=== PATIENT | female | born 1940 | race Caucasian/White ===

== ENCOUNTER 2017-10-24 09:47 | Emergency (ER) | payer MEDICARE, SELFPAY ==
[2017-10-24 09:49] VITALS: BP 166/85; PULSE 108; RESP 16; TEMP 36.6; O2SAT 97; BMI 34.0
[2017-10-24 10:12] VITALS: BP 151/108; PULSE 100; RESP 16; O2SAT 96
--- NOTE | 2017-10-24 10:19 | EKG12_ITS ---
Test Reason : HTN Blood Pressure : / mmHG Vent. Rate : 094 BPM Atrial Rate : 094 BPM P-R Int : 158 ms QRS Dur : 080 ms QT Int : 354 ms P-R-T Axes : 036 -03 026 degrees QTc Int : 442 ms Normal sinus rhythm Normal ECG Confirmed by ALEM ROTHMAN, HEATHER ([id number]), communications editor ANNA GÓMEZ ([id number]) on 10/27/2017 10:29:50 AM Referred By: TERRY Confirmed By:HEATHER FERRARA MD
[2017-10-24 10:51] LABS: Absolute Lymphocyte Count 1.13 X10^3/ul (0.83-4.51); Absolute Neutrophil Count 4.7 X10^3/uL (2.0-7.7); Basophil# 0.02 X10^3/uL; Basophil% 0.3 % (0-1); Eosinophil# 0.16 X10^3/uL; Eosinophils% 2.5 % (0-5); Hematocrit 40.3 % (37-47); Hemoglobin 12.7 g/dl (12.0-15.0); Lymphocyte # 1.13 X10^3/ul (4.0); Mean Corp Hgb Conc 31.5 g/gl (32-36); Mean Corpuscular Hgb 27.8 pg (27.0-32.0); Mean Corpuscular Volume 88.2 fL (81-99); Mean Platelet Vol. 9.8 fl (6.2-12.0); Monocyte# 0.21 X10^3/uL; Monocyte% 3.3 % (0-10); Neutrophil # 4.73 X10^3/uL (2.7-7.7); Neutrophil % 75.3 % (47-70); POSITIVE COUNT NO; POSITIVE DIFFERENTIAL NO; POSITIVE MORPHOLOGY NO; Platelet Count 186 K/mm3 (150-450); RBC Distribution Width CV 14.5 % (11.6-14.6); RBC Distribution Width SD 46.9 fl (35.1-43.9); Red Blood Count 4.57 M/mm3 (4.2-5.4); White Blood Count 6.3 K/mm3 (4.4-11.0)
[2017-10-24 10:59] LABS: Anion Gap 7 (5-15); BUN 37 mg/dL (7-18); BUN/Creat Ratio 27.2 RATIO (10-20); Calcium,Total 8.7 mg/dL (8.5-10.1); Chloride 105 mmol/L (98-107); Creatinine, Serum 1.36 mg/dL (0.55-1.02); EST Glomerular Filtration Rate 40 mL/min (>60); Est Glom Filt Rate - Afr Amer 49 mL/min (>60); Estimated Creatinine Clearance 36.78 ml/min; Glucose 244 mg/dL (74-106); Potassium 4.9 mmol/L (3.5-5.1); Sodium Level 141 mmol/L (136-145)
--- NOTE | 2017-10-24 11:31 | ED.VISSUMM ---
- ER Visit Summary Date of Service: 10/24/17 Chief Complaint: Low blood pressure History of Present Illness: The patient is a 76 F treated for insulin-dependent diabetes, A. fib and no history of renal insufficiency. Patient is not treated for hypertension. Her blood pressure today it seems low on several readings. With accelerated heart rate she called her swim coach's office who sent her to ER to be evaluated. Currently says she feels completely fine. She denies any headache, chest pain, shortness of breath, abdominal pain. She denies any nausea, vomiting or diarrhea. She denies any black or bloody stools. She is on Xarelto. Physical Examination: Well-appearing older female current blood pressure is 165/85 otherwise vital signs are stable. She is afebrile. H EENT exam unremarkable. Neck nontender. Lungs clear to auscultation bilaterally. Heart regular rhythm no murmur rate about 95. Abdomen is soft and nontender. Normal bowel sounds no peritoneal signs. She is moving all 4 extremities. They are neurovascularly intact. No edema. No calf tenderness. Neurologically she is awake and alert with no focal deficits. Patient basically has a completely normal exam with normal vital signs. Test Results: EKG shows a sinus rhythm rate of 94. CBC is unremarkable with a white count of 6 and a normal H&H. Chemistry panel shows a normal gap. A 7. Blood sugar 244. BUN and creatinine are 37 and 1.36 she has chronic renal insufficiency and is actually better than her baseline. Emergency Department Course and Treatment: Repeat exam she is doing well. And will be discharged to home. Treatment Plan: Continue current medications and follow up with her primary care physician as needed. Disposition: Discharge Impression: Transient hypotension resolved History of A. fib, diabetes and renal insufficiency This note was generated with [employer] dictation software. It may contain incorrect words, spelling, and punctuation that were not noted in review of the chart prior to signing ED Disposition - Plan for ED Patient: Chief Complaint: Hypotension Referrals: Stefan Gordon MD [Primary Care Provider] -
--- NOTE | 2017-10-24 11:34 | ED.DCSUM_ITS ---
- ER Visit Summary Date of Service: 10/24/17 Chief Complaint: Low blood pressure History of Present Illness: The patient is a 76 F treated for insulin-dependent diabetes, A. fib and no history of renal insufficiency. Patient is not treated for hypertension. Her blood pressure today it seems low on several readings. With accelerated heart rate she called her sales development consultant's office who sent her to ER to be evaluated. Currently says she feels completely fine. She denies any headache, chest pain, shortness of breath, abdominal pain. She denies any nausea, vomiting or diarrhea. She denies any black or bloody stools. She is on Xarelto. Physical Examination: Well-appearing older female current blood pressure is 165/ 85 otherwise vital signs are stable. She is afebrile. H EENT exam unremarkable. Neck nontender. Lungs clear to auscultation bilaterally. Heart regular rhythm no murmur rate about 95. Abdomen is soft and nontender. Normal bowel sounds no peritoneal signs. She is moving all 4 extremities. They are neurovascularly intact. No edema. No calf tenderness. Neurologically she is awake and alert with no focal deficits. Patient basically has a completely normal exam with normal vital signs. Test Results: EKG shows a sinus rhythm rate of 94. CBC is unremarkable with a white count of 6 and a normal H&H. Chemistry panel shows a normal gap. A 7. Blood sugar 244. BUN and creatinine are 37 and 1.36 she has chronic renal insufficiency and is actually better than her baseline. Emergency Department Course and Treatment: Repeat exam she is doing well. And will be discharged to home. Treatment Plan: Continue current medications and follow up with her primary care physician as needed. Disposition: Discharge Impression: Transient hypotension resolved History of A. fib, diabetes and renal insufficiency This note was generated with [employer] dictation software. It may contain incorrect words, spelling, and punctuation that were not noted in review of the chart prior to signing ED Disposition - Plan for ED Patient: Chief Complaint: Hypotension Referrals: Stefan Gordon MD [Primary Care Provider] -
--- NOTE | 2017-10-24 11:34 | ED.DEP ---
ED Disposition - Plan for ED Patient: Disposition: Home or Assisted Living Chief Complaint: Hypotension Instructions: ED Hypotension All Causes Referrals: Stefan Gordon MD [Primary Care Provider] - As Needed Additional Instructions: Return if feeling worse. Your labs and EKG today were all good.
[2017-10-24 11:50] VITALS: BP 125/72; PULSE 86; RESP 20; O2SAT 93
== END 2017-10-24 11:55 | disposition home or self-care (01) ==
PROVIDERS: Emergency Provider Emergency Medicine; Family Provider Family Medicine; PCP Family Medicine
DX: I95.9 Hypotension, unspecified (principal); I48.91 Unspecified atrial fibrillation; E11.22 Type 2 diabetes mellitus 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 chronic kidney disease; N18.9 Chronic kidney disease, unspecified; Z79.01 Long term (current) use of anticoagulants; Z79.4 Long term (current) use of insulin; Z79.899 Other long term (current) drug therapy
CPT/HCPCS: 80048; 85025; 93005; 99284; A4216

== ENCOUNTER 2018-01-05 01:33 | Inpatient (IN) | payer MEDICARE, SELFPAY ==
[2018-01-05] VITALS (13 sets, daily range): BP systolic 94–182; BP diastolic 49–84; PULSE 74–138; RESP 18–28; TEMP 36.4–38.2; O2SAT 93–97; BMI 37.0; BMI 34.6; BMI 34.7
--- NOTE | 2018-01-05 01:42 | ED.RN ---
RN CALLED FOR EKG, PULLED OLD EKG'S FOR
--- NOTE | 2018-01-05 02:01 | EKG12_ITS ---
Test Reason : SHORTNESS OF BREATH Blood Pressure : / mmHG Vent. Rate : 104 BPM Atrial Rate : 104 BPM P-R Int : 142 ms QRS Dur : 078 ms QT Int : 352 ms P-R-T Axes : 038 -08 021 degrees QTc Int : 462 ms Sinus tachycardia Voltage criteria for left ventricular hypertrophy Abnormal ECG Confirmed by ALEM ROTHMAN, HEATHER ([id number]), society editor ANNA GÓMEZ ([id number]) on 01/08/2018 2:27:15 PM Referred By: PETTY Confirmed By:HEATHER FERRARA MD
--- NOTE | 2018-01-05 02:01 | CT_ITS ---
STUDY: CT ABDOMEN AND PELVIS WITHOUT CONTRAST REASON FOR EXAM: Female, 77 years old. Shortness of breath and right-sided abdominal pain RADIATION DOSAGE (If Supplied By Facility): CTDIvol = ( 22.92 ) mGy, DLP = ( 1322.89 ) mGycm TECHNIQUE: Transaxial images were obtained from the dome of the diaphragm to the symphysis pubis without oral contrast, and without intravenous contrast. Sagittal and coronal images were reconstructed. Individualized dose optimization techniques were used for this CT. COMPARISON: None. FINDINGS: Minimal atelectasis at bilateral lung bases. Borderline cardiomegaly. No pericardial effusion. Hypoattenuated foci in the left lateral and right posterior hepatic segments, too small to characterize. Subtle high attenuation material layering in the dependent portion of the gallbladder with mild associated gallbladder distention. No pericholecystic fluid. Normal spleen. Normal pancreas. Normal bilateral adrenal glands. Normal right kidney. Normal left kidney. Normal bilateral ureters. Normal visualized stomach. Normal small intestine. Minimal diverticular disease of the sigmoid colonic segment without inflammation. The appendix is visualized and appears normal. Normal abdominal aorta. Normal inferior vena cava. Shotty retroperitoneal and root of the mesentery lymph nodes with mild associated fat stranding. Normal urinary bladder. Uterus and bilateral adnexa are unremarkable. Normal abdominal wall. Moderate multilevel degenerative change of the spine. CT/Abdomen/Pelvis without Cont IMPRESSION: 1. Sludge within a mildly distended gallbladder but without definitive evidence of acute cholecystitis. 2. Minimal sigmoid colonic diverticulosis with no CT evidence of acute diverticulitis. 3. Shotty retroperitoneal and root of the mesentery lymph nodes with subtle hazy fat stranding, potentially representing a mesenteric panniculitis. 4. Hypoattenuated foci in the liver which are too small to characterize but which likely represent cysts versus hemangiomas MR which could be further characterized by MR imaging of the liver.. Electronically Signed: Mat Lee MD at 3:40 EDT Tel , Service support ,
--- NOTE | 2018-01-05 02:05 | RAD_ITS ---
STUDY: X-RAY CHEST REASON FOR EXAM: Female, 77 years old. Shortness of breath TECHNIQUE: Single AP portable view of the chest. COMPARISON: 02/05/2015 FINDINGS: No airspace infiltration. Mild elevation of the left hemidiaphragm, unchanged. No pleural effusion or pneumothorax. Normal size heart. Normal mediastinum and radames. Normal visualized pulmonary arteries. Normal visualized aortic arch and descending thoracic aorta. There are diffuse degenerative changes of the visualized thoracic spine. Normal visualized ribs, clavicles, and shoulders. There is no demonstrated abnormality of the visualized soft tissue structures of the upper abdomen. RAD/Chest 1 View IMPRESSION: No evidence of acute cardiopulmonary disease. Electronically Signed: Mat Lee MD at 2:55 EDT Tel , Service support ,
[2018-01-05] MEDS: Morphine 4 MG/ML Syringe IV (02:17)
[2018-01-05] MEDS: 0.9% Normal Saline 1,000 ML 125 ML IV ×3 (02:17→16:19)
[2018-01-05] MEDS: Ondansetron 4 MG/2 ML Vial IV (02:17)
[2018-01-05 02:29] LABS: Absolute Lymphocyte Count 0.23 X10^3/ul (0.83-4.51); Absolute Neutrophil Count 13.3 X10^3/uL (2.0-7.7); Basophil# 0.01 X10^3/uL; Basophil% 0.1 % (0-1); Eosinophil# 0.02 X10^3/uL; Eosinophils% 0.1 % (0-5); Hematocrit 34.4 % (37-47); Hemoglobin 11.4 g/dl (12.0-15.0); Lymphocyte # 0.23 X10^3/ul (4.0); Lymphocyte % 1.7 % (19-41); Mean Corp Hgb Conc 33.1 g/gl (32-36); Mean Corpuscular Hgb 28.4 pg (27.0-32.0); Mean Corpuscular Volume 85.6 fL (81-99); Mean Platelet Vol. 10.8 fl (6.2-12.0); Monocyte# 0.12 X10^3/uL; Monocyte% 0.9 % (0-10); Neutrophil # 13.32 X10^3/uL (2.7-7.7); Neutrophil % 96.8 % (47-70); Platelet Count 261 K/mm3 (150-450); RBC Distribution Width CV 14.9 % (11.6-14.6); RBC Distribution Width SD 45.9 fl (35.1-43.9); Red Blood Count 4.02 M/mm3 (4.2-5.4); White Blood Count 13.8 K/mm3 (4.4-11.0)
[2018-01-05 02:30] LABS: Differential Indicated SCAN CRITERIA MET; POSITIVE COUNT NO; POSITIVE DIFFERENTIAL YES; POSITIVE MORPHOLOGY NO
[2018-01-05 02:47] LABS: AST(SGOT) 156 U/L (15-37); Alanine Aminotransfer ALT/SGPT 201 U/L (13-56); Albumin, Serum 2.9 g/dL (3.2-5.0); Alkaline Phosphatase 440 U/L (45-117); Anion Gap 8 (5-15); BUN 38 mg/dL (7-18); BUN/Creat Ratio 20.3 RATIO (10-20); Bilirubin, Direct 4.32 mg/dL (0.00-0.30); Calcium,Total 8.3 mg/dL (8.5-10.1); Chloride 99 mmol/L (98-107); Creatinine, Serum 1.87 mg/dL (0.55-1.02); EST Glomerular Filtration Rate 28 mL/min (>60); Est Glom Filt Rate - Afr Amer 34 mL/min (>60); Estimated Creatinine Clearance 23.59 ml/min; Globulin 4.5 g/dL (2.2-4.2); Glucose 378 mg/dL (74-106); Lipase 361 U/L (73-393); Potassium 4.4 mmol/L (3.5-5.1); Protein, Total 7.4 g/dL (6.4-8.2); Sodium Level 134 mmol/L (136-145)
[2018-01-05] MEDS: 0.9% Normal Saline 1,000 ML 1000 ML IV (03:15)
--- NOTE | 2018-01-05 03:54 | ED.VISSUMM ---
- ER Visit Summary Date of Service: 01/05/18 Chief Complaint: [] Right upper rib pain with shortness of breath History of Present Illness: The patient is a 77 F with right upper rib pain that has been taken her breath away since 10:11 PM. It comes and goes over last several days. She saw her physician spa assistant manager in the office today who manipulated her right rib. She stated that it helped and the pain went away and came back tonight. She tried 2 Tylenol earlier today. She had one episode of emesis tonight. She is on Xarelto history of remote A. fib. Physical Examination: [] Vital signs reviewed General: Well-nourished well-developed Head: Normocephalic atraumatic Eyes: Pupils equal round and reactive to light extraocular movements intact ENT: TMs clear no hemotympanum no trauma Neck: Nontender full range of motion Cardiovascular: Regular rate rhythm no murmurs normal S1-S2 Respiratory: No distress clear to auscultation bilaterally chest nontender Abdomen: Soft tender right upper quadrant epigastric. No guarding or rebound normal bowel sounds no masses Back: Nontender no CVA tenderness Extremities: Nontender active range of motion ?4 extremities no trauma Skin: Normal color no trauma Neuro alert oriented cranial nerves II through XII intact normal strength sensation reflexes Test Results: [] Emergency Department Course and Treatment: [] Lab work shows LFTs elevated with a total bili 5.3 direct bili 4.3. Lipase negative. CBC normal except white count 13.8. Left shift noted. Chemistries normal except sodium 134 creatinine 1.8. Glucose 378. Troponin negative. EKG shows sinus at 104 without ischemic findings. Chest x-ray shows nothing acute. CT abdomen pelvis shows sludge with a mildly distended gallbladder. No pericholecystic fluid. Liver shows hypoattenuated foci cyst versus hemangioma. At this time I think the patient likely has biliary colic with possible choledocholithiasis and possible cholecystitis. She was given a dose of Zosyn as well as Zofran and morphine and will be admitted for further evaluation and treatment by Dr. Bojorquez. Treatment Plan: [] Disposition: [] Impression: [] Biliary colic with suspected choledocholithiasis Chronic renal insufficiency This note was generated with [employer] software. It may contain incorrect words, spelling, and punctuation that were not noted in review of the chart prior to signing ED Disposition - Plan for ED Patient: Chief Complaint: Shortness of Breath Referrals: Stefan Gordon MD [Primary Care Provider] -
[2018-01-05] MEDS: Piperacil/Tazobactam 3.375 GM/50 ML ML IV ×3 (04:17→22:19)
[2018-01-05] MEDS: Insulin Lispro 100 UNIT/ML INSULN.PEN 10 UNIT SC (04:17)
[2018-01-05 05:26] LABS: Bedside Glucose 373 mg/dL (70-110)
--- NOTE | 2018-01-05 06:56 | ECHOD_ITS ---
Reason For Study: Congenital heart disease Procedure This was a 2D Doppler, Color Flow transthoracic echocardiogram. The exam was of adequate technical quality. Exam performed portable in patient room. Left Ventricle Normal LV size. Sigmoid septum. Mid cavitary false tendon noted. Left ventricular systolic function is normal. The estimated ejection fraction is 65 %. No regional wall motion abnormalities noted. Right Ventricle Normal RV size. Normal systolic function. Atria The left atrium is mildly enlarged. Normal right atrium. No doppler evidence for ASD. Mitral Valve There is mild mitral annular calcification. Normal mitral valve. Mild (1+) mitral valve insufficiency. Tricuspid Valve Normal tricuspid valve. Mild tricuspid valve insufficiency. Aortic Valve Trisinus/trileaflet aortic valve. Normal aortic valve. Pulmonic Valve The pulmonic valve is not well visualized. Trivial pulmonic valve insufficiency. Great Vessels Normal sized aortic root. Calcified aortic root. Pericardium/Pleural No pericardial effusion. MMode/2D Measurements & Calculations LVIDd: 3.2 cm IVSd: 1.9 cm Ao root diam: 3.0 cm LVIDs: 2.6 cm LVPWd: 0.95 cm LA dimension: 3.6 cm RVDd: 3.3 cm FS: 18.5 % LAV(MOD-bp): 77.1 ml LA A4 area: 23.2 cm2 RA A4 area: 12.7 cm2 LAV(MOD-bp) Indexed: 35.8 ml/m2 LAV(MOD-sp2): 78.8 ml LAV(MOD-sp4): 69.2 ml Doppler Measurements & Calculations MV E max cirilo: 74.0 cm/sec Lat Peak E' Cirilo: 8.6 cm/sec Med Peak E' Cirilo: 5.5 cm/sec MV A max cirilo: 104.6 cm/sec E/E' lat: 8.6 E/E' med: 13.5 MV E/A: 0.71 Ao V2 max: 140.1 cm/sec LV V1 max: 112.1 cm/sec PA V2 max: 100.8 cm/sec Ao max P.9 mmHg LV V1 max P.0 mmHg Interpretation Summary Left ventricular systolic function is normal. The estimated ejection fraction is 65 %. Sigmoid septum. Mid cavitary false tendon noted. The left atrium is mildly enlarged. There is mild mitral annular calcification. Mild (1+) mitral valve insufficiency. Mild tricuspid valve insufficiency. Trivial pulmonic valve insufficiency. Calcified aortic root. Diastolic function: considered indeterminate. Ordering Physician: Chrissy Zimmerman Referring Physician: Stefan Gordon Performed By: Patito Moraes RDCS
--- NOTE | 2018-01-05 07:00 | US_ITS ---
STUDY: ABDOMINAL ULTRASOUND - RIGHT UPPER QUADRANT REASON FOR VISIT: Female, 77 years old. CHOLECYSTITIS F/U CT DONE TODAY GENERAL INTERMITTENT ABD PAIN TECHNIQUE: Ultrasound evaluation of the right upper quadrant was performed with real-time and static silva-scale imaging. TECHNICAL QUALITY: Adequate. COMPARISON: CT earlier in the day FINDINGS: Liver: The liver measures 17.5 cm. There is normal echogenicity of the liver. The bile ducts are within normal limits. There is hepatic color flow. The direction of portal flow is hepatopetal. There is no demonstrated mass lesion. Gallbladder: Normal distended gallbladder. The gallbladder wall measures 3.0 mm. There is a negative sonographic Birch's sign. There is no pericholecystic fluid. There is gallbladder sludge and multiple stones. Common Bile Duct (C.B.D.): The common bile duct measures 4.8 mm. Pancreas: Normal size of the head, body and tail of the pancreas. There is normal echogenicity of the pancreas. There is no demonstrated pancreatic mass or cyst. Right Kidney: Normal size of the right kidney. The right kidney measures 10.2 cm. Normal renal cortex. The right cortex measures 1.7 cm. There is no demonstrated renal mass or cyst. There is no right hydronephrosis. US/Gallbladder IMPRESSION: There is gallbladder sludge and multiple stones. Electronically Signed: Ai Caruso MD at 12:35 EDT , Service support ,
[2018-01-05] MEDS: 0.9% Normal Saline 1,000 ML 999 ML IV (07:04)
--- NOTE | 2018-01-05 07:11 | PN_ITS ---
Vitals/I&O's: Vital Signs Temp Pulse Resp BP Pulse Ox 99.5 F H 98 20 H 94/50 L 93 01/05/18 06:25 01/05/18 06:25 01/05/18 06:25 01/05/18 06:25 01/05/18 06:25 Oxygen Delivery Method Room Air Weight: 227 lb 15.327 oz Body Mass Index (BMI) 34.6 Intake and Output for Last 24 Hours 01/03/18 01/04/18 01/05/18 23:59 23:59 23:59 Intake Total 966 / 966 Balance 966 / 966 Laboratory Results 01/05/18 05:14: POC Glucose 373 H Current Medications Acetaminophen (Tylenol) 650 mg PO Q6H PRN PRN PRN Reason: Non-cardiac pain (mod-severe) Hydrocodone Bitart/Acetaminophen ([place] 5mg-325mg) 1 - 2 tablet PO Q6H PRN PRN PRN Reason: Moderate-severe pain [facility] Amitriptyline HCl (Elavil) 20 mg PO QHS [facility] Carvedilol (Coreg) 50 mg PO BID [facility] Gabapentin (Neurontin) 300 mg PO 4X/DAY [facility] Hydralazine HCl (Apresoline Iv) 10 mg IV Q4H PRN PRN PRN Reason: SBP > 160 Sodium Chloride () 250 mls @ 15 mls/hr IV .[id number] PRN PRN Reason: SALINE FLUSH Sodium Chloride () 1,000 mls @ 75 mls/hr IV .[id number] [facility] Last Admin: 01/05/18 05:23 Dose: Not Given Sodium Chloride () 1,000 mls @ 999 mls/hr IV .Q1H1M ONE Stop: 01/05/18 07:53 Last Admin: 01/05/18 07:04 Dose: 999 mls/hr Sodium Chloride () 1,000 mls @ 125 mls/hr IV .Q8H [facility] Piperacillin Sod/Tazobactam Sod (Zosyn) 3.375 gm in 50 mls @ 12.5 mls/hr IV Q8 [facility] Pantoprazole Sodium 40 mg/ (Sodium Chloride) 110 mls @ 330 mls/hr IV Q12 [facility] Insulin Human Lispro (Humalog Kwikpen (Bkc)) 0 unit SC ACHS [facility] PRN Reason: Protocol Morphine Sulfate () 2 - 4 mg IV Q1H PRN PRN PRN Reason: SEVERE PAIN (6-1010) Morphine Sulfate () 2 - 4 mg IV Q1H PRN PRN PRN Reason: SEVERE PAIN (6-1010) Non-Formulary Medication (Insulin Glargine,Hum.Rec.Anlog) 20 unit SC QHS [facility] Ondansetron HCl (Zofran) 4 mg IV Q8H PRN PRN Sodium Chloride () 5 - 30 ml IV UD PRN PRN Reason: SALINE FLUSH Medical Necessity - Tobacco Use Smoking Status: Never smoker Assessment/Plan All Active Problems Dehydration (Acute) Diarrhea (Acute) TAWANDA (acute kidney injury) (Acute)
--- NOTE | 2018-01-05 07:51 | HP.PCM_ITS ---
History and Physical Date of Admission: 01/05/18 77 year old WF presents with intermittant right upper quadrant abdominal pain. Described as sharp in the right upper quadrant of the abdomen, 8- 10 on scale of 1-10 with 10 being the worst. Worst with deep breaths. Noted one episode two weeks ago, another a few days ago, and then had severe episode last night which prompted visit to ED. In ED, found to have elevated LFTs, and elevated WBC. Pain resolved with one dose of morphine. CT scan revealed sludge in gallbladder. US pending this morning. Does not have history of hypertension, but ED BP was 120/67. Presented to [facility] with systolic BP in 90s. Given IV bolus of fluid with some improvement. Hospitalists consulted for perioperative medical management. Patient on xarelto for chronic afib. fHistory of GERD, AF, anxiety, OA, DM2 neuro, CKD, PVD, chronic anticoag 09/27/16 nuclear stress test with ischemia, EF 67%. Hx afib controlled rate, on Xarelto. 11/10/17 hgba1c 6.8%. 09/02/17 BUN 26, creat 1.0 GFR 49. Has sister with gallbladder disease. ?? ? PAST MEDICAL HISTORY Acute gastritis without mention of hemorrhage ? Anemia, unspecified ? Anxiety state, unspecified ? Atrial fibrillation (HCC) ? B12 deficiency ? Diverticulosis of colon (without mention of hemorrhage) ? Esophageal reflux ? Generalized osteoarthrosis, unspecified site ? Gout ? Hemorrhage of gastrointestinal tract, unspecified ? Iron deficiency anemia, unspecified ? Migraine without aura ?has been quiescent since menopause. Other and unspecified hyperlipidemia ? Type II or unspecified type diabetes mellitus without mention of complication , uncontrolled ? ?? PAST SURGICAL HISTORY CARPAL TUNNEL 05/18 left COLONOSCOP W/ OR W/O [facility] SPEC? 04/14/2005 COLONOSCOP W/ OR W/O [facility] SPEC 01/21/2016 EGD W/O [facility] SPECIMEN W/BX ? PAST SURGICAL HISTORY OF ? 1967 right breast cyst benign PAST SURGICAL HISTORY OF 2010 Rt carpal tunnel PAST SURGICAL HISTORY OF ? 12/2016 cataract surgery right eye REMOVAL OF TONSILS,<12 Y/O TOTAL KNEE REPLACEMENT 07/23/2007 Knee replacement, total right CURRENT MEDICATIONS colestipol (COLESTID) 1 gram tablet Take 1 tablet by mouth twice daily with meals. Disp: 180 tablet Rfl: 3 VICTOZA 3-PATRICK 0.6 mg/0.1 mL (18 mg/3 mL) pnij INJECT 1.2 MG UNDER THE SKIN ONCE DAILY Disp: 18 mL Rfl: 3 amitriptyline (ELAVIL) 10 mg tablet TAKE 2 TABLETS DAILY AT BEDTIME Disp: 180 tablet Rfl: 2 lansoprazole (PREVACID) 30 mg capsule TAKE 1 CAPSULE EVERY MORNING BEFORE EATING Disp: 90 capsule Rfl: 3 carvedilol (COREG) 25 mg tablet TAKE 2 TABLETS TWICE A DAY Disp: 360 tablet Rfl: 3 XARELTO 15 mg tablet TAKE 1 TABLET DAILY WITH DINNER Disp: 90 tablet Rfl: 3 insulin glargine (LANTUS) 100 unit/mL (3 mL) inpn Inject 20 Units subcutaneously daily at bedtime. Disp: 15 Pen Rfl: 3 gabapentin (NEURONTIN) 300 mg capsule Take 1 capsule by mouth four times daily. Disp: 360 capsule Rfl: 3 glimepiride (AMARYL) 4 mg tablet Take 0.5 tablets by mouth once daily. Disp : 90 tablet Rfl: 3 allopurinol (ZYLOPRIM) 100 mg tablet Take 2 tablets by mouth once daily. Disp: 180 tablet Rfl: 3 Cholecalciferol, Vitamin D3, 1,000 unit cap Take 1 capsule by mouth once daily. Disp: 1 capsule Rfl: 0 psyllium Husk (FIBER-CAPS) 0.52 g ORAL capsule Take 2 capsules by mouth once daily. Disp: Rfl: 0 multivitamins w-iron(FLINTSTONES PLUS IRON CHEWABLE TAB) Take one(1) tablet daily with meal. Disp: Rfl: 0 colestipol (COLESTID) 1 gram tablet Take 1 tablet by mouth twice daily with meals. Disp: 60 tablet Rfl: 0 cyanocobalamin 1,000 mcg/mL soln INJECT 1 MILLILITER INTRAMUSCULARLY ONCE A MONTH Disp: 1 mL Rfl: 12 ? SOCIAL HISTORY Marital status: Single Spouse name: Years of education: Number of children: 0 ?Occupational History Occupation Employer Comment [employer] ?Social History Main Topics Smoking status: Never Smoker ? Smokeless tobacco: Never Used Alcohol use: No Drug use: No Sexual activity: Not Currently ? FAMILY HISTORY Heart Brother ? Cancer Maternal Grandfather ? Heart Mother ? Heart Father ? Cancer Paternal Grandfather sister had gallbladder removed ? ? REVIEW OF SYSTEMS: General - denies fevers, denies weight loss, denies anorexia Cardiovascular denies chest pain, denies history of heart attack Pulmonary has shortness of breath, denies coughing up blood Gastrointestinal as per HPI, denies blood in stools, has hiatal hernia with acid indigestion on PPI Neurological denies numbness/weakness of extremities, denies seizures, denies history of stroke Genitourinary denies burning with urination, denies blood in urine Hematological on xarelto, denies spontaneous/prolonged bleeding Skin denies open non healing wounds Musculoskeletal denies history of fractures, has hip and back pain, had knee replacement Endocrine has diabetes Psychological denies hallucinations PHYSICAL EXAM: BP 120/67 Pulse 84 Temp 100.7F Resp 20 Wt 100.7 kg (222 lb) SpO2 95% BMI 33.75 kg/m? Pleasant obese older woman in good spirits but moderate pain distress with movement. Alert and oriented all spheres. Normal affect and cognition. Speech normal. No deficits to learning or comprehension. Skin warm, dry, pink to lips and nailbeds. Normal turgor. Respirations regular and unlabored. HEENT WNL. TM's clear. Nose and oropharynx free from injection or lesion. No cervical lymph nodes. Thyroid non-tender, no masses. No JVD. Chest CTA. Heart regular with occasional ectopic. Chest wall tender along lower anterior ribs to posterior spine. TTPs lower thoracic. Abd: soft and obese, tender to deep palpation in the right upper quadrant but no peritoneal signs, normal bowel sounds Extrem: no clubbing, cyanosis, tr pitting edema ankles. Extremities are warm and pink with prompt capillary refill. ? IMPRESSION: presumed cholecystitis based upon symptoms - pending US gallbladder on xarelto ASSESSMENT/PLAN: admit as inpatient hospitalist consultation for medical management US gallbladder pending May need MRCP for elevated LFTs evaluation, if questionable US of gallbladder continue antibiotics for presumed cholecystitis IV hydration, NPO for now I have discussed above plan with patient and she is in agreement. I have answered all her questions to her satisfaction and I have asked if she has any questions and she states she has no further questions.
[2018-01-05 08:12] LABS: Magnesium 1.2 mg/dL (1.6-2.6)
[2018-01-05 08:16] LABS: Bedside Glucose 349 mg/dL (70-110)
[2018-01-05 08:20] LABS: Lactic Acid 1.4 mmol/L (0.4-2.0)
[2018-01-05] MEDS: Insulin Lispro 100 UNIT/ML INSULN.PEN SC (08:20)
[2018-01-05 08:21] LABS: Hemoglobin A1c 7.4 % (4.2-6.3)
[2018-01-05] MEDS: Gabapentin 300 MG Capsule PO ×4 (08:21→21:48)
--- NOTE | 2018-01-05 09:00 | PCM.CONS.GEN ---
Problem List (1) Abdominal pain Status: Acute Reason for Consult Date of Consultation: 01/05/18 Reason for Consultation: medical management History of Present Illness: The patient is a 77 year old F with a history of atrial fibrillation on Coumadin, hypertension, GERD, diabetes mellitus and CKD stage III. She was admitted by the ED on 01/05/2018 with complaint of right upper quadrant pain which started around midnight prior to presentation. Pain was sharp, nonradiating, rated about 9/10, with no aggravating or relieving factors. She had associated subjective fever and chills and also had nausea and vomiting. She denied any diarrhea. She also denied any yellowing of her eyes, and history of gallstones or color cystitis. She has not noticed any weight loss and denies any history of cancer. She had had similar pain the day prior to presentation and thought it was right upper rib pain and went to see her primary care doctor in his office. She says she had manipulation of her right rib done and subsequently she had an x-ray which showed everything was normal and pain subsided. Pain is adequately recurred around midnight she presented about 6 hours later. Vitals done in the ED showed temperature of 98.8F Fahrenheit, BP of 182/84, [place] of 107 and RR of 28. Labs showed elevated LFTs with total bilirubin of 5.3 and direct bilirubin of 4.3. Lipase was negative. CBC showed white cell count of 13.8 with left shift. Chemistries showed sodium of 134 and creatinine of 1.8 and glucose was 378. Initial troponins done was negative and EKG showed sinus tachycardia with left ventricular hypertrophy. Chest x-ray was negative and CT of the abdomen and pelvis showed sludge with a mildly distended gallbladder and no pericholecystic fluid; liver showed hypoattenuated foci cyst versus hemangioma. Patient was admitted under general surgery to be managed for possible choledocholithiasis with cholecystitis and was given a dose of 0%. Patient's blood pressure subsequently dropped to the 90s systolic and at the point hospitalist service was consulted for medical management. She was given a dose of IV fluid bolus 500 cc. . She still complaining of the right upper quadrant pain but said it was much better after being given pain meds. She complained of subjective fever and chills. Hasnt rahman any vomiting since admission. 12 point Review of systems otherwise negative. Xarelto. 2D echo ordered on account of hypotension. She denies any recent travel, any swelling in her lower extremities. Any chest pain associated with a drop in blood pressure or shortness of breath. [] Past Medical History Past Medical History (Chronic Problems): Chronic Problems Generalized anxiety disorder (Chronic) Generalized osteoarthritis (Chronic) Hyperlipidemia (Chronic) Type 2 diabetes mellitus (Chronic) Allergies iodine Allergy (Verified 01/05/18 01:34) Hives simvastatin Allergy (Verified 01/05/18 01:34) Other Home Medications: Ambulatory Orders Medication Instructions Recorded Allopurinol [Zyloprim] 200 mg PO DAILYCM 07/04/13 Amitriptyline HCl [Elavil] 20 mg PO QHS 07/04/13 Cholecalciferol (Vitamin D3) 1,000 unit PO DAILY 07/04/13 [Vitamin D3] Cyanocobalamin (Vitamin B-12) 1,000 mcg IM QMONTH 07/04/13 [Vitamin B-12] Gabapentin [Neurontin] 300 mg PO 4X/DAY 07/04/13 Glimepiride [Amaryl] 2 mg PO DAILY 07/04/13 Lansoprazole [Prevacid] 30 mg PO DAILY 07/04/13 Psyllium Husk [Metamucil] 2 cap PO LUNCH 07/05/13 Colestipol Tablet [Colestid Tablet] 1 gm PO BIDCM 02/05/15 Insulin Glargine,Hum.rec.anlog 20 unit SC QHS 02/05/15 [Lantus] Liraglutide [Victoza 2-Paulie] 1.2 mg SQ DAILY 02/05/15 Multivitamin with Iron [One Daily 1 each PO DAILY 02/05/15 Plus Iron] Carvedilol [Coreg (Beta Aminah)] 50 mg PO BID 01/05/18 Rivaroxaban [Xarelto] 15 mg PO QHS 01/05/18 Surgical History: total knee arthroplasty, - - OZ, cyst removal from the breast which was benign, tonsillectomy Smoking Status: Never smoker - *Family History Paternal History Items: Heart Disease Review of Systems Constitutional: Reports: Chills, Fever. Denies: Anorexia, Malaise, Weakness Eyes: Denies: Blurred vision HEENT: Denies: Head Aches, Sinus Congestion, Sinus Drainage Cardiovascular: Denies: Chest Pain, Edema, Light Headedness, Orthopnea, Palpitations, Paroxysmal Noc. Dyspnea Respiratory: Denies: Cough, Pleuritic Pain, Shortness of Breath, Shortness of breath at rest, Sputum production Gastrointestinal: Reports: Abdominal Pain - RUQ pain, Nausea, Vomiting. Denies: Diarrhea, Dyspepsia, Hematemesis, Melena Genitourinary: Denies: Dysuria Musculoskeletal: Denies: Joint Pain, Joint Tenderness Skin: Denies: Jaundice, Rash, Wounds Neurological: Denies: Numbness, Tingling, Focal weakness Psychiatric: Denies: Anxiety, Depression, Homicidal Ideations, Suicidal Ideations Hematologic/ Lymphatic: Denies: Easy Bruising, Easy Bleeding Patient Problems: Active and Suspected Problems Abdominal pain (Acute) - Physical Exam General: Alert, Oriented x3, Cooperative, No apparent distress HEENT: Atraumatic, PERRLA, EOMI, Normocephalic, - - jaundiced sclera Oral: Dry Mucosa Neck: Supple, No JVD, Negative Carotid Bruits Lungs: Clear to auscultation, Normal air movement, No rhonchi, No wheeze, No rales Cardiovascular: Regular rate, Regular Rhythm, Normal S1, Normal S2, No murmurs Abdomen: Bowel Sounds Present, Soft, Non Tender, Non-Distended, No Hepato-splenomegaly, - - Birch's sign negative Extremities: No clubbing, No cyanosis, No edema, Capillary Refill Less than 3 Seconds Skin: No rashes, No breakdown, - - tinge of jaundice Musculoskeletal: No Tenderness to Palpation of Joints or Extremities Lymphatic: No Cervical, Supraclavicular, or Inguinal Adenopathy Neurological: Cranial nerves II-XII grossly intact, Motor Exam 5/5 strength throughout Psych/Mental Status: Normal Affect, Appropriate, Alert and oriented to time, place, person, mood and affect Vital Signs Temp Pulse Resp BP Pulse Ox 98.6 F 94 18 114/64 95 01/05/18 07:43 01/05/18 08:25 01/05/18 07:43 01/05/18 08:25 01/05/18 07:43 Oxygen Delivery Method Room Air Weight: 227 lb 15.327 oz Body Mass Index (BMI) 34.6 Intake and Output for Last 24 Hours 01/03/18 01/04/18 01/05/18 23:59 23:59 23:59 Intake Total 966 / 966 Output Total 100 / 100 Balance 866 / 866 Laboratory Tests Past 24 Hrs 01/05/18 01/05/18 01/05/18 07:15 07:15 07:15 Hemoglobin A1c 7.4 H Lactic Acid 1.4 Magnesium 1.2 L POC Glucose 01/05/18 01/05/18 08:02 05:14 POC Glucose 349 H 373 H Laboratory Tests 01/05/18 01/05/18 01/05/18 02:19 02:19 05:14 WBC 13.8 H RBC 4.02 L Hgb 11.4 L Hct 34.4 L MCV 85.6 MCH 28.4 MCHC 33.1 RDW 14.9 H RDW Differential 45.9 H Plt Count 261 MPV 10.8 Immature Gran % (Auto) 0.400 Neut % (Auto) 96.8 H Lymph % (Auto) 1.7 L [place] % (Auto) 0.9 Eos % (Auto) 0.1 Baso % (Auto) 0.1 Absolute Neuts (auto) 13.3 H Absolute Lymphs (auto) 0.23 L Total Counted Not Reportable Sodium 134 L Potassium 4.4 Chloride 99 Carbon Dioxide 27.0 Anion Gap 8 BUN 38 H Creatinine 1.87 H Estim Creat Clear Calc 23.59 Est GFR (MDRD) Af Amer 34 L Est GFR (MDRD) Non-Af 28 L BUN/Creatinine Ratio 20.3 H Glucose 378 H Hemoglobin A1c Lactic Acid Calcium 8.3 L Magnesium Total Bilirubin 5.30 H Direct Bilirubin 4.32 H AST 156 H ALT 201 H Alkaline Phosphatase 440 H Troponin I < 0.015 Total Protein 7.4 Albumin 2.9 L Globulin 4.5 H Lipase 361 POC Glucose 373 H 01/05/18 01/05/18 01/05/18 07:15 07:15 07:15 WBC RBC Hgb Hct MCV MCH MCHC RDW RDW Differential Plt Count MPV Immature Gran % (Auto) Neut % (Auto) Lymph % (Auto) [place] % (Auto) Eos % (Auto) Baso % (Auto) Absolute Neuts (auto) Absolute Lymphs (auto) Total Counted Sodium Potassium Chloride Carbon Dioxide Anion Gap BUN Creatinine Estim Creat Clear Calc Est GFR (MDRD) Af Amer Est GFR (MDRD) Non-Af BUN/Creatinine Ratio Glucose Hemoglobin A1c 7.4 H Lactic Acid 1.4 Calcium Magnesium 1.2 L Total Bilirubin Direct Bilirubin AST ALT Alkaline Phosphatase Troponin I Total Protein Albumin Globulin Lipase POC Glucose 01/05/18 08:02 WBC RBC Hgb Hct MCV MCH MCHC RDW RDW Differential Plt Count MPV Immature Gran % (Auto) Neut % (Auto) Lymph % (Auto) [place] % (Auto) Eos % (Auto) Baso % (Auto) Absolute Neuts (auto) Absolute Lymphs (auto) Total Counted Sodium Potassium Chloride Carbon Dioxide Anion Gap BUN Creatinine Estim Creat Clear Calc Est GFR (MDRD) Af Amer Est GFR (MDRD) Non-Af BUN/Creatinine Ratio Glucose Hemoglobin A1c Lactic Acid Calcium Magnesium Total Bilirubin Direct Bilirubin AST ALT Alkaline Phosphatase Troponin I Total Protein Albumin Globulin Lipase POC Glucose 349 H Diagnostic Data Abdomen/Pelvis CT 01/05/18 02:01 IMPRESSION: 1. Sludge within a mildly distended gallbladder but without definitive evidence of acute cholecystitis. 2. Minimal sigmoid colonic diverticulosis with no CT evidence of acute diverticulitis. 3. Shotty retroperitoneal and root of the mesentery lymph nodes with subtle hazy fat stranding, potentially representing a mesenteric panniculitis. 4. Hypoattenuated foci in the liver which are too small to characterize but which likely represent cysts versus hemangiomas MR which could be further characterized by MR imaging of the liver.. Electronically Signed: Mat Lee MD at 3:40 EDT Tel , Service support , Chest X-Ray 01/05/18 02:05 IMPRESSION: No evidence of acute cardiopulmonary disease. Electronically Signed: Mat Lee MD at 2:55 EDT Tel , Service support , Assessment/Plan All Active Problems Abdominal pain (Acute) Dehydration (Acute) Diarrhea (Acute) TAWANDA (acute kidney injury) (Acute) 1. Acute choledocholithiasis and cholecycstitis genral surgery on board CT showed sludge in the gallbladder LFTs: Total kane-5.1, direct kane 4.3, gallbladder USG pending wbc also elevated at 13.8 on IV antibiotics-zosyn NPO, being hydrated with IVF NS @ 125cc/hr may benefit from MRCP per surgery, based on gallbladder findings on IV morphine for pain 2. Paroxysmal A. fib On Xarelto. Last took it night. Will hold Xarelto in anticipation of surgery for cholecystitis. Was tachycardic on admission. EKG showed sinus tachycardia with left ventricular hypertrophy criteria. BP meds on hold on account of hypotension- Coreg, 3. Hypotension: cause unclear. BP went down to 90s from 180s on admission. Improved with IV fluid administration. Currently being hydrated with IV fluids. 4. Diabetes mellitus Currently n.p.o. Accu-Cheks q6 ISS; will hold lantus 20IU qhs 5. history of gout: stable. On allopurinol 6. ?CHF patient denies she has CHF, but it is documented in her notes echo ordered o/a of hypotension, and also to assess cardiac function before surgery 7. GI prophylaxis: pantoprazole 8. DVT prophylaxis: PCDs thank You for the courtesy of the consult. We will continue to follow with you. This note was generated with [employer] dictation software. It may contain incorrect words, spelling, and punctuation that were not noted in checking the note before signing. Code Visit Inpatient E&M: 85499 Subs Hosp L3
--- NOTE | 2018-01-05 09:07 | CON.PCM_ITS ---
Problem List (1) Abdominal pain Status: Acute Reason for Consult Date of Consultation: 01/05/18 Reason for Consultation: medical management History of Present Illness: The patient is a 77 year old F with a history of atrial fibrillation on Coumadin , hypertension, GERD, diabetes mellitus and CKD stage III. She was admitted by the ED on 01/05/2018 with complaint of right upper quadrant pain which started around midnight prior to presentation. Pain was sharp, nonradiating, rated about 9/10, with no aggravating or relieving factors. She had associated subjective fever and chills and also had nausea and vomiting. She denied any diarrhea. She also denied any yellowing of her eyes, and history of gallstones or color cystitis. She has not noticed any weight loss and denies any history of cancer. She had had similar pain the day prior to presentation and thought it was right upper rib pain and went to see her primary care doctor in his office. She says she had manipulation of her right rib done and subsequently she had an x-ray which showed everything was normal and pain subsided. Pain is adequately recurred around midnight she presented about 6 hours later. Vitals done in the ED showed temperature of 98.8F Fahrenheit, BP of 182/84, [place] of 107 and RR of 28. Labs showed elevated LFTs with total bilirubin of 5.3 and direct bilirubin of 4.3. Lipase was negative. CBC showed white cell count of 13.8 with left shift. Chemistries showed sodium of 134 and creatinine of 1.8 and glucose was 378. Initial troponins done was negative and EKG showed sinus tachycardia with left ventricular hypertrophy. Chest x-ray was negative and CT of the abdomen and pelvis showed sludge with a mildly distended gallbladder and no pericholecystic fluid; liver showed hypoattenuated foci cyst versus hemangioma. Patient was admitted under general surgery to be managed for possible choledocholithiasis with cholecystitis and was given a dose of 0%. Patient's blood pressure subsequently dropped to the 90s systolic and at the point hospitalist service was consulted for medical management. She was given a dose of IV fluid bolus 500 cc. . She still complaining of the right upper quadrant pain but said it was much better after being given pain meds. She complained of subjective fever and chills. Hasnt rahman any vomiting since admission. 12 point Review of systems otherwise negative. Xarelto. 2D echo ordered on account of hypotension. She denies any recent travel, any swelling in her lower extremities. Any chest pain associated with a drop in blood pressure or shortness of breath. [] Past Medical History Past Medical History (Chronic Problems): Chronic Problems Generalized anxiety disorder (Chronic) Generalized osteoarthritis (Chronic) Hyperlipidemia (Chronic) Type 2 diabetes mellitus (Chronic) Allergies iodine Allergy (Verified 01/05/18 01:34) Hives simvastatin Allergy (Verified 01/05/18 01:34) Other Home Medications: Ambulatory Orders Medication Instructions Recorded Allopurinol [Zyloprim] 200 mg PO DAILYCM 07/04/13 Amitriptyline HCl [Elavil] 20 mg PO QHS 07/04/13 Cholecalciferol (Vitamin D3) 1,000 unit PO DAILY 07/04/13 [Vitamin D3] Cyanocobalamin (Vitamin B-12) 1,000 mcg IM QMONTH 07/04/13 [Vitamin B-12] Gabapentin [Neurontin] 300 mg PO 4X/DAY 07/04/13 Glimepiride [Amaryl] 2 mg PO DAILY 07/04/13 Lansoprazole [Prevacid] 30 mg PO DAILY 07/04/13 Psyllium Husk [Metamucil] 2 cap PO LUNCH 07/05/13 Colestipol Tablet [Colestid Tablet] 1 gm PO BIDCM 02/05/15 Insulin Glargine,Hum.rec.anlog 20 unit SC QHS 02/05/15 [Lantus] Liraglutide [Victoza 2-Paulie] 1.2 mg SQ DAILY 02/05/15 Multivitamin with Iron [One Daily 1 each PO DAILY 02/05/15 Plus Iron] Carvedilol [Coreg (Beta Aminah)] 50 mg PO BID 01/05/18 Rivaroxaban [Xarelto] 15 mg PO QHS 01/05/18 Surgical History: total knee arthroplasty, - - OZ, cyst removal from the breast which was benign, tonsillectomy Smoking Status: Never smoker - *Family History Paternal History Items: Heart Disease Review of Systems Constitutional: Reports: Chills, Fever. Denies: Anorexia, Malaise, Weakness Eyes: Denies: Blurred vision HEENT: Denies: Head Aches, Sinus Congestion, Sinus Drainage Cardiovascular: Denies: Chest Pain, Edema, Light Headedness, Orthopnea, Palpitations, Paroxysmal Noc. Dyspnea Respiratory: Denies: Cough, Pleuritic Pain, Shortness of Breath, Shortness of breath at rest, Sputum production Gastrointestinal: Reports: Abdominal Pain - RUQ pain, Nausea, Vomiting. Denies : Diarrhea, Dyspepsia, Hematemesis, Melena Genitourinary: Denies: Dysuria Musculoskeletal: Denies: Joint Pain, Joint Tenderness Skin: Denies: Jaundice, Rash, Wounds Neurological: Denies: Numbness, Tingling, Focal weakness Psychiatric: Denies: Anxiety, Depression, Homicidal Ideations, Suicidal Ideations Hematologic/ Lymphatic: Denies: Easy Bruising, Easy Bleeding Patient Problems: Active and Suspected Problems Abdominal pain (Acute) - Physical Exam General: Alert, Oriented x3, Cooperative, No apparent distress HEENT: Atraumatic, PERRLA, EOMI, Normocephalic, - - jaundiced sclera Oral: Dry Mucosa Neck: Supple, No JVD, Negative Carotid Bruits Lungs: Clear to auscultation, Normal air movement, No rhonchi, No wheeze, No rales Cardiovascular: Regular rate, Regular Rhythm, Normal S1, Normal S2, No murmurs Abdomen: Bowel Sounds Present, Soft, Non Tender, Non-Distended, No Hepato- splenomegaly, - - Birch's sign negative Extremities: No clubbing, No cyanosis, No edema, Capillary Refill Less than 3 Seconds Skin: No rashes, No breakdown, - - tinge of jaundice Musculoskeletal: No Tenderness to Palpation of Joints or Extremities Lymphatic: No Cervical, Supraclavicular, or Inguinal Adenopathy Neurological: Cranial nerves II-XII grossly intact, Motor Exam 5/5 strength throughout Psych/Mental Status: Normal Affect, Appropriate, Alert and oriented to time, place, person, mood and affect Vital Signs Temp Pulse Resp BP Pulse Ox 98.6 F 94 18 114/64 95 01/05/18 07:43 01/05/18 08:25 01/05/18 07:43 01/05/18 08:25 01/05/18 07:43 Oxygen Delivery Method Room Air Weight: 227 lb 15.327 oz Body Mass Index (BMI) 34.6 Intake and Output for Last 24 Hours 01/03/18 01/04/18 01/05/18 23:59 23:59 23:59 Intake Total 966 / 966 Output Total 100 / 100 Balance 866 / 866 Laboratory Tests Past 24 Hrs 01/05/18 01/05/18 01/05/18 07:15 07:15 07:15 Hemoglobin A1c 7.4 H Lactic Acid 1.4 Magnesium 1.2 L POC Glucose 01/05/18 01/05/18 08:02 05:14 POC Glucose 349 H 373 H Laboratory Tests 01/05/18 01/05/18 01/05/18 02:19 02:19 05:14 WBC 13.8 H RBC 4.02 L Hgb 11.4 L Hct 34.4 L MCV 85.6 MCH 28.4 MCHC 33.1 RDW 14.9 H RDW Differential 45.9 H Plt Count 261 MPV 10.8 Immature Gran % (Auto) 0.400 Neut % (Auto) 96.8 H Lymph % (Auto) 1.7 L [place] % (Auto) 0.9 Eos % (Auto) 0.1 Baso % (Auto) 0.1 Absolute Neuts (auto) 13.3 H Absolute Lymphs (auto) 0.23 L Total Counted Not Reportable Sodium 134 L Potassium 4.4 Chloride 99 Carbon Dioxide 27.0 Anion Gap 8 BUN 38 H Creatinine 1.87 H Estim Creat Clear Calc 23.59 Est GFR (MDRD) Af Amer 34 L Est GFR (MDRD) Non-Af 28 L BUN/Creatinine Ratio 20.3 H Glucose 378 H Hemoglobin A1c Lactic Acid Calcium 8.3 L Magnesium Total Bilirubin 5.30 H Direct Bilirubin 4.32 H AST 156 H ALT 201 H Alkaline Phosphatase 440 H Troponin I < 0.015 Total Protein 7.4 Albumin 2.9 L Globulin 4.5 H Lipase 361 POC Glucose 373 H 01/05/18 01/05/18 01/05/18 07:15 07:15 07:15 WBC RBC Hgb Hct MCV MCH MCHC RDW RDW Differential Plt Count MPV Immature Gran % (Auto) Neut % (Auto) Lymph % (Auto) [place] % (Auto) Eos % (Auto) Baso % (Auto) Absolute Neuts (auto) Absolute Lymphs (auto) Total Counted Sodium Potassium Chloride Carbon Dioxide Anion Gap BUN Creatinine Estim Creat Clear Calc Est GFR (MDRD) Af Amer Est GFR (MDRD) Non-Af BUN/Creatinine Ratio Glucose Hemoglobin A1c 7.4 H Lactic Acid 1.4 Calcium Magnesium 1.2 L Total Bilirubin Direct Bilirubin AST ALT Alkaline Phosphatase Troponin I Total Protein Albumin Globulin Lipase POC Glucose 01/05/18 08:02 WBC RBC Hgb Hct MCV MCH MCHC RDW RDW Differential Plt Count MPV Immature Gran % (Auto) Neut % (Auto) Lymph % (Auto) [place] % (Auto) Eos % (Auto) Baso % (Auto) Absolute Neuts (auto) Absolute Lymphs (auto) Total Counted Sodium Potassium Chloride Carbon Dioxide Anion Gap BUN Creatinine Estim Creat Clear Calc Est GFR (MDRD) Af Amer Est GFR (MDRD) Non-Af BUN/Creatinine Ratio Glucose Hemoglobin A1c Lactic Acid Calcium Magnesium Total Bilirubin Direct Bilirubin AST ALT Alkaline Phosphatase Troponin I Total Protein Albumin Globulin Lipase POC Glucose 349 H Diagnostic Data Abdomen/Pelvis CT 01/05/18 02:01 IMPRESSION: 1. Sludge within a mildly distended gallbladder but without definitive evidence of acute cholecystitis. 2. Minimal sigmoid colonic diverticulosis with no CT evidence of acute diverticulitis. 3. Shotty retroperitoneal and root of the mesentery lymph nodes with subtle hazy fat stranding, potentially representing a mesenteric panniculitis. 4. Hypoattenuated foci in the liver which are too small to characterize but which likely represent cysts versus hemangiomas MR which could be further characterized by MR imaging of the liver.. Electronically Signed: Mat Lee MD at 3:40 EDT Tel , Service support , Chest X-Ray 01/05/18 02:05 IMPRESSION: No evidence of acute cardiopulmonary disease. Electronically Signed: Mat Lee MD at 2:55 EDT Tel , Service support , Assessment/Plan All Active Problems Abdominal pain (Acute) Dehydration (Acute) Diarrhea (Acute) TAWANDA (acute kidney injury) (Acute) 1. Acute choledocholithiasis and cholecycstitis * genral surgery on board * CT showed sludge in the gallbladder * LFTs: Total kane-5.1, direct kane 4.3, * gallbladder USG pending * wbc also elevated at 13.8 * on IV antibiotics-zosyn * NPO, being hydrated with IVF NS @ 125cc/hr * may benefit from MRCP per surgery, based on gallbladder findings * on IV morphine for pain * 2. Paroxysmal A. fib * On Xarelto. Last took it night. Will hold Xarelto in anticipation of surgery for cholecystitis. * Was tachycardic on admission. EKG showed sinus tachycardia with left ventricular hypertrophy criteria. * BP meds on hold on account of hypotension- Coreg, * 3. Hypotension: cause unclear. BP went down to 90s from 180s on admission. Improved with IV fluid administration. Currently being hydrated with IV fluids. 4. Diabetes mellitus * Currently n.p.o. Accu-Cheks q6 * ISS; will hold lantus 20IU qhs * 5. history of gout: stable. On allopurinol 6. ?CHF * patient denies she has CHF, but it is documented in her notes * echo ordered o/a of hypotension, and also to assess cardiac function before surgery 7. GI prophylaxis: pantoprazole 8. DVT prophylaxis: PCDs thank You for the courtesy of the consult. We will continue to follow with you. This note was generated with [employer] dictation software. It may contain incorrect words, spelling, and punctuation that were not noted in checking the note before signing. Code Visit Inpatient E&M: 16658 Subs Hosp L3
--- NOTE | 2018-01-05 11:45 | CASEMGMT ---
RN CM attempted to complete Face to Face at this time. Patient out of room at ultrasound. RN CM will attempt assessment at later time.
[2018-01-05] MEDS: Allopurinol 100 MG Tablet 200 MG PO (12:17)
[2018-01-05] MEDS: Insulin Lispro 100 UNIT/ML INSULN.PEN SQ ×2 (12:18→16:20)
[2018-01-05 12:25] LABS: Bedside Glucose 325 mg/dL (70-110)
--- NOTE | 2018-01-05 12:43 | CASEMGMT ---
Tertiary hospitals in-network with Jose MCR: [facility], [facility], [facility], [facility], [facility], [facility].
[2018-01-05] MEDS: 0.9% NaCl IVPB Med Flush (250 mL) 15 ML IV (14:11)
--- NOTE | 2018-01-05 15:46 | NURSING ---
OR medical office scheduler called to floor, stated that pt is on the schedule for surgery on monday 01/08 she is to present here at 1:15 and surgery would be an hour and a half later
[2018-01-05 16:20] LABS: Bedside Glucose 210 mg/dL (70-110)
--- NOTE | 2018-01-05 16:56 | CHAPLAIN ---
Type of Pastoral Visit _x__ Initial Visit ___ Follow-up Visit ___ On-call Visit ___ General Patient Visit ___ Spiritual Assessment ___ Family Conference ___ Bereavement ___ Rapid Response ___ Code Blue ___ Other (describe below) Pastoral Care Referral From _x__ Patient ___ Family ___ Nurse ___ Physician ___ Wet And Dry Sugar Bin Operator ___ Coremaker Bench ___ Other (describe below) Sacrament/Intervention _x__ Active listening ___ Anointing ___ Evangelical ___ Bereavement ___ Communion ___ Brigida exploration ___ ___ Life review _x__ Prayer ___ Reconciliation ___ Sacrament of Sick ___ Supportive presence ___ Wedding ___ Other (describe below) Pastoral Comments
[2018-01-05] MEDS: Amitriptyline 10 MG Tablet 20 MG PO (21:48)
[2018-01-05] MEDS: Metoprolol Tartrate 5 MG/5 ML Vial IV (23:05)
[2018-01-06] VITALS (33 sets, daily range): BP systolic 86–125; BP diastolic 53–91; PULSE 60–141; RESP 16–24; TEMP 36.2–37.3; O2SAT 89–100
[2018-01-06] MEDS: Insulin Lispro 100 UNIT/ML INSULN.PEN SQ ×5 (00:11→21:42)
[2018-01-06] MEDS: 0.9% Normal Saline 1,000 ML 125 ML IV ×4 (00:11→20:22)
[2018-01-06 00:21] LABS: Bedside Glucose 159 mg/dL (70-110)
[2018-01-06] MEDS: Carvedilol 25 MG Tablet 50 MG PO (00:28)
[2018-01-06] MEDS: 0.9% NaCl Peripheral Flush Adult/Peds IV ×2 (04:24→05:14)
--- NOTE | 2018-01-06 04:25 | NURSING ---
Report called to Deanne in PCU.
--- NOTE | 2018-01-06 04:29 | NURSING ---
Patients sister Claudette called and notified about patients transfer to PCU room 112.
--- NOTE | 2018-01-06 04:30 | NURSING ---
Pt transferred to PCU for uncontrolled A-fib with rate varying from 120-150's.
--- NOTE | 2018-01-06 04:31 | NURSING ---
This RN spoke with patients ray Andrade to update her on patient being moved to PCU room 112.
[2018-01-06] MEDS: Piperacil/Tazobactam 3.375 GM/50 ML ML IV ×3 (05:01→22:52)
[2018-01-06] MEDS: Acetaminophen 325 MG Tablet 650 MG PO (06:16)
[2018-01-06 06:26] LABS: Bedside Glucose 209 mg/dL (70-110)
--- NOTE | 2018-01-06 06:41 | NURSING ---
DR. BRAGG CALLED AND NOTIFIED THIS AM OF PATIENTS TRANSFER TO PCU ROOM 112.
[2018-01-06] MEDS: Allopurinol 100 MG Tablet 200 MG PO (08:14)
[2018-01-06] MEDS: Gabapentin 300 MG Capsule PO ×4 (08:14→21:41)
[2018-01-06 08:19] LABS: Absolute Lymphocyte Count 1.11 X10^3/ul (0.83-4.51); Absolute Neutrophil Count 8.7 X10^3/uL (2.0-7.7); Basophil# 0.02 X10^3/uL; Basophil% 0.2 % (0-1); Eosinophil# 0.18 X10^3/uL; Eosinophils% 1.7 % (0-5); Hematocrit 30.3 % (37-47); Hemoglobin 9.9 g/dl (12.0-15.0); Lymphocyte # 1.11 X10^3/ul (4.0); Lymphocyte % 10.6 % (19-41); Mean Corp Hgb Conc 32.7 g/gl (32-36); Mean Corpuscular Hgb 28.3 pg (27.0-32.0); Mean Corpuscular Volume 86.6 fL (81-99); Mean Platelet Vol. 11.1 fl (6.2-12.0); Monocyte# 0.41 X10^3/uL; Monocyte% 3.9 % (0-10); Neutrophil # 8.69 X10^3/uL (2.7-7.7); Neutrophil % 83.4 % (47-70); Platelet Count 203 K/mm3 (150-450); RBC Distribution Width SD 46.1 fl (35.1-43.9); White Blood Count 10.4 K/mm3 (4.4-11.0)
[2018-01-06 08:22] LABS: POSITIVE COUNT NO; POSITIVE DIFFERENTIAL NO; POSITIVE MORPHOLOGY NO
[2018-01-06 08:33] LABS: Magnesium 2.3 mg/dL (1.6-2.6)
[2018-01-06 08:37] LABS: ALB/GLOB Ratio 0.6 RATIO (0.9-2.4); AST(SGOT) 47 U/L (15-37); Alanine Aminotransfer ALT/SGPT 108 U/L (13-56); Albumin, Serum 2.1 g/dL (3.2-5.0); Alkaline Phosphatase 282 U/L (45-117); Anion Gap 8 (5-15); BUN 28 mg/dL (7-18); BUN/Creat Ratio 20.1 RATIO (10-20); Calcium,Total 7.7 mg/dL (8.5-10.1); Chloride 108 mmol/L (98-107); Creatinine, Serum 1.39 mg/dL (0.55-1.02); EST Glomerular Filtration Rate 39 mL/min (>60); Est Glom Filt Rate - Afr Amer 47 mL/min (>60); Estimated Creatinine Clearance 34.19 ml/min; Globulin 3.7 g/dL (2.2-4.2); Glucose 207 mg/dL (74-106); Potassium 4.1 mmol/L (3.5-5.1); Protein, Total 5.8 g/dL (6.4-8.2); Sodium Level 140 mmol/L (136-145)
--- NOTE | 2018-01-06 10:01 | PCM.PN.HOSP ---
Patient Problems: Active and Suspected Problems Abdominal pain (Acute) Atrial fibrillation (Acute) Cholecystitis with cholelithiasis (Acute) Subjective: Patient seen and examined. She had to be started on IV amiodarone drip overnight on account of elevated heart rate. Patient denies any dizziness or lightheadedness was eating breakfast comfortably. She does remain jaundiced though she denies any cola like urine and any fever or chills. Abdominal pain is also improved. Labs and vitals reviewed. Radiology was consulted on account of elevated heart rate. Vitals/I&O's: Vital Signs Temp Pulse Resp BP Pulse Ox 97.6 F L 113 H 20 H 90/59 L 97 01/06/18 08:00 01/06/18 08:00 01/06/18 08:00 01/06/18 08:00 01/06/18 08:00 Oxygen Delivery Method Room Air Weight: 227 lb 15.327 oz Body Mass Index (BMI) 34.6 Intake and Output for Last 24 Hours 01/04/18 01/05/18 01/06/18 23:59 23:59 23:59 Intake Total 4090 / 4090 148.4 / 148.4 Output Total 900 / 900 Balance 3190 / 3190 148.4 / 148.4 General: Alert, Oriented x3, Cooperative, No apparent distress HEENT: Atraumatic, PERRLA, EOMI, Normocephalic, - - jaundiced sclera Oral: Moist Mucosa Neck: Supple, No JVD, Negative Carotid Bruits Lungs: Clear to auscultation, Normal air movement, No rhonchi, No wheeze, No rales Cardiovascular: Regular Rhythm, Normal S1, Normal S2, No murmurs, Tachycardic Abdomen: Bowel Sounds Present, Soft, Non Tender, Non-Distended, No Hepato-splenomegaly Extremities: No clubbing, No cyanosis, No edema, Capillary Refill Less than 3 Seconds Skin: - - jaundiced skin Musculoskeletal: No Tenderness to Palpation of Joints or Extremities Lymphatic: No Cervical, Supraclavicular, or Inguinal Adenopathy Neurological: Cranial nerves II-XII grossly intact, Neuro grossly intact, Motor Exam 5/5 strength throughout Psych/Mental Status: Normal Affect, Appropriate, Alert and oriented to time, place, person, mood and affect Laboratory Results 01/05/18 12:15: POC Glucose 325 H 01/05/18 16:11: POC Glucose 210 H 01/06/18 00:09: POC Glucose 159 H 01/06/18 06:13: POC Glucose 209 H 01/06/18 07:10: WBC 10.4, RBC 3.50 L, Hgb 9.9 L, Hct 30.3 L, MCV 86.6, MCH 28.3, MCHC 32.7, RDW 15.0 H, RDW Differential 46.1 H, Plt Count 203, MPV 11.1, Immature Gran % (Auto) 0.200, Neut % (Auto) 83.4 H, Lymph % (Auto) 10.6 L, [place] % (Auto) 3.9, Eos % (Auto) 1.7, Baso % (Auto) 0.2, Absolute Neuts (auto) 8.7 H, Absolute Lymphs (auto) 1.11, Total Counted Not Reportable 01/06/18 07:10: Sodium 140, Potassium 4.1, Chloride 108 H, Carbon Dioxide 24.0, Anion Gap 8, BUN 28 H, Creatinine 1.39 H, Estim Creat Clear Calc 34.19, Est GFR (MDRD) Af Amer 47 L, Est GFR (MDRD) Non-Af 39 L, BUN/Creatinine Ratio 20.1 H, Glucose 207 H, Calcium 7.7 L, Total Bilirubin 3.30 H, AST 47 H, ALT 108 H, Alkaline Phosphatase 282 H, Total Protein 5.8 L, Albumin 2.1 L, Globulin 3.7, Albumin/Globulin Ratio 0.6 L 01/06/18 07:10: Magnesium 2.3 Laboratory Tests Past 24 Hrs 01/06/18 01/06/18 01/06/18 07:10 07:10 07:10 WBC 10.4 RBC 3.50 L Hgb 9.9 L Hct 30.3 L MCV 86.6 MCH 28.3 MCHC 32.7 RDW 15.0 H RDW Differential 46.1 H Plt Count 203 MPV 11.1 Immature Gran % (Auto) 0.200 Neut % (Auto) 83.4 H Lymph % (Auto) 10.6 L [place] % (Auto) 3.9 Eos % (Auto) 1.7 Baso % (Auto) 0.2 Absolute Neuts (auto) 8.7 H Absolute Lymphs (auto) 1.11 Total Counted Not Reportable Sodium 140 Potassium 4.1 Chloride 108 H Carbon Dioxide 24.0 Anion Gap 8 BUN 28 H Creatinine 1.39 H Estim Creat Clear Calc 34.19 Est GFR (MDRD) Af Amer 47 L Est GFR (MDRD) Non-Af 39 L BUN/Creatinine Ratio 20.1 H Glucose 207 H Calcium 7.7 L Magnesium 2.3 Total Bilirubin 3.30 H AST 47 H ALT 108 H Alkaline Phosphatase 282 H Total Protein 5.8 L Albumin 2.1 L Globulin 3.7 Albumin/Globulin Ratio 0.6 L Diagnostic Data Abdomen/Pelvis CT 01/05/18 02:01 IMPRESSION: 1. Sludge within a mildly distended gallbladder but without definitive evidence of acute cholecystitis. 2. Minimal sigmoid colonic diverticulosis with no CT evidence of acute diverticulitis. 3. Shotty retroperitoneal and root of the mesentery lymph nodes with subtle hazy fat stranding, potentially representing a mesenteric panniculitis. 4. Hypoattenuated foci in the liver which are too small to characterize but which likely represent cysts versus hemangiomas MR which could be further characterized by MR imaging of the liver.. Electronically Signed: Mat Lee MD at 3:40 EDT Tel , Service support , Chest X-Ray 01/05/18 02:05 IMPRESSION: No evidence of acute cardiopulmonary disease. Electronically Signed: Mat Lee MD at 2:55 EDT Tel , Service support , Gallbladder Ultrasound 01/05/18 07:00 IMPRESSION: There is gallbladder sludge and multiple stones. Electronically Signed: Ai Caruso MD at 12:35 EDT , Service support , Current Medications Acetaminophen (Tylenol) 650 mg PO Q6H PRN PRN PRN Reason: Non-cardiac pain (mod-severe) Last Admin: 01/06/18 06:16 Dose: 650 mg Hydrocodone Bitart/Acetaminophen ([place] 5mg-325mg) 1 - 2 tablet PO Q6H PRN PRN PRN Reason: Moderate-severe pain [facility] Last Admin: 01/06/18 08:14 Dose: 200 mg Amitriptyline HCl (Elavil) 20 mg PO QHS [facility] Last Admin: 01/05/18 21:48 Dose: 20 mg Dextrose (D50w Syringe) 0 gm IV X1 PRN; Protocol PRN Reason: Hypoglycemia Gabapentin (Neurontin) 300 [facility] Last Admin: 01/06/18 08:14 Dose: 300 mg Glucagon () 1 mg IM .X1 PRN PRN Reason: Hypoglycemia Hydralazine HCl (Apresoline Iv) 10 mg IV Q4H PRN PRN PRN Reason: SBP > 160 Sodium Chloride () 250 mls @ 15 mls/hr IV .[id number] PRN PRN Reason: SALINE FLUSH Last Admin: 01/05/18 14:11 Dose: 15 mls/hr Sodium Chloride () 1,000 mls @ 125 mls/hr IV .Q8H [facility] Last Admin: 01/06/18 05:02 Dose: 125 mls/hr Piperacillin Sod/Tazobactam Sod (Zosyn) 3.375 gm in 50 mls @ 12.5 mls/hr IV Q8 [facility] Last Admin: 01/06/18 05:01 Dose: 12.5 mls/hr Pantoprazole Sodium 40 mg/ (Sodium Chloride) 110 mls @ 330 mls/hr IV Q12 [facility] Last Admin: 01/05/18 21:48 Dose: 330 mls/hr Amiodarone HCl 360 mg/ (Dextrose) 200 mls @ 33.33 mls/hr CONT INF .Q6H1M [facility] PRN Reason: 1 MG/MIN Stop: 01/06/18 10:15 Last Admin: 01/06/18 05:12 Dose: 33.33 mls/hr Amiodarone HCl 360 mg/ (Dextrose) 200 mls @ 16.66 mls/hr CONT INF .Q12H1M [facility] PRN Reason: 0.5 MG/MIN Stop: 01/07/18 04:15 Insulin Human Lispro (Humalog Bintapen (Bkc)) 0 unit SQ Q6 ARLETTE PRN Reason: Protocol Last Admin: 01/06/18 07:25 Dose: 4 units Morphine Sulfate () 2 - 4 mg IV Q1H PRN PRN PRN Reason: SEVERE PAIN (6-10/10) Morphine Sulfate () 2 - 4 mg IV Q1H PRN PRN PRN Reason: SEVERE PAIN (6-10/10) Ondansetron HCl (Zofran) 4 mg IV Q8H PRN PRN Sodium Chloride () 5 - 30 ml IV UD PRN PRN Reason: SALINE FLUSH Last Admin: 01/06/18 05:14 Dose: 5 ml Medical Necessity - Tobacco Use Smoking Status: Never smoker Assessment/Plan All Active Problems Abdominal pain (Acute) Atrial fibrillation (Acute) Cholecystitis with cholelithiasis (Acute) Dehydration (Acute) Diarrhea (Acute) TAWANDA (acute kidney injury) (Acute) 1. Acute choledocholithiasis and cholecycstitis general surgery on board CT showed sludge in the gallbladder total bilirubin trended down from 5.3 to 3.3; AST 156->147, ALT-201->108, ALP-440->282 gallbladder USG:gallbladder sludge and multiple stones. liver measures 17.5cm. CBD measures 4.8mm leucocytosis has resolved and is down to 10.4 on IV zosyn 2. Paroxysmal A. fib with RVR On Xarelto. Xarelto on hold currently o/a of her going for surgery possibly on Monday became tachycardic yesterday with heart rate going up into 130s and 140s. Beta carolin has been on hold o/a of hypotension. BP this morning is ~ 90/59. cardiology consulted; will discuss with cardiology about stopping amioarone drip and simply resuming beta carolin and adjusting dose based on her BP. 2D echo: EF of about 60% with normal left ventricular systolic function. No regional wall motion abnormalities noted. Left atrium mildly enlarged. Sigmoid septum, mild mitral annular calcification. Mild MR and TR insufficiency and trivial pulmonary valve insufficiency will await cardiology clearance for surgery on Monday 3. Hypotension: cause unclear. resolved. BP meds on hold. on IVF. 4. Diabetes mellitus on cardiac diet now lantus was on hold due to NPO status initially. will resume lantus accuchecks ACHS 5. history of gout: stable. On allopurinol 6. ?CHF ruled out per echo findings as noted above. 7. GI prophylaxis: pantoprazole 8. DVT prophylaxis: PCDs This note was generated with [employer] dictation software. It may contain incorrect words, spelling, and punctuation that were not noted in checking the note before signing. Code Visit Inpatient E&M: 02119 Subs Hosp L3
--- NOTE | 2018-01-06 10:25 | PN_ITS ---
Patient Problems: Active and Suspected Problems Abdominal pain (Acute) Atrial fibrillation (Acute) Cholecystitis with cholelithiasis (Acute) Subjective: Patient seen and examined. She had to be started on IV amiodarone drip overnight on account of elevated heart rate. Patient denies any dizziness or lightheadedness was eating breakfast comfortably. She does remain jaundiced though she denies any cola like urine and any fever or chills. Abdominal pain is also improved. Labs and vitals reviewed. Radiology was consulted on account of elevated heart rate. Vitals/I&O's: Vital Signs Temp Pulse Resp BP Pulse Ox 97.6 F L 113 H 20 H 90/59 L 97 01/06/18 08:00 01/06/18 08:00 01/06/18 08:00 01/06/18 08:00 01/06/18 08:00 Oxygen Delivery Method Room Air Weight: 227 lb 15.327 oz Body Mass Index (BMI) 34.6 Intake and Output for Last 24 Hours 01/04/18 01/05/18 01/06/18 23:59 23:59 23:59 Intake Total 4090 / 4090 148.4 / 148.4 Output Total 900 / 900 Balance 3190 / 3190 148.4 / 148.4 General: Alert, Oriented x3, Cooperative, No apparent distress HEENT: Atraumatic, PERRLA, EOMI, Normocephalic, - - jaundiced sclera Oral: Moist Mucosa Neck: Supple, No JVD, Negative Carotid Bruits Lungs: Clear to auscultation, Normal air movement, No rhonchi, No wheeze, No rales Cardiovascular: Regular Rhythm, Normal S1, Normal S2, No murmurs, Tachycardic Abdomen: Bowel Sounds Present, Soft, Non Tender, Non-Distended, No Hepato- splenomegaly Extremities: No clubbing, No cyanosis, No edema, Capillary Refill Less than 3 Seconds Skin: - - jaundiced skin Musculoskeletal: No Tenderness to Palpation of Joints or Extremities Lymphatic: No Cervical, Supraclavicular, or Inguinal Adenopathy Neurological: Cranial nerves II-XII grossly intact, Neuro grossly intact, Motor Exam 5/5 strength throughout Psych/Mental Status: Normal Affect, Appropriate, Alert and oriented to time, place, person, mood and affect Laboratory Results 01/05/18 12:15: POC Glucose 325 H 01/05/18 16:11: POC Glucose 210 H 01/06/18 00:09: POC Glucose 159 H 01/06/18 06:13: POC Glucose 209 H 01/06/18 07:10: WBC 10.4, RBC 3.50 L, Hgb 9.9 L, Hct 30.3 L, MCV 86.6, MCH 28.3 , MCHC 32.7, RDW 15.0 H, RDW Differential 46.1 H, Plt Count 203, MPV 11.1, Immature Gran % (Auto) 0.200, Neut % (Auto) 83.4 H, Lymph % (Auto) 10.6 L, [place] % (Auto) 3.9, Eos % (Auto) 1.7, Baso % (Auto) 0.2, Absolute Neuts (auto) 8.7 H, Absolute Lymphs (auto) 1.11, Total Counted Not Reportable 01/06/18 07:10: Sodium 140, Potassium 4.1, Chloride 108 H, Carbon Dioxide 24.0, Anion Gap 8, BUN 28 H, Creatinine 1.39 H, Estim Creat Clear Calc 34.19, Est GFR (MDRD) Af Amer 47 L, Est GFR (MDRD) Non-Af 39 L, BUN/Creatinine Ratio 20.1 H, Glucose 207 H, Calcium 7.7 L, Total Bilirubin 3.30 H, AST 47 H, ALT 108 H, Alkaline Phosphatase 282 H, Total Protein 5.8 L, Albumin 2.1 L, Globulin 3.7, Albumin/Globulin Ratio 0.6 L 01/06/18 07:10: Magnesium 2.3 Laboratory Tests Past 24 Hrs 01/06/18 01/06/18 01/06/18 07:10 07:10 07:10 WBC 10.4 RBC 3.50 L Hgb 9.9 L Hct 30.3 L MCV 86.6 MCH 28.3 MCHC 32.7 RDW 15.0 H RDW Differential 46.1 H Plt Count 203 MPV 11.1 Immature Gran % (Auto) 0.200 Neut % (Auto) 83.4 H Lymph % (Auto) 10.6 L [place] % (Auto) 3.9 Eos % (Auto) 1.7 Baso % (Auto) 0.2 Absolute Neuts (auto) 8.7 H Absolute Lymphs (auto) 1.11 Total Counted Not Reportable Sodium 140 Potassium 4.1 Chloride 108 H Carbon Dioxide 24.0 Anion Gap 8 BUN 28 H Creatinine 1.39 H Estim Creat Clear Calc 34.19 Est GFR (MDRD) Af Amer 47 L Est GFR (MDRD) Non-Af 39 L BUN/Creatinine Ratio 20.1 H Glucose 207 H Calcium 7.7 L Magnesium 2.3 Total Bilirubin 3.30 H AST 47 H ALT 108 H Alkaline Phosphatase 282 H Total Protein 5.8 L Albumin 2.1 L Globulin 3.7 Albumin/Globulin Ratio 0.6 L Diagnostic Data Abdomen/Pelvis CT 01/05/18 02:01 IMPRESSION: 1. Sludge within a mildly distended gallbladder but without definitive evidence of acute cholecystitis. 2. Minimal sigmoid colonic diverticulosis with no CT evidence of acute diverticulitis. 3. Shotty retroperitoneal and root of the mesentery lymph nodes with subtle hazy fat stranding, potentially representing a mesenteric panniculitis. 4. Hypoattenuated foci in the liver which are too small to characterize but which likely represent cysts versus hemangiomas MR which could be further characterized by MR imaging of the liver.. Electronically Signed: Mat Lee MD at 3:40 EDT Tel , Service support , Chest X-Ray 01/05/18 02:05 IMPRESSION: No evidence of acute cardiopulmonary disease. Electronically Signed: Mat Lee MD at 2:55 EDT Tel , Service support , Gallbladder Ultrasound 01/05/18 07:00 IMPRESSION: There is gallbladder sludge and multiple stones. Electronically Signed: Ai Caruso MD at 12:35 EDT , Service support , Current Medications Acetaminophen (Tylenol) 650 mg PO Q6H PRN PRN PRN Reason: Non-cardiac pain (mod-severe) Last Admin: 01/06/18 06:16 Dose: 650 mg Hydrocodone Bitart/Acetaminophen ([place] 5mg-325mg) 1 - 2 tablet PO Q6H PRN PRN PRN Reason: Moderate-severe pain [facility]oprim) [facility] Last Admin: 01/06/18 08:14 Dose: 200 mg Amitriptyline HCl (Elavil) 20 mg PO QHS [facility] Last Admin: 01/05/18 21:48 Dose: 20 mg Dextrose (D50w Syringe) 0 gm IV X1 PRN; Protocol PRN Reason: Hypoglycemia Gabapentin (Neurontin) 300 [facility] Last Admin: 01/06/18 08:14 Dose: 300 mg Glucagon () 1 mg IM .X1 PRN PRN Reason: Hypoglycemia Hydralazine HCl (Apresoline Iv) 10 mg IV Q4H PRN PRN PRN Reason: SBP > 160 Sodium Chloride () 250 mls @ 15 mls/hr IV .[id number] PRN PRN Reason: SALINE FLUSH Last Admin: 01/05/18 14:11 Dose: 15 mls/hr Sodium Chloride () 1,000 mls @ 125 mls/hr IV .Q8H [facility] Last Admin: 01/06/18 05:02 Dose: 125 mls/hr Piperacillin Sod/Tazobactam Sod (Zosyn) 3.375 gm in 50 mls @ 12.5 mls/hr IV Q8 [facility] Last Admin: 01/06/18 05:01 Dose: 12.5 mls/hr Pantoprazole Sodium 40 mg/ (Sodium Chloride) 110 mls @ 330 mls/hr IV Q12 [facility] Last Admin: 01/05/18 21:48 Dose: 330 mls/hr Amiodarone HCl 360 mg/ (Dextrose) 200 mls @ 33.33 mls/hr CONT INF .Q6H1M [facility] PRN Reason: 1 MG/MIN Stop: 01/06/18 10:15 Last Admin: 01/06/18 05:12 Dose: 33.33 mls/hr Amiodarone HCl 360 mg/ (Dextrose) 200 mls @ 16.66 mls/hr CONT INF .Q12H1M [facility] PRN Reason: 0.5 MG/MIN Stop: 01/07/18 04:15 Insulin Human Lispro (Humalog Bintapen (Bkc)) 0 unit SQ Q6 [facility]TTE PRN Reason: Protocol Last Admin: 01/06/18 07:25 Dose: 4 units Morphine Sulfate () 2 - 4 mg IV Q1H PRN PRN PRN Reason: SEVERE PAIN (6-10/10) Morphine Sulfate () 2 - 4 mg IV Q1H PRN PRN PRN Reason: SEVERE PAIN (6-10/10) Ondansetron HCl (Zofran) 4 mg IV Q8H PRN PRN Sodium Chloride () 5 - 30 ml IV UD PRN PRN Reason: SALINE FLUSH Last Admin: 01/06/18 05:14 Dose: 5 ml Medical Necessity - Tobacco Use Smoking Status: Never smoker Assessment/Plan All Active Problems Abdominal pain (Acute) Atrial fibrillation (Acute) Cholecystitis with cholelithiasis (Acute) Dehydration (Acute) Diarrhea (Acute) TAWANDA (acute kidney injury) (Acute) 1. Acute choledocholithiasis and cholecycstitis * general surgery on board * CT showed sludge in the gallbladder * total bilirubin trended down from 5.3 to 3.3; AST 156->147, ALT-201->108, ALP- 440->282 * gallbladder USG:gallbladder sludge and multiple stones. liver measures 17.5cm. CBD measures 4.8mm * leucocytosis has resolved and is down to 10.4 * on IV zosyn * * 2. Paroxysmal A. fib with RVR * On Xarelto. Xarelto on hold currently o/a of her going for surgery possibly on Monday * became tachycardic yesterday with heart rate going up into 130s and 140s. Beta carolin has been on hold o/a of hypotension. BP this morning is ~ 90/59. * cardiology consulted; will discuss with cardiology about stopping amioarone drip and simply resuming beta carolin and adjusting dose based on her BP. * 2D echo: EF of about 60% with normal left ventricular systolic function. No regional wall motion abnormalities noted. Left atrium mildly enlarged. Sigmoid septum, mild mitral annular calcification. Mild MR and TR insufficiency and trivial pulmonary valve insufficiency * will await cardiology clearance for surgery on Monday * 3. Hypotension: cause unclear. resolved. BP meds on hold. on IVF. 4. Diabetes mellitus * on cardiac diet now * lantus was on hold due to NPO status initially. * will resume lantus * accuchecks ACHS * * 5. history of gout: stable. On allopurinol 6. ?CHF * ruled out per echo findings as noted above. * 7. GI prophylaxis: pantoprazole 8. DVT prophylaxis: PCDs This note was generated with [employer] dictation software. It may contain incorrect words, spelling, and punctuation that were not noted in checking the note before signing. Code Visit Inpatient E&M: 23677 Subs Hosp L3
--- NOTE | 2018-01-06 11:00 | CASEMGMT ---
RN LOBITO Face to Face with patient for initial transition planning/care coordination assessment. RN CM introduced self and role at [facility]. Patient lying in bed, alert and oriented. Patient willing to participate in assessment and is able to answer all questions appropriately. Care providers, pharmacy, and demographics verified. See link attached. Patient wishes to discharge home, denies need for home health at this time. Patient states she has no further needs or concerns at this time. CM to follow for discharge planning needs that may arise. Disposition Plan: Patient to discharge home with family support and follow-up plans in place.
[2018-01-06 11:31] LABS: Bedside Glucose 272 mg/dL (70-110)
--- NOTE | 2018-01-06 12:22 | PCM.PN.SRG ---
Patient Problems: Active and Suspected Problems Abdominal pain (Acute) Subjective: events of early this morning noted - patient developed afib with rapid ventricular response - treatment by Dr. Zimmerman Patient denied chest pain This morning she denies abdominal pain, her LFTs have decreased - suspect common bile duct stone patient feels hungry, will start regular diet, earliest date for surgery would be Monday - pending cardiology clearance - Physical Exam General: Alert, Oriented x3 Oral: Moist Mucosa Neck: Supple Lungs: Normal air movement Abdomen: Bowel Sounds Present, Soft Vital Signs Temp Pulse Resp BP Pulse Ox 97.4 F L 101 H 23 H 108/91 H 97 01/06/18 10:00 01/06/18 11:00 01/06/18 11:00 01/06/18 11:00 01/06/18 11:00 Oxygen Delivery Method Room Air Weight: 103.4 kg Body Mass Index (BMI) 34.6 Intake and Output for Last 24 Hours 01/04/18 01/05/18 01/06/18 23:59 23:59 23:59 Intake Total 4090 / 4090 779.4 / 779.4 Output Total 900 / 900 Balance 3190 / 3190 779.4 / 779.4 Laboratory Tests Past 24 Hrs 01/06/18 01/06/18 01/06/18 07:10 07:10 07:10 WBC 10.4 RBC 3.50 L Hgb 9.9 L Hct 30.3 L MCV 86.6 MCH 28.3 MCHC 32.7 RDW 15.0 H RDW Differential 46.1 H Plt Count 203 MPV 11.1 Immature Gran % (Auto) 0.200 Neut % (Auto) 83.4 H Lymph % (Auto) 10.6 L [place] % (Auto) 3.9 Eos % (Auto) 1.7 Baso % (Auto) 0.2 Absolute Neuts (auto) 8.7 H Absolute Lymphs (auto) 1.11 Total Counted Not Reportable Sodium 140 Potassium 4.1 Chloride 108 H Carbon Dioxide 24.0 Anion Gap 8 BUN 28 H Creatinine 1.39 H Estim Creat Clear Calc 34.19 Est GFR (MDRD) Af Amer 47 L Est GFR (MDRD) Non-Af 39 L BUN/Creatinine Ratio 20.1 H Glucose 207 H Calcium 7.7 L Magnesium 2.3 Total Bilirubin 3.30 H AST 47 H ALT 108 H Alkaline Phosphatase 282 H Total Protein 5.8 L Albumin 2.1 L Globulin 3.7 Albumin/Globulin Ratio 0.6 L POC Glucose 01/06/18 01/06/18 01/06/18 11:20 06:13 00:09 POC Glucose 272 H 209 H 159 H 01/05/18 01/05/18 16:11 12:15 POC Glucose 210 H 325 H Medical Necessity - Tobacco Use Smoking Status: Never smoker Assessment/Plan All Active Problems Abdominal pain (Acute) Dehydration (Acute) Diarrhea (Acute) TAWANDA (acute kidney injury) (Acute) Impression: cholelithiasis, cholecystitis, probable choledocholithiasis Plan: advance to regular diet as per cardiology and hospitalists - appreciate medical management earliest date for surgery would be Monday - pending above will probably require ERCP - will discuss case with Dr. Cook
--- NOTE | 2018-01-06 14:53 | PCM.CONS.C ---
Problem List (1) Atrial fibrillation Status: Acute (2) Hyperlipidemia Status: Chronic (3) Type 2 diabetes mellitus Status: Chronic Qualifiers: Diabetes mellitus complication detail: with unspecified neuropathy Qualified Code(s): E11.40 - Type 2 diabetes mellitus 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 neuropathy, unspecified (4) Cholecystitis with cholelithiasis Status: Acute Reason for Consult Date of Consultation: 01/06/18 History of Present Illness: The patient is a 77 year old with a past cardiovascular history which has included paroxysmal atrial fibrillation, for which she continues to follow with [facility] cardiology, who is now referred, during her hospital stay for concerns of cholecystitis and cholelithiasis pending upcoming ERCP cholecystectomy, recurrent atrial fibrillation with rapid ventricular response. The patient presented for her noncardiovascular issues. She was be monitoring on the general medicine/surgical floor. She is pending upcoming general surgical evaluation and care. She was noted to have elevated heart rate and was found to be in atrial fibrillation with rapid ventricular response. She was subsequently transferred to the PCU for further evaluation care. The patient states, as before with a previous episode evaluated at [facility] on 07/05/2013 by [facility] cardiology, she did not sense the elevated rate or change in rhythm. She has had no other complaints of acute chest discomfort or difficulty breathing. She has not had any episodes of near syncope or syncope. She states she has follow-up with [facility] cardiology for this diagnosis and has remained on medical management including anticoagulant therapy. She notes her anticoagulants were discontinued based upon her underlying gastrointestinal related issues and need for upcoming invasive evaluation and care. She has undergone evaluation with ECG. It did demonstrate atrial fibrillation with a rapid ventricular response with concerns of underlying LVH. She states she has had noninvasive evaluation from a cardiovascular standpoint at the [facility] facility in the past. This included exercise tolerance test/imaging studies. She states she was never recommended for further invasive evaluation or care with diagnostic cardiac catheterization. [] Past Medical History Allergies/Adverse Reactions: Allergies iodine Allergy (Verified 01/05/18 01:34) Hives simvastatin Allergy (Verified 01/05/18 01:34) Other Home Medications: Ambulatory Orders Medication Instructions Recorded Allopurinol [Zyloprim] 200 mg PO DAILYCM 07/04/13 Amitriptyline HCl [Elavil] 20 mg PO QHS 07/04/13 Cholecalciferol (Vitamin D3) 1,000 unit PO DAILY 07/04/13 [Vitamin D3] Cyanocobalamin (Vitamin B-12) 1,000 mcg IM QMONTH 07/04/13 [Vitamin B-12] Gabapentin [Neurontin] 300 mg PO 4X/DAY 07/04/13 Glimepiride [Amaryl] 2 mg PO DAILY 07/04/13 Lansoprazole [Prevacid] 30 mg PO DAILY 07/04/13 Psyllium Husk [Metamucil] 2 cap PO LUNCH 07/05/13 Colestipol Tablet [Colestid Tablet] 1 gm PO BIDCM 02/05/15 Insulin Glargine,Hum.rec.anlog 20 unit SC QHS 02/05/15 [Lantus] Liraglutide [Victoza 2-Paulie] 1.2 mg SQ DAILY 02/05/15 Multivitamin with Iron [One Daily 1 each PO DAILY 02/05/15 Plus Iron] Carvedilol [Coreg (Beta Aminah)] 50 mg PO BID 01/05/18 Rivaroxaban [Xarelto] 15 mg PO QHS 01/05/18 Past Medical History (Chronic Problems): Chronic Problems Generalized anxiety disorder (Chronic) Generalized osteoarthritis (Chronic) Hyperlipidemia (Chronic) Type 2 diabetes mellitus (Chronic) Surgical History: total knee arthroplasty, - - OZ, cyst removal from the breast which was benign, tonsillectomy - *Family History Paternal History Items: Heart Disease Smoking Status: Never smoker Alcohol: None Drugs: None Review of Systems - Review of Systems General: Denies: Fatigue, Night Sweats Cardiovascular: Denies: Chest Discomfort, Shortness of Breath, Orthopnea, PND, Peripheral Edema, Palpitations, Lightheadedness, Dizziness, Near Syncope, Syncope Respiratory: Denies: Cough, Sputum Production, Hemoptysis Gastrointestinal: Denies: Hematemesis, Hematochezia, Melena Genitourinary: Denies: Dysuria, Hematuria Skin: Denies: Rash Subjectve: 7-year-old somewhat jaundiced appearing female resting comfortably at the moment in no acute distress. Objective: Vital Signs Temp Pulse Resp BP Pulse Ox 97.1 F L 63 16 96/60 98 01/06/18 14:00 01/06/18 14:00 01/06/18 14:00 01/06/18 14:00 01/06/18 14:00 Oxygen Delivery Method Room Air Weight: 227 lb 15.327 oz Body Mass Index (BMI) 34.6 Intake and Output for Last 24 Hours 01/04/18 01/05/18 01/06/18 23:59 23:59 23:59 Intake Total 4090 / 4090 779.4 / 779.4 Output Total 900 / 900 Balance 3190 / 3190 779.4 / 779.4 General: Awake, Alert, Oriented x 3, No Acute Distress HEENT: Atraumatic, Normocephalic, PERRL, EOMI Oral: Moist Mucosa Neck: Supple, Good ROM Lungs: Clear to auscultation Cardiovascular: Irregular Rhythm, Normal S1, Normal S2 Vascular: No Carotid Bruits Abdomen: Bowel Sounds Present, Soft Extremities: No Cyanosis, No Clubbing, No edema Neurological: No Focal Motor or Sensory Deficit Psych/Mental Status: Appropriate, Normal Affect 01/06/18 07:10: WBC 10.4, RBC 3.50 L, Hgb 9.9 L, Hct 30.3 L, MCV 86.6, MCH 28.3, MCHC 32.7, RDW 15.0 H, RDW Differential 46.1 H, Plt Count 203, MPV 11.1, Immature Gran % (Auto) 0.200, Neut % (Auto) 83.4 H, Lymph % (Auto) 10.6 L, [place] % (Auto) 3.9, Eos % (Auto) 1.7, Baso % (Auto) 0.2, Absolute Neuts (auto) 8.7 H, Total Counted Not Reportable 01/06/18 07:10: Sodium 140, Potassium 4.1, Chloride 108 H, Carbon Dioxide 24.0, Anion Gap 8, BUN 28 H, Creatinine 1.39 H, Est GFR (MDRD) Af Amer 47 L, Est GFR (MDRD) Non-Af 39 L, BUN/Creatinine Ratio 20.1 H, Glucose 207 H, Calcium 7.7 L, Total Bilirubin 3.30 H 01/06/18 07:10: Magnesium 2.3 Rhythm: Atrial fibrillation EKG: As noted above Echocardiogram: 01/05/2018: Left ventricle considered normal with an LVEF of 65%; mild MR/TR; please see complete and official report Chest x-ray: Preliminary evaluation: No acute cardiopulmonary disease process appreciated: Please see official report Assessment/Plan 1. Atrial fibrillation with rapid ventricular response The patient has recurrent atrial fibrillation with rapid ventricular response. This may have occurred based on a combination of her age, her underlying current noncardiovascular state and ongoing issues, as well as her history of previous atrial fibrillation. Thus far there is been no evidence of any additional acute cardiovascular/pulmonary related events. The present time she has been treated with IV amiodarone and attempt to assist with rate control and rhythm control. She has remained off of additional rate control agents at this time such as beta blockers or calcium channel antagonist secondary to concerns of her low blood pressure. If she requires additional rate control it may come in the form of digitalis. She has been on anticoagulant therapy in the past. This is been placed on hold noting her need for upcoming general surgery procedures. At the present time she will continue to be monitored. She will continue rate control therapy as deemed appropriate. She will continue with her anti-rhythmic therapy. It is not unreasonable to consider additional anticoagulant therapy in the interim which can be started and stopped as needed in and around the time of her noncardiovascular surgery. An attempt can be made to retrieve [facility] cardiovascular records for continuity of care. In the interim, with respect to her noncardiovascular surgery, as long as she demonstrates a stable cardiovascular course with no additional acute findings and with respect to her atrial dysrhythmia rate control, etc. then hopefully she can proceed with her general surgical evaluation care and following such continue on with her cardiovascular evaluation and care. 2. Hyperlipidemia She will need to continue evaluation care as deemed appropriate. 3. Diabetes mellitus She will continue under the care of internal medicine for this. 5. Cholecystitis/cholelithiasis She will continue evaluation care per general surgery. Again, as long as she remained stable from a cardiovascular standpoint, she should be able to proceed with her upcoming non-cardiovascular surgery with close follow-up of her cardiac rate and rhythm during and following her surgical procedure. Comment: The patient's case was discussed with the patient and her family members present. This note was generated with [employer] software. It may contain incorrect words, spelling, and punctuation that were not noted in checking the note before signing.
--- NOTE | 2018-01-06 14:57 | CON.PCM_ITS ---
Problem List (1) Atrial fibrillation Status: Acute (2) Hyperlipidemia Status: Chronic (3) Type 2 diabetes mellitus Status: Chronic Qualifiers: Diabetes mellitus complication detail: with unspecified neuropathy Qualified Code(s): E11.40 - Type 2 diabetes mellitus 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 neuropathy, unspecified (4) Cholecystitis with cholelithiasis Status: Acute Reason for Consult Date of Consultation: 01/06/18 History of Present Illness: The patient is a 77 year old with a past cardiovascular history which has included paroxysmal atrial fibrillation, for which she continues to follow with [facility] cardiology, who is now referred, during her hospital stay for concerns of cholecystitis and cholelithiasis pending upcoming ERCP cholecystectomy, recurrent atrial fibrillation with rapid ventricular response. The patient presented for her noncardiovascular issues. She was be monitoring on the general medicine/surgical floor. She is pending upcoming general surgical evaluation and care. She was noted to have elevated heart rate and was found to be in atrial fibrillation with rapid ventricular response. She was subsequently transferred to the PCU for further evaluation care. The patient states, as before with a previous episode evaluated at [facility] on 07/05/2013 by [facility] cardiology, she did not sense the elevated rate or change in rhythm. She has had no other complaints of acute chest discomfort or difficulty breathing. She has not had any episodes of near syncope or syncope. She states she has follow-up with [facility] cardiology for this diagnosis and has remained on medical management including anticoagulant therapy. She notes her anticoagulants were discontinued based upon her underlying gastrointestinal related issues and need for upcoming invasive evaluation and care. She has undergone evaluation with ECG. It did demonstrate atrial fibrillation with a rapid ventricular response with concerns of underlying LVH. She states she has had noninvasive evaluation from a cardiovascular standpoint at the [facility] facility in the past. This included exercise tolerance test/imaging studies. She states she was never recommended for further invasive evaluation or care with diagnostic cardiac catheterization. [] Past Medical History Allergies/Adverse Reactions: Allergies iodine Allergy (Verified 01/05/18 01:34) Hives simvastatin Allergy (Verified 01/05/18 01:34) Other Home Medications: Ambulatory Orders Medication Instructions Recorded Allopurinol [Zyloprim] 200 mg PO DAILYCM 07/04/13 Amitriptyline HCl [Elavil] 20 mg PO QHS 07/04/13 Cholecalciferol (Vitamin D3) 1,000 unit PO DAILY 07/04/13 [Vitamin D3] Cyanocobalamin (Vitamin B-12) 1,000 mcg IM QMONTH 07/04/13 [Vitamin B-12] Gabapentin [Neurontin] 300 mg PO 4X/DAY 07/04/13 Glimepiride [Amaryl] 2 mg PO DAILY 07/04/13 Lansoprazole [Prevacid] 30 mg PO DAILY 07/04/13 Psyllium Husk [Metamucil] 2 cap PO LUNCH 07/05/13 Colestipol Tablet [Colestid Tablet] 1 gm PO BIDCM 02/05/15 Insulin Glargine,Hum.rec.anlog 20 unit SC QHS 02/05/15 [Lantus] Liraglutide [Victoza 2-Paulie] 1.2 mg SQ DAILY 02/05/15 Multivitamin with Iron [One Daily 1 each PO DAILY 02/05/15 Plus Iron] Carvedilol [Coreg (Beta Aminah)] 50 mg PO BID 01/05/18 Rivaroxaban [Xarelto] 15 mg PO QHS 01/05/18 Past Medical History (Chronic Problems): Chronic Problems Generalized anxiety disorder (Chronic) Generalized osteoarthritis (Chronic) Hyperlipidemia (Chronic) Type 2 diabetes mellitus (Chronic) Surgical History: total knee arthroplasty, - - OZ, cyst removal from the breast which was benign, tonsillectomy - *Family History Paternal History Items: Heart Disease Smoking Status: Never smoker Alcohol: None Drugs: None Review of Systems - Review of Systems General: Denies: Fatigue, Night Sweats Cardiovascular: Denies: Chest Discomfort, Shortness of Breath, Orthopnea, PND, Peripheral Edema, Palpitations, Lightheadedness, Dizziness, Near Syncope, Syncope Respiratory: Denies: Cough, Sputum Production, Hemoptysis Gastrointestinal: Denies: Hematemesis, Hematochezia, Melena Genitourinary: Denies: Dysuria, Hematuria Skin: Denies: Rash Subjectve: 7-year-old somewhat jaundiced appearing female resting comfortably at the moment in no acute distress. Objective: Vital Signs Temp Pulse Resp BP Pulse Ox 97.1 F L 63 16 96/60 98 01/06/18 14:00 01/06/18 14:00 01/06/18 14:00 01/06/18 14:00 01/06/18 14:00 Oxygen Delivery Method Room Air Weight: 227 lb 15.327 oz Body Mass Index (BMI) 34.6 Intake and Output for Last 24 Hours 01/04/18 01/05/18 01/06/18 23:59 23:59 23:59 Intake Total 4090 / 4090 779.4 / 779.4 Output Total 900 / 900 Balance 3190 / 3190 779.4 / 779.4 General: Awake, Alert, Oriented x 3, No Acute Distress HEENT: Atraumatic, Normocephalic, PERRL, EOMI Oral: Moist Mucosa Neck: Supple, Good ROM Lungs: Clear to auscultation Cardiovascular: Irregular Rhythm, Normal S1, Normal S2 Vascular: No Carotid Bruits Abdomen: Bowel Sounds Present, Soft Extremities: No Cyanosis, No Clubbing, No edema Neurological: No Focal Motor or Sensory Deficit Psych/Mental Status: Appropriate, Normal Affect 01/06/18 07:10: WBC 10.4, RBC 3.50 L, Hgb 9.9 L, Hct 30.3 L, MCV 86.6, MCH 28.3 , MCHC 32.7, RDW 15.0 H, RDW Differential 46.1 H, Plt Count 203, MPV 11.1, Immature Gran % (Auto) 0.200, Neut % (Auto) 83.4 H, Lymph % (Auto) 10.6 L, [place] % (Auto) 3.9, Eos % (Auto) 1.7, Baso % (Auto) 0.2, Absolute Neuts (auto) 8.7 H, Total Counted Not Reportable 01/06/18 07:10: Sodium 140, Potassium 4.1, Chloride 108 H, Carbon Dioxide 24.0, Anion Gap 8, BUN 28 H, Creatinine 1.39 H, Est GFR (MDRD) Af Amer 47 L, Est GFR ( MDRD) Non-Af 39 L, BUN/Creatinine Ratio 20.1 H, Glucose 207 H, Calcium 7.7 L, Total Bilirubin 3.30 H 01/06/18 07:10: Magnesium 2.3 Rhythm: Atrial fibrillation EKG: As noted above Echocardiogram: 01/05/2018: Left ventricle considered normal with an LVEF of 65%; mild MR/TR; please see complete and official report Chest x-ray: Preliminary evaluation: No acute cardiopulmonary disease process appreciated: Please see official report Assessment/Plan 1. Atrial fibrillation with rapid ventricular response The patient has recurrent atrial fibrillation with rapid ventricular response. This may have occurred based on a combination of her age, her underlying current noncardiovascular state and ongoing issues, as well as her history of previous atrial fibrillation. Thus far there is been no evidence of any additional acute cardiovascular/pulmonary related events. The present time she has been treated with IV amiodarone and attempt to assist with rate control and rhythm control. She has remained off of additional rate control agents at this time such as beta blockers or calcium channel antagonist secondary to concerns of her low blood pressure. If she requires additional rate control it may come in the form of digitalis. She has been on anticoagulant therapy in the past. This is been placed on hold noting her need for upcoming general surgery procedures. At the present time she will continue to be monitored. She will continue rate control therapy as deemed appropriate. She will continue with her anti- rhythmic therapy. It is not unreasonable to consider additional anticoagulant therapy in the interim which can be started and stopped as needed in and around the time of her noncardiovascular surgery. An attempt can be made to retrieve [facility] cardiovascular records for continuity of care. In the interim, with respect to her noncardiovascular surgery, as long as she demonstrates a stable cardiovascular course with no additional acute findings and with respect to her atrial dysrhythmia rate control, etc. then hopefully she can proceed with her general surgical evaluation care and following such continue on with her cardiovascular evaluation and care. 2. Hyperlipidemia She will need to continue evaluation care as deemed appropriate. 3. Diabetes mellitus She will continue under the care of internal medicine for this. 5. Cholecystitis/cholelithiasis She will continue evaluation care per general surgery. Again, as long as she remained stable from a cardiovascular standpoint, she should be able to proceed with her upcoming non-cardiovascular surgery with close follow-up of her cardiac rate and rhythm during and following her surgical procedure. Comment: The patient's case was discussed with the patient and her family members present. This note was generated with [email or web address] software. It may contain incorrect words, spelling, and punctuation that were not noted in checking the note before signing.
--- NOTE | 2018-01-06 15:08 | EKG12_ITS ---
Test Reason : AFIB Blood Pressure : / mmHG Vent. Rate : 060 BPM Atrial Rate : 060 BPM P-R Int : 166 ms QRS Dur : 088 ms QT Int : 476 ms P-R-T Axes : 040 013 030 degrees QTc Int : 476 ms Normal sinus rhythm Normal ECG Confirmed by ALEM ROTHMAN, HEATHER ([id number]), video news editor ANNA GÓMEZ ([id number] on 01/10/2018 11:32:18 AM Referred By: MARK BRAGG Confirmed By:HEATHER FERRARA MD
[2018-01-06 17:10] LABS: Bedside Glucose 246 mg/dL (70-110)
[2018-01-06] MEDS: Amitriptyline 10 MG Tablet 20 MG PO (21:41)
[2018-01-06 21:56] LABS: Bedside Glucose 213 mg/dL (70-110)
[2018-01-07] VITALS (27 sets, daily range): BP systolic 115–155; BP diastolic 60–117; PULSE 62–131; RESP 16–28; TEMP 36.5–37.2; O2SAT 92–98
[2018-01-07] MEDS: 0.9% Normal Saline 1,000 ML 125 ML IV (03:23)
[2018-01-07] MEDS: Amiodarone 200 MG Tablet PO (04:58)
[2018-01-07] MEDS: Acetaminophen 325 MG Tablet 650 MG PO (06:26)
[2018-01-07] MEDS: Piperacil/Tazobactam 3.375 GM/50 ML ML IV ×3 (06:27→23:20)
--- NOTE | 2018-01-07 06:43 | NURSING ---
CRACKLES HEARD ON LEFT SIDE, GOT ORDER TO D/C FLUID, PATIENT TAKING IN ORAL
[2018-01-07 06:45] LABS: Bedside Glucose 156 mg/dL (70-110)
[2018-01-07 07:58] LABS: Absolute Lymphocyte Count 0.97 X10^3/ul (0.83-4.51); Absolute Neutrophil Count 5.4 X10^3/uL (2.0-7.7); Basophil# 0.02 X10^3/uL; Basophil% 0.3 % (0-1); Eosinophil# 0.27 X10^3/uL; Eosinophils% 3.8 % (0-5); Hematocrit 29.5 % (37-47); Hemoglobin 9.3 g/dl (12.0-15.0); Lymphocyte # 0.97 X10^3/ul (4.0); Lymphocyte % 13.7 % (19-41); Mean Corp Hgb Conc 31.5 g/gl (32-36); Mean Corpuscular Hgb 27.7 pg (27.0-32.0); Mean Corpuscular Volume 87.8 fL (81-99); Mean Platelet Vol. 10.3 fl (6.2-12.0); Monocyte% 5.6 % (0-10); Neutrophil # 5.41 X10^3/uL (2.7-7.7); Neutrophil % 76.3 % (47-70); Platelet Count 242 K/mm3 (150-450); RBC Distribution Width CV 15.2 % (11.6-14.6); Red Blood Count 3.36 M/mm3 (4.2-5.4); White Blood Count 7.1 K/mm3 (4.4-11.0)
[2018-01-07 08:04] LABS: POSITIVE COUNT NO; POSITIVE DIFFERENTIAL NO; POSITIVE MORPHOLOGY NO
[2018-01-07 08:15] LABS: ALB/GLOB Ratio 0.6 RATIO (0.9-2.4); AST(SGOT) 32 U/L (15-37); Alanine Aminotransfer ALT/SGPT 81 U/L (13-56); Albumin, Serum 2.1 g/dL (3.2-5.0); Alkaline Phosphatase 269 U/L (45-117); Anion Gap 8 (5-15); BUN 23 mg/dL (7-18); BUN/Creat Ratio 17.6 RATIO (10-20); Calcium,Total 7.9 mg/dL (8.5-10.1); Chloride 112 mmol/L (98-107); Creatinine, Serum 1.31 mg/dL (0.55-1.02); EST Glomerular Filtration Rate 42 mL/min (>60); Est Glom Filt Rate - Afr Amer 51 mL/min (>60); Estimated Creatinine Clearance 36.28 ml/min; Globulin 3.8 g/dL (2.2-4.2); Glucose 160 mg/dL (74-106); Potassium 4.1 mmol/L (3.5-5.1); Protein, Total 5.9 g/dL (6.4-8.2); Sodium Level 143 mmol/L (136-145)
[2018-01-07] MEDS: Allopurinol 100 MG Tablet 200 MG PO (08:30)
[2018-01-07] MEDS: Gabapentin 300 MG Capsule PO ×4 (08:30→21:49)
[2018-01-07] MEDS: Glimepiride 2 MG Tablet PO (08:31)
[2018-01-07] MEDS: Insulin Lispro 100 UNIT/ML INSULN.PEN SQ ×4 (08:32→21:49)
--- NOTE | 2018-01-07 10:04 | PCM.PN.HOSP ---
Patient Problems: Active and Suspected Problems Abdominal pain (Acute) Atrial fibrillation (Acute) Cholecystitis with cholelithiasis (Acute) Subjective: Patient seen and examined this morning. She has no complaints and feels very well. She denies any fever or chills, any cough or chest pain, shortness of breath, any abdominal pain, any diarrhea vomiting. Review of systems otherwise negative. 12 point review of systems otherwise negative. Vitals/I&O's: Vital Signs Temp Pulse Resp BP Pulse Ox 98.9 F 62 18 139/71 H 97 01/07/18 05:01 01/07/18 06:55 01/07/18 05:01 01/07/18 05:01 01/07/18 05:01 Oxygen Delivery Method Room Air Weight: 227 lb 15.327 oz Body Mass Index (BMI) 34.6 Intake and Output for Last 24 Hours 01/05/18 01/06/18 01/07/18 23:59 23:59 23:59 Intake Total 4090 / 4090 3216.7 / 3216.7 1168 / 1168 Output Total 900 / 900 Balance 3190 / 3190 3216.7 / 3216.7 1168 / 1168 General: Alert, Oriented x3, Cooperative, No apparent distress HEENT: Atraumatic, PERRLA, EOMI, Normocephalic, - - Sclera is jaundiced. Oral: Moist Mucosa Neck: Supple, No JVD, Negative Carotid Bruits Lungs: Clear to auscultation, Normal air movement, No rhonchi, No wheeze, No rales Cardiovascular: Regular rate, Regular Rhythm, Normal S1, Normal S2, No murmurs Abdomen: Bowel Sounds Present, Soft, Non Tender, Non-Distended, No Hepato-splenomegaly, - - Negative Birch sign. Extremities: No clubbing, No cyanosis, No edema, Capillary Refill Less than 3 Seconds Skin: No rashes, No breakdown Musculoskeletal: No Tenderness to Palpation of Joints or Extremities Lymphatic: No Cervical, Supraclavicular, or Inguinal Adenopathy Neurological: Cranial nerves II-XII grossly intact, Motor Exam 5/5 strength throughout Psych/Mental Status: Normal Affect, Appropriate, Alert and oriented to time, place, person, mood and affect Laboratory Results 01/06/18 11:20: POC Glucose 272 H 01/06/18 17:02: POC Glucose 246 H 01/06/18 21:38: POC Glucose 213 H 01/07/18 06:38: POC Glucose 156 H 01/07/18 07:40: WBC 7.1, RBC 3.36 L, Hgb 9.3 L, Hct 29.5 L, MCV 87.8, MCH 27.7, MCHC 31.5 L, RDW 15.2 H, RDW Differential 49.0 H, Plt Count 242, MPV 10.3, Immature Gran % (Auto) 0.300, Neut % (Auto) 76.3 H, Lymph % (Auto) 13.7 L, [place] % (Auto) 5.6, Eos % (Auto) 3.8, Baso % (Auto) 0.3, Absolute Neuts (auto) 5.4, Absolute Lymphs (auto) 0.97, Total Counted Not Reportable 01/07/18 07:40: Sodium 143, Potassium 4.1, Chloride 112 H, Carbon Dioxide 23.0, Anion Gap 8, BUN 23 H, Creatinine 1.31 H, Estim Creat Clear Calc 36.28, Est GFR (MDRD) Af Amer 51 L, Est GFR (MDRD) Non-Af 42 L, BUN/Creatinine Ratio 17.6, Glucose 160 H, Calcium 7.9 L, Total Bilirubin 2.30 H, AST 32, ALT 81 H, Alkaline Phosphatase 269 H, Total Protein 5.9 L, Albumin 2.1 L, Globulin 3.8, Albumin/Globulin Ratio 0.6 L Diagnostic Data Abdomen/Pelvis CT 01/05/18 02:01 IMPRESSION: 1. Sludge within a mildly distended gallbladder but without definitive evidence of acute cholecystitis. 2. Minimal sigmoid colonic diverticulosis with no CT evidence of acute diverticulitis. 3. Shotty retroperitoneal and root of the mesentery lymph nodes with subtle hazy fat stranding, potentially representing a mesenteric panniculitis. 4. Hypoattenuated foci in the liver which are too small to characterize but which likely represent cysts versus hemangiomas MR which could be further characterized by MR imaging of the liver.. Electronically Signed: Mat Lee MD at 3:40 EDT Tel , Service support , Chest X-Ray 01/05/18 02:05 IMPRESSION: No evidence of acute cardiopulmonary disease. Electronically Signed: Mat Lee MD at 2:55 EDT Tel , Service support , Gallbladder Ultrasound 01/05/18 07:00 IMPRESSION: There is gallbladder sludge and multiple stones. Electronically Signed: Ai Caruso MD at 12:35 EDT , Service support , Current Medications Acetaminophen (Tylenol) 650 mg PO Q6H PRN PRN PRN Reason: Non-cardiac pain (mod-severe) Last Admin: 01/07/18 06:26 Dose: 650 mg Hydrocodone Bitart/Acetaminophen ([place] 5mg-325mg) 1 - 2 tablet PO Q6H PRN PRN PRN Reason: Moderate-severe pain [facility] Last Admin: 01/07/18 08:30 Dose: 200 mg Amiodarone HCl (Cordarone) 200 mg PO DAILY [facility] Last Admin: 01/07/18 04:58 Dose: 200 mg Amitriptyline HCl (Elavil) 20 mg PO QHS [facility] Last Admin: 01/06/18 21:41 Dose: 20 mg Dextrose (D50w Syringe) 0 gm IV X1 PRN; Protocol PRN Reason: Hypoglycemia Dextrose (D50w Syringe) 0 gm IV X1 PRN; Protocol PRN Reason: Hypoglycemia Gabapentin (Neurontin) 300 [facility] Last Admin: 01/07/18 08:30 Dose: 300 mg Glimepiride (Amaryl) 2 mg PO DAILY@0800 [facility] Last Admin: 01/07/18 08:31 Dose: 2 mg Glucagon () 1 mg IM .X1 PRN PRN Reason: Hypoglycemia Glucagon () 1 mg IM .X1 PRN PRN Reason: Hypoglycemia Hydralazine HCl (Apresoline Iv) 10 mg IV Q4H PRN PRN PRN Reason: SBP > 160 Sodium Chloride () 250 mls @ 15 mls/hr IV .[id number] PRN PRN Reason: SALINE FLUSH Last Admin: 01/05/18 14:11 Dose: 15 mls/hr Piperacillin Sod/Tazobactam Sod (Zosyn) 3.375 gm in 50 mls @ 12.5 mls/hr IV Q8 [facility] Last Admin: 01/07/18 06:27 Dose: 12.5 mls/hr Pantoprazole Sodium 40 mg/ (Sodium Chloride) 110 mls @ 330 mls/hr IV Q12 [facility] Last Admin: 01/06/18 21:42 Dose: 330 mls/hr Insulin Glargine (Lantus (Bk)) 20 units SC QHS [facility] Last Admin: 01/06/18 21:42 Dose: 20 u Insulin Human Lispro (Humalog Kwikpen ([facility])) 0 unit SQ ACHS ARLETTE PRN Reason: Protocol Last Admin: 01/07/18 08:32 Dose: 1 units Morphine Sulfate () 2 - 4 mg IV Q1H PRN PRN PRN Reason: SEVERE PAIN (6-10/10) Morphine Sulfate () 2 - 4 mg IV Q1H PRN PRN PRN Reason: SEVERE PAIN (6-10/10) Ondansetron HCl (Zofran) 4 mg IV Q8H PRN PRN Sodium Chloride () 5 - 30 ml IV UD PRN PRN Reason: SALINE FLUSH Last Admin: 01/06/18 05:14 Dose: 5 ml Medical Necessity - Tobacco Use Smoking Status: Never smoker Assessment/Plan All Active Problems Abdominal pain (Acute) Atrial fibrillation (Acute) Cholecystitis with cholelithiasis (Acute) Dehydration (Acute) Diarrhea (Acute) TAWANDA (acute kidney injury) (Acute) 1. Acute choledocholithiasis and cholecycstitis general surgery on board CT showed sludge in the gallbladder total bilirubin trended down from 5.3 to 3.3->2.3 today; AST has normalised to 32 today' ALT down to 81` today; ALP down to 269. gallbladder USG:gallbladder sludge and multiple stones. liver measures 17.5cm. CBD measures 4.8mm leucocytosis has resolved and is down to 10.4 remains on IV zosyn to have cholecystectomy and ERCP as per general surgery discussed with cardiology; cleared for surgery with mild to moderate cardiac risk 2. Paroxysmal A. fib with RVR On Xarelto. Xarelto on hold currently o/a of her going for surgery possibly on Monday now rate and rhythm controlled. cardiology on board now on PO amiodarone 200mg daily, per cardiology 2D echo: EF of about 60% with normal left ventricular systolic function. No regional wall motion abnormalities noted. Left atrium mildly enlarged. Sigmoid septum, mild mitral annular calcification. Mild MR and TR insufficiency and trivial pulmonary valve insufficiency 3. Hypotension: resolved. BP now in the 120s-130s. cause unclear. resolved. BP meds on hold. on IVF. 4. Diabetes mellitus on cardiac diet now on lantus 20IU qhs and glimepiride; will hld lantus and glimepiride o/a of her going for surgery tomorrow ISS accuchecks ACHS 5. history of gout: stable. On allopurinol 6. GI prophylaxis: pantoprazole 8. DVT prophylaxis: PCDs This note was generated with [employer] dictation software. It may contain incorrect words, spelling, and punctuation that were not noted in checking the note before signing. Code Visit Inpatient E&M: 59054 Subs Hosp L3
--- NOTE | 2018-01-07 10:17 | PN_ITS ---
Patient Problems: Active and Suspected Problems Abdominal pain (Acute) Atrial fibrillation (Acute) Cholecystitis with cholelithiasis (Acute) Subjective: Patient seen and examined this morning. She has no complaints and feels very well. She denies any fever or chills, any cough or chest pain, shortness of breath, any abdominal pain, any diarrhea vomiting. Review of systems otherwise negative. 12 point review of systems otherwise negative. Vitals/I&O's: Vital Signs Temp Pulse Resp BP Pulse Ox 98.9 F 62 18 139/71 H 97 01/07/18 05:01 01/07/18 06:55 01/07/18 05:01 01/07/18 05:01 01/07/18 05:01 Oxygen Delivery Method Room Air Weight: 227 lb 15.327 oz Body Mass Index (BMI) 34.6 Intake and Output for Last 24 Hours 01/05/18 01/06/18 01/07/18 23:59 23:59 23:59 Intake Total 4090 / 4090 3216.7 / 3216.7 1168 / 1168 Output Total 900 / 900 Balance 3190 / 3190 3216.7 / 3216.7 1168 / 1168 General: Alert, Oriented x3, Cooperative, No apparent distress HEENT: Atraumatic, PERRLA, EOMI, Normocephalic, - - Sclera is jaundiced. Oral: Moist Mucosa Neck: Supple, No JVD, Negative Carotid Bruits Lungs: Clear to auscultation, Normal air movement, No rhonchi, No wheeze, No rales Cardiovascular: Regular rate, Regular Rhythm, Normal S1, Normal S2, No murmurs Abdomen: Bowel Sounds Present, Soft, Non Tender, Non-Distended, No Hepato- splenomegaly, - - Negative Birch sign. Extremities: No clubbing, No cyanosis, No edema, Capillary Refill Less than 3 Seconds Skin: No rashes, No breakdown Musculoskeletal: No Tenderness to Palpation of Joints or Extremities Lymphatic: No Cervical, Supraclavicular, or Inguinal Adenopathy Neurological: Cranial nerves II-XII grossly intact, Motor Exam 5/5 strength throughout Psych/Mental Status: Normal Affect, Appropriate, Alert and oriented to time, place, person, mood and affect Laboratory Results 01/06/18 11:20: POC Glucose 272 H 01/06/18 17:02: POC Glucose 246 H 01/06/18 21:38: POC Glucose 213 H 01/07/18 06:38: POC Glucose 156 H 01/07/18 07:40: WBC 7.1, RBC 3.36 L, Hgb 9.3 L, Hct 29.5 L, MCV 87.8, MCH 27.7, MCHC 31.5 L, RDW 15.2 H, RDW Differential 49.0 H, Plt Count 242, MPV 10.3, Immature Gran % (Auto) 0.300, Neut % (Auto) 76.3 H, Lymph % (Auto) 13.7 L, [place] % (Auto) 5.6, Eos % (Auto) 3.8, Baso % (Auto) 0.3, Absolute Neuts (auto) 5.4, Absolute Lymphs (auto) 0.97, Total Counted Not Reportable 01/07/18 07:40: Sodium 143, Potassium 4.1, Chloride 112 H, Carbon Dioxide 23.0, Anion Gap 8, BUN 23 H, Creatinine 1.31 H, Estim Creat Clear Calc 36.28, Est GFR (MDRD) Af Amer 51 L, Est GFR (MDRD) Non-Af 42 L, BUN/Creatinine Ratio 17.6, Glucose 160 H, Calcium 7.9 L, Total Bilirubin 2.30 H, AST 32, ALT 81 H, Alkaline Phosphatase 269 H, Total Protein 5.9 L, Albumin 2.1 L, Globulin 3.8, Albumin/Globulin Ratio 0.6 L Diagnostic Data Abdomen/Pelvis CT 01/05/18 02:01 IMPRESSION: 1. Sludge within a mildly distended gallbladder but without definitive evidence of acute cholecystitis. 2. Minimal sigmoid colonic diverticulosis with no CT evidence of acute diverticulitis. 3. Shotty retroperitoneal and root of the mesentery lymph nodes with subtle hazy fat stranding, potentially representing a mesenteric panniculitis. 4. Hypoattenuated foci in the liver which are too small to characterize but which likely represent cysts versus hemangiomas MR which could be further characterized by MR imaging of the liver.. Electronically Signed: Mat Lee MD at 3:40 EDT Tel , Service support , Chest X-Ray 01/05/18 02:05 IMPRESSION: No evidence of acute cardiopulmonary disease. Electronically Signed: Mat Lee MD at 2:55 EDT Tel , Service support , Gallbladder Ultrasound 01/05/18 07:00 IMPRESSION: There is gallbladder sludge and multiple stones. Electronically Signed: Ai Caruso MD at 12:35 EDT , Service support , Current Medications Acetaminophen (Tylenol) 650 mg PO Q6H PRN PRN PRN Reason: Non-cardiac pain (mod-severe) Last Admin: 01/07/18 06:26 Dose: 650 mg Hydrocodone Bitart/Acetaminophen ([place] 5mg-325mg) 1 - 2 tablet PO Q6H PRN PRN PRN Reason: Moderate-severe pain [facility]rim) [facility] Last Admin: 01/07/18 08:30 Dose: 200 mg Amiodarone HCl (Cordarone) 200 mg PO DAILY [facility] Last Admin: 01/07/18 04:58 Dose: 200 mg Amitriptyline HCl (Elavil) 20 mg PO QHS [facility] Last Admin: 01/06/18 21:41 Dose: 20 mg Dextrose (D50w Syringe) 0 gm IV X1 PRN; Protocol PRN Reason: Hypoglycemia Dextrose (D50w Syringe) 0 gm IV X1 PRN; Protocol PRN Reason: Hypoglycemia Gabapentin (Neurontin) 300 [facility] Last Admin: 01/07/18 08:30 Dose: 300 mg Glimepiride (Amaryl) 2 mg PO DAILY@0800 [facility] Last Admin: 01/07/18 08:31 Dose: 2 mg Glucagon () 1 mg IM .X1 PRN PRN Reason: Hypoglycemia Glucagon () 1 mg IM .X1 PRN PRN Reason: Hypoglycemia Hydralazine HCl (Apresoline Iv) 10 mg IV Q4H PRN PRN PRN Reason: SBP > 160 Sodium Chloride () 250 mls @ 15 mls/hr IV .[id number] PRN PRN Reason: SALINE FLUSH Last Admin: 01/05/18 14:11 Dose: 15 mls/hr Piperacillin Sod/Tazobactam Sod (Zosyn) 3.375 gm in 50 mls @ 12.5 mls/hr IV Q8 [facility] Last Admin: 01/07/18 06:27 Dose: 12.5 mls/hr Pantoprazole Sodium 40 mg/ (Sodium Chloride) 110 mls @ 330 mls/hr IV Q12 [facility] Last Admin: 01/06/18 21:42 Dose: 330 mls/hr Insulin Glargine (Lantus (Bk)) 20 units SC QHS [facility] Last Admin: 01/06/18 21:42 Dose: 20 u Insulin Human Lispro (Humalog Kwikpen ([facility])) 0 unit SQ ACHS ARLETTE PRN Reason: Protocol Last Admin: 01/07/18 08:32 Dose: 1 units Morphine Sulfate () 2 - 4 mg IV Q1H PRN PRN PRN Reason: SEVERE PAIN (6-10/10) Morphine Sulfate () 2 - 4 mg IV Q1H PRN PRN PRN Reason: SEVERE PAIN (6-10/10) Ondansetron HCl (Zofran) 4 mg IV Q8H PRN PRN Sodium Chloride () 5 - 30 ml IV UD PRN PRN Reason: SALINE FLUSH Last Admin: 01/06/18 05:14 Dose: 5 ml Medical Necessity - Tobacco Use Smoking Status: Never smoker Assessment/Plan All Active Problems Abdominal pain (Acute) Atrial fibrillation (Acute) Cholecystitis with cholelithiasis (Acute) Dehydration (Acute) Diarrhea (Acute) TAWANDA (acute kidney injury) (Acute) 1. Acute choledocholithiasis and cholecycstitis * general surgery on board * CT showed sludge in the gallbladder * total bilirubin trended down from 5.3 to 3.3->2.3 today; AST has normalised to 32 today' ALT down to 81` today; ALP down to 269. * gallbladder USG:gallbladder sludge and multiple stones. liver measures 17.5cm. CBD measures 4.8mm * leucocytosis has resolved and is down to 10.4 * remains on IV zosyn * to have cholecystectomy and ERCP as per general surgery * discussed with cardiology; cleared for surgery with mild to moderate cardiac risk * 2. Paroxysmal A. fib with RVR * On Xarelto. Xarelto on hold currently o/a of her going for surgery possibly on Monday * now rate and rhythm controlled. * cardiology on board * now on PO amiodarone 200mg daily, per cardiology * 2D echo: EF of about 60% with normal left ventricular systolic function. No regional wall motion abnormalities noted. Left atrium mildly enlarged. Sigmoid septum, mild mitral annular calcification. Mild MR and TR insufficiency and trivial pulmonary valve insufficiency * 3. Hypotension: * resolved. BP now in the 120s-130s. cause unclear. resolved. BP meds on hold. on IVF. 4. Diabetes mellitus * on cardiac diet now * on lantus 20IU qhs and glimepiride; will hld lantus and glimepiride o/a of her going for surgery tomorrow * ISS * accuchecks ACHS * * 5. history of gout: stable. On allopurinol 6. GI prophylaxis: pantoprazole 8. DVT prophylaxis: PCDs This note was generated with [employer] software. It may contain incorrect words, spelling, and punctuation that were not noted in checking the note before signing. Code Visit Inpatient E&M: 02620 Subs Hosp L3
--- NOTE | 2018-01-07 10:54 | PN.SURG_ITS ---
Patient Problems: Active and Suspected Problems Abdominal pain (Acute) Atrial fibrillation (Acute) Cholecystitis with cholelithiasis (Acute) Subjective: Patient denies chest pain, denies abdominal pain, tolerating regular diet - Physical Exam General: Alert, Oriented x3 HEENT: Atraumatic Oral: Moist Mucosa Neck: Supple Lungs: Normal air movement Cardiovascular: - - no further tachycardia Abdomen: Bowel Sounds Present, Soft Vital Signs Temp Pulse Resp BP Pulse Ox 98.9 F 62 18 139/71 H 97 01/07/18 05:01 01/07/18 06:55 01/07/18 05:01 01/07/18 05:01 01/07/18 05:01 Oxygen Delivery Method Room Air Weight: 103.4 kg Body Mass Index (BMI) 34.6 Intake and Output for Last 24 Hours 01/05/18 01/06/18 01/07/18 23:59 23:59 23:59 Intake Total 4090 / 4090 3216.7 / 3216.7 1168 / 1168 Output Total 900 / 900 Balance 3190 / 3190 3216.7 / 3216.7 1168 / 1168 Laboratory Tests Past 24 Hrs 01/07/18 01/07/18 07:40 07:40 WBC 7.1 RBC 3.36 L Hgb 9.3 L Hct 29.5 L MCV 87.8 MCH 27.7 MCHC 31.5 L RDW 15.2 H RDW Differential 49.0 H Plt Count 242 MPV 10.3 Immature Gran % (Auto) 0.300 Neut % (Auto) 76.3 H Lymph % (Auto) 13.7 L [place] % (Auto) 5.6 Eos % (Auto) 3.8 Baso % (Auto) 0.3 Absolute Neuts (auto) 5.4 Absolute Lymphs (auto) 0.97 Total Counted Not Reportable Sodium 143 Potassium 4.1 Chloride 112 H Carbon Dioxide 23.0 Anion Gap 8 BUN 23 H Creatinine 1.31 H Estim Creat Clear Calc 36.28 Est GFR (MDRD) Af Amer 51 L Est GFR (MDRD) Non-Af 42 L BUN/Creatinine Ratio 17.6 Glucose 160 H Calcium 7.9 L Total Bilirubin 2.30 H AST 32 ALT 81 H Alkaline Phosphatase 269 H Total Protein 5.9 L Albumin 2.1 L Globulin 3.8 Albumin/Globulin Ratio 0.6 L POC Glucose 01/07/18 01/06/18 01/06/18 06:38 21:38 17:02 POC Glucose 156 H 213 H 246 H 01/06/18 11:20 POC Glucose 272 H Medical Necessity - Tobacco Use Smoking Status: Never smoker Assessment/Plan All Active Problems Abdominal pain (Acute) Atrial fibrillation (Acute) Cholecystitis with cholelithiasis (Acute) Dehydration (Acute) Diarrhea (Acute) TAWANDA (acute kidney injury) (Acute) Impression: cholelithiasis, cholecystitis, probable choledocholithiasis episode of afib with RVR Plan: tolerating regular diet medical management as per cardiology and hospitalists - appreciate medical management surgery planned for Monday may require ERCP, Dr. Cook already aware -will plan IOC with lap rios
[2018-01-07 11:45] LABS: Bedside Glucose 227 mg/dL (70-110)
--- NOTE | 2018-01-07 12:11 | PCM.PN.CARD ---
Subjectve: The patient is awake and alert. She states she feels better overall. She denies any concerns of chest discomfort, difficulty breathing, or obvious palpitations. Objective: Vital Signs Temp Pulse Resp BP Pulse Ox 98.9 F 66 18 139/71 H 97 01/07/18 05:01 01/07/18 11:00 01/07/18 05:01 01/07/18 05:01 01/07/18 05:01 Oxygen Delivery Method Room Air Weight: 227 lb 15.327 oz Body Mass Index (BMI) 34.6 Intake and Output for Last 24 Hours 01/05/18 01/06/18 01/07/18 23:59 23:59 23:59 Intake Total 4090 / 4090 3216.7 / 3216.7 1168 / 1168 Output Total 900 / 900 Balance 3190 / 3190 3216.7 / 3216.7 1168 / 1168 General: Awake, Alert, Oriented x 3, Cooperative, No Acute Distress Neck: No JVD Lungs: Clear to auscultation Cardiovascular: Regular Rhythm, Normal S1, Normal S2 Abdomen: Bowel Sounds Present, Soft Extremities: No edema 01/07/18 07:40: WBC 7.1, RBC 3.36 L, Hgb 9.3 L, Hct 29.5 L, MCV 87.8, MCH 27.7, MCHC 31.5 L, RDW 15.2 H, RDW Differential 49.0 H, Plt Count 242, MPV 10.3, Immature Gran % (Auto) 0.300, Neut % (Auto) 76.3 H, Lymph % (Auto) 13.7 L, [place] % (Auto) 5.6, Eos % (Auto) 3.8, Baso % (Auto) 0.3, Absolute Neuts (auto) 5.4, Total Counted Not Reportable 01/07/18 07:40: Sodium 143, Potassium 4.1, Chloride 112 H, Carbon Dioxide 23.0, Anion Gap 8, BUN 23 H, Creatinine 1.31 H, Est GFR (MDRD) Af Amer 51 L, Est GFR (MDRD) Non-Af 42 L, BUN/Creatinine Ratio 17.6, Glucose 160 H, Calcium 7.9 L, Total Bilirubin 2.30 H Rhythm: Sinus rhythm Medical Necessity - Tobacco Use Smoking Status: Never smoker Assessment/Plan 1. Atrial fibrillation with rapid ventricular response The patient has recurrent atrial fibrillation with rapid ventricular response. This may have occurred based on a combination of her age, her underlying current noncardiovascular state and ongoing issues, as well as her history of previous atrial fibrillation. Thus far there is been no evidence of any additional acute cardiovascular/pulmonary related events. The patient was treated with IV amiodarone briefly. Her rhythm returned to sinus rhythm. At the present time she will resume beta-carolin therapy. She will also continue low-dose amiodarone therapy. She has been on anticoagulant therapy in the past. This is been placed on hold noting her need for upcoming general surgery procedures. An attempt can be made to retrieve [facility] cardiovascular records for continuity of care. 2. Hyperlipidemia She will need to continue evaluation care as deemed appropriate. 3. Diabetes mellitus She will continue under the care of internal medicine for this. 5. Cholecystitis/cholelithiasis She will continue evaluation care per general surgery. At the present time she appears to be remaining stable with respect to her clinical status/rhythm. Thus, she should be able to proceed with her noncardiac surgery. She will need monitoring her cardiac rate, rhythm, blood pressure during and following her surgical procedure. Comment: The patient's case was discussed with the patient and the [facility] staff. This note was generated with [employer] dictation software. It may contain incorrect words, spelling, and punctuation that were not noted in checking the note before signing.
--- NOTE | 2018-01-07 12:14 | PN.CARD_ITS ---
Subjectve: The patient is awake and alert. She states she feels better overall. She denies any concerns of chest discomfort, difficulty breathing, or obvious palpitations. Objective: Vital Signs Temp Pulse Resp BP Pulse Ox 98.9 F 66 18 139/71 H 97 01/07/18 05:01 01/07/18 11:00 01/07/18 05:01 01/07/18 05:01 01/07/18 05:01 Oxygen Delivery Method Room Air Weight: 227 lb 15.327 oz Body Mass Index (BMI) 34.6 Intake and Output for Last 24 Hours 01/05/18 01/06/18 01/07/18 23:59 23:59 23:59 Intake Total 4090 / 4090 3216.7 / 3216.7 1168 / 1168 Output Total 900 / 900 Balance 3190 / 3190 3216.7 / 3216.7 1168 / 1168 General: Awake, Alert, Oriented x 3, Cooperative, No Acute Distress Neck: No JVD Lungs: Clear to auscultation Cardiovascular: Regular Rhythm, Normal S1, Normal S2 Abdomen: Bowel Sounds Present, Soft Extremities: No edema 01/07/18 07:40: WBC 7.1, RBC 3.36 L, Hgb 9.3 L, Hct 29.5 L, MCV 87.8, MCH 27.7, MCHC 31.5 L, RDW 15.2 H, RDW Differential 49.0 H, Plt Count 242, MPV 10.3, Immature Gran % (Auto) 0.300, Neut % (Auto) 76.3 H, Lymph % (Auto) 13.7 L, [place] % (Auto) 5.6, Eos % (Auto) 3.8, Baso % (Auto) 0.3, Absolute Neuts (auto) 5.4, Total Counted Not Reportable 01/07/18 07:40: Sodium 143, Potassium 4.1, Chloride 112 H, Carbon Dioxide 23.0, Anion Gap 8, BUN 23 H, Creatinine 1.31 H, Est GFR (MDRD) Af Amer 51 L, Est GFR ( MDRD) Non-Af 42 L, BUN/Creatinine Ratio 17.6, Glucose 160 H, Calcium 7.9 L, Total Bilirubin 2.30 H Rhythm: Sinus rhythm Medical Necessity - Tobacco Use Smoking Status: Never smoker Assessment/Plan 1. Atrial fibrillation with rapid ventricular response The patient has recurrent atrial fibrillation with rapid ventricular response. This may have occurred based on a combination of her age, her underlying current noncardiovascular state and ongoing issues, as well as her history of previous atrial fibrillation. Thus far there is been no evidence of any additional acute cardiovascular/pulmonary related events. The patient was treated with IV amiodarone briefly. Her rhythm returned to sinus rhythm. At the present time she will resume beta-carolin therapy. She will also continue low-dose amiodarone therapy. She has been on anticoagulant therapy in the past. This is been placed on hold noting her need for upcoming general surgery procedures. An attempt can be made to retrieve [facility] cardiovascular records for continuity of care. 2. Hyperlipidemia She will need to continue evaluation care as deemed appropriate. 3. Diabetes mellitus She will continue under the care of internal medicine for this. 5. Cholecystitis/cholelithiasis She will continue evaluation care per general surgery. At the present time she appears to be remaining stable with respect to her clinical status/rhythm. Thus , she should be able to proceed with her noncardiac surgery. She will need monitoring her cardiac rate, rhythm, blood pressure during and following her surgical procedure. Comment: The patient's case was discussed with the patient and the [facility] staff. This note was generated with [employer] dictation software. It may contain incorrect words, spelling, and punctuation that were not noted in checking the note before signing.
--- NOTE | 2018-01-07 14:23 | EKG12_ITS ---
Test Reason : A-FIB Blood Pressure : / mmHG Vent. Rate : 121 BPM Atrial Rate : 312 BPM P-R Int : 000 ms QRS Dur : 086 ms QT Int : 298 ms P-R-T Axes : 000 024 027 degrees QTc Int : 423 ms Atrial fibrillation Abnormal ECG Confirmed by ALEM ROTHMAN, HEATHER ([id number]), multimedia editor ANNA GÓMEZ ([id number]) on 01/10/2018 11:31:26 AM Referred By: MARK BRAGG Confirmed By:HEATHER FERRARA MD
[2018-01-07] MEDS: Carvedilol 25 MG Tablet PO ×2 (14:42→21:58)
[2018-01-07 16:55] LABS: Bedside Glucose 247 mg/dL (70-110)
[2018-01-07] MEDS: Amitriptyline 10 MG Tablet 20 MG PO (21:49)
[2018-01-07 22:40] LABS: Bedside Glucose 307 mg/dL (70-110)
--- NOTE | 2018-01-07 23:19 | EKG12_ITS ---
Test Reason : NSR Blood Pressure : / mmHG Vent. Rate : 068 BPM Atrial Rate : 068 BPM P-R Int : 156 ms QRS Dur : 090 ms QT Int : 434 ms P-R-T Axes : 027 -03 007 degrees QTc Int : 461 ms Normal sinus rhythm Voltage criteria for left ventricular hypertrophy Abnormal ECG Confirmed by ALEM ROTHMAN, HEATHER ([id number]), copy editor ANNA GÓMEZ ([id number]) on 01/10/2018 11:30:09 AM Referred By: DR FERRARA Confirmed By:HEATHER FERRARA MD
[2018-01-07] MEDS: 0.9% NaCl Peripheral Flush Adult/Peds IV (23:23)
[2018-01-08] VITALS (28 sets, daily range): BP systolic 106–166; BP diastolic 49–133; PULSE 58–95; RESP 15–24; TEMP 36.1–37.1; O2SAT 94–99
[2018-01-08 06:04] LABS: Absolute Lymphocyte Count 1.23 X10^3/ul (0.83-4.51); Absolute Neutrophil Count 4.7 X10^3/uL (2.0-7.7); Basophil# 0.03 X10^3/uL; Basophil% 0.4 % (0-1); Eosinophil# 0.25 X10^3/uL; Eosinophils% 3.7 % (0-5); Hematocrit 30.4 % (37-47); Hemoglobin 9.5 g/dl (12.0-15.0); Lymphocyte # 1.23 X10^3/ul (4.0); Lymphocyte % 18.2 % (19-41); Mean Corp Hgb Conc 31.3 g/gl (32-36); Mean Corpuscular Hgb 27.3 pg (27.0-32.0); Mean Corpuscular Volume 87.4 fL (81-99); Mean Platelet Vol. 10.4 fl (6.2-12.0); Monocyte# 0.58 X10^3/uL; Monocyte% 8.6 % (0-10); Neutrophil # 4.66 X10^3/uL (2.7-7.7); Neutrophil % 68.8 % (47-70); Platelet Count 247 K/mm3 (150-450); RBC Distribution Width SD 48.1 fl (35.1-43.9); Red Blood Count 3.48 M/mm3 (4.2-5.4); White Blood Count 6.8 K/mm3 (4.4-11.0)
[2018-01-08 06:06] LABS: POSITIVE COUNT NO; POSITIVE DIFFERENTIAL NO; POSITIVE MORPHOLOGY NO
[2018-01-08] MEDS: Piperacil/Tazobactam 3.375 GM/50 ML ML IV ×2 (06:17→23:15)
[2018-01-08 06:31] LABS: Bedside Glucose 192 mg/dL (70-110)
[2018-01-08 06:32] LABS: International Normalized Ratio 1.1; Prothrombin Time (Protime)PT. 13.8 SECONDS (11.7-14.9)
[2018-01-08 06:42] LABS: ALB/GLOB Ratio 0.5 RATIO (0.9-2.4); AST(SGOT) 25 U/L (15-37); Alanine Aminotransfer ALT/SGPT 63 U/L (13-56); Alkaline Phosphatase 276 U/L (45-117); Anion Gap 10 (5-15); BUN 25 mg/dL (7-18); BUN/Creat Ratio 19.2 RATIO (10-20); Calcium,Total 8.2 mg/dL (8.5-10.1); Chloride 110 mmol/L (98-107); EST Glomerular Filtration Rate 42 mL/min (>60); Est Glom Filt Rate - Afr Amer 51 mL/min (>60); Estimated Creatinine Clearance 36.56 ml/min; Globulin 3.8 g/dL (2.2-4.2); Glucose 199 mg/dL (74-106); Potassium 4.1 mmol/L (3.5-5.1); Protein, Total 5.8 g/dL (6.4-8.2); Sodium Level 142 mmol/L (136-145)
[2018-01-08] MEDS: Allopurinol 100 MG Tablet 200 MG PO (08:59)
[2018-01-08] MEDS: Gabapentin 300 MG Capsule PO ×3 (08:59→22:00)
[2018-01-08] MEDS: Carvedilol 25 MG Tablet PO ×2 (09:00→22:00)
[2018-01-08] MEDS: Amiodarone 200 MG Tablet PO (09:00)
--- NOTE | 2018-01-08 11:06 | PCM.PN.HOSP ---
Patient Problems: Active and Suspected Problems Abdominal pain (Acute) Atrial fibrillation (Acute) Cholecystitis with cholelithiasis (Acute) Subjective: Patient seen and examined. She had no complaints and felt well. She denied any fever or chills, cough or chest pain, shortness of breath, any abdominal pain, any diarrhea vomiting. She was started back on amiodarone drip overnight because she went into A. fib with RVR again. She was rate controlled at time of review. Vitals and labs reviewed. Vitals/I&O's: Vital Signs Temp Pulse Resp BP Pulse Ox 98.0 F 59 L 21 H 141/64 H 97 01/08/18 10:00 01/08/18 10:00 01/08/18 10:00 01/08/18 10:00 01/08/18 10:00 Oxygen Delivery Method Room Air Weight: 227 lb 15.327 oz Body Mass Index (BMI) 34.6 Intake and Output for Last 24 Hours 01/06/18 01/07/18 01/08/18 23:59 23:59 23:59 Intake Total 3216.7 / 3216.7 3899 / 3899 208 / 208 Output Total 950 / 950 700 / 700 Balance 3216.7 / 3216.7 2949 / 2949 -492 / -492 General: Alert, Oriented x3, Cooperative, No apparent distress HEENT: Atraumatic, PERRLA, EOMI, Normocephalic, - - jaundice has resolved significantly Oral: Moist Mucosa Neck: Supple, No JVD, Negative Carotid Bruits Lungs: Clear to auscultation, Normal air movement Cardiovascular: Regular rate, Regular Rhythm, Normal S1, Normal S2, No murmurs Abdomen: Bowel Sounds Present, Soft, Non Tender Extremities: No clubbing, No cyanosis, No edema, Capillary Refill Less than 3 Seconds Skin: No rashes, No breakdown Musculoskeletal: No Tenderness to Palpation of Joints or Extremities Lymphatic: No Cervical, Supraclavicular, or Inguinal Adenopathy Neurological: Cranial nerves II-XII grossly intact, Motor Exam 5/5 strength throughout Psych/Mental Status: Normal Affect, Appropriate, Alert and oriented to time, place, person, mood and affect Laboratory Results 01/07/18 11:40: POC Glucose 227 H 01/07/18 16:30: POC Glucose 247 H 01/07/18 21:41: POC Glucose 307 H 01/08/18 05:32: WBC 6.8, RBC 3.48 L, Hgb 9.5 L, Hct 30.4 L, MCV 87.4, MCH 27.3, MCHC 31.3 L, RDW 15.0 H, RDW Differential 48.1 H, Plt Count 247, MPV 10.4, Immature Gran % (Auto) 0.300, Neut % (Auto) 68.8, Lymph % (Auto) 18.2 L, [place] % (Auto) 8.6, Eos % (Auto) 3.7, Baso % (Auto) 0.4, Absolute Neuts (auto) 4.7, Absolute Lymphs (auto) 1.23, Total Counted Not Reportable 01/08/18 05:32: Sodium 142, Potassium 4.1, Chloride 110 H, Carbon Dioxide 22.0, Anion Gap 10, BUN 25 H, Creatinine 1.30 H, Estim Creat Clear Calc 36.56, Est GFR (MDRD) Af Amer 51 L, Est GFR (MDRD) Non-Af 42 L, BUN/Creatinine Ratio 19.2, Glucose 199 H, Calcium 8.2 L, Total Bilirubin 1.50 H, AST 25, ALT 63 H, Alkaline Phosphatase 276 H, Total Protein 5.8 L, Albumin 2.0 L, Globulin 3.8, Albumin/Globulin Ratio 0.5 L 01/08/18 05:32: PT 13.8, INR 1.1 01/08/18 06:23: POC Glucose 192 H Current Medications Acetaminophen (Tylenol) 650 mg PO Q6H PRN PRN PRN Reason: Non-cardiac pain (mod-severe) Last Admin: 01/07/18 06:26 Dose: 650 mg Hydrocodone Bitart/Acetaminophen ([place] 5mg-325mg) 1 - 2 tablet PO Q6H PRN PRN PRN Reason: Moderate-severe pain [facility] ([facility]op[facility]) [facility] Last Admin: 01/08/18 08:59 Dose: 200 mg Amiodarone HCl (Cordarone) 200 mg PO DAILY [facility] Last Admin: 01/08/18 09:00 Dose: 200 mg Amitriptyline [facility] ([facility]avil) [facility] Last Admin: 01/07/18 21:49 Dose: 20 mg Carvedilol (Coreg) 25 mg PO BID [facility] Last Admin: 01/08/18 09:00 Dose: 25 mg Dextrose (D50w Syringe) 0 gm IV X1 PRN; Protocol PRN Reason: Hypoglycemia Gabapentin (Neurontin) 300 mg PO 4X/DAYCM [facility] Last Admin: 01/08/18 08:59 Dose: 300 mg Glucagon () 1 mg IM .X1 PRN PRN Reason: Hypoglycemia Hydralazine HCl (Apresoline Iv) 10 mg IV Q4H PRN PRN PRN Reason: SBP > 160 Sodium Chloride () 250 mls @ 15 mls/hr IV .[id number] PRN PRN Reason: SALINE FLUSH Last Admin: 01/05/18 14:11 Dose: 15 mls/hr Piperacillin Sod/Tazobactam Sod (Zosyn) 3.375 gm in 50 mls @ 12.5 mls/hr IV Q8 [facility] Last Admin: 01/08/18 06:17 Dose: 12.5 mls/hr Pantoprazole Sodium 40 mg/ (Sodium Chloride) 110 mls @ 330 mls/hr IV Q12 [facility] Last Admin: 01/08/18 10:32 Dose: 330 mls/hr Amiodarone HCl 360 mg/ (Dextrose) 200 mls @ 16.66 mls/hr CONT INF .Q12H1M [facility] PRN Reason: 0.5 MG/MIN Last Admin: 01/08/18 10:33 Dose: 16.66 mls/hr Insulin Human Lispro (Humalog Kwikpen (Bkc)) 0 unit SQ ACHS [facility] PRN Reason: Protocol Last Admin: 01/08/18 09:02 Dose: Not Given Morphine Sulfate () 2 - 4 mg IV Q1H PRN PRN PRN Reason: SEVERE PAIN (6-10/10) Morphine Sulfate () 2 - 4 mg IV Q1H PRN PRN PRN Reason: SEVERE PAIN (6-10/10) Ondansetron HCl (Zofran) 4 mg IV Q8H PRN PRN Sodium Chloride () 5 - 30 ml IV UD PRN PRN Reason: SALINE FLUSH Last Admin: 01/07/18 23:23 Dose: 10 ml Medical Necessity - Tobacco Use Smoking Status: Never smoker Assessment/Plan All Active Problems Abdominal pain (Acute) Atrial fibrillation (Acute) Cholecystitis with cholelithiasis (Acute) Dehydration (Acute) Diarrhea (Acute) TAWANDA (acute kidney injury) (Acute) 1. Acute choledocholithiasis and cholecycstitis general surgery on board CT showed sludge in the gallbladder total bilirubin trended down from 5.3 to 3.3->2.3->1/50 today AST has normalised and ALT down to 63; ALP is 276 today. gallbladder USG:gallbladder sludge and multiple stones. liver measures 17.5cm. CBD measures 4.8mm leucocytosis has resolved and is down to 10.4 remains on IV zosyn to have cholecystectomy and ERCP as per general surgery today discussed with cardiology; cleared for surgery with mild to moderate cardiac risk 2. Paroxysmal A. fib with RVR On Xarelto. Xarelto on hold currently o/a of her going for surgery possibly on Monday was put back on IV amiodarone drip overnight because she went into RVR again; currently rate and rhythm controlled at time of review. cardiology on board on amiodarone 200mg daily. 2D echo: EF of about 60% with normal left ventricular systolic function. No regional wall motion abnormalities noted. Left atrium mildly enlarged. Sigmoid septum, mild mitral annular calcification. Mild MR and TR insufficiency and trivial pulmonary valve insufficiency 3. Hypertension was hypotensive on admission, which resolved with IVF. on carvedilol 25mg bid. 4. Diabetes mellitus currently NPO o/a of going for surgery today on lantus 20IU qhs and glimepiride; on hold due to her going for surgery. ISS accuchecks ACHS 5. history of gout: stable. On allopurinol 6. GI prophylaxis: pantoprazole 8. DVT prophylaxis: PCDs This note was generated with [employer] software. It may contain incorrect words, spelling, and punctuation that were not noted in checking the note before signing. Code Visit Inpatient E&M: 84406 Subs Hosp L2
--- NOTE | 2018-01-08 11:13 | PN_ITS ---
Patient Problems: Active and Suspected Problems Abdominal pain (Acute) Atrial fibrillation (Acute) Cholecystitis with cholelithiasis (Acute) Subjective: Patient seen and examined. She had no complaints and felt well. She denied any fever or chills, cough or chest pain, shortness of breath, any abdominal pain, any diarrhea vomiting. She was started back on amiodarone drip overnight because she went into A. fib with RVR again. She was rate controlled at time of review. Vitals and labs reviewed. Vitals/I&O's: Vital Signs Temp Pulse Resp BP Pulse Ox 98.0 F 59 L 21 H 141/64 H 97 01/08/18 10:00 01/08/18 10:00 01/08/18 10:00 01/08/18 10:00 01/08/18 10:00 Oxygen Delivery Method Room Air Weight: 227 lb 15.327 oz Body Mass Index (BMI) 34.6 Intake and Output for Last 24 Hours 01/06/18 01/07/18 01/08/18 23:59 23:59 23:59 Intake Total 3216.7 / 3216.7 3899 / 3899 208 / 208 Output Total 950 / 950 700 / 700 Balance 3216.7 / 3216.7 2949 / 2949 -492 / -492 General: Alert, Oriented x3, Cooperative, No apparent distress HEENT: Atraumatic, PERRLA, EOMI, Normocephalic, - - jaundice has resolved significantly Oral: Moist Mucosa Neck: Supple, No JVD, Negative Carotid Bruits Lungs: Clear to auscultation, Normal air movement Cardiovascular: Regular rate, Regular Rhythm, Normal S1, Normal S2, No murmurs Abdomen: Bowel Sounds Present, Soft, Non Tender Extremities: No clubbing, No cyanosis, No edema, Capillary Refill Less than 3 Seconds Skin: No rashes, No breakdown Musculoskeletal: No Tenderness to Palpation of Joints or Extremities Lymphatic: No Cervical, Supraclavicular, or Inguinal Adenopathy Neurological: Cranial nerves II-XII grossly intact, Motor Exam 5/5 strength throughout Psych/Mental Status: Normal Affect, Appropriate, Alert and oriented to time, place, person, mood and affect Laboratory Results 01/07/18 11:40: POC Glucose 227 H 01/07/18 16:30: POC Glucose 247 H 01/07/18 21:41: POC Glucose 307 H 01/08/18 05:32: WBC 6.8, RBC 3.48 L, Hgb 9.5 L, Hct 30.4 L, MCV 87.4, MCH 27.3, MCHC 31.3 L, RDW 15.0 H, RDW Differential 48.1 H, Plt Count 247, MPV 10.4, Immature Gran % (Auto) 0.300, Neut % (Auto) 68.8, Lymph % (Auto) 18.2 L, [place] % (Auto) 8.6, Eos % (Auto) 3.7, Baso % (Auto) 0.4, Absolute Neuts (auto) 4.7, Absolute Lymphs (auto) 1.23, Total Counted Not Reportable 01/08/18 05:32: Sodium 142, Potassium 4.1, Chloride 110 H, Carbon Dioxide 22.0, Anion Gap 10, BUN 25 H, Creatinine 1.30 H, Estim Creat Clear Calc 36.56, Est GFR (MDRD) Af Amer 51 L, Est GFR (MDRD) Non-Af 42 L, BUN/Creatinine Ratio 19.2, Glucose 199 H, Calcium 8.2 L, Total Bilirubin 1.50 H, AST 25, ALT 63 H, Alkaline Phosphatase 276 H, Total Protein 5.8 L, Albumin 2.0 L, Globulin 3.8, Albumin/Globulin Ratio 0.5 L 01/08/18 05:32: PT 13.8, INR 1.1 01/08/18 06:23: POC Glucose 192 H Current Medications Acetaminophen (Tylenol) 650 mg PO Q6H PRN PRN PRN Reason: Non-cardiac pain (mod-severe) Last Admin: 01/07/18 06:26 Dose: 650 mg Hydrocodone Bitart/Acetaminophen ([place] 5mg-325mg) 1 - 2 tablet PO Q6H PRN PRN PRN Reason: Moderate-severe pain [facility]op[facility] ([facility]oprim) [facility] Last Admin: 01/08/18 08:59 Dose: 200 mg Amiodarone HCl (Cordarone) 200 mg PO DAILY [facility] Last Admin: 01/08/18 09:00 Dose: 200 mg Amitriptyline [facility] ([facility]il) [facility] Last Admin: 01/07/18 21:49 Dose: 20 mg Carvedilol (Coreg) 25 mg PO BID [facility] Last Admin: 01/08/18 09:00 Dose: 25 mg Dextrose (D50w Syringe) 0 gm IV X1 PRN; Protocol PRN Reason: Hypoglycemia Gabapentin (Neurontin) 300 mg PO 4X/DAYCM [facility] Last Admin: 01/08/18 08:59 Dose: 300 mg Glucagon () 1 mg IM .X1 PRN PRN Reason: Hypoglycemia Hydralazine HCl (Apresoline Iv) 10 mg IV Q4H PRN PRN PRN Reason: SBP > 160 Sodium Chloride () 250 mls @ 15 mls/hr IV .[id number] PRN PRN Reason: SALINE FLUSH Last Admin: 01/05/18 14:11 Dose: 15 mls/hr Piperacillin Sod/Tazobactam Sod (Zosyn) 3.375 gm in 50 mls @ 12.5 mls/hr IV Q8 [facility] Last Admin: 01/08/18 06:17 Dose: 12.5 mls/hr Pantoprazole Sodium 40 mg/ (Sodium Chloride) 110 mls @ 330 mls/hr IV Q12 [facility] Last Admin: 01/08/18 10:32 Dose: 330 mls/hr Amiodarone HCl 360 mg/ (Dextrose) 200 mls @ 16.66 mls/hr CONT INF .Q12H1M [facility] PRN Reason: 0.5 MG/MIN Last Admin: 01/08/18 10:33 Dose: 16.66 mls/hr Insulin Human Lispro (Humalog Kwikpen (Bkc)) 0 unit SQ ACHS [facility] PRN Reason: Protocol Last Admin: 01/08/18 09:02 Dose: Not Given Morphine Sulfate () 2 - 4 mg IV Q1H PRN PRN PRN Reason: SEVERE PAIN (6-10/10) Morphine Sulfate () 2 - 4 mg IV Q1H PRN PRN PRN Reason: SEVERE PAIN (6-10/10) Ondansetron HCl (Zofran) 4 mg IV Q8H PRN PRN Sodium Chloride () 5 - 30 ml IV UD PRN PRN Reason: SALINE FLUSH Last Admin: 01/07/18 23:23 Dose: 10 ml Medical Necessity - Tobacco Use Smoking Status: Never smoker Assessment/Plan All Active Problems Abdominal pain (Acute) Atrial fibrillation (Acute) Cholecystitis with cholelithiasis (Acute) Dehydration (Acute) Diarrhea (Acute) TAWANDA (acute kidney injury) (Acute) 1. Acute choledocholithiasis and cholecycstitis * general surgery on board * CT showed sludge in the gallbladder * total bilirubin trended down from 5.3 to 3.3->2.3->1/50 today * AST has normalised and ALT down to 63; ALP is 276 today. * gallbladder USG:gallbladder sludge and multiple stones. liver measures 17.5cm. CBD measures 4.8mm * leucocytosis has resolved and is down to 10.4 * remains on IV zosyn * to have cholecystectomy and ERCP as per general surgery today * discussed with cardiology; cleared for surgery with mild to moderate cardiac risk * 2. Paroxysmal A. fib with RVR * On Xarelto. Xarelto on hold currently o/a of her going for surgery possibly on Monday * was put back on IV amiodarone drip overnight because she went into RVR again; currently rate and rhythm controlled at time of review. * cardiology on board * on amiodarone 200mg daily. * 2D echo: EF of about 60% with normal left ventricular systolic function. No regional wall motion abnormalities noted. Left atrium mildly enlarged. Sigmoid septum, mild mitral annular calcification. Mild MR and TR insufficiency and trivial pulmonary valve insufficiency * 3. Hypertension * was hypotensive on admission, which resolved with IVF. * on carvedilol 25mg bid. * 4. Diabetes mellitus * currently NPO o/a of going for surgery today * on lantus 20IU qhs and glimepiride; on hold due to her going for surgery. * ISS * accuchecks ACHS * * 5. history of gout: stable. On allopurinol 6. GI prophylaxis: pantoprazole 8. DVT prophylaxis: PCDs This note was generated with [employer] dictation software. It may contain incorrect words, spelling, and punctuation that were not noted in checking the note before signing. Code Visit Inpatient E&M: 83278 Subs Hosp L2
[2018-01-08 11:56] LABS: Bedside Glucose 193 mg/dL (70-110)
--- NOTE | 2018-01-08 14:50 | GALL_PTH ---
PATIENT: YENNIFER JARAMILLO LOC: PCU U#:[id number] AGE/SX: 77/F ROOM: [facility] RE01/05/[address]: Dr. Claudette Bojorquez MD : [id number] BED: 1 DIS: 01/11/2018 SPEC #: [id number] RECD: 01/09/18 09:07 STATUS: LIV REYaima #: [id number] CHRISTI: 01/08/18 14:[address]: Claudette Bojorquez DEPT: SURGICAL PATHOLOGY RECD BY: Brody Valdez ENTERED: 01/09/18 09:31 SP TYPE: MELVI GARZA DR: MD Dr. Ayaan Reyes MD Dr. William Lago, MD Tissues: Gallbladder, NOS Procedures: Surgery Specimen Level III HEADER OPERATION: Laparoscopic, cholecystectomy with IOC PRE-OP DIAGNOSIS: Acute cholecystitis TISSUE SUBMITTED: Gallbladder MICROSCOPIC DIAGNOSIS Gallbladder: Acute and chronic cholecystitis and cholelithiasis. SHARON:gillian 01/10/18 MICROSCOPIC DESCRIPTION Slides are reviewed. GROSS DESCRIPTION Received is one container labeled with the patient's name and designated gallbladder. The specimen consists of a gallbladder measuring 8 cm in length and up to 4 cm in diameter. The external surface is pink-holt, smooth and glistening for the most part. Focally it is granular, hemorrhagic and contains cautery artifact. The gallbladder contains green-yellow mucoid bile and multiple black irregular stones measuring in aggregate 3 x 2 x 0.3 cm and 0.1 to 0.3 cm in greatest dimension. The mucosa is bile-stained and without any mass lesions. The gallbladder wall measures up to 0.3 cm in thickness. Wagon Person sections from the gallbladder and the cystic duct are submitted in one cassette. / SHARON:gillian 01/09/18 TC:2 CPT: 46868
--- NOTE | 2018-01-08 14:50 | RAD_ITS ---
CLINICAL HISTORY: Female, 77 years old. Stones PROCEDURE: CHOLANGIOGRAM - intraoperative FLUOROSCOPY TIME (if supplied): (0:04) minutes/seconds TECHNIQUE: (Single intraoperative view) FINDINGS: There is contrast within intra and extrahepatic bile ducts. There is filling defect of the distal duct consistent with stone. RAD/Cholangiogram/ O R,Initial IMPRESSION: Intraoperative fluoroscopy. Electronically Signed: Domingo Sarabia MD at 21:21 EDT , Service support ,
[2018-01-08] MEDS: Bupiv/Epi 0.5% Mpf 30 ML Vial (16:03)
--- NOTE | 2018-01-08 16:20 | PCM.IMDPSTOP ---
Immediate Post-Op Note Date of Procedure: 01/08/18 Primary Surgeon/Physician: Claudette Bojorquez centrex radio operator: Abbie Darden Pre-Operative Diagnosis: cholelithiasis, acute cholecystitis, choledocholithiasis Post-Operative Diagnosis: cholelithiasis, acute on chronic cholecystitis, choledocholithiasis with obstruction Surgery/Procedure Performed:: laparoscopic cholecystectomy with cholangiograms Description of Surgical Findings:: IOC- meniscus representing choledocholithiasis, no flow into duodenum, acute on chronic cholecystitis Estimated Blood Loss: < 5 ml Specimen's removed: gallbladder and contents Drains: 15 Fr drain in right upper quadrant Type of Anesthesia:: General ASA Class: ASA3 Severe Disease - Admit VTE Documentation VTE Present on Admission: Yes VTE Mechan Device Prophylaxis: SCD's
--- NOTE | 2018-01-08 16:24 | OP.PN_ITS ---
Immediate Post-Op Note Date of Procedure: 01/08/18 Primary Surgeon/Physician: Claudette Bojorquez lens matcher: Abbie Darden Pre-Operative Diagnosis: cholelithiasis, acute cholecystitis, choledocholithiasis Post-Operative Diagnosis: cholelithiasis, acute on chronic cholecystitis, choledocholithiasis with obstruction Surgery/Procedure Performed:: laparoscopic cholecystectomy with cholangiograms Description of Surgical Findings:: IOC- meniscus representing choledocholithiasis, no flow into duodenum, acute on chronic cholecystitis Estimated Blood Loss: < 5 ml Specimen's removed: gallbladder and contents Drains: 15 Fr drain in right upper quadrant Type of Anesthesia:: General ASA Class: ASA3 Severe Disease - Admit VTE Documentation VTE Present on Admission: Yes VTE Mechan Device Prophylaxis: SCD's
--- NOTE | 2018-01-08 16:25 | PCM.OPRPT ---
Report of Operation Date of Procedure: 01/08/18 Pre-Operative Diagnosis: cholelithiasis, acute cholecystitis, choledocholithiasis Post-Operative Diagnosis: cholelithiasis, acute on chronic cholecystitis, choledocholithiasis with obstruction Surgery/Procedure Performed:: laparoscopic cholecystectomy with cholangiograms Description of Surgical Findings:: IOC- meniscus representing choledocholithiasis, no flow into duodenum, acute on chronic cholecystitis experimental electronics developer: Abbie Darden Type of Anesthesia:: General Anesthesiologist: Jaiden Brady Specimen's removed: gallbladder and contents Drains: 15 Fr drain in right upper quadrant Estimated Blood Loss (mL): < 5 ml Fluids Replaced: 700 ml RL Description of Procedure: After informed consent was given, the patient was brought to the Operating Room. Appropriate time out protocol was followed. She was then placed in the supine position. The patient was then placed under general endotracheal anesthesia. The abdomen was then prepped with a sterile surgical skin preparation and sterile surgical drapes were placed. A skin fold superior to the umbilical dimple was grasped with penetrating clamps and the skin and subcutaneous tissues were infiltrated with local anesthetic. A skin incision was then made with a 15 blade scalpel. The anterior abdominal wall was elevated and a Veress needle was carefully inserted into the intraabdominal cavity. It was checked to be in the proper position with a normal saline drop test. A CO2 pneumoperitoneum was then created. Once this was achieved, then the Veress needle was removed and an 11mm trocar was placed in its stead. A 10mm laparoscope was then inserted into the trocar and careful attention was directed to the intraabdominal contents. There was no evidence of injury to any intraabdominal organs from insertion of the Veress needle or the trocar. Under direct visualization, a 5mm subxiphoid trocar and two lateral 5mm right subcostal trocars were placed. The skin and subcutaneous tissues at these sites were infiltrated with local anesthetic prior to placement of these trocars. Attention was then directed to the right upper quadrant of the abdomen. There were omental adhesions to the free surface of the gallbladder. The gallbladder wall was edematous appearing. Graspers were placed in the lateral trocars to grasp the distal aspect of the gallbladder and direct it cephalad and to grasp the gallbladder at Hartmans pouch and direct it laterally. Dissection then began on the proximal gallbladder continuing down to the area of the triangle of Calot to bluntly dissect out the cystic duct. The neck of the gallbladder was identified and blunt dissection continued to dissect out a segment of the cystic duct. A clip was then placed on the neck of the gallbladder. A small ductotomy was then made. A Ranfac catheter was brought in through a separate skin incision and placed into the cystic duct. An intraoperative cholangiogram was performed under fluoroscopy. The xray revealed a meniscus with no flow into the duodenum, there was good arborization of the biliary tree. The Ranfac catheter was then removed and three clips were placed proximal to the ductotomy and the cystic duct was then transected. The cystic artery was visualized and bluntly isolated and then two clips were placed proximally and one clip distally and then it was transected between the proximal and distal clips. The gallbladder was then from the liver bed using electrocautery and thus able to be brought out of the umbilical port. It was then forwarded to pathology for analysis. The liver bed was carefully examined. There was no evidence of bile leakage or bleeding. The cystic duct stump and cystic artery stump had their clips intact and there was no evidence of bile leakage or bleeding. The remainder of the abdomen was grossly normal. A 15 Fr drain was placed in the right upper quadrant and the drainage bed was positioned at the inferior aspect of the liver. The CO2 was released and all trocars removed intact. The superio-iumbilical fascia was approximated with a [id number] 0 vicryl suture. All skin incision were closed with 4-0 monocryl in a subdermal fashion. Cavilol and Steristrips were used to reinforce the skin closure. Sterile dressings were applied to all wounds. The patient was extubated and brought to the Recovery Room in stable condition. - Complications none noted - Admit VTE Documentation VTE Present on Admission: Yes VTE Mechan Device Prophylaxis: SCD's
[2018-01-08 17:31] LABS: Bedside Glucose 181 mg/dL (70-110)
[2018-01-08] MEDS: Morphine 2 MG/ML Syringe IV ×2 (18:15→22:18)
[2018-01-08] MEDS: 0.9% NaCl Peripheral Flush Adult/Peds IV (18:17)
--- NOTE | 2018-01-08 18:41 | PCM.PN.CARD ---
Subjectve: The patient is now status post her operative procedure. She appears to be resting comfortably with no acute complaints. She is noted to be back in sinus rhythm. Objective: Vital Signs Temp Pulse Resp BP Pulse Ox 97.6 F L 58 L 21 H 143/59 H 95 01/08/18 18:00 01/08/18 18:00 01/08/18 18:00 01/08/18 18:00 01/08/18 18:00 Oxygen Flow Rate (L/min) 3 Oxygen Delivery Method Nasal Cannula Weight: 227 lb 15.327 oz Body Mass Index (BMI) 34.6 Finger Stick Blood Glucose 181 Intake and Output for Last 24 Hours 01/06/18 01/07/18 01/08/18 23:59 23:59 23:59 Intake Total 3216.7 / 3216.7 3899 / 3899 1608 / 1608 Output Total 950 / 950 1930 / 1930 Balance 3216.7 / 3216.7 2949 / 2949 -322 / -322 General: Awake, Alert, Oriented x 3, No Acute Distress Lungs: Clear to auscultation Cardiovascular: Regular Rhythm, Normal S1, Normal S2 01/08/18 05:32: WBC 6.8, RBC 3.48 L, Hgb 9.5 L, Hct 30.4 L, MCV 87.4, MCH 27.3, MCHC 31.3 L, RDW 15.0 H, RDW Differential 48.1 H, Plt Count 247, MPV 10.4, Immature Gran % (Auto) 0.300, Neut % (Auto) 68.8, Lymph % (Auto) 18.2 L, [place] % (Auto) 8.6, Eos % (Auto) 3.7, Baso % (Auto) 0.4, Absolute Neuts (auto) 4.7, Total Counted Not Reportable 01/08/18 05:32: Sodium 142, Potassium 4.1, Chloride 110 H, Carbon Dioxide 22.0, Anion Gap 10, BUN 25 H, Creatinine 1.30 H, Est GFR (MDRD) Af Amer 51 L, Est GFR (MDRD) Non-Af 42 L, BUN/Creatinine Ratio 19.2, Glucose 199 H, Calcium 8.2 L, Total Bilirubin 1.50 H 01/08/18 05:32: PT 13.8, INR 1.1 Rhythm: Sinus rhythm Medical Necessity - Tobacco Use Smoking Status: Never smoker Assessment/Plan 1. Atrial fibrillation with rapid ventricular response The patient has recurrent atrial fibrillation with rapid ventricular response. This may have occurred based on a combination of her age, her underlying current noncardiovascular state and ongoing issues, as well as her history of previous atrial fibrillation. Thus far there is been no evidence of any additional acute cardiovascular/pulmonary related events. The patient had recurrent atrial fibrillation. She was placed back on IV amiodarone. She is now status post her operative procedure. She is in sinus rhythm at the moment. At the present time her IV amiodarone will be continued pending further evaluation and care tomorrow. 2. Hyperlipidemia She will need to continue evaluation care as deemed appropriate. 3. Diabetes mellitus She will continue under the care of internal medicine for this. 5. Cholecystitis/cholelithiasis He will continue evaluation care per internal medicine and general surgery. This note was generated with [employer] dictation software. It may contain incorrect words, spelling, and punctuation that were not noted in checking the note before signing.
[2018-01-08] MEDS: Amitriptyline 10 MG Tablet 20 MG PO (22:00)
[2018-01-08] MEDS: Insulin Lispro 100 UNIT/ML INSULN.PEN SQ (22:01)
[2018-01-08] MEDS: 0.9% NaCl IVPB Med Flush (250 mL) 15 ML IV (22:19)
[2018-01-08 23:15] LABS: Bedside Glucose 231 mg/dL (70-110)
[2018-01-09] VITALS (26 sets, daily range): BP systolic 109–157; BP diastolic 42–108; PULSE 60–69; RESP 16–22; TEMP 36.2–36.9; O2SAT 93–100; BMI 34.6
[2018-01-09] MEDS: Piperacil/Tazobactam 3.375 GM/50 ML ML IV ×3 (06:17→22:36)
[2018-01-09 06:33] LABS: Anion Gap 7 (5-15); BUN 20 mg/dL (7-18); BUN/Creat Ratio 14.3 RATIO (10-20); Calcium,Total 8.1 mg/dL (8.5-10.1); Chloride 106 mmol/L (98-107); EST Glomerular Filtration Rate 39 mL/min (>60); Est Glom Filt Rate - Afr Amer 47 mL/min (>60); Estimated Creatinine Clearance 33.95 ml/min; Glucose 221 mg/dL (74-106); Potassium 4.8 mmol/L (3.5-5.1); Sodium Level 139 mmol/L (136-145)
[2018-01-09 07:10] LABS: Bedside Glucose 214 mg/dL (70-110)
--- NOTE | 2018-01-09 07:43 | PN.SURG_ITS ---
Patient Problems: Active and Suspected Problems Abdominal pain (Acute) Atrial fibrillation (Acute) Cholecystitis with cholelithiasis (Acute) Subjective: Patient described no nausea or vomiting today. Her abdominal pain is well controlled. - Physical Exam General: Alert, Oriented x3, Cooperative Lungs: Normal air movement Cardiovascular: Regular rate, Regular Rhythm Abdomen: Soft, Non Tender, Non-Distended, - - LORRAINE is serosanguineous Vital Signs Temp Pulse Resp BP Pulse Ox 98.0 F 65 21 H 126/108 H 96 01/09/18 07:00 01/09/18 07:00 01/09/18 07:00 01/09/18 07:00 01/09/18 07:00 Oxygen Flow Rate (L/min) 3 Oxygen Delivery Method Nasal Cannula Weight: 227 lb 15.327 oz Body Mass Index (BMI) 34.6 Finger Stick Blood Glucose 181 Intake and Output for Last 24 Hours 01/07/18 01/08/18 01/09/18 23:59 23:59 23:59 Intake Total 3899 / 3899 2385 / 2385 242 / 242 Output Total 950 / 950 1979 / 1979 320 / 320 Balance 2949 / 2949 405 / 405 -78 / -78 Laboratory Tests Past 24 Hrs 01/09/18 01/09/18 05:32 05:32 WBC Pending RBC Pending Hgb Pending Hct Pending MCV Pending MCH Pending MCHC Pending RDW Pending RDW Differential Pending Plt Count Pending Neut % (Auto) Pending Absolute Neuts (auto) Pending Total Counted Pending Sodium 139 Potassium 4.8 Chloride 106 Carbon Dioxide 26.0 Anion Gap 7 BUN 20 H Creatinine 1.40 H Estim Creat Clear Calc 33.95 Est GFR (MDRD) Af Amer 47 L Est GFR (MDRD) Non-Af 39 L BUN/Creatinine Ratio 14.3 Glucose 221 H Calcium 8.1 L POC Glucose 01/09/18 01/08/18 01/08/18 07:06 21:55 17:24 POC Glucose 214 H 231 H 181 H 01/08/18 11:33 POC Glucose 193 H Medical Necessity - Tobacco Use Smoking Status: Never smoker Assessment/Plan All Active Problems Abdominal pain (Acute) Atrial fibrillation (Acute) Cholecystitis with cholelithiasis (Acute) Dehydration (Acute) Diarrhea (Acute) TAWANDA (acute kidney injury) (Acute) 77-year-old female with choledocholithiasis 1. Patient had laparoscopic cholecystectomy yesterday and during intraoperative cholangiogram the patient had choledocholithiasis with no passage of contrast into the duodenum. I explained this to the patient this morning and the necessity for ERCP for stone removal. I explained the risks including but not limited to bleeding, infection, perforation of the bile duct or bowels, pancreatitis. I also spent a possibility of having to place a stent or the possibility that I was unable to cannulate the duct. The patient understands the risks and this was explained several times that she could clearly understand. All questions were answered accordingly. Planning on proceeding with ERCP today. Enoch Cook MD Pager: [facility] [address] [place] [address] Office:
[2018-01-09 07:44] LABS: Absolute Lymphocyte Count 1.05 X10^3/ul (0.83-4.51); Absolute Neutrophil Count 6.6 X10^3/uL (2.0-7.7); Basophil# 0.04 X10^3/uL; Basophil% 0.5 % (0-1); Eosinophil# 0.21 X10^3/uL; Eosinophils% 2.5 % (0-5); Hematocrit 29.2 % (37-47); Hemoglobin 9.4 g/dl (12.0-15.0); Lymphocyte # 1.05 X10^3/ul (4.0); Lymphocyte % 12.3 % (19-41); Mean Corp Hgb Conc 32.2 g/gl (32-36); Mean Corpuscular Hgb 28.2 pg (27.0-32.0); Mean Corpuscular Volume 87.7 fL (81-99); Mean Platelet Vol. 10.8 fl (6.2-12.0); Monocyte# 0.56 X10^3/uL; Monocyte% 6.5 % (0-10); Neutrophil % 76.9 % (47-70); POSITIVE COUNT NO; POSITIVE DIFFERENTIAL NO; POSITIVE MORPHOLOGY NO; Platelet Count 270 K/mm3 (150-450); RBC Distribution Width CV 14.9 % (11.6-14.6); RBC Distribution Width SD 46.2 fl (35.1-43.9); Red Blood Count 3.33 M/mm3 (4.2-5.4); White Blood Count 8.6 K/mm3 (4.4-11.0)
[2018-01-09] MEDS: Gabapentin 300 MG Capsule PO ×3 (09:12→21:49)
[2018-01-09] MEDS: Allopurinol 100 MG Tablet 200 MG PO (09:13)
[2018-01-09] MEDS: Amiodarone 200 MG Tablet PO (09:13)
[2018-01-09] MEDS: Carvedilol 25 MG Tablet PO ×2 (09:14→21:49)
--- NOTE | 2018-01-09 10:49 | PN.SURG_ITS ---
Patient Problems: Active and Suspected Problems Abdominal pain (Acute) Atrial fibrillation (Acute) Cholecystitis with cholelithiasis (Acute) Subjective: patient with minimal pain after lap rios tolerating liquids - Physical Exam General: Alert, Oriented x3 HEENT: Atraumatic Oral: Moist Mucosa Neck: Supple Lungs: Normal air movement Abdomen: Bowel Sounds Present, Soft, - - LORRAINE output is serosanguinous Vital Signs Temp Pulse Resp BP Pulse Ox 98.0 F 62 19 H 136/58 H 98 01/09/18 10:00 01/09/18 10:00 01/09/18 10:00 01/09/18 10:00 01/09/18 10:00 Oxygen Flow Rate (L/min) 3 Oxygen Delivery Method Nasal Cannula Weight: 103.4 kg Body Mass Index (BMI) 34.6 Finger Stick Blood Glucose 181 Intake and Output for Last 24 Hours 01/07/18 01/08/18 01/09/18 23:59 23:59 23:59 Intake Total 3899 / 3899 2385 / 2385 242 / 242 Output Total 950 / 950 1979 / 1979 320 / 320 Balance 2949 / 2949 405 / 405 -78 / -78 Laboratory Tests Past 24 Hrs 01/09/18 01/09/18 05:32 05:32 WBC 8.6 RBC 3.33 L Hgb 9.4 L Hct 29.2 L MCV 87.7 MCH 28.2 MCHC 32.2 RDW 14.9 H RDW Differential 46.2 H Plt Count 270 MPV 10.8 Immature Gran % (Auto) 1.300 H Neut % (Auto) 76.9 H Lymph % (Auto) 12.3 L [place] % (Auto) 6.5 Eos % (Auto) 2.5 Baso % (Auto) 0.5 Absolute Neuts (auto) 6.6 Absolute Lymphs (auto) 1.05 Total Counted Not Reportable Sodium 139 Potassium 4.8 Chloride 106 Carbon Dioxide 26.0 Anion Gap 7 BUN 20 H Creatinine 1.40 H Estim Creat Clear Calc 33.95 Est GFR (MDRD) Af Amer 47 L Est GFR (MDRD) Non-Af 39 L BUN/Creatinine Ratio 14.3 Glucose 221 H Calcium 8.1 L POC Glucose 01/09/18 01/08/18 01/08/18 07:06 21:55 17:24 POC Glucose 214 H 231 H 181 H 01/08/18 11:33 POC Glucose 193 H Medical Necessity - Tobacco Use Smoking Status: Never smoker Assessment/Plan All Active Problems Abdominal pain (Acute) Atrial fibrillation (Acute) Cholecystitis with cholelithiasis (Acute) Dehydration (Acute) Diarrhea (Acute) TAWANDA (acute kidney injury) (Acute) Impression: s/p lap rios POD#1 - cholelithiasis, cholecystitis, probable choledocholithiasis - awaiting ERCP episode of afib with RVR Plan: awaiting ERCP, Dr. Cook continue present therapy.
--- NOTE | 2018-01-09 11:05 | PCM.PN.HOSP ---
Patient Problems: Active and Suspected Problems Abdominal pain (Acute) Atrial fibrillation (Acute) Cholecystitis with cholelithiasis (Acute) Subjective: Patient seen and examined. She had no complaints and felt well. She is postop day 1 for laparoscopic cholecystectomy and is awaiting ERCP today. She remains on amiodarone on account of A. fib with RVR. She denies any fever, chills, cough, chest pain, SOB, abdominal pain, diarrhea or vomiting. 12 point review of systems otherwise negative. Vitals/I&O's: Vital Signs Temp Pulse Resp BP Pulse Ox 98.0 F 62 19 H 136/58 H 98 01/09/18 10:00 01/09/18 10:00 01/09/18 10:00 01/09/18 10:00 01/09/18 10:00 Oxygen Flow Rate (L/min) 3 Oxygen Delivery Method Nasal Cannula Weight: 227 lb 15.327 oz Body Mass Index (BMI) 34.6 Finger Stick Blood Glucose 181 Intake and Output for Last 24 Hours 01/07/18 01/08/18 01/09/18 23:59 23:59 23:59 Intake Total 3899 / 3899 2385 / 2385 242 / 242 Output Total 950 / 950 1979 / 1979 320 / 320 Balance 2949 / 2949 405 / 405 -78 / -78 General: Alert, Oriented x3, Cooperative HEENT: Atraumatic, PERRLA, EOMI, Normocephalic Oral: Moist Mucosa Neck: Supple, No JVD, Negative Carotid Bruits Lungs: Clear to auscultation, Normal air movement, No rhonchi, No wheeze, No rales Cardiovascular: Regular rate, Regular Rhythm, Normal S1, Normal S2, No murmurs Abdomen: Bowel Sounds Present, Soft, Non Tender, Non-Distended, No Hepato-splenomegaly, - - dressing over laparoscopic site Extremities: No clubbing, No cyanosis, No edema, Capillary Refill Less than 3 Seconds Skin: No rashes, No breakdown Musculoskeletal: No Tenderness to Palpation of Joints or Extremities Lymphatic: No Cervical, Supraclavicular, or Inguinal Adenopathy Neurological: Cranial nerves II-XII grossly intact Psych/Mental Status: Normal Affect, Appropriate, Alert and oriented to time, place, person, mood and affect Laboratory Results 01/08/18 11:33: POC Glucose 193 H 01/08/18 17:24: POC Glucose 181 H 01/08/18 21:55: POC Glucose 231 H 01/09/18 05:32: Sodium 139, Potassium 4.8, Chloride 106, Carbon Dioxide 26.0, Anion Gap 7, BUN 20 H, Creatinine 1.40 H, Estim Creat Clear Calc 33.95, Est GFR (MDRD) Af Amer 47 L, Est GFR (MDRD) Non-Af 39 L, BUN/Creatinine Ratio 14.3, Glucose 221 H, Calcium 8.1 L 01/09/18 05:32: WBC 8.6, RBC 3.33 L, Hgb 9.4 L, Hct 29.2 L, MCV 87.7, MCH 28.2, MCHC 32.2, RDW 14.9 H, RDW Differential 46.2 H, Plt Count 270, MPV 10.8, Immature Gran % (Auto) 1.300 H, Neut % (Auto) 76.9 H, Lymph % (Auto) 12.3 L, [place] % (Auto) 6.5, Eos % (Auto) 2.5, Baso % (Auto) 0.5, Absolute Neuts (auto) 6.6, Absolute Lymphs (auto) 1.05, Total Counted Not Reportable 01/09/18 07:06: POC Glucose 214 H Diagnostic Data Abdomen/Pelvis CT 01/05/18 02:01 IMPRESSION: 1. Sludge within a mildly distended gallbladder but without definitive evidence of acute cholecystitis. 2. Minimal sigmoid colonic diverticulosis with no CT evidence of acute diverticulitis. 3. Shotty retroperitoneal and root of the mesentery lymph nodes with subtle hazy fat stranding, potentially representing a mesenteric panniculitis. 4. Hypoattenuated foci in the liver which are too small to characterize but which likely represent cysts versus hemangiomas MR which could be further characterized by MR imaging of the liver.. Electronically Signed: Mat Lee MD at 3:40 EDT Tel , Service support , Chest X-Ray 01/05/18 02:05 IMPRESSION: No evidence of acute cardiopulmonary disease. Electronically Signed: Mat Lee MD at 2:55 EDT Tel , Service support , Gallbladder Ultrasound 01/05/18 07:00 IMPRESSION: There is gallbladder sludge and multiple stones. Electronically Signed: Ai Caruso MD at 12:35 EDT cf, Service support , Cholangiogram 01/08/18 14:50 IMPRESSION: Intraoperative fluoroscopy. Electronically Signed: Domingo Sarabia MD at 21:21 EDT , Service support , Current Medications Acetaminophen (Tylenol) 650 mg PO Q6H PRN PRN PRN Reason: Non-cardiac pain (mod-severe) Last Admin: 01/07/18 06:26 Dose: 650 mg Hydrocodone Bitart/Acetaminophen ([place] 5mg-325mg) 1 - 2 tablet PO Q6H PRN PRN PRN Reason: Moderate-severe pain [facility] Last Admin: 01/09/18 09:13 Dose: 200 mg Amiodarone HCl (Cordarone) 200 mg PO DAILY [facility] Last Admin: 01/09/18 09:13 Dose: 200 mg Amitriptyline HCl (Elavil) 20 mg PO QHS [facility] Last Admin: 01/08/18 22:00 Dose: 20 mg Carvedilol (Coreg) 25 mg PO BID [facility] Last Admin: 01/09/18 09:14 Dose: 25 mg Dextrose (D50w Syringe) 0 gm IV X1 PRN; Protocol PRN Reason: Hypoglycemia Gabapentin (Neurontin) 300 [facility] Last Admin: 01/09/18 09:12 Dose: 300 mg Glucagon () 1 mg IM .X1 PRN PRN Reason: Hypoglycemia Hydralazine HCl (Apresoline Iv) 10 mg IV Q4H PRN PRN PRN Reason: SBP > 160 Sodium Chloride () 250 mls @ 15 mls/hr IV .[id number] PRN PRN Reason: SALINE FLUSH Last Admin: 01/08/18 22:19 Dose: 15 mls/hr Piperacillin Sod/Tazobactam Sod (Zosyn) 3.375 gm in 50 mls @ 12.5 mls/hr IV Q8 ARLETTE Last Admin: 01/09/18 06:17 Dose: 12.5 mls/hr Pantoprazole Sodium 40 mg/ (Sodium Chloride) 110 mls @ 330 mls/hr IV Q12 ARLETTE Last Admin: 01/08/18 22:00 Dose: 330 mls/hr Amiodarone HCl 360 mg/ (Dextrose) 200 mls @ 16.66 mls/hr CONT INF .Q12H1M ARLETTE PRN Reason: 0.5 MG/MIN Insulin Human Lispro (Humalog Kwikpen (Bkc)) 0 unit SQ ACHS ARLETTE PRN Reason: Protocol Last Admin: 01/09/18 08:54 Dose: Not Given Morphine Sulfate () 2 - 4 mg IV Q1H PRN PRN PRN Reason: SEVERE PAIN (6-10/10) Last Admin: 01/08/18 22:18 Dose: 2 mg Morphine Sulfate () 2 - 4 mg IV Q1H PRN PRN PRN Reason: SEVERE PAIN (6-10/10) Ondansetron HCl (Zofran) 4 mg IV Q8H PRN PRN Sodium Chloride () 5 - 30 ml IV UD PRN PRN Reason: SALINE FLUSH Last Admin: 01/08/18 18:17 Dose: 10 ml Medical Necessity - Tobacco Use Smoking Status: Never smoker Assessment/Plan All Active Problems Abdominal pain (Acute) Atrial fibrillation (Acute) Cholecystitis with cholelithiasis (Acute) Dehydration (Acute) Diarrhea (Acute) TAWANDA (acute kidney injury) (Acute) 1. Acute choledocholithiasis and cholecycstitis s/p laparoscopic cholecystectomy Today's postop day 1. Has no complaints. Awaiting ERCP to take out stone and hepatic duct today. cholangiogram (intraoperative): filling defect in distal bile ducts consistent with stone remains on IV Zosyn. General surgery on board. 2. Paroxysmal A. fib with RVR xarelto remains on hold as she is going for ERCP today. WIll resume it afterwards remains on amiodarone drip. on amiodarone 200mg daily. 2D echo: EF of about 60% with normal left ventricular systolic function. No regional wall motion abnormalities noted. Left atrium mildly enlarged. Sigmoid septum, mild mitral annular calcification. Mild MR and TR insufficiency and trivial pulmonary valve insufficiency 3. Hypertension on carvedilol 25mg bid. 4. Diabetes mellitus currently NPO o/a of ERCP today on lantus 20IU qhs and glimepiride; on hold due to her going for surgery. ISS accuchecks ACHS 5. CKD 3: Cr is 1.4 today, which is around her baseline. Hannah monitor 5. history of gout: stable. On allopurinol 6. GI prophylaxis: pantoprazole 8. DVT prophylaxis: PCDs 9. GI prophylaxis: PPI This note was generated with [employer] dictation software. It may contain incorrect words, spelling, and punctuation that were not noted in checking the note before signing. Code Visit Inpatient E&M: 00121 Subs Hosp L3
--- NOTE | 2018-01-09 11:10 | PN_ITS ---
Patient Problems: Active and Suspected Problems Abdominal pain (Acute) Atrial fibrillation (Acute) Cholecystitis with cholelithiasis (Acute) Subjective: Patient seen and examined. She had no complaints and felt well. She is postop day 1 for laparoscopic cholecystectomy and is awaiting ERCP today. She remains on amiodarone on account of A. fib with RVR. She denies any fever, chills, cough, chest pain, SOB, abdominal pain, diarrhea or vomiting. 12 point review of systems otherwise negative. Vitals/I&O's: Vital Signs Temp Pulse Resp BP Pulse Ox 98.0 F 62 19 H 136/58 H 98 01/09/18 10:00 01/09/18 10:00 01/09/18 10:00 01/09/18 10:00 01/09/18 10:00 Oxygen Flow Rate (L/min) 3 Oxygen Delivery Method Nasal Cannula Weight: 227 lb 15.327 oz Body Mass Index (BMI) 34.6 Finger Stick Blood Glucose 181 Intake and Output for Last 24 Hours 01/07/18 01/08/18 01/09/18 23:59 23:59 23:59 Intake Total 3899 / 3899 2385 / 2385 242 / 242 Output Total 950 / 950 1979 / 1979 320 / 320 Balance 2949 / 2949 405 / 405 -78 / -78 General: Alert, Oriented x3, Cooperative HEENT: Atraumatic, PERRLA, EOMI, Normocephalic Oral: Moist Mucosa Neck: Supple, No JVD, Negative Carotid Bruits Lungs: Clear to auscultation, Normal air movement, No rhonchi, No wheeze, No rales Cardiovascular: Regular rate, Regular Rhythm, Normal S1, Normal S2, No murmurs Abdomen: Bowel Sounds Present, Soft, Non Tender, Non-Distended, No Hepato- splenomegaly, - - dressing over laparoscopic site Extremities: No clubbing, No cyanosis, No edema, Capillary Refill Less than 3 Seconds Skin: No rashes, No breakdown Musculoskeletal: No Tenderness to Palpation of Joints or Extremities Lymphatic: No Cervical, Supraclavicular, or Inguinal Adenopathy Neurological: Cranial nerves II-XII grossly intact Psych/Mental Status: Normal Affect, Appropriate, Alert and oriented to time, place, person, mood and affect Laboratory Results 01/08/18 11:33: POC Glucose 193 H 01/08/18 17:24: POC Glucose 181 H 01/08/18 21:55: POC Glucose 231 H 01/09/18 05:32: Sodium 139, Potassium 4.8, Chloride 106, Carbon Dioxide 26.0, Anion Gap 7, BUN 20 H, Creatinine 1.40 H, Estim Creat Clear Calc 33.95, Est GFR (MDRD) Af Amer 47 L, Est GFR (MDRD) Non-Af 39 L, BUN/Creatinine Ratio 14.3, Glucose 221 H, Calcium 8.1 L 01/09/18 05:32: WBC 8.6, RBC 3.33 L, Hgb 9.4 L, Hct 29.2 L, MCV 87.7, MCH 28.2, MCHC 32.2, RDW 14.9 H, RDW Differential 46.2 H, Plt Count 270, MPV 10.8, Immature Gran % (Auto) 1.300 H, Neut % (Auto) 76.9 H, Lymph % (Auto) 12.3 L, [place] % (Auto) 6.5, Eos % (Auto) 2.5, Baso % (Auto) 0.5, Absolute Neuts (auto) 6.6, Absolute Lymphs (auto) 1.05, Total Counted Not Reportable 01/09/18 07:06: POC Glucose 214 H Diagnostic Data Abdomen/Pelvis CT 01/05/18 02:01 IMPRESSION: 1. Sludge within a mildly distended gallbladder but without definitive evidence of acute cholecystitis. 2. Minimal sigmoid colonic diverticulosis with no CT evidence of acute diverticulitis. 3. Shotty retroperitoneal and root of the mesentery lymph nodes with subtle hazy fat stranding, potentially representing a mesenteric panniculitis. 4. Hypoattenuated foci in the liver which are too small to characterize but which likely represent cysts versus hemangiomas MR which could be further characterized by MR imaging of the liver.. Electronically Signed: Mat Lee MD at 3:40 EDT Tel , Service support , Chest X-Ray 01/05/18 02:05 IMPRESSION: No evidence of acute cardiopulmonary disease. Electronically Signed: Mat Lee MD at 2:55 EDT Tel , Service support , Gallbladder Ultrasound 01/05/18 07:00 IMPRESSION: There is gallbladder sludge and multiple stones. Electronically Signed: Ai Caruso MD at 12:35 EDT cf, Service support , Cholangiogram 01/08/18 14:50 IMPRESSION: Intraoperative fluoroscopy. Electronically Signed: Domingo Sarabia MD at 21:21 EDT , Service support , Current Medications Acetaminophen (Tylenol) 650 mg PO Q6H PRN PRN PRN Reason: Non-cardiac pain (mod-severe) Last Admin: 01/07/18 06:26 Dose: 650 mg Hydrocodone Bitart/Acetaminophen ([place] 5mg-325mg) 1 - 2 tablet PO Q6H PRN PRN PRN Reason: Moderate-severe pain [facility]) [facility] Last Admin: 01/09/18 09:13 Dose: 200 mg Amiodarone HCl (Cordarone) 200 mg PO DAILY [facility] Last Admin: 01/09/18 09:13 Dose: 200 mg Amitriptyline HCl (Elavil) 20 mg PO QHS [facility] Last Admin: 01/08/18 22:00 Dose: 20 mg Carvedilol (Coreg) 25 mg PO BID [facility] Last Admin: 01/09/18 09:14 Dose: 25 mg Dextrose (D50w Syringe) 0 gm IV X1 PRN; Protocol PRN Reason: Hypoglycemia Gabapentin (Neurontin) 300 mg [facility] Last Admin: 01/09/18 09:12 Dose: 300 mg Glucagon () 1 mg IM .X1 PRN PRN Reason: Hypoglycemia Hydralazine HCl (Apresoline Iv) 10 mg IV Q4H PRN PRN PRN Reason: SBP > 160 Sodium Chloride () 250 mls @ 15 mls/hr IV .[id number] PRN PRN Reason: SALINE FLUSH Last Admin: 01/08/18 22:19 Dose: 15 mls/hr Piperacillin Sod/Tazobactam Sod (Zosyn) 3.375 gm in 50 mls @ 12.5 mls/hr IV Q8 ARLETTE Last Admin: 01/09/18 06:17 Dose: 12.5 mls/hr Pantoprazole Sodium 40 mg/ (Sodium Chloride) 110 mls @ 330 mls/hr IV Q12 ARLETTE Last Admin: 01/08/18 22:00 Dose: 330 mls/hr Amiodarone HCl 360 mg/ (Dextrose) 200 mls @ 16.66 mls/hr CONT INF .Q12H1M ARLETTE PRN Reason: 0.5 MG/MIN Insulin Human Lispro (Humalog Kwikpen (Bkc)) 0 unit SQ ACHS ARLETTE PRN Reason: Protocol Last Admin: 01/09/18 08:54 Dose: Not Given Morphine Sulfate () 2 - 4 mg IV Q1H PRN PRN PRN Reason: SEVERE PAIN (6-10/10) Last Admin: 01/08/18 22:18 Dose: 2 mg Morphine Sulfate () 2 - 4 mg IV Q1H PRN PRN PRN Reason: SEVERE PAIN (6-10/10) Ondansetron HCl (Zofran) 4 mg IV Q8H PRN PRN Sodium Chloride () 5 - 30 ml IV UD PRN PRN Reason: SALINE FLUSH Last Admin: 01/08/18 18:17 Dose: 10 ml Medical Necessity - Tobacco Use Smoking Status: Never smoker Assessment/Plan All Active Problems Abdominal pain (Acute) Atrial fibrillation (Acute) Cholecystitis with cholelithiasis (Acute) Dehydration (Acute) Diarrhea (Acute) TAWANDA (acute kidney injury) (Acute) 1. Acute choledocholithiasis and cholecycstitis s/p laparoscopic cholecystectomy * Today's postop day 1. Has no complaints. * Awaiting ERCP to take out stone and hepatic duct today. * cholangiogram (intraoperative): filling defect in distal bile ducts consistent with stone * remains on IV Zosyn. * General surgery on board. * 2. Paroxysmal A. fib with RVR * xarelto remains on hold as she is going for ERCP today. WIll resume it afterwards * remains on amiodarone drip. * on amiodarone 200mg daily. * 2D echo: EF of about 60% with normal left ventricular systolic function. No regional wall motion abnormalities noted. Left atrium mildly enlarged. Sigmoid septum, mild mitral annular calcification. Mild MR and TR insufficiency and trivial pulmonary valve insufficiency * 3. Hypertension * on carvedilol 25mg bid. * 4. Diabetes mellitus * currently NPO o/a of ERCP today * on lantus 20IU qhs and glimepiride; on hold due to her going for surgery. * ISS * accuchecks ACHS * 5. CKD 3: Cr is 1.4 today, which is around her baseline. Hannah monitor 5. history of gout: stable. On allopurinol 6. GI prophylaxis: pantoprazole 8. DVT prophylaxis: PCDs 9. GI prophylaxis: PPI This note was generated with [employer] dictation software. It may contain incorrect words, spelling, and punctuation that were not noted in checking the note before signing. Code Visit Inpatient E&M: 07397 Subs Hosp L3
[2018-01-09 11:46] LABS: Bedside Glucose 196 mg/dL (70-110)
--- NOTE | 2018-01-09 11:55 | RAD_ITS ---
PROCEDURE: Fluoroscopy for ERCP DATE OF EXAMINATION: 01/09/2018 INDICATION: Female, 77years old. Abdominal pain. PHYSICIAN: Dr. Enoch Cook FLUOROSCOPY TIME (if supplied): (540.5) seconds RADIATION DOSAGE (If Supplied By Facility): 353.02 mGy Images: 40 fluoroscopic spot images. PROCEDURE/TECHNIQUE: Intraoperative imaging provided under direction, supervision and review of the intraoperative physician for ERCP. Images show endoscope with balloon catheter pulled distally through the common hepatic duct and CBD corresponding to history given of sphincterectomy, below and, basket and no stones seen. Please see intraoperative note for details. RAD/ERCP Biliary Only IMPRESSION: Fluoroscopic imaging provided for ERCP as described. Please see intraoperative note for details. Electronically Signed: Esteban Lujan, at 13:28 EDT Tel , Service support ,
--- NOTE | 2018-01-09 12:44 | PCM.OPRPT ---
Problem List (1) Choledocholithiasis with acute cholecystitis Status: Acute Report of Operation Date of Procedure: 01/09/18 Pre-Operative Diagnosis: Choledocholithiasis Post-Operative Diagnosis: Same Surgery/Procedure Performed:: ERCP with sphincterotomy Description of Procedure: After describing the risks of the procedure as well as the procedure in detail informed consent was obtained. Patient was brought to the operating room and general anesthesia was induced. The patient was then placed in a semi-prone position. Next, the side-viewing endoscope was placed into the mouth and down into the stomach and advanced into the duodenum. The ampulla was located. There was heavy flow of bile from the common bile duct not indicating any obstruction. A sphinctertome was used to cannulate the common bile duct and location was confirmed on fluoroscopy. The guidewire was placed in the common bile duct and using sphincterotome and electrocautery a sphincterotomy was performed. Hemostasis was good. Next the sphincterotome was removed leaving the guidewire in the common bile duct. A balloon was then introduced over the guidewire and the common bile duct and several sweeps were performed. I was not able to identify a clear bile duct stone. I did put the trapezoid basket into the common bile duct and open it and sweep downward but no stones were captured in the basket. The balloon was removed as well as the guidewire. There was good flow of bile from the common bile duct into the duodenum. The side-viewing scope was then withdrawn back into the stomach and the stomach was suctioned. Next, the scope was removed. The patient was taken to PACU in stable condition. The patient tolerated the procedure well. The stone seen on cholangiogram may have passed overnight. There was free flow of bile before and after the case with no sign of obstruction. - Admit VTE Documentation VTE Mechan Device Prophylaxis: SCD's
[2018-01-09] MEDS: Ipratropium/Albuterol Sulfate 3 ML AMPUL.NEB INHALATION (13:18)
[2018-01-09 14:01] LABS: Bedside Glucose 188 mg/dL (70-110)
[2018-01-09] MEDS: 0.9% NaCl Peripheral Flush Adult/Peds IV ×3 (14:31→21:49)
[2018-01-09] MEDS: Morphine 2 MG/ML Syringe IV (17:05)
[2018-01-09] MEDS: Insulin Lispro 100 UNIT/ML INSULN.PEN SQ ×2 (17:11→21:50)
[2018-01-09 17:20] LABS: Bedside Glucose 271 mg/dL (70-110)
--- NOTE | 2018-01-09 17:27 | PCM.PN.CARD ---
Subjectve: The patient is now status post ERCP. She denies any ongoing chest discomfort or difficulty breathing. She has not noted any obvious palpitations. Objective: Vital Signs Temp Pulse Resp BP Pulse Ox 97.7 F L 61 19 H 135/59 H 94 01/09/18 17:15 01/09/18 17:15 01/09/18 17:15 01/09/18 17:15 01/09/18 17:15 Oxygen Flow Rate (L/min) 1 Oxygen Delivery Method Room Air Weight: 227 lb 15.327 oz Body Mass Index (BMI) 34.6 Finger Stick Blood Glucose 188 Intake and Output for Last 24 Hours 01/07/18 01/08/18 01/09/18 23:59 23:59 23:59 Intake Total 3899 / 3899 2385 / 2385 1042 / 1042 Output Total 950 / 950 1979 / 1979 320 / 320 Balance 2949 / 2949 405 / 405 722 / 722 General: Awake, Alert, Oriented x 3, Cooperative Neck: No JVD Lungs: Clear to auscultation Cardiovascular: Regular Rhythm, Normal S1, Normal S2 Abdomen: Bowel Sounds Present, Soft Extremities: No edema Skin: - - Jaundiced appearing 01/09/18 05:32: Sodium 139, Potassium 4.8, Chloride 106, Carbon Dioxide 26.0, Anion Gap 7, BUN 20 H, Creatinine 1.40 H, Est GFR (MDRD) Af Amer 47 L, Est GFR (MDRD) Non-Af 39 L, BUN/Creatinine Ratio 14.3, Glucose 221 H, Calcium 8.1 L 01/09/18 05:32: WBC 8.6, RBC 3.33 L, Hgb 9.4 L, Hct 29.2 L, MCV 87.7, MCH 28.2, MCHC 32.2, RDW 14.9 H, RDW Differential 46.2 H, Plt Count 270, MPV 10.8, Immature Gran % (Auto) 1.300 H, Neut % (Auto) 76.9 H, Lymph % (Auto) 12.3 L, [place] % (Auto) 6.5, Eos % (Auto) 2.5, Baso % (Auto) 0.5, Absolute Neuts (auto) 6.6, Total Counted Not Reportable Rhythm: Sinus rhythm Medical Necessity - Tobacco Use Smoking Status: Never smoker Assessment/Plan 1. Atrial fibrillation with rapid ventricular response The patient has recurrent atrial fibrillation with rapid ventricular response. This may have occurred based on a combination of her age, her underlying current noncardiovascular state and ongoing issues, as well as her history of previous atrial fibrillation. Thus far there is been no evidence of any additional acute cardiovascular/pulmonary related events. The patient had recurrent atrial fibrillation. She was placed back on IV amiodarone. She is now status post an ERCP. She is in sinus rhythm at the moment. Her IV amiodarone will be discontinued. She will continue oral amiodarone therapy. She will need follow-up of her hepatic studies. 2. Hyperlipidemia She will need to continue evaluation care as deemed appropriate. 3. Diabetes mellitus She will continue under the care of internal medicine for this. 5. Cholecystitis/cholelithiasis He will continue evaluation care per internal medicine and general surgery. This note was generated with [employer] dictation software. It may contain incorrect words, spelling, and punctuation that were not noted in checking the note before signing.
[2018-01-09] MEDS: Amitriptyline 10 MG Tablet 20 MG PO (21:49)
[2018-01-09 22:35] LABS: Bedside Glucose 221 mg/dL (70-110)
[2018-01-10] VITALS (12 sets, daily range): BP systolic 127–160; BP diastolic 52–70; PULSE 59–130; RESP 16–20; TEMP 36.4–37.3; O2SAT 93–98
[2018-01-10] MEDS: Piperacil/Tazobactam 3.375 GM/50 ML ML IV ×3 (05:54→23:18)
[2018-01-10 06:36] LABS: AST(SGOT) 95 U/L (15-37); Alanine Aminotransfer ALT/SGPT 78 U/L (13-56); Alkaline Phosphatase 419 U/L (45-117); Bilirubin, Direct 3.93 mg/dL (0.00-0.30); Globulin 3.9 g/dL (2.2-4.2); Protein, Total 5.9 g/dL (6.4-8.2)
[2018-01-10 06:56] LABS: Bedside Glucose 180 mg/dL (70-110)
[2018-01-10] MEDS: Gabapentin 300 MG Capsule PO ×4 (07:51→22:43)
[2018-01-10] MEDS: Insulin Lispro 100 UNIT/ML INSULN.PEN SQ ×4 (07:52→22:42)
[2018-01-10] MEDS: Allopurinol 100 MG Tablet 200 MG PO (08:01)
[2018-01-10 08:08] LABS: Anion Gap 7 (5-15); BUN 15 mg/dL (7-18); BUN/Creat Ratio 11.2 RATIO (10-20); Calcium,Total 8.3 mg/dL (8.5-10.1); Chloride 107 mmol/L (98-107); Creatinine, Serum 1.34 mg/dL (0.55-1.02); EST Glomerular Filtration Rate 41 mL/min (>60); Est Glom Filt Rate - Afr Amer 49 mL/min (>60); Estimated Creatinine Clearance 35.47 ml/min; Glucose 190 mg/dL (74-106); Potassium 4.2 mmol/L (3.5-5.1); Sodium Level 140 mmol/L (136-145)
[2018-01-10] MEDS: Amiodarone 200 MG Tablet PO (08:13)
[2018-01-10] MEDS: Carvedilol 25 MG Tablet PO ×2 (08:13→22:42)
--- NOTE | 2018-01-10 08:20 | PN.SURG_ITS ---
Patient Problems: Active and Suspected Problems Abdominal pain (Acute) Atrial fibrillation (Acute) Cholecystitis with cholelithiasis (Acute) Choledocholithiasis with acute cholecystitis (Acute) Subjective: Patient is having no abdominal pain this morning. She tolerated clear liquid diet well last night. - Physical Exam General: Alert, Oriented x3, Cooperative Neck: No JVD Cardiovascular: Regular rate Abdomen: Soft, Non Tender Vital Signs Temp Pulse Resp BP Pulse Ox 97.6 F L 60 16 127/52 H 95 01/10/18 03:15 01/10/18 04:07 01/10/18 03:15 01/10/18 03:15 01/10/18 03:15 Oxygen Flow Rate (L/min) 1 Oxygen Delivery Method Room Air Weight: 227 lb 15.327 oz Body Mass Index (BMI) 34.6 Finger Stick Blood Glucose 188 Intake and Output for Last 24 Hours 01/08/18 01/09/18 01/10/18 23:59 23:59 23:59 Intake Total 2385 / 2385 2293 / 2293 Output Total 1979 / 1979 320 / 320 Balance 405 / 405 1972 / 1972 Laboratory Tests Past 24 Hrs 01/10/18 01/10/18 05:55 05:55 Sodium 140 Potassium 4.2 Chloride 107 Carbon Dioxide 26.0 Anion Gap 7 BUN 15 Creatinine 1.34 H Estim Creat Clear Calc 35.47 Est GFR (MDRD) Af Amer 49 L Est GFR (MDRD) Non-Af 41 L BUN/Creatinine Ratio 11.2 Glucose 190 H Calcium 8.3 L Total Bilirubin 4.40 H Direct Bilirubin 3.93 H AST 95 H ALT 78 H Alkaline Phosphatase 419 H Total Protein 5.9 L Albumin 2.0 L Globulin 3.9 POC Glucose 01/10/18 01/09/18 01/09/18 06:42 21:41 17:09 POC Glucose 180 H 221 H 271 H 01/09/18 01/09/18 13:54 11:39 POC Glucose 188 H 196 H Medical Necessity - Tobacco Use Smoking Status: Never smoker Assessment/Plan All Active Problems Abdominal pain (Acute) Atrial fibrillation (Acute) Cholecystitis with cholelithiasis (Acute) Choledocholithiasis with acute cholecystitis (Acute) Dehydration (Acute) Diarrhea (Acute) TAWANDA (acute kidney injury) (Acute) 77-year-old female status post ERCP 1. Patient had ERCP yesterday and no obvious stone was identified. There is good flow at the beginning of the case of bile from the common bile duct. A sphincterotomy was performed and several balloon sweeps and basket sweeps were performed. At the end of the case there is no identifiable stone in the common bile duct and there was good flow of bile. I suspect the patient's increased LFTs today are due to forceful injection of contrast into the common bile duct during balloon cholangiogram yesterday. There was no sign of obstruction at the end of the case and I suspect that they will start to improve. Enoch Cook MD Pager: [facility] [address] [place] [address] [place] [address] Office:
[2018-01-10 11:15] LABS: Bedside Glucose 249 mg/dL (70-110)
--- NOTE | 2018-01-10 13:14 | PCM.PN.HOSP ---
Patient Problems: Active and Suspected Problems Abdominal pain (Acute) Atrial fibrillation (Acute) Cholecystitis with cholelithiasis (Acute) Choledocholithiasis with acute cholecystitis (Acute) Subjective: Patient seen and examined. She had ERCP yesterday but no stone was found. She feels well and has no complaints. She denies any fever or chills, any cough or chest pain, shortness of breath, and abdominal pain, diarrhea vomiting. Labs and vitals reviewed. This been an up trend in her LFTs overnight and this is likely due to the ERCP she had yesterday. Review of systems otherwise negative. Vitals/I&O's: Vital Signs Temp Pulse Resp BP Pulse Ox 98.1 F 62 18 140/65 H 98 01/10/18 09:15 01/10/18 10:59 01/10/18 09:15 01/10/18 09:15 01/10/18 09:15 Oxygen Flow Rate (L/min) 1 Oxygen Delivery Method Room Air Weight: 227 lb 15.327 oz Body Mass Index (BMI) 34.6 Finger Stick Blood Glucose 188 Intake and Output for Last 24 Hours 01/08/18 01/09/18 01/10/18 23:59 23:59 23:59 Intake Total 2385 / 2385 2293 / 2293 Output Total 1979 / 1979 320 / 320 Balance 405 / 405 1972 General: Alert, Oriented x3, Cooperative, No apparent distress HEENT: Atraumatic, PERRLA, EOMI, Normocephalic, - - jaundiced sclera Oral: Moist Mucosa Neck: Supple, No JVD, Negative Carotid Bruits Lungs: Clear to auscultation, Normal air movement, No rhonchi, No wheeze, No rales Cardiovascular: Regular rate, Regular Rhythm, Normal S1, Normal S2, No murmurs Abdomen: Bowel Sounds Present, Soft, Non Tender, Non-Distended, No Hepato-splenomegaly Extremities: No clubbing, No cyanosis, No edema, Capillary Refill Less than 3 Seconds Skin: No rashes, No breakdown Musculoskeletal: No Tenderness to Palpation of Joints or Extremities Lymphatic: No Cervical, Supraclavicular, or Inguinal Adenopathy Neurological: Cranial nerves II-XII grossly intact Psych/Mental Status: Normal Affect, Appropriate, Alert and oriented to time, place, person, mood and affect Laboratory Results 01/09/18 13:54: POC Glucose 188 H 01/09/18 17:09: POC Glucose 271 H 01/09/18 21:41: POC Glucose 221 H 01/10/18 05:55: Total Bilirubin 4.40 H, Direct Bilirubin 3.93 H, AST 95 H, ALT 78 H, Alkaline Phosphatase 419 H, Total Protein 5.9 L, Albumin 2.0 L, Globulin 3.9 01/10/18 05:55: Sodium 140, Potassium 4.2, Chloride 107, Carbon Dioxide 26.0, Anion Gap 7, BUN 15, Creatinine 1.34 H, Estim Creat Clear Calc 35.47, Est GFR (MDRD) Af Amer 49 L, Est GFR (MDRD) Non-Af 41 L, BUN/Creatinine Ratio 11.2, Glucose 190 H, Calcium 8.3 L 01/10/18 06:42: POC Glucose 180 H 01/10/18 11:06: POC Glucose 249 H Current Medications Acetaminophen (Tylenol) 650 mg PO Q6H PRN PRN PRN Reason: Non-cardiac pain (mod-severe) Last Admin: 01/07/18 06:26 Dose: 650 mg Hydrocodone Bitart/Acetaminophen ([place] 5mg-325mg) 1 - 2 tablet PO Q6H PRN PRN PRN Reason: Moderate-severe pain [facility]) [facility] Last Admin: 01/10/18 08:01 Dose: 200 mg Amiodarone HCl (Cordarone) 200 mg PO DAILY [facility] Last Admin: 01/10/18 08:13 Dose: 200 mg Amitriptyline HCl (Elavil) 20 mg PO QHS [facility] Last Admin: 01/09/18 21:49 Dose: 20 mg Carvedilol (Coreg) 25 mg PO BID [facility] Last Admin: 01/10/18 08:13 Dose: 25 mg Dextrose (D50w Syringe) 0 gm IV X1 PRN; Protocol PRN Reason: Hypoglycemia Gabapentin (Neurontin) 300 [facility] Last Admin: 01/10/18 11:10 Dose: 300 mg Glucagon () 1 mg IM .X1 PRN PRN Reason: Hypoglycemia Hydralazine HCl (Apresoline Iv) 10 mg IV Q4H PRN PRN PRN Reason: SBP > 160 Sodium Chloride () 250 mls @ 15 mls/hr IV .[id number] PRN PRN Reason: SALINE FLUSH Last Admin: 01/08/18 22:19 Dose: 15 mls/hr Piperacillin Sod/Tazobactam Sod (Zosyn) 3.375 gm in 50 mls @ 12.5 mls/hr IV Q8 ARLETTE Last Admin: 01/10/18 05:54 Dose: 12.5 mls/hr Pantoprazole Sodium 40 mg/ (Sodium Chloride) 110 mls @ 330 mls/hr IV Q12 ARLETTE Last Admin: 01/10/18 10:58 Dose: 330 mls/hr Insulin Human Lispro (Humalog Kwikpen (Bkc)) 0 unit SQ ACHS ARLETTE PRN Reason: Protocol Last Admin: 01/10/18 11:08 Dose: 3 units Morphine Sulfate () 2 - 4 mg IV Q1H PRN PRN PRN Reason: SEVERE PAIN (6-10/10) Last Admin: 01/09/18 17:05 Dose: 2 mg Morphine Sulfate () 2 - 4 mg IV Q1H PRN PRN PRN Reason: SEVERE PAIN (6-10/10) Ondansetron HCl (Zofran) 4 mg IV Q8H PRN PRN Sodium Chloride () 5 - 30 ml IV UD PRN PRN Reason: SALINE FLUSH Last Admin: 01/09/18 21:49 Dose: 10 ml Medical Necessity - Tobacco Use Smoking Status: Never smoker Assessment/Plan All Active Problems Abdominal pain (Acute) Atrial fibrillation (Acute) Cholecystitis with cholelithiasis (Acute) Choledocholithiasis with acute cholecystitis (Acute) Dehydration (Acute) Diarrhea (Acute) TAWANDA (acute kidney injury) (Acute) 1. Acute choledocholithiasis and cholecycstitis s/p laparoscopic cholecystectomy and ERCP Today's postop day 2 of lap cholecystectomy and POD 1 of ERCP. Has no complaints. no stone was found with ERCP. Jaundiced today, likely due to ERCP procedure. remains on IV zosyn Awaiting ERCP to take out stone and hepatic duct today. cholangiogram (intraoperative): filling defect in distal bile ducts consistent with stone remains on IV Zosyn. General surgery on board. total kane up to 4 today, with ALP-419, AST/ALT 95/78 will monitor LFTs 2. Paroxysmal A. fib with RVR xarelto remains on hold as she is going for ERCP today. will resume eliquis tomorrow remains on amiodarone drip. on amiodarone 200mg daily. 2D echo: EF of about 60% with normal left ventricular systolic function. No regional wall motion abnormalities noted. Left atrium mildly enlarged. Sigmoid septum, mild mitral annular calcification. Mild MR and TR insufficiency and trivial pulmonary valve insufficiency 3. Hypertension on carvedilol 25mg bid. 4. Diabetes mellitus on lantus 20IU qhs and glimepiride; on hold due to her going for surgery. will resume today once she resumes diet ISS accuchecks ACHS 5. CKD 3: Cr is 1.34 today, which is around her baseline. Hannah monitor 5. history of gout: stable. On allopurinol 6. GI prophylaxis: pantoprazole 8. DVT prophylaxis: PCDs 9. GI prophylaxis: PPI This note was generated with [employer] dictation software. It may contain incorrect words, spelling, and punctuation that were not noted in checking the note before signing. Code Visit Inpatient E&M: 86303 Subs Hosp L3
--- NOTE | 2018-01-10 13:20 | PN_ITS ---
Patient Problems: Active and Suspected Problems Abdominal pain (Acute) Atrial fibrillation (Acute) Cholecystitis with cholelithiasis (Acute) Choledocholithiasis with acute cholecystitis (Acute) Subjective: Patient seen and examined. She had ERCP yesterday but no stone was found. She feels well and has no complaints. She denies any fever or chills, any cough or chest pain, shortness of breath, and abdominal pain, diarrhea vomiting. Labs and vitals reviewed. This been an up trend in her LFTs overnight and this is likely due to the ERCP she had yesterday. Review of systems otherwise negative. Vitals/I&O's: Vital Signs Temp Pulse Resp BP Pulse Ox 98.1 F 62 18 140/65 H 98 01/10/18 09:15 01/10/18 10:59 01/10/18 09:15 01/10/18 09:15 01/10/18 09:15 Oxygen Flow Rate (L/min) 1 Oxygen Delivery Method Room Air Weight: 227 lb 15.327 oz Body Mass Index (BMI) 34.6 Finger Stick Blood Glucose 188 Intake and Output for Last 24 Hours 01/08/18 01/09/18 01/10/18 23:59 23:59 23:59 Intake Total 2385 / 2385 2293 / 2293 Output Total 1979 / 1979 320 / 320 Balance 405 / 405 1972 General: Alert, Oriented x3, Cooperative, No apparent distress HEENT: Atraumatic, PERRLA, EOMI, Normocephalic, - - jaundiced sclera Oral: Moist Mucosa Neck: Supple, No JVD, Negative Carotid Bruits Lungs: Clear to auscultation, Normal air movement, No rhonchi, No wheeze, No rales Cardiovascular: Regular rate, Regular Rhythm, Normal S1, Normal S2, No murmurs Abdomen: Bowel Sounds Present, Soft, Non Tender, Non-Distended, No Hepato- splenomegaly Extremities: No clubbing, No cyanosis, No edema, Capillary Refill Less than 3 Seconds Skin: No rashes, No breakdown Musculoskeletal: No Tenderness to Palpation of Joints or Extremities Lymphatic: No Cervical, Supraclavicular, or Inguinal Adenopathy Neurological: Cranial nerves II-XII grossly intact Psych/Mental Status: Normal Affect, Appropriate, Alert and oriented to time, place, person, mood and affect Laboratory Results 01/09/18 13:54: POC Glucose 188 H 01/09/18 17:09: POC Glucose 271 H 01/09/18 21:41: POC Glucose 221 H 01/10/18 05:55: Total Bilirubin 4.40 H, Direct Bilirubin 3.93 H, AST 95 H, ALT 78 H, Alkaline Phosphatase 419 H, Total Protein 5.9 L, Albumin 2.0 L, Globulin 3.9 01/10/18 05:55: Sodium 140, Potassium 4.2, Chloride 107, Carbon Dioxide 26.0, Anion Gap 7, BUN 15, Creatinine 1.34 H, Estim Creat Clear Calc 35.47, Est GFR ( MDRD) Af Amer 49 L, Est GFR (MDRD) Non-Af 41 L, BUN/Creatinine Ratio 11.2, Glucose 190 H, Calcium 8.3 L 01/10/18 06:42: POC Glucose 180 H 01/10/18 11:06: POC Glucose 249 H Current Medications Acetaminophen (Tylenol) 650 mg PO Q6H PRN PRN PRN Reason: Non-cardiac pain (mod-severe) Last Admin: 01/07/18 06:26 Dose: 650 mg Hydrocodone Bitart/Acetaminophen ([place] 5mg-325mg) 1 - 2 tablet PO Q6H PRN PRN PRN Reason: Moderate-severe pain [facility] Last Admin: 01/10/18 08:01 Dose: 200 mg Amiodarone HCl (Cordarone) 200 mg PO DAILY [facility] Last Admin: 01/10/18 08:13 Dose: 200 mg Amitriptyline HCl (Elavil) 20 mg PO QHS [facility] Last Admin: 01/09/18 21:49 Dose: 20 mg Carvedilol (Coreg) 25 mg PO BID [facility] Last Admin: 01/10/18 08:13 Dose: 25 mg Dextrose (D50w Syringe) 0 gm IV X1 PRN; Protocol PRN Reason: Hypoglycemia [facility] ([facility]in) [facility] Last Admin: 01/10/18 11:10 Dose: 300 mg Glucagon () 1 mg IM .X1 PRN PRN Reason: Hypoglycemia Hydralazine HCl (Apresoline Iv) 10 mg IV Q4H PRN PRN PRN Reason: SBP > 160 Sodium Chloride () 250 mls @ 15 mls/hr IV .[id number] PRN PRN Reason: SALINE FLUSH Last Admin: 01/08/18 22:19 Dose: 15 mls/hr Piperacillin Sod/Tazobactam Sod (Zosyn) 3.375 gm in 50 mls @ 12.5 mls/hr IV Q8 [facility] Last Admin: 01/10/18 05:54 Dose: 12.5 mls/hr Pantoprazole Sodium 40 mg/ (Sodium Chloride) 110 mls @ 330 mls/hr IV Q12 [facility] Last Admin: 01/10/18 10:58 Dose: 330 mls/hr Insulin Human Lispro (Humalog Kwikpen (Bkc)) 0 unit SQ ACHS [facility]LE[facility] PRN Reason: Protocol Last Admin: 01/10/18 11:08 Dose: 3 units Morphine Sulfate () 2 - 4 mg IV Q1H PRN PRN PRN Reason: SEVERE PAIN (6-10/10) Last Admin: 01/09/18 17:05 Dose: 2 mg Morphine Sulfate () 2 - 4 mg IV Q1H PRN PRN PRN Reason: SEVERE PAIN (6-10/10) Ondansetron HCl (Zofran) 4 mg IV Q8H PRN PRN Sodium Chloride () 5 - 30 ml IV UD PRN PRN Reason: SALINE FLUSH Last Admin: 01/09/18 21:49 Dose: 10 ml Medical Necessity - Tobacco Use Smoking Status: Never smoker Assessment/Plan All Active Problems Abdominal pain (Acute) Atrial fibrillation (Acute) Cholecystitis with cholelithiasis (Acute) Choledocholithiasis with acute cholecystitis (Acute) Dehydration (Acute) Diarrhea (Acute) TAWANDA (acute kidney injury) (Acute) 1. Acute choledocholithiasis and cholecycstitis s/p laparoscopic cholecystectomy and ERCP * Today's postop day 2 of lap cholecystectomy and POD 1 of ERCP. Has no complaints. * no stone was found with ERCP. Jaundiced today, likely due to ERCP procedure. * remains on IV zosyn * * Awaiting ERCP to take out stone and hepatic duct today. * cholangiogram (intraoperative): filling defect in distal bile ducts consistent with stone * remains on IV Zosyn. * General surgery on board. * total kane up to 4 today, with ALP-419, AST/ALT 95/78 * will monitor LFTs 2. Paroxysmal A. fib with RVR * xarelto remains on hold as she is going for ERCP today. will resume eliquis tomorrow * remains on amiodarone drip. * on amiodarone 200mg daily. * 2D echo: EF of about 60% with normal left ventricular systolic function. No regional wall motion abnormalities noted. Left atrium mildly enlarged. Sigmoid septum, mild mitral annular calcification. Mild MR and TR insufficiency and trivial pulmonary valve insufficiency * 3. Hypertension * on carvedilol 25mg bid. * 4. Diabetes mellitus * on lantus 20IU qhs and glimepiride; on hold due to her going for surgery. * will resume today once she resumes diet * ISS * accuchecks ACHS * 5. CKD 3: Cr is 1.34 today, which is around her baseline. Hannah monitor 5. history of gout: stable. On allopurinol 6. GI prophylaxis: pantoprazole 8. DVT prophylaxis: PCDs 9. GI prophylaxis: PPI This note was generated with [employer] software. It may contain incorrect words, spelling, and punctuation that were not noted in checking the note before signing. Code Visit Inpatient E&M: 64055 Subs Hosp L3
--- NOTE | 2018-01-10 15:51 | CHAPLAIN ---
Type of Pastoral Visit ___ Initial Visit _x__ Follow-up Visit ___ On-call Visit ___ General Patient Visit ___ Spiritual Assessment ___ Family Conference ___ Bereavement ___ Rapid Response ___ Code Blue ___ Other (describe below) Pastoral Care Referral From _x__ Patient ___ Family ___ Nurse ___ Physician ___ [place] Tender Helper ___ Rural Carrier ___ Other (describe below) Sacrament/Intervention _x__ Active listening ___ Anointing ___ Zoroastrian ___ Bereavement ___ Communion ___ Brigida exploration ___ ___ Life review ___ Prayer ___ Reconciliation ___ Sacrament of Sick ___ Supportive presence ___ Wedding ___ Other (describe below) Pastoral Comments
[2018-01-10 16:20] LABS: Bedside Glucose 247 mg/dL (70-110)
[2018-01-10] MEDS: 0.9% NaCl IVPB Med Flush (250 mL) 15 ML IV (16:20)
--- NOTE | 2018-01-10 16:50 | PCM.PN.BLA ---
Progress Note I had offered for patient to be discharged, but she wanted to stay overnight and I will discharge patient in morning. Has elevated LFTs this morning, as per Dr. Cook probably from injection of dye from ERCP and IOC patient denies abdominal pain, remains AF abdomen was soft and benign this morning. I removed drain this morning without difficulties. Will probably discharge patient in the morning tomorrow.
[2018-01-10] MEDS: Amitriptyline 10 MG Tablet 20 MG PO (22:42)
[2018-01-10 23:50] LABS: Bedside Glucose 310 mg/dL (70-110)
[2018-01-11 00:40] VITALS: PULSE 76
[2018-01-11 02:59] VITALS: PULSE 72
[2018-01-11 04:30] VITALS: BP 140/53; PULSE 73; RESP 16; TEMP 37.4; O2SAT 94
[2018-01-11] MEDS: Piperacil/Tazobactam 3.375 GM/50 ML ML IV (05:06)
[2018-01-11 06:33] LABS: ALB/GLOB Ratio 0.5 RATIO (0.9-2.4); AST(SGOT) 83 U/L (15-37); Alanine Aminotransfer ALT/SGPT 84 U/L (13-56); Albumin, Serum 1.9 g/dL (3.2-5.0); Alkaline Phosphatase 419 U/L (45-117); Anion Gap 10 (5-15); BUN 23 mg/dL (7-18); BUN/Creat Ratio 17.2 RATIO (10-20); Calcium,Total 7.9 mg/dL (8.5-10.1); Chloride 106 mmol/L (98-107); Creatinine, Serum 1.34 mg/dL (0.55-1.02); EST Glomerular Filtration Rate 41 mL/min (>60); Est Glom Filt Rate - Afr Amer 49 mL/min (>60); Estimated Creatinine Clearance 35.47 ml/min; Globulin 3.8 g/dL (2.2-4.2); Glucose 257 mg/dL (74-106); Potassium 4.1 mmol/L (3.5-5.1); Protein, Total 5.7 g/dL (6.4-8.2); Sodium Level 139 mmol/L (136-145)
[2018-01-11 06:51] LABS: Bedside Glucose 264 mg/dL (70-110)
[2018-01-11 06:58] VITALS: PULSE 65
[2018-01-11 07:00] LABS: Absolute Lymphocyte Count 1.08 X10^3/ul (0.83-4.51); Absolute Neutrophil Count 5.5 X10^3/uL (2.0-7.7); Basophil# 0.03 X10^3/uL; Basophil% 0.4 % (0-1); Eosinophil# 0.32 X10^3/uL; Eosinophils% 4.1 % (0-5); Hematocrit 26.9 % (37-47); Hemoglobin 8.9 g/dl (12.0-15.0); Lymphocyte # 1.08 X10^3/ul (4.0); Lymphocyte % 13.8 % (19-41); Mean Corp Hgb Conc 33.1 g/gl (32-36); Mean Corpuscular Hgb 28.2 pg (27.0-32.0); Mean Corpuscular Volume 85.1 fL (81-99); Mean Platelet Vol. 10.6 fl (6.2-12.0); Monocyte# 0.77 X10^3/uL; Monocyte% 9.8 % (0-10); Neutrophil # 5.48 X10^3/uL (2.7-7.7); Neutrophil % 69.7 % (47-70); Platelet Count 279 K/mm3 (150-450); RBC Distribution Width CV 14.9 % (11.6-14.6); RBC Distribution Width SD 44.5 fl (35.1-43.9); Red Blood Count 3.16 M/mm3 (4.2-5.4); White Blood Count 7.9 K/mm3 (4.4-11.0)
[2018-01-11 07:04] LABS: POSITIVE COUNT YES; POSITIVE DIFFERENTIAL NO; POSITIVE MORPHOLOGY YES
--- NOTE | 2018-01-11 07:32 | PCM.DC.GB ---
Discharge Diet: No Restrictions - drink plenty of fluids Discharge Activity: Return to Normal Activity, May not drive while taking narcotic pain medications. Lifting Restrictions: no lifting greater than 20 pounds for two weeks Call your doctor if your incision/area has: Continuous Slow Oozing, Foul Smelling Discharge Call your doctor if you observe: Fever of 101 or Higher Additional Dressing/Incision Instructions:: Leave dressings in place. may get wet in shower. Do not soak - no tub baths/swimming Allergies/Adverse Reactions: Allergies iodine Allergy (Verified 01/05/18 01:34) Hives simvastatin Allergy (Verified 01/05/18 01:34) Other Medications to take at Discharge Allopurinol [Zyloprim] 200 mg PO DAILYCM 07/04/13 Amitriptyline HCl [Elavil] 20 mg PO QHS 07/04/13 Cholecalciferol (Vitamin D3) [Vitamin D3] 1,000 unit PO DAILY 07/04/13 Cyanocobalamin (Vitamin B-12) [Vitamin B-12] 1,000 mcg IM QMONTH 07/04/13 Gabapentin [Neurontin] 300 mg PO 4X/DAY 07/04/13 Glimepiride [Amaryl] 2 mg PO DAILY 07/04/13 Lansoprazole [Prevacid] 30 mg PO DAILY 07/04/13 Psyllium Husk [Metamucil] 2 cap PO LUNCH 07/05/13 Colestipol Tablet [Colestid Tablet] 1 gm PO BIDCM 02/05/15 Insulin Glargine,Hum.rec.anlog [Lantus] 20 unit SC QHS 02/05/15 Liraglutide [Victoza 2-Paulie] 1.2 mg SQ DAILY 02/05/15 Multivitamin with Iron [One Daily Plus Iron] 1 each PO DAILY 02/05/15 Carvedilol [Coreg (Beta Aminah)] 50 mg PO BID 01/05/18 Rivaroxaban [Xarelto] 15 mg PO QHS 01/05/18 Hydrocodone Bitart/Apap 5-325 [[place] 5MG-325MG] 1 tab PO Q6H PRN PRN 3 Days #7 tab 01/10/18 The following prescriptions were given: Hydrocodone Bitart/Apap 5-325 [[place] 5MG-325MG] 1 tab PO Q6H PRN PRN 3 Days #7 tab PRN Reason: Pain Primary Care Physician: Stefan Gordon MD [Primary Care Provider] - Test Results: Test results from this visit will be discussed in further detail at your follow-up appointment, if applicable. Please Follow Up With: Claudette Bojorquez MD - call When: next week, please call for date and time, thank you
[2018-01-11] MEDS: Insulin Lispro 100 UNIT/ML INSULN.PEN SQ (08:37)
[2018-01-11] MEDS: Allopurinol 100 MG Tablet 200 MG PO (08:38)
[2018-01-11] MEDS: Gabapentin 300 MG Capsule PO (08:39)
--- NOTE | 2018-01-11 09:25 | PCM.DC.BLA ---
Discharge Summary Date of Admission: 01/05/18 Date of Discharge: 01/11/18 Summary: 77 y/o WF admitted for cholelithiasis, acute cholecystitis and elevated LFTS (presumed choledocholithiasis). Was on xarelto, and patient asymptomatic, awaiting surgery through the weekend. While in hospital, developed afib with RVR, consultation obtained from internal medicine and cardiology and patient treated. Surgery was done on January 08, 2018 with findings of acute on chronic cholecystitis and cholelithiasis, cholangiogram revealed complete obstruction. ERCP done on January 09, 2018 - no stones in CBD, good flow noted. LFTs elevated after procedure, but next day were decreasing - will be followed as outpatient. Patient d/c on January 11, 2018.
--- NOTE | 2018-01-11 09:29 | DS.PCM_ITS ---
Discharge Summary Date of Admission: 01/05/18 Date of Discharge: 01/11/18 Summary: 77 y/o WF admitted for cholelithiasis, acute cholecystitis and elevated LFTS ( presumed choledocholithiasis). Was on xarelto, and patient asymptomatic, awaiting surgery through the weekend. While in hospital, developed afib with RVR, consultation obtained from internal medicine and cardiology and patient treated. Surgery was done on January 08, 2018 with findings of acute on chronic cholecystitis and cholelithiasis, cholangiogram revealed complete obstruction. ERCP done on January 09, 2018 - no stones in CBD, good flow noted. LFTs elevated after procedure, but next day were decreasing - will be followed as outpatient. Patient d/c on January 11, 2018.
[2018-01-11 10:20] VITALS: BP 125/60; PULSE 67; RESP 18; TEMP 37.3; O2SAT 94
[2018-01-11] MEDS: Amiodarone 200 MG Tablet PO (10:21)
[2018-01-11] MEDS: Carvedilol 25 MG Tablet PO (10:22)
[2018-01-11] MEDS: 0.9% NaCl Peripheral Flush Adult/Peds IV (10:25)
[2018-01-11 11:00] VITALS: PULSE 64
--- NOTE | 2018-01-11 11:44 | PCM.PN.HOSP ---
Patient Problems: Active and Suspected Problems Abdominal pain (Acute) Atrial fibrillation (Acute) Cholecystitis with cholelithiasis (Acute) Choledocholithiasis with acute cholecystitis (Acute) Subjective: Patient seen and examined. She has no complaints today. She feels very well and was actually supposed to be discharged yesterday but says she wants to stay 1 more day. She denied any fever or chills, any cough or chest pain, any shortness of breath, any abdominal pain, any diarrhea vomiting. Review of systems is otherwise negative. Labs and vitals reviewed. Vitals/I&O's: Vital Signs Temp Pulse Resp BP Pulse Ox 99.1 F 67 18 125/60 H 94 01/11/18 10:20 01/11/18 10:20 01/11/18 10:20 01/11/18 10:20 01/11/18 10:20 Oxygen Flow Rate (L/min) 1 Oxygen Delivery Method Room Air Weight: 227 lb 15.327 oz Body Mass Index (BMI) 34.6 Finger Stick Blood Glucose 188 Intake and Output for Last 24 Hours 01/09/18 01/10/18 01/11/18 23:59 23:59 23:59 Intake Total 2293 / 2293 613 / 613 Output Total 320 / 320 1925 / 1925 Balance 1972 / 1972 -1312 / -1312 General: Alert, Oriented x3, Cooperative, No apparent distress HEENT: Atraumatic, PERRLA, EOMI, Normocephalic Oral: Moist Mucosa Neck: Supple, No JVD, Negative Carotid Bruits Lungs: Clear to auscultation, Normal air movement, No rhonchi, No wheeze, No rales Cardiovascular: Regular rate, Regular Rhythm, Normal S1, Normal S2, No murmurs Abdomen: Bowel Sounds Present, Soft, Non Tender Extremities: No clubbing, No cyanosis, No edema, Capillary Refill Less than 3 Seconds Skin: No rashes, No breakdown Musculoskeletal: No Tenderness to Palpation of Joints or Extremities Lymphatic: No Cervical, Supraclavicular, or Inguinal Adenopathy Neurological: Cranial nerves II-XII grossly intact, Neuro grossly intact, Motor Exam 5/5 strength throughout Psych/Mental Status: Normal Affect, Appropriate, Alert and oriented to time, place, person, mood and affect Laboratory Results 01/10/18 16:13: POC Glucose 247 H 01/10/18 22:40: POC Glucose 310 H 01/11/18 05:30: WBC 7.9, RBC 3.16 L, Hgb 8.9 L, Hct 26.9 L, MCV 85.1, MCH 28.2, MCHC 33.1, RDW 14.9 H, RDW Differential 44.5 H, Plt Count 279, MPV 10.6, Immature Gran % (Auto) 2.200 H, Neut % (Auto) 69.7, Lymph % (Auto) 13.8 L, [place] % (Auto) 9.8, Eos % (Auto) 4.1, Baso % (Auto) 0.4, Absolute Neuts (auto) 5.5, Absolute Lymphs (auto) 1.08, Total Counted Not Reportable, Diff Path Review October01/11/18 05:30: Sodium 139, Potassium 4.1, Chloride 106, Carbon Dioxide 23.0, Anion Gap 10, BUN 23 H, Creatinine 1.34 H, Estim Creat Clear Calc 35.47, Est GFR (MDRD) Af Amer 49 L, Est GFR (MDRD) Non-Af 41 L, BUN/Creatinine Ratio 17.2, Glucose 257 H, Calcium 7.9 L, Total Bilirubin 2.30 H, AST 83 H, ALT 84 H, Alkaline Phosphatase 419 H, Total Protein 5.7 L, Albumin 1.9 L, Globulin 3.8, Albumin/Globulin Ratio 0.5 L 01/11/18 06:47: POC Glucose 264 H Current Medications Acetaminophen (Tylenol) 650 mg PO Q6H PRN PRN PRN Reason: Non-cardiac pain (mod-severe) Last Admin: 01/07/18 06:26 Dose: 650 mg Hydrocodone Bitart/Acetaminophen ([place] 5mg-325mg) 1 - 2 tablet PO Q6H PRN PRN PRN Reason: Moderate-severe pain [facility]) [facility] Last Admin: 01/11/18 08:38 Dose: 200 mg Amiodarone HCl (Cordarone) 200 mg PO DAILY [facility] Last Admin: 01/11/18 10:21 Dose: 200 mg Amitriptyline [facility] ([facility]avil) [facility] Last Admin: 01/10/18 22:42 Dose: 20 mg Carvedilol (Coreg) 25 mg PO BID [facility] Last Admin: 01/11/18 10:22 Dose: 25 mg Dextrose (D50w Syringe) 0 gm IV X1 PRN; Protocol PRN Reason: Hypoglycemia Gabapentin (Neurontin) 300 mg PO 4X/DAYCM [facility] Last Admin: 01/11/18 08:39 Dose: 300 mg Glucagon () 1 mg IM .X1 PRN PRN Reason: Hypoglycemia Hydralazine HCl (Apresoline Iv) 10 mg IV Q4H PRN PRN PRN Reason: SBP > 160 Sodium Chloride () 250 mls @ 15 mls/hr IV .[id number] PRN PRN Reason: SALINE FLUSH Last Admin: 01/10/18 16:20 Dose: 15 mls/hr Piperacillin Sod/Tazobactam Sod (Zosyn) 3.375 gm in 50 mls @ 12.5 mls/hr IV Q8 [facility] Last Admin: 01/11/18 05:06 Dose: 12.5 mls/hr Pantoprazole Sodium 40 mg/ (Sodium Chloride) 110 mls @ 330 mls/hr IV Q12 [facility] Last Admin: 01/11/18 10:25 Dose: 330 mls/hr Insulin Human Lispro (Humalog Kwikpen (Bkc)) 0 unit SQ ACHS [facility] PRN Reason: Protocol Last Admin: 01/11/18 08:37 Dose: 3 units Morphine Sulfate () 2 - 4 mg IV Q1H PRN PRN PRN Reason: SEVERE PAIN (6-10/10) Last Admin: 01/09/18 17:05 Dose: 2 mg Morphine Sulfate () 2 - 4 mg IV Q1H PRN PRN PRN Reason: SEVERE PAIN (6-10/10) Ondansetron HCl (Zofran) 4 mg IV Q8H PRN PRN Sodium Chloride () 5 - 30 ml IV UD PRN PRN Reason: SALINE FLUSH Last Admin: 01/11/18 10:25 Dose: 10 ml Medical Necessity - Tobacco Use Smoking Status: Never smoker Assessment/Plan All Active Problems Abdominal pain (Acute) Atrial fibrillation (Acute) Cholecystitis with cholelithiasis (Acute) Choledocholithiasis with acute cholecystitis (Acute) Dehydration (Acute) Diarrhea (Acute) TAWANDA (acute kidney injury) (Acute) 1. Acute choledocholithiasis and cholecycstitis s/p laparoscopic cholecystectomy and ERCP Today's postop day 3 of lap cholecystectomy and POD 3 of ERCP. Has no complaints. no stone was found with ERCP. Jaundiced today, likely due to ERCP procedure. to be discharged home today 2. Paroxysmal A. fib with RVR xarelto resumed yesterday. On amiodarone 200mg daily x 2D echo: EF of about 60% with normal left ventricular systolic function. No regional wall motion abnormalities noted. Left atrium mildly enlarged. Sigmoid septum, mild mitral annular calcification. Mild MR and TR insufficiency and trivial pulmonary valve insufficiency 3. Hypertension on carvedilol 25mg bid. 4. Diabetes mellitus on lantus 20IU qhs and glimepiride; ISS accuchecks ACHS 5. CKD 3:stable. Cr has remained stable ~ 1.3-1.4 6. history of gout: stable. On allopurinol 7. GI prophylaxis: pantoprazole 8. DVT prophylaxis: PCDs 9. GI prophylaxis: PPI Disposition: Patient discharged home today. This note was generated with [employer] dictation software. It may contain incorrect words, spelling, and punctuation that were not noted in checking the note before signing. Code Visit Inpatient E&M: 09688 Subs Hosp L2
--- NOTE | 2018-01-11 11:47 | PN_ITS ---
Patient Problems: Active and Suspected Problems Abdominal pain (Acute) Atrial fibrillation (Acute) Cholecystitis with cholelithiasis (Acute) Choledocholithiasis with acute cholecystitis (Acute) Subjective: Patient seen and examined. She has no complaints today. She feels very well and was actually supposed to be discharged yesterday but says she wants to stay 1 more day. She denied any fever or chills, any cough or chest pain, any shortness of breath, any abdominal pain, any diarrhea vomiting. Review of systems is otherwise negative. Labs and vitals reviewed. Vitals/I&O's: Vital Signs Temp Pulse Resp BP Pulse Ox 99.1 F 67 18 125/60 H 94 01/11/18 10:20 01/11/18 10:20 01/11/18 10:20 01/11/18 10:20 01/11/18 10:20 Oxygen Flow Rate (L/min) 1 Oxygen Delivery Method Room Air Weight: 227 lb 15.327 oz Body Mass Index (BMI) 34.6 Finger Stick Blood Glucose 188 Intake and Output for Last 24 Hours 01/09/18 01/10/18 01/11/18 23:59 23:59 23:59 Intake Total 2293 / 2293 613 / 613 Output Total 320 / 320 1925 / 1925 Balance 1972 / 1972 -1312 / -1312 General: Alert, Oriented x3, Cooperative, No apparent distress HEENT: Atraumatic, PERRLA, EOMI, Normocephalic Oral: Moist Mucosa Neck: Supple, No JVD, Negative Carotid Bruits Lungs: Clear to auscultation, Normal air movement, No rhonchi, No wheeze, No rales Cardiovascular: Regular rate, Regular Rhythm, Normal S1, Normal S2, No murmurs Abdomen: Bowel Sounds Present, Soft, Non Tender Extremities: No clubbing, No cyanosis, No edema, Capillary Refill Less than 3 Seconds Skin: No rashes, No breakdown Musculoskeletal: No Tenderness to Palpation of Joints or Extremities Lymphatic: No Cervical, Supraclavicular, or Inguinal Adenopathy Neurological: Cranial nerves II-XII grossly intact, Neuro grossly intact, Motor Exam 5/5 strength throughout Psych/Mental Status: Normal Affect, Appropriate, Alert and oriented to time, place, person, mood and affect Laboratory Results 01/10/18 16:13: POC Glucose 247 H 01/10/18 22:40: POC Glucose 310 H 01/11/18 05:30: WBC 7.9, RBC 3.16 L, Hgb 8.9 L, Hct 26.9 L, MCV 85.1, MCH 28.2, MCHC 33.1, RDW 14.9 H, RDW Differential 44.5 H, Plt Count 279, MPV 10.6, Immature Gran % (Auto) 2.200 H, Neut % (Auto) 69.7, Lymph % (Auto) 13.8 L, [place] % (Auto) 9.8, Eos % (Auto) 4.1, Baso % (Auto) 0.4, Absolute Neuts (auto) 5.5, Absolute Lymphs (auto) 1.08, Total Counted Not Reportable, Diff Path Review October01/11/18 05:30: Sodium 139, Potassium 4.1, Chloride 106, Carbon Dioxide 23.0, Anion Gap 10, BUN 23 H, Creatinine 1.34 H, Estim Creat Clear Calc 35.47, Est GFR (MDRD) Af Amer 49 L, Est GFR (MDRD) Non-Af 41 L, BUN/Creatinine Ratio 17.2, Glucose 257 H, Calcium 7.9 L, Total Bilirubin 2.30 H, AST 83 H, ALT 84 H, Alkaline Phosphatase 419 H, Total Protein 5.7 L, Albumin 1.9 L, Globulin 3.8, Albumin/Globulin Ratio 0.5 L 01/11/18 06:47: POC Glucose 264 H Current Medications Acetaminophen (Tylenol) 650 mg PO Q6H PRN PRN PRN Reason: Non-cardiac pain (mod-severe) Last Admin: 01/07/18 06:26 Dose: 650 mg Hydrocodone Bitart/Acetaminophen ([place] 5mg-325mg) 1 - 2 tablet PO Q6H PRN PRN PRN Reason: Moderate-severe pain [facility] Last Admin: 01/11/18 08:38 Dose: 200 mg Amiodarone HCl (Cordarone) 200 mg PO DAILY [facility] Last Admin: 01/11/18 10:21 Dose: 200 mg [facility]mit[facility] ([facility]) [facility] Last Admin: 01/10/18 22:42 Dose: 20 mg Carvedilol (Coreg) 25 mg PO BID [facility] Last Admin: 01/11/18 10:22 Dose: 25 mg Dextrose (D50w Syringe) 0 gm IV X1 PRN; Protocol PRN Reason: Hypoglycemia Gabapentin (Neurontin) 300 mg PO 4X/DAYCM [facility] Last Admin: 01/11/18 08:39 Dose: 300 mg Glucagon () 1 mg IM .X1 PRN PRN Reason: Hypoglycemia Hydralazine HCl (Apresoline Iv) 10 mg IV Q4H PRN PRN PRN Reason: SBP > 160 Sodium Chloride () 250 mls @ 15 mls/hr IV .[id number] PRN PRN Reason: SALINE FLUSH Last Admin: 01/10/18 16:20 Dose: 15 mls/hr Piperacillin Sod/Tazobactam Sod (Zosyn) 3.375 gm in 50 mls @ 12.5 mls/hr IV Q8 [facility] Last Admin: 01/11/18 05:06 Dose: 12.5 mls/hr Pantoprazole Sodium 40 mg/ (Sodium Chloride) 110 mls @ 330 mls/hr IV Q12 [facility] Last Admin: 01/11/18 10:25 Dose: 330 mls/hr Insulin Human Lispro (Humalog Kwikpen (Bkc)) 0 unit SQ ACHS ARLETTE PRN Reason: Protocol Last Admin: 01/11/18 08:37 Dose: 3 units Morphine Sulfate () 2 - 4 mg IV Q1H PRN PRN PRN Reason: SEVERE PAIN (6-10/10) Last Admin: 01/09/18 17:05 Dose: 2 mg Morphine Sulfate () 2 - 4 mg IV Q1H PRN PRN PRN Reason: SEVERE PAIN (6-10/10) Ondansetron HCl (Zofran) 4 mg IV Q8H PRN PRN Sodium Chloride () 5 - 30 ml IV UD PRN PRN Reason: SALINE FLUSH Last Admin: 01/11/18 10:25 Dose: 10 ml Medical Necessity - Tobacco Use Smoking Status: Never smoker Assessment/Plan All Active Problems Abdominal pain (Acute) Atrial fibrillation (Acute) Cholecystitis with cholelithiasis (Acute) Choledocholithiasis with acute cholecystitis (Acute) Dehydration (Acute) Diarrhea (Acute) TAWANDA (acute kidney injury) (Acute) 1. Acute choledocholithiasis and cholecycstitis s/p laparoscopic cholecystectomy and ERCP * Today's postop day 3 of lap cholecystectomy and POD 3 of ERCP. Has no complaints. * no stone was found with ERCP. Jaundiced today, likely due to ERCP procedure. * to be discharged home today * * 2. Paroxysmal A. fib with RVR * xarelto resumed yesterday. On amiodarone 200mg daily * x * 2D echo: EF of about 60% with normal left ventricular systolic function. No regional wall motion abnormalities noted. Left atrium mildly enlarged. Sigmoid septum, mild mitral annular calcification. Mild MR and TR insufficiency and trivial pulmonary valve insufficiency * 3. Hypertension * on carvedilol 25mg bid. * 4. Diabetes mellitus * on lantus 20IU qhs and glimepiride; * ISS * accuchecks ACHS * 5. CKD 3:stable. Cr has remained stable ~ 1.3-1.4 6. history of gout: stable. On allopurinol 7. GI prophylaxis: pantoprazole 8. DVT prophylaxis: PCDs 9. GI prophylaxis: PPI Disposition: Patient discharged home today. This note was generated with [employer] dictation software. It may contain incorrect words, spelling, and punctuation that were not noted in checking the note before signing. Code Visit Inpatient E&M: 19879 Subs Hosp L2
[2018-01-11 12:38] LABS: Pathologist Review Reviewed
--- NOTE | 2018-01-12 16:01 | CASEMGMT ---
CLARIBEL ROBIN Discharge F/U phone call LACE: 13 Strata: 4 Discharge date: 01/11/18 Call date: 01/12/18 Call time: 1600 Duration: 1 minutes Admisison dx: Cholecystitis Pt states has been doing 'pretty good' since discharge. Pt states no questions regarding discharge instructions or medications at this time. Pt plans on keeping f/u appts. Pt states no suggestions for [facility] at this time. Pt voices no further questions/concerns/needs at this time. SStaten CLARIBEL ROBIN
== END 2018-01-11 12:26 | disposition home or self-care (01) | DRG 419 ==
LOC: ED 02:07 → MS3 04:15 → PCU 01-08 07:38
PROVIDERS: Family Medicine; Internal Medicine Cardiovascular Disease; Student in an Organized Health Care Education/Training Program; Surgery; Admitting Provider Surgery; Emergency Provider Emergency Medicine; Family Provider Family Medicine; PCP Family Medicine; Visit Provider Surgery
PROC: 0FT44ZZ Resection of Gallbladder, Percutaneous Endoscopic Approach (ICD-10-PCS; CPT 47610; principal; 2018-01-08 14:30)
PROC: 0F798ZZ Dilation of Common Bile Duct, Via Natural or Artificial Opening Endoscopic (ICD-10-PCS; CPT 43260; principal; 2018-01-09 12:00)
DX: K80.67 Calculus of gallbladder and bile duct with acute and chronic cholecystitis with obstruction (principal); M10.9 Gout, unspecified; E11.22 Type 2 diabetes mellitus 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 chronic kidney disease; E78.5 Hyperlipidemia, unspecified; I12.9 Hypertensive chronic kidney disease with stage 1 through stage 4 chronic kidney disease, or unspecified chronic kidney disease; M15.9 Polyosteoarthritis, unspecified; N18.3 Chronic kidney disease, stage 3 (moderate); I48.0 Paroxysmal atrial fibrillation; Z79.4 Long term (current) use of insulin; K82.8 Other specified diseases of gallbladder; Z79.01 Long term (current) use of anticoagulants
CPT/HCPCS: 36415; 71045; 74176; 74300; 74328; 76000; 76705; 80048; 80053; 80076; 82962; 83036; 83605; 83690; 83735; 84484; 85025; 85610; 88304; 93005; 93306; 94640; 99283; J7030; J7040; J7050; A4216; J2405

== ENCOUNTER → 2018-04-03 20:09 | Outpatient (CLI) | payer MEDICARE, SELFPAY | PROVIDERS: Family Provider Family Medicine; PCP Family Medicine; Visit Provider Physician Assistant | DX: G47.33 Obstructive sleep apnea (adult) (pediatric) (principal); R06.83 Snoring | CPT/HCPCS: 95811 ==

== ENCOUNTER → 2019-04-18 07:37 | Outpatient (CLI) | payer MEDICARE, SELFPAY ==
[2019-03-29 09:16] VITALS: BMI 36.6
--- NOTE | 2019-04-18 13:00 | PFTCOMP ---
COMPLETE PULMONARY FUNCTION TEST INTERPRETATION Brief HPI: Patient is a 78 year old female, currently under the care of Trina Moraes, who presents to [facility] [place] for complete pulmonary function tests secondary to diagnosis of dyspnea. Respiratory therapist reports good effort and reproducible results. Interpretation: Forced expiration spirometry shows no large airways obstructive ventilatory defect with an FEV1 of 77% predicted. There is no significant bronchodilator response by strict ATS criteria. Spirograms are of good quality and plateau normally. The respiratory flow volume loop shows a normal pattern. Lung volumes by body plethysmography show a normal total lung capacity at 5.15 L, 93% predicted. All other lung volumes are within normal limits. Diffusion capacity by carbon monoxide is normal at 75% predicted. The airway resistance is normal. No previous pulmonary function tests were available for review. Impression: These pulmonary function tests are grossly within normal limits
== END ==
PROVIDERS: Family Provider Family Medicine; PCP Family Medicine; Referring Provider Physician Assistant Medical; Visit Provider Physician Assistant Medical
DX: R06.00 Dyspnea, unspecified (principal)
CPT/HCPCS: 94060; 94726; 94729

== ENCOUNTER → 2020-01-10 18:05 | Outpatient (CLI) | payer MEDICARE, SELFPAY ==
[2019-11-19 14:53] VITALS: BMI 37.0
== END ==
PROVIDERS: PCP Family Medicine; Referring Provider Physician Assistant; Visit Provider Physician Assistant
DX: J06.9 Acute upper respiratory infection, unspecified (principal); R06.02 Shortness of breath
CPT/HCPCS: 87635; 94799; U0003

== ENCOUNTER 2020-07-31 11:53 | Day surgery (SDC) | payer MEDICARE, SELFPAY ==
[2019-11-19 14:53] VITALS: BMI 37.0
[2020-07-31] VITALS (8 sets, daily range): BP systolic 119–167; BP diastolic 50–75; PULSE 73–79; RESP 16–18; TEMP 36.1–37.1; O2SAT 96–100; BMI 35.4
--- NOTE | 2020-07-31 | GASB_PTH ---
PATIENT: YENNIFER JARAMILLO LOC: EN U#:[id number] AGE/SX: 79/F ROOM: RE07/31/[address]: Dr. Claudette Bojorquez MD : 1940 BED: DIS: 07/31/2020 SPEC #: [id number] RECD: 07/31/20 14:18 STATUS: LIV LOZA #: [id number] CHRISTI: 07/31/20 00:[address]: Claudette Bojorquez DEPT: SURGICAL PATHOLOGY RECD BY: Mat Cruz ENTERED: 08/03/20 08:26 SP TYPE: Gastric Bx OTHR DR: Dr. Stefan Gordon MD Tissues: Gastric mucous membrane Procedures: Surgery Specimen Level IV HEADER OPERATION: Colonoscopy, EGD ([facility]) PRE-OP DIAGNOSIS: Anemia with positive IFOBT; history of polyps TISSUE SUBMITTED: Antrum of stomach biopsy for H. pylori and path MICROSCOPIC DIAGNOSIS Antrum, biopsy: Mild gastritis. See microscopic description and comment. SJ:gillian 08/04/2020 COMMENT The results of immunohistochemistry for Helicobacter pylori will be reported separately ([id number]). MICROSCOPIC DESCRIPTION Slides are reviewed. The specimen shows fragments of gastric mucosa with chronic inflammatory cell infiltrates in the lamina propria consisting of lymphocytes and plasma cells, consistent with mild chronic gastritis. GROSS DESCRIPTION Received in fixative is one container labeled with the patient's name and designated antrum of stomach biopsy. The specimen consists of two irregular fragments of light holt soft tissue that in aggregate measure 0.5 x 0.3 x 0.1 cm. The specimen is totally submitted in one cassette. / SHARON:gillian 08/03/20 TC:3 CPT: 90215
--- NOTE | 2020-07-31 11:13 | PCM.HP.BLA ---
History and Physical Date of Admission: 07/31/20 Coni Romero a 79 year old female who is a consultation requested by Dr. Gordon for an opinion regarding a positive ifobt. My final recommendations will be communicated back to the requesting physician by way of shared Medical record. The patient denies a family history of colon cancer.. Taking Xarelto due to A-fib, and sees Dr. Cortez who cleared her for TKR in April. She had preop clearance exam by on 05/07/20 as well. However, she was found to have the positive ifobt . It was determined that she should have this evaluated before proceeding with the surgery. Component Latest Ref Rng & Units 05/10/2020 Occult Blood, Stool Negative Positive (A) Component Latest Ref Rng & Units 09/06/2016 03/06/2019 01/06/2020 WBC 3.70 - 11.00 k/uL 5.77 5.53 5.56 RBC 3.90 - 5.20 m/uL 4.47 4.14 3.90 Hemoglobin 11.5 - 15.5 g/dL 12.6 11.6 10.7 (L) Hematocrit 36.0 - 46.0 % 41.3 37.9 34.7 (L) MCV 80.0 - 100.0 fL 92.4 91.5 89.0 MCH 26.0 - 34.0 pG 28.2 28.0 27.4 MCHC 30.5 - 36.0 g/dL 30.5 30.6 30.8 RDW-CV 11.5 - 15.0 % 14.5 16.3 (H) 15.7 (H) Platelet Count 150 - 400 k/uL 211 252 189 MPV 9.0 - 12.7 fL 11.4 10.7 9.9 Absolute nRBC <0.01 k/uL <0.01 Component Latest Ref Rng & Units 05/07/2020 Ferritin 14.7 - 205.1 ng/mL 83.4 Component Latest Ref Rng & Units 03/26/2015 05/07/2020 Iron 41 - 186 ug/dL 37 80 TIBC 232 - 386 ug/dL 290 348 Transferrin Saturation 15 - 57 % 13 23 The patient was seen by Dr. Campbell for screening colonoscopy 01/21/16. The procedure report has been reviewed and findings as follows: Impression: - External and internal hemorrhoids. - One 5 mm polyp in the proximal ascending colon. Resected and retrieved. FINAL DIAGNOSIS Colon, proximal ascending polyp, biopsy - Tubular adenoma. I have reviewed the procedure and pathology reports, as well as the images, with the patient. Dr. Campbell recommended five year surveillance. Presenting complaint: The patient presents today reporting that she has a bowel movement about every three days. No straining. Stool is not formed. Color varies, but no black stool. She does occasionally see a spot of blood on the pad she wears. It might happen 2-3 times in an evening, or not any for several days. No blood with a bowel movement. Denies unplanned weight loss or abdominal discomfort. Taking lansoprazole daily with occasional drug holiday (per PCP instruction). She notes that going off for more than 2 days will result in indigestion. No dysphagia or nausea. Usually has dinner: 5-7. Evening snack: sometimes. Bedtime medications: yes. Heads to bed: 10-11. Sleeps in a regular bed with the head of the bed flat. Sleeps on her side. REVIEW OF SYSTEMS: GENERAL: No weight loss, malaise or fevers RESPIRATORY: Negative for cough, hemoptysis, wheezing, COPD, dyspnea or shortness of breath CARDIOVASCULAR: GI: As reported above. MUSCULOSKELETAL: Awaiting right TKR PSYCH: Positive for anxiety. HEMATOLOGY/LYMPHOLOGY: Anemia as well as possible effects of Xarelto. ENDOCRINE: Positive for diabetes mellitus on oral agent, hypothyroidism. NEURO: Migraine headaches All other reviewed and negative other than HPI. PAST MEDICAL HISTORY PAST MEDICAL HISTORY Diagnosis Date ? Acute gastritis without mention of hemorrhage ? Anemia, unspecified ? Anxiety state, unspecified ? Atrial fibrillation (HCC) ? B12 deficiency ? Diverticulosis of colon (without mention of hemorrhage) ? Esophageal reflux ? Generalized osteoarthrosis, unspecified site ? Gout ? Hemorrhage of gastrointestinal tract, unspecified ? Iron deficiency anemia, unspecified ? Migraine without aura has been quiescent since menopause. ? Other and unspecified hyperlipidemia ? Type II or unspecified type diabetes mellitus without mention of complication, uncontrolled PAST SURGICAL HISTORY PAST SURGICAL HISTORY Procedure Laterality Date ? CARPAL TUNNEL 05/18 left ? COLONOSCOP W/ OR W/O [facility] SPEC 04/14/2005 Colonoscopy ? COLONOSCOP W/ OR W/O [facility] SPEC 01/21/2016 Colonoscopy ? EGD W/O [facility] SPECIMEN W/BX 06/25/07 ? LAPAROSCOPIC CHOLECYSTECTOMY 01/08/2018 ? PAST SURGICAL HISTORY OF 1967 right breast cyst benign ? PAST SURGICAL HISTORY OF 2010 Rt carpal tunnel ? PAST SURGICAL HISTORY OF 12/2016 cataract surgery right eye ? REMOVAL OF TONSILS,<12 Y/O Tonsillectomy ? TOTAL KNEE REPLACEMENT 07/23/2007 Knee replacement, total right FAMILY HISTORY FAMILY HISTORY Problem Relation Age of Onset ? Heart Mother ? Heart Father ? Heart Brother ? Cancer Maternal Grandfather ? Cancer Paternal Grandfather CURRENT MEDICATIONS Current Outpatient Medications Medication Sig Dispense Refill ? pioglitazone (ACTOS) 30 mg tablet Take 1 tablet by mouth once daily. 14 tablet 0 ? pioglitazone (ACTOS) 30 mg tablet Take 1 tablet by mouth once daily. 90 tablet 1 ? gabapentin (NEURONTIN) 300 mg capsule Take 1 capsule by mouth four times daily for 203 days. 360 capsule 0 ? blood sugar diagnostic (BLOOD GLUCOSE TEST) test strip Test blood sugar(s) two times daily. Dx: Other DM Code E11.49 Insulin: Yes 50 Strip 11 ? allopurinol (ZYLOPRIM) 100 mg tablet Take 2 tablets by mouth once daily. 180 tablet 3 ? amiodarone (PACERONE) 200 mg tablet Take 1 tablet by mouth once daily. 90 tablet 3 ? Syringe with Needle, Disp, (BD LUER-TALON SYRINGE) USE SYRINGE TO INJECT B12 ONCE A MONTH 12 Each 0 ? glimepiride (AMARYL) 4 mg tablet Take 0.5 tablets by mouth once daily. 45 tablet 3 ? rivaroxaban (XARELTO) 15 mg tablet Take 1 tablet by mouth daily with dinner. 90 tablet 3 ? levothyroxine (SYNTHROID) 137 mcg tablet Take 1 tablet by mouth once daily. Take on empty stomach. For thyroid. 30 tablet 5 ? carvedilol (COREG) 25 mg tablet Take 2 tablets by mouth twice daily. 360 tablet 3 ? lansoprazole (PREVACID) 30 mg capsule TAKE 1 CAPSULE EVERY MORNING BEFORE EATING 90 capsule 1 ? dulaglutide (TRULICITY) 1.5 mg/0.5 mL Inject 1.5 mg subcutaneously one time a week. Inject once per week. Discard Pen After 2 mL 11 ? colestipol (COLESTID) 1 gram tablet Take 1 tablet by mouth twice daily with meals. 180 tablet 3 ? cholecalciferol, Vitamin D3, (VITAMIN D3) 1,250 mcg (50,000 unit) cap capsule Take 1 capsule by mouth one time a week. 12 capsule 3 ? Insulin Arco, Disposable, (BD ULTRA-FINE HORTENCIA PEN NEEDLE) 32 gauge x 532 ndle Use one needle for each dose. 3x/day. E11.65 E11.49 200 Each 11 ? cyanocobalamin 1,000 mcg/mL soln INJECT 1 MILLILITER INTRAMUSCULARLY ONCE A MONTH 1 mL 12 ? amitriptyline (ELAVIL) 10 mg tablet Take 2 tablets by mouth daily at bedtime. 180 tablet 3 ? clotrimazole (LOTRIMIN, CLOTRIM) 1 % cream Apply 1 application to affected area twice daily. 30 g 1 ? triamcinolone acetonide (KENALOG) 0.1 % cream apply to affected area twice a day 15 g 1 ? blood sugar diagnostic (EASYMAX N) test strip Frequency of testin times daily DX E11.49 Insulin YES 150 Each 11 ? Lancets lancets Test glucose 2x/daily, 250.02, insulin use: yes 100 Each 11 ? psyllium Husk (FIBER-CAPS) 0.52 g ORAL capsule Take 2 capsules by mouth once daily. 0 ? multivitamins w-iron(FLINTSTONES PLUS IRON CHEWABLE TAB) Take one(1) tablet daily with meal. 0 No current facility-administered medications for this visit. SOCIAL HISTORY: Patient is single. She has never smoked. Coni reports her alcohol use as never. PHYSICAL EXAMINATION: Blood pressure 130/58, pulse 86, height 172.7 cm (5' 8), weight 106.6 kg (235 lb), SpO2 98 %. General Appearance: Well appearing, alert, in no acute distress, well-hydrated, well nourished. Skin: Skin color, texture, turgor normal, no suspicious rashes or lesions. Head: Normocephalic, no abnormalities. Eyes: Anicteric sclera. Neck: Supple, no adenopathy. Lungs: Lungs clear to auscultation. Heart: RRR without murmur. Abdomen: Abdomen soft, non-tender. Bowel sounds normal. No masses, organomegaly. Extremities: No deformities, edema, skin discoloration, clubbing or cyanosis. Good capillary refill. . Peripheral Pulses: Normal. Neurologic: Gait with assistance of a walker. Sensation grossly intact. Impression: anemia with positive ifobt 2)history of polyps Plan: CBC today. The patient will be scheduled for an upper endoscopy as well as a colonoscopy. She will require MAC. [facility] is requested since her registered associate is there. Preparation for the procedures, using Miralax/Gatorade as the laxative, have been explained in detail. The risks, benefits, anticipated outcomes and possible complications were mentioned, including including failure to complete the endoscopy and perforation. I explained the procedure in understandable terms and the patient was given printed material concerning the planned procedure. The patient had the opportunity to ask questions concerning the planned procedure. The patient freely consents to the planned procedure. The patient is instructed to contact PCP for instructions regarding diabetic medication, which may require adjustment during bowel preparation and/or day of procedure. The patient is scheduled for a procedure at the [facility]. I have explained that his/her health and safety, as well as that of our staff is important. The risk of exposure to, or potential harm posed by the COVID-19 virus with having a procedure at this time is as minimal as possible. Measures are being taken to minimize any potential risk of infection. I have explained that he/she will see that the staff will be wearing masks and gloves. The patient's temperature will be taken on arrival, they will be asked a series of questions to reassess current wellness, and asked to use hand chemical engineering professor foam. The bed areas are cleaned and the procedure rooms are thoroughly disinfected between patients. Procedure rooms will be alternated to give the disinfection more than enough time to ensure adequate protection for all involved. The patient is encouraged to call with any questions or concerns, or should there be any change in health status between now and the scheduled procedure. Denisa Cruz RN DYE RANGE TENDER.CARDIOLOGY NURSE
[2020-07-31] MEDS: Lactated Ringers 1,000 ML 75 ML IV (11:15)
--- NOTE | 2020-07-31 13:00 | IMM_PTH ---
PATIENT: YENNIFER JARAMILLO LOC: EN U#:[id number] AGE/SX: 79/F ROOM: RE07/31/[address]: Dr. Claudette Bojorquez MD : 1940 BED: DIS: 07/31/2020 SPEC #: [id number] RECD: 08/03/20 09:54 STATUS: LIV REQ #: [id number] CHRISTI: 07/31/20 13:[address]: Claudette Bojorquez DEPT: IMMUNOHISTOCHEMISTRY RECD BY: Gabi Leahy ENTERED: 08/03/20 09:54 SP TYPE: IMMUNO OTHR DR: Dr. Stefan Gordon MD Tissues: Stomach, NOS Procedures: H Pylori (initial) PHYSICIAN & INSTITUTION [place] [address] SPECIMEN INFORMATION: Tissue Source: Antrum of stomach biopsy Clinical Info: Anemia with positive IFOBT; history of polyps Specimen Number: [id number] CPT code: 90237 METHODOLOGY: Deparaffinized sections of prefer/formalin-fixed tissue or PAP/DQ stained slides are incubated with monoclonal/polyclonal antibodies/oligonucleotide probes. Localization is made via biotin free immunoperoxidase method. Appropriate controls are performed and reacted as expected. Results on target cell population are indicated in the following table: RESULTS: ANTIBODY / CLONE RESULT H Pylori (polyclonal) negative These tests were developed and their performance characteristics determined by [facility]. They may not have been cleared or approved by the U.S. Food and Drug Administration. The FDA has determined that such clearance or approval is not necessary. INTERPRETATION: Antrum of stomach, biopsy: Negative for Helicobacter pylori organisms. SJ:gillian 08/04/2020
[2020-07-31 13:20] LABS: Bedside Glucose 100 mg/dL (70-110)
--- NOTE | 2020-07-31 13:41 | OP.CCLET_ITS ---
07/31/2020 Stefan Gordon Re : Upper GI endoscopy procedure for Coni Arzola Evan This procedure was performed on Friday, July 31, 2020. My impressions and recommendations are as follows: Impressions : - Normal first portion of the duodenum and second portion of the duodenum. - Erythematous mucosa in the antrum. Biopsied. - Normal esophagus. Recommendations : - Discharge patient to home (ambulatory). - Resume previous diet. - Continue present medications. - Await pathology results. - Contact the office of Denisa Cruz CNP for follow up of pathology results - make an appointment to be seen in 1-2 weeks My findings are described in the full procedure note, which is enclosed. If I can be of further assistance, please feel free to contact me at Doctor phone number(s): , Work: . Sincerely, MD Claudette Menchaca MD 07/31/2020 1:40:58 PM This report has been signed electronically.
--- NOTE | 2020-07-31 13:41 | OP.EGD_ITS ---
Patient Name: Coni Romero Procedure Date: 07/31/2020 12:53 PM Date of : 1940 Age: 79 Procedure: Upper GI endoscopy Indications: Heme positive stool Providers: Claudette Bojorquez MD Referring MD: Stefan Gordon Medicines: See the Anesthesia note for documentation of the administered medications Patient Profile: Refer to note in patient chart for documentation of history and physical. Complications: No immediate complications. Procedure: Pre-Anesthesia Assessment: - see anesthesia note After obtaining informed consent, the endoscope was passed under direct vision. Throughout the procedure, the patient's blood pressure, pulse, and oxygen saturations were monitored continuously. The Endoscope was introduced through the mouth, and advanced to the second part of duodenum. The upper GI endoscopy was accomplished without difficulty. The patient tolerated the procedure well. Scope In: 1:04:05 PM Scope Out: 1:09:17 PM Total Procedure Duration Time 0 hours 5 minutes 12 seconds Findings: The first portion of the duodenum and second portion of the duodenum were normal. Striped mildly erythematous mucosa without bleeding was found in the gastric antrum. Biopsies were taken with a cold forceps for histology. Verification of patient identification for the specimen was done by the nurse. Estimated blood loss was minimal. Patient was also noted to have benign gastric fundic polyps. patient was also noted to have retained bile in stomach. Also enterogastric reflux of bile was noted. The examined esophagus was normal. Impression: - Normal first portion of the duodenum and second portion of the duodenum. - Erythematous mucosa in the antrum. Biopsied. - Normal esophagus. Recommendation: - Discharge patient to home (ambulatory). - Resume previous diet. - Continue present medications. - Await pathology results. - Contact the office of Denisa Cruz CNP for follow up of pathology results - make an appointment to be seen in 1-2 weeks Procedure Code(s): --- Professional --- 03871, Esophagogastroduodenoscopy, flexible, transoral; with biopsy, single or multiple Diagnosis Code(s): --- Professional --- K31.89, Other diseases of stomach and duodenum R19.5, Other fecal abnormalities CPT copyright 2017 [employer]. All rights reserved. The codes documented in this report are preliminary and upon hand shoe cutter review may be revised to meet current compliance requirements. MD Claudette Menchaca MD 07/31/2020 1:40:58 PM This report has been signed electronically. Number of Addenda: 0 Note Initiated On: 07/31/2020 12:53 PM
--- NOTE | 2020-07-31 13:43 | OP.CCLET_ITS ---
07/31/2020 Stefan Gordon Re : Colonoscopy procedure for Coni Romero Dear Evan This procedure was performed on Friday, July 31, 2020. My impressions and recommendations are as follows: Impressions : - Non-bleeding external and internal hemorrhoids. - No specimens collected. Recommendations : - No repeat colonoscopy due to current age (66 years or older). - Continue present medications. My findings are described in the full procedure note, which is enclosed. If I can be of further assistance, please feel free to contact me at Doctor phone number(s): , Work: . Sincerely, MD Claudette Menchaca MD 07/31/2020 1:42:42 PM This report has been signed electronically.
--- NOTE | 2020-07-31 13:43 | OP.COLON_ITS ---
Patient Name: Coni Romero Procedure Date: 07/31/2020 1:11 PM Date of : 1940 Age: 79 Procedure: Colonoscopy Indications: Heme positive stool Providers: Claudette Bojorquez MD Referring MD: Stefan Gordon Medicines: See the Anesthesia note for documentation of the administered medications Patient Profile: Refer to note in patient chart for documentation of history and physical. Last Colonoscopy: date unknown. Complications: No immediate complications. Procedure: Pre-Anesthesia Assessment: - see anesthesia note After I obtained informed consent, the scope was passed under direct vision. Throughout the procedure, the patient's blood pressure, pulse, and oxygen saturations were monitored continuously. The pediatric colonoscope was introduced through the anus and advanced to the cecum, identified by the appendiceal orifice, IC valve and transillumination. The colonoscopy was performed without difficulty. The patient tolerated the procedure well. The quality of the bowel preparation was adequate. Scope In: 1:12:14 PM Scope Withdrawal Time 0 hours 4 minutes 11 seconds Scope Out: 1:30:37 PM Total Procedure Duration Time 0 hours 18 minutes 23 seconds Findings: The perianal and digital rectal examinations were normal. Non-bleeding external and internal hemorrhoids were found. Impression: - Non-bleeding external and internal hemorrhoids. - No specimens collected. Recommendation: - No repeat colonoscopy due to current age (66 years or older). - Continue present medications. Procedure Code(s): --- Professional --- 13761, Colonoscopy, flexible; diagnostic, including collection of specimen(s) by brushing or washing, when performed (separate procedure) Diagnosis Code(s): --- Professional --- K64.8, Other hemorrhoids R19.5, Other fecal abnormalities CPT copyright 2017 [employer]. All rights reserved. The codes documented in this report are preliminary and upon manager women review may be revised to meet current compliance requirements. MD Claudette Menchaca MD 07/31/2020 1:42:42 PM This report has been signed electronically. Number of Addenda: 0 Note Initiated On: 07/31/2020 1:11 PM
== END 2020-07-31 14:27 | disposition home or self-care (01) ==
LOC: EN 11:54 → AC 11:54
PROVIDERS: PCP Family Medicine; Referring Provider Family Medicine; Visit Provider Surgery
PROC: 0DJD8ZZ Inspection of Lower Intestinal Tract, Via Natural or Artificial Opening Endoscopic (ICD-10-PCS; CPT 45378; principal; 2020-07-31 12:55)
DX: K29.50 Unspecified chronic gastritis without bleeding (principal); K64.8 Other hemorrhoids; K64.4 Residual hemorrhoidal skin tags; Z20.822 Contact with and (suspected) exposure to COVID-19; I48.91 Unspecified atrial fibrillation; E11.22 Type 2 diabetes mellitus 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 chronic kidney disease; I12.9 Hypertensive chronic kidney disease with stage 1 through stage 4 chronic kidney disease, or unspecified chronic kidney disease; N18.2 Chronic kidney disease, stage 2 (mild); E11.65 Type 2 diabetes mellitus with hyperglycemia; E78.49 Other hyperlipidemia; D50.9 Iron deficiency anemia, unspecified; E03.9 Hypothyroidism, unspecified; M10.9 Gout, unspecified; K21.9 Gastro-esophageal reflux disease without esophagitis; G47.30 Sleep apnea, unspecified; Z79.01 Long term (current) use of anticoagulants; Z79.4 Long term (current) use of insulin; Z79.899 Other long term (current) drug therapy; Z78.0 Asymptomatic menopausal state; Z86.010 Personal history of colon polyps; Z96.651 Presence of right artificial knee joint
CPT/HCPCS: 43239; 45378; 82962; 87426; 88305; 88342; C9803; J7120; J2405

== ENCOUNTER 2020-08-19 06:38 | Observation (INO) | payer MEDICARE, SELFPAY ==
[2020-07-31 12:21] VITALS: BMI 35.4
[2020-08-19] VITALS (7 sets, daily range): BP systolic 105–154; BP diastolic 35–63; PULSE 71–79; RESP 16–18; TEMP 36.5–37; O2SAT 95–96; BMI 39.5; BMI 35.9; BMI 36.0
--- NOTE | 2020-08-19 07:07 | ED.DCSUM_ITS ---
History of Present Illness Chief Complaint: Fall Informant: Patient Narrative: 79-year-old female presenting for multiple complaints. She states that 6 days ago she had a fall backwards while entering her doorway. She is unsure why she fell. She fell posteriorly backwards landing on her buttocks. She did states she hit her head but did not get knocked out. She is on Xarelto. She denies dizziness, lightheadedness, nausea. She does complain of left gluteal pain and right tibial pain. Patient states she has been able to ambulate. She states that prior to this episode she had injured her right shoulder reaching across her own body. She denies any traumatic injury. She states she was seen in urgent care and had x-rays. She is told she has a rotator cuff tear. Patient ambulates at baseline with a walker that is having difficulty rising to stand given her pain in her buttocks and right tibial region as well as the weakness in her right arm. Patient states she has modified her bedroom, toilet to be a little bit higher so it is easier for her to rise and stand. She states that last evening she was trying to get up the stairs but was unable to pull herself up the stairs due to weakness in the left leg. Patient does admit to some new bilateral lower extremity edema. She denies shortness of breath, chest pain, palpitations. Patient does admit to chronic anemia to which her primary care physician has been checking into. They have not found a source. She denies black or bloody stools. - Past Medical History (1) Paroxysmal atrial flutter Status: Chronic (2) Hyperlipidemia Status: Chronic (3) Paroxysmal atrial fibrillation Status: Chronic (4) Type 2 diabetes mellitus Status: Chronic (5) Nonischemic cardiomyopathy Status: Chronic Past Medical History - Allergies and Home Meds Allergies/Adverse Reactions: Allergies iodine Allergy (Verified 07/31/20 11:47) Hives simvastatin Allergy (Verified 07/31/20 11:47) Other Igrpijr-Tkn-Zdb Reductase Inhibitor Adverse Reaction (Severe, Verified 07/31/20 11:47) mylagias Primary Care Physician: Stefan Gordon MD [Primary Care Provider] - Prior records reviewed: Yes Past Medical History: - - Reviewed in problem list Surgical History: total knee arthroplasty, - - OZ, cyst removal from the breast which was benign, tonsillectomy Lives: Alone Smoking Status: Never smoker Alcohol: None Drugs: None - Family History Paternal Family History: Family History (Last Reviewed 05/07/19 @ 15:11 by Trina Fine) Brother Heart disease Mother Heart disease Father Heart disease Family History: Reports: Heart Disease Review of Systems General: Denies: Chills, Fever, Sweats Eyes: Denies: Visual changes - bilaterally, Diplopia ENT: Denies: Rhinorrhea, Sore throat Cardiovascular: Denies: Chest pain, Palpitations Respiratory: Denies: Dyspnea, Cough, Dyspnea on exertion Gastrointestinal: Denies: Abdominal pain, Nausea, Vomiting, Diarrhea, Melena, Hematochezia Genitourinary: Denies: Dysuria, Hematuria, Frequency Musculoskeletal: Reports: Back pain - Sacral pain, Swelling - Bilateral lower extremity, Extremity Pain - Right tibial pain, left gluteal pain, sacral pain Neurological: Denies: Headache, Weakness, Parasthesia, Numbness Psych: Denies: Depression, Anxiety Physical Exam Vital Signs/Narrative: Vital Signs Temp Pulse Resp BP Pulse Ox 08/19/20 06:39 97.8 F 79 16 154/59 H 96 Inital Vital Signs reviewed: Yes General: Obese, No Acute Distress Head: Normocephalic, Atraumatic Eyes: Perrl, EOMI ENT: Moist mucous membranes, No rhinorrhea Cardiovascular: Regular rate, Regular rhythm Respiratory: No distress, CTA bilaterally Abdomen: Soft, Nontender, Nondistended Rectal: - - Hemorrhoids noted perirectally. They are not thrombosed. There is some mild bleeding of the hemorrhoids. Back: Negative for: CVA tenderness, Spinal tenderness Extremities: Edema - Bilateral trace lower extremity edema, - - Tenderness to palpation over right mid tibia. No obvious deformities. Tenderness to palpation of her left gluteal region. No obvious deformities. Skin: Normal color, No rash Neurological: Alert, Oriented x3 Psychological: Normal affect, Normal Mood Diagnostic/Tx/Re-eval Clinical Impression(s) from Imaging Studies Brain CT 08/19/20 07:10 IMPRESSION: Chronic involutional changes of the brain. Electronically Signed: Pau Jacinto MD at 8:14 EDT Tel , Service support , Chest X-Ray 08/19/20 07:50 IMPRESSION: No acute abnormality is seen. Stable examination. Electronically Signed: Jacob Brown MD at 8:17 EDT , Service support , Hip/Pelvis X-Ray 08/19/20 07:50 IMPRESSION: Left hip and pelvis intact Advanced degenerative changes, as above Electronically Signed: [place], at 8:15 EDT Tel , Service support , Tibia/Fibula X-Ray 08/19/20 07:50 IMPRESSION: Right tibia/fibula intact Extensive ankle soft tissue swelling Moderate ankle osteoarthritis Uncomplicated knee arthroplasty Electronically Signed: [place] DO at 8:13 EDT Tel , Service support , Laboratory Data 08/19/20 08/19/20 08/19/20 07:22 07:22 07:22 WBC 6.2 RBC 2.99 L Hgb 8.8 L Hct 28.0 L MCV 93.6 MCH 29.4 MCHC 31.4 L RDW Std Deviation 53.9 H RDW Coeff of Melanie 15.9 H Plt Count 190 MPV 10.2 Immature Gran % (Auto) 1.000 H Neut % (Auto) 72.3 H Lymph % (Auto) 16.9 L [place] % (Auto) 6.9 Eos % (Auto) 2.7 Baso % (Auto) 0.2 Absolute Neuts (auto) 4.5 Absolute Lymphs (auto) 1.05 Nucleated RBC % 0 Sodium 141 Potassium 4.4 Chloride 109 H Carbon Dioxide 29.0 Anion Gap 3 L BUN 51 H Creatinine 1.60 H Estim Creat Clear Calc 28.76 Est GFR (MDRD) Af Amer 40 L Est GFR (MDRD) Non-Af 33 L BUN/Creatinine Ratio 31.9 H Glucose 135 H Calcium 8.3 L Magnesium Total Bilirubin 0.40 AST 21 ALT 18 Alkaline Phosphatase 99 Troponin I < 0.015 B-Natriuretic Peptide 124.0 H Total Protein 6.0 L Albumin 2.9 L Globulin 3.1 Albumin/Globulin Ratio 0.9 Urine Color Urine Clarity Urine pH Ur Specific [place] Urine Protein Urine Glucose (UA) Urine Ketones Urine Occult Blood Urine Nitrite Urine Bilirubin Urine Urobilinogen Ur Leukocyte Esterase Urine RBC Urine WBC Ur Squamous Epith Cells Urine Bacteria Urine Mucus Blood Type Antibody Screen 08/19/20 08/19/20 08/19/20 07:22 08:16 09:01 WBC RBC Hgb Hct MCV MCH MCHC RDW Std Deviation RDW Coeff of Melanie Plt Count MPV Immature Gran % (Auto) Neut % (Auto) Lymph % (Auto) [place] % (Auto) Eos % (Auto) Baso % (Auto) Absolute Neuts (auto) Absolute Lymphs (auto) Nucleated RBC % Sodium Potassium Chloride Carbon Dioxide Anion Gap BUN Creatinine Estim Creat Clear Calc Est GFR (MDRD) Af Amer Est GFR (MDRD) Non-Af BUN/Creatinine Ratio Glucose Calcium Magnesium 1.7 Total Bilirubin AST ALT Alkaline Phosphatase Troponin I B-Natriuretic Peptide Total Protein Albumin Globulin Albumin/Globulin Ratio Urine Color Yellow Urine Clarity Sl. Cloudy Urine pH 6.0 Ur Specific [place] 1.010 Urine Protein Negative Urine Glucose (UA) Normal Urine Ketones Negative Urine Occult Blood 150 H Urine Nitrite Negative Urine Bilirubin Negative Urine Urobilinogen Normal Ur Leukocyte Esterase 100 H Urine RBC 10-25 SEEN Urine WBC 10-25 SEEN Ur Squamous Epith Cells 0-5 SEEN Urine Bacteria 1+ Urine Mucus 0 SEEN Blood Type O NEGATIVE Antibody Screen NEGATIVE - Medical Decision Making 79-year-old female presenting with history of positive Hemoccult stool in May. She is followed up with Dr. Bojorquez on an outpatient basis and had an outpatient colonoscopy which was negative. Patient also had EGD which showed chronic mild gastritis. Patient states that she has had some mild bleeding of her hemorrhoids worse with defecation since she had a colonoscopy. She states she does not call Dr. Burt regard to this. She is on Xarelto. Patient reports a fall several days ago where she fell back and hit her head. She was concerned that she might of hurt something in the fall. Additionally she had previously hurt her right shoulder and had x-rays as an outpatient which were negative but told she had a rotator cuff tear. Patient having difficulty ambulating secondary to using a walker. She is unable to get up her stairs at home. Given her history of fall being on Xarelto I did obtain lab work and imaging. EKG performed on arrival shows a sinus rhythm at 69 bpm without signs of ischemic change as interpreted by myself. Chest x-ray one-view portable is also negative for acute findings. Radiology does agree. Patient had images of the right tib-fib and the left hip which are negative for acute fractures or subluxations as interpreted by myself. Radiology does agree. Patient is not orthostatic positive. CBC shows white blood cell count 6.2, hemoglobin 8.8, platelets 190. CMP shows BUN 51 creatinine 1.6 which appears to be near her baseline. GFR 33. Magnesium 1.7. BNP is slightly elevated at 124 however again she has no findings on her chest x-ray. She does have mild lower extremity edema. UA is negative for infection. Patient was discussed with Dr. Smiley initially to see if we could do inpatient pill endoscopy however she stated that we do not have that capability here. For this reason I did attempt to transfer the patient to another facility that would be able to perform this and found that there is no inpatient colonoscopy performed. Given the patient's bleeding of her hemorrhoids and anemia I feel she needs to be hospitalized. She will probably need to hold her Xarelto. I do not believe she needs blood transfusion at this time. Patient was again discussed with general surgery who felt it was okay to keep her in the hospital. Patient was discussed with hospitalist who was amenable. Patient will be monitored and then transferred [facility]. Impression: 1. Fall 2. Closed head injury 3. Right tibial contusion 4. Left hip contusion 5. Acute blood loss anemia 6. Bleeding hemorrhoids 7. Lower GI bleed 8. Right shoulder rotator cuff tear ED Disposition - Plan for ED Patient: Referrals: Stefan Gordon MD [Primary Care Provider] -
--- NOTE | 2020-08-19 07:08 | EKG12_ITS ---
Test Reason : FALL Blood Pressure : / mmHG Vent. Rate : 069 BPM Atrial Rate : 069 BPM P-R Int : 160 ms QRS Dur : 092 ms QT Int : 436 ms P-R-T Axes : 035 008 024 degrees QTc Int : 467 ms Normal sinus rhythm Normal ECG Confirmed by MARY ROTHMAN, DEVI ([id number]), video tape editor EMERSON WHITE ([id number]) on 08/20/2020 12:42:14 PM Referred By: ELSA Confirmed By:DEVI HERNANDEZ MD
--- NOTE | 2020-08-19 07:10 | CT_ITS ---
STUDY: CT BRAIN WITHOUT CONTRAST REASON FOR EXAM: Female, 79 years old. head injury RADIATION DOSAGE (If Supplied By Facility): CTDIvol = ( 44.99 ) mGy, DLP = ( 813.98 ) mGycm TECHNIQUE: Transaxial CT imaging of the brain was performed without administration of intravenous contrast material. Individualized dose optimization techniques were used for this CT. COMPARISON: None. FINDINGS: There is cerebral atrophy with widening of the extra-axial spaces and ventricular dilatation. There are areas of decreased attenuation within the white matter tracts of the supratentorial brain, consistent with microvascular disease changes. There is no intracranial hemorrhage. There are no findings of an acute ischemic infarction. Normal soft tissue structures. Normal visualized paranasal sinuses. CT/Brain/Head without Contrast IMPRESSION: Chronic involutional changes of the brain. Electronically Signed: Pau Jacinto MD at 8:14 EDT Tel , Service support ,
[2020-08-19 07:28] LABS: Absolute Lymphocyte Count 1.05 X10^3/uL (0.83-4.51); Absolute Neutrophil Count 4.5 X10^3/uL (2.0-7.7); Basophil# 0.01 X10^3/uL; Basophil% 0.2 % (0-1); Eosinophil# 0.17 X10^3/uL; Eosinophils% 2.7 % (0-5); Hemoglobin 8.8 g/dL (12.0-15.0); Lymphocyte # 1.05 X10^3/ul (4.0); Lymphocyte % 16.9 % (19-41); Mean Corp Hgb Conc 31.4 g/dL (32-36); Mean Corpuscular Hgb 29.4 pg (27.0-32.0); Mean Corpuscular Volume 93.6 fL (81-99); Mean Platelet Vol. 10.2 fl (6.2-12.0); Monocyte# 0.43 X10^3/uL; Monocyte% 6.9 % (0-10); NRBC Flagged by Analyzer 0 % (0-5); Neutrophil # 4.49 X10^3/uL (2.7-7.7); Neutrophil % 72.3 % (47-70); Platelet Count 190 K/mm3 (150-450); RBC Distribution Width CV 15.9 % (11.6-14.6); RBC Distribution Width SD 53.9 fl (35.1-43.9); Red Blood Count 2.99 M/mm3 (4.2-5.4); White Blood Count 6.2 K/mm3 (4.4-11.0)
[2020-08-19 07:46] LABS: ALB/GLOB Ratio 0.9 RATIO (0.9-2.4); AST(SGOT) 21 U/L (15-37); Alanine Aminotransfer ALT/SGPT 18 U/L (13-56); Albumin, Serum 2.9 g/dL (3.2-5.0); Alkaline Phosphatase 99 U/L (45-117); Anion Gap 3 (5-15); BUN 51 mg/dL (7-18); BUN/Creat Ratio 31.9 RATIO (10-20); Calcium,Total 8.3 mg/dL (8.5-10.1); Chloride 109 mmol/L (98-107); EST Glomerular Filtration Rate 33 mL/min (>60); Est Glom Filt Rate - Afr Amer 40 mL/min (>60); Estimated Creatinine Clearance 28.76 ml/min; Globulin 3.1 g/dL (2.2-4.2); Glucose 135 mg/dL (74-106); Potassium 4.4 mmol/L (3.5-5.1); Sodium Level 141 mmol/L (136-145)
--- NOTE | 2020-08-19 07:50 | RAD_ITS ---
STUDY: X-RAY - PELVIS AND LEFT HIP REASON FOR EXAM: Female, 79 years old. hip pain TECHNIQUE: 3 views of the pelvis and hip. COMPARISON: None. FINDINGS: No acute fracture, dislocation or osseous destruction. Osteopenia. Severe right hip arthrosis. Moderate left hip arthrosis. Severe lumbar spine arthrosis. Mild soft tissue swelling. RAD/HIP, UNI W/ Pelvis 2-3 Views IMPRESSION: Left hip and pelvis intact Advanced degenerative changes, as above Electronically Signed: [place] DO at 8:15 EDT Tel , Service support ,
--- NOTE | 2020-08-19 07:50 | RAD_ITS ---
STUDY: X-RAY - RIGHT TIBIA AND FIBULA REASON FOR EXAM: Female, 79 years old. leg pain TECHNIQUE: 4 view(s) of the tibia and fibula were obtained. COMPARISON: None. FINDINGS: Uncomplicated knee arthroplasty. No acute fracture, dislocation or osseous destruction. Moderate ankle osteoarthritis. Achilles enthesophyte. Soft tissue swelling predominating at the ankle. RAD/Tibia & Fibula 2 Views IMPRESSION: Right tibia/fibula intact Extensive ankle soft tissue swelling Moderate ankle osteoarthritis Uncomplicated knee arthroplasty Electronically Signed: [place] Ivy DO at 8:13 EDT Tel , Service support ,
--- NOTE | 2020-08-19 07:50 | RAD_ITS ---
STUDY: X-RAY CHEST REASON FOR EXAM: Female, 79 years old. Weakness TECHNIQUE: Single AP portable view of the chest. COMPARISON: Comparison is made with prior study dated 01/05/2018. FINDINGS: The lungs are clear and expanded. There is no demonstrated pleural abnormality. Normal size heart. Normal mediastinum and radames. Normal visualized pulmonary arteries. There is atherosclerotic tortuosity of the aortic arch and descending thoracic aorta. There are diffuse degenerative changes of the visualized thoracic spine. Mild dextroscoliosis. Normal visualized ribs, clavicles, and shoulders. There is no demonstrated abnormality of the visualized soft tissue structures of the upper abdomen. RAD/Chest 1 View (Portable) IMPRESSION: No acute abnormality is seen. Stable examination. Electronically Signed: Jacob Brown MD at 8:17 EDT , Service support ,
[2020-08-19 08:10] LABS: Magnesium 1.7 mg/dL (1.6-2.6)
--- NOTE | 2020-08-19 08:51 | NURSING ---
CALLED [facility] FOR TRANSFER. TALKED TO JENNYFER
--- NOTE | 2020-08-19 08:57 | NURSING ---
FAXED FACE SHEET
--- NOTE | 2020-08-19 08:57 | NURSING ---
PATIENT OK WITH [facility]? YES [facility]
[2020-08-19 09:05] LABS: Mucous, Urine 0 SEEN /hpf (<or=2+)
[2020-08-19 09:07] LABS: Color, Urine Yellow (Yellow); Glucose, Dipstick Normal (Normal); Ketone-Dipstick Negative (Negative); Leukocyte Esterase-Dipstick 100 /ul (Negative); Nitrite-Dipstick Negative (Negative); Occult Blood-Urine 150 /ul (Negative); Protein-Dipstick Negative (Negative); Urine Bilirubin Dipstick Negative (Negative); Urine Clarity Sl. Cloudy (Clear); Urine Urobilinogen Normal (Normal)
--- NOTE | 2020-08-19 09:14 | NURSING ---
[id number] DR OAKLEY FROM [place] FOR ER DOC
[2020-08-19 09:15] LABS: Red Blood Cells-Urine 10-25 SEEN /hpf (0-5); Squamous Epithelial Cells - UA 0-5 SEEN /hpf (5-10); White Blood Cells 10-25 SEEN /hpf (0-5)
[2020-08-19 09:16] LABS: Bacteria 1+ /hpf (None Seen)
--- NOTE | 2020-08-19 10:04 | NURSING ---
DR [place] FOR DR HUNTER
--- NOTE | 2020-08-19 10:09 | NURSING ---
MED SURG OBS ANEMIA, GI BLEED ANASTASIYA
--- NOTE | 2020-08-19 14:25 | PCM.HP.STD ---
History of Present Illness Date of Admission: 08/19/20 Chief Complaint: Weakness The patient is a 79 year old F with a PMH as below presents to the hospital with weakness. She states that about a week ago she fell backwards while entering her door and landed on her butt. She said that she did hit her head but did not get knocked out at that time and she currently denies any headaches, blurry vision, or dizziness. She does have some lower extremity pain which was x-rayed in the ER and was negative for fracture. She had been doing okay at home after the fall however she seems to have progressively gotten weaker and weaker, and last evening she was unable to go up the stairs secondary to the weakness. She also was found to have a lower hemoglobin. Back in April she had a hemoglobin at around 11 and currently she is 8.8. She said that she recently had a colonoscopy which was unremarkable however since then she says that her hemorrhoids had been bleeding. She is currently anticoagulated for A. fib. In the ER her hemoglobin is 8.8, her creatinine is baseline at 1.6. X-rays of her right ankle demonstrate swelling, and CT of the brain was negative for head bleed. 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) Nonischemic cardiomyopathy (Chronic) Paroxysmal atrial fibrillation (Chronic) Paroxysmal atrial flutter (Chronic) Hyperlipidemia (Chronic) Type 2 diabetes mellitus (Chronic) Medical History: Medical History (Last Reviewed 05/07/19 @ 15:11 by Trina Fine) Paroxysmal atrial fibrillation (Chronic) I48.0 Paroxysmal atrial flutter (Chronic) I48.92 Abdominal pain (Acute) R10.9 Hyperlipidemia (Chronic) E78.5 Type 2 diabetes mellitus (Chronic) E11.9 TAWANDA (acute kidney injury) N17.9 Cardiomyopathy in disease classified elsewhere I43 Cholecystitis with cholelithiasis K80.10 Choledocholithiasis with acute cholecystitis K80.42 Generalized anxiety disorder F41.1 Generalized osteoarthritis M15.9 Dehydration (Resolved) E86.0 Diarrhea (Resolved) R19.7 Allergies iodine Allergy (Verified 07/31/20 11:47) Hives simvastatin Allergy (Verified 07/31/20 11:47) Other Stjaeda-Swb-Bzz Reductase Inhibitor Adverse Reaction (Severe, Verified 07/31/20 11:47) mylagias Home Medications: Ambulatory Orders Medication Instructions Recorded Allopurinol [Zyloprim] 200 mg PO DAILYCM 07/04/13 Cyanocobalamin (Vitamin B-12) 1,000 mcg IM QMONTH 07/04/13 [Vitamin B-12] Gabapentin [Neurontin] 300 mg PO 4X/DAY 07/04/13 Glimepiride [Amaryl] 2 mg PO DAILY 07/04/13 Lansoprazole [Prevacid] 30 mg PO DAILY 07/04/13 Colestipol Tablet [Colestid Tablet] 1 gm PO BIDCM 02/05/15 Multivitamin with Iron [One Daily 1 ea PO DAILY 02/05/15 Plus Iron] Carvedilol [Coreg (Beta Aminah)] 50 mg PO BID 01/05/18 Rivaroxaban [Xarelto] 15 mg PO QHS 01/05/18 amiodarone 200 mg tablet 200 mg PO DAILY #90 tab 03/29/19 pioglitazone 15 mg tablet 30 mg PO QHS 03/29/19 cholecalciferol (vitamin D3) 1,250 50,000 unit PO TU 05/07/19 mcg (50,000 unit) capsule clotrimazole 1 % vaginal cream 1 appful VAGINAL BID PRN g 05/07/19 levothyroxine 125 mcg capsule 137 mcg PO DAILY cap 11/19/19 Dulaglutide [Trulicity] 1.5 mg SQ PONCE 07/24/20 Triamcinolone 0.1% Cream [Kenalog] 1 applic TOPICAL DAILY PRN 08/19/20 Surgical History: Surgical History (Last Reviewed 05/07/19 @ 15:11 by Trina Fine) History of carpal tunnel surgery Z98.890 History of cataract surgery Z98.49 History of knee replacement Z96.659 History of tonsillectomy Z90.89 Surgical History: total knee arthroplasty, - - OZ, cyst removal from the breast which was benign, tonsillectomy Psychiatric History: No pertinent psych hx 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 Denies: Chills, Fever, Weight Change HEENT: Denies: Head Aches, Sinus Congestion, Sinus Drainage Cardiovascular: Denies: Chest Pain, Palpitations Respiratory: Denies: Cough, Shortness of breath at rest, Sputum production Gastrointestinal: Reports: Hematochezia. Denies: Abdominal Pain, Nausea, Vomiting Genitourinary: Denies: Dysuria Musculoskeletal: Denies: Joint Pain, Joint Tenderness Skin: Denies: Rash, Wounds Neurological: Denies: Numbness, Tingling, Focal weakness Psychiatric: Denies: Anxiety, Depression Hematologic/ Lymphatic: Denies: Easy Bruising, Easy Bleeding VTE Information - Inpt Only VTE Present on Admission: No - Physical Exam Vitals/I&O's: Vital Signs Temp Pulse Resp BP Pulse Ox 97.9 F 72 16 144/49 H 95 08/19/20 11:10 08/19/20 11:10 08/19/20 11:10 08/19/20 11:10 08/19/20 11:10 Oxygen Delivery Method Room Air Weight: 236 lb 8.896 oz Body Mass Index (BMI) 35.9 General: Alert, Oriented x3, Cooperative, No apparent distress HEENT: Atraumatic, PERRLA, EOMI, Normocephalic Oral: Moist Mucosa Neck: Supple, No JVD Lungs: Clear to auscultation, Normal air movement, No rhonchi, No wheeze, No rales Cardiovascular: Regular rate, Regular Rhythm, Normal S1, Normal S2, No murmurs Abdomen: Soft, Non Tender, Non-Distended, No Hepato-splenomegaly Extremities: Capillary Refill Less than 3 Seconds, Edema - Bilateral trace Skin: No rashes, No breakdown Neurological: Neuro grossly intact, Sensory exam intact to light touch and pain Psych/Mental Status: Normal Affect, Appropriate Laboratory Results 08/19/20 07:22: WBC 6.2, RBC 2.99 L, Hgb 8.8 L, Hct 28.0 L, MCV 93.6, MCH 29.4, MCHC 31.4 L, RDW Std Deviation 53.9 H, RDW Coeff of Melanie 15.9 H, Plt Count 190, MPV 10.2, Immature Gran % (Auto) 1.000 H, Neut % (Auto) 72.3 H, Lymph % (Auto) 16.9 L, [place] % (Auto) 6.9, Eos % (Auto) 2.7, Baso % (Auto) 0.2, Absolute Neuts (auto) 4.5, Absolute Lymphs (auto) 1.05, Nucleated RBC % 0 08/19/20 07:22: Sodium 141, Potassium 4.4, Chloride 109 H, Carbon Dioxide 29.0, Anion Gap 3 L, BUN 51 H, Creatinine 1.60 H, Estim Creat Clear Calc 28.76, Est GFR (MDRD) Af Amer 40 L, Est GFR (MDRD) Non-Af 33 L, BUN/Creatinine Ratio 31.9 H, Glucose 135 H, Calcium 8.3 L, Total Bilirubin 0.40, AST 21, ALT 18, Alkaline Phosphatase 99, Troponin I < 0.015, Total Protein 6.0 L, Albumin 2.9 L, Globulin 3.1, Albumin/Globulin Ratio 0.9 08/19/20 07:22: B-Natriuretic Peptide 124.0 H 08/19/20 07:22: Magnesium 1.7 08/19/20 08:16: Blood Type O NEGATIVE, Antibody Screen NEGATIVE 08/19/20 09:01: Urine Color Yellow, Urine Clarity Sl. Cloudy, Urine pH 6.0, Ur Specific [place] 1.010, Urine Protein Negative, Urine Glucose (UA) Normal, Urine Ketones Negative, Urine Occult Blood 150 H, Urine Nitrite Negative, Urine Bilirubin Negative, Urine Urobilinogen Normal, Ur Leukocyte Esterase 100 H, Urine RBC 10-25 SEEN, Urine WBC 10-25 SEEN, Ur Squamous Epith Cells 0-5 SEEN, Urine Bacteria 1+, Urine Mucus 0 SEEN Current Medications Acetaminophen (Acetaminophen 325 Mg Tablet) 650 mg PO Q6H PRN PRN PRN Reason: Pain Score 1-10/Temp > 100.7 F Dextrose (Dextrose 50%-Water 25 Gm/50 Ml Disp.Syrin) 0 gm IV X1 PRN; Protocol PRN Reason: Hypoglycemia Glucagon (Glucagon 1 Mg/Ml Syringe) 1 mg IM .X1 PRN PRN Reason: Hypoglycemia Sodium Chloride () 250 mls @ 15 mls/hr IV .[id number] PRN PRN Reason: Saline Flush Sodium Chloride () 250 mls @ 15 mls/hr IV .[id number] PRN PRN Reason: Additional IVPB Infusion Insulin Human Lispro (Insulin Lispro 100 Unit/Ml Insuln.Pen) 0 unit SC [facility]; Protocol Melatonin (Melatonin 3 Mg Tablet) 3 mg PO QHS PRN PRN PRN Reason: INSOMNIA Ondansetron HCl (Ondansetron 4 Mg/2 Ml Vial) 4 mg IV Q8H PRN PRN PRN Reason: NAUSEA/VOMITING Sodium Chloride (0.9% Saline Lock 10 Ml Syringe) 10 - 40 ml IV UD PRN PRN Reason: SALINE FLUSH Assessment/Plan All Active Problems (Last Reviewed 05/07/19 @ 15:11 by Trina Fine) Abdominal pain (Acute) Dehydration (Resolved) Diarrhea (Resolved) 1. Weakness with debility and inability to complete ADLs -She fell about a week ago and has been worsening -PT/OT for evaluation and possible placement -Consult case management for discharge planning 2. Hemorrhoidal bleeding with blood loss anemia -Unsure as to the chronicity of her anemia she does appear to be around baseline however outpatient record review demonstrated that she was 11 in April -We will hold her Xarelto and monitor her hemoglobin 3. Paroxysmal A. fib/HTN/HLD -Blood pressures are currently stable -Hold her Xarelto secondary to her hemorrhoidal bleeding -Continue with amiodarone and Coreg 4. DM 2 -We will hold her home blood sugar medications -Continue with sliding scale insulin, Accu-Cheks AC at bedtime -Make adjustments as necessary 5. CKD 3 -Creatinine is baseline -Continue to monitor, continue with allopurinol 6. GERD -Stable -Continue PPI 7. Hypothyroidism -Stable -Continue with Synthroid DVT: SCDs OBSV E&M: [id number] Initial observation care L2
[2020-08-19] MEDS: Acetaminophen 325 MG Tablet 650 MG PO (14:35)
[2020-08-19 16:25] LABS: Bedside Glucose 142 mg/dL (70-110)
[2020-08-19] MEDS: Gabapentin 300 MG Capsule PO ×2 (17:24→22:41)
[2020-08-19] MEDS: Carvedilol 25 MG Tablet 50 MG PO (22:41)
[2020-08-19] MEDS: 0.9% Saline Lock 10 ML Syringe IV (22:57)
[2020-08-19 23:05] LABS: Bedside Glucose 117 mg/dL (70-110)
[2020-08-20] VITALS (9 sets, daily range): BP systolic 108–125; BP diastolic 41–48; PULSE 68–77; RESP 13–18; TEMP 36.6–37.8; O2SAT 93–97
[2020-08-20] MEDS: Acetaminophen 325 MG Tablet 650 MG PO ×2 (03:29→14:47)
[2020-08-20] MEDS: Levothyroxine 137 MCG Tablet PO (06:19)
[2020-08-20 06:21] LABS: Absolute Lymphocyte Count 0.98 X10^3/uL (0.83-4.51); Absolute Neutrophil Count 4.2 X10^3/uL (2.0-7.7); Basophil# 0.02 X10^3/uL; Basophil% 0.3 % (0-1); Eosinophil# 0.11 X10^3/uL; Eosinophils% 1.9 % (0-5); Hematocrit 24.7 % (37-47); Hemoglobin 7.5 g/dL (12.0-15.0); Lymphocyte # 0.98 X10^3/ul (4.0); Lymphocyte % 16.8 % (19-41); Mean Corp Hgb Conc 30.4 g/dL (32-36); Mean Corpuscular Hgb 28.5 pg (27.0-32.0); Mean Corpuscular Volume 93.9 fL (81-99); Mean Platelet Vol. 10.7 fl (6.2-12.0); Monocyte% 8.6 % (0-10); NRBC Flagged by Analyzer 0.3 % (0-5); Neutrophil # 4.17 X10^3/uL (2.7-7.7); Neutrophil % 71.7 % (47-70); Platelet Count 174 K/mm3 (150-450); RBC Distribution Width CV 15.9 % (11.6-14.6); RBC Distribution Width SD 53.9 fl (35.1-43.9); Red Blood Count 2.63 M/mm3 (4.2-5.4); White Blood Count 5.8 K/mm3 (4.4-11.0)
[2020-08-20] MEDS: Nystatin Powder 15gm Bottle 1 APPLIC TOPICAL ×2 (06:23→21:07)
[2020-08-20 06:35] LABS: Bedside Glucose 90 mg/dL (70-110)
[2020-08-20 06:44] LABS: Anion Gap 5 (5-15); BUN 49 mg/dL (7-18); BUN/Creat Ratio 27.7 RATIO (10-20); Calcium,Total 8.3 mg/dL (8.5-10.1); Chloride 108 mmol/L (98-107); Creatinine, Serum 1.77 mg/dL (0.55-1.02); EST Glomerular Filtration Rate 29 mL/min (>60); Est Glom Filt Rate - Afr Amer 36 mL/min (>60); Glucose 87 mg/dL (74-106); Potassium 4.4 mmol/L (3.5-5.1); Sodium Level 141 mmol/L (136-145)
[2020-08-20] MEDS: Gabapentin 300 MG Capsule PO ×4 (08:18→21:07)
[2020-08-20] MEDS: Allopurinol 100 MG Tablet 200 MG PO (08:18)
--- NOTE | 2020-08-20 09:46 | CASEMGMT ---
SW spoke with patient. She agrees she needs to go somewhere for rehab. Patient was provided a list of SNF providers including quality and resource use data and consistent with the patient?s preferred geographic region, medical needs, and insurance network. Her first choice was [facility]. ELZA told her SW will check on beds, but to pick a couple other options in case there are no beds. SW called [facility] and [facility] will have a bed for patient. SW notified patient of this information and that she will stay in the hospital until we here from her insurance. Plan: TCU pending pre-cert. Jonna CANTRELL MSW
--- NOTE | 2020-08-20 10:13 | CASEMGMT ---
Intro role of CM to patient and MARTINEZ form explained re: Observation status for treatment of weakness, debility and anemia. Explained hospitalization will be paid per insurance policy for Outpatient billing and condition will continue to be evaluated for Inpt necessity. Also let pt know that [facility] sends paper in the billing packet with their phone number if questions arise. Discussed Pharmacy section of MARTINEZ form and self administered medication guideline. Pt plans to go to SNF on discharge. Explained she will not need 3 day stay as is detailed on MARTINEZ form as precert will be obtained from insurance. Pt verbalizes understanding and does not have further questions. Form signed and placed in chart, copy to pt. MYA SANFORD BSN LOBITO
[2020-08-20] MEDS: Amiodarone 200 MG Tablet PO (10:43)
[2020-08-20] MEDS: Pantoprazole Sodium 40 MG Tablet PO (10:43)
[2020-08-20] MEDS: Carvedilol 25 MG Tablet 50 MG PO ×2 (10:44→21:07)
[2020-08-20 11:35] LABS: Bedside Glucose 220 mg/dL (70-110)
[2020-08-20] MEDS: Insulin Lispro 100 UNIT/ML INSULN.PEN SC (11:40)
--- NOTE | 2020-08-20 12:10 | PN_ITS ---
Subjective: Feeling better today, states that bleeding has stopped from her rectum she had a normal bowel movement today. Vitals/I&O's: Vital Signs Temp Pulse Resp BP Pulse Ox 98.8 F 73 16 125/47 H 95 08/20/20 08:24 08/20/20 08:24 08/20/20 10:08 08/20/20 08:24 08/20/20 08:24 Oxygen Delivery Method Room Air Weight: 236 lb 8.896 oz Body Mass Index (BMI) 35.9 Intake and Output for Last 24 Hours 08/18/20 08/19/20 08/20/20 23:59 23:59 23:59 Intake Total 360 / 610 450 / 450 Balance 360 / 610 450 / 450 General: Alert, Oriented x3, Cooperative, No apparent distress HEENT: Atraumatic, PERRLA, EOMI, Normocephalic Oral: Moist Mucosa Neck: Supple, No JVD Lungs: Clear to auscultation, Normal air movement, No rhonchi, No wheeze, No rales Cardiovascular: Regular rate, Regular Rhythm, Normal S1, Normal S2, No murmurs Abdomen: Soft, Non Tender, Non-Distended, No Hepato-splenomegaly Extremities: Capillary Refill Less than 3 Seconds, Edema - Bilateral trace Skin: No rashes, No breakdown Neurological: Neuro grossly intact, Sensory exam intact to light touch and pain Psych/Mental Status: Normal Affect, Appropriate Microbiology Past 72 Hours 08/19/20 09:01 Urine, Clean Catch Urine Culture - Final Mixed Gram Positive Organisms Laboratory Results 08/19/20 08:16: Crossmatch See Detail 08/19/20 16:21: POC Glucose 142 H 08/19/20 22:37: POC Glucose 117 H 08/20/20 05:50: WBC 5.8, RBC 2.63 L, Hgb 7.5 L, Hct 24.7 L, MCV 93.9, MCH 28.5, MCHC 30.4 L, RDW Std Deviation 53.9 H, RDW Coeff of Melanie 15.9 H, Plt Count 174, MPV 10.7, Immature Gran % (Auto) 0.700, Neut % (Auto) 71.7 H, Lymph % (Auto) 16.8 L, [place] % (Auto) 8.6, Eos % (Auto) 1.9, Baso % (Auto) 0.3, Absolute Neuts (auto) 4.2, Absolute Lymphs (auto) 0.98, Nucleated RBC % 0.3 08/20/20 05:50: Sodium 141, Potassium 4.4, Chloride 108 H, Carbon Dioxide 28.0, Anion Gap 5, BUN 49 H, Creatinine 1.77 H, Estim Creat Clear Calc 26.00, Est GFR (MDRD) Af Amer 36 L, Est GFR (MDRD) Non-Af 29 L, BUN/Creatinine Ratio 27.7 H, Glucose 87, Calcium 8.3 L 08/20/20 06:22: POC Glucose 90 08/20/20 10:48: POC Glucose 220 H Current Medications Acetaminophen (Acetaminophen 325 Mg Tablet) 650 mg PO Q6H PRN PRN PRN Reason: Pain Score 1-10/Temp > 100.7 F Last Admin: 08/20/20 03:29 Dose: 650 mg Documented by: Allopurinol ([facility] 100 Mg Tablet) [facility] Last Admin: 08/20/20 08:18 Dose: 200 mg Documented by: Amiodarone HCl (Amiodarone 200 Mg Tablet) 200 mg PO DAILY [facility] Last Admin: 08/20/20 10:43 Dose: 200 mg Documented by: Carvedilol (Carvedilol 25 Mg Tablet) 50 mg PO BID [facility] Last Admin: 08/20/20 10:44 Dose: 50 mg Documented by: Colestipol HCl (Colestipol Hcl 1 Gm Tablet) [facility] Last Admin: 08/20/20 08:18 Dose: 1 gm Documented by: Dextrose (Dextrose 50%-Water 25 Gm/50 Ml Disp.Syrin) 0 gm IV X1 PRN; Protocol PRN Reason: Hypoglycemia Gabapentin (Gabapentin 300 Mg Capsule) [facility] Last Admin: 08/20/20 11:40 Dose: 300 mg Documented by: Glucagon (Glucagon 1 Mg/Ml Syringe) 1 mg IM .X1 PRN PRN Reason: Hypoglycemia Sodium Chloride () 250 mls @ 15 mls/hr IV .[id number] PRN PRN Reason: Saline Flush Sodium Chloride () 250 mls @ 15 mls/hr IV .[id number] PRN PRN Reason: Additional IVPB Infusion Insulin Human Lispro (Insulin Lispro 100 Unit/Ml Insuln.Pen) 0 unit SC ACHS [facility]; Protocol Last Admin: 08/20/20 11:40 Dose: 4 u Documented by: Levothyroxine Sodium (Levothyroxine 137 Mcg Tablet) 137 mcg PO DAILY@0600 [facility] Last Admin: 08/20/20 06:19 Dose: 137 mcg Documented by: Melatonin (Melatonin 3 Mg Tablet) 3 mg PO QHS PRN PRN PRN Reason: INSOMNIA Nystatin (Nystatin Powder 15gm Bottle) 1 applic TOPICAL BID [facility]; Protocol Last Admin: 08/20/20 06:23 Dose: 1 applic Documented by: Ondansetron HCl (Ondansetron 4 Mg/2 Ml Vial) 4 mg IV Q8H PRN PRN PRN Reason: NAUSEA/VOMITING Pantoprazole Sodium (Pantoprazole Sodium 40 Mg Tablet) 40 mg PO DAILY [facility] Last Admin: 08/20/20 10:43 Dose: 40 mg Documented by: Sodium Chloride (0.9% Saline Lock 10 Ml Syringe) 10 - 40 ml IV UD PRN PRN Reason: SALINE FLUSH Last Admin: 08/19/20 22:57 Dose: 10 ml Documented by: STROKE Vital Signs/Narrative: Vital Signs Temp Pulse Resp BP Pulse Ox 08/20/20 10:08 16 08/20/20 08:24 98.8 F 73 13 125/47 H 95 Medical Necessity - Tobacco Use Smoking Status: Never smoker Tobacco Use: Non-smoker Assessment/Plan All Active Problems (Last Reviewed 05/07/19 @ 15:11 by Trina Fine) Abdominal pain (Acute) Dehydration (Resolved) Diarrhea (Resolved) 1. Weakness with debility and inability to complete ADLs -She fell about a week ago and has been worsening -PT/OT for evaluation and possible placement -Consult case management for discharge planning 2. Hemorrhoidal bleeding with blood loss anemia -Unsure as to the chronicity of her anemia she does appear to be around baseline however outpatient record review demonstrated that she was 11 in April -We will hold her Xarelto -Hemoglobin went from 8.8-7.5 without being on any IV fluids therefore will transfuse 1 unit 3. Paroxysmal A. fib/HTN/HLD -Blood pressures are currently stable -Hold her Xarelto secondary to her hemorrhoidal bleeding -Continue with amiodarone and Coreg 4. DM 2 -We will hold her home blood sugar medications -Continue with sliding scale insulin, Accu-Cheks AC at bedtime -Make adjustments as necessary 5. CKD 3 -Creatinine is close to baseline, baseline is 1.4 and she is currently 1.77 -Continue to monitor, continue with allopurinol 6. GERD -Stable -Continue PPI 7. Hypothyroidism -Stable -Continue with Synthroid DVT: SCDs OBSV E&M: 02081 Subsequent observation care L2
--- NOTE | 2020-08-20 12:15 | NURSING ---
STUDENT CHARTING REVIEWED BY THIS RN. THIS RN AGREES WITH CHARTING.
--- NOTE | 2020-08-20 12:17 | NURSING ---
STUDENT CHARTING REVIEWED BY THIS RN. THIS RN AGREES WITH STUDENT CHARTING.
[2020-08-20 16:45] LABS: Bedside Glucose 126 mg/dL (70-110)
[2020-08-20 21:46] LABS: Bedside Glucose 148 mg/dL (70-110)
[2020-08-21 03:01] VITALS: BP 123/48; PULSE 71; RESP 18; TEMP 36.8; O2SAT 94
[2020-08-21] MEDS: Acetaminophen 325 MG Tablet 650 MG PO ×2 (03:04→13:00)
[2020-08-21 05:36] LABS: Absolute Lymphocyte Count 1.06 X10^3/uL (0.83-4.51); Absolute Neutrophil Count 4.6 X10^3/uL (2.0-7.7); Basophil# 0.02 X10^3/uL; Basophil% 0.3 % (0-1); Eosinophil# 0.15 X10^3/uL; Eosinophils% 2.3 % (0-5); Hematocrit 27.4 % (37-47); Hemoglobin 8.4 g/dL (12.0-15.0); Lymphocyte # 1.06 X10^3/ul (4.0); Lymphocyte % 16.3 % (19-41); Mean Corp Hgb Conc 30.7 g/dL (32-36); Mean Corpuscular Hgb 27.7 pg (27.0-32.0); Mean Corpuscular Volume 90.4 fL (81-99); Mean Platelet Vol. 10.1 fl (6.2-12.0); Monocyte# 0.59 X10^3/uL; Monocyte% 9.1 % (0-10); NRBC Flagged by Analyzer 0 % (0-5); Neutrophil # 4.62 X10^3/uL (2.7-7.7); Neutrophil % 71.2 % (47-70); Platelet Count 175 K/mm3 (150-450); RBC Distribution Width CV 17.2 % (11.6-14.6); RBC Distribution Width SD 55.5 fl (35.1-43.9); Red Blood Count 3.03 M/mm3 (4.2-5.4); White Blood Count 6.5 K/mm3 (4.4-11.0)
[2020-08-21 05:55] LABS: Anion Gap 8 (5-15); BUN 46 mg/dL (7-18); BUN/Creat Ratio 26.4 RATIO (10-20); Calcium,Total 8.6 mg/dL (8.5-10.1); Chloride 105 mmol/L (98-107); Creatinine, Serum 1.74 mg/dL (0.55-1.02); EST Glomerular Filtration Rate 30 mL/min (>60); Est Glom Filt Rate - Afr Amer 36 mL/min (>60); Estimated Creatinine Clearance 26.45 ml/min; Glucose 130 mg/dL (74-106); Potassium 4.2 mmol/L (3.5-5.1); Sodium Level 139 mmol/L (136-145)
[2020-08-21] MEDS: Levothyroxine 137 MCG Tablet PO (06:17)
[2020-08-21 06:30] LABS: Bedside Glucose 125 mg/dL (70-110)
[2020-08-21 08:02] VITALS: BP 117/45; PULSE 70; RESP 18; TEMP 36.9; O2SAT 95
[2020-08-21] MEDS: Gabapentin 300 MG Capsule PO ×2 (08:03→11:25)
[2020-08-21] MEDS: Allopurinol 100 MG Tablet 200 MG PO (08:03)
[2020-08-21] MEDS: Pantoprazole Sodium 40 MG Tablet PO (08:04)
[2020-08-21] MEDS: Carvedilol 25 MG Tablet 50 MG PO (08:04)
[2020-08-21] MEDS: Nystatin Powder 15gm Bottle 1 APPLIC TOPICAL (08:04)
[2020-08-21] MEDS: Amiodarone 200 MG Tablet PO (08:04)
--- NOTE | 2020-08-21 09:14 | CASEMGMT ---
ELZA spoke with patient this am. SW let her know we are still waiting on insurance. SW asked if she would be able to bring in her home Trulicity and she can do this. SW asked if she has had both vaccines. She said she got her last one last week. SW told her she will have to quarantine for 14 days and if she is still there they are doing limited scheduled visits. She verbalized understanding. Plan: d/c to [facility] TCU pending pre-cert. Jonna CANTRELL MSW
[2020-08-21] MEDS: Insulin Lispro 100 UNIT/ML INSULN.PEN SC (11:24)
[2020-08-21 11:36] LABS: Bedside Glucose 234 mg/dL (70-110)
--- NOTE | 2020-08-21 11:45 | CASEMGMT ---
ELZA received a call from Feli with [employer] and insurance is denying patient. SW obtained the peer to peer information. SW spoke with physician and he is willing to do a peer to peer. SW called and arranged the peer to peer. SW also went to patient's room and made her aware she may get denied. ELZA told her physician is doing a peer to peer where her doctor here talks with the doctor at the insurance company. SW told her SW will let her know as soon as ELZA hears back. Jonna CANTRELL MSW
--- NOTE | 2020-08-21 12:45 | CASEMGMT ---
SW received a call from Dr Morales and patient was approved. SW notified Feli with TCU and patient can go to TCU today,after she has had a COVID test. RN will do COVID test. RN, field secretary, and patient were all notified patient was approved and will go today. Plan: d/c to [facility] TCU under skilled level of care. Jonna MEDEL
[2020-08-21 13:01] VITALS: BP 138/60; PULSE 69; RESP 16; TEMP 36.5; O2SAT 98
--- NOTE | 2020-08-21 13:16 | PCM.TXEXTCAR ---
- Diet 08/19/20 11:58 Diet: Consistent Carb - Calorie Controlled Food consistency:: Regular Liquid Consistency:: Regular/Thin How many daily calories?: 1800 calorie - Routine Orders/Code Status Routine Lab Work: CBC - Therapies Physical Therapy: Eval and Treat Occupational Therapy: Eval and Treat - Allergies/Procedures Done in Hospital Allergies/Adverse Reactions: Allergies iodine Allergy (Verified 07/31/20 11:47) Hives simvastatin Allergy (Verified 07/31/20 11:47) Other Naiuyyu-Enz-Aih Reductase Inhibitor Adverse Reaction (Severe, Verified 07/31/20 11:47) mylagias Procedures: None - Type of Care/Length of Stay Estimated LOS: Convalescent Care Less Than 30 days Type of Care Needed: Skilled Rehab Potential: Good Prognosis: Good - Additional Orders/Day of Discharge Day of Discharge: 08/21/20 - Follow Up Care Primary Care Physician: Stefan Gordon MD [Primary Care Provider] - Please follow up with your Primary Care Physician in: 3-5 days
--- NOTE | 2020-08-21 13:21 | PCM.DC.SUM ---
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 Electronically Signed: Pau Jacinto MD at 8:14 EDT Tel , Service support , Chest X-Ray 08/19/20 07:50 IMPRESSION: No acute abnormality is seen. Stable examination. Electronically Signed: Jacob Brown MD at 8:17 EDT , Service support , Hip/Pelvis X-Ray 08/19/20 07:50 IMPRESSION: Left hip and pelvis intact Advanced degenerative changes, as above Electronically Signed: Los Ivy DO at 8:15 EDT Tel , Service support , Tibia/Fibula X-Ray 08/19/20 07:50 IMPRESSION: Right tibia/fibula intact Extensive ankle soft tissue swelling Moderate ankle osteoarthritis Uncomplicated knee arthroplasty Electronically Signed: Los Ivy DO at 8:13 EDT Tel , Service support , Operations: None Procedures: None Summary of Care Provided: Per HPI: The patient is a 79 year old F with a PMH as below presents to the hospital with weakness. She states that about a week ago she fell backwards while entering her door and landed on her butt. She said that she did hit her head but did not get knocked out at that time and she currently denies any headaches, blurry vision, or dizziness. She does have some lower extremity pain which was x-rayed in the ER and was negative for fracture. She had been doing okay at home after the fall however she seems to have progressively gotten weaker and weaker, and last evening she was unable to go up the stairs secondary to the weakness. She also was found to have a lower hemoglobin. Back in April she had a hemoglobin at around 11 and currently she is 8.8. She said that she recently had a colonoscopy which was unremarkable however since then she says that her hemorrhoids had been bleeding. She is currently anticoagulated for A. fib. In the ER her hemoglobin is 8.8, her creatinine is baseline at 1.6. X-rays of her right ankle demonstrate swelling, and CT of the brain was negative for head bleed. Hospital Course: 1. Weakness and debility and inability to complete [id number] female presents to the hospital with weakness and debility. She had fallen approximately a week prior to admission and has since then been getting weaker. She underwent physical therapy and Occupational Therapy evaluation and was found to be able to walk about 80 feet with a wheeled walker and contact-guard however during the course of her ambulation she was tiring out very quickly and then her form deteriorated with her feet dragging and she became a fall risk. Therefore she was evaluated by case management for placement at a half-way facility which she was accepted to today. Plan will be for for rehab as an outpatient prior to discharge home. I did discuss with her the plan for discharge and she expressed understanding of the risk benefits of discharge and would like to go to skilled facility today. 2. Hemorrhoidal bleeding with acute blood loss anemia-she had a colonoscopy about a month prior to admission which was unremarkable except for hemorrhoids. She says since the procedure she has been having bright red blood per rectum and her April hemoglobin was around 11 and on admission she was 8.8. She did decline to 7.5 and was transfused 1 unit. She is on Xarelto for history of A. fib and this was Haldol could likely be restarted today since her hemoglobin responded after the transfusion to 8.4 and she states that she has not noticed any bright red blood for the last 2 and half days. I would recommend following up as an outpatient with CBCs. 3. Paroxysmal A. fib, hypertension, hyperlipidemia, type 2 diabetes, CKD 3b, GERD, hypothyroidism all chronic medical conditions which complicate her care. Her home medications were continued where appropriate - Physical Exam Vitals/I&O's: Vital Signs Temp Pulse Resp BP Pulse Ox 97.7 F L 69 16 138/60 H 98 08/21/20 13:01 08/21/20 13:01 08/21/20 13:01 08/21/20 13:01 08/21/20 13:01 Oxygen Delivery Method Room Air Weight: 236 lb 8.896 oz Body Mass Index (BMI) 35.9 Intake and Output for Last 24 Hours 08/19/20 08/20/20 08/21/20 23:59 23:59 23:59 Intake Total 360 / 610 850 / 1050 450 / 450 Balance 360 / 610 850 / 1050 450 / 450 General: Alert, Oriented x3, Cooperative, No apparent distress HEENT: Atraumatic, PERRLA, EOMI, Normocephalic Oral: Moist Mucosa Neck: Supple, No JVD Lungs: Clear to auscultation, Normal air movement, No rhonchi, No wheeze, No rales Cardiovascular: Regular rate, Regular Rhythm, Normal S1, Normal S2, No murmurs Abdomen: Soft, Non Tender, Non-Distended, No Hepato-splenomegaly Extremities: Capillary Refill Less than 3 Seconds, Edema - Bilateral trace Skin: No rashes, No breakdown Neurological: Neuro grossly intact, Sensory exam intact to light touch and pain Psych/Mental Status: Normal Affect, Appropriate Microbiology Past 72 Hours 08/19/20 09:01 Urine, Clean Catch Urine Culture - Final Mixed Gram Positive Organisms Laboratory Results 08/19/20 08:16: Crossmatch See Detail 08/20/20 16:33: POC Glucose 126 H 08/20/20 21:38: POC Glucose 148 H 08/21/20 05:20: WBC 6.5, RBC 3.03 L, Hgb 8.4 L, Hct 27.4 L, MCV 90.4, MCH 27.7, MCHC 30.7 L, RDW Std Deviation 55.5 H, RDW Coeff of Melanie 17.2 H, Plt Count 175, MPV 10.1, Immature Gran % (Auto) 0.800, Neut % (Auto) 71.2 H, Lymph % (Auto) 16.3 L, [place] % (Auto) 9.1, Eos % (Auto) 2.3, Baso % (Auto) 0.3, Absolute Neuts (auto) 4.6, Absolute Lymphs (auto) 1.06, Nucleated RBC % 0 08/21/20 05:20: Sodium 139, Potassium 4.2, Chloride 105, Carbon Dioxide 26.0, Anion Gap 8, BUN 46 H, Creatinine 1.74 H, Estim Creat Clear Calc 26.45, Est GFR (MDRD) Af Amer 36 L, Est GFR (MDRD) Non-Af 30 L, BUN/Creatinine Ratio 26.4 H, Glucose 130 H, Calcium 8.6 08/21/20 06:18: POC Glucose 125 H 08/21/20 11:23: POC Glucose 234 H Current Medications Acetaminophen (Acetaminophen 325 Mg Tablet) 650 mg PO Q6H PRN PRN PRN Reason: Pain Score 1-10/Temp > 100.7 F Last Admin: 08/21/20 13:00 Dose: 650 mg Documented by: Allopurinol ([facility]op[facility] 100 Mg Tablet) [facility] Last Admin: 08/21/20 08:03 Dose: 200 mg Documented by: Amiodarone HCl (Amiodarone 200 Mg Tablet) 200 mg PO DAILY [facility] Last Admin: 08/21/20 08:04 Dose: 200 mg Documented by: Carvedilol (Carvedilol 25 Mg Tablet) 50 mg PO BID [facility] Last Admin: 08/21/20 08:04 Dose: 50 mg Documented by: Colestipol HCl (Colestipol Hcl 1 Gm Tablet) [facility] Last Admin: 08/21/20 08:03 Dose: 1 gm Documented by: Dextrose (Dextrose 50%-Water 25 Gm/50 Ml Disp.Syrin) 0 gm IV X1 PRN; Protocol PRN Reason: Hypoglycemia Gabapentin (Gabapentin 300 Mg Capsule) [facility] Last Admin: 08/21/20 11:25 Dose: 300 mg Documented by: Glucagon (Glucagon 1 Mg/Ml Syringe) 1 mg IM .X1 PRN PRN Reason: Hypoglycemia Sodium Chloride () 250 mls @ 15 mls/hr IV .[id number] PRN PRN Reason: Saline Flush Sodium Chloride () 250 mls @ 15 mls/hr IV .[id number] PRN PRN Reason: Additional IVPB Infusion Insulin Human Lispro (Insulin Lispro 100 Unit/Ml Insuln.Pen) 0 unit SC ACHS [facility]; Protocol Last Admin: 08/21/20 11:24 Dose: 4 u Documented by: Levothyroxine Sodium (Levothyroxine 137 Mcg Tablet) 137 mcg PO DAILY@0600 [facility] Last Admin: 08/21/20 06:17 Dose: 137 mcg Documented by: Melatonin (Melatonin 3 Mg Tablet) 3 mg PO QHS PRN PRN PRN Reason: INSOMNIA Nystatin (Nystatin Powder 15gm Bottle) 1 applic TOPICAL BID [facility]; Protocol Last Admin: 08/21/20 08:04 Dose: 1 applic Documented by: Ondansetron HCl (Ondansetron 4 Mg/2 Ml Vial) 4 mg IV Q8H PRN PRN PRN Reason: NAUSEA/VOMITING Pantoprazole Sodium (Pantoprazole Sodium 40 Mg Tablet) 40 mg PO DAILY [facility] Last Admin: 08/21/20 08:04 Dose: 40 mg Documented by: Sodium Chloride (0.9% Saline Lock 10 Ml Syringe) 10 - 40 ml IV UD PRN PRN Reason: SALINE FLUSH Last Admin: 08/19/20 22:57 Dose: 10 ml Documented by: Home Medications: Medications to take at Discharge Allopurinol [Zyloprim] 200 mg PO DAILYCM 07/04/13 Cyanocobalamin (Vitamin B-12) [Vitamin B-12] 1,000 mcg IM QMONTH 07/04/13 Gabapentin [Neurontin] 300 mg PO 4X/DAY 07/04/13 Glimepiride [Amaryl] 2 mg PO DAILY 07/04/13 Lansoprazole [Prevacid] 30 mg PO DAILY 07/04/13 Colestipol Tablet [Colestid Tablet] 1 gm PO BIDCM 02/05/15 Multivitamin with Iron [One Daily Plus Iron] 1 ea PO DAILY 02/05/15 Carvedilol [Coreg (Beta Aminah)] 50 mg PO BID 01/05/18 Rivaroxaban [Xarelto] 15 mg PO QHS 01/05/18 amiodarone 200 mg tablet 200 mg PO DAILY #90 tab 03/29/19 pioglitazone 15 mg tablet 30 mg PO QHS 03/29/19 cholecalciferol (vitamin D3) 1,250 mcg (50,000 unit) capsule 50,000 unit PO TU 05/07/19 clotrimazole 1 % vaginal cream 1 appful VAGINAL BID PRN g 05/07/19 levothyroxine 125 mcg capsule 137 mcg PO DAILY cap 11/19/19 Dulaglutide [Trulicity] 1.5 mg SQ PONCE 07/24/20 Triamcinolone 0.1% Cream [Kenalog] 1 applic TOPICAL DAILY PRN 08/19/20 Primary Care Physician: Stefan Gordon MD [Primary Care Provider] - Please follow up with your Primary Care Physician in: 3-5 days Disposition: Long-Term facility Minutes spent on discharge:: 35 Patient Condition:: Stable Medical Necessity - Tobacco Use Smoking Status: Never smoker Tobacco Use: Non-smoker Meaningful Use Info Meaningful Use Diagnoses (Choose all that apply): None applicable OBSV E&M: 24799 Observation care discharge
--- NOTE | 2020-08-21 13:46 | PHA.DC.MR ---
Pharmacy Service has performed discharge medication reconciliation for this patient. The patient's discharge medication list was reviewed for discrepancies and discrepancies were resolved. Home Medications Allopurinol [Zyloprim] 200 mg PO DAILYCM 07/04/13 Cyanocobalamin (Vitamin B-12) [Vitamin B-12] 1,000 mcg IM QMONTH 07/04/13 Gabapentin [Neurontin] 300 mg PO 4X/DAY 07/04/13 Glimepiride [Amaryl] 2 mg PO DAILY 07/04/13 Lansoprazole [Prevacid] 30 mg PO DAILY 07/04/13 Colestipol Tablet [Colestid Tablet] 1 gm PO BIDCM 02/05/15 Multivitamin with Iron [One Daily Plus Iron] 1 ea PO DAILY 02/05/15 Carvedilol [Coreg (Beta Aminah)] 50 mg PO BID 01/05/18 Rivaroxaban [Xarelto] 15 mg PO QHS 01/05/18 amiodarone 200 mg tablet 200 mg PO DAILY #90 tab 03/29/19 pioglitazone 15 mg tablet 30 mg PO QHS 03/29/19 cholecalciferol (vitamin D3) 1,250 mcg (50,000 unit) capsule 50,000 unit PO TU 05/07/19 clotrimazole 1 % vaginal cream 1 appful VAGINAL BID PRN g 05/07/19 levothyroxine 125 mcg capsule 137 mcg PO DAILY cap 11/19/19 Dulaglutide [Trulicity] 1.5 mg SQ PONCE 07/24/20 Triamcinolone 0.1% Cream [Kenalog] 1 applic TOPICAL DAILY PRN 08/19/20
== END 2020-08-21 13:17 | disposition skilled nursing facility (03) ==
LOC: ED 10:12 → PCU 10:41
PROVIDERS: Admitting Provider Family Medicine; Emergency Provider Student in an Organized Health Care Education/Training Program; PCP Family Medicine; Visit Provider Family Medicine
DX: R53.1 Weakness (principal); S80.11XA Contusion of right lower leg, initial encounter; K64.9 Unspecified hemorrhoids; S70.02XA Contusion of left hip, initial encounter; M75.101 Unspecified rotator cuff tear or rupture of right shoulder, not specified as traumatic; I48.0 Paroxysmal atrial fibrillation; E11.22 Type 2 diabetes mellitus 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 chronic kidney disease; M15.9 Polyosteoarthritis, unspecified; I43 Cardiomyopathy in diseases classified elsewhere; N18.32 Chronic kidney disease, stage 3b; I12.9 Hypertensive chronic kidney disease with stage 1 through stage 4 chronic kidney disease, or unspecified chronic kidney disease; E78.5 Hyperlipidemia, unspecified; I48.92 Unspecified atrial flutter; I42.8 Other cardiomyopathies; D62 Acute posthemorrhagic anemia; W19.XXXA Unspecified fall, initial encounter; Y93.9 Activity, unspecified; Y92.89 Other specified places as the place of occurrence of the external cause; Y99.9 Unspecified external cause status; Z79.01 Long term (current) use of anticoagulants; Z79.899 Other long term (current) drug therapy; Z91.81 History of falling; K21.9 Gastro-esophageal reflux disease without esophagitis; E03.9 Hypothyroidism, unspecified
CPT/HCPCS: 36415; 36430; 70450; 71045; 73502; 73590; 80048; 80053; 81001; 82962; 83735; 83880; 84484; 85025; 86850; 86900; 86901; 86920; 86922; 87086; 87088; 87426; 93005; 97110; 97116; 97162; 97166; 97535; 99218; 99285; P9016; A4216; G0378

== ENCOUNTER 2020-08-21 15:33 | Inpatient (IN) | payer MEDICARE, SELFPAY ==
[2020-08-19 10:59] VITALS: BMI 35.9
[2020-08-21 15:38] VITALS: BP 128/50; PULSE 65; RESP 16; TEMP 36.3; O2SAT 96
--- NOTE | 2020-08-21 15:41 | HP.PCM_ITS ---
Problem List (1) Debility Status: Acute (2) Fall Status: Acute (3) Anemia Status: Chronic (4) Hemorrhoids Status: Acute (5) Diabetes mellitus Status: Chronic (6) Atrial fibrillation Status: Chronic (7) Gout Status: Chronic (8) Diabetic neuropathy Status: Chronic (9) Gastroesophageal reflux disease Status: Chronic (10) Vitamin D deficiency Status: Chronic (11) Hypothyroidism Status: Chronic (12) Hyperlipidemia Status: Chronic Qualifiers: History of Present Illness Date of Admission: 08/21/20 Chief Complaint: Here for rehabilitation, strengthening, prior to discharge home alone. 08/19/2020 The patient is a 79 year old Female with below past medical history here for fall. 08/19/2020 EKG normal sinus rhythm, normal EKG. 08/19/2020 CT brain chronic involutional changes. 08/19/2020 Chest X-ray negative, stable. 08/19/2020 X-ray pelvis, left hip showed left hip, pelvis intact. Advanced degenerative changes. 08/19/2020 X-ray right tibia, fibula, right tibia/fibula, extensive ankle soft tissue swelling. Moderate ankle osteoarthritis, right total knee arthroplasty. Fell backwards 6 days ago, landed on buttocks. Hit head, no loss of consciousness, on Xarelto. Left buttock pain, right tibial pain. Able to ambulate, unable to climb stairs. New bilateral lower extremity, chronic anemia. 08/19/2020 Admit to Hospital. PT/OT for [facility]. Hold Xarelto, monitor hemoglobin for anemia, hemorrhoidal bleeding. 08/20/2020 Rectal bleeding stopped. Transfuse 1 unit PRBC. 08/21/2020 Restart Xarelto. 08/21/2020 Admit to TCU with debility, here for rehabilitation, strengthening, prior to discharge home alone. 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) Nonischemic cardiomyopathy (Chronic) Paroxysmal atrial fibrillation (Chronic) Paroxysmal atrial flutter (Chronic) Hyperlipidemia (Chronic) Type 2 diabetes mellitus (Chronic) Medical History: Medical History (Last Reviewed 05/07/19 @ 15:11 by Trina Fine) Paroxysmal atrial fibrillation (Chronic) I48.0 Paroxysmal atrial flutter (Chronic) I48.92 Abdominal pain (Acute) R10.9 Hyperlipidemia (Chronic) E78.5 Type 2 diabetes mellitus (Chronic) E11.9 TAWANDA (acute kidney injury) N17.9 Cardiomyopathy in disease classified elsewhere I43 Cholecystitis with cholelithiasis K80.10 Choledocholithiasis with acute cholecystitis K80.42 Generalized anxiety disorder F41.1 Generalized osteoarthritis M15.9 Dehydration (Resolved) E86.0 Diarrhea (Resolved) R19.7 Allergies iodine Allergy (Verified 07/31/20 11:47) Hives simvastatin Allergy (Verified 07/31/20 11:47) Other Avbydls-Tuy-Fbn Reductase Inhibitor Adverse Reaction (Severe, Verified 07/31/20 11:47) mylagias Home Medications: Ambulatory Orders Medication Instructions Recorded Allopurinol [Zyloprim] 200 mg PO DAILYCM 07/04/13 Cyanocobalamin (Vitamin B-12) 1,000 mcg IM QMONTH 07/04/13 [Vitamin B-12] Gabapentin [Neurontin] 300 mg PO 4X/DAY 07/04/13 Glimepiride [Amaryl] 2 mg PO DAILY 07/04/13 Lansoprazole [Prevacid] 30 mg PO DAILY 07/04/13 Colestipol Tablet [Colestid Tablet] 1 gm PO BIDCM 02/05/15 Multivitamin with Iron [One Daily 1 ea PO DAILY 02/05/15 Plus Iron] Carvedilol [Coreg (Beta Aminah)] 50 mg PO BID 01/05/18 Rivaroxaban [Xarelto] 15 mg PO QHS 01/05/18 pioglitazone 15 mg tablet 30 mg PO QHS 03/29/19 cholecalciferol (vitamin D3) 1,250 50,000 unit PO TU 05/07/19 mcg (50,000 unit) capsule clotrimazole 1 % vaginal cream 1 appful VAGINAL BID PRN g 05/07/19 levothyroxine 125 mcg capsule 137 mcg PO DAILY cap 11/19/19 Dulaglutide [Trulicity] 1.5 mg SQ PONCE 07/24/20 Triamcinolone 0.1% Cream [Kenalog] 1 applic TOPICAL DAILY PRN 08/19/20 Amiodarone HCl 200 mg PO DAILY 08/21/20 Surgical History: Surgical History (Last Reviewed 05/07/19 @ 15:11 by Trina Fine) History of carpal tunnel surgery Z98.890 History of cataract surgery Z98.49 History of knee replacement Z96.659 History of tonsillectomy Z90.89 Surgical History: cataract, total knee arthroplasty, tonsillectomy, - - cyst removal from the breast which was benign, tonsillectomy Psychiatric History: No pertinent psych hx [employer]IC History: No pertinent [employer] history Lives: Alone Smoking Status: Never smoker Tobacco Use: Non-smoker Alcohol: None Drugs: None - *Family History Paternal Family History: Family History (Last Reviewed 05/07/19 @ 15:11 by Trina Fine) Brother Heart disease Mother Heart disease Father Heart disease History Items: Heart Disease Review of Systems Constitutional: Denies: Chills, Fever, Weight Change HEENT: Denies: Head Aches, Sinus Congestion, Sinus Drainage Cardiovascular: Denies: Chest Pain, Palpitations Respiratory: Denies: Cough, Shortness of breath at rest, Sputum production Gastrointestinal: Denies: Abdominal Pain, Nausea, Vomiting Genitourinary: Denies: Dysuria Musculoskeletal: Denies: Joint Pain, Joint Tenderness Skin: Denies: Rash, Wounds Neurological: Denies: Numbness, Tingling, Focal weakness Psychiatric: Denies: Anxiety, Depression, Homicidal Ideations, Suicidal Id eations Hematologic/ Lymphatic: Denies: Easy Bruising, Easy Bleeding VTE Information - Inpt Only VTE Present on Admission: No VTE Mechan Device Prophylaxis: Knee High ROSALINA Hose VTE Pharm Prophylaxis ordered?: No Reason prophylaxis not ordered:: Treatment Not Indicated Patient Problems: Active and Suspected Problems (Last Reviewed 05/07/19 @ 15:11 by Trina Fine) Debility (Acute) Fall (Acute) Hemorrhoids (Acute) - Physical Exam Vitals/I&O's: Body Mass Index (BMI) 35.9 General: Alert, Oriented x3, Cooperative HEENT: Atraumatic, PERRLA, EOMI, Normocephalic Neck: Supple, No JVD, Negative Carotid Bruits Lungs: Clear to auscultation, Normal air movement Cardiovascular: Regular rate, No murmurs Abdomen: Bowel Sounds Present, Soft, Non Tender Extremities: No edema, Capillary Refill Less than 3 Seconds Skin: No rashes, No breakdown Musculoskeletal: No Tenderness to Palpation of Joints or Extremities Neurological: Cranial nerves II-XII grossly intact Psych/Mental Status: Normal Affect, Appropriate Current Medications Nystatin (Nystatin Powder 15gm Bottle) 1 applic TOPICAL BID ARLETTE; Protocol Assessment/Plan All Active Problems (Last Reviewed 05/07/19 @ 15:11 by Trina Fine) Debility (Acute) Fall (Acute) Hemorrhoids (Acute) Abdominal pain (Acute) Dehydration (Resolved) Diarrhea (Resolved) 79 year old female with below past medical history hospitalized for anemia, hemorrhoidal bleeding, admitted to TCU with debility, here for rehabilitation, strengthening, prior to discharge home alone. * Debility - PT/OT. * Pain - Tylenol 1000MG Q6H PRN pain (1-10). * Bowel - Miralax 17GM daily, Senna/colace 1 tablet BID, MOM 30ML daily PRN, Dulcolax 10MG daily PRN. * Adult immunization - Administer Prevnar 13, Pneumovax 23, Fluzone, COVID19 vaccine. * DVT prophylaxis - Not necessary, Xarelto 15MG daily. * Gout - Allopurinol 200MG daily. * Atrial Fibrillation - Coreg 50MG BID, Amiodarone 200MG daily, Xarelto 15MG QHS. * Candidal vaginitis - Clotrimazole vaginal BID. * Hyperlipidemia - Colestipol 1GM BID. * Vitamin B12 deficiency - B12 1000MCG IM Q month. * Vitamin D deficiency - D2 50,000 units per week. * Diabetic neuropathy - Gabapentin 300MG PO 4x/day. * Diabetes Mellitus II - Glimepiride 2MG daily, Bryon 30MG daily * Hypothyroidism - Levothyroxine 137MCG daily. * Nutrition - MVI daily. * Tinea Corporis - Nystatin powder topical BID. * GERD - Pantoprazole 40MG daily. * Itching - Triamcinolone 0.1% cream topical daily PRN.
[2020-08-21 15:52] VITALS: BMI 38.0
[2020-08-21 15:55] VITALS: BMI 38.0
--- NOTE | 2020-08-21 16:18 | NURSING ---
PHARMACY CALLED AND ASKED IF R' CAN BRING OWN TRULICITY. R' STATES FAMILY MEMBER CAN BRING. PHARMACY AWARE.
[2020-08-21 16:26] LABS: Bedside Glucose 150 mg/dL (70-110)
[2020-08-21] MEDS: Gabapentin 300 MG Capsule PO ×2 (16:49→21:19)
[2020-08-21] MEDS: Carvedilol 25 MG Tablet 50 MG PO (16:50)
[2020-08-21] MEDS: Senna/Docusate Sodium 1 Tablet PO (16:51)
[2020-08-21 21:11] VITALS: BP 140/100; PULSE 68; RESP 16; TEMP 36.8; O2SAT 95
[2020-08-21] MEDS: Nystatin Powder 15gm Bottle 1 APPLIC TOPICAL (21:19)
[2020-08-21] MEDS: Pioglitazone Hydrochloride 30 MG Tablet PO (21:19)
[2020-08-21] MEDS: Rivaroxaban 15 MG Tablet PO (21:19)
[2020-08-21 21:30] LABS: Bedside Glucose 158 mg/dL (70-110)
[2020-08-22] MEDS: Acetaminophen 500 MG Tablet 1000 MG PO ×2 (01:58→22:36)
[2020-08-22] MEDS: Amiodarone 200 MG Tablet PO (05:19)
[2020-08-22] MEDS: Pantoprazole Sodium 40 MG Tablet PO (05:19)
[2020-08-22] MEDS: Senna/Docusate Sodium 1 Tablet PO ×2 (05:19→17:55)
[2020-08-22] MEDS: Carvedilol 25 MG Tablet 50 MG PO ×2 (05:19→17:54)
[2020-08-22] MEDS: Levothyroxine 137 MCG Tablet PO (05:19)
[2020-08-22] MEDS: Gabapentin 300 MG Capsule PO ×4 (05:19→22:22)
[2020-08-22] MEDS: Cyanocobalamin (B12) 1,000 MCG/ML Vial 1000 MCG IM (05:20)
[2020-08-22] MEDS: Nystatin Powder 15gm Bottle 1 APPLIC TOPICAL ×2 (05:21→22:21)
[2020-08-22 06:21] LABS: Bedside Glucose 144 mg/dL (70-110)
[2020-08-22 07:36] LABS: Absolute Lymphocyte Count 0.82 X10^3/uL (0.83-4.51); Basophil# 0.02 X10^3/uL; Basophil% 0.4 % (0-1); Eosinophil# 0.14 X10^3/uL; Eosinophils% 2.5 % (0-5); Hematocrit 26.1 % (37-47); Lymphocyte # 0.82 X10^3/ul (4.0); Lymphocyte % 14.6 % (19-41); Mean Corp Hgb Conc 30.7 g/dL (32-36); Mean Corpuscular Hgb 27.9 pg (27.0-32.0); Mean Corpuscular Volume 90.9 fL (81-99); Mean Platelet Vol. 10.3 fl (6.2-12.0); Monocyte# 0.58 X10^3/uL; Monocyte% 10.4 % (0-10); NRBC Flagged by Analyzer 0 % (0-5); Neutrophil % 71.4 % (47-70); Platelet Count 169 K/mm3 (150-450); RBC Distribution Width CV 16.6 % (11.6-14.6); RBC Distribution Width SD 54.4 fl (35.1-43.9); Red Blood Count 2.87 M/mm3 (4.2-5.4); White Blood Count 5.6 K/mm3 (4.4-11.0)
[2020-08-22 07:50] LABS: Anion Gap 4 (5-15); BUN 43 mg/dL (7-18); BUN/Creat Ratio 26.5 RATIO (10-20); Calcium,Total 8.2 mg/dL (8.5-10.1); Chloride 106 mmol/L (98-107); Creatinine, Serum 1.62 mg/dL (0.55-1.02); EST Glomerular Filtration Rate 33 mL/min (>60); Est Glom Filt Rate - Afr Amer 39 mL/min (>60); Estimated Creatinine Clearance 28.41 ml/min; Glucose 139 mg/dL (74-106); Potassium 4.2 mmol/L (3.5-5.1); Sodium Level 138 mmol/L (136-145)
[2020-08-22] MEDS: Multivitamins,Ther W-Minerals Tablet 1 TABLET PO (08:59)
[2020-08-22] MEDS: Glimepiride 2 MG Tablet PO (08:59)
[2020-08-22] MEDS: Allopurinol 100 MG Tablet 200 MG PO (08:59)
[2020-08-22 10:50] LABS: Bedside Glucose 172 mg/dL (70-110)
[2020-08-22] MEDS: Tuberculin,Purif.prot.deriv. 50 TU/ML Vial 5 ML ID (11:33)
[2020-08-22 14:17] VITALS: BP 128/66; PULSE 70; RESP 16; TEMP 36.7; O2SAT 97
[2020-08-22 16:45] LABS: Bedside Glucose 115 mg/dL (70-110)
[2020-08-22 21:56] LABS: Bedside Glucose 146 mg/dL (70-110)
[2020-08-22] MEDS: Rivaroxaban 15 MG Tablet PO (22:22)
[2020-08-22] MEDS: Pioglitazone Hydrochloride 30 MG Tablet PO (22:23)
[2020-08-23 06:17] LABS: Hematocrit 25.7 % (37-47); Hemoglobin 7.9 g/dL (12.0-15.0)
[2020-08-23 06:21] LABS: Bedside Glucose 106 mg/dL (70-110)
[2020-08-23] MEDS: Pantoprazole Sodium 40 MG Tablet PO (07:18)
[2020-08-23] MEDS: Carvedilol 25 MG Tablet 50 MG PO ×2 (07:18→17:23)
[2020-08-23] MEDS: Amiodarone 200 MG Tablet PO (07:19)
[2020-08-23] MEDS: Nystatin Powder 15gm Bottle 1 APPLIC TOPICAL ×2 (07:19→23:12)
[2020-08-23] MEDS: Gabapentin 300 MG Capsule PO ×4 (07:19→23:12)
[2020-08-23 07:20] VITALS: BP 113/77; PULSE 68; RESP 16; TEMP 37.3
[2020-08-23] MEDS: Senna/Docusate Sodium 1 Tablet PO ×2 (07:20→17:23)
[2020-08-23] MEDS: Levothyroxine 137 MCG Tablet PO (07:20)
[2020-08-23] MEDS: Glimepiride 2 MG Tablet PO (09:07)
[2020-08-23] MEDS: Multivitamins,Ther W-Minerals Tablet 1 TABLET PO (09:07)
[2020-08-23] MEDS: Allopurinol 100 MG Tablet 200 MG PO (09:07)
[2020-08-23] MEDS: DULAGLUTIDE 1.5 MG/0.5 ML PEN.INJCTR SC (09:10)
[2020-08-23 10:00] VITALS: PULSE 71; RESP 18; O2SAT 96
[2020-08-23 11:06] LABS: Bedside Glucose 186 mg/dL (70-110)
[2020-08-23 15:32] VITALS: BP 149/61; PULSE 75; RESP 18; TEMP 37.2; O2SAT 96
[2020-08-23 16:31] LABS: Bedside Glucose 124 mg/dL (70-110)
[2020-08-23 21:36] LABS: Bedside Glucose 96 mg/dL (70-110)
[2020-08-23] MEDS: Acetaminophen 500 MG Tablet 1000 MG PO (23:11)
[2020-08-23] MEDS: Rivaroxaban 15 MG Tablet PO (23:12)
[2020-08-23] MEDS: Pioglitazone Hydrochloride 30 MG Tablet PO (23:12)
--- NOTE | 2020-08-23 23:39 | NURSING ---
CPAP from home is use. This nurse assisted w/ application of masks after s meds administered.
[2020-08-24 04:44] VITALS: BP 122/52; PULSE 74; RESP 16; TEMP 37.3
[2020-08-24] MEDS: Amiodarone 200 MG Tablet PO (04:46)
[2020-08-24] MEDS: Gabapentin 300 MG Capsule PO ×4 (04:46→21:58)
[2020-08-24] MEDS: Carvedilol 25 MG Tablet 50 MG PO ×2 (04:47→17:38)
[2020-08-24] MEDS: Levothyroxine 137 MCG Tablet PO (04:47)
[2020-08-24] MEDS: Pantoprazole Sodium 40 MG Tablet PO (04:47)
[2020-08-24] MEDS: Senna/Docusate Sodium 1 Tablet PO ×2 (04:48→17:38)
[2020-08-24] MEDS: Nystatin Powder 15gm Bottle 1 APPLIC TOPICAL ×2 (04:48→21:58)
[2020-08-24 06:35] LABS: Bedside Glucose 97 mg/dL (70-110)
[2020-08-24] MEDS: Glimepiride 2 MG Tablet PO (08:39)
[2020-08-24] MEDS: Multivitamins,Ther W-Minerals Tablet 1 TABLET PO (08:39)
[2020-08-24] MEDS: Allopurinol 100 MG Tablet 200 MG PO (08:39)
[2020-08-24] MEDS: Acetaminophen 500 MG Tablet 1000 MG PO (08:42)
--- NOTE | 2020-08-24 10:27 | PCM.PN.RX ---
<Georgette Lennon - Last Filed: 08/24/20 10:27> Progress Note - Pharmacy Subjective: TCU Admission Objective: Allergies iodine Allergy (Verified 07/31/20 11:47) Hives simvastatin Allergy (Verified 07/31/20 11:47) Other Ckuxpsp-Zdp-Erl Reductase Inhibitor Adverse Reaction (Severe, Verified 07/31/20 11:47) mylagias Current Medications Generic Name Dose Route Start Last Admin Trade Name Freq PRN Reason Stop Dose Admin Acetaminophen 1,000 mg 08/21/20 16:19 08/24/20 08:42 Acetaminophen 500 Mg Tablet PO 1,000 mg Q6H PRN Administration Pain Score 1-10 Allopurinol 200 mg 08/22/20 08:00 08/24/20 08:39 Allopurinol 100 Mg Tablet PO 200 mg DAILYCM [facility] Administration Amiodarone HCl 200 mg 08/22/20 06:00 08/24/20 04:46 Amiodarone 200 Mg Tablet PO 200 mg DAILY ARLETTE Administration Bisacodyl 10 mg 08/21/20 16:21 Bisacodyl 5 Mg Tablet PO DAILY PRN Constipation Carvedilol 50 mg 08/21/20 18:00 08/24/20 04:47 Carvedilol 25 Mg Tablet PO 50 mg BID ARLETTE Administration Colestipol HCl 1 gm 08/21/20 17:00 08/24/20 08:39 Colestipol Hcl 1 Gm Tablet PO 1 gm BIDCM [facility] Administration Ergocalciferol 50,000 unit 08/25/20 06:00 Ergocalciferol 50,000 Unit Capsule PO Tu@0600 ARLETTE Gabapentin 300 mg 08/21/20 17:00 08/24/20 04:46 Gabapentin 300 Mg Capsule PO 300 mg 4X/DAY ARLETTE Administration Glimepiride 2 mg 08/22/20 08:00 08/24/20 08:39 [facility] Levothyroxine Sodium 137 mcg 08/22/20 06:00 08/24/20 04:47 Levothyroxine 137 Mcg Tablet PO 137 mcg DAILY@0600 [facility] Administration Magnesium Hydroxide 30 ml 08/21/20 16:20 Magnesium Hydroxide 30 Ml Udc PO DAILY PRN Constipation Multivitamins/Minerals 1 tablet 08/22/20 08:00 08/24/20 08:39 Multivitamins,Ther W-Minerals Tablet PO 1 tablet DAILY@0800 ARLETTE Administration Nystatin 1 applic 08/21/20 22:00 08/24/20 04:48 Nystatin Powder 15gm Bottle TOPICAL 1 applic BID@0600,2200 [facility] Administration Protocol Pantoprazole Sodium 40 mg 08/22/20 06:00 08/24/20 04:47 Pantoprazole Sodium 40 Mg Tablet PO 40 mg DAILY ARLETTE Administration Pioglitazone HCl 30 mg 08/21/20 22:00 08/23/20 23:12 Pioglitazone Hydrochloride 30 Mg Tablet PO 30 mg QHS ARLETTE Administration Polyethylene Glycol 17 gm 08/22/20 06:00 08/24/20 04:48 Polyethylene Glycol 3350 17 Gm Packet PO Not Given DAILY ARLETTE Rivaroxaban 15 mg 08/21/20 22:00 08/23/20 23:12 Rivaroxaban 15 Mg Tablet PO 15 mg QHS ARLETTE Administration Senna/Docusate Sodium 1 tablet 08/21/20 18:00 08/24/20 04:48 Senna/Docusate Sodium 1 Tablet PO 1 tablet BID ARLETTE Administration Triamcinolone Acetonide 1 applic 08/21/20 16:09 Triamcinolone 0.5% Cream TOPICAL DAILY PRN ITCHING Tuberculin PPD 5 tu 08/29/20 10:00 Tuberculin,Purif.Prot.Deriv. 50 Tu/Ml Vial ID 08/29/20 10:01 X1 ONE Problem List (Last Reviewed 05/07/19 @ 15:11 by Trina Fine) Debility (Acute) Fall (Acute) Anemia (Chronic) Hemorrhoids (Acute) Diabetes mellitus (Chronic) Atrial fibrillation (Chronic) Gout (Chronic) Diabetic neuropathy (Chronic) Gastroesophageal reflux disease (Chronic) Vitamin D deficiency (Chronic) Hypothyroidism (Chronic) Hyperlipidemia (Chronic) Vital Signs Temp Pulse Resp BP Pulse Ox 99.2 F H 74 16 122/52 H 96 08/24/20 04:44 08/24/20 04:44 08/24/20 04:44 08/24/20 04:44 08/23/20 15:32 Oxygen Delivery Method Room Air Weight: 113.4 kg Body Mass Index (BMI) 38.0 Sodium 138 mmol/L (136-145) 08/22/20 07:19 Potassium 4.2 mmol/L (3.5-5.1) 03/20/21 07:19 Chloride 106 mmol/L (98-107) 08/22/20 07:19 Carbon Dioxide 28.0 mmol/L (21.0-32.0) 08/22/20 07:19 Anion Gap 4 (5-15) L 08/22/20 07:19 BUN 43 mg/dL (7-18) H 08/22/20 07:19 Creatinine 1.62 mg/dL (0.55-1.02) H 08/22/20 07:19 Est GFR (MDRD) Af Amer 39 mL/min (>60) L 08/22/20 07:19 Est GFR (MDRD) Non-Af 33 mL/min (>60) L 08/22/20 07:19 BUN/Creatinine Ratio 26.5 RATIO (10-20) H 08/22/20 07:19 Glucose 139 mg/dL (74-106) H 08/22/20 07:19 Assessment/Plan: 1. Pain: acetaminophen 1000mg PO Q6H PRN pain 1-10. Please continue to monitor for increased pain and PRN usage. 2. Atrial fibrillation: carvedilol 50mg PO BID, amiodarone 200mg PO daily and rivaroxaban 15mg PO QHS. Please continue to monitor BP (last 122/52), HR (last 74), potassium (last 4.2mmol/L), renal function, S/S of bleeding, and hemoglobin (last 7.9g/dL). 3. Gout: allopurinol 200mg PO daily. Please continue to monitor for S/S of gout. *4. Hyperlipidemia: colestipol 1gm PO BIDCM. Please consider ordering a lipid panel. Last lipid panel from 06/2013. Thanks. *5. Diabetic neuropathy: gabapentin 300mg PO 4x/day. Based on patient's CrCl (using adjusted body weight), max dose for gabapentin is 400-1400mg/day in 2 divided doses. Please consider changing dose to 300mg-600mg PO BID if clinically appropriate. Thanks. *6. Diabetes mellitus II: glimepiride 2mg PO DAILYCM, pioglitazone 30mg PO QHS, and dulaglutide 1.5mg SC weekly. Please continue to monitor for S/S of hypo/hyperglycemia, renal function, hemoglobin A1c (last 7.4% from 01/2018), POC glucose (last 97 mg/dL), and abdominal pain. Please consider ordering a hemoglobin A1c if clinically appropriate. Thanks. *7. Hypothyroidism: levothyroxine 137mcg PO daily. Please continue to monitor for S/S of hypothyroidism. Last TSH from 06/2013. Please consider ordering one now if clinically appropriate. Thanks. 8. GERD: pantoprazole 40mg PO daily. Please continue to monitor for GERD and diarrhea. 9. Itching: triamcinolone 0.5% cream topically daily PRN itching. Please continue to monitor for itching and PRN usage. *10. Nutrition/vitamin D deficiency: multivitamin with minerals 1T PO daily and ergocalciferol 50,000units PO weekly. Please consider ordering a vitamin D level. Patient does not have one in the chart. Thanks. Psychotropic Medications: None Unnecessary Medications: None *Bowel Regimen: Miralax 17gm PO daily, senna/docusate 1T PO BID, MOM 30mL PO daily PRN constipation and bisacodyl 10mg PO daily PRN constipation. Patient has refused 3/3 doses of Miralax. Please consider changing from scheduled to PRN constipation. Thanks. Date of Note:: 08/24/20 - Provider Comments Provider responsibility: Provider responsible to enter orders to implement recommendations <Adin Tsai Chi - Last Filed: 08/24/20 12:41> Progress Note - Pharmacy Subjective: [] Objective: Allergies iodine Allergy (Verified 07/31/20 11:47) Hives simvastatin Allergy (Verified 07/31/20 11:47) Other Nbtyjkj-Gft-Vwl Reductase Inhibitor Adverse Reaction (Severe, Verified 07/31/20 11:47) mylagias Current Medications Generic Name Dose Route Start Last Admin Trade Name Freq PRN Reason Stop Dose Admin Acetaminophen 1,000 mg 08/21/20 16:19 08/24/20 08:42 Acetaminophen 500 Mg Tablet PO 1,000 mg Q6H PRN Administration Pain Score 1-10 Allopurinol 200 mg 08/22/20 08:00 08/24/20 08:39 Allopurinol 100 Mg Tablet PO 200 mg DAILYCM ARLETTE Administration Amiodarone HCl 200 mg 08/22/20 06:00 08/24/20 04:46 Amiodarone 200 Mg Tablet PO 200 mg DAILY ARLETTE Administration Bisacodyl 10 mg 08/21/20 16:21 Bisacodyl 5 Mg Tablet PO DAILY PRN Constipation Carvedilol 50 mg 08/21/20 18:00 08/24/20 04:47 Carvedilol 25 Mg Tablet PO 50 mg BID [facility] Administration Colestipol HCl 1 gm 08/21/20 17:00 08/24/20 08:39 Colestipol Hcl 1 Gm Tablet PO 1 gm BIDCM ARLETTE Administration Ergocalciferol 50,000 unit 08/25/20 06:00 Ergocalciferol 50,000 Unit Capsule PO Tu@0600 [facility] Gabapentin 300 mg 08/21/20 17:00 08/24/20 11:51 Gabapentin 300 Mg Capsule PO 300 mg 4X/DAY ARLETTE Administration Glimepiride 2 mg 08/22/20 08:00 08/24/20 08:39 Gl[facility] Mg [facility] Administration Levothyroxine Sodium 137 mcg 08/22/20 06:00 08/24/20 04:47 Levothyroxine 137 Mcg Tablet PO 137 mcg DAILY@0600 [facility] Administration Magnesium Hydroxide 30 ml 08/21/20 16:20 Magnesium Hydroxide 30 Ml Udc PO DAILY PRN Constipation Multivitamins/Minerals 1 tablet 08/22/20 08:00 08/24/20 08:39 Multivitamins,Ther W-Minerals Tablet PO 1 tablet DAILY@0800 [facility] Administration Nystatin 1 applic 08/21/20 22:00 08/24/20 04:48 Nystatin Powder 15gm Bottle TOPICAL 1 applic BID@0600,2200 [facility] Administration Protocol Pantoprazole Sodium 40 mg 08/22/20 06:00 08/24/20 04:47 Pantoprazole Sodium 40 Mg Tablet PO 40 mg DAILY ARLETTE Administration Pioglitazone HCl 30 mg 08/21/20 22:00 08/23/20 23:12 Pioglitazone Hydrochloride 30 Mg Tablet PO 30 mg QHS [facility] Administration Polyethylene Glycol 17 gm 08/22/20 06:00 08/24/20 04:48 Polyethylene Glycol 3350 17 Gm Packet PO Not Given DAILY [facility] Rivaroxaban 15 mg 08/21/20 22:00 08/23/20 23:12 Rivaroxaban 15 Mg Tablet PO 15 mg QHS ARLETTE Administration Senna/Docusate Sodium 1 tablet 08/21/20 18:00 08/24/20 04:48 Senna/Docusate Sodium 1 Tablet PO 1 tablet BID ARLETTE Administration Triamcinolone Acetonide 1 applic 08/21/20 16:09 Triamcinolone 0.5% Cream TOPICAL DAILY PRN ITCHING Tuberculin PPD 5 tu 08/29/20 10:00 Tuberculin,Purif.Prot.Deriv. 50 Tu/Ml Vial ID 08/29/20 10:01 X1 ONE Problem List (Last Reviewed 05/07/19 @ 15:11 by Trina Fine) Debility (Acute) Fall (Acute) Anemia (Chronic) Hemorrhoids (Acute) Diabetes mellitus (Chronic) Atrial fibrillation (Chronic) Gout (Chronic) Diabetic neuropathy (Chronic) Gastroesophageal reflux disease (Chronic) Vitamin D deficiency (Chronic) Hypothyroidism (Chronic) Hyperlipidemia (Chronic) Vital Signs Temp Pulse Resp BP Pulse Ox 99.2 F H 74 16 122/52 H 96 08/24/20 04:44 08/24/20 04:44 08/24/20 04:44 08/24/20 04:44 08/23/20 15:32 Oxygen Delivery Method Room Air Weight: 113.4 kg Body Mass Index (BMI) 38.0 Sodium 138 mmol/L (136-145) 08/22/20 07:19 Potassium 4.2 mmol/L (3.5-5.1) 08/22/20 07:19 Chloride 106 mmol/L (98-107) 08/22/20 07:19 Carbon Dioxide 28.0 mmol/L (21.0-32.0) 08/22/20 07:19 Anion Gap 4 (5-15) L 08/22/20 07:19 BUN 43 mg/dL (7-18) H 08/22/20 07:19 Creatinine 1.62 mg/dL (0.55-1.02) H 08/22/20 07:19 Est GFR (MDRD) Af Amer 39 mL/min (>60) L 08/22/20 07:19 Est GFR (MDRD) Non-Af 33 mL/min (>60) L 08/22/20 07:19 BUN/Creatinine Ratio 26.5 RATIO (10-20) H 08/22/20 07:19 Glucose 139 mg/dL (74-106) H 08/22/20 07:19 Assessment/Plan: Psychotropic Medications: Unnecessary Medications: Bowel Regimen: - Provider Comments Provider responsibility: Provider responsible to enter orders to implement recommendations Provider Comments to Recommendations by Pharmacy: Agree
--- NOTE | 2020-08-24 10:35 | NURSING ---
dr patel updated on pt having scant amt rectal bleeding, pt on xarelto, hgb 7.9. continue plan of care at this time.
[2020-08-24 10:56] LABS: Bedside Glucose 168 mg/dL (70-110)
[2020-08-24 14:04] VITALS: BP 117/56; PULSE 70; RESP 18; TEMP 36.6; O2SAT 95
--- NOTE | 2020-08-24 16:35 | CHAPLAIN ---
Type of Pastoral Visit _x__ Initial Visit ___ Follow-up Visit ___ On-call Visit ___ General Patient Visit ___ Spiritual Assessment ___ Family Conference ___ Bereavement ___ Rapid Response ___ Code Blue ___ Other (describe below) Pastoral Care Referral From _x__ Patient ___ Family ___ Nurse ___ Physician ___ Abe Teacher ___ Panel Fitter ___ Other (describe below) Sacrament/Intervention _x__ Active listening ___ Anointing ___ Temple ___ Bereavement ___ Communion ___ Brigida exploration ___ _x__ Life review _x__ Prayer ___ Reconciliation ___ Sacrament of Sick ___ Supportive presence ___ Wedding ___ Other (describe below) Pastoral Comments patient is an acquaintance of this public health dentist through family members; pt is pleasant and displays good motivation for therapy and recovery; pt speaks of last year and now has hope of being more active and in public; pt welcomes visit and prayers; no other needs noted at this time
[2020-08-24 16:36] LABS: Bedside Glucose 130 mg/dL (70-110)
[2020-08-24 21:16] LABS: Bedside Glucose 146 mg/dL (70-110)
[2020-08-24] MEDS: Rivaroxaban 15 MG Tablet PO (21:58)
[2020-08-24] MEDS: Pioglitazone Hydrochloride 30 MG Tablet PO (21:58)
[2020-08-24 22:00] VITALS: RESP 18
[2020-08-25 05:34] LABS: Hematocrit 26.2 % (37-47)
[2020-08-25 05:57] VITALS: BP 124/44; PULSE 76; RESP 18; TEMP 36.9; O2SAT 95
[2020-08-25] MEDS: Carvedilol 25 MG Tablet 50 MG PO ×2 (06:02→16:36)
[2020-08-25] MEDS: Amiodarone 200 MG Tablet PO (06:02)
[2020-08-25] MEDS: Pantoprazole Sodium 40 MG Tablet PO (06:02)
[2020-08-25] MEDS: Nystatin Powder 15gm Bottle 1 APPLIC TOPICAL ×2 (06:03→21:58)
[2020-08-25] MEDS: Gabapentin 300 MG Capsule PO ×4 (06:03→21:57)
[2020-08-25] MEDS: Levothyroxine 137 MCG Tablet PO (06:03)
[2020-08-25] MEDS: Senna/Docusate Sodium 1 Tablet PO ×2 (06:03→16:36)
[2020-08-25 06:16] LABS: Bedside Glucose 99 mg/dL (70-110)
[2020-08-25] MEDS: Allopurinol 100 MG Tablet 200 MG PO (08:14)
[2020-08-25] MEDS: Multivitamins,Ther W-Minerals Tablet 1 TABLET PO (08:15)
[2020-08-25] MEDS: Glimepiride 2 MG Tablet PO (08:15)
[2020-08-25] MEDS: Acetaminophen 500 MG Tablet 1000 MG PO (10:33)
[2020-08-25 10:53] VITALS: TEMP 37.4
[2020-08-25 11:11] LABS: Bedside Glucose 206 mg/dL (70-110)
--- NOTE | 2020-08-25 11:56 | NURSING ---
R' HAS DEVELOPED NEW COUGH IN LAST TWO DAYS. PRODUCTIVE-YELLOW SPUTUM. FAINT CRACKLES RLL. DENIES ANY OTHER SYMPTOMS OTHER THAN HOARSENESS. I.S. GIVEN TO USE. TEMP 99.4. Marlene GÓMEZ NOTIFIED DR PAZ- CXR ORDERED
[2020-08-25 13:40] VITALS: BP 105/44; PULSE 71; RESP 16; TEMP 36.3; O2SAT 96
--- NOTE | 2020-08-25 14:40 | RAD_ITS ---
STUDY: X-RAY CHEST REASON FOR EXAM: Female, 79 years old. Cough, low grade fever. TECHNIQUE: PA and lateral views of the chest. COMPARISON: Comparison is made with prior study 08/19/2020. FINDINGS: The lungs are clear and expanded. There is no demonstrated pleural abnormality. There is borderline cardiomegaly. Normal mediastinum and radames. Normal visualized pulmonary arteries. There is atherosclerotic tortuosity of the aortic arch and descending thoracic aorta. There are degenerative changes of the visualized thoracic spine. Normal visualized ribs, clavicles, and shoulders. There is no demonstrated abnormality of the visualized soft tissue structures of the upper abdomen. RAD/Chest PA and Lateral IMPRESSION: No acute abnormality is seen. Borderline cardiomegaly. Electronically Signed: Jacob Brown MD at 14:58 EDT , Service support ,
[2020-08-25 16:26] LABS: Bedside Glucose 125 mg/dL (70-110)
[2020-08-25 21:15] LABS: Bedside Glucose 130 mg/dL (70-110)
[2020-08-25] MEDS: Rivaroxaban 15 MG Tablet PO (21:57)
[2020-08-25] MEDS: Pioglitazone Hydrochloride 30 MG Tablet PO (21:58)
[2020-08-26] MEDS: Acetaminophen 500 MG Tablet 1000 MG PO ×2 (01:52→22:09)
[2020-08-26 05:00] VITALS: BP 115/57; PULSE 69; RESP 16; TEMP 36.7; O2SAT 96
[2020-08-26] MEDS: Levothyroxine 137 MCG Tablet PO (05:10)
[2020-08-26] MEDS: Senna/Docusate Sodium 1 Tablet PO ×2 (05:10→16:30)
[2020-08-26] MEDS: Amiodarone 200 MG Tablet PO (05:10)
[2020-08-26] MEDS: Pantoprazole Sodium 40 MG Tablet PO (05:11)
[2020-08-26] MEDS: Gabapentin 300 MG Capsule PO ×4 (05:11→22:06)
[2020-08-26] MEDS: Carvedilol 25 MG Tablet 50 MG PO ×2 (05:11→16:29)
[2020-08-26] MEDS: Nystatin Powder 15gm Bottle 1 APPLIC TOPICAL ×2 (05:12→22:10)
[2020-08-26 06:20] LABS: Bedside Glucose 98 mg/dL (70-110)
[2020-08-26] MEDS: Allopurinol 100 MG Tablet 200 MG PO (08:22)
[2020-08-26] MEDS: Glimepiride 2 MG Tablet PO (08:22)
[2020-08-26] MEDS: Iron Polysaccharide Complex 150 MG CAPSULE PO (08:22)
[2020-08-26] MEDS: Multivitamins,Ther W-Minerals Tablet 1 TABLET PO (08:22)
--- NOTE | 2020-08-26 09:40 | CASEMGMT ---
Addendum entered by Reina Simms 08/26/20 13:09: Telephone call from Jany [facility] is able to accept with start of care being 08/31/2020 Original Note: Social Work Plan of care meeting held. Patient present. Patient sister, Claudette present via speaker phone. Continued stay has been denied by insurance with last cover day being 08/28/2020 with discharge or patient financial responsibility to begin on 08/29/2020. Patient voiced understanding and plans to discharge to home on 08/29/2020. Patient lives alone with family and friends for support. Patient reports to have a front wheeled walker already set up in the home. Therapy is recommending for patient to have physical and occupational therapy as well as a home health aide in the home. Patient is agreeable to home health services and requesting to have home health services set up through [facility] ([facility]) [facility]. Patient reports to have transportation to home and plans to leave at 10am on 08/29/2020. Patient denies any other discharge needs/concerns. Telephone call to [facility] Samreen LI. Referral made for physical and occupational therapy as well as a home health aide. Order entered. Samreen to review with clinical team and get back to this social services coordinator. Proposed discharge date: 08/29/2020 to home alone with home health services. Lam MEDEL, CHRISTI
[2020-08-26 11:01] LABS: Bedside Glucose 171 mg/dL (70-110)
[2020-08-26 13:54] VITALS: BP 120/54; PULSE 63; RESP 18; TEMP 36.8; O2SAT 93
[2020-08-26 16:21] LABS: Bedside Glucose 179 mg/dL (70-110)
--- NOTE | 2020-08-26 20:08 | DCINST_ITS ---
- Discharge Diagnoses Current Active Problems: Current Active and Chronic Problems (Last Reviewed 05/07/19 @ 15:11 by Trina Fine) Debility (Acute) Fall (Acute) Anemia (Chronic) Hemorrhoids (Acute) Diabetes mellitus (Chronic) Atrial fibrillation (Chronic) Gout (Chronic) Diabetic neuropathy (Chronic) Gastroesophageal reflux disease (Chronic) Vitamin D deficiency (Chronic) Hypothyroidism (Chronic) Hyperlipidemia (Chronic) You will use the following diet at home:: No restrictions, Regular Your food should be the consistency of: Regular Your liquids should be the consistency of: Regular/Thin Discharge Activity: Return to Normal Activity, May Shower, Use Walker Weight Bearing Status: Weight bearing as tolerated Call your doctor if you observe: Fever of 101 or Higher, Inability to urinate, Inability to have a bowel movement, Shortness of breath, Chest pain, Uncontrolled pain Allergies/Adverse Reactions: Allergies iodine Allergy (Verified 07/31/20 11:47) Hives simvastatin Allergy (Verified 07/31/20 11:47) Other Djotmoj-Szo-Xap Reductase Inhibitor Adverse Reaction (Severe, Verified 07/31/20 11:47) mylagias Medications to take at Discharge Allopurinol [Zyloprim] 200 mg PO DAILYCM 07/04/13 Cyanocobalamin (Vitamin B-12) [Vitamin B-12] 1,000 mcg IM QMONTH 07/04/13 Gabapentin [Neurontin] 300 mg PO 4X/DAY 07/04/13 Glimepiride [Amaryl] 2 mg PO DAILY 07/04/13 Lansoprazole [Prevacid] 30 mg PO DAILY 07/04/13 Colestipol Tablet [Colestid Tablet] 1 gm PO BIDCM 02/05/15 Multivitamin with Iron [One Daily Plus Iron] 1 ea PO DAILY 02/05/15 Carvedilol [Coreg (Beta Aminah)] 50 mg PO BID 01/05/18 Rivaroxaban [Xarelto] 15 mg PO QHS 01/05/18 pioglitazone 15 mg tablet 30 mg PO QHS 03/29/19 cholecalciferol (vitamin D3) 1,250 mcg (50,000 unit) capsule 50,000 unit PO TU 05/07/19 clotrimazole 1 % vaginal cream 1 appful VAGINAL BID PRN g 05/07/19 levothyroxine 125 mcg capsule 137 mcg PO DAILY cap 11/19/19 Dulaglutide [Trulicity] 1.5 mg SQ PONCE 07/24/20 Triamcinolone 0.1% Cream [Kenalog] 1 applic TOPICAL DAILY PRN 08/19/20 Amiodarone HCl 200 mg PO DAILY 08/21/20 Acetaminophen [Tylenol] 1,000 mg PO Q6H PRN tablet 08/26/20 Iron Polysaccharide Complex [Ferrex 150] 150 mg PO DAILY #30 capsule 08/26/20 Nystatin Powder [Mycostatin Powder] 1 applic TOPICAL BID@0600,2200 bottle 08/26/20 The following prescriptions were given: Iron Polysaccharide Complex [Ferrex 150] 150 mg PO DAILY #30 capsule Transmission Status: Pending to [facility] Primary Care Physician: Stefan Gordon MD [Primary Care Provider] - Please follow up with your Primary Care Physician in: 1 week. Test Results: Test results from this visit will be discussed in further detail at your follow- up appointment, if applicable. Please Follow Up With: Stefan Gordon MD When: f/u 3-5 days Proposed Discharge Date: 08/29/20
--- NOTE | 2020-08-26 20:10 | DS.PCM_ITS ---
Discharge Date and Diagnosis - Problem List Patient Problems: Active and Suspected Problems (Last Reviewed 05/07/19 @ 15:11 by Trina Fine) Debility (Acute) Fall (Acute) Hemorrhoids (Acute) Date of Admission: 08/21/20 Date of Discharge: 08/29/20 - Primary Discharge Diagnosis Acute Problems: Active Problems (Last Reviewed 05/07/19 @ 15:11 by Trina Fine) Debility (Acute) Fall (Acute) Hemorrhoids (Acute) - Secondary Discharge Diagnosis Chronic Problems: Chronic Problems (Last Reviewed 05/07/19 @ 15:11 by Trina Fine) Anemia (Chronic) Diabetes mellitus (Chronic) Atrial fibrillation (Chronic) Gout (Chronic) Diabetic neuropathy (Chronic) Gastroesophageal reflux disease (Chronic) Vitamin D deficiency (Chronic) Hypothyroidism (Chronic) retirement current use of amiodarone (Chronic) Nonischemic cardiomyopathy (Chronic) Paroxysmal atrial fibrillation (Chronic) Paroxysmal atrial flutter (Chronic) Hyperlipidemia (Chronic) Type 2 diabetes mellitus (Chronic) Hospital Course and Treatment Imaging Results: 08/21/20 Dinner Diet: Consistent Carb - Calorie Controlled Food consistency:: Regular Liquid Consistency:: Regular/Thin Dietary Modifications:: Cardiac / Heart Healthy Is pt able to select menu?: Yes How many daily calories?: 1800 calorie Clinical Impression(s) from Imaging Studies Chest X-Ray 08/25/20 14:40 IMPRESSION: No acute abnormality is seen. Borderline cardiomegaly. Electronically Signed: Jacob Brown MD at 14:58 EDT , Service support , Labs (Last 48 Hours) 08/24/20 08/25/20 08/25/20 21:01 05:20 06:11 Hgb 8.0 L Hct 26.2 L POC Glucose 146 H 99 08/25/20 08/25/20 08/25/20 10:50 16:19 21:04 Hgb Hct POC Glucose 206 H 125 H 130 H 08/26/20 08/26/20 08/26/20 06:04 10:55 15:59 Hgb Hct POC Glucose 98 171 H 179 H Operations: None Procedures: None Summary of Care Provided: The patient is a 79 year old Female with below past medical history hospitalized for anemia, hemorrhoidal bleeding, admitted to TCU with debility, here for rehabilitation, strengthening, prior to discharge home alone. 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 Patient Problems: Active and Suspected Problems (Last Reviewed 05/07/19 @ 15:11 by Trina Fine) Debility (Acute) Fall (Acute) Hemorrhoids (Acute) - Physical Exam Vitals/I&O's: Vital Signs Temp Pulse Resp BP Pulse Ox 98.3 F 63 18 120/54 L 93 08/26/20 13:54 08/26/20 13:54 08/26/20 13:54 08/26/20 13:54 08/26/20 13:54 Oxygen Delivery Method Room Air Weight: 114.078 kg Body Mass Index (BMI) 38.0 Intake and Output for Last 24 Hours 08/24/20 08/25/20 08/26/20 23:59 23:59 23:59 Intake Total 600 / 600 600 / 600 720 / 720 Balance 600 / 600 600 / 600 720 / 720 Laboratory Results 08/25/20 21:04: POC Glucose 130 H 08/26/20 06:04: POC Glucose 98 08/26/20 10:55: POC Glucose 171 H 08/26/20 15:59: POC Glucose 179 H Current Medications Acetaminophen (Acetaminophen 500 Mg Tablet) 1,000 mg PO Q6H PRN PRN Reason: Pain Score 1-10 Last Admin: 08/26/20 01:52 Dose: 1,000 mg Documented by: [facility] ([facility] 100 Mg [facility]t) [facility] Admin: 08/26/20 08:22 Dose: 200 mg Documented by: Amiodarone HCl (Amiodarone 200 Mg Tablet) 200 mg PO DAILY [facility] Last Admin: 08/26/20 05:10 Dose: 200 mg Documented by: Bisacodyl (Bisacodyl 5 Mg Tablet) 10 mg PO DAILY PRN PRN Reason: Constipation Carvedilol (Carvedilol 25 Mg Tablet) 50 mg PO BID [facility] Last Admin: 08/26/20 16:29 Dose: 50 mg Documented by: Colestipol HCl (Colestipol Hcl 1 Gm Tablet) [facility] Last Admin: 08/26/20 16:29 Dose: 1 gm Documented by: Ergocalciferol (Ergocalciferol 50,000 Unit Capsule) 50,000 unit PO Tu@0600 [facility] Last Admin: 08/25/20 06:02 Dose: 50,000 unit Documented by: Gabapentin (Gabapentin 300 Mg Capsule) 300 mg PO 4X/DAY [facility] Last Admin: 08/26/20 16:29 Dose: 300 mg Documented by: Glimepiride (Glimepiride 2 Mg Tablet) 2 mg PO DAILYCM [facility] Last Admin: 08/26/20 08:22 Dose: 2 mg Documented by: Guaifenesin (Guaifenesin Dm 10 Ml Udc) 10 ml PO Q6H PRN PRN PRN Reason: COUGH Levothyroxine Sodium (Levothyroxine 137 Mcg Tablet) 137 mcg PO DAILY@0600 [facility] Last Admin: 08/26/20 05:10 Dose: 137 mcg Documented by: Magnesium Hydroxide (Magnesium Hydroxide 30 Ml Udc) 30 ml PO DAILY PRN PRN Reason: Constipation Multivitamins/Minerals (Multivitamins,Ther W-Minerals Tablet) 1 tablet PO DAILY@0800 [facility] Last Admin: 08/26/20 08:22 Dose: 1 tablet Documented by: Nystatin (Nystatin Powder 15gm Bottle) 1 applic TOPICAL BID@0600,2200 [facility]; Protocol Last Admin: 08/26/20 05:12 Dose: 1 applic Documented by: Pantoprazole Sodium (Pantoprazole Sodium 40 Mg Tablet) 40 mg PO DAILY [facility] Last Admin: 08/26/20 05:11 Dose: 40 mg Documented by: Pioglitazone HCl (Pioglitazone Hydrochloride 30 Mg Tablet) 30 mg PO QHS [facility] Last Admin: 08/25/20 21:58 Dose: 30 mg Documented by: Polyethylene Glycol (Polyethylene Glycol 3350 17 Gm Packet) 17 gm PO DAILY [facility] Last Admin: 08/26/20 05:12 Dose: Not Given Documented by: Polysaccharide Iron Complex (Iron Polysaccharide Complex 150 Mg Capsule) 150 mg PO DAILY [facility] Last Admin: 08/26/20 08:22 Dose: 150 mg Documented by: Rivaroxaban (Rivaroxaban 15 Mg Tablet) 15 mg PO QHS [facility] Last Admin: 08/25/20 21:57 Dose: 15 mg Documented by: Senna/Docusate Sodium (Senna/Docusate Sodium 1 Tablet) 1 tablet PO BID [facility] Last Admin: 08/26/20 16:30 Dose: 1 tablet Documented by: Throat Lozenges (Benzocaine/Menthol 1 Lozenge) 1 lozenge MUCOUS MEM Q2H PRN PRN PRN Reason: SORE THROAT Triamcinolone Acetonide (Triamcinolone 0.5% Cream) 1 applic TOPICAL DAILY PRN PRN Reason: ITCHING Tuberculin PPD (Tuberculin,Purif.Prot.Deriv. 50 Tu/Ml Vial) 5 tu ID [id number] ONE Stop: 08/29/20 10:01 Discharge Diet: No Restrictions Discharge Activity: Return to Normal Activity, May Shower, Use Walker Weight Bearing Status: Weight bearing as tolerated Call your doctor if you observe: Fever of 101 or Higher, Inability to urinate, Inability to have a bowel movement, Shortness of breath, Chest pain, Uncontrolled pain Home Medications: Medications to take at Discharge Allopurinol [Zyloprim] 200 mg PO DAILY 07/04/13 Cyanocobalamin (Vitamin B-12) [Vitamin B-12] 1,000 mcg IM QMONTH 07/04/13 Gabapentin [Neurontin] 300 mg PO 4X/DAY 07/04/13 Glimepiride [Amaryl] 2 mg PO DAILY 07/04/13 Lansoprazole [Prevacid] 30 mg PO DAILY 07/04/13 Colestipol Tablet [Colestid Tablet] 1 gm PO BID 02/05/15 Multivitamin with Iron [One Daily Plus Iron] 1 ea PO DAILY 02/05/15 Carvedilol [Coreg (Beta Aminah)] 50 mg PO BID 01/05/18 Rivaroxaban [Xarelto] 15 mg PO QHS 01/05/18 pioglitazone 15 mg tablet 30 mg PO QHS 03/29/19 cholecalciferol (vitamin D3) 1,250 mcg (50,000 unit) capsule 50,000 unit PO TU 05/07/19 clotrimazole 1 % vaginal cream 1 appful VAGINAL BID PRN g 05/07/19 levothyroxine 125 mcg capsule 137 mcg PO DAILY cap 11/19/19 Dulaglutide [Trulicity] 1.5 mg SQ PONCE 07/24/20 Triamcinolone 0.1% Cream [Kenalog] 1 applic TOPICAL DAILY PRN 08/19/20 Amiodarone HCl 200 mg PO DAILY 08/21/20 Acetaminophen [Tylenol] 1,000 mg PO Q6H PRN tablet 08/26/20 Iron Polysaccharide Complex [Ferrex 150] 150 mg PO DAILY #30 capsule 08/26/20 Nystatin Powder [Mycostatin Powder] 1 applic TOPICAL BID@0600,2200 bottle 08/26/20 Following Prescriptions Were Given to Patient: Iron Polysaccharide Complex [Ferrex 150] 150 mg PO DAILY #30 capsule Transmission Status: Pending to [facility] Primary Care Physician: Stfean Gordon MD [Primary Care Provider] - Please follow up with your Primary Care Physician in: 1 week. Please Follow Up With: Steafn Gordon MD When: f/u 3-5 days Disposition: Home with Home Health Minutes spent on discharge:: 35 Patient Condition:: Stable Medical Necessity - Tobacco Use Smoking Status: Never smoker Tobacco Use: Non-smoker Meaningful Use Info Meaningful Use Diagnoses (Choose all that apply): None applicable
[2020-08-26 21:21] LABS: Bedside Glucose 168 mg/dL (70-110)
[2020-08-26] MEDS: Rivaroxaban 15 MG Tablet PO (22:06)
[2020-08-26] MEDS: Pioglitazone Hydrochloride 30 MG Tablet PO (22:06)
[2020-08-26] MEDS: guaiFENesin Dm 10 ML UDC PO (22:07)
[2020-08-26 23:00] VITALS: RESP 16
[2020-08-27 05:00] VITALS: BP 116/65; PULSE 69; RESP 16; TEMP 36.7; O2SAT 98
[2020-08-27] MEDS: Iron Polysaccharide Complex 150 MG CAPSULE PO (06:20)
[2020-08-27] MEDS: Carvedilol 25 MG Tablet 50 MG PO ×2 (06:20→17:58)
[2020-08-27] MEDS: Amiodarone 200 MG Tablet PO (06:20)
[2020-08-27] MEDS: Levothyroxine 137 MCG Tablet PO (06:21)
[2020-08-27] MEDS: Gabapentin 300 MG Capsule PO ×4 (06:21→21:10)
[2020-08-27] MEDS: Pantoprazole Sodium 40 MG Tablet PO (06:21)
[2020-08-27] MEDS: Nystatin Powder 15gm Bottle 1 APPLIC TOPICAL ×2 (06:21→21:10)
[2020-08-27 06:35] LABS: Bedside Glucose 93 mg/dL (70-110)
[2020-08-27] MEDS: Glimepiride 2 MG Tablet PO (07:35)
[2020-08-27] MEDS: Multivitamins,Ther W-Minerals Tablet 1 TABLET PO (07:35)
[2020-08-27] MEDS: Allopurinol 100 MG Tablet 200 MG PO (07:35)
[2020-08-27 10:00] VITALS: PULSE 64; RESP 18; O2SAT 98
[2020-08-27 11:16] LABS: Bedside Glucose 154 mg/dL (70-110)
--- NOTE | 2020-08-27 14:19 | MDS.RN ---
Completed pain interview for harman 08/28/20
[2020-08-27 16:25] LABS: Bedside Glucose 131 mg/dL (70-110)
[2020-08-27 16:58] VITALS: BP 135/47; PULSE 71; RESP 18; TEMP 36.7; O2SAT 97
[2020-08-27] MEDS: Senna/Docusate Sodium 1 Tablet PO (17:58)
[2020-08-27] MEDS: Pioglitazone Hydrochloride 30 MG Tablet PO (21:10)
[2020-08-27] MEDS: Rivaroxaban 15 MG Tablet PO (21:10)
[2020-08-27] MEDS: guaiFENesin Dm 10 ML UDC PO (21:13)
[2020-08-27] MEDS: Acetaminophen 500 MG Tablet 1000 MG PO (21:13)
[2020-08-27 21:40] LABS: Bedside Glucose 154 mg/dL (70-110)
[2020-08-28] MEDS: Acetaminophen 500 MG Tablet 1000 MG PO ×3 (03:29→22:40)
[2020-08-28 03:33] VITALS: BP 122/46; PULSE 68; RESP 16; TEMP 36.8; O2SAT 97
[2020-08-28 06:20] LABS: Bedside Glucose 89 mg/dL (70-110)
[2020-08-28] MEDS: Carvedilol 25 MG Tablet 50 MG PO ×2 (06:24→17:32)
[2020-08-28] MEDS: Gabapentin 300 MG Capsule PO ×4 (06:24→22:41)
[2020-08-28] MEDS: Iron Polysaccharide Complex 150 MG CAPSULE PO (06:24)
[2020-08-28] MEDS: Senna/Docusate Sodium 1 Tablet PO ×2 (06:24→17:32)
[2020-08-28] MEDS: Levothyroxine 137 MCG Tablet PO (06:24)
[2020-08-28] MEDS: Pantoprazole Sodium 40 MG Tablet PO (06:24)
[2020-08-28] MEDS: Nystatin Powder 15gm Bottle 1 APPLIC TOPICAL ×2 (06:25→22:41)
[2020-08-28] MEDS: Amiodarone 200 MG Tablet PO (06:25)
[2020-08-28] MEDS: Glimepiride 2 MG Tablet PO (07:44)
[2020-08-28] MEDS: Multivitamins,Ther W-Minerals Tablet 1 TABLET PO (07:44)
[2020-08-28] MEDS: Allopurinol 100 MG Tablet 200 MG PO (07:44)
[2020-08-28] MEDS: Furosemide 40 MG Tablet PO ×2 (10:33→17:32)
[2020-08-28] MEDS: Potassium Chloride Oral Tablet 20 MEQ PO ×2 (10:34→17:32)
[2020-08-28 11:06] LABS: Bedside Glucose 166 mg/dL (70-110)
[2020-08-28] MEDS: guaiFENesin Dm 10 ML UDC PO ×2 (13:30→22:42)
[2020-08-28 14:04] VITALS: BP 143/59; PULSE 72; RESP 18; TEMP 36.7; O2SAT 96
[2020-08-28 16:21] LABS: Bedside Glucose 132 mg/dL (70-110)
[2020-08-28 21:21] LABS: Bedside Glucose 121 mg/dL (70-110)
[2020-08-28] MEDS: Pioglitazone Hydrochloride 30 MG Tablet PO (22:41)
[2020-08-28] MEDS: Rivaroxaban 15 MG Tablet PO (22:42)
[2020-08-29 05:00] VITALS: BP 140/53; PULSE 75; RESP 16; TEMP 36.3; O2SAT 96
[2020-08-29 06:16] LABS: Bedside Glucose 90 mg/dL (70-110)
[2020-08-29] MEDS: Gabapentin 300 MG Capsule PO (06:28)
[2020-08-29] MEDS: Carvedilol 25 MG Tablet 50 MG PO (06:28)
[2020-08-29] MEDS: Polyethylene Glycol 3350 17 GM PACKET PO (06:28)
[2020-08-29] MEDS: Senna/Docusate Sodium 1 Tablet PO (06:28)
[2020-08-29] MEDS: Levothyroxine 137 MCG Tablet PO (06:28)
[2020-08-29] MEDS: Pantoprazole Sodium 40 MG Tablet PO (06:28)
[2020-08-29] MEDS: Iron Polysaccharide Complex 150 MG CAPSULE PO (06:28)
[2020-08-29] MEDS: Nystatin Powder 15gm Bottle 1 APPLIC TOPICAL (06:30)
[2020-08-29] MEDS: Amiodarone 200 MG Tablet PO (06:30)
--- NOTE | 2020-08-29 07:52 | NURSING ---
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 Pt notes she was scheduled to see GI the day after she was admitted to the hospital and plans to contact that office to schedule follow-up upon dc.
[2020-08-29 08:08] LABS: Absolute Lymphocyte Count 0.88 X10^3/uL (0.83-4.51); Absolute Neutrophil Count 3.5 X10^3/uL (2.0-7.7); Basophil# 0.03 X10^3/uL; Basophil% 0.6 % (0-1); Hematocrit 25.8 % (37-47); Hemoglobin 7.9 g/dL (12.0-15.0); Lymphocyte # 0.88 X10^3/ul (4.0); Lymphocyte % 17.6 % (19-41); Mean Corp Hgb Conc 30.6 g/dL (32-36); Mean Corpuscular Hgb 27.8 pg (27.0-32.0); Mean Corpuscular Volume 90.8 fL (81-99); Mean Platelet Vol. 9.8 fl (6.2-12.0); NRBC Flagged by Analyzer 0 % (0-5); Neutrophil # 3.47 X10^3/uL (2.7-7.7); Neutrophil % 69.4 % (47-70); Platelet Count 251 K/mm3 (150-450); RBC Distribution Width SD 52.4 fl (35.1-43.9); Red Blood Count 2.84 M/mm3 (4.2-5.4)
[2020-08-29] MEDS: Allopurinol 100 MG Tablet 200 MG PO (08:08)
[2020-08-29] MEDS: Glimepiride 2 MG Tablet PO (08:08)
[2020-08-29] MEDS: Multivitamins,Ther W-Minerals Tablet 1 TABLET PO (08:08)
[2020-08-29] MEDS: Furosemide 40 MG Tablet PO (08:08)
[2020-08-29] MEDS: Potassium Chloride Oral Tablet 20 MEQ PO (08:09)
[2020-08-29 08:55] VITALS: PULSE 73; RESP 18; O2SAT 96
[2020-08-29 09:02] LABS: Anion Gap 5 (5-15); BUN 38 mg/dL (7-18); BUN/Creat Ratio 22.6 RATIO (10-20); Calcium,Total 8.6 mg/dL (8.5-10.1); Chloride 106 mmol/L (98-107); Creatinine, Serum 1.68 mg/dL (0.55-1.02); EST Glomerular Filtration Rate 31 mL/min (>60); Est Glom Filt Rate - Afr Amer 38 mL/min (>60); Estimated Creatinine Clearance 27.39 ml/min; Glucose 93 mg/dL (74-106); Potassium 3.9 mmol/L (3.5-5.1); Sodium Level 140 mmol/L (136-145)
--- NOTE | 2020-09-03 08:52 | MDS.RN ---
Information for the mds was obtained from review of the clinical record, interview of resident, staff, and direct observation of resident's care.
== END 2020-08-29 09:28 | disposition home health service (06) | DRG 812 ==
PROVIDERS: Admitting Provider Family Medicine Geriatric Medicine; PCP Family Medicine; Visit Provider Family Medicine Geriatric Medicine
DX: D64.9 Anemia, unspecified (principal); K64.9 Unspecified hemorrhoids; M10.9 Gout, unspecified; I48.0 Paroxysmal atrial fibrillation; K21.9 Gastro-esophageal reflux disease without esophagitis; B37.3 Candidiasis of vulva and vagina; E78.5 Hyperlipidemia, unspecified; E53.8 Deficiency of other specified B group vitamins; E55.9 Vitamin D deficiency, unspecified; E03.9 Hypothyroidism, unspecified; E11.40 Type 2 diabetes mellitus 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 neuropathy, unspecified; B35.4 Tinea corporis; Z79.899 Other long term (current) drug therapy; Z79.01 Long term (current) use of anticoagulants
CPT/HCPCS: 36415; 71046; 80048; 82962; 85014; 85018; 85025; 87635; 97110; 97116; 97162; 97166; 97530; 97535; 97802; J3420; U0002

== ENCOUNTER 2020-10-22 09:42 | Emergency (ER) | payer MEDICARE, SELFPAY ==
[2020-10-22 09:42] VITALS: BP 144/71; PULSE 76; RESP 18; TEMP 36.6; O2SAT 98; BMI 35.9
--- NOTE | 2020-10-22 10:00 | EX.ED.DYSGE1 ---
HPI History of Present Illness Chief Complaint: Abn Labs Narrative Narrative: 79-year-old female presenting with abnormal labs. She states her hemoglobin drawn yesterday by her primary care physician showed hemoglobin of 6.3. Patient states that a couple of weeks ago she was 9.1. Patient states that she recently within the last 2 weeks had a swallow endoscopy which did not show any signs of bleeding. She states that she had been Hemoccult negative prior to this. They are trying to determine the source of the bleeding. Patient states this morning she felt a little bit short of breath while walking back to his bed from the bathroom however she is felt otherwise well. She denies dizziness, lightheadedness. Patient states he has not had any black or bloody stools. She does take iron supplements. She is on Xarelto for history of A. fib. Patient also has history of GI bleeding. [facility] Medical History Abdominal pain TAWANDA (acute kidney injury) Cardiomyopathy in disease classified elsewhere Cholecystitis with cholelithiasis Choledocholithiasis with acute cholecystitis Dehydration Diarrhea Generalized anxiety disorder Generalized osteoarthritis Hyperlipidemia Paroxysmal atrial fibrillation Paroxysmal atrial flutter Type 2 diabetes mellitus Home Medications allopurinol 200 mg PO DAILYCM 07/04/13 [History Last Taken 08/18/20] cyanocobalamin (vitamin B-12) 1,000 mcg IM QMONTH 07/04/13 [History Last Taken 07/06/20] gabapentin 300 mg PO 4X/DAY 07/04/13 [History Last Taken 08/18/20] glimepiride 2 mg PO DAILY 07/04/13 [History Last Taken 08/18/20] lansoprazole 30 mg PO DAILY 07/04/13 [History Last Taken 08/18/20] colestipol 1 gm PO BIDCM 02/05/15 [History Last Taken 08/18/20] multivitamin with iron 1 ea PO DAILY 02/05/15 [History Last Taken 08/18/20] carvedilol 50 mg PO BID 01/05/18 [History Last Taken 08/18/20] rivaroxaban 15 mg PO QHS 01/05/18 [History Last Taken 08/18/20] pioglitazone 15 mg tablet 30 mg PO QHS 03/29/19 [History Last Taken 08/18/20] cholecalciferol (vitamin D3) 1,250 mcg (50,000 unit) capsule 50,000 unit PO TU 05/07/19 [History Last Taken 08/18/20] clotrimazole 1 % vaginal cream 1 appful VAGINAL BID PRN g 05/07/19 [History Last Taken Unknown] dulaglutide 1.5 mg SQ PONCE 07/24/20 [History Last Taken 08/16/20] Triamcinolone 0.1% Cream [Kenalog] 1 applic TOPICAL DAILY PRN 08/19/20 [History Last Taken Unknown] amiodarone 200 mg PO DAILY 08/21/20 [History Last Taken Unknown] acetaminophen 1,000 mg PO Q6H PRN tablet 08/26/20 [Rx Last Taken Unknown] nystatin 1 applic TOPICAL BID@0600,2200 bottle 08/26/20 [Rx Last Taken Unknown] polysaccharide iron complex 150 mg PO DAILY #30 capsule 08/26/20 [Rx Last Taken Unknown] levothyroxine 137 mcg PO DAILY 10/22/20 [History Last Taken Unknown] Allergy/AdvReac Type Severity Reaction Status Date / Time iodine Allergy Hives Verified 10/22/20 09:45 simvastatin Allergy Other Verified 10/22/20 09:45 Zywyfcg-Urk-Pud Reductase AdvReac Severe mylagias Verified 10/22/20 09:45 Inhibitor Family History Brother Heart disease Mother Heart disease Father Heart disease Surgical History (Updated 10/22/20 @ 11:14 by Salile Gutierrez) History of carpal tunnel surgery History of cataract surgery History of cholecystectomy History of knee replacement History of tonsillectomy Social History Smoking Status: Never smoker alcohol intake: never substance use type: does not use ROS ROS ED Constitutional Constitutional ED: Denies chills, fever(s) or sweats Eyes Eyes: Denies blurry vision or change in vision ENT ENT ED: Denies ear pain, rhinorrhea or sore throat Cardiovascular Cardiovascular: Denies chest pain, palpitations or racing heartbeat Respiratory/Chest Respiratory/Chest: Reports dyspnea; Denies cough or sputum Gastrointestinal Gastrointestinal: Denies abdominal pain, constipation, diarrhea or vomiting Genitourinary Genitourinary ED: Denies dysuria, hematuria or urinary frequency Musculoskeletal Musculoskeletal: Denies arthralgias, myalgias or neck pain Integumentary Denies abscess, Abrasions or rash Neurologic Neurologic: Denies headache(s), paresthesias or weakness Psychiatric Psychiatric: Denies anxiety, depression, suicidal ideation or suicidal thoughts Endocrine Endocrinology: Denies polydipsia or polyuria EXAM Physical Exam Const Vital Signs: 10/22/20 09:42 10/22/20 11:11 10/22/20 11:23 Temperature 98 F Temperature Source Temporal Pulse Rate 76 Pulse Rate [Lying] 73 Pulse Rate [Sitting] 73 Pulse Rate [Standing] 77 Respiratory Rate 18 Respiratory Effort Normal Non-Labored Respiratory Pattern Normal Blood Pressure 144/71 H Blood Pressure [Lying] 149/68 H Blood Pressure [Sitting] 149/58 H Blood Pressure [Standing] 142/71 H Blood Pressure Mean 95 Blood Pressure Mean [Lying] 95 Blood Pressure Mean [Sitting] 88 Blood Pressure Mean [Standing] 94 Pulse Ox 98 Oxygen Delivery Method Room Air General Appearance ED: Negative for pallor HEENT Reports normocephalic, head/scalp atraumatic and moist mucous membranes Eyes PERRL and EOMs intact bilaterally Neck no lymphadenopathy and supple Chest Wall inspection of chest normal and palpation of chest normal Resp normal respiratory effort and clear to auscultation bilaterally Auscultation: Negative for rales, rhonchi or wheezes Cardio regular rate and regular rhythm GI normal to inspection, nondistended, normoactive bowel sounds and non-distended Auscultation: normoactive bowel sounds Palpation: soft Narrative: Deferred Back/Spine no CVA tenderness General Back: Negative for CVA tenderness Cervical Spine: Negative for cervical spine tenderness Extremity normal to inspection General Extremety ED: Yes edema and tenderness General Extremity: edema Neuro oriented x3 and CN's II-XII intact bilaterally Sensorium / Orientation: alert Motor Exam: strength 5/5 throughout Psych mental status grossly normal Attitude: No agitated Skin no rashes or lesions noted and no wounds General Skin Exam: Negative for jaundice or pallor MDM MDM MDM Narrative Medical decision making narrative: Patient presenting with abnormal labs. She states he is not significantly symptomatic from being anemic. She does relate that she was a little bit short of breath this morning but is felt otherwise well. She denies any chest pain. She denies black or bloody stools. Given her episode of dyspnea I did have an EKG performed which is sinus rhythm at 72 bpm as interpreted by myself. Patient's lab work drawn today shows a hemoglobin of 7.1, hematocrit 20.5, platelets 235, white blood cell count 5.3. INR 2.1 troponin is negative. Chest x-ray is interpreted by myself shows no acute cardiopulmonary process. Radiology does agree. Renal function is near baseline. Patient is orthostatic negative. She feels well except for one episode of shortness of breath earlier today. I spoke with Dr. Gordon regarding the patient as I do not leave she needs to be admitted to the hospital. She is already had upper and lower endoscopy which would not be repeated. She is also had a pill endoscopy which was negative within the last 2 weeks. He will follow up with her in a few days to repeat her CBC. I discussed with her if she starts feeling lightheaded, short of breath, she is more pale and symptomatic she should return to the ED otherwise she is safe to follow-up outpatient. Impression: 1. Anemia 2. GI bleed Lab Data Labs: Laboratory Results - last 24 hr 10/22/20 10/22/20 10/22/20 11:05 11:05 11:05 WBC 5.3 RBC 2.57 L Hgb 7.1 L Hct 23.5 L MCV 91.4 MCH 27.6 MCHC 30.2 L RDW Std Deviation 56.2 H RDW Coeff of Melanie 16.6 H Plt Count 235 MPV 9.8 Immature Gran % (Auto) 0.600 Neut % (Auto) 73.1 H Lymph % (Auto) 15.[address] [place] % (Auto) 5.4 Eos % (Auto) 5.1 H Baso % (Auto) 0.4 Absolute Neuts (auto) 3.9 Absolute Lymphs (auto) 0.82 L Nucleated RBC % 0 PT 22.5 H INR 2.1 Sodium 142 Potassium 4.2 Chloride 108 H Carbon Dioxide 31.0 Anion Gap 3 L BUN 41 H Creatinine 1.58 H Estim Creat Clear Calc 30.17 Est GFR (MDRD) Af Amer 41 L Est GFR (MDRD) Non-Af 33 L BUN/Creatinine Ratio 25.9 H Glucose 99 Calcium 8.6 Total Bilirubin 0.30 AST 11 L ALT 14 Alkaline Phosphatase 98 Troponin I < 0.015 Total Protein 6.7 Albumin 3.1 L Globulin 3.6 Albumin/Globulin Ratio 0.9 Blood Type Antibody Screen 10/22/20 11:05 WBC RBC Hgb Hct MCV MCH MCHC RDW Std Deviation RDW Coeff of Melanie Plt Count MPV Immature Gran % (Auto) Neut % (Auto) Lymph % (Auto) [place] % (Auto) Eos % (Auto) Baso % (Auto) Absolute Neuts (auto) Absolute Lymphs (auto) Nucleated RBC % PT INR Sodium Potassium Chloride Carbon Dioxide Anion Gap BUN Creatinine Estim Creat Clear Calc Est GFR (MDRD) Af Amer Est GFR (MDRD) Non-Af BUN/Creatinine Ratio Glucose Calcium Total Bilirubin AST ALT Alkaline Phosphatase Troponin I Total Protein Albumin Globulin Albumin/Globulin Ratio Blood Type O NEGATIVE Antibody Screen NEGATIVE Radiography Diagnostic Testing: Radiology Impression Chest X-Ray 10/22/20 10:03 IMPRESSION: Chronic interstitial changes with stable right perihilar fullness. No superimposed process or significant interval change Electronically Signed: Trell Garcia MD at 11:11 EDT , Service support , Discharge Plan Triage Chief Complaint: Abn Labs ED Provider: Kasi Herrera Dx/Rx/DC Orders Instructions: Anemia, ED Lower GI Bleeding (Stable) Prescriptions: No Action pioglitazone 15 mg tablet 30 mg PO QHS RF: 0 cholecalciferol (vitamin D3) 50,000 unit capsule 50,000 unit PO TU RF: 0 clotrimazole 1 % cream 1 appful VAGINAL BID PRN (Reason: itching/irritation) RF: 0 allopurinol 100 MG tablet 200 mg PO DAILYCM RF: 0 glimepiride 4 MG tablet 2 mg PO DAILY RF: 0 lansoprazole 30 MG capsule 30 mg PO DAILY RF: 0 gabapentin 300 MG capsule 300 mg PO 4X/DAY RF: 0 cyanocobalamin (vitamin B-12) 1,000 MCG/ML drops 1,000 mcg IM QMONTH RF: 0 colestipol 1 GM tablet 1 gm PO BIDCM RF: 0 multivitamin with iron 1 EACH tablet 1 ea PO DAILY RF: 0 carvedilol 25 MG tablet 50 mg PO BID RF: 0 rivaroxaban 15 MG tablet 15 mg PO QHS RF: 0 dulaglutide 1.5 MG/0.5 ML pen injector 1.5 mg SQ PONCE RF: 0 Triamcinolone 0.1% Cream [Kenalog] 1 APPLIC Tube 1 applic TOPICAL DAILY PRN (Reason: Itching) RF: 0 amiodarone 200 MG tablet 200 mg PO DAILY RF: 0 polysaccharide iron complex 150 MG capsule 150 mg PO DAILY Qty: 30 RF: 0 acetaminophen 500 MG tablet 1,000 mg PO Q6H PRN (Reason: Pain Score 1-10) RF: 0 nystatin 1 APPLIC bottle 1 applic TOPICAL BID@0600,2200 RF: 0 levothyroxine 137 mcg tablet 137 mcg PO DAILY RF: 0 Primary Care Provider: Stefan Gordon Referrals: Stefan Gordon MD [Primary Care Provider] -
--- NOTE | 2020-10-22 10:03 | EKG12_ITS ---
Test Reason : ABN LABS Blood Pressure : / mmHG Vent. Rate : 072 BPM Atrial Rate : 072 BPM P-R Int : 180 ms QRS Dur : 092 ms QT Int : 438 ms P-R-T Axes : 047 007 022 degrees QTc Int : 479 ms Normal sinus rhythm Normal ECG Confirmed by JOHN ROTHMAN, ANTON ([id number]), continuity editor EMERSON WHITE ([id number]) on 10/27/2020 9:59:30 AM Referred By: ELSA Confirmed By:ETHEL LOPEZ MD
--- NOTE | 2020-10-22 10:03 | RAD_ITS ---
STUDY: X-RAY CHEST REASON FOR EXAM: Female, 79 years old. Worsening shortness of breath TECHNIQUE: Single AP portable view of the chest. COMPARISON: 08/25/2020 FINDINGS: There are interstitial changes of the lungs. Stable right perihilar fullness. There is no demonstrated pleural abnormality. Normal size heart. Normal mediastinum and radames. Normal visualized pulmonary arteries. Normal visualized aortic arch and descending thoracic aorta. Normal visualized thoracic spine. Normal visualized ribs, clavicles, and shoulders. There is no demonstrated abnormality of the visualized soft tissue structures of the upper abdomen. RAD/Chest 1 View (Portable) IMPRESSION: Chronic interstitial changes with stable right perihilar fullness. No superimposed process or significant interval change Electronically Signed: Trell Garcia MD at 11:11 EDT , Service support ,
[2020-10-22 11:23] VITALS: BP 142/71; BP 149/58; BP 149/68; PULSE 73; PULSE 77
[2020-10-22 11:26] LABS: Absolute Lymphocyte Count 0.82 X10^3/uL (0.83-4.51); Absolute Neutrophil Count 3.9 X10^3/uL (2.0-7.7); Basophil# 0.02 X10^3/uL; Basophil% 0.4 % (0-1); Eosinophil# 0.27 X10^3/uL; Eosinophils% 5.1 % (0-5); Hematocrit 23.5 % (37-47); Hemoglobin 7.1 g/dL (12.0-15.0); Lymphocyte # 0.82 X10^3/ul (0.83-4.51); Lymphocyte % 15.4 % (19-41); Mean Corp Hgb Conc 30.2 g/dL (32-36); Mean Corpuscular Hgb 27.6 pg (27.0-32.0); Mean Corpuscular Volume 91.4 fL (81-99); Mean Platelet Vol. 9.8 fl (6.2-12.0); Monocyte# 0.29 X10^3/uL; Monocyte% 5.4 % (0-10); NRBC Flagged by Analyzer 0 % (0-5); Neutrophil # 3.91 X10^3/uL (2.7-7.7); Neutrophil % 73.1 % (47-70); Platelet Count 235 K/mm3 (150-450); RBC Distribution Width CV 16.6 % (11.6-14.6); RBC Distribution Width SD 56.2 fl (35.1-43.9); Red Blood Count 2.57 M/mm3 (4.2-5.4); White Blood Count 5.3 K/mm3 (4.4-11.0)
[2020-10-22 11:38] LABS: International Normalized Ratio 2.1; Prothrombin Time (Protime)PT. 22.5 SECONDS (11.7-14.9)
[2020-10-22 11:44] LABS: ALB/GLOB Ratio 0.9 RATIO (0.9-2.4); AST(SGOT) 11 U/L (15-37); Alanine Aminotransfer ALT/SGPT 14 U/L (13-56); Albumin, Serum 3.1 g/dL (3.2-5.0); Alkaline Phosphatase 98 U/L (45-117); Anion Gap 3 (5-15); BUN 41 mg/dL (7-18); BUN/Creat Ratio 25.9 RATIO (10-20); Calcium,Total 8.6 mg/dL (8.5-10.1); Chloride 108 mmol/L (98-107); Creatinine, Serum 1.58 mg/dL (0.55-1.02); EST Glomerular Filtration Rate 33 mL/min (>60); Est Glom Filt Rate - Afr Amer 41 mL/min (>60); Estimated Creatinine Clearance 30.17 ml/min; Globulin 3.6 g/dL (2.2-4.2); Glucose 99 mg/dL (74-106); Potassium 4.2 mmol/L (3.5-5.1); Protein, Total 6.7 g/dL (6.4-8.2); Sodium Level 142 mmol/L (136-145)
[2020-10-22 12:35] VITALS: BP 143/56; PULSE 81; RESP 18; O2SAT 98
== END 2020-10-22 12:41 | disposition home or self-care (01) ==
PROVIDERS: Emergency Provider Student in an Organized Health Care Education/Training Program; PCP Family Medicine
DX: D64.9 Anemia, unspecified (principal); K92.2 Gastrointestinal hemorrhage, unspecified; R06.02 Shortness of breath; I48.0 Paroxysmal atrial fibrillation; E11.9 Type 2 diabetes mellitus without complications; I42.9 Cardiomyopathy, unspecified; E78.5 Hyperlipidemia, unspecified; M15.9 Polyosteoarthritis, unspecified; F41.1 Generalized anxiety disorder; Z79.84 Long term (current) use of oral hypoglycemic drugs; Z79.01 Long term (current) use of anticoagulants; Z79.899 Other long term (current) drug therapy
CPT/HCPCS: 71045; 80053; 82274; 84484; 85025; 85610; 86850; 86900; 86901; 93005; 99284; J7040

== ENCOUNTER → 2020-10-28 07:59 | Outpatient (CLI) | payer MEDICARE, SELFPAY ==
[2020-10-22 09:42] VITALS: BMI 35.9
[2020-10-28 08:12] VITALS: BP 122/40; PULSE 79; RESP 16; TEMP 37.2; O2SAT 98; BMI 35.9
[2020-10-28 09:05] VITALS: BP 120/35; PULSE 75; RESP 16; TEMP 36.9; O2SAT 98
[2020-10-28 09:45] VITALS: BP 146/54; PULSE 76; RESP 16; TEMP 36.6; O2SAT 97
[2020-10-28 11:30] VITALS: BP 130/47; PULSE 74; RESP 16; TEMP 37; O2SAT 97
[2020-10-28] MEDS: Furosemide 20 MG/2 ML VIAL IV (11:32)
== END ==
PROVIDERS: PCP Family Medicine; Referring Provider Family Medicine; Visit Provider Family Medicine
DX: D64.9 Anemia, unspecified (principal)
CPT/HCPCS: 36415; 36430; 86644; 86850; 86900; 86901; 86920; 86922; J7040; J7050; P9040; A4216; J1940

== ENCOUNTER 2020-11-01 09:44 | Emergency (ER) | payer MEDICARE, SELFPAY ==
[2020-10-28 08:12] VITALS: BMI 35.9
[2020-11-01 09:44] VITALS: BP 131/53; PULSE 80; RESP 17; TEMP 37.4; O2SAT 94; BMI 37.4
--- NOTE | 2020-11-01 10:09 | EKG12_ITS ---
Test Reason : WEAKNESS Blood Pressure : / mmHG Vent. Rate : 071 BPM Atrial Rate : 071 BPM P-R Int : 168 ms QRS Dur : 088 ms QT Int : 450 ms P-R-T Axes : 032 003 008 degrees QTc Int : 489 ms Normal sinus rhythm Normal ECG Confirmed by MARY ROTHMAN, DEVI ([id number]), research editor EMERSON WHITE ([id number]) on 11/03/2020 1:55:15 PM Referred By: RU Confirmed By:DEVI HERNANDEZ MD
--- NOTE | 2020-11-01 10:09 | RAD_ITS ---
STUDY: X-RAY CHEST REASON FOR EXAM: Female, 80 years old. dyspnea TECHNIQUE: Single AP portable view of the chest. COMPARISON: 10/22/2020 FINDINGS: The lungs are clear and expanded. There is no demonstrated pleural abnormality. There is moderate cardiac enlargement. Normal mediastinum and radames. Normal visualized pulmonary arteries. Normal visualized aortic arch and descending thoracic aorta. Normal visualized thoracic spine. Normal visualized ribs, clavicles, and shoulders. There is no demonstrated abnormality of the visualized soft tissue structures of the upper abdomen. RAD/Chest 1 View (Portable) IMPRESSION: No active disease. Electronically Signed: Aurelio Grossman MD at 10:56 EDT Tel , Service support ,
--- NOTE | 2020-11-01 10:11 | EDS_ITS ---
HPI History of Present Illness Chief Complaint: Weakness Narrative Narrative: Presents with shortness of breath that started this morning after returning from the restroom. Patient felt very weak and was not sure if he can make it back in the bed. She went back to bed and woke up feeling that she was very hot and took her temperature which read 101. Patient denies recent illness. Patient has been vaccinated against COVID-19 with both doses of vaccine. Patient denies cough. She denies vomiting or diarrhea. She denies dysuria. Patient is currently being treated with nitrofurantoin for possible UTI. She has not had any nausea or vomiting. Patient states that she is known to be anemic and is scheduled to have iron infusions next week. Patient had 1 unit of blood transfused last week. She denies any blood in her stool or black tarry stool. Patient denies chest pain. Prior similar symptoms: Yes PFSH [facility] Medical History (Updated 11/01/20 @ 11:[address] Ann De La Rosa, DO) Abdominal pain TAWANDA (acute kidney injury) Anemia Cardiomyopathy in disease classified elsewhere Cholecystitis with cholelithiasis Choledocholithiasis with acute cholecystitis Dehydration Diarrhea Generalized anxiety disorder Generalized osteoarthritis Hyperlipidemia Paroxysmal atrial fibrillation Paroxysmal atrial flutter Type 2 diabetes mellitus Home Medications allopurinol 200 mg PO DAILYCM 07/04/13 [History Last Taken 08/18/20] cyanocobalamin (vitamin B-12) 1,000 mcg IM QMONTH 07/04/13 [History Last Taken 07/06/20] gabapentin 300 mg PO 4X/DAY 07/04/13 [History Last Taken 08/18/20] glimepiride 2 mg PO DAILY 07/04/13 [History Last Taken 08/18/20] lansoprazole 30 mg PO DAILY 07/04/13 [History Last Taken 08/18/20] colestipol 1 gm PO BIDCM 02/05/15 [History Last Taken 08/18/20] multivitamin with iron 1 ea PO DAILY 02/05/15 [History Last Taken 08/18/20] carvedilol 50 mg PO BID 01/05/18 [History Last Taken 08/18/20] pioglitazone 15 mg tablet 30 mg PO QHS 03/29/19 [History Last Taken 08/18/20] cholecalciferol (vitamin D3) 1,250 mcg (50,000 unit) capsule 50,000 unit PO TU 05/07/19 [History Last Taken 08/18/20] clotrimazole 1 % vaginal cream 1 appful VAGINAL BID PRN g 05/07/19 [History Last Taken Unknown] dulaglutide 1.5 mg SQ PONCE 07/24/20 [History Last Taken 08/16/20] Triamcinolone 0.1% Cream [Kenalog] 1 applic TOPICAL DAILY PRN 08/19/20 [History Last Taken Unknown] amiodarone 200 mg PO DAILY 08/21/20 [History Last Taken Unknown] acetaminophen 1,000 mg PO Q6H PRN tablet 08/26/20 [Rx Last Taken Unknown] nystatin 1 applic TOPICAL BID@0600,2200 bottle 08/26/20 [Rx Last Taken Unknown] polysaccharide iron complex 150 mg PO DAILY #30 capsule 08/26/20 [Rx Last Taken Unknown] levothyroxine 137 mcg PO DAILY 10/22/20 [History Last Taken Unknown] nitrofurantoin 100 mg PO BID 10/28/20 [History Last Taken Unknown] Allergy/AdvReac Type Severity Reaction Status Date / Time iodine Allergy Hives Verified 11/01/20 09:44 simvastatin Allergy Other Verified 11/01/20 09:44 [id number] Reductase AdvReac Severe mylagias Verified 11/01/20 09:44 Inhibitor Family History Brother Heart disease Mother Heart disease Father Heart disease Surgical History History of carpal tunnel surgery History of cataract surgery History of cholecystectomy History of knee replacement History of tonsillectomy Social History Smoking Status: Never smoker alcohol intake: never substance use type: does not use ROS ROS ED Constitutional Constitutional ED: Reports systems reviewed and no addt'l complaints, except as documented and fever(s); Denies body ache(s), change in weight or chills Eyes Eyes: Denies acute decrease in peripheral vision, change in vision, double vision or loss of vision ENT ENT ED: Reports none; Denies ear pain, lip swelling, loss taste/smell, neck pain, otalgia or sore throat Cardiovascular Cardiovascular: Reports none; Denies abdominal pain, chest pain with activity, leg edema, lightheadedness, palpitations, rapid heart rate or syncope Respiratory/Chest Respiratory/Chest: Reports none, dyspnea and dyspnea on exertion; Denies change in mental status, cough, dry cough, hemoptysis, shortness of breath at rest, sh ortness of breath with exertion or sputum Gastrointestinal Gastrointestinal: Reports none; Denies abdominal pain, change in stool character, diarrhea, hematemesis, hematochezia, melena, rectal bleeding or vomiting Genitourinary Genitourinary ED: Reports none; Denies abdominal discomfort, anuria, dysuria, genital pain, polyuria or urinary frequency Musculoskeletal Musculoskeletal: Reports none; Denies arthralgias, back pain, difficulty walking, extremity pain, muscle weakness or myalgias Integumentary Reports none; Denies abscess or rash Neurologic Neurologic: Reports none; Denies abnormal gait, confusion, focal weakness, frequent falls, headache(s), loss of vision, numbness, paresthesias, radicular pain, vertigo or weakness Psychiatric Psychiatric: Reports systems reviewed and no addt'l complaints, except as documented and none; Denies behavioral changes, confusion, difficulty concentrating, hallucinations, suicidal ideation, tactile hallucinations or visual hallucinations Endocrine Endocrinology: Denies none, cold intolerance, excessive sweating, fatigue or heat intolerance Hematologic/Lymphatic Hematologic/Lymphatic: Reports none; Denies anemia, easy bleeding or easy bruising Allergic/Immunologic Allergic/Immunologic ED: Denies as per HPI, none, lip swelling, mouth swelling, throat swelling, tongue swelling or hives EXAM Physical Exam Const Vital Signs: 11/01/20 09:44 11/01/20 10:00 Temperature 99.3 F H Temperature Source Oral Pulse Rate 80 Respiratory Rate 17 Respiratory Effort Non-Labored Respiratory Pattern Normal Blood Pressure 131/53 H Blood Pressure Mean 79 Pulse Ox 94 Oxygen Delivery Method Room Air Positive well nourished and well developed General Appearance ED: well developed and NAD HEENT Reports TM's clear and moist mucous membranes normocephalic and atraumatic; Negative for trauma or tenderness Tympanic Membrane ED: Yes TM's clear Eyes PERRL and EOMs intact bilaterally General Eye ED: Negative for pale conjunctiva or scleral icterus Neck no lymphadenopathy, supple and no JVD General: Negative for tenderness Chest Wall inspection of chest normal and palpation of chest normal Chest: Negative for tenderness Resp normal respiratory effort and clear to auscultation bilaterally Effort and Inspection: Negative for respiratory distress or pain with movement Auscultation: Negative for rhonchi, wheezes or diminished lung sounds Cardio regular rate, regular rhythm, S1 normal heart sound, S2 normal heart sound and no murmurs Peripheral Pulses: pulses 2+ throughout GI normal to inspection, nondistended, normoactive bowel sounds, soft to palpation, non-tender, non-distended and no masses Back/Spine no CVA tenderness and no thoracic nor lumbar tenderness Extremity normal to inspection Extremity Narrative: +2 edema both lower extremities that symmetric. No evidence of cellulitis. General Extremety ED: Yes edema General Extremity: edema Neuro oriented x3, CN's II-XII intact bilaterally, no sensory deficits noted and gait normal Sensorium / Orientation: awake, alert, oriented to person, oriented to place and oriented to time Motor Exam: strength 5/5 throughout and strength abnormal Psych mental status grossly normal Skin no rashes or lesions noted and no wounds MDM MDM MDM Narrative Medical decision making narrative: Patient noted to be chronically anemic with a hemoglobin of 6.9. On 520 her hemoglobin was 7.1. At this point etiology of her fever at home is unclear. I do not feel patient is septic and I do not have a source for her fever. She is advised to continue with her nitrofurantoin. At this point she does not want to be admitted. Patient states that she feels pretty good at this time. We discussed possible admission and possibly transfusing her another unit of blood however she is scheduled for iron infusion. She is not having acute blood loss. Lab Data Attestation: I reviewed the patient's lab results. Labs: Laboratory Results - last 24 hr 11/01/20 11/01/20 11/01/20 10:25 10:25 10:25 WBC 4.8 RBC 2.52 L Hgb 6.9 L Hct 22.3 L MCV 88.5 MCH 27.4 MCHC 30.9 L RDW Std Deviation 53.5 H RDW Coeff of Melanie 16.4 H Plt Count 215 MPV 9.2 Immature Gran % (Auto) 0.600 Neut % (Auto) 75.9 H Lymph % (Auto) 12.9 L [place] % (Auto) 7.5 Eos % (Auto) 2.7 Baso % (Auto) 0.4 Absolute Neuts (auto) 3.6 Absolute Lymphs (auto) 0.62 L Nucleated RBC % 0 Sodium 138 Potassium 4.3 Chloride 103 Carbon Dioxide 29.0 Anion Gap 6 BUN 31 H Creatinine 1.63 H Estim Creat Clear Calc 27.77 Est GFR (MDRD) Af Amer 39 L Est GFR (MDRD) Non-Af 32 L BUN/Creatinine Ratio 19.0 Glucose 114 H Lactic Acid 0.9 Calcium 8.2 L Troponin I < 0.015 Urine Color Urine Clarity Urine pH Ur Specific [place] Urine Protein Urine Glucose (UA) Urine Ketones Urine Occult Blood Urine Nitrite Urine Bilirubin Urine Urobilinogen Ur Leukocyte Esterase Urine RBC Urine WBC Ur Squamous Epith Cells Urine Bacteria Urine Mucus 11/01/20 11:00 WBC RBC Hgb Hct MCV MCH MCHC RDW Std Deviation RDW Coeff of Melanie Plt Count MPV Immature Gran % (Auto) Neut % (Auto) Lymph % (Auto) [place] % (Auto) Eos % (Auto) Baso % (Auto) Absolute Neuts (auto) Absolute Lymphs (auto) Nucleated RBC % Sodium Potassium Chloride Carbon Dioxide Anion Gap BUN Creatinine Estim Creat Clear Calc Est GFR (MDRD) Af Amer Est GFR (MDRD) Non-Af BUN/Creatinine Ratio Glucose Lactic Acid Calcium Troponin I Urine Color Yellow Urine Clarity Clear Urine pH 7.0 Ur Specific [place] 1.005 Urine Protein Negative Urine Glucose (UA) Normal Urine Ketones Negative Urine Occult Blood Negative Urine Nitrite Negative Urine Bilirubin Negative Urine Urobilinogen Normal Ur Leukocyte Esterase 100 H Urine RBC 0 SEEN Urine WBC 0-5 SEEN Ur Squamous Epith Cells 5-10 SEEN Urine Bacteria 1+ Urine Mucus 0 SEEN Radiography Diagnostic Testing: Radiology Impression Chest X-Ray 11/01/20 10:09 IMPRESSION: No active disease. Electronically Signed: Aurelio Grossman MD at 10:56 EDT Tel , Service support , 1 view chest x-ray obtained interpreted by myself as no acute disease process. Radiology in agreement. EKG Initial EKG: Comments: Sinus rhythm with a ventricular rate of 71 bpm with no acute ST segment changes. Prior EKG tracings: available for review Prior: Unchanged Discharge Plan Triage Chief Complaint: Weakness ED Provider: Ungur,Remus Dx/Rx/DC Orders Clinical Impression: Chronic anemia, Fever, unknown origin, Weakness Instructions: ED Anemia, Type Not Specified (Adult), ED FUO Adult, ED Weakness (Uncertain Cause) Prescriptions: No Action pioglitazone 15 mg tablet 30 mg PO QHS RF: 0 cholecalciferol (vitamin D3) 50,000 unit capsule 50,000 unit PO TU RF: 0 clotrimazole 1 % cream 1 appful VAGINAL BID PRN (Reason: itching/irritation) RF: 0 allopurinol 100 MG tablet 200 mg PO DAILYCM RF: 0 glimepiride 4 MG tablet 2 mg PO DAILY RF: 0 lansoprazole 30 MG capsule 30 mg PO DAILY RF: 0 gabapentin 300 MG capsule 300 mg PO 4X/DAY RF: 0 cyanocobalamin (vitamin B-12) 1,000 MCG/ML drops 1,000 mcg IM QMONTH RF: 0 colestipol 1 GM tablet 1 gm PO BIDCM RF: 0 multivitamin with iron 1 EACH tablet 1 ea PO DAILY RF: 0 carvedilol 25 MG tablet 50 mg PO BID RF: 0 dulaglutide 1.5 MG/0.5 ML pen injector 1.5 mg SQ PONCE RF: 0 Triamcinolone 0.1% Cream [Kenalog] 1 APPLIC Tube 1 applic TOPICAL DAILY PRN (Reason: Itching) RF: 0 amiodarone 200 MG tablet 200 mg PO DAILY RF: 0 polysaccharide iron complex 150 MG capsule 150 mg PO DAILY Qty: 30 RF: 0 acetaminophen 500 MG tablet 1,000 mg PO Q6H PRN (Reason: Pain Score 1-10) RF: 0 nystatin 1 APPLIC bottle 1 applic TOPICAL BID@0600,2200 RF: 0 levothyroxine 137 mcg tablet 137 mcg PO DAILY RF: 0 nitrofurantoin 100 mg Capsule 100 mg PO BID RF: 0 Primary Care Provider: Stefan Gordon Referrals: Stefan Gordon MD [Primary Care Provider] - 3-5 Days Disposition Disposition: Home, self care
[2020-11-01] MEDS: 0.9% Normal Saline 1,000 ML 150 ML IV (10:36)
[2020-11-01 10:43] LABS: Absolute Lymphocyte Count 0.62 X10^3/uL (0.83-4.51); Absolute Neutrophil Count 3.6 X10^3/uL (2.0-7.7); Basophil# 0.02 X10^3/uL; Basophil% 0.4 % (0-1); Eosinophil# 0.13 X10^3/uL; Eosinophils% 2.7 % (0-5); Hematocrit 22.3 % (37-47); Hemoglobin 6.9 g/dL (12.0-15.0); Lymphocyte # 0.62 X10^3/ul (0.83-4.51); Lymphocyte % 12.9 % (19-41); Mean Corp Hgb Conc 30.9 g/dL (32-36); Mean Corpuscular Hgb 27.4 pg (27.0-32.0); Mean Corpuscular Volume 88.5 fL (81-99); Mean Platelet Vol. 9.2 fl (6.2-12.0); Monocyte# 0.36 X10^3/uL; Monocyte% 7.5 % (0-10); NRBC Flagged by Analyzer 0 % (0-5); Neutrophil # 3.64 X10^3/uL (2.7-7.7); Neutrophil % 75.9 % (47-70); Platelet Count 215 K/mm3 (150-450); RBC Distribution Width CV 16.4 % (11.6-14.6); RBC Distribution Width SD 53.5 fl (35.1-43.9); Red Blood Count 2.52 M/mm3 (4.2-5.4); White Blood Count 4.8 K/mm3 (4.4-11.0)
[2020-11-01 10:56] LABS: Anion Gap 6 (5-15); BUN 31 mg/dL (7-18); Calcium,Total 8.2 mg/dL (8.5-10.1); Chloride 103 mmol/L (98-107); Creatinine, Serum 1.63 mg/dL (0.55-1.02); EST Glomerular Filtration Rate 32 mL/min (>60); Est Glom Filt Rate - Afr Amer 39 mL/min (>60); Estimated Creatinine Clearance 27.77 ml/min; Glucose 114 mg/dL (74-106); Potassium 4.3 mmol/L (3.5-5.1); Sodium Level 138 mmol/L (136-145)
[2020-11-01 11:02] LABS: Lactic Acid 0.9 mmol/L (0.4-1.9)
[2020-11-01 11:11] LABS: Mucous, Urine 0 SEEN /hpf (<or=2+); Red Blood Cells-Urine 0 SEEN /hpf (0-5)
[2020-11-01 11:19] LABS: Color, Urine Yellow (Yellow); Glucose, Dipstick Normal (Normal); Ketone-Dipstick Negative (Negative); Leukocyte Esterase-Dipstick 100 /ul (Negative); Nitrite-Dipstick Negative (Negative); Occult Blood-Urine Negative /ul (Negative); Protein-Dipstick Negative (Negative); Specific Gravity, Urine 1.005 (1.002-1.030); Urine Bilirubin Dipstick Negative (Negative); Urine Clarity Clear (Clear); Urine Urobilinogen Normal (Normal)
[2020-11-01 11:26] LABS: Squamous Epithelial Cells - UA 5-10 SEEN /hpf (5-10); White Blood Cells 0-5 SEEN /hpf (0-5)
[2020-11-01 11:27] LABS: Bacteria 1+ /hpf (None Seen)
[2020-11-01 12:20] VITALS: BP 115/47; PULSE 71; RESP 18; TEMP 37.3; O2SAT 97
== END 2020-11-01 12:59 | disposition home or self-care (01) ==
PROVIDERS: Emergency Provider Emergency Medicine; PCP Family Medicine
DX: D64.9 Anemia, unspecified (principal); R50.9 Fever, unspecified; R53.1 Weakness
CPT/HCPCS: 71045; 80048; 81001; 83605; 84484; 85025; 87040; 93005; 96360; 96361; 99285; J7030; A4216

== ENCOUNTER → 2020-11-04 13:18 | Outpatient (CLI) | payer MEDICARE, SELFPAY ==
[2020-11-01 09:44] VITALS: BMI 37.4
[2020-11-04 13:38] VITALS: BP 105/40; PULSE 72; RESP 18; TEMP 36.1; BMI 22.1
[2020-11-04] MEDS: Acetaminophen 325 MG Tablet 650 MG PO (13:46)
[2020-11-04] MEDS: 0.9% NaCl Peripheral Flush Adult/Peds IV (13:53)
[2020-11-04 14:39] VITALS: BP 128/42; PULSE 64; RESP 18; TEMP 36.4; O2SAT 97
[2020-11-04 15:36] VITALS: BP 137/47; PULSE 61; RESP 16; TEMP 36.3; O2SAT 97
[2020-11-04 16:48] VITALS: BP 132/50; PULSE 63; RESP 16; TEMP 36.4; O2SAT 98
== END ==
PROVIDERS: PCP Family Medicine; Referring Provider Internal Medicine Hematology & Oncology; Visit Provider Internal Medicine Hematology & Oncology
DX: Z51.89 Encounter for other specified aftercare (principal); D64.9 Anemia, unspecified
CPT/HCPCS: 36430; 86850; 86900; 86901; 86920; 86922; J7040; J7050; P9016; A4216

== ENCOUNTER 2020-11-07 10:35 | Outpatient (CLI) | payer MEDICARE, SELFPAY ==
[2020-11-04 13:38] VITALS: BMI 22.1
[2020-11-07 11:54] VITALS: BP 140/61; PULSE 67; RESP 14; TEMP 36.7; O2SAT 96
[2020-11-07] MEDS: 0.9% Saline Lock 10 ML Syringe IV (12:02)
[2020-11-07] MEDS: Acetaminophen 325 MG Tablet 650 MG PO (12:02)
[2020-11-07 12:09] VITALS: BP 119/61; PULSE 66; RESP 14; TEMP 36.6; O2SAT 98
[2020-11-07 13:09] VITALS: BP 145/55; PULSE 65; RESP 15; TEMP 36.5; O2SAT 95
--- NOTE | 2020-11-07 14:00 | NURSING ---
finished blood transfusion dc to home
== END 2020-11-07 14:01 ==
LOC: MEDOUTP 10:36 → PCU 10:37
PROVIDERS: PCP Family Medicine; Referring Provider Internal Medicine Hematology & Oncology; Visit Provider Internal Medicine Hematology & Oncology
DX: Z51.89 Encounter for other specified aftercare (principal); D64.9 Anemia, unspecified
CPT/HCPCS: 36430; 86850; 86900; 86901; 86920; 86922; J7040; P9016; A4216

== ENCOUNTER → 2020-12-17 09:40 | Outpatient (CLI) | payer MEDICARE, SELFPAY ==
[2020-12-11 09:55] VITALS: BMI 34.9
[2020-12-17 11:56] LABS: Thyroid Stim Hormone (TSH) 2.41 uIU/mL (0.358-3.74)
--- NOTE | 2020-12-18 10:39 | PFT ---
INTRODUCTION: The patient is an 80-year-old female that presents for pulmonary function studies secondary to a diagnosis of cardiomyopathy. Respiratory therapy reports good patient effort. Bronchodilators were used during testing. INTERPRETATION: Forced expiration spirometry demonstrates no evidence of a large airways obstructive ventilatory defect. There was no significant response to aerosolized bronchodilators. Spirograms are of good quality and plateau normally. Body plethysmography was performed and revealed a decreased TLC to 4.38 L, 79% of predicted, indicative of a mild restrictive ventilatory impairment. Diffusing capacity by single breath CO is reduced to 51% of predicted. 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
== END ==
PROVIDERS: PCP Family Medicine; Referring Provider Physician Assistant Medical; Visit Provider Physician Assistant Medical
DX: I42.8 Other cardiomyopathies (principal); E11.40 Type 2 diabetes mellitus 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 neuropathy, unspecified; I48.91 Unspecified atrial fibrillation; E78.5 Hyperlipidemia, unspecified
CPT/HCPCS: 36415; 84443; 94060; 94726; 94729

== ENCOUNTER 2021-12-13 10:30 | Outpatient (RCR) | payer MEDICARE, SELFPAY ==
--- NOTE | 2021-10-12 12:21 | HP.PTEVAL_ITS ---
Patient's Visit Information YENNIFER JARAMILLO is a 80 year old F referred to Physical Therapy by BRAYAN Pete with a diagnosis of R hip OA, DDD L-spine, spondylosis, sacroilitis, facet arthropathy. Date of Evaluation: 10/12/21 Physical Therapist: ROC Preston - Visit Plan Frequency: 2-3x /Week Duration: 2 Months Plan: 2-3X/ week for 8 weeks for LE strengthening, transfers such as stairs and sit to stands, gait training, posture, standing endurance, core stability with HEP. HEP: bridges, SKC with a towel - Subjective Pt reports that today she is having a lot of trouble. A year ago she had very low blood counts and has had a lot of infusion. SHe has pain on R groin that grabs her. She saw Ortho and saw the back Dr. The back Dr wanted to do a stimulation things and pain managment did injections in her hip and did nothing. It is not constant. She is able to do for herself as it comes and goes. Sometimes it is in her R groin or in her back. PT is only approved and not more shots or MRI until PT is complete. 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 She has 2 steps to get up steps into house with grab bars and has another walker in the house. She has high toilet and lift chair and a stool in her kitchen cause she struggles getting in and out of a chair. She is able to go out but has to have a friend to help her up out of the chair by pulling on her pants. So getting up and down out of the chair is an issue. She lives alone and she drives. She has fallen once since a year ago September when she got so weak. She had some PT [facility]. - Pain R hip pain Pain Intensity (Out of 10): 0 Pain Intensity Range: 8 back pain Pain Intensity (Out of 10): 0 Pain Intensity Range: 4 - Objective Gait: Walks with front wheeled walker with flexed trunk, short stride. Sit to stand: Uses full arms to get to legs underneath her and her trunk is flexed and then pt grabs ahold of the walker and then pushes self to erect trunk. Very weak in her legs and mostly arms. Pt really felt a stretch with SKC with the R leg (holding 5 sec X 5). Bridges.... 1/4 of the normal ROM and pt has to keep ankles close together or she has pain. LE MMT: B hip flex 3+/5, B knee ext 4- /5, B knee flex 4-/5, hip abd 3-/5 B. Pt struggled in standing at the walker to perform hip abd (worse with the R compared to the L). Sit to stand at mat table height... pt still needed to use arms on the mat to push self up and she still had a flexed trunk and then stood erect once hands were on the walker. Same with standing hip flexion at the walker. - Balance/Special Test Scores Oswestry Low Back Score: 21 - Goals Goal 1:: I HEP Goal Time Frame: 6-8 Weeks Goal 2:: Be able to sit to stand with not having to stand with trunk flexed at the hips until legs get under her and then extend trunk. Goal Time Frame: 6-8 Weeks Goal 3:: Be able to increase core strength to be able to stand and complete standing hip abd/flexion holding onto the walker 2 X 10 B with good posture. Goal Time Frame: 6-8 Weeks Goal 4:: Be able to walk back to the treatment room without getting SOB or LE fatigue Goal Time Frame: 6-8 Weeks - Rehabilitation Potential Rehabilitation Potential: Good - Anticipated Interventions Patient/Client Instruction: Educate patient on: Condition, Plan of Care For the Purpose of:: To decrease pain, To increase ROM, To improve nutrient delivery to tissue, To improve muscle performance and motor function, To improve ability to perform ADL's, To increase tolerance to activity/condition/position, To improve performance and independence with ADL's, To decrease level of supervision to perform tasks, To improve ability of physical actions for home /community/work/leisure, To improve gait and locomotor functions, To improve health of tissue, To increase flexibility/ROM, To improve balance, To improve safety with gait Therapeutic Exercise to Include: Strength training, Balance training, Postural training, Flexibilty training, Gait and locomotor training, Neuromotor development, Passive ROM, Active ROM, Dynamic Lumbar Stabilization, Scapular Strength/Stabilization For the Purpose of:: To decrease pain, To increase ROM, To improve nutrient delivery to tissue, To increase oxygenation perfusion, To improve muscle performance and motor function, To improve ability to perform ADL's, To increase tolerance to activity/condition/position, To improve performance and independence with ADL's, To decrease level of supervision to perform tasks, To improve ability of physical actions for home/community/work/leisure, To improve gait and locomotor functions, To improve health of tissue, To decrease soft tissue restriction, To increase flexibility/ROM, To improve endurance, To improve balance, To improve safety with gait Functional Training to Include: Gait training For the Purpose of:: To decrease pain, To improve muscle performance and motor function, To improve ability to perform ADL's, To increase tolerance to activity/condition/position, To improve performance and independence with ADL's, To decrease level of supervision to perform tasks, To improve ability of physical actions for home/community/work/leisure, To improve gait and locomotor functions, To increase flexibility/ROM, To improve endurance, To improve balance Thank you for the opportunity to evaluate your patient. For Medicare and Medicare HMO plans, please review the plan of care and approve it. It will need to be FAXED BACK to us at [phone] for Medicare purposes. For Medicare only, by signing this I certify the plan of care. Please let me know if there are questions or concerns regarding this plan of care. Physician Signature: Date:
--- NOTE | 2021-11-22 10:34 | HP.PTREVAL_ITS ---
Fabiola Boss, QASIM-C, It has been my pleasure to treat YENNIFER JARAMILLO over the last 9 visits for R hip OA, DDD L-spine, spondylosis, sacroilitis, facet arthropathy. Please see the progress note below for an update on the physical therapy plan of care! Subjective: Not sure of improvement. Is moving more and has learned things to carryover like how to trasnfer safely. Doing exericses at home every other day. Mostly bed exercises. Sleeping OK. Pain is to 5/10 in R groin and LB. Pain not a lot different than a month ago and tylenol still helps. Feels more secure and easier on trasnfers. Objective/Function: Pt uses wh walker to slowly ambulate. Able to stadn with poor confidence without AD for 5 seconds or so . Unable to progress L LE without AD due to R hip groin pain. Trasnfers out of chair with UE and slow and has to think about form but can do it I. Able to do standing at walker exericses with my cues today. R groin painful. Plan Plan: 2x/week x 4 weeks to cotninue mobility focussing on getting on standing HEP for LE and weight shift exericses, pregait, balance. New goals and fair prognosis for imprived mobility and to get on standing HEP Balance/Gait/Functional tests - Balance/Special Test Scores Oswestry Low Back Score: 29 TUG Test Time Seconds: 29 30 Second Chair Rise Test Seconds: 2 Goals Goal 1:: I HEP Goal Time Frame: 6-8 Weeks Goal Progress: needs stand Goal 2:: Be able to sit to stand with not having to stand with trunk flexed at the hips until legs get under her and then extend trunk. Goal Time Frame: 6-8 Weeks Goal Progress: Not Progressing Goal 3:: Be able to increase core strength to be able to stand and complete standing hip abd/flexion holding onto the walker 2 X 10 B with good posture. Goal Time Frame: 6-8 Weeks Goal Progress: Progressing Goal 4:: Be able to walk back to the treatment room without getting SOB or LE fatigue Goal Time Frame: 6-8 Weeks Goal Progress: Goal Met Goal 5:: Walk quicker and more secure. TUG 20 sec and 30 sec sit to stand 6 Goal Time Frame: 4-6 Weeks Goal Progress: NEW GOAL Anticipated Interventions Patient/Client Instruction: Educate patient on: Condition, Plan of Care For the Purpose of:: To decrease pain, To increase ROM, To improve nutrient delivery to tissue, To improve muscle performance and motor function, To improve ability to perform ADL's, To increase tolerance to activity/condition/position, To improve performance and independence with ADL's, To decrease level of supervision to perform tasks, To improve ability of physical actions for home/community/work/leisure, To improve gait and locomotor functions, To improve health of tissue, To increase flexibility/ROM, To improve balance, To improve safety with gait Therapeutic Exercise to Include: Strength training, Balance training, Postural training, Flexibilty training, Gait and locomotor training, Neuromotor development, Passive ROM, Active ROM, Dynamic Lumbar Stabilization, Scapular Strength/Stabilization For the Purpose of:: To decrease pain, To increase ROM, To improve nutrient delivery to tissue, To increase oxygenation perfusion, To improve muscle performance and motor function, To improve ability to perform ADL's, To increase tolerance to activity/condition/position, To improve performance and independ ence with ADL's, To decrease level of supervision to perform tasks, To improve ability of physical actions for home/community/work/leisure, To improve gait and locomotor functions, To improve health of tissue, To decrease soft tissue restriction, To increase flexibility/ROM, To improve endurance, To improve balance, To improve safety with gait Functional Training to Include: Gait training For the Purpose of:: To decrease pain, To improve muscle performance and motor function, To improve ability to perform ADL's, To increase tolerance to activit y/condition/position, To improve performance and independence with ADL's, To decrease level of supervision to perform tasks, To improve ability of physical actions for home/community/work/leisure, To improve gait and locomotor functions, To increase flexibility/ROM, To improve endurance, To improve balance Please do not hesitate to contact me at [phone] by phone or if you have questions or concerns regarding this new plan of care! Sincerely, [place], DPT, OCS, CSCS
--- NOTE | 2021-12-17 09:37 | HP.PTDCSUM ---
It has been my pleasure to treat YENNIFER JARAMILLO referred by BRAYAN Pete, with the diagnosis of R hip OA, DDD L-spine, spondylosis, sacroilitis, facet arthropathy for a total of 13 visit(s). Discharge Date: 12/13/21 Please see the following information for a summary of their discharge status. Subjective: Pt. reports overall still having pain, R groin pain, and low back pain. She reports having increased strength in her legs, but her pain is still unchanged. She is hopeful to get an MRI and injections to help with her pain allowing better participation in exercises and functional mobility. R hip pain Pain Intensity (Out of 10): 1 back pain Pain Intensity (Out of 10): 0 % Improvement: 30 Objective/Function: ROM: Pt. is very stiff and painful in her R hip: flexion 80deg increase NW, ext lacking 10deg increase NW, IR 0deg increase NW, ER 30deg increase NW. LUIMBAR SPINE: flexion min loss increase NW, extension max loss increase NW. MMT: distal BLEs 5/5 throughout. R hip: flexion 3-/5, ext 3-/5, abd 3-/5. GAIT: Pt. ambulates with FWW with flexed posture, R hip rotated back. Heavily uses FWW. Decreased step length bilaterally noted. Methodical gait pattern. TU.2seconds with FWW, very difficult to get in/out of chair. 30 sec sit to stand rep test reps with use of UEs. Goal 1:: I HEP Goal Progress: Goal Met Goal 2:: Be able to sit to stand with not having to stand with trunk flexed at the hips until legs get under her and then extend trunk. Goal Progress: Not Progressing Goal 3:: Be able to increase core strength to be able to stand and complete standing hip abd/flexion holding onto the walker 2 X 10 B with good posture. Goal Progress: Progressing Goal 4:: Be able to walk back to the treatment room without getting SOB or LE fatigue Goal Progress: Goal Met Goal 5:: Walk quicker and more secure. TUG 20 sec and 30 sec sit to stand 6 Goal Progress: Not Progressing Plan: Pt. to be DC to HEP and back to physician at this point in time. Discharge Comments: Pt. continues to be painful with most functional mobility. She reports being a little bit stronger in her LEs, but has not effected her pain much. She is hopeful to have an injection to possibly help with her pain thus allowing her to tolerate her functional mobility better. Pt. will be Dc to HEP and physician at this point in time. If there are questions or concerns regarding this patient's physical therapy, please feel free to call me at [phone]. Thank you for the referral of this patient. Sincerely, Kahlil Giordano DPT Balance/Gait/Functional tests - Balance/Special Test Scores Oswestry Low Back Score: 29 TUG Test Time Seconds: 29 30 Second Chair Rise Test Seconds: 2
== END 2021-12-13 19:00 | disposition home or self-care (01) ==
LOC: PT 10:30
PROVIDERS: PCP Family Medicine; Referring Provider Nurse Practitioner Family; Visit Provider Nurse Practitioner Family
DX: M51.17 Intervertebral disc disorders with radiculopathy, lumbosacral region (principal); M46.1 Sacroiliitis, not elsewhere classified; M53.3 Sacrococcygeal disorders, not elsewhere classified; M46.96 Unspecified inflammatory spondylopathy, lumbar region; M16.11 Unilateral primary osteoarthritis, right hip; M47.27 Other spondylosis with radiculopathy, lumbosacral region
CPT/HCPCS: 97110; 97161; 97164

== ENCOUNTER 2022-03-27 18:45 | Emergency (ER) | payer MEDICARE, SELFPAY ==
[2022-03-27 18:47] VITALS: BP 169/67; PULSE 96; RESP 19; TEMP 37.6; O2SAT 98; BMI 32.5
--- NOTE | 2022-03-27 19:35 | EX.ED.VIS.UR ---
HPI HPI - URI History of Present Illness Chief Complaint: Cold Sx Narrative Narrative: 81-year-old female with cough, fevers, chills, body aches since yesterday. She states she took some generic DayQuil today because the Coricidin she was using yesterday did not seem to help. She notes her fever got up to 103. She states she forgot to take Tylenol for her fever. She states she cannot take ibuprofen because of her kidney issues. Patient states he has a dry cough and nasal congestion as well. She does not have any chest pain. She is not short of breath. She denies nausea or vomiting. She is eating and drinking although this is somewhat diminished. No urinary symptoms. No abdominal pain. ROS ROS ED Constitutional Constitutional ED: Reports chills and fever(s) Eyes Eyes: Denies change in vision ENT ENT ED: Reports rhinorrhea and sore throat Cardiovascular Cardiovascular: Denies chest pain or palpitations Respiratory/Chest Respiratory/Chest: Reports cough; Denies dyspnea Gastrointestinal Gastrointestinal: Denies abdominal pain, nausea or vomiting Genitourinary Genitourinary ED: Denies dysuria or hematuria Musculoskeletal Musculoskeletal: Reports myalgias; Denies back pain Integumentary Denies abscess or Abrasions Neurologic Neurologic: Reports headache(s); Denies paresthesias or weakness Psychiatric Psychiatric: Denies anxiety or depression [facility] Medical History TAWANDA (acute kidney injury) Anemia Cardiomyopathy in disease classified elsewhere Cholecystitis with cholelithiasis Choledocholithiasis with acute cholecystitis Dehydration Diarrhea Generalized anxiety disorder Generalized osteoarthritis Hyperlipidemia Paroxysmal atrial fibrillation Paroxysmal atrial flutter Type 2 diabetes mellitus Home Medications allopurinol 100 mg tablet 200 mg PO DAILYCM gout 07/04/13 [History Last Taken 08/18/20] glimepiride 4 mg tablet 2 mg PO DAILY diabetes 07/04/13 [History Last Taken 08/18/20] lansoprazole 30 mg capsule,delayed release 30 mg PO DAILY GERD 07/04/13 [History Last Taken 08/18/20] colestipol 1 gram tablet 1 g PO BIDCM cholesterol 02/05/15 [History Last Taken 08/18/20] multivitamin with iron 1 ea PO DAILY supplement 02/05/15 [History Last Taken 08/18/20] pioglitazone 15 mg tablet 30 mg PO QHS diabetes 03/29/19 [History Last Taken 08/18/20] cholecalciferol (vitamin D3) 1,250 mcg (50,000 unit) capsule 50,000 unit PO TU bones 05/07/19 [History Last Taken 08/18/20] clotrimazole 1 % vaginal cream 1 appful vaginal BID PRN itching/irritation 05/07/19 [History Last Taken Unknown] dulaglutide 1.5 mg/0.5 mL subcutaneous pen injector 1.5 mg SQ PONCE diabetes 07/24/20 [History Last Taken 08/16/20] Triamcinolone 0.1% Cream [Kenalog] 1 applic topical DAILY PRN Itching 08/19/20 [History Last Taken Unknown] amiodarone 200 mg tablet 200 mg PO DAILY heart 08/21/20 [History Last Taken Unknown] acetaminophen 500 mg tablet 1,000 mg PO Q6H PRN Pain Score 1-10 08/26/20 [Rx Last Taken Unknown] polysaccharide iron complex 150 mg iron capsule 150 mg PO DAILY #30 CAPSULES 08/26/20 [Rx Last Taken Unknown] levothyroxine 137 mcg tablet 137 mcg PO DAILY 10/22/20 [History Last Taken Unknown] carvedilol 25 mg tablet 25 mg PO BID blood pressure 12/11/20 [History Last Taken Unknown] cyanocobalamin (vitamin B-12) 1,000 mcg/mL injection solution 1,000 mcg IM QMONTH 12/11/20 [History Last Taken Unknown] folic acid 1 mg tablet 1 mg PO DAILY 12/11/20 [History Last Taken Unknown] psyllium husk 0.52 gram capsule (Fiber (psyllium husk)) 1.04 g PO DAILY 12/11/20 [History Last Taken Unknown] gabapentin 300 mg capsule 300 mg PO TID neuropathy 03/02/22 [History Last Taken Unknown] Allergy/AdvReac Type Severity Reaction Status Date / Time iodine Allergy Hives Verified 03/27/22 18:49 simvastatin Allergy Other Verified 03/27/22 18:49 Hmylpcl-AJT-CmL Reductase AdvReac Severe mylagias Verified 03/27/22 18:49 Inhibitor [Bcqthwr-Dhi-Ytl Reductase Inhibitor] Family History Brother Heart disease Mother Heart disease Father Heart disease Surgical History History of carpal tunnel surgery History of cataract surgery History of cholecystectomy History of knee replacement History of tonsillectomy Social History Smoking Status: Never smoker alcohol intake: never substance use type: does not use EXAM Physical Exam Const Vital Signs: 03/27/22 18:47 03/27/22 18:59 03/27/22 19:00 Temperature 99.6 F H Temperature Source Temporal Pulse Rate 96 Respiratory Rate 19 H Respiratory Effort Normal Non-Labored Normal Non-Labored Respiratory Depth Normal Respiratory Pattern Normal Normal Blood Pressure 169/67 H Blood Pressure Mean 101 Pulse Ox 98 Oxygen Delivery Method Room Air Positive well nourished General Appearance ED: NAD; Negative for pallor HEENT Reports moist mucous membranes normocephalic and atraumatic Throat: posterior oropharynx normal Eyes PERRL and EOMs intact bilaterally Resp normal respiratory effort and clear to auscultation bilaterally Auscultation: Negative for rales, rhonchi or wheezes Cardio Rate: regular rate Rhythm: regular rhythm GI non-tender Neuro oriented x3 and CN's II-XII intact bilaterally Sensorium / Orientation: alert Motor Exam: strength 5/5 throughout Psych mental status grossly normal Skin General Skin Exam: Negative for jaundice or pallor MDM MDM MDM Narrative Medical decision making narrative: 81-year-old female presenting with cough, fevers, chills. She does not have any chest pain or shortness of breath. She denies abdominal pain, nausea, vomiting. No urinary complaints. She states that this all started yesterday. She has been taking generic DayQuil throughout the day and noted that his fever came up but she has not been taking any Tylenol. Patient states that this reminds her of a time when the urgent care told her she had possible pneumonia. At that point she had some redness on her feet and was on an antibiotic which she cannot recall and they told her to continue this antibiotic to cover for the possible pneumonia. Followed up outpatient with her primary care physician who repeated x-rays and this was normal. She has been well prior to the last couple days. She does report that she has 2 grandchildren that are both mildly ill with runny noses. She was around them right before her symptoms started. They have not been tested for anything. The patient tested her cell for COVID 2 times today and both were negative. I offered to test her for influenza but she declines. I also offered her chest x-ray but she does not want this either. I did tell her that her symptoms are most likely viral in nature. Her lungs are clear to auscultation bilaterally. Heart regular rate and rhythm. She is not hypoxic, tachypneic. She is well-appearing. I counseled her the use of Tylenol and drink plenty of fluids. Return precautions were discussed. Patient stable for discharge. Impression: 1. Viral syndrome Lab Data Attestation: I reviewed the patient's lab results. Discharge Plan Triage Chief Complaint: Cold Sx ED Provider: Kasi Herrera Dx/Rx/DC Orders Instructions: ED Viral Syndrome (Adult) Prescriptions: No Action pioglitazone 15 mg tablet 30 mg PO QHS cholecalciferol (vitamin D3) 50,000 unit capsule 50,000 unit PO TU clotrimazole 1 % cream 1 appful VAGINAL BID PRN (Reason: itching/irritation) folic acid 1 mg tablet 1 mg PO DAILY Label Comments: take 1 tablet by mouth once daily cyanocobalamin (vitamin B-12) 1,000 mcg/mL solution 1,000 mcg IM QMONTH psyllium husk [Fiber (psyllium husk)] 0.52 gram capsule 1.04 g PO DAILY carvedilol 25 mg tablet 25 mg PO BID allopurinol 100 MG tablet 200 mg PO DAILYCM glimepiride 4 MG tablet 2 mg PO DAILY lansoprazole 30 MG capsule 30 mg PO DAILY gabapentin 300 mg capsule 300 mg PO TID colestipol 1 GM tablet 1 g PO BIDCM multivitamin with iron 1 EACH tablet 1 ea PO DAILY dulaglutide 1.5 MG/0.5 ML pen injector 1.5 mg SQ PONCE Triamcinolone 0.1% Cream [Kenalog] 1 APPLIC Tube 1 applic TOPICAL DAILY PRN (Reason: Itching) amiodarone 200 MG tablet 200 mg PO DAILY polysaccharide iron complex 150 MG capsule 150 mg PO DAILY Qty: 30 0RF acetaminophen 500 MG tablet 1,000 mg PO Q6H PRN (Reason: Pain Score 1-10) 0RF levothyroxine 137 mcg tablet 137 mcg PO DAILY Primary Care Provider: Stefan Gordon Referrals: Stefan Gordon MD [Primary Care Provider] - Disposition Disposition: Home, Self Care
[2022-03-27 19:47] VITALS: BP 138/78; PULSE 77; RESP 16; TEMP 36.6; O2SAT 98
== END 2022-03-27 19:52 | disposition home or self-care (01) ==
LOC: ED 19:43
PROVIDERS: Emergency Provider Student in an Organized Health Care Education/Training Program; PCP Family Medicine; Visit Provider Student in an Organized Health Care Education/Training Program
DX: B34.9 Viral infection, unspecified (principal); I42.9 Cardiomyopathy, unspecified; E11.9 Type 2 diabetes mellitus without complications; R50.9 Fever, unspecified; R05.9 Cough, unspecified; Z79.84 Long term (current) use of oral hypoglycemic drugs; Z79.890 Hormone replacement therapy; Z79.899 Other long term (current) drug therapy
CPT/HCPCS: 99283

== ENCOUNTER → 2022-09-01 | Outpatient (CLI) | payer MEDICARE, SELFPAY ==
--- NOTE | 2022-09-01 16:03 | PFTCOMP ---
COMPLETE PULMONARY FUNCTION TEST INTERPRETATION Brief HPI: Patient is an 81-year-old female, currently under the care of Trina Moraes, who presents to [facility] for complete pulmonary function tests secondary to diagnosis of high risk med use. Respiratory therapist reports good effort and reproducible results. Interpretation: Forced expiration spirometry shows no large airways obstructive ventilatory defect with an FEV1 of 79% predicted. There is no significant bronchodilator response by strict ATS criteria. Spirograms are of good quality and plateau slowly, indicating slowly emptying areas of the lungs. The respiratory flow volume loop shows decreased expiratory flow rates at high lung volumes consistent with small airways obstruction. Lung volumes by body plethysmography show a decreased total lung capacity at 4.71 L, 85% predicted. All other lung volumes are reduced symmetrically. Diffusion capacity by carbon monoxide is normal at 86% predicted. The airway resistance is slightly elevated. Compared to previous pulmonary function tests from 12/17/2020, there is been a significant improvement in FVC, FEV1 and DLCO by 21%, 20% and 44% respectively. Impression: Mild restrictive ventilatory defect with relatively preserved diffusion capacity and some stigmata of small airways disease. There has been significant improvement compared to previous testing
== END | disposition home or self-care (01) ==
LOC: PSN 08:12
PROVIDERS: PCP Family Medicine; Referring Provider Physician Assistant Medical; Visit Provider Physician Assistant Medical
DX: Z79.899 Other long term (current) drug therapy (principal)
CPT/HCPCS: 94060; 94726; 94729

== ENCOUNTER → 2022-10-13 | Outpatient (CLI) | payer MEDICARE, SELFPAY ==
--- NOTE | 2022-10-13 11:02 | EKG12_ITS ---
Test Reason : PREOP Blood Pressure : / mmHG Vent. Rate : 067 BPM Atrial Rate : 067 BPM P-R Int : 000 ms QRS Dur : 090 ms QT Int : 434 ms P-R-T Axes : 000 -01 001 degrees QTc Int : 458 ms Accelerated Junctional rhythm Abnormal ECG Confirmed by MARY ROTHMAN, DEVI ([id number]), digital editor EMERSON WHITE ([id number]) on 10/14/2022 8:16:55 AM Referred By: GABRIELA Confirmed By:DEVI HERNANDEZ MD
[2022-10-13 11:27] LABS: Absolute Lymphocyte Count 1.05 X10^3/uL (0.83-4.51); Absolute Neutrophil Count 4.3 X10^3/uL (2.0-7.7); Basophil# 0.03 X10^3/uL; Basophil% 0.5 % (0-1); Eosinophils% 3.4 % (0-5); Hematocrit 34.8 % (37-47); Hemoglobin 10.5 g/dL (12.0-15.0); Lymphocyte # 1.05 X10^3/ul (0.83-4.51); Lymphocyte % 17.7 % (19-41); Mean Corp Hgb Conc 30.2 g/dL (32-36); Mean Corpuscular Hgb 29.4 pg (27.0-32.0); Mean Corpuscular Volume 97.5 fL (81-99); Mean Platelet Vol. 10.7 fl (6.2-12.0); Monocyte# 0.34 X10^3/uL; Monocyte% 5.7 % (0-10); NRBC Flagged by Analyzer 0 % (0-5); Neutrophil # 4.28 X10^3/uL (2.7-7.7); Neutrophil % 72.2 % (47-70); Platelet Count 216 K/mm3 (150-450); RBC Distribution Width CV 15.1 % (11.6-14.6); RBC Distribution Width SD 54.4 fl (35.1-43.9); Red Blood Count 3.57 M/mm3 (4.2-5.4); White Blood Count 5.9 K/mm3 (4.4-11.0)
[2022-10-13 11:41] LABS: International Normalized Ratio 1.1
[2022-10-13 11:42] LABS: Partial Thromboplast Time 32.3 Seconds (24.1-36.2)
[2022-10-13 11:52] LABS: Hemoglobin A1c 5.7 % (3.8-5.6)
[2022-10-13 11:59] LABS: Albumin, Serum 3.4 g/dL (3.2-5.0); Anion Gap 3 (5-15); BUN 37 mg/dL (7-18); BUN/Creat Ratio 27.2 RATIO (10-20); Calcium,Total 9.1 mg/dL (8.5-10.1); Chloride 110 mmol/L (98-107); Creatinine, Serum 1.36 mg/dL (0.55-1.02); EST Glomerular Filtration Rate 40 mL/min (>60); Est Glom Filt Rate - Afr Amer 48 mL/min (>60); Glucose 90 mg/dL (74-106); Potassium 4.2 mmol/L (3.5-5.1); Sodium Level 142 mmol/L (136-145)
[2022-10-13 12:05] LABS: Magnesium 1.8 mg/dL (1.6-2.6); Thyroid Stim Hormone (TSH) 1.82 uIU/mL (0.358-3.74)
== END | disposition home or self-care (01) ==
LOC: PAT 11-09 13:17
PROVIDERS: Anesthesiology; PCP Family Medicine; Visit Provider Specialist
DX: Z01.818 Encounter for other preprocedural examination (principal)
CPT/HCPCS: 36415; 80048; 82040; 83036; 83735; 84443; 85025; 85610; 85730; 87081; 93005

== ENCOUNTER 2022-10-31 15:55 | Emergency (ER) | payer MEDICARE, SELFPAY ==
[2022-10-31 15:56] VITALS: BP 141/61; PULSE 83; RESP 18; TEMP 36.8; O2SAT 97
[2022-10-31 16:07] VITALS: O2SAT 97; BMI 33.2
[2022-10-31] MEDS: Ipratropium/Albuterol Sulfate 3 ML AMPUL.NEB INHALATION (16:24)
[2022-10-31 16:26] VITALS: PULSE 81; RESP 20
[2022-10-31 16:33] LABS: Absolute Lymphocyte Count 1.63 X10^3/uL (0.83-4.51); Absolute Neutrophil Count 6.5 X10^3/uL (2.0-7.7); Basophil# 0.02 X10^3/uL; Basophil% 0.2 % (0-1); Eosinophil# 0.18 X10^3/uL; Hematocrit 29.9 % (37-47); Hemoglobin 9.7 g/dL (12.0-15.0); Lymphocyte # 1.63 X10^3/ul (0.83-4.51); Mean Corp Hgb Conc 32.4 g/dL (32-36); Mean Corpuscular Hgb 30.1 pg (27.0-32.0); Mean Corpuscular Volume 92.9 fL (81-99); Mean Platelet Vol. 9.6 fl (6.2-12.0); Monocyte# 0.68 X10^3/uL; Monocyte% 7.5 % (0-10); NRBC Flagged by Analyzer 0 % (0-5); Neutrophil # 6.46 X10^3/uL (2.7-7.7); Neutrophil % 71.3 % (47-70); Platelet Count 189 K/mm3 (150-450); RBC Distribution Width CV 14.8 % (11.6-14.6); RBC Distribution Width SD 50.2 fl (35.1-43.9); Red Blood Count 3.22 M/mm3 (4.2-5.4); White Blood Count 9.1 K/mm3 (4.4-11.0)
--- NOTE | 2022-10-31 16:35 | RAD_ITS ---
STUDY: X-RAY CHEST REASON FOR EXAM: Female, 82 years old. Dyspnea TECHNIQUE: Frontal and lateral views of the chest. COMPARISON: 11/01/2020. FINDINGS: The lungs are clear and expanded. There is no demonstrated pleural abnormality. Normal size heart. Normal mediastinum and radames. Normal visualized pulmonary arteries. Normal visualized aortic arch and descending thoracic aorta. Normal visualized thoracic spine. Normal visualized ribs, clavicles, and shoulders. There is no demonstrated abnormality of the visualized soft tissue structures of the upper abdomen. RAD/Chest PA and Lateral IMPRESSION: Normal x-ray examination of the chest. Electronically Signed: Andrew Cooper MD at 17:24 EDT ,
--- NOTE | 2022-10-31 16:41 | EDS_ITS ---
HPI History of Present Illness Chief Complaint: Shortness of Breath Informant: patient Onset/Context/Timing Onset: Weeks Context: gradual Timing: Continuous Quality: Positive for Dyspnea on exertion Worsened by: Exertion Relieved by: Rest Associated Symptoms fever and subjective; Negative for cough, rhinorrhea, post nasal drip, ear pain, sore throat, chills or sweats Chest Pain: Positive for None Narrative Narrative: Patient presents with shortness of breath that has been getting worse over the past few weeks. Patient states she recently started physical therapy and noticed that her shortness of breath became worse since that time. Patient states she feels weak in her legs. Patient states she was recently diagnosed with pneumonia and was put on prednisone and doxycycline. Patient states she recently finished the prednisone but is still taking the doxycycline. Patient admits to some subjective fevers. Patient denies any sore throat, rhinorrhea, or cough. Patient states her breathing is worse with walking from her kitchen to her living room which is less than 15 feet. Patient states her breathing is better when she is able to stop and rest. PE Risk Factors: Negative for Cancer, OCP + Smoking + > 35, Prior DVT or PE, Recent immobilization, Recent surgery or Recent travel [facility] Medical History TAWANDA (acute kidney injury) Anemia Arthritis Cardiology follow-up encounter Cardiomyopathy in disease classified elsewhere Cholecystitis with cholelithiasis Choledocholithiasis with acute cholecystitis Chronic kidney disease CPAP (continuous positive airway pressure) dependence Dehydration Diarrhea Generalized anxiety disorder Generalized osteoarthritis History of atrial fibrillation History of echocardiogram History of hiatal hernia History of renal disease History of stress test Hyperlipidemia Non-smoker Paroxysmal atrial fibrillation Paroxysmal atrial flutter Post-menopausal Sleep apnea Thyroid disease Type 2 diabetes mellitus Walker as ambulation aid Wears glasses Wears hearing aid Home Medications allopurinol 100 mg tablet 200 mg PO DAILYCM gout 07/04/13 [History Last Taken 08/18/20] lansoprazole 30 mg capsule,delayed release 30 mg PO DAILY GERD 07/04/13 [History Last Taken 08/18/20] pioglitazone 15 mg tablet 30 mg PO QHS diabetes 03/29/19 [History Last Taken 08/18/20] cholecalciferol (vitamin D3) 1,250 mcg (50,000 unit) capsule 50,000 unit PO TU bones 05/07/19 [History Last Taken 08/18/20] clotrimazole 1 % vaginal cream 1 appful vaginal BID PRN itching/irritation 05/07/19 [History Last Taken Unknown] dulaglutide 1.5 mg/0.5 mL subcutaneous pen injector 1.5 mg SQ PONCE diabetes 07/24/20 [History Last Taken 08/16/20] amiodarone 200 mg tablet 200 mg PO DAILY heart 08/21/20 [History Last Taken Unknown] acetaminophen 500 mg tablet 1,000 mg PO Q6H PRN Pain Score 1-10 08/26/20 [Rx Last Taken Unknown] levothyroxine 137 mcg tablet 137 mcg PO DAILY 10/22/20 [History Last Taken Unknown] carvedilol 25 mg tablet 25 mg PO BID blood pressure 12/11/20 [History Last Taken Unknown] cyanocobalamin (vitamin B-12) 1,000 mcg/mL injection solution 1,000 mcg IM QMONTH 12/11/20 [History Last Taken Unknown] psyllium husk 0.52 gram capsule (Fiber (psyllium husk)) 1.04 g PO DAILY 12/11/20 [History Last Taken Unknown] gabapentin 300 mg capsule 300 mg PO TID neuropathy 03/02/22 [History Last Taken Unknown] Colestid 1 gm PO/SL BID 03/09/22 [History Last Taken Unknown] Ferrex 150 300 mg PO/SL DAILY 03/09/22 [History Last Taken Unknown] Prevacid 30 mg PO/SL DAILY 03/09/22 [History Last Taken Unknown] acetaminophen 1,000 mg PO/SL Q8H PRN PRN Back Pain 03/09/22 [History Last Taken Unknown] amiodarone 200 mg PO/SL DAILY 03/09/22 [History Last Taken Unknown] cholecalciferol (vitamin D3) 50,000 units PO/SL QWEEK 03/09/22 [History Last Taken Unknown] clotrimazole 1 applic transdermal BID PRN Itching 03/09/22 [History Last Taken Unknown] folic acid 1 mg PO/SL DAILY 03/09/22 [History Last Taken Unknown] glimepiride 2 mg PO/SL DAILY 03/09/22 [History Last Taken Unknown] multivitamin with iron 1 tablet PO/SL DAILY 03/09/22 [History Last Taken Unknown] amlodipine 2.5 mg tablet 2.5 mg PO DAILY 08/22/22 [History Last Taken Unknown] prednisone 10 mg tablet 10 mg PO UD #33 tabs 10/31/22 [Rx Last Taken Unknown] Allergy/AdvReac Type Severity Reaction Status Date / Time iodine Allergy Hives Verified 10/31/22 15:56 simvastatin Allergy Other Verified 10/31/22 15:56 Ecdchnu-RTT-WiI Reductase AdvReac Severe mylagias Verified 10/31/22 15:56 Inhibitor [Xqenrqt-Flr-Pfq Reductase Inhibitor] Family History Brother Heart disease Mother Heart disease Father Heart disease Surgical History History of carpal tunnel surgery History of cataract surgery History of cholecystectomy History of knee replacement History of tonsillectomy Social History Smoking Status: Never smoker alcohol intake: never substance use type: does not use ROS ROS ED Constitutional Constitutional ED: Denies chills or fever(s) Eyes Eyes: Denies blurry vision or change in vision ENT ENT ED: Denies rhinorrhea or sore throat Cardiovascular Cardiovascular: Denies chest pain or palpitations Respiratory/Chest Respiratory/Chest: Reports dyspnea; Denies cough Gastrointestinal Gastrointestinal: Denies nausea or vomiting Genitourinary Genitourinary ED: Denies dysuria or hematuria Musculoskeletal Musculoskeletal: Denies back pain or neck pain Integumentary Denies abscess or rash Neurologic Neurologic: Reports weakness; Denies headache(s) Allergic/Immunologic Allergic/Immunologic ED: Denies mouth swelling or urticaria EXAM Physical Exam Const Vital Signs: 10/31/22 15:56 10/31/22 16:07 10/31/22 16:26 Temperature 98.2 F Temperature Source Temporal Pulse Rate 83 81 Respiratory Rate 18 20 H Respiratory Effort Short of Breath Respiratory Pattern Normal Tachypnea Blood Pressure 141/61 H Blood Pressure Mean 87 Pulse Ox 97 Oxygen Delivery Method Room Air Room Air 10/31/22 16:55 10/31/22 17:15 Temperature 98 F 96 F L Temperature Source Temporal Temporal Pulse Rate 81 80 Respiratory Rate 21 H 12 Respiratory Effort Respiratory Pattern Blood Pressure 144/72 H 131/58 H Blood Pressure Mean 96 82 Pulse Ox 93 93 Oxygen Delivery Method Room Air Room Air Positive well nourished and well developed General Appearance ED: well developed HEENT Reports moist mucous membranes Neck supple and no JVD Resp normal respiratory effort and clear to auscultation bilaterally Cardio regular rate and regular rhythm GI normal to inspection, nondistended, normoactive bowel sounds and non-tender Palpation: soft Extremity normal to inspection General Extremety ED: Yes edema; Negative for tenderness General Extremity: edema bilateral lower extremity Details: trace Neuro oriented x3, CN's II-XII intact bilaterally and no sensory deficits noted Sensorium / Orientation: alert Motor Exam: strength 5/5 throughout Psych mental status grossly normal Skin no rashes or lesions noted MDM MDM MDM Narrative Medical decision making narrative: Differential diagnosis includes pneumonia, congestive heart failure, pneumothorax, cardiac dysrhythmia, cardiac ischemia, COPD, COVID-19 infection, influenza infection, and other viral infections. Chest x-ray will be obtained to assess for pneumonia, congestive heart failure, and pneumothorax. EKG will be obtained to assess for cardiac dysrhythmia and cardiac ischemia. CBC will be obtained to assess for anemia and leukocytosis. Basic metabolic profile will be obtained to assess for electrolyte abnormality and renal function. High-sens itivity troponin will be obtained to assess for cardiac ischemia. BNP will be obtained to assess for congestive heart failure. COVID-19 rapid antigen will be obtained to assess for COVID infection. Influenza A and influenza B antigens will be obtained to assess for influenza infection. History & Record Review Discussion w/independent historian: Family Additional record(s) reviewed:: Prior labs Lab Data Attestation: I reviewed the patient's lab results. Lab results narrative: CBC was reviewed. There is a mild anemia with a hemoglobin of 9.7 and hematocrit 29.9. Basic metabolic profile was reviewed. BUN was 48 and cre atinine was 1.45. This is consistent with prior results. High-sensitivity troponin was reviewed and was normal at 80. BNP was reviewed and was normal at 77.8. COVID-19 rapid antigen was reviewed and was negative. Influenza A and influenza B antigens were reviewed and were negative. Labs: Laboratory Results - last 24 hr 10/31/22 10/31/22 10/31/22 16:24 16:24 16:24 WBC 9.1 RBC 3.22 L Hgb 9.7 L Hct 29.9 L MCV 92.9 MCH 30.1 MCHC 32.4 RDW Std Deviation 50.2 H RDW Coeff of Melanie 14.8 H Plt Count 189 MPV 9.6 Immature Gran % (Auto) 1.000 H Neut % (Auto) 71.3 H Lymph % (Auto) 18.0 L Emanuel % (Auto) 7.5 Eos % (Auto) 2.0 Baso % (Auto) 0.2 Absolute Neuts (auto) 6.5 Absolute Lymphs (auto) 1.63 Nucleated RBC % 0 Sodium 139 Potassium 4.9 Chloride 106 Carbon Dioxide 27.0 Anion Gap 6 BUN 48 H Creatinine 1.45 H Estim Creat Clear Calc 29.09 Est GFR (MDRD) Af Amer 45 L Est GFR (MDRD) Non-Af 37 L BUN/Creatinine Ratio 33.1 H Glucose 151 H Calcium 8.9 Troponin I High Sens 8 B-Natriuretic Peptide 77.8 Radiography Chest X-Ray - ED: 2 View, Read by ED Physician, Read by Radiologist and No Acute Disease Diagnostic Testing: Clinical Impression(s) from Imaging Studies Chest X-Ray 10/31/22 16:35 IMPRESSION: Normal x-ray examination of the chest. Electronically Signed: Andrew Cooper MD at 17:24 EDT , PA and lateral chest x-ray was obtained. There are 2 views. On my independent interpretation, lung erickson show bibasilar atelectasis. There is normal cardiac silhouette. Bony thorax is normal. There is no acute process noted. Radiologist also interpreted the x-ray and agrees. EKG Initial EKG: Attestation: I personally reviewed and interpreted this EKG as follows: Interpretation: Sinus Rhythm (83) and Non-Specific ST Changes Comments: EKG was obtained. On my independent interpretation, it showed a normal sinus rhythm with a rate of 83. NH interval, QRS interval, and QTc intervals were all normal. [place] was normal. There his left ventricular hypertrophy with nonspecific ST-T wave changes. Prior EKG tracings: available for review Prior: Unchanged (10/13/2022) Treatment and Re-Evaluation :: Patient was given a DuoNeb aerosol here. Patient was feeling better on reevaluation except for she developed a mild headache. Patient was advised of her findings. Patient was given dose of Tylenol for her headache. Patient was given a dose of prednisone here. Patient was given a tapering course of prednisone. Patient was instructed to follow-up with her primary care physician in 5 to 7 days. Patient was instructed to return if worse in any way. Patient understood and was agreeable with the plan. All questions were answered. Discharge Plan Triage Chief Complaint: Shortness of Breath Other Complaint: Cough Fever Weakness ED Provider: Los Campbell Dx/Rx/DC Orders Clinical Impression: Dyspnea, Anemia, Type 2 diabetes mellitus, HTN (hypertension) Instructions: ED Dyspnea Prescriptions: New prednisone 10 mg tablet 10 mg PO UD Qty: 33 0RF Rx Instructions: Take 4 tablets daily for 3 days, then 3 daily for 3 days, then 2 daily for 3 days, then 1 a day for 3 days then 1 QOD for 3 doses. No Action pioglitazone 15 mg tablet 30 mg PO QHS cholecalciferol (vitamin D3) 50,000 unit capsule 50,000 unit PO TU clotrimazole 1 % cream 1 appful VAGINAL BID PRN (Reason: itching/irritation) cyanocobalamin (vitamin B-12) 1,000 mcg/mL solution 1,000 mcg IM QMONTH psyllium husk [Fiber (psyllium husk)] 0.52 gram capsule 1.04 g PO DAILY carvedilol 25 mg tablet 25 mg PO BID amlodipine 2.5 mg tablet 2.5 mg PO DAILY allopurinol 100 MG tablet 200 mg PO DAILYCM lansoprazole 30 MG capsule 30 mg PO DAILY gabapentin 300 mg capsule 300 mg PO TID dulaglutide 1.5 MG/0.5 ML pen injector 1.5 mg SQ PONCE amiodarone 200 MG tablet 200 mg PO DAILY acetaminophen 500 MG tablet 1,000 mg PO Q6H PRN (Reason: Pain Score 1-10) 0RF levothyroxine 137 mcg tablet 137 mcg PO DAILY Colestid 1 gram tablet 1 gm PO/SL BID Ferrex 150 150 mg capsule 300 mg PO/SL DAILY Rx Instructions: Take 2 capsules at night Prevacid 30 mg capsule 30 mg PO/SL DAILY acetaminophen 500 mg tablet 1,000 mg PO/SL Q8H PRN PRN (Reason: Back Pain) amiodarone 200 mg tablet 200 mg PO/SL DAILY cholecalciferol (vitamin D3) 50,000 U capsule 50,000 units PO/SL QWEEK clotrimazole 1 % cream 1 applic transdermal BID PRN (Reason: Itching) folic acid 1 mg tablet 1 mg PO/SL DAILY glimepiride 2 mg tablet 2 mg PO/SL DAILY multivitamin with iron capsule 1 tablet PO/SL DAILY Primary Care Provider: Stefan Gordon Referrals: Stefan Gordon MD [Primary Care Provider] - 3-5 Days Disposition Disposition: Home, Self Care
[2022-10-31 16:55] VITALS: BP 144/72; PULSE 81; RESP 21; TEMP 36.6; O2SAT 93
[2022-10-31 16:57] LABS: Anion Gap 6 (5-15); BUN 48 mg/dL (7-18); BUN/Creat Ratio 33.1 RATIO (10-20); Calcium,Total 8.9 mg/dL (8.5-10.1); Chloride 106 mmol/L (98-107); Creatinine, Serum 1.45 mg/dL (0.55-1.02); EST Glomerular Filtration Rate 37 mL/min (>60); Est Glom Filt Rate - Afr Amer 45 mL/min (>60); Estimated Creatinine Clearance 29.09 ml/min; Glucose 151 mg/dL (74-106); Potassium 4.9 mmol/L (3.5-5.1); Sodium Level 139 mmol/L (136-145); Troponin-I HS 8 pg/mL (3.0-54.0)
[2022-10-31 17:03] LABS: BNP,B-Type NATRIURETIC PEPTIDE 77.8 pg/mL (0-100)
[2022-10-31 17:15] VITALS: BP 131/58; PULSE 80; RESP 12; TEMP 35.5; O2SAT 93
[2022-10-31] MEDS: Acetaminophen 500 MG Tablet 1000 MG PO (18:12)
[2022-10-31] MEDS: predniSONE 20 MG Tablet 40 MG PO (18:13)
[2022-10-31 18:17] VITALS: BP 139/57; PULSE 87; RESP 19; O2SAT 95
== END 2022-10-31 18:34 | disposition home or self-care (01) ==
PROVIDERS: Emergency Provider Emergency Medicine; PCP Family Medicine; Visit Provider Emergency Medicine
DX: R06.00 Dyspnea, unspecified (principal); I42.9 Cardiomyopathy, unspecified; E11.22 Type 2 diabetes mellitus 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 chronic kidney disease; I48.0 Paroxysmal atrial fibrillation; I12.9 Hypertensive chronic kidney disease with stage 1 through stage 4 chronic kidney disease, or unspecified chronic kidney disease; E78.5 Hyperlipidemia, unspecified; D64.9 Anemia, unspecified; N18.9 Chronic kidney disease, unspecified; Z99.89 Dependence on other enabling machines and devices; Z79.899 Other long term (current) drug therapy; Z79.85 Long-term (current) use of injectable non-insulin antidiabetic drugs; Z90.49 Acquired absence of other specified parts of digestive tract; Z96.659 Presence of unspecified artificial knee joint
CPT/HCPCS: 71046; 80048; 83880; 84484; 85025; 87428; 93005; 94640; 99284; A4216

== ENCOUNTER 2022-12-02 10:00 | Outpatient (RCR) | payer MEDICARE, SELFPAY ==
--- NOTE | 2022-08-24 11:00 | HP.PTEVAL ---
Patient's Visit Information YENNIFER JARAMILLO is a 81 year old F referred to Physical Therapy by BRAYAN Pete with a diagnosis of Right Shoulder Pain- OA. Date of Evaluation: 08/24/22 Physical Therapist: Camilla Dean DPT - Visit Plan Frequency: 2x /Week Duration: 4 Weeks Plan: Focus on UE and scapular strength/stabilization- ROM. Postural correction. HEP Given IE: Posture, scapular retractions, supine AAROM with UE - Subjective Patient reports that her right shoulder has been bothering her for awhile- when she first went to urgent care they thought maybe RTC- they took an x-ray which showed it was not broken. No exercises but just sent her home. She has more pain depending on what she does. X-rays on the right shoulder shows OA. She had an injection last Monday which has helped. She feels that she is 80% improvement with the injection. She has the most pain when she reaches back to pull the covers on/off when she is on her side. Right hand dominate. Worst: 10 but that comes and goes and is stabbing Agg: movement. Eases: injection, Tylenol. Best: 1-2 The pain is located in the deltoid- it does radiate into the shoulder. Yesterday she has a little bit of neck pain. 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 No NYE, blurred vision or dizziness. Sleep: not disturbed since the shot and she hugs a pillow. She uses a FWW at all times- due to her back and hip pain and unsteadiness. Lives alone- she is fully I- she does have a cleaning lady and a high chair that she sits on to cook and do dishes- and she has everything accessible. PMHx/Meds: addition of amlodipine but no other changes - Objective Posture: FH, RS- can correct but does not maintain. Gait: FWW- hunched forwards with significant weight through her UE due to pain in her hip. Palpation: not tender to touch. ROM: Cervical: WNL, Shoulder: AROM: Flexion: 150 degrees, Abd: 100 degrees, IR: WNL, ER: 30 degrees, PROM: WFL in all planes. Elbow: WFL, Wrist/Hand: WLF. Strength: Scap: poor, Shoulder at neutral: 4/5 flexion/abd/add 3+/5 IR/ER. Elbow: 4-/5, Ammonia Nitrate Operator: equal - Balance/Special Test Scores Quick DASH Score: 54.5450 - Goals Goal 1:: Patient will be I with HEP and progression Goal Time Frame: 4-6 Weeks Goal 2:: Patient will demo full AROM of the right shoulder Goal Time Frame: 4-6 Weeks Goal 3:: Patient will maintain proper posture t/o tx session to demo increased scap s/s Goal Time Frame: 4-6 Weeks Goal 4:: Patient will report 80% improvement Goal Time Frame: 4-6 Weeks - Rehabilitation Potential Physical Therapy Diagnosis: Patient presents with hypomobility- she has decreased UE ROM, scapular strength/stabilization and muscular endurance leading to poor posture and increased pain with ADL's. Rehabilitation Potential: Fair - Anticipated Interventions Patient/Client Instruction: Educate patient on: Benefits of Fitness Program Therapeutic Exercise to Include: Strength training, Endurance training, Balance training, Coordination, Agility training, Body mechanics, Postural training, Flexibilty training, Gait and locomotor training, Neuromotor development, Passive ROM, Active ROM, Dynamic Lumbar Stabilization, Scapular Strength/Stabilization For the Purpose of:: To improve muscle performance and motor function TENS: Yes Cryotherapy (ice pack, ice massage): Yes Thermo therapy (hot pack): Yes Ultrasound (thermal/non thermal): Yes Thank you for the opportunity to evaluate your patient. For Medicare and Medicare HMO plans, please review the plan of care and approve it. It will need to be FAXED BACK to us at [phone] for Medicare purposes. For Medicare only, by signing this I certify the plan of care. Please let me know if there are questions or concerns regarding this plan of care. Physician Signature: Date:
--- NOTE | 2022-09-07 15:05 | HP.PTEVAL2 ---
Patient's Visit Information YENNIFER JARAMILLO is a 81 year old F referred to Physical Therapy by BRAYAN Pete with a diagnosis of R hip OA. Date of Evaluation: 09/07/22 Physical Therapist: KEKE MendozaT, OCS, CSCS - Visit Plan Frequency: 2x /Week Duration: 4-6 Weeks Plan: 2x/week for 4 weeks for water therapy for R hip ROM and strengthening of core, legs and progression of gait. Likely will need to be in water with patient to start and may need lift chair to get in water. Pt will alos need scap and shoulder strength per primary chart in the water to tolerance under primary chartnote. Pt may just wear bathing suit under clothes and avoidd locker room as it will be hard for her to get up from bench, she will make this determination each visit but is aware no help can be offered in the locker room. - Subjective Subjective: Seeing PT for shoulder and it is helping. Saw doctor Alirio for hip pain thinking it was her back and offered stim for back and did not want so sent to pain management. Had PT for back due to R groin pain and post hip pain, also had back injections and it helped as back feels good. Saw dr. guevara in the mean time and needs hip surgery for R CIARA not scheduled as she needs to be stronger. pain is comfortable at rest. has to move the leg with her hands at times though. Pain with movement can be 6/10 in R groin transiently. Sitting and random movements are painful. Sleep is not interrupted. Takes two tylenol. uses wh walker as she feels weak and not trusting. Not employed. Lives alone in one story house with two steps in with bars. They hurt and r leg feels weak when stepping up, fell 2x. Dresses self, sits in commode to dress. has high riser commode with rails. Has walk in shower and stool. Hobbies: loves to elroy and can do that. \. No regulaar exericse,. Has lift chair and sits on high stool. - Objective Objective: Walks with walker 150 feet slowly and short steps, hunched over and hips deviate L. Slow. Trasnfer chair requires assist up form low chair Min. To chair is I. Steps using R is painful but too weak to push with L, needs B UE. Descends using R. bed transfer is I. Unable to lie flat on back due to LBP. Can get hips barely to neutral extension R and L, abduction 15 L and 10 R. flexion 90 R and 100 L with pain on R. knee AROM WFL B and ankle WFL B. strength ankles 4-, knee ext adn flexion 4- and hip abd R 3 and flexion 3 and ext hard to test due to poor mobility. L side slightly stronger at 3+/5 in hip. reflexes 0/3 patella and achilles B. Sensation diminished to gross light touch in feet adn into ankles, better in mid huynh. Can stand without holding on hunched over for short duration 10 seconds or less. Unable to walk without AD today. - Goals Goal 1:: Pt feel mobiity 50% improved including able to get out of chair without assist Goal Time Frame: 4-6 Weeks Goal 2:: Pt feel 50% better in strength to prepare for hip surgery if needed. Goal Time Frame: 4-6 Weeks Goal 3:: LEFS score 40 Goal Time Frame: 4-6 Weeks - Rehabilitation Potential Physical Therapy Diagnosis: R hip stiffness and weakness due to OA Rehabilitation Potential: Fair - Anticipated Interventions Patient/Client Instruction: Educate patient on: Condition, Plan of Care For the Purpose of:: To decrease pain, To increase ROM, To improve nutrient delivery to tissue, To improve muscle performance and motor function, To improve ability of physical actions for home/community/work/leisure, To improve gait and locomotor functions Therapeutic Exercise to Include: Strength training, Postural training, In an aquatic setting, Passive ROM, Active ROM For the Purpose of:: To decrease pain, To increase ROM, To improve nutrient delivery to tissue, To improve muscle performance and motor function, To increase tolerance to activity/condition/position, To improve ability of physical actions for home/community/work/leisure Thank you for the opportunity to evaluate your patient. For Medicare and Medicare HMO plans, please review the plan of care and approve it. It will need to be FAXED BACK to us at [phone] for Medicare purposes. For Medicare only, by signing this I certify the plan of care. Please let me know if there are questions or concerns regarding this plan of care. Physician Signature: Date:
--- NOTE | 2022-10-05 10:24 | HP.PTDCSUM ---
It has been my pleasure to treat YENNIFER JARAMILLO referred by BRAYAN Pete, with the diagnosis of Right Shoulder Pain- OA for a total of 8 visit(s). Discharge Date: 10/05/22 Please see the following information for a summary of their discharge status. Subjective: Shoulder is doing great. has not hurt her at all lately. Still feels weak to move coffee cup. Lifting it is the main home exercises. Not doing HEP. Still avoiding repetitive movement. R hip Pain Intensity (Out of 10): 0 % Improvement: 90 Objective/Function: Full aROM r arm, weakness persists but feeling well. Goal 1:: Patient will be I with HEP and progression Goal Progress: Goal Met Goal 2:: Patient will demo full AROM of the right shoulder Goal Progress: Goal Met Goal 3:: Patient will maintain proper posture t/o tx session to demo increased scap s/s Goal Progress: Progressing Goal 4:: Patient will report 80% improvement Goal Progress: Goal Met Plan: d/c to HEP Discharge Comments: Pt willing to cotninue at home vs more therapy and appropriate for this. If there are questions or concerns regarding this patient's physical therapy, please feel free to call me at [phone]. Thank you for the referral of this patient. Sincerely, [place] Andrew, DPT, OCS, CSCS Balance/Gait/Functional tests - Balance/Special Test Scores Lower Extremity Functional Score: 23 Quick DASH Score: 45.4556
--- NOTE | 2022-11-07 10:56 | HP.PTRE(2) ---
Fabiola Boss, QASIM-C, It has been my pleasure to treat YENNIFER JARAMILLO over the last 12 visits for R hip OA. Please see the progress note below for an update on the physical therapy plan of care! Subjective: Standing on scale better in am. used to be hard to stand there. Surgery to R hip cancelled due to anemia and malnourishment. Doctor added two iron pills. Will have blood test in 3 weeks to possibly schedule surgery. Pain is 0/10 today and has been low. Less intense and ess often and 2/10 when she gets it , sharp pain is gone. Doing band exercises for knees at home. Things slowly improving. Getting out of chair slightly better and sitting more controlled. Wants to continue until surgery. Objective/Function/Assessment: Walks slowly but safe into PT with wh walker mod I. Exits chair with elevated surface 3 inches I but from regular chair needs slight assist and VC to shift weight Fw. Tends to try to stand without shifting abdomen Fw. Stands and walks similar manner hunched over. New golas set and fair prognosis for these 2 new goals. Plan Plan: 2x/week for 3-6 weeks... Please continue in the pool emphasizing hip strength and ROM. Please add FW weight shift exercises getting up out of lift chair and deeper squats keeping weights FW. Pleae progress HEP during her time in the pool adding standing hip abd, ext, march, heel raises, minisquats to tolerance with pics so patient can have exit strategy of HEP. Will recheck in 3 weeks and consider if needs more land theerapy depending on surgery decision. Goals Goal 1:: Pt feel mobiity 50% improved including able to get out of chair without assist Goal Time Frame: 4-6 Weeks Goal Progress: 20% Goal 2:: Pt feel 50% better in strength to prepare for hip surgery if needed. Goal Time Frame: 4-6 Weeks Goal Progress: Progressing Goal 3:: LEFS score 40 Goal Time Frame: 4-6 Weeks Goal Progress: Not Progressing Goal 4:: Pt I in appropriate HEP to minimize pain and maximize function Goal Time Frame: 4-6 Weeks Goal Progress: NEW GOAL Goal 5:: Pt exit chair I without elevated surface Goal Time Frame: 4-6 Weeks Goal Progress: NEW GOAL Anticipated Interventions Patient/Client Instruction: Educate patient on: Condition, Plan of Care For the Purpose of:: To decrease pain, To increase ROM, To improve nutrient delivery to tissue, To improve muscle performance and motor function, To improve ability of physical actions for home/community/work/leisure, To improve gait and locomotor functions Therapeutic Exercise to Include: Strength training, Postural training, In an aquatic setting, Passive ROM, Active ROM For the Purpose of:: To decrease pain, To increase ROM, To improve nutrient delivery to tissue, To improve muscle performance and motor function, To increase tolerance to activity/condition/position, To improve ability of physical actions for home/community/work/leisure Please do not hesitate to contact me at [phone] by phone or if you have questions or concerns regarding this new plan of care! Sincerely, Los Andrew, DPT, OCS, CSCS
--- NOTE | 2022-12-02 10:17 | HP.PTDS(2)_ITS ---
Discharge Summary D/C Summary: It has been my pleasure to treat YENNIFER JARAMILLO referred by BRAYAN Pete, with the diagnosis of R hip OA for a total of 20 visit(s). Discharge Date: 12/02/22 Please see the following information for a summary of their discharge status. Subjective Subjective: Will find out soon if can have surgery, will have to have blood test. Overall slightly and slowly better with trasnitions and weighing herself is easier ont he scale. Pain in the last week is up to 4/10 in R posterior hip and knees hurt. Woke up with pain last night. Water exercises going well. Shoulder is fine and no problems lately. Riding bike adn HEP at sink daily. Fatigues quickly. Will continue ex at [employer] 1-2x/week to complement HEP. Overall Improvement % Improvement: 50 Objective Objective/Function/Assessment: Transfer out of chair slowly using UE but no hands on assist needed today 2x. Stands without UE but unabe t walk WB R without AD. Goals Patient Goals: Other Other Goals: walk better, stornger for surgery Goal 1:: Pt feel mobiity 50% improved including able to get out of chair without assist Goal Progress: 50% Goal 2:: Pt feel 50% better in strength to prepare for hip surgery if needed. Goal Progress: Goal Met Goal 3:: LEFS score 40 Goal Progress: Not Progressing Goal 4:: Pt I in appropriate HEP to minimize pain and maximize function Goal Progress: Goal Met, compliance. Goal 5:: Pt exit chair I without elevated surface Goal Progress: Goal Met Plan Plan: d/c to HEP/pool D/C Information Discharge Comments: Pt will await surgery and continue HEP and [employer] pool in the meantime with friends.family d/c sentence: If there are questions or concerns regarding this patient's physical therapy, please feel free to call me at [phone]. Thank you for the referral of this patient. Sincerely, Los Andrew, DPT, OCS, CSCS
== END 2022-12-02 19:00 | disposition home or self-care (01) ==
LOC: PT 10:00
PROVIDERS: PCP Family Medicine; Referring Provider Nurse Practitioner Family; Visit Provider Nurse Practitioner Family
DX: M25.511 Pain in right shoulder (principal); M07.611 Enteropathic arthropathies, right shoulder; M16.11 Unilateral primary osteoarthritis, right hip; R53.1 Weakness; M25.651 Stiffness of right hip, not elsewhere classified
CPT/HCPCS: 97110; 97113; 97162; 97164

== ENCOUNTER → 2022-12-03 | Outpatient (CLI) | payer MEDICARE, SELFPAY ==
[2022-12-03 10:43] LABS: Absolute Lymphocyte Count 1.01 X10^3/uL (0.83-4.51); Absolute Neutrophil Count 4.3 X10^3/uL (2.0-7.7); Basophil# 0.02 X10^3/uL; Basophil% 0.3 % (0-1); Eosinophil# 0.17 X10^3/uL; Eosinophils% 2.9 % (0-5); Hematocrit 29.7 % (37-47); Hemoglobin 9.2 g/dL (12.0-15.0); Lymphocyte # 1.01 X10^3/ul (0.83-4.51); Lymphocyte % 17.2 % (19-41); Mean Corpuscular Hgb 30.2 pg (27.0-32.0); Mean Corpuscular Volume 97.4 fL (81-99); Monocyte# 0.35 X10^3/uL; NRBC Flagged by Analyzer 0 % (0-5); Neutrophil # 4.29 X10^3/uL (2.7-7.7); Neutrophil % 72.9 % (47-70); Platelet Count 227 K/mm3 (150-450); RBC Distribution Width CV 15.9 % (11.6-14.6); RBC Distribution Width SD 56.5 fl (35.1-43.9); Red Blood Count 3.05 M/mm3 (4.2-5.4); White Blood Count 5.9 K/mm3 (4.4-11.0)
[2022-12-03 11:00] LABS: Hemoglobin A1c 6.5 % (3.8-5.6)
[2022-12-03 11:08] LABS: Albumin, Serum 2.9 g/dL (3.2-5.0); Anion Gap 5 (5-15); BUN 39 mg/dL (7-18); BUN/Creat Ratio 28.7 RATIO (10-20); Calcium,Total 8.7 mg/dL (8.5-10.1); Chloride 111 mmol/L (98-107); Creatinine, Serum 1.36 mg/dL (0.55-1.02); EST Glomerular Filtration Rate 40 mL/min (>60); Est Glom Filt Rate - Afr Amer 48 mL/min (>60); Glucose 133 mg/dL (74-106); Potassium 4.4 mmol/L (3.5-5.1); Sodium Level 143 mmol/L (136-145)
== END | disposition home or self-care (01) ==
LOC: LAB 10:05
PROVIDERS: PCP Family Medicine; Referring Provider Specialist; Visit Provider Specialist
DX: Z01.818 Encounter for other preprocedural examination (principal)
CPT/HCPCS: 36415; 80048; 82040; 83036; 85025

== ENCOUNTER → 2023-01-17 | Outpatient (CLI) | payer MEDICARE, SELFPAY ==
--- NOTE | 2023-01-17 15:40 | RAD_ITS ---
INDICATION: PAIN EXAMINATION/TECHNIQUE: X-RAY - LEFT XR Elbow Min 3 Views COMPARISON: No relevant prior comparison study available FINDINGS: SOFT TISSUES: No soft tissue swelling or gas. No radiopaque foreign body. BONES/JOINTS: There is no displacement of the anterior or posterior fat pads. Tiny osseous fragment adjacent to the medial humeral epicondyle. Normal alignment. Moderate degenerative changes of the ulnar trochlear joint. No sclerotic or destructive changes observed. RAD/Elbow min 3 Views IMPRESSION: Tiny osseous fragment adjacent to the medial humeral epicondyle could represent an age-indeterminate avulsion fracture. Correlate with point tenderness. Moderate degenerative arthrosis of the elbow. Electronically Signed: Alo Powell MD at 17:22 EDT ,
== END | disposition home or self-care (01) ==
LOC: MTRAD 15:38
PROVIDERS: PCP Family Medicine; Referring Provider Nurse Practitioner Acute Care; Visit Provider Nurse Practitioner Acute Care
DX: M25.522 Pain in left elbow (principal)
CPT/HCPCS: 73080

== ENCOUNTER 2023-02-10 03:30 | Inpatient (IN) | payer MEDICARE, SELFPAY ==
[2023-02-10 03:31] VITALS: BP 177/72; PULSE 79; RESP 17; TEMP 36.2; O2SAT 95; BMI 32.0
--- NOTE | 2023-02-10 03:36 | EDS_ITS ---
HPI History of Present Illness Chief Complaint: Lower Extremity Injury Informant: patient and EMS Narrative Narrative: Patient arrives 3:30 AM for evaluation of right lower leg injury. It occurred this morning after getting up to go to the bathroom, she was using her walker to back into an area of her bathroom and she states she accidentally went [address] when the walker went the other, and it was a mechanical fall. She does not know the mechanism of how she injured her right lower leg but she has no pain anywhere else. She was able to put some weight on it but very difficult and was not able to walk well with it. She denies any pain at the ankle or the knee or elsewhere acutely. [facility] Medical History (Updated 02/10/23 @ 05:[address] Chrissy Zimmerman MD) Anemia Arthritis Cardiomyopathy in disease classified elsewhere Choledocholithiasis with acute cholecystitis Chronic kidney disease CPAP (continuous positive airway pressure) dependence Generalized anxiety disorder Generalized osteoarthritis History of hiatal hernia Hyperlipidemia Non-smoker Paroxysmal atrial fibrillation Paroxysmal atrial flutter Post-menopausal Sleep apnea Thyroid disease Type 2 diabetes mellitus Walker as ambulation aid Wears glasses Wears hearing aid Home Medications allopurinol 100 mg tablet 200 mg PO DAILYCM gout 07/04/13 [History Last Taken 08/18/20] lansoprazole 30 mg capsule,delayed release 30 mg PO DAILY GERD 07/04/13 [History Last Taken 08/18/20] pioglitazone 15 mg tablet 30 mg PO QHS diabetes 03/29/19 [History Last Taken 08/18/20] cholecalciferol (vitamin D3) 1,250 mcg (50,000 unit) capsule 50,000 unit PO TU bones 05/07/19 [History Last Taken 08/18/20] clotrimazole 1 % vaginal cream 1 appful vaginal BID PRN itching/irritation 05/07/19 [History Last Taken Unknown] dulaglutide 1.5 mg/0.5 mL subcutaneous pen injector 1.5 mg SQ PONCE diabetes 07/24/20 [History Last Taken 08/16/20] amiodarone 200 mg tablet 200 mg PO DAILY heart 08/21/20 [History Last Taken Unknown] acetaminophen 500 mg tablet 1,000 mg (2 x 500 mg) PO Q6H PRN Pain Score 1-10 08/26/20 [Rx Last Taken Unknown] levothyroxine 137 mcg tablet 137 mcg PO DAILY 10/22/20 [History Last Taken Unknown] carvedilol 25 mg tablet 25 mg PO BID blood pressure 12/11/20 [History Last Taken Unknown] cyanocobalamin (vitamin B-12) 1,000 mcg/mL injection solution 1,000 mcg IM QMONTH 12/11/20 [History Last Taken Unknown] psyllium husk 0.52 gram capsule (Fiber (psyllium husk)) 1.04 g PO DAILY 12/11/20 [History Last Taken Unknown] gabapentin 300 mg capsule 300 mg PO TID neuropathy 03/02/22 [History Last Taken Unknown] Colestid 1 gm PO/SL BID 03/09/22 [History Last Taken Unknown] Ferrex 150 300 mg PO/SL DAILY 03/09/22 [History Last Taken Unknown] Prevacid 30 mg PO/SL DAILY 03/09/22 [History Last Taken Unknown] acetaminophen 1,000 mg PO/SL Q8H PRN PRN Back Pain 03/09/22 [History Last Taken Unknown] amiodarone 200 mg PO/SL DAILY 03/09/22 [History Last Taken Unknown] cholecalciferol (vitamin D3) 50,000 units PO/SL QWEEK 03/09/22 [History Last Taken Unknown] clotrimazole 1 applic transdermal BID PRN Itching 03/09/22 [History Last Taken Unknown] folic acid 1 mg PO/SL DAILY 03/09/22 [History Last Taken Unknown] glimepiride 2 mg PO/SL DAILY 03/09/22 [History Last Taken Unknown] multivitamin with iron 1 tablet PO/SL DAILY 03/09/22 [History Last Taken Unknown] amlodipine 2.5 mg tablet 2.5 mg PO DAILY 08/22/22 [History Last Taken Unknown] prednisone 10 mg tablet 10 mg PO UD #33 tabs 10/31/22 [Rx Last Taken Unknown] Allergy/AdvReac Type Severity Reaction Status Date / Time iodine Allergy Hives Verified 02/10/23 03:34 simvastatin Allergy Other Verified 02/10/23 03:34 Jcoyuke-MEV-IuL Reductase AdvReac Severe mylagias Verified 02/10/23 03:34 Inhibitor [Zatvmdm-Mlh-Hma Reductase Inhibitor] Family History Brother Heart disease Mother Heart disease Father Heart disease Surgical History History of carpal tunnel surgery History of cataract surgery History of cholecystectomy History of knee replacement History of tonsillectomy Social History household members: none Smoking Status: Never smoker alcohol intake: never substance use type: does not use ROS ROS ED Constitutional Constitutional ED: Denies chills or fever(s) Musculoskeletal Musculoskeletal: Reports extremity pain; Denies neck pain Integumentary Denies Abrasions, rash or wounds Neurologic Neurologic: Denies paresthesias or weakness EXAM Physical Exam Const Vital Signs: 02/10/23 03:31 Temperature 97.2 F L Temperature Source Temporal Pulse Rate 79 Respiratory Rate 17 Blood Pressure 177/72 H Blood Pressure Mean 107 Pulse Ox 95 Oxygen Delivery Method Room Air Positive well nourished and well developed General Appearance ED: well developed and NAD Neck full ROM and supple Back/Spine normal ROM and normal to inspection Extremity normal to inspection and full ROM Extremity Narrative: Full range of the joints of the right lower extremity ligaments are intact no pain with stressing any of the ligaments, she has had a prior CIARA. She is tender in the lateral aspect of the mid right lower leg, as well as distally but not as far as the lateral malleolus, that in the medial and the alveolus are nontender. There is no obvious signs of trauma, nor is there a deformity or erythema/rash. Neuro oriented x3, no focal motor deficits and no sensory deficits noted Sensorium / Orientation: alert Psych mental status grossly normal and thought process normal Skin no wounds Rashes: no rashes MDM MDM MDM Narrative Medical decision making narrative: 4 views of the right tibia/fibula on my interpretation are negative for any acute fracture or dislocation. Radiology in agreement. Clinically, I do not have suspicion for a joint or interosseous membrane disruption. 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 We also evaluated this here in the emergency department. She can bear some weight after requiring significant assistance to stand, and is feeling very unsteady, lives alone, feels unsafe going home and wants to be evaluated for short-term rehab placement. When standing and using her leg to take a couple of steps, she feels like the problem is at the lateral aspect of the knee. Her exam is benign on my exam. Will discuss with hospitalist for inpatient observation for evaluation of occupational physical therapy and social work consult. Radiography Diagnostic Testing: Clinical Impression(s) from Imaging Studies Tibia/Fibula X-Ray 02/10/23 03:45 IMPRESSION: No acute fracture. Electronically Signed: Dao Medina, at 4:00 EDT , Management Discussion w/another healthcare provider: Hospitalist Discharge Plan Triage Chief Complaint: Lower Extremity Injury ED Provider: Domingo Hardin Dx/Rx/DC Orders Clinical Impression: Inability to ambulate due to right knee, Injury of right lower extremity Prescriptions: No Action pioglitazone 15 mg tablet 30 mg PO QHS cholecalciferol (vitamin D3) 50,000 unit capsule 50,000 unit PO TU clotrimazole 1 % cream 1 appful VAGINAL BID PRN (Reason: itching/irritation) cyanocobalamin (vitamin B-12) 1,000 mcg/mL solution 1,000 mcg IM QMONTH psyllium husk [Fiber (psyllium husk)] 0.52 gram capsule 1.04 g PO DAILY carvedilol 25 mg tablet 25 mg PO BID amlodipine 2.5 mg tablet 2.5 mg PO DAILY allopurinol 100 MG tablet 200 mg PO DAILYCM lansoprazole 30 MG capsule 30 mg PO DAILY gabapentin 300 mg capsule 300 mg PO TID dulaglutide 1.5 MG/0.5 ML pen injector 1.5 mg SQ PONCE amiodarone 200 MG tablet 200 mg PO DAILY acetaminophen 500 MG tablet 1,000 mg PO Q6H PRN (Reason: Pain Score 1-10) 0RF levothyroxine 137 mcg tablet 137 mcg PO DAILY Colestid 1 gram tablet 1 gm PO/SL BID Ferrex 150 150 mg capsule 300 mg PO/SL DAILY Rx Instructions: Take 2 capsules at night Prevacid 30 mg capsule 30 mg PO/SL DAILY acetaminophen 500 mg tablet 1,000 mg PO/SL Q8H PRN PRN (Reason: Back Pain) amiodarone 200 mg tablet 200 mg PO/SL DAILY cholecalciferol (vitamin D3) 50,000 U capsule 50,000 units PO/SL QWEEK clotrimazole 1 % cream 1 applic transdermal BID PRN (Reason: Itching) folic acid 1 mg tablet 1 mg PO/SL DAILY glimepiride 2 mg tablet 2 mg PO/SL DAILY multivitamin with iron capsule 1 tablet PO/SL DAILY prednisone 10 mg tablet 10 mg PO UD Qty: 33 0RF Rx Instructions: Take 4 tablets daily for 3 days, then 3 daily for 3 days, then 2 daily for 3 days, then 1 a day for 3 days then 1 QOD for 3 doses. Primary Care Provider: Stefan Gordon Referrals: Stefan Gordon MD [Primary Care Provider] - Disposition Disposition: Acute Care Hospital [facility]
--- NOTE | 2023-02-10 03:45 | RAD_ITS ---
INDICATION: injury EXAMINATION/TECHNIQUE: X-RAY - RIGHT XR Tibia/Fibula 2 Views COMPARISON: 08/19/2020. FINDINGS: SOFT TISSUES: Vascular calcifications are present. BONES/JOINTS: No acute fracture or dislocation. Chronic posttraumatic changes of the medial malleolus. Total knee arthroplasty hardware is intact. No erosive changes. RAD/Tibia & Fibula 2 Views IMPRESSION: No acute fracture. Electronically Signed: Dao Haney DO at 4:00 EDT ,
--- NOTE | 2023-02-10 05:08 | ED.RN ---
Pt ambulatory to restroom with x2 assist. Normally pt is able to ambulate on own with walker. Pt expressed concerns for falling again, made it clear she was nervous and scared. Dr. Hardin notified of pt concerns and ability to ambulate.
[2023-02-10] MEDS: traMADol 50 MG Tablet PO ×2 (05:40→11:16)
--- NOTE | 2023-02-10 05:40 | PCM.HP.STD ---
HPI - General General Date of Admission: 02/10/23 Date of Service: 02/10/23 Chief Complaint: Fall, Debility. HPI Narrative The patient is an 82 y/o F w/ PMHx: Hypothyroidism, Obesity, DAYANA on CPAP, Chronic anemia, CKD stage III unclear subtype, PAF/Flutter, Nonischemic cardiomyopathy, Diabetes mellitus type II, GERD who presents to the [facility] ED on 02/10/23 getting up at approximately 3:30 in the morning to use the bathroom walking with her walker however unfortunately she excellently fell mechanically and injured her right leg on the fall although she is unsure of exactly what she injured the leg on but following this had debility and pain with difficulty bearing weight prompting eventual ED evaluation. Notes it feels better than initially however discomfort still 4-5 out of 10 in severity, worse with activity attempts. In the ED work-up included T97.2, heart rate 79, BP 177/72, respiratory rate 17, 95% on room air, plain film of the right tib-fib with no acute fracture. In the ED patient administered Ultram 50 mg p.o. x1. [facility] Medical History (Updated 02/10/23 @ 05:[address] Chrissy Zimmerman MD) Anemia Arthritis Cardiomyopathy in disease classified elsewhere Choledocholithiasis with acute cholecystitis Chronic kidney disease CPAP (continuous positive airway pressure) dependence Generalized anxiety disorder Generalized osteoarthritis History of hiatal hernia Hyperlipidemia Non-smoker Paroxysmal atrial fibrillation Paroxysmal atrial flutter Post-menopausal Sleep apnea Thyroid disease Type 2 diabetes mellitus Walker as ambulation aid Wears glasses Wears hearing aid Home Medications allopurinol 100 mg tablet 200 mg PO DAILYCM gout 07/04/13 [History Last Taken 08/18/20] lansoprazole 30 mg capsule,delayed release 30 mg PO DAILY GERD 07/04/13 [History Last Taken 08/18/20] pioglitazone 15 mg tablet 30 mg PO QHS diabetes 03/29/19 [History Last Taken 08/18/20] cholecalciferol (vitamin D3) 1,250 mcg (50,000 unit) capsule 50,000 unit PO TU bones 05/07/19 [History Last Taken 08/18/20] clotrimazole 1 % vaginal cream 1 appful vaginal BID PRN itching/irritation 05/07/19 [History Last Taken Unknown] dulaglutide 1.5 mg/0.5 mL subcutaneous pen injector 1.5 mg SQ PONCE diabetes 07/24/20 [History Last Taken 08/16/20] amiodarone 200 mg tablet 200 mg PO DAILY heart 08/21/20 [History Last Taken Unknown] acetaminophen 500 mg tablet 1,000 mg (2 x 500 mg) PO Q6H PRN Pain Score 1-10 08/26/20 [Rx Last Taken Unknown] levothyroxine 137 mcg tablet 137 mcg PO DAILY 10/22/20 [History Last Taken Unknown] carvedilol 25 mg tablet 25 mg PO BID blood pressure 12/11/20 [History Last Taken Unknown] cyanocobalamin (vitamin B-12) 1,000 mcg/mL injection solution 1,000 mcg IM QMONTH 12/11/20 [History Last Taken Unknown] psyllium husk 0.52 gram capsule (Fiber (psyllium husk)) 1.04 g PO DAILY 12/11/20 [History Last Taken Unknown] gabapentin 300 mg capsule 300 mg PO TID neuropathy 03/02/22 [History Last Taken Unknown] Colestid 1 gm PO/SL BID 03/09/22 [History Last Taken Unknown] Ferrex 150 300 mg PO/SL DAILY 03/09/22 [History Last Taken Unknown] Prevacid 30 mg PO/SL DAILY 03/09/22 [History Last Taken Unknown] acetaminophen 1,000 mg PO/SL Q8H PRN PRN Back Pain 03/09/22 [History Last Taken Unknown] amiodarone 200 mg PO/SL DAILY 03/09/22 [History Last Taken Unknown] cholecalciferol (vitamin D3) 50,000 units PO/SL QWEEK 03/09/22 [History Last Taken Unknown] clotrimazole 1 applic transdermal BID PRN Itching 03/09/22 [History Last Taken Unknown] folic acid 1 mg PO/SL DAILY 03/09/22 [History Last Taken Unknown] glimepiride 2 mg PO/SL DAILY 03/09/22 [History Last Taken Unknown] multivitamin with iron 1 tablet PO/SL DAILY 03/09/22 [History Last Taken Unknown] amlodipine 2.5 mg tablet 2.5 mg PO DAILY 08/22/22 [History Last Taken Unknown] prednisone 10 mg tablet 10 mg PO UD #33 tabs 10/31/22 [Rx Last Taken Unknown] Allergy/AdvReac Type Severity Reaction Status Date / Time iodine Allergy Hives Verified 02/10/23 03:34 simvastatin Allergy Other Verified 02/10/23 03:34 [id number]-NHK-GtK Reductase AdvReac Severe mylagias Verified 02/10/23 03:34 Inhibitor [Kyxmxip-Snv-Gek Reductase Inhibitor] Family History Brother Heart disease Mother Heart disease Father Heart disease Surgical History History of carpal tunnel surgery History of cataract surgery History of cholecystectomy History of knee replacement History of tonsillectomy Social History household members: none Smoking Status: Never smoker alcohol intake: never substance use type: does not use ROS ROS Narrative Admission Review of Systems: CONSTITUTIONAL: No weight loss, fever, chills, + weakness or fatigue. HEENT: Eyes: No visual loss, blurred vision, double vision or yellow sclerae. Ears, Nose, Throat: No hearing loss, sneezing, congestion, runny nose or sore throat. SKIN: No rash or itching, lesions, wounds. CARDIOVASCULAR: No chest pain, chest pressure or chest discomfort, palpitations, edema, orthopnea, syncopal events. RESPIRATORY: No shortness of breath, cough or sputum, wheezing, hemoptysis. GASTROINTESTINAL: + Dyspepsia. No anorexia, nausea, vomiting or diarrhea, abdominal pain, melena, BRBPR. GENITOURINARY: No dysuria, frequency, urgency or retention. NEUROLOGICAL: No headache, dizziness, syncope, paralysis, ataxia, numbness or tingling in the extremities, focal weakness, change in bowel or bladder control, seizure. MUSCULOSKELETAL: + muscle, back pain, joint pain or stiffness. HEMATOLOGIC: + anemia. LYMPHATICS: No enlarged nodes. No history of splenectomy. PSYCHIATRIC: No history of depression or anxiety. ENDOCRINOLOGIC: No reports of sweating, cold or heat intolerance. No polyuria or polydipsia. ALLERGIES: + History of hives. Vital Signs Vital Signs Vital Signs: 02/10/23 03:31 Temperature 97.2 F L Temperature Source Temporal Pulse Rate 79 Respiratory Rate 17 Blood Pressure 177/72 H Blood Pressure Mean 107 Pulse Ox 95 Oxygen Delivery Method Room Air Weight Weight: 204 lb 9.423 oz Body Mass Index (BMI) 32.0 Physical Exam Narrative Physical Examination: General: Awake, alert, oriented x 3 and cooperative, seated upright in the ED bed in no apparent distress. Skin: Normal color, normal turgor, no icterus, no cyanosis. HEENT: AT/NC, EOMI, PERRLA, MMM, no carotid bruits or JVD noted; however thickened neck makes evaluation difficult. Lungs: Mildly diminished, greater bases, proper effort no rales, ronchi or wheezing. Heart: Regular rate and rhythm; no gallop, rub audible. Abdomen: Soft, obese, NTTP, ND, distant normal BS, no obvious evidence of HSM. Extremities: No cyanosis, no clubbing, mild pedal to mid huynh edema, full range of motion right lower extremity, some discomfort anteriorly along the shaft. Neurological: Patient awake, alert, oriented as noted, cognitive function intact; pupils equally reactive to light and accommodation, cranial nerves II-XII grossly normal, moving all 4 extremities, no focal deficits, strength moderately global decreased. Psychiatric: Affect appears fatigued otherwise normal, no acute evidence of depressive or anxiety feelings. Results Radiology Impression Tibia/Fibula X-Ray 02/10/23 03:45 IMPRESSION: No acute fracture. Electronically Signed: Dao Haney DO at 4:00 EDT , Assessment & Plan Assessment/Plan (1) Injury of right lower extremity: PLAN: Plan The patient is an 82 y/o F w/ PMHx: Hypothyroidism, Obesity, DAYANA on CPAP, Chronic anemia, CKD stage III unclear subtype, PAF/Flutter, Nonischemic cardiomyopathy, Diabetes mellitus type II, GERD who presents to the [facility] ED on 02/10/23 getting up at approximately 3:30 in the morning to use the bathroom walking with her walker however unfortunately she excellently fell mechanically and injured her right leg on the fall although she is unsure of exactly what she injured the leg on but following this had debility and pain with difficulty bearing weight prompting eventual ED evaluation. #1. Mechanical fall with debility: Plain film of the right lower extremity with no acute fracture debility, unfortunately secondary to pain having difficulty bearing weight, certainly could be musculoskeletal injury, will admit to medical surgical floor, maintain on fall precautions, ice with elevation, maintain on fall precautions, PT/OT/case management consultation for discharge planning. If pain continues and intractable despite time and treatment may need to consider further imaging. #2. PAF/flutter: We will continue patient home amiodarone, per current list not on chronic anticoagulant therapy, potentially secondary to fall risk. #3. Hypertension: Continue home regimen including Coreg, amlodipine, PRN hydralazine. #4. Hyperlipidemia: Statin allergy, defer to outpatient. #5. Chronic normocytic anemia/iron deficiency anemia: Admission hemoglobin pending upon request evaluation of patient. Hemoglobin noted most recently -, will continue to trend, continue chronic Ferrex regimen. #6. Chronic Kidney Disease Stage III, unclear subtype: Admission BUN/Cr pending upon request evaluation of patient. Baseline renal function 1.3-1.4 per most recent labs, repeat BMP in AM. #7. Diabetes mellitus type II with chronic neuropathy: Hold oral home regimen, continue home gabapentin regimen ADA diet, accu checks w/ ISS. #8. Hypothyroidism: We will continue patient home levothyroxine regimen. #9. Nonischemic cardiomyopathy: Last known echo 01/05/2018 with normal LV systolic function, EF 65%, mildly enlarged LA, mild MVI, mild TVI, trivial PVI, diastolic function indeterminate. #10. GERD: We will continue patient home PPI. #11. Obesity: Weight loss and lifestyle changes encouraged. #12. Gout: We will continue patient home allopurinol regimen. #13. DAYANA: CPAP nightly. #14. DVT prophylaxis: Lovenox. #15. CODE status: Patient JOHNSON is her Sister Claudette Lujan and living will is currently in place. Discussed CODE status at length including difference between FULL code, DNR-CCA and DNR-CC status. Following discussions about the differences in these status, requested DNR-CCA, no intubation status. Advanced Care Planning Face to Face Time: 16 minutes. Charges/Coding Visit Charges Inpatient E&M: 33991 Init Hosp L2 Procedures Hospitalists Procedures: 22383 Advncd Care Plan 30 Min
[2023-02-10 06:00] VITALS: BP 123/59; PULSE 76; RESP 17; TEMP 36.6; O2SAT 96
[2023-02-10 07:26] VITALS: BMI 31.9
[2023-02-10 07:27] VITALS: BP 119/53; PULSE 74; RESP 16; TEMP 36.6; O2SAT 97
[2023-02-10 08:56] LABS: Bedside Glucose 121 mg/dL (74-106)
[2023-02-10 09:01] LABS: Absolute Lymphocyte Count 1.03 X10^3/uL (0.83-4.51); Basophil# 0.02 X10^3/uL; Basophil% 0.3 % (0-1); Eosinophil# 0.13 X10^3/uL; Eosinophils% 1.7 % (0-5); Hematocrit 27.8 % (37-47); Hemoglobin 8.3 g/dL (12.0-15.0); Lymphocyte # 1.03 X10^3/ul (0.83-4.51); Lymphocyte % 13.6 % (19-41); Mean Corp Hgb Conc 29.9 g/dL (32-36); Mean Corpuscular Hgb 28.6 pg (27.0-32.0); Mean Corpuscular Volume 95.9 fL (81-99); Mean Platelet Vol. 9.5 fl (6.2-12.0); Monocyte# 0.39 X10^3/uL; Monocyte% 5.1 % (0-10); NRBC Flagged by Analyzer 0 % (0-5); Neutrophil # 5.98 X10^3/uL (2.7-7.7); Neutrophil % 78.9 % (47-70); Platelet Count 212 K/mm3 (150-450); RBC Distribution Width CV 14.9 % (11.6-14.6); RBC Distribution Width SD 51.3 fl (35.1-43.9); White Blood Count 7.6 K/mm3 (4.4-11.0)
[2023-02-10] MEDS: Gabapentin 300 MG Capsule PO ×3 (09:08→21:43)
[2023-02-10] MEDS: Folic Acid 1 MG Tablet PO (09:09)
[2023-02-10] MEDS: Multivitamins,Ther W-Minerals Tablet 1 TABLET PO (09:09)
[2023-02-10] MEDS: Allopurinol 100 MG Tablet 200 MG PO (09:09)
[2023-02-10] MEDS: Amiodarone 200 MG Tablet PO (09:10)
[2023-02-10] MEDS: Pantoprazole Sodium 40 MG Tablet PO (09:10)
[2023-02-10] MEDS: Carvedilol 25 MG Tablet PO ×2 (09:11→21:43)
[2023-02-10] MEDS: amLODIPine 2.5 MG Tablet PO (09:11)
[2023-02-10 09:48] LABS: ALB/GLOB Ratio 0.9 RATIO (0.9-2.4); AST(SGOT) 11 U/L (15-37); Alanine Aminotransfer ALT/SGPT 15 U/L (13-56); Albumin, Serum 2.9 g/dL (3.2-5.0); Alkaline Phosphatase 115 U/L (45-117); Anion Gap 2 (5-15); BUN 47 mg/dL (7-18); BUN/Creat Ratio 36.7 RATIO (10-20); Calcium,Total 8.8 mg/dL (8.5-10.1); Chloride 110 mmol/L (98-107); Creatinine, Serum 1.28 mg/dL (0.55-1.02); EST Glomerular Filtration Rate 42 mL/min (>60); Est Glom Filt Rate - Afr Amer 51 mL/min (>60); Estimated Creatinine Clearance 32.95 ml/min; Globulin 3.1 g/dL (2.2-4.2); Glucose 125 mg/dL (74-106); Potassium 4.1 mmol/L (3.5-5.1); Sodium Level 141 mmol/L (136-145)
--- NOTE | 2023-02-10 09:58 | CASEMGMT ---
Discharge Planning A list of home healthcare and SNF providers including quality and resource use data and consistent with the patient?s preferred geographic region, medical needs, and insurance network was created in [employer] Guide. This list was provided to the RN LOBITO and ELZA. Lisa Guillen, Discharge Planning Asst..
--- NOTE | 2023-02-10 10:20 | CM.UR ---
RN CM Face to Face with patient for initial transition planning/care coordination assessment. RN CM introduced self and role at [facility]. Patient lying in bed, alert and oriented. Patient willing to participate in assessment and is able to answer all questions appropriately. Care providers, pharmacy, and demographics verified. Patient wishes to discharge possible SNF pending therapy. A list of SNF and HHC providers including quality and resource use data and consistent with the patient?s preferred geographical region, medical needs, and insurance network were provided from the [employer] Guide. Patient prefers TCU for SNF if needed. Patient states he has no further needs or concerns at this time. SW notified of requests for TCU if needed pending therapy. CM to follow for discharge planning needs that may arise. PCP: Evan Specialists: JOLYNN, events and promotions assistant; Derick nurse behavioral health care; Hematology [facility]; anay Maza [facility]: yes Living Will/HPOA: yes, sister Claudette Lujan LNOK: sister Living Arrangements: Patient lives alone in a single story home with 2 steps and grab bar to enter the home. Patient states she was independent for self care and cooking, has cleaning service. Transportation: self, sister DME/HHC: Patient has shower chair, rasied toilet, lift chair, grab bars, walker, rollator, wheelchair, medical alert, cpap, nebulizer, pulse ox, and glucometer. Patient has previously been to TCU. Patient has had [facility] in the past. Disposition Plan: Anticipate TCU pending acceptance and precert. Ebonie INGRAM, RN, CM
[2023-02-10] MEDS: Colestipol 1 GM TABLET PO ×2 (10:31→21:43)
[2023-02-10] MEDS: 0.9% Saline Lock 10 ML Syringe IV (11:15)
[2023-02-10 12:15] LABS: Bedside Glucose 183 mg/dL (74-106)
[2023-02-10] MEDS: Psyllium 1 PACKET PO (13:12)
--- NOTE | 2023-02-10 13:34 | CASEMGMT ---
Patient has a Healthcare Power of Armed Security Officer and a Healthcare Living Will on file at [facility]. Patient's Healthcare Power of Armed Security Officer is her sister Claudette. Jonna Barba BOND TRADER ÓSCAR
[2023-02-10] MEDS: Arthritis Pain Compound 60 CLICK TUBE TOPICAL ×2 (14:08→21:46)
--- NOTE | 2023-02-10 14:36 | CASEMGMT ---
Met with patient to complete MARTINEZ form. MARTINEZ form explained to patient who voiced understanding and signed form. Original form placed in pt?s chart and copy provided to patient. Lisa Guillen, Discharge Planning Asst.
--- NOTE | 2023-02-10 15:02 | CASEMGMT ---
Addendum entered by Jonna Barba 02/10/23 15:29: SW notified patient TCU can take her. SW let patient know she will likely be at [facility] until Monday unless insurance happens to approve her before. Plan: d/c to [facility] TCU pending insurance approval. Jonna CANTRELL Original Note: TCU accepted patient and Annalisa will start pre-cert. ELZA will notify patient. Plan: d/c to [facility] TCU pending insurance approval. Jonna CANTRELL
[2023-02-10] MEDS: Levothyroxine 137 MCG Tablet PO (15:09)
--- NOTE | 2023-02-10 15:36 | PCM.PN.HOSP ---
Reason for Visit Reason for Visit: Diagnoses Unspecified injury of right lower leg, initial encounter (02/10/23) Subjective Subjective Patient seen at bedside this morning. Sitting comfortably in bed, conversing normally, no acute distress. States her right knee and leg pain are mildly improved this morning. She has not been up and out of bed yet today. She denies any other pain or discomfort. She denies any fevers or chills. No other acute concerns. Objective Data Objective Data Vital Signs: Vital Signs Temp Pulse Resp BP Pulse Ox O2 Del Method 97.9 F 74 16 119/53 L 97 Room Air 02/10/23 07:27 02/10/23 07:27 02/10/23 07:27 02/10/23 07:27 02/10/23 07:27 02/10/23 10:33 Oxygen Delivery Method Room Air Weight: 92.533 kg Body Mass Index (BMI) 31.9 Lab / Micro Data 02/10/23 08:48 02/10/23 08:48 Labs: Laboratory Results - last 24 hr 02/10/23 08:39: POC Glucose 121 H 02/10/23 08:48: WBC 7.6, RBC 2.90 L, Hgb 8.3 L, Hct 27.8 L, MCV 95.9, MCH 28.6, MCHC 29.9 L, RDW Std Deviation 51.3 H, RDW Coeff of Melanie 14.9 H, Plt Count 212, MPV 9.5, Immature Gran % (Auto) 0.400, Neut % (Auto) 78.9 H, Lymph % (Auto) 13.6 L, [place] % (Auto) 5.1, Eos % (Auto) 1.7, Baso % (Auto) 0.3, Absolute Neuts (auto) 6.0, Absolute Lymphs (auto) 1.03, Nucleated RBC % 0, Sodium 141, Potassium 4.1, Chloride 110 H, Carbon Dioxide 29.0, Anion Gap 2 L, BUN 47 H, Creatinine 1.28 H, Estim Creat Clear Calc 32.95, Est GFR (MDRD) Af Amer 51 L, Est GFR (MDRD) Non-Af 42 L, BUN/Creatinine Ratio 36.7 H, Glucose 125 H, Calcium 8.8, Total Bilirubin 0.30, AST 11 L, ALT 15, Alkaline Phosphatase 115, Total Protein 6.0 L, Albumin 2.9 L, Globulin 3.1, Albumin/Globulin Ratio 0.9 02/10/23 11:57: POC Glucose 183 H Radiography Diagnostic Testing: Radiology Impression Tibia/Fibula X-Ray 02/10/23 03:45 IMPRESSION: No acute fracture. Electronically Signed: Dao Haney DO at 4:00 EDT , Physical Exam Const alert, oriented x3 and no apparent distress Constitutional Narrative: Pleasant elderly female, obese, sitting comfortably in bed, conversing normally, no acute distress. General Appearance: cooperative, comfortable, well kempt and well developed HEENT normocephalic, head/scalp atraumatic, hearing grossly normal bilaterally, nasal mucous membranes and turbinates normal and moist oral mucous membranes Eyes PERRL, EOMs intact bilaterally and conjunctivae normal Neck full ROM, no lymphadenopathy and supple Lymph Lymphatic: no lymphadenopathy noted Chest inspection of chest normal Resp normal respiratory effort, normal air movement, no use of accessory muscles and clear to auscultation bilaterally Cardio regular rate, regular rhythm, no murmurs and peripheral pulses 2+ throughout GI normal to inspection, nondistended, normoactive bowel sounds, soft to palpation, non-tender and non-distended Back/Spine normal ROM Extremity normal to inspection, full ROM and no pedal edema Skin no rashes or lesions noted Psych mental status grossly normal Assessment & Plan Assessment/Plan (1) Weakness: PLAN: Plan Patient is an 82-year-old female with history of chronic debility, CKD stage III, type 2 diabetes, nonischemic cardiomyopathy, PAF/flutter and obesity who presented to [facility] on 02/10/2023 with right leg injury and worsening weakness. 1. Chronic debility with acutely worsened functional status Lives alone at home. He uses a walker to ambulate around the home. Suffered mechanical fall at home with right leg injury as noted below. Patient concerned she cannot care for self at home and presented for further evaluation for possible SNF placement. ? PT/OT/case management following. Planning for SNF placement at discharge. Conservative treatment of right leg injury as noted below. 2. Right leg injury Secondary to mechanical fall at home. X-ray tibia and fibula on admit showed no acute fracture. ? PT/OT following. Maintain fall precautions. Ice with elevation. Tylenol as needed and tramadol as needed for pain control. Chronic medical conditions: ? PAF/flutter: Continue home amiodarone. Not on chronic anticoagulation therapy, potentially secondary to fall risk, will continue to hold for now. ? Hypertension: Continue home Coreg and amlodipine. ? Chronic normocytic anemia: Hemoglobin 8.3 on admission, baseline around 8-10. Continue home iron supplement. ? CKD stage III: Baseline creatinine 1.2-1.4, creatinine 1.2 on admit. No need to monitor further BMPs. ? Nonischemic cardiomyopathy: Last known echo 01/2018 with EF 65%, mildly enlarged LA, mild valvular issues, no other concerns. Continue home medications as above. ? Type 2 diabetes: Home regimen of dulaglutide, glimepiride, pioglitazone, gabapentin. Sliding scale insulin while inpatient. Continue home gabapentin. DVT prophylaxis: Lovenox CODE STATUS: DNR CCA, DO NOT INTUBATE Expected disposition: SNF, TBD Total clinical time spent by myself addressing the patient's medical issues, reviewing all the data, and collaborating with patient's care team: 35 minutes. Charges/Coding Visit Charges Inpatient E&M: 80346 Subs Hosp L2
[2023-02-10 15:50] VITALS: O2SAT 96
[2023-02-10 16:00] VITALS: BP 141/66; PULSE 87; RESP 17; TEMP 37.2; O2SAT 95
--- NOTE | 2023-02-10 16:00 | CHAPLAIN ---
Type of Pastoral Visit _x__ Initial Visit ___ Follow-up Visit ___ On-call Visit ___ General Patient Visit ___ Spiritual Assessment ___ Family Conference ___ Bereavement ___ Rapid Response ___ Code Blue ___ Other (describe below) Pastoral Care Referral From _x__ Patient ___ Family ___ Nurse ___ Physician ___ Jboss Developer ___ Edger Technician ___ Other (describe below) Sacrament/Intervention _x__ Active listening ___ Anointing ___ Samaritan ___ Bereavement ___ Communion ___ Brigida exploration ___ ___ Life review _x__ Prayer ___ Reconciliation ___ Sacrament of Sick _x__ Supportive presence ___ Wedding ___ Other (describe below) Pastoral Comments patient presents with a good attitude despite having a fall that leaves her unable to walk; pt giving it a positive look and hopeful about a full recovery; pt acknowledges that it could have been worse; pt welcomes prayer for support
[2023-02-10 17:44] LABS: Bedside Glucose 167 mg/dL (74-106)
--- NOTE | 2023-02-10 17:50 | NURSING ---
Report called to RAVI Doran.
[2023-02-10] MEDS: Acetaminophen 325 MG Tablet 650 MG PO (20:30)
[2023-02-10 20:45] VITALS: BP 119/57; PULSE 86; RESP 16; TEMP 36.6; O2SAT 95
[2023-02-10] MEDS: Insulin Lispro 100 UNIT/ML INSULN.PEN SC (21:43)
[2023-02-10] MEDS: Iron Polysaccharide Complex 150 MG CAPSULE 300 MG PO (21:43)
[2023-02-10 23:06] LABS: Bedside Glucose 213 mg/dL (74-106)
[2023-02-11 02:20] VITALS: BP 114/50; PULSE 79; RESP 16; TEMP 37.2; O2SAT 94
[2023-02-11] MEDS: traMADol 50 MG Tablet PO ×3 (02:24→19:44)
[2023-02-11] MEDS: Levothyroxine 137 MCG Tablet PO (06:25)
[2023-02-11] MEDS: Gabapentin 300 MG Capsule PO ×3 (06:25→21:38)
[2023-02-11 06:46] LABS: Bedside Glucose 132 mg/dL (74-106)
[2023-02-11 07:52] VITALS: BP 124/77; PULSE 84; RESP 18; TEMP 37.1; O2SAT 94
[2023-02-11] MEDS: Senna/Docusate Sodium 1 Tablet 2 TABLET PO (07:58)
[2023-02-11] MEDS: Allopurinol 100 MG Tablet 200 MG PO (07:58)
[2023-02-11] MEDS: Multivitamins,Ther W-Minerals Tablet 1 TABLET PO (07:58)
[2023-02-11] MEDS: Acetaminophen 325 MG Tablet 650 MG PO ×2 (07:59→20:44)
[2023-02-11] MEDS: Folic Acid 1 MG Tablet PO (07:59)
[2023-02-11] MEDS: Pantoprazole Sodium 40 MG Tablet PO (08:00)
[2023-02-11] MEDS: Enoxaparin 40 MG/0.4 ML Syringe SC (08:00)
[2023-02-11] MEDS: Amiodarone 200 MG Tablet PO (08:00)
[2023-02-11] MEDS: Menthol/Lanolin/Calamine/Znox 113 GM Tube 1 APPLIC TOPICAL ×2 (08:00→19:45)
[2023-02-11] MEDS: Carvedilol 25 MG Tablet PO ×2 (08:00→21:38)
[2023-02-11] MEDS: Arthritis Pain Compound 60 CLICK TUBE TOPICAL ×2 (08:01→19:46)
[2023-02-11] MEDS: Psyllium 1 PACKET PO (08:01)
[2023-02-11] MEDS: Colestipol 1 GM TABLET PO ×2 (08:02→20:44)
[2023-02-11] MEDS: amLODIPine 2.5 MG Tablet PO (08:02)
[2023-02-11 08:15] VITALS: O2SAT 95
[2023-02-11] MEDS: Insulin Lispro 100 UNIT/ML INSULN.PEN SC ×3 (11:28→21:38)
[2023-02-11 11:47] LABS: Bedside Glucose 269 mg/dL (74-106)
--- NOTE | 2023-02-11 12:56 | PN.HOSP_ITS ---
Reason for Visit Reason for Visit: Diagnoses Weakness (02/10/23) Unspecified injury of right lower leg, initial encounter (02/10/23) Subjective Subjective No acute events overnight. Patient seen at bedside this morning. Sitting comfortably in bed, conversing normally, no acute distress. States that her right leg pain is improved this morning. She continues to feel quite weak overall however. Was not able to do much with physical therapy yesterday. She denies any fevers or chills. Denies any chest pain or shortness of breath. No other acute concerns. Objective Data Objective Data Vital Signs: Vital Signs Temp Pulse Resp BP Pulse Ox O2 Del Method 98.8 F 84 18 124/77 H 95 Room Air 02/11/23 07:52 02/11/23 07:52 02/11/23 07:52 02/11/23 07:52 02/11/23 08:15 02/11/23 08:15 Oxygen Delivery Method Room Air Weight: 92.533 kg Body Mass Index (BMI) 31.9 Intake & Output: Intake and Output for Last 24 Hours 02/09/23 02/10/23 02/11/23 23:59 23:59 23:59 Intake Total 900 / 900 Output Total 450 / 450 Balance 900 / 700 -450 / -450 Lab / Micro Data 02/10/23 08:48 02/10/23 08:48 Labs: Laboratory Results - last 24 hr 02/10/23 16:54: POC Glucose 167 H 02/10/23 21:39: POC Glucose 213 H 02/11/23 06:24: POC Glucose 132 H 02/11/23 11:26: POC Glucose 269 H Physical Exam Const alert, oriented x3 and no apparent distress Constitutional Narrative: Pleasant elderly female, obese, sitting comfortably in bed, conversing normally, no acute distress. General Appearance: cooperative, comfortable, well kempt and well developed HEENT normocephalic, head/scalp atraumatic, hearing grossly normal bilaterally, nasal mucous membranes and turbinates normal and moist oral mucous membranes Eyes PERRL, EOMs intact bilaterally and conjunctivae normal Neck full ROM, no lymphadenopathy and supple Lymph Lymphatic: no lymphadenopathy noted Chest inspection of chest normal Resp normal respiratory effort, normal air movement, no use of accessory muscles and clear to auscultation bilaterally Cardio regular rate, regular rhythm, no murmurs and peripheral pulses 2+ throughout GI normal to inspection, nondistended, normoactive bowel sounds, soft to palpation, non-tender and non-distended Back/Spine normal ROM Extremity normal to inspection, full ROM and no pedal edema Skin no rashes or lesions noted Psych mental status grossly normal Assessment & Plan Assessment/Plan (1) Weakness: PLAN: Plan Patient is an 82-year-old female with history of chronic debility, CKD stage III, type 2 diabetes, nonischemic cardiomyopathy, PAF/flutter and obesity who presented to [facility] on 02/10/2023 with right leg injury and worsening weakness. 1. Chronic debility with acutely worsened functional status Lives alone at home. He uses a walker to ambulate around the home. Suffered mechanical fall at home with right leg injury as noted below. Patient concerned she cannot care for self at home and presented for further evaluation for possible SNF placement. ? PT/OT/case management following. Planning for SNF placement at discharge. Conservative treatment of right leg injury as noted below. 2. Right leg injury Secondary to mechanical fall at home. X-ray tibia and fibula on admit showed no acute fracture. ? PT/OT following. Maintain fall precautions. Ice with elevation. Tylenol as needed and tramadol as needed for pain control. Chronic medical conditions: ? PAF/flutter: Continue home amiodarone. Not on chronic anticoagulation therapy, potentially secondary to fall risk, will continue to hold for now. ? Hypertension: Continue home Coreg and amlodipine. ? Chronic normocytic anemia: Hemoglobin 8.3 on admission, baseline around 8-10. Continue home iron supplement. ? CKD stage III: Baseline creatinine 1.2-1.4, creatinine 1.2 on admit. No need to monitor further BMPs. ? Nonischemic cardiomyopathy: Last known echo 01/2018 with EF 65%, mildly enlarged LA, mild valvular issues, no other concerns. Continue home medications as above. ? Type 2 diabetes: Home regimen of dulaglutide, glimepiride, pioglitazone, gabapentin. Sliding scale insulin while inpatient. Continue home gabapentin. DVT prophylaxis: Lovenox CODE STATUS: DNR CCA, DO NOT INTUBATE Expected disposition: SNF, TBD Total clinical time spent by myself addressing the patient's medical issues, reviewing all the data, and collaborating with patient's care team: 35 minutes. Charges/Coding Visit Charges Inpatient E&M: 62911 Subs Hosp L2
[2023-02-11 13:56] VITALS: PULSE 77; RESP 18; TEMP 37.2; O2SAT 96
[2023-02-11 16:42] LABS: Bedside Glucose 189 mg/dL (74-106)
[2023-02-11 20:00] VITALS: BP 145/52; PULSE 91; RESP 16; TEMP 37.2; O2SAT 95
[2023-02-11] MEDS: Iron Polysaccharide Complex 150 MG CAPSULE 300 MG PO (21:38)
[2023-02-11 21:58] LABS: Bedside Glucose 266 mg/dL (74-106)
--- NOTE | 2023-02-11 22:19 | PCM.HOSP.N ---
Hospitalist Note Patient with dysuria complaint and noting foul smelling urine. UA, UCx requested.
[2023-02-11 22:46] LABS: Mucous, Urine 0 SEEN /hpf (<or=2+); Red Blood Cells-Urine 0 SEEN /hpf (0-5); Squamous Epithelial Cells - UA 0 SEEN /hpf (5-10)
[2023-02-11 22:49] LABS: Color, Urine Yellow (Yellow); Glucose, Dipstick Normal (Normal); Ketone-Dipstick Negative (Negative); Leukocyte Esterase-Dipstick 100 /ul (Negative); Nitrite-Dipstick Negative (Negative); Occult Blood-Urine Negative /ul (Negative); Protein-Dipstick Negative (Negative); Specific Gravity, Urine 1.015 (1.002-1.030); Urine Bilirubin Dipstick Negative (Negative); Urine Clarity Clear (Clear); Urine Urobilinogen Normal (Normal)
[2023-02-11 22:56] LABS: Bacteria 2+ /hpf (None Seen); White Blood Cells 10-25 SEEN /hpf (0-5)
[2023-02-12 02:00] VITALS: BP 132/51; PULSE 80; RESP 16; TEMP 37.2; O2SAT 95
[2023-02-12] MEDS: Levothyroxine 137 MCG Tablet PO (06:16)
[2023-02-12] MEDS: Insulin Lispro 100 UNIT/ML INSULN.PEN SC ×4 (06:17→21:24)
[2023-02-12] MEDS: Gabapentin 300 MG Capsule PO ×3 (06:17→21:23)
[2023-02-12] MEDS: Acetaminophen 325 MG Tablet 650 MG PO ×2 (06:20→14:29)
[2023-02-12 06:41] LABS: Bedside Glucose 167 mg/dL (74-106)
[2023-02-12 07:47] VITALS: BP 119/48; PULSE 77; RESP 18; TEMP 37.5; O2SAT 94
[2023-02-12] MEDS: traMADol 50 MG Tablet PO ×2 (07:57→21:22)
[2023-02-12] MEDS: Folic Acid 1 MG Tablet PO (07:58)
[2023-02-12] MEDS: Senna/Docusate Sodium 1 Tablet 2 TABLET PO (07:58)
[2023-02-12] MEDS: Multivitamins,Ther W-Minerals Tablet 1 TABLET PO (07:58)
[2023-02-12] MEDS: Enoxaparin 40 MG/0.4 ML Syringe SC (07:58)
[2023-02-12] MEDS: Allopurinol 100 MG Tablet 200 MG PO (07:58)
[2023-02-12] MEDS: Menthol/Lanolin/Calamine/Znox 113 GM Tube 1 APPLIC TOPICAL ×2 (07:58→21:24)
[2023-02-12] MEDS: Pantoprazole Sodium 40 MG Tablet PO (07:59)
[2023-02-12] MEDS: Colestipol 1 GM TABLET PO ×2 (07:59→21:24)
[2023-02-12] MEDS: Arthritis Pain Compound 60 CLICK TUBE TOPICAL ×2 (07:59→21:23)
[2023-02-12] MEDS: Psyllium 1 PACKET PO (07:59)
[2023-02-12] MEDS: Carvedilol 25 MG Tablet PO ×2 (08:00→21:24)
[2023-02-12] MEDS: amLODIPine 2.5 MG Tablet PO (08:00)
[2023-02-12] MEDS: Amiodarone 200 MG Tablet PO (08:00)
[2023-02-12 08:10] VITALS: O2SAT 95
[2023-02-12 09:48] LABS: Hematocrit 23.7 % (37-47); Hemoglobin 7.5 g/dL (12.0-15.0); Mean Corp Hgb Conc 31.6 g/dL (32-36); Mean Corpuscular Hgb 29.5 pg (27.0-32.0); Mean Corpuscular Volume 93.3 fL (81-99); Mean Platelet Vol. 9.9 fl (6.2-12.0); Platelet Count 158 K/mm3 (150-450); RBC Distribution Width CV 14.8 % (11.6-14.6); RBC Distribution Width SD 49.8 fl (35.1-43.9); Red Blood Count 2.54 M/mm3 (4.2-5.4); White Blood Count 9.2 K/mm3 (4.4-11.0)
[2023-02-12 10:05] LABS: Anion Gap 6 (5-15); BUN 57 mg/dL (7-18); BUN/Creat Ratio 33.5 RATIO (10-20); Calcium,Total 8.3 mg/dL (8.5-10.1); Chloride 100 mmol/L (98-107); EST Glomerular Filtration Rate 31 mL/min (>60); Est Glom Filt Rate - Afr Amer 37 mL/min (>60); Estimated Creatinine Clearance 24.81 ml/min; Glucose 234 mg/dL (74-106); Potassium 4.3 mmol/L (3.5-5.1); Sodium Level 132 mmol/L (136-145)
[2023-02-12] MEDS: 0.9% Saline Lock 10 ML Syringe IV ×2 (10:45→16:41)
[2023-02-12] MEDS: 0.9% Normal Saline (1000mL) 1,000 ML 999 ML IV (10:46)
--- NOTE | 2023-02-12 12:11 | PCM.PN.HOSP ---
Reason for Visit Reason for Visit: Diagnoses Weakness (02/10/23) Unspecified injury of right lower leg, initial encounter (02/10/23) Subjective Subjective Patient reported some dysuria overnight, had UA and urine culture drawn. See Dr. Zimmerman's note for further details. Patient seen at bedside this morning. States that her dysuria has improved since overnight. She continues to feel quite weak overall but otherwise has been doing fine. Has been eating and drinking well. Denies any fevers or chills. Denies any other pain or discomfort. No other acute concerns. Objective Data Objective Data Vital Signs: Vital Signs Temp Pulse Resp BP Pulse Ox O2 Del Method 99.5 F H 77 18 119/48 L 95 Room Air 02/12/23 07:47 02/12/23 07:47 02/12/23 07:47 02/12/23 07:47 02/12/23 08:10 02/12/23 08:10 Oxygen Delivery Method Room Air Weight: 92.533 kg Body Mass Index (BMI) 31.9 Intake & Output: Intake and Output for Last 24 Hours 02/10/23 02/11/23 02/12/23 23:59 23:59 23:59 Intake Total 900 / 900 1000 / 1000 Output Total 900 / 1100 500 / 500 Balance 900 / 700 -900 / -1100 500 / 500 Lab / Micro Data 02/12/23 09:40 02/12/23 09:40 Labs: Laboratory Results - last 24 hr 02/11/23 16:21: POC Glucose 189 H 02/11/23 21:36: POC Glucose 266 H 02/11/23 22:40: Urine Color Yellow, Urine Clarity Clear, Urine pH 5.0, Ur Specific [place] 1.015, Urine Protein Negative, Urine Glucose (UA) Normal, Urine Ketones Negative, Urine Occult Blood Negative, Urine Nitrite Negative, Urine Bilirubin Negative, Urine Urobilinogen Normal, Ur Leukocyte Esterase 100 H, Urine RBC 0 SEEN, Urine WBC 10-25 SEEN, Ur Squamous Epith Cells 0 SEEN, Urine Bacteria 2+, Urine Mucus 0 SEEN 02/12/23 06:15: POC Glucose 167 H 02/12/23 09:40: WBC 9.2, RBC 2.54 L, Hgb 7.5 L, Hct 23.7 L, MCV 93.3, MCH 29.5, MCHC 31.6 L D, RDW Std Deviation 49.8 H, RDW Coeff of Melanie 14.8 H, Plt Count 158, MPV 9.9, Sodium 132 L, Potassium 4.3, Chloride 100, Carbon Dioxide 26.0, Anion Gap 6, BUN 57 H, Creatinine 1.70 H, Estim Creat Clear Calc 24.81, Est GFR (MDRD) Af Amer 37 L, Est GFR (MDRD) Non-Af 31 L, BUN/Creatinine Ratio 33.5 H, Glucose 234 H, Calcium 8.3 L Physical Exam Const alert, oriented x3 and no apparent distress Constitutional Narrative: Pleasant elderly female, obese, sitting comfortably in bed, conversing normally, no acute distress. General Appearance: cooperative, comfortable, well kempt and well developed HEENT normocephalic, head/scalp atraumatic, hearing grossly normal bilaterally, nasal mucous membranes and turbinates normal and moist oral mucous membranes Eyes PERRL, EOMs intact bilaterally and conjunctivae normal Neck full ROM, no lymphadenopathy and supple Lymph Lymphatic: no lymphadenopathy noted Chest inspection of chest normal Resp normal respiratory effort, normal air movement, no use of accessory muscles and clear to auscultation bilaterally Cardio regular rate, regular rhythm, no murmurs and peripheral pulses 2+ throughout GI normal to inspection, nondistended, normoactive bowel sounds, soft to palpation, non-tender and non-distended Back/Spine normal ROM Extremity normal to inspection, full ROM and no pedal edema Skin no rashes or lesions noted Psych mental status grossly normal Assessment & Plan Assessment/Plan (1) Weakness: PLAN: Plan Patient is an 82-year-old female with history of chronic debility, CKD stage III, type 2 diabetes, nonischemic cardiomyopathy, PAF/flutter and obesity who presented to [facility] on 02/10/2023 with right leg injury and worsening weakness. 1. Chronic debility with acutely worsened functional status Lives alone at home. He uses a walker to ambulate around the home. Suffered mechanical fall at home with right leg injury as noted below. Patient concerned she cannot care for self at home and presented for further evaluation for possible SNF placement. ? PT/OT/case management following. Planning for SNF placement at discharge. Conservative treatment of right leg injury as noted below. 2. Right leg injury Secondary to mechanical fall at home. X-ray tibia and fibula on admit showed no acute fracture. ? PT/OT following. Maintain fall precautions. Ice with elevation. Tylenol as needed and tramadol as needed for pain control. 3. Dysuria Reported on evening of 02/11. UA drawn, showed 100 leukocyte esterase, negative nitrites, 2+ bacteria. Urine culture pending. Patient afebrile, vitals otherwise stable. WBC count is normal. ? We will hold on antibiotics for possible UTI for now. Follow-up urine culture. Chronic medical conditions: ? PAF/flutter: Continue home amiodarone. Not on chronic anticoagulation therapy, potentially secondary to fall risk, will continue to hold for now. ? Hypertension: Continue home Coreg and amlodipine. ? Chronic normocytic anemia: Hemoglobin 8.3 on admission, baseline around 8-10. Continue home iron supplement. ? CKD stage III: Baseline creatinine 1.2-1.4, creatinine 1.2 on admit. No need to monitor further BMPs. ? Nonischemic cardiomyopathy: Last known echo 01/2018 with EF 65%, mildly enlarged LA, mild valvular issues, no other concerns. Continue home medications as above. ? Type 2 diabetes: Home regimen of dulaglutide, glimepiride, pioglitazone, gabapentin. Sliding scale insulin while inpatient. Continue home gabapentin. DVT prophylaxis: Lovenox CODE STATUS: DNR CCA, DO NOT INTUBATE Expected disposition: SNF, TBD Total clinical time spent by myself addressing the patient's medical issues, reviewing all the data, and collaborating with patient's care team: 35 minutes. Charges/Coding Visit Charges Inpatient E&M: 22161 Subs Hosp L2
[2023-02-12 12:12] LABS: Bedside Glucose 239 mg/dL (74-106)
[2023-02-12 14:25] VITALS: BP 128/59; PULSE 83; RESP 18; TEMP 37.9; O2SAT 96
[2023-02-12] MEDS: Ceftriaxone 1 GM/50 ML BAG IV (16:41)
[2023-02-12] MEDS: 0.9% Normal Saline (250mL Bag) 250 ML 15 ML IV (16:41)
[2023-02-12 17:04] LABS: Bedside Glucose 232 mg/dL (74-106)
[2023-02-12 20:25] VITALS: BP 154/58; PULSE 87; RESP 18; TEMP 36.7; O2SAT 95
[2023-02-12 20:28] VITALS: O2SAT 95
[2023-02-12] MEDS: Iron Polysaccharide Complex 150 MG CAPSULE 300 MG PO (21:24)
[2023-02-12 21:46] LABS: Bedside Glucose 246 mg/dL (74-106)
--- NOTE | 2023-02-12 23:15 | CPS ---
Patient refused PAP therapy for the night. Stated she would wear O2 if needed.
[2023-02-13] VITALS (7 sets, daily range): BP systolic 121–143; BP diastolic 41–53; PULSE 80–86; RESP 15–18; TEMP 36.8–38.7; O2SAT 92–99; BMI 32.5
[2023-02-13] MEDS: Acetaminophen 325 MG Tablet 650 MG PO ×3 (03:13→16:40)
--- NOTE | 2023-02-13 04:06 | PCM.HOSP.N ---
Hospitalist Note UA not marked, UCx without marked growth. Febrile. Will add CXR and COVID PCR. If negative may need to consider respiratory panel.
--- NOTE | 2023-02-13 05:20 | RAD_ITS ---
INDICATION: Fever EXAMINATION/TECHNIQUE: X-RAY - XR Chest 1 View COMPARISON: Prior study dated: 10/31/2022 FINDINGS: LINES/DEVICES: None LUNGS: The lungs are well expanded. Blunting at the left costophrenic angle suggesting small pleural effusion. No edema. No dense consolidation. No pneumothorax. MEDIASTINUM AND CARDIOVASCULAR STRUCTURES: Cardiac silhouette not enlarged. Central airways and mediastinal contour are unremarkable. BONES AND SOFT TISSUES: Unremarkable. RAD/Chest 1 View (Portable) IMPRESSION: Small left-sided pleural effusion. No dense consolidation. Electronically Signed: Donovan Jimenez MD at 6:05 EDT ,
[2023-02-13] MEDS: traMADol 50 MG Tablet PO ×3 (06:16→21:06)
[2023-02-13] MEDS: Gabapentin 300 MG Capsule PO ×3 (06:16→21:06)
[2023-02-13] MEDS: Levothyroxine 137 MCG Tablet PO (06:17)
[2023-02-13] MEDS: Insulin Lispro 100 UNIT/ML INSULN.PEN SC ×4 (06:18→21:06)
[2023-02-13 06:39] LABS: Hematocrit 24.6 % (37-47); Hemoglobin 7.8 g/dL (12.0-15.0); Mean Corp Hgb Conc 31.7 g/dL (32-36); Mean Corpuscular Hgb 29.2 pg (27.0-32.0); Mean Corpuscular Volume 92.1 fL (81-99); Platelet Count 174 K/mm3 (150-450); RBC Distribution Width CV 14.6 % (11.6-14.6); Red Blood Count 2.67 M/mm3 (4.2-5.4); White Blood Count 10.2 K/mm3 (4.4-11.0)
[2023-02-13 06:45] LABS: Bedside Glucose 190 mg/dL (74-106)
[2023-02-13 07:07] LABS: Anion Gap 6 (5-15); BUN 66 mg/dL (7-18); BUN/Creat Ratio 37.3 RATIO (10-20); Calcium,Total 8.6 mg/dL (8.5-10.1); Chloride 100 mmol/L (98-107); Creatinine, Serum 1.77 mg/dL (0.55-1.02); EST Glomerular Filtration Rate 29 mL/min (>60); Est Glom Filt Rate - Afr Amer 35 mL/min (>60); Estimated Creatinine Clearance 23.83 ml/min; Glucose 198 mg/dL (74-106); Potassium 4.8 mmol/L (3.5-5.1); Sodium Level 131 mmol/L (136-145)
--- NOTE | 2023-02-13 08:09 | CT_ITS ---
CT RIGHT LOWER EXTREMITY( LEFT LOWER LEG )WITH 3-D IMAGING. CLINICAL INDICATION: Pain. Unable to bear weight following a recent fall. Stage III chronic renal disease. TECHNIQUE: Axial CT images of the RIGHT lower extremity was performed without IV contrast material. Coronal and sagittal reformats were provided. RADIATION DOSAGE (If Supplied By Facility): CTDIvol = ( 15.35 ) mGy, DLP = ( 1285.63 ) mGycm COMPARISON: Prior study dated: Plain radiographs dated February 10, 2023. FINDINGS: Bones: There is evidence of a nondisplaced fracture along the posterior aspect of the medial tibial plateau. The patient is status post total knee replacement. Soft Tissues: Moderate sized joint effusion. Soft tissue swelling. CT/Extremity Lower without Contra IMPRESSION: Nondisplaced fracture through the posterior aspect of the medial tibial plateau. Joint effusion. Soft tissue swelling. Status post total knee replacement. Electronically Signed: Jacob Brown MD at 9:09 EDT ,
--- NOTE | 2023-02-13 08:11 | VDLE_ITS ---
Reason For Study: Swelling BLE RIGHT LEFT GSV is normal. GSV is normal. CFV is compressible, spontaneous, phasic, CFV is compressible, spontaneous, phasic, competent and demonstrates normal competent, and demonstrates normal augmentation. augmentation. FV is compressible, spontaneous, phasic, FV is compressible, spontaneous, phasic, competent and demonstrates normal competent and demonstrates normal augmentation. augmentation. POP V is compressible, spontaneous, phasic, POP V is compressible, spontaneous, phasic, competent and demonstrates normal competent and demonstrates normal augmentation. augmentation. T/P Trunk is compressible. T/P Trunk is compressible. PTV is compressible. PTV is compressible. RT PerV is compressible. LT PerV is compressible. Procedure This is a venous duplex using B-mode, color flow and spectral Doppler. Exam performed portable in patient room. The study was technically difficult. Difficult to viualize behind Rt Knee due to tibial fracture and suboptimal patient positioning. A preliminary report was called and/or faxed to [facility]. VL/Venous Duplex US - Kavon Extrem Interpretation Summary Deep veins of the bilateral lower extremities are patent and compressible segme ntally. There is no evidence of bilateral lower extremity deep vein thrombosis. The bilateral great saphenous veins appear patent and compressible segmentally. Ordering Physician: Sheela Caruso Referring Physician: Stefan Gordon Performed By: Kalyn Rodriguez, RDCS, RVT
--- NOTE | 2023-02-13 08:11 | PCM.PN.HOSP ---
Reason for Visit Reason for Visit: Mechanical fall/right lower leg pain Subjective Subjective Patient is an 82-year-old white female who presented to the emergency department was prehospital on 02/10/2023 after sustaining a mechanical fall. She reported at 3:30 in the morning she was getting up to use the bathroom and utilizing her walker however unfortunately she fell and injured her right leg. She was unsure of the exact mechanism injured her leg but had significant pain and debility following the fall and had difficulty bearing weight. Vital signs on presentation were unremarkable and she was admitted under observation status for further placement. She had difficulty with physical therapy and will require ongoing therapy services. She continues to have pain in her distal leg and has since developed a fever. UA was obtained and was unremarkable. Chest x-ray was obtained and shows only a small left-sided pleural effusion but was otherwise unremarkable for any infiltrate. Her UA is not suggestive of infection however current urine culture is growing gram-negative but colony counts are low between 11,020 5000. Patient was having symptoms. Procalcitonin was obtained and was slightly elevated however she has some renal dysfunction that seems to be somewhat worsening. COVID PCR has been done and is pending. Tmax overnight was 101.6 which was this morning at 3:20 AM. She has no leukocytosis however her white count does seem to be trending up. Patient reports she is feeling okay and denies any chills, pain, cough, shortness of breath. He does have considerable pain when trying to weight-bear on her right lower extremity. Objective Data Objective Data Vital Signs: Vital Signs Temp Pulse Resp BP Pulse Ox O2 Del Method 101.6 F H 85 16 134/51 H 92 Room Air 02/13/23 03:20 02/13/23 03:20 02/13/23 03:20 02/13/23 03:20 02/13/23 03:20 02/13/23 03:20 Oxygen Delivery Method Room Air Weight: 94.256 kg Body Mass Index (BMI) 32.5 Intake & Output: Intake and Output for Last 24 Hours 02/11/23 02/12/23 02/13/23 23:59 23:59 23:59 Intake Total 1258 / 1258 90 / 90 Output Total 900 / 1100 900 / 900 Balance -900 / -1100 358 / 358 90 / 90 Lab / Micro Data 02/13/23 06:22 02/13/23 06:22 Labs: Laboratory Results - last 24 hr 02/12/23 09:40: WBC 9.2, RBC 2.54 L, Hgb 7.5 L, Hct 23.7 L, MCV 93.3, MCH 29.5, MCHC 31.6 L D, RDW Std Deviation 49.8 H, RDW Coeff of Melanie 14.8 H, Plt Count 158, MPV 9.9, Sodium 132 L, Potassium 4.3, Chloride 100, Carbon Dioxide 26.0, Anion Gap 6, BUN 57 H, Creatinine 1.70 H, Estim Creat Clear Calc 24.81, Est GFR (MDRD) Af Amer 37 L, Est GFR (MDRD) Non-Af 31 L, BUN/Creatinine Ratio 33.5 H, Glucose 234 H, Calcium 8.3 L 02/12/23 11:51: POC Glucose 239 H 02/12/23 16:38: POC Glucose 232 H 02/12/23 21:22: POC Glucose 246 H 02/13/23 06:13: POC Glucose 190 H 02/13/23 06:22: WBC 10.2, RBC 2.67 L, Hgb 7.8 L, Hct 24.6 L, MCV 92.1, MCH 29.2, MCHC 31.7 L, RDW Std Deviation 49.0 H, RDW Coeff of Melanie 14.6, Plt Count 174, MPV 10.0, Sodium 131 L, Potassium 4.8, Chloride 100, Carbon Dioxide 25.0, Anion Gap 6, BUN 66 H, Creatinine 1.77 H, Estim Creat Clear Calc 23.83, Est GFR (MDRD) Af Amer 35 L, Est GFR (MDRD) Non-Af 29 L, BUN/Creatinine Ratio 37.3 H, Glucose 198 H, Calcium 8.6 Micro: Microbiology 02/11/23 22:40 Urine, Clean Catch Urine Culture - Preliminary GNR lactose cat scan technologist Radiography Diagnostic Testing: Radiology Impression Chest X-Ray 02/13/23 05:20 IMPRESSION: Small left-sided pleural effusion. No dense consolidation. Electronically Signed: Donovan Jimenez MD at 6:05 EDT , Physical Exam Const alert, oriented x3, no apparent distress and well nourished Constitutional Narrative: Obese, elderly, white female, sitting up in bed, extremely pleasant, watching television, appears comfortable HEENT head/scalp atraumatic, moist oral mucous membranes and oropharynx normal HEENT Narrative: Mallampati is 2, no thrush Resp normal respiratory effort, no retractions, no use of accessory muscles and clear to auscultation bilaterally Auscultation: Negative for rales, rhonchi or wheezes Cardio regular rate, regular rhythm, S1 normal heart sound, S2 normal heart sound, no murmurs, no rub, no gallops and no clicks GI normal to inspection, nondistended, normoactive bowel sounds, soft to palpation and non-tender Extremity no clubbing, cyanosis or edema Extremity Narrative: 2+ pedal pulses, mild tenderness at right tibial plateau region Neuro oriented x3, CN's II-XII intact bilaterally and no focal motor deficits Neuro Narrative: Able to move all extremities but deep creased right lower extremity movement due to pain Speech: speech normal Psych affect normal Psych Narrative: Very pleasant, interacts appropriately Assessment & Plan Assessment/Plan (1) Injury of right lower extremity: (2) Inability to ambulate due to right knee: (3) Fever, unknown origin: (4) Weakness: (5) Elevated serum creatinine: PLAN: Plan Fever -Origin is unclear -UA was unremarkable and culture is showing gram-negative aris lactose cat scan technologist but colony counts are 11,000-25,000 -Chest x-ray is unremarkable for infiltrate -COVID PCR is pending -Check bilateral lower extremity Dopplers -Incentive spirometer -Continue ceftriaxone for now--> May need to broaden -Check blood cultures -Check a.m. CBC with differential Serum creatinine elevation on CKD stage IIIb -Baseline serum creatinine seems to fluctuate but is anywhere from 1.3-1.65 -Current serum creatinine is trending up at 1.77--> was 1.28 on presentation which is low for her -Avoid nephrotoxins -We will give IV fluids normal saline 75 cc/h x 1 bag -Repeat BMP in a.m. -Be related to insensible losses with fever as it is reported her oral intake has been adequate Right lower extremity pain/inability ambulate -Plain films are unremarkable -We will check CT of the lower leg since she has had ongoing issues with weightbearing -Continue PT/OT -We will likely need placement at discharge-Case management/social work consulted Generalized weakness -Continue therapy services PAF/paroxysmal flutter -Continue home amiodarone -Not on any chronic anticoagulation due to fall risk Hypertension -Continue Coreg -Continue amlodipine -Monitor blood pressures especially with fever Chronic normocytic anemia -Hemoglobin is stable -Continue iron supplementation Nonischemic cardiomyopathy -Last echocardiogram done in 2017 showed EF of 65% with mildly enlarged LA and mild valvular issues with no other concerns -Continue above medications DM-2 hold home oral agents -SSI Diabetic neuropathy -Continue home gabapentin History of gout -Continue home allopurinol but with increased serum creatinine will decrease from 200-100 daily Vitamin D deficiency -Continue home cholecalciferol Hyperlipidemia -Continue home Colestid GERD -Continue home PPI Hypothyroidism -Continue home levothyroxine DVT prophylaxis -Continue Lovenox CODE STATUS -DNR CCA with no intubation as affirmed on admission Charges/Coding Visit Charges Inpatient E&M: 53113 Subs Hosp L2
[2023-02-13] MEDS: Arthritis Pain Compound 60 CLICK TUBE TOPICAL ×2 (10:14→20:59)
[2023-02-13] MEDS: amLODIPine 2.5 MG Tablet PO (10:16)
[2023-02-13] MEDS: Ceftriaxone 1 GM/50 ML BAG IV (10:16)
[2023-02-13] MEDS: 0.9% Normal Saline (1000mL) 1,000 ML 75 ML IV (10:16)
[2023-02-13] MEDS: Amiodarone 200 MG Tablet PO (10:17)
[2023-02-13] MEDS: Multivitamins,Ther W-Minerals Tablet 1 TABLET PO (10:17)
[2023-02-13] MEDS: Psyllium 1 PACKET PO (10:17)
[2023-02-13] MEDS: Folic Acid 1 MG Tablet PO (10:17)
[2023-02-13] MEDS: Enoxaparin 40 MG/0.4 ML Syringe SC (10:17)
[2023-02-13] MEDS: Pantoprazole Sodium 40 MG Tablet PO (10:18)
[2023-02-13] MEDS: Menthol/Lanolin/Calamine/Znox 113 GM Tube 1 APPLIC TOPICAL ×3 (10:18→21:01)
[2023-02-13] MEDS: Carvedilol 25 MG Tablet PO ×2 (10:18→21:05)
[2023-02-13] MEDS: Senna/Docusate Sodium 1 Tablet 2 TABLET PO (11:49)
[2023-02-13 12:10] LABS: Bedside Glucose 271 mg/dL (74-106)
--- NOTE | 2023-02-13 12:34 | CASEMGMT ---
Social Work Precert has been obtained for admission to TCU. Physician updated and pt is not medically ready today. SW met with pt and updated on acceptance when medically ready. Precert is good through Monday. Annalisa in TCU updated. Plan: TCU, when medically ready AM[facility]O [place]
--- NOTE | 2023-02-13 16:21 | CON.PCM.OR_ITS ---
HPI Consult Data Date of Consult: 02/13/23 HPI Narrative HPI Narrative: YENNIFER JARAMILLO, is a 82 F who presents after falling while at home. She states she fell on early morning. She was admitted to the hospital on February 10, 2023. She was having knee and leg pain. She states that she falls quite often. She states she loses her balance. She denies syncope. Denies head injury or loss of consciousness. She normally uses a walker. She was using her walker when she fell. She was not able to walk after this. She has had previous right knee replacement by Dr. Lord in 2007. Patient states at the time of her fall her pain was 8 out of 10. Currently pain is 1 out of 10. She feels is getting better every day. She does not feel sick. She has not felt febrile. She is diabetic. She states her blood sugars normally are between 90 and 100 fasting in the morning. She states her most recent hemoglobin A1c was 6.4. She lives alone. [facility]LY [facility] Medical History Anemia Arthritis Cardiomyopathy in disease classified elsewhere Choledocholithiasis with acute cholecystitis Chronic kidney disease CPAP (continuous positive airway pressure) dependence Generalized anxiety disorder Generalized osteoarthritis History of hiatal hernia Hyperlipidemia Non-smoker Paroxysmal atrial fibrillation Paroxysmal atrial flutter Post-menopausal Sleep apnea Thyroid disease Type 2 diabetes mellitus Walker as ambulation aid Wears glasses Wears hearing aid Home Medications allopurinol 100 mg tablet 200 mg PO DAILYCM gout 07/04/13 [History Last Taken 08/18/20] lansoprazole 30 mg capsule,delayed release 30 mg PO DAILY GERD 07/04/13 [History Last Taken 08/18/20] pioglitazone 15 mg tablet 30 mg PO QHS diabetes 03/29/19 [History Last Taken 08/18/20] cholecalciferol (vitamin D3) 1,250 mcg (50,000 unit) capsule 50,000 unit PO TU bones 05/07/19 [History Last Taken 08/18/20] dulaglutide 1.5 mg/0.5 mL subcutaneous pen injector 1.5 mg SQ PONCE diabetes 07/24/20 [History Last Taken 08/16/20] amiodarone 200 mg tablet 200 mg PO DAILY heart 08/21/20 [History Last Taken Unknown] acetaminophen 500 mg tablet 1,000 mg (2 x 500 mg) PO Q6H PRN Pain Score 1-10 08/26/20 [Rx Last Taken Unknown] levothyroxine 137 mcg tablet 137 mcg PO DAILY 10/22/20 [History Last Taken Unknown] carvedilol 25 mg tablet 25 mg PO BID blood pressure 12/11/20 [History Last Taken Unknown] cyanocobalamin (vitamin B-12) 1,000 mcg/mL injection solution 1,000 mcg IM QMONTH 12/11/20 [History Last Taken Unknown] psyllium husk 0.52 gram capsule (Fiber (psyllium husk)) 1.04 g PO DAILY 12/11/20 [History Last Taken Unknown] gabapentin 300 mg capsule 300 mg PO TID neuropathy 03/02/22 [History Last Taken Unknown] Colestid 1 gm PO/SL BID 03/09/22 [History Last Taken Unknown] amiodarone 200 mg PO/SL DAILY 03/09/22 [History Last Taken Unknown] folic acid 1 mg PO/SL DAILY 03/09/22 [History Last Taken Unknown] glimepiride 2 mg PO/SL DAILY 03/09/22 [History Last Taken Unknown] multivitamin with iron 1 tablet PO/SL DAILY 03/09/22 [History Last Taken Unknown] amlodipine 2.5 mg tablet 2.5 mg PO DAILY 08/22/22 [History Last Taken Unknown] tramadol 50 mg tablet 25 mg PO BID PRN PRN pain 02/10/23 [History Last Taken Unknown] Allergy/AdvReac Type Severity Reaction Status Date / Time iodine Allergy Hives Verified 02/10/23 03:34 simvastatin Allergy Other Verified 02/10/23 03:34 [id number] Reductase AdvReac Severe mylagias Verified 02/10/23 03:34 Inhibitor [[id number] Reductase Inhibitor] Family History Brother Heart disease Mother Heart disease Father Heart disease Surgical History History of carpal tunnel surgery History of cataract surgery History of cholecystectomy History of knee replacement History of tonsillectomy Social History household members: none Smoking Status: Never smoker alcohol intake: never substance use type: does not use ROS ROS Narrative Patient denies any changes with eyes ears nose or throat heart or lungs bowel or bladder. She does have new right leg pain mostly at the posterior medial knee. Vital Signs Vital Signs Vital Signs: 02/12/23 20:25 02/12/23 20:28 02/13/23 02:26 Temperature 98.0 F 101.6 F H Temperature Source Temporal Temporal Pulse Rate 87 85 Respiratory Rate 18 16 Respiratory Effort Normal Non-Labored Respiratory Depth Normal Respiratory Pattern Normal Blood Pressure 154/58 H 134/51 H Blood Pressure Mean 90 78 Blood Pressure Source Monitor Monitor Blood Pressure Position Semi-Fowlers Supine Blood Pressure Location Left Arm Left Arm Pulse Ox 95 95 92 Oxygen Delivery Method Room Air Room Air Room Air 02/13/23 03:19 02/13/23 03:20 02/13/23 08:48 Temperature 101.6 F H Temperature Source Temporal Pulse Rate 85 85 Respiratory Rate 16 16 Respiratory Effort Normal Non-Labored Respiratory Depth Normal Respiratory Pattern Normal Blood Pressure 134/51 H Blood Pressure Mean 78 Blood Pressure Source Blood Pressure Position Blood Pressure Location Pulse Ox 92 92 92 Oxygen Delivery Method Room Air Room Air Room Air 02/13/23 10:00 02/13/23 15:19 Temperature 99.2 F H 98.3 F Temperature Source Oral Oral Pulse Rate 86 80 Respiratory Rate 18 18 Respiratory Effort Respiratory Depth Respiratory Pattern Blood Pressure 143/51 H 121/41 H Blood Pressure Mean 81 67 Blood Pressure Source Blood Pressure Position Blood Pressure Location Pulse Ox 95 95 Oxygen Delivery Method Room Air Room Air Weight Weight: 94.256 kg Body Mass Index (BMI) 32.5 Physical Exam Narrative Right knee immobilizer was removed. Right knee has some swelling. There does seem to be an effusion. She has no warmth or redness. She has no calf pain or swelling. Negative Homans' sign. She is able to plantarflex and dorsiflex both toes and ankles bilaterally. He does not have the strength to do a straight leg raise on the right or left leg. Right knee was not overly stressed due to known fracture. Right knee motion was noted to be 0-30 degrees without significant pain. Knee was not overly stressed beyond that. No severe hip pain with gentle motion. Negative straight leg raise. Right knee incision is well-healed. X-rays have been reviewed showing no obvious fracture. Total knee replacement in good position. CT scan of the knee had been reviewed showing a not significantly displaced fracture at the posterior medial upper tibia. No signs of loosening of the hardware. Ultrasound negative for DVT Reportedly COVID test negative Patient currently afebrile Lab / Micro Data 02/13/23 06:22 02/13/23 06:22 Labs: Laboratory Results - last 24 hr 02/12/23 16:38: POC Glucose 232 H 02/12/23 21:22: POC Glucose 246 H 02/13/23 06:13: POC Glucose 190 H 02/13/23 06:22: WBC 10.2, RBC 2.67 L, Hgb 7.8 L, Hct 24.6 L, MCV 92.1, MCH 29.2, MCHC 31.7 L, RDW Std Deviation 49.0 H, RDW Coeff of Melanie 14.6, Plt Count 174, MPV 10.0, Sodium 131 L, Potassium 4.8, Chloride 100, Carbon Dioxide 25.0, Anion Gap 6, BUN 66 H, Creatinine 1.77 H, Estim Creat Clear Calc 23.83, Est GFR (MDRD) Af Amer 35 L, Est GFR (MDRD) Non-Af 29 L, BUN/Creatinine Ratio 37.3 H, Glucose 198 H, Calcium 8.6 02/13/23 11:44: POC Glucose 271 H Micro: Microbiology 02/13/23 04:30 Mucosa - Nasopharyngeal Coronavirus COVID-19 PCR - Final 02/11/23 22:40 Urine, Clean Catch Urine Culture - Final Escherichia coli Radiology Impression Chest X-Ray 02/13/23 05:20 IMPRESSION: Small left-sided pleural effusion. No dense consolidation. Electronically Signed: Donovan Jimenez MD at 6:05 EDT , Lower Extremity CT 02/13/23 08:09 IMPRESSION: Nondisplaced fracture through the posterior aspect of the medial tibial plateau. Joint effusion. Soft tissue swelling. Status post total knee replacement. Electronically Signed: Jacob Brown MD at 9:09 EDT , Venous Doppler Study 02/13/23 08:11 Interpretation Summary Deep veins of the bilateral lower extremities are patent and compressible segmentally. There is no evidence of bilateral lower extremity deep vein thrombosis. The bilateral great saphenous veins appear patent and compressible segmentally. Ordering Physician: Sheela Caruso Referring Physician: Stefan Gordon Performed By: Kalyn Rodriguez, ERNESTINA, RVT Assessment & Plan Assessment/Plan (1) Right tibial fracture: QUALIFIERS: Encounter type: initial encounter Tibia location: pr oximal Fracture type: closed PLAN: Her diagnosis and treatment plan regarding her right proximal tibial fracture from recent fall, total knee replacement, knee effusion discussed with her at length. I explained I do not think she has an infected knee at this po int. I think her pain and swelling are related to her injury, hemarthrosis. We discussed aspirating the knee and she declined. I think that is reasonable. She can do ice. Knee immobilizer. Pain medication as needed. Recommended nonweightbearing. If patient has recurrent fevers of unknown etiology, could consider CRP, ESR testing for further evaluation. Could consider knee aspiration. Recommend following up with Dr. Lord in the office next week. He is aware of the patient. He has reviewed some of her imaging studies. Patient is aware. Multiple medical comorbidities including diabetes, continue evaluation and treatment per hospitalist service Orthopedic service signing off. Can be renotified if further concerns
[2023-02-13 17:11] LABS: Bedside Glucose 263 mg/dL (74-106)
[2023-02-13 18:35] LABS: Procalcitonin 0.97 ng/mL (0.00-0.09)
[2023-02-13] MEDS: Iron Polysaccharide Complex 150 MG CAPSULE 300 MG PO (21:05)
[2023-02-13 21:28] LABS: Bedside Glucose 262 mg/dL (74-106)
--- NOTE | 2023-02-13 22:34 | CPS ---
Patient refused PAP therapy for the night.
[2023-02-13] MEDS: Colestipol 1 GM TABLET PO (22:56)
[2023-02-14 04:00] VITALS: BP 132/55; PULSE 83; RESP 16; TEMP 37.3; O2SAT 96
[2023-02-14 06:00] VITALS: BMI 32.5
[2023-02-14] MEDS: Insulin Lispro 100 UNIT/ML INSULN.PEN SC ×4 (06:25→22:52)
[2023-02-14] MEDS: Gabapentin 300 MG Capsule PO ×3 (06:25→22:41)
[2023-02-14] MEDS: Levothyroxine 137 MCG Tablet PO (06:25)
[2023-02-14] MEDS: traMADol 50 MG Tablet PO ×2 (06:25→18:45)
[2023-02-14 06:48] LABS: Hematocrit 24.4 % (37-47); Hemoglobin 7.8 g/dL (12.0-15.0); Mean Corpuscular Hgb 29.2 pg (27.0-32.0); Mean Corpuscular Volume 91.4 fL (81-99); Mean Platelet Vol. 10.1 fl (6.2-12.0); Platelet Count 228 K/mm3 (150-450); RBC Distribution Width CV 14.3 % (11.6-14.6); RBC Distribution Width SD 47.6 fl (35.1-43.9); Red Blood Count 2.67 M/mm3 (4.2-5.4)
[2023-02-14 07:16] LABS: Anion Gap 7 (5-15); BUN 85 mg/dL (7-18); BUN/Creat Ratio 39.4 RATIO (10-20); Calcium,Total 8.5 mg/dL (8.5-10.1); Chloride 99 mmol/L (98-107); Creatinine, Serum 2.16 mg/dL (0.55-1.02); EST Glomerular Filtration Rate 23 mL/min (>60); Est Glom Filt Rate - Afr Amer 28 mL/min (>60); Estimated Creatinine Clearance 19.53 ml/min; Glucose 234 mg/dL (74-106); Potassium 5.4 mmol/L (3.5-5.1); Sodium Level 129 mmol/L (136-145)
[2023-02-14 08:07] VITALS: O2SAT 96
[2023-02-14] MEDS: 0.9% Normal Saline (1000mL) 1,000 ML 999 ML IV (09:07)
[2023-02-14] MEDS: Ceftriaxone 1 GM/50 ML BAG IV (09:57)
[2023-02-14] MEDS: Arthritis Pain Compound 60 CLICK TUBE TOPICAL ×2 (09:58→22:40)
[2023-02-14] MEDS: Multivitamins,Ther W-Minerals Tablet 1 TABLET PO (09:58)
[2023-02-14] MEDS: Carvedilol 25 MG Tablet PO (09:59)
[2023-02-14] MEDS: Psyllium 1 PACKET PO (09:59)
[2023-02-14] MEDS: Folic Acid 1 MG Tablet PO (09:59)
[2023-02-14] MEDS: Pantoprazole Sodium 40 MG Tablet PO (09:59)
[2023-02-14] MEDS: Enoxaparin 40 MG/0.4 ML Syringe SC (09:59)
[2023-02-14 10:00] VITALS: BP 112/45; PULSE 80; RESP 18; TEMP 37.6; O2SAT 95
[2023-02-14] MEDS: Amiodarone 200 MG Tablet PO (10:00)
[2023-02-14] MEDS: Allopurinol 100 MG Tablet PO (10:00)
[2023-02-14] MEDS: Polyethylene Glycol 3350 17 GM PACKET PO (11:27)
[2023-02-14 12:01] LABS: Bedside Glucose 286 mg/dL (74-106)
[2023-02-14 13:02] LABS: Anion Gap 8 (5-15); BUN 86 mg/dL (7-18); BUN/Creat Ratio 38.4 RATIO (10-20); Calcium,Total 8.1 mg/dL (8.5-10.1); Chloride 99 mmol/L (98-107); Creatinine, Serum 2.24 mg/dL (0.55-1.02); EST Glomerular Filtration Rate 22 mL/min (>60); Est Glom Filt Rate - Afr Amer 27 mL/min (>60); Estimated Creatinine Clearance 18.83 ml/min; Glucose 300 mg/dL (74-106); Potassium 5.1 mmol/L (3.5-5.1); Sodium Level 128 mmol/L (136-145)
--- NOTE | 2023-02-14 13:19 | PN.HOSP_ITS ---
Reason for Visit Reason for Visit: Mechanical fall/right lower leg pain Subjective Subjective No significant issues overnight however patient states she feels poorly but unable to describe how. She has no cough. Dysuria seems to be improving. The pain in her leg seems to be improving. Her Tmax has improved in the last 24 hours. No identifiable source of infection is yet been found. She has been on adequate treatment for UTI however colony count is noted previously of low. She was seen by orthopedic surgery and they deferred tapping her right knee joint for now however fight and unable to find a source we may need to proceed with this. Objective Data Objective Data Vital Signs: Vital Signs Temp Pulse Resp BP Pulse Ox O2 Del Method 99.6 F H 80 18 112/45 L 95 Room Air 02/14/23 10:00 02/14/23 10:00 02/14/23 10:00 02/14/23 10:00 02/14/23 10:00 02/14/23 10:00 Oxygen Delivery Method Room Air Weight: 94.26 kg Body Mass Index (BMI) 32.5 Intake & Output: Intake and Output for Last 24 Hours 02/12/23 02/13/23 02/14/23 23:59 23:59 23:59 Intake Total 1258 / 1258 746.25 / 946.25 2843.75 / 2843.75 Output Total 900 / 900 400 / 400 500 / 500 Balance 358 / 358 346.25 / 546.25 2343.75 / 2343.75 Lab / Micro Data 02/14/23 06:25 02/14/23 12:05 Labs: Laboratory Results - last 24 hr 02/13/23 06:22: Procalcitonin 0.97 H 02/13/23 16:37: POC Glucose 263 H 02/13/23 20:57: POC Glucose 262 H 02/14/23 06:25: WBC 10.0, RBC 2.67 L, Hgb 7.8 L, Hct 24.4 L, MCV 91.4, MCH 29.2, MCHC 32.0, RDW Std Deviation 47.6 H, RDW Coeff of Melanie 14.3, Plt Count 228, MPV 10.1, Sodium 129 L, Potassium 5.4 H, Chloride 99, Carbon Dioxide 23.0, Anion Gap 7, BUN 85 H, Creatinine 2.16 H, Estim Creat Clear Calc 19.53, Est GFR (MDRD) Af Amer 28 L, Est GFR (MDRD) Non-Af 23 L, BUN/Creatinine Ratio 39.4 H, Glucose 234 H, Calcium 8.5 02/14/23 11:39: POC Glucose 286 H 02/14/23 12:05: Sodium 128 L, Potassium 5.1, Chloride 99, Carbon Dioxide 21.0, Anion Gap 8, BUN 86 H, Creatinine 2.24 H, Estim Creat Clear Calc 18.83, Est GFR (MDRD) Af Amer 27 L, Est GFR (MDRD) Non-Af 22 L, BUN/Creatinine Ratio 38.4 H, Glucose 300 H, Calcium 8.1 L Micro: Microbiology 02/13/23 04:30 Mucosa - Nasopharyngeal Coronavirus COVID-19 PCR - Final 02/11/23 22:40 Urine, Clean Catch Urine Culture - Final Escherichia coli Physical Exam Const alert, oriented x3, no apparent distress and well nourished Constitutional Narrative: Obese, elderly, white female, sitting up in bed, extremely pleasant, family at bedside, nursing at bedside, patient appears a bit more fatigued today and less perky General Appearance: cooperative, comfortable, well kempt and well developed HEENT normocephalic, head/scalp atraumatic, hearing grossly normal bilaterally, nasal mucous membranes and turbinates normal, moist oral mucous membranes and oropharynx normal Eyes PERRL, EOMs intact bilaterally and conjunctivae normal Eyes Narrative: No scleral icterus Neck no lymphadenopathy and supple Neck Narrative: Trachea midline, Resp normal respiratory effort, normal air movement, no retractions, no use of accessory muscles and clear to auscultation bilaterally Auscultation: Negative for rales, rhonchi or wheezes Cardio regular rate, regular rhythm, S1 normal heart sound, S2 normal heart sound, no murmurs, no rub, no gallops, no clicks and peripheral pulses 2+ throughout GI normal to inspection, nondistended, normoactive bowel sounds, soft to palpation and non-tender Extremity normal to inspection, no clubbing, cyanosis or edema and no pedal edema Extremity Narrative: 2+ pedal pulses, mild tenderness at right tibial plateau region movement at right knee joint is limited due to pain Skin no rashes or lesions noted, no wounds, skin turgor normal, no jaundice, no p etechiae and no mottling Neuro oriented x3, CN's II-XII intact bilaterally and no focal motor deficits Neuro Narrative: Able to move all extremities but deep creased right lower extremity movement due to pain Speech: speech normal Psych mental status grossly normal and affect normal Psych Narrative: Very pleasant, interacts appropriately Assessment & Plan Assessment/Plan (1) Injury of right lower extremity: (2) Inability to ambulate due to right knee: (3) Fever, unknown origin: (4) Weakness: (5) Elevated serum creatinine: PLAN: Plan Fever -Origin is still unclear -UA was unremarkable and culture is showing gram-negative aris lactose media planner / buyer but colony counts are 11,000-25,000 -Chest x-ray is unremarkable for infiltrate -COVID PCR was negative -Extremity Dopplers were negative -Incentive spirometer -We will discontinue ceftriaxone and broaden to Zosyn and vancomycin -Blood cultures are pending -Total white count is still low -Procalcitonin is elevated at 0.97--> will repeat today since patient has been on ceftriaxone if it decreases this is a good sign if it trends up or stays the same I suspect that antibiotic coverage is not adequate -Check sed rate CRP -We will consider aspiration of right knee joint if we cannot find an identifiable source -Check a.m. CBC with differential Moderate right knee effusion -Patient status post total knee arthroplasty -If unable to find a source for her suspected infection will have arthrocentesis performed and reconsult orthopedic surgery as they have signed off TAWANDA on CKD stage IIIb -Baseline serum creatinine seems to fluctuate but is anywhere from 1.3-1.65 -Serum creatinine has trended up overnight -Blood pressure has been on the lower side -We will hold antihypertensives -I suspect there is some infection that we have not found yet and I have broadened antibiotics -Avoid nephrotoxins -Continue IV fluids at 75 cc/h--> she did receive a bolus of IV fluids today with 1 L normal saline and no significant difference in her renal function -Check renal ultrasound -BMP in a.m. -Check urine lites -Serum bicarb is trending down and I suspect this is related to worsening renal function will check ABG -May need to consider nephrology consultation if renal function does not improve in the next 24 hours Right tibial plateau fracture -Plain film was unremarkable however CT of the lower leg was done on 02/13/2023 and shows tibial plateau fracture -Nonweightbearing -Straight leg brace -Orthopedic surgery follow-up after discharge -Continue PT/OT -We will likely need placement at discharge-Case management/social work consulted -Appreciate orthopedic surgery input Hyperkalemia -This was mild and responded to IV fluids down from 5.4-5.1 -Nephrotoxins Generalized weakness -Continue therapy services PAF/paroxysmal flutter -Continue home amiodarone -Not on any chronic anticoagulation due to fall risk and anemia Hypertension -Hold Coreg and amlodipine -Monitor blood pressures especially with fever Chronic normocytic anemia -Hemoglobin is stable -Patient follows with Dr. Villa as an outpatient and work-up is pending for this Nonischemic cardiomyopathy -Last echocardiogram done in 2017 showed EF of 65% with mildly enlarged LA and mild valvular issues with no other concerns -Continue above medications DM-2 hold home oral agents -SSI -Add Lantus as blood sugars are trending up in the suspect this is related to unidentified infection Diabetic neuropathy -Continue home gabapentin History of gout -Continue home allopurinol and decrease dose to 100 mg daily with worsening renal function Vitamin D deficiency -Continue home cholecalciferol Hyperlipidemia -Continue home Colestid GERD -Continue home PPI Hypothyroidism -Continue home levothyroxine DVT prophylaxis -Continue Lovenox CODE STATUS -DNR CCA with no intubation as affirmed on admission Charges/Coding Visit Charges Inpatient E&M: 74341 [facility] Hosp L3
--- NOTE | 2023-02-14 13:32 | US_ITS ---
STUDY: RENAL ULTRASOUND - COMPLETE REASON FOR EXAM: Female, 82 years old. sandrine TECHNIQUE: Ultrasound evaluation of the kidneys was performed with real-time and static dang-scale imaging. COMPARISON: None. FINDINGS: RIGHT KIDNEY: Normal location of the right kidney, which is normal in size. The right kidney measures 10.5 x 4.8 x 6.2 cm. Diffusely increased cortical echoes and prominence of the renal pyramids.. The renal cortex measures 1 cm. There is no right renal mass or cyst. There are no right renal calculi. There is mild to moderate renal pelvocaliectasis. DISTAL RIGHT URETER: There is non-visualization of the distal right ureter. There is no demonstrated right ureterovesical junction calculus. There is a visualized right ureteral jet. LEFT KIDNEY: Normal location of the left kidney, which is normal in size. The left kidney measures 10 x 3.9 x 5.1 cm. Diffusely increased cortical echoes with prominence of the renal pyramids The renal cortex measures 1.3 cm. There is no left renal mass or cyst. There are no left renal calculi. There is mild renal pelvocaliectasis.. DISTAL LEFT URETER: There is non-visualization of the distal left ureter. There is no demonstrated left ureterovesical junction calculus. There is a visualized left ureteral jet. BLADDER: The distended urinary bladder has a volume of 1367.9 ml. There is a normal wall thickness of the distended urinary bladder. There is no demonstrated mass within the urinary bladder. There are no demonstrated bladder calculi. US/Kidney and Bladder IMPRESSION: Findings consistent with nonspecific renal parenchymal disease. Mild bilateral renal pelvocaliectasis possibly due to reflux in association with diffusely distended bladder although cannot definitively exclude mild bilateral renal obstruction. CT would be useful for further evaluation if clinically warranted Electronically Signed: Dao Hudson MD at 16:40 EDT ,
[2023-02-14 13:42] LABS: Erythrocyte Sedimentation Rate 71 mm/hr (0-30)
[2023-02-14 13:54] LABS: Procalcitonin 1.02 ng/mL (0.00-0.09)
[2023-02-14] MEDS: 0.9% Saline Lock 10 ML Syringe IV (14:08)
[2023-02-14] MEDS: Menthol/Lanolin/Calamine/Znox 113 GM Tube 1 APPLIC TOPICAL ×3 (14:08→22:42)
[2023-02-14] MEDS: 0.9% Normal Saline (1000mL) 1,000 ML 75 ML IV (14:10)
[2023-02-14] MEDS: Vancomycin HCl 1,250 MG in 0.9% Normal Saline (250mL Bag) 250 ML 167 MG IV (14:15)
[2023-02-14 15:03] LABS: Base Excess -5 mmol/L (-2 to +2); Bicarbonate 20.5 mmol/L (22-26); Blood Gas Specimen Type ART; Mode Not entered; O2 Delivery Device Not entered; PO2 69 mmHG (75-100); SITE L Radial; SO2 93 % (95-99); Total Carbon Dioxide 22 mmol/L; pCO2 34.1 mmHg (35-45); pH 7.39 (7.35-7.45)
[2023-02-14 15:17] LABS: Urine Sodium < 5 mmol/L (Not Establ.)
[2023-02-14 15:55] VITALS: BP 108/47; PULSE 81; RESP 18; TEMP 37.3; O2SAT 94
--- NOTE | 2023-02-14 16:01 | CASEMGMT ---
Social Work Updated Dr. Caruso patient does have precert back for TCU, good through Monday. Received update from Dr. Caruso, mary kate is not yet ready for discharge. Updated Annalisa in TCU. -JOYA Sheppard
[2023-02-14] MEDS: Piperacil/Tazobactam 3.375 GM in 0.9% Normal Saline (50mL MB+) 50 ML IV ×2 (16:18→22:41)
--- NOTE | 2023-02-14 16:30 | PCM.RX.CS ---
Consult Antibiotic Management Pharmacy has been consulted to manage selected antiobiotic: Vancomycin Type of Intervention Type of Consult: New start Suspected Infection Suspected Infection: Other (UNKNOWN/POSSIBLE SEPTIC ARTHRITIS) Prior Doses of Antibiotics Prior Doses of Antibiotics Received/Current Regimen: Patient was previously on ceftriaxone, now on zosyn 3.375g Q12H, received initial vancomycin dose of 1250 mg IV x 1 on 02/14/23 @ 1415. Labs Labs: Sodium 128 mmol/L (136-145) L 02/14/23 12:05 Potassium 5.1 mmol/L (3.5-5.1) 02/14/23 12:05 Chloride 99 mmol/L (98-107) 02/14/23 12:05 Carbon Dioxide 21.0 mmol/L (21.0-32.0) 02/14/23 12:05 Anion Gap 8 (5-15) 02/14/23 12:05 BUN 86 mg/dL (7-18) H 02/14/23 12:05 Creatinine 2.24 mg/dL (0.55-1.02) H 02/14/23 12:05 Est GFR (MDRD) Af Amer 27 mL/min (>60) L 02/14/23 12:05 Est GFR (MDRD) Non-Af 22 mL/min (>60) L 02/14/23 12:05 BUN/Creatinine Ratio 38.4 RATIO (10-20) H 02/14/23 12:05 Glucose 300 mg/dL (74-106) H 02/14/23 12:05 Microbiology Microbiology: Microbiology 02/13/23 04:30 Mucosa - Nasopharyngeal Coronavirus COVID-19 PCR - Final 02/11/23 22:40 Urine, Clean Catch Urine Culture - Final Escherichia coli Dosing Weight Weight used for dosin.6 kg Estimated Creatinine Clearance Estimated Creatinine Clearance: 22 (adjbw) Goal Trough Goal Trough: 15-20 mcg/mL Pharmacy Plan for Drug Dosing Pharmacy Plan for Drug Dosing: Vancomycin 1250 mg IV loading dose x 1 given 02/14 @ 1415, will initiate vancomycin 750 mg IV Q24h starting 02/15/23 @ 1500 with a trough prior to 3rd dose. Pharmacy Service will continue to monitor and adjust dosing as required. Follow-Up Labs Follow-Up Labs: Trough: Vancomycin Date/Time Labs Ordered Labs to be done on [date and time ordered]: 02/16/23 @ 1430
[2023-02-14 16:53] LABS: Bedside Glucose 221 mg/dL (74-106)
[2023-02-14 17:06] LABS: Bedside Glucose 231 mg/dL (74-106)
[2023-02-14] MEDS: Acetaminophen 325 MG Tablet 650 MG PO (20:29)
--- NOTE | 2023-02-14 21:53 | CPS ---
Pt refused PAP therapy.
[2023-02-14 22:38] VITALS: BP 114/47; PULSE 74; RESP 16; TEMP 36.3; O2SAT 96
[2023-02-14] MEDS: Iron Polysaccharide Complex 150 MG CAPSULE 300 MG PO (22:41)
[2023-02-14] MEDS: Insulin Glargine-YFGN 100 UNIT/ML Pen 15 UNIT SC (22:52)
[2023-02-14 23:37] LABS: Bedside Glucose 271 mg/dL (74-106)
[2023-02-14] MEDS: Colestipol 1 GM TABLET PO (23:45)
--- NOTE | 2023-02-15 | FLU_PTH ---
PATIENT: YENNIFER JARAMILLO LOC: MS3 U#:[id number] AGE/SX: 82/F ROOM: CA312 RE02/13/[address]: Dr. Sheela Caruso DO : 1940 BED: 1 DIS: 02/17/2023 SPEC #: [id number] RECD: 02/15/23 11:49 STATUS: LIV LOZA #: [id number] CHRISTI: 02/15/23 00:[address]: Sheela Caruso DEPT: CYTOLOGY RECD BY: Chandler Harris ENTERED: 02/15/23 11:49 SP TYPE: Fluid OTHR DR: DO Dr. Chrissy Green MD Dr. Rodney Miller, MD Dr. William Lago, MD Tissues: Synovial fluid Procedures: Special Stain Group II Surgery Specimen Level IV Cytospin Fluid HEADER OPERATION: Not noted PRE-OP DIAGNOSIS: Fall, right lower extremity pain TISSUE SUBMITTED: Synovial fluid for cytology DIAGNOSIS CYTOLOGY Synovial fluid, needle aspiration (cytospin and cell block): Negative for malignant cells. AM:gillian 02/16/2023 CYTOLOGY STUDY Slides are reviewed. CYTOLOGY GROSS Received is <1 ml of red cloudy fluid labeled with the patient's name and and designated per the requisition as synovial fluid. Submitted for cytology preparation including cell block. / gillian 02/15/2023 TC:5 CPT: 32451, 50315
[2023-02-15 04:17] VITALS: BP 125/53; PULSE 75; RESP 16; TEMP 36.6; O2SAT 96
[2023-02-15] MEDS: traMADol 50 MG Tablet PO ×2 (04:25→14:37)
[2023-02-15] MEDS: Levothyroxine 137 MCG Tablet PO (05:30)
[2023-02-15] MEDS: Gabapentin 300 MG Capsule PO ×3 (05:30→21:07)
[2023-02-15] MEDS: Insulin Lispro 100 UNIT/ML INSULN.PEN SC ×4 (06:46→21:13)
[2023-02-15 07:18] LABS: Bedside Glucose 211 mg/dL (74-106)
[2023-02-15 07:40] LABS: Absolute Lymphocyte Count 0.76 X10^3/uL (0.83-4.51); Absolute Neutrophil Count 5.2 X10^3/uL (2.0-7.7); Basophil# 0.03 X10^3/uL; Basophil% 0.4 % (0-1); Eosinophil# 0.35 X10^3/uL; Eosinophils% 4.9 % (0-5); Hematocrit 20.2 % (37-47); Hemoglobin 6.5 g/dL (12.0-15.0); Lymphocyte # 0.76 X10^3/ul (0.83-4.51); Lymphocyte % 10.6 % (19-41); Mean Corp Hgb Conc 32.2 g/dL (32-36); Mean Corpuscular Hgb 29.1 pg (27.0-32.0); Mean Corpuscular Volume 90.6 fL (81-99); Mean Platelet Vol. 9.9 fl (6.2-12.0); Monocyte# 0.78 X10^3/uL; Monocyte% 10.8 % (0-10); NRBC Flagged by Analyzer 0 % (0-5); Neutrophil # 5.22 X10^3/uL (2.7-7.7); Neutrophil % 72.6 % (47-70); Platelet Count 215 K/mm3 (150-450); RBC Distribution Width CV 14.6 % (11.6-14.6); RBC Distribution Width SD 48.1 fl (35.1-43.9); Red Blood Count 2.23 M/mm3 (4.2-5.4); White Blood Count 7.2 K/mm3 (4.4-11.0)
[2023-02-15 08:01] VITALS: BP 126/51; PULSE 78; RESP 18; TEMP 37.1; O2SAT 94
[2023-02-15 08:11] LABS: ALB/GLOB Ratio 0.5 RATIO (0.9-2.4); AST(SGOT) 35 U/L (15-37); Alanine Aminotransfer ALT/SGPT 24 U/L (13-56); Albumin, Serum 1.8 g/dL (3.2-5.0); Alkaline Phosphatase 83 U/L (45-117); Anion Gap 7 (5-15); BUN 83 mg/dL (7-18); BUN/Creat Ratio 42.8 RATIO (10-20); Calcium,Total 8.3 mg/dL (8.5-10.1); Chloride 99 mmol/L (98-107); Creatinine, Serum 1.94 mg/dL (0.55-1.02); EST Glomerular Filtration Rate 26 mL/min (>60); Est Glom Filt Rate - Afr Amer 32 mL/min (>60); Estimated Creatinine Clearance 21.74 ml/min; Globulin 3.7 g/dL (2.2-4.2); Glucose 211 mg/dL (74-106); Potassium 4.9 mmol/L (3.5-5.1); Protein, Total 5.5 g/dL (6.4-8.2); Sodium Level 129 mmol/L (136-145)
[2023-02-15 08:16] LABS: Phosphorus 3.6 mg/dL (2.5-4.9)
[2023-02-15] MEDS: Menthol/Lanolin/Calamine/Znox 113 GM Tube 1 APPLIC TOPICAL ×4 (08:21→21:08)
[2023-02-15] MEDS: Allopurinol 100 MG Tablet PO (08:21)
[2023-02-15] MEDS: Folic Acid 1 MG Tablet PO (08:22)
[2023-02-15] MEDS: Amiodarone 200 MG Tablet PO (08:22)
[2023-02-15] MEDS: Colestipol 1 GM TABLET PO ×2 (08:22→23:15)
[2023-02-15] MEDS: Pantoprazole Sodium 40 MG Tablet PO (08:22)
[2023-02-15] MEDS: Multivitamins,Ther W-Minerals Tablet 1 TABLET PO (08:22)
[2023-02-15] MEDS: Polyethylene Glycol 3350 17 GM PACKET PO (08:22)
[2023-02-15] MEDS: Psyllium 1 PACKET PO (08:22)
[2023-02-15] MEDS: Arthritis Pain Compound 60 CLICK TUBE TOPICAL ×2 (08:23→21:09)
--- NOTE | 2023-02-15 09:47 | CASEMGMT ---
Social Work SW spoke with Annalisa at TCU who states precert is good through 02/19. Physician updated and pt is not ready for discharge at this time. Plan: TCU, when medically ready AMADEO Appiah
[2023-02-15 10:12] LABS: Hemoglobin 7.2 g/dL (12.0-15.0)
--- NOTE | 2023-02-15 10:13 | RAD_ITS ---
PROCEDURE: Fluoroscopic guided right knee aspiration. DATE: February 15, 2023. INDICATION: Female, 82 years old. Proximal tibial fracture. Joint effusion. PHYSICIAN: Jacob Brown M.D. ACCESS SITE: Right knee. . NEEDLE: 22-gauge spinal needle. FLUOROSCOPY TIME (if supplied): (1:12) minutes/seconds. 28.23 mGy FINDINGS: The risks, benefits, and alternatives to the procedure were explained to the patient. The specific risks of bleeding, infection, and neurovascular injury were detailed and accepted. Witnessed informed consent was obtained. Attempted joint aspiration was performed. No aspirate was obtained. RAD/Inj/Asp Leroy Jt Should/Hip/Knee IMPRESSION: No aspirate was obtained. Electronically Signed: Jacob Brown MD at 13:29 EDT ,
[2023-02-15] MEDS: Enoxaparin 30 MG/0.3 ML Syringe SC (10:44)
[2023-02-15] MEDS: Piperacil/Tazobactam 3.375 GM in 0.9% Normal Saline (50mL MB+) 50 ML IV ×2 (10:44→21:07)
[2023-02-15 11:04] LABS: Cytology, Body Fluid / CSF SEE PATHOLOGY REPORT
[2023-02-15 11:58] LABS: Bedside Glucose 253 mg/dL (74-106)
[2023-02-15 14:39] VITALS: BP 131/55; PULSE 76; RESP 18; TEMP 36.7; O2SAT 95
[2023-02-15] MEDS: Vancomycin HCl 750 MG in 0.9% Normal Saline (250mL Bag) 250 ML 250 MG IV (15:40)
[2023-02-15] MEDS: 0.9% Normal Saline (1000mL) 1,000 ML 75 ML IV (16:25)
[2023-02-15 16:48] LABS: Bedside Glucose 301 mg/dL (74-106)
--- NOTE | 2023-02-15 17:07 | PN.HOSP_ITS ---
Reason for Visit Reason for Visit: Diagnoses Difficulty in walking, not elsewhere classified (02/13/23) Fever, unspecified (02/13/23) Weakness (02/13/23) Other specified abnormal findings of blood chemistry (02/13/23) Unspecified fracture of shaft of right tibia, initial encounter for closed fracture (02/13/23) Unspecified injury of right lower leg, initial encounter (02/13/23) Objective Data Objective Data Vital Signs: Vital Signs Temp Pulse Resp BP Pulse Ox O2 Del Method 98.1 F 76 18 131/55 H 95 Room Air 02/15/23 14:39 02/15/23 14:39 02/15/23 14:39 02/15/23 14:39 02/15/23 14:39 02/15/23 14:39 Oxygen Delivery Method Room Air Weight: 94.26 kg Body Mass Index (BMI) 32.5 Intake & Output: Intake and Output for Last 24 Hours 02/13/23 02/14/23 02/15/23 23:59 23:59 23:59 Intake Total 746.25 / 946.25 3976.25 / 4176.25 1492.5 / 1492.5 Output Total 400 / 400 2100 / 2100 2150 / 2150 Balance 346.25 / 546.25 1876.25 / 2076.25 -657.5 / -657.5 Lab / Micro Data 02/15/23 09:57 02/15/23 06:35 Labs: Laboratory Results - last 24 hr 02/14/23 22:51: POC Glucose 271 H 02/15/23 06:35: WBC 7.2, RBC 2.23 L, Hgb 6.5 L, Hct 20.2 L, MCV 90.6, MCH 29.1, MCHC 32.2, RDW Std Deviation 48.1 H, RDW Coeff of Melanie 14.6, Plt Count 215, MPV 9.9, Immature Gran % (Auto) 0.700, Neut % (Auto) 72.6 H, Lymph % (Auto) 10.6 L, [place] % (Auto) 10.8 H, Eos % (Auto) 4.9, Baso % (Auto) 0.4, Absolute Neuts (auto) 5.2, Absolute Lymphs (auto) 0.76 L, Nucleated RBC % 0, Sodium 129 L, Potassium 4.9, Chloride 99, Carbon Dioxide 23.0, Anion Gap 7, BUN 83 H, Creatinine 1.94 H, Estim Creat Clear Calc 21.74, Est GFR (MDRD) Af Amer 32 L, Est GFR (MDRD) Non-Af 26 L, BUN/Creatinine Ratio 42.8 H, Glucose 211 H, Calcium 8.3 L, Phosphorus 3.6, Magnesium 2.0, Total Bilirubin 0.40, AST 35, ALT 24, Alkaline Phosphatase 83, Total Protein 5.5 L, Albumin 1.8 L, Globulin 3.7, Albumin/Globulin Ratio 0.5 L, POC Glucose 211 H 02/15/23 09:57: Hgb 7.2 L 02/15/23 10:25: Fluid Source Cancelled, Fluid Color Cancelled, Fluid Appearance Cancelled, Fluid WBC Cancelled, Fluid RBC Cancelled, Fluid Tot Cell Count Cancelled, Fld Polynuclear WBCs # Cancelled, Fld Polynuclear WBCs % Cancelled, Fluid Mononuclear WBCs Cancelled, Fld Mononuclear WBCs % Cancelled, Fluid Neutrophils Cancelled, Fluid Lymphocytes Cancelled, Fluid Monocytes Cancelled, Fluid Plasma Cells Cancelled, Fluid Macrophages Cancelled, Fld Mesothelial Cells Cancelled, Fluid Other Cells Cancelled, Fl Pathologist Comment Cancelled, Fluid Comment 2 Cancelled 02/15/23 11:19: POC Glucose 253 H 02/15/23 16:23: POC Glucose 301 H Micro: Microbiology 02/13/23 09:58 Blood Culture (Wb) - Anticubital Right Blood Culture - Preliminary No growth in 48 hours. 02/13/23 09:58 Blood Culture (Wb) - Anticubital Left Blood Culture - Preliminary No growth in 48 hours. 02/13/23 04:30 Mucosa - Nasopharyngeal Coronavirus COVID-19 PCR - Final 02/11/23 22:40 Urine, Clean Catch Urine Culture - Final Escherichia coli Radiography Diagnostic Testing: Radiology Impression Joint Aspiration/Injection 02/15/23 10:13 IMPRESSION: No aspirate was obtained. Electronically Signed: Jacob Brown MD at 13:29 EDT , Physical Exam Narrative Physical Examination: General: Awake, alert, oriented x 3 and cooperative, seated upright in the ED bed in no apparent distress. Skin: Normal color, normal turgor, no icterus, no cyanosis. HEENT: AT/NC, EOMI, PERRLA, MMM, no carotid bruits or JVD noted; however thickened neck makes evaluation difficult. Lungs: Mildly diminished, greater bases, proper effort no rales, ronchi or wheezing. Heart: Regular rate and rhythm; no gallop, rub audible. Abdomen: Soft, obese, NTTP, ND, distant normal BS, no obvious evidence of HSM. Extremities: No cyanosis, no clubbing, mild pedal to mid huynh edema, full range of motion right lower extremity, some discomfort anteriorly along the shaft. Neurological: Patient awake, alert, oriented as noted, cognitive function intac t; pupils equally reactive to light and accommodation, cranial nerves II-XII grossly normal, moving all 4 extremities, no focal deficits, strength moderately global decreased. Psychiatric: Affect appears fatigued otherwise normal, no acute evidence of depressive or anxiety feelings. Const alert, oriented x3, no apparent distress and well nourished Constitutional Narrative: Obese, elderly, white female, sitting up in bed, extremely pleasant, family at bedside, nursing at bedside, patient appears a bit more fatigued today and less perky General Appearance: cooperative, comfortable, well kempt and well developed HEENT normocephalic, head/scalp atraumatic, hearing grossly normal bilaterally, nasal mucous membranes and turbinates normal, moist oral mucous membranes and oropharynx normal Eyes PERRL, EOMs intact bilaterally and conjunctivae normal Eyes Narrative: No scleral icterus Neck full ROM, no lymphadenopathy and supple Neck Narrative: Trachea midline, Lymph Lymphatic: no lymphadenopathy noted Chest inspection of chest normal Resp normal respiratory effort, normal air movement, no retractions, no use of accessory muscles and clear to auscultation bilaterally Auscultation: Negative for rales, rhonchi or wheezes Cardio regular rate, regular rhythm, S1 normal heart sound, S2 normal heart sound, no murmurs, no rub, no gallops, no clicks and peripheral pulses 2+ throughout GI normal to inspection, nondistended, normoactive bowel sounds, soft to palpation, non-tender and non-distended Back/Spine normal ROM Extremity normal to inspection, full ROM, no clubbing, cyanosis or edema and no pedal edema Extremity Narrative: 2+ pedal pulses, mild tenderness at right tibial plateau region movement at right knee joint is limited due to pain Skin no rashes or lesions noted, no wounds, skin turgor normal, no jaundice, no petechiae and no mottling Neuro oriented x3, CN's II-XII intact bilaterally and no focal motor deficits Neuro Narrative: Able to move all extremities but deep creased right lower extremity movement due to pain Speech: speech normal Psych mental status grossly normal and affect normal Psych Narrative: Very pleasant, interacts appropriately Assessment & Plan Assessment/Plan (1) Urinary retention: (2) Right tibial fracture: QUALIFIERS: Encounter type: initial encounter Tibia location: proximal Fracture type: closed (3) Elevated serum creatinine: (4) Inability to ambulate due to right knee: (5) Weakness: (6) Fever, unknown origin: (7) Injury of right lower extremity: PLAN: Plan Fever -Origin is still unclear -Sed rate and CRP are markedly elevated however I discussed the case with Dr. Rodriguez who also discussed the case with Dr. 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 CBC with differential Moderate right knee effusion -Moderate effusion not identified on ultrasound via arthrocentesis today -Minimal fluid obtained and currently we are awaiting Gram stain and culture -Continue antibiotics for now -Discussed case with orthopedic surgery and they are not suspicious that this is infected and felt that we would be able to discontinue antibiotics as long as a Gram stain is negative TAWANDA on CKD stage IIIb -Baseline serum creatinine seems to fluctuate but is anywhere from 1.3-1.65 -Serum creatinine did trend down overnight and is currently 1.94 from tube to 4 yesterday afternoon -We will continue to hold antihypertensives -Urine sodium was 5 and FeNa is consistent with prerenal azotemia -I suspect there is some infection that we have not found yet and I have bro adened antibiotics -Avoid nephrotoxins -Continue IV fluids at 75 cc/h -Renal ultrasound shows no acute findings other than bladder enlargement and bladder scan was performed showing 800 and her bladder -She had was required intermittent catheterization and having significant difficulty getting up to bedside commode so we will place Aguilar -Repeat BMP in a.m. Right tibial plateau fracture -Plain film was unremarkable however CT of the lower leg was done on 02/13/2023 and shows tibial plateau fracture -Nonweightbearing -Straight leg brace -Orthopedic surgery follow-up after discharge -Continue PT/OT -We will likely need placement at discharge-Case management/social work consulted -Appreciate orthopedic surgery input Urinary retention -Start Flomax -Aguilar -Patient may need discharged with Aguilar with trial out once mobility is improved -Patient on bowel regimen Hyperkalemia -Resolved Hyponatremia -Improving with IV hydration -Suspect hypovolemia hyponatremia -No further work-up required at this time Generalized weakness -Continue therapy services -Plan is for TCU at discharge -Patient having significant difficulty with any mobility PAF/paroxysmal flutter -Continue home amiodarone -Not on any chronic anticoagulation due to fall risk and anemia Hypertension -Hold Coreg and amlodipine for now and reinitiate when appropriate -Monitor blood pressures especially with fever Chronic normocytic anemia -Hemoglobin up this morning but stable on repeat at 7.2 -Patient follows with Dr. Villa as an outpatient and work-up is pending for this Nonischemic cardiomyopathy -Last echocardiogram done in 2018 showed EF of 65% with mildly enlarged LA and mild valvular issues with no other concerns -Continue above medications DM-2 hold home oral agents -SSI -Continue Lantus and increase to 20 units Diabetic neuropathy -Continue home gabapentin History of gout -Continue home allopurinol and decrease dose to 100 mg daily with worsening renal function Vitamin D deficiency -Continue home cholecalciferol Hyperlipidemia -Continue home Colestid GERD -Continue home PPI Hypothyroidism -Continue home levothyroxine DVT prophylaxis -Continue Lovenox CODE STATUS -DNR CCA with no intubation as affirmed on admission Disposition: Possible TCU in the next 24 to 48 hours depending on arthrocentesis Gram stain and culture results Charges/Coding Visit Charges Inpatient E&M: 04914 Subs Hosp L2
[2023-02-15] MEDS: Tamsulosin HCl 0.4 MG Capsule PO (18:54)
[2023-02-15 20:41] VITALS: BP 115/42; PULSE 84; RESP 16; TEMP 37.4; O2SAT 93
[2023-02-15] MEDS: Senna Tablet 1 TABLET PO (21:10)
[2023-02-15] MEDS: Iron Polysaccharide Complex 150 MG CAPSULE 300 MG PO (21:11)
[2023-02-15] MEDS: Insulin Glargine-YFGN 100 UNIT/ML Pen 20 UNIT SC (21:14)
[2023-02-15] MEDS: Acetaminophen 325 MG Tablet 650 MG PO (21:23)
[2023-02-15 21:44] LABS: Bedside Glucose 212 mg/dL (74-106)
[2023-02-16] VITALS (10 sets, daily range): BP systolic 113–146; BP diastolic 49–64; PULSE 70–94; RESP 16–18; TEMP 36.4–37.3; O2SAT 92–100; BMI 32.3
[2023-02-16] MEDS: traMADol 50 MG Tablet PO ×3 (00:41→21:15)
[2023-02-16] MEDS: Acetaminophen 325 MG Tablet 650 MG PO ×2 (03:06→19:46)
[2023-02-16] MEDS: 0.9% Normal Saline (1000mL) 1,000 ML 75 ML IV ×2 (05:15→18:28)
[2023-02-16] MEDS: Gabapentin 300 MG Capsule PO ×3 (05:21→21:15)
[2023-02-16] MEDS: Levothyroxine 137 MCG Tablet PO (05:21)
[2023-02-16 07:06] LABS: Absolute Lymphocyte Count 0.88 X10^3/uL (0.83-4.51); Basophil# 0.03 X10^3/uL; Basophil% 0.5 % (0-1); Eosinophils% 6.6 % (0-5); Hematocrit 20.4 % (37-47); Hemoglobin 6.5 g/dL (12.0-15.0); Lymphocyte # 0.88 X10^3/ul (0.83-4.51); Lymphocyte % 14.5 % (19-41); Mean Corp Hgb Conc 31.9 g/dL (32-36); Mean Corpuscular Hgb 28.8 pg (27.0-32.0); Mean Corpuscular Volume 90.3 fL (81-99); Mean Platelet Vol. 9.1 fl (6.2-12.0); Monocyte% 11.6 % (0-10); NRBC Flagged by Analyzer 0 % (0-5); Platelet Count 238 K/mm3 (150-450); RBC Distribution Width CV 14.6 % (11.6-14.6); RBC Distribution Width SD 47.9 fl (35.1-43.9); Red Blood Count 2.26 M/mm3 (4.2-5.4); White Blood Count 6.1 K/mm3 (4.4-11.0)
[2023-02-16] MEDS: Insulin Lispro 100 UNIT/ML INSULN.PEN SC ×4 (07:33→21:15)
[2023-02-16 07:34] LABS: Anion Gap 5 (5-15); BUN 69 mg/dL (7-18); BUN/Creat Ratio 42.3 RATIO (10-20); Calcium,Total 8.2 mg/dL (8.5-10.1); Chloride 106 mmol/L (98-107); Creatinine, Serum 1.63 mg/dL (0.55-1.02); EST Glomerular Filtration Rate 32 mL/min (>60); Est Glom Filt Rate - Afr Amer 39 mL/min (>60); Estimated Creatinine Clearance 25.88 ml/min; Glucose 175 mg/dL (74-106); Potassium 4.4 mmol/L (3.5-5.1); Sodium Level 134 mmol/L (136-145)
[2023-02-16 07:48] LABS: Bedside Glucose 174 mg/dL (74-106)
[2023-02-16] MEDS: Amiodarone 200 MG Tablet PO (08:00)
[2023-02-16] MEDS: Allopurinol 100 MG Tablet PO (08:01)
[2023-02-16] MEDS: Senna Tablet 1 TABLET PO ×2 (08:01→21:19)
[2023-02-16] MEDS: Menthol/Lanolin/Calamine/Znox 113 GM Tube 1 APPLIC TOPICAL ×4 (08:01→19:46)
[2023-02-16] MEDS: Multivitamins,Ther W-Minerals Tablet 1 TABLET PO (08:01)
[2023-02-16] MEDS: Arthritis Pain Compound 60 CLICK TUBE TOPICAL ×2 (08:01→21:15)
[2023-02-16] MEDS: Polyethylene Glycol 3350 17 GM PACKET PO (08:01)
[2023-02-16] MEDS: Enoxaparin 30 MG/0.3 ML Syringe SC (08:01)
[2023-02-16] MEDS: Psyllium 1 PACKET PO (08:01)
[2023-02-16] MEDS: Pantoprazole Sodium 40 MG Tablet PO (08:01)
[2023-02-16] MEDS: Folic Acid 1 MG Tablet PO (08:01)
--- NOTE | 2023-02-16 09:54 | CASEMGMT ---
Social Work Per physician, pt is not ready for d/c today. SW updated Annalisa in TCU. Pt can be accepted in TCU through 02/19. SW met with pt and informed that TCU continues to be able to accept pt when she is medically ready. Pt appreciative of the information. Pt states she has been in contact with her family and no need for SW to update. Plan: TCU, when medically ready AMADEO [place]
[2023-02-16] MEDS: Piperacil/Tazobactam 3.375 GM in 0.9% Normal Saline (50mL MB+) 50 ML IV (10:21)
[2023-02-16] MEDS: Colestipol 1 GM TABLET PO ×2 (10:24→19:46)
[2023-02-16] MEDS: 0.9% Saline Lock 10 ML Syringe IV (11:08)
[2023-02-16 11:34] LABS: Bedside Glucose 293 mg/dL (74-106)
--- NOTE | 2023-02-16 15:07 | PN.HOSP_ITS ---
Reason for Visit Reason for Visit: Mechanical fall/right lower extremity pain Subjective Subjective Patient states she is overall feeling better today. The pain seems to be improving in her leg and knee. Immobilizer has been in place. She has been afebrile for the last 48 hours. Cultures have been negative thus far but awaiting Gram stain and culture of the arthrocentesis done yesterday still. Hemoglobin is down. Patient is following with Dr. Villa and investigation as to the etiology has been ongoing. She does have an appointment with him next week. We will hold off on any further studies however she will be given 2 units packed red blood cells Objective Data Objective Data Vital Signs: Vital Signs Temp Pulse Resp BP Pulse Ox O2 Del Method 98.5 F 73 18 129/55 H 97 Room Air 02/16/23 14:23 02/16/23 14:23 02/16/23 14:23 02/16/23 14:23 02/16/23 14:23 02/16/23 14:23 Oxygen Delivery Method Room Air Weight: 93.5 kg Body Mass Index (BMI) 32.3 Intake & Output: Intake and Output for Last 24 Hours 02/14/23 02/15/23 02/16/23 23:59 23:59 23:59 Intake Total 3976.25 / 4176.25 1997.5 / 2597.5 2562.5 / 2562.5 Output Total 2100 / 2100 2150 / 3000 2950 / 2950 Balance 1876.25 / 2076.25 -152.5 / -402.5 -387.5 / -387.5 Lab / Micro Data 02/16/23 06:45 02/16/23 06:45 Labs: Laboratory Results - last 24 hr 02/15/23 09:57: Blood Type O NEGATIVE, Antibody Screen NEGATIVE, Crossmatch See Detail 02/15/23 16:23: POC Glucose 301 H 02/15/23 21:12: POC Glucose 212 H 02/16/23 06:45: WBC 6.1, RBC 2.26 L, Hgb 6.5 L, Hct 20.4 L, MCV 90.3, MCH 28.8, MCHC 31.9 L, RDW Std Deviation 47.9 H, RDW Coeff of Melanie 14.6, Plt Count 238, MPV 9.1, Immature Gran % (Auto) 0.800, Neut % (Auto) 66.0, Lymph % (Auto) 14.5 L, [place] % (Auto) 11.6 H, Eos % (Auto) 6.6 H, Baso % (Auto) 0.5, Absolute Neuts (auto) 4.0, Absolute Lymphs (auto) 0.88, Nucleated RBC % 0, Sodium 134 L, Potassium 4.4, Chloride 106, Carbon Dioxide 23.0, Anion Gap 5, BUN 69 H, Creatinine 1.63 H, Estim Creat Clear Calc 25.88, Est GFR (MDRD) Af Amer 39 L, Est GFR (MDRD) Non-Af 32 L, BUN/Creatinine Ratio 42.3 H, Glucose 175 H, Calcium 8.2 L 02/16/23 07:30: POC Glucose 174 H 02/16/23 11:07: POC Glucose 293 H Micro: Microbiology 02/15/23 10:25 Fluid - Synovial (joint) Gram Stain - Final 02/13/23 09:58 Blood Culture (Wb) - Anticubital Right Blood Culture - Preliminary No growth in 48 hours. 02/13/23 09:58 Blood Culture (Wb) - Anticubital Left Blood Culture - Preliminary No growth in 48 hours. 02/13/23 04:30 Mucosa - Nasopharyngeal Coronavirus COVID-19 PCR - Final 02/11/23 22:40 Urine, Clean Catch Urine Culture - Final Escherichia coli Physical Exam Const alert, oriented x3, no apparent distress and well nourished Constitutional Narrative: Obese, elderly, white female, sitting up in bed, extremely pleasant, patient seems back to her normal self and interacts normally with much more pep HEENT normocephalic, head/scalp atraumatic, hearing grossly normal bilaterally and moist oral mucous membranes HEENT Narrative: Mallampati 2, no thrush Resp normal respiratory effort, normal air movement, no retractions, no use of accessory muscles and clear to auscultation bilaterally Auscultation: Negative for rales, rhonchi or wheezes Cardio regular rate, regular rhythm, S1 normal heart sound, S2 normal heart sound, no murmurs, no rub, no gallops and no clicks GI normal to inspection, nondistended, normoactive bowel sounds, soft to palpation, non-tender and non-distended Extremity no clubbing, cyanosis or edema and no pedal edema Extremity Narrative: 2+ pedal pulses, mild tenderness at right tibial plateau region movement at right knee joint is limited due to pain Neuro oriented x3, CN's II-XII intact bilaterally and no focal motor deficits Neuro Narrative: Able to move all extremities but decreased right lower extremity movement due to pain with immobilizer currently in place Speech: speech normal Psych affect normal Psych Narrative: Very pleasant, interacts appropriately Assessment & Plan Assessment/Plan (1) Urinary retention: (2) Right tibial fracture: QUALIFIERS: Encounter type: initial encounter Tibia location: proximal Fracture type: closed (3) Elevated serum creatinine: (4) Inability to ambulate due to right knee: (5) Weakness: (6) Fever, unknown origin: (7) Injury of right lower extremity: PLAN: Plan Fever -Origin is still unclear however patient has been afebrile x48 hours now -Sed rate and CRP are markedly elevated however I discussed the case with Dr. Rodriguez who also discussed the case with Dr. 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 CBC with differential Moderate right knee effusion -Moderate effusion not identified on ultrasound via arthrocentesis 02/15/2023 -Gram stain is unremarkable for all organisms -Discussed case with orthopedic surgery and they are very doubtful that her joint is infected and suspect that her sed rate elevation and CRP elevation are likely due to her fracture TAWANDA on CKD stage IIIb -Baseline serum creatinine seems to fluctuate but is anywhere from 1.3-1.65 -Serum creatinine is down to 1.63 today which is close to her baseline -We will continue IV fluids for the next 24 hours then discontinue -Avoid nephrotoxins -Renal ultrasound shows no acute findings other than bladder enlargement and bladder scan was performed showing 800 and her bladder -She had was required intermittent catheterization and having significant difficulty getting up to bedside commode so we will place Aguilar -Repeat BMP in a.m. Right tibial plateau fracture -Plain film was unremarkable however CT of the lower leg was done on 02/13/2023 and shows tibial plateau fracture -Nonweightbearing -Straight leg brace -Orthopedic surgery follow-up after discharge -Continue PT/OT -We will likely need placement at discharge-Case management/social work consulted -Appreciate orthopedic surgery input--> we will plan to have patient follow-up in [address] Lavinia mcintyre as an outpatient Urinary retention -Continue Flomax -Aguilar -Patient may need discharged with Aguilar with trial out once mobility is improved -Patient on bowel regimen Hyponatremia -Improving with IV hydration -Suspect hypovolemia hyponatremia -No further work-up required at this time Generalized weakness -Continue therapy services -Plan is for TCU at discharge -Patient having significant difficulty with any mobility PAF/paroxysmal flutter -Continue home amiodarone -Not on any chronic anticoagulation due to fall risk and anemia Hypertension -Hold Coreg and amlodipine for now and reinitiate when appropriate -Monitor blood pressures especially with fever Chronic normocytic anemia -Hemoglobin down to 6.5 this morning we will transfuse 2 units -Patient follows with Dr. Villa as an outpatient and work-up is pending for this Nonischemic cardiomyopathy -Last echocardiogram done in 2017 showed EF of 65% with mildly enlarged LA and mild valvular issues with no other concerns -Continue above medications DM-2 hold home oral agents -SSI -Continue Lantus at 20 units -Blood sugars are more controlled today Diabetic neuropathy -Continue home gabapentin History of gout -Continue home allopurinol and decrease dose to 100 mg daily with worsening renal function Vitamin D deficiency -Continue home cholecalciferol Hyperlipidemia -Continue home Colestid GERD -Continue home PPI Hypothyroidism -Continue home levothyroxine DVT prophylaxis -Continue Lovenox CODE STATUS -DNR CCA with no intubation as affirmed on admission Disposition: Anticipated charge to the TCU tomorrow as long as she remains clinically stable off antibiotics and culture of her knee joint remains unremarkable Charges/Coding Visit Charges Inpatient E&M: 28561 Subs Hosp L2
[2023-02-16 15:45] LABS: Vancomycin, Trough Level 9.9 ug/mL (5.0-15.0)
[2023-02-16] MEDS: Tamsulosin HCl 0.4 MG Capsule PO (16:31)
[2023-02-16 21:07] LABS: Bedside Glucose 258 mg/dL (74-106)
[2023-02-16] MEDS: Iron Polysaccharide Complex 150 MG CAPSULE 300 MG PO (21:15)
[2023-02-16] MEDS: Insulin Glargine-YFGN 100 UNIT/ML Pen 20 UNIT SC (21:16)
[2023-02-16 21:42] LABS: Bedside Glucose 277 mg/dL (74-106)
[2023-02-17] MEDS: Acetaminophen 325 MG Tablet 650 MG PO ×2 (02:15→08:44)
[2023-02-17 02:30] VITALS: BP 121/47; PULSE 77; RESP 16; TEMP 37; O2SAT 96
[2023-02-17 06:00] VITALS: BMI 32.2
[2023-02-17] MEDS: traMADol 50 MG Tablet PO (06:23)
[2023-02-17] MEDS: Levothyroxine 137 MCG Tablet PO (06:23)
[2023-02-17] MEDS: Insulin Lispro 100 UNIT/ML INSULN.PEN SC (06:23)
[2023-02-17] MEDS: Gabapentin 300 MG Capsule PO (06:23)
[2023-02-17 07:31] LABS: Absolute Lymphocyte Count 0.98 X10^3/uL (0.83-4.51); Absolute Neutrophil Count 4.2 X10^3/uL (2.0-7.7); Basophil# 0.03 X10^3/uL; Basophil% 0.5 % (0-1); Eosinophil# 0.37 X10^3/uL; Eosinophils% 5.7 % (0-5); Hematocrit 25.4 % (37-47); Hemoglobin 8.2 g/dL (12.0-15.0); Lymphocyte # 0.98 X10^3/ul (0.83-4.51); Mean Corp Hgb Conc 32.3 g/dL (32-36); Mean Corpuscular Hgb 28.6 pg (27.0-32.0); Mean Corpuscular Volume 88.5 fL (81-99); Mean Platelet Vol. 9.3 fl (6.2-12.0); Monocyte# 0.85 X10^3/uL; NRBC Flagged by Analyzer 0 % (0-5); Neutrophil # 4.22 X10^3/uL (2.7-7.7); Neutrophil % 64.7 % (47-70); Platelet Count 286 K/mm3 (150-450); RBC Distribution Width CV 14.8 % (11.6-14.6); Red Blood Count 2.87 M/mm3 (4.2-5.4); White Blood Count 6.5 K/mm3 (4.4-11.0)
[2023-02-17 08:04] LABS: Anion Gap 5 (5-15); BUN 55 mg/dL (7-18); BUN/Creat Ratio 40.7 RATIO (10-20); Calcium,Total 8.2 mg/dL (8.5-10.1); Chloride 109 mmol/L (98-107); Creatinine, Serum 1.35 mg/dL (0.55-1.02); EST Glomerular Filtration Rate 40 mL/min (>60); Est Glom Filt Rate - Afr Amer 48 mL/min (>60); Estimated Creatinine Clearance 31.24 ml/min; Glucose 164 mg/dL (74-106); Potassium 4.8 mmol/L (3.5-5.1); Sodium Level 137 mmol/L (136-145)
[2023-02-17 08:08] LABS: Bedside Glucose 175 mg/dL (74-106)
[2023-02-17] MEDS: Senna Tablet 1 TABLET PO (08:40)
[2023-02-17] MEDS: Folic Acid 1 MG Tablet PO (08:40)
[2023-02-17] MEDS: Amiodarone 200 MG Tablet PO (08:40)
[2023-02-17] MEDS: Multivitamins,Ther W-Minerals Tablet 1 TABLET PO (08:40)
[2023-02-17] MEDS: Psyllium 1 PACKET PO (08:41)
[2023-02-17] MEDS: Pantoprazole Sodium 40 MG Tablet PO (08:41)
[2023-02-17] MEDS: Enoxaparin 30 MG/0.3 ML Syringe SC (08:41)
[2023-02-17] MEDS: Menthol/Lanolin/Calamine/Znox 113 GM Tube 1 APPLIC TOPICAL (08:42)
[2023-02-17] MEDS: Colestipol 1 GM TABLET PO (08:42)
[2023-02-17] MEDS: Arthritis Pain Compound 60 CLICK TUBE TOPICAL (08:43)
[2023-02-17] MEDS: Allopurinol 100 MG Tablet PO (08:43)
[2023-02-17] MEDS: Polyethylene Glycol 3350 17 GM PACKET PO (08:44)
[2023-02-17 09:00] VITALS: BP 124/50; PULSE 80; RESP 18; TEMP 36.9; O2SAT 96
[2023-02-17 10:00] VITALS: PULSE 80; O2SAT 95
--- NOTE | 2023-02-17 11:16 | PCM.TXEXTCAR ---
Diet Diet Order/Speech Therapy: 02/10/23 07:29 Diet: Consistent Carb - Calorie Controlled Food consistency:: Regular Liquid Consistency:: Regular/Thin Dietary Modifications:: Cardiac / Heart Healthy Sodium Restricted Type of Dietary Supplement:: Ensure Plus High Protein Diet Comments: 120mL ensure plus high protein BID w/ breakfast and lunch meals How many daily calories?: 1800 calorie Routine Orders/Code Status Enema Frequency: Daily PRN Suppository Frequency: Daily PRN Change Aguilar Catheter: try to remove as pt gets up and moves more Routine Lab Work: CBC (1 week) and BMP (1 week) Code Status: DNRCC-A (no ett) Wound(s) Lt Buttocks: Wound Type: Skin Tear Suggestions for Active Care Change Position every (hours): 2 Hours to sit in a chair: 3 Times a day to sit in chair: 2 Therapies Weight Bearing: Non weight bearing Extremity Affected:: Right Lower Physical Therapy: Eval and Treat Occupational Therapy: Eval and Treat Problem/Diagnosis (1) Urinary retention: Status: Acute Code(s): R33.9 - Retention of urine, unspecified (2) Right tibial fracture: Status: Acute Code(s): S82.201A - Unspecified fracture of shaft of right tibia, initial encounter for closed fracture (3) Elevated serum creatinine: Status: Acute Code(s): R79.89 - Other specified abnormal findings of blood chemistry (4) Inability to ambulate due to right knee: Status: Acute Code(s): R26.2 - Difficulty in walking, not elsewhere classified (5) Weakness: Status: Acute Code(s): R53.1 - Weakness (6) Fever, unknown origin: Status: Acute Code(s): R50.9 - Fever, unspecified (7) Injury of right lower extremity: Status: Acute Code(s): S89.91XA - Unspecified injury of right lower leg, initial encounter Allergies/Procedures Done in Hospital Allergies iodine Allergy (Verified 02/10/23 03:34) Hives simvastatin Allergy (Verified 02/10/23 03:34) Other Hshtgpr-[id number]-GaB Reductase Inhibitor [Bvojcuc-Crp-Zvf Reductase Inhibitor] Adverse Reaction (Severe, Verified 02/10/23 03:34) mylagias Procedures: - (CT right lower extremity, venous Dopplers, renal ultrasound, arthrocentesis right knee) Type of Care/Length of Stay Estimated LOS: Convalescent Care Less Than 30 days Type of Care Needed: Skilled Rehab Potential: Fair Prognosis: Good Additional Orders/Day of Discharge Day of Discharge: 02/17/23 Dietary and Speech Recommendations Dietitian Recommendations/Changes: Will continue 1800 calorie/consistent carbohydrate; cardiac/sodium-restricted with FR as per physician as indicated. Will d/c extra 1 oz protein/meat with meals. Will adjust 120mL ensure plus high protein to BID w/ meals. Monitor renal labs and need to restrict protein as needed. Follow Up Care Please follow up with your Primary Care Physician in: 1 month Please Follow Up With: Dusty Lord DO When: 1 week Please Follow Up With: DOMINICK When: As scheduled for next Monday--> [facility] Hematology/Oncology Discharge Plan Admission Admit Date/Time: 02/13/23 15:10 Attending Provider: Sheela Caruso Primary Care Provider: Stefan Gordon Consulting Providers: Chrissy Zimmerman; Serg Nunez; Jhon Rodriguez Discharge Orders/Prescriptions Prescriptions: No Action pioglitazone 15 mg tablet 30 mg PO QHS cholecalciferol (vitamin D3) 50,000 unit capsule 50,000 unit PO TU cyanocobalamin (vitamin B-12) 1,000 mcg/mL solution 1,000 mcg IM QMONTH psyllium husk [Fiber (psyllium husk)] 0.52 gram capsule 1.04 g PO DAILY carvedilol 25 mg tablet 25 mg PO BID amlodipine 2.5 mg tablet 2.5 mg PO DAILY allopurinol 100 MG tablet 200 mg PO DAILYCM lansoprazole 30 MG capsule 30 mg PO DAILY gabapentin 300 mg capsule 300 mg PO TID dulaglutide 1.5 MG/0.5 ML pen injector 1.5 mg SQ PONCE amiodarone 200 MG tablet 200 mg PO DAILY acetaminophen 500 MG tablet 1,000 mg PO Q6H PRN (Reason: Pain Score 1-10) 0RF levothyroxine 137 mcg tablet 137 mcg PO DAILY Colestid 1 gram tablet 1 gm PO/SL BID amiodarone 200 mg tablet 200 mg PO/SL DAILY folic acid 1 mg tablet 1 mg PO/SL DAILY glimepiride 2 mg tablet 2 mg PO/SL DAILY multivitamin with iron capsule 1 tablet PO/SL DAILY tramadol 50 mg tablet 25 mg PO BID PRN PRN (Reason: pain) Patient Comments: take 1/2 to 1 tablet by mouth up to twice a day NEEDED FOR PAIN Referrals / Follow Up: Stefan Gordon MD [Primary Care Provider] - (2) Right tibial fracture Qualifiers: Encounter type: initial encounter Tibia location: proximal Fracture type: closed
--- NOTE | 2023-02-17 11:20 | DS.PCM_ITS ---
Providers Date of Admission: 02/13/23 Date of Discharge: 02/17/23 Primary Care Physician: Dr. Stefan Gordon MD Consultations 02/13/23 10:38 Consult: Orthopedics Routine Consulting Provider: Jhon Rodriguez Reason for Consult: nondisplaced tibia fracture EMERGENT Consult: No MD Notified: Yes Date Notified: 02/13/23 Time Notified: 10:44 Method of Notification: Verbal Reason For Visit: FALL, RLE PAIN Diagnosis Discharge Diagnosis (1) Urinary retention: Status: Acute Code(s): R33.9 - Retention of urine, unspecified (2) Right tibial fracture: Status: Acute Code(s): S82.201A - Unspecified fracture of shaft of right tibia, initial encounter for closed fracture Qualifiers: Encounter type: initial encounter Tibia location: proximal Fracture type: closed (3) Elevated serum creatinine: Status: Acute Code(s): R79.89 - Other specified abnormal findings of blood chemistry (4) Inability to ambulate due to right knee: Status: Acute Code(s): R26.2 - Difficulty in walking, not elsewhere classified (5) Weakness: Status: Acute Code(s): R53.1 - Weakness (6) Fever, unknown origin: Status: Acute Code(s): R50.9 - Fever, unspecified (7) Injury of right lower extremity: Status: Acute Code(s): S89.91XA - Unspecified injury of right lower leg, initial encounter Medications at Discharge Home Medications allopurinol 100 mg tablet 200 mg PO DAILYCM gout 07/04/13 lansoprazole 30 mg capsule,delayed release 30 mg PO DAILY GERD 07/04/13 pioglitazone 15 mg tablet 30 mg PO QHS diabetes 03/29/19 cholecalciferol (vitamin D3) 1,250 mcg (50,000 unit) capsule 50,000 unit PO TU bones 05/07/19 dulaglutide 1.5 mg/0.5 mL subcutaneous pen injector 1.5 mg SQ PONCE diabetes 07/24/20 acetaminophen 500 mg tablet 1,000 mg (2 x 500 mg) PO Q6H PRN Pain Score 1-10 08/26/20 levothyroxine 137 mcg tablet 137 mcg PO DAILY 10/22/20 carvedilol 25 mg tablet 25 mg PO BID blood pressure 12/11/20 cyanocobalamin (vitamin B-12) 1,000 mcg/mL injection solution 1,000 mcg IM QMONTH 12/11/20 psyllium husk 0.52 gram capsule (Fiber (psyllium husk)) 1.04 g PO DAILY 12/11/20 gabapentin 300 mg capsule 300 mg PO TID neuropathy 03/02/22 Colestid 1 gm PO/SL BID 03/09/22 amiodarone 200 mg PO/SL DAILY 03/09/22 folic acid 1 mg PO/SL DAILY 03/09/22 glimepiride 2 mg PO/SL DAILY 03/09/22 multivitamin with iron 1 tablet PO/SL DAILY 03/09/22 amlodipine 2.5 mg tablet 2.5 mg PO DAILY 08/22/22 tramadol 50 mg tablet 25 mg PO BID PRN PRN pain 02/10/23 Arthritis Pain Compound 0 click topical BID ##0 02/17/23 peg [id number] 1 %-0.2 %-0.2 % eye drops (Artificial Tears ([id number])) 2 drp EACH EYE Q1H PRN PRN DRY EYES #0 mL 02/17/23 polyethylene glycol 3350 17 gram oral powder packet 17 g PO DAILY #0 ea 02/17/23 sennosides 8.6 mg-docusate sodium 50 mg tablet (Stool Softener-Stimulant Laxativ e) 2 tab PO BID PRN PRN Constipation #0 tabs 02/17/23 sodium chloride 0.65 % nasal spray aerosol (Deep Sea Nasal) 2 spray NASAL Q4H PRN PRN NASAL DRYNESS #0 mL 02/17/23 tamsulosin 0.4 mg capsule 0.4 mg PO DAILY@1730 #0 caps 02/17/23 tramadol 50 mg tablet 50 mg PO Q6H PRN PRN pain 3-10 #4 tabs 02/17/23 Hospital Course Operations None Procedures - (X-ray tibia/fibula/CT right lower extremity/venous duplex/renal ultra sound/right knee arthrocentesis) Summary of Care Provided Minutes Spent on Discharge: 40 Hospital Course: Mrs. Romero is an 82-year-old white female who presented to the emergency department at [facility] on 02/10/2023 after sustaining a mechanical fall. She reported at 3:30 in the morning she was getting up to use the bathroom and utilizing her walker however unfortunately she fell and injured her right leg. She was unsure of the exact mechanism injured her leg but had significant pain and debility following the fall and had difficulty bearing weight. Vital signs on presentation were unremarkable and she was admitted under observation status for further placement. She had difficulty with physical therapy and will require ongoing therapy services. She continues to have pain in her distal leg and has since developed a fever. UA was obtained and was unremarkable. Urine culture was sent and showed Proteus at colony counts of 11-25,000. She was treated for 3 days with antibiotics during her hospital course but I do not suspect this was the etiology of her fever. Chest x-ray was obtained and shows only a small left-sided pleural effusion but was otherwise unremarkable for any infiltrate. Procalcitonin was obtained and was slightly elevated however she has some renal dysfunction that seems to be somewhat worsening. COVID-19 was unremarkable. Blood cultures were negative. She was placed on broad-spectrum antibiotics which were discontinued on 02/16/2023 and she demonstrated no further fevers. She is having going pain in her right lower extremity so obtain a CT of her right lower extremity which demonstrated a tibial plateau fracture as well as a moderate joint effusion. Orthopedic surgery was consulted and evaluated the patient. They recommended conservative management and that the patient be nonweightbearing with a long-leg brace on and follow-up with outpatient orthopedic surgery about 1 to [address] Lord did her right knee replacement and Dr. Rodriguez recommended following up with him. When we could not find a source for her fever we did arthrocentesis thinking that she may have a joint infection with her CT showing a moderate effusion however there was minimal fluid present. They sent cultures however they were not able to obtain enough fluid to send cell counts. Cultures were negative at 48 hours for any growth. Of note she was on antibiotics while these cultures were obtained. She did have a markedly elevated sed rate and CRP. I discussed further with orthopedic surgery and they were fairly confident that they joint was not infected and felt that the elevated inflammatory markers were likely related to her fracture. We also obtained ultrasound of bilateral lower extremities to rule out DVT is a etiology for fever and these were unremarkable as well. She developed some dehydration for which we placed her on IV fluids and her antihypertensives were held. Urine studies showed that her urine sodium was less than 5 and FeNa was consistent with dehydration. She responded well to IV fluids. Renal ultrasound was performed and unremarkable for any acute findings. Her bladder was distended at that time and she was straight cath initially but as noted below a Aguilar was required. I will continue to hold her antihypertensives at discharge as her blood pressure is normalized but is not elevated at this time. I would recommend restarting as her blood pressure increases. She had issues with urinary retention however her mobility was quite limited and she had some constipation. We are working on her constipation giving her stool softeners as well as MiraLAX and I am hoping that once her constipation improves that her urinary retention will decrease however we did require Aguilar placement during her hospitalization. I would monitor closely and get this removed soon as possible. I suspect as she improves with mobility her urinary retention should decrease as should her is constipation. She has had ongoing issues with anemia and is following with Dr. Villa over at [facility] hematology oncology. She has had multiple EGDs colonoscopies and small bowel capsule endoscopies without an etiology being identified. She did require blood transfusion during her hospital stay at which time I gave her 2 units packed red blood cells on 02/16/2023. Her hemoglobin corrected appropriately. I would recommend that a repeat BMP and CBC be done within the next week. She has an appointment with Dr. Villa on Monday of next week and will need to keep this appointment. She should follow-up with her primary care physician after discharge from TCU. Discharge diagnoses: Fever of unknown origin Moderate right knee effusion-ended up being small TAWANDA-resolved CKD stage IIIb Right tibial plateau fracture Urinary retention Constipation Limited mobility Hyponatremia-resolved Generalized weakness PAF Hypertension Chronic normocytic anemia Nonischemic cardiomyopathy DM-2 Diabetic neuropathy History of gout Vitamin D deficiency Hyperlipidemia GERD Hypothyroidism Obesity Physical Exam Const alert, oriented x3, no apparent distress, no limitations and well nourished; Negative for average body habitus Constitutional Narrative: Obese, elderly, white female, sitting up in bed, appears comfortable and nontoxic, watching television, very pleasant General Appearance: cooperative, comfortable, well kempt and well developed Orientation / Consciousness: awake, oriented to person and oriented to time Exam Limitations: no limitations Nutritional Appearance: obese HEENT normocephalic, head/scalp atraumatic, hearing grossly normal bilaterally, nasal mucous membranes and turbinates normal, moist oral mucous membranes and oropharynx normal HEENT Narrative: Dentition is fair for age, Mallampati is 3, no thrush Eyes PERRL, EOMs intact bilaterally and conjunctivae normal Eyes Narrative: No scleral icterus Neck full ROM, no lymphadenopathy and supple Neck Narrative: Trachea midline, no thyroid enlargement Resp normal respiratory effort, normal air movement, no retractions, no use of accessory muscles and clear to auscultation bilaterally Auscultation: Negative for rales, rhonchi or wheezes Cardio regular rate, regular rhythm, S1 normal heart sound, S2 normal heart sound, no murmurs, no rub, no gallops and no clicks GI normal to inspection, nondistended, normoactive bowel sounds, soft to palpation, non-tender and non-distended Extremity no clubbing, cyanosis or edema Extremity Narrative: 2+ pedal pulses, mild tenderness at right tibial plateau region movement at right knee joint is limited due to pain, right lower extremity knee immobilizer in place Skin no wounds, skin turgor normal, no jaundice, no petechiae and no mottling Skin Narrative: Few scattered ecchymoses Neuro oriented x3, CN's II-XII intact bilaterally and no focal motor deficits Neuro Narrative: Able to move all extremities but decreased right lower extremity movement due to pain with immobilizer currently in place Speech: speech normal Psych mental status grossly normal and affect normal Psych Narrative: Very pleasant, interacts appropriately Weight / BMI Weight Weight: 93.2 kg Body Mass Index (BMI) 32.2 ABG / Lab / Microbiology Data 02/17/23 06:45 02/17/23 06:45 Laboratory: Laboratory Results - last 24 hr 02/15/23 09:57: Blood Type O NEGATIVE, Antibody Screen NEGATIVE, Crossmatch See Detail 02/16/23 11:07: POC Glucose 293 H 02/16/23 14:34: Vancomycin Trough 9.9 02/16/23 16:30: POC Glucose 258 H 02/16/23 21:14: POC Glucose 277 H 02/17/23 06:20: POC Glucose 175 H 02/17/23 06:45: WBC 6.5, RBC 2.87 L, Hgb 8.2 L, Hct 25.4 L, MCV 88.5, MCH 28.6, MCHC 32.3, RDW Std Deviation 48.0 H, RDW Coeff of Melanie 14.8 H, Plt Count 286, MPV 9.3, Immature Gran % (Auto) 1.100 H, Neut % (Auto) 64.7, Lymph % (Auto) 15.0 L, Randall % (Auto) 13.0 H, Eos % (Auto) 5.7 H, Baso % (Auto) 0.5, Absolute Neuts (auto) 4.2, Absolute Lymphs (auto) 0.98, Nucleated RBC % 0, Sodium 137, Potassium 4.8, Chloride 109 H, Carbon Dioxide 23.0, Anion Gap 5, BUN 55 H, Creatinine 1.35 H, Estim Creat Clear Calc 31.24, Est GFR (MDRD) Af Amer 48 L, Est GFR (MDRD) Non-Af 40 L, BUN/Creatinine Ratio 40.7 H, Glucose 164 H, Calcium 8.2 L Microbiology: Microbiology 02/15/23 10:25 Fluid - Synovial (joint) Gram Stain - Final 02/15/23 10:25 Fluid - Synovial (joint) Anaerobic Culture - Preliminary No growth in 48 hours. 02/13/23 09:58 Blood Culture (Wb) - Anticubital Right Blood Culture - Pre liminary No growth in 48 hours. 02/13/23 09:58 Blood Culture (Wb) - Anticubital Left Blood Culture - Preliminary No growth in 48 hours. 02/13/23 04:30 Mucosa - Nasopharyngeal Coronavirus COVID-19 PCR - Final 02/11/23 22:40 Urine, Clean Catch Urine Culture - Final Escherichia coli D/C Instructions Please Follow Up With: Dusty Lord, DO Meaningful Use Info Meaningful Use Diagnoses (Choose all that apply): None applicable Discharge Plan Admission Admit Date/Time: 02/13/23 15:10 Primary Reason for Your Visit: Mechanical fall/right leg pain Attending Provider: Sheela Caruso Primary Care Provider: Stefan Gordon Consulting Providers: Chrissy Zimmerman; Serg Nunez; Jhon Rodriguez Instructions Additional Instructions / Restrictions: 1. Please follow-up with Dr. Villa as previously set up for appointment next Monday Discharge Orders/Prescriptions Prescriptions: New Arthritis Pain Compound 0 click topical BID Qty: 0 0RF polyethylene glycol 3350 17 gram Powder In Packet 17 g PO DAILY Qty: 0 0RF tramadol 50 mg Tablet 50 mg PO Q6H PRN PRN (Reason: pain 3-10) Qty: 4 0RF sennosides-docusate sodium [Stool Softener-Stimulant Laxat] 8.6-50 mg Tablet 2 tab PO BID PRN PRN (Reason: Constipation) Qty: 0 0RF tamsulosin 0.4 mg Capsule 0.4 mg PO DAILY@1730 Qty: 0 0RF Artificial Tears([id number]) 1-0.2-0.2 % Drops 2 drp EACH EYE Q1H PRN PRN (Reason: DRY EYES) Qty: 0 0RF Deep Sea Nasal 0.65 % Aerosol,Whick 2 spray NASAL Q4H PRN PRN (Reason: NASAL DRYNESS) Qty: 0 0RF Continued pioglitazone 15 mg tablet 30 mg PO QHS cholecalciferol (vitamin D3) 50,000 unit capsule 50,000 unit PO TU cyanocobalamin (vitamin B-12) 1,000 mcg/mL solution 1,000 mcg IM QMONTH psyllium husk [Fiber (psyllium husk)] 0.52 gram capsule 1.04 g PO DAILY allopurinol 100 MG tablet 200 mg PO DAILYCM lansoprazole 30 MG capsule 30 mg PO DAILY gabapentin 300 mg capsule 300 mg PO TID dulaglutide 1.5 MG/0.5 ML pen injector 1.5 mg SQ PONCE acetaminophen 500 MG tablet 1,000 mg PO Q6H PRN (Reason: Pain Score 1-10) 0RF levothyroxine 137 mcg tablet 137 mcg PO DAILY Colestid 1 gram tablet 1 gm PO/SL BID amiodarone 200 mg tablet 200 mg PO/SL DAILY folic acid 1 mg tablet 1 mg PO/SL DAILY glimepiride 2 mg tablet 2 mg PO/SL DAILY multivitamin with iron capsule 1 tablet PO/SL DAILY Held carvedilol 25 mg tablet 25 mg PO BID Hold Instructions: Until instructed otherwise amlodipine 2.5 mg tablet 2.5 mg PO DAILY Hold Instructions: Until instructed otherwise tramadol 50 mg tablet 25 mg PO BID PRN PRN (Reason: pain) Hold Instructions: Until otherwise instructed Patient Comments: take 1/2 to 1 tablet by mouth up to twice a day NEEDED FOR PAIN Discontinued amiodarone 200 MG tablet 200 mg PO DAILY Referrals / Follow Up: Dusty Lord DO [Med Staff - Active Staff] - Within 1 Week Stefan Gordon MD [Primary Care Provider] - Within 1 Month Disposition Disposition (needs filled in before D/C Order can be placed): Sn[facility] Facility Charges/Coding Visit Charges Inpatient E&M: 46244 SNF Disch >30 Min
--- NOTE | 2023-02-17 11:46 | NURSING ---
report called to tcu STAFF
--- NOTE | 2023-02-17 12:07 | CASEMGMT ---
Social Work Patient is accepted to TCU for skilled level of care. Collaboration with Annalisa in admissions at TCU about TCU having positive COVID patients right now, and Annalisa wanting to ensure patient still agreeable to plan. No COVID test needed from [facility], as patient's are tested upon admission to TCU. No change in visitation. Met with patient, patient's niece Lupe and Lupe's in room. Patient agreeable for SW update with family present. Updated to TCU COVID status. Patient agreeable to continue with plan to TCU. Updated physician and nursing. Faxed orders to TCU tank charger. Plan: TCU, skilled level of care for a less than 30 day convalescent stay. -JOYA Sheppard
--- NOTE | 2023-02-17 14:55 | CHAPLAIN ---
Type of Pastoral Visit ___ Initial Visit _x__ Follow-up Visit ___ On-call Visit ___ General Patient Visit ___ Spiritual Assessment ___ Family Conference ___ Bereavement ___ Rapid Response ___ Code Blue ___ Other (describe below) Pastoral Care Referral From _x__ Patient ___ Family ___ Nurse ___ Physician ___ Veterinary Radiologist ___ Blood Bank Laboratory Professional ___ Other (describe below) Sacrament/Intervention _x__ Active listening ___ Anointing ___ Denominational ___ Bereavement ___ Communion ___ Brigida exploration ___ ___ Life review ___ Prayer ___ Reconciliation ___ Sacrament of Sick ___ Supportive presence ___ Wedding ___ Other (describe below) Pastoral Comments follow up to patient; pt reports feeling better today and is thankful that she can be moved to [facility] today; pt welcomes support but has no other concerns at this time
== END 2023-02-17 12:50 | disposition skilled nursing facility (03) | DRG 864 ==
LOC: ED 05:43 → PCU 05:52 → MS3 18:24
PROVIDERS: Hospitalist; Admitting Provider Family Medicine; Emergency Provider Emergency Medicine; PCP Family Medicine; Visit Provider Internal Medicine
DX: R50.9 Fever, unspecified (principal); N17.9 Acute kidney failure, unspecified; I42.8 Other cardiomyopathies; E87.1 Hypo-osmolality and hyponatremia; S82.134A Nondisplaced fracture of medial condyle of right tibia, initial encounter for closed fracture; E11.22 Type 2 diabetes mellitus 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 chronic kidney disease; D50.9 Iron deficiency anemia, unspecified; I48.0 Paroxysmal atrial fibrillation; E86.0 Dehydration; N18.32 Chronic kidney disease, stage 3b; E11.40 Type 2 diabetes mellitus 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 neuropathy, unspecified; E03.9 Hypothyroidism, unspecified; I12.9 Hypertensive chronic kidney disease with stage 1 through stage 4 chronic kidney disease, or unspecified chronic kidney disease; R26.2 Difficulty in walking, not elsewhere classified; G47.33 Obstructive sleep apnea (adult) (pediatric); E78.5 Hyperlipidemia, unspecified; M10.9 Gout, unspecified; K21.9 Gastro-esophageal reflux disease without esophagitis; E55.9 Vitamin D deficiency, unspecified; E87.5 Hyperkalemia; K59.00 Constipation, unspecified; W19.XXXA Unspecified fall, initial encounter; M25.461 Effusion, right knee; E66.9 Obesity, unspecified; Z79.84 Long term (current) use of oral hypoglycemic drugs; R53.1 Weakness; Z66 Do not resuscitate; F41.1 Generalized anxiety disorder; R30.0 Dysuria; R33.9 Retention of urine, unspecified; Y92.002 Bathroom of unspecified non-institutional (private) residence as the place of occurrence of the external cause; Y93.01 Activity, walking, marching and hiking; Z20.822 Contact with and (suspected) exposure to COVID-19; R53.81 Other malaise; Z68.32 Body mass index [BMI] 32.0-32.9, adult; Z96.651 Presence of right artificial knee joint; Z79.890 Hormone replacement therapy; Z79.899 Other long term (current) drug therapy
CPT/HCPCS: 20610; 36415; 36600; 71045; 73590; 73700; 76770; 77002; 80048; 80053; 80202; 81001; 82570; 82803; 82962; 83735; 84100; 84145; 84300; 85018; 85025; 85027; 85652; 86140; 86850; 86900; 86901; 86920; 86922; 87040; 87070; 87075; 87086; 87088; 87186; 87205; 87635; 88108; 88305; 88313; 93970; 94668; 97110; 97164; 97166; 97530; 97535; 97802; 99285; J7030; J7040; J7050; P9016; Q9967; A4216

== ENCOUNTER 2023-02-17 13:00 | Inpatient (IN) | payer MEDICARE, SELFPAY ==
[2023-02-17 14:09] VITALS: BP 130/53; PULSE 77; RESP 16; TEMP 36.6; O2SAT 95
--- NOTE | 2023-02-17 15:14 | PCM.HP.STD ---
HPI - General General Date of Admission: 02/17/23 Date of Service: 02/17/23 Chief Complaint: Here for rehabilitation. HPI Narrative 02/10/2023 YENNIFER JARAMILLO, is a 82 Female who presents to [facility] Emergency Department with lower extremity injury. Going to Bathroom, using walker, fell. Right lower leg pain. X-ray right tibia/fibula negative fracture. 02/10/2023 Admit to Hospital. Pain control, PT/OT right lower extremity pain. 02/11/2023 Right leg pain improved. PT/OT SNF. No anticoagulation for atrial fibrillation secondary to falls. Dysuria, foul urine, check UA, C+S. 02/12/2023 Dysuria improved. Hold antibiotics, await urine C+S. PT/OT SNF. 02/12/2023 UA +/-, urine culture negative, check CXR, covid19. 02/13/2023 Fever, on Ceftriaxone, source unknown. IV fluids for acute kidney injury, Creatinine 1.77. CT right lower extremity to look for occult fracture, shows right proximal tibial fracture. Doppler ultrasound bilateral lower extremity negative DVT. Dr. Jhon Rodriguez thinks right lower extremity pain from hemarthrosis, recommend knee immobilizer, NWB RLE, patient declined right knee arthrocentesis. 02/14/2023 Dysuria improved, right leg pain improved. No source of fever. Change Ceftriaxone to Zosyn, Vancomycin, source unknown. Consider right knee aspiration. 02/15/2023 Vancomycin, Zosyn for fever, source unknown. Right knee ultrasound guided arthrocentesis performed. Ortho feels right knee not infected. 02/16/2023 Feeling better, afebrile 48 hours. Transfuse 2 units PRBC for Hemoglobin 6.5. Cultures negative, WBC normal, stop antibiotics, monitor. PT/OT for TCU. 02/17/2023 Admit to TCU with debility, here for rehabilitation, strengthening, prior to discharge home alone. [facility] Medical History Anemia Arthritis Cardiomyopathy in disease classified elsewhere Choledocholithiasis with acute cholecystitis Chronic kidney disease CPAP (continuous positive airway pressure) dependence Generalized anxiety disorder Generalized osteoarthritis History of hiatal hernia Hyperlipidemia Non-smoker Paroxysmal atrial fibrillation Paroxysmal atrial flutter Post-menopausal Sleep apnea Thyroid disease Type 2 diabetes mellitus Walker as ambulation aid Wears glasses Wears hearing aid Home Medications allopurinol 100 mg tablet 200 mg PO DAILYCM gout 07/04/13 [History Last Taken 08/18/20] lansoprazole 30 mg capsule,delayed release 30 mg PO DAILY GERD 07/04/13 [History Last Taken 08/18/20] pioglitazone 15 mg tablet 30 mg PO QHS diabetes 03/29/19 [History Last Taken 08/18/20] cholecalciferol (vitamin D3) 1,250 mcg (50,000 unit) capsule 50,000 unit PO TU bones 05/07/19 [History Last Taken 08/18/20] dulaglutide 1.5 mg/0.5 mL subcutaneous pen injector 1.5 mg SQ PONCE diabetes 07/24/20 [History Last Taken 08/16/20] acetaminophen 500 mg tablet 1,000 mg (2 x 500 mg) PO Q6H PRN Pain Score 1-10 08/26/20 [Rx Last Taken Unknown] levothyroxine 137 mcg tablet 137 mcg PO DAILY thyroid 10/22/20 [History Last Taken Unknown] carvedilol 25 mg tablet 25 mg PO BID blood pressure 12/11/20 [History Last Taken Unknown] cyanocobalamin (vitamin B-12) 1,000 mcg/mL injection solution 1,000 mcg IM QMONTH supplement 12/11/20 [History Last Taken Unknown] psyllium husk 0.52 gram capsule (Fiber (psyllium husk)) 1.04 g PO DAILY fiber 12/11/20 [History Last Taken Unknown] gabapentin 300 mg capsule 300 mg PO TID neuropathy 03/02/22 [History Last Taken 02/17/23] Colestid 1 gm PO/SL BID cholesterol 03/09/22 [History Last Taken Unknown] amiodarone 200 mg PO/SL DAILY Afib 03/09/22 [History Last Taken 02/17/23] folic acid 1 mg PO/SL DAILY supplement 03/09/22 [History Last Taken Unknown] glimepiride 2 mg PO/SL DAILY blood sugar 03/09/22 [History Last Taken Unknown] multivitamin with iron 1 tablet PO/SL DAILY supplement 03/09/22 [History Last Taken Unknown] amlodipine 2.5 mg tablet 2.5 mg PO DAILY BP 08/22/22 [History Last Taken Unknown] tramadol 50 mg tablet 25 mg PO BID PRN PRN pain 02/10/23 [History Last Taken Unknown] Arthritis Pain Compound 1 click topical BID pain 02/17/23 [History Last Taken 02/17/23] peg [id number] 1 %-0.2 %-0.2 % eye drops (Artificial Tears ([id number])) 2 drp EACH EYE Q1H PRN PRN DRY EYES #0 mL 02/17/23 [Rx Last Taken Unknown] polyethylene glycol 3350 17 gram oral powder packet 17 g PO DAILY bowels #0 ea 02/17/23 [Rx Last Taken 02/17/23] sennosides 8.6 mg-docusate sodium 50 mg tablet (Stool Softener-Stimulant Laxative) 2 tab PO BID PRN PRN Constipation #0 tabs 02/17/23 [Rx Last Taken Unknown] sodium chloride 0.65 % nasal spray aerosol (Deep Sea Nasal) 2 spray NASAL Q4H PRN PRN NASAL DRYNESS #0 mL 02/17/23 [Rx Last Taken Unknown] tamsulosin 0.4 mg capsule 0.4 mg PO DAILY@1730 prostate #0 caps 02/17/23 [Rx Last Taken Unknown] tramadol 50 mg tablet 50 mg PO Q6H PRN PRN pain 3-10 #4 tabs 02/17/23 [Rx Last Taken Unknown] Allergy/AdvReac Type Severity Reaction Status Date / Time iodine Allergy Hives Verified 02/10/23 03:34 simvastatin Allergy Other Verified 02/10/23 03:34 Kqwhgev-ECX-OxC Reductase AdvReac Severe mylagias Verified 02/10/23 03:34 Inhibitor [Rxixura-Awv-Dfo Reductase Inhibitor] Family History Brother Heart disease Mother Heart disease Father Heart disease Surgical History History of carpal tunnel surgery History of cataract surgery History of cholecystectomy History of knee replacement History of tonsillectomy Social History household members: none Smoking Status: Never smoker alcohol intake: never substance use type: does not use ROS Constitutional Constitutional: Denies chills, fever(s) or weight gain ENT HEENT: Denies headache(s), nasal congestion or nasal discharge Cardiovascular Cardiovascular: Denies chest pain or palpitations Respiratory/Chest Respiratory/Chest: Denies cough, excessive phlegm production or shortness of breath with exertion Gastrointestinal Gastrointestinal: Denies abdominal pain, nausea or vomiting Genitourinary Genitourinary: Reports difficulty urinating and urinary hesitancy; Denies dysuria Musculoskeletal Musculoskeletal: Reports other Details: Right knee pain. ; Denies joint pain or joint swelling Integumentary Integumentary: Denies rash or wounds Neurologic Neurologic: Denies focal weakness, numbness or tingling Psychiatric Psychiatric: Denies anxiety, auditory hallucinations, depression, homicidal ideation or suicidal ideation Vital Signs Vital Signs Vital Signs: 02/17/23 14:09 02/17/23 14:14 Temperature 97.9 F Temperature Source Temporal Pulse Rate 77 Pulse Rhythm Irregular Pulse Strength Normal (2+) Respiratory Rate 16 Respiratory Effort Normal Non-Labored Respiratory Depth Normal Respiratory Pattern Normal Blood Pressure 130/53 H Blood Pressure Mean 78 Blood Pressure Source Monitor Blood Pressure Position Semi-Fowlers Blood Pressure Location Left Arm Pulse Ox 95 Oxygen Delivery Method Room Air Room Air Physical Exam Const alert General Appearance: cooperative HEENT normocephalic Eyes PERRL and EOMs intact bilaterally Neck supple, no JVD and no carotid bruits Resp normal respiratory effort, normal air movement and clear to auscultation bilaterally Cardio regular rate and regular rhythm GI normal to inspection, nondistended, normoactive bowel sounds, non-tender and non-distended Bladder / Kidney Exam: catheter in place urethral Extremity normal capillary refill Extremity Narrative: Right knee immobilizer. General Extremity: Negative for edema Skin no rashes or lesions noted General Skin Exam: no breakdown Psych affect normal Appearance: appropriate Assessment & Plan Assessment/Plan (1) Debility: (2) Right tibial fracture: QUALIFIERS: Encounter type: initial encounter Fracture type: closed Tibia location: proximal (3) Elevated serum creatinine: (4) Urinary retention: (5) Fever, unknown origin: (6) HTN (hypertension): (7) Weakness: (8) Chronic anemia: (9) Gout: (10) Gastroesophageal reflux disease: (11) Diabetes mellitus: (12) Atrial fibrillation: (13) Hypothyroidism: (14) Diabetic polyneuropathy: (15) Iron deficiency anemia: (16) Chronic diarrhea: PLAN: Plan 82 year old female with below past medical history hospitalized for right tibial fracture, treated non-surgically, complicated by fever, source unknown, urinary retention requiring lizarraga catheter, admitted to TCU with debility, here for rehabilitation, strengthening, prior to discharge home alone. Debility - PT/OT. Pain - Tylenol 1000mg q6h prn pain (1-10), Arthritis pain 1 click topical bid. Bowel - Miralax 17gm daily, Metamucil 1 warehouse packer daily, senna/colace 2 tablets bid prn, Colestipol 1gm bid. Adult immunization - Administer pneumonia vaccine, covid19 vaccine, flu vaccine as appropriate. DVT prophylaxis - Hold, anemia. Gout - Allopurinol 200mg daily. Atrial Fibrillation - Amiodarone 200mg daily, no anticoagulation due to falls. Vitamin B12 deficiency - B12 1000mcg im qmonth. Diabetes Mellitus II - Glimepiride 2mg breakfast, Pioglitazone 30mg daily, Trulicity 1.5mg per week. Vitamin D deficiency - D2 50,000 units per week. Folate deficiency - Folic acid 1mg daily. Diabetic polyneuropathy - Gabapentin 300mg tid. Nutrition - Glucerna shake 120ml tidcm, MVI daily. Hypothyroidism - Levothyroxine 137mcg daily. Skin irritation - Calmoseptine topical bid. Tinea Corporis - Nystatin powder topical bid. GERD - Pantoprazole 40mg daily. Dry eyes - Artificial tears 2gtt q1h prn. Dry nose - Sodium chloride 2 sprays q4h prn. Urinary retention - Tamsulosin 0.4mg daily, indwelling lizarraga catheter, voiding trial 02/20/2023.
[2023-02-17] MEDS: Glucerna Shake 120 ML LIQUID PO (17:20)
[2023-02-17] MEDS: Tamsulosin HCl 0.4 MG Capsule PO (17:21)
[2023-02-17 17:43] VITALS: BMI 32.2
[2023-02-17] MEDS: Colestipol 1 GM TABLET PO (18:56)
[2023-02-17] MEDS: Acetaminophen 500 MG Tablet 1000 MG PO (20:53)
[2023-02-17] MEDS: 0.9% Saline Lock 10 ML Syringe IV (20:54)
[2023-02-17] MEDS: Gabapentin 300 MG Capsule PO (20:55)
[2023-02-17] MEDS: Pioglitazone Hydrochloride 30 MG Tablet PO (20:57)
[2023-02-17] MEDS: Arthritis Pain Compound 60 CLICK TUBE TOPICAL (20:58)
[2023-02-17] MEDS: Menthol/Lanolin/Calamine/Znox 113 GM Tube 1 APPLIC TOPICAL (21:06)
[2023-02-17] MEDS: Miconazole Nitrate 43 GM Bottle 1 APPLIC TOPICAL (23:45)
[2023-02-18] MEDS: Gabapentin 300 MG Capsule PO ×3 (06:11→21:51)
[2023-02-18] MEDS: Levothyroxine 137 MCG Tablet PO (06:11)
[2023-02-18 06:35] LABS: Bedside Glucose 188 mg/dL (74-106)
[2023-02-18] MEDS: Colestipol 1 GM TABLET PO ×2 (06:55→18:19)
[2023-02-18] MEDS: Glucerna Shake 120 ML LIQUID PO ×3 (07:54→17:29)
[2023-02-18] MEDS: Multivitamins,Ther W-Minerals Tablet 1 TABLET PO (07:56)
[2023-02-18] MEDS: Folic Acid 1 MG Tablet PO (07:56)
[2023-02-18] MEDS: Allopurinol 100 MG Tablet 200 MG PO (07:56)
[2023-02-18] MEDS: Glimepiride 2 MG Tablet PO (07:56)
[2023-02-18] MEDS: Miconazole Nitrate 43 GM Bottle 1 APPLIC TOPICAL ×2 (09:13→21:52)
[2023-02-18] MEDS: Acetaminophen 500 MG Tablet 1000 MG PO ×2 (09:16→16:32)
[2023-02-18] MEDS: Amiodarone 200 MG Tablet PO (09:17)
[2023-02-18] MEDS: Pantoprazole Sodium 40 MG Tablet PO (09:17)
[2023-02-18] MEDS: Polyethylene Glycol 3350 17 GM PACKET PO (09:17)
[2023-02-18] MEDS: Psyllium 1 PACKET PO (09:17)
[2023-02-18] MEDS: Arthritis Pain Compound 60 CLICK TUBE TOPICAL ×2 (09:18→21:52)
[2023-02-18] MEDS: Menthol/Lanolin/Calamine/Znox 113 GM Tube 1 APPLIC TOPICAL ×2 (09:19→21:52)
[2023-02-18 09:20] LABS: Absolute Lymphocyte Count 0.94 X10^3/uL (0.83-4.51); Absolute Neutrophil Count 4.5 X10^3/uL (2.0-7.7); Basophil# 0.04 X10^3/uL; Basophil% 0.6 % (0-1); Eosinophil# 0.33 X10^3/uL; Eosinophils% 4.9 % (0-5); Hematocrit 26.9 % (37-47); Hemoglobin 8.5 g/dL (12.0-15.0); Lymphocyte # 0.94 X10^3/ul (0.83-4.51); Lymphocyte % 14.1 % (19-41); Mean Corp Hgb Conc 31.6 g/dL (32-36); Mean Corpuscular Hgb 28.5 pg (27.0-32.0); Mean Corpuscular Volume 90.3 fL (81-99); Mean Platelet Vol. 9.1 fl (6.2-12.0); Monocyte# 0.77 X10^3/uL; Monocyte% 11.5 % (0-10); NRBC Flagged by Analyzer 0 % (0-5); Neutrophil # 4.49 X10^3/uL (2.7-7.7); Neutrophil % 67.1 % (47-70); Platelet Count 325 K/mm3 (150-450); RBC Distribution Width CV 14.9 % (11.6-14.6); RBC Distribution Width SD 48.9 fl (35.1-43.9); Red Blood Count 2.98 M/mm3 (4.2-5.4); White Blood Count 6.7 K/mm3 (4.4-11.0)
[2023-02-18] MEDS: Tuberculin,Purif.prot.deriv. 50 TU/ML Vial 0.1 ML ID (09:56)
[2023-02-18 10:09] LABS: Anion Gap 3 (5-15); BUN 50 mg/dL (7-18); BUN/Creat Ratio 36.8 RATIO (10-20); Calcium,Total 8.6 mg/dL (8.5-10.1); Chloride 108 mmol/L (98-107); Creatinine, Serum 1.36 mg/dL (0.55-1.02); EST Glomerular Filtration Rate 40 mL/min (>60); Est Glom Filt Rate - Afr Amer 48 mL/min (>60); Estimated Creatinine Clearance 31.01 ml/min; Glucose 221 mg/dL (74-106); Potassium 4.7 mmol/L (3.5-5.1); Sodium Level 136 mmol/L (136-145)
[2023-02-18 16:00] VITALS: BP 146/59; PULSE 75; RESP 14; TEMP 36.2; O2SAT 96
[2023-02-18] MEDS: Tamsulosin HCl 0.4 MG Capsule PO (17:29)
[2023-02-18] MEDS: Pioglitazone Hydrochloride 30 MG Tablet PO (21:51)
[2023-02-19] MEDS: Acetaminophen 500 MG Tablet 1000 MG PO ×3 (00:09→22:49)
[2023-02-19] MEDS: Gabapentin 300 MG Capsule PO ×3 (06:16→22:48)
[2023-02-19] MEDS: 0.9% Saline Lock 10 ML Syringe IV (06:16)
[2023-02-19] MEDS: Levothyroxine 137 MCG Tablet PO (06:16)
[2023-02-19 06:21] LABS: Bedside Glucose 144 mg/dL (74-106)
[2023-02-19] MEDS: Colestipol 1 GM TABLET PO ×2 (07:40→18:13)
[2023-02-19] MEDS: Glucerna Shake 120 ML LIQUID PO ×3 (07:40→17:12)
[2023-02-19] MEDS: Allopurinol 100 MG Tablet 200 MG PO (11:36)
[2023-02-19] MEDS: Multivitamins,Ther W-Minerals Tablet 1 TABLET PO (11:36)
[2023-02-19] MEDS: Folic Acid 1 MG Tablet PO (11:36)
[2023-02-19] MEDS: Glimepiride 2 MG Tablet PO (11:36)
[2023-02-19] MEDS: Amiodarone 200 MG Tablet PO (11:36)
[2023-02-19] MEDS: DULAGLUTIDE 1.5 MG/0.5 ML PEN.INJCTR SC (11:37)
[2023-02-19] MEDS: Psyllium 1 PACKET PO (11:37)
[2023-02-19] MEDS: Polyethylene Glycol 3350 17 GM PACKET PO (11:37)
[2023-02-19] MEDS: Pantoprazole Sodium 40 MG Tablet PO (11:37)
[2023-02-19] MEDS: Miconazole Nitrate 43 GM Bottle 1 APPLIC TOPICAL ×2 (11:38→22:49)
[2023-02-19] MEDS: Menthol/Lanolin/Calamine/Znox 113 GM Tube 1 APPLIC TOPICAL ×2 (11:38→22:48)
[2023-02-19] MEDS: Arthritis Pain Compound 60 CLICK TUBE TOPICAL ×2 (11:39→22:49)
[2023-02-19] MEDS: traMADol 50 MG Tablet PO (12:08)
--- NOTE | 2023-02-19 15:08 | NURSING ---
Pt's next of kin aware of new positive covid cases.
[2023-02-19 16:00] VITALS: BP 132/65; PULSE 83; RESP 16; TEMP 36.6; O2SAT 93
[2023-02-19] MEDS: Tamsulosin HCl 0.4 MG Capsule PO (17:12)
[2023-02-19] MEDS: Pioglitazone Hydrochloride 30 MG Tablet PO (22:50)
[2023-02-20] MEDS: Gabapentin 300 MG Capsule PO ×3 (05:45→21:17)
[2023-02-20] MEDS: Levothyroxine 137 MCG Tablet PO (05:45)
[2023-02-20] MEDS: Colestipol 1 GM TABLET PO ×2 (06:49→18:47)
[2023-02-20 06:51] LABS: Bedside Glucose 116 mg/dL (74-106)
[2023-02-20] MEDS: Glucerna Shake 120 ML LIQUID PO ×3 (09:53→17:07)
[2023-02-20] MEDS: Amiodarone 200 MG Tablet PO (09:54)
[2023-02-20] MEDS: Allopurinol 100 MG Tablet 200 MG PO (09:54)
[2023-02-20] MEDS: Pantoprazole Sodium 40 MG Tablet PO (09:54)
[2023-02-20] MEDS: Multivitamins,Ther W-Minerals Tablet 1 TABLET PO (09:54)
[2023-02-20] MEDS: Glimepiride 2 MG Tablet PO (09:54)
[2023-02-20] MEDS: Folic Acid 1 MG Tablet PO (09:54)
[2023-02-20] MEDS: Arthritis Pain Compound 60 CLICK TUBE TOPICAL ×2 (09:55→21:19)
[2023-02-20 10:00] VITALS: BP 133/57; PULSE 84
[2023-02-20] MEDS: Psyllium 1 PACKET PO (10:01)
[2023-02-20] MEDS: Polyethylene Glycol 3350 17 GM PACKET PO (10:02)
[2023-02-20] MEDS: traMADol 50 MG Tablet PO ×2 (10:07→21:27)
[2023-02-20] MEDS: Miconazole Nitrate 43 GM Bottle 1 APPLIC TOPICAL ×2 (10:08→21:19)
[2023-02-20] MEDS: Menthol/Lanolin/Calamine/Znox 113 GM Tube 1 APPLIC TOPICAL ×2 (10:08→21:19)
--- NOTE | 2023-02-20 12:52 | NURSING ---
Falsework Builder Note, Activity Asset: Shashank Newberry is independent in her choice of daily activities. She has her tablet she will read from and her smartphone she will use for games and talking w/family and friends on. She will watch tv and work on word puzzles, play cards or rest when not visiting w/family.. Coni welcomes visit from the beam dyer operator and therapy dog when available. Staff will remind her of daily activities and respect her right to say no.
[2023-02-20 15:28] VITALS: BP 136/59; PULSE 80; RESP 16; TEMP 36.8; O2SAT 94
--- NOTE | 2023-02-20 16:36 | NURSING ---
Family given update additional staff members have covid.
--- NOTE | 2023-02-20 16:37 | CASEMGMT ---
Social Work SW met with pt and completed psychosocial assessment. SW verified pts contacts. Pt lives at home alone and has been independent prior to fall. Pt does have a sister and nieces and nephews that live near by and are supportive. Pt plans to return home alone at time of discharge. SW educated pt to [facility] insurance with NRD of 02/20 and that continued stay is not guaranteed. SW will continue to follow for discharge planning. AMADEO Appiah
[2023-02-20] MEDS: Tamsulosin HCl 0.4 MG Capsule PO (17:08)
[2023-02-20 18:15] LABS: Hematocrit 29.8 % (37-47); Hemoglobin 9.2 g/dL (12.0-15.0)
[2023-02-20 18:32] LABS: Iron 20 ug/dL (50-170)
[2023-02-20] MEDS: Pioglitazone Hydrochloride 30 MG Tablet PO (21:17)
[2023-02-21] MEDS: Gabapentin 300 MG Capsule PO ×3 (06:04→22:49)
[2023-02-21] MEDS: Levothyroxine 137 MCG Tablet PO (06:05)
[2023-02-21 06:53] LABS: Bedside Glucose 102 mg/dL (74-106)
[2023-02-21] MEDS: Colestipol 1 GM TABLET PO ×2 (07:08→19:12)
[2023-02-21] MEDS: Glucerna Shake 120 ML LIQUID PO ×3 (09:03→18:12)
[2023-02-21] MEDS: Folic Acid 1 MG Tablet PO (10:46)
[2023-02-21] MEDS: Multivitamins,Ther W-Minerals Tablet 1 TABLET PO (10:46)
[2023-02-21] MEDS: Arthritis Pain Compound 60 CLICK TUBE TOPICAL ×2 (10:47→22:49)
[2023-02-21] MEDS: Amiodarone 200 MG Tablet PO (10:47)
[2023-02-21] MEDS: Miconazole Nitrate 43 GM Bottle 1 APPLIC TOPICAL ×2 (10:47→22:50)
[2023-02-21] MEDS: Psyllium 1 PACKET PO (10:47)
[2023-02-21] MEDS: Pantoprazole Sodium 40 MG Tablet PO (10:47)
[2023-02-21] MEDS: Ergocalciferol 1.25 MG (50, 000 UNIT) Capsule PO (10:47)
[2023-02-21] MEDS: Allopurinol 100 MG Tablet 200 MG PO (10:47)
[2023-02-21] MEDS: Menthol/Lanolin/Calamine/Znox 113 GM Tube 1 APPLIC TOPICAL ×2 (10:47→22:49)
[2023-02-21] MEDS: Acetaminophen 500 MG Tablet 1000 MG PO ×2 (10:48→22:49)
[2023-02-21] MEDS: Polyethylene Glycol 3350 17 GM PACKET PO (10:48)
[2023-02-21] MEDS: traMADol 50 MG Tablet PO (10:48)
[2023-02-21] MEDS: Glimepiride 2 MG Tablet PO (10:50)
[2023-02-21 16:00] VITALS: BP 135/48; PULSE 64; RESP 14; TEMP 36.8; O2SAT 95
[2023-02-21] MEDS: Tamsulosin HCl 0.4 MG Capsule PO (18:12)
[2023-02-21] MEDS: Pioglitazone Hydrochloride 30 MG Tablet PO (22:49)
[2023-02-21] MEDS: Senna/Docusate Sodium 1 Tablet 2 TABLET PO (22:49)
[2023-02-22] MEDS: Levothyroxine 137 MCG Tablet PO (05:17)
[2023-02-22] MEDS: Gabapentin 300 MG Capsule PO ×3 (05:17→21:39)
[2023-02-22 06:38] LABS: Bedside Glucose 112 mg/dL (74-106)
[2023-02-22] MEDS: Colestipol 1 GM TABLET PO ×2 (08:01→18:20)
[2023-02-22] MEDS: Multivitamins,Ther W-Minerals Tablet 1 TABLET PO (08:21)
[2023-02-22] MEDS: Allopurinol 100 MG Tablet 200 MG PO (08:21)
[2023-02-22] MEDS: Glucerna Shake 120 ML LIQUID PO ×3 (08:21→18:20)
[2023-02-22] MEDS: Glimepiride 2 MG Tablet PO (08:22)
[2023-02-22] MEDS: Folic Acid 1 MG Tablet PO (08:22)
[2023-02-22] MEDS: Arthritis Pain Compound 60 CLICK TUBE TOPICAL ×2 (10:05→21:40)
[2023-02-22] MEDS: Amiodarone 200 MG Tablet PO (10:06)
[2023-02-22] MEDS: Psyllium 1 PACKET PO (10:06)
[2023-02-22] MEDS: Miconazole Nitrate 43 GM Bottle 1 APPLIC TOPICAL ×2 (10:06→21:43)
[2023-02-22] MEDS: Pantoprazole Sodium 40 MG Tablet PO (10:07)
[2023-02-22] MEDS: Ascorbic Acid 500 MG Tablet PO (10:07)
[2023-02-22] MEDS: Polyethylene Glycol 3350 17 GM PACKET PO (10:07)
[2023-02-22] MEDS: Iron Polysaccharide Complex 150 MG CAPSULE PO (10:07)
[2023-02-22] MEDS: Menthol/Lanolin/Calamine/Znox 113 GM Tube 1 APPLIC TOPICAL ×2 (10:14→21:44)
--- NOTE | 2023-02-22 11:03 | CASEMGMT ---
Social Work IDT met with patient and sister for care plan meeting. Discussed patient's progress in PT/OT/SN. Educated to [facility] insurance with NRD 02/27 and continued stay is not guaranteed. Broached topic pt may be NWB for about 8 weeks and insurance will not cover for the length of time. Encouraged to discuss alternative DC plan. Educated to nonskilled HHC, skilled HHC and SNF with financial liability. SW offered ongoing assistance with DC planning. Will continue to follow. LIZY CroweW
[2023-02-22] MEDS: traMADol 50 MG Tablet PO (12:26)
--- NOTE | 2023-02-22 15:15 | CHAPLAIN ---
Type of Pastoral Visit ___ Initial Visit ___ Follow-up Visit ___ On-call Visit ___ General Patient Visit ___ Spiritual Assessment ___ Family Conference ___ Bereavement ___ Rapid Response ___ Code Blue ___ Other (describe below) Pastoral Care Referral From ___ Patient ___ Family ___ Nurse ___ Physician ___ General Office Worker ___ Dairy Products Maker ___ Other (describe below) Sacrament/Intervention ___ Active listening ___ Anointing ___ Hindu ___ Bereavement ___ Communion ___ Brigida exploration ___ ___ Life review ___ Prayer ___ Reconciliation ___ Sacrament of Sick ___ Supportive presence ___ Wedding ___ Other (describe below) Pastoral Comments follow up visit to check on adaption of patient to TCU; pt staets that today is much better than yesterday with therapy and so she is encouraged now; pt states she is in communication with family but has encouraged them to stay home; pt states that she is fine and not having any needs at this time
--- NOTE | 2023-02-22 15:54 | NURSING ---
Called and spoke with pt's sister and gave update on Covid protocols and status
[2023-02-22 16:00] VITALS: BP 126/53; PULSE 78; RESP 16; O2SAT 92
[2023-02-22] MEDS: Tamsulosin HCl 0.4 MG Capsule PO (17:22)
[2023-02-22 17:58] VITALS: BMI 35.3
[2023-02-22] MEDS: Pioglitazone Hydrochloride 30 MG Tablet PO (21:40)
[2023-02-23] MEDS: Gabapentin 300 MG Capsule PO ×3 (05:51→22:26)
[2023-02-23] MEDS: Levothyroxine 137 MCG Tablet PO (05:51)
[2023-02-23 06:36] LABS: Bedside Glucose 92 mg/dL (74-106)
[2023-02-23] MEDS: Colestipol 1 GM TABLET PO ×2 (06:55→18:13)
[2023-02-23] MEDS: Pantoprazole Sodium 40 MG Tablet PO (08:38)
[2023-02-23] MEDS: Allopurinol 100 MG Tablet 200 MG PO (08:38)
[2023-02-23] MEDS: Folic Acid 1 MG Tablet PO (08:38)
[2023-02-23] MEDS: Ascorbic Acid 500 MG Tablet PO (08:38)
[2023-02-23] MEDS: Iron Polysaccharide Complex 150 MG CAPSULE PO (08:38)
[2023-02-23] MEDS: Psyllium 1 PACKET PO (08:38)
[2023-02-23] MEDS: Multivitamins,Ther W-Minerals Tablet 1 TABLET PO (08:38)
[2023-02-23] MEDS: Glimepiride 2 MG Tablet PO (08:39)
[2023-02-23] MEDS: Amiodarone 200 MG Tablet PO (08:39)
[2023-02-23] MEDS: Miconazole Nitrate 43 GM Bottle 1 APPLIC TOPICAL ×2 (08:39→22:20)
[2023-02-23] MEDS: Arthritis Pain Compound 60 CLICK TUBE TOPICAL ×2 (08:39→22:27)
[2023-02-23] MEDS: Menthol/Lanolin/Calamine/Znox 113 GM Tube 1 APPLIC TOPICAL ×2 (08:39→22:19)
[2023-02-23] MEDS: Acetaminophen 500 MG Tablet 1000 MG PO ×3 (08:45→22:27)
[2023-02-23 09:55] VITALS: O2SAT 96
--- NOTE | 2023-02-23 11:54 | NURSING ---
Sister Claudette, updated about patients new Covid status
[2023-02-23] MEDS: 0.9% Normal Saline (1000mL) 1,000 ML 75 ML IV (12:42)
[2023-02-23 13:12] LABS: Alkaline Phosphatase 139 U/L (45-117)
[2023-02-23] MEDS: Remdesivir 200 MG in 0.9% Normal Saline (250mL Bag) 210 ML 250 MG IV (13:29)
[2023-02-23 16:00] VITALS: BP 130/54; PULSE 81; RESP 16; TEMP 37.1; O2SAT 96
--- NOTE | 2023-02-23 16:24 | PCM.PN.DRR ---
Documented by User: Gil White 02/23/23 19:54 TCU RX Drug Regimen Review Subjective/Objective Subjective/Objective: Subjective: 82 year old female with below past medical history hospitalized for right tibial fracture, treated non-surgically, complicated by fever, source unknown, urinary retention requiring lizarraga catheter, admitted to TCU with debility, here for rehabilitation, strengthening, prior to discharge home alone. Objective: Allergies iodine Allergy (Verified 02/10/23 03:34) Hives simvastatin Allergy (Verified 02/10/23 03:34) Other Lixvemq-JHG-VaH Reductase Inhibitor [Ahrfjwf-Izz-Rac Reductase Inhibitor] Adverse Reaction (Severe, Verified 02/10/23 03:34) mylagias Current Medications Generic Name Dose Route Start Last Admin Trade Name Freq PRN Reason Stop Dose Admin Acetaminophen 1,000 mg 02/17/23 14:04 02/23/23 15:19 Acetaminophen 500 Mg Tablet PO 1,000 mg Q6H PRN Administration Pain Score 1-10 Allopurinol 200 mg 02/18/23 08:00 02/23/23 08:38 Allopurinol 100 Mg Tablet PO 200 mg DAILYCM ARLETTE Administration Amiodarone HCl 200 mg 02/18/23 10:00 02/23/23 08:39 Amiodarone 200 Mg Tablet PO 200 mg DAILY ARLETTE Administration Ascorbic Acid 500 mg 02/22/23 10:00 02/23/23 08:38 Ascorbic Acid 500 Mg Tablet PO 500 mg 1000 ARLETTE Administration Calamine/Phenol 1 applic 02/17/23 22:00 02/23/23 08:39 Menthol/Lanolin/Calamine/Znox 113 Gm Tube TOPICAL 1 applic BID ARLETTE Administration Protocol Colestipol HCl 1 gm 02/17/23 18:00 02/23/23 06:55 Colestipol 1 Gm Tablet PO 1 gm BID@0600,1800 ARLETTE Administration Compound Med 1 click 02/17/23 22:00 02/23/23 08:39 Arthritis Pain Compound 60 Click Tube TOPICAL 1 click BID ARLETTE Administration Ergocalciferol 1.25 mg 02/21/23 08:00 02/21/23 10:47 Ergocalciferol 1.25 Mg (50, 000 Unit) Capsule PO 1.25 mg TU ARLETTE Administration Folic Acid 1 mg 02/18/23 08:00 02/23/23 08:38 Folic Acid 1 Mg Tablet PO 1 mg BREAKFAST ARLETTE Administration Gabapentin 300 mg 02/17/23 22:00 02/23/23 13:28 Gabapentin 300 Mg Capsule PO 300 mg TID ARLETTE Administration Glimepiride 2 mg 02/18/23 08:00 02/23/23 08:39 Glimepiride 2 Mg Tablet PO 2 mg BREAKFAST ARLETTE Administration Glycerin/Hypromellose/Polyethylene 2 drp 02/17/23 14:04 Glycerin/Hypromellose/[id number] 15 Ml Bottle EACH EYE Q1H PRN PRN DRY EYES Sodium Chloride 1,000 mls @ 75 mls/hr 02/23/23 11:50 02/23/23 12:42 IV 75 mls/hr .[id number] ARLETTE Administration Levothyroxine Sodium 137 mcg 02/18/23 06:00 02/23/23 05:51 Levothyroxine 137 Mcg Tablet PO 137 mcg DAILY@0600 [facility] Administration Miconazole Nitrate 1 applic 02/17/23 22:00 02/23/23 08:39 Miconazole Nitrate 43 Gm Bottle TOPICAL 1 applic BID ARLETTE Administration Protocol Multivitamins/Minerals 1 tablet 02/18/23 08:00 02/23/23 08:38 Multivitamins,Ther W-Minerals Tablet PO 1 tablet BREAKFAST [facility] Administration Nutritional Formula (Lactose Free) 120 ml 02/17/23 17:45 02/23/23 13:29 Glucerna Shake 120 Ml Liquid PO Not Given TIDCM [facility] Pantoprazole Sodium 40 mg 02/18/23 10:00 02/23/23 08:38 Pantoprazole Sodium 40 Mg Tablet PO 40 mg DAILY ARLETTE Administration Pioglitazone HCl 30 mg 02/17/23 22:00 02/22/23 21:40 Pioglitazone Hydrochloride 30 Mg Tablet PO 30 mg QHS [facility] Administration Polyethylene Glycol 17 gm 02/18/23 10:00 02/23/23 08:38 Polyethylene Glycol 3350 17 Gm Packet PO Not Given DAILY ARLETTE Polysaccharide Iron Complex 150 mg 02/22/23 10:00 02/23/23 08:38 Iron Polysaccharide Complex 150 Mg Capsule PO 150 mg DAILY [facility] Administration Psyllium Hydrophilic Mucilloid 1 packet 02/18/23 10:00 02/23/23 08:38 Psyllium 1 Packet PO 1 packet DAILY [facility] Administration Senna/Docusate Sodium 2 tablet 02/17/23 14:04 02/21/23 22:49 Senna/Docusate Sodium 1 Tablet PO 2 tablet BID PRN PRN Administration Constipation Sodium Chloride 10 - 40 ml 02/17/23 13:37 02/19/23 06:16 0.9% Saline Lock 10 Ml Syringe IV 10 ml UD PRN Administration SALINE FLUSH Sodium Chloride 2 spray 02/17/23 14:04 Sodium Chloride 0.65% 1 [place].Btl NASAL Q4H PRN PRN NASAL DRYNESS Tamsulosin HCl 0.4 mg 02/17/23 17:30 02/22/23 17:22 Tamsulosin Hcl 0.4 Mg Capsule PO 0.4 mg DAILY@1730 ARLETTE Administration Tramadol HCl 50 mg 02/18/23 15:39 02/22/23 12:26 Tramadol 50 Mg Tablet PO 50 mg Q6H PRN PRN Administration Pain Score 6-10 Tuberculin PPD 0.1 ml 02/25/23 10:00 Tuberculin,Purif.Prot.Deriv. 50 Tu/Ml Vial ID 02/25/23 10:01 X1 ONE Problem List (Updated 02/17/23 @ 15:[address] Adin Tsai MD) Chronic diarrhea (Chronic) Iron deficiency anemia (Acute) Diabetic polyneuropathy (Acute) Urinary retention (Acute) Right tibial fracture (Acute) Elevated serum creatinine (Acute) HTN (hypertension) (Chronic) Weakness (Acute) Fever, unknown origin (Acute) Chronic anemia (Chronic) Hypothyroidism (Chronic) Gastroesophageal reflux disease (Chronic) Gout (Chronic) Atrial fibrillation (Chronic) Diabetes mellitus (Chronic) Debility (Acute) Vital Signs Temp Pulse Resp BP Pulse Ox O2 Del Method 98.3 F 78 16 126/53 H 96 Room Air 02/21/23 16:00 02/22/23 16:00 02/22/23 16:00 02/22/23 16:00 02/23/23 09:55 02/22/23 16:00 Oxygen Delivery Method Room Air Weight: 102.058 kg Body Mass Index (BMI) 35.3 Sodium 136 mmol/L (136-145) 02/18/23 08:57 Potassium 4.7 mmol/L (3.5-5.1) 02/18/23 08:57 Chloride 108 mmol/L (98-107) H 02/18/23 08:57 Carbon Dioxide 25.0 mmol/L (21.0-32.0) 02/18/23 08:57 Anion Gap 3 (5-15) L 02/18/23 08:57 BUN 50 mg/dL (7-18) H 02/18/23 08:57 Creatinine 1.36 mg/dL (0.55-1.02) H 02/18/23 08:57 Est GFR (MDRD) Af Amer 48 mL/min (>60) L 02/18/23 08:57 Est GFR (MDRD) Non-Af 40 mL/min (>60) L 02/18/23 08:57 BUN/Creatinine Ratio 36.8 RATIO (10-20) H 02/18/23 08:57 Glucose 221 mg/dL (74-106) H 02/18/23 08:57 Assessment/Plan: 1. Pain: acetaminophen 1000 mg PO Q6H PRN pain (1-10), tramadol 50 mg PO Q6H PRN pain (1-10), arthritis creat 1 click topically BID. Please continue to monitor for sedation/ataxia (tramadol Beer's criteria), for respiratory depression, LFTs (AST/ALT = 35/24 U/L on 02/15/23), renal function (serum creatinine = 1.36 mg/dL with estimated creatinine clearance ~31 on 02/18/23). The patients pain scores prior to receiving acetaminophen range 2-7/10, and after-administration scores range 1-4. The patients pain scores prior to administration of tramadol range 4-8, with after-administration pain scores ranging 2-4. It appears the patient's pain is adequately controlled. 2. Bowel: polyethylene glycol 17 grams PO daily, senna/docusate 2 tablets PO BID PRN constipation, psyllium 1 packet PO daily, colestipol 1 gram PO BID. The patient has used 1 dose (2 tabs) of senna/docusate so far this admission, The patients last bowel movement was yesterday, 02/22/23. Please continue to monitor for PRN usage, diarrhea, and constipation. 3. Gout: allopurinol 200 mg PO daily with a meal. Please continue to monitor for s/s of gout flares, renal function (serum creatinine = 1.36 mg/dL with estimated creatinine clearance ~31 on 02/18/23), uric acid level (no recent uric acid level documented on chart), for signs of skin reactions (SJS/TENS), and LFTs (AST/ALT = 35/24 U/L on 02/15/23). 4. Atrial fibrillaion: amiodarone 200 mg PO daily. Please continue to monitor HR (recent range 64-84 beats/min), LFTs (AST/ALT = 35/24 U/L on 02/15/23), O2 saturation/respiratory rate (O2 saturation 92-100%, respiratory rate 14-18 breaths/min), blood pressure (recent range 121-146/47-65), and for s/s of hypo/hyper thyroidism, as well as TSH (TSH = 1.82 uIU/mL on 10/13/22). 5. Diabetes Mellitus II: glimepiride 2 mg PO daily with breakfast, pioglitazone 30 mg PO daily at bedtime, dulaglutide 1.5 mg SQ once weekly. Please continue to monitor BG (recent range 92-188), for s/s of hypoglycemia, renal function (serum creatinine = 1.36 mg/dL with estimated creatinine clearance ~31 on 02/18/23), for signs of fluid retention such as shortness of breath especially while supine and lower extremity edema, for GI distress, s/s of pancreatitis including abdominal pain, and hemoglobin A1C (Hgb A1C = 6.5% on 12/03/22). As the patient is well controlled and has a Hgb A1C of 6.5%, recommend stopping glimepiride in a patient of this age d/t concerns for hypoglycemia especially in the setting of slight elevations in Scr. 6. Vitamin D deficiency: ergocalciferol 1.25 mg PO every Monday. Please continue to monitor vitamin D levels (no current vitamin D level on chart). 7. Folate deficiency: folic acid 1 mg PO daily. Please continue to monitor for s/s of folate deficiency including hemoglobin and RBC levels (Hgb = 9.2 mg/dL on 02/20/23, RBC = 2.98 M/mm3 on 02/18/23). 8. Hypothyroidism: levothyroxine 137 mcg PO daily. Please continue to monitor for s/s of hypo/hyperthyroidism as well as TSH (TSH = 1.82 uIU/mL on 10/13/22) and T4 (no current T4 level). 9. Nutrition: glucerna shake 120 mL PO daily, multivitamin 1 tablet PO daily. Please continue to monitor nutritional status. 10. Urinary retention: tamsulosin 0.4 mg PO daily. Please continue to monitor for urinary retention, and blood pressure (recent range 121-146/47-65). 11. Skin irritation/tinea corporis: calmoseptine 1 application topically BID, miconazole nitrtate 1 application topically BID. Please continue to monitor for skin irritation and for resolution of tinea corporis. 12. GERD: pantoprazole 40 mg PO daily. Please continue to monitor GERD symptoms as well as for diarrhea that could be attributed to clostridium difficile (Beer's criteria), and for signs of bone loss/resorptoin such as fractures (Beer's criteria). 13. Dry eyes: artificially tears 2 drops each eye every hour PRN dry eye. Please continue to monitor for dry/irritated eyes. 14. Dry nose: sodium chloride nasal spray 2 sprays in each nostril Q4H PRN dry nose. Please continue to monitor for nasal dryness/irritation. 15. Vitamin C deficiency: ascorbic acid 500 mg PO daily. Please continue to monitor for s/s of vitamin C deficiency, and for renal stones. 16. Iron deficiency: iron polysaccharide 150 mg PO daily. Please continue to monitor for constipation, Hgb level (9.2 g/dL on 02/20/23), and iron level (20 ug/dL on 02/20/23). Assessment/Plan for indications treated with psychotropic medications: 1. Diabetic polyneuropathy: gabapentin 300 mg PO TID. Please continue to monitor for neuropathic pain, lower extremity edema, ataxia/falls (Beer's criteria), and renal function (serum creatinine = 1.36 mg/dL with estimated creatinine clearance ~31 on 02/18/23). Medical chart and medication regimen reviewed. The following medication irregularities or issues were identified: 1. Diabetes Mellitus II: glimepiride 2 mg PO daily with breakfast, pioglitazone 30 mg PO daily at bedtime, dulaglutide 1.5 mg SQ once weekly. Please continue to monitor BG (recent range 92-188), for s/s of hypoglycemia, renal function (serum creatinine = 1.36 mg/dL with estimated creatinine clearance ~31 on 02/18/23), for signs of fluid retention such as shortness of breath especially while supine and lower extremity edema, for GI distress, s/s of pancreatitis including abdominal pain, and hemoglobin A1C (Hgb A1C = 6.5% on 12/03/22). As the patient is well controlled and has a Hgb A1C of 6.5%, recommend stopping glimepiride in a patient of this age d/t concerns for hypoglycemia especially in the setting of slight elevations in Scr. Date Date of Note:: 02/23/23 Documented by User: Dr. Adin Tsai MD 02/23/23 20:06 TCU RX Drug Regimen Review Provider Comments Provider responsibility Provider Comments to Recommendations by Pharmacy: Agree
[2023-02-23] MEDS: Glucerna Shake 120 ML LIQUID PO (17:22)
[2023-02-23] MEDS: Tamsulosin HCl 0.4 MG Capsule PO (17:22)
[2023-02-23 20:00] VITALS: TEMP 36.9
[2023-02-23 21:00] VITALS: PULSE 68; RESP 18; O2SAT 96
[2023-02-23] MEDS: Pioglitazone Hydrochloride 30 MG Tablet PO (22:19)
[2023-02-24] MEDS: traMADol 50 MG Tablet PO ×2 (02:08→12:17)
[2023-02-24] MEDS: 0.9% Normal Saline (1000mL) 1,000 ML 75 ML IV ×2 (02:08→15:36)
[2023-02-24 05:48] LABS: Hematocrit 25.5 % (37-47); Mean Corp Hgb Conc 31.4 g/dL (32-36); Mean Corpuscular Hgb 28.1 pg (27.0-32.0); Mean Corpuscular Volume 89.5 fL (81-99); Mean Platelet Vol. 8.5 fl (6.2-12.0); Platelet Count 322 K/mm3 (150-450); RBC Distribution Width CV 14.6 % (11.6-14.6); RBC Distribution Width SD 47.7 fl (35.1-43.9); Red Blood Count 2.85 M/mm3 (4.2-5.4); White Blood Count 5.1 K/mm3 (4.4-11.0)
[2023-02-24] MEDS: Gabapentin 300 MG Capsule PO ×3 (06:20→20:59)
[2023-02-24] MEDS: Levothyroxine 137 MCG Tablet PO (06:20)
[2023-02-24 06:30] VITALS: PULSE 74; RESP 16; O2SAT 98
[2023-02-24 06:40] LABS: ALB/GLOB Ratio 0.6 RATIO (0.9-2.4); AST(SGOT) 21 U/L (15-37); Alanine Aminotransfer ALT/SGPT 25 U/L (13-56); Alkaline Phosphatase 121 U/L (45-117); Anion Gap 4 (5-15); BUN 38 mg/dL (7-18); BUN/Creat Ratio 31.9 RATIO (10-20); Calcium,Total 7.9 mg/dL (8.5-10.1); Chloride 104 mmol/L (98-107); Creatinine, Serum 1.19 mg/dL (0.55-1.02); EST Glomerular Filtration Rate 46 mL/min (>60); Est Glom Filt Rate - Afr Amer 56 mL/min (>60); Estimated Creatinine Clearance 35.44 ml/min; Globulin 3.1 g/dL (2.2-4.2); Glucose 79 mg/dL (74-106); Potassium 4.3 mmol/L (3.5-5.1); Protein, Total 5.1 g/dL (6.4-8.2); Sodium Level 135 mmol/L (136-145)
[2023-02-24] MEDS: Colestipol 1 GM TABLET PO ×2 (06:57→18:09)
[2023-02-24 08:15] LABS: Bedside Glucose 72 mg/dL (74-106)
[2023-02-24] MEDS: Glucerna Shake 120 ML LIQUID PO ×3 (08:54→17:18)
[2023-02-24] MEDS: Folic Acid 1 MG Tablet PO (08:54)
[2023-02-24] MEDS: Allopurinol 100 MG Tablet 200 MG PO (08:54)
[2023-02-24] MEDS: Amiodarone 200 MG Tablet PO (08:54)
[2023-02-24] MEDS: Ascorbic Acid 500 MG Tablet PO (08:54)
[2023-02-24] MEDS: Multivitamins,Ther W-Minerals Tablet 1 TABLET PO (08:54)
[2023-02-24] MEDS: Pantoprazole Sodium 40 MG Tablet PO (08:55)
[2023-02-24] MEDS: Menthol/Lanolin/Calamine/Znox 113 GM Tube 1 APPLIC TOPICAL ×2 (08:55→21:07)
[2023-02-24] MEDS: Glimepiride 2 MG Tablet PO (08:55)
[2023-02-24] MEDS: Iron Polysaccharide Complex 150 MG CAPSULE PO (08:55)
[2023-02-24] MEDS: Miconazole Nitrate 43 GM Bottle 1 APPLIC TOPICAL ×2 (08:59→21:06)
[2023-02-24] MEDS: Arthritis Pain Compound 60 CLICK TUBE TOPICAL ×2 (09:00→21:07)
--- NOTE | 2023-02-24 09:50 | NURSING ---
Teaching Specialists Note; MDS Complete
--- NOTE | 2023-02-24 13:15 | CASEMGMT ---
Social Work BIMS () and PHQ-9 (09/29) completed for MDS assessment. Emily Gilliam MSW MIDDLE SCHOOL TECHNOLOGY TEACHER
[2023-02-24 16:00] VITALS: BP 122/68; PULSE 79; RESP 16; TEMP 36.6; O2SAT 95
[2023-02-24] MEDS: Tamsulosin HCl 0.4 MG Capsule PO (17:18)
[2023-02-24] MEDS: Pioglitazone Hydrochloride 30 MG Tablet PO (20:57)
[2023-02-25] MEDS: traMADol 50 MG Tablet PO ×2 (00:22→22:34)
[2023-02-25] MEDS: Levothyroxine 137 MCG Tablet PO (05:15)
[2023-02-25] MEDS: 0.9% Normal Saline (1000mL) 1,000 ML 75 ML IV ×2 (05:15→18:14)
[2023-02-25] MEDS: Gabapentin 300 MG Capsule PO ×3 (05:15→22:23)
[2023-02-25] MEDS: Colestipol 1 GM TABLET PO ×2 (06:34→18:16)
[2023-02-25 06:56] LABS: Bedside Glucose 68 mg/dL (74-106)
[2023-02-25 09:13] LABS: Absolute Lymphocyte Count 0.95 X10^3/uL (0.83-4.51); Absolute Neutrophil Count 3.1 X10^3/uL (2.0-7.7); Basophil# 0.04 X10^3/uL; Basophil% 0.8 % (0-1); Eosinophil# 0.19 X10^3/uL; Eosinophils% 3.9 % (0-5); Hematocrit 26.9 % (37-47); Hemoglobin 8.3 g/dL (12.0-15.0); Lymphocyte # 0.95 X10^3/ul (0.83-4.51); Lymphocyte % 19.7 % (19-41); Mean Corp Hgb Conc 30.9 g/dL (32-36); Mean Corpuscular Volume 90.9 fL (81-99); Mean Platelet Vol. 8.7 fl (6.2-12.0); Monocyte# 0.42 X10^3/uL; Monocyte% 8.7 % (0-10); NRBC Flagged by Analyzer 0 % (0-5); Neutrophil # 3.12 X10^3/uL (2.7-7.7); Neutrophil % 64.8 % (47-70); Platelet Count 337 K/mm3 (150-450); RBC Distribution Width CV 14.7 % (11.6-14.6); RBC Distribution Width SD 49.4 fl (35.1-43.9); Red Blood Count 2.96 M/mm3 (4.2-5.4); White Blood Count 4.8 K/mm3 (4.4-11.0)
[2023-02-25] MEDS: Pantoprazole Sodium 40 MG Tablet PO (09:15)
[2023-02-25] MEDS: Multivitamins,Ther W-Minerals Tablet 1 TABLET PO (09:15)
[2023-02-25] MEDS: Iron Polysaccharide Complex 150 MG CAPSULE PO (09:15)
[2023-02-25] MEDS: Menthol/Lanolin/Calamine/Znox 113 GM Tube 1 APPLIC TOPICAL ×2 (09:15→22:22)
[2023-02-25] MEDS: Glimepiride 2 MG Tablet PO (09:15)
[2023-02-25] MEDS: Allopurinol 100 MG Tablet 200 MG PO (09:15)
[2023-02-25] MEDS: Ascorbic Acid 500 MG Tablet PO (09:15)
[2023-02-25] MEDS: Amiodarone 200 MG Tablet PO (09:15)
[2023-02-25] MEDS: Folic Acid 1 MG Tablet PO (09:15)
[2023-02-25] MEDS: Tuberculin,Purif.prot.deriv. 50 TU/ML Vial 0.1 ML ID (09:18)
[2023-02-25] MEDS: Glucerna Shake 120 ML LIQUID PO ×3 (09:19→18:12)
[2023-02-25] MEDS: Miconazole Nitrate 43 GM Bottle 1 APPLIC TOPICAL ×2 (09:23→22:22)
[2023-02-25] MEDS: Arthritis Pain Compound 60 CLICK TUBE TOPICAL ×2 (09:24→22:22)
[2023-02-25 09:26] LABS: Anion Gap 5 (5-15); BUN 40 mg/dL (7-18); BUN/Creat Ratio 33.9 RATIO (10-20); Calcium,Total 7.7 mg/dL (8.5-10.1); Chloride 108 mmol/L (98-107); Creatinine, Serum 1.18 mg/dL (0.55-1.02); EST Glomerular Filtration Rate 47 mL/min (>60); Est Glom Filt Rate - Afr Amer 56 mL/min (>60); Estimated Creatinine Clearance 35.74 ml/min; Glucose 160 mg/dL (74-106); Potassium 4.1 mmol/L (3.5-5.1); Sodium Level 138 mmol/L (136-145)
[2023-02-25 10:00] VITALS: RESP 20
[2023-02-25 11:20] VITALS: BP 117/59; PULSE 83; RESP 18; TEMP 36.4; O2SAT 93
[2023-02-25] MEDS: Tamsulosin HCl 0.4 MG Capsule PO (18:15)
[2023-02-25] MEDS: Acetaminophen 500 MG Tablet 1000 MG PO (18:20)
[2023-02-25] MEDS: Sodium Chloride 0.65% 1 SPRAY SPRAY.BTL 2 SPRAY NASAL (18:22)
[2023-02-25] MEDS: Pioglitazone Hydrochloride 30 MG Tablet PO (22:22)
--- NOTE | 2023-02-26 03:27 | NURSING ---
Pt continues to have dysuria. Bladder canned for 1377 cc. 16 Fr lizarraga placed per policy. 1650 cc out within 10 minutes of placement of lizarraga. Pt reports feeling relief from pressure in bladder; tolerated well.
[2023-02-26] MEDS: Levothyroxine 137 MCG Tablet PO (05:59)
[2023-02-26] MEDS: Gabapentin 300 MG Capsule PO ×3 (06:01→21:04)
[2023-02-26] MEDS: 0.9% Normal Saline (1000mL) 1,000 ML 75 ML IV ×2 (06:01→19:43)
[2023-02-26] MEDS: Colestipol 1 GM TABLET PO ×2 (06:47→17:10)
[2023-02-26 06:50] LABS: Bedside Glucose 95 mg/dL (74-106)
[2023-02-26 08:02] VITALS: O2SAT 96
[2023-02-26] MEDS: Folic Acid 1 MG Tablet PO (09:29)
[2023-02-26] MEDS: Amiodarone 200 MG Tablet PO (09:29)
[2023-02-26] MEDS: Multivitamins,Ther W-Minerals Tablet 1 TABLET PO (09:29)
[2023-02-26] MEDS: Allopurinol 100 MG Tablet 200 MG PO (09:29)
[2023-02-26] MEDS: Iron Polysaccharide Complex 150 MG CAPSULE PO (09:30)
[2023-02-26] MEDS: Pantoprazole Sodium 40 MG Tablet PO (09:30)
[2023-02-26] MEDS: Ascorbic Acid 500 MG Tablet PO (09:31)
[2023-02-26] MEDS: Glimepiride 2 MG Tablet PO (09:32)
[2023-02-26] MEDS: Glucerna Shake 120 ML LIQUID PO ×3 (09:41→17:11)
[2023-02-26] MEDS: traMADol 50 MG Tablet PO ×2 (09:42→21:03)
[2023-02-26] MEDS: DULAGLUTIDE 1.5 MG/0.5 ML PEN.INJCTR SC (09:42)
[2023-02-26] MEDS: Arthritis Pain Compound 60 CLICK TUBE TOPICAL ×2 (09:46→21:15)
[2023-02-26] MEDS: Miconazole Nitrate 43 GM Bottle 1 APPLIC TOPICAL ×2 (09:51→21:15)
[2023-02-26] MEDS: Menthol/Lanolin/Calamine/Znox 113 GM Tube 1 APPLIC TOPICAL ×2 (09:51→21:15)
[2023-02-26 15:24] VITALS: BP 107/82; PULSE 76; RESP 18; TEMP 36.8; O2SAT 95
[2023-02-26] MEDS: Tamsulosin HCl 0.4 MG Capsule PO (17:10)
[2023-02-26] MEDS: Pioglitazone Hydrochloride 30 MG Tablet PO (21:02)
[2023-02-27] MEDS: Levothyroxine 137 MCG Tablet PO (05:23)
[2023-02-27] MEDS: Gabapentin 300 MG Capsule PO ×3 (05:23→23:00)
[2023-02-27 06:07] LABS: Hematocrit 26.4 % (37-47); Hemoglobin 8.1 g/dL (12.0-15.0)
[2023-02-27] MEDS: Colestipol 1 GM TABLET PO ×2 (06:13→18:21)
[2023-02-27 06:26] LABS: Bedside Glucose 88 mg/dL (74-106)
[2023-02-27] MEDS: Glucerna Shake 120 ML LIQUID PO ×3 (09:03→18:00)
[2023-02-27] MEDS: Multivitamins,Ther W-Minerals Tablet 1 TABLET PO (09:04)
[2023-02-27] MEDS: Folic Acid 1 MG Tablet PO (09:04)
[2023-02-27] MEDS: Glimepiride 2 MG Tablet PO (09:04)
[2023-02-27] MEDS: Allopurinol 100 MG Tablet 200 MG PO (09:04)
[2023-02-27] MEDS: 0.9% Normal Saline (1000mL) 1,000 ML 75 ML IV (09:16)
[2023-02-27] MEDS: Arthritis Pain Compound 60 CLICK TUBE TOPICAL ×2 (09:23→23:05)
[2023-02-27] MEDS: Menthol/Lanolin/Calamine/Znox 113 GM Tube 1 APPLIC TOPICAL ×2 (09:23→23:05)
[2023-02-27] MEDS: Amiodarone 200 MG Tablet PO (09:23)
[2023-02-27] MEDS: Iron Polysaccharide Complex 150 MG CAPSULE PO (09:27)
[2023-02-27] MEDS: Miconazole Nitrate 43 GM Bottle 1 APPLIC TOPICAL ×2 (09:27→23:06)
[2023-02-27] MEDS: Pantoprazole Sodium 40 MG Tablet PO (09:28)
[2023-02-27] MEDS: Ascorbic Acid 500 MG Tablet PO (09:29)
[2023-02-27] MEDS: Tamsulosin HCl 0.4 MG Capsule PO (18:01)
[2023-02-27] MEDS: Pioglitazone Hydrochloride 30 MG Tablet PO (23:00)
[2023-02-27] MEDS: Acetaminophen 500 MG Tablet 1000 MG PO (23:00)
[2023-02-27 23:15] VITALS: O2SAT 97
[2023-02-27] MEDS: LORazepam 0.5 MG Tablet 0.25 MG PO (23:45)
[2023-02-27] MEDS: Hydrocortisone 25 MG Suppository RC (23:46)
[2023-02-27] MEDS: Sodium Chloride 0.65% 1 SPRAY SPRAY.BTL 2 SPRAY NASAL (23:55)
[2023-02-28] MEDS: Gabapentin 300 MG Capsule PO ×3 (05:42→21:28)
[2023-02-28] MEDS: Levothyroxine 137 MCG Tablet PO (05:42)
[2023-02-28 05:49] LABS: Hematocrit 27.8 % (37-47); Hemoglobin 8.5 g/dL (12.0-15.0)
[2023-02-28] MEDS: Colestipol 1 GM TABLET PO ×2 (06:47→17:22)
[2023-02-28 06:53] LABS: Bedside Glucose 93 mg/dL (74-106)
[2023-02-28] MEDS: Allopurinol 100 MG Tablet 200 MG PO (09:11)
[2023-02-28] MEDS: Multivitamins,Ther W-Minerals Tablet 1 TABLET PO (09:12)
[2023-02-28] MEDS: Iron Polysaccharide Complex 150 MG CAPSULE PO (09:12)
[2023-02-28] MEDS: Ergocalciferol 1.25 MG (50, 000 UNIT) Capsule PO (09:12)
[2023-02-28] MEDS: LORazepam 0.5 MG Tablet 0.25 MG PO ×2 (09:12→21:33)
[2023-02-28] MEDS: Pantoprazole Sodium 40 MG Tablet PO (09:12)
[2023-02-28] MEDS: Ascorbic Acid 500 MG Tablet PO (09:12)
[2023-02-28] MEDS: Glimepiride 2 MG Tablet PO (09:12)
[2023-02-28] MEDS: Amiodarone 200 MG Tablet PO (09:12)
[2023-02-28] MEDS: Folic Acid 1 MG Tablet PO (09:12)
[2023-02-28] MEDS: Glucerna Shake 120 ML LIQUID PO ×3 (09:14→17:22)
[2023-02-28] MEDS: Menthol/Lanolin/Calamine/Znox 113 GM Tube 1 APPLIC TOPICAL ×2 (09:30→21:39)
[2023-02-28] MEDS: Miconazole Nitrate 43 GM Bottle 1 APPLIC TOPICAL ×2 (09:30→21:39)
[2023-02-28] MEDS: Arthritis Pain Compound 60 CLICK TUBE TOPICAL ×2 (09:30→21:39)
[2023-02-28 12:17] VITALS: BMI 35.3
[2023-02-28 13:14] VITALS: BP 137/60; PULSE 82; RESP 16; TEMP 36.7; O2SAT 97
--- NOTE | 2023-02-28 14:43 | CASEMGMT ---
Addendum entered by Emily Gilliam 03/01/23 12:54: SW phoned pt to follow up on choices. Pt requests referral to [facility] and [facility]. Answered further ROSELINE questions for pt. SNF referrals made via [facility]. Original Note: Social Work SW spoke with pt to discuss DC plans as insurance update is 03/03, anticipating [facility]. Pt agrees she is not able to DC home, although would like continued therapy and nursing care in TCU. SW discussed alternative option of DC to another SNF. Pt agrees that is the only option. Pt concerned about finances. SW educated to Medicaid and offered to make referral to determine eligibility. Pt agreed and appreciative. Pt became tearful and asked, Emily, am I going to make it?. SW empathized with current difficulties. Attempted to comfort patient explaining there may be some hard months ahead, but IDT is hopeful pt will return to baseline and can live at home. Pt appreciative. SW provided emotional support and validated feelings. Pt was ready to revisit DC options, agreeable to SNF. SW provided SNF list with quality and resource data via [email or web address] to review and share with sister. Pt to notify this worker with choices. Email referral sent to [facility]. Will continue to follow. Emily Gilliam, INTERNATIONAL RECRUITER DEPUTY COMMISSIONER
--- NOTE | 2023-02-28 14:52 | MDS.RN ---
Information for the mds was obtained from review of the clinical record, interview of resident, staff, and direct observation of resident's care.
--- NOTE | 2023-02-28 17:04 | RAD_ITS ---
STUDY: X-RAY - ABDOMEN/PELVIS REASON FOR EXAM: Female, 82 years old. Diarrhea. TECHNIQUE: Frontal views COMPARISON: None. FINDINGS: Normal visualized lung bases. There is an unremarkable bowel gas pattern. Mild colonic fecal retention. There is no demonstrated free abdominal air. The visualized liver, spleen and kidneys are grossly normal in size and morphology. Normal soft tissue structures. Scoliosis. Junk changes of the hips with joint space narrowing, right more than left. RAD/Abdomen Single View IMPRESSION: No sign of bowel obstruction. Fecal retention. Electronically Signed: Mio Gutierrez DO at 18:16 EDT Reading Location ID and State: [facility] / [place] Tel [phone], Service support ,
[2023-02-28] MEDS: Tamsulosin HCl 0.4 MG Capsule PO (17:22)
[2023-02-28] MEDS: Pioglitazone Hydrochloride 30 MG Tablet PO (21:25)
[2023-02-28] MEDS: Acetaminophen 500 MG Tablet 1000 MG PO (21:34)
[2023-03-01] MEDS: Gabapentin 300 MG Capsule PO ×3 (05:05→20:47)
[2023-03-01] MEDS: Levothyroxine 137 MCG Tablet PO (05:05)
[2023-03-01 06:13] LABS: Bedside Glucose 82 mg/dL (74-106)
[2023-03-01] MEDS: Colestipol 1 GM TABLET PO ×2 (06:24→16:53)
[2023-03-01] MEDS: Glucerna Shake 120 ML LIQUID PO ×3 (08:20→16:53)
[2023-03-01] MEDS: Pantoprazole Sodium 40 MG Tablet PO (08:20)
[2023-03-01] MEDS: Glimepiride 2 MG Tablet PO (08:20)
[2023-03-01] MEDS: Ascorbic Acid 500 MG Tablet PO (08:21)
[2023-03-01] MEDS: Folic Acid 1 MG Tablet PO (08:21)
[2023-03-01] MEDS: Multivitamins,Ther W-Minerals Tablet 1 TABLET PO (08:21)
[2023-03-01] MEDS: Menthol/Lanolin/Calamine/Znox 113 GM Tube 1 APPLIC TOPICAL ×2 (08:21→20:46)
[2023-03-01] MEDS: Arthritis Pain Compound 60 CLICK TUBE TOPICAL ×2 (08:21→20:46)
[2023-03-01] MEDS: Allopurinol 100 MG Tablet 200 MG PO (08:21)
[2023-03-01] MEDS: Amiodarone 200 MG Tablet PO (08:22)
[2023-03-01] MEDS: Miconazole Nitrate 43 GM Bottle 1 APPLIC TOPICAL ×2 (08:22→20:53)
[2023-03-01] MEDS: Iron Polysaccharide Complex 150 MG CAPSULE PO (08:22)
--- NOTE | 2023-03-01 09:23 | NURSING ---
R' REMAINS IN SPECIAL DROPLET PRECAUTIONS D/T COVID. ALL CARE PROVIDED IN ROOM THIS SHIFT.
[2023-03-01] MEDS: 0.9% Saline Lock 10 ML Syringe IV (13:05)
[2023-03-01 15:28] VITALS: BP 140/60; PULSE 84; RESP 16; TEMP 37.1; O2SAT 93
[2023-03-01] MEDS: Acetaminophen 500 MG Tablet 1000 MG PO (16:24)
[2023-03-01] MEDS: Tamsulosin HCl 0.4 MG Capsule PO (16:52)
[2023-03-01] MEDS: Pioglitazone Hydrochloride 30 MG Tablet PO (20:46)
[2023-03-01] MEDS: traMADol 50 MG Tablet PO (20:46)
[2023-03-01] MEDS: LORazepam 0.5 MG Tablet 0.25 MG PO (20:47)
[2023-03-02] MEDS: Levothyroxine 137 MCG Tablet PO (05:43)
[2023-03-02] MEDS: Gabapentin 300 MG Capsule PO ×3 (05:47→21:32)
[2023-03-02 05:52] LABS: Hematocrit 26.6 % (37-47); Hemoglobin 8.3 g/dL (12.0-15.0)
[2023-03-02] MEDS: traMADol 50 MG Tablet PO ×2 (06:20→21:32)
[2023-03-02] MEDS: Colestipol 1 GM TABLET PO ×2 (06:20→18:01)
[2023-03-02 06:22] LABS: Bedside Glucose 70 mg/dL (74-106)
[2023-03-02] MEDS: Allopurinol 100 MG Tablet 200 MG PO (08:58)
[2023-03-02] MEDS: Glimepiride 2 MG Tablet PO (08:58)
[2023-03-02] MEDS: Multivitamins,Ther W-Minerals Tablet 1 TABLET PO (08:58)
[2023-03-02] MEDS: Folic Acid 1 MG Tablet PO (08:58)
[2023-03-02] MEDS: Arthritis Pain Compound 60 CLICK TUBE TOPICAL ×2 (08:58→21:35)
[2023-03-02] MEDS: Amiodarone 200 MG Tablet PO (08:59)
[2023-03-02] MEDS: Pantoprazole Sodium 40 MG Tablet PO (08:59)
[2023-03-02] MEDS: Miconazole Nitrate 43 GM Bottle 1 APPLIC TOPICAL ×2 (08:59→21:35)
[2023-03-02] MEDS: Ascorbic Acid 500 MG Tablet PO (08:59)
[2023-03-02] MEDS: Menthol/Lanolin/Calamine/Znox 113 GM Tube 1 APPLIC TOPICAL ×2 (08:59→21:33)
[2023-03-02] MEDS: Iron Polysaccharide Complex 150 MG CAPSULE PO (08:59)
[2023-03-02] MEDS: Glucerna Shake 120 ML LIQUID PO ×3 (09:25→18:01)
[2023-03-02] MEDS: 0.9% Saline Lock 10 ML Syringe IV (14:08)
[2023-03-02 14:43] VITALS: BP 116/53; PULSE 77; RESP 16; TEMP 36.8; O2SAT 94
[2023-03-02] MEDS: Tamsulosin HCl 0.4 MG Capsule PO (18:01)
[2023-03-02] MEDS: LORazepam 0.5 MG Tablet 0.25 MG PO (21:32)
[2023-03-02] MEDS: Pioglitazone Hydrochloride 30 MG Tablet PO (21:33)
[2023-03-03] MEDS: Levothyroxine 137 MCG Tablet PO (05:18)
[2023-03-03] MEDS: Gabapentin 300 MG Capsule PO ×3 (05:19→22:18)
[2023-03-03] MEDS: Colestipol 1 GM TABLET PO ×2 (05:56→18:27)
[2023-03-03] MEDS: traMADol 50 MG Tablet PO (05:57)
[2023-03-03 06:52] LABS: Bedside Glucose 84 mg/dL (74-106)
[2023-03-03] MEDS: Glucerna Shake 120 ML LIQUID PO ×3 (10:53→17:07)
[2023-03-03] MEDS: Allopurinol 100 MG Tablet 200 MG PO (10:53)
[2023-03-03] MEDS: Glimepiride 2 MG Tablet PO (10:54)
[2023-03-03] MEDS: Pantoprazole Sodium 40 MG Tablet PO (10:54)
[2023-03-03] MEDS: Folic Acid 1 MG Tablet PO (10:54)
[2023-03-03] MEDS: Multivitamins,Ther W-Minerals Tablet 1 TABLET PO (10:54)
[2023-03-03] MEDS: Ascorbic Acid 500 MG Tablet PO (10:54)
[2023-03-03 10:55] VITALS: BP 140/59; PULSE 88
[2023-03-03] MEDS: Iron Polysaccharide Complex 150 MG CAPSULE PO (10:55)
[2023-03-03] MEDS: Amiodarone 200 MG Tablet PO (11:00)
[2023-03-03] MEDS: Acetaminophen 500 MG Tablet 1000 MG PO ×2 (11:03→22:27)
[2023-03-03] MEDS: Arthritis Pain Compound 60 CLICK TUBE TOPICAL ×2 (11:05→22:20)
[2023-03-03] MEDS: Menthol/Lanolin/Calamine/Znox 113 GM Tube 1 APPLIC TOPICAL ×2 (11:05→22:37)
[2023-03-03] MEDS: Miconazole Nitrate 43 GM Bottle 1 APPLIC TOPICAL ×2 (11:05→22:20)
[2023-03-03] MEDS: Flu Vacc QS2023-24(65YR UP)/PF 240 MCG/0.7 ML Syringe IM (14:33)
[2023-03-03 16:00] VITALS: BP 132/46; PULSE 81; RESP 18; TEMP 37.9; O2SAT 94
--- NOTE | 2023-03-03 16:38 | CASEMGMT ---
Social Work Insurance issued LCD 03/05, DC 03/06. SW spoke with pt to update. Confirmed DC to [facility] as [facility] does not have any beds. Pt agreed. SW updated WVM. Scheduled cot transport through [facility] for 1100. PASRR completed. IDT updated. Plan: DC 03/06, W, intermediate, part B therapies Emily Gilliam, CLEARANCE REPRESENTATIVE TECHNOLOGIST DEVELOPMENT
--- NOTE | 2023-03-03 16:40 | DS.PCM_ITS ---
Providers Date of Admission: 02/17/23 Primary Care Physician: Dr. Stefan Gordon MD Consultations 02/28/23 04:14 Consult: Onc/Wound/polymerization supervisor Routine Comment: Reason for Consult:: Pressure wound to coccyx Comments:: Wound bed pink/red and w/ yellow marbling Reason For Visit: FALL/ RIGHT KNEE FRACTURE Diagnosis Discharge Diagnosis (1) Debility: Status: Acute Code(s): R53.81 - Other malaise (2) Right tibial fracture: Status: Acute Code(s): S82.201A - Unspecified fracture of shaft of right tibia, initial encounter for closed fracture Qualifiers: Encounter type: initial encounter Tibia location: proximal Fracture type: closed (3) Elevated serum creatinine: Status: Resolved Code(s): R79.89 - Other specified abnormal findings of blood chemistry (4) Urinary retention: Status: Acute Code(s): R33.9 - Retention of urine, unspecified (5) Fever, unknown origin: Status: Resolved Code(s): R50.9 - Fever, unspecified (6) HTN (hypertension): Status: Chronic Code(s): I10 - Essential (primary) hypertension (7) Weakness: Status: Acute Code(s): R53.1 - Weakness (8) Chronic anemia: Status: Chronic Code(s): D64.9 - Anemia, unspecified (9) Gout: Status: Chronic Code(s): M10.9 - Gout, unspecified (10) Gastroesophageal reflux disease: Status: Chronic Code(s): K21.9 - Gastro-esophageal reflux disease without esophagitis (11) Diabetes mellitus: Status: Chronic Code(s): E11.9 - Type 2 diabetes mellitus without complications (12) Atrial fibrillation: Status: Chronic Code(s): I48.91 - Unspecified atrial fibrillation (13) Hypothyroidism: Status: Chronic Code(s): E03.9 - Hypothyroidism, unspecified (14) Diabetic polyneuropathy: Status: Acute Code(s): E11.42 - Type 2 diabetes mellitus 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 polyneuropathy (15) Iron deficiency anemia: Status: Acute Code(s): D50.9 - Iron deficiency anemia, unspecified (16) Chronic diarrhea: Status: Chronic Code(s): K52.9 - Noninfective gastroenteritis and colitis, unspecified Plan 82 year old female with below past medical history hospitalized for right tibial fracture, treated non-surgically, complicated by fever, source unknown, urinary retention requiring lizarraga catheter, admitted to TCU with debility, here for rehabilitation, strengthening, prior to discharge home alone. * Debility - PT/OT. * Pain - Tylenol 1000mg q6h prn pain (1-10), Arthritis pain 1 click topical bid. * Bowel - Miralax 17gm daily, Metamucil 1 melon packer daily, senna/colace 2 tablets bid prn, Colestipol 1gm bid. * Adult immunization - Administer pneumonia vaccine, covid19 vaccine, flu vaccine as appropriate. * DVT prophylaxis - Hold, anemia. * Gout - Allopurinol 200mg daily. * Atrial Fibrillation - Amiodarone 200mg daily, no anticoagulation due to falls. * Vitamin B12 deficiency - B12 1000mcg im qmonth. * Diabetes Mellitus II - Glimepiride 2mg breakfast, Pioglitazone 30mg daily, Trulicity 1.5mg per week. * Vitamin D deficiency - D2 50,000 units per week. * Folate deficiency - Folic acid 1mg daily. * Diabetic polyneuropathy - Gabapentin 300mg tid. * Nutrition - Glucerna shake 120ml tidcm, MVI daily. * Hypothyroidism - Levothyroxine 137mcg daily. * Skin irritation - Calmoseptine topical bid. * Tinea Corporis - Nystatin powder topical bid. * GERD - Pantoprazole 40mg daily. * Dry eyes - Artificial tears 2gtt q1h prn. * Dry nose - Sodium chloride 2 sprays q4h prn. * Urinary retention - Tamsulosin 0.4mg daily, indwelling lizarraga catheter, voiding trial 02/20/2023. Medications at Discharge Home Medications allopurinol 100 mg tablet 200 mg PO DAILYCM gout 07/04/13 pioglitazone 15 mg tablet 30 mg PO QHS diabetes 03/29/19 cholecalciferol (vitamin D3) 1,250 mcg (50,000 unit) capsule 50,000 unit PO TU bones 05/07/19 dulaglutide 1.5 mg/0.5 mL subcutaneous pen injector 1.5 mg SQ PONCE diabetes 07/24/20 acetaminophen 500 mg tablet 1,000 mg (2 x 500 mg) PO Q6H PRN Pain Score 1-10 08/26/20 levothyroxine 137 mcg tablet 137 mcg PO DAILY thyroid 10/22/20 psyllium husk 0.52 gram capsule (Fiber (psyllium husk)) 1.04 g PO DAILY fiber 12/11/20 gabapentin 300 mg capsule 300 mg PO TID neuropathy 03/02/22 Colestid 1 gm PO/SL BID cholesterol 03/09/22 amiodarone 200 mg PO/SL DAILY Afib 03/09/22 folic acid 1 mg PO/SL DAILY supplement 03/09/22 glimepiride 2 mg PO/SL DAILY blood sugar 03/09/22 multivitamin with iron 1 tablet PO/SL DAILY supplement 03/09/22 sodium chloride 0.65 % nasal spray aerosol (Deep Sea Nasal) 2 spray NASAL Q4H PRN PRN NASAL DRYNESS #0 mL 02/17/23 tamsulosin 0.4 mg capsule 0.4 mg PO DAILY@1730 prostate #0 caps 02/17/23 ascorbic acid (vitamin C) 500 mg tablet 500 mg PO 1000 #0 tabs 03/03/23 lorazepam 0.5 mg tablet 0.25 mg (1/2 x 0.5 mg) PO Q6H PRN PRN Anxiety 3 days #12 tabs 03/03/23 menthol 0.44 %-zinc oxide 20.6 % topical ointment (Calmoseptine) 1 applic topical BID #0 grams 03/03/23 miconazole nitrate 2 % topical powder (Desenex) 1 applic topical BID #0 grams 03/03/23 nutrition tx glu intol,lac-free,soy-fiber 0.06 gram-1.2 kcal/mL liquid (Glucerna 1.2 Keanu) 120 ml PO TIDCM #0 mL 03/03/23 pantoprazole 40 mg tablet,delayed release 40 mg PO DAILY #0 tabs 03/03/23 polysaccharide iron complex 150 mg iron capsule (Ferrex) 150 mg PO DAILY #0 caps 03/03/23 tramadol 50 mg tablet 50 mg PO Q6H PRN PRN Pain Score 6-10 3 days #12 tabs 03/03/23 Hospital Course Operations None Procedures None Summary of Care Provided Minutes Spent on Discharge: 35 Hospital Course: 82 year old female with below past medical history hospitalized for right tibial fracture, treated non-surgically, complicated by fever, source unknown, urinary retention requiring lizarraga catheter, admitted to TCU with debility, here for rehabilitation, strengthening, prior to discharge home alone. Discharge to [facility] 03/06/2023, intermediate, part B therapies. Physical Exam Const alert General Appearance: cooperative HEENT normocephalic Eyes PERRL and EOMs intact bilaterally Neck supple, no JVD and no carotid bruits Resp normal respiratory effort, normal air movement and clear to auscultation bilaterally Cardio regular rate and regular rhythm GI normal to inspection, nondistended, normoactive bowel sounds, non-tender and non-distended Extremity normal capillary refill General Extremity: Negative for edema Skin no rashes or lesions noted General Skin Exam: no breakdown Psych affect normal Appearance: appropriate Weight / BMI Weight Weight: 102.115 kg Body Mass Index (BMI) 35.3 ABG / Lab / Microbiology Data 03/02/23 05:37 02/25/23 09:05 Laboratory: Laboratory Results - last 24 hr 03/03/23 06:32: POC Glucose 84 Microbiology: Microbiology 02/23/23 08:56 Nasal Secretion SARS-CoV-2 Antigen (Rapid) - Final SARS-CoV-2 (COVID 19) 02/22/23 05:20 Nasal Secretion SARS-CoV-2 Antigen (Rapid) - Final 02/19/23 06:20 Nasal Secretion SARS-CoV-2 Antigen (Rapid) - Final 02/17/23 17:15 Nasal Secretion SARS-CoV-2 Antigen (Rapid) - Final D/C Instructions Discharge Diet: No restrictions Discharge Activity: Return to Normal Activity, May Shower and Use Walker Weight Bearing Status: Weight bearing as tolerated Call your doctor if you observe: Fever of 101 or Higher, Inability to urinate, Inability to have a bowel movement, Shortness of breath, Dizziness, Fainting spells, Swelling in the ankles, Chest pain and Uncontrolled pain Additional Instructions: Discharge to [facility] 03/06/2023, intermediate, part B therapies. Meaningful Use Info Meaningful Use Diagnoses (Choose all that apply): None applicable Discharge Plan Admission Admit Date/Time: 02/17/23 13:00 Primary Reason for Your Visit: Debility. Attending Provider: Adin Tsai Chi Primary Care Provider: Stefan Gordon Instructions Additional Instructions / Restrictions: Discharge to [facility] 03/06/2023, intermediate, part B therapies. Discharge Orders/Prescriptions Prescriptions: New polysaccharide iron complex [Ferrex 150] 150 mg iron Capsule 150 mg PO DAILY Qty: 0 0RF miconazole nitrate [Desenex] 2 % Powder 1 applic topical BID Qty: 0 0RF Protocol: *Topical Application Instructions APPLICATION INSTRUCTIONS: UNDER ABD FOLDS/GROIN tramadol 50 mg Tablet 50 mg PO Q6H PRN PRN (Reason: Pain Score 6-10) 3 Days Qty: 12 0RF lorazepam 0.5 mg Tablet 0.25 mg PO Q6H PRN PRN (Reason: Anxiety) 3 Days Qty: 12 0RF ascorbic acid (vitamin C) 500 mg Tablet 500 mg PO 1000 Qty: 0 0RF pantoprazole 40 mg Tablet,Delayed Release (Dr/Ec) 40 mg PO DAILY Qty: 0 0RF Glucerna 1.2 Keanu 0.06-1.2 gram-kcal/mL Liquid 120 ml PO TIDCM Qty: 0 0RF menthol-zinc oxide [Calmoseptine] 0.44-20.6 % Ointment 1 applic topical BID Qty: 0 0RF Protocol: *Topical Application Instructions APPLICATION INSTRUCTIONS: EL BUTTOCKS/COCCYX Continued pioglitazone 15 mg tablet 30 mg PO QHS cholecalciferol (vitamin D3) 50,000 unit capsule 50,000 unit PO TU psyllium husk [Fiber (psyllium husk)] 0.52 gram capsule 1.04 g PO DAILY allopurinol 100 MG tablet 200 mg PO DAILYCM gabapentin 300 mg capsule 300 mg PO TID dulaglutide 1.5 MG/0.5 ML pen injector 1.5 mg SQ PONCE acetaminophen 500 MG tablet 1,000 mg PO Q6H PRN (Reason: Pain Score 1-10) 0RF levothyroxine 137 mcg tablet 137 mcg PO DAILY Colestid 1 gram tablet 1 gm PO/SL BID amiodarone 200 mg tablet 200 mg PO/SL DAILY folic acid 1 mg tablet 1 mg PO/SL DAILY glimepiride 2 mg tablet 2 mg PO/SL DAILY multivitamin with iron capsule 1 tablet PO/SL DAILY tamsulosin 0.4 mg Capsule 0.4 mg PO DAILY@1730 Qty: 0 0RF Deep Sea Nasal 0.65 % Aerosol,Luckey 2 spray NASAL Q4H PRN PRN (Reason: NASAL DRYNESS) Qty: 0 0RF Discontinued cyanocobalamin (vitamin B-12) 1,000 mcg/mL solution 1,000 mcg IM QMONTH carvedilol 25 mg tablet 25 mg PO BID Hold Instructions: Until instructed otherwise amlodipine 2.5 mg tablet 2.5 mg PO DAILY Hold Instructions: Until instructed otherwise lansoprazole 30 MG capsule 30 mg PO DAILY tramadol 50 mg tablet 25 mg PO BID PRN PRN (Reason: pain) Hold Instructions: Until otherwise instructed Patient Comments: take 1/2 to 1 tablet by mouth up to twice a day NEEDED FOR PAIN polyethylene glycol 3350 17 gram Powder In Packet 17 g PO DAILY Qty: 0 0RF tramadol 50 mg Tablet 50 mg PO Q6H PRN PRN (Reason: pain 3-10) Qty: 4 0RF sennosides-docusate sodium [Stool Softener-Stimulant Laxat] 8.6-50 mg Tablet 2 tab PO BID PRN PRN (Reason: Constipation) Qty: 0 0RF Artificial Tears(mi-nanq-pcoh) 1-0.2-0.2 % Drops 2 drp EACH EYE Q1H PRN PRN (Reason: DRY EYES) Qty: 0 0RF Arthritis Pain Compound bottle 1 click topical BID Rx Instructions: 1 click BID Referrals / Follow Up: Stefan Gordon MD [Primary Care Provider] - Disposition Disposition (needs filled in before D/C Order can be placed): NonSkilled NH/Intermed Care
--- NOTE | 2023-03-03 16:46 | TREXTCAR_ITS ---
Diet Diet Order/Speech Therapy: 02/18/23 14:26 Diet: Cardiac: Calorie-Controlled Dietary Modifications:: Cardiac / Heart Healthy Sodium Restricted Is pt able to select menu?: Yes How many daily calories?: 1800 calorie Routine Orders/Code Status Code Status: DNRCC-A (No intubation.) Wound(s) RIGHT BUTTOCK: Wound Type: Pressure Injury Dressing Change: josue rosie cleft: Wound Type: Pressure Injury Dressing Change: Josue Right Heel: Blister: Wound Type: Intact Blister Dressing Change: Mepilex Therapies Weight Bearing: Weight bearing as tolerated Extremity Affected:: Bilateral Lower Physical Therapy: Eval and Treat Occupational Therapy: Eval and Treat Problem/Diagnosis (1) Debility: Status: Acute Code(s): R53.81 - Other malaise (2) Right tibial fracture: Status: Acute Code(s): S82.201A - Unspecified fracture of shaft of right tibia, initial encounter for closed fracture (3) Elevated serum creatinine: Status: Resolved Code(s): R79.89 - Other specified abnormal findings of blood chemistry (4) Urinary retention: Status: Acute Code(s): R33.9 - Retention of urine, unspecified (5) Fever, unknown origin: Status: Resolved Code(s): R50.9 - Fever, unspecified (6) HTN (hypertension): Status: Chronic Code(s): I10 - Essential (primary) hypertension (7) Weakness: Status: Acute Code(s): R53.1 - Weakness (8) Chronic anemia: Status: Chronic Code(s): D64.9 - Anemia, unspecified (9) Gout: Status: Chronic Code(s): M10.9 - Gout, unspecified (10) Gastroesophageal reflux disease: Status: Chronic Code(s): K21.9 - Gastro-esophageal reflux disease without esophagitis (11) Diabetes mellitus: Status: Chronic Code(s): E11.9 - Type 2 diabetes mellitus without complications (12) Atrial fibrillation: Status: Chronic Code(s): I48.91 - Unspecified atrial fibrillation (13) Hypothyroidism: Status: Chronic Code(s): E03.9 - Hypothyroidism, unspecified (14) Diabetic polyneuropathy: Status: Acute Code(s): E11.42 - Type 2 diabetes mellitus 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 polyneuropathy (15) Iron deficiency anemia: Status: Acute Code(s): D50.9 - Iron deficiency anemia, unspecified (16) Chronic diarrhea: Status: Chronic Code(s): K52.9 - Noninfective gastroenteritis and colitis, unspecified Plan 82 year old female with below past medical history hospitalized for right tibial fracture, treated non-surgically, complicated by fever, source unknown, urinary retention requiring lizarraga catheter, admitted to TCU with debility, here for rehabilitation, strengthening, prior to discharge home alone. * Debility - PT/OT. * Pain - Tylenol 1000mg q6h prn pain (1-10), Arthritis pain 1 click topical bid. * Bowel - Miralax 17gm daily, Metamucil 1 bb shot packer daily, senna/colace 2 tablets bid prn, Colestipol 1gm bid. * Adult immunization - Administer pneumonia vaccine, covid19 vaccine, flu vaccine as appropriate. * DVT prophylaxis - Hold, anemia. * Gout - Allopurinol 200mg daily. * Atrial Fibrillation - Amiodarone 200mg daily, no anticoagulation due to falls. * Vitamin B12 deficiency - B12 1000mcg im qmonth. * Diabetes Mellitus II - Glimepiride 2mg breakfast, Pioglitazone 30mg daily, Trulicity 1.5mg per week. * Vitamin D deficiency - D2 50,000 units per week. * Folate deficiency - Folic acid 1mg daily. * Diabetic polyneuropathy - Gabapentin 300mg tid. * Nutrition - Glucerna shake 120ml tidcm, MVI daily. * Hypothyroidism - Levothyroxine 137mcg daily. * Skin irritation - Calmoseptine topical bid. * Tinea Corporis - Nystatin powder topical bid. * GERD - Pantoprazole 40mg daily. * Dry eyes - Artificial tears 2gtt q1h prn. * Dry nose - Sodium chloride 2 sprays q4h prn. * Urinary retention - Tamsulosin 0.4mg daily, indwelling lizarraga catheter, voiding trial 02/20/2023. Allergies/Procedures Done in Hospital Allergies iodine Allergy (Verified 02/10/23 03:34) Hives simvastatin Allergy (Verified 02/10/23 03:34) Other Eyfjoox-XNT-UfO Reductase Inhibitor [Dxebkuf-Kgu-Pyj Reductase Inhibitor] Adverse Reaction (Severe, Verified 02/10/23 03:34) mylagias Procedures: None Type of Care/Length of Stay Estimated LOS: More Than 30 Days Type of Care Needed: Intermediate Rehab Potential: Good Prognosis: Good Additional Orders/Day of Discharge Additional Orders: part B therapies Day of Discharge: 03/06/23 Dietary and Speech Recommendations Dietitian Recommendations/Changes: Continue 1800 vilma, Cardiac - Sodium r estricted d/t pmhx Continue ONS w/ medpass per res preference Discharge Plan Admission Admit Date/Time: 02/17/23 13:00 Primary Reason for Your Visit: Debility. Attending Provider: Adin Tsai Chi Primary Care Provider: Stefan Gordon Instructions Additional Instructions / Restrictions: Discharge to [facility] 03/06/2023, intermediate, part B therapies. Discharge Orders/Prescriptions Prescriptions: New polysaccharide iron complex [Ferrex 150] 150 mg iron Capsule 150 mg PO DAILY Qty: 0 0RF miconazole nitrate [Desenex] 2 % Powder 1 applic topical BID Qty: 0 0RF Protocol: *Topical Application Instructions APPLICATION INSTRUCTIONS: UNDER ABD FOLDS/GROIN tramadol 50 mg Tablet 50 mg PO Q6H PRN PRN (Reason: Pain Score 6-10) 3 Days Qty: 12 0RF lorazepam 0.5 mg Tablet 0.25 mg PO Q6H PRN PRN (Reason: Anxiety) 3 Days Qty: 12 0RF ascorbic acid (vitamin C) 500 mg Tablet 500 mg PO 1000 Qty: 0 0RF pantoprazole 40 mg Tablet,Delayed Release (Dr/Ec) 40 mg PO DAILY Qty: 0 0RF Glucerna 1.2 Vilma 0.06-1.2 gram-kcal/mL Liquid 120 ml PO TIDCM Qty: 0 0RF menthol-zinc oxide [Calmoseptine] 0.44-20.6 % Ointment 1 applic topical BID Qty: 0 0RF Protocol: *Topical Application Instructions APPLICATION INSTRUCTIONS: EL BUTTOCKS/COCCYX Continued pioglitazone 15 mg tablet 30 mg PO QHS cholecalciferol (vitamin D3) 50,000 unit capsule 50,000 unit PO TU psyllium husk [Fiber (psyllium husk)] 0.52 gram capsule 1.04 g PO DAILY allopurinol 100 MG tablet 200 mg PO DAILYCM gabapentin 300 mg capsule 300 mg PO TID dulaglutide 1.5 MG/0.5 ML pen injector 1.5 mg SQ PONCE acetaminophen 500 MG tablet 1,000 mg PO Q6H PRN (Reason: Pain Score 1-10) 0RF levothyroxine 137 mcg tablet 137 mcg PO DAILY Colestid 1 gram tablet 1 gm PO/SL BID amiodarone 200 mg tablet 200 mg PO/SL DAILY folic acid 1 mg tablet 1 mg PO/SL DAILY glimepiride 2 mg tablet 2 mg PO/SL DAILY multivitamin with iron capsule 1 tablet PO/SL DAILY tamsulosin 0.4 mg Capsule 0.4 mg PO DAILY@1730 Qty: 0 0RF Deep Sea Nasal 0.65 % Aerosol,Preston 2 spray NASAL Q4H PRN PRN (Reason: NASAL DRYNESS) Qty: 0 0RF Discontinued cyanocobalamin (vitamin B-12) 1,000 mcg/mL solution 1,000 mcg IM QMONTH carvedilol 25 mg tablet 25 mg PO BID Hold Instructions: Until instructed otherwise amlodipine 2.5 mg tablet 2.5 mg PO DAILY Hold Instructions: Until instructed otherwise lansoprazole 30 MG capsule 30 mg PO DAILY tramadol 50 mg tablet 25 mg PO BID PRN PRN (Reason: pain) Hold Instructions: Until otherwise instructed Patient Comments: take 1/2 to 1 tablet by mouth up to twice a day NEEDED FOR PAIN polyethylene glycol 3350 17 gram Powder In Packet 17 g PO DAILY Qty: 0 0RF tramadol 50 mg Tablet 50 mg PO Q6H PRN PRN (Reason: pain 3-10) Qty: 4 0RF sennosides-docusate sodium [Stool Softener-Stimulant Laxat] 8.6-50 mg Tablet 2 tab PO BID PRN PRN (Reason: Constipation) Qty: 0 0RF Artificial Tears([id number]) 1-0.2-0.2 % Drops 2 drp EACH EYE Q1H PRN PRN (Reason: DRY EYES) Qty: 0 0RF Arthritis Pain Compound bottle 1 click topical BID Rx Instructions: 1 click BID Referrals / Follow Up: Stefan Gordon MD [Primary Care Provider] - Disposition Disposition (needs filled in before D/C Order can be placed): NonSkilled NH/Intermed Care (2) Right tibial fracture Qualifiers: Encounter type: initial encounter Tibia location: proximal Fracture type: closed
[2023-03-03] MEDS: Tamsulosin HCl 0.4 MG Capsule PO (17:07)
[2023-03-03 17:13] VITALS: TEMP 37.3
[2023-03-03 22:00] VITALS: PULSE 88; RESP 14; O2SAT 94
[2023-03-03] MEDS: Pioglitazone Hydrochloride 30 MG Tablet PO (22:16)
[2023-03-03] MEDS: LORazepam 0.5 MG Tablet 0.25 MG PO (22:24)
[2023-03-04] MEDS: Gabapentin 300 MG Capsule PO ×3 (05:06→22:21)
[2023-03-04] MEDS: Levothyroxine 137 MCG Tablet PO (05:07)
[2023-03-04] MEDS: Colestipol 1 GM TABLET PO ×2 (06:20→16:42)
[2023-03-04 06:35] LABS: Bedside Glucose 74 mg/dL (74-106)
[2023-03-04 09:03] LABS: Absolute Lymphocyte Count 1.18 X10^3/uL (0.83-4.51); Absolute Neutrophil Count 5.1 X10^3/uL (2.0-7.7); Basophil# 0.03 X10^3/uL; Basophil% 0.4 % (0-1); Eosinophil# 0.16 X10^3/uL; Eosinophils% 2.2 % (0-5); Hematocrit 28.1 % (37-47); Hemoglobin 8.7 g/dL (12.0-15.0); Lymphocyte # 1.18 X10^3/ul (0.83-4.51); Lymphocyte % 16.5 % (19-41); Mean Corpuscular Volume 90.4 fL (81-99); Mean Platelet Vol. 9.3 fl (6.2-12.0); Monocyte# 0.65 X10^3/uL; Monocyte% 9.1 % (0-10); NRBC Flagged by Analyzer 0 % (0-5); Neutrophil % 71.2 % (47-70); Platelet Count 296 K/mm3 (150-450); RBC Distribution Width CV 15.1 % (11.6-14.6); RBC Distribution Width SD 49.7 fl (35.1-43.9); Red Blood Count 3.11 M/mm3 (4.2-5.4); White Blood Count 7.2 K/mm3 (4.4-11.0)
[2023-03-04 09:46] LABS: Anion Gap 5 (5-15); BUN 33 mg/dL (7-18); BUN/Creat Ratio 29.7 RATIO (10-20); Calcium,Total 8.6 mg/dL (8.5-10.1); Chloride 102 mmol/L (98-107); Creatinine, Serum 1.11 mg/dL (0.55-1.02); EST Glomerular Filtration Rate 50 mL/min (>60); Est Glom Filt Rate - Afr Amer 61 mL/min (>60); Glucose 87 mg/dL (74-106); Potassium 3.9 mmol/L (3.5-5.1); Sodium Level 136 mmol/L (136-145)
[2023-03-04 10:00] VITALS: BP 130/84; PULSE 88; RESP 16; TEMP 36.9; O2SAT 93
[2023-03-04] MEDS: Multivitamins,Ther W-Minerals Tablet 1 TABLET PO (10:01)
[2023-03-04] MEDS: Glimepiride 2 MG Tablet PO (10:01)
[2023-03-04] MEDS: Allopurinol 100 MG Tablet 200 MG PO (10:01)
[2023-03-04] MEDS: Folic Acid 1 MG Tablet PO (10:01)
[2023-03-04] MEDS: Acetaminophen 500 MG Tablet 1000 MG PO ×2 (10:02→22:22)
[2023-03-04] MEDS: Ascorbic Acid 500 MG Tablet PO (10:02)
[2023-03-04] MEDS: Iron Polysaccharide Complex 150 MG CAPSULE PO (10:02)
[2023-03-04] MEDS: Amiodarone 200 MG Tablet PO (10:02)
[2023-03-04] MEDS: Psyllium 1 PACKET PO (10:02)
[2023-03-04] MEDS: Pantoprazole Sodium 40 MG Tablet PO (10:02)
[2023-03-04] MEDS: LORazepam 0.5 MG Tablet 0.25 MG PO ×2 (10:03→22:21)
[2023-03-04] MEDS: Miconazole Nitrate 43 GM Bottle 1 APPLIC TOPICAL ×2 (10:07→22:24)
[2023-03-04] MEDS: Arthritis Pain Compound 60 CLICK TUBE TOPICAL ×2 (10:07→22:23)
[2023-03-04] MEDS: Menthol/Lanolin/Calamine/Znox 113 GM Tube 1 APPLIC TOPICAL ×2 (10:07→22:23)
[2023-03-04] MEDS: Glucerna Shake 120 ML LIQUID PO ×3 (10:08→16:42)
[2023-03-04] MEDS: Tamsulosin HCl 0.4 MG Capsule PO (17:38)
[2023-03-04] MEDS: Pioglitazone Hydrochloride 30 MG Tablet PO (22:22)
[2023-03-05] MEDS: Gabapentin 300 MG Capsule PO ×3 (05:51→22:50)
[2023-03-05] MEDS: Levothyroxine 137 MCG Tablet PO (05:51)
[2023-03-05] MEDS: LORazepam 0.5 MG Tablet 0.25 MG PO ×2 (05:56→22:52)
[2023-03-05 07:33] LABS: Bedside Glucose 111 mg/dL (74-106)
[2023-03-05] MEDS: Colestipol 1 GM TABLET PO ×2 (07:38→17:56)
[2023-03-05 10:45] VITALS: BP 132/62; PULSE 94; RESP 17; TEMP 36.8; O2SAT 92
[2023-03-05] MEDS: Glucerna Shake 120 ML LIQUID PO ×3 (10:47→18:27)
[2023-03-05] MEDS: Folic Acid 1 MG Tablet PO (10:47)
[2023-03-05] MEDS: Glimepiride 2 MG Tablet PO (10:47)
[2023-03-05] MEDS: Ascorbic Acid 500 MG Tablet PO (10:48)
[2023-03-05] MEDS: Psyllium 1 PACKET PO (10:48)
[2023-03-05] MEDS: Allopurinol 100 MG Tablet 200 MG PO (10:48)
[2023-03-05] MEDS: Pantoprazole Sodium 40 MG Tablet PO (10:48)
[2023-03-05] MEDS: Amiodarone 200 MG Tablet PO (10:48)
[2023-03-05] MEDS: Multivitamins,Ther W-Minerals Tablet 1 TABLET PO (10:48)
[2023-03-05] MEDS: Iron Polysaccharide Complex 150 MG CAPSULE PO (10:48)
[2023-03-05] MEDS: DULAGLUTIDE 1.5 MG/0.5 ML PEN.INJCTR SC (10:48)
[2023-03-05] MEDS: Arthritis Pain Compound 60 CLICK TUBE TOPICAL ×2 (10:53→22:55)
[2023-03-05] MEDS: Miconazole Nitrate 43 GM Bottle 1 APPLIC TOPICAL ×2 (10:53→22:54)
[2023-03-05] MEDS: Menthol/Lanolin/Calamine/Znox 113 GM Tube 1 APPLIC TOPICAL ×2 (10:54→22:55)
[2023-03-05] MEDS: traMADol 50 MG Tablet PO (13:24)
[2023-03-05] MEDS: Tamsulosin HCl 0.4 MG Capsule PO (18:27)
[2023-03-05] MEDS: Pioglitazone Hydrochloride 30 MG Tablet PO (22:51)
[2023-03-05] MEDS: Acetaminophen 500 MG Tablet 1000 MG PO (22:51)
[2023-03-06] MEDS: Levothyroxine 137 MCG Tablet PO (05:56)
[2023-03-06] MEDS: Gabapentin 300 MG Capsule PO (05:56)
[2023-03-06 06:41] LABS: Bedside Glucose 72 mg/dL (74-106)
[2023-03-06] MEDS: Colestipol 1 GM TABLET PO (07:03)
[2023-03-06] MEDS: Glucerna Shake 120 ML LIQUID PO (08:40)
[2023-03-06] MEDS: Multivitamins,Ther W-Minerals Tablet 1 TABLET PO (08:41)
[2023-03-06] MEDS: Folic Acid 1 MG Tablet PO (08:41)
[2023-03-06] MEDS: Iron Polysaccharide Complex 150 MG CAPSULE PO (08:41)
[2023-03-06] MEDS: Pantoprazole Sodium 40 MG Tablet PO (08:41)
[2023-03-06] MEDS: Psyllium 1 PACKET PO (08:42)
[2023-03-06] MEDS: Allopurinol 100 MG Tablet 200 MG PO (08:42)
[2023-03-06] MEDS: Glimepiride 1 MG Tablet PO (08:42)
[2023-03-06] MEDS: Amiodarone 200 MG Tablet PO (08:42)
[2023-03-06] MEDS: Ascorbic Acid 500 MG Tablet PO (08:42)
[2023-03-06] MEDS: Miconazole Nitrate 43 GM Bottle 1 APPLIC TOPICAL (08:43)
[2023-03-06] MEDS: Menthol/Lanolin/Calamine/Znox 113 GM Tube 1 APPLIC TOPICAL (08:43)
[2023-03-06] MEDS: Arthritis Pain Compound 60 CLICK TUBE TOPICAL (08:43)
[2023-03-06 09:02] VITALS: PULSE 78; RESP 16; O2SAT 94
[2023-03-06] MEDS: LORazepam 0.5 MG Tablet 0.25 MG PO (10:31)
[2023-03-06] MEDS: Acetaminophen 500 MG Tablet 1000 MG PO (10:32)
[2023-03-06 11:10] VITALS: BP 120/63; PULSE 87; RESP 14; TEMP 36.7
--- NOTE | 2023-03-06 11:24 | NURSING ---
Report given to Dariela at [facility]. Transport is here to p/u patient.
== END 2023-03-06 11:27 | DRG 561 ==
PROVIDERS: Admitting Provider Family Medicine Geriatric Medicine; PCP Family Medicine; Referring Provider Family Medicine Geriatric Medicine; Visit Provider Family Medicine Geriatric Medicine
DX: S82.201D Unspecified fracture of shaft of right tibia, subsequent encounter for closed fracture with routine healing (principal); E11.22 Type 2 diabetes mellitus 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 chronic kidney disease; E03.9 Hypothyroidism, unspecified; D50.9 Iron deficiency anemia, unspecified; B35.4 Tinea corporis; E11.42 Type 2 diabetes mellitus 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 polyneuropathy; I48.0 Paroxysmal atrial fibrillation; N18.9 Chronic kidney disease, unspecified; I12.9 Hypertensive chronic kidney disease with stage 1 through stage 4 chronic kidney disease, or unspecified chronic kidney disease; E55.9 Vitamin D deficiency, unspecified; K52.9 Noninfective gastroenteritis and colitis, unspecified; K21.9 Gastro-esophageal reflux disease without esophagitis; E53.8 Deficiency of other specified B group vitamins; E78.5 Hyperlipidemia, unspecified; M10.9 Gout, unspecified; W19.XXXD Unspecified fall, subsequent encounter; R33.9 Retention of urine, unspecified; Z79.84 Long term (current) use of oral hypoglycemic drugs; Z79.899 Other long term (current) drug therapy
CPT/HCPCS: 36415; 74018; 80048; 80053; 82962; 83540; 84075; 85014; 85018; 85025; 85027; 87426; 87811; 97110; 97162; 97165; 97530; 97535; 97802; J7030; J7050; 90662; A4216; J0248

== ENCOUNTER → 2023-03-07 | Outpatient (REF) | payer MEDICARE, SELFPAY ==
[2023-03-07 09:14] LABS: Absolute Lymphocyte Count 0.99 X10^3/uL (0.83-4.51); Absolute Neutrophil Count 4.2 X10^3/uL (2.0-7.7); Basophil# 0.03 X10^3/uL; Basophil% 0.5 % (0-1); Eosinophil# 0.23 X10^3/uL; Eosinophils% 3.8 % (0-5); Hematocrit 27.8 % (37-47); Hemoglobin 8.6 g/dL (12.0-15.0); Lymphocyte # 0.99 X10^3/ul (0.83-4.51); Lymphocyte % 16.6 % (19-41); Mean Corp Hgb Conc 30.9 g/dL (32-36); Mean Corpuscular Hgb 27.8 pg (27.0-32.0); Mean Platelet Vol. 9.6 fl (6.2-12.0); Monocyte# 0.53 X10^3/uL; Monocyte% 8.9 % (0-10); NRBC Flagged by Analyzer 0 % (0-5); Neutrophil # 4.17 X10^3/uL (2.7-7.7); Neutrophil % 69.7 % (47-70); Platelet Count 326 K/mm3 (150-450); RBC Distribution Width CV 14.9 % (11.6-14.6); RBC Distribution Width SD 48.8 fl (35.1-43.9); Red Blood Count 3.09 M/mm3 (4.2-5.4)
[2023-03-07 09:40] LABS: ALB/GLOB Ratio 0.6 RATIO (0.9-2.4); AST(SGOT) 20 U/L (15-37); Alanine Aminotransfer ALT/SGPT 22 U/L (13-56); Albumin, Serum 2.4 g/dL (3.2-5.0); Alkaline Phosphatase 122 U/L (45-117); Anion Gap 5 (5-15); BUN 33 mg/dL (7-18); BUN/Creat Ratio 29.5 RATIO (10-20); Calcium,Total 8.7 mg/dL (8.5-10.1); Chloride 101 mmol/L (98-107); Cholesterol 104 mg/dL (200); Creatinine, Serum 1.12 mg/dL (0.55-1.02); EST Glomerular Filtration Rate 50 mL/min (>60); Est Glom Filt Rate - Afr Amer 60 mL/min (>60); Globulin 3.8 g/dL (2.2-4.2); Glucose 103 mg/dL (74-106); High Density Lipoprotein 31 mg/dL; Potassium 4.3 mmol/L (3.5-5.1); Protein, Total 6.2 g/dL (6.4-8.2); Sodium Level 136 mmol/L (136-145); Thyroid Stim Hormone (TSH) 1.96 uIU/mL (0.358-3.74); Triglycerides 81 mg/dL; Very Low Density Lipoprotein 16 mg/dL (5-40)
== END ==
LOC: OLS.WHLEAS 05:00
PROVIDERS: PCP Family Medicine; Visit Provider Internal Medicine
DX: E78.5 Hyperlipidemia, unspecified (principal); E11.22 Type 2 diabetes mellitus 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 chronic kidney disease; N18.9 Chronic kidney disease, unspecified; I48.0 Paroxysmal atrial fibrillation
CPT/HCPCS: 36415; 80053; 80061; 84443; 85025

== ENCOUNTER → 2023-03-22 | Outpatient (REF) | payer MEDICARE, SELFPAY ==
[2023-03-22 08:03] LABS: Absolute Lymphocyte Count 1.53 X10^3/uL (0.83-4.51); Absolute Neutrophil Count 4.9 X10^3/uL (2.0-7.7); Basophil# 0.06 X10^3/uL; Basophil% 0.8 % (0-1); Eosinophil# 0.39 X10^3/uL; Eosinophils% 5.2 % (0-5); Hematocrit 27.7 % (37-47); Hemoglobin 8.6 g/dL (12.0-15.0); Lymphocyte # 1.53 X10^3/ul (0.83-4.51); Lymphocyte % 20.4 % (19-41); Mean Corpuscular Hgb 27.2 pg (27.0-32.0); Mean Corpuscular Volume 87.7 fL (81-99); Mean Platelet Vol. 9.6 fl (6.2-12.0); Monocyte# 0.57 X10^3/uL; Monocyte% 7.6 % (0-10); NRBC Flagged by Analyzer 0 % (0-5); Neutrophil # 4.87 X10^3/uL (2.7-7.7); Neutrophil % 64.9 % (47-70); Platelet Count 300 K/mm3 (150-450); RBC Distribution Width CV 15.9 % (11.6-14.6); RBC Distribution Width SD 51.2 fl (35.1-43.9); Red Blood Count 3.16 M/mm3 (4.2-5.4); White Blood Count 7.5 K/mm3 (4.4-11.0)
[2023-03-22 08:15] LABS: AST(SGOT) 9 U/L (15-37); Alanine Aminotransfer ALT/SGPT 15 U/L (13-56); Albumin, Serum 2.7 g/dL (3.2-5.0); Alkaline Phosphatase 114 U/L (45-117); Anion Gap 6 (5-15); BUN 36 mg/dL (7-18); BUN/Creat Ratio 26.9 RATIO (10-20); Bilirubin, Direct 0.12 mg/dL (0.00-0.30); Calcium,Total 8.8 mg/dL (8.5-10.1); Chloride 102 mmol/L (98-107); Cholesterol 116 mg/dL (200); Creatinine, Serum 1.34 mg/dL (0.55-1.02); EST Glomerular Filtration Rate 40 mL/min (>60); Est Glom Filt Rate - Afr Amer 49 mL/min (>60); Globulin 3.6 g/dL (2.2-4.2); Glucose 119 mg/dL (74-106); High Density Lipoprotein 36 mg/dL; Potassium 4.2 mmol/L (3.5-5.1); Protein, Total 6.3 g/dL (6.4-8.2); Sodium Level 137 mmol/L (136-145); Thyroid Stim Hormone (TSH) 1.16 uIU/mL (0.358-3.74); Triglycerides 108 mg/dL; Very Low Density Lipoprotein 22 mg/dL (5-40)
== END ==
LOC: OLS.WHLEAS 05:00
PROVIDERS: PCP Family Medicine; Visit Provider Internal Medicine
DX: N18.9 Chronic kidney disease, unspecified (principal); E11.22 Type 2 diabetes mellitus 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 chronic kidney disease; I48.0 Paroxysmal atrial fibrillation
CPT/HCPCS: 36415; 80048; 80061; 80076; 84443; 85025

== ENCOUNTER → 2023-04-05 | Outpatient (REF) | payer MEDICARE, SELFPAY ==
[2023-04-05 08:54] LABS: Absolute Lymphocyte Count 1.47 X10^3/uL (0.83-4.51); Absolute Neutrophil Count 3.8 X10^3/uL (2.0-7.7); Basophil# 0.01 X10^3/uL; Basophil% 0.2 % (0-1); Eosinophil# 0.36 X10^3/uL; Eosinophils% 5.9 % (0-5); Hematocrit 25.2 % (37-47); Hemoglobin 7.7 g/dL (12.0-15.0); Lymphocyte # 1.47 X10^3/ul (0.83-4.51); Lymphocyte % 24.2 % (19-41); Mean Corp Hgb Conc 30.6 g/dL (32-36); Mean Corpuscular Hgb 26.6 pg (27.0-32.0); Mean Corpuscular Volume 87.2 fL (81-99); Mean Platelet Vol. 9.7 fl (6.2-12.0); Monocyte# 0.38 X10^3/uL; Monocyte% 6.3 % (0-10); NRBC Flagged by Analyzer 0 % (0-5); Neutrophil # 3.84 X10^3/uL (2.7-7.7); Neutrophil % 63.1 % (47-70); Platelet Count 298 K/mm3 (150-450); Red Blood Count 2.89 M/mm3 (4.2-5.4); White Blood Count 6.1 K/mm3 (4.4-11.0)
[2023-04-05 09:15] LABS: Anion Gap 6 (5-15); BUN 40 mg/dL (7-18); BUN/Creat Ratio 38.5 RATIO (10-20); Calcium,Total 8.9 mg/dL (8.5-10.1); Chloride 105 mmol/L (98-107); Creatinine, Serum 1.04 mg/dL (0.55-1.02); EST Glomerular Filtration Rate 54 mL/min (>60); Est Glom Filt Rate - Afr Amer 65 mL/min (>60); Glucose 65 mg/dL (74-106); Sodium Level 139 mmol/L (136-145)
== END ==
LOC: OLS.WHLEAS 05:00
PROVIDERS: PCP Family Medicine; Visit Provider Internal Medicine
DX: E11.22 Type 2 diabetes mellitus 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 chronic kidney disease (principal); N18.9 Chronic kidney disease, unspecified; I48.0 Paroxysmal atrial fibrillation
CPT/HCPCS: 36415; 80048; 85025

== ENCOUNTER → 2023-04-06 | Outpatient (REF) | payer MEDICARE, SELFPAY ==
[2023-04-06 08:26] LABS: Absolute Lymphocyte Count 1.37 X10^3/uL (0.83-4.51); Absolute Neutrophil Count 2.7 X10^3/uL (2.0-7.7); Basophil# 0.03 X10^3/uL; Basophil% 0.6 % (0-1); Eosinophil# 0.35 X10^3/uL; Eosinophils% 7.2 % (0-5); Hematocrit 25.8 % (37-47); Hemoglobin 7.7 g/dL (12.0-15.0); Lymphocyte # 1.37 X10^3/ul (0.83-4.51); Lymphocyte % 28.1 % (19-41); Mean Corp Hgb Conc 29.8 g/dL (32-36); Mean Corpuscular Hgb 26.4 pg (27.0-32.0); Mean Corpuscular Volume 88.4 fL (81-99); Mean Platelet Vol. 9.7 fl (6.2-12.0); Monocyte# 0.38 X10^3/uL; Monocyte% 7.8 % (0-10); NRBC Flagged by Analyzer 0 % (0-5); Neutrophil # 2.72 X10^3/uL (2.7-7.7); Neutrophil % 55.7 % (47-70); Platelet Count 329 K/mm3 (150-450); RBC Distribution Width CV 16.2 % (11.6-14.6); RBC Distribution Width SD 52.4 fl (35.1-43.9); Red Blood Count 2.92 M/mm3 (4.2-5.4); White Blood Count 4.9 K/mm3 (4.4-11.0)
== END ==
LOC: OLS.WHLEAS 05:00
PROVIDERS: PCP Family Medicine; Visit Provider Internal Medicine
DX: D50.9 Iron deficiency anemia, unspecified (principal)
CPT/HCPCS: 36415; 85025

== ENCOUNTER → 2023-04-10 | Outpatient (REF) | payer MEDICARE, SELFPAY ==
[2023-04-10 08:32] LABS: Absolute Lymphocyte Count 1.35 X10^3/uL (0.83-4.51); Absolute Neutrophil Count 4.2 X10^3/uL (2.0-7.7); Basophil# 0.03 X10^3/uL; Basophil% 0.5 % (0-1); Eosinophil# 0.29 X10^3/uL; Eosinophils% 4.6 % (0-5); Hematocrit 26.6 % (37-47); Hemoglobin 8.2 g/dL (12.0-15.0); Lymphocyte # 1.35 X10^3/ul (0.83-4.51); Lymphocyte % 21.2 % (19-41); Mean Corp Hgb Conc 30.8 g/dL (32-36); Mean Corpuscular Volume 87.5 fL (81-99); Mean Platelet Vol. 9.5 fl (6.2-12.0); Monocyte# 0.52 X10^3/uL; Monocyte% 8.2 % (0-10); NRBC Flagged by Analyzer 0 % (0-5); Neutrophil # 4.15 X10^3/uL (2.7-7.7); Platelet Count 325 K/mm3 (150-450); RBC Distribution Width CV 16.4 % (11.6-14.6); RBC Distribution Width SD 52.4 fl (35.1-43.9); Red Blood Count 3.04 M/mm3 (4.2-5.4); White Blood Count 6.4 K/mm3 (4.4-11.0)
== END ==
LOC: OLS.WHLEAS 05:00
PROVIDERS: PCP Family Medicine; Visit Provider Internal Medicine
DX: D52.9 Folate deficiency anemia, unspecified (principal)
CPT/HCPCS: 36415; 85025

== ENCOUNTER → 2023-04-17 | Outpatient (REF) | payer MEDICARE, SELFPAY ==
[2023-04-17 08:44] LABS: Absolute Lymphocyte Count 1.32 X10^3/uL (0.83-4.51); Basophil# 0.04 X10^3/uL; Basophil% 0.7 % (0-1); Eosinophil# 0.26 X10^3/uL; Eosinophils% 4.2 % (0-5); Hemoglobin 8.2 g/dL (12.0-15.0); Lymphocyte # 1.32 X10^3/ul (0.83-4.51); Lymphocyte % 21.6 % (19-41); Mean Corp Hgb Conc 30.4 g/dL (32-36); Mean Corpuscular Hgb 26.7 pg (27.0-32.0); Mean Corpuscular Volume 87.9 fL (81-99); Mean Platelet Vol. 9.6 fl (6.2-12.0); Monocyte% 8.2 % (0-10); NRBC Flagged by Analyzer 0 % (0-5); Neutrophil # 3.96 X10^3/uL (2.7-7.7); Neutrophil % 64.6 % (47-70); Platelet Count 322 K/mm3 (150-450); RBC Distribution Width CV 16.5 % (11.6-14.6); RBC Distribution Width SD 53.2 fl (35.1-43.9); Red Blood Count 3.07 M/mm3 (4.2-5.4); White Blood Count 6.1 K/mm3 (4.4-11.0)
== END ==
LOC: OLS.WHLEAS 04:00
PROVIDERS: PCP Family Medicine; Referring Provider Internal Medicine; Visit Provider Internal Medicine
DX: D52.9 Folate deficiency anemia, unspecified (principal)
CPT/HCPCS: 36415; 85025

== ENCOUNTER → 2023-04-19 | Outpatient (REF) | payer MEDICARE, SELFPAY ==
[2023-04-19 09:25] LABS: Absolute Lymphocyte Count 1.81 X10^3/uL (0.83-4.51); Absolute Neutrophil Count 3.8 X10^3/uL (2.0-7.7); Basophil# 0.03 X10^3/uL; Basophil% 0.5 % (0-1); Eosinophil# 0.29 X10^3/uL; Eosinophils% 4.5 % (0-5); Hematocrit 24.3 % (37-47); Hemoglobin 7.5 g/dL (12.0-15.0); Lymphocyte # 1.81 X10^3/ul (0.83-4.51); Lymphocyte % 28.2 % (19-41); Mean Corp Hgb Conc 30.9 g/dL (32-36); Mean Corpuscular Hgb 26.7 pg (27.0-32.0); Mean Corpuscular Volume 86.5 fL (81-99); Mean Platelet Vol. 9.9 fl (6.2-12.0); Monocyte% 7.8 % (0-10); NRBC Flagged by Analyzer 0 % (0-5); Neutrophil # 3.75 X10^3/uL (2.7-7.7); Neutrophil % 58.5 % (47-70); Platelet Count 319 K/mm3 (150-450); RBC Distribution Width CV 16.3 % (11.6-14.6); RBC Distribution Width SD 51.1 fl (35.1-43.9); Red Blood Count 2.81 M/mm3 (4.2-5.4); White Blood Count 6.4 K/mm3 (4.4-11.0)
[2023-04-19 09:42] LABS: Anion Gap 5 (5-15); BUN 39 mg/dL (7-18); BUN/Creat Ratio 32.8 RATIO (10-20); Calcium,Total 8.6 mg/dL (8.5-10.1); Chloride 103 mmol/L (98-107); Creatinine, Serum 1.19 mg/dL (0.55-1.02); EST Glomerular Filtration Rate 46 mL/min (>60); Est Glom Filt Rate - Afr Amer 56 mL/min (>60); Glucose 70 mg/dL (74-106); Potassium 4.1 mmol/L (3.5-5.1); Sodium Level 138 mmol/L (136-145)
== END ==
LOC: OLS.WHLEAS 05:00
PROVIDERS: PCP Family Medicine; Visit Provider Internal Medicine
DX: D52.9 Folate deficiency anemia, unspecified (principal)
CPT/HCPCS: 36415; 80048; 85025

== ENCOUNTER → 2023-04-26 | Outpatient (REF) | payer MEDICARE, SELFPAY ==
[2023-04-26 08:12] LABS: Absolute Lymphocyte Count 1.74 X10^3/uL (0.83-4.51); Basophil# 0.04 X10^3/uL; Basophil% 0.7 % (0-1); Eosinophil# 0.27 X10^3/uL; Eosinophils% 4.9 % (0-5); Hematocrit 25.7 % (37-47); Hemoglobin 7.8 g/dL (12.0-15.0); Lymphocyte # 1.74 X10^3/ul (0.83-4.51); Lymphocyte % 31.8 % (19-41); Mean Corp Hgb Conc 30.4 g/dL (32-36); Mean Corpuscular Hgb 26.6 pg (27.0-32.0); Mean Corpuscular Volume 87.7 fL (81-99); Mean Platelet Vol. 9.4 fl (6.2-12.0); Monocyte# 0.37 X10^3/uL; Monocyte% 6.8 % (0-10); NRBC Flagged by Analyzer 0 % (0-5); Neutrophil # 3.03 X10^3/uL (2.7-7.7); Neutrophil % 55.4 % (47-70); Platelet Count 285 K/mm3 (150-450); RBC Distribution Width CV 16.9 % (11.6-14.6); Red Blood Count 2.93 M/mm3 (4.2-5.4); White Blood Count 5.5 K/mm3 (4.4-11.0)
== END ==
LOC: OLS.WHLEAS 05:00
PROVIDERS: PCP Family Medicine; Visit Provider Internal Medicine
DX: D52.9 Folate deficiency anemia, unspecified (principal)
CPT/HCPCS: 36415; 85025

== ENCOUNTER → 2023-05-03 | Outpatient (REF) | payer MEDICARE, SELFPAY ==
[2023-05-03 10:12] LABS: Absolute Lymphocyte Count 1.53 X10^3/uL (0.83-4.51); Absolute Neutrophil Count 3.1 X10^3/uL (2.0-7.7); Basophil# 0.04 X10^3/uL; Basophil% 0.7 % (0-1); Eosinophils% 7.3 % (0-5); Hematocrit 26.3 % (37-47); Hemoglobin 7.9 g/dL (12.0-15.0); Lymphocyte # 1.53 X10^3/ul (0.83-4.51); Lymphocyte % 28.1 % (19-41); Mean Corpuscular Hgb 26.3 pg (27.0-32.0); Mean Corpuscular Volume 87.7 fL (81-99); Mean Platelet Vol. 9.7 fl (6.2-12.0); Monocyte% 7.3 % (0-10); NRBC Flagged by Analyzer 0 % (0-5); Neutrophil # 3.05 X10^3/uL (2.7-7.7); Platelet Count 273 K/mm3 (150-450); RBC Distribution Width CV 17.2 % (11.6-14.6); RBC Distribution Width SD 55.1 fl (35.1-43.9); White Blood Count 5.5 K/mm3 (4.4-11.0)
[2023-05-03 10:17] LABS: Anion Gap 6 (5-15); BUN 45 mg/dL (7-18); BUN/Creat Ratio 34.1 RATIO (10-20); Calcium,Total 8.8 mg/dL (8.5-10.1); Chloride 105 mmol/L (98-107); Creatinine, Serum 1.32 mg/dL (0.55-1.02); EST Glomerular Filtration Rate 41 mL/min (>60); Est Glom Filt Rate - Afr Amer 50 mL/min (>60); Glucose 128 mg/dL (74-106); Potassium 4.3 mmol/L (3.5-5.1); Sodium Level 139 mmol/L (136-145)
== END ==
LOC: OLS.WHLEAS 05:40
PROVIDERS: PCP Family Medicine; Visit Provider Internal Medicine
DX: N18.9 Chronic kidney disease, unspecified (principal); I48.0 Paroxysmal atrial fibrillation; S82.201D Unspecified fracture of shaft of right tibia, subsequent encounter for closed fracture with routine healing
CPT/HCPCS: 36415; 80048; 85025

== ENCOUNTER → 2023-05-10 | Outpatient (REF) | payer MEDICARE, SELFPAY ==
[2023-05-10 07:36] LABS: Absolute Lymphocyte Count 1.63 X10^3/uL (0.83-4.51); Absolute Neutrophil Count 3.4 X10^3/uL (2.0-7.7); Basophil# 0.05 X10^3/uL; Basophil% 0.8 % (0-1); Eosinophil# 0.36 X10^3/uL; Eosinophils% 6.1 % (0-5); Hematocrit 26.2 % (37-47); Hemoglobin 7.9 g/dL (12.0-15.0); Lymphocyte # 1.63 X10^3/ul (0.83-4.51); Lymphocyte % 27.4 % (19-41); Mean Corp Hgb Conc 30.2 g/dL (32-36); Mean Corpuscular Hgb 25.9 pg (27.0-32.0); Mean Corpuscular Volume 85.9 fL (81-99); Mean Platelet Vol. 9.8 fl (6.2-12.0); Monocyte# 0.45 X10^3/uL; Monocyte% 7.6 % (0-10); NRBC Flagged by Analyzer 0 % (0-5); Neutrophil # 3.42 X10^3/uL (2.7-7.7); Neutrophil % 57.4 % (47-70); Platelet Count 278 K/mm3 (150-450); RBC Distribution Width CV 17.8 % (11.6-14.6); RBC Distribution Width SD 55.6 fl (35.1-43.9); Red Blood Count 3.05 M/mm3 (4.2-5.4)
[2023-05-15 09:01] LABS: Vitamin B12 466 pg/mL (211-911)
== END ==
LOC: OLS.WHLEAS 05:00
PROVIDERS: PCP Family Medicine; Visit Provider Internal Medicine
DX: D52.9 Folate deficiency anemia, unspecified (principal); D51.9 Vitamin B12 deficiency anemia, unspecified; I48.0 Paroxysmal atrial fibrillation
CPT/HCPCS: 36415; 82607; 85025

== ENCOUNTER → 2023-05-17 | Outpatient (REF) | payer MEDICARE, SELFPAY ==
[2023-05-17 08:45] LABS: Absolute Lymphocyte Count 1.61 X10^3/uL (0.83-4.51); Absolute Neutrophil Count 3.3 X10^3/uL (2.0-7.7); Basophil# 0.03 X10^3/uL; Basophil% 0.5 % (0-1); Eosinophil# 0.32 X10^3/uL; Eosinophils% 5.6 % (0-5); Hematocrit 27.6 % (37-47); Hemoglobin 8.3 g/dL (12.0-15.0); Lymphocyte # 1.61 X10^3/ul (0.83-4.51); Lymphocyte % 28.3 % (19-41); Mean Corp Hgb Conc 30.1 g/dL (32-36); Mean Corpuscular Volume 86.5 fL (81-99); Mean Platelet Vol. 9.7 fl (6.2-12.0); Monocyte# 0.38 X10^3/uL; Monocyte% 6.7 % (0-10); NRBC Flagged by Analyzer 0 % (0-5); Neutrophil # 3.31 X10^3/uL (2.7-7.7); Neutrophil % 58.4 % (47-70); Platelet Count 283 K/mm3 (150-450); RBC Distribution Width SD 56.5 fl (35.1-43.9); Red Blood Count 3.19 M/mm3 (4.2-5.4); White Blood Count 5.7 K/mm3 (4.4-11.0)
[2023-05-17 09:00] LABS: Anion Gap 5 (5-15); BUN 31 mg/dL (7-18); BUN/Creat Ratio 26.3 RATIO (10-20); Calcium,Total 9.1 mg/dL (8.5-10.1); Chloride 104 mmol/L (98-107); Creatinine, Serum 1.18 mg/dL (0.55-1.02); EST Glomerular Filtration Rate 47 mL/min (>60); Est Glom Filt Rate - Afr Amer 56 mL/min (>60); Glucose 113 mg/dL (74-106); Potassium 4.2 mmol/L (3.5-5.1); Sodium Level 137 mmol/L (136-145)
== END ==
LOC: OLS.WHLEAS 05:00
PROVIDERS: PCP Family Medicine; Visit Provider Internal Medicine
DX: N18.9 Chronic kidney disease, unspecified (principal); I48.0 Paroxysmal atrial fibrillation
CPT/HCPCS: 36415; 80048; 85025

== ENCOUNTER → 2023-05-24 | Outpatient (REF) | payer MEDICARE, SELFPAY ==
[2023-05-24 07:42] LABS: Absolute Lymphocyte Count 1.36 X10^3/uL (0.83-4.51); Absolute Neutrophil Count 3.2 X10^3/uL (2.0-7.7); Basophil# 0.04 X10^3/uL; Basophil% 0.8 % (0-1); Eosinophil# 0.26 X10^3/uL; Eosinophils% 4.9 % (0-5); Hematocrit 26.8 % (37-47); Lymphocyte # 1.36 X10^3/ul (0.83-4.51); Lymphocyte % 25.9 % (19-41); Mean Corp Hgb Conc 29.9 g/dL (32-36); Mean Corpuscular Hgb 26.1 pg (27.0-32.0); Mean Corpuscular Volume 87.3 fL (81-99); Mean Platelet Vol. 10.2 fl (6.2-12.0); Monocyte# 0.42 X10^3/uL; NRBC Flagged by Analyzer 0 % (0-5); Neutrophil # 3.16 X10^3/uL (2.7-7.7); Platelet Count 232 K/mm3 (150-450); RBC Distribution Width CV 17.8 % (11.6-14.6); RBC Distribution Width SD 56.8 fl (35.1-43.9); Red Blood Count 3.07 M/mm3 (4.2-5.4); White Blood Count 5.3 K/mm3 (4.4-11.0)
== END ==
LOC: OLS.WHLEAS 05:00
PROVIDERS: PCP Family Medicine; Visit Provider Internal Medicine
DX: D52.9 Folate deficiency anemia, unspecified (principal)
CPT/HCPCS: 36415; 85025

== ENCOUNTER → 2023-05-31 | Outpatient (REF) | payer MEDICARE, SELFPAY ==
[2023-05-31 08:47] LABS: Absolute Lymphocyte Count 1.72 X10^3/uL (0.83-4.51); Basophil# 0.04 X10^3/uL; Basophil% 0.6 % (0-1); Eosinophil# 0.31 X10^3/uL; Eosinophils% 4.6 % (0-5); Hematocrit 27.8 % (37-47); Hemoglobin 8.3 g/dL (12.0-15.0); Lymphocyte # 1.72 X10^3/ul (0.83-4.51); Lymphocyte % 25.6 % (19-41); Mean Corp Hgb Conc 29.9 g/dL (32-36); Mean Corpuscular Hgb 26.4 pg (27.0-32.0); Mean Corpuscular Volume 88.5 fL (81-99); Mean Platelet Vol. 9.5 fl (6.2-12.0); Monocyte% 8.9 % (0-10); NRBC Flagged by Analyzer 0 % (0-5); Neutrophil # 4.02 X10^3/uL (2.7-7.7); Neutrophil % 59.7 % (47-70); Platelet Count 248 K/mm3 (150-450); RBC Distribution Width CV 18.9 % (11.6-14.6); RBC Distribution Width SD 58.5 fl (35.1-43.9); Red Blood Count 3.14 M/mm3 (4.2-5.4); White Blood Count 6.7 K/mm3 (4.4-11.0)
[2023-05-31 09:06] LABS: Anion Gap 4 (5-15); BUN 37 mg/dL (7-18); BUN/Creat Ratio 28.2 RATIO (10-20); Calcium,Total 8.8 mg/dL (8.5-10.1); Chloride 105 mmol/L (98-107); Creatinine, Serum 1.31 mg/dL (0.55-1.02); EST Glomerular Filtration Rate 41 mL/min (>60); Est Glom Filt Rate - Afr Amer 50 mL/min (>60); Glucose 126 mg/dL (74-106); Potassium 4.3 mmol/L (3.5-5.1); Sodium Level 139 mmol/L (136-145)
== END ==
LOC: OLS.WHLEAS 05:00
PROVIDERS: PCP Family Medicine; Visit Provider Internal Medicine
DX: N18.9 Chronic kidney disease, unspecified (principal); I48.0 Paroxysmal atrial fibrillation
CPT/HCPCS: 36415; 80048; 85025

== ENCOUNTER → 2023-06-07 | Outpatient (REF) | payer MEDICARE, SELFPAY ==
--- OUTSIDE RECORDS SUMMARY | 2023-06-07 05:12 | XMS RPT_ITS | CCD ---
Author Name Unknown Address [address] [facility] [address] [place] [address] Organization [facility] Care Team Providers Care Distribution Lead Name Role Phone LAWSON VARMA Unavailable Unavailable [facility] Unavailable Unavailable Stefan Moore Unavailable Unavailable LAWSON VARMA Unavailable Unavailable LAWSON VARMA Unavailable Unavailable Stefan Moore Unavailable Unavailable LONNY SHAFER Unavailable Unavailable LONNY SHAFER Unavailable Unavailable Oscra ROTHMAN, Stefan Hackett Primary Care Provider Oscar ROTHMAN, Stefan Hackett Primary Care Provider [phone] Stefan Moore MD Primary Care Provider Oscar ROTHMAN, Stefan Hackett Primary Care Provider Dion Chavarria MD Unavailable OSCAR ROTHMAN, STEFAN Primary Care Unavailable GABRIELA ROTHMAN, DR ETHEL Arellano Attending Unavailab Caryl ROTHMAN, STEFAN Primary Care Unavailable GABRIELA ROTHMAN, DR ETHEL Arellano Attending UnavailSTEFAN Parson Primary Care Unavailable MONAE BOWSER Attending Unavailable DION CHAVARRIA Referring Unavailable OSCAR, STEFAN Primary Care Unavailable DION CHAVARRIA Attending Unavailable DION CHAVARRIA Referring Unavailable OSCAR, STEFAN Primary Care Unavailable OSCAR, STEFAN Primary Care Unavailable ADLI SEPULVEDA Referring Unavailable OSCAR, STEFAN Primary Care Unavailable OSCAR, STEFAN Referring Unavailable OSCAR, STEFAN Primary Care Unavailable OSCAR, STEFAN Referring Unavailable MARII RUIZ Attending Unavailable OSCAR, STEFAN Primary Care Unavailable DION CHAVARRIA Referring Unavailable OSCAR, STEFAN Primary Care Unavailable DION CHAVARRIA Referring Unavailable DION CHAVARRIA Attending Unavailable OSCAR, STEFAN Primary Care Unavailable STEFAN MOORE Attending Unavailable OSCAR, STEFAN Primary Care Unavailable OSCAR, STEFAN Primary Care Unavailable DION CHAVARRIA Referring Unavailable OSCAR, STEFAN Primary Care Unavailable MONAE BOWSER Referring Unavailable OSCAR, STEFAN Primary Care Unavailable BRIJESH BOJORQUEZ Attending Unavailable OSCAR, STEFAN Primary Care Unavailable DION CHAVARRIA Attending Unavailable DEON, DION Referring Unavailable CHUN BREWSTER Referring Unavailable OSCAR, STEFAN Primary Care Unavailable OSCAR, STEFAN Primary Care Unavailable OSCAR, STEFAN Primary Care Unavailable FABIOLA BRUMFIELD Referring Unavailable OSCAR, STEFAN Primary Care Unavailable OSCAR, STEFAN Attending Unavailable OSCAR, STEFAN Primary Care Unavailable OSCAR, STEFAN Referring Unavailable OSCAR, STEFAN Primary Care Unavailable OSCAR, STEFAN Primary Care Unavailable TESTRAKEDALI Attending Unavailable OSCAR, STEFAN Primary Care Unavailable OSCAR, STEFAN Primary Care Unavailable TESTTOMMY, DALI Attending Unavailable DEON, DION Referring Unavailable OSCAR, STEFAN Primary Care Unavailable ABRAMFERNANDO, DION Referring Unavailable OSCAR, STEFAN Primary Care Unavailable OSCAR, STEFAN Primary Care Unavailable MONAE BOWSER Attending Unavailable OSCAR, STEFAN Primary Care Unavailable OSCAR, STEFAN Primary Care Unavailable BRIJESH BOJORQUEZ Referring Unavailable OSCAR, STEFAN Primary Care Unavailable OSCAR, STEFAN Referring Unavailable OSCAR, STEFAN Primary Care Unavailable TESTRAKE, DALI Attending Unavailable TESTRAKE, DALI Referring Unavailable OSCAR, STEFAN Primary Care Unavailable HAAGENMONAE Referring Unavailable OSCAR, STEFAN Primary Care Unavailable OSCAR, STEFAN Primary Care Unavailable OSCAR, STEFAN Primary Care Unavailable OSCAR, STEFAN Attending Unavailable OSCAR, STEFAN Primary Care Unavailable ABRAMOVICJelani, DION Referring Unavailable OSCAR, STEFAN Primary Care Unavailable OSCAR, STEFAN Primary Care Unavailable CHUN BREWSTER Referring Unavailable OSCAR, STEFAN Primary Care Unavailable DOMINGO KNUTSON Attending Unavailable OSCAR, STEFAN Primary Care Unavailable TESTRAKE, DALI Attending Unavailable TESTRAKE, DALI Referring Unavailable Allergies Allergy Classification Reported Allergen(s) Allergy Type Date of Onset Reaction(s) Facility (20 sources) ezetimibe / simvastatin; Translations: [EZETIMIBE-SIMV ASTATIN] Drug Allergy 1 Contraindicatio n-Medical Surgical [facility] Repository (20 sources) Hmg-Coa Reductase Inhibitors (Statins); Translations: [[id number] A REDUCTASE INHIBITORS] Propensity to adverse reactions (disorder) 7 Other: See Comments [facility] Repository (20 sources) metFORMIN; Translations: [METFORMIN] Drug Allergy 4 Other: See Comments [facility] Repository (20 sources) simvastatin; Translations: [SIMVASTATIN] Drug Allergy 1 Contraindicatio n-Medical Surgical [facility] Repository (20 sources) Iodine; Translations: [IODINE] Drug Allergy 1 Rash, Unknown, Hives [facility] Medications Current Medications Medication Drug Class(es) Dates Sig (Normalized) Sig (Original) amLODIPine 5 mg oral tablet (20 sources) Dihydropyridine Calcium Channel Aminah Start: 06-28-2022 End: 06-28-2023 take 0.5 tablet by mouth once daily amLODIPine (NORVASC) 5 mg tablet Take 0.5 tablets by mouth once daily. 15 tablet 11 06/28/2022 06/28/2023 Active Completed/Discontinued Medications Medication Drug Class(es) Dates Sig (Normalized) Sig (Original) acetaminophen 500 mg oral tablet (20 sources) Start: 08-26-2020 take 2 tablets by mouth every eight hours as needed acetaminophen (TYLENOL) 500 mg tablet Take 1,000 mg by mouth every 8 hours as needed. 0 08/26/2020 Active Problems Active Problems Problem Classification Problem Date Documented Date Episodic/Chronic Acquired foot deformities (3 sources) Hammer toe; Translations: [Other hammer toe(s) (acquired), right foot] Chronic Anxiety disorders (20 sources) Anxiety state; Translations: [Generalized anxiety disorder] 02-26-2018 Chronic Cardiac dysrhythmias (20 sources) Paroxysmal atrial fibrillation; Translations: [Paroxysmal atrial fibrillation] Onset: 8 08-02-2021 Chronic Chronic kidney disease (20 sources) Chronic kidney disease stage 3B ; Translations: [Stage 3b chronic kidney disease (HCC)] Onset: 1 Chronic Chronic kidney disease (1 source) Chronic kidney disease; Translations: [Stage 3b chronic kidney disease (HCC)] Onset: 3 Congestive heart failure; nonhypertensive (10 sources) Congestive heart failure; Translations: [Heart failure, unspecified] Onset: 2 Chronic Deficiency and other anemia (20 sources) Anemia co-occurrent and due to chronic kidney disease stage 3; Translations: [Anemia due to stage 3a chronic kidney disease] Onset: 1 10-29-2020 Chronic Deficiency and other anemia (20 sources) Anemia due to blood loss; Translations: [Iron deficiency anemia secondary to blood loss (chronic)] Onset: 2 08-02-2021 Chronic Deficiency and other anemia (1 source) Anemia in chronic kidney disease; Translations: [Anemia due to stage 3b chronic kidney disease (HCC)] Onset: 3 Chronic Deficiency and other anemia (5 sources) Anemia; Translations: [Anemia, unspecified] Episodic Deficiency and other anemia (1 source) Deficiency and other anemia; Translations: [Anemia due to stage 3b chronic kidney disease (HCC)] Onset: 3 Diabetes mellitus with complications (20 sources) Type 2 diabetes mellitus; Translations: [Type 2 diabetes mellitus 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 polyneuropathy] Onset: 8 07-22-2020 Chronic Diabetes mellitus without complication (1 source) Diabetes mellitus without complication; Translations: [Type 2 diabetes mellitus with stage 3b chronic kidney disease, without long-term current use of insulin (HCC)] Onset: 2 Disorders of lipid metabolism (20 sources) Pure hypercholesterolemia; Translations: [Pure hypercholesterolemia, unspecified] Onset: 7 12-26-2016 Chronic E Codes: Fall (1 source) Fall; Translations: [Unspecified fall, initial encounter] Episodic Esophageal disorders (20 sources) Gastroesophageal reflux disease; Translations: [Gastro-esophageal reflux disease without esophagitis] Onset: 6 12-30-2005 Chronic Fever of unknown origin (2 sources) Fever; Translations: [Fever, unspecified] Episodic Fracture of lower limb (1 source) Closed fracture of shaft of tibia; Translations: [Nondisplaced transverse fracture of shaft of right tibia, subsequent encounter for closed fracture with delayed healing] 04-05-2023 Episodic Gout and other crystal arthropathies (20 sources) Gout; Translations: [Gout, unspecified] Onset: 7 09-08-2016 Chronic Hypertension with complications and secondary hypertension (20 sources) Renal hypertension; Translations: [Hypertension secondary to other renal disorders] Onset: 7 03-20-2017 Chronic Mycoses (20 sources) Onychomycosis due to dermatophyte ; Translations: [Tinea unguium] Onset: 7 01-11-2007 Episodic Nephritis; nephrosis; renal sclerosis (20 sources) Kidney disease; Translations: [Nephropathy induced by other drugs, medicaments and biological substances] Onset: 7 12-26-2016 Chronic Occlusion or stenosis of precerebral arteries (1 source) Right carotid artery stenosis; Translations: [Occlusion and stenosis of right carotid artery] 04-05-2023 Chronic Osteoarthritis (20 sources) Osteoarthritis; Translations: [Unspecified osteoarthritis, unspecified site] 04-06-2015 Chronic Other aftercare (2 sources) Patient encounter status; Translations: [Encounter for therapeutic drug level monitoring] 12-10-2022 Episodic Other connective tissue disease (6 sources) Pain of toe of right foot; Translations: [Pain in right toe(s)] Episodic Other connective tissue disease (6 sources) Pain of toe of left foot; Translations: [Pain in left toe(s)] Episodic Other connective tissue disease (2 sources) Swelling of lower limb; Translations: [Other specified soft tissue disorders] Episodic Other connective tissue disease (2 sources) Pain in finger of left hand; Translations: [Pain in left finger(s)] Episodic Other diseases of kidney and ureters (1 source) Renal impairment; Translations: [Disorder of kidney and ureter, unspecified] Episodic Other endocrine disorders (20 sources) Hyperparathyroidism due to vitamin D deficiency; Translations: [Secondary hyperparathyroidism, not elsewhere classified] Onset: 7 03-20-2017 Chronic Other endocrine disorders (1 source) Secondary hyperparathyroidism, not elsewhere classified; Translations: [Hyperparathyroidism due to vitamin D deficiency (HCC)] Onset: 7 Chronic Other non-traumatic joint disorders (1 source) Acute ankle pain; Translations: [Pain in right ankle and joints of right foot] Episodic Other nutritional; endocrine; and metabolic disorders (1 source) Obese class I; Translations: [Obesity, unspecified] 01-02-2023 Chronic Other nutritional; endocrine; and metabolic disorders (1 source) Obesity, unspecified; Translations: [Obesity, Class I, BMI 30-34.9] Onset: 3 Chronic Pebbles-; endo-; and myocarditis; cardiomyopathy (except that caused by tuberculosis or sexually transmitted disease) (20 sources) Cardiomyopathy; Translations: [Other cardiomyopathies] Onset: 8 08-02-2021 Chronic Peripheral and visceral atherosclerosis (20 sources) Peripheral vascular disease; Translations: [Peripheral vascular disease, unspecified] Onset: 4 12-16-2013 Chronic Pneumonia (except that caused by tuberculosis or sexually transmitted disease) (3 sources) Bacterial pneumonia; Translations: [Unspecified bacterial pneumonia] Episodic Residual codes; unclassified (20 sources) Obstructive sleep apnea syndrome; Translations: [Obstructive sleep apnea (adult) (pediatric)] Onset: 8 04-13-2018 Chronic Skin and subcutaneous tissue infections (2 sources) Cellulitis of right lower limb; Translations: [Cellulitis of right lower limb] Episodic Superficial injury; contusion (1 source) Contusion of right great toe; Translations: [Contusion of right great toe without damage to nail, initial encounter] 01-20-2023 Episodic Thyroid disorders (20 sources) Hypothyroidism; Translations: [Hypothyroidism, unspecified] Onset: 8 02-22-2018 Chronic Unclassified (2 sources) Unknown / UNK(Unknown) Onset: 7 Unclassified (1 source) Non-Chemotherapy Treatment Onset: 3 Viral infection (2 sources) Disease caused by 2019-nCoV; Translations: [COVID-19] Episodic Past or Other Problems Problem Classification Problem Date Documented Da te Episodic/Chronic Acute and unspecified renal failure (20 sources) Kidney disease; Translations: [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)] Onset: 12-26-2016 12-26-2016 Episodic Administrative/social admission (1 source) Dietary counseling and surveillance; Translations: [Dietary counseling] Onset: 01-02-2023 Episodic Chronic obstructive pulmonary disease and bronchiectasis (5 sources) Bronchitis; Translations: [Bronchitis, not specified as acute or chronic] Onset: 11-07-2022 Episodic Deficiency and other anemia (20 sources) Iron deficiency anemia; Translations: [Iron deficiency anemia, unspecified] Onset: 10-29-2020 10-29-2020 Episodic Deficiency and other anemia (1 source) Iron deficiency anemia, unspecified; Translations: [Iron deficiency anemia, unspecified iron deficiency anemia type] Onset: 10-29-2020 Episodic Deficiency and other anemia (1 source) Anemia, unspecified; Translations: [Anemia, unspecified type] Onset: 11-07-2022 Episodic Nutritional deficiencies (20 sources) Cobalamin deficiency; Translations: [Deficiency of other specified B group vitamins] Onset: 09-08-2016 Episodic Other aftercare (1 source) Encounter for therapeutic drug level monitoring; Translations: [Medication monitoring encounter] Onset: 12-10-2022 Episodic Other bone disease and musculoskeletal deformities (20 sources) Osteopenia; Translations: [Other specified disorders of bone density and structure, unspecified site] Onset: 06-09-2010 05-31-2021 Episodic Other connective tissue disease (1 source) Pain in left finger(s); Translations: [Finger pain, left] Onset: 06-08-2022 Episodic Other hematologic conditions (4 sources) Abnormality of albumin; Translations: [Other nonspecific findings on examination of blood] Onset: 12-19-2022 12-10-2022 Episodic Other nervous system disorders (20 sources) Abnormal gait; Translations: [Unspecified abnormalities of gait and mobility] Onset: 07-16-2013 07-16-2013 Episodic Other nervous system disorders (20 sources) Drug-induced myopathy; Translations: [Drug-induced myopathy] Onset: 12-16-2013 12-16-2013 Episodic Other upper respiratory infections (1 source) Acute upper respiratory infection, unspecified; Translations: [URI, acute] Onset: 2022 Episodic Spondylosis; intervertebral disc disorders; other back problems (20 sources) Thoracic and lumbosacral neuritis; Translations: [Thoracic or lumbosacral neuritis or radiculitis, unspecified] Onset: 07-16-2010 07-16-2010 Episodic Results Test Name Value Interpretation Reference Range Facil ity Vital Signs Date Time Vital Sign Value Performing Clinician Faci callie 05-01-2023 14:10-0500 Body temperature 97.5 [degF] Dion Chavarria MD Work Phone: [facility] 05-01-2023 14:10-0500 Diastolic blood pressure 57 mm[Hg] Dion Chavarria MD Work Phone: [facility] 05-01-2023 14:10-0500 Heart rate 87 /min Dion Chavarria MD Work Phone: [facility] 05-01-2023 14:10-0500 SaO2% (BldA) [Mass fraction] 96 % Dion Chavarria MD Work Phone: [facility] 05-01-2023 14:10-0500 Systolic blood pressure 105 mm[Hg] Dion Chavarria MD Work Phone: [facility] 04-05-2023 09:26-0400 Body height 172.7 cm Stefan Moore MD Work Phone: [facility] 04-05-2023 09:26-0400 Body weight 94.35 kg Stefan Moore MD Work Phone: [facility] 04-05-2023 09:26-0400 Diastolic blood pressure 48 mm[Hg] Stefan Moore MD Work Phone: [facility] 04-05-2023 09:26-0400 Heart rate 80 /min Stefan Moore MD Work Phone: [facility] 04-05-2023 09:26-0400 SaO2% (BldA) [Mass fraction] 95 % Stefan Moore MD Work Phone: [facility] 04-05-2023 09:26-0400 Systolic blood pressure 120 mm[Hg] Stefan Moroe MD Work Phone: [facility] 01-10-2023 12:19-0400 Body temperature 97 [degF] Dion Chavarria MD Work Phone: [facility] 01-10-2023 12:19-0400 Body weight 90.27 kg Dion Chavarria MD Work Phone: [facility] 01-10-2023 12:19-0400 Diastolic blood pressure 66 mm[Hg] Dion Chavarria MD Work Phone: [facility] 01-10-2023 12:19-0400 Heart rate 75 /min Dion Chavarria MD Work Phone: [facility] 01-10-2023 12:19-0400 SaO2% (BldA) [Mass fraction] 97 % Dion Chavarria MD Work Phone: [facility] 01-10-2023 12:19-0400 Systolic blood pressure 128 mm[Hg] Dion Chavarria MD Work Phone: [facility] 01-02-2023 12:59-0400 Body height 172.7 cm Marii Ruiz DAREN [facility] 01-02-2023 12:59-0400 Body weight 94.[address] [facility] 12-10-2022 10:50-0400 Body height 172.7 cm Stefan Moore MD Work Phone: [facility] 12-10-2022 10:50-0400 Body weight 92.53 kg Stefan Moore MD Work Phone: [facility] 12-10-2022 10:50-0400 Diastolic blood pressure 58 mm[Hg] Stefan Moore MD Work Phone: [facility] 12-10-2022 10:50-0400 Heart rate 80 /min Stefan Moore MD Work Phone: [facility] 12-10-2022 10:50-0400 SaO2% (BldA) [Mass fraction] 96 % Stefan Moore MD Work Phone: [facility] 12-10-2022 10:50-0400 Systolic blood pressure 140 mm[Hg] Stefan Moore MD Work Phone: [facility] 11-07-2022 13:35-0400 Diastolic blood pressure 60 mm[Hg] Monae Haagen ROTARY DERRICK OPERATOR.[employer] DEVELOPER Work Phone: [facility] 11-07-2022 13:35-0400 Heart rate 83 /min Monae Haagen ROTARY DERRICK OPERATOR.[employer] DEVELOPER Work Phone: [facility] 11-07-2022 13:35-0400 Respiratory rate 16 /min Monae Haagen ROTARY DERRICK OPERATOR.[employer] DEVELOPER Work Phone: [facility] 11-07-2022 13:35-0400 SaO2% (BldA) [Mass fraction] 96 % Monae Haagen ROTARY DERRICK OPERATOR.[employer] DEVELOPER Work Phone: [facility] 11-07-2022 13:35-0400 Systolic blood pressure 132 mm[Hg] Monae Haagen ROTARY DERRICK OPERATOR.[employer] DEVELOPER Work Phone: [facility] 08-23-2022 15:46-0400 Diastolic blood pressure 60 mm[Hg] Stefan Moore MD Work Phone: [facility] 08-23-2022 15:46-0400 Systolic blood pressure 138 mm[Hg] Stefan Moore MD Work Phone: [facility] 08-23-2022 15:23-0400 Body height 172.7 cm Stefan Moore MD Work Phone: [facility] 08-23-2022 15:23-0400 Body weight 94.89 kg Stefan Moore MD Work Phone: [facility] 08-23-2022 15:23-0400 Heart rate 84 /min Stefan Moore MD Work Phone: [facility] 08-23-2022 15:23-0400 SaO2% (BldA) [Mass fraction] 97 % Stefan Moore MD Work Phone: [facility] 07-13-2022 11:05-0500 Diastolic blood pressure 58 mm[Hg] Mi Nurse Work Phone: [facility] 07-13-2022 11:05-0500 Heart rate 70 /min Mi Nurse Work Phone: [facility] 07-13-2022 11:05-0500 Systolic blood pressure 128 mm[Hg] Mi Nurse Work Phone: [facility] 06-28-2022 14:06-0500 Diastolic blood pressure 75 mm[Hg] Mi Nurse Work Phone: [facility] 06-28-2022 14:06-0500 Heart rate 76 /min Mi Nurse Work Phone: [facility] 06-28-2022 14:06-0500 Systolic blood pressure 157 mm[Hg] Mi Nurse Work Phone: [facility] 06-08-2022 09:57-0500 Body temperature 96.01 [degF] Chun Brewster MD Work Phone: [facility] 06-08-2022 09:57-0500 Body weight 94.17 kg Chun Brewster MD Work Phone: [facility] 06-08-2022 09:57-0500 Diastolic blood pressure 84 mm[Hg] Chun Brewster MD Work Phone: [facility] 06-08-2022 09:57-0500 Heart rate 82 /min Chun Brewster MD Work Phone: [facility] 06-08-2022 09:57-0500 Respiratory rate 18 /min Chun Brewster MD Work Phone: [facility] 06-08-2022 09:57-0500 SaO2% (BldA) [Mass fraction] 96 % Chun Brewster MD Work Phone: [facility] 06-08-2022 09:57-0500 Systolic blood pressure 156 mm[Hg] Chun Brewster MD Work Phone: [facility] 05-24-2022 12:38-0500 Body height 172.7 cm Stefan Moore MD Work Phone: [facility] 05-24-2022 12:38-0500 Body weight 94.8 kg Stefan Moore MD Work Phone: [facility] 05-24-2022 12:38-0500 Diastolic blood pressure 58 mm[Hg] Stefan Moore MD Work Phone: [facility] 05-24-2022 12:38-0500 Heart rate 61 /min Stefan Moore MD Work Phone: [facility] 05-24-2022 12:38-0500 SaO2% (BldA) [Mass fraction] 97 % Stefan Moore MD Work Phone: [facility] 05-24-2022 12:38-0500 Systolic blood pressure 150 mm[Hg] Stefan Moore MD Work Phone: [facility] 05-02-2022 12:04-0500 Body temperature 97.81 [degF] Yadira Chaudhry MD Work Phone: [facility] 05-02-2022 12:04-0500 Body weight 96.62 kg Yadira Chaudhry MD Work Phone: [facility] 05-02-2022 12:04-0500 Diastolic blood pressure 67 mm[Hg] Yadira Chaudhry MD Work Phone: [facility] 05-02-2022 12:04-0500 Heart rate 85 /min Yadira Chaudhry MD Work Phone: [facility] 05-02-2022 12:04-0500 Systolic blood pressure 154 mm[Hg] Yadira Chaudhry MD Work Phone: [facility] 04-07-2022 10:09-0400 Body temperature 99.19 [degF] NA King PA-C Work Phone: [facility] 04-07-2022 10:09-0400 Diastolic blood pressure 58 mm[Hg] NA King PA-C Work Phone: [facility] 04-07-2022 10:09-0400 Heart rate 84 /min NA King PA-C Work Phone: [facility] 04-07-2022 10:09-0400 Respiratory rate 20 /min NA King PA-C Work Phone: [facility] 04-07-2022 10:09-0400 SaO2% (BldA) [Mass fraction] 94 % NA King PA-C Work Phone: [facility] 04-07-2022 10:09-0400 Systolic blood pressure 126 mm[Hg] NA King PA-C Work Phone: [facility] 03-28-2022 15:46-0400 Body temperature 98.4 [degF] NA King PA-C Work Phone: [facility] 03-28-2022 15:46-0400 Diastolic blood pressure 60 mm[Hg] NA King PA-C Work Phone: [facility] 03-28-2022 15:46-0400 Heart rate 84 /min NA King PA-C Work Phone: [facility] 03-28-2022 15:46-0400 Respiratory rate 20 /min NA King PA-C Work Phone: [facility] 03-28-2022 15:46-0400 SaO2% (BldA) [Mass fraction] 97 % NA King PA-C Work Phone: [facility] 03-28-2022 15:46-0400 Systolic blood pressure 130 mm[Hg] NA King PA-C Work Phone: [facility] 02-14-2022 14:37-0400 Body weight 97.98 kg Stefan Moore MD Work Phone: [facility] 02-14-2022 14:37-0400 Diastolic blood pressure 66 mm[Hg] Stefan Moore MD Work Phone: [facility] 02-14-2022 14:37-0400 Heart rate 83 /min Stefan Moore MD Work Phone: [facility] 02-14-2022 14:37-0400 Respiratory rate 16 /min Stefan Moore MD Work Phone: [facility] 02-14-2022 14:37-0400 SaO2% (BldA) [Mass fraction] 98 % Stefan Moore MD Work Phone: [facility] 02-14-2022 14:37-0400 Systolic blood pressure 132 mm[Hg] Stefan Moore MD Work Phone: [facility] 01-31-2022 13:46-0400 Body weight 102.06 kg Stefan Moore MD Work Phone: [facility] 01-31-2022 13:46-0400 Diastolic blood pressure 62 mm[Hg] Stefan Moore MD Work Phone: [facility] 01-31-2022 13:46-0400 Heart rate 68 /min Stefan Moore MD Work Phone: [facility] 01-31-2022 13:46-0400 Systolic blood pressure 124 mm[Hg] Stefan Moore MD Work Phone: [facility] 01-24-2022 11:41-0400 Diastolic blood pressure 60 mm[Hg] Flor Moorehof [employer]ARY DERRICK OPERATOR.[employer] DEVELOPER Work Phone: [facility] 01-24-2022 11:41-0400 Heart rate 77 /min Flor Moorehof ROTARY DERRICK OPERATOR.[employer] DEVELOPER Work Phone: [facility] 01-24-2022 11:41-0400 Respiratory rate 16 /min Flor Moorehof ROTARY DERRICK OPERATOR.[employer] DEVELOPER Work Phone: [facility] 01-24-2022 11:41-0400 SaO2% (BldA) [Mass fraction] 98 % Flor Moorehof ROTARY DERRICK OPERATOR.[employer] DEVELOPER Work Phone: [facility] 01-24-2022 11:41-0400 Systolic blood pressure 114 mm[Hg] Flor Moorehof ROTARY DERRICK OPERATOR.[employer] DEVELOPER Work Phone: [facility] 01-14-2022 12:01-0400 Body temperature 97.2 [degF] Ana Bell ROTARY DERRICK OPERATOR.RUBY RAILS DEVELOPER Work Phone: [facility] 01-14-2022 12:01-0400 Body weight 101.42 kg Ana Bell APRN.RUBY RAILS DEVELOPER Work Phone: [facility] 01-14-2022 12:01-0400 Diastolic blood pressure 72 mm[Hg] Ana Bell ROTARY DERRICK OPERATOR.RUBY RAILS DEVELOPER Work Phone: [facility] 01-14-2022 12:01-0400 Heart rate 79 /min Ana Bell ROTARY DERRICK OPERATOR.RUBY RAILS DEVELOPER Work Phone: [facility] 01-14-2022 12:01-0400 Respiratory rate 18 /min Ana Bell ROTARY DERRICK OPERATOR.RUBY RAILS DEVELOPER Work Phone: [facility] 01-14-2022 12:01-0400 SaO2% (BldA) [Mass fraction] 99 % Ana Bell ROTARY DERRICK OPERATOR.RUBY RAILS DEVELOPER Work Phone: [facility] 01-14-2022 12:01-0400 Systolic blood pressure 142 mm[Hg] Ana Bell ROTARY DERRICK OPERATOR.RUBY RAILS DEVELOPER Work Phone: [facility] 12-31-2021 09:46-0400 Body temperature 97.81 [degF] Stefan Moore MD Work Phone: [facility] 12-31-2021 09:46-0400 Diastolic blood pressure 58 mm[Hg] Stefan Moore MD Work Phone: [facility] 12-31-2021 09:46-0400 Heart rate 78 /min Stefan Moore MD Work Phone: [facility] 12-31-2021 09:46-0400 Respiratory rate 18 /min Stefan Moore MD Work Phone: [facility] 12-31-2021 09:46-0400 SaO2% (BldA) [Mass fraction] 97 % Stefan Moore MD Work Phone: [facility] 12-31-2021 09:46-0400 Systolic blood pressure 138 mm[Hg] Stefan Moore MD Work Phone: [facility] 12-23-2021 09:48-0400 Body temperature 97.2 [degF] NA King PA-C Work Phone: [facility] 12-23-2021 09:48-0400 Diastolic blood pressure 64 mm[Hg] NA King PA-C Work Phone: [facility] 12-23-2021 09:48-0400 Heart rate 84 /min NA King PA-C Work Phone: [facility] 12-23-2021 09:48-0400 Respiratory rate 20 /min NA King PA-C Work Phone: [facility] 12-23-2021 09:48-0400 SaO2% (BldA) [Mass fraction] 97 % NA King PA-C Work Phone: [facility] 12-23-2021 09:48-0400 Systolic blood pressure 136 mm[Hg] NA King PA-C Work Phone: [facility] 10-04-2021 16:04-0400 Body temperature 98.49 [degF] Yadira Chaudhry MD Work Phone: [facility] 10-04-2021 16:04-0400 Body weight 103.87 kg Yadira Chaudhry MD Work Phone: [facility] 10-04-2021 16:04-0400 Diastolic blood pressure 72 mm[Hg] Yadira Chaudhry MD Work Phone: [facility] 10-04-2021 16:04-0400 Heart rate 76 /min Yadira Chaudhry MD Work Phone: [facility] 10-04-2021 16:04-0400 SaO2% (BldA) [Mass fraction] 97 % Yadira Chaudhry MD Work Phone: [facility] 10-04-2021 16:04-0400 Systolic blood pressure 164 mm[Hg] Yadira Chaudhry MD Work Phone: [facility] Encounters Encounter Date Encounter Type Care Provider Facility Start: 06-01-2023 End: 06-01-2023 ambulatory [facility] Facility:[facility] Start: 05-25-2023 End: 05-25-2023 ambulatory [facility] Facility:[facility] Start: 05-11-2023 End: 05-11-2023 ambulatory Treatment Rm 12 [facility] Work Phone: Hematology/Oncology Procedures Date Procedure Procedure Detail Performing Clinician Start: 01-20-2023 Radex toe minimum 2 views Dali Sepulveda Work Phone: Start: 03-28-2022 Radiologic exam ches t 2 views M Tyree King PA-C Work Phone: Start: 01-24-2022 Dup-scan xtr veins unilateral/limited study Flor Boyle APRN.RUBY RAILS DEVELOPER Work Phone: Start: 01-12-2022 Mri spinal canal lum bar w/o contrast material [facility] Provider Start: 04-20-2021 Adult depression screening assessment Mi Nurse Work Phone: Plan of Treatment Date Care Activity Detail Author Start: 12-16-2023 Hepatitis B screening URINE ALBUMIN:CREATININE RATIO [facility] Start: 09-27-2023 Glaucoma screening Dilated Retinal Exam [facility] Start: 09-27-2023 Hepatitis C antibody, confirmatory test DILATED RETINAL EXAM [facility] Start: 09-01-2023 Hepatitis B surface antibody level LDL CHOLESTEROL [facility] Start: 06-12-2023 End: 08-12-2023 Hemoglobin A1c in Blood HGB A1C Lab Routine Type 2 diabetes mellitus 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 peripheral angiopathy without gangrene, without long-term current use of insulin (HCC) Type 2 diabetes mellitus with stage 3b chronic kidney disease, without long-term current use of insulin (HCC) Expected: 06/12/2023, Expires: 08/12/2023 [facility] Work Phone: Immunizations Immunization Date Immunization Notes Care Provider Betty kraus 10-20-2022 COVID-19 vaccine, ag e 12+ yr, bivalent (PFIZER-BIONTECH) Fito Saenz MD Work Phone: [facility] Work Phone: 02-24-2022 COVID-19 booster vaccine, age 12+ yr, bivalent (PFIZER-BIONTECH) Yadira Chaudhry MD Work Phone: [facility] Work Phone: 02-24-2022 influenza, high-dose , quadrivalent vaccine (FLUZONE HIGH DOSE QUADRIVALENT) Yadira Chaudhry MD Work Phone: [facility] Work Phone: 02-24-2022 influenza virus vacc ine, unspecified formulation Stefan Moore MD Work Phone: [facility] 03-29-2021 influenza, high-dose , quadrivalent vaccine (FLUZONE HIGH DOSE QUADRIVALENT) Ma Nurse Work Phone: [facility] 08-12-2020 COVID-19 vaccine, fu ll dose (MODERNA) Ma Nurse Work Phone: [facility] 07-16-2020 COVID-19 vaccine, fu ll dose (MODERNA) Ma Nurse Work Phone: [facility] 05-25-2020 zoster vaccine recombinant Stefan Moore MD Work Phone: [facility] 03-14-2020 influenza (aIIV4) vaccine, age 65+ yr, quadrivalent, PF (FLUAD QUADRIVALENT) Stefan Moore MD Work Phone: [facility] 03-14-2020 zoster vaccine recombinant Mi Nurse Work Phone: [facility] 03-05-2020 influenza, seasonal, injectable, preservative free Stefan Moore MD Work Phone: [facility] 02-18-2020 influenza, high dose seasonal, preservative-free Mi Nurse Work Phone: [facility] 03-11-2019 influenza, high dose seasonal, preservative-free Mi Nurse Work Phone: [facility] Work Phone: 02-26-2018 influenza, high dose seasonal, preservative-free Mi Nurse Work Phone: [facility] Work Phone: 05-09-2017 influenza, high dose seasonal, preservative-free Mi Nurse Work Phone: [facility] 03-05-2017 influenza, seasonal, injectable, preservative free Stefan Moore MD Work Phone: [facility] 04-07-2016 influenza, high dose seasonal, preservative-free Mi Nurse Work Phone: [facility] 04-06-2015 influenza, high dose seasonal, preservative-free Mi Nurse Work Phone: [facility] 10-07-2014 pneumococcal conjuga te vaccine, 13 valent Mi Nurse Work Phone: [facility] 03-14-2014 influenza, seasonal, injectable Mi Nurse Work Phone: [facility] 04-02-2013 influenza virus vacc ine, unspecified formulation Mi Nurse Work Phone: [facility] 03-05-2013 influenza, seasonal, injectable, preservative free Stefan Moore MD Work Phone: [facility] 04-02-2012 influenza virus vacc ine, unspecified formulation Mi Nurse Work Phone: [facility] 03-21-2012 zoster vaccine, live Mi Nurs e Work Phone: [facility] Work Phone: 06-03-2010 influenza virus vacc ine, unspecified formulation Mi Nurse Work Phone: [facility] 06-03-2010 pneumococcal polysaccharide vaccine, 23 valent Mi Nurse Work Phone: [facility] 05-13-2008 influenza virus vacc ine, unspecified formulation Mi Nurse Work Phone: [facility] Work Phone: 04-04-2007 influenza virus vacc ine, unspecified formulation Ma Nurse Work Phone: [facility] Work Phone: 03-15-2007 diphtheria and tetan us toxoids, adsorbed for pediatric use Ma Nurse Work Phone: [facility] Work Phone: 04-26-2005 influenza virus vacc ine, unspecified formulation Ma Nurse Work Phone: [facility] 05-17-2000 pneumococcal polysaccharide vaccine, 23 valent Ma Nurse Work Phone: [facility] Work Phone: 03-17-1997 diphtheria and tetan us toxoids, adsorbed for pediatric use Mi Nurse Work Phone: [facility] Work Phone: Payers Date Payer Category Payer Medicare [employer] MEDICARE A ETNA MEDICARE PPO [id number] 2021-Present [phone] [address] [place] [address] PPO [id number] 2021 Medicare [employer] MEDICARE A ETNA MEDICARE PPO [id number] 2021-Present [phone] [address] [place] [address] PPO [id number] 2021 Medicare [id number] Medicare [id number] Social History Date Type Detail Facility Start: 11-09-2010 Tobacco smoking stat us NHIS Never smoked tobacco [facility] Start: 08-02-2021 End: 05-11-2023 Alcohol intake Current non-drinker of alcohol (finding) [facility] Start: 1940 Sex Assigned At Not on file [facility] Start: 08-16-2021 End: 05-02-2022 Exposure to SARS-CoV-2 (event) Not sure [facility] Start: 11-09-2010 Tobacco use and exposure Smokeless tobacco non-user [facility] Work Phone: Start: 10-12-2022 End: 12-10-2022 History of Social function [facility] Work Phone: Start: 10-12-2022 End: 12-10-2022 Tobacco use panel [facility] Work Phone: Adult Depression Screening Assessment 2 [facility] Work Phone: Medical Equipment Procedure Code Equipment Code Equipment Origin al Text Equipment Identifier Dates Start: 02-10-2015 End: 09-23-2022 Clinical Notes 11-10-2017 to 05-18-2023 Telephone Encounter - Chacha Ferris - 05/18/2023 4:45 PM ESTTelephone Encounter - Chrissy Ardon - 05/18/2023 11:16 AM ESTTelephone Encounter - Chrissy Ardon - 05/16/2023 10:27 AM EST Note Date & Type Note Facility 05-18-2023 Miscellaneous Notes Patient called back and confirmed labs and office visit w/ Iron. Chacha Ferris 3rd and final attempt: LM and will send Unable to reach letter. Also placed note on pt's upcoming apts 2nd attempt: LM 1st attempt: Left message. When pt returns call please assist in scheduling OV as directed below Per Dr. Chavarria, OV prior to the 4th dose of Venofer. Flavia Chung RN Check out comments: [Please set up venofer 200 mg infusions every 5-7 days x 4 doses scheduled Labs cbc and iron panel prior to 4th dose venofer scheduled After the venofer we can schedule aranesp injections every 2 weeks cbc prior to each aranesp SCHEDULED Please advise on when pt should have follow up OV Thank you! documented in this encounter [facility] 05-11-2023 Note [facility] 05-11-2023 Note [facility] 05-11-2023 Note [facility] 05-11-2023 Miscellaneous Notes Patient on 1st time treatment report-non oncology regimen (venofer) Patient holds medicare coverage and no FA available for this treatment. documented in this encounter [facility] 05-11-2023 History of Present illness Narrative Last saw pcp: 04/05/23 Subjective: Patient presents to clinic c/o painful toenails. They state that the nails are especially painful with shoe gear and pressure. Patient states that nails 1-5 b/l are painful. Patient admits to being diabetic. No other pedal complaints at this time. Patient states no change in medications or medical history since last visit. Objective: Patient presents to clinic nonambulatory Vasc: DP and PT pulses are faintly palpable bilateral. CFT is less than 5 seconds bilateral. Skin temperature is warm to cool proximal to distal bilateral. There is moderate edema or varicosities noted. Neuro: Protective sensation is decreased to the foot and toes when tested with the 5.07 SWM bilateral. Vibratory sensation is absent at the hallux IPJ bilateral. The hallux is downgoing bilateral. Derm: Nails 1-5 b/l are painful, discolored-yellow, thick, crumbly, dystrophic and with subungal debris. Skin is of normal turgor, texture and hair growth is absent bilateral. There are no hyperkeratosis, ulcerations, scars, verruca or other lesions noted. Ortho: Muscle strength is 5/5 for all pedal groups tested. Ankle joint DF is decreased with the knee extended with no pain or crepitus noted. 1st MPJ ROM is decreased bilateral. Assessment: (B35.1) Onychomycosis (primary encounter diagnosis) (M79.674) Pain in toe of right foot (M79.675) Pain in toe of left foot (E11.42) Diabetic polyneuropathy associated with type 2 diabetes mellitus (HCC) Plan: Patient was seen and evaluated. Nails 1-5 bilateral were debrided in length and thickness. Patient was instructed on the continued importance of diabetic foot care along with proper diet and keeping their blood sugar under control to prevent complications. Patient is to [facility] in 3-4 months. Dali Sepulveda DPM AMB ROOMING INTAKE FLOWSHEET DATA Patient presents with: Left Foot - Established Patient, Diabetic Foot Care Right Foot - Established Patient, Diabetic Foot Care Pt presents today for bilateral diabetic nail care. She currently is living at [facility] where she is receiving rehab for a tibia fx. She plans to return home once she can ambulate. She presents in wheelchair. documented in this encounter [facility] 05-11-2023 Dlai Nava - 05/11/2023 3:49 PM EST Diabetes Foot Care Instructions When you have diabetes, proper foot care is very important. Poor foot care may lead to amputation of a foot or leg. As a person with diabetes, you are more vulnerable to foot problems, because diabetes can damage your nerves and reduce blood flow to your feet. Here are some diabetes foot care tips to follow: Wash and Dry Your Feet Daily Use mild soaps Use warm water Pat your skin dry; do not rub. Thoroughly dry your feet. After washing, use lotion on your feet to prevent cracking. Do not put lotion between your toes. Examine Your Feet Each Day Check the tops and bottoms of your feet. Have someone else look at your feet if you cannot see them. Check for dry, cracked skin. Look for blisters, cuts, scratches, or other sores. Check for redness, increased warmth, or tenderness when touching any area of your feet. Check for ingrown toenails, corns, and calluses. If you get a blister or sore from your shoes, do not pop it. Apply a bandage and wear a different pair of shoes. Take Care of Your Toenails Cut toenails after bathing, when they are soft. Cut toenails straight across and smooth with a nail file. Avoid cutting into the corners of toes. Do not cut cuticles. If you have neuropathy (or decreased sensation in your feet) a machine sign writer should always cut your toenails. Be Careful When Exercising Walk and exercise in comfortable shoes. Do not exercise when you have open sores on your feet. Protect Your Feet With Shoes and Socks Never go barefoot. Always protect your feet by wearing shoes or hard-soled slippers or footwear. Avoid shoes with high heels and pointed toes. Avoid shoes that expose your toes or heels (such as open-toed shoes or sandals). These types of shoes increase your risk for injury and potential infections. Try on new footwear with the type of socks you usually wear. Do not wear new shoes for more than an hour at a time. Change your socks daily. Look and feel inside your shoes before putting them on to make sure there are no foreign objects or rough areas. Avoid tight socks. Wear natural-fiber socks (cotton, wool, or a cotton-wool blend). Wear special shoes if your health care provider recommends them. Wear shoes/boots that will protect your feet from various weather conditions (cold, moisture, etc.). Make sure your shoes fit properly. If you have neuropathy (nerve damage), you may not notice that your shoes are too tight. Perform the footwear test described below. Footwear Test Use this simple test to see if your shoes fit correctly: Stand on a piece of paper. (Make sure you are standing and not sitting, because your foot changes shape when you stand.) Trace the outline of your foot. Trace the outline of your shoe. Compare the tracings: Is the shoe too narrow? Is your foot crammed into the shoe? The shoe should be at least 1/2 inch longer than your longest toe and as wide as your foot. Proper Shoe Choices The following types of shoes are best for people with diabetes Closed toes and heels Leather uppers without a seam inside At least 1/2 inch extra space at the end of your longest toe Inside of shoe should be soft with no rough areas Outer sole should be made of stiff material Shoes should be at least as wide as your feet Tips for Foot Care in Diabetes Don't wait to treat a minor foot problem if you have diabetes. Follow your health care provider's guidelines and first aid guidelines. Report foot injuries and infections to your health care provider immediately. Check water temperature with your elbow, not your foot. Do not use a heating pad on your feet. Do not cross your legs. Do not self-treat your corns, calluses, or other foot problems. Go to your health care provider or machine sign writer to treat these conditions. documented in this encounter [facility] 05-11-2023 Note HNO ID: [id number] Author: Nadiya Lucas LPN Service: ? Author Type: LICENSED NURSE Type: Progress Notes Filed: 05/22/2023 9:30 AM Note Text: Est. Pt. OV prior to Venofer infusion today. Nadiya Lucas LPN [facility] 05-11-2023 History of Present illness Narrative Pt refused observation due to machine sign writer appt at 1500 today. States that she feels fine after the infusion and will be in the building if something were to happen. Denies ever having a reaction with prior iron infusions. Delmi Landrum RN documented in this encounter [facility] 05-11-2023 Note [facility] 05-01-2023 Note [facility] 05-01-2023 History of Present illness Narrative (Elements copied from my note dated January 10, 2023, have been reviewed and updated where appropriate, and all reflect current assessment and medical decision making from today's encounter, May 01, 2023) HISTORY OF PRESENT ILLNESS: Coni Romero is a 82 year old female chronic anemia, stage IIIb chronic kidney disease, and iron deficiency. Her Hgb was down to 6.3 g/DL on 10/21/2020. Reportedly she received 3 units RBC transfusion. Upper and lower GI endoscopy were negative for bleeding. She also had received a small bowel capsule endoscopy at [place] she was also negative. Her transferrin saturation was 5% on 10/29/2020. Reportedly she had received iron infusion in the past. Also started monthly B12 injections and oral iron. For the past 2 years her anemia has been followed in the stable with Hgb consistently above 10 g/DL. She has been taking iron pills daily. Clinically she has been feeling well other than chronic fatigue. Patient states during the weekend, she felt extremely tired for 2 days. She came in earlier to have lab check which showed Hgb 9.6 on 11/07/2022. Denies chest pain, shortness of breath, diarrhea, constipation, melena, or hematochezia. Here for follow up, hgb down, no bleeding noted, sools neg for blood per pt. .labs from [facility] reviewed, hgb low 8 range there. Needs orthopedic surgery in June CLINICAL IMPRESSION: Mild chronic anemia, likely renal, worse past month RECOMMENDATION/PLAN: 1. Update iron B12 levels, BMP 2. Plan aranesp, venofer if iron low Written and verbal health teaching given to patient, patient verbalizes understanding and agrees with treatment plan. PAST MEDICAL HISTORY Diagnosis Date Acute gastritis without mention of hemorrhage Anemia, unspecified Anxiety state, unspecified Atrial fibrillation (HCC) B12 deficiency Diverticulosis of colon (without mention of hemorrhage) Esophageal reflux Gastritis Generalized osteoarthrosis, unspecified site Gout Hemorrhage of gastrointestinal tract, unspecified Hemorrhoids Iron deficiency anemia, unspecified Migraine without aura has been quiescent since menopause. Other and unspecified hyperlipidemia Type II or unspecified type diabetes mellitus without mention of complication, uncontrolled PAST SURGICAL HISTORY Procedure Laterality Date ARTHRP KNE CONDYLE&PLATU MEDIAL&LAT COMPARTMENTS 07/23/2007 Knee replacement, total right CARPAL TUNNEL 05/2014 left COLONOSCOPY FLX DX W/COLLJ SPEC WHEN PFRMD 04/14/2005 Colonoscopy COLONOSCOPY FLX DX W/COLLJ SPEC WHEN PFRMD 01/21/2016 Colonoscopy COLONOSCOPY GEN ANES 07/31/2020 External/internal hemorrhoids EGD 07/31/2020 Mild Gastritis EGD TRANSORAL BIOPSY SINGLE/MULTIPLE 06/25/2007 LAPAROSCOPIC CHOLECYSTECTOMY 01/08/2018 PAST SURGICAL HISTORY OF 1967 right breast cyst benign PAST SURGICAL HISTORY OF 2010 Rt carpal tunnel PAST SURGICAL HISTORY OF 12/2016 cataract surgery right eye TONSILLECTOMY PRIMARY/SECONDARY <AGE 12 Tonsillectomy FAMILY HISTORY Problem Relation Age of Onset Heart Mother Heart Father Pneumonia Sister No Known Problems Sister Heart Brother Cancer Maternal Grandfather Cancer Paternal Grandfather Colon Cancer No Family History Social History Tobacco Use Smoking status: Never Smokeless tobacco: Never Vaping Use Vaping Use: Never used Substance Use Topics Alcohol use: No Drug use: No ALLERGIES: ALLERGIES Allergen Reactions Iodine Rash, Unknown, Hives Metformin Other: See Comments Elevated renal function Simvastatin Contraindication-Medical Surgical statin myopathy Mfmduoo-Pka-Wmn Red* Other: See Comments myopathy Vytorin 10-10 [Ezet* Contraindication-Medical Surgical myopathy CURRENT OUTPATIENT MEDICATIONS: ASCORBIC ACID ORAL Take 500 mg by mouth once daily. OTC PRODUCT Use 2 Sprays in the nose every 4 hours. Deep Sea Nasal Sodium Chloride allopurinol (ZYLOPRIM) 100 mg tablet Take 200 mg by mouth once daily. ferrous sulfate 325 mg (65 mg iron) tablet Take 150 mg by mouth two times a day. cholecalciferol, Vitamin D3, (VITAMIN D3) 1,250 mcg (50,000 unit) cap capsule Take 1 capsule by mouth one time a week. amiodarone (PACERONE) 200 mg tablet Take 1 tablet by mouth once daily. colestipol (COLESTID) 1 gram tablet Take 1 tablet by mouth twice daily with meals. acetaminophen (TYLENOL) 500 mg tablet Take 1,000 mg by mouth every 8 hours as needed. clotrimazole (LOTRIMIN, CLOTRIM) 1 % cream Apply 1 application to affected area twice daily. (Patient taking differently: Apply 1 application to affected area as needed.) multivitamins w-iron(FLINTSTONES PLUS IRON CHEWABLE TAB) Take 1 tablet by mouth once daily. LORazepam (ATIVAN) 0.5 mg Take 0.5 mg by mouth as needed. MENTHOL-ZINC OXIDE TOPICAL Apply to affected area. naloxone 4 mg/actuation nasal spray (NARCAN) pantoprazole DR (PROTONIX) 40 mg tablet Take 40 mg by mouth once daily. sertraline (ZOLOFT) 100 mg tablet Take 100 mg by mouth once daily. sodium chloride 0.65 % nasal spray Sodium Chloride (Deep Sea Nasal) 0.65 % Aerosol,[place] Active 2 SPRAY NASAL EVERY 4 HOURS NEEDED 0 February 17, 2023 12:00am dulaglutide (TRULICITY) 1.5 mg/0.5 mL pen injector Inject 1.5 mg subcutaneously one time a week. Inject once per week. Discard Pen After gabapentin (NEURONTIN) 300 mg capsule Take 1 capsule by mouth three times daily for 180 days. gabapentin (NEURONTIN) 300 mg capsule Take 1 capsule by mouth three times daily for 14 days. carvedilol (COREG) 25 mg tablet Take 1 tablet by mouth twice daily. (Patient not taking: Reported on 04/05/2023) pioglitazone (ACTOS) 30 mg tablet Take 1 tablet by mouth once daily. glimepiride (AMARYL) 2 mg tablet Take 1 tablet by mouth daily with breakfast. WALKER ROLLATOR SEAT WITH 6 WHEELS - RED Use as directed. guaiFENesin (MUCINEX) 600 mg 12 hr tablet Take 2 tablets by mouth twice daily. (Patient not taking: Reported on 04/05/2023) levothyroxine (SYNTHROID) 137 mcg tablet Take 1 tablet by mouth once daily. Take on empty stomach. For thyroid. blood sugar diagnostic (BLOOD GLUCOSE TEST) test strip Test blood sugar(s) onetimes daily. Dx: Other DM Code E11.49 Insulin: Yes Lancets lancets Test glucose 2x/daily, 250.02, insulin use: yes traMADol (ULTRAM) 50 mg tablet Take 50 mg by mouth as needed. amLODIPine (NORVASC) 5 mg tablet Take 0.5 tablets by mouth once daily. (Patient not taking: Reported on 04/05/2023) lansoprazole (PREVACID) 30 mg capsule TAKE 1 CAPSULE EVERY MORNING BEFORE EATING (Patient not taking: Reported on 04/05/2023) glimepiride (AMARYL) 2 mg tablet Take 1 tablet by mouth daily with breakfast. albuterol (PROVENTIL) 2.5 mg /3 mL (0.083 %) nebulizer solution Use 3 mL via nebulizer every 4 hours as needed for wheezing/shortness of breath. Use over 5-15minutes. iron polysaccharide complex (IFEREX 150) 150 mg iron capsule Take 1 capsule by mouth twice daily. folic acid 1 mg tablet Take 1 tablet by mouth once daily. Syringe with Needle, Disp, (BD LUER-TALON SYRINGE) 3 mL 25 gauge x 1 USE SYRINGE TO INJECT B12 ONCE A MONTH cyanocobalamin 1,000 mcg/mL INJECT 1 MILLILITER INTRAMUSCULARLY ONCE A MONTH (Patient not taking: Reported on 04/05/2023) Insulin [place], Disposable, (BD ULTRA-FINE HORTENCIA PEN NEEDLE) 32 gauge x 5/32 ndle Use one needle for each dose. 3x/day. E11.65 E11.49 triamcinolone acetonide (KENALOG) 0.1 % cream apply to affected area twice a day blood sugar diagnostic (EASYMAX N) test strip Frequency of testin times daily DX E11.49 Insulin YES psyllium Husk (FIBER-CAPS) 0.52 g ORAL capsule Take 2 capsules by mouth once daily. (Patient not taking: Reported on 04/05/2023) REVIEW OF SYSTEMS: GENERAL: No fever, night sweats, weight loss or malaise. All other reviewed and negative other than HPI. PHYSICAL EXAMINATION: VITAL SIGNS: BP 105/57 Pulse 87 Temp 97.5 Wt 0 lb (0.0kg) SpO2 96% GENERAL APPEARANCE: Well appearing, in no acute distress, alert and oriented x3, well-hydrated, well nourished. I spent a total of 30 minutes on the date of the service which included preparing to see the patient, [id number] patient care, completing clinical documentation, obtaining and/or reviewing separately obtained history, performing a medically appropriate examination, counseling and educating the patient/family/caregiver, ordering medications, tests, or procedures, independently interpreting results (not separately reported), and communicating results to the patient/family/caregiver. Electronically Signed: Dion Chavarria MD May 01, 2023 documented in this encounter [facility] 04-05-2023 Note [facility] 04-05-2023 History of Present illness Narrative Patient presents with: Hospital F/U HPI: Patient presents today for office visit for hospital follow up. -was requested for surgical clearance by [facility]. Hospitalized for fracture of the right tibial shaft. Moved to tcu for rehab. Had labs done currently at [facility]. Discussed that her clearance should usually should come from her in house doctor at [facility]. They are monitoring labs. They were concerned about her renal function has had anemia of chronic disease and ckd and had seen nephrology, Dr. Benavidez at [facility] previously. She had elected to follow with us up until her accident instead of traveling to nephrology out of the area. Also seeing [facility] hematology for her anemia. Discussed that they may want to have nephrology see her before surgery since they have not see her in several years. Just saw [facility] in August. No chest pain or shortness of breath. No edema. Will need continued rehab after surgery. I do not have current labs etc. No previous issues with anesthesia. No previous hx of anesthesia problems. No current cough or wheeze. Does use cpap so will need continued post op. MEDICATIONS: Current Outpatient Medications Medication Sig allopurinol (ZYLOPRIM) 100 mg tablet Take 200 mg by mouth once daily. LORazepam (ATIVAN) 0.5 mg Take 0.5 mg by mouth as needed. MENTHOL-ZINC OXIDE TOPICAL Apply to affected area. naloxone 4 mg/actuation nasal spray (NARCAN) pantoprazole DR (PROTONIX) 40 mg tablet Take 40 mg by mouth once daily. sertraline (ZOLOFT) 100 mg tablet Take 100 mg by mouth once daily. sodium chloride 0.65 % nasal spray Sodium Chloride (Deep Sea Nasal) 0.65 % Aerosol,[place] Active 2 SPRAY NASAL EVERY 4 HOURS NEEDED 0 February 17, 2023 12:00am dulaglutide (TRULICITY) 1.5 mg/0.5 mL pen injector Inject 1.5 mg subcutaneously one time a week. Inject once per week. Discard Pen After gabapentin (NEURONTIN) 300 mg capsule Take 1 capsule by mouth three times daily for 180 days. pioglitazone (ACTOS) 30 mg tablet Take 1 tablet by mouth once daily. glimepiride (AMARYL) 2 mg tablet Take 1 tablet by mouth daily with breakfast. WALKER ROLLATOR SEAT WITH 6 WHEELS - RED Use as directed. levothyroxine (SYNTHROID) 137 mcg tablet Take 1 tablet by mouth once daily. Take on empty stomach. For thyroid. blood sugar diagnostic (BLOOD GLUCOSE TEST) test strip Test blood sugar(s) onetimes daily. Dx: Other DM Code E11.49 Insulin: Yes Lancets lancets Test glucose 2x/daily, 250.02, insulin use: yes traMADol (ULTRAM) 50 mg tablet Take 50 mg by mouth as needed. cholecalciferol, Vitamin D3, (VITAMIN D3) 1,250 mcg (50,000 unit) cap capsule Take 1 capsule by mouth one time a week. amiodarone (PACERONE) 200 mg tablet Take 1 tablet by mouth once daily. albuterol (PROVENTIL) 2.5 mg /3 mL (0.083 %) nebulizer solution Use 3 mL via nebulizer every 4 hours as needed for wheezing/shortness of breath. Use over 5-15minutes. iron polysaccharide complex (IFEREX 150) 150 mg iron capsule Take 1 capsule by mouth twice daily. folic acid 1 mg tablet Take 1 tablet by mouth once daily. colestipol (COLESTID) 1 gram tablet Take 1 tablet by mouth twice daily with meals. Syringe with Needle, Disp, (BD LUER-TALON SYRINGE) 3 mL 25 gauge x 1 USE SYRINGE TO INJECT B12 ONCE A MONTH acetaminophen (TYLENOL) 500 mg tablet Take 1,000 mg by mouth every 8 hours as needed. Insulin [place], Disposable, (BD ULTRA-FINE HORTENCIA PEN NEEDLE) 32 gauge x 5/32 ndle Use one needle for each dose. 3x/day. E11.65 E11.49 clotrimazole (LOTRIMIN, CLOTRIM) 1 % cream Apply 1 application to affected area twice daily. (Patient taking differently: Apply 1 application to affected area as needed.) triamcinolone acetonide (KENALOG) 0.1 % cream apply to affected area twice a day blood sugar diagnostic (EASYMAX N) test strip Frequency of testin times daily DX E11.49 Insulin YES multivitamins w-iron(FLINTSTONES PLUS IRON CHEWABLE TAB) Take one(1) tablet daily with meal. gabapentin (NEURONTIN) 300 mg capsule Take 1 capsule by mouth three times daily for 14 days. carvedilol (COREG) 25 mg tablet Take 1 tablet by mouth twice daily. (Patient not taking: Reported on 04/05/2023) ferrous sulfate 325 mg (65 mg iron) tablet Take 1 tablet by mouth twice daily. (Patient not taking: Reported on 01/20/2023) guaiFENesin (MUCINEX) 600 mg 12 hr tablet Take 2 tablets by mouth twice daily. (Patient not taking: Reported on 04/05/2023) amLODIPine (NORVASC) 5 mg tablet Take 0.5 tablets by mouth once daily. (Patient not taking: Reported on 04/05/2023) lansoprazole (PREVACID) 30 mg capsule TAKE 1 CAPSULE EVERY MORNING BEFORE EATING (Patient not taking: Reported on 04/05/2023) glimepiride (AMARYL) 2 mg tablet Take 1 tablet by mouth daily with breakfast. cyanocobalamin 1,000 mcg/mL INJECT 1 MILLILITER INTRAMUSCULARLY ONCE A MONTH (Patient not taking: Reported on 04/05/2023) psyllium Husk (FIBER-CAPS) 0.52 g ORAL capsule Take 2 capsules by mouth once daily. (Patient not taking: Reported on 04/05/2023) Current Facility-Administered Medications Medication Dose Route Frequency cyanocobalamin 1,000 mcg injection 1,000 mcg INTRAMUSCULAR q 4 WEEKS ALLERGIES: ALLERGIES Allergen Reactions Iodine Rash, Unknown, Hives Metformin Other: See Comments Elevated renal function Simvastatin Contraindication-Medical Surgical statin myopathy Cihycae-Vtv-Apb Red* Other: See Comments myopathy Vytorin 10-10 [Ezet* Contraindication-Medical Surgical myopathy PAST MEDICAL HISTORY Diagnosis Date Acute gastritis without mention of hemorrhage Anemia, unspecified Anxiety state, unspecified Atrial fibrillation (HCC) B12 deficiency Diverticulosis of colon (without mention of hemorrhage) Esophageal reflux Gastritis Generalized osteoarthrosis, unspecified site Gout Hemorrhage of gastrointestinal tract, unspecified Hemorrhoids Iron deficiency anemia, unspecified Migraine without aura has been quiescent since menopause. Other and unspecified hyperlipidemia Type II or unspecified type diabetes mellitus without mention of complication, uncontrolled PAST SURGICAL HISTORY Procedure Laterality Date ARTHRP KNE CONDYLE&PLATU MEDIAL&LAT COMPARTMENTS 07/23/2007 Knee replacement, total right CARPAL TUNNEL 05/2014 left COLONOSCOPY FLX DX W/COLLJ SPEC WHEN PFRMD 04/14/2005 Colonoscopy COLONOSCOPY FLX DX W/COLLJ SPEC WHEN PFRMD 01/21/2016 Colonoscopy COLONOSCOPY GEN ANES 07/31/2020 External/internal hemorrhoids EGD 07/31/2020 Mild Gastritis EGD TRANSORAL BIOPSY SINGLE/MULTIPLE 06/25/2007 LAPAROSCOPIC CHOLECYSTECTOMY 01/08/2018 PAST SURGICAL HISTORY OF 1967 right breast cyst benign PAST SURGICAL HISTORY OF 2010 Rt carpal tunnel PAST SURGICAL HISTORY OF 12/2016 cataract surgery right eye TONSILLECTOMY PRIMARY/SECONDARY <AGE 12 Tonsillectomy FAMILY HISTORY Problem Relation Age of Onset Heart Mother Heart Father Pneumonia Sister No Known Problems Sister Heart Brother Cancer Maternal Grandfather Cancer Paternal Grandfather Colon Cancer No Family History Social History Tobacco Use Smoking status: Never Smokeless tobacco: Never Vaping Use Vaping Use: Never used Substance Use Topics Alcohol use: No Drug use: No Reviewed current medications, allergies, past medical history, surgical history, family history and social history today. REVIEW OF SYSTEMS As far as she knows her sugars have been ok. All other reviewed and negative other than HPI. VITALS: BP (!) 120/48 Pulse 80 Ht 172.7 cm (5' 8 ) Wt 94.3 kg (208 lb) SpO2 95% BMI 31.63 kg/m Last 4 Encounter Wt Readings: Date: Wt: 01/10/2023 90.3 kg (199 lb) 01/02/2023 94.1 kg (207 lb 6.4 oz) 12/10/2022 92.5 kg (204 lb) 11/10/2022 92.5 kg (204 lb) PHYSICAL EXAMINATION: General appearance: Well appearing, alert, in no acute distress, well-hydrated, well nourished. Skin: Skin color, texture, turgor normal, no suspicious rashes or lesions Head: Normocephalic, no masses, lesions, tenderness or abnormalities Lungs: Lungs clear to auscultation. No wheezing, rhonchi, rales Heart: RRR, II/ murmur Abdomen: Normal abdominal exam, Abdomen soft, non-tender. Bowel sounds normal. No masses, organomegaly Extremities: No deformities, edema, skin discoloration, clubbing or cyanosis. Good capillary refill. Brace in place. ASSESSMENT/PLAN: 1. Closed nondisplaced transverse fracture of shaft of right tibia with delayed healing, subsequent encounter - ICD9: V54.16, ICD10: S82.224G (primary diagnosis) - asked by ortho for medical clearance for surgery. She is still actually an inpatient at an [facility]. Final clearance would also need to be obtained from her primary care physician currently in charge of her care at [facility], Dr. Sharpe. She would need clearance from Cardiology. If her renal function remains poor, she may need clearance from nephrology. She has previously seen Dr. Benavidez at [facility]. She also may need clearance from [facility] hematology here in [place]. She is on cpap so that will also need continued. 2. Type 2 diabetes mellitus 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 polyneuropathy, without long-term current use of insulin (HCC) - ICD9: 250.60, 357.2, ICD10: E11.42 3. Paroxysmal atrial fibrillation (HCC) - ICD9: 427.31, ICD10: I48.0 4. Secondary hypertension due to renal disease - ICD9: 405.99, ICD10: I15.1 5. Cardiomyopathy, nonischemic (HCC) - ICD9: 425.4, ICD10: I42.8 6. Type 2 diabetes mellitus 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 peripheral angiopathy without gangrene, without long-term current use of insulin (HCC) - ICD9: 250.70, 443.81, ICD10: E11.51 7. Heart failure, unspecified HF chronicity, unspecified heart failure type (HCC) - ICD9: 428.9, ICD10: I50.9 8. DAYANA (obstructive sleep apnea) - ICD9: 327.23, ICD10: G47.33 9. B12 deficiency - ICD9: 266.2, ICD10: E53.8 10. Stage 3b chronic kidney disease (HCC) - ICD9: 585.3, ICD10: N18.32 11. Hyperparathyroidism due to vitamin D deficiency (HCC) - ICD9: 252.02, ICD10: E21.1 12. Other specified hypothyroidism - ICD9: 244.8, ICD10: E03.8 13. Iron deficiency anemia, unspecified iron deficiency anemia type - ICD9: 280.9, ICD10: D50.9 14. Stenosis of right carotid artery - ICD9: 433.10, ICD10: I65.21 Stefan Moore MD Rto once discharged from [facility]. documented in this encounter [facility] 03-30-2023 Miscellaneous Notes Spoke with pt and she is still at [facility]. a 40 min Hospital FU booked for 04-06-23. Pt is checking with [facility] regarding transportation. Brittany Colby LPN TC to pt, left message to return call to office. Yusuf You LPN Needs follow up visit.-40 minute hospital/ECF follow up Type of form: Surgery Clearance Form received via fax When form is completed, Fax form to [phone] Form has been forwarded to Physician Desk: Dr. Oscar Francis LPN Pt calls to report she had appt with [facility] today for fracture of tibia and fibula. Pt reports she fell at the beginning of Feb. Pt reports she did break the bone near the knee. Pt reports she has to have surgery and [facility] is going to send OV notes to pcp. HERO Rodriguez at [facility] advised pt that kidney function is not good and pt needs to f/u with kidney specialist. Pt wanted Dr. Moore to know what is going on. Kaycee Contreras LPN documented in this encounter [facility] 01-20-2023 Note [facility] 01-20-2023 Note [facility] 01-20-2023 Note [facility] 01-20-2023 History of Present illness Narrative Radiology Service Progress Note PATIENT NAME: Coni Romero DATE OF SERVICE: January 20, 2023 TIME: 2:51 PM PATIENT IDENTITY VERIFICATION COMPLETED USING TWO (2) IDENTIFIERS: Name and Date of confirmed by patient verbally. FALL SCREENING: Has the patient had 2 falls in the last year or 1 fall with injury or currently using an Ambulatory Assistive Device (Walker, Cane, Wheelchair, Crutches, etc.)? Yes, Patient High Risk for Falls What interventions were put in place to prevent falls during this visit? Offered Assistance with Transfers/Clothing and Instructed Patient to Remain Seated (Not on Exam Table) Until Exam PATIENT GENDER DATA: Female. status: : No status: NO. PATIENT RELEVANT IMPLANT DATA REVIEWED: Not Applicable RADIOLOGY DEPARTMENT: General X-ray: Exam(s) Completed: Lower Extremity X-Ray(s): Toes, Right PERIPHERAL IV DATA: Not applicable SIGNED BY: RT John(R) January 20, 2023 2:51 PM documented in this encounter [facility] 01-13-2023 Note [facility] 01-13-2023 History of Present illness Narrative Patient presents for B-12 injection. Denies any problems at this time. Patient instructed on any SE of medication, verbalized understanding and agreed to proceed with treatment. Tolerated injection well. Erica Colorado LPN documented in this encounter [facility] 01-10-2023 Note [facility] 01-10-2023 History of Present illness Narrative HISTORY OF PRESENT ILLNESS: Coni Romero is a 82 year old female chronic anemia, stage IIIb chronic kidney disease, and iron deficiency. Her Hgb was down to 6.3 g/DL on 10/21/2020. Reportedly she received 3 units RBC transfusion. Upper and lower GI endoscopy were negative for bleeding. She also had received a small bowel capsule endoscopy at [place] she was also negative. Her transferrin saturation was 5% on 10/29/2020. Reportedly she had received iron infusion in the past. Also started monthly B12 injections and oral iron. For the past 2 years her anemia has been followed in the stable with Hgb consistently above 10 g/DL. She has been taking iron pills daily. Clinically she has been feeling well other than chronic fatigue. Patient states during the weekend, she felt extremely tired for 2 days. She came in earlier to have lab check which showed Hgb 9.6 on 11/07/2022. Denies chest pain, shortness of breath, diarrhea, constipation, melena, or hematochezia. Here for follow up, hgb stable, iron indices reviewed. CLINICAL IMPRESSION: Mild chronic anemia, likely renal RECOMMENDATION/PLAN: 1. She'll stop the po iron supplements 2. Recheck labs 2 months, plan epo if hgb drifts below 10 Written and verbal health teaching given to patient, patient verbalizes understanding and agrees with treatment plan. PAST MEDICAL HISTORY Diagnosis Date Acute gastritis without mention of hemorrhage Anemia, unspecified Anxiety state, unspecified Atrial fibrillation (HCC) B12 deficiency Diverticulosis of colon (without mention of hemorrhage) Esophageal reflux Gastritis Generalized osteoarthrosis, unspecified site Gout Hemorrhage of gastrointestinal tract, unspecified Hemorrhoids Iron deficiency anemia, unspecified Migraine without aura has been quiescent since menopause. Other and unspecified hyperlipidemia Type II or unspecified type diabetes mellitus without mention of complication, uncontrolled PAST SURGICAL HISTORY Procedure Laterality Date ARTHRP KNE CONDYLE&PLATU MEDIAL&LAT COMPARTMENTS 07/23/2007 Knee replacement, total right CARPAL TUNNEL 05/2014 left COLONOSCOPY FLX DX W/COLLJ SPEC WHEN PFRMD 04/14/2005 Colonoscopy COLONOSCOPY FLX DX W/COLLJ SPEC WHEN PFRMD 01/21/2016 Colonoscopy COLONOSCOPY GEN ANES 07/31/2020 External/internal hemorrhoids EGD 07/31/2020 Mild Gastritis EGD TRANSORAL BIOPSY SINGLE/MULTIPLE 06/25/2007 LAPAROSCOPIC CHOLECYSTECTOMY 01/08/2018 PAST SURGICAL HISTORY OF 1967 right breast cyst benign PAST SURGICAL HISTORY OF 2010 Rt carpal tunnel PAST SURGICAL HISTORY OF 12/2016 cataract surgery right eye TONSILLECTOMY PRIMARY/SECONDARY <AGE 12 Tonsillectomy FAMILY HISTORY Problem Relation Age of Onset Heart Mother Heart Father Pneumonia Sister No Known Problems Sister Heart Brother Cancer Maternal Grandfather Cancer Paternal Grandfather Colon Cancer No Family History Social History Tobacco Use Smoking status: Never Smokeless tobacco: Never Vaping Use Vaping Use: Never used Substance Use Topics Alcohol use: No Drug use: No ALLERGIES: ALLERGIES Allergen Reactions Iodine Rash, Unknown, Hives Metformin Other: See Comments Elevated renal function Simvastatin Contraindication-Medical Surgical statin myopathy Zrxtnly-Vhv-Vpz Red* Other: See Comments myopathy Vytorin 10-10 [Ezet* Contraindication-Medical Surgical myopathy CURRENT OUTPATIENT MEDICATIONS: carvedilol (COREG) 25 mg tablet^Take 1 tablet by mouth twice daily.^Disp: 180 tablet^Rfl: 0 pioglitazone (ACTOS) 30 mg tablet^Take 1 tablet by mouth once daily.^Disp: 90 tablet^Rfl: 0 ferrous sulfate 325 mg (65 mg iron) tablet^Take 1 tablet by mouth twice daily.^Disp: ^Rfl: glimepiride (AMARYL) 2 mg tablet^Take 1 tablet by mouth daily with breakfast.^Disp: 90 tablet^Rfl: 3 WALKER ROLLATOR SEAT WITH 6 WHEELS - RED^Use as directed.^Disp: 1 Each^Rfl: 0 levothyroxine (SYNTHROID) 137 mcg tablet^Take 1 tablet by mouth once daily. Take on empty stomach. For thyroid.^Disp: 90 tablet^Rfl: 3 blood sugar diagnostic (BLOOD GLUCOSE TEST) test strip^Test blood sugar(s) onetimes daily. Dx: Other DM Code E11.49 Insulin: Yes^Disp: 50 Strip^Rfl: 11 Lancets lancets^Test glucose 2x/daily, 250.02, insulin use: yes^Disp: 100 Each^Rfl: 11 traMADol (ULTRAM) 50 mg tablet^Take 50 mg by mouth as needed.^Disp: ^Rfl: amLODIPine (NORVASC) 5 mg tablet^Take 0.5 tablets by mouth once daily.^Disp: 15 tablet^Rfl: 11 gabapentin (NEURONTIN) 300 mg capsule^Take 1 capsule by mouth three times daily for 180 days.^Disp: 270 capsule^Rfl: 1 lansoprazole (PREVACID) 30 mg capsule^TAKE 1 CAPSULE EVERY MORNING BEFORE EATING^Disp: 90 capsule^Rfl: 1 glimepiride (AMARYL) 2 mg tablet^Take 1 tablet by mouth daily with breakfast.^Disp: 90 tablet^Rfl: 1 amiodarone (PACERONE) 200 mg tablet^Take 1 tablet by mouth once daily.^Disp: 90 tablet^Rfl: 1 albuterol (PROVENTIL) 2.5 mg /3 mL (0.083 %) nebulizer solution^Use 3 mL via nebulizer every 4 hours as needed for wheezing/shortness of breath. Use over 5-15minutes.^Disp: 90 mL^Rfl: 2 iron polysaccharide complex (IFEREX 150) 150 mg iron capsule^Take 1 capsule by mouth twice daily.^Disp: 180 capsule^Rfl: 3 folic acid 1 mg tablet^Take 1 tablet by mouth once daily.^Disp: 90 tablet^Rfl: 3 dulaglutide (TRULICITY) 1.5 mg/0.5 mL pen injector^Inject 1.5 mg subcutaneously one time a week. Inject once per week. Discard Pen After^Disp: 6 mL^Rfl: 3 colestipol (COLESTID) 1 gram tablet^Take 1 tablet by mouth twice daily with meals.^Disp: 180 tablet^Rfl: 3 Syringe with Needle, Disp, (BD LUER-TALON SYRINGE) 3 mL 25 gauge x 1 ^USE SYRINGE TO INJECT B12 ONCE A MONTH^Disp: 12 Each^Rfl: 0 cyanocobalamin 1,000 mcg/mL^INJECT 1 MILLILITER INTRAMUSCULARLY ONCE A MONTH^Disp: 1 mL^Rfl: 12 acetaminophen (TYLENOL) 500 mg tablet^Take 1,000 mg by mouth every 8 hours as needed. ^Disp: ^Rfl: Insulin [place], Disposable, (BD ULTRA-FINE HORTENCIA PEN NEEDLE) 32 gauge x 5/32 ndle^Use one needle for each dose. 3x/day. E11.65 E11.49^Disp: 200 Each^Rfl: 11 clotrimazole (LOTRIMIN, CLOTRIM) 1 % cream^Apply 1 application to affected area twice daily.^Disp: 30 g^Rfl: 1 (Patient taking differently: Apply 1 application to affected area as needed.) triamcinolone acetonide (KENALOG) 0.1 % cream^apply to affected area twice a day^Disp: 15 g^Rfl: 1 blood sugar diagnostic (EASYMAX N) test strip^Frequency of testin times daily DX E11.49 Insulin YES^Disp: 150 Each^Rfl: 11 psyllium Husk (FIBER-CAPS) 0.52 g ORAL capsule^Take 2 capsules by mouth once daily.^Disp: ^Rfl: 0 multivitamins w-iron(FLINTSTONES PLUS IRON CHEWABLE TAB)^Take one(1) tablet daily with meal.^Disp: ^Rfl: 0 guaiFENesin (MUCINEX) 600 mg 12 hr tablet^Take 2 tablets by mouth twice daily.^Disp: 40 tablet^Rfl: 0 (Patient taking differently: Take 1,200 mg by mouth twice daily. PRN) cholecalciferol, Vitamin D3, (VITAMIN D3) 1,250 mcg (50,000 unit) cap capsule^Take 1 capsule by mouth one time a week.^Disp: 12 capsule^Rfl: 3 REVIEW OF SYSTEMS: GENERAL: No fever, night sweats, weight loss or malaise. All other reviewed and negative other than HPI. PHYSICAL EXAMINATION: VITAL SIGNS: BP 128/66 Pulse 75 Temp (Src) 97 (Temporal) Wt 199 lb (90.3kg) SpO2 97% GENERAL APPEARANCE: Well appearing, in no acute distress, alert and oriented x3, well-hydrated, well nourished. I spent a total of 30 minutes on the date of the service which included preparing to see the patient, [id number] patient care, completing clinical documentation, obtaining and/or reviewing separately obtained history, performing a medically appropriate examination, counseling and educating the patient/family/caregiver, ordering medications, tests, or procedures, independently interpreting results (not separately reported), and communicating results to the patient/family/caregiver. Electronically Signed: Dion Chavarria MD January 10, 2023 12:24 PM documented in this encounter [facility] 01-02-2023 Note [facility] 01-02-2023 Instructions Marii Ruiz, RD - 01/02/2023 1:25 PM EDT Change to soy milk in cereal Change to lower carb protein supplements, aim for 3 per day Premier, Corelife, Fair life, Equate Watch sodium intake aim for ~1500 mg sodium, refer to handout provided Consider seated exercises as available on Youtube Include protein in meals, meat, cheeses etc. documented in this encounter [facility] 01-02-2023 History of Present illness Narrative Nutrition Therapy Initial Assessment Nutrition Diagnosis: Behavioral-Environmental: Food and nutrition related knowledge deficit, related to, lack of prior exposure to information , as evidenced by change in existing diagnosis or condition. RECOMMENDED MALNUTRITION DIAGNOSIS: NO MALNUTRITION IDENTIFIED NUTRITION CARE PLAN Nutrition Intervention 01/02/2023: modify type and amount of food or beverage Change to soy milk in cereal Change to lower carb protein supplements, aim for 3 per day Premier, Corelife, Fair life, Equate Watch sodium intake aim for ~1500 mg sodium, refer to handout provided Consider seated exercises as available on Youtube Include protein in each meal, meats, cheeses et.c Nutrition Monitoring & Evaluation: labs in target range Need for Follow up: 4-6 weeks or as needed Patient presents for initial MNT as relates to low albumin, needs to have hip replacement but unable to with low albumin. Has added Boost, concerned about nutrition supplement with goal for weight loss. Has been trying to lose weight, belongs to [employer]. Has a goal weight of 190. Intake includes three meals, no snacks for approx 5 oz protein. Add Boost high protein. Limited daily activities. Does use a pool for exercise one x per week and plans to add another day. 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 Resting Metabolic Rate: 1454 Malnutrition Screening Significant unintentional weight loss? No Eating less than 75% of usual intake for more than 2 weeks? No Potential Signs of Inflammation: no identifiable sources Education Materials Provided: sodium controlled diet READINESS TO LEARN Cognitive ability: Alert and oriented Motivation to learn: Interested Family support: Unable to assess - Family not present Instruction provided to: Patient Patient learns best by: Individual Instruction Factors affecting learning: None Physical limitations affecting learning: None Referred/Supervised by: Oscar/Oscar VALDEZ Billing Type: Initial Assess/15 min 2 units SIGNATURE: Marii Ruiz RD PATIENT NAME: Coni Romero DATE: January 02, 2023 TIME: 1:00 PM documented in this encounter [facility] 12-22-2022 Miscellaneous Notes Patient has been identified by name and date of : Yes, Provider Dr. Moore Date 12/22/22 Time 0815 Patient phones for refill(s): Requested Prescriptions Pending Prescriptions Disp Refills carvedilol (COREG) 25 mg tablet 180 tablet 0 Sig: Take 1 tablet by mouth twice daily. pioglitazone (ACTOS) 30 mg tablet 90 tablet 0 Sig: Take 1 tablet by mouth once daily. Date of last office visit in primary care: 12/10/22 Future visit: 02/23/23 Last 2 Encounter Wt Readings: Date: Wt: 12/10/2022 92.5 kg (204 lb) 11/10/2022 92.5 kg (204 lb) Previous labs/tests for medication: Diabetes: Hemoglobin A1C (%) Date Value 12/10/2022 6.4 08/31/2022 6.3 07/29/2021 6.0 01/22/2021 6.0 Blood Pressure: BUN (mg/dL) Date Value 08/31/2022 26 04/02/2021 33 Sodium (mmol/L) Date Value 08/31/2022 140 04/02/2021 140 Last 1 Encounter BP Readings: Date: BP: 12/10/2022 140/58 Please advise. Thank you. Camryn Kumar, RN documented in this encounter [facility] 12-19-2022 Miscellaneous Notes Order was released for the urine micro. Will need a new order please. documented in this encounter [facility] 12-16-2022 Note [facility] 12-16-2022 History of Present illness Narrative Patient presents for B-12 injection. Denies any problems at this time. Patient instructed on any SE of medication, verbalized understanding and agreed to proceed with treatment. Tolerated injection well. Erica Colorado LPN documented in this encounter [facility] 12-12-2022 Miscellaneous Notes Faxed to Ibeth Cueva. Her labs are actually significantly better. Fax copy of labs to her ortho documented in this encounter [facility] 12-10-2022 Note [facility] 12-10-2022 History of Present illness Narrative Patient presents with: Follow Up HPI: Patient presents today for office visit for follow up. Would like to discuss recent labs ordered by Ibeth Cueva. She was scheduled for hip replacement but was held due to her labs. Renal function show her gfr and creat are actually slightly better. has seen nephrology in the past and she elected to follow up with us after discussion with her kidney Dr. She is more anemic and her albumin has dropped from last year to 2.9. She does not eat much protein. Appetite is ok. They wanted her to start boost BID. No diarrhea. Has urinary issues. No abd pain. No black or bloody stools. Sees hematology for her anemia. Using cpap. Is benefiting from it. No chest pain or shortness of breath. Sees cardiology regularly. Sugars have been good. MEDICATIONS: Current Outpatient Medications Medication Sig ferrous sulfate 325 mg (65 mg iron) tablet Take 1 tablet by mouth twice daily. WALKER ROLLATOR SEAT WITH 6 WHEELS - RED Use as directed. guaiFENesin (MUCINEX) 600 mg 12 hr tablet Take 2 tablets by mouth twice daily. (Patient taking differently: Take 1,200 mg by mouth twice daily. PRN) levothyroxine (SYNTHROID) 137 mcg tablet Take 1 tablet by mouth once daily. Take on empty stomach. For thyroid. blood sugar diagnostic (BLOOD GLUCOSE TEST) test strip Test blood sugar(s) onetimes daily. Dx: Other DM Code E11.49 Insulin: Yes Lancets lancets Test glucose 2x/daily, 250.02, insulin use: yes traMADol (ULTRAM) 50 mg tablet Take 50 mg by mouth as needed. amLODIPine (NORVASC) 5 mg tablet Take 0.5 tablets by mouth once daily. cholecalciferol, Vitamin D3, (VITAMIN D3) 1,250 mcg (50,000 unit) cap capsule Take 1 capsule by mouth one time a week. gabapentin (NEURONTIN) 300 mg capsule Take 1 capsule by mouth three times daily for 180 days. carvedilol (COREG) 25 mg tablet Take 1 tablet by mouth twice daily. pioglitazone (ACTOS) 30 mg tablet Take 1 tablet by mouth once daily. lansoprazole (PREVACID) 30 mg capsule TAKE 1 CAPSULE EVERY MORNING BEFORE EATING glimepiride (AMARYL) 2 mg tablet Take 1 tablet by mouth daily with breakfast. amiodarone (PACERONE) 200 mg tablet Take 1 tablet by mouth once daily. albuterol (PROVENTIL) 2.5 mg /3 mL (0.083 %) nebulizer solution Use 3 mL via nebulizer every 4 hours as needed for wheezing/shortness of breath. Use over 5-15minutes. iron polysaccharide complex (IFEREX 150) 150 mg iron capsule Take 1 capsule by mouth twice daily. folic acid 1 mg tablet Take 1 tablet by mouth once daily. dulaglutide (TRULICITY) 1.5 mg/0.5 mL pen injector Inject 1.5 mg subcutaneously one time a week. Inject once per week. Discard Pen After colestipol (COLESTID) 1 gram tablet Take 1 tablet by mouth twice daily with meals. glimepiride (AMARYL) 2 mg tablet Take 1 tablet by mouth daily with breakfast. Syringe with Needle, Disp, (BD LUER-TALON SYRINGE) 3 mL 25 gauge x 1 USE SYRINGE TO INJECT B12 ONCE A MONTH cyanocobalamin 1,000 mcg/mL INJECT 1 MILLILITER INTRAMUSCULARLY ONCE A MONTH acetaminophen (TYLENOL) 500 mg tablet Take 1,000 mg by mouth every 8 hours as needed. Insulin [place], Disposable, (BD ULTRA-FINE HORTENCIA PEN NEEDLE) 32 gauge x ndle Use one needle for each dose. 3x/day. E11.65 E11.49 clotrimazole (LOTRIMIN, CLOTRIM) 1 % cream Apply 1 application to affected area twice daily. (Patient taking differently: Apply 1 application to affected area as needed.) triamcinolone acetonide (KENALOG) 0.1 % cream apply to affected area twice a day blood sugar diagnostic (EASYMAX N) test strip Frequency of testin times daily DX E11.49 Insulin YES psyllium Husk (FIBER-CAPS) 0.52 g ORAL capsule Take 2 capsules by mouth once daily. multivitamins w-iron(FLINTSTONES PLUS IRON CHEWABLE TAB) Take one(1) tablet daily with meal. Current Facility-Administered Medications Medication Dose Route Frequency cyanocobalamin 1,000 mcg injection 1,000 mcg INTRAMUSCULAR q 4 WEEKS ALLERGIES: ALLERGIES Allergen Reactions Iodine Rash, Unknown, Hives Metformin Other: See Comments Elevated renal function Simvastatin Contraindication-Medical Surgical statin myopathy Csqisuo-Opc-Ogh Red* Other: See Comments myopathy Vytorin 10-10 [Ezet* Contraindication-Medical Surgical myopathy PAST MEDICAL HISTORY Diagnosis Date Acute gastritis without mention of hemorrhage Anemia, unspecified Anxiety state, unspecified Atrial fibrillation (HCC) B12 deficiency Diverticulosis of colon (without mention of hemorrhage) Esophageal reflux Gastritis Generalized osteoarthrosis, unspecified site Gout Hemorrhage of gastrointestinal tract, unspecified Hemorrhoids Iron deficiency anemia, unspecified Migraine without aura has been quiescent since menopause. Other and unspecified hyperlipidemia Type II or unspecified type diabetes mellitus without mention of complication, uncontrolled PAST SURGICAL HISTORY Procedure Laterality Date ARTHRP KNE CONDYLE&PLATU MEDIAL&LAT COMPARTMENTS 07/23/2007 Knee replacement, total right CARPAL TUNNEL 05/2014 left COLONOSCOPY FLX DX W/COLLJ SPEC WHEN PFRMD 04/14/2005 Colonoscopy COLONOSCOPY FLX DX W/COLLJ SPEC WHEN PFRMD 01/21/2016 Colonoscopy COLONOSCOPY GEN ANES 07/31/2020 External/internal hemorrhoids EGD 07/31/2020 Mild Gastritis EGD TRANSORAL BIOPSY SINGLE/MULTIPLE 06/25/2007 LAPAROSCOPIC CHOLECYSTECTOMY 01/08/2018 PAST SURGICAL HISTORY OF 1967 right breast cyst benign PAST SURGICAL HISTORY OF 2010 Rt carpal tunnel PAST SURGICAL HISTORY OF 12/2016 cataract surgery right eye TONSILLECTOMY PRIMARY/SECONDARY <AGE 12 Tonsillectomy FAMILY HISTORY Problem Relation Age of Onset Heart Mother Heart Father Pneumonia Sister No Known Problems Sister Heart Brother Cancer Maternal Grandfather Cancer Paternal Grandfather Colon Cancer No Family History Social History Tobacco Use Smoking status: Never Smokeless tobacco: Never Vaping Use Vaping Use: Never used Substance Use Topics Alcohol use: No Drug use: No Reviewed current medications, allergies, past medical history, surgical history, family history and social history today. REVIEW OF SYSTEMS All other reviewed and negative other than HPI. HEALTH MAINTENANCE: URINE ALBUMIN:CREATININE RATIO due on 08/02/2022 VITALS: BP 140/58 Pulse 80 Ht 172.7 cm (5' 8 ) Wt 92.5 kg (204 lb) SpO2 96% BMI 31.02 kg/m Last 4 Encounter Wt Readings: Date: Wt: 11/10/2022 92.5 kg (204 lb) 08/23/2022 94.9 kg (209 lb 3.2 oz) 06/08/2022 94.2 kg (207 lb 9.6 oz) 05/24/2022 94.8 kg (209 lb) PHYSICAL EXAMINATION: General appearance: Well appearing, alert, in no acute distress, well-hydrated, well nourished. Skin: Skin color, texture, turgor normal, no suspicious rashes or lesion Lungs: Lungs clear to auscultation. No wheezing, rhonchi, rales Heart: RRR without murmur, gallop, or rubs. No ectopy Abdomen: Normal abdominal exam, Abdomen soft, non-tender. Bowel sounds normal. No masses, organomegaly Extremities: No deformities, edema, skin discoloration, clubbing or cyanosis. Good capillary refill. Musculoskeletal: No joint swelling, deformity, or tenderness ASSESSMENT/PLAN: 1. Type 2 diabetes mellitus 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 polyneuropathy, without long-term current use of insulin (HCC) - ICD9: 250.60, 357.2, ICD10: E11.42 (primary diagnosis) - follow labs. - GLIMEPIRIDE 2 MG TABLET - ALBUMIN/CREAT RATIO RND UR 2. Paroxysmal atrial fibrillation (HCC) - ICD9: 427.31, ICD10: I48.0 - will need cardiac clearance per [facility] for surgery. 3. Cardiomyopathy, nonischemic (HCC) - ICD9: 425.4, ICD10: I42.8 - as above. Doing well. 4. Type 2 diabetes mellitus 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 peripheral angiopathy without gangrene, without long-term current use of insulin (HCC) - ICD9: 250.70, 443.81, ICD10: E11.51 - follow labs. - VITAMIN D 25 HYDROXY - HGB A1C 5. Type 2 diabetes mellitus with stage 3b chronic kidney disease, without long-term current use of insulin (HCC) - ICD9: 250.40, 585.3, ICD10: E11.22, N18.32 - has been stable. Would return to nephrology if worsens. - HGB A1C 6. Low serum albumin - ICD9: 790.99, ICD10: R77.0 - check labs. Continue supplements. - CONSULT TO NUTRITION THERAPY - PREALBUMIN BLD - URINALYSIS, WITH MICROSCOPIC 7. Iron deficiency anemia, unspecified iron deficiency anemia type - ICD9: 280.9, ICD10: D50.9 - follow up with hematology. Recheck labs while here today. Will need maximized prior to surgery. - CBC + DIFF - IRON + TIBC - CONSULT TO HEMATOLOGY 8. DAYANA (obstructive sleep apnea) - ICD9: 327.23, ICD10: G47.33 - continue cpap 9. Medication monitoring encounter - ICD9: V58.83, ICD10: Z51.81 - is on amiodarone. - TSH BLD Stefan Moore MD documented in this encounter [facility] 11-17-2022 Note [facility] 11-17-2022 History of Present illness Narrative Patient presents for B-12 injection. Denies any problems at this time. Patient instructed on any SE of medication, verbalized understanding and agreed to proceed with treatment. Tolerated injection well. Erica Colorado LPN documented in this encounter [facility] 11-10-2022 Note [facility] 11-09-2022 Miscellaneous Notes Scheduled appointment with patient. Per Dr. Chaudhry's OV note from 05/02/2022- PLAN: -Continue iron supplement twice daily & folic acid 1 mg once daily. -We discuss erythropoietin treatment for anemia of chronic disease if hemoglobin is less than 10 gm/dL for symptomatic anemia. Please schedule OV with Dr. Bojorquez to discuss. Verona Sarabia LPN Please review and advise. Patient informed and verbalized understanding. Sending to schedulers to assist in scheduling with Hematology appt. Chelle Watts Can please let patient know that I received her lab results. Her hemoglobin is still 9.6. She should return to hematology. Will also forward note to heme/onc for return appt. Patient was known to Dr. Chaudhry and last seen 04/2022. Discussed erythropoietin treatment if hgb less than 10. documented in this encounter [facility] 11-07-2022 Note [facility] 11-07-2022 Instructions Monae Bowser APRN.RUBY RAILS DEVELOPER - 11/07/2022 2:03 PM EDT Get the labwork. Finish the prednisone. Continue to watch sugars. documented in this encounter [facility] 11-07-2022 History of Present illness Narrative This is a 82 year old female who presents today with: Patient presents with: ER F/U: [facility] ER f/u dx: weakness/shortness of breath HISTORY OF PRESENT ILLNESS: Coni Romero is a 82 year old female. Patient presents with: ER F/U: [facility] ER f/u dx: weakness/shortness of breath Pt presents today for ER follow-up. Went to the ER on 10/31. She initially was in on 10/25/22. Started doxy and prednisone for bronchitis. Refers that she had more weakness and endurance -- and then she went to the ER. Progressively worsening SOB. Work-up essentially normal/stable in the ER, however, hgb was 9.7. She was started on a prednisone taper in the ER. Watching home sugars and has been stable on the prednisone. She previously followed w/ heme-onc for her chronic anemia. Was contemplating staring erythropoietin treatment, but then hgb was holding above 10. Last visit was fall. She had anemia work-up, including endoscopies. She continues on iron, folate, and b12 replacement. Cough/breathing is improved. PAST MEDICAL HISTORY: PAST MEDICAL HISTORY Diagnosis Date Acute gastritis without mention of hemorrhage Anemia, unspecified Anxiety state, unspecified Atrial fibrillation (HCC) B12 deficiency Diverticulosis of colon (without mention of hemorrhage) Esophageal reflux Gastritis Generalized osteoarthrosis, unspecified site Gout Hemorrhage of gastrointestinal tract, unspecified Hemorrhoids Iron deficiency anemia, unspecified Migraine without aura has been quiescent since menopause. Other and unspecified hyperlipidemia Type II or unspecified type diabetes mellitus without mention of complication, uncontrolled PAST SURGICAL HISTORY Procedure Laterality Date ARTHRP KNE CONDYLE&PLATU MEDIAL&LAT COMPARTMENTS 07/23/2007 Knee replacement, total right CARPAL TUNNEL 05/2014 left COLONOSCOPY FLX DX W/COLLJ SPEC WHEN PFRMD 04/14/2005 Colonoscopy COLONOSCOPY FLX DX W/COLLJ SPEC WHEN PFRMD 01/21/2016 Colonoscopy COLONOSCOPY GEN ANES 07/31/2020 External/internal hemorrhoids EGD 07/31/2020 Mild Gastritis EGD TRANSORAL BIOPSY SINGLE/MULTIPLE 06/25/2007 LAPAROSCOPIC CHOLECYSTECTOMY 01/08/2018 PAST SURGICAL HISTORY OF 1967 right breast cyst benign PAST SURGICAL HISTORY OF 2010 Rt carpal tunnel PAST SURGICAL HISTORY OF 12/2016 cataract surgery right eye TONSILLECTOMY PRIMARY/SECONDARY <AGE 12 Tonsillectomy ALLERGIES Iodine, Metformin, Simvastatin, Lywhkwy-Kju-Lgy Reductase Inhibitors, and Vytorin 10-10 [Ezetimibe-Simvastatin] MEDICATIONS Current Outpatient Medications Medication Sig guaiFENesin (MUCINEX) 600 mg 12 hr tablet Take 2 tablets by mouth twice daily. levothyroxine (SYNTHROID) 137 mcg tablet Take 1 tablet by mouth once daily. Take on empty stomach. For thyroid. blood sugar diagnostic (BLOOD GLUCOSE TEST) test strip Test blood sugar(s) onetimes daily. Dx: Other DM Code E11.49 Insulin: Yes Lancets lancets Test glucose 2x/daily, 250.02, insulin use: yes traMADol (ULTRAM) 50 mg tablet Take 50 mg by mouth as needed. amLODIPine (NORVASC) 5 mg tablet Take 0.5 tablets by mouth once daily. cholecalciferol, Vitamin D3, (VITAMIN D3) 1,250 mcg (50,000 unit) cap capsule Take 1 capsule by mouth one time a week. gabapentin (NEURONTIN) 300 mg capsule Take 1 capsule by mouth three times daily for 180 days. carvedilol (COREG) 25 mg tablet Take 1 tablet by mouth twice daily. pioglitazone (ACTOS) 30 mg tablet Take 1 tablet by mouth once daily. lansoprazole (PREVACID) 30 mg capsule TAKE 1 CAPSULE EVERY MORNING BEFORE EATING glimepiride (AMARYL) 2 mg tablet Take 1 tablet by mouth daily with breakfast. allopurinol (ZYLOPRIM) 100 mg tablet Take 2 tablets by mouth once daily. amiodarone (PACERONE) 200 mg tablet Take 1 tablet by mouth once daily. albuterol (PROVENTIL) 2.5 mg /3 mL (0.083 %) nebulizer solution Use 3 mL via nebulizer every 4 hours as needed for wheezing/shortness of breath. Use over 5-15minutes. iron polysaccharide complex (IFEREX 150) 150 mg iron capsule Take 1 capsule by mouth twice daily. folic acid 1 mg tablet Take 1 tablet by mouth once daily. dulaglutide (TRULICITY) 1.5 mg/0.5 mL pen injector Inject 1.5 mg subcutaneously one time a week. Inject once per week. Discard Pen After colestipol (COLESTID) 1 gram tablet Take 1 tablet by mouth twice daily with meals. glimepiride (AMARYL) 2 mg tablet Take 1 tablet by mouth daily with breakfast. Syringe with Needle, Disp, (BD LUER-TALON SYRINGE) 3 mL 25 gauge x 1 USE SYRINGE TO INJECT B12 ONCE A MONTH cyanocobalamin 1,000 mcg/mL INJECT 1 MILLILITER INTRAMUSCULARLY ONCE A MONTH acetaminophen (TYLENOL) 500 mg tablet Take 1,000 mg by mouth every 8 hours as needed. Insulin [place], Disposable, (BD ULTRA-FINE HORTENCIA PEN NEEDLE) 32 gauge x /32 ndle Use one needle for each dose. 3x/day. E11.65 E11.49 clotrimazole (LOTRIMIN, CLOTRIM) 1 % cream Apply 1 application to affected area twice daily. (Patient taking differently: Apply 1 application to affected area as needed.) triamcinolone acetonide (KENALOG) 0.1 % cream apply to affected area twice a day blood sugar diagnostic (EASYMAX N) test strip Frequency of testin times daily DX E11.49 Insulin YES psyllium Husk (FIBER-CAPS) 0.52 g ORAL capsule Take 2 capsules by mouth once daily. multivitamins w-iron(FLINTSTONES PLUS IRON CHEWABLE TAB) Take one(1) tablet daily with meal. Current Facility-Administered Medications Medication Dose Route Frequency cyanocobalamin 1,000 mcg injection 1,000 mcg INTRAMUSCULAR q 4 WEEKS FAMILY HISTORY Problem Relation Age of Onset Heart Mother Heart Father Pneumonia Sister No Known Problems Sister Heart Brother Cancer Maternal Grandfather Cancer Paternal Grandfather Colon Cancer No Family History Social History Tobacco Use Smoking status: Never Smokeless tobacco: Never Vaping Use Vaping Use: Never used Substance Use Topics Alcohol use: No Drug use: No EXAM: BP 132/60 Pulse 83 Resp 16 SpO2 96% PHYSICAL EXAM: General Appearance: Well appearing, alert, in no acute distress, well-hydrated, well nourished.. Skin: Skin color, texture, turgor normal, no suspicious rashes or lesions. Head: Normocephalic, no masses, lesions, tenderness or abnormalities. Eyes: Anicteric sclera. Extraocular movements are intact. . Lungs: Lungs clear to auscultation. No wheezing, rhonchi, rales.. Heart: RRR without murmur, gallop, or rubs. No ectopy. Neurologic: Gait normal. ASSESSMENT/PLAN: 1. Anemia, unspecified type - ICD9: 285.9, ICD10: D64.9 (primary diagnosis) Will go ahead and repeat CBC. If continues with hemoglobin less than 10, will plan to refer back to hematology for possible erythropoietin therapy - CBC + DIFF 2. Bronchitis - ICD9: 490, ICD10: J40 Improved. Finish prednisone, as previously ordered. Discussed treatment plan and patient voices understanding. Patient's questions answered appropriately. Medications and potential side effects were discussed and patient voices understanding. Return to the office as scheduled or as needed for worsening/no improvement. BROOKE Angel APRN.OTIS The patient indicates understanding of these issues and agrees with the plan. documented in this encounter [facility] 10-31-2022 Note [facility] 10-31-2022 History of Present illness Narrative Virtualist Progress Note Triage Call Triage source: Triage Call (Nurse Rental Agent, [facility] Triage, [facility] Phone Triage) Was patient downgraded (i.e. disposition other than go to the ED was advised)? No Mode of contact (phone call, fake company [employer], Tap[employer], [facility], Skype, other): phone History/Physical Exam: The patient was seen on October 25 for nasal congestion, sinus pressure, and headache. Chest x-ray was negative. Was prescribed prednisone and doxycycline. Last night, the patient developed severe weakness which has persisted. At this point, she is unable to walk. Her daughter called nurse production line assembler and was given a call 911 disposition. Relative is home and willing to take her to the emergency room, so I told the nurse to advise the family that they can take her to the emergency room. Nurse Triage Disposition (If call is from Home Care, Home Care nurse triage, or an Express [facility], the disposition is Go to ED Now ): Call EMS ([phone]) Now Virtualist Recommended Disposition: Go to ED Signed in as Primary Virtualist, Secondary Virtualist, or [facility] Telehealth provider: Secondary SIGNATURE: Fito Saenz MD PATIENT NAME: Coni Romero DATE: October 31, 2022 documented in this encounter [facility] 10-31-2022 Miscellaneous Notes Reason for Call: Patient calls reporting new onset weakness starting last night and increasing today. Currently patient requiring a lot of support to mobilize.She was seen in the clinic earlier this week for bronchitis and is still taking Doxycycline. She can be heard with occasional cough and reports fatigue. Outcome: Recommended patient call 911, patient declined same. Her niece is there with her and prefers to have niece drive her to [facility]. Radiology Aide called and spoke to Virtualist, Dr. Fito Saenz, who okayed niece driving patient to ER now. Notified patient of same, they will leave now. Reason for Disposition [1] SEVERE weakness (i.e., unable to walk or barely able to walk, requires support) AND [2] new-onset or worsening Protocols used: Weakness (Generalized) and [id number] documented in this encounter [facility] 2022 Note [facility] 2022 Note [facility] 10-20-2022 Note [facility] 10-14-2022 Miscellaneous Notes Pt notified. She verbalized understanding. Yusuf You LPN She was a little anemic on her labs, but appears stable. I would follow ortho's recommendations, as they want everything to be optimized prior to surgery. Monae Bowser APRN.RUBY RAILS DEVELOPER Patient calls and states that she was supposed to have hip replacement with Dr. Maza on 11/09/2022. Patient states that surgery was cancelled due to lab values being low for nutrition. Patient states she was told to drink 2 ensures a day instead of 1 which she has been drinking. They had also mentioned patient taking more iron pills. Patient asking if provider can take a look at labs that were done at [facility] [facility] and advise on these? Patient was told that she will have labs retested again is six weeks and then she will be put on schedule again. Please review and advise, Chacha Smith RN documented in this encounter [facility] 10-12-2022 Note [facility] 10-12-2022 Note [facility] 10-12-2022 Note [facility] 10-12-2022 History of Present illness Narrative Per Dr. Sepulveda, Hanson was provided with Tubigrip and instructed/educated in its application, wear, and care. All questions were answered, and patient was able to demonstrate competence with the necessary skills to utilize the above equipment. Darling Stroud RN Last saw pcp: 09/22/22 Subjective: Patient presents to clinic c/o painful toenails. They state that the nails are especially painful with shoe gear and pressure. Patient states that nails 1-5 b/l are painful. Patient admits to being diabetic. No other pedal complaints at this time. Patient states no change in medications or medical history since last visit. Objective: Patient presents to clinic ambulating in sneakers Vasc: DP and PT pulses are palpable bilateral. CFT is less than 5 seconds bilateral. Skin temperature is warm to cool proximal to distal bilateral. There is mild edema or varicosities noted. Neuro: Protective sensation is intact to the foot and toes when tested with the 5.07 SWM bilateral. Vibratory sensation is decreased at the hallux IPJ bilateral. The hallux is downgoing bilateral. Derm: Nails 1-5 b/l are painful, discolored-yellow, thick, crumbly, dystrophic and with subungal debris. Skin is of normal turgor, texture and hair growth is present bilateral. There are no hyperkeratosis, ulcerations, scars, verruca or other lesions noted. Ortho: Muscle strength is 5/5 for all pedal groups tested. Ankle joint DF is decreased with the knee extended with no pain or crepitus noted. 1st MPJ ROM is decreased bilateral. Assessment: (B35.1) Onychomycosis (primary encounter diagnosis) (M79.674) Pain in toe of right foot (M79.675) Pain in toe of left foot (E11.42) Diabetic polyneuropathy associated with type 2 diabetes mellitus (HCC) Plan: Patient was seen and evaluated. Nails 1-5 bilateral were debrided in length and thickness. Patient was instructed on the continued importance of diabetic foot care along with proper diet and keeping their blood sugar under control to prevent complications. Patient is to RTC in 3-4 months. Dali Sepulveda DPM Patient presents with: Left Foot - Established Patient, Follow Up, Diabetic Foot Care Right Foot - Established Patient, Follow Up, Diabetic Foot Care Patient presents for 3 month follow up diabetic foot care. Denies any new pain or problems to feet. documented in this encounter [facility] 10-06-2022 Miscellaneous Notes Patient has been identified by name and date of :YES Requested Prescriptions Pending Prescriptions Disp Refills levothyroxine (SYNTHROID) 137 mcg tablet 90 tablet 3 Sig: Take 1 tablet by mouth once daily. Take on empty stomach. For thyroid. RX INSTRUCTIONS: Patient aware RX will be sent to pharmacy. No need to notify patient. Annel Dash documented in this encounter [facility] 09-30-2022 Miscellaneous Notes Form received. Will complete at OV. Yusuf You LPN Type of form: Surgery Clearance Patient has appt on 10/19/2022 Form received via fax When form is completed, Fax form to [phone] Form has been forwarded to Physician Mailbox: OTIS Ramirez LPN documented in this encounter [facility] 09-23-2022 Miscellaneous Notes Patient has been identified by name and date of : Yes Requested Prescriptions Pending Prescriptions Disp Refills blood sugar diagnostic (BLOOD GLUCOSE TEST) test strip 50 Strip 11 Sig: Test blood sugar(s) onetimes daily. Dx: Other DM Code E11.49 Insulin: Yes RUSSEL-08/23/22 Labs-08/31/22 NOV-02/23/23 RX INSTRUCTIONS: Patient is out of test strips, please send today. Patient aware RX will be sent to pharmacy. Please call once sent. Ebony Boyce documented in this encounter [facility] 09-22-2022 Note [facility] 09-22-2022 History of Present illness Narrative Patient presents for B-12 injection. Denies any problems at this time. Patient instructed on any SE of medication, verbalized understanding and agreed to proceed with treatment. Tolerated injection well. Erica Colorado LPN documented in this encounter [facility] 09-05-2022 Miscellaneous Notes Patient has been identified by name and date of : Yes Requested Prescriptions Pending Prescriptions Disp Refills Lancets lancets 100 Each 11 Sig: Test glucose 2x/daily, 250.02, insulin use: yes RUSSEL-08/23/22 Labs-08/31/22 NOV-02/23/23 RX INSTRUCTIONS: Patient aware RX will be sent to pharmacy. No need to notify patient. Meredith Colby Pss documented in this encounter [facility] 08-23-2022 Note [facility] 08-23-2022 Miscellaneous Notes Addended by: STEFAN MOORE on: 08/23/2022 03:49 PM Modules accepted: Orders documented in this encounter [facility] 08-23-2022 History of Present illness Narrative Patient presents with: Follow Up HPI: Patient presents today for office visit for follow up. Overall doing well. Due for B-12 injection today. DM: overall doing well Checking sugars every morning Avg 100's No hypoglycemic spells No vision changes. Due for eye exam No foot lesions Has numbness in B/L feet No polyuria or polydipsia No gout flares. Taking Allopurinol HTN: Checking BP at home 127/60 this morning Stable No chest pain or shortness of breath No headaches or dizziness No edema No syncope No palpitations Saw Cardiology 08/22/22. Pulmonary testing ordered. GERD: Taking Lansoprazole. Symptoms controlled Has seen nephro in the past. Will see prn if worsens. Does not have to return to heme onc. Component Latest Ref Rng & Units 03/17/2022 05/24/2022 WBC 3.70 - 11.00 k/uL 4.98 6.44 RBC 3.90 - 5.20 m/uL 3.44 (L) 3.71 (L) Hemoglobin 11.5 - 15.5 g/dL 10.3 (L) 10.9 (L) Hematocrit 36.0 - 46.0 % 32.7 (L) 36.0 MCV 80.0 - 100.0 fL 95.1 97.0 MCH 26.0 - 34.0 pg 29.9 29.4 MCHC 30.5 - 36.0 g/dL 31.5 30.3 (L) RDW-CV 11.5 - 15.0 % 15.9 (H) 16.9 (H) Platelet Count 150 - 400 k/uL 154 233 MPV 9.0 - 12.7 fL 9.8 10.6 Neut% % 69.1 66.8 Abs Neut (ANC) 1.45 - 7.50 k/uL 3.44 4.30 Lymph% % 18.7 23.0 Abs Lymph 1.00 - 4.00 k/uL 0.93 (L) 1.48 Door% % 7.0 5.7 Abs Door <0.87 k/uL 0.35 0.37 Eosin% % 4.2 2.5 Abs Eosin <0.46 k/uL 0.21 0.16 Baso% % 0.8 0.8 Abs Baso <0.11 k/uL 0.04 0.05 Immature Gran % % 0.2 1.2 IMMATURE GRANS (ABS) <0.10 k/uL <0.03 0.08 NRBC /100 WBC 0.0 0.0 Absolute nRBC <0.01 k/uL <0.01 <0.01 DTYPE Auto Auto Glucose 74 - 99 mg/dL 81 220 (H) BUN 7 - 21 mg/dL 30 (H) 35 (H) Creatinine 0.58 - 0.96 mg/dL 1.49 (H) 1.44 (H) Sodium 136 - 144 mmol/L 141 140 Potassium 3.7 - 5.1 mmol/L 4.3 4.2 Chloride 97 - 105 mmol/L 106 (H) 106 (H) CO2 22 - 30 mmol/L 27 25 Anion Gap 9 - 18 mmol/L 8 (L) 9 Calcium 8.5 - 10.2 mg/dL 8.9 9.2 eGFR >=60 mL/min/1.73m 35 (L) 37 (L) Cholesterol, Total <200 mg/dL 160 Triglyceride <150 mg/dL 103 HDL Cholesterol >39 mg/dL 35 (L) Non HDL Cholesterol <130 mg/dL 125 Fasting Time hrs 12 VLDL Cholesterol <30 mg/dL 21 TC:HDL Ratio <5.10 4.57 LDL Cholesterol <100 mg/dL 104 (H) LDL:HDL Ratio <2.54 2.97 (H) Iron 41 - 186 ug/dL 57 91 TIBC 232 - 386 ug/dL 297 284 Transferrin Saturation 15.0 - 57.0 % 19.2 32.0 Hemoglobin A1C 4.3 - 5.6 % 5.8 (H) Estimated Average Glucose mg/dL 120 TSH 0.270 - 4.200 mIU/L 1.600 1.640 Ferritin 14.7 - 205.1 ng/mL 234.0 (H) PTH, Intact 15 - 65 pg/mL 46 Vitamin D 25 Hydroxy 31.0 - 80.0 ng/mL 77.6 Phosphorus 2.7 - 4.8 mg/dL 2.8 Vitamin B12 232 - 1,245 pg/mL >2,000 (H) MEDICATIONS: Current Outpatient Medications Medication Sig traMADol (ULTRAM) 50 mg tablet Take 50 mg by mouth as needed. amLODIPine (NORVASC) 5 mg tablet Take 0.5 tablets by mouth once daily. cholecalciferol, Vitamin D3, (VITAMIN D3) 1,250 mcg (50,000 unit) cap capsule Take 1 capsule by mouth one time a week. gabapentin (NEURONTIN) 300 mg capsule Take 1 capsule by mouth three times daily for 180 days. carvedilol (COREG) 25 mg tablet Take 1 tablet by mouth twice daily. pioglitazone (ACTOS) 30 mg tablet Take 1 tablet by mouth once daily. lansoprazole (PREVACID) 30 mg capsule TAKE 1 CAPSULE EVERY MORNING BEFORE EATING glimepiride (AMARYL) 2 mg tablet Take 1 tablet by mouth daily with breakfast. allopurinol (ZYLOPRIM) 100 mg tablet Take 2 tablets by mouth once daily. amiodarone (PACERONE) 200 mg tablet Take 1 tablet by mouth once daily. albuterol (PROVENTIL) 2.5 mg /3 mL (0.083 %) nebulizer solution Use 3 mL via nebulizer every 4 hours as needed for wheezing/shortness of breath. Use over 5-15minutes. levothyroxine (SYNTHROID) 137 mcg tablet Take 1 tablet by mouth once daily. Take on empty stomach. For thyroid. iron polysaccharide complex (IFEREX 150) 150 mg iron capsule Take 1 capsule by mouth twice daily. folic acid 1 mg tablet Take 1 tablet by mouth once daily. dulaglutide (TRULICITY) 1.5 mg/0.5 mL pen injector Inject 1.5 mg subcutaneously one time a week. Inject once per week. Discard Pen After colestipol (COLESTID) 1 gram tablet Take 1 tablet by mouth twice daily with meals. blood sugar diagnostic (BLOOD GLUCOSE TEST) test strip Test blood sugar(s) onetimes daily. Dx: Other DM Code E11.49 Insulin: Yes glimepiride (AMARYL) 2 mg tablet Take 1 tablet by mouth daily with breakfast. Syringe with Needle, Disp, (BD LUER-TALON SYRINGE) 3 mL 25 gauge x 1 USE SYRINGE TO INJECT B12 ONCE A MONTH cyanocobalamin 1,000 mcg/mL INJECT 1 MILLILITER INTRAMUSCULARLY ONCE A MONTH acetaminophen (TYLENOL) 500 mg tablet Take 1,000 mg by mouth every 8 hours as needed. Insulin [place], Disposable, (BD ULTRA-FINE HORTENCIA PEN NEEDLE) 32 gauge x ndle Use one needle for each dose. 3x/day. E11.65 E11.49 clotrimazole (LOTRIMIN, CLOTRIM) 1 % cream Apply 1 application to affected area twice daily. (Patient taking differently: Apply 1 application to affected area as needed.) triamcinolone acetonide (KENALOG) 0.1 % cream apply to affected area twice a day blood sugar diagnostic (EASYMAX N) test strip Frequency of testin times daily DX E11.49 Insulin YES Lancets lancets Test glucose 2x/daily, 250.02, insulin use: yes psyllium Husk (FIBER-CAPS) 0.52 g ORAL capsule Take 2 capsules by mouth once daily. multivitamins w-iron(FLINTSTONES PLUS IRON CHEWABLE TAB) Take one(1) tablet daily with meal. Current Facility-Administered Medications Medication Dose Route Frequency cyanocobalamin 1,000 mcg injection 1,000 mcg INTRAMUSCULAR q 4 WEEKS ALLERGIES: ALLERGIES Allergen Reactions Iodine Rash, Unknown, Hives Metformin Other: See Comments Elevated renal function Simvastatin Contraindication-Medical Surgical statin myopathy [id number] Red* Other: See Comments myopathy Vytorin 10-10 [Ezet* Contraindication-Medical Surgical myopathy PAST MEDICAL HISTORY Diagnosis Date Acute gastritis without mention of hemorrhage Anemia, unspecified Anxiety state, unspecified Atrial fibrillation (HCC) B12 deficiency Diverticulosis of colon (without mention of hemorrhage) Esophageal reflux Gastritis Generalized osteoarthrosis, unspecified site Gout Hemorrhage of gastrointestinal tract, unspecified Hemorrhoids Iron deficiency anemia, unspecified Migraine without aura has been quiescent since menopause. Other and unspecified hyperlipidemia Type II or unspecified type diabetes mellitus without mention of complication, uncontrolled PAST SURGICAL HISTORY Procedure Laterality Date ARTHRP KNE CONDYLE&PLATU MEDIAL&LAT COMPARTMENTS 07/23/2007 Knee replacement, total right CARPAL TUNNEL 05/2014 left COLONOSCOPY FLX DX W/COLLJ SPEC WHEN PFRMD 04/14/2005 Colonoscopy COLONOSCOPY FLX DX W/COLLJ SPEC WHEN PFRMD 01/21/2016 Colonoscopy COLONOSCOPY GEN ANES 07/31/2020 External/internal hemorrhoids EGD 07/31/2020 Mild Gastritis EGD TRANSORAL BIOPSY SINGLE/MULTIPLE 06/25/2007 LAPAROSCOPIC CHOLECYSTECTOMY 01/08/2018 PAST SURGICAL HISTORY OF 1967 right breast cyst benign PAST SURGICAL HISTORY OF 2010 Rt carpal tunnel PAST SURGICAL HISTORY OF 12/2016 cataract surgery right eye TONSILLECTOMY PRIMARY/SECONDARY <AGE 12 Tonsillectomy FAMILY HISTORY Problem Relation Age of Onset Heart Mother Heart Father Pneumonia Sister No Known Problems Sister Heart Brother Cancer Maternal Grandfather Cancer Paternal Grandfather Colon Cancer No Family History Social History Tobacco Use Smoking status: Never Smokeless tobacco: Never Vaping Use Vaping Use: Never used Substance Use Topics Alcohol use: No Drug use: No Reviewed current medications, allergies, past medical history, surgical history, family history and social history today. REVIEW OF SYSTEMS Is going to TOPS. Wants to make a goal weight to start of 190. Has been working on weight loss. Needs handicapped placard. Has two injections in her back. Still with pain. Sees Dr Maza for her hip. All other reviewed and negative other than HPI. HEALTH MAINTENANCE: Reviewed health maintenance issues today and recommended the following in detail. DILATED RETINAL EXAM - is due ADVANCE DIRECTIVE DISCUSSION - on file DEPRESSION ASSESSMENT - done. URINE ALBUMIN:CREATININE RATIO due on 08/02/2022 VITALS: BP 144/54 Pulse 84 Ht 172.7 cm (5' 8 ) Wt 94.9 kg (209 lb 3.2 oz) SpO2 97% BMI 31.81 kg/m Last 4 Encounter Wt Readings: Date: Wt: 06/08/2022 94.2 kg (207 lb 9.6 oz) 05/24/2022 94.8 kg (209 lb) 05/02/2022 96.6 kg (213 lb) 02/14/2022 98 kg (216 lb) PHYSICAL EXAMINATION: General appearance: Well appearing, alert, in no acute distress, well-hydrated, well nourished. Skin: Skin color, texture, turgor normal, no suspicious rashes or lesions Head: Normocephalic, no masses, lesions, tenderness or abnormalities Lungs: Lungs clear to auscultation. No wheezing, rhonchi, rales Heart: RRR without murmur, gallop, or rubs. No ectopy Abdomen: Normal abdominal exam, Abdomen soft, non-tender. Bowel sounds normal. No masses, organomegaly Extremities: No deformities, edema, skin discoloration, clubbing or cyanosis. Good capillary refill. Musculoskeletal: No joint swelling, deformity, or tenderness ASSESSMENT/PLAN: 1. Type 2 diabetes mellitus 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 polyneuropathy, without long-term current use of insulin (HCC) - ICD9: 250.60, 357.2, ICD10: E11.42 (primary diagnosis) - stable. - BASIC METABOLIC PNL - HGB A1C 2. Paroxysmal atrial fibrillation (HCC) - ICD9: 427.31, ICD10: I48.0 - doing well. 3. Pure hypercholesterolemia - ICD9: 272.0, ICD10: E78.00 - follow labs. 4. Type 2 diabetes mellitus 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 peripheral angiopathy without gangrene, without long-term current use of insulin (HCC) - ICD9: 250.70, 443.81, ICD10: E11.51 - Controlled - Continue current medications - ALBUMIN/CREAT RATIO RND UR 5. DAYANA (obstructive sleep apnea) - ICD9: 327.23, ICD10: G47.33 - on cpap 6. B12 deficiency - ICD9: 266.2, ICD10: E53.8 - VITAMIN B12 BLOOD 7. Type 2 diabetes mellitus with stage 3b chronic kidney disease, without long-term current use of insulin (HCC) - ICD9: 250.40, 585.3, ICD10: E11.22, N18.32 - monitor labs. 8. Hyperparathyroidism due to vitamin D deficiency (HCC) - ICD9: 252.02, ICD10: E21.1 - VITAMIN D 25 HYDROXY 9. Other specified hypothyroidism - ICD9: 244.8, ICD10: E03.8 - Instructed patient on importance of taking on an empty stomach either first thing in the morning or at bedtime. Follow labs. 10. Anemia, unspecified type - ICD9: 285.9, ICD10: D64.9 - CBC + DIFF - IRON + TIBC Stefan Moore MD documented in this encounter [facility] 08-03-2022 Note [facility] 08-01-2022 Note [facility] 07-25-2022 Note [facility] 07-25-2022 History of Present illness Narrative Domingo Knutson MD Department of Orthopaedics Orthopa[facility]ics [address] [facility] [address] Dept: [phone] Dept July 25, 2022 CHIEF COMPLAINT: New and Pain of the Left Hand HPI Patient here today for left middle finger. She denies any pain. States she fell about 6 weeks ago and put her hand out to catch herself. She was seen at the [facility] and x-ray taken. She states all of her fingers feel full and swollen. She is right hand dominant. She uses a walker to help with ambulation. ASSESSMENT: M79.645 Finger pain, left PLAN: \ She does have a time ganglion cyst off of the PIP joint on the dorsal side. Its not really causing her any troubles and she has excellent range of motion and no other issues with the hand other than her baseline arthritic findings. She can follow-up as needed FOLLOW UP INSTRUCTIONS: As above Ms. Coni Romero was advised as to contrast therapies and/or to take analgesics/anti-inflammatories as needed and all contraindications were reviewed. OBJECTIVE: Ms. Coni Romero is a pleasant 81 year old in no apparent distress. Gen:There were no vitals taken for this visit. nl development, non obese, no deformities ENT: Normocephalic, normal hearing, moist mucosa CV: Pulses:Radial= 2+ and symmetric, capillary refill < 2 secs, no peripheral edema/varicosities Skin: no rash, bruising or lesions. Good turgor. Psych: cooperative and appropriate, alert and oriented x 3, good mood and affect. Musculoskeletal: Middle finger with tiny ganglion on dorsal side, just distal to PIP joint without any concerns. IMAGING: IMPRESSION: DEGENERATIVE CHANGE, JOINT SPACE NARROWING AND OSTEOPHYTOSIS. Internet Network Specialist: PSCDede Transcribe Date/Time: Jun 10 2022 12:09P Dictated by : TERESITA OH MD This examination was interpreted and the report reviewed and electronically signed by: TERESITA OH MD on Jun 10 2022 12:10PM EST Results-Findings * * *Final Report* * * DATE OF EXAM: Jun 08 2022 10:35AM WOX [id number] - XR DIGIT 3V FRONTAL/LAT/OBL LT / PROCEDURE REASON: Finger pain, left * * * * Physician Interpretation * * * * Examination: XR DIGIT 3V FRONTAL/LAT/OBL LT History: Finger pain, left Technique: XR DIGIT 3V FRONTAL/LAT/OBL LT Comparison: None RESULT: 3 views of the left third finger reveal moderate degenerative change and osteophytosis involving the distal interphalangeal joint. Moderate joint space narrowing. No fracture. Normal alignment. No evidence of radiopaque foreign material Diffuse osteopenia Supporting Subjective Information Below: Past Medical History: PAST MEDICAL HISTORY Diagnosis Date Acute gastritis without mention of hemorrhage Anemia, unspecified Anxiety state, unspecified Atrial fibrillation (HCC) B12 deficiency Diverticulosis of colon (without mention of hemorrhage) Esophageal reflux Gastritis Generalized osteoarthrosis, unspecified site Gout Hemorrhage of gastrointestinal tract, unspecified Hemorrhoids Iron deficiency anemia, unspecified Migraine without aura has been quiescent since menopause. Other and unspecified hyperlipidemia Type II or unspecified type diabetes mellitus without mention of complication, uncontrolled Past Surgical History: PAST SURGICAL HISTORY Procedure Laterality Date ARTHRP KNE CONDYLE&PLATU MEDIAL&LAT COMPARTMENTS 07/23/2007 Knee replacement, total right CARPAL TUNNEL 05/2014 left COLONOSCOPY FLX DX W/COLLJ SPEC WHEN PFRMD 04/14/2005 Colonoscopy COLONOSCOPY FLX DX W/COLLJ SPEC WHEN PFRMD 01/21/2016 Colonoscopy COLONOSCOPY GEN ANES 07/31/2020 External/internal hemorrhoids EGD 07/31/2020 Mild Gastritis EGD TRANSORAL BIOPSY SINGLE/MULTIPLE 06/25/2007 LAPAROSCOPIC CHOLECYSTECTOMY 01/08/2018 PAST SURGICAL HISTORY OF 1967 right breast cyst benign PAST SURGICAL HISTORY OF 2010 Rt carpal tunnel PAST SURGICAL HISTORY OF 12/2016 cataract surgery right eye TONSILLECTOMY PRIMARY/SECONDARY <AGE 12 Tonsillectomy Family History: FAMILY HISTORY Problem Relation Age of Onset Heart Mother Heart Father Pneumonia Sister No Known Problems Sister Heart Brother Cancer Maternal Grandfather Cancer Paternal Grandfather Colon Cancer No Family History Social History: Social History Tobacco Use Smoking status: Never Smokeless tobacco: Never Vaping Use Vaping Use: Never used Substance Use Topics Alcohol use: No Drug use: No Medications: Current Outpatient Medications Medication Sig amLODIPine (NORVASC) 5 mg tablet Take 0.5 tablets by mouth once daily. cholecalciferol, Vitamin D3, (VITAMIN D3) 1,250 mcg (50,000 unit) cap capsule Take 1 capsule by mouth one time a week. gabapentin (NEURONTIN) 300 mg capsule Take 1 capsule by mouth three times daily for 180 days. carvedilol (COREG) 25 mg tablet Take 1 tablet by mouth twice daily. pioglitazone (ACTOS) 30 mg tablet Take 1 tablet by mouth once daily. lansoprazole (PREVACID) 30 mg capsule TAKE 1 CAPSULE EVERY MORNING BEFORE EATING allopurinol (ZYLOPRIM) 100 mg tablet Take 2 tablets by mouth once daily. amiodarone (PACERONE) 200 mg tablet Take 1 tablet by mouth once daily. levothyroxine (SYNTHROID) 137 mcg tablet Take 1 tablet by mouth once daily. Take on empty stomach. For thyroid. iron polysaccharide complex (IFEREX 150) 150 mg iron capsule Take 1 capsule by mouth twice daily. folic acid 1 mg tablet Take 1 tablet by mouth once daily. dulaglutide (TRULICITY) 1.5 mg/0.5 mL pen injector Inject 1.5 mg subcutaneously one time a week. Inject once per week. Discard Pen After colestipol (COLESTID) 1 gram tablet Take 1 tablet by mouth twice daily with meals. glimepiride (AMARYL) 2 mg tablet Take 1 tablet by mouth daily with breakfast. acetaminophen (TYLENOL) 500 mg tablet Take 1,000 mg by mouth every 8 hours as needed. psyllium Husk (FIBER-CAPS) 0.52 g ORAL capsule Take 2 capsules by mouth once daily. multivitamins w-iron(FLINTSTONES PLUS IRON CHEWABLE TAB) Take one(1) tablet daily with meal. glimepiride (AMARYL) 2 mg tablet Take 1 tablet by mouth daily with breakfast. albuterol (PROVENTIL) 2.5 mg /3 mL (0.083 %) nebulizer solution Use 3 mL via nebulizer every 4 hours as needed for wheezing/shortness of breath. Use over 5-15minutes. blood sugar diagnostic (BLOOD GLUCOSE TEST) test strip Test blood sugar(s) onetimes daily. Dx: Other DM Code E11.49 Insulin: Yes Syringe with Needle, Disp, (BD LUER-TALON SYRINGE) 3 mL 25 gauge x 1 USE SYRINGE TO INJECT B12 ONCE A MONTH cyanocobalamin 1,000 mcg/mL INJECT 1 MILLILITER INTRAMUSCULARLY ONCE A MONTH Insulin [place], Disposable, (BD ULTRA-FINE HORTENCIA PEN NEEDLE) 32 gauge x 5/32 ndle Use one needle for each dose. 3x/day. E11.65 E11.49 clotrimazole (LOTRIMIN, CLOTRIM) 1 % cream Apply 1 application to affected area twice daily. (Patient taking differently: Apply 1 application to affected area as needed.) triamcinolone acetonide (KENALOG) 0.1 % cream apply to affected area twice a day blood sugar diagnostic (EASYMAX N) test strip Frequency of testin times daily DX E11.49 Insulin YES Lancets lancets Test glucose 2x/daily, 250.02, insulin use: yes Current Facility-Administered Medications Medication Dose Route Frequency cyanocobalamin 1,000 mcg injection 1,000 mcg INTRAMUSCULAR q 4 WEEKS cyanocobalamin 1,000 mcg injection 1,000 mcg INTRAMUSCULAR q 4 WEEKS Allergies: Iodine, Metformin, Simvastatin, Hzbahtc-Quc-Yqu Reductase Inhibitors, and Vytorin 10-10 [Ezetimibe-Simvastatin] ROS: General (negative for fatigue, malaise, weight loss/gain) HEENT (negative for headache, earache, recent vision changes, sinus pain, sore throat) Respiratory (no recent shortness of breath, hemoptysis) CV (negative for chest tightness, palpitations) Musculoskeletal (see HPI) Psych (no depression, anxiety) REFERRING PHYSICIAN: Consultation requested by Dr. Brewster for an opinion regarding finger pain. My final recommendations will be communicated back to the requesting physician by way of shared Medical record or letter to requesting physician via US mail. Chun Brewster [address] [facility] [address] Stefan Moore MD [address] [facility] [address] Domingo Knutson MD documented in this encounter [facility] 07-13-2022 Miscellaneous Notes Patient notified. Verbalized understanding. Bp is ok. Manual Readin/62 Pulse: 71 BP Mack average: 128/58 P: 70 Repeat BP Check: 144/56 P71 #1 131/59 P69 #2 132/58 P70 #3 122/56 P68 #4 124/59 P70 #5 117/58 P69 #6 Reason for blood pressure check - Last BP elevated and Medication adjustment Patient is: Taking medication as prescribed Yes Took medication today Yes If no, date medication last taken N/A Experiencing side effects No BP continued to be elevated at nurse visit 06/28/22. Was started on Amlodipine 2.5mg daily. Tolerating medication well. Home readings have ranged 113-150/56-78. Denies any chest pain, shortness of breath, dizziness, or headaches. Daily caffeine use; none today. No personal history of tobacco use; no current exposure. Alert and oriented. Pt has been identified by name and birthdate: Yes Allergies reviewed: Yes Latex allergy: no. Medication - prescribed and OTC reviewed and updated: Yes Do you need any prescription refills prior to your next visit: No Health Maintenance: Reviewed and not up to date and provider notified Patient advised to continue with current medications and would be contacted if any further instructions after review by PCP. Erica Colorado LPN documented in this encounter [facility] 07-13-2022 Note [facility] 07-13-2022 History of Present illness Narrative Manual Readin/62 Pulse: 71 BP Mack average: 128/58 P: 70 Repeat BP Check: 144/56 P71 #1 131/59 P69 #2 132/58 P70 #3 122/56 P68 #4 124/59 P70 #5 117/58 P69 #6 Reason for blood pressure check - Last BP elevated and Medication adjustment Patient is: Taking medication as prescribed Yes Took medication today Yes If no, date medication last taken N/A Experiencing side effects No BP continued to be elevated at nurse visit 06/28/22. Was started on Amlodipine 2.5mg daily. Tolerating medication well. Home readings have ranged 113-150/56-78. Denies any chest pain, shortness of breath, dizziness, or headaches. Daily caffeine use; none today. No personal history of tobacco use; no current exposure. Alert and oriented. Pt has been identified by name and birthdate: Yes Allergies reviewed: Yes Latex allergy: no. Medication - prescribed and OTC reviewed and updated: Yes Do you need any prescription refills prior to your next visit: No Health Maintenance: Reviewed and not up to date and provider notified Patient advised to continue with current medications and would be contacted if any further instructions after review by PCP. Erica Colorado LPN documented in this encounter [facility] 07-01-2022 Note [facility] 07-01-2022 Note HNO ID: [id number] Author: Carly Landrum RN Service: ? Author Type: ? Type: Progress Notes Filed: 07/01/2022 3:06 PM Note Text: Patient presents with: Left Foot - Established Patient, Diabetic Foot Care Right Foot - Established Patient, Diabetic Foot Care [facility] 07-01-2022 History of Present illness Narrative Last saw Dr. Moore: 05/24/22 Subjective: Patient presents to clinic c/o painful toenails. They state that the nails are especially painful with shoe gear and pressure. Patient states that nails 1-5 b/l are painful. Patient admits to being diabetic. Reports that she recently developed rubbing on her right great toe and has a small scab. She states it appears to be healing. No other pedal complaints at this time. Patient states no change in medications or medical history since last visit. Objective: Patient presents to clinic ambulating in [facility] Vasc: DP and PT pulses are faintly palpable bilateral. CFT is less than 5 seconds bilateral. Skin temperature is warm to cool proximal to distal bilateral. There is mild edema or varicosities noted. Neuro: Protective sensation is decreased to the foot and toes when tested with the 5.07 SWM bilateral. Vibratory sensation is absent at the hallux IPJ bilateral. The hallux is downgoing bilateral. Derm: Nails 1-5 b/l are painful, discolored-yellow, thick, crumbly, dystrophic and with subungal debris. Skin is of normal turgor, texture and hair growth is present bilateral. There are no hyperkeratosis, ulcerations, scars, verruca or other lesions noted. Dry eschar noted to right hallux ipj. No signs of infection. Ortho: Muscle strength is 5/5 for all pedal groups tested. Ankle joint DF is decreased with the knee extended with no pain or crepitus noted. 1st MPJ ROM is decreased bilateral. Hammertoe is present to toes 1-5 b/l Assessment: (B35.1) Onychomycosis (primary encounter diagnosis) (M79.674) Pain in toe of right foot (M79.675) Pain in toe of left foot (E11.42) Diabetic polyneuropathy associated with type 2 diabetes mellitus (HCC) (M20.41, M20.42) Hammer toes of both feet Plan: Patient was seen and evaluated. Nails 1-5 bilateral were debrided in length and thickness. Patient was instructed on the continued importance of diabetic foot care along with proper diet and keeping their blood sugar under control to prevent complications. Discussed hammertoe of b/l feet. This can lead to rubbing in shoes. Will order diabetic shoes She has noninfected scab of right hallux. Offered debridement but she states it is improving and for this reason, will monitor Patient is to RTC in 3-4 months. Dali Sepulveda DPM Patient presents with: Left Foot - Established Patient, Diabetic Foot Care Right Foot - Established Patient, Diabetic Foot Care documented in this encounter [facility] 07-01-2022 Instructions Dali Sepulveda - 07/01/2022 2:50 PM EST Diabetes Foot Care Instructions When you have diabetes, proper foot care is very important. Poor foot care may lead to amputation of a foot or leg. As a person with diabetes, you are more vulnerable to foot problems, because diabetes can damage your nerves and reduce blood flow to your feet. Here are some diabetes foot care tips to follow: Wash and Dry Your Feet Daily Use mild soaps Use warm water Pat your skin dry; do not rub. Thoroughly dry your feet. After washing, use lotion on your feet to prevent cracking. Do not put lotion between your toes. Examine Your Feet Each Day Check the tops and bottoms of your feet. Have someone else look at your feet if you cannot see them. Check for dry, cracked skin. Look for blisters, cuts, scratches, or other sores. Check for redness, increased warmth, or tenderness when touching any area of your feet. Check for ingrown toenails, corns, and calluses. If you get a blister or sore from your shoes, do not pop it. Apply a bandage and wear a different pair of shoes. Take Care of Your Toenails Cut toenails after bathing, when they are soft. Cut toenails straight across and smooth with a nail file. Avoid cutting into the corners of toes. Do not cut cuticles. If you have neuropathy (or decreased sensation in your feet) a machine sign writer should always cut your toenails. Be Careful When Exercising Walk and exercise in comfortable shoes. Do not exercise when you have open sores on your feet. Protect Your Feet With Shoes and Socks Never go barefoot. Always protect your feet by wearing shoes or hard-soled slippers or footwear. Avoid shoes with high heels and pointed toes. Avoid shoes that expose your toes or heels (such as open-toed shoes or sandals). These types of shoes increase your risk for injury and potential infections. Try on new footwear with the type of socks you usually wear. Do not wear new shoes for more than an hour at a time. Change your socks daily. Look and feel inside your shoes before putting them on to make sure there are no foreign objects or rough areas. Avoid tight socks. Wear natural-fiber socks (cotton, wool, or a cotton-wool blend). Wear special shoes if your health care provider recommends them. Wear shoes/boots that will protect your feet from various weather conditions (cold, moisture, etc.). Make sure your shoes fit properly. If you have neuropathy (nerve damage), you may not notice that your shoes are too tight. Perform the footwear test described below. Footwear Test Use this simple test to see if your shoes fit correctly: Stand on a piece of paper. (Make sure you are standing and not sitting, because your foot changes shape when you stand.) Trace the outline of your foot. Trace the outline of your shoe. Compare the tracings: Is the shoe too narrow? Is your foot crammed into the shoe? The shoe should be at least 1/2 inch longer than your longest toe and as wide as your foot. Proper Shoe Choices The following types of shoes are best for people with diabetes Closed toes and heels Leather uppers without a seam inside At least 1/2 inch extra space at the end of your longest toe Inside of shoe should be soft with no rough areas Outer sole should be made of stiff material Shoes should be at least as wide as your feet Tips for Foot Care in Diabetes Don't wait to treat a minor foot problem if you have diabetes. Follow your health care provider's guidelines and first aid guidelines. Report foot injuries and infections to your health care provider immediately. Check water temperature with your elbow, not your foot. Do not use a heating pad on your feet. Do not cross your legs. Do not self-treat your corns, calluses, or other foot problems. Go to your health care provider or machine sign writer to treat these conditions. documented in this encounter [facility] 06-29-2022 Miscellaneous Notes Spoke with patient. Explained to her Rx for Amlodipine was sent to her pharmacy. Went over directions with her that it's a 5mg tablet but she is to only take half a tablet (2.5 mg) daily. Coni verbalized understanding. Scheduled for 2wk follow up BP check with Erica. Chelle Watts Left message for patient to return call Add amlodipine 2.5 mg a day. Recheck bp and hr in two weeks Manual Readin/78 Pulse: 79 BP Mack average: 157/75 P: 76 Repeat BP Check: 164/79 P71 #1 166/76 P78 #2 156/72 P76 #3 151/76 P78 #4 150/76 P78 #5 152/74 P76 #6 Reason for blood pressure check - Last BP elevated Patient is: Taking medication as prescribed Yes Took medication today Yes If no, date medication last taken N/A Experiencing side effects No BP was elevated at last appt 05/24/22. No BP medication changes were made at that time. Taking all medications as prescribed. Home readings have ranged 114-165/57-86 (did not bring home monitor today). States that she has had a lot of stress at home recently. Denies any chest pain, shortness of breath, dizziness, or headaches. Daily caffeine use. No personal history of tobacco use; no current exposure. Alert and oriented. Pt has been identified by name and birthdate: Yes Allergies reviewed: Yes Latex allergy: no. Medication - prescribed and OTC reviewed and updated: Yes Do you need any prescription refills prior to your next visit: No Health Maintenance: Reviewed and not up to date and provider notified Patient advised that she would be contacted after review by PCP. Erica Colorado LPN documented in this encounter [facility] 06-28-2022 Note [facility] 06-28-2022 History of Present illness Narrative Patient presents for B-12 injection. Denies any problems at this time. Patient instructed on any SE of medication, verbalized understanding and agreed to proceed with treatment. Tolerated injection well. Manual Readin/78 Pulse: 79 BP Mack average: 157/75 P: 76 Repeat BP Check: 164/79 P71 #1 166/76 P78 #2 156/72 P76 #3 151/76 P78 #4 150/76 P78 #5 152/74 P76 #6 Reason for blood pressure check - Last BP elevated Patient is: Taking medication as prescribed Yes Took medication today Yes If no, date medication last taken N/A Experiencing side effects No BP was elevated at last appt 05/24/22. No BP medication changes were made at that time. Taking all medications as prescribed. Home readings have ranged 114-165/57-86 (did not bring home monitor today). States that she has had a lot of stress at home recently. Denies any chest pain, shortness of breath, dizziness, or headaches. Daily caffeine use. No personal history of tobacco use; no current exposure. Alert and oriented. Pt has been identified by name and birthdate: Yes Allergies reviewed: Yes Latex allergy: no. Medication - prescribed and OTC reviewed and updated: Yes Do you need any prescription refills prior to your next visit: No Health Maintenance: Reviewed and not up to date and provider notified Patient advised that she would be contacted after review by PCP. Erica Colorado LPN documented in this encounter [facility] 06-10-2022 Miscellaneous Notes Called patient went over xray results. She will make her follow up appt now with ortho. Patient was okay with this. documented in this encounter [facility] 06-08-2022 Note [facility] 06-08-2022 Note [facility] 06-08-2022 History of Present illness Narrative Patient presents with: Finger Injury: L hand middle finger injury x last night, fell and caught self with hand HPI: Left middle finger pain: Duration: fell last night and hit her hand. She fell because she could not get her left leg up the stair going into her house. Location: left middle finger (bump on the extensor PIP < palmar MCP) Character: sharp Radiation: No. Aggravating: bending Relieving: tylenol has helped, wilda tape Pain relievers: Tylenol, ice Associated: Hx of neuropathy Pertinent negatives: Denies new numbness MEDICATIONS: carvedilol (COREG) 25 mg tablet^Take 1 tablet by mouth twice daily.^Disp: 180 tablet^Rfl: 1 pioglitazone (ACTOS) 30 mg tablet^Take 1 tablet by mouth once daily.^Disp: 90 tablet^Rfl: 1 lansoprazole (PREVACID) 30 mg capsule^TAKE 1 CAPSULE EVERY MORNING BEFORE EATING^Disp: 90 capsule^Rfl: 1 glimepiride (AMARYL) 2 mg tablet^Take 1 tablet by mouth daily with breakfast.^Disp: 90 tablet^Rfl: 1 allopurinol (ZYLOPRIM) 100 mg tablet^Take 2 tablets by mouth once daily.^Disp: 180 tablet^Rfl: 1 amiodarone (PACERONE) 200 mg tablet^Take 1 tablet by mouth once daily.^Disp: 90 tablet^Rfl: 1 albuterol (PROVENTIL) 2.5 mg /3 mL (0.083 %) nebulizer solution^Use 3 mL via nebulizer every 4 hours as needed for wheezing/shortness of breath. Use over 5-15minutes.^Disp: 90 mL^Rfl: 2 levothyroxine (SYNTHROID) 137 mcg tablet^Take 1 tablet by mouth once daily. Take on empty stomach. For thyroid.^Disp: 30 tablet^Rfl: 5 iron polysaccharide complex (IFEREX 150) 150 mg iron capsule^Take 1 capsule by mouth twice daily.^Disp: 180 capsule^Rfl: 3 folic acid 1 mg tablet^Take 1 tablet by mouth once daily.^Disp: 90 tablet^Rfl: 3 gabapentin (NEURONTIN) 300 mg capsule^Take 1 capsule by mouth three times daily for 180 days.^Disp: 270 capsule^Rfl: 1 dulaglutide (TRULICITY) 1.5 mg/0.5 mL pen injector^Inject 1.5 mg subcutaneously one time a week. Inject once per week. Discard Pen After^Disp: 6 mL^Rfl: 3 colestipol (COLESTID) 1 gram tablet^Take 1 tablet by mouth twice daily with meals.^Disp: 180 tablet^Rfl: 3 cholecalciferol, Vitamin D3, (VITAMIN D3) 1,250 mcg (50,000 unit) cap capsule^Take 1 capsule by mouth one time a week.^Disp: 12 capsule^Rfl: 3 blood sugar diagnostic (BLOOD GLUCOSE TEST) test strip^Test blood sugar(s) onetimes daily. Dx: Other DM Code E11.49 Insulin: Yes^Disp: 50 Strip^Rfl: 11 glimepiride (AMARYL) 2 mg tablet^Take 1 tablet by mouth daily with breakfast.^Disp: 30 tablet^Rfl: 0 Syringe with Needle, Disp, (BD LUER-TALON SYRINGE) 3 mL 25 gauge x 1 ^USE SYRINGE TO INJECT B12 ONCE A MONTH^Disp: 12 Each^Rfl: 0 cyanocobalamin 1,000 mcg/mL^INJECT 1 MILLILITER INTRAMUSCULARLY ONCE A MONTH^Disp: 1 mL^Rfl: 12 acetaminophen (TYLENOL) 500 mg tablet^Take 1,000 mg by mouth every 8 hours as needed. ^Disp: ^Rfl: Insulin [place], Disposable, (BD ULTRA-FINE HORTENCIA PEN NEEDLE) 32 gauge x ndle^Use one needle for each dose. 3x/day. E11.65 E11.49^Disp: 200 Each^Rfl: 11 clotrimazole (LOTRIMIN, CLOTRIM) 1 % cream^Apply 1 application to affected area twice daily.^Disp: 30 g^Rfl: 1 (Patient taking differently: Apply 1 application to affected area as needed.) triamcinolone acetonide (KENALOG) 0.1 % cream^apply to affected area twice a day^Disp: 15 g^Rfl: 1 blood sugar diagnostic (EASYMAX N) test strip^Frequency of testin times daily DX E11.49 Insulin YES^Disp: 150 Each^Rfl: 11 Lancets lancets^Test glucose 2x/daily, 250.02, insulin use: yes^Disp: 100 Each^Rfl: 11 psyllium Husk (FIBER-CAPS) 0.52 g ORAL capsule^Take 2 capsules by mouth once daily.^Disp: ^Rfl: 0 multivitamins w-iron(FLINTSTONES PLUS IRON CHEWABLE TAB)^Take one(1) tablet daily with meal.^Disp: ^Rfl: 0 ALLERGIES: ALLERGIES Allergen Reactions Iodine Rash, Unknown, Hives Metformin Other: See Comments Elevated renal function Simvastatin Contraindication-Medical Surgical statin myopathy Civsnty-Ejo-Tdx Red* Other: See Comments myopathy Vytorin 10-10 [Ezet* Contraindication-Medical Surgical myopathy VITALS: BP 156/84 Pulse 82 Temp (!) 35.6 C (96 F) Resp 18 Wt 94.2 kg (207 lb 9.6 oz) SpO2 96% BMI 31.57 kg/m PE: Pleasant, in no acute distress. Hand: left. No erythema, edema, ecchymosis. 4mm smooth bump on the middle finger extensor tendon over the PIP. Diminished flexion of the middle finger. Symmetric intact but weak flexion and extension strength against resistance. Tender middle finger MCP and PIP. The remainder of the fingers, metatarsals, and wrist are nontender to palpation. ASSESSMENT/PLAN: 1. Finger pain, left - ICD9: 729.5, ICD10: M79.645 - XR DIGIT GENERAL 3V FRONTAL/LAT/OBL LEFT - degenerative changes. Radiopaque body proximal to the dorsal PIP joint may be an avulsion. Lateral (hypothenar) aspect DIP radiopaque body probably represents a remote injury/calcification. Radiology interpretation is pending. The patient will be notified if there is a significant finding in the report not discussed at the time of the visit. Placed in clamshell alluminum foam finger splint. She ambulates with a walker. - CONSULT TO ORTHOPAEDICS to further assess for extensor avulsion. Chun Brewster MD documented in this encounter [facility] 06-08-2022 Miscellaneous Notes Arlene from [facility] is calling to report patient fell going up the steps last night. Ibeth springer came to check her out everything was fine, but this am she is unable to bend her middle finger some swelling just does not know what hand. Nurse is going to have patient report to our [facility] care. documented in this encounter [facility] 06-07-2022 Miscellaneous Notes Letter set on provider's desk for signature with addressed envelope. Will mail out once signed Letter created. Please print off. My computer is no allowing me to print. Patient calls and states that her handicap placard is set to . Patient asking if provider can write a letter for handicap placard? Patient asking for letter to be mailed out. Home address verified. Please review and advise, Chacha Smith RN documented in this encounter [facility] 05-24-2022 Miscellaneous Notes Addended by: STEFAN MOORE on: 05/24/2022 01:19 PM Modules accepted: Orders documented in this encounter [facility] 05-24-2022 History of Present illness Narrative Patient presents with: Follow Up HPI: Patient presents today for office visit for follow up. Needs B-12 injection while here. DM: Overall feeling well. Sugars have been good. Avg 100. No side effects to medication. No Hypoglycemic spells. Watches diet. Does not exercise. No polyuria or polydipsia. Last a1c was 5.8 in March. HTN: Checks BP at home. Has home nurse from [facility] who comes weekly and checks it. Has been slightly up the last month No chest pain No shortness of breath No dizziness No headaches Follows Cardiology. Dr. Cortez. Last seen 03/02/22. Due in August. No A-fib episodes. Released by hem/onc, Dr. Chaudhry on 05/02/22. Needs follow up chest xray. Was treated for pneumonia. Nephrology has asked us to follow labs. Energy is unchanged. MEDICATIONS: Current Outpatient Medications Medication Sig albuterol (PROVENTIL) 2.5 mg /3 mL (0.083 %) nebulizer solution Use 3 mL via nebulizer every 4 hours as needed for wheezing/shortness of breath. Use over 5-15minutes. levothyroxine (SYNTHROID) 137 mcg tablet Take 1 tablet by mouth once daily. Take on empty stomach. For thyroid. iron polysaccharide complex (IFEREX 150) 150 mg iron capsule Take 1 capsule by mouth twice daily. folic acid 1 mg tablet Take 1 tablet by mouth once daily. gabapentin (NEURONTIN) 300 mg capsule Take 1 capsule by mouth three times daily for 180 days. dulaglutide (TRULICITY) 1.5 mg/0.5 mL pen injector Inject 1.5 mg subcutaneously one time a week. Inject once per week. Discard Pen After colestipol (COLESTID) 1 gram tablet Take 1 tablet by mouth twice daily with meals. pioglitazone (ACTOS) 30 mg tablet Take 1 tablet by mouth once daily. lansoprazole (PREVACID) 30 mg capsule TAKE 1 CAPSULE EVERY MORNING BEFORE EATING cholecalciferol, Vitamin D3, (VITAMIN D3) 1,250 mcg (50,000 unit) cap capsule Take 1 capsule by mouth one time a week. carvedilol (COREG) 25 mg tablet Take 1 tablet by mouth twice daily. blood sugar diagnostic (BLOOD GLUCOSE TEST) test strip Test blood sugar(s) onetimes daily. Dx: Other DM Code E11.49 Insulin: Yes glimepiride (AMARYL) 2 mg tablet Take 1 tablet by mouth daily with breakfast. glimepiride (AMARYL) 2 mg tablet Take 1 tablet by mouth daily with breakfast. Syringe with Needle, Disp, (BD LUER-TALON SYRINGE) 3 mL 25 gauge x 1 USE SYRINGE TO INJECT B12 ONCE A MONTH amiodarone (PACERONE) 200 mg tablet Take 1 tablet by mouth once daily. allopurinol (ZYLOPRIM) 100 mg tablet Take 2 tablets by mouth once daily. cyanocobalamin 1,000 mcg/mL INJECT 1 MILLILITER INTRAMUSCULARLY ONCE A MONTH acetaminophen (TYLENOL) 500 mg tablet Take 1,000 mg by mouth every 8 hours as needed. Insulin [place], Disposable, (BD ULTRA-FINE HORTENCIA PEN NEEDLE) 32 gauge x 5/32 ndle Use one needle for each dose. 3x/day. E11.65 E11.49 clotrimazole (LOTRIMIN, CLOTRIM) 1 % cream Apply 1 application to affected area twice daily. (Patient taking differently: Apply 1 application to affected area as needed.) triamcinolone acetonide (KENALOG) 0.1 % cream apply to affected area twice a day blood sugar diagnostic (EASYMAX N) test strip Frequency of testin times daily DX E11.49 Insulin YES Lancets lancets Test glucose 2x/daily, 250.02, insulin use: yes psyllium Husk (FIBER-CAPS) 0.52 g ORAL capsule Take 2 capsules by mouth once daily. multivitamins w-iron(FLINTSTONES PLUS IRON CHEWABLE TAB) Take one(1) tablet daily with meal. Current Facility-Administered Medications Medication Dose Route Frequency cyanocobalamin 1,000 mcg injection 1,000 mcg INTRAMUSCULAR q 4 WEEKS ALLERGIES: ALLERGIES Allergen Reactions Iodine Rash, Unknown, Hives Metformin Other: See Comments Elevated renal function Simvastatin Contraindication-Medical Surgical statin myopathy Quihmns-Pof-Svq Red* Other: See Comments myopathy Vytorin 10-10 [Ezet* Contraindication-Medical Surgical myopathy PAST MEDICAL HISTORY Diagnosis Date Acute gastritis without mention of hemorrhage Anemia, unspecified Anxiety state, unspecified Atrial fibrillation (HCC) B12 deficiency Diverticulosis of colon (without mention of hemorrhage) Esophageal reflux Gastritis Generalized osteoarthrosis, unspecified site Gout Hemorrhage of gastrointestinal tract, unspecified Hemorrhoids Iron deficiency anemia, unspecified Migraine without aura has been quiescent since menopause. Other and unspecified hyperlipidemia Type II or unspecified type diabetes mellitus without mention of complication, uncontrolled PAST SURGICAL HISTORY Procedure Laterality Date ARTHRP KNE CONDYLE&PLATU MEDIAL&LAT COMPARTMENTS 07/23/2007 Knee replacement, total right CARPAL TUNNEL 05/2014 left COLONOSCOPY FLX DX W/COLLJ SPEC WHEN PFRMD 04/14/2005 Colonoscopy COLONOSCOPY FLX DX W/COLLJ SPEC WHEN PFRMD 01/21/2016 Colonoscopy COLONOSCOPY GEN ANES 07/31/2020 External/internal hemorrhoids EGD 07/31/2020 Mild Gastritis EGD TRANSORAL BIOPSY SINGLE/MULTIPLE 06/25/2007 LAPAROSCOPIC CHOLECYSTECTOMY 01/08/2018 PAST SURGICAL HISTORY OF 1967 right breast cyst benign PAST SURGICAL HISTORY OF 2010 Rt carpal tunnel PAST SURGICAL HISTORY OF 12/2016 cataract surgery right eye TONSILLECTOMY PRIMARY/SECONDARY <AGE 12 Tonsillectomy FAMILY HISTORY Problem Relation Age of Onset Heart Mother Heart Father Pneumonia Sister No Known Problems Sister Heart Brother Cancer Maternal Grandfather Cancer Paternal Grandfather Colon Cancer No Family History Social History Tobacco Use Smoking status: Never Smokeless tobacco: Never Vaping Use Vaping Use: Never used Substance Use Topics Alcohol use: No Drug use: No Reviewed current medications, allergies, past medical history, surgical history, family history and social history today. REVIEW OF SYSTEMS GI: Negative for blood in stools or black stools All other reviewed and negative other than HPI. HEALTH MAINTENANCE: Reviewed health maintenance issues today and recommended the following in detail. ADVANCE DIRECTIVE DISCUSSION is on file DEPRESSION ASSESSMENT Never done DILATED RETINAL EXAM -gets done once a year DIABETIC FOOT EXAMsees every three months VITALS: BP 150/58 Pulse 61 Ht 172.7 cm (5' 8 ) Wt 94.8 kg (209 lb) SpO2 97% BMI 31.78 kg/m Last 4 Encounter Wt Readings: Date: Wt: 05/02/2022 96.6 kg (213 lb) 02/14/2022 98 kg (216 lb) 01/31/2022 102.1 kg (225 lb) 01/14/2022 101.4 kg (223 lb 9.6 oz) PHYSICAL EXAMINATION: General appearance: Well appearing, alert, in no acute distress, well-hydrated, well nourished., Wheelchair, and uses walker in the house. Denies any falls. Skin: Skin color, texture, turgor normal, no suspicious rashes or lesions Lungs: Lungs clear to auscultation. No wheezing, rhonchi, rales Heart: RRR without murmur, gallop, or rubs. No ectopy Abdomen: Normal abdominal exam, Abdomen soft, non-tender. Bowel sounds normal. No masses, organomegaly Extremities: No deformities, edema, skin discoloration, clubbing or cyanosis. Good capillary refill. Musculoskeletal: No joint swelling, deformity, or tenderness ASSESSMENT/PLAN: 1. Bacterial pneumonia - ICD9: 482.9, ICD10: J15.9 (primary diagnosis) - clinically is doing better. Recheck xray to ensure has cleareed. - XR CHEST 2V FRONTAL/LAT 2. Secondary hypertension due to renal disease - ICD9: 405.99, ICD10: I15.1 - CARVEDILOL 25 MG TABLET 3. Type 2 diabetes mellitus 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 polyneuropathy, without long-term current use of insulin (HCC) - ICD9: 250.60, 357.2, ICD10: E11.42 Controlled. - Continue current medications - GLIMEPIRIDE 2 MG TABLET 4. Gout, unspecified cause, unspecified chronicity, unspecified site - ICD9: 274.9, ICD10: M10.9 - stable. - ALLOPURINOL 100 MG TABLET 5. Paroxysmal atrial fibrillation (HCC) - ICD9: 427.31, ICD10: I48.0 - per cardiology. Continue meds. - AMIODARONE 200 MG TABLET 6. Type 2 diabetes mellitus 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 peripheral angiopathy without gangrene, without long-term current use of insulin (HCC) - ICD9: 250.70, 443.81, ICD10: E11.51 - stable. 7. Pure hypercholesterolemia - ICD9: 272.0, ICD10: E78.00 -doing well. 8. PVD (peripheral vascular disease) (HCC) - ICD9: 443.9, ICD10: I73.9 - no issues. 9. Cardiomyopathy, nonischemic (HCC) - ICD9: 425.4, ICD10: I42.8 - Red flags for re-assessment reviewed with patient in detail. 10. DAYANA (obstructive sleep apnea) - ICD9: 327.23, ICD10: G47.33 - uses cpap. 11. B12 deficiency - ICD9: 266.2, ICD10: E53.8 - 12. Type 2 diabetes mellitus with stage 3b chronic kidney disease, without long-term current use of insulin (HCC) - ICD9: 250.40, 585.3, ICD10: E11.22, N18.32 - BASIC METABOLIC PNL - PTH INTACT BLD - VITAMIN D 25 HYDROXY - PHOSPHORUS INORGANIC 13. 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 14. Hyperparathyroidism due to vitamin D deficiency (HCC) - ICD9: 252.02, ICD10: E21.1 - follow labs. Back to nephro if needed. 15. Other specified hypothyroidism - ICD9: 244.8, ICD10: E03.8 - Instructed patient on importance of taking on an empty stomach either first thing in the morning or at bedtime. - TSH BLD 16. Iron deficiency anemia, unspecified iron deficiency anemia type - ICD9: 280.9, ICD10: D50.9 - CBC + DIFF - IRON + TIBC 17. Anxiety state - ICD9: 300.00, ICD10: F41.1 - stable. Stefan Moore RTO in three months, bp check in one month documented in this encounter [facility] 05-03-2022 History of Present illness Narrative Patient presents for B-12 injection. Denies any problems at this time. Patient instructed on any SE of medication, verbalized understanding and agreed to proceed with treatment. Tolerated injection well. Erica Colorado LPN documented in this encounter [facility] 05-02-2022 History of Present illness Narrative PATIENT NAME: Coni Romero. CLINIC NO: [id number]. ATTENDING PHYSICIAN: Yadira Chaudhry MD. DATE OF SERVICE: 05/02/2022 DIAGNOSIS: Anemia of chronic disease secondary to stage 3b chronic renal failure HPI: 81-year-old female with history of type 2 diabetes mellitus, chronic renal failure stage 3b, congestive heart failure and diabetic neuropathy, hypothyroidism who presented with worsening anemia since May 2020. She had a rather exhaustive work-up for her anemia and she was admitted to [facility] in July. She underwent both an upper and lower endoscopy which did not reveal any obvious bleeding source. She subsequently was sent to [place] where she had a capsule endoscopy which was also negative. She started iron supplement once daily since August. She had a blood transfusion in July, and again last month for severe anemia. Subsequent labs to reviewed iron deficiency and she received iron sucrose in addition to blood transfusion for anemia. Interim history: She has chronic fatigue. She denies any GI bleeding, changes in bowel habits, or melena. She has chronic shortness of breath with exertion. All medications & allergies updated and reviewed by me REVIEW OF SYSTEMS: CONSTITUTIONAL: No fevers, chills, nightsweats, or weight loss. HEENT: Denies frequent or severe heaches, nasal congestion/sinus symptoms, problematic allergy problems. EYES: No diplopia or blurry vision. CARDIOVASCULAR: No chest pain, dyspnea, no palpitations, orthopnea, PND, +ankle edema. PULM: No dyspnea, unexplained cough. GI: No dysphagia/odynophagia, problematic reflux, constipation, diarrhea, changes in stool habits, hematochezia, melena. : No new urinary complaints, including dysuria, gross hematuria or pyuria. NEURO: No new balance problems, peripheral weakness/paresthesias or numbness of concern. MUSC-SKEL: No new joint pain, swelling, or erythema. PSY: No concerns regarding depression, anxiety or panic. INTEGUMENTARY: No new skin changes (rash, new or changing mole, new growth) PHYSICAL EXAMINATION: 81 year-old moderately obese female in no acute distress BP 154/67 Pulse 85 Temp 97.8 Wt 213 lb (96.6kg) HEENT: Head is normocephalic, atraumatic. Sclerae white, conjunctivae pink. PEERL. EOMs are intact. Oropharynx is benign. +pallor LYMPHATICS: There is no palpable adenopathy in the neck, supraclavicular region, axillae, or groin. LUNGS: Diminished breath sound with bibasilar rales HEART: Heart is irregular, soft grade 1 systolic murmurs, + S4 gallops, no rubs. ABDOMEN: Soft and nontender without organomegaly. No masses can be palpated. EXTREMITIES: Are trace edema. NEUROLOGIC: Exam is physiologic; sensory neuropathy glove and stocking distribution worsening lower extrmity. LABS: Component Latest Ref Rng & Units 03/17/2022 WBC 3.70 - 11.00 k/uL 4.98 RBC 3.90 - 5.20 m/uL 3.44 (L) Hemoglobin 11.5 - 15.5 g/dL 10.3 (L) Hematocrit 36.0 - 46.0 % 32.7 (L) MCV 80.0 - 100.0 fL 95.1 MCH 26.0 - 34.0 pg 29.9 MCHC 30.5 - 36.0 g/dL 31.5 RDW-CV 11.5 - 15.0 % 15.9 (H) Platelet Count 150 - 400 k/uL 154 MPV 9.0 - 12.7 fL 9.8 Neut% % 69.1 Abs Neut (ANC) 1.45 - 7.50 k/uL 3.44 Lymph% % 18.7 Abs Lymph 1.00 - 4.00 k/uL 0.93 (L) Door% % 7.0 Abs Door <0.87 k/uL 0.35 Eosin% % 4.2 Abs Eosin <0.46 k/uL 0.21 Baso% % 0.8 Abs Baso <0.11 k/uL 0.04 Immature Gran % % 0.2 IMMATURE GRANS (ABS) <0.10 k/uL <0.03 NRBC /100 WBC 0.0 Absolute nRBC <0.01 k/uL <0.01 DTYPE Auto Component Latest Ref Rng & Units 03/17/2022 Glucose 74 - 99 mg/dL 81 BUN 7 - 21 mg/dL 30 (H) Creatinine 0.58 - 0.96 mg/dL 1.49 (H) Sodium 136 - 144 mmol/L 141 Potassium 3.7 - 5.1 mmol/L 4.3 Chloride 97 - 105 mmol/L 106 (H) CO2 22 - 30 mmol/L 27 Anion Gap 9 - 18 mmol/L 8 (L) Calcium 8.5 - 10.2 mg/dL 8.9 eGFR >=60 mL/min/1.73m 35 (L) Iron 41 - 186 ug/dL 57 TIBC 232 - 386 ug/dL 297 Transferrin Saturation 15.0 - 57.0 % 19.2 Ferritin 14.7 - 205.1 ng/mL 234.0 (H) ASSESSMENT: 81-year-old female with anemia of chronic disease secondary to chronic renal failure, stage 3b (GFR 35) -Iron study is normal PLAN: -Continue iron supplement twice daily & folic acid 1 mg once daily. -We discuss erythropoietin treatment for anemia of chronic disease if hemoglobin is less than 10 gm/dL for symptomatic anemia. -Follow-up with PCP Portions of this documentation were copied and pasted from previous office visit notes in order to provide a cohesive continuity of the history. The note has been reviewed and edited and updated as necessary. Yadira Chaudhry MD Cc: Dr. Stefan Moore documented in this encounter [facility] 04-08-2022 Miscellaneous Notes Patient is scheduled for follow up. Please schedule f/u 7-10 days on pneumonia. Please see addendum on chart note: new pneumonia left lung Cefdinir, doxycycline rx called sent to pharmacy. Eduardo King PA-C Yung is thinking should of been Augmentin with doxy not Amoxil. Could try changing to Augmentin and continuing doxy. Or could try cefdinir as broad spectrum ATB Levaquin could be used but would treat any yeast topically not with fluconazole. Yung would be more than happy to discuss if you would like to also just give him a call. Yes I am aware. This is a rare side effect. Patient was already treated with amoxicillin and doxycycline with persistent and slight worsening pneumonia. Does she have a recommendation? If not I would proceed with current medications. Pharmacist from [facility] calls and states that patient is on amiodarone which has a reaction with both Levaquin and fluconazole. These medications taken together and cause a prolong QT interval and can cause an arrhyhtmia. Please review and advise, Chacha Smith RN documented in this encounter [facility] 04-07-2022 Instructions Mason King PA-C - 04/07/2022 10:56 AM EDT Levaquin as directed per prescription If you should breakout in a rash, stop the medicine and call the office. This category of medication may cause tendon ruptures (3%) so use caution. It may also cause photosensitivity and may trigger heart arrhythmias (not common). Any antibiotic has the potential to cause diarrhea due to alteration in the normal bacterial elier of the gut. This can be reduced by eating yogurt with active cultures daily while on the medication. If diarrhea becomes severe (watery, large volumes or more than 3-4/day) call the office. If you do not like yogurt, ask the pharmacist for a probiotic supplement such as lactobacillus or acidophillus. Women may experience yeast vaginitis due to alteration in the vaginal elier. Symptoms include vaginal itching, irritation, and often a clumpy white discharge. If this occurs, there are several effective over the counter remedies available, including one-dose treatments. If these are unsuccessful, call the office. Antibiotics may interfer with control. If you are on oral contraceptives, use another form of protection (condoms, foams, jellies, diaphragm) throught the end of whatever pill pack you are on in 10 days. documented in this encounter [facility] 04-07-2022 History of Present illness Narrative 81 year old female with c/o f/u on pneumonia from 03/28/2022 CXR RLL infiltrate consistent with patient exam 04/06/2022 HH nurse identified persistent cough and thrush Completed doxycycline. Patient states that she was feeling better with the sudden downturn over the last 3 days. No complications from doxycycline. No fever or chills but cough is increasing as well as production, discomfort in anterior and posterior chest. Short of breath with exertion. Coughing up thick yellow and green sputum. Continues with significant fatigue, any level of exertion seems to wipe her out. Has been sleeping more over the last few days. Has not had much of an appetite No diarrhea HISTORIES FAMILY HISTORY Problem Relation Age of Onset Heart Mother Heart Father Pneumonia Sister No Known Problems Sister Heart Brother Cancer Maternal Grandfather Cancer Paternal Grandfather Colon Cancer No Family History PAST MEDICAL HISTORY Diagnosis Date Acute gastritis without mention of hemorrhage Anemia, unspecified Anxiety state, unspecified Atrial fibrillation (HCC) B12 deficiency Diverticulosis of colon (without mention of hemorrhage) Esophageal reflux Gastritis Generalized osteoarthrosis, unspecified site Gout Hemorrhage of gastrointestinal tract, unspecified Hemorrhoids Iron deficiency anemia, unspecified Migraine without aura has been quiescent since menopause. Other and unspecified hyperlipidemia Type II or unspecified type diabetes mellitus without mention of complication, uncontrolled PAST SURGICAL HISTORY Procedure Laterality Date ARTHRP KNE CONDYLE&PLATU MEDIAL&LAT COMPARTMENTS 07/23/2007 Knee replacement, total right CARPAL TUNNEL 05/2014 left COLONOSCOPY FLX DX W/COLLJ SPEC WHEN PFRMD 04/14/2005 Colonoscopy COLONOSCOPY FLX DX W/COLLJ SPEC WHEN PFRMD 01/21/2016 Colonoscopy COLONOSCOPY GEN ANES 07/31/2020 External/internal hemorrhoids EGD 07/31/2020 Mild Gastritis EGD TRANSORAL BIOPSY SINGLE/MULTIPLE 06/25/2007 LAPAROSCOPIC CHOLECYSTECTOMY 01/08/2018 PAST SURGICAL HISTORY OF 1967 right breast cyst benign PAST SURGICAL HISTORY OF 2010 Rt carpal tunnel PAST SURGICAL HISTORY OF 12/2016 cataract surgery right eye TONSILLECTOMY PRIMARY/SECONDARY <AGE 12 Tonsillectomy Social History Tobacco Use Smoking status: Never Smokeless tobacco: Never Vaping Use Vaping Use: Never used Substance Use Topics Alcohol use: No Drug use: No ACTIVE PROBLEM LIST Esophageal Reflux Paroxysmal Atrial Fibrillation (Hcc) Anxiety State Osteoarthritis Type 2 Diabetes Mellitus With Diabetic Polyneuropathy, Without Long-Term Current Use of Insulin (Hcc) Osteopenia Thoracic Or Lumbosacral Neuritis Or Radiculitis, Unspecified Abnormality of Gait Statin Myopathy Pvd (Peripheral Vascular Disease) (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) Dayana (Obstructive Sleep Apnea) Type 2 Diabetes Mellitus With Diabetic Peripheral Angiopathy Without Gangrene, Without Long-Term Current Use of Insulin (Hcc) Anemia Due to Stage 3a Chronic Kidney Disease (Hcc) Iron Deficiency Anemia Anemia Due to Stage 3b Chronic Kidney Disease (Hcc) Anemia Due to Blood Loss Current Outpatient Medications Medication Sig Dispense Refill levothyroxine (SYNTHROID) 137 mcg tablet Take 1 tablet by mouth once daily. Take on empty stomach. For thyroid. 30 tablet 5 iron polysaccharide complex (IFEREX 150) 150 mg iron capsule Take 1 capsule by mouth twice daily. 180 capsule 3 folic acid 1 mg tablet Take 1 tablet by mouth once daily. 90 tablet 3 doxycycline (VIBRA-TABS) 100 mg tablet Take 1 tablet by mouth twice daily for 10 days. 20 tablet 0 Promethazine-DM (PHENERGAN-DM) 6.25-15 mg/5 mL syrup Take 5 mL by mouth four times daily as needed. 120 mL 0 gabapentin (NEURONTIN) 300 mg capsule Take 1 capsule by mouth three times daily for 180 days. 270 capsule 1 dulaglutide (TRULICITY) 1.5 mg/0.5 mL pen injector Inject 1.5 mg subcutaneously one time a week. Inject once per week. Discard Pen After 6 mL 3 colestipol (COLESTID) 1 gram tablet Take 1 tablet by mouth twice daily with meals. 180 tablet 3 pioglitazone (ACTOS) 30 mg tablet Take 1 tablet by mouth once daily. 90 tablet 1 lansoprazole (PREVACID) 30 mg capsule TAKE 1 CAPSULE EVERY MORNING BEFORE EATING 90 capsule 1 cholecalciferol, Vitamin D3, (VITAMIN D3) 1,250 mcg (50,000 unit) cap capsule Take 1 capsule by mouth one time a week. 12 capsule 3 carvedilol (COREG) 25 mg tablet Take 1 tablet by mouth twice daily. 360 tablet 0 blood sugar diagnostic (BLOOD GLUCOSE TEST) test strip Test blood sugar(s) onetimes daily. Dx: Other DM Code E11.49 Insulin: Yes 50 Strip 11 glimepiride (AMARYL) 2 mg tablet Take 1 tablet by mouth daily with breakfast. 30 tablet 0 glimepiride (AMARYL) 2 mg tablet Take 1 tablet by mouth daily with breakfast. 90 tablet 3 Syringe with Needle, Disp, (BD LUER-TALON SYRINGE) 3 mL 25 gauge x 1 USE SYRINGE TO INJECT B12 ONCE A MONTH 12 Each 0 amiodarone (PACERONE) 200 mg tablet Take 1 tablet by mouth once daily. 90 tablet 3 allopurinol (ZYLOPRIM) 100 mg tablet Take 2 tablets by mouth once daily. 180 tablet 3 cyanocobalamin 1,000 mcg/mL INJECT 1 MILLILITER INTRAMUSCULARLY ONCE A MONTH 1 mL 12 acetaminophen (TYLENOL) 500 mg tablet Take 1,000 mg by mouth every 8 hours as needed. Insulin [place], Disposable, (BD ULTRA-FINE HORTENCIA PEN NEEDLE) 32 gauge x 5/32 ndle Use one needle for each dose. 3x/day. E11.65 E11.49 200 Each 11 clotrimazole (LOTRIMIN, CLOTRIM) 1 % cream Apply 1 application to affected area twice daily. 30 g 1 triamcinolone acetonide (KENALOG) 0.1 % cream apply to affected area twice a day 15 g 1 blood sugar diagnostic (EASYMAX N) test strip Frequency of testin times daily DX E11.49 Insulin YES 150 Each 11 Lancets lancets Test glucose 2x/daily, 250.02, insulin use: yes 100 Each 11 psyllium Husk (FIBER-CAPS) 0.52 g ORAL capsule Take 2 capsules by mouth once daily. 0 multivitamins w-iron(FLINTSTONES PLUS IRON CHEWABLE TAB) Take one(1) tablet daily with meal. 0 Current Facility-Administered Medications Medication Dose Route Frequency Provider Last Rate Last Admin cyanocobalamin 1,000 mcg injection 1,000 mcg INTRAMUSCULAR q 4 WEEKS Stefan Moore MD 1,000 mcg at 03/24/22 1346 SHINGRIX VACCINE(3 of 3) due on 05/09/2020 ADVANCE DIRECTIVE DISCUSSION Never done DEPRESSION ASSESSMENT Never done DILATED RETINAL EXAM due on 08/04/2021 EXAM: BP 126/58 Pulse 84 Temp 37.3 C (99.2 F) (Right Tympanic) Resp 20 SpO2 94% Pleasant older woman in no acute distress. Alert and oriented all spheres. Normal affect and cognition. Speech normal. No deficits to learning or comprehension. Skin warm, dry, pink to lips and nailbeds. Normal turgor. Respirations regular and unlabored. Severe moist cough HEENT: NCAT. No scleral icterus or conjunctival injection. TM's clear. Nose and oropharynx free from injection or lesion. Oral membranes moist and pink. No cervical lymph nodes. Thyroid non-tender, no masses, or enlargement. Carotids pulses 2+/4+ without bruits. No JVD with HOB at 30 degrees. Chest is normal shape. Lungs auscultate for inspiratory moist crackles right base, rhonchi intermittently which mostly cleared with cough. HRRR without murmur or gallop. No lifts, heaves, or rubs. Extrem: no clubbing or cyanosis. Edema: none. Extremities are warm and pink with prompt capillary refill. ASSESSMENT/PLAN: 1. Pneumonia of right lower lobe due to infectious organism - ICD9: 486, ICD10: J18.9 Discharged with nebulizer - BENZONATATE 100 MG CAPSULE - BENZONATATE 100 MG CAPSULE - LEVOFLOXACIN 250 MG TABLET - XR CHEST 2V FRONTAL/LAT - ALBUTEROL SULFATE 2.5 MG/3 ML (0.083 %) SOLUTION FOR NEBULIZATION F/u 2 weeks 2. Thrush (oral) - ICD9: 112.0, ICD10: B37.0 - FLUCONAZOLE 150 MG TABLET 3. Herpes labialis - ICD9: 054.9, ICD10: B00.1 Start of sx next ep[isode Reviewed new med - VALACYCLOVIR 1 GRAM TABLET Mason King PA-C documented in this encounter [facility] 04-06-2022 Miscellaneous Notes nurse calling on behalf of patient stating patient has persistent cough and possible oral thrush. Scheduled appointment for patient tomorrow AM. Karissa Harden RN documented in this encounter [facility] 04-01-2022 Miscellaneous Notes See other mychart. Pt received message TC to pt, phone rings busy. Yusuf You LPN 03/30/2022 result note Bart Méndeza, Your chest x-ray does show right lower lobe pneumonia as I suspected. Please let me know if you are not improving over the next 3 to 4 days on the antibiotic. We should see you back in 2 weeks to recheck your physical exam and also to repeat chest x-ray to make sure it clears. Let me know you got this message. Best, Mason King PA-C Pt sent mychart requesting results of xray documented in this encounter [facility] 03-29-2022 Miscellaneous Notes Arlene with [facility] called for last office visit to be faxed to [phone]. Pt was identified by name and date of . Done. Brittany Colby LPN documented in this encounter [facility] 03-29-2022 Miscellaneous Notes Changed to TE documented in this encounter [facility] 03-29-2022 Miscellaneous Notes Patient has been identified by name and date of : Yes Pharmacy phones for refill(s): Requested Prescriptions Pending Prescriptions Disp Refills iron polysaccharide complex (IFEREX 150) 150 mg iron capsule 180 capsule 3 Sig: Take 1 capsule by mouth twice daily. folic acid 1 mg tablet 90 tablet 3 Sig: Take 1 tablet by mouth once daily. Date of last office visit in primary care: 03/28/22 Future visit: 05/24/22 Last 2 Encounter Wt Readings: Date: Wt: 02/14/2022 98 kg (216 lb) 01/31/2022 102.1 kg (225 lb) Previous labs/tests for medication: Blood Pressure: BUN (mg/dL) Date Value 03/17/2022 30 04/02/2021 33 Sodium (mmol/L) Date Value 03/17/2022 141 04/02/2021 140 Last 1 Encounter BP Readings: Date: BP: 03/28/2022 130/60 Liver Function: ALT (U/L) Date Value 02/10/2022 8 12/01/2020 7 AST (U/L) Date Value 02/10/2022 13 12/01/2020 13 Please advise. Thank you. Darling Guo RN documented in this encounter [facility] 03-28-2022 Instructions M Tyree King PA-C - 03/28/2022 4:18 PM EDT Acute Bronchitis What is acute bronchitis? Acute bronchitis is an infection of the bronchial (say: oidcu-vkp-mie ) tree. The bronchial tree is made up of the tubes that carry air into your lungs. When these tubes get infected, they swell and mucus (thick fluid) forms inside them. This makes it hard for you to breathe. You may cough up mucus and wheeze (make a whistling sound when you breathe). What causes acute bronchitis? Acute bronchitis is almost always caused by viruses that attack the lining of the bronchial tree and cause infection. As your body fights back against these viruses, more swelling occurs and more mucus is made. It takes time for your body to kill the viruses and heal the damage to your bronchial tubes. In most cases, the same viruses that cause colds cause acute bronchitis. Research has shown that bacterial infection is a much less common cause of bronchitis than we used to think. Very rarely, an infection caused by a fungus can cause acute bronchitis. How do people get acute bronchitis? The viruses that cause acute bronchitis are sprayed into the air or onto people s hands when they cough. You can get acute bronchitis if you breathe in these viruses. You can also get it if you touch a hand that is coated with the viruses. If you smoke or are around damaging fumes (such as those in certain kinds of factories), you are more likely to get acute bronchitis and to have it longer. This is because your bronchial tree is already damaged. How is acute bronchitis treated? Most cases of acute bronchitis will go away on their own after a few days or a week. It's a good idea to get plenty of rest, drink lots of noncaffeinated fluids (for example, water and fruit juices) and increase the humidity in your environment. Because acute bronchitis is usually caused by viruses, antibiotics (medicines that kill bacteria) usually do not help. Even if you cough up mucus that is colored or thick, antibiotics probably won t help you get better any faster. If you smoke, you should cut down on the number of cigarettes you smoke, or stop smoking altogether. This will help your bronchial tree heal faster. For some people with acute bronchitis, doctors prescribe medicines that are usually used to treat asthma. These medicines can help open the bronchial tubes and clear out mucus. They are usually given with an inhaler. An inhaler sprays the medicine right into the bronchial tree. Your doctor will decide if this treatment is right for you. How long will the cough from acute bronchitis last? You should call your doctor if: You continue to wheeze and cough for more than 2 weeks, especially at night or when you are active. You continue to cough for more than 2 weeks and sometimes have a bad-tasting fluid come up into your mouth. You have a cough, you feel very sick and weak, and you have a high fever that doesn t go down. You cough up blood. You have trouble breathing when you lie down. Your feet swell. Sometimes the cough from acute bronchitis lasts for several weeks or months. Usually this happens because the bronchial tree is taking a long time to heal. However, a cough that doesn t go away may be a sign of another problem, like asthma or pneumonia. How can I keep from getting acute bronchitis again? One of the best ways to keep from getting acute bronchitis is to wash your hands often to get rid of any viruses. If you smoke, the best defense against acute bronchitis is to quit. Smoking damages your bronchial tree and makes it easier for viruses to cause infection. Smoking also slows down the healing, so it takes longer for you to get well. Reviewed/Updated: 06/10 Created: 10/03 This handout provides a general overview on this topic and may not apply to everyone. To find out if this handout applies to you and to get more information on this subject, talk to your family doctor. Copyright [id number] [employer] Permission is granted to print and photocopy this material for nonprofit educational uses. Written permission is required for all other uses, including electronic uses. Doxycycline as directed per prescription. Please review information provided by pharmacy on possible side effects and interactions. Doxycycline may interfere with your control and may cause effects on a developing fetus, so it is important to use another form of control protection in addition to the pill. Do not take this medication with calcium or magnesium products such as antacids or supplements. They will bind the antibiotic and make it less effective. If you should breakout in a rash, stop the medicine and call the office. Any antibiotic has the potential to cause diarrhea due to alteration in the normal bacterial elier of the gut. This can be reduced by eating yogurt with active cultures daily while on the medication. If diarrhea becomes severe (watery, large volumes or more than 3-4/day) call the office. If you do not like yogurt, ask the pharmacist for a probiotic supplement such as lactobacillus or acidophillus. Women may experience yeast vaginitis due to alteration in the vaginal elier. Symptoms include vaginal itching, irritation, and often a clumpy white discharge. If this occurs, there are several effective over the counter remedies available, including one-dose treatments. If these are unsuccessful, call the office. Antibiotics may interfer with control. If you are on oral contraceptives, use another form of protection (condoms, foams, jellies, diaphragm) throught the end of whatever pill pack you are on in 10 days. Prometh VC syrup as directed per prescription as needed for cough. This medication may make you drowsy so please use caution. Do not take this medication with other OTC cold or cough preparations. It contains a decongestant as well as a cough suppressant. The decongestant may cause slight anxiety, palpitations or sleeplessness because of its stimulant effects. documented in this encounter [facility] 03-28-2022 History of Present illness Narrative 81 year old female with c/o started with unrevealing. Sx 03/23/2022 Initial symptoms runny nose followed by chills, body aches, fever 100 2.3F on Monday which was T-max. No fever since then. Patient acknowledges yellow gunk , rattles with coughing, scratchy throat, feeling of malaise. Patient also had diarrhea x2 with large watery stool, brown in color, no blood or mucus. Patient took Imodium AD [id number] twice which seemed to slow it down. Today she has had approximately 3 smaller watery diarrhea stools. No vomiting. Presents home COVID testing x2 which were negative. Also identifies that she took DayQuil and Coricidin which did not seem to help. Last night she got concerned because she did not have the strength to stand called racheal, 03/27/2022 presented to [facility] with, chills, body aches since yesterday as above. Signs 99.6 [id number]/67-98% RA. Exam essentially normal, negative for rales, rhonchi or wheezes. No lab or x-ray was done probably because patient felt here 1 x-ray of the left liver necessary. She was sent home without medication. HISTORIES FAMILY HISTORY Problem Relation Age of Onset Heart Mother Heart Father Pneumonia Sister No Known Problems Sister Heart Brother Cancer Maternal Grandfather Cancer Paternal Grandfather Colon Cancer No Family History PAST MEDICAL HISTORY Diagnosis Date Acute gastritis without mention of hemorrhage Anemia, unspecified Anxiety state, unspecified Atrial fibrillation (HCC) B12 deficiency Diverticulosis of colon (without mention of hemorrhage) Esophageal reflux Gastritis Generalized osteoarthrosis, unspecified site Gout Hemorrhage of gastrointestinal tract, unspecified Hemorrhoids Iron deficiency anemia, unspecified Migraine without aura has been quiescent since menopause. Other and unspecified hyperlipidemia Type II or unspecified type diabetes mellitus without mention of complication, uncontrolled PAST SURGICAL HISTORY Procedure Laterality Date ARTHRP KNE CONDYLE&PLATU MEDIAL&LAT COMPARTMENTS 07/23/2007 Knee replacement, total right CARPAL TUNNEL 05/2014 left COLONOSCOPY FLX DX W/COLLJ SPEC WHEN PFRMD 04/14/2005 Colonoscopy COLONOSCOPY FLX DX W/COLLJ SPEC WHEN PFRMD 01/21/2016 Colonoscopy COLONOSCOPY GEN ANES 07/31/2020 External/internal hemorrhoids EGD 07/31/2020 Mild Gastritis EGD TRANSORAL BIOPSY SINGLE/MULTIPLE 06/25/2007 LAPAROSCOPIC CHOLECYSTECTOMY 01/08/2018 PAST SURGICAL HISTORY OF 1967 right breast cyst benign PAST SURGICAL HISTORY OF 2010 Rt carpal tunnel PAST SURGICAL HISTORY OF 12/2016 cataract surgery right eye TONSILLECTOMY PRIMARY/SECONDARY <AGE 12 Tonsillectomy Social History Tobacco Use Smoking status: Never Smokeless tobacco: Never Vaping Use Vaping Use: Never used Substance Use Topics Alcohol use: No Drug use: No ACTIVE PROBLEM LIST Esophageal Reflux Paroxysmal Atrial Fibrillation (Hcc) Anxiety State Osteoarthritis Type 2 Diabetes Mellitus With Diabetic Polyneuropathy, Without Long-Term Current Use of Insulin (Hcc) Osteopenia Thoracic Or Lumbosacral Neuritis Or Radiculitis, Unspecified Abnormality of Gait Statin Myopathy Pvd (Peripheral Vascular Disease) (Hcc) Gout With Manifestations B12 Deficiency Pure Hypercholesterolemia 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 2 Diabetes Mellitus With Stage 3b Chronic Kidney Disease, Without Long-Term Current Use of Insulin (Hcc) Hyperparathyroidism Due to Vitamin D Deficiency (Hcc) Secondary Hypertension Due to Renal Disease Hypothyroidism Cardiomyopathy, Nonischemic (Hcc) Dayana (Obstructive Sleep Apnea) Type 2 Diabetes Mellitus With Diabetic Peripheral Angiopathy Without Gangrene, Without Long-Term Current Use of Insulin (Hcc) Anemia Due to Stage 3a Chronic Kidney Disease (Hcc) Iron Deficiency Anemia Anemia Due to Stage 3b Chronic Kidney Disease (Hcc) Anemia Due to Blood Loss Current Outpatient Medications Medication Sig Dispense Refill gabapentin (NEURONTIN) 300 mg capsule Take 1 capsule by mouth three times daily for 180 days. 270 capsule 1 dulaglutide (TRULICITY) 1.5 mg/0.5 mL pen injector Inject 1.5 mg subcutaneously one time a week. Inject once per week. Discard Pen After 6 mL 3 colestipol (COLESTID) 1 gram tablet Take 1 tablet by mouth twice daily with meals. 180 tablet 3 pioglitazone (ACTOS) 30 mg tablet Take 1 tablet by mouth once daily. 90 tablet 1 lansoprazole (PREVACID) 30 mg capsule TAKE 1 CAPSULE EVERY MORNING BEFORE EATING 90 capsule 1 cholecalciferol, Vitamin D3, (VITAMIN D3) 1,250 mcg (50,000 unit) cap capsule Take 1 capsule by mouth one time a week. 12 capsule 3 carvedilol (COREG) 25 mg tablet Take 1 tablet by mouth twice daily. 360 tablet 0 levothyroxine (SYNTHROID) 137 mcg tablet Take 1 tablet by mouth once daily. Take on empty stomach. For thyroid. 30 tablet 5 blood sugar diagnostic (BLOOD GLUCOSE TEST) test strip Test blood sugar(s) onetimes daily. Dx: Other DM Code E11.49 Insulin: Yes 50 Strip 11 glimepiride (AMARYL) 2 mg tablet Take 1 tablet by mouth daily with breakfast. 30 tablet 0 glimepiride (AMARYL) 2 mg tablet Take 1 tablet by mouth daily with breakfast. 90 tablet 3 Syringe with Needle, Disp, (BD LUER-TALON SYRINGE) 3 mL 25 gauge x 1 USE SYRINGE TO INJECT B12 ONCE A MONTH 12 Each 0 amiodarone (PACERONE) 200 mg tablet Take 1 tablet by mouth once daily. 90 tablet 3 allopurinol (ZYLOPRIM) 100 mg tablet Take 2 tablets by mouth once daily. 180 tablet 3 folic acid 1 mg tablet Take 1 tablet by mouth once daily. 90 tablet 3 iron polysaccharide complex (IFEREX 150) 150 mg iron capsule Take 1 capsule by mouth twice daily. 180 capsule 3 cyanocobalamin 1,000 mcg/mL INJECT 1 MILLILITER INTRAMUSCULARLY ONCE A MONTH 1 mL 12 acetaminophen (TYLENOL) 500 mg tablet Take 1,000 mg by mouth every 8 hours as needed. Insulin [place], Disposable, (BD ULTRA-FINE HORTENCIA PEN NEEDLE) 32 gauge x 5/32 ndle Use one needle for each dose. 3x/day. E11.65 E11.49 200 Each 11 clotrimazole (LOTRIMIN, CLOTRIM) 1 % cream Apply 1 application to affected area twice daily. 30 g 1 triamcinolone acetonide (KENALOG) 0.1 % cream apply to affected area twice a day 15 g 1 blood sugar diagnostic (EASYMAX N) test strip Frequency of testin times daily DX E11.49 Insulin YES 150 Each 11 Lancets lancets Test glucose 2x/daily, 250.02, insulin use: yes 100 Each 11 psyllium Husk (FIBER-CAPS) 0.52 g ORAL capsule Take 2 capsules by mouth once daily. 0 multivitamins w-iron(FLINTSTONES PLUS IRON CHEWABLE TAB) Take one(1) tablet daily with meal. 0 Current Facility-Administered Medications Medication Dose Route Frequency Provider Last Rate Last Admin cyanocobalamin 1,000 mcg injection 1,000 mcg INTRAMUSCULAR q 4 WEEKS Stefan Moore MD 1,000 mcg at 03/24/22 1346 SHINGRIX VACCINE(3 of 3) due on 05/09/2020 ADVANCE DIRECTIVE DISCUSSION Never done DEPRESSION ASSESSMENT Never done DILATED RETINAL EXAM due on 08/04/2021 EXAM: BP 130/60 Pulse 84 Temp 36.9 C (98.4 F) (Tympanic) Resp 20 SpO2 97% Pleasant overweight elderly woman who appears fatigued and miserable. Alert and oriented all spheres. Normal affect and cognition. Speech normal. No deficits to learning or comprehension. Skin warm, dry, pink to lips and nailbeds. Normal turgor. Respirations regular, shallow, persistent harsh moist cough throughout visit associated with rattles with breathing. Chest auscultated for moist crackles and expiratory wheezes which cleared with cough which was productive of thick yellow-green sputum. No hemoptysis. No dullness at bases. Cardiac exam regular rate and rhythm with no murmurs or gallops noted. Extrem: no clubbing or cyanosis. Edema: none. Extremities are warm and pink with prompt capillary refill. CXR: obscuring bowel in chest cavity, scattered reticular pattern throughout chest, possible pneumonia lateral view, hazy also in anterior. Await radiologist. ASSESSMENT/PLAN: 1. Febrile illness, acute - ICD9: 780.60, ICD10: R50.9 (primary diagnosis) - XR CHEST 2V FRONTAL/LAT 2. Bronchitis - ICD9: 490, ICD10: J40 Suspicious for bronchopneumonia by presentation. Reviewed medications , side effects, administration - XR CHEST 2V FRONTAL/LAT The following approved medication requests have been transmitted electronically. Requested Prescriptions Signed Prescriptions Disp Refills Amoxicillin 500 mg tablet 14 tablet 0 Sig: Take 1 tablet by mouth twice daily for 7 days. doxycycline (VIBRA-TABS) 100 mg tablet 20 tablet 0 Sig: Take 1 tablet by mouth twice daily for 10 days. predniSONE (DELTASONE) 20 mg tablet 10 tablet 0 Sig: Take 2 tablets by mouth once daily for 5 days. Promethazine-DM (PHENERGAN-DM) 6.25-15 mg/5 mL syrup 120 mL 0 Sig: Take 5 mL by mouth four times daily as needed. Mason King PA-C documented in this encounter [facility] 03-24-2022 History of Present illness Narrative Patient presents for B-12 injection. Denies any problems at this time. Patient instructed on any SE of medication, verbalized understanding and agreed to proceed with treatment. Tolerated injection well. Erica Colorado LPN documented in this encounter [facility] 03-23-2022 History of Present illness Narrative Last saw PCP: February 2022 Subjective: Patient presents to clinic c/o painful toenails. They state that the nails are especially painful with shoe gear and pressure. Patient states that nails b/l hallux are painful. Patient admits to being diabetic and states that their blood sugar was 98mg/dL this AM. No other pedal complaints at this time. Patient states no change in medications or medical history since last visit. Objective: Patient presents to clinic ambulating in diabetic shoes Vasc: DP and PT pulses are palpable bilateral. CFT is less than 5 seconds bilateral. Skin temperature is warm to cool proximal to distal bilateral. There is mild edema or varicosities noted. Neuro: Protective sensation is absent to the foot and toes when tested with the 5.07 SWM bilateral. Vibratory sensation is absent at the hallux IPJ bilateral. The hallux is downgoing bilateral. Derm: Nails 1-5 b/l are painful, discolored-yellow, thick, crumbly, dystrophic and with subungal debris. Skin is of normal turgor, texture and hair growth is present bilateral. There are no hyperkeratosis, ulcerations, scars, verruca or other lesions noted. Ortho: Muscle strength is 5/5 for all pedal groups tested. Ankle joint DF is decreased with the knee extended with no pain or crepitus noted. 1st MPJ ROM is decreased bilateral. Hammertoes are present to b/l feet Assessment: (B35.1) Onychomycosis (primary encounter diagnosis) (M79.674) Pain in toe of right foot (M79.675) Pain in toe of left foot (E11.42) Diabetic polyneuropathy associated with type 2 diabetes mellitus (HCC) (M20.41, M20.42) Hammer toes of both feet Plan: Patient was seen and evaluated. Nails 1-5 bilateral were debrided in length and thickness. Patient was instructed on the continued importance of diabetic foot care along with proper diet and keeping their blood sugar under control to prevent complications. Patient is to RTC in 3-4 months. Dali Sepulveda DPM AMB ROOMING INTAKE FLOWSHEET DATA Risk Screening Do you have concerns about personal safety or safety in the home?: No Patient presents with: Left Foot - Established Patient, Diabetic Foot Care Right Foot - Established Patient, Diabetic Foot Care Patient states since RUSSEL she fell. Was evaluated twice at and PCP's office. States toes in R foot hurt but XR were negative. Also c/o cellulitis to that is healing. Completed doxy. documented in this encounter [facility] 03-23-2022 Instructions Dali Sepulveda - 03/23/2022 8:23 AM EDT Diabetes Foot Care Instructions When you have diabetes, proper foot care is very important. Poor foot care may lead to amputation of a foot or leg. As a person with diabetes, you are more vulnerable to foot problems, because diabetes can damage your nerves and reduce blood flow to your feet. Here are some diabetes foot care tips to follow: Wash and Dry Your Feet Daily Use mild soaps Use warm water Pat your skin dry; do not rub. Thoroughly dry your feet. After washing, use lotion on your feet to prevent cracking. Do not put lotion between your toes. Examine Your Feet Each Day Check the tops and bottoms of your feet. Have someone else look at your feet if you cannot see them. Check for dry, cracked skin. Look for blisters, cuts, scratches, or other sores. Check for redness, increased warmth, or tenderness when touching any area of your feet. Check for ingrown toenails, corns, and calluses. If you get a blister or sore from your shoes, do not pop it. Apply a bandage and wear a different pair of shoes. Take Care of Your Toenails Cut toenails after bathing, when they are soft. Cut toenails straight across and smooth with a nail file. Avoid cutting into the corners of toes. Do not cut cuticles. If you have neuropathy (or decreased sensation in your feet) a machine sign writer should always cut your toenails. Be Careful When Exercising Walk and exercise in comfortable shoes. Do not exercise when you have open sores on your feet. Protect Your Feet With Shoes and Socks Never go barefoot. Always protect your feet by wearing shoes or hard-soled slippers or footwear. Avoid shoes with high heels and pointed toes. Avoid shoes that expose your toes or heels (such as open-toed shoes or sandals). These types of shoes increase your risk for injury and potential infections. Try on new footwear with the type of socks you usually wear. Do not wear new shoes for more than an hour at a time. Change your socks daily. Look and feel inside your shoes before putting them on to make sure there are no foreign objects or rough areas. Avoid tight socks. Wear natural-fiber socks (cotton, wool, or a cotton-wool blend). Wear special shoes if your health care provider recommends them. Wear shoes/boots that will protect your feet from various weather conditions (cold, moisture, etc.). Make sure your shoes fit properly. If you have neuropathy (nerve damage), you may not notice that your shoes are too tight. Perform the footwear test described below. Footwear Test Use this simple test to see if your shoes fit correctly: Stand on a piece of paper. (Make sure you are standing and not sitting, because your foot changes shape when you stand.) Trace the outline of your foot. Trace the outline of your shoe. Compare the tracings: Is the shoe too narrow? Is your foot crammed into the shoe? The shoe should be at least 1/2 inch longer than your longest toe and as wide as your foot. Proper Shoe Choices The following types of shoes are best for people with diabetes Closed toes and heels Leather uppers without a seam inside At least 1/2 inch extra space at the end of your longest toe Inside of shoe should be soft with no rough areas Outer sole should be made of stiff material Shoes should be at least as wide as your feet Tips for Foot Care in Diabetes Don't wait to treat a minor foot problem if you have diabetes. Follow your health care provider's guidelines and first aid guidelines. Report foot injuries and infections to your health care provider immediately. Check water temperature with your elbow, not your foot. Do not use a heating pad on your feet. Do not cross your legs. Do not self-treat your corns, calluses, or other foot problems. Go to your health care provider or machine sign writer to treat these conditions. documented in this encounter [facility] 03-22-2022 Miscellaneous Notes Patient MyChart message requesting the following refill. Requested Prescriptions Pending Prescriptions Disp Refills gabapentin (NEURONTIN) 300 mg capsule 270 capsule 1 Sig: Take 1 capsule by mouth three times daily for 180 days. Patient last appointment: 02/14/2022 Patient Phone numbers: [phone] (home) Request is for script(s) to be escript to mail order [facility]. Chelle Watts documented in this encounter [facility] 03-07-2022 Miscellaneous Notes Brody Bermudez-a nurse with [facility] calling to state patient has been referred to them by Dr. Cortez in Cardiology. Brody asking for patient's recent OV note be faxed to [phone]. Contacted patient to verify consent, and verbal consent given. Information faxed as requested. Patricia Salazar RN documented in this encounter [facility] 03-03-2022 Miscellaneous Notes Patient has been identified by name and date of : Yes Pharmacy phones for refill(s): Requested Prescriptions Pending Prescriptions Disp Refills dulaglutide (TRULICITY) 1.5 mg/0.5 mL pen injector 6 mL 3 Sig: Inject 1.5 mg subcutaneously one time a week. Inject once per week. Discard Pen After colestipol (COLESTID) 1 gram tablet 180 tablet 3 Sig: Take 1 tablet by mouth twice daily with meals. Date of last office visit in primary care: 02/14/2022, has appt 05/24/2022 Last 2 Encounter Wt Readings: Date: Wt: 02/14/2022 98 kg (216 lb) 01/31/2022 102.1 kg (225 lb) Previous labs/tests for medication: Diabetes: Hemoglobin A1C (%) Date Value 07/29/2021 6.0 01/22/2021 6.0 Cholesterol: HDL Cholesterol (mg/dL) Date Value 12/01/2020 35 LDL Cholesterol (mg/dL) Date Value 12/01/2020 91 ALT (U/L) Date Value 02/10/2022 8 12/01/2020 7 Non HDL Cholesterol (mg/dL) Date Value 12/01/2020 113 Please advise. Thank you. Lupe Vyas LPN documented in this encounter [facility] 03-01-2022 Miscellaneous Notes Lab appointment changed as directed below. Chrissy Horowitz Can you change lab appt. From 04/04/22 to 03/11/22 so orders will be in system when pt. Comes in on . Pt. Is aware. Nadiya Patterson LPN documented in this encounter [facility] 02-14-2022 History of Present illness Narrative Patient presents with: 2 week follow up - recheck legs HPI: Patient presents today for office visit for follow up. Treating for cellulitis on the right. Added doxycycline. Her redness is better. No fever or chills. Weight is down which is good. Attending TOPS as well No chest pain or shortness of breath. Still has some swelling. Gfr is still sitting around 31. See previous ov: Saw Pain management and begun on tramadol. Will be getting a caudal injection in her back. HTN: Patient is compliant with meds Yes Monitors bp at home: Yes. Denies side effects: Yes. Chest pain: No. Dyspnea: No. Edema: Yes. Palpitations: No. Syncope: No. Headache: No. Dizziness: No. DM: Reports overall feeling well. Medication side effects: No. Home sugar check frequency/results:yes once daily every morning Hypoglycemic spells: this morning was 73 but no symptoms. Watching diet: Yes. Unexpected weight loss: No. Polyuria, polydipsia: No. Vision Changes: No. Foot lesions or numbness or pain: right foot pain on and off by toes. Did have a venous duplex and xray of her chest since here. No current cough or congestion. Her right leg is still slightly swollen and red. No fever or chills. She is no longer seeing nephrology. She is slightly increasing her intake. Advised her if her gfr drops lower, will need to rethin meds like zyloprim and to see nephro again. MEDICATIONS: Current Outpatient Medications Medication Sig gabapentin (NEURONTIN) 300 mg capsule Take 1 capsule by mouth three times daily for 90 days. pioglitazone (ACTOS) 30 mg tablet Take 1 tablet by mouth once daily. lansoprazole (PREVACID) 30 mg capsule TAKE 1 CAPSULE EVERY MORNING BEFORE EATING cholecalciferol, Vitamin D3, (VITAMIN D3) 1,250 mcg (50,000 unit) cap capsule Take 1 capsule by mouth one time a week. carvedilol (COREG) 25 mg tablet Take 1 tablet by mouth twice daily. levothyroxine (SYNTHROID) 137 mcg tablet Take 1 tablet by mouth once daily. Take on empty stomach. For thyroid. blood sugar diagnostic (BLOOD GLUCOSE TEST) test strip Test blood sugar(s) onetimes daily. Dx: Other DM Code E11.49 Insulin: Yes glimepiride (AMARYL) 2 mg tablet Take 1 tablet by mouth daily with breakfast. glimepiride (AMARYL) 2 mg tablet Take 1 tablet by mouth daily with breakfast. Syringe with Needle, Disp, (BD LUER-TALON SYRINGE) 3 mL 25 gauge x 1 USE SYRINGE TO INJECT B12 ONCE A MONTH amiodarone (PACERONE) 200 mg tablet Take 1 tablet by mouth once daily. allopurinol (ZYLOPRIM) 100 mg tablet Take 2 tablets by mouth once daily. dulaglutide (TRULICITY) 1.5 mg/0.5 mL pen injector Inject 1.5 mg subcutaneously one time a week. Inject once per week. Discard Pen After folic acid 1 mg tablet Take 1 tablet by mouth once daily. iron polysaccharide complex (IFEREX 150) 150 mg iron capsule Take 1 capsule by mouth twice daily. colestipol (COLESTID) 1 gram tablet Take 1 tablet by mouth twice daily with meals. cyanocobalamin 1,000 mcg/mL INJECT 1 MILLILITER INTRAMUSCULARLY ONCE A MONTH acetaminophen (TYLENOL) 500 mg tablet Take 1,000 mg by mouth every 8 hours as needed. Insulin [place], Disposable, (BD ULTRA-FINE HORTENCIA PEN NEEDLE) 32 gauge x ndle Use one needle for each dose. 3x/day. E11.65 E11.49 clotrimazole (LOTRIMIN, CLOTRIM) 1 % cream Apply 1 application to affected area twice daily. triamcinolone acetonide (KENALOG) 0.1 % cream apply to affected area twice a day blood sugar diagnostic (EASYMAX N) test strip Frequency of testin times daily DX E11.49 Insulin YES Lancets lancets Test glucose 2x/daily, 250.02, insulin use: yes psyllium Husk (FIBER-CAPS) 0.52 g ORAL capsule Take 2 capsules by mouth once daily. multivitamins w-iron(FLINTSTONES PLUS IRON CHEWABLE TAB) Take one(1) tablet daily with meal. Current Facility-Administered Medications Medication Dose Route Frequency cyanocobalamin 1,000 mcg injection 1,000 mcg INTRAMUSCULAR q 4 WEEKS ALLERGIES: ALLERGIES Allergen Reactions Iodine Rash, Unknown, Hives Metformin Other: See Comments Elevated renal function Simvastatin Contraindication-Medical Surgical statin myopathy Hprjcea-Pwn-Fgi Red* Other: See Comments myopathy Vytorin 10-10 [Ezet* Contraindication-Medical Surgical myopathy PAST MEDICAL HISTORY Diagnosis Date Acute gastritis without mention of hemorrhage Anemia, unspecified Anxiety state, unspecified Atrial fibrillation (HCC) B12 deficiency Diverticulosis of colon (without mention of hemorrhage) Esophageal reflux Gastritis Generalized osteoarthrosis, unspecified site Gout Hemorrhage of gastrointestinal tract, unspecified Hemorrhoids Iron deficiency anemia, unspecified Migraine without aura has been quiescent since menopause. Other and unspecified hyperlipidemia Type II or unspecified type diabetes mellitus without mention of complication, uncontrolled PAST SURGICAL HISTORY Procedure Laterality Date ARTHRP KNE CONDYLE&PLATU MEDIAL&LAT COMPARTMENTS 07/23/2007 Knee replacement, total right CARPAL TUNNEL 05/2014 left COLONOSCOPY FLX DX W/COLLJ SPEC WHEN PFRMD 04/14/2005 Colonoscopy COLONOSCOPY FLX DX W/COLLJ SPEC WHEN PFRMD 01/21/2016 Colonoscopy COLONOSCOPY GEN ANES 07/31/2020 External/internal hemorrhoids EGD 07/31/2020 Mild Gastritis EGD TRANSORAL BIOPSY SINGLE/MULTIPLE 06/25/2007 LAPAROSCOPIC CHOLECYSTECTOMY 01/08/2018 PAST SURGICAL HISTORY OF 1967 right breast cyst benign PAST SURGICAL HISTORY OF 2010 Rt carpal tunnel PAST SURGICAL HISTORY OF 12/2016 cataract surgery right eye TONSILLECTOMY PRIMARY/SECONDARY <AGE 12 Tonsillectomy FAMILY HISTORY Problem Relation Age of Onset Heart Mother Heart Father Pneumonia Sister No Known Problems Sister Heart Brother Cancer Maternal Grandfather Cancer Paternal Grandfather Colon Cancer No Family History Social History Tobacco Use Smoking status: Never Smokeless tobacco: Never Vaping Use Vaping Use: Never used Substance Use Topics Alcohol use: No Drug use: No Reviewed current medications, allergies, past medical history, surgical history, family history and social history today. REVIEW OF SYSTEMS All other reviewed and negative other than HPI. HEALTH MAINTENANCE: Reviewed health maintenance issues today and recommended the following in detail. SHINGRIX VACCINE(3 of 3) due on 05/09/2020 ADVANCE DIRECTIVE DISCUSSION Never done DILATED RETINAL EXAM due on 08/04/2021 COVID-19 VACCINE(4 - Booster for Moderna series) due on 09/09/2021 LDL CHOLESTEROL due on 12/01/2021 HBA1C due on 01/26/2022 INFLUENZA(1) due on 02/03/2022 VITALS: BP 132/66 Pulse 83 Resp 16 Wt 98 kg (216 lb) SpO2 98% BMI 32.84 kg/m Last 4 Encounter Wt Readings: Date: Wt: 02/14/2022 98 kg (216 lb) 01/31/2022 102.1 kg (225 lb) 01/14/2022 101.4 kg (223 lb 9.6 oz) 12/21/2021 98 kg (216 lb) PHYSICAL EXAMINATION: General appearance: Well appearing, alert, in no acute distress, well-hydrated, well nourished. Skin: skin looks better. Some mild chronic discoloration. Head: Normocephalic, no masses, lesions, tenderness or abnormalities Lungs: Lungs clear to auscultation. No wheezing, rhonchi, rales Heart: RRR without murmur, gallop, or rubs. No ectopy Abdomen: Normal abdominal exam, Abdomen soft, non-tender. Bowel sounds normal. No masses, organomegaly Extremities: trace to 1+ edema. No calf tenderness. Musculoskeletal: No joint swelling, deformity, or tenderness ASSESSMENT/PLAN: 1. Type 2 diabetes mellitus with stage 3b chronic kidney disease, without long-term current use of insulin (HCC) - ICD9: 250.40, 585.3, ICD10: E11.22, N18.32 (primary diagnosis) - check labs next month. May have had some hypglycemia recently. Will follow. 2. Cellulitis of left lower extremity - ICD9: 682.6, ICD10: L03.116 Resolved Red flags for re-assessment reviewed with patient in detail. - check weight daily and call if greater than 3 lb weight gain. Stefan Moore MD documented in this encounter [facility] documented as of this encounter (statuses as of 02/14/2022) [facility] History of Past illness Narrative* Problem Noted Date Resolved Date Cellulitis of left lower extremity 02/14/2022 02/14/2022 Obesity, Class I, BMI 30-34.9 11/10/2017 Type 2 DM with CKD stage 4 and hypertension 12/0403/20/2017 Metabolic acidosis 12/26/2016 03/20/2017 Secondary hyperparathyroidism of renal origin 03/20/2017 Screening for genitourinary condition 12/26/2016 03/20/2017 Anemia of renal disease 12/26/2016 03/20/20 17 Chronic anticoagulation 09/29/2016 08/02/19 22 Colon cancer screening 01/21/2016 6 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 02/18/2015 09/08/2016 CKD (chronic kidney disease) stage 3, GFR 30-59 ml/min 12/16/2013 03/29/2021 Other symptoms involving ner vous and musculoskeletal systems(781.99) 07/16/2013 09/08/2016 Statin myopathy 01/22/2011 12/16/2013 Other physical therapy 07/16/2010 7 Hypertension 06/03/2010 03/20/2017 Cellulitis and abscess of toe, unspecified 05/2309/08/2016 Other benign neoplasm of con nective and other soft tissue of unspecified site 01/21/2008 09/08/2016 Obesity, unspecified 05/14/2007 11/10/2017 Dermatophytosis of nail 01/11/2007 02/15/20 22 Pain in limb 01/11/2007 09/08/2016 Onychia and paronychia of toe 01/10/2007 Pain in joint, lower leg 09/19/2006 017 Iron deficiency anemia, unspecified 06/12/2006 09/08/2016 Need for prophylactic hormon e replacement therapy (postmenopausal) 12/30/2005 09/08/2016 Mixed hyperlipidemia 12/30/2005 03/20/2017 Type II or unspecified type diabetes mellitus without mention of complication, not stated as uncontrolled 12/30/2005 Migraine without aura 09/08/2016 documented as of this encounter (statuses as of 03/01/2022) [facility] History of Past illness Narrative* Problem Noted Date Resolved Date Cellulitis of left lower extremity 02/14/2022 02/14/2022 Obesity, Class I, BMI 30-34.9 11/10/2017 Type 2 DM with CKD stage 4 and hypertension 12/0403/20/2017 Metabolic acidosis 12/26/2016 03/20/2017 Secondary hyperparathyroidism of renal origin 03/20/2017 Screening for genitourinary condition 12/26/2016 03/20/2017 Anemia of renal disease 12/26/2016 03/20/20 17 Chronic anticoagulation 09/29/2016 08/02/19 22 Colon cancer screening 01/21/2016 6 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 02/18/2015 09/08/2016 CKD (chronic kidney disease) stage 3, GFR 30-59 ml/min 12/16/2013 03/29/2021 Other symptoms involving ner vous and musculoskeletal systems(781.99) 07/16/2013 09/08/2016 Statin myopathy 01/22/2011 12/16/2013 Other physical therapy 07/16/2010 7 Hypertension 06/03/2010 03/20/2017 Cellulitis and abscess of toe, unspecified 05/2309/08/2016 Other benign neoplasm of con nective and other soft tissue of unspecified site 01/21/2008 09/08/2016 Obesity, unspecified 05/14/2007 11/10/2017 Dermatophytosis of nail 01/11/2007 02/15/20 22 Pain in limb 01/11/2007 09/08/2016 Onychia and paronychia of toe 01/10/2007 Pain in joint, lower leg 09/19/2006 017 Iron deficiency anemia, unspecified 06/12/2006 09/08/2016 Need for prophylactic hormon e replacement therapy (postmenopausal) 12/30/2005 09/08/2016 Mixed hyperlipidemia 12/30/2005 03/20/2017 Type II or unspecified type diabetes mellitus without mention of complication, not stated as uncontrolled 12/30/2005 Migraine without aura 09/08/2016 documented as of this encounter (statuses as of 03/03/2022) [facility] History of Past illness Narrative* Problem Noted Date Resolved Date Cellulitis of left lower extremity 02/14/2022 02/14/2022 Obesity, Class I, BMI 30-34.9 11/10/2017 Type 2 DM with CKD stage 4 and hypertension 12/0403/20/2017 Metabolic acidosis 12/26/2016 03/20/2017 Secondary hyperparathyroidism of renal origin 03/20/2017 Screening for genitourinary condition 12/26/2016 03/20/2017 Anemia of renal disease 12/26/2016 03/20/20 17 Chronic anticoagulation 09/29/2016 08/02/19 22 Colon cancer screening 01/21/2016 6 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 02/18/2015 09/08/2016 CKD (chronic kidney disease) stage 3, GFR 30-59 ml/min 12/16/2013 03/29/2021 Other symptoms involving ner vous and musculoskeletal systems(781.99) 07/16/2013 09/08/2016 Statin myopathy 01/22/2011 12/16/2013 Other physical therapy 07/16/2010 7 Hypertension 06/03/2010 03/20/2017 Cellulitis and abscess of toe, unspecified 05/2309/08/2016 Other benign neoplasm of con nective and other soft tissue of unspecified site 01/21/2008 09/08/2016 Obesity, unspecified 05/14/2007 11/10/2017 Dermatophytosis of nail 01/11/2007 02/15/20 22 Pain in limb 01/11/2007 09/08/2016 Onychia and paronychia of toe 01/10/2007 Pain in joint, lower leg 09/19/2006 017 Iron deficiency anemia, unspecified 06/12/2006 09/08/2016 Need for prophylactic hormon e replacement therapy (postmenopausal) 12/30/2005 09/08/2016 Mixed hyperlipidemia 12/30/2005 03/20/2017 Type II or unspecified type diabetes mellitus without mention of complication, not stated as uncontrolled 12/30/2005 Migraine without aura 09/08/2016 documented as of this encounter (statuses as of 03/03/2022) [facility] History of Past illness Narrative* Problem Noted Date Resolved Date Cellulitis of left lower extremity 02/14/2022 02/14/2022 Obesity, Class I, BMI 30-34.9 11/10/2017 Type 2 DM with CKD stage 4 and hypertension 12/0403/20/2017 Metabolic acidosis 12/26/2016 03/20/2017 Secondary hyperparathyroidism of renal origin 03/20/2017 Screening for genitourinary condition 12/26/2016 03/20/2017 Anemia of renal disease 12/26/2016 03/20/20 17 Chronic anticoagulation 09/29/2016 08/02/19 22 Colon cancer screening 01/21/2016 6 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 02/18/2015 09/08/2016 CKD (chronic kidney disease) stage 3, GFR 30-59 ml/min 12/16/2013 03/29/2021 Other symptoms involving ner vous and musculoskeletal systems(781.99) 07/16/2013 09/08/2016 Statin myopathy 01/22/2011 12/16/2013 Other physical therapy 07/16/2010 7 Hypertension 06/03/2010 03/20/2017 Cellulitis and abscess of toe, unspecified 05/2309/08/2016 Other benign neoplasm of con nective and other soft tissue of unspecified site 01/21/2008 09/08/2016 Obesity, unspecified 05/14/2007 11/10/2017 Dermatophytosis of nail 01/11/2007 02/15/20 22 Pain in limb 01/11/2007 09/08/2016 Onychia and paronychia of toe 01/10/2007 Pain in joint, lower leg 09/19/2006 017 Iron deficiency anemia, unspecified 06/12/2006 09/08/2016 Need for prophylactic hormon e replacement therapy (postmenopausal) 12/30/2005 09/08/2016 Mixed hyperlipidemia 12/30/2005 03/20/2017 Type II or unspecified type diabetes mellitus without mention of complication, not stated as uncontrolled 12/30/2005 Migraine without aura 09/08/2016 documented as of this encounter (statuses as of 03/07/2022) [facility] History of Past illness Narrative* Problem Noted Date Resolved Date Cellulitis of left lower extremity 02/14/2022 02/14/2022 Obesity, Class I, BMI 30-34.9 11/10/2017 Type 2 DM with CKD stage 4 and hypertension 12/0403/20/2017 Metabolic acidosis 12/26/2016 03/20/2017 Secondary hyperparathyroidism of renal origin 03/20/2017 Screening for genitourinary condition 12/26/2016 03/20/2017 Anemia of renal disease 12/26/2016 03/20/20 17 Chronic anticoagulation 09/29/2016 08/02/19 22 Colon cancer screening 01/21/2016 6 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 02/18/2015 09/08/2016 CKD (chronic kidney disease) stage 3, GFR 30-59 ml/min 12/16/2013 03/29/2021 Other symptoms involving ner vous and musculoskeletal systems(781.99) 07/16/2013 09/08/2016 Statin myopathy 01/22/2011 12/16/2013 Other physical therapy 07/16/2010 7 Hypertension 06/03/2010 03/20/2017 Cellulitis and abscess of toe, unspecified 05/2309/08/2016 Other benign neoplasm of con nective and other soft tissue of unspecified site 01/21/2008 09/08/2016 Obesity, unspecified 05/14/2007 11/10/2017 Dermatophytosis of nail 01/11/2007 02/15/20 22 Pain in limb 01/11/2007 09/08/2016 Onychia and paronychia of toe 01/10/2007 Pain in joint, lower leg 09/19/2006 017 Iron deficiency anemia, unspecified 06/12/2006 09/08/2016 Need for prophylactic hormon e replacement therapy (postmenopausal) 12/30/2005 09/08/2016 Mixed hyperlipidemia 12/30/2005 03/20/2017 Type II or unspecified type diabetes mellitus without mention of complication, not stated as uncontrolled 12/30/2005 Migraine without aura 09/08/2016 documented as of this encounter (statuses as of 03/22/2022) [facility] History of Past illness Narrative* Problem Noted Date Resolved Date Cellulitis of left lower extremity 02/14/2022 02/14/2022 Obesity, Class I, BMI 30-34.9 11/10/2017 Type 2 DM with CKD stage 4 and hypertension 12/0403/20/2017 Metabolic acidosis 12/26/2016 03/20/2017 Secondary hyperparathyroidism of renal origin 03/20/2017 Screening for genitourinary condition 12/26/2016 03/20/2017 Anemia of renal disease 12/26/2016 03/20/20 17 Chronic anticoagulation 09/29/2016 08/02/19 22 Colon cancer screening 01/21/2016 6 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 02/18/2015 09/08/2016 CKD (chronic kidney disease) stage 3, GFR 30-59 ml/min 12/16/2013 03/29/2021 Other symptoms involving ner vous and musculoskeletal systems(781.99) 07/16/2013 09/08/2016 Statin myopathy 01/22/2011 12/16/2013 Other physical therapy 07/16/2010 7 Hypertension 06/03/2010 03/20/2017 Cellulitis and abscess of toe, unspecified 05/2309/08/2016 Other benign neoplasm of con nective and other soft tissue of unspecified site 01/21/2008 09/08/2016 Obesity, unspecified 05/14/2007 11/10/2017 Dermatophytosis of nail 01/11/2007 02/15/20 22 Pain in limb 01/11/2007 09/08/2016 Onychia and paronychia of toe 01/10/2007 Pain in joint, lower leg 09/19/2006 017 Iron deficiency anemia, unspecified 06/12/2006 09/08/2016 Need for prophylactic hormon e replacement therapy (postmenopausal) 12/30/2005 09/08/2016 Mixed hyperlipidemia 12/30/2005 03/20/2017 Type II or unspecified type diabetes mellitus without mention of complication, not stated as uncontrolled 12/30/2005 Migraine without aura 09/08/2016 documented as of this encounter (statuses as of 03/24/2022) [facility] History of Past illness Narrative* Problem Noted Date Resolved Date Cellulitis of left lower extremity 02/14/2022 02/14/2022 Obesity, Class I, BMI 30-34.9 11/10/2017 Type 2 DM with CKD stage 4 and hypertension 12/0403/20/2017 Metabolic acidosis 12/26/2016 03/20/2017 Secondary hyperparathyroidism of renal origin 03/20/2017 Screening for genitourinary condition 12/26/2016 03/20/2017 Anemia of renal disease 12/26/2016 03/20/20 17 Chronic anticoagulation 09/29/2016 08/02/19 22 Colon cancer screening 01/21/2016 6 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 02/18/2015 09/08/2016 CKD (chronic kidney disease) stage 3, GFR 30-59 ml/min 12/16/2013 03/29/2021 Other symptoms involving ner vous and musculoskeletal systems(781.99) 07/16/2013 09/08/2016 Statin myopathy 01/22/2011 12/16/2013 Other physical therapy 07/16/2010 7 Hypertension 06/03/2010 03/20/2017 Cellulitis and abscess of toe, unspecified 05/2309/08/2016 Other benign neoplasm of con nective and other soft tissue of unspecified site 01/21/2008 09/08/2016 Obesity, unspecified 05/14/2007 11/10/2017 Dermatophytosis of nail 01/11/2007 02/15/20 22 Pain in limb 01/11/2007 09/08/2016 Onychia and paronychia of toe 01/10/2007 Pain in joint, lower leg 09/19/2006 017 Iron deficiency anemia, unspecified 06/12/2006 09/08/2016 Need for prophylactic hormon e replacement therapy (postmenopausal) 12/30/2005 09/08/2016 Mixed hyperlipidemia 12/30/2005 03/20/2017 Type II or unspecified type diabetes mellitus without mention of complication, not stated as uncontrolled 12/30/2005 Migraine without aura 09/08/2016 documented as of this encounter (statuses as of 03/25/2022) [facility] of Past illness Narrative* Problem Noted Date Resolved Date Cellulitis of left lower extremity 02/14/2022 02/14/2022 Obesity, Class I, BMI 30-34.9 11/10/2017 Type 2 DM with CKD stage 4 and hypertension 12/0403/20/2017 Metabolic acidosis 12/26/2016 03/20/2017 Secondary hyperparathyroidism of renal origin 03/20/2017 Screening for genitourinary condition 12/26/2016 03/20/2017 Anemia of renal disease 12/26/2016 03/20/20 17 Chronic anticoagulation 09/29/2016 08/02/19 22 Colon cancer screening 01/21/2016 6 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 02/18/2015 09/08/2016 CKD (chronic kidney disease) stage 3, GFR 30-59 ml/min 12/16/2013 03/29/2021 Other symptoms involving ner vous and musculoskeletal systems(781.99) 07/16/2013 09/08/2016 Statin myopathy 01/22/2011 12/16/2013 Other physical therapy 07/16/2010 7 Hypertension 06/03/2010 03/20/2017 Cellulitis and abscess of toe, unspecified 05/2309/08/2016 Other benign neoplasm of con nective and other soft tissue of unspecified site 01/21/2008 09/08/2016 Obesity, unspecified 05/14/2007 11/10/2017 Dermatophytosis of nail 01/11/2007 02/15/20 22 Pain in limb 01/11/2007 09/08/2016 Onychia and paronychia of toe 01/10/2007 Pain in joint, lower leg 09/19/2006 017 Iron deficiency anemia, unspecified 06/12/2006 09/08/2016 Need for prophylactic hormon e replacement therapy (postmenopausal) 12/30/2005 09/08/2016 Mixed hyperlipidemia 12/30/2005 03/20/2017 Type II or unspecified type diabetes mellitus without mention of complication, not stated as uncontrolled 12/30/2005 Migraine without aura 09/08/2016 documented as of this encounter (statuses as of 03/28/2022) [facility] of Past illness Narrative* Problem Noted Date Resolved Date Cellulitis of left lower extremity 02/14/2022 02/14/2022 Obesity, Class I, BMI 30-34.9 11/10/2017 Type 2 DM with CKD stage 4 and hypertension 12/0403/20/2017 Metabolic acidosis 12/26/2016 03/20/2017 Secondary hyperparathyroidism of renal origin 03/20/2017 Screening for genitourinary condition 12/26/2016 03/20/2017 Anemia of renal disease 12/26/2016 03/20/20 17 Chronic anticoagulation 09/29/2016 08/02/19 22 Colon cancer screening 01/21/2016 6 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 02/18/2015 09/08/2016 CKD (chronic kidney disease) stage 3, GFR 30-59 ml/min 12/16/2013 03/29/2021 Other symptoms involving ner vous and musculoskeletal systems(781.99) 07/16/2013 09/08/2016 Statin myopathy 01/22/2011 12/16/2013 Other physical therapy 07/16/2010 7 Hypertension 06/03/2010 03/20/2017 Cellulitis and abscess of toe, unspecified 05/2309/08/2016 Other benign neoplasm of con nective and other soft tissue of unspecified site 01/21/2008 09/08/2016 Obesity, unspecified 05/14/2007 11/10/2017 Dermatophytosis of nail 01/11/2007 02/15/20 22 Pain in limb 01/11/2007 09/08/2016 Onychia and paronychia of toe 01/10/2007 Pain in joint, lower leg 09/19/2006 017 Iron deficiency anemia, unspecified 06/12/2006 09/08/2016 Need for prophylactic hormon e replacement therapy (postmenopausal) 12/30/2005 09/08/2016 Mixed hyperlipidemia 12/30/2005 03/20/2017 Type II or unspecified type diabetes mellitus without mention of complication, not stated as uncontrolled 12/30/2005 Migraine without aura 09/08/2016 documented as of this encounter (statuses as of 03/29/2022) [facility] of Past illness Narrative* Problem Noted Date Resolved Date Cellulitis of left lower extremity 02/14/2022 02/14/2022 Obesity, Class I, BMI 30-34.9 11/10/2017 Type 2 DM with CKD stage 4 and hypertension 12/0403/20/2017 Metabolic acidosis 12/26/2016 03/20/2017 Secondary hyperparathyroidism of renal origin 03/20/2017 Screening for genitourinary condition 12/26/2016 03/20/2017 Anemia of renal disease 12/26/2016 03/20/20 17 Chronic anticoagulation 09/29/2016 08/02/19 22 Colon cancer screening 01/21/2016 6 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 02/18/2015 09/08/2016 CKD (chronic kidney disease) stage 3, GFR 30-59 ml/min 12/16/2013 03/29/2021 Other symptoms involving ner vous and musculoskeletal systems(781.99) 07/16/2013 09/08/2016 Statin myopathy 01/22/2011 12/16/2013 Other physical therapy 07/16/2010 7 Hypertension 06/03/2010 03/20/2017 Cellulitis and abscess of toe, unspecified 05/2309/08/2016 Other benign neoplasm of con nective and other soft tissue of unspecified site 01/21/2008 09/08/2016 Obesity, unspecified 05/14/2007 11/10/2017 Dermatophytosis of nail 01/11/2007 02/15/20 22 Pain in limb 01/11/2007 09/08/2016 Onychia and paronychia of toe 01/10/2007 Pain in joint, lower leg 09/19/2006 017 Iron deficiency anemia, unspecified 06/12/2006 09/08/2016 Need for prophylactic hormon e replacement therapy (postmenopausal) 12/30/2005 09/08/2016 Mixed hyperlipidemia 12/30/2005 03/20/2017 Type II or unspecified type diabetes mellitus without mention of complication, not stated as uncontrolled 12/30/2005 Migraine without aura 09/08/2016 documented as of this encounter (statuses as of 03/29/2022) [facility] Past illness Narrative* Problem Noted Date Resolved Date Cellulitis of left lower extremity 02/14/2022 02/14/2022 Obesity, Class I, BMI 30-34.9 11/10/2017 Type 2 DM with CKD stage 4 and hypertension 12/0403/20/2017 Metabolic acidosis 12/26/2016 03/20/2017 Secondary hyperparathyroidism of renal origin 03/20/2017 Screening for genitourinary condition 12/26/2016 03/20/2017 Anemia of renal disease 12/26/2016 03/20/20 17 Chronic anticoagulation 09/29/2016 08/02/19 22 Colon cancer screening 01/21/2016 6 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 02/18/2015 09/08/2016 CKD (chronic kidney disease) stage 3, GFR 30-59 ml/min 12/16/2013 03/29/2021 Other symptoms involving ner vous and musculoskeletal systems(781.99) 07/16/2013 09/08/2016 Statin myopathy 01/22/2011 12/16/2013 Other physical therapy 07/16/2010 7 Hypertension 06/03/2010 03/20/2017 Cellulitis and abscess of toe, unspecified 05/2309/08/2016 Other benign neoplasm of con nective and other soft tissue of unspecified site 01/21/2008 09/08/2016 Obesity, unspecified 05/14/2007 11/10/2017 Dermatophytosis of nail 01/11/2007 02/15/20 22 Pain in limb 01/11/2007 09/08/2016 Onychia and paronychia of toe 01/10/2007 Pain in joint, lower leg 09/19/2006 017 Iron deficiency anemia, unspecified 06/12/2006 09/08/2016 Need for prophylactic hormon e replacement therapy (postmenopausal) 12/30/2005 09/08/2016 Mixed hyperlipidemia 12/30/2005 03/20/2017 Type II or unspecified type diabetes mellitus without mention of complication, not stated as uncontrolled 12/30/2005 Migraine without aura 09/08/2016 documented as of this encounter (statuses as of 03/30/2022) [facility] Past illness Narrative* Problem Noted Date Resolved Date Cellulitis of left lower extremity 02/14/2022 02/14/2022 Obesity, Class I, BMI 30-34.9 11/10/2017 Type 2 DM with CKD stage 4 and hypertension 12/0403/20/2017 Metabolic acidosis 12/26/2016 03/20/2017 Secondary hyperparathyroidism of renal origin 03/20/2017 Screening for genitourinary condition 12/26/2016 03/20/2017 Anemia of renal disease 12/26/2016 03/20/20 17 Chronic anticoagulation 09/29/2016 08/02/19 22 Colon cancer screening 01/21/2016 6 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 02/18/2015 09/08/2016 CKD (chronic kidney disease) stage 3, GFR 30-59 ml/min 12/16/2013 03/29/2021 Other symptoms involving ner vous and musculoskeletal systems(781.99) 07/16/2013 09/08/2016 Statin myopathy 01/22/2011 12/16/2013 Other physical therapy 07/16/2010 7 Hypertension 06/03/2010 03/20/2017 Cellulitis and abscess of toe, unspecified 05/2309/08/2016 Other benign neoplasm of con nective and other soft tissue of unspecified site 01/21/2008 09/08/2016 Obesity, unspecified 05/14/2007 11/10/2017 Dermatophytosis of nail 01/11/2007 02/15/20 22 Pain in limb 01/11/2007 09/08/2016 Onychia and paronychia of toe 01/10/2007 Pain in joint, lower leg 09/19/2006 017 Iron deficiency anemia, unspecified 06/12/2006 09/08/2016 Need for prophylactic hormon e replacement therapy (postmenopausal) 12/30/2005 09/08/2016 Mixed hyperlipidemia 12/30/2005 03/20/2017 Type II or unspecified type diabetes mellitus without mention of complication, not stated as uncontrolled 12/30/2005 Migraine without aura 09/08/2016 documented as of this encounter (statuses as of 04/01/2022) [facility] History of Past illness Narrative* Problem Noted Date Resolved Date Cellulitis of left lower extremity 02/14/2022 02/14/2022 Obesity, Class I, BMI 30-34.9 11/10/2017 Type 2 DM with CKD stage 4 and hypertension 12/0403/20/2017 Metabolic acidosis 12/26/2016 03/20/2017 Secondary hyperparathyroidism of renal origin 03/20/2017 Screening for genitourinary condition 12/26/2016 03/20/2017 Anemia of renal disease 12/26/2016 03/20/20 17 Chronic anticoagulation 09/29/2016 08/02/19 22 Colon cancer screening 01/21/2016 6 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 02/18/2015 09/08/2016 CKD (chronic kidney disease) stage 3, GFR 30-59 ml/min 12/16/2013 03/29/2021 Other symptoms involving ner vous and musculoskeletal systems(781.99) 07/16/2013 09/08/2016 Statin myopathy 01/22/2011 12/16/2013 Other physical therapy 07/16/2010 7 Hypertension 06/03/2010 03/20/2017 Cellulitis and abscess of toe, unspecified 05/2309/08/2016 Other benign neoplasm of con nective and other soft tissue of unspecified site 01/21/2008 09/08/2016 Obesity, unspecified 05/14/2007 11/10/2017 Dermatophytosis of nail 01/11/2007 02/15/20 22 Pain in limb 01/11/2007 09/08/2016 Onychia and paronychia of toe 01/10/2007 Pain in joint, lower leg 09/19/2006 017 Iron deficiency anemia, unspecified 06/12/2006 09/08/2016 Need for prophylactic hormon e replacement therapy (postmenopausal) 12/30/2005 09/08/2016 Mixed hyperlipidemia 12/30/2005 03/20/2017 Type II or unspecified type diabetes mellitus without mention of complication, not stated as uncontrolled 12/30/2005 Migraine without aura 09/08/2016 documented as of this encounter (statuses as of 04/01/2022) [facility] History of Past illness Narrative* Problem Noted Date Resolved Date Cellulitis of left lower extremity 02/14/2022 02/14/2022 Obesity, Class I, BMI 30-34.9 11/10/2017 Type 2 DM with CKD stage 4 and hypertension 12/0403/20/2017 Metabolic acidosis 12/26/2016 03/20/2017 Secondary hyperparathyroidism of renal origin 03/20/2017 Screening for genitourinary condition 12/26/2016 03/20/2017 Anemia of renal disease 12/26/2016 03/20/20 17 Chronic anticoagulation 09/29/2016 08/02/19 22 Colon cancer screening 01/21/2016 6 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 02/18/2015 09/08/2016 CKD (chronic kidney disease) stage 3, GFR 30-59 ml/min 12/16/2013 03/29/2021 Other symptoms involving ner vous and musculoskeletal systems(781.99) 07/16/2013 09/08/2016 Statin myopathy 01/22/2011 12/16/2013 Other physical therapy 07/16/2010 7 Hypertension 06/03/2010 03/20/2017 Cellulitis and abscess of toe, unspecified 05/2309/08/2016 Other benign neoplasm of con nective and other soft tissue of unspecified site 01/21/2008 09/08/2016 Obesity, unspecified 05/14/2007 11/10/2017 Dermatophytosis of nail 01/11/2007 02/15/20 22 Pain in limb 01/11/2007 09/08/2016 Onychia and paronychia of toe 01/10/2007 Pain in joint, lower leg 09/19/2006 017 Iron deficiency anemia, unspecified 06/12/2006 09/08/2016 Need for prophylactic hormon e replacement therapy (postmenopausal) 12/30/2005 09/08/2016 Mixed hyperlipidemia 12/30/2005 03/20/2017 Type II or unspecified type diabetes mellitus without mention of complication, not stated as uncontrolled 12/30/2005 Migraine without aura 09/08/2016 documented as of this encounter (statuses as of 04/06/2022) [facility] History of Past illness Narrative* Problem Noted Date Resolved Date Cellulitis of left lower extremity 02/14/2022 02/14/2022 Obesity, Class I, BMI 30-34.9 11/10/2017 Type 2 DM with CKD stage 4 and hypertension 12/0403/20/2017 Metabolic acidosis 12/26/2016 03/20/2017 Secondary hyperparathyroidism of renal origin 03/20/2017 Screening for genitourinary condition 12/26/2016 03/20/2017 Anemia of renal disease 12/26/2016 03/20/20 17 Chronic anticoagulation 09/29/2016 08/02/19 22 Colon cancer screening 01/21/2016 6 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 02/18/2015 09/08/2016 CKD (chronic kidney disease) stage 3, GFR 30-59 ml/min 12/16/2013 03/29/2021 Other symptoms involving ner vous and musculoskeletal systems(781.99) 07/16/2013 09/08/2016 Statin myopathy 01/22/2011 12/16/2013 Other physical therapy 07/16/2010 7 Hypertension 06/03/2010 03/20/2017 Cellulitis and abscess of toe, unspecified 05/2309/08/2016 Other benign neoplasm of con nective and other soft tissue of unspecified site 01/21/2008 09/08/2016 Obesity, unspecified 05/14/2007 11/10/2017 Dermatophytosis of nail 01/11/2007 02/15/20 22 Pain in limb 01/11/2007 09/08/2016 Onychia and paronychia of toe 01/10/2007 Pain in joint, lower leg 09/19/2006 017 Iron deficiency anemia, unspecified 06/12/2006 09/08/2016 Need for prophylactic hormon e replacement therapy (postmenopausal) 12/30/2005 09/08/2016 Mixed hyperlipidemia 12/30/2005 03/20/2017 Type II or unspecified type diabetes mellitus without mention of complication, not stated as uncontrolled 12/30/2005 Migraine without aura 09/08/2016 documented as of this encounter (statuses as of 04/07/2022) [facility] History of Past illness Narrative* Problem Noted Date Resolved Date Cellulitis of left lower extremity 02/14/2022 02/14/2022 Obesity, Class I, BMI 30-34.9 11/10/2017 Type 2 DM with CKD stage 4 and hypertension 12/0403/20/2017 Metabolic acidosis 12/26/2016 03/20/2017 Secondary hyperparathyroidism of renal origin 03/20/2017 Screening for genitourinary condition 12/26/2016 03/20/2017 Anemia of renal disease 12/26/2016 03/20/20 17 Chronic anticoagulation 09/29/2016 08/02/19 22 Colon cancer screening 01/21/2016 6 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 02/18/2015 09/08/2016 CKD (chronic kidney disease) stage 3, GFR 30-59 ml/min 12/16/2013 03/29/2021 Other symptoms involving ner vous and musculoskeletal systems(781.99) 07/16/2013 09/08/2016 Statin myopathy 01/22/2011 12/16/2013 Other physical therapy 07/16/2010 7 Hypertension 06/03/2010 03/20/2017 Cellulitis and abscess of toe, unspecified 05/2309/08/2016 Other benign neoplasm of con nective and other soft tissue of unspecified site 01/21/2008 09/08/2016 Obesity, unspecified 05/14/2007 11/10/2017 Dermatophytosis of nail 01/11/2007 02/15/20 22 Pain in limb 01/11/2007 09/08/2016 Onychia and paronychia of toe 01/10/2007 Pain in joint, lower leg 09/19/2006 017 Iron deficiency anemia, unspecified 06/12/2006 09/08/2016 Need for prophylactic hormon e replacement therapy (postmenopausal) 12/30/2005 09/08/2016 Mixed hyperlipidemia 12/30/2005 03/20/2017 Type II or unspecified type diabetes mellitus without mention of complication, not stated as uncontrolled 12/30/2005 Migraine without aura 09/08/2016 documented as of this encounter (statuses as of 04/08/2022) [facility] History of Past illness Narrative* Problem Noted Date Resolved Date Cellulitis of left lower extremity 02/14/2022 02/14/2022 Obesity, Class I, BMI 30-34.9 11/10/2017 Type 2 DM with CKD stage 4 and hypertension 12/0403/20/2017 Metabolic acidosis 12/26/2016 03/20/2017 Secondary hyperparathyroidism of renal origin 03/20/2017 Screening for genitourinary condition 12/26/2016 03/20/2017 Anemia of renal disease 12/26/2016 03/20/20 17 Chronic anticoagulation 09/29/2016 08/02/19 22 Colon cancer screening 01/21/2016 6 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 02/18/2015 09/08/2016 CKD (chronic kidney disease) stage 3, GFR 30-59 ml/min 12/16/2013 03/29/2021 Other symptoms involving ner vous and musculoskeletal systems(781.99) 07/16/2013 09/08/2016 Statin myopathy 01/22/2011 12/16/2013 Other physical therapy 07/16/2010 7 Hypertension 06/03/2010 03/20/2017 Cellulitis and abscess of toe, unspecified 05/2309/08/2016 Other benign neoplasm of con nective and other soft tissue of unspecified site 01/21/2008 09/08/2016 Obesity, unspecified 05/14/2007 11/10/2017 Dermatophytosis of nail 01/11/2007 02/15/20 22 Pain in limb 01/11/2007 09/08/2016 Onychia and paronychia of toe 01/10/2007 Pain in joint, lower leg 09/19/2006 017 Iron deficiency anemia, unspecified 06/12/2006 09/08/2016 Need for prophylactic hormon e replacement therapy (postmenopausal) 12/30/2005 09/08/2016 Mixed hyperlipidemia 12/30/2005 03/20/2017 Type II or unspecified type diabetes mellitus without mention of complication, not stated as uncontrolled 12/30/2005 Migraine without aura 09/08/2016 documented as of this encounter (statuses as of 05/03/2022) [place] [address]-12-2022 History of Past illness Narrative* Problem Noted Date Resolved Date Cellulitis of left lower extremity 02/14/2022 02/14/2022 Anemia due to blood loss 08/02/2021 022 Anemia due to stage 3a chronic kidney disease 05/24/2022 Obesity, Class I, BMI 30-34.9 11/10/2017 Type 2 DM with CKD stage 4 and hypertension 12/0403/20/2017 Metabolic acidosis 12/26/2016 03/20/2017 Secondary hyperparathyroidism of renal origin 03/20/2017 Screening for genitourinary condition 12/26/2016 03/20/2017 Anemia of renal disease 12/26/2016 03/20/20 17 Chronic anticoagulation 09/29/2016 08/02/19 22 Colon cancer screening 01/21/2016 6 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 02/18/2015 09/08/2016 CKD (chronic kidney disease) stage 3, GFR 30-59 ml/min 12/16/2013 03/29/2021 Other symptoms involving ner vous and musculoskeletal systems(781.99) 07/16/2013 09/08/2016 Statin myopathy 01/22/2011 12/16/2013 Other physical therapy 07/16/2010 7 Hypertension 06/03/2010 03/20/2017 Cellulitis and abscess of toe, unspecified 05/2309/08/2016 Other benign neoplasm of con nective and other soft tissue of unspecified site 01/21/2008 09/08/2016 Obesity, unspecified 05/14/2007 11/10/2017 Dermatophytosis of nail 01/11/2007 02/15/20 22 Pain in limb 01/11/2007 09/08/2016 Onychia and paronychia of toe 01/10/2007 Pain in joint, lower leg 09/19/2006 017 Iron deficiency anemia, unspecified 06/12/2006 09/08/2016 Need for prophylactic hormon e replacement therapy (postmenopausal) 12/30/2005 09/08/2016 Mixed hyperlipidemia 12/30/2005 03/20/2017 Type II or unspecified type diabetes mellitus without mention of complication, not stated as uncontrolled 12/30/2005 Migraine without aura 09/08/2016 documented as of this encounter (statuses as of 05/24/2022) [facility] History of Past illness Narrative* Problem Noted Date Resolved Date Cellulitis of left lower extremity 02/14/2022 02/14/2022 Anemia due to blood loss 08/02/2021 022 Anemia due to stage 3a chronic kidney disease 05/24/2022 Obesity, Class I, BMI 30-34.9 11/10/2017 Type 2 DM with CKD stage 4 and hypertension 12/0403/20/2017 Metabolic acidosis 12/26/2016 03/20/2017 Secondary hyperparathyroidism of renal origin 03/20/2017 Screening for genitourinary condition 12/26/2016 03/20/2017 Anemia of renal disease 12/26/2016 03/20/20 17 Chronic anticoagulation 09/29/2016 08/02/19 22 Colon cancer screening 01/21/2016 6 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 02/18/2015 09/08/2016 CKD (chronic kidney disease) stage 3, GFR 30-59 ml/min 12/16/2013 03/29/2021 Other symptoms involving ner vous and musculoskeletal systems(781.99) 07/16/2013 09/08/2016 Statin myopathy 01/22/2011 12/16/2013 Other physical therapy 07/16/2010 7 Hypertension 06/03/2010 03/20/2017 Cellulitis and abscess of toe, unspecified 05/2309/08/2016 Other benign neoplasm of con nective and other soft tissue of unspecified site 01/21/2008 09/08/2016 Obesity, unspecified 05/14/2007 11/10/2017 Dermatophytosis of nail 01/11/2007 02/15/20 22 Pain in limb 01/11/2007 09/08/2016 Onychia and paronychia of toe 01/10/2007 Pain in joint, lower leg 09/19/2006 017 Iron deficiency anemia, unspecified 06/12/2006 09/08/2016 Need for prophylactic hormon e replacement therapy (postmenopausal) 12/30/2005 09/08/2016 Mixed hyperlipidemia 12/30/2005 03/20/2017 Type II or unspecified type diabetes mellitus without mention of complication, not stated as uncontrolled 12/30/2005 Migraine without aura 09/08/2016 documented as of this encounter (statuses as of 06/09/2022) [facility] of Past illness Narrative* Problem Noted Date Resolved Date Cellulitis of left lower extremity 02/14/2022 02/14/2022 Anemia due to blood loss 08/02/2021 022 Anemia due to stage 3a chronic kidney disease 05/24/2022 Obesity, Class I, BMI 30-34.9 11/10/2017 Type 2 DM with CKD stage 4 and hypertension 12/0403/20/2017 Metabolic acidosis 12/26/2016 03/20/2017 Secondary hyperparathyroidism of renal origin 03/20/2017 Screening for genitourinary condition 12/26/2016 03/20/2017 Anemia of renal disease 12/26/2016 03/20/20 17 Chronic anticoagulation 09/29/2016 08/02/19 22 Colon cancer screening 01/21/2016 6 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 02/18/2015 09/08/2016 CKD (chronic kidney disease) stage 3, GFR 30-59 ml/min 12/16/2013 03/29/2021 Other symptoms involving ner vous and musculoskeletal systems(781.99) 07/16/2013 09/08/2016 Statin myopathy 01/22/2011 12/16/2013 Other physical therapy 07/16/2010 7 Hypertension 06/03/2010 03/20/2017 Cellulitis and abscess of toe, unspecified 05/2309/08/2016 Other benign neoplasm of con nective and other soft tissue of unspecified site 01/21/2008 09/08/2016 Obesity, unspecified 05/14/2007 11/10/2017 Dermatophytosis of nail 01/11/2007 02/15/20 22 Pain in limb 01/11/2007 09/08/2016 Onychia and paronychia of toe 01/10/2007 Pain in joint, lower leg 09/19/2006 017 Iron deficiency anemia, unspecified 06/12/2006 09/08/2016 Need for prophylactic hormon e replacement therapy (postmenopausal) 12/30/2005 09/08/2016 Mixed hyperlipidemia 12/30/2005 03/20/2017 Type II or unspecified type diabetes mellitus without mention of complication, not stated as uncontrolled 12/30/2005 Migraine without aura 09/08/2016 documented as of this encounter (statuses as of 06/09/2022) [facility] History of Past illness Narrative* Problem Noted Date Resolved Date Cellulitis of left lower extremity 02/14/2022 02/14/2022 Anemia due to blood loss 08/02/2021 022 Anemia due to stage 3a chronic kidney disease 05/24/2022 Obesity, Class I, BMI 30-34.9 11/10/2017 Type 2 DM with CKD stage 4 and hypertension 12/0403/20/2017 Metabolic acidosis 12/26/2016 03/20/2017 Secondary hyperparathyroidism of renal origin 03/20/2017 Screening for genitourinary condition 12/26/2016 03/20/2017 Anemia of renal disease 12/26/2016 03/20/20 17 Chronic anticoagulation 09/29/2016 08/02/19 22 Colon cancer screening 01/21/2016 6 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 02/18/2015 09/08/2016 CKD (chronic kidney disease) stage 3, GFR 30-59 ml/min 12/16/2013 03/29/2021 Other symptoms involving ner vous and musculoskeletal systems(781.99) 07/16/2013 09/08/2016 Statin myopathy 01/22/2011 12/16/2013 Other physical therapy 07/16/2010 7 Hypertension 06/03/2010 03/20/2017 Cellulitis and abscess of toe, unspecified 05/2309/08/2016 Other benign neoplasm of con nective and other soft tissue of unspecified site 01/21/2008 09/08/2016 Obesity, unspecified 05/14/2007 11/10/2017 Dermatophytosis of nail 01/11/2007 02/15/20 22 Pain in limb 01/11/2007 09/08/2016 Onychia and paronychia of toe 01/10/2007 Pain in joint, lower leg 09/19/2006 017 Iron deficiency anemia, unspecified 06/12/2006 09/08/2016 Need for prophylactic hormon e replacement therapy (postmenopausal) 12/30/2005 09/08/2016 Mixed hyperlipidemia 12/30/2005 03/20/2017 Type II or unspecified type diabetes mellitus without mention of complication, not stated as uncontrolled 12/30/2005 Migraine without aura 09/08/2016 documented as of this encounter (statuses as of 06/11/2022) [facility] of Past illness Narrative* Problem Noted Date Resolved Date Cellulitis of left lower extremity 02/14/2022 02/14/2022 Anemia due to blood loss 08/02/2021 022 Anemia due to stage 3a chronic kidney disease 05/24/2022 Obesity, Class I, BMI 30-34.9 11/10/2017 Type 2 DM with CKD stage 4 and hypertension 12/0403/20/2017 Metabolic acidosis 12/26/2016 03/20/2017 Secondary hyperparathyroidism of renal origin 03/20/2017 Screening for genitourinary condition 12/26/2016 03/20/2017 Anemia of renal disease 12/26/2016 03/20/20 17 Chronic anticoagulation 09/29/2016 08/02/19 22 Colon cancer screening 01/21/2016 6 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 02/18/2015 09/08/2016 CKD (chronic kidney disease) stage 3, GFR 30-59 ml/min 12/16/2013 03/29/2021 Other symptoms involving ner vous and musculoskeletal systems(781.99) 07/16/2013 09/08/2016 Statin myopathy 01/22/2011 12/16/2013 Other physical therapy 07/16/2010 7 Hypertension 06/03/2010 03/20/2017 Cellulitis and abscess of toe, unspecified 05/2309/08/2016 Other benign neoplasm of con nective and other soft tissue of unspecified site 01/21/2008 09/08/2016 Obesity, unspecified 05/14/2007 11/10/2017 Dermatophytosis of nail 01/11/2007 02/15/20 22 Pain in limb 01/11/2007 09/08/2016 Onychia and paronychia of toe 01/10/2007 Pain in joint, lower leg 09/19/2006 017 Iron deficiency anemia, unspecified 06/12/2006 09/08/2016 Need for prophylactic hormon e replacement therapy (postmenopausal) 12/30/2005 09/08/2016 Mixed hyperlipidemia 12/30/2005 03/20/2017 Type II or unspecified type diabetes mellitus without mention of complication, not stated as uncontrolled 12/30/2005 Migraine without aura 09/08/2016 documented as of this encounter (statuses as of 06/28/2022) [facility] Past illness Narrative* Problem Noted Date Resolved Date Cellulitis of left lower extremity 02/14/2022 02/14/2022 Anemia due to blood loss 08/02/2021 022 Anemia due to stage 3a chronic kidney disease 05/24/2022 Obesity, Class I, BMI 30-34.9 11/10/2017 Type 2 DM with CKD stage 4 and hypertension 12/0403/20/2017 Metabolic acidosis 12/26/2016 03/20/2017 Secondary hyperparathyroidism of renal origin 03/20/2017 Screening for genitourinary condition 12/26/2016 03/20/2017 Anemia of renal disease 12/26/2016 03/20/20 17 Chronic anticoagulation 09/29/2016 08/02/19 22 Colon cancer screening 01/21/2016 6 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 02/18/2015 09/08/2016 CKD (chronic kidney disease) stage 3, GFR 30-59 ml/min 12/16/2013 03/29/2021 Other symptoms involving ner vous and musculoskeletal systems(781.99) 07/16/2013 09/08/2016 Statin myopathy 01/22/2011 12/16/2013 Other physical therapy 07/16/2010 7 Hypertension 06/03/2010 03/20/2017 Cellulitis and abscess of toe, unspecified 05/2309/08/2016 Other benign neoplasm of con nective and other soft tissue of unspecified site 01/21/2008 09/08/2016 Obesity, unspecified 05/14/2007 11/10/2017 Dermatophytosis of nail 01/11/2007 02/15/20 22 Pain in limb 01/11/2007 09/08/2016 Onychia and paronychia of toe 01/10/2007 Pain in joint, lower leg 09/19/2006 017 Iron deficiency anemia, unspecified 06/12/2006 09/08/2016 Need for prophylactic hormon e replacement therapy (postmenopausal) 12/30/2005 09/08/2016 Mixed hyperlipidemia 12/30/2005 03/20/2017 Type II or unspecified type diabetes mellitus without mention of complication, not stated as uncontrolled 12/30/2005 Migraine without aura 09/08/2016 documented as of this encounter (statuses as of 06/29/2022) [facility] of Past illness Narrative* Problem Noted Date Resolved Date Cellulitis of left lower extremity 02/14/2022 02/14/2022 Anemia due to blood loss 08/02/2021 022 Anemia due to stage 3a chronic kidney disease 05/24/2022 Obesity, Class I, BMI 30-34.9 11/10/2017 Type 2 DM with CKD stage 4 and hypertension 12/0403/20/2017 Metabolic acidosis 12/26/2016 03/20/2017 Secondary hyperparathyroidism of renal origin 03/20/2017 Screening for genitourinary condition 12/26/2016 03/20/2017 Anemia of renal disease 12/26/2016 03/20/20 17 Chronic anticoagulation 09/29/2016 08/02/19 22 Colon cancer screening 01/21/2016 6 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 02/18/2015 09/08/2016 CKD (chronic kidney disease) stage 3, GFR 30-59 ml/min 12/16/2013 03/29/2021 Other symptoms involving ner vous and musculoskeletal systems(781.99) 07/16/2013 09/08/2016 Statin myopathy 01/22/2011 12/16/2013 Other physical therapy 07/16/2010 7 Hypertension 06/03/2010 03/20/2017 Cellulitis and abscess of toe, unspecified 05/2309/08/2016 Other benign neoplasm of con nective and other soft tissue of unspecified site 01/21/2008 09/08/2016 Obesity, unspecified 05/14/2007 11/10/2017 Dermatophytosis of nail 01/11/2007 02/15/20 22 Pain in limb 01/11/2007 09/08/2016 Onychia and paronychia of toe 01/10/2007 Pain in joint, lower leg 09/19/2006 017 Iron deficiency anemia, unspecified 06/12/2006 09/08/2016 Need for prophylactic hormon e replacement therapy (postmenopausal) 12/30/2005 09/08/2016 Mixed hyperlipidemia 12/30/2005 03/20/2017 Type II or unspecified type diabetes mellitus without mention of complication, not stated as uncontrolled 12/30/2005 Migraine without aura 09/08/2016 documented as of this encounter (statuses as of 07/01/2022) [facility] of Past illness Narrative* Problem Noted Date Resolved Date Cellulitis of left lower extremity 02/14/2022 02/14/2022 Anemia due to blood loss 08/02/2021 022 Anemia due to stage 3a chronic kidney disease 05/24/2022 Obesity, Class I, BMI 30-34.9 11/10/2017 Type 2 DM with CKD stage 4 and hypertension 12/0403/20/2017 Metabolic acidosis 12/26/2016 03/20/2017 Secondary hyperparathyroidism of renal origin 03/20/2017 Screening for genitourinary condition 12/26/2016 03/20/2017 Anemia of renal disease 12/26/2016 03/20/20 17 Chronic anticoagulation 09/29/2016 08/02/19 22 Colon cancer screening 01/21/2016 6 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 02/18/2015 09/08/2016 CKD (chronic kidney disease) stage 3, GFR 30-59 ml/min 12/16/2013 03/29/2021 Other symptoms involving ner vous and musculoskeletal systems(781.99) 07/16/2013 09/08/2016 Statin myopathy 01/22/2011 12/16/2013 Other physical therapy 07/16/2010 7 Hypertension 06/03/2010 03/20/2017 Cellulitis and abscess of toe, unspecified 05/2309/08/2016 Other benign neoplasm of con nective and other soft tissue of unspecified site 01/21/2008 09/08/2016 Obesity, unspecified 05/14/2007 11/10/2017 Dermatophytosis of nail 01/11/2007 02/15/20 22 Pain in limb 01/11/2007 09/08/2016 Onychia and paronychia of toe 01/10/2007 Pain in joint, lower leg 09/19/2006 017 Iron deficiency anemia, unspecified 06/12/2006 09/08/2016 Need for prophylactic hormon e replacement therapy (postmenopausal) 12/30/2005 09/08/2016 Mixed hyperlipidemia 12/30/2005 03/20/2017 Type II or unspecified type diabetes mellitus without mention of complication, not stated as uncontrolled 12/30/2005 Migraine without aura 09/08/2016 documented as of this encounter (statuses as of 07/13/2022) [facility] of Past illness Narrative* Problem Noted Date Resolved Date Cellulitis of left lower extremity 02/14/2022 02/14/2022 Anemia due to blood loss 08/02/2021 022 Anemia due to stage 3a chronic kidney disease 05/24/2022 Obesity, Class I, BMI 30-34.9 11/10/2017 Type 2 DM with CKD stage 4 and hypertension 12/0403/20/2017 Metabolic acidosis 12/26/2016 03/20/2017 Secondary hyperparathyroidism of renal origin 03/20/2017 Screening for genitourinary condition 12/26/2016 03/20/2017 Anemia of renal disease 12/26/2016 03/20/20 17 Chronic anticoagulation 09/29/2016 08/02/19 22 Colon cancer screening 01/21/2016 6 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 02/18/2015 09/08/2016 CKD (chronic kidney disease) stage 3, GFR 30-59 ml/min 12/16/2013 03/29/2021 Other symptoms involving ner vous and musculoskeletal systems(781.99) 07/16/2013 09/08/2016 Statin myopathy 01/22/2011 12/16/2013 Other physical therapy 07/16/2010 7 Hypertension 06/03/2010 03/20/2017 Cellulitis and abscess of toe, unspecified 05/2309/08/2016 Other benign neoplasm of con nective and other soft tissue of unspecified site 01/21/2008 09/08/2016 Obesity, unspecified 05/14/2007 11/10/2017 Dermatophytosis of nail 01/11/2007 02/15/20 22 Pain in limb 01/11/2007 09/08/2016 Onychia and paronychia of toe 01/10/2007 Pain in joint, lower leg 09/19/2006 017 Iron deficiency anemia, unspecified 06/12/2006 09/08/2016 Need for prophylactic hormon e replacement therapy (postmenopausal) 12/30/2005 09/08/2016 Mixed hyperlipidemia 12/30/2005 03/20/2017 Type II or unspecified type diabetes mellitus without mention of complication, not stated as uncontrolled 12/30/2005 Migraine without aura 09/08/2016 documented as of this encounter (statuses as of 07/13/2022) [facility] History of Past illness Narrative* Problem Noted Date Resolved Date Cellulitis of left lower extremity 02/14/2022 02/14/2022 Anemia due to blood loss 08/02/2021 022 Anemia due to stage 3a chronic kidney disease 05/24/2022 Obesity, Class I, BMI 30-34.9 11/10/2017 Type 2 DM with CKD stage 4 and hypertension 12/0403/20/2017 Metabolic acidosis 12/26/2016 03/20/2017 Secondary hyperparathyroidism of renal origin 03/20/2017 Screening for genitourinary condition 12/26/2016 03/20/2017 Anemia of renal disease 12/26/2016 03/20/20 17 Chronic anticoagulation 09/29/2016 08/02/19 22 Colon cancer screening 01/21/2016 6 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 02/18/2015 09/08/2016 CKD (chronic kidney disease) stage 3, GFR 30-59 ml/min 12/16/2013 03/29/2021 Other symptoms involving ner vous and musculoskeletal systems(781.99) 07/16/2013 09/08/2016 Statin myopathy 01/22/2011 12/16/2013 Other physical therapy 07/16/2010 7 Hypertension 06/03/2010 03/20/2017 Cellulitis and abscess of toe, unspecified 05/2309/08/2016 Other benign neoplasm of con nective and other soft tissue of unspecified site 01/21/2008 09/08/2016 Obesity, unspecified 05/14/2007 11/10/2017 Dermatophytosis of nail 01/11/2007 02/15/20 22 Pain in limb 01/11/2007 09/08/2016 Onychia and paronychia of toe 01/10/2007 Pain in joint, lower leg 09/19/2006 017 Iron deficiency anemia, unspecified 06/12/2006 09/08/2016 Need for prophylactic hormon e replacement therapy (postmenopausal) 12/30/2005 09/08/2016 Mixed hyperlipidemia 12/30/2005 03/20/2017 Type II or unspecified type diabetes mellitus without mention of complication, not stated as uncontrolled 12/30/2005 Migraine without aura 09/08/2016 documented as of this encounter (statuses as of 07/25/2022) [facility] History of Past illness Narrative* Problem Noted Date Resolved Date Cellulitis of left lower extremity 02/14/2022 02/14/2022 Anemia due to blood loss 08/02/2021 022 Anemia due to stage 3a chronic kidney disease 05/24/2022 Obesity, Class I, BMI 30-34.9 11/10/2017 Type 2 DM with CKD stage 4 and hypertension 12/0403/20/2017 Metabolic acidosis 12/26/2016 03/20/2017 Secondary hyperparathyroidism of renal origin 03/20/2017 Screening for genitourinary condition 12/26/2016 03/20/2017 Anemia of renal disease 12/26/2016 03/20/20 17 Chronic anticoagulation 09/29/2016 08/02/19 22 Colon cancer screening 01/21/2016 6 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 02/18/2015 09/08/2016 CKD (chronic kidney disease) stage 3, GFR 30-59 ml/min 12/16/2013 03/29/2021 Other symptoms involving ner vous and musculoskeletal systems(781.99) 07/16/2013 09/08/2016 Statin myopathy 01/22/2011 12/16/2013 Other physical therapy 07/16/2010 7 Hypertension 06/03/2010 03/20/2017 Cellulitis and abscess of toe, unspecified 05/2309/08/2016 Other benign neoplasm of con nective and other soft tissue of unspecified site 01/21/2008 09/08/2016 Obesity, unspecified 05/14/2007 11/10/2017 Dermatophytosis of nail 01/11/2007 02/15/20 22 Pain in limb 01/11/2007 09/08/2016 Onychia and paronychia of toe 01/10/2007 Pain in joint, lower leg 09/19/2006 017 Iron deficiency anemia, unspecified 06/12/2006 09/08/2016 Need for prophylactic hormon e replacement therapy (postmenopausal) 12/30/2005 09/08/2016 Mixed hyperlipidemia 12/30/2005 03/20/2017 Type II or unspecified type diabetes mellitus without mention of complication, not stated as uncontrolled 12/30/2005 Migraine without aura 09/08/2016 documented as of this encounter (statuses as of 08/03/2022) [facility] History of Past illness Narrative* Problem Noted Date Resolved Date Cellulitis of left lower extremity 02/14/2022 02/14/2022 Anemia due to blood loss 08/02/2021 022 Anemia due to stage 3a chronic kidney disease 05/24/2022 Obesity, Class I, BMI 30-34.9 11/10/2017 Type 2 DM with CKD stage 4 and hypertension 12/0403/20/2017 Metabolic acidosis 12/26/2016 03/20/2017 Secondary hyperparathyroidism of renal origin 03/20/2017 Screening for genitourinary condition 12/26/2016 03/20/2017 Anemia of renal disease 12/26/2016 03/20/20 17 Chronic anticoagulation 09/29/2016 08/02/19 22 Colon cancer screening 01/21/2016 6 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 02/18/2015 09/08/2016 CKD (chronic kidney disease) stage 3, GFR 30-59 ml/min 12/16/2013 03/29/2021 Other symptoms involving ner vous and musculoskeletal systems(781.99) 07/16/2013 09/08/2016 Statin myopathy 01/22/2011 12/16/2013 Other physical therapy 07/16/2010 7 Hypertension 06/03/2010 03/20/2017 Cellulitis and abscess of toe, unspecified 05/2309/08/2016 Other benign neoplasm of con nective and other soft tissue of unspecified site 01/21/2008 09/08/2016 Obesity, unspecified 05/14/2007 11/10/2017 Dermatophytosis of nail 01/11/2007 02/15/20 22 Pain in limb 01/11/2007 09/08/2016 Onychia and paronychia of toe 01/10/2007 Pain in joint, lower leg 09/19/2006 017 Iron deficiency anemia, unspecified 06/12/2006 09/08/2016 Need for prophylactic hormon e replacement therapy (postmenopausal) 12/30/2005 09/08/2016 Mixed hyperlipidemia 12/30/2005 03/20/2017 Type II or unspecified type diabetes mellitus without mention of complication, not stated as uncontrolled 12/30/2005 Migraine without aura 09/08/2016 documented as of this encounter (statuses as of 08/23/2022) [facility] History of Past illness Narrative* Problem Noted Date Resolved Date Cellulitis of left lower extremity 02/14/2022 02/14/2022 Anemia due to blood loss 08/02/2021 022 Anemia due to stage 3a chronic kidney disease 05/24/2022 Obesity, Class I, BMI 30-34.9 11/10/2017 Type 2 DM with CKD stage 4 and hypertension 12/0403/20/2017 Metabolic acidosis 12/26/2016 03/20/2017 Secondary hyperparathyroidism of renal origin 03/20/2017 Screening for genitourinary condition 12/26/2016 03/20/2017 Anemia of renal disease 12/26/2016 03/20/20 17 Chronic anticoagulation 09/29/2016 08/02/19 22 Colon cancer screening 01/21/2016 6 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 02/18/2015 09/08/2016 CKD (chronic kidney disease) stage 3, GFR 30-59 ml/min 12/16/2013 03/29/2021 Other symptoms involving ner vous and musculoskeletal systems(781.99) 07/16/2013 09/08/2016 Statin myopathy 01/22/2011 12/16/2013 Other physical therapy 07/16/2010 7 Hypertension 06/03/2010 03/20/2017 Cellulitis and abscess of toe, unspecified 05/2309/08/2016 Other benign neoplasm of con nective and other soft tissue of unspecified site 01/21/2008 09/08/2016 Obesity, unspecified 05/14/2007 11/10/2017 Dermatophytosis of nail 01/11/2007 02/15/20 22 Pain in limb 01/11/2007 09/08/2016 Onychia and paronychia of toe 01/10/2007 Pain in joint, lower leg 09/19/2006 017 Iron deficiency anemia, unspecified 06/12/2006 09/08/2016 Need for prophylactic hormon e replacement therapy (postmenopausal) 12/30/2005 09/08/2016 Mixed hyperlipidemia 12/30/2005 03/20/2017 Type II or unspecified type diabetes mellitus without mention of complication, not stated as uncontrolled 12/30/2005 Migraine without aura 09/08/2016 documented as of this encounter (statuses as of 09/05/2022) [facility] History of Past illness Narrative* Problem Noted Date Resolved Date Cellulitis of left lower extremity 02/14/2022 02/14/2022 Anemia due to blood loss 08/02/2021 022 Anemia due to stage 3a chronic kidney disease 05/24/2022 Obesity, Class I, BMI 30-34.9 11/10/2017 Type 2 DM with CKD stage 4 and hypertension 12/0403/20/2017 Metabolic acidosis 12/26/2016 03/20/2017 Secondary hyperparathyroidism of renal origin 03/20/2017 Screening for genitourinary condition 12/26/2016 03/20/2017 Anemia of renal disease 12/26/2016 03/20/20 17 Chronic anticoagulation 09/29/2016 08/02/19 22 Colon cancer screening 01/21/2016 6 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 02/18/2015 09/08/2016 CKD (chronic kidney disease) stage 3, GFR 30-59 ml/min 12/16/2013 03/29/2021 Other symptoms involving ner vous and musculoskeletal systems(781.99) 07/16/2013 09/08/2016 Statin myopathy 01/22/2011 12/16/2013 Other physical therapy 07/16/2010 7 Hypertension 06/03/2010 03/20/2017 Cellulitis and abscess of toe, unspecified 05/2309/08/2016 Other benign neoplasm of con nective and other soft tissue of unspecified site 01/21/2008 09/08/2016 Obesity, unspecified 05/14/2007 11/10/2017 Dermatophytosis of nail 01/11/2007 02/15/20 22 Pain in limb 01/11/2007 09/08/2016 Onychia and paronychia of toe 01/10/2007 Pain in joint, lower leg 09/19/2006 017 Iron deficiency anemia, unspecified 06/12/2006 09/08/2016 Need for prophylactic hormon e replacement therapy (postmenopausal) 12/30/2005 09/08/2016 Mixed hyperlipidemia 12/30/2005 03/20/2017 Type II or unspecified type diabetes mellitus without mention of complication, not stated as uncontrolled 12/30/2005 Migraine without aura 09/08/2016 documented as of this encounter (statuses as of 09/23/2022) [facility] History of Past illness Narrative* Problem Noted Date Resolved Date Cellulitis of left lower extremity 02/14/2022 02/14/2022 Anemia due to blood loss 08/02/2021 022 Anemia due to stage 3a chronic kidney disease 05/24/2022 Obesity, Class I, BMI 30-34.9 11/10/2017 Type 2 DM with CKD stage 4 and hypertension 12/0403/20/2017 Metabolic acidosis 12/26/2016 03/20/2017 Secondary hyperparathyroidism of renal origin 03/20/2017 Screening for genitourinary condition 12/26/2016 03/20/2017 Anemia of renal disease 12/26/2016 03/20/20 17 Chronic anticoagulation 09/29/2016 08/02/19 22 Colon cancer screening 01/21/2016 6 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 02/18/2015 09/08/2016 CKD (chronic kidney disease) stage 3, GFR 30-59 ml/min 12/16/2013 03/29/2021 Other symptoms involving ner vous and musculoskeletal systems(781.99) 07/16/2013 09/08/2016 Statin myopathy 01/22/2011 12/16/2013 Other physical therapy 07/16/2010 7 Hypertension 06/03/2010 03/20/2017 Cellulitis and abscess of toe, unspecified 05/2309/08/2016 Other benign neoplasm of con nective and other soft tissue of unspecified site 01/21/2008 09/08/2016 Obesity, unspecified 05/14/2007 11/10/2017 Dermatophytosis of nail 01/11/2007 02/15/20 22 Pain in limb 01/11/2007 09/08/2016 Onychia and paronychia of toe 01/10/2007 Pain in joint, lower leg 09/19/2006 017 Iron deficiency anemia, unspecified 06/12/2006 09/08/2016 Need for prophylactic hormon e replacement therapy (postmenopausal) 12/30/2005 09/08/2016 Mixed hyperlipidemia 12/30/2005 03/20/2017 Type II or unspecified type diabetes mellitus without mention of complication, not stated as uncontrolled 12/30/2005 Migraine without aura 09/08/2016 documented as of this encounter (statuses as of 09/23/2022) [facility] History of Past illness Narrative* Problem Noted Date Resolved Date Cellulitis of left lower extremity 02/14/2022 02/14/2022 Anemia due to blood loss 08/02/2021 022 Anemia due to stage 3a chronic kidney disease 05/24/2022 Obesity, Class I, BMI 30-34.9 11/10/2017 Type 2 DM with CKD stage 4 and hypertension 12/0403/20/2017 Metabolic acidosis 12/26/2016 03/20/2017 Secondary hyperparathyroidism of renal origin 03/20/2017 Screening for genitourinary condition 12/26/2016 03/20/2017 Anemia of renal disease 12/26/2016 03/20/20 17 Chronic anticoagulation 09/29/2016 08/02/19 22 Colon cancer screening 01/21/2016 6 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 02/18/2015 09/08/2016 CKD (chronic kidney disease) stage 3, GFR 30-59 ml/min 12/16/2013 03/29/2021 Other symptoms involving ner vous and musculoskeletal systems(781.99) 07/16/2013 09/08/2016 Statin myopathy 01/22/2011 12/16/2013 Other physical therapy 07/16/2010 7 Hypertension 06/03/2010 03/20/2017 Cellulitis and abscess of toe, unspecified 05/2309/08/2016 Other benign neoplasm of con nective and other soft tissue of unspecified site 01/21/2008 09/08/2016 Obesity, unspecified 05/14/2007 11/10/2017 Dermatophytosis of nail 01/11/2007 02/15/20 22 Pain in limb 01/11/2007 09/08/2016 Onychia and paronychia of toe 01/10/2007 Pain in joint, lower leg 09/19/2006 017 Iron deficiency anemia, unspecified 06/12/2006 09/08/2016 Need for prophylactic hormon e replacement therapy (postmenopausal) 12/30/2005 09/08/2016 Mixed hyperlipidemia 12/30/2005 03/20/2017 Type II or unspecified type diabetes mellitus without mention of complication, not stated as uncontrolled 12/30/2005 Migraine without aura 09/08/2016 documented as of this encounter (statuses as of 09/30/2022) [facility] History of Past illness Narrative* Problem Noted Date Resolved Date Cellulitis of left lower extremity 02/14/2022 02/14/2022 Anemia due to blood loss 08/02/2021 022 Anemia due to stage 3a chronic kidney disease 05/24/2022 Obesity, Class I, BMI 30-34.9 11/10/2017 Type 2 DM with CKD stage 4 and hypertension 12/0403/20/2017 Metabolic acidosis 12/26/2016 03/20/2017 Secondary hyperparathyroidism of renal origin 03/20/2017 Screening for genitourinary condition 12/26/2016 03/20/2017 Anemia of renal disease 12/26/2016 03/20/20 17 Chronic anticoagulation 09/29/2016 08/02/19 22 Colon cancer screening 01/21/2016 6 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 02/18/2015 09/08/2016 CKD (chronic kidney disease) stage 3, GFR 30-59 ml/min 12/16/2013 03/29/2021 Other symptoms involving ner vous and musculoskeletal systems(781.99) 07/16/2013 09/08/2016 Statin myopathy 01/22/2011 12/16/2013 Other physical therapy 07/16/2010 7 Hypertension 06/03/2010 03/20/2017 Cellulitis and abscess of toe, unspecified 05/2309/08/2016 Other benign neoplasm of con nective and other soft tissue of unspecified site 01/21/2008 09/08/2016 Obesity, unspecified 05/14/2007 11/10/2017 Dermatophytosis of nail 01/11/2007 02/15/20 22 Pain in limb 01/11/2007 09/08/2016 Onychia and paronychia of toe 01/10/2007 Pain in joint, lower leg 09/19/2006 017 Iron deficiency anemia, unspecified 06/12/2006 09/08/2016 Need for prophylactic hormon e replacement therapy (postmenopausal) 12/30/2005 09/08/2016 Mixed hyperlipidemia 12/30/2005 03/20/2017 Type II or unspecified type diabetes mellitus without mention of complication, not stated as uncontrolled 12/30/2005 Migraine without aura 09/08/2016 documented as of this encounter (statuses as of 10/06/2022) [facility] of Past illness Narrative* Problem Noted Date Resolved Date Cellulitis of left lower extremity 02/14/2022 02/14/2022 Anemia due to blood loss 08/02/2021 022 Anemia due to stage 3a chronic kidney disease 05/24/2022 Obesity, Class I, BMI 30-34.9 11/10/2017 Type 2 DM with CKD stage 4 and hypertension 12/0403/20/2017 Metabolic acidosis 12/26/2016 03/20/2017 Secondary hyperparathyroidism of renal origin 03/20/2017 Screening for genitourinary condition 12/26/2016 03/20/2017 Anemia of renal disease 12/26/2016 03/20/20 17 Chronic anticoagulation 09/29/2016 08/02/19 22 Colon cancer screening 01/21/2016 6 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 02/18/2015 09/08/2016 CKD (chronic kidney disease) stage 3, GFR 30-59 ml/min 12/16/2013 03/29/2021 Other symptoms involving ner vous and musculoskeletal systems(781.99) 07/16/2013 09/08/2016 Statin myopathy 01/22/2011 12/16/2013 Other physical therapy 07/16/2010 7 Hypertension 06/03/2010 03/20/2017 Cellulitis and abscess of toe, unspecified 05/2309/08/2016 Other benign neoplasm of con nective and other soft tissue of unspecified site 01/21/2008 09/08/2016 Obesity, unspecified 05/14/2007 11/10/2017 Dermatophytosis of nail 01/11/2007 02/15/20 22 Pain in limb 01/11/2007 09/08/2016 Onychia and paronychia of toe 01/10/2007 Pain in joint, lower leg 09/19/2006 017 Iron deficiency anemia, unspecified 06/12/2006 09/08/2016 Need for prophylactic hormon e replacement therapy (postmenopausal) 12/30/2005 09/08/2016 Mixed hyperlipidemia 12/30/2005 03/20/2017 Type II or unspecified type diabetes mellitus without mention of complication, not stated as uncontrolled 12/30/2005 Migraine without aura 09/08/2016 documented as of this encounter (statuses as of 10/13/2022) [facility] of Past illness Narrative* Problem Noted Date Resolved Date Cellulitis of left lower extremity 02/14/2022 02/14/2022 Anemia due to blood loss 08/02/2021 022 Anemia due to stage 3a chronic kidney disease 05/24/2022 Obesity, Class I, BMI 30-34.9 11/10/2017 Type 2 DM with CKD stage 4 and hypertension 12/0403/20/2017 Metabolic acidosis 12/26/2016 03/20/2017 Secondary hyperparathyroidism of renal origin 03/20/2017 Screening for genitourinary condition 12/26/2016 03/20/2017 Anemia of renal disease 12/26/2016 03/20/20 17 Chronic anticoagulation 09/29/2016 08/02/19 22 Colon cancer screening 01/21/2016 6 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 02/18/2015 09/08/2016 CKD (chronic kidney disease) stage 3, GFR 30-59 ml/min 12/16/2013 03/29/2021 Other symptoms involving ner vous and musculoskeletal systems(781.99) 07/16/2013 09/08/2016 Statin myopathy 01/22/2011 12/16/2013 Other physical therapy 07/16/2010 7 Hypertension 06/03/2010 03/20/2017 Cellulitis and abscess of toe, unspecified 05/2309/08/2016 Other benign neoplasm of con nective and other soft tissue of unspecified site 01/21/2008 09/08/2016 Obesity, unspecified 05/14/2007 11/10/2017 Dermatophytosis of nail 01/11/2007 02/15/20 22 Pain in limb 01/11/2007 09/08/2016 Onychia and paronychia of toe 01/10/2007 Pain in joint, lower leg 09/19/2006 017 Iron deficiency anemia, unspecified 06/12/2006 09/08/2016 Need for prophylactic hormon e replacement therapy (postmenopausal) 12/30/2005 09/08/2016 Mixed hyperlipidemia 12/30/2005 03/20/2017 Type II or unspecified type diabetes mellitus without mention of complication, not stated as uncontrolled 12/30/2005 Migraine without aura 09/08/2016 documented as of this encounter (statuses as of 10/15/2022) [facility] of Past illness Narrative* Problem Noted Date Resolved Date Cellulitis of left lower extremity 02/14/2022 02/14/2022 Anemia due to blood loss 08/02/2021 022 Anemia due to stage 3a chronic kidney disease 05/24/2022 Obesity, Class I, BMI 30-34.9 11/10/2017 Type 2 DM with CKD stage 4 and hypertension 12/0403/20/2017 Metabolic acidosis 12/26/2016 03/20/2017 Secondary hyperparathyroidism of renal origin 03/20/2017 Screening for genitourinary condition 12/26/2016 03/20/2017 Anemia of renal disease 12/26/2016 03/20/20 17 Chronic anticoagulation 09/29/2016 08/02/19 22 Colon cancer screening 01/21/2016 6 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 02/18/2015 09/08/2016 CKD (chronic kidney disease) stage 3, GFR 30-59 ml/min 12/16/2013 03/29/2021 Other symptoms involving ner vous and musculoskeletal systems(781.99) 07/16/2013 09/08/2016 Statin myopathy 01/22/2011 12/16/2013 Other physical therapy 07/16/2010 7 Hypertension 06/03/2010 03/20/2017 Cellulitis and abscess of toe, unspecified 05/2309/08/2016 Other benign neoplasm of con nective and other soft tissue of unspecified site 01/21/2008 09/08/2016 Obesity, unspecified 05/14/2007 11/10/2017 Dermatophytosis of nail 01/11/2007 02/15/20 22 Pain in limb 01/11/2007 09/08/2016 Onychia and paronychia of toe 01/10/2007 Pain in joint, lower leg 09/19/2006 017 Iron deficiency anemia, unspecified 06/12/2006 09/08/2016 Need for prophylactic hormon e replacement therapy (postmenopausal) 12/30/2005 09/08/2016 Mixed hyperlipidemia 12/30/2005 03/20/2017 Type II or unspecified type diabetes mellitus without mention of complication, not stated as uncontrolled 12/30/2005 Migraine without aura 09/08/2016 documented as of this encounter (statuses as of 10/31/2022) [facility] of Past illness Narrative* Problem Noted Date Resolved Date Cellulitis of left lower extremity 02/14/2022 02/14/2022 Anemia due to blood loss 08/02/2021 022 Anemia due to stage 3a chronic kidney disease 05/24/2022 Obesity, Class I, BMI 30-34.9 11/10/2017 Type 2 DM with CKD stage 4 and hypertension 12/0403/20/2017 Metabolic acidosis 12/26/2016 03/20/2017 Secondary hyperparathyroidism of renal origin 03/20/2017 Screening for genitourinary condition 12/26/2016 03/20/2017 Anemia of renal disease 12/26/2016 03/20/20 17 Chronic anticoagulation 09/29/2016 08/02/19 22 Colon cancer screening 01/21/2016 6 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 02/18/2015 09/08/2016 CKD (chronic kidney disease) stage 3, GFR 30-59 ml/min 12/16/2013 03/29/2021 Other symptoms involving ner vous and musculoskeletal systems(781.99) 07/16/2013 09/08/2016 Statin myopathy 01/22/2011 12/16/2013 Other physical therapy 07/16/2010 7 Hypertension 06/03/2010 03/20/2017 Cellulitis and abscess of toe, unspecified 05/2309/08/2016 Other benign neoplasm of con nective and other soft tissue of unspecified site 01/21/2008 09/08/2016 Obesity, unspecified 05/14/2007 11/10/2017 Dermatophytosis of nail 01/11/2007 02/15/20 22 Pain in limb 01/11/2007 09/08/2016 Onychia and paronychia of toe 01/10/2007 Pain in joint, lower leg 09/19/2006 017 Iron deficiency anemia, unspecified 06/12/2006 09/08/2016 Need for prophylactic hormon e replacement therapy (postmenopausal) 12/30/2005 09/08/2016 Mixed hyperlipidemia 12/30/2005 03/20/2017 Type II or unspecified type diabetes mellitus without mention of complication, not stated as uncontrolled 12/30/2005 Migraine without aura 09/08/2016 documented as of this encounter (statuses as of 11/08/2022) [facility] Past illness Narrative* Problem Noted Date Resolved Date Cellulitis of left lower extremity 02/14/2022 02/14/2022 Anemia due to blood loss 08/02/2021 022 Anemia due to stage 3a chronic kidney disease 05/24/2022 Obesity, Class I, BMI 30-34.9 11/10/2017 Type 2 DM with CKD stage 4 and hypertension 12/0403/20/2017 Metabolic acidosis 12/26/2016 03/20/2017 Secondary hyperparathyroidism of renal origin 03/20/2017 Screening for genitourinary condition 12/26/2016 03/20/2017 Anemia of renal disease 12/26/2016 03/20/20 17 Chronic anticoagulation 09/29/2016 08/02/19 22 Colon cancer screening 01/21/2016 6 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 02/18/2015 09/08/2016 CKD (chronic kidney disease) stage 3, GFR 30-59 ml/min 12/16/2013 03/29/2021 Other symptoms involving ner vous and musculoskeletal systems(781.99) 07/16/2013 09/08/2016 Statin myopathy 01/22/2011 12/16/2013 Other physical therapy 07/16/2010 7 Hypertension 06/03/2010 03/20/2017 Cellulitis and abscess of toe, unspecified 05/2309/08/2016 Other benign neoplasm of con nective and other soft tissue of unspecified site 01/21/2008 09/08/2016 Obesity, unspecified 05/14/2007 11/10/2017 Dermatophytosis of nail 01/11/2007 02/15/20 22 Pain in limb 01/11/2007 09/08/2016 Onychia and paronychia of toe 01/10/2007 Pain in joint, lower leg 09/19/2006 017 Iron deficiency anemia, unspecified 06/12/2006 09/08/2016 Need for prophylactic hormon e replacement therapy (postmenopausal) 12/30/2005 09/08/2016 Mixed hyperlipidemia 12/30/2005 03/20/2017 Type II or unspecified type diabetes mellitus without mention of complication, not stated as uncontrolled 12/30/2005 Migraine without aura 09/08/2016 documented as of this encounter (statuses as of 11/09/2022) [facility] of Past illness Narrative* Problem Noted Date Resolved Date Cellulitis of left lower extremity 02/14/2022 02/14/2022 Anemia due to blood loss 08/02/2021 022 Anemia due to stage 3a chronic kidney disease 05/24/2022 Obesity, Class I, BMI 30-34.9 11/10/2017 Type 2 DM with CKD stage 4 and hypertension 12/0403/20/2017 Metabolic acidosis 12/26/2016 03/20/2017 Secondary hyperparathyroidism of renal origin 03/20/2017 Screening for genitourinary condition 12/26/2016 03/20/2017 Anemia of renal disease 12/26/2016 03/20/20 17 Chronic anticoagulation 09/29/2016 08/02/19 22 Colon cancer screening 01/21/2016 6 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 02/18/2015 09/08/2016 CKD (chronic kidney disease) stage 3, GFR 30-59 ml/min 12/16/2013 03/29/2021 Other symptoms involving ner vous and musculoskeletal systems(781.99) 07/16/2013 09/08/2016 Statin myopathy 01/22/2011 12/16/2013 Other physical therapy 07/16/2010 7 Hypertension 06/03/2010 03/20/2017 Cellulitis and abscess of toe, unspecified 05/2309/08/2016 Other benign neoplasm of con nective and other soft tissue of unspecified site 01/21/2008 09/08/2016 Obesity, unspecified 05/14/2007 11/10/2017 Dermatophytosis of nail 01/11/2007 02/15/20 22 Pain in limb 01/11/2007 09/08/2016 Onychia and paronychia of toe 01/10/2007 Pain in joint, lower leg 09/19/2006 017 Iron deficiency anemia, unspecified 06/12/2006 09/08/2016 Need for prophylactic hormon e replacement therapy (postmenopausal) 12/30/2005 09/08/2016 Mixed hyperlipidemia 12/30/2005 03/20/2017 Type II or unspecified type diabetes mellitus without mention of complication, not stated as uncontrolled 12/30/2005 Migraine without aura 09/08/2016 documented as of this encounter (statuses as of 11/17/2022) [facility] History of Past illness Narrative* Problem Noted Date Diagnosed Date Resolved Date Cellulitis of left lower extremity 02/14/2022 02/14/2022 Anemia due to blood loss 08/02/2021 Anemia due to stage 3a chronic kidney disease 10/30/19 21 05/24/2022 Obesity, Class I, BMI 30-34.9 11/10/2017 07/22/2020 Type 2 DM with CKD stage 4 and hypertension 12/26/2016 03/20/2017 Metabolic acidosis 12/26/2016 7 Secondary hyperparathyroidism of renal origin 12/27/19 17 03/20/2017 Screening for genitourinary condition 12/26/2016 03/20/2017 Anemia of renal disease 12/26/201603/05 Chronic anticoagulation 09/29/201607/07 Colon cancer screening 01/21/201601/20 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 02/18/2015 09/08/2016 CKD (chronic kidney disease) stage 3, GFR 30-59 ml/min 12/16/2013 03/29/2021 Other symptoms involving ner vous and musculoskeletal systems(781.99) 07/16/2013 09/09/19 17 Statin myopathy 01/22/2011 12/16/2013 Other physical therapy 07/16/201009/08 Hypertension 06/03/2010 03/20/2017 Cellulitis and abscess of toe, unspecified 05/23/2008 09/08/2016 Other benign neoplasm of con nective and other soft tissue of unspecified site 01/21/2008 09/09/19 17 Obesity, unspecified 05/14/2007 018 Dermatophytosis of nail 01/11/200702/03 Pain in limb 01/11/2007 09/08/2016 Onychia and paronychia of toe 01/10/2007 09/08/2016 Pain in joint, lower leg 09/19/200611/2016 Iron deficiency anemia, unspecified 06/12/2006 09/08/2016 Need for prophylactic hormon e replacement therapy (postmenopausal) 12/30/2005 09/08/2016 Mixed hyperlipidemia 12/30/2005 017 Type II or unspecified type diabetes mellitus without mention of complication, not stated as uncontrolled 12/30/2005 12/16/2013 Migraine without aura 2016 documented as of this encounter (statuses as of 12/10/2022) [facility] History of Past illness Narrative* Problem Noted Date Diagnosed Date Resolved Date Cellulitis of left lower extremity 02/14/2022 02/14/2022 Anemia due to blood loss 08/02/2021 Anemia due to stage 3a chronic kidney disease 10/30/19 21 05/24/2022 Obesity, Class I, BMI 30-34.9 11/10/2017 07/22/2020 Type 2 DM with CKD stage 4 and hypertension 12/26/2016 03/20/2017 Metabolic acidosis 12/26/2016 7 Secondary hyperparathyroidism of renal origin 12/27/19 17 03/20/2017 Screening for genitourinary condition 12/26/2016 03/20/2017 Anemia of renal disease 12/26/201603/05 Chronic anticoagulation 09/29/201607/07 Colon cancer screening 01/21/201601/20 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 02/18/2015 09/08/2016 CKD (chronic kidney disease) stage 3, GFR 30-59 ml/min 12/16/2013 03/29/2021 Other symptoms involving ner vous and musculoskeletal systems(781.99) 07/16/2013 09/09/19 17 Statin myopathy 01/22/2011 12/16/2013 Other physical therapy 07/16/201009/08 Hypertension 06/03/2010 03/20/2017 Cellulitis and abscess of toe, unspecified 05/23/2008 09/08/2016 Other benign neoplasm of con nective and other soft tissue of unspecified site 01/21/2008 09/09/19 17 Obesity, unspecified 05/14/2007 018 Dermatophytosis of nail 01/11/200702/03 Pain in limb 01/11/2007 09/08/2016 Onychia and paronychia of toe 01/10/2007 09/08/2016 Pain in joint, lower leg 09/19/200611/2016 Iron deficiency anemia, unspecified 06/12/2006 09/08/2016 Need for prophylactic hormon e replacement therapy (postmenopausal) 12/30/2005 09/08/2016 Mixed hyperlipidemia 12/30/2005 017 Type II or unspecified type diabetes mellitus without mention of complication, not stated as uncontrolled 12/30/2005 12/16/2013 Migraine without aura 2016 documented as of this encounter (statuses as of 12/13/2022) [facility] History of Past illness Narrative* Problem Noted Date Diagnosed Date Resolved Date Cellulitis of left lower extremity 02/14/2022 02/14/2022 Anemia due to blood loss 08/02/2021 Anemia due to stage 3a chronic kidney disease 10/30/19 21 05/24/2022 Obesity, Class I, BMI 30-34.9 11/10/2017 07/22/2020 Type 2 DM with CKD stage 4 and hypertension 12/26/2016 03/20/2017 Metabolic acidosis 12/26/2016 7 Secondary hyperparathyroidism of renal origin 12/27/1903/20/2017 Screening for genitourinary condition 12/26/2016 03/20/2017 Anemia of renal disease 12/26/201603/05 Chronic anticoagulation 09/29/201607/07 Colon cancer screening 01/21/201601/20 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 02/18/2015 09/08/2016 CKD (chronic kidney disease) stage 3, GFR 30-59 ml/min 12/16/2013 03/29/2021 Other symptoms involving ner vous and musculoskeletal systems(781.99) 07/16/2013 09/09/19 17 Statin myopathy 01/22/2011 12/16/2013 Other physical therapy 07/16/201009/08 Hypertension 06/03/2010 03/20/2017 Cellulitis and abscess of toe, unspecified 05/23/2008 09/08/2016 Other benign neoplasm of con nective and other soft tissue of unspecified site 01/21/2008 09/09/19 17 Obesity, unspecified 05/14/2007 018 Dermatophytosis of nail 01/11/200702/03 Pain in limb 01/11/2007 09/08/2016 Onychia and paronychia of toe 01/10/2007 09/08/2016 Pain in joint, lower leg 09/19/200611/2016 Iron deficiency anemia, unspecified 06/12/2006 09/08/2016 Need for prophylactic hormon e replacement therapy (postmenopausal) 12/30/2005 09/08/2016 Mixed hyperlipidemia 12/30/2005 017 Type II or unspecified type diabetes mellitus without mention of complication, not stated as uncontrolled 12/30/2005 12/16/2013 Migraine without aura 2016 documented as of this encounter (statuses as of 12/16/2022) [facility] History of Past illness Narrative* Problem Noted Date Diagnosed Date Resolved Date Cellulitis of left lower extremity 02/14/2022 02/14/2022 Anemia due to blood loss 08/02/2021 Anemia due to stage 3a chronic kidney disease 10/30/19 21 05/24/2022 Obesity, Class I, BMI 30-34.9 11/10/2017 07/22/2020 Type 2 DM with CKD stage 4 and hypertension 12/26/2016 03/20/2017 Metabolic acidosis 12/26/2016 7 Secondary hyperparathyroidism of renal origin 12/27/19 17 03/20/2017 Screening for genitourinary condition 12/26/2016 03/20/2017 Anemia of renal disease 12/26/201603/05 Chronic anticoagulation 09/29/201607/07 Colon cancer screening 01/21/201601/20 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 02/18/2015 09/08/2016 CKD (chronic kidney disease) stage 3, GFR 30-59 ml/min 12/16/2013 03/29/2021 Other symptoms involving ner vous and musculoskeletal systems(781.99) 07/16/2013 09/09/19 17 Statin myopathy 01/22/2011 12/16/2013 Other physical therapy 07/16/201009/08 Hypertension 06/03/2010 03/20/2017 Cellulitis and abscess of toe, unspecified 05/23/2008 09/08/2016 Other benign neoplasm of con nective and other soft tissue of unspecified site 01/21/2008 09/09/19 17 Obesity, unspecified 05/14/2007 018 Dermatophytosis of nail 01/11/200702/03 Pain in limb 01/11/2007 09/08/2016 Onychia and paronychia of toe 01/10/2007 09/08/2016 Pain in joint, lower leg 09/19/200611/2016 Iron deficiency anemia, unspecified 06/12/2006 09/08/2016 Need for prophylactic hormon e replacement therapy (postmenopausal) 12/30/2005 09/08/2016 Mixed hyperlipidemia 12/30/2005 017 Type II or unspecified type diabetes mellitus without mention of complication, not stated as uncontrolled 12/30/2005 12/16/2013 Migraine without aura 2016 documented as of this encounter (statuses as of 12/19/2022) [facility] History of Past illness Narrative* Problem Noted Date Diagnosed Date Resolved Date Cellulitis of left lower extremity 02/14/2022 02/14/2022 Anemia due to blood loss 08/02/2021 Anemia due to stage 3a chronic kidney disease 10/30/19 21 05/24/2022 Obesity, Class I, BMI 30-34.9 11/10/2017 07/22/2020 Type 2 DM with CKD stage 4 and hypertension 12/26/2016 03/20/2017 Metabolic acidosis 12/26/2016 7 Secondary hyperparathyroidism of renal origin 12/27/19 17 03/20/2017 Screening for genitourinary condition 12/26/2016 03/20/2017 Anemia of renal disease 12/26/201603/05 Chronic anticoagulation 09/29/201607/07 Colon cancer screening 01/21/201601/20 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 02/18/2015 09/08/2016 CKD (chronic kidney disease) stage 3, GFR 30-59 ml/min 12/16/2013 03/29/2021 Other symptoms involving ner vous and musculoskeletal systems(781.99) 07/16/2013 09/09/19 17 Statin myopathy 01/22/2011 12/16/2013 Other physical therapy 07/16/201009/08 Hypertension 06/03/2010 03/20/2017 Cellulitis and abscess of toe, unspecified 05/23/2008 09/08/2016 Other benign neoplasm of con nective and other soft tissue of unspecified site 01/21/2008 09/09/19 17 Obesity, unspecified 05/14/2007 018 Dermatophytosis of nail 01/11/200702/03 Pain in limb 01/11/2007 09/08/2016 Onychia and paronychia of toe 01/10/2007 09/08/2016 Pain in joint, lower leg 09/19/200611/2016 Iron deficiency anemia, unspecified 06/12/2006 09/08/2016 Need for prophylactic hormon e replacement therapy (postmenopausal) 12/30/2005 09/08/2016 Mixed hyperlipidemia 12/30/2005 017 Type II or unspecified type diabetes mellitus without mention of complication, not stated as uncontrolled 12/30/2005 12/16/2013 Migraine without aura 2016 documented as of this encounter (statuses as of 12/22/2022) [facility] History of Past illness Narrative* Problem Noted Date Diagnosed Date Resolved Date Cellulitis of left lower extremity 02/14/2022 02/14/2022 Anemia due to blood loss 08/02/2021 Anemia due to stage 3a chronic kidney disease 10/30/19 21 05/24/2022 Obesity, Class I, BMI 30-34.9 11/10/2017 07/22/2020 Type 2 DM with CKD stage 4 and hypertension 12/26/2016 03/20/2017 Metabolic acidosis 12/26/2016 7 Secondary hyperparathyroidism of renal origin 12/27/19 17 03/20/2017 Screening for genitourinary condition 12/26/2016 03/20/2017 Anemia of renal disease 12/26/201603/05 Chronic anticoagulation 09/29/201607/07 Colon cancer screening 01/21/201601/20 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 02/18/2015 09/08/2016 CKD (chronic kidney disease) stage 3, GFR 30-59 ml/min 12/16/2013 03/29/2021 Other symptoms involving ner vous and musculoskeletal systems(781.99) 07/16/2013 09/09/19 17 Statin myopathy 01/22/2011 12/16/2013 Other physical therapy 07/16/201009/08 Hypertension 06/03/2010 03/20/2017 Cellulitis and abscess of toe, unspecified 05/23/2008 09/08/2016 Other benign neoplasm of con nective and other soft tissue of unspecified site 01/21/2008 09/09/19 17 Obesity, unspecified 05/14/2007 018 Dermatophytosis of nail 01/11/200702/03 Pain in limb 01/11/2007 09/08/2016 Onychia and paronychia of toe 01/10/2007 09/08/2016 Pain in joint, lower leg 09/19/200611/2016 Iron deficiency anemia, unspecified 06/12/2006 09/08/2016 Need for prophylactic hormon e replacement therapy (postmenopausal) 12/30/2005 09/08/2016 Mixed hyperlipidemia 12/30/2005 017 Type II or unspecified type diabetes mellitus without mention of complication, not stated as uncontrolled 12/30/2005 12/16/2013 Migraine without aura 2016 documented as of this encounter (statuses as of 01/03/2023) [facility] History of Past illness Narrative* Problem Noted Date Diagnosed Date Resolved Date Cellulitis of left lower extremity 02/14/2022 02/14/2022 Anemia due to blood loss 08/02/2021 Anemia due to stage 3a chronic kidney disease 10/30/19 21 05/24/2022 Obesity, Class I, BMI 30-34.9 11/10/2017 07/22/2020 Type 2 DM with CKD stage 4 and hypertension 12/26/2016 03/20/2017 Metabolic acidosis 12/26/2016 7 Secondary hyperparathyroidism of renal origin 12/27/19 17 03/20/2017 Screening for genitourinary condition 12/26/2016 03/20/2017 Anemia of renal disease 12/26/201603/05 Chronic anticoagulation 09/29/201607/07 Colon cancer screening 01/21/201601/20 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 02/18/2015 09/08/2016 CKD (chronic kidney disease) stage 3, GFR 30-59 ml/min 12/16/2013 03/29/2021 Other symptoms involving ner vous and musculoskeletal systems(781.99) 07/16/2013 09/09/19 17 Statin myopathy 01/22/2011 12/16/2013 Other physical therapy 07/16/201009/08 Hypertension 06/03/2010 03/20/2017 Cellulitis and abscess of toe, unspecified 05/23/2008 09/08/2016 Other benign neoplasm of con nective and other soft tissue of unspecified site 01/21/2008 09/09/19 17 Obesity, unspecified 05/14/2007 018 Dermatophytosis of nail 01/11/200702/03 Pain in limb 01/11/2007 09/08/2016 Onychia and paronychia of toe 01/10/2007 09/08/2016 Pain in joint, lower leg 09/19/200611/2016 Iron deficiency anemia, unspecified 06/12/2006 09/08/2016 Need for prophylactic hormon e replacement therapy (postmenopausal) 12/30/2005 09/08/2016 Mixed hyperlipidemia 12/30/2005 017 Type II or unspecified type diabetes mellitus without mention of complication, not stated as uncontrolled 12/30/2005 12/16/2013 Migraine without aura 2016 documented as of this encounter (statuses as of 01/11/2023) [facility] History of Past illness Narrative* Problem Noted Date Diagnosed Date Resolved Date Cellulitis of left lower extremity 02/14/2022 02/14/2022 Anemia due to blood loss 08/02/2021 Anemia due to stage 3a chronic kidney disease 10/30/19 21 05/24/2022 Obesity, Class I, BMI 30-34.9 11/10/2017 07/22/2020 Type 2 DM with CKD stage 4 and hypertension 12/26/2016 03/20/2017 Metabolic acidosis 12/26/2016 7 Secondary hyperparathyroidism of renal origin 12/27/19 17 03/20/2017 Screening for genitourinary condition 12/26/2016 03/20/2017 Anemia of renal disease 12/26/201603/05 Chronic anticoagulation 09/29/201607/07 Colon cancer screening 01/21/201601/20 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 02/18/2015 09/08/2016 CKD (chronic kidney disease) stage 3, GFR 30-59 ml/min 12/16/2013 03/29/2021 Other symptoms involving ner vous and musculoskeletal systems(781.99) 07/16/2013 09/09/19 17 Statin myopathy 01/22/2011 12/16/2013 Other physical therapy 07/16/201009/08 Hypertension 06/03/2010 03/20/2017 Cellulitis and abscess of toe, unspecified 05/23/2008 09/08/2016 Other benign neoplasm of con nective and other soft tissue of unspecified site 01/21/2008 09/09/19 17 Obesity, unspecified 05/14/2007 018 Dermatophytosis of nail 01/11/200702/03 Pain in limb 01/11/2007 09/08/2016 Onychia and paronychia of toe 01/10/2007 09/08/2016 Pain in joint, lower leg 09/19/200611/2016 Iron deficiency anemia, unspecified 06/12/2006 09/08/2016 Need for prophylactic hormon e replacement therapy (postmenopausal) 12/30/2005 09/08/2016 Mixed hyperlipidemia 12/30/2005 017 Type II or unspecified type diabetes mellitus without mention of complication, not stated as uncontrolled 12/30/2005 12/16/2013 Migraine without aura 2016 documented as of this encounter (statuses as of 01/13/2023) [facility] History of Past illness Narrative* Problem Noted Date Diagnosed Date Resolved Date Cellulitis of left lower extremity 02/14/2022 02/14/2022 Anemia due to blood loss 08/02/2021 Anemia due to stage 3a chron ic kidney disease (HCC) 10/29/2020 05/24/2022 Obesity, Class I, BMI 30-34.9 11/10/2017 07/22/2020 Type 2 DM with CKD stage 4 and hypertension 12/26/2016 03/20/2017 Metabolic acidosis 12/26/2016 7 Secondary hyperparathyroidism of renal origin 12/27/19 17 03/20/2017 Screening for genitourinary condition 12/26/2016 03/20/2017 Anemia of renal disease 12/26/201603/05 Chronic anticoagulation 09/29/201607/07 Colon cancer screening 01/21/201601/20 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 02/18/2015 09/08/2016 CKD (chronic kidney disease) stage 3, GFR 30-59 ml/min 12/16/2013 03/29/2021 Other symptoms involving ner vous and musculoskeletal systems(781.99) 07/16/2013 09/09/19 17 Statin myopathy 01/22/2011 12/16/2013 Other physical therapy 07/16/201009/08 Hypertension 06/03/2010 03/20/2017 Cellulitis and abscess of toe, unspecified 05/23/2008 09/08/2016 Other benign neoplasm of con nective and other soft tissue of unspecified site 01/21/2008 09/09/19 17 Obesity, unspecified 05/14/2007 018 Dermatophytosis of nail 01/11/200702/03 Pain in limb 01/11/2007 09/08/2016 Onychia and paronychia of toe 01/10/2007 09/08/2016 Pain in joint, lower leg 09/19/200611/2016 Iron deficiency anemia, unspecified 06/12/2006 09/08/2016 Need for prophylactic hormon e replacement therapy (postmenopausal) 12/30/2005 09/08/2016 Mixed hyperlipidemia 12/30/2005 017 Type II or unspecified type diabetes mellitus without mention of complication, not stated as uncontrolled 12/30/2005 12/16/2013 Migraine without aura 2016 documented as of this encounter (statuses as of 03/30/2023) [facility] of Past illness Narrative* Problem Noted Date Diagnosed Date Resolved Date Cellulitis of left lower extremity 02/14/2022 02/14/2022 Anemia due to blood loss 08/02/2021 Anemia due to stage 3a chron ic kidney disease (HCC) 10/29/2020 05/24/2022 Obesity, Class I, BMI 30-34.9 11/10/2017 07/22/2020 Type 2 DM with CKD stage 4 and hypertension 12/26/2016 03/20/2017 Metabolic acidosis 12/26/2016 7 Secondary hyperparathyroidism of renal origin 12/27/19 17 03/20/2017 Screening for genitourinary condition 12/26/2016 03/20/2017 Anemia of renal disease 12/26/201603/05 Chronic anticoagulation 09/29/201607/07 Colon cancer screening 01/21/201601/20 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 02/18/2015 09/08/2016 CKD (chronic kidney disease) stage 3, GFR 30-59 ml/min 12/16/2013 03/29/2021 Other symptoms involving ner vous and musculoskeletal systems(781.99) 07/16/2013 09/09/19 17 Statin myopathy 01/22/2011 12/16/2013 Other physical therapy 07/16/201009/08 Hypertension 06/03/2010 03/20/2017 Cellulitis and abscess of toe, unspecified 05/23/2008 09/08/2016 Other benign neoplasm of con nective and other soft tissue of unspecified site 01/21/2008 09/09/19 17 Obesity, unspecified 05/14/2007 018 Dermatophytosis of nail 01/11/200702/03 Pain in limb 01/11/2007 09/08/2016 Onychia and paronychia of toe 01/10/2007 09/08/2016 Pain in joint, lower leg 09/19/200611/2016 Iron deficiency anemia, unspecified 06/12/2006 09/08/2016 Need for prophylactic hormon e replacement therapy (postmenopausal) 12/30/2005 09/08/2016 Mixed hyperlipidemia 12/30/2005 017 Type II or unspecified type diabetes mellitus without mention of complication, not stated as uncontrolled 12/30/2005 12/16/2013 Migraine without aura 2016 documented as of this encounter (statuses as of 04/05/2023) [facility] of Past illness Narrative* Problem Noted Date Diagnosed Date Resolved Date Cellulitis of left lower extremity 02/14/2022 02/14/2022 Anemia due to blood loss 08/02/2021 Anemia due to stage 3a chronic kidney disease 10/30/19 21 05/24/2022 Obesity, Class I, BMI 30-34.9 11/10/2017 07/22/2020 Type 2 DM with CKD stage 4 and hypertension 12/26/2016 03/20/2017 Metabolic acidosis 12/26/2016 7 Secondary hyperparathyroidism of renal origin 12/27/19 17 03/20/2017 Screening for genitourinary condition 12/26/2016 03/20/2017 Anemia of renal disease 12/26/201603/05 Chronic anticoagulation 09/29/201607/07 Colon cancer screening 01/21/201601/20 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 02/18/2015 09/08/2016 CKD (chronic kidney disease) stage 3, GFR 30-59 ml/min 12/16/2013 03/29/2021 Other symptoms involving ner vous and musculoskeletal systems(781.99) 07/16/2013 09/09/19 17 Statin myopathy 01/22/2011 12/16/2013 Other physical therapy 07/16/201009/08 Hypertension 06/03/2010 03/20/2017 Cellulitis and abscess of toe, unspecified 05/23/2008 09/08/2016 Other benign neoplasm of con nective and other soft tissue of unspecified site 01/21/2008 09/09/19 17 Obesity, unspecified 05/14/2007 018 Dermatophytosis of nail 01/11/200702/03 Pain in limb 01/11/2007 09/08/2016 Onychia and paronychia of toe 01/10/2007 09/08/2016 Pain in joint, lower leg 09/19/200611/2016 Iron deficiency anemia, unspecified 06/12/2006 09/08/2016 Need for prophylactic hormon e replacement therapy (postmenopausal) 12/30/2005 09/08/2016 Mixed hyperlipidemia 12/30/2005 017 Type II or unspecified type diabetes mellitus without mention of complication, not stated as uncontrolled 12/30/2005 12/16/2013 Migraine without aura 2016 documented as of this encounter (statuses as of 04/09/2023) [facility] of Past illness Narrative* Problem Noted Date Diagnosed Date Resolved Date Cellulitis of left lower extremity 02/14/2022 02/14/2022 Anemia due to blood loss 08/02/2021 Anemia due to stage 3a chronic kidney disease 10/30/19 21 05/24/2022 Obesity, Class I, BMI 30-34.9 11/10/2017 07/22/2020 Type 2 DM with CKD stage 4 and hypertension 12/26/2016 03/20/2017 Metabolic acidosis 12/26/2016 7 Secondary hyperparathyroidism of renal origin 12/27/1903/20/2017 Screening for genitourinary condition 12/26/2016 03/20/2017 Anemia of renal disease 12/26/201603/05 Chronic anticoagulation 09/29/201607/07 Colon cancer screening 01/21/201601/20 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 02/18/2015 09/08/2016 CKD (chronic kidney disease) stage 3, GFR 30-59 ml/min 12/16/2013 03/29/2021 Other symptoms involving ner vous and musculoskeletal systems(781.99) 07/16/2013 09/09/19 17 Statin myopathy 01/22/2011 12/16/2013 Other physical therapy 07/16/201009/08 Hypertension 06/03/2010 03/20/2017 Cellulitis and abscess of toe, unspecified 05/23/2008 09/08/2016 Other benign neoplasm of con nective and other soft tissue of unspecified site 01/21/2008 09/09/19 17 Obesity, unspecified 05/14/2007 018 Dermatophytosis of nail 01/11/200702/03 Pain in limb 01/11/2007 09/08/2016 Onychia and paronychia of toe 01/10/2007 09/08/2016 Pain in joint, lower leg 09/19/200611/2016 Iron deficiency anemia, unspecified 06/12/2006 09/08/2016 Need for prophylactic hormon e replacement therapy (postmenopausal) 12/30/2005 09/08/2016 Mixed hyperlipidemia 12/30/2005 017 Type II or unspecified type diabetes mellitus without mention of complication, not stated as uncontrolled 12/30/2005 12/16/2013 Migraine without aura 2016 documented as of this encounter (statuses as of 04/09/2023) [facility] of Past illness Narrative* Problem Noted Date Diagnosed Date Resolved Date Cellulitis of left lower extremity 02/14/2022 02/14/2022 Anemia due to blood loss 08/02/2021 Anemia due to stage 3a chron ic kidney disease (HCC) 10/29/2020 05/24/2022 Obesity, Class I, BMI 30-34.9 11/10/2017 07/22/2020 Type 2 DM with CKD stage 4 and hypertension 12/26/2016 03/20/2017 Metabolic acidosis 12/26/2016 7 Secondary hyperparathyroidism of renal origin 12/27/1903/20/2017 Screening for genitourinary condition 12/26/2016 03/20/2017 Anemia of renal disease 12/26/201603/05 Chronic anticoagulation 09/29/201607/07 Colon cancer screening 01/21/201601/20 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 02/18/2015 09/08/2016 CKD (chronic kidney disease) stage 3, GFR 30-59 ml/min 12/16/2013 03/29/2021 Other symptoms involving ner vous and musculoskeletal systems(781.99) 07/16/2013 09/09/19 17 Statin myopathy 01/22/2011 12/16/2013 Other physical therapy 07/16/201009/08 Hypertension 06/03/2010 03/20/2017 Cellulitis and abscess of toe, unspecified 05/23/2008 09/08/2016 Other benign neoplasm of con nective and other soft tissue of unspecified site 01/21/2008 09/09/19 17 Obesity, unspecified 05/14/2007 018 Dermatophytosis of nail 01/11/200702/03 Pain in limb 01/11/2007 09/08/2016 Onychia and paronychia of toe 01/10/2007 09/08/2016 Pain in joint, lower leg 09/19/200611/2016 Iron deficiency anemia, unspecified 06/12/2006 09/08/2016 Need for prophylactic hormon e replacement therapy (postmenopausal) 12/30/2005 09/08/2016 Mixed hyperlipidemia 12/30/2005 017 Type II or unspecified type diabetes mellitus without mention of complication, not stated as uncontrolled 12/30/2005 12/16/2013 Migraine without aura 2016 documented as of this encounter (statuses as of 05/02/2023) [facility] History of Past illness Narrative* Problem Noted Date Diagnosed Date Resolved Date Cellulitis of left lower extremity 02/14/2022 02/14/2022 Anemia due to blood loss 08/02/2021 Anemia due to stage 3a chron ic kidney disease (HCC) 10/29/2020 05/24/2022 Obesity, Class I, BMI 30-34.9 11/10/2017 07/22/2020 Type 2 DM with CKD stage 4 and hypertension 12/26/2016 03/20/2017 Metabolic acidosis 12/26/2016 7 Secondary hyperparathyroidism of renal origin 12/27/1903/20/2017 Screening for genitourinary condition 12/26/2016 03/20/2017 Anemia of renal disease 12/26/201603/05 Chronic anticoagulation 09/29/201607/07 Colon cancer screening 01/21/201601/20 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 02/18/2015 09/08/2016 CKD (chronic kidney disease) stage 3, GFR 30-59 ml/min 12/16/2013 03/29/2021 Other symptoms involving ner vous and musculoskeletal systems(781.99) 07/16/2013 09/09/19 17 Statin myopathy 01/22/2011 12/16/2013 Other physical therapy 07/16/201009/08 Hypertension 06/03/2010 03/20/2017 Cellulitis and abscess of toe, unspecified 05/23/2008 09/08/2016 Other benign neoplasm of con nective and other soft tissue of unspecified site 01/21/2008 09/09/19 17 Obesity, unspecified 05/14/2007 018 Dermatophytosis of nail 01/11/200702/03 Pain in limb 01/11/2007 09/08/2016 Onychia and paronychia of toe 01/10/2007 09/08/2016 Pain in joint, lower leg 09/19/200611/2016 Iron deficiency anemia, unspecified 06/12/2006 09/08/2016 Need for prophylactic hormon e replacement therapy (postmenopausal) 12/30/2005 09/08/2016 Mixed hyperlipidemia 12/30/2005 017 Type II or unspecified type diabetes mellitus without mention of complication, not stated as uncontrolled 12/30/2005 12/16/2013 Migraine without aura 2016 documented as of this encounter (statuses as of 05/12/2023) [facility] of Past illness Narrative* Problem Noted Date Diagnosed Date Resolved Date Cellulitis of left lower extremity 02/14/2022 02/14/2022 Anemia due to blood loss 08/02/2021 Anemia due to stage 3a chron ic kidney disease (HCC) 10/29/2020 05/24/2022 Obesity, Class I, BMI 30-34.9 11/10/2017 07/22/2020 Type 2 DM with CKD stage 4 and hypertension 12/26/2016 03/20/2017 Metabolic acidosis 12/26/2016 7 Secondary hyperparathyroidism of renal origin 12/27/19 17 03/20/2017 Screening for genitourinary condition 12/26/2016 03/20/2017 Anemia of renal disease 12/26/201603/05 Chronic anticoagulation 09/29/201607/07 Colon cancer screening 01/21/201601/20 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 02/18/2015 09/08/2016 CKD (chronic kidney disease) stage 3, GFR 30-59 ml/min 12/16/2013 03/29/2021 Other symptoms involving ner vous and musculoskeletal systems(781.99) 07/16/2013 09/09/19 17 Statin myopathy 01/22/2011 12/16/2013 Other physical therapy 07/16/201009/08 Hypertension 06/03/2010 03/20/2017 Cellulitis and abscess of toe, unspecified 05/23/2008 09/08/2016 Other benign neoplasm of con nective and other soft tissue of unspecified site 01/21/2008 09/09/19 17 Obesity, unspecified 05/14/2007 018 Dermatophytosis of nail 01/11/200702/03 Pain in limb 01/11/2007 09/08/2016 Onychia and paronychia of toe 01/10/2007 09/08/2016 Pain in joint, lower leg 09/19/200611/2016 Iron deficiency anemia, unspecified 06/12/2006 09/08/2016 Need for prophylactic hormon e replacement therapy (postmenopausal) 12/30/2005 09/08/2016 Mixed hyperlipidemia 12/30/2005 017 Type II or unspecified type diabetes mellitus without mention of complication, not stated as uncontrolled 12/30/2005 12/16/2013 Migraine without aura 2016 documented as of this encounter (statuses as of 05/12/2023) [facility] of Past illness Narrative* Problem Noted Date Diagnosed Date Resolved Date Cellulitis of left lower extremity 02/14/2022 02/14/2022 Anemia due to blood loss 08/02/2021 Anemia due to stage 3a chron ic kidney disease (HCC) 10/29/2020 05/24/2022 Obesity, Class I, BMI 30-34.9 11/10/2017 07/22/2020 Type 2 DM with CKD stage 4 and hypertension 12/26/2016 03/20/2017 Metabolic acidosis 12/26/2016 7 Secondary hyperparathyroidism of renal origin 12/27/19 17 03/20/2017 Screening for genitourinary condition 12/26/2016 03/20/2017 Anemia of renal disease 12/26/201603/05 Chronic anticoagulation 09/29/201607/07 Colon cancer screening 01/21/201601/20 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 02/18/2015 09/08/2016 CKD (chronic kidney disease) stage 3, GFR 30-59 ml/min 12/16/2013 03/29/2021 Other symptoms involving ner vous and musculoskeletal systems(781.99) 07/16/2013 09/09/19 17 Statin myopathy 01/22/2011 12/16/2013 Other physical therapy 07/16/201009/08 Hypertension 06/03/2010 03/20/2017 Cellulitis and abscess of toe, unspecified 05/23/2008 09/08/2016 Other benign neoplasm of con nective and other soft tissue of unspecified site 01/21/2008 09/09/19 17 Obesity, unspecified 05/14/2007 018 Dermatophytosis of nail 01/11/200702/03 Pain in limb 01/11/2007 09/08/2016 Onychia and paronychia of toe 01/10/2007 09/08/2016 Pain in joint, lower leg 09/19/200611/2016 Iron deficiency anemia, unspecified 06/12/2006 09/08/2016 Need for prophylactic hormon e replacement therapy (postmenopausal) 12/30/2005 09/08/2016 Mixed hyperlipidemia 12/30/2005 017 Type II or unspecified type diabetes mellitus without mention of complication, not stated as uncontrolled 12/30/2005 12/16/2013 Migraine without aura 2016 documented as of this encounter (statuses as of 05/12/2023) [facility] of Past illness Narrative* Problem Noted Date Diagnosed Date Resolved Date Cellulitis of left lower extremity 02/14/2022 02/14/2022 Anemia due to blood loss 08/02/2021 Anemia due to stage 3a chron ic kidney disease (HCC) 10/29/2020 05/24/2022 Obesity, Class I, BMI 30-34.9 11/10/2017 07/22/2020 Type 2 DM with CKD stage 4 and hypertension 12/26/2016 03/20/2017 Metabolic acidosis 12/26/2016 7 Secondary hyperparathyroidism of renal origin 12/27/19 17 03/20/2017 Screening for genitourinary condition 12/26/2016 03/20/2017 Anemia of renal disease 12/26/201603/05 Chronic anticoagulation 09/29/201607/07 Colon cancer screening 01/21/201601/20 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 02/18/2015 09/08/2016 CKD (chronic kidney disease) stage 3, GFR 30-59 ml/min 12/16/2013 03/29/2021 Other symptoms involving ner vous and musculoskeletal systems(781.99) 07/16/2013 09/09/19 17 Statin myopathy 01/22/2011 12/16/2013 Other physical therapy 07/16/201009/08 Hypertension 06/03/2010 03/20/2017 Cellulitis and abscess of toe, unspecified 05/23/2008 09/08/2016 Other benign neoplasm of con nective and other soft tissue of unspecified site 01/21/2008 09/09/19 17 Obesity, unspecified 05/14/2007 018 Dermatophytosis of nail 01/11/200702/03 Pain in limb 01/11/2007 09/08/2016 Onychia and paronychia of toe 01/10/2007 09/08/2016 Pain in joint, lower leg 09/19/200611/2016 Iron deficiency anemia, unspecified 06/12/2006 09/08/2016 Need for prophylactic hormon e replacement therapy (postmenopausal) 12/30/2005 09/08/2016 Mixed hyperlipidemia 12/30/2005 017 Type II or unspecified type diabetes mellitus without mention of complication, not stated as uncontrolled 12/30/2005 12/16/2013 Migraine without aura 2016 documented as of this encounter (statuses as of 05/18/2023) [facility] Miscellaneous Notes* Telephone Encounter - Yusuf You LPN - 02/14/2022 8:41 AM EDT TC to pt, scheduled pt for appt later in the day. Yusuf You LPN [facility] Miscellaneous Notes* Telephone Encounter - Chelsea Cartwright LPN - 02/10/2022 12:10 PM EDT Patient notified via voicemail. * Telephone Encounter - Stefan Moore MD - 02/10/2022 11:47 AM EDT Can do labs in six weeks. Will also follow kidney function * Telephone Encounter - Chelsea Cartwright LPN - 02/10/2022 11:16 AM EDT No. * Telephone Encounter - Stefan Moore MD - 02/10/2022 10:38 AM EDT Are they able to add tsh, a1c and lipid * Telephone Encounter - Chacha Smith RN - 02/10/2022 9:57 AM EDT Patient calls and is asking if provider needs patient to get more labs done than the CMP she had done today? Lab was unable to do other labs due to expected date on labs. If provider wants patient toget more labs done, please let patient know. Patient has appointment with provider on 02/14. Please review and advise, Chacha Smith RN [facility] History of Present illness Narrative* Stefan Moore MD - 01/31/2022 1:42 PM EDT Patient presents with: 6 Month Exam HPI: Patient presents today for office visit for follow up. Saw Pain management and begun on tramadol. Will be getting a caudal injection in her back. HTN: Patient is compliant with meds Yes Monitors bp at home: Yes. Denies side effects: Yes. Chest pain: No. Dyspnea: No. Edema: Yes. Palpitations: No. Syncope: No. Headache: No. Dizziness: No. DM: Reports overall feeling well. Medication side effects: No. Home sugar check frequency/results:yes once daily every morning Hypoglycemic spells: this morning was 73 but no symptoms. Watching diet: Yes. Unexpected weight loss: No. Polyuria, polydipsia: No. Vision Changes: No. Foot lesions or numbness or pain: right foot pain on and off by toes. Did have a venous duplex and xray of her chest since here. No current cough or congestion. Her right leg is still slightly swollen and red. No fever or chills. She is no longer seeing nephrology. She is slightly increasing her intake. Advised her if her gfr drops lower, will need to rethin meds like zyloprim and to see nephro again. MEDICATIONS: Current Outpatient Medications Medication Sig gabapentin (NEURONTIN) 300 mg capsule Take 1 capsule by mouth three times daily for 90 days. pioglitazone (ACTOS) 30 mg tablet Take 1 tablet by mouth once daily. lansoprazole (PREVACID) 30 mg capsule TAKE 1 CAPSULE EVERY MORNING BEFORE EATING cholecalciferol, Vitamin D3, (VITAMIN D3) 1,250 mcg (50,000 unit) cap capsule Take 1 capsule by mouth one time a week. carvedilol (COREG) 25 mg tablet Take 1 tablet by mouth twice daily. levothyroxine (SYNTHROID) 137 mcg tablet Take 1 tablet by mouth once daily. Take on empty stomach. For thyroid. blood sugar diagnostic (BLOOD GLUCOSE TEST) test strip Test blood sugar(s) onetimes daily. Dx: Other DM Code E11.49 Insulin: Yes glimepiride (AMARYL) 2 mg tablet Take 1 tablet by mouth daily with breakfast. glimepiride (AMARYL) 2 mg tablet Take 1 tablet by mouth daily with breakfast. Syringe with Needle, Disp, (BD LUER-TALON SYRINGE) 3 mL 25 gauge x 1 USE SYRINGE TO INJECT B12 ONCE A MONTH amiodarone (PACERONE) 200 mg tablet Take 1 tablet by mouth once daily. allopurinol (ZYLOPRIM) 100 mg tablet Take 2 tablets by mouth once daily. dulaglutide (TRULICITY) 1.5 mg/0.5 mL pen injector Inject 1.5 mg subcutaneously one time a week. Inject once per week. Discard Pen After folic acid 1 mg tablet Take 1 tablet by mouth once daily. iron polysaccharide complex (IFEREX 150) 150 mg iron capsule Take 1 capsule by mouth twice daily. colestipol (COLESTID) 1 gram tablet Take 1 tablet by mouth twice daily with meals. cyanocobalamin 1,000 mcg/mL INJECT 1 MILLILITER INTRAMUSCULARLY ONCE A MONTH acetaminophen (TYLENOL) 500 mg tablet Take 1,000 mg by mouth every 8 hours as needed. Insulin [place], Disposable, (BD ULTRA-FINE HORTENCIA PEN NEEDLE) 32 gauge x ndle Use one needle for each dose. 3x/day. E11.65 E11.49 clotrimazole (LOTRIMIN, CLOTRIM) 1 % cream Apply 1 application to affected area twice daily. triamcinolone acetonide (KENALOG) 0.1 % cream apply to affected area twice a day blood sugar diagnostic (EASYMAX N) test strip Frequency of testin times daily DX E11.49 InsulinYES Lancets lancets Test glucose 2x/daily, 250.02, insulin use: yes psyllium Husk (FIBER-CAPS) 0.52 g ORAL capsule Take 2 capsules by mouth once daily. multivitamins w-iron(FLINTSTONES PLUS IRON CHEWABLE TAB) Take one(1) tablet daily with meal. Current Facility-Administered Medications Medication Dose Route Frequency cyanocobalamin 1,000 mcg injection 1,000 mcg INTRAMUSCULAR q 4 WEEKS ALLERGIES: ALLERGIES Allergen Reactions Iodine Rash, Unknown, Hives Metformin Other: See Comments Elevated renal function Simvastatin Contraindication-Medical Surgical statin myopathy Pnqtpds-Hzg-Lyz Red* Other: See Comments myopathy Vytorin 10-10 [Ezet* Contraindication-Medical Surgical myopathy PAST MEDICAL HISTORY Diagnosis Date Acute gastritis without mention of hemorrhage Anemia, unspecified Anxiety state, unspecified Atrial fibrillation (HCC) B12 deficiency Diverticulosis of colon (without mention of hemorrhage) Esophageal reflux Gastritis Generalized osteoarthrosis, unspecified site Gout Hemorrhage of gastrointestinal tract, unspecified Hemorrhoids Iron deficiency anemia, unspecified Migraine without aura has been quiescent since menopause. Other and unspecified hyperlipidemia Type II or unspecified type diabetes mellitus without mention of complication, uncontrolled PAST SURGICAL HISTORY Procedure Laterality Date ARTHRP KNE CONDYLE&PLATU MEDIAL&LAT COMPARTMENTS 07/23/2007 Knee replacement, total right CARPAL TUNNEL 05/2014 left COLONOSCOPY FLX DX W/COLLJ SPEC WHEN PFRMD 04/14/2005 Colonoscopy COLONOSCOPY FLX DX W/COLLJ SPEC WHEN PFRMD 01/21/2016 Colonoscopy COLONOSCOPY GEN ANES 07/31/2020 External/internal hemorrhoids EGD 07/31/2020 Mild Gastritis EGD TRANSORAL BIOPSY SINGLE/MULTIPLE 06/25/2007 LAPAROSCOPIC CHOLECYSTECTOMY 01/08/2018 PAST SURGICAL HISTORY OF 1967 right breast cyst benign PAST SURGICAL HISTORY OF 2010 Rt carpal tunnel PAST SURGICAL HISTORY OF 12/2016 cataract surgery right eye TONSILLECTOMY PRIMARY/SECONDARY <AGE 12 Tonsillectomy FAMILY HISTORY Problem Relation Age of Onset Heart Mother Heart Father Pneumonia Sister No Known Problems Sister Heart Brother Cancer Maternal Grandfather Cancer Paternal Grandfather Colon Cancer No Family History Social History Tobacco Use Smoking status: Never Smokeless tobacco: Never Vaping Use Vaping Use: Never used Substance Use Topics Alcohol use: No Drug use: No Reviewed current medications, allergies, past medical history, surgical history, family history andsocial history today. REVIEW OF SYSTEMS All other reviewed and negative other than HPI. VITALS: BP 124/62 Pulse 68 Wt 102.1 kg (225 lb) BMI 34.21 kg/m Last 4 Encounter Wt Readings: Date: Wt: 01/14/2022 101.4 kg (223 lb 9.6 oz) 12/21/2021 98 kg (216 lb) 10/04/2021 103.9 kg (229 lb) 08/02/2021 100.7 kg (222 lb) PHYSICAL EXAMINATION: General appearance: Well appearing, alert, in no acute distress, well-hydrated, well nourished. Skin: right huynh slightly warm. No calf tenderness. Head: Normocephalic, no masses, lesions, tenderness or abnormalities Lungs: Lungs clear to auscultation. No wheezing, rhonchi, rales Heart: RRR without murmur, gallop, or rubs. No ectopy Abdomen: Normal abdominal exam, Abdomen soft, non-tender. Bowel sounds normal. No masses, organomegaly Extremities: No deformities, edema, skin discoloration, clubbing or cyanosis. Good capillary refill. Musculoskeletal: No joint swelling, deformity, or tenderness Peripheral pulses: Normal Neuro: Negative. ASSESSMENT/PLAN: 1. Type 2 diabetes mellitus 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 polyneuropathy, without long-term current use of insulin (HCC) - ICD9: 250.60, 357.2, ICD10: E11.42 (primary diagnosis) - stable. 2. Paroxysmal atrial fibrillation (HCC) - ICD9: 427.31, ICD10: I48.0 3. Pure hypercholesterolemia - ICD9: 272.0, ICD10: E78.00 - LIPID PANEL BASIC 4. Cardiomyopathy, nonischemic (HCC) - ICD9: 425.4, ICD10: I42.8 - stable. 5. Type 2 diabetes mellitus 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 peripheral angiopathy without gangrene, without long-termcurrent use of insulin (HCC) - ICD9: 250.70, 443.81, ICD10: E11.51 - HGB A1C 6. Other specified hypothyroidism - ICD9: 244.8, ICD10: E03.8 - Instructed patient on importance of taking on an empty stomach either first thing in the morning or at bedtime. - TSH BLD 7. Stage 3b chronic kidney disease (HCC) - ICD9: 585.3, ICD10: N18.32 - follow labs. - COMP METABOLIC PANEL 8. Cellulitis of right lower extremity - ICD9: 682.6, ICD10: L03.115 - Red flags for re-assessment reviewed with patient in detail. - DOXYCYCLINE HYCLATE 100 MG TABLET Stefan Moore MD RTO in two weeks. [facility] in [facility] encounterReg[facility] History of Present illness Narrative* Erica Colorado LPN - 01/27/2022 1:31 PM EDT Patient presents for B-12 injection. Denies any problems at this time. Patient instructed on any SEof medication, verbalized understanding and agreed to proceed with treatment. Tolerated injection well. Erica Colorado LPN documented in this encounterRegional [facility] Center08-22-2022 Miscellaneous Notes* Telephone Encounter - Darling Guo RN - 01/24/2022 4:09 PM EDT Pt called and is notified of providers results and instructions. Pt voices understanding. Darling Guo RN * Telephone Encounter - Flor Bolye APRN.OTIS - 01/24/2022 3:34 PM EDT Can you please call the patient and let her know that I reviewed her ultrasound and x-ray. Ultrasound was negative for any DVT/clot. Ankle x-ray did not show any fracture but some soft tissue swelling. I would recommend that she continue supportive care at home, may use the Lasix as discussed during office visit to help with leg swelling. Elevate the leg. If pain does not improve I would recommend following up with orthopedics. Please let me know if she has any questions. Thank you. Flor Boyle APRN.CNP documented in this encounterRegional Medical Center08-22-2022 History of Present illness Narrative* RT Scooter(R) - 01/24/2022 1:00 PM EDT Radiology Service Progress Note PATIENT NAME: Coni Romero DATE OF SERVICE: January 24, 2022 TIME: 2:04 PM PATIENT IDENTITY VERIFICATION COMPLETED USING TWO (2) IDENTIFIERS: Name and Date of confirmedby patient verbally. FALL SCREENING: Has the patient had 2 falls in the last year or 1 fall with injury or currently using an Ambulatory Assistive Device (Walker, Cane, Wheelchair, Crutches, etc.)? Yes, Patient High Riskfor Falls What interventions were put in place to prevent falls during this visit? Offered Assistance with Transfers/Clothing and Increased Observations by Caregivers PATIENT GENDER DATA: Female. status: : No status: NO. PATIENT RELEVANT IMPLANT DATA REVIEWED: Not Applicable RADIOLOGY DEPARTMENT: Ultrasound PERIPHERAL IV DATA: Not applicable SIGNED BY: RT Scooter(Karlie) January 24, 2022 2:04 PM documented in this encounterRegional [facility] Center08-22-2022 Instructions* Patient Instructions* Flor Boyle APRN.CNP - 01/24/2022 11:56 AM EDT 1.) Get Repeat chest xray and xray of right ankle. 2.) Schedule appointment for ultrasound of leg. 3.) Follow up pending test results or sooner as needed. May use Lasix for the next 2 days to help with leg swelling Continue to elevate the leg. documented in this encounterRegional Medical Center08-22-2022 History of Present illness Narrative* Flor Boyle APRN.CNP - 01/24/2022 11:40 AM EDT This is a 81 year old female who presents today with: Patient presents with: Acute Visit: right leg swelling HISTORY OF PRESENT ILLNESS: Coni Romero is a 81 year old female. Patient presents with: Acute Visit: right leg swelling Here in the office for right leg swelling. Was seen in [facility] 01/14/2022 after injury. Initially toes very tender but pain has improved. Swelling has not improved and now migrated up the right leg. The leg feels tight due to swelling. No numbness or tingling. Still having ongoing tenderness onthe right ankle. Able to ambulate but using a wheelchair today. PAST MEDICAL HISTORY: PAST MEDICAL HISTORY Diagnosis Date Acute gastritis without mention of hemorrhage Anemia, unspecified Anxiety state, unspecified Atrial fibrillation (HCC) B12 deficiency Diverticulosis of colon (without mention of hemorrhage) Esophageal reflux Gastritis Generalized osteoarthrosis, unspecified site Gout Hemorrhage of gastrointestinal tract, unspecified Hemorrhoids Iron deficiency anemia, unspecified Migraine without aura has been quiescent since menopause. Other and unspecified hyperlipidemia Type II or unspecified type diabetes mellitus without mention of complication, uncontrolled PAST SURGICAL HISTORY Procedure Laterality Date ARTHRP KNE CONDYLE&PLATU MEDIAL&LAT COMPARTMENTS 07/23/2007 Knee replacement, total right CARPAL TUNNEL 05/2014 left COLONOSCOPY FLX DX W/COLLJ SPEC WHEN PFRMD 04/14/2005 Colonoscopy COLONOSCOPY FLX DX W/COLLJ SPEC WHEN PFRMD 01/21/2016 Colonoscopy COLONOSCOPY GEN ANES 07/31/2020 External/internal hemorrhoids EGD 07/31/2020 Mild Gastritis EGD TRANSORAL BIOPSY SINGLE/MULTIPLE 06/25/2007 LAPAROSCOPIC CHOLECYSTECTOMY 01/08/2018 PAST SURGICAL HISTORY OF 1967 right breast cyst benign PAST SURGICAL HISTORY OF 2010 Rt carpal tunnel PAST SURGICAL HISTORY OF 12/2016 cataract surgery right eye TONSILLECTOMY PRIMARY/SECONDARY <AGE 12 Tonsillectomy ALLERGIES Iodine, Metformin, Simvastatin, Kdyrwvn-Pek-Gky Reductase Inhibitors, and Vytorin 10-10 [Ezetimibe-Simvastatin] MEDICATIONS Current Outpatient Medications Medication Sig gabapentin (NEURONTIN) 300 mg capsule Take 1 capsule by mouth three times daily for 90 days. pioglitazone (ACTOS) 30 mg tablet Take 1 tablet by mouth once daily. lansoprazole (PREVACID) 30 mg capsule TAKE 1 CAPSULE EVERY MORNING BEFORE EATING cholecalciferol, Vitamin D3, (VITAMIN D3) 1,250 mcg (50,000 unit) cap capsule Take 1 capsule by mouth one time a week. carvedilol (COREG) 25 mg tablet Take 1 tablet by mouth twice daily. levothyroxine (SYNTHROID) 137 mcg tablet Take 1 tablet by mouth once daily. Take on empty stomach. For thyroid. blood sugar diagnostic (BLOOD GLUCOSE TEST) test strip Test blood sugar(s) onetimes daily. Dx: Other DM Code E11.49 Insulin: Yes glimepiride (AMARYL) 2 mg tablet Take 1 tablet by mouth daily with breakfast. glimepiride (AMARYL) 2 mg tablet Take 1 tablet by mouth daily with breakfast. Syringe with Needle, Disp, (BD LUER-TALON SYRINGE) 3 mL 25 gauge x 1 USE SYRINGE TO INJECT B12 ONCE A MONTH amiodarone (PACERONE) 200 mg tablet Take 1 tablet by mouth once daily. allopurinol (ZYLOPRIM) 100 mg tablet Take 2 tablets by mouth once daily. dulaglutide (TRULICITY) 1.5 mg/0.5 mL pen injector Inject 1.5 mg subcutaneously one time a week. Inject once per week. Discard Pen After folic acid 1 mg tablet Take 1 tablet by mouth once daily. iron polysaccharide complex (IFEREX 150) 150 mg iron capsule Take 1 capsule by mouth twice daily. colestipol (COLESTID) 1 gram tablet Take 1 tablet by mouth twice daily with meals. cyanocobalamin 1,000 mcg/mL INJECT 1 MILLILITER INTRAMUSCULARLY ONCE A MONTH acetaminophen (TYLENOL) 500 mg tablet Take 1,000 mg by mouth every 8 hours as needed. Insulin [place], Disposable, (BD ULTRA-FINE HORTENCIA PEN NEEDLE) 32 gauge x ndle Use one needle for each dose. 3x/day. E11.65 E11.49 clotrimazole (LOTRIMIN, CLOTRIM) 1 % cream Apply 1 application to affected area twice daily. triamcinolone acetonide (KENALOG) 0.1 % cream apply to affected area twice a day blood sugar diagnostic (EASYMAX N) test strip Frequency of testin times daily DX E11.49 InsulinYES Lancets lancets Test glucose 2x/daily, 250.02, insulin use: yes psyllium Husk (FIBER-CAPS) 0.52 g ORAL capsule Take 2 capsules by mouth once daily. multivitamins w-iron(FLINTSTONES PLUS IRON CHEWABLE TAB) Take one(1) tablet daily with meal. Current Facility-Administered Medications Medication Dose Route Frequency cyanocobalamin 1,000 mcg injection 1,000 mcg INTRAMUSCULAR q 4 WEEKS FAMILY HISTORY Problem Relation Age of Onset Heart Mother Heart Father Pneumonia Sister No Known Problems Sister Heart Brother Cancer Maternal Grandfather Cancer Paternal Grandfather Colon Cancer No Family History Social History Tobacco Use Smoking status: Never Smokeless tobacco: Never Vaping Use Vaping Use: Never used Substance Use Topics Alcohol use: No Drug use: No REVIEW OF SYSTEMS GENERAL: No weight loss, malaise or fevers/chills HEENT: Negative for frequent or significant headaches, No changes in hearing or vision. NECK: Negative for lumps, goiter, pain and significant neck swelling RESPIRATORY: Negative for cough, hemoptysis, wheezing, dyspnea or shortness of breath CARDIOVASCULAR: Negative for chest pain, leg swelling, orthopnea, or palpitations GI: No nausea, vomiting, or diarrhea/constipation. No hematochezia/melena. No heartburn or reflux symptoms. : No history of dysuria, frequency or incontinence MUSCULOSKELETAL: + Right Ankle and lower leg swelling. SKIN: Negative for lesions, rash, and itching ENDOCRINE: Negative for cold or heat intolerance, polyuria, polydipsia and goiter NEURO: No history of headaches, syncope, paralysis, seizures or tremors MOOD: Negative for depression, anxiety, or suicidal ideation. EXAM: BP 114/60 Pulse 77 Resp 16 SpO2 98% PHYSICAL EXAM: General Appearance: Well appearing, alert, in no acute distress, well-hydrated, well nourished. Skin: Skin color, texture, turgor normal, no suspicious rashes or lesions. Head: Normocephalic, no masses, lesions, tenderness or abnormalities. Eyes: Anicteric sclera. Extraocular movements are intact. Lungs: Lungs clear to auscultation. No wheezing, rhonchi, rales. Heart: RRR without murmur, gallop, or rubs. No ectopy. Extremities: No deformities, skin discoloration, clubbing or cyanosis. Good capillary refill. + 2 pitting edema noted to the right lower leg. Negative Homans sign. Swelling noted to right lower leg. Musculoskeletal: + Ecchymosis and mild erythema/tenderness noted on the right ankle. Full ROM. Normal muscle strength. Peripheral Pulses: Normal, Capillary refill <2secs, strong peripheral pulses, Pulses palpable. ASSESSMENT/PLAN: 1. Acute right ankle pain - ICD9: 719.47, 338.19, ICD10: M25.571 (primary diagnosis) - Due to extent of swelling and tenderness will get repeat Xray. - May continue to elevate and apply ice to the area. - XR ANKLE GENERAL 3V AP/LAT/OBL RIGHT 2. Leg swelling - ICD9: 729.81, ICD10: M79.89 - Due to extensive swelling will get US to rule out any abnormalities. - Instructed the patient that she may use her Lasix for the next 2 days to help with swelling. Elevate the leg when possible. - Red flag symptoms given to patient, she verbalizes understanding when to seek emergency care. - US DVT LOWER RT Follow-up pending test results or sooner as needed. Discussed treatment plan and patient voices understanding. Patient's questions answered appropriately. Medications and potential side effects were discussed and patient voices understanding. Flor Boyle APRN.OTIS This note was partially generated using [employer] voice recognition system. Note was reviewed for accuracy. There may be minor misspellings or grammar miscues with [employer] voice recognition. documented in this encounterReg[facility]08-22-2022 Miscellaneous Notes* Telephone Encounter - Chelsea Cartwright LPN - 01/24/2022 9:16 AM EDT Patient scheduled. documented in this encounterRegional Medical Center08-12-2022 Instructions* Patient Instructions* Ana Bell APRN.CNP - 01/14/2022 12:55 PM EDT - RICE therapy - see patient instructions for further recommendations. - F/U with PCP in 5-7 days or before if worse. - Discussed Red Flag signs and when to go to ER. - Reviewed plan of care and DC papers with patient. Verbalized understanding. documented in this encounterRegional Medical Center08-12-2022 History of Present illness Narrative* Ana Bell APRN.OTIS - 01/14/2022 12:16 PM EDT Images from the original note were not included. Subjective Patient came in with complaints of right foot pain said she fell up her stairs last night. She has 2 [address] in her garage. And fell up the first one. Landed on knees. Did hit wrist and has small bruise there but denies any pain at all with that one. Said the foot seems to be getting worse but ratesit at a 3/10. The history is provided by the patient. No biblical languages professor was used. Review of Systems Constitutional: Negative. Skin: Negative. Objective Physical Exam Constitutional: Appearance: Normal appearance. Pulmonary: Effort: Pulmonary effort is normal. Musculoskeletal: Feet: Feet: Comments: Patient is tender upon palpation of the areas marked above. Mild swelling noted throughout foot. No signs of loss of circulation. Denies any numbness or tingling that is out her normal for neuropathy. Neurological: Mental Status: She is alert. PAST MEDICAL HISTORY Diagnosis Date Acute gastritis without mention of hemorrhage Anemia, unspecified Anxiety state, unspecified Atrial fibrillation (HCC) B12 deficiency Diverticulosis of colon (without mention of hemorrhage) Esophageal reflux Gastritis Generalized osteoarthrosis, unspecified site Gout Hemorrhage of gastrointestinal tract, unspecified Hemorrhoids Iron deficiency anemia, unspecified Migraine without aura has been quiescent since menopause. Other and unspecified hyperlipidemia Type II or unspecified type diabetes mellitus without mention of complication, uncontrolled PAST SURGICAL HISTORY Procedure Laterality Date ARTHRP KNE CONDYLE&PLATU MEDIAL&LAT COMPARTMENTS 07/23/2007 Knee replacement, total right CARPAL TUNNEL 05/2014 left COLONOSCOPY FLX DX W/COLLJ SPEC WHEN PFRMD 04/14/2005 Colonoscopy COLONOSCOPY FLX DX W/COLLJ SPEC WHEN PFRMD 01/21/2016 Colonoscopy COLONOSCOPY GEN ANES 07/31/2020 External/internal hemorrhoids EGD 07/31/2020 Mild Gastritis EGD TRANSORAL BIOPSY SINGLE/MULTIPLE 06/25/2007 LAPAROSCOPIC CHOLECYSTECTOMY 01/08/2018 PAST SURGICAL HISTORY OF 1967 right breast cyst benign PAST SURGICAL HISTORY OF 2010 Rt carpal tunnel PAST SURGICAL HISTORY OF 12/2016 cataract surgery right eye TONSILLECTOMY PRIMARY/SECONDARY <AGE 12 Tonsillectomy ALLERGIES Iodine, Metformin, Simvastatin, Fythudf-Tib-Aah Reductase Inhibitors, and Vytorin 10-10 [Ezetimibe-Simvastatin] MEDICATIONS gabapentin (NEURONTIN) 300 mg capsule^Take 1 capsule by mouth three times daily for 90 days.^Disp: 90 capsule^Rfl: 2 pioglitazone (ACTOS) 30 mg tablet^Take 1 tablet by mouth once daily.^Disp: 90 tablet^Rfl: 1 lansoprazole (PREVACID) 30 mg capsule^TAKE 1 CAPSULE EVERY MORNING BEFORE EATING^Disp: 90 capsule^Rfl: 1 cholecalciferol, Vitamin D3, (VITAMIN D3) 1,250 mcg (50,000 unit) cap capsule^Take 1 capsule by mouth one time a week.^Disp: 12 capsule^Rfl: 3 carvedilol (COREG) 25 mg tablet^Take 1 tablet by mouth twice daily.^Disp: 360 tablet^Rfl: 0 levothyroxine (SYNTHROID) 137 mcg tablet^Take 1 tablet by mouth once daily. Take on empty stomach. For thyroid.^Disp: 30 tablet^Rfl: 5 blood sugar diagnostic (BLOOD GLUCOSE TEST) test strip^Test blood sugar(s) onetimes daily. Dx: Other DM Code E11.49 Insulin: Yes^Disp: 50 Strip^Rfl: 11 glimepiride (AMARYL) 2 mg tablet^Take 1 tablet by mouth daily with breakfast.^Disp: 30 tablet^Rfl: 0 glimepiride (AMARYL) 2 mg tablet^Take 1 tablet by mouth daily with breakfast.^Disp: 90 tablet^Rfl: 3 Syringe with Needle, Disp, (BD LUER-TALON SYRINGE) 3 mL 25 gauge x 1 ^USE SYRINGE TO INJECT B12 ONCE A MONTH^Disp: 12 Each^Rfl: 0 amiodarone (PACERONE) 200 mg tablet^Take 1 tablet by mouth once daily.^Disp: 90 tablet^Rfl: 3 allopurinol (ZYLOPRIM) 100 mg tablet^Take 2 tablets by mouth once daily.^Disp: 180 tablet^Rfl: 3 dulaglutide (TRULICITY) 1.5 mg/0.5 mL pen injector^Inject 1.5 mg subcutaneously one time a week. Inject once per week. Discard Pen After^Disp: 6 mL^Rfl: 3 folic acid 1 mg tablet^Take 1 tablet by mouth once daily.^Disp: 90 tablet^Rfl: 3 iron polysaccharide complex (IFEREX 150) 150 mg iron capsule^Take 1 capsule by mouth twice daily.^Disp: 180 capsule^Rfl: 3 colestipol (COLESTID) 1 gram tablet^Take 1 tablet by mouth twice daily with meals.^Disp: 180 tablet^Rfl: 3 cyanocobalamin 1,000 mcg/mL^INJECT 1 MILLILITER INTRAMUSCULARLY ONCE A MONTH^Disp: 1 mL^Rfl: 12 acetaminophen (TYLENOL) 500 mg tablet^Take 1,000 mg by mouth every 8 hours as needed. ^Disp: ^Rfl: Insulin [place], Disposable, (BD ULTRA-FINE HORTENCIA PEN NEEDLE) 32 gauge x 32 ndle^Use one needle for each dose. 3x/day. E11.65 E11.49^Disp: 200 Each^Rfl: 11 clotrimazole (LOTRIMIN, CLOTRIM) 1 % cream^Apply 1 application to affected area twice daily.^Disp: 30 g^Rfl: 1 triamcinolone acetonide (KENALOG) 0.1 % cream^apply to affected area twice a day^Disp: 15 g^Rfl: 1 blood sugar diagnostic (EASYMAX N) test strip^Frequency of testin times daily DX E11.49 InsulinYES^Disp: 150 Each^Rfl: 11 Lancets lancets^Test glucose 2x/daily, 250.02, insulin use: yes^Disp: 100 Each^Rfl: 11 psyllium Husk (FIBER-CAPS) 0.52 g ORAL capsule^Take 2 capsules by mouth once daily.^Disp: ^Rfl: 0 multivitamins w-iron(FLINTSTONES PLUS IRON CHEWABLE TAB)^Take one(1) tablet daily with meal.^Disp: ^Rfl: 0 FAMILY HISTORY Problem Relation Age of Onset Heart Mother Heart Father Pneumonia Sister No Known Problems Sister Heart Brother Cancer Maternal Grandfather Cancer Paternal Grandfather Colon Cancer No Family History Social History Tobacco Use Smoking status: Never Smokeless tobacco: Never Vaping Use Vaping Use: Never used Substance Use Topics Alcohol use: No Drug use: No ASSESSMENT/PLAN: 1. Fall, initial encounter - ICD9: E888.9, ICD10: W19.XXXA - XR FOOT GENERAL 3V AP/LAT/OBL RIGHT - XR ANKLE GENERAL 3V AP/LAT/OBL RIGHT FINDINGS: Soft tissue swelling present. Patchy osseous demineralization. No acute fracture or dislocation identified. Dorsal and plantar calcaneal enthesophytes. Atherosclerotic calcification of the vasculature. IMPRESSION IMPRESSION: 1. Soft tissue swelling. 2. Osseous demineralization. 3. No radiographic evidence of acute osseous injury. Internet Network Specialist: TERESA Transcribe Date/Time: Jan 14 2022 12:45P Dictated by : DEE DENG MD Rest and ice and elevate foot for comfort. Give it a week or two and if it does not seem to be getting better then follow up with ortho for further evaluation. Order was placed in case it is needed. Ana Bell APRN.RUBY RAILS DEVELOPER documented in this encounterRegional [facility] Center08-02-2022 Miscellaneous Notes* Telephone Encounter - Chelle Watts - 01/04/2022 12:52 PM EDT Patient informed and verbalized understanding. No questions at this time. Chelle Watts * Telephone Encounter - Stefan Moore MD - 01/04/2022 12:46 PM EDT Her gfr is a little lower. Push fluids a little more and recheck bmp in two weeks documented in this encounterRegional Medical Center07-29-2022 History of Present illness Narrative* Stefan Moore MD - 12/31/2021 9:41 AM EDT Patient presents with: Cough: follow up Headache HPI: Patient presents today for office visit for cough follow up. Duration: 12 days. Cough is productive:No. Fever: :No. Shortness of breath:No. Sore throat :No. Ear Pain :No. Chest Pain :No. Previous treatments tried: finished doxy 100 mg twice daily for 10 days, prednisone 30 mg for 5 days, Polytrim eye drops . Lasix was stopped. She is using only it gains three lbs in 24 hours. Started developing headaches in the mornings for the last five days. Tylenol helps. Treated for possible pneumonia. Xray: IMPRESSION: Mild curvilinear opacities at the lung bases favoring atelectasis in the absence of clinical concern for infection. covid was negative. MEDICATIONS: Current Outpatient Medications Medication Sig gabapentin (NEURONTIN) 300 mg capsule Take 1 capsule by mouth three times daily for 90 days. pioglitazone (ACTOS) 30 mg tablet Take 1 tablet by mouth once daily. lansoprazole (PREVACID) 30 mg capsule TAKE 1 CAPSULE EVERY MORNING BEFORE EATING cholecalciferol, Vitamin D3, (VITAMIN D3) 1,250 mcg (50,000 unit) cap capsule Take 1 capsule by mouth one time a week. carvedilol (COREG) 25 mg tablet Take 1 tablet by mouth twice daily. levothyroxine (SYNTHROID) 137 mcg tablet Take 1 tablet by mouth once daily. Take on empty stomach. For thyroid. blood sugar diagnostic (BLOOD GLUCOSE TEST) test strip Test blood sugar(s) onetimes daily. Dx: Other DM Code E11.49 Insulin: Yes glimepiride (AMARYL) 2 mg tablet Take 1 tablet by mouth daily with breakfast. (Patient not taking: Reported on 12/21/2021 ) glimepiride (AMARYL) 2 mg tablet Take 1 tablet by mouth daily with breakfast. Syringe with Needle, Disp, (BD LUER-TALON SYRINGE) 3 mL 25 gauge x 1 USE SYRINGE TO INJECT B12 ONCE A MONTH amiodarone (PACERONE) 200 mg tablet Take 1 tablet by mouth once daily. allopurinol (ZYLOPRIM) 100 mg tablet Take 2 tablets by mouth once daily. furosemide (LASIX) 20 mg tablet Take 1 tablet by mouth once daily. (Patient taking differently: Take 20 mg by mouth once daily. Taking 20mg for 2 days and skipping a dose per [employer]. ) dulaglutide (TRULICITY) 1.5 mg/0.5 mL pen injector Inject 1.5 mg subcutaneously one time a week. Inject once per week. Discard Pen After folic acid 1 mg tablet Take 1 tablet by mouth once daily. iron polysaccharide complex (IFEREX 150) 150 mg iron capsule Take 1 capsule by mouth twice daily. glimepiride (AMARYL) 4 mg tablet Take 0.5 tablets by mouth once daily. (Patient not taking: Reported on 09/01/2021 ) colestipol (COLESTID) 1 gram tablet Take 1 tablet by mouth twice daily with meals. cyanocobalamin 1,000 mcg/mL INJECT 1 MILLILITER INTRAMUSCULARLY ONCE A MONTH acetaminophen (TYLENOL) 500 mg tablet Take 1,000 mg by mouth every 8 hours as needed. Insulin [place], Disposable, (BD ULTRA-FINE HORTENCIA PEN NEEDLE) 32 gauge x 5/32 ndle Use one needle for each dose. 3x/day. E11.65 E11.49 clotrimazole (LOTRIMIN, CLOTRIM) 1 % cream Apply 1 application to affected area twice daily. triamcinolone acetonide (KENALOG) 0.1 % cream apply to affected area twice a day blood sugar diagnostic (EASYMAX N) test strip Frequency of testin times daily DX E11.49 InsulinYES Lancets lancets Test glucose 2x/daily, 250.02, insulin use: yes psyllium Husk (FIBER-CAPS) 0.52 g ORAL capsule Take 2 capsules by mouth once daily. multivitamins w-iron(FLINTSTONES PLUS IRON CHEWABLE TAB) Take one(1) tablet daily with meal. Current Facility-Administered Medications Medication Dose Route Frequency cyanocobalamin 1,000 mcg injection 1,000 mcg INTRAMUSCULAR q 4 WEEKS ALLERGIES: ALLERGIES Allergen Reactions Iodine Rash, Unknown, Hives Metformin Other: See Comments Elevated renal function Simvastatin Contraindication-Medical Surgical statin myopathy [id number] Red* Other: See Comments myopathy Vytorin 10-10 [Ezet* Contraindication-Medical Surgical myopathy PAST MEDICAL HISTORY Diagnosis Date Acute gastritis without mention of hemorrhage Anemia, unspecified Anxiety state, unspecified Atrial fibrillation (HCC) B12 deficiency Diverticulosis of colon (without mention of hemorrhage) Esophageal reflux Gastritis Generalized osteoarthrosis, unspecified site Gout Hemorrhage of gastrointestinal tract, unspecified Hemorrhoids Iron deficiency anemia, unspecified Migraine without aura has been quiescent since menopause. Other and unspecified hyperlipidemia Type II or unspecified type diabetes mellitus without mention of complication, uncontrolled PAST SURGICAL HISTORY Procedure Laterality Date ARTHRP KNE CONDYLE&PLATU MEDIAL&LAT COMPARTMENTS 07/23/2007 Knee replacement, total right CARPAL TUNNEL 05/2014 left COLONOSCOPY FLX DX W/COLLJ SPEC WHEN PFRMD 04/14/2005 Colonoscopy COLONOSCOPY FLX DX W/COLLJ SPEC WHEN PFRMD 01/21/2016 Colonoscopy COLONOSCOPY GEN ANES 07/31/2020 External/internal hemorrhoids EGD 07/31/2020 Mild Gastritis EGD TRANSORAL BIOPSY SINGLE/MULTIPLE 06/25/2007 LAPAROSCOPIC CHOLECYSTECTOMY 01/08/2018 PAST SURGICAL HISTORY OF 1967 right breast cyst benign PAST SURGICAL HISTORY OF 2010 Rt carpal tunnel PAST SURGICAL HISTORY OF 12/2016 cataract surgery right eye TONSILLECTOMY PRIMARY/SECONDARY <AGE 12 Tonsillectomy FAMILY HISTORY Problem Relation Age of Onset Heart Mother Heart Father Pneumonia Sister No Known Problems Sister Heart Brother Cancer Maternal Grandfather Cancer Paternal Grandfather Colon Cancer No Family History Social History Tobacco Use Smoking status: Never Smoker Smokeless tobacco: Never Used Vaping Use Vaping Use: Never used Substance Use Topics Alcohol use: No Drug use: No Reviewed current medications, allergies, past medical history, surgical history, family history andsocial history today. REVIEW OF SYSTEMS All other reviewed and negative other than HPI. VITALS: BP 138/58 Pulse 78 Temp 36.6 C (97.8 F) Resp 18 SpO2 97% Last 4 Encounter Wt Readings: Date: Wt: 12/21/2021 98 kg (216 lb) 10/04/2021 103.9 kg (229 lb) 08/02/2021 100.7 kg (222 lb) 04/20/2021 101.7 kg (224 lb 1.9 oz) PHYSICAL EXAMINATION: General appearance: Well appearing, alert, in no acute distress, well-hydrated, well nourished. Skin: Skin color, texture, turgor normal, no suspicious rashes or lesions Head: Normocephalic, no masses, lesions, tenderness or abnormalities Lungs: Lungs clear to auscultation. No wheezing, rhonchi, rales Heart: RRR without murmur, gallop, or rubs. No ectopy Abdomen: Normal abdominal exam, Abdomen soft, non-tender. Bowel sounds normal. No masses, organomegaly Extremities: No deformities, edema, skin discoloration, clubbing or cyanosis. Good capillary refill. ASSESSMENT/PLAN: 1. Bacterial pneumonia - ICD9: 482.9, ICD10: J15.9 (primary diagnosis) - recheck xray in one month. Doing well. - XR CHEST 2V FRONTAL/LAT 2. Type 2 diabetes mellitus 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 polyneuropathy, without long-term current use of insulin (HCC) - ICD9: 250.60, 357.2, ICD10: E11.42 Controlled. - Continue current medications 3. Cardiomyopathy, nonischemic (HCC) - ICD9: 425.4, ICD10: I42.8 - ok to take lasix as she has been doing. She will monitor weight. Get labs next week. No signs of fluid overload. - BASIC METABOLIC PNL 4. Congestive heart failure, unspecified HF chronicity, unspecified heart failure type (HCC) - ICD9: 428.0, ICD10: I50.9 - BASIC METABOLIC PNL Stefan Moore documented in this encounterRegional [facility] Center07-28-2022 History of Present illness Narrative* Erica [place] LPN - 12/30/2021 12:56 PM EDT Patient presents for B-12 injection. Denies any problems at this time. Patient instructed on any SEof medication, verbalized understanding and agreed to proceed with treatment. Tolerated injection well. Erica [place] LPN documented in this encounterRegional Medical Center07-21-2022 Instructions* Patient Instructions* Mason King PA-C - 12/23/2021 10:13 AM EDT Complete antibiotic. Push fluids, rest. Can alter lasix according the parameters: Monitor daily weight If weight > 3lbs increase + with shortness of breath or increase leg swelling take lasix 20mg documented in this encounterRegional Medical Center07-21-2022 History of Present illness Narrative* Mason King PA-C - 12/23/2021 9:40 AM EDT 81 year old female with c/o 12/21/2021 presented to urgent care with cough, nasal congestion, eye drainage over a week. Afebrile. Documented as having sinus pain and discharge with cough and wheeze. Chest x-ray demonstrated mild curvilinear opacities in the lung bases favoring atelectasis in the absence of clinical concern for infection. Given prescription for doxycycline 100 mg twice daily for 10 days, Polytrim be eyedrops 4 times daily and prednisone 30 mg daily for 5 days. Had significant improvement after 1 day on antibiotics. Taking Mucinex Aches all over. Secondary hypertension due to renal disease Cardiomyopathy, nonischemic (hcc) Paroxysmal atrial fibrillation (hcc) Statin myopathy Pvd (peripheral vascular disease) (hcc) Dayana (obstructive sleep apnea) Cardiovascular interval hx: Current meds: Carvedilol 25 mg twice daily amiodorone 200mg daily Furosemide 20mg 2 days and and one off Colestid 1 gm twice daily with meals Use of NTG: No Chest pain, arm, jaw pain, neck, or upper back pain suggestive of angina: No. SOB: No Dyspnea with exertion: No orthopnea: No racing or irregular heartbeats: No palpitations: No syncopal sx: No Unexplainable fatigue No Leg swelling: a little Nausea: No diaphoresis: No Heartburn: No Claudication: No Smoking: No Following Low cholesterol, high fiber diet? Yes If on statin: muscle aches? No If on statin: GI sx or diarrhea? No Additional history follows with [facility] [facility]. Component Latest Ref Rng & Units 08/02/2021 10/01/2021 12/21/2021 Protein, Total 6.3 - 8.0 g/dL 6.9 Albumin 3.9 - 4.9 g/dL 3.7 (L) Calcium 8.5 - 10.2 mg/dL 9.2 8.8 9.0 Bilirubin, Total 0.2 - 1.3 mg/dL 0.3 Alkaline Phosphatase 34 - 123 U/L 139 (H) AST 13 - 35 U/L 13 ALT 7 - 38 U/L 18 Glucose 74 - 99 mg/dL 112 (H) 86 117 (H) BUN 7 - 21 mg/dL 39 (H) 40 (H) 36 (H) Creatinine 0.58 - 0.96 mg/dL 1.56 (H) 1.70 (H) 1.50 (H) Sodium 136 - 144 mmol/L 139 139 139 Potassium 3.7 - 5.1 mmol/L 4.5 4.3 4.0 Chloride 97 - 105 mmol/L 102 102 101 CO2 22 - 30 mmol/L 26 29 26 Anion Gap 9 - 18 mmol/L 11 8 (L) 12 eGFR >=60 mL/min/1.73m 33 (L) 30 (L) 35 (L) Type 2 diabetes mellitus 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 neuropathy, unspecified whether lobsterman insulin use (hcc) Type 2 diabetes mellitus with stage 3b chronic kidney disease, without long-term current use of insulin (hcc) Diabetes Mellitus Type 2: Current medications: Pioglitazone 30 mg daily Glimepiride 4 mg tablet 1/2 tablet daily: Not taking Dulaglutide 1.5 mg subcu injection weekly Taking medication as directed consistently? Yes Medical Issues / Complications: hypertension, hyperlipidemia, nephropathy, cardiovascular disease and TIA/CVA Checking blood sugars at home? No. Watching diet? Yes, trying to eat healthy and cut out carbs Physical Activity: Sedentary Hypoglycemic spells? No Any visual disturbance? No Chest pain? No New numbness, tingling or loss of sensation? No Any recent foot problems, sores or rashes? No Any recent or sudden weight loss? No Change in urination? No. If yes: Any recent illness? No Last eye exam: due. Last foot exam: up to date. HBA1C: Hemoglobin A1C (%) Date Value 07/29/2021 6.0 01/22/2021 6.0 ) CMP: Glucose 117 12/21/2021 BUN 36 12/21/2021 Creatinine 1.50 12/21/2021 Sodium 139 12/21/2021 Potassium 4.0 12/21/2021 Chloride 101 12/21/2021 CO2 26 12/21/2021 Protein, Total 6.9 12/21/2021 Albumin 3.7 12/21/2021 Calcium 9.0 12/21/2021 Alkaline Phosphatase 139 12/21/2021 Bilirubin, Total 0.3 12/21/2021 AST 13 12/21/2021 ALT 18 12/21/2021 Last 2 Encounter Wt Readings: Date: Wt: 12/21/2021 98 kg (216 lb) 10/04/2021 103.9 kg (229 lb) Other specified hypothyroidism Current medication: Levothyroxine 137 mcg daily AC Taking as directed on an empty stomach? Yes. Thyroid pain: No. Mass effect: No. Change in energy level/ fatigue? No, Always tired. Sleep disturbance ?No. Temperature Intolerance: cold No, hot No. In females, menstrual cycle issues? N/a/, If yes: Change in bowel habits? No. If yes: Constipation? Yes. If yes: takes fiber which helps. Diarrhea? No. If yes: Weight changes?Yes. 13lbs weight loss intentional Memory issues: No. Diaphoresis: No. Numbness, tingling no Radiological imaging with contrast dyes within the last 3 months? No. History of radiation exposure to head or neck area? No. Change in hair or skin? No. 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 Anemia due to nba 3b CKD Iron deficiency Folate deficiency B12 deficiency (primary encounter diagnosis) Current medications: Folic acid 1 mg daily Iron polysaccharide complex 150 mg iron capsule twice daily Cyanocobalamin mean 1000 mg IM injection once a month Component Latest Ref Rng & Units 08/02/2021 10/01/2021 12/21/2021 WBC 3.70 - 11.00 k/uL 5.88 4.81 8.81 RBC 3.90 - 5.20 m/uL 3.99 3.50 (L) 3.52 (L) Hemoglobin 11.5 - 15.5 g/dL 11.7 10.5 (L) 10.8 (L) Hematocrit 36.0 - 46.0 % 38.7 33.4 (L) 33.0 (L) MCV 80.0 - 100.0 fL 97.0 95.4 93.8 MCH 26.0 - 34.0 pg 29.3 30.0 30.7 MCHC 30.5 - 36.0 g/dL 30.2 (L) 31.4 32.7 RDW-CV 11.5 - 15.0 % 15.2 (H) 16.1 (H) 15.9 (H) Platelet Count 150 - 400 k/uL 217 175 195 MPV 9.0 - 12.7 fL 10.7 10.2 10.4 Neut% % 69.7 77.8 Abs Neut (ANC) 1.45 - 7.50 k/uL 3.35 6.85 Lymph% % 18.9 13.5 Abs Lymph 1.00 - 4.00 k/uL 0.91 (L) 1.19 Door% % 6.9 5.4 Abs Door <0.87 k/uL 0.33 0.48 Eosin% % 3.5 2.4 Abs Eosin <0.46 k/uL 0.17 0.21 Baso% % 0.8 0.3 Abs Baso <0.11 k/uL 0.04 0.03 Immature Gran % % 0.2 0.6 IMMATURE GRANS (ABS) <0.10 k/uL <0.03 0.05 NRBC /100 WBC 0.0 0.0 Absolute nRBC <0.01 k/uL <0.01 <0.01 <0.01 DTYPE Auto Auto Iron 41 - 186 ug/dL 61 56 TIBC 232 - 386 ug/dL 319 316 Transferrin Saturation 15 - 57 % 19 18 Ferritin 14.7 - 205.1 ng/mL 257.0 (H) Component Latest Ref Rng & Units 05/07/2020 10/29/2020 08/02/2021 Vitamin B12 232-1,245 pg/mL 1,126 1,345 (H) >2,000 (H) Folate >4.7 ng/mL 7.6 4.7 (L) MMA 79 - 376 nmol/L 387 (H) Vitamin B6, Plasma 20.0 - 125.0 nmol/L SEE NOTE Gout Current medications: Allopurinol 100 mg 2 tablets daily. No issues. HISTORIES FAMILY HISTORY Problem Relation Age of Onset Heart Mother Heart Father Pneumonia Sister No Known Problems Sister Heart Brother Cancer Maternal Grandfather Cancer Paternal Grandfather Colon Cancer No Family History PAST MEDICAL HISTORY Diagnosis Date Acute gastritis without mention of hemorrhage Anemia, unspecified Anxiety state, unspecified Atrial fibrillation (HCC) B12 deficiency Diverticulosis of colon (without mention of hemorrhage) Esophageal reflux Gastritis Generalized osteoarthrosis, unspecified site Gout Hemorrhage of gastrointestinal tract, unspecified Hemorrhoids Iron deficiency anemia, unspecified Migraine without aura has been quiescent since menopause. Other and unspecified hyperlipidemia Type II or unspecified type diabetes mellitus without mention of complication, uncontrolled PAST SURGICAL HISTORY Procedure Laterality Date ARTHRP KNE CONDYLE&PLATU MEDIAL&LAT COMPARTMENTS 07/23/2007 Knee replacement, total right CARPAL TUNNEL 05/2014 left COLONOSCOPY FLX DX W/COLLJ SPEC WHEN PFRMD 04/14/2005 Colonoscopy COLONOSCOPY FLX DX W/COLLJ SPEC WHEN PFRMD 01/21/2016 Colonoscopy COLONOSCOPY GEN ANES 07/31/2020 External/internal hemorrhoids EGD 07/31/2020 Mild Gastritis EGD TRANSORAL BIOPSY SINGLE/MULTIPLE 06/25/2007 LAPAROSCOPIC CHOLECYSTECTOMY 01/08/2018 PAST SURGICAL HISTORY OF 1967 right breast cyst benign PAST SURGICAL HISTORY OF 2010 Rt carpal tunnel PAST SURGICAL HISTORY OF 12/2016 cataract surgery right eye TONSILLECTOMY PRIMARY/SECONDARY <AGE 12 Tonsillectomy Social History Tobacco Use Smoking status: Never Smoker Smokeless tobacco: Never Used Vaping Use Vaping Use: Never used Substance Use Topics Alcohol use: No Drug use: No ACTIVE PROBLEM LIST Esophageal Reflux Paroxysmal Atrial Fibrillation (Hcc) Anxiety State Osteoarthritis Dermatophytosis of Nail Type 2 Diabetes Mellitus With Diabetic Polyneuropathy, Without Long-Term Current Use of Insulin (Hcc) Osteopenia Thoracic Or Lumbosacral Neuritis Or Radiculitis, Unspecified Abnormality of Gait Statin Myopathy Pvd (Peripheral Vascular Disease) (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 2 Diabetes Mellitus With Stage 3b Chronic Kidney Disease, Without Long-Term Current Use of Insulin (Hcc) Hyperparathyroidism Due to Vitamin D Deficiency (Hcc) Secondary Hypertension Due to Renal Disease Hypothyroidism Cardiomyopathy, Nonischemic (Hcc) Dayana (Obstructive Sleep Apnea) Type 2 Diabetes Mellitus With Diabetic Peripheral Angiopathy Without Gangrene, Without Long-Term Current Use of Insulin (Hcc) Anemia Due to Stage 3a Chronic Kidney Disease (Hcc) Iron Deficiency Anemia Anemia Due to Stage 3b Chronic Kidney Disease (Hcc) Anemia Due to Blood Loss Current Outpatient Medications Medication Sig Dispense Refill doxycycline (VIBRA-TABS) 100 mg tablet Take 1 tablet by mouth twice daily for 7 days. 14 tablet 0 predniSONE (DELTASONE) 10 mg tablet Take 3 tablets by mouth once daily for 5 days. 15 tablet 0 trimethoprim-polymyxin (POLYTRIM) 10,000 unit- 1 mg/mL ophthalmic solution Use 1 Drop in both eyes four times daily for 7 days. 1.4 mL 0 gabapentin (NEURONTIN) 300 mg capsule Take 1 capsule by mouth three times daily for 90 days. 90 capsule 2 pioglitazone (ACTOS) 30 mg tablet Take 1 tablet by mouth once daily. 90 tablet 1 lansoprazole (PREVACID) 30 mg capsule TAKE 1 CAPSULE EVERY MORNING BEFORE EATING 90 capsule 1 cholecalciferol, Vitamin D3, (VITAMIN D3) 1,250 mcg (50,000 unit) cap capsule Take 1 capsule by mouth one time a week. 12 capsule 3 carvedilol (COREG) 25 mg tablet Take 1 tablet by mouth twice daily. 360 tablet 0 levothyroxine (SYNTHROID) 137 mcg tablet Take 1 tablet by mouth once daily. Take on empty stomach. For thyroid. 30 tablet 5 blood sugar diagnostic (BLOOD GLUCOSE TEST) test strip Test blood sugar(s) onetimes daily. Dx: Other DM Code E11.49 Insulin: Yes 50 Strip 11 glimepiride (AMARYL) 2 mg tablet Take 1 tablet by mouth daily with breakfast. (Patient not taking: Reported on 12/21/2021 ) 30 tablet 0 glimepiride (AMARYL) 2 mg tablet Take 1 tablet by mouth daily with breakfast. 90 tablet 3 Syringe with Needle, Disp, (BD LUER-TALON SYRINGE) 3 mL 25 gauge x 1 USE SYRINGE TO INJECT B12 ONCE A MONTH 12 Each 0 amiodarone (PACERONE) 200 mg tablet Take 1 tablet by mouth once daily. 90 tablet 3 allopurinol (ZYLOPRIM) 100 mg tablet Take 2 tablets by mouth once daily. 180 tablet 3 furosemide (LASIX) 20 mg tablet Take 1 tablet by mouth once daily. (Patient taking differently: Take 20 mg by mouth once daily. Taking 20mg for 2 days and skipping a dose per [employer]. ) 90 tablet 3 dulaglutide (TRULICITY) 1.5 mg/0.5 mL pen injector Inject 1.5 mg subcutaneously one time a week. Inject once per week. Discard Pen After 6 mL 3 folic acid 1 mg tablet Take 1 tablet by mouth once daily. 90 tablet 3 iron polysaccharide complex (IFEREX 150) 150 mg iron capsule Take 1 capsule by mouth twice daily. 180 capsule 3 glimepiride (AMARYL) 4 mg tablet Take 0.5 tablets by mouth once daily. (Patient not taking: Reported on 09/01/2021 ) 45 tablet 3 colestipol (COLESTID) 1 gram tablet Take 1 tablet by mouth twice daily with meals. 180 tablet 3 cyanocobalamin 1,000 mcg/mL INJECT 1 MILLILITER INTRAMUSCULARLY ONCE A MONTH 1 mL 12 acetaminophen (TYLENOL) 500 mg tablet Take 1,000 mg by mouth every 8 hours as needed. Insulin [place], Disposable, (BD ULTRA-FINE HORTENCIA PEN NEEDLE) 32 gauge x ndle Use one needle for each dose. 3x/day. E11.65 E11.49 200 Each 11 clotrimazole (LOTRIMIN, CLOTRIM) 1 % cream Apply 1 application to affected area twice daily. 30 g 1 triamcinolone acetonide (KENALOG) 0.1 % cream apply to affected area twice a day 15 g 1 blood sugar diagnostic (EASYMAX N) test strip Frequency of testin times daily DX E11.49 InsulinYES 150 Each 11 Lancets lancets Test glucose 2x/daily, 250.02, insulin use: yes 100 Each 11 psyllium Husk (FIBER-CAPS) 0.52 g ORAL capsule Take 2 capsules by mouth once daily. 0 multivitamins w-iron(FLINTSTONES PLUS IRON CHEWABLE TAB) Take one(1) tablet daily with meal. 0 Current Facility-Administered Medications Medication Dose Route Frequency Provider Last Rate Last Admin cyanocobalamin 1,000 mcg injection 1,000 mcg INTRAMUSCULAR q 4 WEEKS Stefan Moore MD 1,000 mcg at 12/02/21 1331 SHINGRIX VACCINE(3 of 3) due on 05/09/2020 ADVANCE DIRECTIVE DISCUSSION Never done DILATED RETINAL EXAM due on 08/04/2021 COVID-19 VACCINE(4 - Booster for Moderna series) due on 09/09/2021 LDL CHOLESTEROL due on 12/01/2021 EXAM: BP 136/64 Pulse 84 Temp 36.2 C (97.2 F) (Tympanic) Resp 20 SpO2 97% Pleasant overweight adult woman in no acute distress. Alert and oriented all spheres. Normal affectand cognition. Speech normal. No deficits to learning or comprehension. Skin warm, dry, pink to lips and nailbeds. Normal turgor. Respirations regular and unlabored. No retractions, harsh cough noted bronchial quality. No sputum. Head NCAT, EOMI, PERRLA. No scleral icterus or conjunctival injection. Nose is patent, no active exudate, mild erythema to turbinates. Oropharynx free from injection or lesion, moist oral membranes. TMs and ear canals are obstructed by mild cerumen but patient has no complaints and does not wish to have removal. Neck is supple, mild restricted range of motion. Carotids are 2 out of 4 plus without bruits. Thyroid exam is nontender, no masses. Chest clear to auscultation percussion, no wheezes or crackles. Has good air exchange to bases, no tactile fremitus. Extrem: no clubbing or cyanosis. Edema: 1/4+ ankles . Extremities are warm and pink with prompt capillary refill. ASSESSMENT/PLAN: 1. Iron deficiency anemia, unspecified iron deficiency anemia type - ICD9: 280.9, ICD10: D50.9 (primary diagnosis) Compliant with medications. 2. Secondary hypertension due to renal disease - ICD9: 405.99, ICD10: I15.1 Controlled. Continue medications. Aerobic exercisie to tolerance. 3. Cardiomyopathy, nonischemic (HCC) - ICD9: 425.4, ICD10: I42.8 4. Paroxysmal atrial fibrillation (HCC) - ICD9: 427.31, ICD10: I48.0 Stable, follows with [facility] Discussed lasix prn orders: see d/c instructions. To review with caridology.. 5. 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 PVD (peripheral vascular disease) ([facility]) - ICD9: 443.9, ICD10: I73.9 No current sx 7. DAYANA (obstructive sleep apnea) - ICD9: 327.23, ICD10: G47.33 compliant with CPAP 8. Hyperparathyroidism due to vitamin D deficiency (HCC) - ICD9: 252.02, ICD10: E21.1 resolved 9. Type 2 diabetes mellitus 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 neuropathy, unspecified whether usp insulin use (HCC) - ICD9: 250.60, 357.2, ICD10: E11.40 Controlled. - Continue current medications - Ophthalmology referral for eval/management of diabetic eye changes: has appt - Encouraged regular aerobic exercise and weight loss 10. Type 2 diabetes mellitus with stage 3b chronic kidney disease, without long- term current use ofinsulin (HCC) - ICD9: 250.40, 585.3, ICD10: E11.22, N18.32 Controlled. 11. Other specified hypothyroidism - ICD9: 244.8, ICD10: E03.8 - Instructed patient on importance of taking on an empty stomach either first thing in the morning or at bedtime. - Continue current dose levothyroxine 12. Stress reaction - ICD9: 308.9, ICD10: F43.0 13. Anxiety state - ICD9: 300.00, ICD10: F41.1 Stable off medicaitons 14. B12 deficiency - ICD9: 266.2, ICD10: E53.8 15. Anemia due to stage 3b chronic kidney disease (HCC) - ICD9: 285.21, 585.3, ICD10: N18.32, D63.1 Needs follow up but seeing Dr. Moore in 1 month. 16. Bronchitis - ICD9: 490, ICD10: J40 Possible bronchial pneumonia. Improving with antibiotics and steroids. Notify if any worsening. Mason King PA-C documented [facility]Reg[facility]22 Miscellaneous Notes* Telephone Encounter - Monika Colby LPN - 12/21/2021 12:09 PM EDT Phone call placed patient advised (see prior provider encounter) Patient verbalized understanding, agreed with plan of care. Monika Colby LPN * Telephone Encounter - Dao Vieyra APRN.CNP - 12/21/2021 12:01 PM EDT No significant abnormal findings noted on lab work. Continue supportive therapy as discussed. Follow-up with PCP as scheduled. Dao Vieyra APRN.CNP documented in this encounterRegional [facility] Center07-14-2022 Miscellaneous Notes* Telephone Encounter - Stefan Moore MD - 12/16/2021 1:40 PM EDT Agree. Had covid recently. Can come in to be seen by us or urgent care if worsens or does not improve. * Telephone Encounter - Patricia Salazar RN - 12/16/2021 1:25 PM EDT Protocol Recommends Home Care. Patient states she will call if worsens. Reason for Disposition Cough Answer Assessment - Initial Assessment Questions Patient calling to get advise on current symptoms. Patient reports on 12/14/21 she started to experience a dry cough and runny nose. Her temp was 99.8 that evening but has been normal since. Patient reports she forgot she has Tessalon Perles cough medicine and will take some of that to help her cough. 1. ONSET: 12/14/21Monday 2. SEVERITY: coughing mainly during day-moderate 3. SPUTUM:none 4. HEMOPTYSIS: No 5. DIFFICULTY BREATHING: No 6. FEVER: No 7. CARDIAC HISTORY: yes, a-fib 8. LUNG HISTORY: no 9. PE RISK FACTORS:no 10. OTHER SYMPTOMS: Denies SOB, wheezing or chest pain 12. TRAVEL:no Protocols used: COUGH - ACUTE [id number] documented in this encounterRegional [facility] Center07-14-2022 Miscellaneous Notes* Telephone Encounter - Flavia Tran - 12/16/2021 10:10 AM EDT Patient has been identified by name and date of : Yes Pending Prescriptions Disp Refills GABAPENTIN 300 MG CAPSULE 90 capsule 2 Sig: Take 1 capsule by mouth three times daily for 90 days. KP: No RX INSTRUCTIONS: Patient aware RX will be sent to pharmacy. Patient asking for a return call when the prescription has been sent to pharmacy. Flavia Tran documented in this encounterRegional [facility] Center07-07-2022 Miscellaneous Notes* Telephone Encounter - Darling Guo RN - 12/09/2021 12:49 PM EDT Patient has been identified by name and date of : Yes Pharmacy phones for refill(s): Pending Prescriptions Disp Refills PIOGLITAZONE 30 MG TABLET 90 tablet 1 Sig: Take 1 tablet by mouth once daily. KP: No LANSOPRAZOLE 30 MG CAPSULE,DELAYED RELEASE 90 capsule 1 Sig: TAKE 1 CAPSULE EVERY MORNING BEFORE EATING KP: No Date of last office visit in primary care: 10/29/21 Future visit: 01/31/22 Last 2 Encounter Wt Readings: Date: Wt: 10/04/2021 103.9 kg (229 lb) 08/02/2021 100.7 kg (222 lb) Previous labs/tests for medication: Blood Pressure: BUN (mg/dL) Date Value 10/01/2021 40 04/02/2021 33 Sodium (mmol/L) Date Value 10/01/2021 139 04/02/2021 140 Last 1 Encounter BP Readings: Date: BP: 10/04/2021 164/72 Liver Function: ALT (U/L) Date Value 12/01/2020 7 AST (U/L) Date Value 12/01/2020 13 Please advise. Thank you. Darling Guo RN documented in this encounterRegional Medical Center07-01-2022 History of Present illness Narrative* Dali Sepulveda - 12/03/2021 3:01 PM EDT Last saw Dr. Moore: 10/29/21 Subjective: Patient presents to clinic c/o painful toenails. They state that the nails are especially painful with shoe gear and pressure. Patient states that nails b/l hallux are painful. Patient admits to being diabetic. She is concerned of a crack between her right 4th and 5th toes. No other pedal complaints at this time. Patient states no change in medications or medical history since last visit. Objective: Patient presents to clinic ambulating in diabetic shoes Vasc: DP and PT pulses are palpable bilateral. CFT is less than 5 seconds bilateral. Skin temperature is warm to cool proximal to distal bilateral. There is mild edema or varicosities noted. Neuro: Protective sensation is absent to the foot and toes when tested with the 5.07 SWM bilateral.Vibratory sensation is absent at the hallux IPJ bilateral. The hallux is downgoing bilateral. Derm: Nails 1-5 b/l are painful, discolored-yellow, thick, crumbly, dystrophic and with subungal debris. Skin is of normal turgor, texture and hair growth is present bilateral. There are no hyperkeratosis, ulcerations, scars, verruca or other lesions noted. No sores noted between toes. Slight dryness between interspace. Ortho: Muscle strength is 5/5 for all pedal groups tested. Ankle joint DF is decreased with the knee extended with no pain or crepitus noted. 1st MPJ ROM is decreased bilateral. Assessment: (B35.1) Onychomycosis (primary encounter diagnosis) (M79.674) Pain in toe of right foot (M79.675) Pain in toe of left foot (E11.42) Diabetic polyneuropathy associated with type 2 diabetes mellitus (HCC) (M20.41, M20.42) Hammer toes of both feet Plan: Patient was seen and evaluated. Nails 1-5 bilateral were debrided in length and thickness. Patient was instructed on the continued importance of diabetic foot care along with proper diet andkeeping their blood sugar under control to prevent complications. No sores between toes. Slight dryness. She can apply lotion to feet but only sparingly, so not as to cause too much moisture. Discussed placing lambs wool between toes to prevent rubbing If she experiences any issues, she is to contact the office. Patient is to RTC in 3-4 months. Dali Sepulveda DPM * Carly Landrum RN - 12/03/2021 2:44 PM EDT AMB ROOMING INTAKE FLOWSHEET DATA Risk Screening Do you have concerns about personal safety or safety in the home?: No Patient presents with: Left Foot - Established Patient, Diabetic Foot Care Right Foot - Established Patient, Diabetic Foot Care documented in this encounterRegional [facility] Center07-01-2022 Instructions* Patient Instructions* Dali Sepulveda - 12/03/2021 3:01 PM EDT Diabetes Foot Care Instructions When you have diabetes, proper foot care is very important. Poor foot care may lead to amputation of a foot or leg. As a person with diabetes, you are more vulnerable to foot problems, because diabetes can damage your nerves and reduce blood flow to your feet. Here are some diabetes foot care tips to follow: Wash and Dry Your Feet Daily Use mild soaps Use warm water Pat your skin dry; do not rub. Thoroughly dry your feet. After washing, use lotion on your feet to prevent cracking. Do not put lotion between your toes. Examine Your Feet Each Day Check the tops and bottoms of your feet. Have someone else look at your feet if you cannot see them. Check for dry, cracked skin. Look for blisters, cuts, scratches, or other sores. Check for redness, increased warmth, or tenderness when touching any area of your feet. Check for ingrown toenails, corns, and calluses. If you get a blister or sore from your shoes, do not pop it. Apply a bandage and wear a differentpair of shoes. Take Care of Your Toenails Cut toenails after bathing, when they are soft. Cut toenails straight across and smooth with a nail file. Avoid cutting into the corners of toes. Do not cut cuticles. If you have neuropathy (or decreased sensation in your feet) a machine sign writer should always cut your toenails. Be Careful When Exercising Walk and exercise in comfortable shoes. Do not exercise when you have open sores on your feet. Protect Your Feet With Shoes and Socks Never go barefoot. Always protect your feet by wearing shoes or hard-soled slippers or footwear. Avoid shoes with high heels and pointed toes. Avoid shoes that expose your toes or heels (such as open-toed shoes or sandals). These types of shoes increase your risk for injury and potential infections. Try on new footwear with the type of socks you usually wear. Do not wear new shoes for more than an hour at a time. Change your socks daily. Look and feel inside your shoes before putting them on to make sure there are no foreign objects orrough areas. Avoid tight socks. Wear natural-fiber socks (cotton, wool, or a cotton-wool blend). Wear special shoes if your health care provider recommends them. Wear shoes/boots that will protect your feet from various weather conditions (cold, moisture, etc.). Make sure your shoes fit properly. If you have neuropathy (nerve damage), you may not notice that your shoes are too tight. Perform the footwear test described below. Footwear Test Use this simple test to see if your shoes fit correctly: Stand on a piece of paper. (Make sure you are standing and not sitting, because your foot changes shape when you stand.) Trace the outline of your foot. Trace the outline of your shoe. Compare the tracings: Is the shoe too narrow? Is your foot crammed into the shoe? The shoe should be at least 1/2 inch longer than your longest toe and as wide as your foot. Proper Shoe Choices The following types of shoes are best for people with diabetes Closed toes and heels Leather uppers without a seam inside At least 1/2 inch extra space at the end of your longest toe Inside of shoe should be soft with no rough areas Outer sole should be made of stiff material Shoes should be at least as wide as your feet Tips for Foot Care in Diabetes Don't wait to treat a minor foot problem if you have diabetes. Follow your health care provider's guidelines and first aid guidelines. Report foot injuries and infections to your health care provider immediately. Check water temperature with your elbow, not your foot. Do not use a heating pad on your feet. Do not cross your legs. Do not self-treat your corns, calluses, or other foot problems. Go to your health care provider or machine sign writer to treat these conditions. documented in this encounterRegional Medical Center06-30-2022 History of Present illness Narrative* Erica Stanislav GUPTA - 12/02/2021 1:31 PM EDT Patient presents for B-12 injection. Denies any problems at this time. Patient instructed on any SEof medication, verbalized understanding and agreed to proceed with treatment. Tolerated injection well. Erica [place] LPN documented in this encounterRegional Medical Center06-03-2022 History of Present illness Narrative* Erica [place] LPN - 11/05/2021 10:03 AM EDT Patient presents for B-12 injection. Denies any problems at this time. Patient instructed on any SEof medication, verbalized understanding and agreed to proceed with treatment. Tolerated injection well. Erica [place] LPN documented in this encounterRegional Medical Center05-27-2022 History of Present illness Narrative* Stefan Moore MD - 10/29/2021 11:43 AM EDT Patient presents with: Covid19 Concern HPI:This Team Access Model visit is a phone encounter. It required patient- provider interaction forthe medical decision making as documented below. Patient was offered a virtual/telemedicine appointment in lieu of an office visit due to recommendations to reduce patient exposure to COVID-19. Patient is aware of limitations of performing the visit without a face to face visit in the office setting and agrees. On day 5 of symptoms. Did home test which was positive. No fever or chills currently but did have it initially. She is coughing and congestion. Some shortness of breath. Has a pulse ox No nausea or vomiting or diarrhea. No issues with taste or smell. Fatigue. Discussed treatment. Declines monoclonal antibodies. Would avoid paxlovid given her meds, renal function and fact we are already on day 5. MEDICATIONS: Current Outpatient Medications Medication Sig carvedilol (COREG) 25 mg tablet Take 1 tablet by mouth twice daily. levothyroxine (SYNTHROID) 137 mcg tablet Take 1 tablet by mouth once daily. Take on empty stomach. For thyroid. blood sugar diagnostic (BLOOD GLUCOSE TEST) test strip Test blood sugar(s) onetimes daily. Dx: Other DM Code E11.49 Insulin: Yes glimepiride (AMARYL) 2 mg tablet Take 1 tablet by mouth daily with breakfast. (Patient not taking: Reported on 09/01/2021 ) glimepiride (AMARYL) 2 mg tablet Take 1 tablet by mouth daily with breakfast. gabapentin (NEURONTIN) 300 mg capsule Take 1 capsule by mouth three times daily for 90 days. pioglitazone (ACTOS) 30 mg tablet Take 1 tablet by mouth once daily. Syringe with Needle, Disp, (BD LUER-TALON SYRINGE) 3 mL 25 gauge x 1 USE SYRINGE TO INJECT B12 ONCE A MONTH lansoprazole (PREVACID) 30 mg capsule TAKE 1 CAPSULE EVERY MORNING BEFORE EATING amiodarone (PACERONE) 200 mg tablet Take 1 tablet by mouth once daily. allopurinol (ZYLOPRIM) 100 mg tablet Take 2 tablets by mouth once daily. furosemide (LASIX) 20 mg tablet Take 1 tablet by mouth once daily. (Patient taking differently: Take 20 mg by mouth once daily. Taking 20mg for 2 days and skipping a dose per vp celebrity services. ) dulaglutide (TRULICITY) 1.5 mg/0.5 mL pen injector Inject 1.5 mg subcutaneously one time a week. Inject once per week. Discard Pen After folic acid 1 mg tablet Take 1 tablet by mouth once daily. iron polysaccharide complex (IFEREX 150) 150 mg iron capsule Take 1 capsule by mouth twice daily. glimepiride (AMARYL) 4 mg tablet Take 0.5 tablets by mouth once daily. (Patient not taking: Reported on 09/01/2021 ) colestipol (COLESTID) 1 gram tablet Take 1 tablet by mouth twice daily with meals. cholecalciferol, Vitamin D3, (VITAMIN D3) 1,250 mcg (50,000 unit) cap capsule Take 1 capsule by mouth one time a week. cyanocobalamin 1,000 mcg/mL INJECT 1 MILLILITER INTRAMUSCULARLY ONCE A MONTH acetaminophen (TYLENOL) 500 mg tablet Take 1,000 mg by mouth every 8 hours as needed. Insulin [place], Disposable, (BD ULTRA-FINE HORTENCIA PEN NEEDLE) 32 gauge x ndle Use one needle for each dose. 3x/day. E11.65 E11.49 clotrimazole (LOTRIMIN, CLOTRIM) 1 % cream Apply 1 application to affected area twice daily. triamcinolone acetonide (KENALOG) 0.1 % cream apply to affected area twice a day blood sugar diagnostic (EASYMAX N) test strip Frequency of testin times daily DX E11.49 InsulinYES Lancets lancets Test glucose 2x/daily, 250.02, insulin use: yes psyllium Husk (FIBER-CAPS) 0.52 g ORAL capsule Take 2 capsules by mouth once daily. multivitamins w-iron(FLINTSTONES PLUS IRON CHEWABLE TAB) Take one(1) tablet daily with meal. Current Facility-Administered Medications Medication Dose Route Frequency cyanocobalamin 1,000 mcg injection 1,000 mcg INTRAMUSCULAR q 4 WEEKS ALLERGIES: ALLERGIES Allergen Reactions Iodine Rash, Unknown, Hives Metformin Other: See Comments Elevated renal function Simvastatin Contraindication-Medical Surgical statin myopathy Kcghsed-Myz-Rli Red* Other: See Comments myopathy Vytorin 10-10 [Ezet* Contraindication-Medical Surgical myopathy PAST MEDICAL HISTORY Diagnosis Date Acute gastritis without mention of hemorrhage Anemia, unspecified Anxiety state, unspecified Atrial fibrillation (HCC) B12 deficiency Diverticulosis of colon (without mention of hemorrhage) Esophageal reflux Gastritis Generalized osteoarthrosis, unspecified site Gout Hemorrhage of gastrointestinal tract, unspecified Hemorrhoids Iron deficiency anemia, unspecified Migraine without aura has been quiescent since menopause. Other and unspecified hyperlipidemia Type II or unspecified type diabetes mellitus without mention of complication, uncontrolled PAST SURGICAL HISTORY Procedure Laterality Date ARTHRP KNE CONDYLE&PLATU MEDIAL&LAT COMPARTMENTS 07/23/2007 Knee replacement, total right CARPAL TUNNEL 05/2014 left COLONOSCOPY FLX DX W/COLLJ SPEC WHEN PFRMD 04/14/2005 Colonoscopy COLONOSCOPY FLX DX W/COLLJ SPEC WHEN PFRMD 01/21/2016 Colonoscopy COLONOSCOPY GEN ANES 07/31/2020 External/internal hemorrhoids EGD 07/31/2020 Mild Gastritis EGD TRANSORAL BIOPSY SINGLE/MULTIPLE 06/25/2007 LAPAROSCOPIC CHOLECYSTECTOMY 01/08/2018 PAST SURGICAL HISTORY OF 1967 right breast cyst benign PAST SURGICAL HISTORY OF 2010 Rt carpal tunnel PAST SURGICAL HISTORY OF 12/2016 cataract surgery right eye TONSILLECTOMY PRIMARY/SECONDARY <AGE 12 Tonsillectomy FAMILY HISTORY Problem Relation Age of Onset Heart Mother Heart Father Pneumonia Sister No Known Problems Sister Heart Brother Cancer Maternal Grandfather Cancer Paternal Grandfather Colon Cancer No Family History Social History Tobacco Use Smoking status: Never Smoker Smokeless tobacco: Never Used Vaping Use Vaping Use: Never used Substance Use Topics Alcohol use: No Drug use: No Reviewed current medications, allergies, past medical history, surgical history, family history andsocial history today. REVIEW OF SYSTEMS All other reviewed and negative other than HPI. VITALS: There were no vitals taken for this visit. Last 4 Encounter Wt Readings: Date: Wt: 10/04/2021 103.9 kg (229 lb) 08/02/2021 100.7 kg (222 lb) 04/20/2021 101.7 kg (224 lb 1.9 oz) 04/02/2021 103 kg (227 lb) PHYSICAL EXAMINATION: Patient is alert and oriented during visit. Answers appropriately. Breathing comfortably ASSESSMENT/PLAN: 1. COVID-19 - ICD9: 079.89, ICD10: U07.1 - Red flags for re-assessment reviewed with patient in detail. - emani corbett. Call with update on Monday Stefan Moore I spent 10 minutes in the visit, with more than 50% of the total [id number] time of the visit in counseling / coordination of care. [facility] Miscellaneous Notes* Telephone Encounter - Chelsea Cartwright LPN - 10/28/2021 5:08 PM EDT Scheduled. * Telephone Encounter - Stefan Moore MD - 10/28/2021 4:26 PM EDT Would need to do virtual visit with one of to discuss. Set up virtual visit. * Telephone Encounter - Lupe Vyas LPN - 10/28/2021 4:16 PM EDT Patient calling did home COVID test this afternoon and is positive. Her symptoms began Monday with a fever, coughing, nose running. She has taken Coricidin. Patient lives with great niece. Patient asking about oral antivirals if she can take them? Patient uses [facility] for her pharmacy. Please advise documented [facility]05-24-2022 Miscellaneous Notes* Telephone Encounter - ÓSCAR Stark - 10/26/2021 10:03 AM EDT SOCIAL WORK FOLLOW UP NOTE: [facility] Date of service: October 26, 2021 Coni Romero is being seen for a follow up social work visit. Today's visit includes: patient TOPICS ADDRESSED: Patient wanted information on where she could donate prayer shawls. SW provided patient with information and patient denies other needs. PLAN: Continue follow up as needed F/U APPOINTMENT: PRN Assigned SW listed in Care Team tab: Yes, No ÓSCAR Stark documented in this [facility]Reg[facility]05-19-2022 Miscellaneous Notes* Telephone Encounter - Xochilt Watson Pss - 10/21/2021 12:58 PM EDT Patient called to speak with Flor regarding a shawl that she brought in last week. Please call when able. documented in this [facility]Reg[facility]05-07-2022 Miscellaneous Notes* Telephone Encounter - Yusuf You LPN - 10/09/2021 9:24 AM EDT Patient phones requesting refills as follows: Pending Prescriptions Disp Refills CARVEDILOL 25 MG TABLET 360 tablet 0 Sig: Take 1 tablet by mouth twice daily. KP: No RUSSEL 08/02/21 NOV 01/31/22 Please review and advise. Yusuf You LPN documented in this [facility]05-02-2022 Instructions* Patient Instructions* Yadira Chaudhry MD - 10/04/2021 4:33 PM EDT Stay on iron twice daily and vitamin B12 injection documented in this encounterReg[facility]05-02-2022 History of Present illness Narrative* Yadira Chaudhry MD - 10/04/2021 4:27 PM EDT PATIENT NAME: Coni Romero. CLINIC NO: [id number]. ATTENDING PHYSICIAN: Yadira Chaudhry MD. DATE OF SERVICE: 10/04/2021 DIAGNOSIS: Anemia of chronic disease secondary to stage 3b chronic renal failure HPI: 80-year-old female with history of type 2 diabetes mellitus, chronic renal failure stage 3b, congestive heart failure and diabetic neuropathy, hypothyroidism who presented with worsening anemia since May 2020. She had a rather exhaustive work-up for her anemia and she was admitted to [facility] in July. She underwent both an upper and lower endoscopy which did not reveal any obvious bleeding source. She subsequently was sent to [place] where she had a capsule endoscopy which was also negative. She started iron supplement once daily since August. She had a blood transfusion in July,and again last month for severe anemia. Subsequent labs to reviewed iron deficiency and she received iron sucrose in addition to blood transfusion for anemia. Interim history: She has chronic fatigue. She denies any GI bleeding, changes in bowel habits, or melena. She has chronic shortness of breath with exertion. Her lower extremity edema has improved. All medications & allergies updated and reviewed by me REVIEW OF SYSTEMS: CONSTITUTIONAL: No fevers, chills, nightsweats, or weight loss. HEENT: Denies frequent or severe heaches, nasal congestion/sinus symptoms, problematic allergy problems. EYES: No diplopia or blurry vision. CARDIOVASCULAR: No chest pain, dyspnea, no palpitations, orthopnea, PND, +ankle edema. PULM: No dyspnea, unexplained cough. GI: No dysphagia/odynophagia, problematic reflux, constipation, diarrhea, changes in stool habits, hematochezia, melena. : No new urinary complaints, including dysuria, gross hematuria or pyuria. NEURO: No new balance problems, peripheral weakness/paresthesias or numbness of concern. MUSC-SKEL: No new joint pain, swelling, or erythema. PSY: No concerns regarding depression, anxiety or panic. INTEGUMENTARY: No new skin changes (rash, new or changing mole, new growth) PHYSICAL EXAMINATION: 80-year-old moderately obese female in no acute distress BP 164/72 Pulse 76 Temp 98.5 Wt 229 lb (103.9kg) SpO2 97% HEENT: Head is normocephalic, atraumatic. Sclerae white, conjunctivae pink. PEERL. EOMs are intact.Oropharynx is benign. +pallor LYMPHATICS: There is no palpable adenopathy in the neck, supraclavicular region, axillae, or groin. LUNGS: Diminished breath sound with bibasilar rales HEART: Heart is irregular, soft grade 1 systolic murmurs, + S4 gallops, no rubs. ABDOMEN: Soft and nontender without organomegaly. No masses can be palpated. EXTREMITIES: Are trace edema. NEUROLOGIC: Exam is physiologic; sensory neuropathy glove and stocking distribution worsening lowerextrmity. LABS: Component Latest Ref Rng & Units 10/01/2021 WBC 3.70 - 11.00 k/uL 4.81 RBC 3.90 - 5.20 m/uL 3.50 (L) Hemoglobin 11.5 - 15.5 g/dL 10.5 (L) Hematocrit 36.0 - 46.0 % 33.4 (L) MCV 80.0 - 100.0 fL 95.4 MCH 26.0 - 34.0 pg 30.0 MCHC 30.5 - 36.0 g/dL 31.4 RDW-CV 11.5 - 15.0 % 16.1 (H) Platelet Count 150 - 400 k/uL 175 MPV 9.0 - 12.7 fL 10.2 Neut% % 69.7 Abs Neut (ANC) 1.45 - 7.50 k/uL 3.35 Lymph% % 18.9 Abs Lymph 1.00 - 4.00 k/uL 0.91 (L) Door% % 6.9 Abs Door <0.87 k/uL 0.33 Eosin% % 3.5 Abs Eosin <0.46 k/uL 0.17 Baso% % 0.8 Abs Baso <0.11 k/uL 0.04 Immature Gran % % 0.2 IMMATURE GRANS (ABS) <0.10 k/uL <0.03 NRBC /100 WBC 0.0 Absolute nRBC <0.01 k/uL <0.01 DTYPE Auto Component Latest Ref Rng & Units 10/01/2021 Glucose 74 - 99 mg/dL 86 BUN 7 - 21 mg/dL 40 (H) Creatinine 0.58 - 0.96 mg/dL 1.70 (H) Sodium 136 - 144 mmol/L 139 Potassium 3.7 - 5.1 mmol/L 4.3 Chloride 97 - 105 mmol/L 102 CO2 22 - 30 mmol/L 29 Anion Gap 9 - 18 mmol/L 8 (L) Calcium 8.5 - 10.2 mg/dL 8.8 eGFR >=60 mL/min/1.73m 30 (L) Iron 41 - 186 ug/dL 56 TIBC 232 - 386 ug/dL 316 Transferrin Saturation 15 - 57 % 18 Ferritin 14.7 - 205.1 ng/mL 257.0 (H) ASSESSMENT: 80-year-old female with anemia of chronic disease secondary to chronic renal failure, stage 3b (GFR 30) -Iron study is normal -No active GI bleeding after rivaroxaban was discontinued. PLAN: -Continue iron supplement twice daily & folic acid 1 mg once daily. -Monitor CBC and iron study every 3 months x 2 -Repeat CBC, BMP and office visit in 6-months to discuss erythropoietin treatment for anemia of chronic disease if hemoglobin is less than 10 gm/dL. -Follow-up with PCP and nephrology. Portions of this documentation were copied and pasted from previous office visit notes in order to provide a cohesive continuity of the history. The note has been reviewed and edited and updated as necessary. Yadira Chaudhry MD Cc: Dr. Stefan Moore documented in this encounterReg[facility]05-02-2022 Miscellaneous Notes* Telephone Encounter - Suad Cheung - 10/04/2021 8:28 AM EDT RX INSTRUCTIONS: Patient aware RX will be sent to pharmacy. No need to notify patient. Last OV: 08/02/2021 Last refill: 04/05/2021 With 30 and 5 refills Last oarrs report completed: N/A PLEASE REVIEW ON EPIC Follow up: 01/31/22 6 m F/U with PCP Smita Oglesby MA. * Telephone Encounter - Sheree Johnson Pss - 10/02/2021 8:24 AM EDT Patient has been identified by name and date of : Yes Last office visit in this department: 08/02/2021 RX INSTRUCTIONS: Patient aware RX will be sent to pharmacy. No need to notify patient. Patient phones requesting refills as follows: Pending Prescriptions Disp Refills LEVOTHYROXINE 137 MCG TABLET 30 tablet 5 Sig: Take 1 tablet by mouth once daily. Take on empty stomach. For thyroid. KP: No Please review and advise. Sheree Johnson Pss documented in this encounterReg[facility]04-29-2022 History of Present illness Narrative* Erica Colorado LPN - 10/01/2021 9:59 AM EDT Patient presents for B-12 injection. Denies any problems at this time. Patient instructed on any SEof medication, verbalized understanding and agreed to proceed with treatment. Tolerated injection well. Erica Colorado LPN documented in this encounterReg[facility] Center03-30-2022 History of Present illness Narrative* Dali Sepulveda - 09/01/2021 9:53 AM EDT Last saw Dr. Moore: 08/02/21 Subjective: Patient presents to clinic c/o painful toenails. They state that the nails are especially painful with shoe gear and pressure. Patient states that nails 1-5 b/l are painful. Patient admits to being diabetic. No other pedal complaints at this time. Patient states no change in medications or medical history since last visit. Objective: Patient presents to clinic ambulating in diabetic shoes Vasc: DP and PT pulses are palpable bilateral. CFT is less than 5 seconds bilateral. Skin temperature is warm to cool proximal to distal bilateral. There is no edema or varicosities noted. Neuro: Protective sensation is intact to the foot and toes when tested with the 5.07 SWM bilateral.Vibratory sensation is decreased at the hallux IPJ bilateral. The hallux is downgoing bilateral. Derm: Nails 1-5 b/l are painful, discolored-yellow, thick, crumbly, dystrophic and with subungal debris. Skin is of normal turgor, texture and hair growth is present bilateral. There are no hyperkeratosis, ulcerations, scars, verruca or other lesions noted. Ortho: Muscle strength is 5/5 for all pedal groups tested. Ankle joint DF is full with the knee extended with no pain or crepitus noted. 1st MPJ ROM is decreased bilateral. Assessment: (B35.1) Onychomycosis (primary encounter diagnosis) (M79.674) Pain in toe of right foot (M79.675) Pain in toe of left foot (E11.42) Diabetic polyneuropathy associated with type 2 diabetes mellitus (HCC) Plan: Patient was seen and evaluated. Nails 1-5 bilateral were debrided in length and thickness. Patient was instructed on the continued importance of diabetic foot care along with proper diet and keeping their blood sugar under control to prevent complications. Patient is to RTC in 3-4 months. Dali Sepulveda DPM * Carly Landrum RN - 09/01/2021 9:40 AM EDT Patient presents with: Left Foot - Established Patient, Nail Care Right Foot - Established Patient, Nail Care documented in this encounterReg[facility] Center03-30-2022 Instructions* Patient Instructions* Dali Sepulveda - 09/01/2021 9:53 AM EDT Diabetes Foot Care Instructions When you have diabetes, proper foot care is very important. Poor foot care may lead to amputation of a foot or leg. As a person with diabetes, you are more vulnerable to foot problems, because diabetes can damage your nerves and reduce blood flow to your feet. Here are some diabetes foot care tips to follow: Wash and Dry Your Feet Daily Use mild soaps Use warm water Pat your skin dry; do not rub. Thoroughly dry your feet. After washing, use lotion on your feet to prevent cracking. Do not put lotion between your toes. Examine Your Feet Each Day Check the tops and bottoms of your feet. Have someone else look at your feet if you cannot see them. Check for dry, cracked skin. Look for blisters, cuts, scratches, or other sores. Check for redness, increased warmth, or tenderness when touching any area of your feet. Check for ingrown toenails, corns, and calluses. If you get a blister or sore from your shoes, do not pop it. Apply a bandage and wear a differentpair of shoes. Take Care of Your Toenails Cut toenails after bathing, when they are soft. Cut toenails straight across and smooth with a nail file. Avoid cutting into the corners of toes. Do not cut cuticles. If you have neuropathy (or decreased sensation in your feet) a machine sign writer should always cut your toenails. Be Careful When Exercising Walk and exercise in comfortable shoes. Do not exercise when you have open sores on your feet. Protect Your Feet With Shoes and Socks Never go barefoot. Always protect your feet by wearing shoes or hard-soled slippers or footwear. Avoid shoes with high heels and pointed toes. Avoid shoes that expose your toes or heels (such as open-toed shoes or sandals). These types of shoes increase your risk for injury and potential infections. Try on new footwear with the type of socks you usually wear. Do not wear new shoes for more than an hour at a time. Change your socks daily. Look and feel inside your shoes before putting them on to make sure there are no foreign objects orrough areas. Avoid tight socks. Wear natural-fiber socks (cotton, wool, or a cotton-wool blend). Wear special shoes if your health care provider recommends them. Wear shoes/boots that will protect your feet from various weather conditions (cold, moisture, etc.). Make sure your shoes fit properly. If you have neuropathy (nerve damage), you may not notice that your shoes are too tight. Perform the footwear test described below. Footwear Test Use this simple test to see if your shoes fit correctly: Stand on a piece of paper. (Make sure you are standing and not sitting, because your foot changes shape when you stand.) Trace the outline of your foot. Trace the outline of your shoe. Compare the tracings: Is the shoe too narrow? Is your foot crammed into the shoe? The shoe should be at least 1/2 inch longer than your longest toe and as wide as your foot. Proper Shoe Choices The following types of shoes are best for people with diabetes Closed toes and heels Leather uppers without a seam inside At least 1/2 inch extra space at the end of your longest toe Inside of shoe should be soft with no rough areas Outer sole should be made of stiff material Shoes should be at least as wide as your feet Tips for Foot Care in Diabetes Don't wait to treat a minor foot problem if you have diabetes. Follow your health care provider's guidelines and first aid guidelines. Report foot injuries and infections to your health care provider immediately. Check water temperature with your elbow, not your foot. Do not use a heating pad on your feet. Do not cross your legs. Do not self-treat your corns, calluses, or other foot problems. Go to your health care provider or machine sign writer to treat these conditions. documented in this encounterReg[facility] Center03-28-2022 History of Present illness Narrative* Erica Colorado LPN - 08/30/2021 9:07 AM EDT Patient presents for B-12 injection. Denies any problems at this time. Patient instructed on any SEof medication, verbalized understanding and agreed to proceed with treatment. Tolerated injection well. Erica Colorado LPN documented in this encounterReg[facility] Center03-24-2022 Miscellaneous Notes* Telephone Encounter - Ebony Boyce - 08/26/2021 11:37 AM EDT Patient has been identified by name and date of : Yes Pending Prescriptions Disp Refills BLOOD GLUCOSE TEST STRIPS 11 Sig: Test blood sugar(s) two times daily. Dx: Other DM Code E11.49 Insulin: Yes KP: No RX INSTRUCTIONS: Per patient, she only tests once daily. Patient aware RX will be sent to pharmacy. No need to notify patient. Ebony Manzano Pss documented in this encounterRegional Medical Center06-16-2021 History of Past illness Narrative* Problem Noted Date Resolved Date Anemia due to stage 3b chronic kidney disease 08/02/2021 Obesity, Class I, BMI 30-34.9 11/10/2017 Type 2 DM with CKD stage 4 and hypertension 12/0403/20/2017 Metabolic acidosis 12/26/2016 03/20/2017 Secondary hyperparathyroidism of renal origin 03/20/2017 Screening for genitourinary condition 12/26/2016 03/20/2017 Anemia of renal disease 12/26/2016 03/20/20 17 Chronic anticoagulation 09/29/2016 08/02/19 22 Colon cancer screening 01/21/2016 6 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 02/18/2015 09/08/2016 CKD (chronic kidney disease) stage 3, GFR 30-59 ml/min 12/16/2013 03/29/2021 Other symptoms involving ner vous and musculoskeletal systems(781.99) 07/16/2013 09/08/2016 Statin myopathy 01/22/2011 12/16/2013 Other physical therapy 07/16/2010 7 Hypertension 06/03/2010 03/20/2017 Cellulitis and abscess of toe, unspecified 05/2309/08/2016 Other benign neoplasm of con nective and other soft tissue of unspecified site 01/21/2008 09/08/2016 Obesity, unspecified 05/14/2007 11/10/2017 Pain in limb 01/11/2007 09/08/2016 Onychia and paronychia of toe 01/10/2007 Pain in joint, lower leg 09/19/2006 017 Iron deficiency anemia, unspecified 06/12/2006 09/08/2016 Need for prophylactic hormon e replacement therapy (postmenopausal) 12/30/2005 09/08/2016 Mixed hyperlipidemia 12/30/2005 03/20/2017 Type II or unspecified type diabetes mellitus without mention of complication, not stated as uncontrolled 12/30/2005 Migraine without aura 09/08/2016 documented as of this encounter (statuses as of 08/30/2021) [facility] Past [facility] Narrative* Problem Noted Date Resolved Date Anemia due to stage 3b chronic kidney disease 08/02/2021 Obesity, Class I, BMI 30-34.9 11/10/2017 Type 2 DM with CKD stage 4 and hypertension 12/0403/20/2017 Metabolic acidosis 12/26/2016 03/20/2017 Secondary hyperparathyroidism of renal origin 03/20/2017 Screening for genitourinary condition 12/26/2016 03/20/2017 Anemia of renal disease 12/26/2016 03/20/20 17 Chronic anticoagulation 09/29/2016 08/02/19 22 Colon cancer screening 01/21/2016 6 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 02/18/2015 09/08/2016 CKD (chronic kidney disease) stage 3, GFR 30-59 ml/min 12/16/2013 03/29/2021 Other symptoms involving ner vous and musculoskeletal systems(781.99) 07/16/2013 09/08/2016 Statin myopathy 01/22/2011 12/16/2013 Other physical therapy 07/16/2010 7 Hypertension 06/03/2010 03/20/2017 Cellulitis and abscess of toe, unspecified 05/2309/08/2016 Other benign neoplasm of con nective and other soft tissue of unspecified site 01/21/2008 09/08/2016 Obesity, unspecified 05/14/2007 11/10/2017 Pain in limb 01/11/2007 09/08/2016 Onychia and paronychia of toe 01/10/2007 Pain in joint, lower leg 09/19/2006 017 Iron deficiency anemia, unspecified 06/12/2006 09/08/2016 Need for prophylactic hormon e replacement therapy (postmenopausal) 12/30/2005 09/08/2016 Mixed hyperlipidemia 12/30/2005 03/20/2017 Type II or unspecified type diabetes mellitus without mention of complication, not stated as uncontrolled 12/30/2005 Migraine without aura 09/08/2016 documented as of this encounter (statuses as of 09/01/2021) [facility] Narrative* Problem Noted Date Resolved Date Anemia due to stage 3b chronic kidney disease 08/02/2021 Obesity, Class I, BMI 30-34.9 11/10/2017 Type 2 DM with CKD stage 4 and hypertension 12/0403/20/2017 Metabolic acidosis 12/26/2016 03/20/2017 Secondary hyperparathyroidism of renal origin 03/20/2017 Screening for genitourinary condition 12/26/2016 03/20/2017 Anemia of renal disease 12/26/2016 03/20/20 17 Chronic anticoagulation 09/29/2016 08/02/19 22 Colon cancer screening 01/21/2016 6 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 02/18/2015 09/08/2016 CKD (chronic kidney disease) stage 3, GFR 30-59 ml/min 12/16/2013 03/29/2021 Other symptoms involving ner vous and musculoskeletal systems(781.99) 07/16/2013 09/08/2016 Statin myopathy 01/22/2011 12/16/2013 Other physical therapy 07/16/2010 7 Hypertension 06/03/2010 03/20/2017 Cellulitis and abscess of toe, unspecified 05/2309/08/2016 Other benign neoplasm of con nective and other soft tissue of unspecified site 01/21/2008 09/08/2016 Obesity, unspecified 05/14/2007 11/10/2017 Pain in limb 01/11/2007 09/08/2016 Onychia and paronychia of toe 01/10/2007 Pain in joint, lower leg 09/19/2006 017 Iron deficiency anemia, unspecified 06/12/2006 09/08/2016 Need for prophylactic hormon e replacement therapy (postmenopausal) 12/30/2005 09/08/2016 Mixed hyperlipidemia 12/30/2005 03/20/2017 Type II or unspecified type diabetes mellitus without mention of complication, not stated as uncontrolled 12/30/2005 Migraine without aura 09/08/2016 documented as of this encounter (statuses as of 09/18/2021) [facility] History of Past illness Narrative* Problem Noted Date Resolved Date Anemia due to stage 3b chronic kidney disease 08/02/2021 Obesity, Class I, BMI 30-34.9 11/10/2017 Type 2 DM with CKD stage 4 and hypertension 12/0403/20/2017 Metabolic acidosis 12/26/2016 03/20/2017 Secondary hyperparathyroidism of renal origin 03/20/2017 Screening for genitourinary condition 12/26/2016 03/20/2017 Anemia of renal disease 12/26/2016 03/20/20 17 Chronic anticoagulation 09/29/2016 08/02/19 22 Colon cancer screening 01/21/2016 6 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 02/18/2015 09/08/2016 CKD (chronic kidney disease) stage 3, GFR 30-59 ml/min 12/16/2013 03/29/2021 Other symptoms involving ner vous and musculoskeletal systems(781.99) 07/16/2013 09/08/2016 Statin myopathy 01/22/2011 12/16/2013 Other physical therapy 07/16/2010 7 Hypertension 06/03/2010 03/20/2017 Cellulitis and abscess of toe, unspecified 05/2309/08/2016 Other benign neoplasm of con nective and other soft tissue of unspecified site 01/21/2008 09/08/2016 Obesity, unspecified 05/14/2007 11/10/2017 Pain in limb 01/11/2007 09/08/2016 Onychia and paronychia of toe 01/10/2007 Pain in joint, lower leg 09/19/2006 017 Iron deficiency anemia, unspecified 06/12/2006 09/08/2016 Need for prophylactic hormon e replacement therapy (postmenopausal) 12/30/2005 09/08/2016 Mixed hyperlipidemia 12/30/2005 03/20/2017 Type II or unspecified type diabetes mellitus without mention of complication, not stated as uncontrolled 12/30/2005 Migraine without aura 09/08/2016 documented as of this encounter (statuses as of 09/24/2021) [facility] History of Past illness Narrative* Problem Noted Date Resolved Date Anemia due to stage 3b chronic kidney disease 08/02/2021 Obesity, Class I, BMI 30-34.9 11/10/2017 Type 2 DM with CKD stage 4 and hypertension 12/0403/20/2017 Metabolic acidosis 12/26/2016 03/20/2017 Secondary hyperparathyroidism of renal origin 03/20/2017 Screening for genitourinary condition 12/26/2016 03/20/2017 Anemia of renal disease 12/26/2016 03/20/20 17 Chronic anticoagulation 09/29/2016 08/02/19 22 Colon cancer screening 01/21/2016 6 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 02/18/2015 09/08/2016 CKD (chronic kidney disease) stage 3, GFR 30-59 ml/min 12/16/2013 03/29/2021 Other symptoms involving ner vous and musculoskeletal systems(781.99) 07/16/2013 09/08/2016 Statin myopathy 01/22/2011 12/16/2013 Other physical therapy 07/16/2010 7 Hypertension 06/03/2010 03/20/2017 Cellulitis and abscess of toe, unspecified 05/2309/08/2016 Other benign neoplasm of con nective and other soft tissue of unspecified site 01/21/2008 09/08/2016 Obesity, unspecified 05/14/2007 11/10/2017 Pain in limb 01/11/2007 09/08/2016 Onychia and paronychia of toe 01/10/2007 Pain in joint, lower leg 09/19/2006 017 Iron deficiency anemia, unspecified 06/12/2006 09/08/2016 Need for prophylactic hormon e replacement therapy (postmenopausal) 12/30/2005 09/08/2016 Mixed hyperlipidemia 12/30/2005 03/20/2017 Type II or unspecified type diabetes mellitus without mention of complication, not stated as uncontrolled 12/30/2005 Migraine without aura 09/08/2016 documented as of this encounter (statuses as of 10/01/2021) [facility] History of Past illness Narrative* Problem Noted Date Resolved Date Anemia due to stage 3b chronic kidney disease 08/02/2021 Obesity, Class I, BMI 30-34.9 11/10/2017 Type 2 DM with CKD stage 4 and hypertension 12/0403/20/2017 Metabolic acidosis 12/26/2016 03/20/2017 Secondary hyperparathyroidism of renal origin 03/20/2017 Screening for genitourinary condition 12/26/2016 03/20/2017 Anemia of renal disease 12/26/2016 03/20/20 17 Chronic anticoagulation 09/29/2016 08/02/19 22 Colon cancer screening 01/21/2016 6 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 02/18/2015 09/08/2016 CKD (chronic kidney disease) stage 3, GFR 30-59 ml/min 12/16/2013 03/29/2021 Other symptoms involving ner vous and musculoskeletal systems(781.99) 07/16/2013 09/08/2016 Statin myopathy 01/22/2011 12/16/2013 Other physical therapy 07/16/2010 7 Hypertension 06/03/2010 03/20/2017 Cellulitis and abscess of toe, unspecified 05/2309/08/2016 Other benign neoplasm of con nective and other soft tissue of unspecified site 01/21/2008 09/08/2016 Obesity, unspecified 05/14/2007 11/10/2017 Pain in limb 01/11/2007 09/08/2016 Onychia and paronychia of toe 01/10/2007 Pain in joint, lower leg 09/19/2006 017 Iron deficiency anemia, unspecified 06/12/2006 09/08/2016 Need for prophylactic hormon e replacement therapy (postmenopausal) 12/30/2005 09/08/2016 Mixed hyperlipidemia 12/30/2005 03/20/2017 Type II or unspecified type diabetes mellitus without mention of complication, not stated as uncontrolled 12/30/2005 Migraine without aura 09/08/2016 documented as of this encounter (statuses as of 10/04/2021) [facility] NoteHNO ID: [id number] Author: Esteban Mao MD Service: ? Author Type: Physician Type: Progress Notes Filed: 11/12/2020 5:29 PM Note Text: Coni Romero is a 80 year old, Unavailable female who presents with complaints of A history of anemia in told it may be secondary to her hemorrhoids. Patient has required both transfusion and iron injections for her anemia. She totally denies any rectal bleeding. She denies any bright red blood per rectum or passing clots or prolapse. She also denies any kind of melena or significant episodes of GI bleeding. She has had a fairly extensive work-up which is included an upper GI endoscopy colonoscopy and pill endoscopy. She has seen a kindergarten assistant and has an appointment to follow-up with them to discuss her testing. She is here now for evaluation of her hemorrhoids. PAST MEDICAL HISTORY Diagnosis Date - Acute gastritis without mention of hemorrhage - Anemia, unspecified - Anxiety state, unspecified - Atrial fibrillation (HCC) - B12 deficiency - Diverticulosis of colon (without mention of hemorrhage) - Esophageal reflux - Gastritis - Generalized osteoarthrosis, unspecified site - Gout - Hemorrhage of gastrointestinal tract, unspecified - Hemorrhoids - Iron deficiency anemia, unspecified - Migraine without aura has been quiescent since menopause. - Other and unspecified hyperlipidemia - Type II or unspecified type diabetes mellitus without mention of complication, uncontrolled PAST SURGICAL HISTORY Procedure Laterality Date - CARPAL TUNNEL 05/2014 left - COLONOSCOP W/ OR W/O [facility] SPEC 04/14/2005 Colonoscopy - COLONOSCOP W/ OR W/O [facility] SPEC 01/21/2016 Colonoscopy - COLONOSCOPY GEN ANES 07/31/2020 External/internal hemorrhoids - EGD 07/31/2020 Mild Gastritis - EGD W/O [facility] SPECIMEN W/BX 06/25/2007 - LAPAROSCOPIC CHOLECYSTECTOMY 01/08/2018 - PAST SURGICAL HISTORY OF 1967 right breast cyst benign - PAST SURGICAL HISTORY OF 2010 Rt carpal tunnel - PAST SURGICAL HISTORY OF 12/2016 cataract surgery right eye - REMOVAL OF TONSILS,<12 Y/O Tonsillectomy - TOTAL KNEE REPLACEMENT 07/23/2007 Knee replacement, total right Social History Tobacco Use - Smoking status: Never Smoker - Smokeless tobacco: Never Used Vaping Use - Vaping Use: Never used Substance Use Topics - Alcohol use: No - Drug use: No FAMILY HISTORY Problem Relation Age of Onset - Heart Mother - Heart Father - Pneumonia Sister - No Known Problems Sister - Heart Brother - Cancer Maternal Grandfather - Cancer Paternal Grandfather - Colon Cancer No Family History ALLERGIES Allergen Reactions - Iodine Rash, Unknown, Hives - Metformin Other: See Comments Elevated renal function - Simvastatin Contraindication-Medical Surgical statin myopathy - Khwcniq-Drt-Sfp Red* Other: See Comments myopathy - Vytorin 10-10 [Ezet* Contraindication-Medical Surgical myopathy Current Outpatient Medications Medication Sig - glimepiride (AMARYL) 4 mg tablet Take 0.5 tablets by mouth once daily. - lansoprazole (PREVACID) 30 mg capsule TAKE 1 CAPSULE EVERY MORNING BEFORE EATING - colestipol (COLESTID) 1 gram tablet Take 1 tablet by mouth twice daily with meals. - pioglitazone (ACTOS) 30 mg tablet Take 1 tablet by mouth once daily. - carvedilol (COREG) 25 mg tablet Take 2 tablets by mouth twice daily. - cholecalciferol, Vitamin D3, (VITAMIN D3) 1,250 mcg (50,000 unit) cap capsule Take 1 capsule by mouth one time a week. - levothyroxine (SYNTHROID) 137 mcg tablet Take 1 tablet by mouth once daily. Take on empty stomach. For thyroid. - iron polysaccharide complex (FERREX-150) 150 mg iron capsule Take 1 capsule by mouth once daily. - cyanocobalamin 1,000 mcg/mL INJECT 1 MILLILITER INTRAMUSCULARLY ONCE A MONTH - acetaminophen (TYLENOL) 500 mg tablet Take by mouth. - gabapentin (NEURONTIN) 300 mg capsule Take 1 capsule by mouth four times daily for 203 days. - blood sugar diagnostic (BLOOD GLUCOSE TEST) test strip Test blood sugar(s) two times daily. Dx: Other DM Code E11.49 Insulin: Yes - allopurinol (ZYLOPRIM) 100 mg tablet Take 2 tablets by mouth once daily. - amiodarone (PACERONE) 200 mg tablet Take 1 tablet by mouth once daily. - Syringe with Needle, Disp, (BD LUER-TALON SYRINGE) USE SYRINGE TO INJECT B12 ONCE A MONTH - dulaglutide (TRULICITY) 1.5 mg/0.5 mL Inject 1.5 mg subcutaneously one time a week. Inject once per week. Discard Pen After - Insulin [place], Disposable, (BD ULTRA-FINE HORTENCIA PEN NEEDLE) 32 gauge x 5/32 ndle Use one needle for each dose. 3x/day. E11.65 E11.49 - clotrimazole (LOTRIMIN, CLOTRIM) 1 % cream Apply 1 application to affected area twice daily. - triamcinolone acetonide (KENALOG) 0.1 % cream apply to affected area twice a day - blood sugar diagnostic (EASYMAX N) test strip Frequency of testin times daily DX E11.49 Insulin YES - Lancets lancets Test glucose 2x/daily, 250.02, i (more content not included)...[facility]06-[facility]2018 History of Past illness Narrative* Problem Noted Date Resolved Date Obesity, Class I, BMI 30-34.9 11/10/2017 Type 2 DM with CKD stage 4 and hypertension 12/0403/20/2017 Metabolic acidosis 12/26/2016 03/20/2017 Secondary hyperparathyroidism of renal origin 03/20/2017 Screening for genitourinary condition 12/26/2016 03/20/2017 Anemia of renal disease 12/26/2016 03/20/20 17 Chronic anticoagulation 09/29/2016 08/02/19 22 Colon cancer screening 01/21/2016 6 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 02/18/2015 09/08/2016 CKD (chronic kidney disease) stage 3, GFR 30-59 ml/min 12/16/2013 03/29/2021 Other symptoms involving ner vous and musculoskeletal systems(781.99) 07/16/2013 09/08/2016 Statin myopathy 01/22/2011 12/16/2013 Other physical therapy 07/16/2010 7 Hypertension 06/03/2010 03/20/2017 Cellulitis and abscess of toe, unspecified 05/2309/08/2016 Other benign neoplasm of con nective and other soft tissue of unspecified site 01/21/2008 09/08/2016 Obesity, unspecified 05/14/2007 11/10/2017 Pain in limb 01/11/2007 09/08/2016 Onychia and paronychia of toe 01/10/2007 Pain in joint, lower leg 09/19/2006 017 Iron deficiency anemia, unspecified 06/12/2006 09/08/2016 Need for prophylactic hormon e replacement therapy (postmenopausal) 12/30/2005 09/08/2016 Mixed hyperlipidemia 12/30/2005 03/20/2017 Type II or unspecified type diabetes mellitus without mention of complication, not stated as uncontrolled 12/30/2005 Migraine without aura 09/08/2016 documented as of this encounter (statuses as of 10/05/2021) [facility] History of Past illness Narrative* Problem Noted Date Resolved Date Obesity, Class I, BMI 30-34.9 11/10/2017 Type 2 DM with CKD stage 4 and hypertension 12/0403/20/2017 Metabolic acidosis 12/26/2016 03/20/2017 Secondary hyperparathyroidism of renal origin 03/20/2017 Screening for genitourinary condition 12/26/2016 03/20/2017 Anemia of renal disease 12/26/2016 03/20/20 17 Chronic anticoagulation 09/29/2016 08/02/19 22 Colon cancer screening 01/21/2016 6 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 02/18/2015 09/08/2016 CKD (chronic kidney disease) stage 3, GFR 30-59 ml/min 12/16/2013 03/29/2021 Other symptoms involving ner vous and musculoskeletal systems(781.99) 07/16/2013 09/08/2016 Statin myopathy 01/22/2011 12/16/2013 Other physical therapy 07/16/2010 7 Hypertension 06/03/2010 03/20/2017 Cellulitis and abscess of toe, unspecified 05/2309/08/2016 Other benign neoplasm of con nective and other soft tissue of unspecified site 01/21/2008 09/08/2016 Obesity, unspecified 05/14/2007 11/10/2017 Pain in limb 01/11/2007 09/08/2016 Onychia and paronychia of toe 01/10/2007 Pain in joint, lower leg 09/19/2006 017 Iron deficiency anemia, unspecified 06/12/2006 09/08/2016 Need for prophylactic hormon e replacement therapy (postmenopausal) 12/30/2005 09/08/2016 Mixed hyperlipidemia 12/30/2005 03/20/2017 Type II or unspecified type diabetes mellitus without mention of complication, not stated as uncontrolled 12/30/2005 Migraine without aura 09/08/2016 documented as of this encounter (statuses as of 10/09/2021) [facility] History of Past illness Narrative* Problem Noted Date Resolved Date Obesity, Class I, BMI 30-34.9 11/10/2017 Type 2 DM with CKD stage 4 and hypertension 12/0403/20/2017 Metabolic acidosis 12/26/2016 03/20/2017 Secondary hyperparathyroidism of renal origin 03/20/2017 Screening for genitourinary condition 12/26/2016 03/20/2017 Anemia of renal disease 12/26/2016 03/20/20 17 Chronic anticoagulation 09/29/2016 08/02/19 22 Colon cancer screening 01/21/2016 6 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 02/18/2015 09/08/2016 CKD (chronic kidney disease) stage 3, GFR 30-59 ml/min 12/16/2013 03/29/2021 Other symptoms involving ner vous and musculoskeletal systems(781.99) 07/16/2013 09/08/2016 Statin myopathy 01/22/2011 12/16/2013 Other physical therapy 07/16/2010 7 Hypertension 06/03/2010 03/20/2017 Cellulitis and abscess of toe, unspecified 05/2309/08/2016 Other benign neoplasm of con nective and other soft tissue of unspecified site 01/21/2008 09/08/2016 Obesity, unspecified 05/14/2007 11/10/2017 Pain in limb 01/11/2007 09/08/2016 Onychia and paronychia of toe 01/10/2007 Pain in joint, lower leg 09/19/2006 017 Iron deficiency anemia, unspecified 06/12/2006 09/08/2016 Need for prophylactic hormon e replacement therapy (postmenopausal) 12/30/2005 09/08/2016 Mixed hyperlipidemia 12/30/2005 03/20/2017 Type II or unspecified type diabetes mellitus without mention of complication, not stated as uncontrolled 12/30/2005 Migraine without aura 09/08/2016 documented as of this encounter (statuses as of 10/21/2021) [facility] of Past illness Narrative* Problem Noted Date Resolved Date Obesity, Class I, BMI 30-34.9 11/10/2017 Type 2 DM with CKD stage 4 and hypertension 12/0403/20/2017 Metabolic acidosis 12/26/2016 03/20/2017 Secondary hyperparathyroidism of renal origin 03/20/2017 Screening for genitourinary condition 12/26/2016 03/20/2017 Anemia of renal disease 12/26/2016 03/20/20 17 Chronic anticoagulation 09/29/2016 08/02/19 22 Colon cancer screening 01/21/2016 6 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 02/18/2015 09/08/2016 CKD (chronic kidney disease) stage 3, GFR 30-59 ml/min 12/16/2013 03/29/2021 Other symptoms involving ner vous and musculoskeletal systems(781.99) 07/16/2013 09/08/2016 Statin myopathy 01/22/2011 12/16/2013 Other physical therapy 07/16/2010 7 Hypertension 06/03/2010 03/20/2017 Cellulitis and abscess of toe, unspecified 05/2309/08/2016 Other benign neoplasm of con nective and other soft tissue of unspecified site 01/21/2008 09/08/2016 Obesity, unspecified 05/14/2007 11/10/2017 Pain in limb 01/11/2007 09/08/2016 Onychia and paronychia of toe 01/10/2007 Pain in joint, lower leg 09/19/2006 017 Iron deficiency anemia, unspecified 06/12/2006 09/08/2016 Need for prophylactic hormon e replacement therapy (postmenopausal) 12/30/2005 09/08/2016 Mixed hyperlipidemia 12/30/2005 03/20/2017 Type II or unspecified type diabetes mellitus without mention of complication, not stated as uncontrolled 12/30/2005 Migraine without aura 09/08/2016 documented as of this encounter (statuses as of 10/26/2021) [facility] of Past illness Narrative* Problem Noted Date Resolved Date Obesity, Class I, BMI 30-34.9 11/10/2017 Type 2 DM with CKD stage 4 and hypertension 12/0403/20/2017 Metabolic acidosis 12/26/2016 03/20/2017 Secondary hyperparathyroidism of renal origin 03/20/2017 Screening for genitourinary condition 12/26/2016 03/20/2017 Anemia of renal disease 12/26/2016 03/20/20 17 Chronic anticoagulation 09/29/2016 08/02/19 22 Colon cancer screening 01/21/2016 6 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 02/18/2015 09/08/2016 CKD (chronic kidney disease) stage 3, GFR 30-59 ml/min 12/16/2013 03/29/2021 Other symptoms involving ner vous and musculoskeletal systems(781.99) 07/16/2013 09/08/2016 Statin myopathy 01/22/2011 12/16/2013 Other physical therapy 07/16/2010 7 Hypertension 06/03/2010 03/20/2017 Cellulitis and abscess of toe, unspecified 05/2309/08/2016 Other benign neoplasm of con nective and other soft tissue of unspecified site 01/21/2008 09/08/2016 Obesity, unspecified 05/14/2007 11/10/2017 Pain in limb 01/11/2007 09/08/2016 Onychia and paronychia of toe 01/10/2007 Pain in joint, lower leg 09/19/2006 017 Iron deficiency anemia, unspecified 06/12/2006 09/08/2016 Need for prophylactic hormon e replacement therapy (postmenopausal) 12/30/2005 09/08/2016 Mixed hyperlipidemia 12/30/2005 03/20/2017 Type II or unspecified type diabetes mellitus without mention of complication, not stated as uncontrolled 12/30/2005 Migraine without aura 09/08/2016 documented as of this encounter (statuses as of 10/28/2021) [facility] of Past illness Narrative* Problem Noted Date Resolved Date Obesity, Class I, BMI 30-34.9 11/10/2017 Type 2 DM with CKD stage 4 and hypertension 12/0403/20/2017 Metabolic acidosis 12/26/2016 03/20/2017 Secondary hyperparathyroidism of renal origin 03/20/2017 Screening for genitourinary condition 12/26/2016 03/20/2017 Anemia of renal disease 12/26/2016 03/20/20 17 Chronic anticoagulation 09/29/2016 08/02/19 22 Colon cancer screening 01/21/2016 6 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 02/18/2015 09/08/2016 CKD (chronic kidney disease) stage 3, GFR 30-59 ml/min 12/16/2013 03/29/2021 Other symptoms involving ner vous and musculoskeletal systems(781.99) 07/16/2013 09/08/2016 Statin myopathy 01/22/2011 12/16/2013 Other physical therapy 07/16/2010 7 Hypertension 06/03/2010 03/20/2017 Cellulitis and abscess of toe, unspecified 05/2309/08/2016 Other benign neoplasm of con nective and other soft tissue of unspecified site 01/21/2008 09/08/2016 Obesity, unspecified 05/14/2007 11/10/2017 Pain in limb 01/11/2007 09/08/2016 Onychia and paronychia of toe 01/10/2007 Pain in joint, lower leg 09/19/2006 017 Iron deficiency anemia, unspecified 06/12/2006 09/08/2016 Need for prophylactic hormon e replacement therapy (postmenopausal) 12/30/2005 09/08/2016 Mixed hyperlipidemia 12/30/2005 03/20/2017 Type II or unspecified type diabetes mellitus without mention of complication, not stated as uncontrolled 12/30/2005 Migraine without aura 09/08/2016 documented as of this encounter (statuses as of 10/29/2021) [facility] Past illness Narrative* Problem Noted Date Resolved Date Obesity, Class I, BMI 30-34.9 11/10/2017 Type 2 DM with CKD stage 4 and hypertension 12/0403/20/2017 Metabolic acidosis 12/26/2016 03/20/2017 Secondary hyperparathyroidism of renal origin 03/20/2017 Screening for genitourinary condition 12/26/2016 03/20/2017 Anemia of renal disease 12/26/2016 03/20/20 17 Chronic anticoagulation 09/29/2016 08/02/19 22 Colon cancer screening 01/21/2016 6 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 02/18/2015 09/08/2016 CKD (chronic kidney disease) stage 3, GFR 30-59 ml/min 12/16/2013 03/29/2021 Other symptoms involving ner vous and musculoskeletal systems(781.99) 07/16/2013 09/08/2016 Statin myopathy 01/22/2011 12/16/2013 Other physical therapy 07/16/2010 7 Hypertension 06/03/2010 03/20/2017 Cellulitis and abscess of toe, unspecified 05/2309/08/2016 Other benign neoplasm of con nective and other soft tissue of unspecified site 01/21/2008 09/08/2016 Obesity, unspecified 05/14/2007 11/10/2017 Pain in limb 01/11/2007 09/08/2016 Onychia and paronychia of toe 01/10/2007 Pain in joint, lower leg 09/19/2006 017 Iron deficiency anemia, unspecified 06/12/2006 09/08/2016 Need for prophylactic hormon e replacement therapy (postmenopausal) 12/30/2005 09/08/2016 Mixed hyperlipidemia 12/30/2005 03/20/2017 Type II or unspecified type diabetes mellitus without mention of complication, not stated as uncontrolled 12/30/2005 Migraine without aura 09/08/2016 documented as of this encounter (statuses as of 11/05/2021) [facility] Past [facility] Narrative* Problem Noted Date Resolved Date Obesity, Class I, BMI 30-34.9 11/10/2017 Type 2 DM with CKD stage 4 and hypertension 12/0403/20/2017 Metabolic acidosis 12/26/2016 03/20/2017 Secondary hyperparathyroidism of renal origin 03/20/2017 Screening for genitourinary condition 12/26/2016 03/20/2017 Anemia of renal disease 12/26/2016 03/20/20 17 Chronic anticoagulation 09/29/2016 08/02/19 22 Colon cancer screening 01/21/2016 6 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 02/18/2015 09/08/2016 CKD (chronic kidney disease) stage 3, GFR 30-59 ml/min 12/16/2013 03/29/2021 Other symptoms involving ner vous and musculoskeletal systems(781.99) 07/16/2013 09/08/2016 Statin myopathy 01/22/2011 12/16/2013 Other physical therapy 07/16/2010 7 Hypertension 06/03/2010 03/20/2017 Cellulitis and abscess of toe, unspecified 05/2309/08/2016 Other benign neoplasm of con nective and other soft tissue of unspecified site 01/21/2008 09/08/2016 Obesity, unspecified 05/14/2007 11/10/2017 Pain in limb 01/11/2007 09/08/2016 Onychia and paronychia of toe 01/10/2007 Pain in joint, lower leg 09/19/2006 017 Iron deficiency anemia, unspecified 06/12/2006 09/08/2016 Need for prophylactic hormon e replacement therapy (postmenopausal) 12/30/2005 09/08/2016 Mixed hyperlipidemia 12/30/2005 03/20/2017 Type II or unspecified type diabetes mellitus without mention of complication, not stated as uncontrolled 12/30/2005 Migraine without aura 09/08/2016 documented as of this encounter (statuses as of 12/02/2021) [facility] Past [facility] Narrative* Problem Noted Date Resolved Date Obesity, Class I, BMI 30-34.9 11/10/2017 Type 2 DM with CKD stage 4 and hypertension 12/0403/20/2017 Metabolic acidosis 12/26/2016 03/20/2017 Secondary hyperparathyroidism of renal origin 03/20/2017 Screening for genitourinary condition 12/26/2016 03/20/2017 Anemia of renal disease 12/26/2016 03/20/20 17 Chronic anticoagulation 09/29/2016 08/02/19 22 Colon cancer screening 01/21/2016 6 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 02/18/2015 09/08/2016 CKD (chronic kidney disease) stage 3, GFR 30-59 ml/min 12/16/2013 03/29/2021 Other symptoms involving ner vous and musculoskeletal systems(781.99) 07/16/2013 09/08/2016 Statin myopathy 01/22/2011 12/16/2013 Other physical therapy 07/16/2010 7 Hypertension 06/03/2010 03/20/2017 Cellulitis and abscess of toe, unspecified 05/2309/08/2016 Other benign neoplasm of con nective and other soft tissue of unspecified site 01/21/2008 09/08/2016 Obesity, unspecified 05/14/2007 11/10/2017 Pain in limb 01/11/2007 09/08/2016 Onychia and paronychia of toe 01/10/2007 Pain in joint, lower leg 09/19/2006 017 Iron deficiency anemia, unspecified 06/12/2006 09/08/2016 Need for prophylactic hormon e replacement therapy (postmenopausal) 12/30/2005 09/08/2016 Mixed hyperlipidemia 12/30/2005 03/20/2017 Type II or unspecified type diabetes mellitus without mention of complication, not stated as uncontrolled 12/30/2005 Migraine without aura 09/08/2016 documented as of this encounter (statuses as of 12/03/2021) [facility] History of Past illness Narrative* Problem Noted Date Resolved Date Obesity, Class I, BMI 30-34.9 11/10/2017 Type 2 DM with CKD stage 4 and hypertension 12/0403/20/2017 Metabolic acidosis 12/26/2016 03/20/2017 Secondary hyperparathyroidism of renal origin 03/20/2017 Screening for genitourinary condition 12/26/2016 03/20/2017 Anemia of renal disease 12/26/2016 03/20/20 17 Chronic anticoagulation 09/29/2016 08/02/19 22 Colon cancer screening 01/21/2016 6 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 02/18/2015 09/08/2016 CKD (chronic kidney disease) stage 3, GFR 30-59 ml/min 12/16/2013 03/29/2021 Other symptoms involving ner vous and musculoskeletal systems(781.99) 07/16/2013 09/08/2016 Statin myopathy 01/22/2011 12/16/2013 Other physical therapy 07/16/2010 7 Hypertension 06/03/2010 03/20/2017 Cellulitis and abscess of toe, unspecified 05/2309/08/2016 Other benign neoplasm of con nective and other soft tissue of unspecified site 01/21/2008 09/08/2016 Obesity, unspecified 05/14/2007 11/10/2017 Pain in limb 01/11/2007 09/08/2016 Onychia and paronychia of toe 01/10/2007 Pain in joint, lower leg 09/19/2006 017 Iron deficiency anemia, unspecified 06/12/2006 09/08/2016 Need for prophylactic hormon e replacement therapy (postmenopausal) 12/30/2005 09/08/2016 Mixed hyperlipidemia 12/30/2005 03/20/2017 Type II or unspecified type diabetes mellitus without mention of complication, not stated as uncontrolled 12/30/2005 Migraine without aura 09/08/2016 documented as of this encounter (statuses as of 12/09/2021) [facility] History of Past illness Narrative* Problem Noted Date Resolved Date Obesity, Class I, BMI 30-34.9 11/10/2017 Type 2 DM with CKD stage 4 and hypertension 12/0403/20/2017 Metabolic acidosis 12/26/2016 03/20/2017 Secondary hyperparathyroidism of renal origin 03/20/2017 Screening for genitourinary condition 12/26/2016 03/20/2017 Anemia of renal disease 12/26/2016 03/20/20 17 Chronic anticoagulation 09/29/2016 08/02/19 22 Colon cancer screening 01/21/2016 6 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 02/18/2015 09/08/2016 CKD (chronic kidney disease) stage 3, GFR 30-59 ml/min 12/16/2013 03/29/2021 Other symptoms involving ner vous and musculoskeletal systems(781.99) 07/16/2013 09/08/2016 Statin myopathy 01/22/2011 12/16/2013 Other physical therapy 07/16/2010 7 Hypertension 06/03/2010 03/20/2017 Cellulitis and abscess of toe, unspecified 05/2309/08/2016 Other benign neoplasm of con nective and other soft tissue of unspecified site 01/21/2008 09/08/2016 Obesity, unspecified 05/14/2007 11/10/2017 Pain in limb 01/11/2007 09/08/2016 Onychia and paronychia of toe 01/10/2007 Pain in joint, lower leg 09/19/2006 017 Iron deficiency anemia, unspecified 06/12/2006 09/08/2016 Need for prophylactic hormon e replacement therapy (postmenopausal) 12/30/2005 09/08/2016 Mixed hyperlipidemia 12/30/2005 03/20/2017 Type II or unspecified type diabetes mellitus without mention of complication, not stated as uncontrolled 12/30/2005 Migraine without aura 09/08/2016 documented as of this encounter (statuses as of 12/16/2021) [facility] History of Past illness Narrative* Problem Noted Date Resolved Date Obesity, Class I, BMI 30-34.9 11/10/2017 Type 2 DM with CKD stage 4 and hypertension 12/0403/20/2017 Metabolic acidosis 12/26/2016 03/20/2017 Secondary hyperparathyroidism of renal origin 03/20/2017 Screening for genitourinary condition 12/26/2016 03/20/2017 Anemia of renal disease 12/26/2016 03/20/20 17 Chronic anticoagulation 09/29/2016 08/02/19 22 Colon cancer screening 01/21/2016 6 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 02/18/2015 09/08/2016 CKD (chronic kidney disease) stage 3, GFR 30-59 ml/min 12/16/2013 03/29/2021 Other symptoms involving ner vous and musculoskeletal systems(781.99) 07/16/2013 09/08/2016 Statin myopathy 01/22/2011 12/16/2013 Other physical therapy 07/16/2010 7 Hypertension 06/03/2010 03/20/2017 Cellulitis and abscess of toe, unspecified 05/2309/08/2016 Other benign neoplasm of con nective and other soft tissue of unspecified site 01/21/2008 09/08/2016 Obesity, unspecified 05/14/2007 11/10/2017 Pain in limb 01/11/2007 09/08/2016 Onychia and paronychia of toe 01/10/2007 Pain in joint, lower leg 09/19/2006 017 Iron deficiency anemia, unspecified 06/12/2006 09/08/2016 Need for prophylactic hormon e replacement therapy (postmenopausal) 12/30/2005 09/08/2016 Mixed hyperlipidemia 12/30/2005 03/20/2017 Type II or unspecified type diabetes mellitus without mention of complication, not stated as uncontrolled 12/30/2005 Migraine without aura 09/08/2016 documented as of this encounter (statuses as of 12/16/2021) [facility] History of Past illness Narrative* Problem Noted Date Resolved Date Obesity, Class I, BMI 30-34.9 11/10/2017 Type 2 DM with CKD stage 4 and hypertension 12/0403/20/2017 Metabolic acidosis 12/26/2016 03/20/2017 Secondary hyperparathyroidism of renal origin 03/20/2017 Screening for genitourinary condition 12/26/2016 03/20/2017 Anemia of renal disease 12/26/2016 03/20/20 17 Chronic anticoagulation 09/29/2016 08/02/19 22 Colon cancer screening 01/21/2016 6 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 02/18/2015 09/08/2016 CKD (chronic kidney disease) stage 3, GFR 30-59 ml/min 12/16/2013 03/29/2021 Other symptoms involving ner vous and musculoskeletal systems(781.99) 07/16/2013 09/08/2016 Statin myopathy 01/22/2011 12/16/2013 Other physical therapy 07/16/2010 7 Hypertension 06/03/2010 03/20/2017 Cellulitis and abscess of toe, unspecified 05/2309/08/2016 Other benign neoplasm of con nective and other soft tissue of unspecified site 01/21/2008 09/08/2016 Obesity, unspecified 05/14/2007 11/10/2017 Pain in limb 01/11/2007 09/08/2016 Onychia and paronychia of toe 01/10/2007 Pain in joint, lower leg 09/19/2006 017 Iron deficiency anemia, unspecified 06/12/2006 09/08/2016 Need for prophylactic hormon e replacement therapy (postmenopausal) 12/30/2005 09/08/2016 Mixed hyperlipidemia 12/30/2005 03/20/2017 Type II or unspecified type diabetes mellitus without mention of complication, not stated as uncontrolled 12/30/2005 Migraine without aura 09/08/2016 documented as of this encounter (statuses as of 12/21/2021) [facility] History of Past illness Narrative* Problem Noted Date Resolved Date Obesity, Class I, BMI 30-34.9 11/10/2017 Type 2 DM with CKD stage 4 and hypertension 12/0403/20/2017 Metabolic acidosis 12/26/2016 03/20/2017 Secondary hyperparathyroidism of renal origin 03/20/2017 Screening for genitourinary condition 12/26/2016 03/20/2017 Anemia of renal disease 12/26/2016 03/20/20 17 Chronic anticoagulation 09/29/2016 08/02/19 22 Colon cancer screening 01/21/2016 6 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 02/18/2015 09/08/2016 CKD (chronic kidney disease) stage 3, GFR 30-59 ml/min 12/16/2013 03/29/2021 Other symptoms involving ner vous and musculoskeletal systems(781.99) 07/16/2013 09/08/2016 Statin myopathy 01/22/2011 12/16/2013 Other physical therapy 07/16/2010 7 Hypertension 06/03/2010 03/20/2017 Cellulitis and abscess of toe, unspecified 05/2309/08/2016 Other benign neoplasm of con nective and other soft tissue of unspecified site 01/21/2008 09/08/2016 Obesity, unspecified 05/14/2007 11/10/2017 Pain in limb 01/11/2007 09/08/2016 Onychia and paronychia of toe 01/10/2007 Pain in joint, lower leg 09/19/2006 017 Iron deficiency anemia, unspecified 06/12/2006 09/08/2016 Need for prophylactic hormon e replacement therapy (postmenopausal) 12/30/2005 09/08/2016 Mixed hyperlipidemia 12/30/2005 03/20/2017 Type II or unspecified type diabetes mellitus without mention of complication, not stated as uncontrolled 12/30/2005 Migraine without aura 09/08/2016 documented as of this encounter (statuses as of 12/23/2021) [facility] of Past illness Narrative* Problem Noted Date Resolved Date Obesity, Class I, BMI 30-34.9 11/10/2017 Type 2 DM with CKD stage 4 and hypertension 12/0403/20/2017 Metabolic acidosis 12/26/2016 03/20/2017 Secondary hyperparathyroidism of renal origin 03/20/2017 Screening for genitourinary condition 12/26/2016 03/20/2017 Anemia of renal disease 12/26/2016 03/20/20 17 Chronic anticoagulation 09/29/2016 08/02/19 22 Colon cancer screening 01/21/2016 6 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 02/18/2015 09/08/2016 CKD (chronic kidney disease) stage 3, GFR 30-59 ml/min 12/16/2013 03/29/2021 Other symptoms involving ner vous and musculoskeletal systems(781.99) 07/16/2013 09/08/2016 Statin myopathy 01/22/2011 12/16/2013 Other physical therapy 07/16/2010 7 Hypertension 06/03/2010 03/20/2017 Cellulitis and abscess of toe, unspecified 05/2309/08/2016 Other benign neoplasm of con nective and other soft tissue of unspecified site 01/21/2008 09/08/2016 Obesity, unspecified 05/14/2007 11/10/2017 Pain in limb 01/11/2007 09/08/2016 Onychia and paronychia of toe 01/10/2007 Pain in joint, lower leg 09/19/2006 017 Iron deficiency anemia, unspecified 06/12/2006 09/08/2016 Need for prophylactic hormon e replacement therapy (postmenopausal) 12/30/2005 09/08/2016 Mixed hyperlipidemia 12/30/2005 03/20/2017 Type II or unspecified type diabetes mellitus without mention of complication, not stated as uncontrolled 12/30/2005 Migraine without aura 09/08/2016 documented as of this encounter (statuses as of 12/30/2021) [facility] of Past illness Narrative* Problem Noted Date Resolved Date Obesity, Class I, BMI 30-34.9 11/10/2017 Type 2 DM with CKD stage 4 and hypertension 12/0403/20/2017 Metabolic acidosis 12/26/2016 03/20/2017 Secondary hyperparathyroidism of renal origin 03/20/2017 Screening for genitourinary condition 12/26/2016 03/20/2017 Anemia of renal disease 12/26/2016 03/20/20 17 Chronic anticoagulation 09/29/2016 08/02/19 22 Colon cancer screening 01/21/2016 6 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 02/18/2015 09/08/2016 CKD (chronic kidney disease) stage 3, GFR 30-59 ml/min 12/16/2013 03/29/2021 Other symptoms involving ner vous and musculoskeletal systems(781.99) 07/16/2013 09/08/2016 Statin myopathy 01/22/2011 12/16/2013 Other physical therapy 07/16/2010 7 Hypertension 06/03/2010 03/20/2017 Cellulitis and abscess of toe, unspecified 05/2309/08/2016 Other benign neoplasm of con nective and other soft tissue of unspecified site 01/21/2008 09/08/2016 Obesity, unspecified 05/14/2007 11/10/2017 Pain in limb 01/11/2007 09/08/2016 Onychia and paronychia of toe 01/10/2007 Pain in joint, lower leg 09/19/2006 017 Iron deficiency anemia, unspecified 06/12/2006 09/08/2016 Need for prophylactic hormon e replacement therapy (postmenopausal) 12/30/2005 09/08/2016 Mixed hyperlipidemia 12/30/2005 03/20/2017 Type II or unspecified type diabetes mellitus without mention of complication, not stated as uncontrolled 12/30/2005 Migraine without aura 09/08/2016 documented as of this encounter (statuses as of 12/31/2021) [facility] of Past illness Narrative* Problem Noted Date Resolved Date Obesity, Class I, BMI 30-34.9 11/10/2017 Type 2 DM with CKD stage 4 and hypertension 12/0403/20/2017 Metabolic acidosis 12/26/2016 03/20/2017 Secondary hyperparathyroidism of renal origin 03/20/2017 Screening for genitourinary condition 12/26/2016 03/20/2017 Anemia of renal disease 12/26/2016 03/20/20 17 Chronic anticoagulation 09/29/2016 08/02/19 22 Colon cancer screening 01/21/2016 6 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 02/18/2015 09/08/2016 CKD (chronic kidney disease) stage 3, GFR 30-59 ml/min 12/16/2013 03/29/2021 Other symptoms involving ner vous and musculoskeletal systems(781.99) 07/16/2013 09/08/2016 Statin myopathy 01/22/2011 12/16/2013 Other physical therapy 07/16/2010 7 Hypertension 06/03/2010 03/20/2017 Cellulitis and abscess of toe, unspecified 05/2309/08/2016 Other benign neoplasm of con nective and other soft tissue of unspecified site 01/21/2008 09/08/2016 Obesity, unspecified 05/14/2007 11/10/2017 Pain in limb 01/11/2007 09/08/2016 Onychia and paronychia of toe 01/10/2007 Pain in joint, lower leg 09/19/2006 017 Iron deficiency anemia, unspecified 06/12/2006 09/08/2016 Need for prophylactic hormon e replacement therapy (postmenopausal) 12/30/2005 09/08/2016 Mixed hyperlipidemia 12/30/2005 03/20/2017 Type II or unspecified type diabetes mellitus without mention of complication, not stated as uncontrolled 12/30/2005 Migraine without aura 09/08/2016 documented as of this encounter (statuses as of 01/04/2022) [facility] of Past illness Narrative* Problem Noted Date Resolved Date Obesity, Class I, BMI 30-34.9 11/10/2017 Type 2 DM with CKD stage 4 and hypertension 12/0403/20/2017 Metabolic acidosis 12/26/2016 03/20/2017 Secondary hyperparathyroidism of renal origin 03/20/2017 Screening for genitourinary condition 12/26/2016 03/20/2017 Anemia of renal disease 12/26/2016 03/20/20 17 Chronic anticoagulation 09/29/2016 08/02/19 22 Colon cancer screening 01/21/2016 6 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 02/18/2015 09/08/2016 CKD (chronic kidney disease) stage 3, GFR 30-59 ml/min 12/16/2013 03/29/2021 Other symptoms involving ner vous and musculoskeletal systems(781.99) 07/16/2013 09/08/2016 Statin myopathy 01/22/2011 12/16/2013 Other physical therapy 07/16/2010 7 Hypertension 06/03/2010 03/20/2017 Cellulitis and abscess of toe, unspecified 05/2309/08/2016 Other benign neoplasm of con nective and other soft tissue of unspecified site 01/21/2008 09/08/2016 Obesity, unspecified 05/14/2007 11/10/2017 Pain in limb 01/11/2007 09/08/2016 Onychia and paronychia of toe 01/10/2007 Pain in joint, lower leg 09/19/2006 017 Iron deficiency anemia, unspecified 06/12/2006 09/08/2016 Need for prophylactic hormon e replacement therapy (postmenopausal) 12/30/2005 09/08/2016 Mixed hyperlipidemia 12/30/2005 03/20/2017 Type II or unspecified type diabetes mellitus without mention of complication, not stated as uncontrolled 12/30/2005 Migraine without aura 09/08/2016 documented as of this encounter (statuses as of 01/13/2022) [facility] Past illness Narrative* Problem Noted Date Resolved Date Obesity, Class I, BMI 30-34.9 11/10/2017 Type 2 DM with CKD stage 4 and hypertension 12/0403/20/2017 Metabolic acidosis 12/26/2016 03/20/2017 Secondary hyperparathyroidism of renal origin 03/20/2017 Screening for genitourinary condition 12/26/2016 03/20/2017 Anemia of renal disease 12/26/2016 03/20/20 17 Chronic anticoagulation 09/29/2016 08/02/19 22 Colon cancer screening 01/21/2016 6 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 02/18/2015 09/08/2016 CKD (chronic kidney disease) stage 3, GFR 30-59 ml/min 12/16/2013 03/29/2021 Other symptoms involving ner vous and musculoskeletal systems(781.99) 07/16/2013 09/08/2016 Statin myopathy 01/22/2011 12/16/2013 Other physical therapy 07/16/2010 7 Hypertension 06/03/2010 03/20/2017 Cellulitis and abscess of toe, unspecified 05/2309/08/2016 Other benign neoplasm of con nective and other soft tissue of unspecified site 01/21/2008 09/08/2016 Obesity, unspecified 05/14/2007 11/10/2017 Pain in limb 01/11/2007 09/08/2016 Onychia and paronychia of toe 01/10/2007 Pain in joint, lower leg 09/19/2006 017 Iron deficiency anemia, unspecified 06/12/2006 09/08/2016 Need for prophylactic hormon e replacement therapy (postmenopausal) 12/30/2005 09/08/2016 Mixed hyperlipidemia 12/30/2005 03/20/2017 Type II or unspecified type diabetes mellitus without mention of complication, not stated as uncontrolled 12/30/2005 Migraine without aura 09/08/2016 documented as of this encounter (statuses as of 01/14/2022) [facility] Narrative* Problem Noted Date Resolved Date Obesity, Class I, BMI 30-34.9 11/10/2017 Type 2 DM with CKD stage 4 and hypertension 12/0403/20/2017 Metabolic acidosis 12/26/2016 03/20/2017 Secondary hyperparathyroidism of renal origin 03/20/2017 Screening for genitourinary condition 12/26/2016 03/20/2017 Anemia of renal disease 12/26/2016 03/20/20 17 Chronic anticoagulation 09/29/2016 08/02/19 22 Colon cancer screening 01/21/2016 6 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 02/18/2015 09/08/2016 CKD (chronic kidney disease) stage 3, GFR 30-59 ml/min 12/16/2013 03/29/2021 Other symptoms involving ner vous and musculoskeletal systems(781.99) 07/16/2013 09/08/2016 Statin myopathy 01/22/2011 12/16/2013 Other physical therapy 07/16/2010 7 Hypertension 06/03/2010 03/20/2017 Cellulitis and abscess of toe, unspecified 05/2309/08/2016 Other benign neoplasm of con nective and other soft tissue of unspecified site 01/21/2008 09/08/2016 Obesity, unspecified 05/14/2007 11/10/2017 Pain in limb 01/11/2007 09/08/2016 Onychia and paronychia of toe 01/10/2007 Pain in joint, lower leg 09/19/2006 017 Iron deficiency anemia, unspecified 06/12/2006 09/08/2016 Need for prophylactic hormon e replacement therapy (postmenopausal) 12/30/2005 09/08/2016 Mixed hyperlipidemia 12/30/2005 03/20/2017 Type II or unspecified type diabetes mellitus without mention of complication, not stated as uncontrolled 12/30/2005 Migraine without aura 09/08/2016 documented as of this encounter (statuses as of 01/24/2022) [facility]arrative* Problem Noted Date Resolved Date Obesity, Class I, BMI 30-34.9 11/10/2017 Type 2 DM with CKD stage 4 and hypertension 12/0403/20/2017 Metabolic acidosis 12/26/2016 03/20/2017 Secondary hyperparathyroidism of renal origin 03/20/2017 Screening for genitourinary condition 12/26/2016 03/20/2017 Anemia of renal disease 12/26/2016 03/20/20 17 Chronic anticoagulation 09/29/2016 08/02/19 22 Colon cancer screening 01/21/2016 6 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 02/18/2015 09/08/2016 CKD (chronic kidney disease) stage 3, GFR 30-59 ml/min 12/16/2013 03/29/2021 Other symptoms involving ner vous and musculoskeletal systems(781.99) 07/16/2013 09/08/2016 Statin myopathy 01/22/2011 12/16/2013 Other physical therapy 07/16/2010 7 Hypertension 06/03/2010 03/20/2017 Cellulitis and abscess of toe, unspecified 05/2309/08/2016 Other benign neoplasm of con nective and other soft tissue of unspecified site 01/21/2008 09/08/2016 Obesity, unspecified 05/14/2007 11/10/2017 Pain in limb 01/11/2007 09/08/2016 Onychia and paronychia of toe 01/10/2007 Pain in joint, lower leg 09/19/2006 017 Iron deficiency anemia, unspecified 06/12/2006 09/08/2016 Need for prophylactic hormon e replacement therapy (postmenopausal) 12/30/2005 09/08/2016 Mixed hyperlipidemia 12/30/2005 03/20/2017 Type II or unspecified type diabetes mellitus without mention of complication, not stated as uncontrolled 12/30/2005 Migraine without aura 09/08/2016 documented as of this encounter (statuses as of 01/24/2022) [facility] Narrative* Problem Noted Date Resolved Date Obesity, Class I, BMI 30-34.9 11/10/2017 Type 2 DM with CKD stage 4 and hypertension 12/0403/20/2017 Metabolic acidosis 12/26/2016 03/20/2017 Secondary hyperparathyroidism of renal origin 03/20/2017 Screening for genitourinary condition 12/26/2016 03/20/2017 Anemia of renal disease 12/26/2016 03/20/20 17 Chronic anticoagulation 09/29/2016 08/02/19 22 Colon cancer screening 01/21/2016 6 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 02/18/2015 09/08/2016 CKD (chronic kidney disease) stage 3, GFR 30-59 ml/min 12/16/2013 03/29/2021 Other symptoms involving ner vous and musculoskeletal systems(781.99) 07/16/2013 09/08/2016 Statin myopathy 01/22/2011 12/16/2013 Other physical therapy 07/16/2010 7 Hypertension 06/03/2010 03/20/2017 Cellulitis and abscess of toe, unspecified 05/2309/08/2016 Other benign neoplasm of con nective and other soft tissue of unspecified site 01/21/2008 09/08/2016 Obesity, unspecified 05/14/2007 11/10/2017 Pain in limb 01/11/2007 09/08/2016 Onychia and paronychia of toe 01/10/2007 Pain in joint, lower leg 09/19/2006 017 Iron deficiency anemia, unspecified 06/12/2006 09/08/2016 Need for prophylactic hormon e replacement therapy (postmenopausal) 12/30/2005 09/08/2016 Mixed hyperlipidemia 12/30/2005 03/20/2017 Type II or unspecified type diabetes mellitus without mention of complication, not stated as uncontrolled 12/30/2005 Migraine without aura 09/08/2016 documented as of this encounter (statuses as of 01/24/2022) [facility]arr[facility]* Problem Noted Date Resolved Date Obesity, Class I, BMI 30-34.9 11/10/2017 Type 2 DM with CKD stage 4 and hypertension 12/0403/20/2017 Metabolic acidosis 12/26/2016 03/20/2017 Secondary hyperparathyroidism of renal origin 03/20/2017 Screening for genitourinary condition 12/26/2016 03/20/2017 Anemia of renal disease 12/26/2016 03/20/20 17 Chronic anticoagulation 09/29/2016 08/02/19 22 Colon cancer screening 01/21/2016 6 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 02/18/2015 09/08/2016 CKD (chronic kidney disease) stage 3, GFR 30-59 ml/min 12/16/2013 03/29/2021 Other symptoms involving ner vous and musculoskeletal systems(781.99) 07/16/2013 09/08/2016 Statin myopathy 01/22/2011 12/16/2013 Other physical therapy 07/16/2010 7 Hypertension 06/03/2010 03/20/2017 Cellulitis and abscess of toe, unspecified 05/2309/08/2016 Other benign neoplasm of con nective and other soft tissue of unspecified site 01/21/2008 09/08/2016 Obesity, unspecified 05/14/2007 11/10/2017 Pain in limb 01/11/2007 09/08/2016 Onychia and paronychia of toe 01/10/2007 Pain in joint, lower leg 09/19/2006 017 Iron deficiency anemia, unspecified 06/12/2006 09/08/2016 Need for prophylactic hormon e replacement therapy (postmenopausal) 12/30/2005 09/08/2016 Mixed hyperlipidemia 12/30/2005 03/20/2017 Type II or unspecified type diabetes mellitus without mention of complication, not stated as uncontrolled 12/30/2005 Migraine without aura 09/08/2016 documented as of this encounter (statuses as of 01/25/2022) [facility]arr[facility]* Problem Noted Date Resolved Date Obesity, Class I, BMI 30-34.9 11/10/2017 Type 2 DM with CKD stage 4 and hypertension 12/0403/20/2017 Metabolic acidosis 12/26/2016 03/20/2017 Secondary hyperparathyroidism of renal origin 03/20/2017 Screening for genitourinary condition 12/26/2016 03/20/2017 Anemia of renal disease 12/26/2016 03/20/20 17 Chronic anticoagulation 09/29/2016 08/02/19 22 Colon cancer screening 01/21/2016 6 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 02/18/2015 09/08/2016 CKD (chronic kidney disease) stage 3, GFR 30-59 ml/min 12/16/2013 03/29/2021 Other symptoms involving ner vous and musculoskeletal systems(781.99) 07/16/2013 09/08/2016 Statin myopathy 01/22/2011 12/16/2013 Other physical therapy 07/16/2010 7 Hypertension 06/03/2010 03/20/2017 Cellulitis and abscess of toe, unspecified 05/2309/08/2016 Other benign neoplasm of con nective and other soft tissue of unspecified site 01/21/2008 09/08/2016 Obesity, unspecified 05/14/2007 11/10/2017 Pain in limb 01/11/2007 09/08/2016 Onychia and paronychia of toe 01/10/2007 Pain in joint, lower leg 09/19/2006 017 Iron deficiency anemia, unspecified 06/12/2006 09/08/2016 Need for prophylactic hormon e replacement therapy (postmenopausal) 12/30/2005 09/08/2016 Mixed hyperlipidemia 12/30/2005 03/20/2017 Type II or unspecified type diabetes mellitus without mention of complication, not stated as uncontrolled 12/30/2005 Migraine without aura 09/08/2016 documented as of this encounter (statuses as of 01/27/2022) [facility] Past [facility] Narrative* Problem Noted Date Resolved Date Obesity, Class I, BMI 30-34.9 11/10/2017 Type 2 DM with CKD stage 4 and hypertension 12/0403/20/2017 Metabolic acidosis 12/26/2016 03/20/2017 Secondary hyperparathyroidism of renal origin 03/20/2017 Screening for genitourinary condition 12/26/2016 03/20/2017 Anemia of renal disease 12/26/2016 03/20/20 17 Chronic anticoagulation 09/29/2016 08/02/19 22 Colon cancer screening 01/21/2016 6 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 02/18/2015 09/08/2016 CKD (chronic kidney disease) stage 3, GFR 30-59 ml/min 12/16/2013 03/29/2021 Other symptoms involving ner vous and musculoskeletal systems(781.99) 07/16/2013 09/08/2016 Statin myopathy 01/22/2011 12/16/2013 Other physical therapy 07/16/2010 7 Hypertension 06/03/2010 03/20/2017 Cellulitis and abscess of toe, unspecified 05/2309/08/2016 Other benign neoplasm of con nective and other soft tissue of unspecified site 01/21/2008 09/08/2016 Obesity, unspecified 05/14/2007 11/10/2017 Pain in limb 01/11/2007 09/08/2016 Onychia and paronychia of toe 01/10/2007 Pain in joint, lower leg 09/19/2006 017 Iron deficiency anemia, unspecified 06/12/2006 09/08/2016 Need for prophylactic hormon e replacement therapy (postmenopausal) 12/30/2005 09/08/2016 Mixed hyperlipidemia 12/30/2005 03/20/2017 Type II or unspecified type diabetes mellitus without mention of complication, not stated as uncontrolled 12/30/2005 Migraine without aura 09/08/2016 documented as of this encounter (statuses as of 01/31/2022) [facility] Past illness Narrative* Problem Noted Date Resolved Date Obesity, Class I, BMI 30-34.9 11/10/2017 Type 2 DM with CKD stage 4 and hypertension 12/0403/20/2017 Metabolic acidosis 12/26/2016 03/20/2017 Secondary hyperparathyroidism of renal origin 03/20/2017 Screening for genitourinary condition 12/26/2016 03/20/2017 Anemia of renal disease 12/26/2016 03/20/20 17 Chronic anticoagulation 09/29/2016 08/02/19 22 Colon cancer screening 01/21/2016 6 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 02/18/2015 09/08/2016 CKD (chronic kidney disease) stage 3, GFR 30-59 ml/min 12/16/2013 03/29/2021 Other symptoms involving ner vous and musculoskeletal systems(781.99) 07/16/2013 09/08/2016 Statin myopathy 01/22/2011 12/16/2013 Other physical therapy 07/16/2010 7 Hypertension 06/03/2010 03/20/2017 Cellulitis and abscess of toe, unspecified 05/2309/08/2016 Other benign neoplasm of con nective and other soft tissue of unspecified site 01/21/2008 09/08/2016 Obesity, unspecified 05/14/2007 11/10/2017 Pain in limb 01/11/2007 09/08/2016 Onychia and paronychia of toe 01/10/2007 Pain in joint, lower leg 09/19/2006 017 Iron deficiency anemia, unspecified 06/12/2006 09/08/2016 Need for prophylactic hormon e replacement therapy (postmenopausal) 12/30/2005 09/08/2016 Mixed hyperlipidemia 12/30/2005 03/20/2017 Type II or unspecified type diabetes mellitus without mention of complication, not stated as uncontrolled 12/30/2005 Migraine without aura 09/08/2016 documented as of this encounter (statuses as of 02/10/2022) [facility] illness Narrative* Problem Noted Date Resolved Date Obesity, Class I, BMI 30-34.9 11/10/2017 Type 2 DM with CKD stage 4 and hypertension 12/0403/20/2017 Metabolic acidosis 12/26/2016 03/20/2017 Secondary hyperparathyroidism of renal origin 03/20/2017 Screening for genitourinary condition 12/26/2016 03/20/2017 Anemia of renal disease 12/26/2016 03/20/20 17 Chronic anticoagulation 09/29/2016 08/02/19 22 Colon cancer screening 01/21/2016 6 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 02/18/2015 09/08/2016 CKD (chronic kidney disease) stage 3, GFR 30-59 ml/min 12/16/2013 03/29/2021 Other symptoms involving ner vous and musculoskeletal systems(781.99) 07/16/2013 09/08/2016 Statin myopathy 01/22/2011 12/16/2013 Other physical therapy 07/16/2010 7 Hypertension 06/03/2010 03/20/2017 Cellulitis and abscess of toe, unspecified 05/2309/08/2016 Other benign neoplasm of con nective and other soft tissue of unspecified site 01/21/2008 09/08/2016 Obesity, unspecified 05/14/2007 11/10/2017 Pain in limb 01/11/2007 09/08/2016 Onychia and paronychia of toe 01/10/2007 Pain in joint, lower leg 09/19/2006 017 Iron deficiency anemia, unspecified 06/12/2006 09/08/2016 Need for prophylactic hormon e replacement therapy (postmenopausal) 12/30/2005 09/08/2016 Mixed hyperlipidemia 12/30/2005 03/20/2017 Type II or unspecified type diabetes mellitus without mention of complication, not stated as uncontrolled 12/30/2005 Migraine without aura 09/08/2016 documented as of this encounter (statuses as of 02/14/2022) [facility] B[facility]- Primary Other B-complex deficiencies [facility] Diagnosis Onychomycosis- Primary Dermatophytosis of nail Pain in toe of right foot Pain in limb Pain in toe of left foot Pain in limb Diabetic polyneuropathy associated with type 2 diabetes mellitus (HCC) [facility] Diagnosis Type 2 diabetes mellitus 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 neuropathy, unspecified whether lobsterman insulin use (HCC) [facility] Diagnosis Anemia due to stage 3b chronic kidney disease (HCC)- Primary Iron deficiency anemia, unspecified iron deficiency anemia type [facility] Diagnosis B12 deficiency- Primary Other B-complex deficiencies [facility]* Diagnosis Anemia due to stage 3b chronic kidney disease (HCC)- Primary B12 deficiency Other B-complex deficiencies [facility] Diagnosis Secondary hypertension due to renal disease Other secondary hypertension, unspecified [facility] Diagnosis COVID-19- Primary [facility] Diagnosis B12 deficiency- Primary Other B-complex deficiencies [facility] Diagnosis B12 deficiency- Primary Other B-complex deficiencies [facility] Diagnosis Onychomycosis- Primary Dermatophytosis of nail Pain in toe of right foot Pain in limb Pain in toe of left foot Pain in limb Diabetic polyneuropathy associated with type 2 diabetes mellitus (HCC) Hammer toes of both feet [facility] Diagnosis Diabetes mellitus due to underlying condition 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 neuropathy, with long-term current use of insulin (HCC) [facility] Iron deficiency anemia, unspecified iron deficiency anemia type- Primary Secondary hypertension due to renal disease Other secondary hypertension, unspecified Cardiomyopathy, nonischemic (HCC) Other primary cardiomyopathies Paroxysmal atrial fibrillation (HCC) Atrial fibrillation Statin myopathy Toxic myopathy PVD (peripheral vascular disease) (HCC) Peripheral vascular disease, unspecified DAYANA (obstructive sleep apnea) Obstructive sleep apnea (adult) (pediatric) Hyperparathyroidism due to vitamin D deficiency (HCC) Secondary hyperparathyroidism, non-renal Type 2 diabetes mellitus 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 neuropathy, unspecified whether lobsterman insulin use (HCC) Type 2 diabetes mellitus with stage 3b chronic kidney disease, without long-term current use of insulin (HCC) Other specified hypothyroidism Stress reaction Unspecified acute reaction to stress Anxiety state Anxiety state, unspecified B12 deficiency Other B-complex deficiencies Anemia due to stage 3b chronic kidney disease (HCC) Bronchitis Bronchitis, not specified as acute or chronic [facility] Diagnosis B12 deficiency- Primary Other B-complex deficiencies [facility] Diagnosis Bacterial pneumonia- Primary Bacterial pneumonia, unspecified Type 2 diabetes mellitus 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 polyneuropathy, without long-term current use of insulin (HCC) Cardiomyopathy, nonischemic (HCC) Other primary cardiomyopathies Congestive heart failure, unspecified HF chronicity, unspecified heart failure type ([facility]) [facility] Diagnosis Renal insufficiency- Primary Unspecified disorder of kidney and ureter [facility] Diagnosis Fall, initial encounter- Primary [facility] Diagnosis Acute right ankle pain- Primary Leg swelling Swelling of limb [facility]* Diagnosis Leg swelling Swelling of limb [facility] Diagnosis B12 deficiency- Primary Other B-complex deficiencies [facility] Diagnosis Type 2 diabetes mellitus 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 polyneuropathy, without long-term current use of insulin (HCC)- Primary Paroxysmal atrial fibrillation (HCC) Atrial fibrillation Pure hypercholesterolemia Cardiomyopathy, nonischemic (HCC) Other primary cardiomyopathies Type 2 diabetes mellitus 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 peripheral angiopathy without gangrene, without long-term current use of insulin (HCC) Other specified hypothyroidism Stage 3b chronic kidney disease (HCC) Cellulitis of right lower extremity Cellulitis and abscess of leg, except foot [facility] Diagnosis Type 2 diabetes mellitus 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 polyneuropathy, without long-term current use of insulin (HCC)- Primary Pure hypercholesterolemia [facility]* Diagnosis Type 2 diabetes mellitus with stage 3b chronic kidney disease, without long-term current use of insulin (HCC)- Primary Cellulitis of left lower extremity Cellulitis and abscess of leg, except foot [facility] Diagnosis Type 2 diabetes mellitus 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 polyneuropathy, without long-term current use of insulin ([facility]) [facility]* Diagnosis Diabetes mellitus due to underlying condition 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 neuropathy, with long-term current use of insulin ([facility]) [facility]* Diagnosis Febrile illness, acute- Primary Fever, unspecified Bronchitis Bronchitis, not specified as acute or chronic [facility]* Diagnosis Anemia due to stage 3a chronic kidney disease (HCC) [facility]* Diagnosis Pneumonia of right lower lobe due to infectious organism- Primary Thrush (oral) Herpes labialis Herpes 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 [facility] Diagnosis Anemia due to stage 3b chronic kidney disease (HCC)- Primary documented in this encounter [facility]* Diagnosis Bacterial pneumonia- Primary Bacterial pneumonia, unspecified Secondary hypertension due to renal disease Other secondary hypertension, unspecified Type 2 diabetes mellitus 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 polyneuropathy, without long-term current use of insulin (HCC) Gout, unspecified cause, unspecified chronicity, unspecified site Paroxysmal atrial fibrillation (HCC) Atrial fibrillation Type 2 diabetes mellitus 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 peripheral angiopathy without gangrene, without long-term current use of insulin (HCC) Pure hypercholesterolemia PVD (peripheral vascular disease) (HCC) Peripheral vascular disease, unspecified Cardiomyopathy, nonischemic (HCC) Other primary cardiomyopathies DAYANA (obstructive sleep apnea) Obstructive sleep apnea (adult) (pediatric) B12 deficiency Other B-complex deficiencies Type 2 diabetes mellitus with stage 3b chronic kidney disease, without long-term current use of insulin (HCC) 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) Hyperparathyroidism due to vitamin D deficiency (HCC) Secondary hyperparathyroidism, non-renal Other specified hypothyroidism Iron deficiency anemia, unspecified iron deficiency anemia type Anxiety state Anxiety state, unspecified [facility] Diagnosis Finger pain, left- Primary Pain in limb [facility]* Diagnosis B12 deficiency- Primary Other B-complex deficiencies Secondary hypertension due to renal disease Other secondary hypertension, unspecified [facility]* Diagnosis Onychomycosis- Primary Dermatophytosis of nail Pain in toe of right foot Pain in limb Pain in toe of left foot Pain in limb Diabetic polyneuropathy associated with type 2 diabetes mellitus (HCC) Hammer toes of both feet [facility]* Diagnosis Secondary hypertension due to renal disease- Primary Other secondary hypertension, unspecified [facility]* Diagnosis Finger pain, left Pain in limb [facility]* Diagnosis Type 2 diabetes mellitus 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 polyneuropathy, without long-term current use of insulin (HCC)- Primary Paroxysmal atrial fibrillation (HCC) Atrial fibrillation Pure hypercholesterolemia Type 2 diabetes mellitus 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 peripheral angiopathy without gangrene, without long-term current use of insulin (HCC) DAYANA (obstructive sleep apnea) Obstructive sleep apnea (adult) (pediatric) B12 deficiency Other B-complex deficiencies Type 2 diabetes mellitus with stage 3b chronic kidney disease, without long-term current use of insulin (HCC) Hyperparathyroidism due to vitamin D deficiency (HCC) Secondary hyperparathyroidism, non-renal Other specified hypothyroidism Anemia, unspecified type [facility]* Diagnosis B12 deficiency- Primary Other B-complex deficiencies [facility]* Diagnosis Type 2 diabetes mellitus 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 neuropathy, unspecified whether usp insulin use (HCC) [facility]* Diagnosis Onychomycosis- Primary Dermatophytosis of nail Pain in toe of right foot Pain in limb Pain in toe of left foot Pain in limb Diabetic polyneuropathy associated with type 2 diabetes mellitus (HCC) [facility]* Diagnosis Anemia, unspecified type- Primary Bronchitis Bronchitis, not specified as acute or chronic [facility] Diagnosis Anemia, unspecified type- Primary [facility]* Diagnosis B12 deficiency- Primary Other B-complex deficiencies [facility]* Diagnosis Type 2 diabetes mellitus 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 polyneuropathy, without long-term current use of insulin (HCC)- Primary Paroxysmal atrial fibrillation (HCC) Atrial fibrillation Cardiomyopathy, nonischemic (HCC) Other primary cardiomyopathies Type 2 diabetes mellitus 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 peripheral angiopathy without gangrene, without long-term current use of insulin (HCC) Type 2 diabetes mellitus with stage 3b chronic kidney disease, without long-term current use of insulin (HCC) Low serum albumin Iron deficiency anemia, unspecified iron deficiency anemia type DAYANA (obstructive sleep apnea) Obstructive sleep apnea (adult) (pediatric) Medication monitoring encounter Encounter for therapeutic drug monitoring [facility] Diagnosis B12 deficiency- Primary Other B-complex deficiencies [facility] Diagnosis Low serum albumin- Primary [facility] Diagnosis Secondary hypertension due to renal disease Other secondary hypertension, unspecified [facility] Diagnosis Dietary counseling- Primary Dietary surveillance and counseling Low serum albumin Obesity, Class I, BMI 30-34.9 Obesity, unspecified [facility]* Diagnosis Anemia, unspecified type Iron deficiency anemia, unspecified iron deficiency anemia type [facility] Diagnosis B12 deficiency- Primary Other B-complex deficiencies [facility]* Diagnosis Closed nondisplaced transverse fracture of shaft of right tibia with delayed healing, subsequent encounter- Primary Type 2 diabetes mellitus 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 polyneuropathy, without long-term current use of insulin (HCC) Paroxysmal atrial fibrillation (HCC) Atrial fibrillation Secondary hypertension due to renal disease Other secondary hypertension, unspecified Cardiomyopathy, nonischemic (HCC) Other primary cardiomyopathies Type 2 diabetes mellitus 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 peripheral angiopathy without gangrene, without long-term current use of insulin (HCC) Heart failure, unspecified HF chronicity, unspecified heart failure type (HCC) DAYANA (obstructive sleep apnea) Obstructive sleep apnea (adult) (pediatric) B12 deficiency Other B-complex deficiencies Stage 3b chronic kidney disease (HCC) Hyperparathyroidism due to vitamin D deficiency (HCC) Secondary hyperparathyroidism, non-renal Other specified hypothyroidism Iron deficiency anemia, unspecified iron deficiency anemia type Stenosis of right carotid artery Occlusion and stenosis of carotid artery without mention of cerebral infarction documented in this encounter [facility]* Diagnosis Febrile illness, acute Fever, unspecified Bronchitis Bronchitis, not specified as acute or chronic documented in this encounter [facility]* Diagnosis Contusion of right great toe without damage to nail, initial encounter documented in this encounter [facility]* Diagnosis Anemia, unspecified type- Primary documented in this encounter [facility]* Diagnosis Anemia due to stage 3b chronic kidney disease (HCC)- Primary documented in this encounter [facility]* Diagnosis Onychomycosis- Primary Dermatophytosis of nail Pain in toe of right foot Pain in limb Pain in toe of left foot Pain in limb Diabetic polyneuropathy associated with type 2 diabetes mellitus (HCC) documented in this encounter [facility] for referral (narrative)* Diagnostic Procedure Only (Urgent) - Closed Specialty Diagnoses / Procedures Referred By Contac t Referred To Contact US IMAGING Diagnoses Leg swelling Procedures US DVT LOWER RT DUP-SCAN XTR VEINS UNILATERAL/LIMITED STUDY Flor Boyle APRN.[employer] [address] [place] [address] Us Imaging Referral ID Status Reason Start Date Expiration Date V isits Requested Visits Authorized [id number] Closed Auto-Generate d Referral 01/24/2022 02/23/2023 1 1 * Diagnostic Procedure Only (Urgent) - Closed Specialty Diagnoses / Procedures Referred By Contac t Referred To Contact XR IMAGING Diagnoses Acute right ankle pain Procedures XR ANKLE GENERAL 3V AP/LAT/OBL RIGHT RADEX ANKLE COMPLETE MINIMUM 3 VIEWS Flor Boyle APRN.[employer] [address] [place] [address] Xr Imaging Referral ID Status Reason Start Date Expiration Date V isits Requested Visits Authorized [id number] Closed Auto-Generate d Referral 01/24/2022 02/23/2023 1 1 [facility] for referral (narrative)* Diagnostic Procedure Only (Urgent) - Closed Specialty Diagnoses / Procedures Referred By Contac t Referred To Contact US IMAGING Diagnoses Leg swelling Procedures US DVT LOWER RT DUP-SCAN XTR VEINS UNILATERAL/LIMITED STUDY Flor Boyle APRN.CNP [address] [place] [address] Us Imaging Referral ID Status Reason Start Date Expiration Date V isits Requested Visits Authorized [id number] Closed Auto-Generate d Referral 01/24/2022 02/23/2023 1 1 [facility] for referral (narrative)* Diagnostic Procedure Only (Urgent) - Closed Specialty Diagnoses / Procedures Referred By Contac t Referred To Contact XR IMAGING Diagnoses Contusion of right great toe without damage to nail, initial encounter Procedures XR TOE AP/LAT/OBL RIGHT RADEX TOE MINIMUM 2 VIEWS Dali [address] [place] [address] [place] [address] Referral ID Status Reason Start Date Expiration Date V isits Requested Visits Authorized [id number] Closed Auto-Generate d Referral 01/20/2023 02/19/2024 1 1 [facility] for visit Narrative* Diagnostic Procedure Only (Urgent) - Closed Specialty Diagnoses / Procedures Referred By Contac t Referred To Contact XR IMAGING Diagnoses Contusion of right great toe without damage to nail, initial encounter Procedures XR TOE AP/LAT/OBL RIGHT RADEX TOE MINIMUM 2 VIEWS Dali Sepulveda [address] [place] [address] [place] [address] Referral ID Status Reason Start Date Expiration Date V isits Requested Visits Authorized [id number] Closed Auto-Generate d Referral 01/20/2023 02/19/2024 1 1 [facility] Summary Purpose Family History No Family History Records FoundNo Family History Records FoundNo Family History Records FoundNo Family History Records FoundNo Family History Records Found Advance Directives No Advanced Directives Records FoundDocuments on File Type Date Recorded Patient Window Tinter Expl anation Advance Directive(s) 01/21/2016 7:59 AM Advance Directive(s) 03/30/2015 11:25 AM Documents on File Type Date Recorded Patient Window Tinter Expl anation Advance Directive(s) 03/30/2015 11:25 AM Documents on File Type Date Recorded Patient Window Tinter Expl anation Advance Directive(s) 03/30/2015 11:25 AM Medications Administered Section Active Administered Medications - up to 3 most recent administrations Medication Order MAR Action Action Date Dose Rate Site cyanocobalamin 1,000 mcg injection 1,000 mcg, INTRAMUSCULAR, EVERY 4 WEEKS, 12 doses, First dose on Mon08/30/21 at 0000, Last dose on Mon07/04/22 at 0000 Given 08/30/2021 9:07 AM EDT 1,000 mcg Deltoid, Left Active Administered Medications - up to 3 most recent administrations Medication Order MAR Action Action Date Dose Rate Site cyanocobalamin 1,000 mcg injection 1,000 mcg, INTRAMUSCULAR, EVERY 4 WEEKS, 12 doses, First dose on Mon08/30/21 at 0000, Last dose on Mon07/04/22 at 0000 Given 10/01/2021 10:04 AM EDT 1,000 mcg Deltoid, Right Active Administered Medications - up to 3 most recent administrations Medication Order MAR Action Action Date Dose Rate Site cyanocobalamin 1,000 mcg injection 1,000 mcg, INTRAMUSCULAR, EVERY 4 WEEKS, 12 doses, First dose on Mon08/30/21 at 0000, Last dose on Mon07/04/22 at 0000 Given 11/05/2021 10:03 AM EDT 1,000 mcg Deltoid, Left Active Administered Medications - up to 3 most recent administrations Medication Order MAR Action Action Date Dose Rate Site cyanocobalamin 1,000 mcg injection 1,000 mcg, INTRAMUSCULAR, EVERY 4 WEEKS, 12 doses, First dose on Mon08/30/21 at 0000, Last dose on Mon07/04/22 at 0000 Given 12/02/2021 1:31 PM EDT 1,000 mcg Deltoid, Right Active Administered Medications - up to 3 most recent administrations Medication Order MAR Action Action Date Dose Rate Site cyanocobalamin 1,000 mcg injection 1,000 mcg, INTRAMUSCULAR, EVERY 4 WEEKS, 12 doses, First dose on Mon08/30/21 at 0000, Last dose on Mon07/04/22 at 0000 Given 12/30/2021 1:02 PM EDT 1,000 mcg Deltoid, Left Active Administered Medications - up to 3 most recent administrations Medication Order MAR Action Action Dose Rate Site cyanocobalamin 1,000 mcg injection 1,000 mcg, INTRAMUSCULAR, EVERY 4 WEEKS, 12 doses, First dose on Mon08/30/21 at 0000, Last dose on Mon07/04/22 at 0000 Given 01/27/2022 1:36 PM EDT 1,000 mcg Deltoid, Right Active Administered Medications - up to 3 most recent administrations Medication Order MAR Action Dose Rate Site cyanocobalamin 1,000 mcg injection 1,000 mcg, INTRAMUSCULAR, EVERY 4 WEEKS, 12 doses, First dose on Mon08/30/21 at 0000, Last dose on Mon07/04/22 at 0000 Given 03/24/2022 1:46 PM EDT 1,000 mcg Deltoid, Right Active Administered Medications - up to 3 most recent administrations Medication Order MAR Action Dose Rate Site cyanocobalamin 1,000 mcg injection 1,000 mcg, INTRAMUSCULAR, EVERY 4 WEEKS, 12 doses, First dose on Mon08/30/21 at 0000, Last dose on Mon07/04/22 at 0000 Given 05/03/2022 1:51 PM EST 1,000 mcg Deltoid, Left Active Administered Medications - up to 3 most recent administrations Medication Order MAR Action Dose Rate Site cyanocobalamin 1,000 mcg injection 1,000 mcg, INTRAMUSCULAR, EVERY 4 WEEKS, 12 doses, First dose on Mon05/24/22 at 1330, Last dose on Mon03/28/23 at 1330 Given 05/24/2022 1:25 PM EST 1,000 mcg Deltoid, Right Active Administered Medications - up to 3 most recent administrations Medication Order MAR Action Dose Rate Site cyanocobalamin 1,000 mcg injection 1,000 mcg, INTRAMUSCULAR, EVERY 4 WEEKS, 12 doses, First dose on Mon05/24/22 at 1330, Last dose on Mon03/28/23 at 1330 Given 06/28/2022 1:55 PM EST 1,000 mcg Deltoid, Left Inactive Administered Medications - up to 3 most recent administrations Medication Order MAR Action Action Date Dose Rate Site cyanocobalamin 1,000 mcg injection 1,000 mcg, INTRAMUSCULAR, ONCE, 1 dose, On Mon08/23/22 at 1600 Given 08/23/2022 3:57 PM EDT 1,000 mcg Deltoid, Left Active Administered Medications - up to 3 most recent administrations Medication Order MAR Action Action Date Dose Rate Site cyanocobalamin 1,000 mcg injection 1,000 mcg, INTRAMUSCULAR, EVERY 4 WEEKS, 12 doses, First dose on Mon05/24/22 at 1330, Last dose on Mon03/28/23 at 1330 Given 09/22/2022 1:45 PM EDT 1,000 mcg Deltoid, Right Active Administered Medications - up to 3 most recent administrations Medication Order MAR Action Action Date Dose Rate Site cyanocobalamin 1,000 mcg injection 1,000 mcg, INTRAMUSCULAR, EVERY 4 WEEKS, 12 doses, First dose on Mon05/24/22 at 1330, Last dose on Mon03/28/23 at 1330 Given 11/17/2022 1:09 PM EDT 1,000 mcg Deltoid, Right Active Administered Medications - up to 3 most recent administrations Medication Order MAR Action Action Date Dose Rate Site cyanocobalamin 1,000 mcg injection 1,000 mcg, INTRAMUSCULAR, EVERY 4 WEEKS, 12 doses, First dose on Mon05/24/22 at 1330, Last dose on Mon03/28/23 at 1330 Given 12/16/2022 10:32 AM EDT 1,000 mcg Deltoid, Left Active Administered Medications - up to 3 most recent administrations Medication Order MAR Action Action Date Dose Rate Site cyanocobalamin 1,000 mcg injection 1,000 mcg, INTRAMUSCULAR, EVERY 4 WEEKS, 12 doses, First dose on Mon05/24/22 at 1330, Last dose on Mon03/28/23 at 1330 Given 01/13/2023 10:40 AM EDT 1,000 mcg Deltoid, Right Inactive Administered Medications - up to 3 most recent administrations Medication Order MAR Action Action Date Dose Rate Site iron sucrose iv piggyback 200 mg in NaCl 0.9% 100 mL (VENOFER) 200 mg, INTRAVENOUS, at 400 mL/hr, Administer over 15 Minutes, ONCE, 1 dose, On Chanda 05/11/23 at 1500, Please conduct a 30 minute post dose observation. Refrigerate New Bag/Syringe/Bottle 05/11/2023 2:37 PM EST 200 mg 400 mL/hr Reason for Referral Specialty Diagnoses / Procedures Referred By Contac t Referred To Contact Orthopedics Diagnoses Fall, initial encounter Procedures CONSULT TO ORTHOPAEDICS OFFICE/OUTPATIENT [facility] MDM 60-74 MINUTES Ana Bell APRN.[employer] [address] [place] [address] Referral ID Status Reason Start Date Expiration Date Visits Requested Visits Authorized [id number] Pending Review PCP Requested Referral 01/14/2022 01/14/2023 1 1 Specialty Diagnoses / Procedures Referred By Contac t Referred To Contact XR IMAGING Diagnoses Fall, initial encounter Procedures XR ANKLE GENERAL 3V AP/LAT/OBL RIGHT RADEX ANKLE COMPLETE MINIMUM 3 VIEWS Ana Bell APRN.[employer] [address] [place] [address] Xr Imaging Referral ID Status Reason Start Date Expiration Date V isits Requested Visits Authorized [id number] Closed Auto-Generate d Referral 01/14/2022 02/13/2023 1 1 Specialty Diagnoses / Procedures Referred By Contac t Referred To Contact XR IMAGING Diagnoses Fall, initial encounter Procedures XR FOOT GENERAL 3V AP/LAT/OBL RIGHT RADEX FOOT COMPLETE MINIMUM 3 VIEWS Ana Bell APRN.[employer] [address] [place] [address] Xr Imaging Referral ID Status Reason Start Date Expiration Date V isits Requested Visits Authorized [id number] Closed Auto-Generate d Referral 01/14/2022 02/13/2023 1 1 Specialty Diagnoses / Procedures Referred By Contac t Referred To Contact Orthopedics Diagnoses Finger pain, left Procedures CONSULT TO ORTHOPAEDICS OFFICE/OUTPATIENT [facility] MDM 60-74 MINUTES Chun Brewster MD [address] [place] [address] Referral ID Status Reason Start Date Expiration Date Visits Requested Visits Authorized [id number] Pending Review PCP Requested Referral 06/08/2022 06/08/2023 1 1 Specialty Diagnoses / Procedures Referred By Contac t Referred To Contact XR IMAGING Diagnoses Finger pain, left Procedures XR DIGIT GENERAL 3V FRONTAL/LAT/OBL LEFT RADEX FINGR MINIMUM 2 VIEWS Chun Brewster MD [address] [place] [address] Xr Imaging Referral ID Status Reason Start Date Expiration Date V isits Requested Visits Authorized [id number] Closed Auto-Generate d Referral 06/08/2022 07/08/2023 1 1 Specialty Diagnoses / Procedures Referred By Contac t Referred To Contact Diagnoses Anemia, unspecified type Procedures CONSULT TO HEMATOLOGY/ONCOLOGY OFFICE/OUTPATIENT [facility] 60-74 MINUTES Monae Bowser APRN.CNP [address] [place] [address] Referral ID Status Reason Start Date Expiration Date Visits Requested Visits Authorized [id number] Pending Review PCP Requested Referral 11/08/2022 11/08/2023 1 1 Specialty Diagnoses / Procedures Referred By Contac t Referred To Contact Hematology Diagnoses Iron deficiency anemia, unspecified iron deficiency anemia type Procedures CONSULT TO HEMATOLOGY OFFICE/OUTPATIENT [facility] 60-74 MINUTES Stefan Moore MD [address] [place] [address] Referral ID Status Reason Start Date Expiration Date Visits Requested Visits Authorized [id number] Pending Review PCP Requested Referral 12/10/2022 12/10/2023 1 1 Specialty Diagnoses / Procedures Referred By Contac t Referred To Contact Nutrition Diagnoses Low serum albumin Procedures CONSULT TO NUTRITION THERAPY MEDICAL NUTRITION ASSMT&IVNTJ INDIV EACH 15 MO MEDICAL NUTRITION ASSMT&IVNTJ INDIV EACH 15 MO MEDICAL NUTRITION ASSMT&IVNTJ INDIV EACH 15 MO MEDICAL NUTRITION ASSMT&IVNTJ INDIV EACH 15 MO Stefan Moore MD [address] [place] [address] Referral ID Status Reason Start Date Expiration Date Visits Requested Visits Authorized [id number] Pending Review PCP Requested Referral 12/10/2022 12/10/2023 1 1 Additional Source Comments INFORMATION SOURCE (unrecogn ized section and content) DATE CREATED AUTHOR AUTHOR'S ORGANIZ ATION 11/29/2017 [facility] DATE CREATED AUTHOR AUTHOR'S ORGANIZ ATION 11/14/2020 [facility] DATE CREATED AUTHOR AUTHOR'S ORGANIZ ATION 04/16/2023 [facility] ([place]) DATE CREATED AUTHOR AUTHOR'S ORGANIZ ATION 06/01/2023 [facility] Source Comments (unrecognize d section and content) In the event this informatio n is protected by the Federal Confidentiality of Alcohol and Drug Abuse Patient Records regulations: The Federal rules restrict any use of the information to criminally investigate or prosecute any alcohol or drug abuse patient.[facility] the event this information is protected by the Federal Confidentiality of Alcohol and Drug Abuse Patient Records regulations: The Federal rules restrict any use of the information to criminally investigate or prosecute any alcohol or drug abuse patient.[facility] CenterIn the event this information is protected by the Federal Confidentiality of Alcohol and Drug Abuse Patient Records regulations: The Federal rules restrict any use of the information to criminally investigate or prosecute any alcohol or drug abuse patient.[facility] CenterIn the event this information is protected by the Federal Confidentiality of Alcohol and Drug Abuse Patient Records regulations: The Federal rules restrict any use of the information to criminally investigate or prosecute any alcohol or drug abuse patient.[facility] CenterIn the event this information is protected by the Federal Confidentiality of Alcohol and Drug Abuse Patient Records regulations: The Federal rules restrict any use of the information to criminally investigate or prosecute any alcohol or drug abuse patient.[facility] CenterIn the event this information is protected by the Federal Confidentiality of Alcohol and Drug Abuse Patient Records regulations: The Federal rules restrict any use of the information to criminally investigate or prosecute any alcohol or drug abuse patient.[facility] CenterIn the event this information is protected by the Federal Confidentiality of Alcohol and Drug Abuse Patient Records regulations: The Federal rules restrict any use of the information to criminally investigate or prosecute any alcohol or drug abuse patient.[facility] CenterIn the event this information is protected by the Federal Confidentiality of Alcohol and Drug Abuse Patient Records regulations: The Federal rules restrict any use of the information to criminally investigate or prosecute any alcohol or drug abuse patient.[facility] CenterIn the event this information is protected by the Federal Confidentiality of Alcohol and Drug Abuse Patient Records regulations: The Federal rules restrict any use of the information to criminally investigate or prosecute any alcohol or drug abuse patient.[facility] CenterIn the event this information is protected by the Federal Confidentiality of Alcohol and Drug Abuse Patient Records regulations: The Federal rules restrict any use of the information to criminally investigate or prosecute any alcohol or drug abuse patient.[facility] CenterIn the event this information is protected by the Federal Confidentiality of Alcohol and Drug Abuse Patient Records regulations: The Federal rules restrict any use of the information to criminally investigate or prosecute any alcohol or drug abuse patient.[facility] CenterIn the event this information is protected by the Federal Confidentiality of Alcohol and Drug Abuse Patient Records regulations: The Federal rules restrict any use of the information to criminally investigate or prosecute any alcohol or drug abuse patient.[facility] CenterIn the event this information is protected by the Federal Confidentiality of Alcohol and Drug Abuse Patient Records regulations: The Federal rules restrict any use of the information to criminally investigate or prosecute any alcohol or drug abuse patient.[facility] CenterIn the event this information is protected by the Federal Confidentiality of Alcohol and Drug Abuse Patient Records regulations: The Federal rules restrict any use of the information to criminally investigate or prosecute any alcohol or drug abuse patient.[facility] CenterIn the event this information is protected by the Federal Confidentiality of Alcohol and Drug Abuse Patient Records regulations: The Federal rules restrict any use of the information to criminally investigate or prosecute any alcohol or drug abuse patient.[facility] CenterIn the event this information is protected by the Federal Confidentiality of Alcohol and Drug Abuse Patient Records regulations: The Federal rules restrict any use of the information to criminally investigate or prosecute any alcohol or drug abuse patient.[facility] CenterIn the event this information is protected by the Federal Confidentiality of Alcohol and Drug Abuse Patient Records regulations: The Federal rules restrict any use of the information to criminally investigate or prosecute any alcohol or drug abuse patient.[facility] CenterIn the event this information is protected by the Federal Confidentiality of Alcohol and Drug Abuse Patient Records regulations: The Federal rules restrict any use of the information to criminally investigate or prosecute any alcohol or drug abuse patient.[facility] CenterIn the event this information is protected by the Federal Confidentiality of Alcohol and Drug Abuse Patient Records regulations: The Federal rules restrict any use of the information to criminally investigate or prosecute any alcohol or drug abuse patient.[facility] CenterIn the event this information is protected by the Federal Confidentiality of Alcohol and Drug Abuse Patient Records regulations: The Federal rules restrict any use of the information to criminally investigate or prosecute any alcohol or drug abuse patient.[facility] CenterIn the event this information is protected by the Federal Confidentiality of Alcohol and Drug Abuse Patient Records regulations: The Federal rules restrict any use of the information to criminally investigate or prosecute any alcohol or drug abuse patient.[facility] CenterIn the event this information is protected by the Federal Confidentiality of Alcohol and Drug Abuse Patient Records regulations: The Federal rules restrict any use of the information to criminally investigate or prosecute any alcohol or drug abuse patient.[facility] CenterIn the event this information is protected by the Federal Confidentiality of Alcohol and Drug Abuse Patient Records regulations: The Federal rules restrict any use of the information to criminally investigate or prosecute any alcohol or drug abuse patient.[facility] CenterIn the event this information is protected by the Federal Confidentiality of Alcohol and Drug Abuse Patient Records regulations: The Federal rules restrict any use of the information to criminally investigate or prosecute any alcohol or drug abuse patient.[facility] CenterIn the event this information is protected by the Federal Confidentiality of Alcohol and Drug Abuse Patient Records regulations: The Federal rules restrict any use of the information to criminally investigate or prosecute any alcohol or drug abuse patient.[facility] CenterIn the event this information is protected by the Federal Confidentiality of Alcohol and Drug Abuse Patient Records regulations: The Federal rules restrict any use of the information to criminally investigate or prosecute any alcohol or drug abuse patient.[facility] CenterIn the event this information is protected by the Federal Confidentiality of Alcohol and Drug Abuse Patient Records regulations: The Federal rules restrict any use of the information to criminally investigate or prosecute any alcohol or drug abuse patient.[facility] CenterIn the event this information is protected by the Federal Confidentiality of Alcohol and Drug Abuse Patient Records regulations: The Federal rules restrict any use of the information to criminally investigate or prosecute any alcohol or drug abuse patient.[facility] CenterIn the event this information is protected by the Federal Confidentiality of Alcohol and Drug Abuse Patient Records regulations: The Federal rules restrict any use of the information to criminally investigate or prosecute any alcohol or drug abuse patient.[facility] CenterIn the event this information is protected by the Federal Confidentiality of Alcohol and Drug Abuse Patient Records regulations: The Federal rules restrict any use of the information to criminally investigate or prosecute any alcohol or drug abuse patient.[facility] CenterIn the event this information is protected by the Federal Confidentiality of Alcohol and Drug Abuse Patient Records regulations: The Federal rules restrict any use of the information to criminally investigate or prosecute any alcohol or drug abuse patient.[facility] CenterIn the event this information is protected by the Federal Confidentiality of Alcohol and Drug Abuse Patient Records regulations: The Federal rules restrict any use of the information to criminally investigate or prosecute any alcohol or drug abuse patient.[facility] CenterIn the event this information is protected by the Federal Confidentiality of Alcohol and Drug Abuse Patient Records regulations: The Federal rules restrict any use of the information to criminally investigate or prosecute any alcohol or drug abuse patient.[facility] CenterIn the event this information is protected by the Federal Confidentiality of Alcohol and Drug Abuse Patient Records regulations: The Federal rules restrict any use of the information to criminally investigate or prosecute any alcohol or drug abuse patient.[facility] CenterIn the event this information is protected by the Federal Confidentiality of Alcohol and Drug Abuse Patient Records regulations: The Federal rules restrict any use of the information to criminally investigate or prosecute any alcohol or drug abuse patient.[facility] CenterIn the event this information is protected by the Federal Confidentiality of Alcohol and Drug Abuse Patient Records regulations: The Federal rules restrict any use of the information to criminally investigate or prosecute any alcohol or drug abuse patient.[facility] CenterIn the event this information is protected by the Federal Confidentiality of Alcohol and Drug Abuse Patient Records regulations: The Federal rules restrict any use of the information to criminally investigate or prosecute any alcohol or drug abuse patient.[facility] CenterIn the event this information is protected by the Federal Confidentiality of Alcohol and Drug Abuse Patient Records regulations: The Federal rules restrict any use of the information to criminally investigate or prosecute any alcohol or drug abuse patient.[facility] CenterIn the event this information is protected by the Federal Confidentiality of Alcohol and Drug Abuse Patient Records regulations: The Federal rules restrict any use of the information to criminally investigate or prosecute any alcohol or drug abuse patient.[facility] CenterIn the event this information is protected by the Federal Confidentiality of Alcohol and Drug Abuse Patient Records regulations: The Federal rules restrict any use of the information to criminally investigate or prosecute any alcohol or drug abuse patient.[facility] CenterIn the event this information is protected by the Federal Confidentiality of Alcohol and Drug Abuse Patient Records regulations: The Federal rules restrict any use of the information to criminally investigate or prosecute any alcohol or drug abuse patient.[facility] CenterIn the event this information is protected by the Federal Confidentiality of Alcohol and Drug Abuse Patient Records regulations: The Federal rules restrict any use of the information to criminally investigate or prosecute any alcohol or drug abuse patient.[facility] CenterIn the event this information is protected by the Federal Confidentiality of Alcohol and Drug Abuse Patient Records regulations: The Federal rules restrict any use of the information to criminally investigate or prosecute any alcohol or drug abuse patient.[facility] CenterIn the event this information is protected by the Federal Confidentiality of Alcohol and Drug Abuse Patient Records regulations: The Federal rules restrict any use of the information to criminally investigate or prosecute any alcohol or drug abuse patient.[facility] CenterIn the event this information is protected by the Federal Confidentiality of Alcohol and Drug Abuse Patient Records regulations: The Federal rules restrict any use of the information to criminally investigate or prosecute any alcohol or drug abuse patient.[facility] CenterIn the event this information is protected by the Federal Confidentiality of Alcohol and Drug Abuse Patient Records regulations: The Federal rules restrict any use of the information to criminally investigate or prosecute any alcohol or drug abuse patient.[facility] CenterIn the event this information is protected by the Federal Confidentiality of Alcohol and Drug Abuse Patient Records regulations: The Federal rules restrict any use of the information to criminally investigate or prosecute any alcohol or drug abuse patient.[facility] CenterIn the event this information is protected by the Federal Confidentiality of Alcohol and Drug Abuse Patient Records regulations: The Federal rules restrict any use of the information to criminally investigate or prosecute any alcohol or drug abuse patient.[facility] CenterIn the event this information is protected by the Federal Confidentiality of Alcohol and Drug Abuse Patient Records regulations: The Federal rules restrict any use of the information to criminally investigate or prosecute any alcohol or drug abuse patient.[facility] CenterIn the event this information is protected by the Federal Confidentiality of Alcohol and Drug Abuse Patient Records regulations: The Federal rules restrict any use of the information to criminally investigate or prosecute any alcohol or drug abuse patient.[facility] CenterIn the event this information is protected by the Federal Confidentiality of Alcohol and Drug Abuse Patient Records regulations: The Federal rules restrict any use of the information to criminally investigate or prosecute any alcohol or drug abuse patient.[facility] CenterIn the event this information is protected by the Federal Confidentiality of Alcohol and Drug Abuse Patient Records regulations: The Federal rules restrict any use of the information to criminally investigate or prosecute any alcohol or drug abuse patient.[facility] CenterIn the event this information is protected by the Federal Confidentiality of Alcohol and Drug Abuse Patient Records regulations: The Federal rules restrict any use of the information to criminally investigate or prosecute any alcohol or drug abuse patient.[facility] CenterIn the event this information is protected by the Federal Confidentiality of Alcohol and Drug Abuse Patient Records regulations: The Federal rules restrict any use of the information to criminally investigate or prosecute any alcohol or drug abuse patient.[facility] CenterIn the event this information is protected by the Federal Confidentiality of Alcohol and Drug Abuse Patient Records regulations: The Federal rules restrict any use of the information to criminally investigate or prosecute any alcohol or drug abuse patient.[facility] CenterIn the event this information is protected by the Federal Confidentiality of Alcohol and Drug Abuse Patient Records regulations: The Federal rules restrict any use of the information to criminally investigate or prosecute any alcohol or drug abuse patient.[facility] CenterIn the event this information is protected by the Federal Confidentiality of Alcohol and Drug Abuse Patient Records regulations: The Federal rules restrict any use of the information to criminally investigate or prosecute any alcohol or drug abuse patient.[facility] CenterIn the event this information is protected by the Federal Confidentiality of Alcohol and Drug Abuse Patient Records regulations: The Federal rules restrict any use of the information to criminally investigate or prosecute any alcohol or drug abuse patient.[facility] CenterIn the event this information is protected by the Federal Confidentiality of Alcohol and Drug Abuse Patient Records regulations: The Federal rules restrict any use of the information to criminally investigate or prosecute any alcohol or drug abuse patient.[facility] CenterIn the event this information is protected by the Federal Confidentiality of Alcohol and Drug Abuse Patient Records regulations: The Federal rules restrict any use of the information to criminally investigate or prosecute any alcohol or drug abuse patient.[facility] CenterIn the event this information is protected by the Federal Confidentiality of Alcohol and Drug Abuse Patient Records regulations: The Federal rules restrict any use of the information to criminally investigate or prosecute any alcohol or drug abuse patient.[facility] CenterIn the event this information is protected by the Federal Confidentiality of Alcohol and Drug Abuse Patient Records regulations: The Federal rules restrict any use of the information to criminally investigate or prosecute any alcohol or drug abuse patient.[facility] CenterIn the event this information is protected by the Federal Confidentiality of Alcohol and Drug Abuse Patient Records regulations: The Federal rules restrict any use of the information to criminally investigate or prosecute any alcohol or drug abuse patient.[facility] CenterIn the event this information is protected by the Federal Confidentiality of Alcohol and Drug Abuse Patient Records regulations: The Federal rules restrict any use of the information to criminally investigate or prosecute any alcohol or drug abuse patient.[facility] CenterIn the event this information is protected by the Federal Confidentiality of Alcohol and Drug Abuse Patient Records regulations: The Federal rules restrict any use of the information to criminally investigate or prosecute any alcohol or drug abuse patient.[facility] CenterIn the event this information is protected by the Federal Confidentiality of Alcohol and Drug Abuse Patient Records regulations: The Federal rules restrict any use of the information to criminally investigate or prosecute any alcohol or drug abuse patient.[facility] CenterIn the event this information is protected by the Federal Confidentiality of Alcohol and Drug Abuse Patient Records regulations: The Federal rules restrict any use of the information to criminally investigate or prosecute any alcohol or drug abuse patient.[facility] CenterIn the event this information is protected by the Federal Confidentiality of Alcohol and Drug Abuse Patient Records regulations: The Federal rules restrict any use of the information to criminally investigate or prosecute any alcohol or drug abuse patient.[facility] CenterIn the event this information is protected by the Federal Confidentiality of Alcohol and Drug Abuse Patient Records regulations: The Federal rules restrict any use of the information to criminally investigate or prosecute any alcohol or drug abuse patient.[facility] CenterIn the event this information is protected by the Federal Confidentiality of Alcohol and Drug Abuse Patient Records regulations: The Federal rules restrict any use of the information to criminally investigate or prosecute any alcohol or drug abuse patient.[facility] CenterIn the event this information is protected by the Federal Confidentiality of Alcohol and Drug Abuse Patient Records regulations: The Federal rules restrict any use of the information to criminally investigate or prosecute any alcohol or drug abuse patient.[facility] CenterIn the event this information is protected by the Federal Confidentiality of Alcohol and Drug Abuse Patient Records regulations: The Federal rules restrict any use of the information to criminally investigate or prosecute any alcohol or drug abuse patient.[facility] CenterIn the event this information is protected by the Federal Confidentiality of Alcohol and Drug Abuse Patient Records regulations: The Federal rules restrict any use of the information to criminally investigate or prosecute any alcohol or drug abuse patient.[facility] CenterIn the event this information is protected by the Federal Confidentiality of Alcohol and Drug Abuse Patient Records regulations: The Federal rules restrict any use of the information to criminally investigate or prosecute any alcohol or drug abuse patient.[facility] CenterIn the event this information is protected by the Federal Confidentiality of Alcohol and Drug Abuse Patient Records regulations: The Federal rules restrict any use of the information to criminally investigate or prosecute any alcohol or drug abuse patient.[facility] CenterIn the event this information is protected by the Federal Confidentiality of Alcohol and Drug Abuse Patient Records regulations: The Federal rules restrict any use of the information to criminally investigate or prosecute any alcohol or drug abuse patient.[facility] CenterIn the event this information is protected by the Federal Confidentiality of Alcohol and Drug Abuse Patient Records regulations: The Federal rules restrict any use of the information to criminally investigate or prosecute any alcohol or drug abuse patient.[facility] CenterIn the event this information is protected by the Federal Confidentiality of Alcohol and Drug Abuse Patient Records regulations: The Federal rules restrict any use of the information to criminally investigate or prosecute any alcohol or drug abuse patient.[facility] CenterIn the event this information is protected by the Federal Confidentiality of Alcohol and Drug Abuse Patient Records regulations: The Federal rules restrict any use of the information to criminally investigate or prosecute any alcohol or drug abuse patient.[facility] CenterIn the event this information is protected by the Federal Confidentiality of Alcohol and Drug Abuse Patient Records regulations: The Federal rules restrict any use of the information to criminally investigate or prosecute any alcohol or drug abuse patient.[facility] CenterIn the event this information is protected by the Federal Confidentiality of Alcohol and Drug Abuse Patient Records regulations: The Federal rules restrict any use of the information to criminally investigate or prosecute any alcohol or drug abuse patient.[facility] CenterIn the event this information is protected by the Federal Confidentiality of Alcohol and Drug Abuse Patient Records regulations: The Federal rules restrict any use of the information to criminally investigate or prosecute any alcohol or drug abuse patient.[facility] CenterIn the event this information is protected by the Federal Confidentiality of Alcohol and Drug Abuse Patient Records regulations: The Federal rules restrict any use of the information to criminally investigate or prosecute any alcohol or drug abuse patient.[facility] CenterIn the event this information is protected by the Federal Confidentiality of Alcohol and Drug Abuse Patient Records regulations: The Federal rules restrict any use of the information to criminally investigate or prosecute any alcohol or drug abuse patient.[facility] CenterIn the event this information is protected by the Federal Confidentiality of Alcohol and Drug Abuse Patient Records regulations: The Federal rules restrict any use of the information to criminally investigate or prosecute any alcohol or drug abuse patient.[facility] CenterIn the event this information is protected by the Federal Confidentiality of Alcohol and Drug Abuse Patient Records regulations: The Federal rules restrict any use of the information to criminally investigate or prosecute any alcohol or drug abuse patient.[facility] CenterIn the event this information is protected by the Federal Confidentiality of Alcohol and Drug Abuse Patient Records regulations: The Federal rules restrict any use of the information to criminally investigate or prosecute any alcohol or drug abuse patient.[facility] CenterIn the event this information is protected by the Federal Confidentiality of Alcohol and Drug Abuse Patient Records regulations: The Federal rules restrict any use of the information to criminally investigate or prosecute any alcohol or drug abuse patient.[facility] CenterIn the event this information is protected by the Federal Confidentiality of Alcohol and Drug Abuse Patient Records regulations: The Federal rules restrict any use of the information to criminally investigate or prosecute any alcohol or drug abuse patient.[facility] CenterIn the event this information is protected by the Federal Confidentiality of Alcohol and Drug Abuse Patient Records regulations: The Federal rules restrict any use of the information to criminally investigate or prosecute any alcohol or drug abuse patient.[facility] CenterIn the event this information is protected by the Federal Confidentiality of Alcohol and Drug Abuse Patient Records regulations: The Federal rules restrict any use of the information to criminally investigate or prosecute any alcohol or drug abuse patient.[facility] CenterIn the event this information is protected by the Federal Confidentiality of Alcohol and Drug Abuse Patient Records regulations: The Federal rules restrict any use of the information to criminally investigate or prosecute any alcohol or drug abuse patient.[facility] CenterIn the event this information is protected by the Federal Confidentiality of Alcohol and Drug Abuse Patient Records regulations: The Federal rules restrict any use of the information to criminally investigate or prosecute any alcohol or drug abuse patient.[facility] Reason for Visit (unrecogniz ed section and content) Specialty Diagnoses / Procedures Referred By Contac t Referred To Contact Diagnoses Anemia, unspecified type Procedures CONSULT TO HEMATOLOGY/ONCOLOGY OFFICE/OUTPATIENT [facility] 60-74 MINUTES Monae Bowser, ROTARY DERRICK OPERATOR.[employer] DEVELOPER [address] [place] [address] Referral ID Status Reason Start Date Expiration Date Visits Requested Visits Authorized [id number] Pending Review PCP Requested Referral 11/08/2022 11/08/2023 1 1 Reason Comments B-12 Injection Reason Comments Established Patient Nail Care Reason Onset Date Comments Refill Request 08/26/2021 Reason Onset Date Comments Refill Request 10/02/2021 Reason Onset Date Comments Refill Request 10/08/2021 Reason Comments Patient Question Reason Comments Social Work Services Reason Comments Patient Question COVID positive Reason Comments Covid19 Concern Reason Comments Established Patient Diabetic Foot Care Reason Onset Date Comments Refill Request 12/09/2021 Reason Onset Date Comments Refill Request 12/16/2021 Reason Comments non-productive cough x 48 hours runny nose x 48 hours Reason Comments Results Reason Comments Cough follow up Headache Specialty Diagnoses / Procedures Referred By Contac t Referred To Contact Radiology / RADIO MRI [facility] MOB Diagnoses MRI LUMBAR WO CONTRAST-ARTHROPATHY OF LUMBAR FACET, 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, VALID 12/29/2021-06/27/2022 OUTSIDE ORDER SCANNED AND PLACED IN SYNGO Procedures MRI WO M[address]ESH [address] Prebish, Fab[place] [address] [place] [id number] Radio Mri [facility] [address] [place] [phone] Referral ID Status Reason Start Date Expiration Date V isits Requested Visits Authorized [id number] Outside PCP 12/29/2021 06/27/2022 1 1 Reason Comments right foot and toe pain Fell last night Reason Comments Acute Visit right leg swelling Reason Comments Results Xray and US DVT Reason Comments Radiology US Specialty Diagnoses / Procedures Referred By Contgeorgia t Referred To Contact US IMAGING Diagnoses Leg swelling Procedures US DVT LOWER RT DUP-SCAN XTR VEINS UNILATERAL/LIMITED STUDY Flor Boyle APRN.[employer] DEVELOPER [address] [place] [id number] Us Imaging Referral ID Status Reason Start Date Expiration Date V isits Requested Visits Authorized [id number] Closed Auto-Generate d Referral 01/24/2022 02/23/2023 1 1 Reason Comments 6 Month Exam Reason Comments 2 week follow up - recheck legs Reason Comments lab appt. Reason Onset Date Comments Refill Request 03/03/2022 Reason Comments Patient Request Reason Comments ED Follow-up [facility] 03/27/22 DX:Rhea l. Started URI symptoms on 03/23/22. Cough,congestion, runny nose, fever TMAX 102.3, diarrhea, body aches. Reason Comments [facility] Reason Onset Date Comments Refill Request 03/29/2022 Reason Comments Results Chest xray Reason Comments Patient Update Reason Comments Cough Mouth/Lip Problem THRUSH Reason Comments Medication Problem Reason Comments Established Patient 6 month exam Reason Comments Follow Up Reason Comments Handicap Placard Reason Comments Finger Injury L hand middle finger injury x last night, fell and caught self with hand Reason Comments B-12 Injection Blood Pressure Check Reason Comments Blood Pressure Check Reason Comments Blood Pressure Check Reason Comments New Pain Specialty Diagnoses / Procedures Referred By Contac t Referred To Contact Orthopedics Diagnoses Finger pain, left Procedures CONSULT TO ORTHOPAEDICS OFFICE/OUTPATIENT NEW HIGH MDM 60-74 MINUTES Chun Brewster MD [address] [place] [address] Referral ID Status Reason Start Date Expiration Date Visits Requested Visits Authorized [id number] Pending Review PCP Requested Referral 06/08/2022 06/08/2023 1 1 Reason Comments Refill Request Reason Onset Date Comments Refill Request 09/23/2022 OUT OF TEST STRI PS Reason Comments Medical Clearance Reason Comments Established Patient Follow Up Diabetic Foot Care Reason Comments Patient Update Patient Question Reason Comments Weakness Reason Onset Date Comments Virtualist 10/31/2022 Reason Comments ER F/U [facility] ER f/u dx: weakn ess/shortness of breath Reason Comments Results Reason Comments Follow Up Reason Comments Orders Reason Onset Date Comments Refill Request 12/22/2022 Reason Comments Patient Education Assessment Specialty Diagnoses / Procedures Referred By Contac t Referred To Contact Nutrition Diagnoses Low serum albumin Procedures CONSULT TO NUTRITION THERAPY MEDICAL NUTRITION ASSMT&IVNTJ INDIV EACH 15 MO MEDICAL NUTRITION ASSMT&IVNTJ INDIV EACH 15 MO MEDICAL NUTRITION ASSMT&IVNTJ INDIV EACH 15 MO MEDICAL NUTRITION ASSMT&IVNTJ INDIV EACH 15 MO Stefan Moore MD [address] [place] [address] Referral ID Status Reason Start Date Expiration Date Visits Requested Visits Authorized [id number] Pending Review PCP Requested Referral 12/10/2022 12/10/2023 1 1 Reason Comments fracture update Results Reason Comments Hospital F/U Reason Comments Non-Chemotherapy Treatment Specialty Diagnoses / Procedures Referred By Contac t Referred To Contact Diagnoses Anemia due to stage 3b chronic kidney disease (HCC) Procedures IRON SUCROSE INJECTION [place] [address] [place] [address] [place] [address] [facility] [address] [place] [address] Referral ID Status Reason Start Date Expiration Date V isits Requested Visits Authorized [id number] Authorized 05/02/2023 06/04/2023 99 99 Reason Comments Benefits Investigation Reason Comments AVS 12/7 Care Teams (unrecognized sec tion and content) Distribution Lead Relationship Specialty Start Date End Date Stefan Moore MD [address] [place] [address] PCP - General Family Practice 09/08/16 Distribution Lead Relationship Specialty Start Date End Date Stefan Moore MD [address] [place] [address] PCP - General Family Practice 09/08/16 Distribution Lead Relationship Specialty Start Date End Date Stefan Moore MD [address] [place] [address] PCP - General Family Practice 09/08/16 Distribution Lead Relationship Specialty Start Date End Date Stefan Moore MD [address] [place] [address] PCP - General Family Practice 09/08/16 Distribution Lead Relationship Specialty Start Date End Date Stefan Moore MD [address] [place] [address] PCP - General Family Practice 09/08/16 Distribution Lead Relationship Specialty Start Date End Date Stefan Moore MD [address] [place] [address] PCP - General Family Practice 09/08/16 Distribution Lead Relationship Specialty Start Date End Date Stefan Moore MD [address] [place] [address] PCP - General Family Practice 09/08/16 Distribution Lead Relationship Specialty Start Date End Date Stefan Moore MD [address] [place] [address] PCP - General Family Practice 09/08/16 Distribution Lead Relationship Specialty Start Date End Date Stefan Moore MD [address] [place] [address] PCP - General Family Practice 09/08/16 Distribution Lead Relationship Specialty Start Date End Date Stefan Moore MD [address] [place] [address] PCP - General Family Practice 09/08/16 Distribution Lead Relationship Specialty Start Date End Date Stefan Moore MD [address] [place] [address] PCP - General Family Practice 09/08/16 Distribution Lead Relationship Specialty Start Date End Date Stefan Moore MD [address] [place] [address] PCP - General Family Practice 09/08/16 Distribution Lead Relationship Specialty Start Date End Date Stefan Moore MD [address] [place] [address] PCP - General Family Practice 09/08/16 Distribution Lead Relationship Specialty Start Date End Date Stefan Moore MD [address] [place] [address] PCP - General Family Practice 09/08/16 Distribution Lead Relationship Specialty Start Date End Date Stefan Moore MD [address] [place] [address] PCP - General Family Practice 09/08/16 Distribution Lead Relationship Specialty Start Date End Date Stefan Moore MD [address] [place] [address] PCP - General Family Practice 09/08/16 Distribution Lead Relationship Specialty Start Date End Date Stefan Moore MD [address] [place] [address] PCP - General Family Medicine 09/08/16 Distribution Lead Relationship Specialty Start Date End Date Stefan Moore MD [address] [place] [address] PCP - General Family Medicine 09/08/16 Distribution Lead Relationship Specialty Start Date End Date Stefan Moore MD [address] [place] [address] PCP - General Family Medicine 09/08/16 Distribution Lead Relationship Specialty Start Date End Date Stefan Moore MD [address] [place] [address] PCP - General Family Medicine 09/08/16 Distribution Lead Relationship Specialty Start Date End Date Stefan Moore MD [address] [place] [address] PCP - General Family Medicine 09/08/16 Distribution Lead Relationship Specialty Start Date End Date Stefan Moore MD [address] [place] [address] PCP - General Family Medicine 09/08/16 Distribution Lead Relationship Specialty Start Date End Date Stefan Moore MD [address] [place] [address] PCP - General Family Medicine 09/08/16 Distribution Lead Relationship Specialty Start Date End Date Stefan Moore MD [address] [place] [address] PCP - General Family Medicine 09/08/16 Distribution Lead Relationship Specialty Start Date End Date Stefan Moore MD [address] [place] [address] PCP - General Family Medicine 09/08/16 Distribution Lead Relationship Specialty Start Date End Date Stefan Moore MD [address] [place] [address] PCP - General Family Medicine 09/08/16 Distribution Lead Relationship Specialty Start Date End Date Stefan Moore MD [address] [place] [address] PCP - General Family Medicine 09/08/16 Distribution Lead Relationship Specialty Start Date End Date Stefan Moore MD [address] [place] [address] PCP - General Family Medicine 09/08/16 Distribution Lead Relationship Specialty Start Date End Date Stefan Moore MD [address] [place] [address] PCP - General Family Medicine 09/08/16 Distribution Lead Relationship Specialty Start Date End Date Stefan Moore MD [address] [place] [address] PCP - General Family Medicine 09/08/16 Distribution Lead Relationship Specialty Start Date End Date Stefan Moore MD [address] [place] [address] PCP - General Family Medicine 09/08/16 Distribution Lead Relationship Specialty Start Date End Date Stefan Moore MD [address] [place] [address] PCP - General Family Medicine 09/08/16 Distribution Lead Relationship Specialty Start Date End Date Stefan Moore MD [address] [place] [address] PCP - General Family Medicine 09/08/16 Distribution Lead Relationship Specialty Start Date End Date Stefan Moore MD [address] [place] [address] PCP - General Family Medicine 09/08/16 Distribution Lead Relationship Specialty Start Date End Date Stefan Moore MD [address] [place] [address] PCP - General Family Medicine 09/08/16 Distribution Lead Relationship Specialty Start Date End Date Stefan Moore MD [address] [place] [address] PCP - General Family Medicine 09/08/16 Distribution Lead Relationship Specialty Start Date End Date Stefan Moore MD [address] [place] [address] PCP - General Family Medicine 09/08/16 Distribution Lead Relationship Specialty Start Date End Date Stefan Moore MD [address] [place] [address] PCP - General Family Medicine 09/08/16 Distribution Lead Relationship Specialty Start Date End Date Stefan Moore MD [address] [place] [address] PCP - General Family Medicine 09/08/16 Distribution Lead Relationship Specialty Start Date End Date Stefan Moore MD [address] [place] [address] PCP - General Family Medicine 09/08/16 Distribution Lead Relationship Specialty Start Date End Date Stefan Moore MD [address] [place] [address] PCP - General Family Medicine 09/08/16 Distribution Lead Relationship Specialty Start Date End Date Stefan Moore MD [address] [place] [address] PCP - General Family Medicine 09/08/16 Distribution Lead Relationship Specialty Start Date End Date Stefan Moore MD [address] [place], [place] [address] PCP - General Family Medicine 09/08/16 Distribution Lead Relationship Specialty Start Date End Date Stefan Moore MD [address] [place] [address] PCP - General Family Medicine 09/08/16 Distribution Lead Relationship Specialty Start Date End Date Stefan Moore MD [address] [facility] [place] [address] PCP - General Family Medicine 09/08/16 Distribution Lead Relationship Specialty Start Date End Date Stefan Moore MD [address] [facility] [place] [address] PCP - General Family Medicine 09/08/16 Dion Chavarria MD [address] [place] [address] Hematology/Oncology 01/10/23 Distribution Lead Relationship Specialty Start Date End Date Stefan Moore MD [address] [facility] [place] [address] PCP - General Family Medicine 09/08/16 Dion Chavarria MD [address] [place] [address] Hematology/Oncology 01/10/23 Distribution Lead Relationship Specialty Start Date End Date Stefan Moore MD [address] [facility] [place] [address] PCP - General Family Medicine 09/08/16 Dion Chavarria MD [address] [place] [address] Hematology/Oncology 01/10/23 Distribution Lead Relationship Specialty Start Date End Date Stefan Moore MD [address] [place] [address] PCP - General Family Medicine 09/08/16 Dion Chavarria MD [address] [place] [address] Hematology/Oncology 01/10/23 Distribution Lead Relationship Specialty Start Date End Date Stefan Moore MD [address] [facility] [place] [address] PCP - General Family Medicine 09/08/16 Distribution Lead Relationship Specialty Start Date End Date Stefan Moore MD [address] [place] [address] PCP - General Family Medicine 09/08/16 Dion Chavarria MD [address] [place] [address] Hematology/Oncology 01/10/23 Distribution Lead Relationship Specialty Start Date End Date Setfan Moore MD [address] [place] [address] PCP - General Family Medicine 09/08/16 Dion Chavarria MD [address] [place] [address] Hematology/Oncology 01/10/23 Distribution Lead Relationship Specialty Start Date End Date Stefan Moore MD [address] [place] [address] PCP - General Family Medicine 09/08/16 Dion Chavarria MD [address] [place] [address] Hematology/Oncology 01/10/23 Distribution Lead Relationship Specialty Start Date End Date Oscar, Stefan J, MD [address] [facility], [place] [id number] PCP - General Family Medicine 09/08/16 Dion Chavarria MD [address] [place], [place] [id number] Hematology/Oncology 01/10/23 Distribution Lead Relationship Specialty Start Date End Date Stefan Moore MD [address] [facility], [place] [id number] PCP - General Family Medicine 09/08/16 Dion Chavarria MD [address] [place], [place] [address] Hematology/Oncology 01/10/23 Distribution Lead Relationship Specialty Start Date End Date Stefan Moore MD [address] [place], [place] [id number] PCP - General Family Medicine 09/08/16 Dion Chavarria MD [address] [place], [place] [address] Hematology/Oncology 01/10/23 FOR RECORDS PERTAINING TO PATIENTS WHO ARE OR HAVE BEEN ENROLLED IN A CHEMICAL DEPENDENCY/SUBSTANCEABUSE PROGRAM, SOME INFORMATION MAY BE OMITTED. This clinical summary was aggregated from multiple sources. Caution should be exercised in using it in the provision of clinical care. This summary normalizes information from multiple sources, and as a consequence, information in this document may materially change the coding, format and clinical context of patient data. In addition, data may be omitted in some cases. CLINICAL DECISIONS SHOULD BE BASED ON THE PRIMARY CLINICAL RECORDS. [employer]. provides no warranty or guarantee of the accuracy or completeness of information in this document.
[2023-06-07 10:02] LABS: Absolute Lymphocyte Count 1.45 X10^3/uL (0.83-4.51); Absolute Neutrophil Count 2.9 X10^3/uL (2.0-7.7); Basophil# 0.05 X10^3/uL; Eosinophil# 0.26 X10^3/uL; Eosinophils% 5.2 % (0-5); Hematocrit 30.4 % (37-47); Lymphocyte # 1.45 X10^3/ul (0.83-4.51); Lymphocyte % 28.8 % (19-41); Mean Corp Hgb Conc 29.6 g/dL (32-36); Mean Corpuscular Hgb 26.4 pg (27.0-32.0); Mean Corpuscular Volume 89.1 fL (81-99); Mean Platelet Vol. 9.9 fl (6.2-12.0); NRBC Flagged by Analyzer 0 % (0-5); Neutrophil # 2.94 X10^3/uL (2.7-7.7); Neutrophil % 58.4 % (47-70); Platelet Count 231 K/mm3 (150-450); RBC Distribution Width CV 19.3 % (11.6-14.6); RBC Distribution Width SD 61.7 fl (35.1-43.9); Red Blood Count 3.41 M/mm3 (4.2-5.4)
== END ==
LOC: OLS.WHLEAS 05:00
PROVIDERS: PCP Family Medicine; Visit Provider Internal Medicine
DX: N18.9 Chronic kidney disease, unspecified (principal); I48.0 Paroxysmal atrial fibrillation
CPT/HCPCS: 36415; 85025

== ENCOUNTER → 2023-06-21 | Outpatient (REF) | payer MEDICARE, SELFPAY ==
--- OUTSIDE RECORDS SUMMARY | 2023-06-21 05:15 | XMS RPT_ITS | CCD ---
Author Name Unknown Address [id number] [place] [address] Organization [facility] Care Team Providers Care Barrel Lathe Operator Inside Name Role Phone LAWSON VARMA Unavailable Unavailable IMCA Unavailable Unavailable Stefan Moore Unavailable Unavailable LAWSON VARMA Unavailable Unavailable LAWSON VARMA Unavailable Unavailable Stefan Moore Unavailable Unavailable HOLLIS LONNY Unavailable Unavailable LONNY SHAFER Unavailable Unavailable Stefan Moore MD Primary Care Provider Stefan Moore MD Primary Care Provider Stefan Moore MD Primary Care Provider Oscar ROTHMAN, Stefan Hackett Primary Care Provider Dion Chavarria MD Unavailable [phone] OSCAR ROTHMAN, STEFAN Primary Care Physician [phone] GABRIELA ROTHMAN, DR ETHEL Arellano Attending STEFAN Dave MD Primary Care Unavailable GABRIELA ROTHMAN, DR ETHEL Arellano Attending UnavailSTEFAN Parson MD Primary Care Unavailable STEFAN MOORE Primary Care Unavailable DION CHAVARRIA Referring Unavailable STEFAN MOORE Primary Care Unavailable DALI SEPULVEDA Attending Unavailable STEFAN MOORE Primary Care Unavailable DION CHAVARRIA Referring Unavailable STEFAN MOORE Primary Care Unavailable DION CHAVARRIA Referring Unavailable STEFAN MOORE Primary Care Unavailable DION CHAVARRIA Attending Unavailable DION CHAVARRIA Referring Unavailable STEFAN MOORE Primary Care Unavailable IDON CHAVARRIA Referring Unavailable STEFAN MOORE Primary Care Unavailable DION CHAVARRIA Attending Unavailable DION CHAVARRIA Referring Unavailable STEFAN MOORE Primary Care Unavailable DALI SEPULVEDA Referring Unavailable OSCAR, STEFAN Hackett Primary Care Unavailable OSCAR, STEFAN Hackett Primary Care Unavailable TESTDALI SANDERS Attending Unavailable OSCAR, STEFAN Hackett Primary Care Unavailable OSCAR, STEFAN Hackett Primary Care Unavailable OSCAR, STEFAN Hackett Primary Care Unavailable MONAE BOWSER Referring Unavailable OSCAR, STEFAN Hackett Primary Care Unavailable MONAE BOWSER Attending Unavailable BRIJESH BOJORQUEZ Referring Unavailable OSCAR, STEFAN Hackett Primary Care Unavailable OSCAR, STEFAN Hackett Primary Care Unavailable MONAE BOWSER Referring Unavailable OSCAR, STEFAN Hackett Primary Care Unavailable TESTDALI SANDERS Referring Unavailable TESTDALI SANDERS Attending Unavailable OSCAR, STEFAN Hackett Primary Care Unavailable DION CHAVARRIA Referring Unavailable DION CHAVARRIA Attending Unavailable OSCAR, STEFAN Hackett Primary Care Unavailable DION CHAVARRIA Referring Unavailable OSCAR, STEFAN Hackett Primary Care Unavailable BRIJESH BOJORQUEZ Attending Unavailable OSCAR, STEFAN Hackett Primary Care Unavailable OSCAR, STEFAN Hackett Primary Care Unavailable OSCAR, STEFAN Hackett Attending Unavailable OSCAR, STEFAN Hackett Primary Care Unavailable OSCAR, STEFAN Hackett Referring Unavailable OSCAR, STEFAN Hackett Primary Care Unavailable OSCAR, STEFAN Hackett Primary Care Unavailable OSCAR, STEFAN Hackett Attending Unavailable OSCAR, STEFAN Hackett Primary Care Unavailable OSCAR, STEFAN Hackett Referring Unavailable OSCAR, STEFAN Hackett Primary Care Unavailable DOMINGO KNUTSON Attending Unavailable CHUN BREWSTER Referring Unavailable OSCAR, STEFAN Hackett Primary Care Unavailable MARII RUIZ Attending Unavailable OSCAR, STEFAN Hackett Primary Care Unavailable SOCAR, STEFAN Hackett Referring Unavailable DION CHAVARRIA Referring Unavailable OSCAR, STEFAN Hackett Primary Care Unavailable DION CHAVARRIA Referring Unavailable DION CHAVARRIA Attending Unavailable OSCAR, STEFAN Hackett Primary Care Unavailable OSCAR, STEFAN Hackett Primary Care Unavailable DALI SEPULVEDA Referring Unavailable TESTDALI SANDERS Attending Unavailable OSCAR, STEFAN Hackett Primary Care Unavailable OSCAR, STEFAN Hackett Primary Care Unavailable MONAE BOWSER Attending Unavailable DION CHAVARRIA Referring Unavailable OSCAR, STEFAN Hackett Primary Care Unavailable DION CHAVARRIA Referring Unavailable OSCAR, STEFAN Hackett Primary Care Unavailable DION CHAVARRIA Referring Unavailable OSCAR, STEFAN Hackett Primary Care Unavailable OSCAR, STEFAN Hackett Primary Care Unavailable FABIOLA BRUMFIELD Referring Unavailable OSCAR, STEFAN Hackett Primary Care Unavailable OSCAR, STEFAN Hackett Primary Care Unavailable OSCAR, STEFAN Hackett Attending Unavailable OSCAR, STEFAN Hackett Primary Care Unavailable OSCAR, STEFAN Hackett Referring Unavailable Allergies Allergy Classification Reported Allergen(s) Allergy Type Date of Onset Reaction(s) Facility (20 sources) ezetimibe / simvastatin; Translations: [EZETIMIBE-SIMV ASTATIN] Drug Allergy 1 Contraindicatio [facility] Repository (20 sources) Hmg-Coa Reductase Inhibitors (Statins); Translations: [[id number]-GD A REDUCTASE INHIBITORS] Propensity to adverse reactions (disorder) 7 Other: See Comments [facility] Repository (20 sources) metFORMIN; Translations: [METFORMIN] Drug Allergy 4 Other: See Comments [facility] Repository (20 sources) simvastatin; Translations: [SIMVASTATIN] Drug Allergy 1 Contraindicatio [facility] Repository (20 sources) Iodine; Translations: [IODINE] Drug Allergy 1 Rash, Unknown, [facility] (1 source) HMG-CoA reductase inhibitor; Translations: [statins] Drug allergy [facility] (1 source) Shellfish 1 Food allergy [facility] Medications Current Medications Medication Drug Class(es) Dates Sig (Normalized) Sig (Original) allopurinol 100 mg oral tablet (20 sources) Xanthine Oxidase Inhibitor Start: 06-16-2023 allopurinol 100 mg oral tablet Dose : 100 mg = 1 tab(s), Oral, qDay, 0 Refill(s) Start Date: 06/16/23 Status: Ordered Completed/Discontinued Medications Medication Drug Class(es) Dates Sig [...] 2 08-02-2021 Chronic Deficiency and other anemia (2 sources) Anemia in chronic kidney disease; Translations: [Anemia due to stage 3b chronic kidney disease (HCC) (HCC)] Onset: 3 Chronic Deficiency and other anemia (5 sources) Anemia; Translations: [Anemia, unspecified] Episodic Deficiency and other anemia (1 source) Anemia, unspecified; Translations: [Anemia, unspecified type] Onset: 3 Episodic Deficiency and other anemia (2 sources) Deficiency and other anemia; Translations: [Anemia due to stage 3b chronic kidney disease (HCC) ([facility])] Onset: 3 Diabetes mellitus with complications (20 sources) Type 2 diabetes mellitus; Translations: [Type 2 diabetes mellitus 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 polyneuropathy] Onset: 8 07-22-2020 Chronic Diabetes mellitus without complication (1 source) Diabetes mellitus without complication; Translations: [Type 2 diabetes mellitus with stage 3b chronic kidney disease, without long-term current use of insulin ([facility])] Onset: 2 Disorders of lipid metabolism (20 [...] iron deficiency anemia type] Onset: 10-29-2020 Episodic Nutritional deficiencies (20 sources) Cobalamin deficiency; [...] left finger(s); Translations: [Finger pain, left] Onset: 07-25-2022 Episodic Other hematologic conditions (4 sources) Abnormality [...] Date Time Vital Sign Value Performing Clinician Facility 06-16-2023 13:15-0500 Body height 172.[address] ETHEL OCHOA MD [facility] 06-16-2023 13:15-0500 Body weight [address] ETHEL OCHOA MD [facility] 05-01-2023 14:10-0500 Body temperature 97.5 [degF] Dion Chavarria MD Work Phone: [facility] 05-01-2023 14:10-0500 Diastolic blood pressure 57 mm[Hg] Dion Chavarria MD Work Phone: [facility] 05-01-2023 14:10-0500 Heart rate 87 /min Dion Chavarria MD Work Phone: [facility] 05-01-2023 14:10-0500 SaO2% (BldA) [Mass fraction] 96 % Dion Chavarria MD Work Phone: [facility] 05-01-2023 14:10-0500 Systolic blood pressure 105 mm[Hg] Dion Chavarria MD Work Phone: [facility] 04-05-2023 09:26-0400 Body height 172.7 cm Stefan Moore MD Work Phone: [facility] 04-05-2023 09:26-0400 Body weight 94.35 kg Stefan Moore MD Work Phone: [facility] 04-05-2023 09:26-0400 Diastolic blood pressure 48 mm[Hg] Stefan Moore MD Work Phone: [facility] 04-05-2023 09:26-0400 Heart rate 80 /min Stefan Moore MD Work Phone: [facility] 04-05-2023 09:26-0400 SaO2% (BldA) [Mass fraction] 95 % Stefan Moore MD Work Phone: [facility] 04-05-2023 09:26-0400 Systolic blood pressure 120 mm[Hg] Stefan Moore MD Work Phone: [facility] 01-10-2023 12:19-0400 Body temperature 97 [degF] Dion Chavarria MD Work Phone: [facility] 01-10-2023 12:19-0400 Body weight 90.27 kg Dion Chavarria MD Work Phone: [facility] 01-10-2023 12:19-0400 Diastolic blood pressure 66 mm[Hg] Dion Chavarria MD Work Phone: [facility] 01-10-2023 12:19-0400 Heart rate 75 /min Dion Chavarria MD Work Phone: [facility] 01-10-2023 12:19-0400 SaO2% (BldA) [Mass fraction] 97 % Dion Chavarria MD Work Phone: [facility] 01-10-2023 12:19-0400 Systolic blood pressure 128 mm[Hg] Dion Chavarria MD Work Phone: [facility] 01-02-2023 12:59-0400 Body height 172.[address] [facility] 01-02-2023 12:59-0400 Body weight 94.[address] [facility] 12-10-2022 10:50-0400 Body height 172.7 cm Stefan Moore MD Work Phone: [facility] 12-10-2022 10:50-0400 Body weight 92.53 kg Stefan Moore MD Work Phone: [facility] 12-10-2022 10:50-0400 Diastolic blood pressure 58 mm[Hg] Stefan Moore MD Work Phone: [facility] 12-10-2022 10:50-0400 Heart rate 80 /min Stefan Moore MD Work Phone: [facility] 12-10-2022 10:50-0400 SaO2% (BldA) [Mass fraction] 96 % Stefan Moore MD Work Phone: [facility] 12-10-2022 10:50-0400 Systolic blood pressure 140 mm[Hg] Stefan Moore MD Work Phone: [facility] 11-07-2022 13:35-0400 Diastolic blood pressure 60 mm[Hg] Monae Haagen ANTENNA ENGINEER.REAL ESTATE SALES MANAGER Work Phone: [facility] 11-07-2022 13:35-0400 Heart rate 83 /min Monae Haagen ANTENNA ENGINEER.REAL ESTATE SALES MANAGER Work Phone: [facility] 11-07-2022 13:35-0400 Respiratory rate 16 /min Monae Haagen ANTENNA ENGINEER.REAL ESTATE SALES MANAGER Work Phone: [facility] 11-07-2022 13:35-0400 SaO2% (BldA) [Mass fraction] 96 % Monae Haagen ANTENNA ENGINEER.REAL ESTATE SALES MANAGER Work Phone: [facility] 11-07-2022 13:35-0400 Systolic blood pressure 132 mm[Hg] Monae Haagen ANTENNA ENGINEER.REAL ESTATE SALES MANAGER Work Phone: [facility] 08-23-2022 15:46-0400 Diastolic blood pressure 60 mm[Hg] Stefan Moore MD Work Phone: [facility] 08-23-2022 15:46-0400 Systolic blood pressure 138 mm[Hg] Stefan Moore MD Work Phone: [facility] 08-23-2022 15:23-0400 Body height 172.7 cm Stefan Moore MD Work Phone: [facility] 08-23-2022 15:23-0400 Body weight 94.89 kg Stefan Moore MD Work Phone: [facility] 08-23-2022 15:23-0400 Heart rate 84 /min Stefan Moore MD Work Phone: [facility] 08-23-2022 15:23-0400 SaO2% (BldA) [Mass fraction] 97 % Stefan Moore MD Work Phone: [facility] 07-13-2022 11:05-0500 Diastolic blood pressure 58 mm[Hg] Mi Nurse Work Phone: [facility] 07-13-2022 11:05-0500 Heart rate 70 /min Mi Nurse Work Phone: [facility] 07-13-2022 11:05-0500 Systolic blood pressure 128 mm[Hg] Mi Nurse Work Phone: [facility] 06-28-2022 14:06-0500 Diastolic blood pressure 75 mm[Hg] Mi Nurse Work Phone: [facility] 06-28-2022 14:06-0500 Heart rate 76 /min Mi Nurse Work Phone: [facility] 06-28-2022 14:06-0500 Systolic blood pressure 157 mm[Hg] Mi Nurse Work Phone: [facility] 06-08-2022 09:57-0500 Body temperature 96.01 [degF] Chun Brewster MD Work Phone: [facility] 06-08-2022 09:57-0500 Body weight 94.17 kg Chun Brewster MD Work Phone: [facility] 06-08-2022 09:57-0500 Diastolic blood pressure 84 mm[Hg] Chun Brewster MD Work Phone: [facility] 06-08-2022 09:57-0500 Heart rate 82 /min Chun Brewster MD Work Phone: [facility] 06-08-2022 09:57-0500 Respiratory rate 18 /min Chun Brewster MD Work Phone: [facility] 06-08-2022 09:57-0500 SaO2% (BldA) [Mass fraction] 96 % Chun Brewster MD Work Phone: [facility] 06-08-2022 09:57-0500 Systolic blood pressure 156 mm[Hg] Chun Brewster MD Work Phone: [facility] 05-24-2022 12:38-0500 Body height 172.7 cm Stefan Moore MD Work Phone: [facility] 05-24-2022 12:38-0500 Body weight 94.8 kg Stefan Moore MD Work Phone: [facility] 05-24-2022 12:38-0500 Diastolic blood pressure 58 mm[Hg] Stefan Moore MD Work Phone: [facility] 05-24-2022 12:38-0500 Heart rate 61 /min Stefan Moore MD Work Phone: [facility] 05-24-2022 12:38-0500 SaO2% (BldA) [Mass fraction] 97 % Stefan Moore MD Work Phone: [facility] 05-24-2022 12:38-0500 Systolic blood pressure 150 mm[Hg] Stefan Moore MD Work Phone: [facility] 05-02-2022 12:04-0500 Body temperature 97.81 [degF] Yadira Chaudhry MD Work Phone: [facility] 05-02-2022 12:04-0500 Body weight 96.62 kg Yadira Chaudhry MD Work Phone: [facility] 05-02-2022 12:04-0500 Diastolic blood pressure 67 mm[Hg] Yadira Chaudhry MD Work Phone: [facility] 05-02-2022 12:04-0500 Heart rate 85 /min Yadira Chaudhry MD Work Phone: [facility] 05-02-2022 12:04-0500 Systolic blood pressure 154 mm[Hg] Yadira Chaudhry MD Work Phone: [facility] 04-07-2022 10:09-0400 Body temperature 99.19 [degF] NA King PA-C Work Phone: [facility] 04-07-2022 10:09-0400 Diastolic blood pressure 58 mm[Hg] NA King PA-C Work Phone: [facility] 04-07-2022 10:09-0400 Heart rate 84 /min NA King PA-C Work Phone: [facility] 04-07-2022 10:09-0400 Respiratory rate 20 /min NA King PA-C Work Phone: [facility] 04-07-2022 10:09-0400 SaO2% (BldA) [Mass fraction] 94 % NA King PA-C Work Phone: [facility] 04-07-2022 10:09-0400 Systolic blood pressure 126 mm[Hg] NA King PA-C Work Phone: [facility] 03-28-2022 15:46-0400 Body temperature 98.4 [degF] NA King PA-C Work Phone: [facility] 03-28-2022 15:46-0400 Diastolic blood pressure 60 mm[Hg] NA King PA-C Work Phone: [facility] 03-28-2022 15:46-0400 Heart rate 84 /min NA King PA-C Work Phone: [facility] 03-28-2022 15:46-0400 Respiratory rate 20 /min NA King PA-C Work Phone: [facility] 03-28-2022 15:46-0400 SaO2% (BldA) [Mass fraction] 97 % NA King PA-C Work Phone: [facility] 03-28-2022 15:46-0400 Systolic blood pressure 130 mm[Hg] NA King PA-C Work Phone: [facility] 02-14-2022 14:37-0400 Body weight 97.98 kg Stefan Moore MD Work Phone: [facility] 02-14-2022 14:37-0400 Diastolic blood pressure 66 mm[Hg] Stefan Moore MD Work Phone: [facility] 02-14-2022 14:37-0400 Heart rate 83 /min Stefan Moore MD Work Phone: [facility] 02-14-2022 14:37-0400 Respiratory rate 16 /min Stefan Moore MD Work Phone: [facility] 02-14-2022 14:37-0400 SaO2% (BldA) [Mass fraction] 98 % Stefan Moore MD Work Phone: [facility] 02-14-2022 14:37-0400 Systolic blood pressure 132 mm[Hg] Stefan Moore MD Work Phone: [facility] 01-31-2022 13:46-0400 Body weight 102.06 kg Stefan Moore MD Work Phone: [facility] 01-31-2022 13:46-0400 Diastolic blood pressure 62 mm[Hg] Stefan Moore MD Work Phone: [facility] 01-31-2022 13:46-0400 Heart rate 68 /min Stefan Moore MD Work Phone: [facility] 01-31-2022 13:46-0400 Systolic blood pressure 124 mm[Hg] Stefan Moore MD Work Phone: [facility] 01-24-2022 11:41-0400 Diastolic blood pressure 60 mm[Hg] Flor Boyle ANTENNA ENGINEER.REAL ESTATE SALES MANAGER Work Phone: [facility] 01-24-2022 11:41-0400 Heart rate 77 /min Flor Boyle ANTENNA ENGINEER.REAL ESTATE SALES MANAGER Work Phone: [facility] 01-24-2022 11:41-0400 Respiratory rate 16 /min Flor Moorehof ANTENNA ENGINEER.REAL ESTATE SALES MANAGER Work Phone: [facility] 01-24-2022 11:41-0400 SaO2% (BldA) [Mass fraction] 98 % Flor Moorehof ANTENNA ENGINEER.REAL ESTATE SALES MANAGER Work Phone: [facility] 01-24-2022 11:41-0400 Systolic blood pressure 114 mm[Hg] Flor Moorehof ANTENNA ENGINEER.REAL ESTATE SALES MANAGER Work Phone: [facility] 01-14-2022 12:01-0400 Body temperature 97.2 [degF] Ana Bell ANTENNA ENGINEER.REAL ESTATE SALES MANAGER Work Phone: [facility] 01-14-2022 12:01-0400 Body weight 101.42 kg Ana Bell SMITH.REAL ESTATE SALES MANAGER Work Phone: [facility] 01-14-2022 12:01-0400 Diastolic blood pressure 72 mm[Hg] Ana Bell SMITH.REAL ESTATE SALES MANAGER Work Phone: [facility] 01-14-2022 12:01-0400 Heart rate 79 /min Anamartinez Bell APRN.REAL ESTATE SALES MANAGER Work Phone: [facility] 01-14-2022 12:01-0400 Respiratory rate 18 /min Ana Bell SMITH.REAL ESTATE SALES MANAGER Work Phone: [facility] 01-14-2022 12:01-0400 SaO2% (BldA) [Mass fraction] 99 % Ana Bell SMITH.REAL ESTATE SALES MANAGER Work Phone: [facility] 01-14-2022 12:01-0400 Systolic blood pressure 142 mm[Hg] Ana Ray MTZ.REAL ESTATE SALES MANAGER Work Phone: [facility] 12-31-2021 09:46-0400 Body temperature 97.81 [degF] Stefan Moore MD Work Phone: [facility] 12-31-2021 09:46-0400 Diastolic blood pressure 58 mm[Hg] Stefan Moore MD Work Phone: [facility] 12-31-2021 09:46-0400 Heart rate 78 /min Stefan Moore MD Work Phone: [facility] 12-31-2021 09:46-0400 Respiratory rate 18 /min Stefan Moore MD Work Phone: [facility] 12-31-2021 09:46-0400 SaO2% (BldA) [Mass fraction] 97 % Stefan Moore MD Work Phone: [facility] 12-31-2021 09:46-0400 Systolic blood pressure 138 mm[Hg] Stefan Moore MD Work Phone: [facility] 12-23-2021 09:48-0400 Body temperature 97.2 [degF] CHANTE King PA-C Work Phone: [facility] 12-23-2021 09:48-0400 Diastolic blood pressure 64 mm[Hg] NA King PA-C Work Phone: [facility] 12-23-2021 09:48-0400 Heart rate 84 /min NA King PA-C Work Phone: [facility] 12-23-2021 09:48-0400 Respiratory rate 20 /min NA King PA-C Work Phone: [facility] 12-23-2021 09:48-0400 SaO2% (BldA) [Mass fraction] 97 % NA King PA-C Work Phone: [facility] 12-23-2021 09:48-0400 Systolic blood pressure 136 mm[Hg] NA King PA-C Work Phone: [facility] 10-04-2021 16:04-0400 Body temperature 98.49 [degF] Yadira Chaudhry MD Work Phone: [facility] 10-04-2021 16:04-0400 Body weight 103.87 kg Yadira Chaudhry MD Work Phone: [facility] 10-04-2021 16:04-0400 Diastolic blood pressure 72 mm[Hg] Yadira Chaudhry MD Work Phone: [facility] 10-04-2021 16:04-0400 Heart rate 76 /min Yadira Chaudhry MD Work Phone: [facility] 10-04-2021 16:04-0400 SaO2% (BldA) [Mass fraction] 97 % Yadira Chaudhry MD Work Phone: [facility] 10-04-2021 16:04-0400 Systolic blood pressure 164 mm[Hg] Yadira Chaudhry MD Work Phone: [facility] Encounters Encounter Date Encounter Type Care Provider Facility Start: 06-16-2023 End: 06-17-[address] ETHEL OCHOA MD Facility:B Start: 06-16-2023 End: 06-16-[address] ETHEL OCHOA MD [facility] Start: 06-15-2023 End: 06-16-2023 ambulatory [facility] Facility:[facility] Start: 06-08-2023 End: 06-08-2023 ambulatory [facility] Facility:[facility] Start: 06-01-2023 End: 06-01-2023 ambulatory [facility] Facility:[facility] Start: 05-25-2023 End: 05-25-2023 ambulatory [facility] Facility:[facility] Start: 05-11-2023 End: 05-11-2023 ambulatory Treatment Rm 12 [facility] Work Phone: Hematology/Oncology Procedures Date Procedure Procedure Detail Performing Clinician Start: 01-20-2023 Radex toe minimum 2 views Dali Sepulveda Work Phone: Start: 03-28-2022 Radiologic exam ches t 2 views M Tyree King PA-C Work Phone: Start: 01-24-2022 Dup-scan xtr veins unilateral/limited study Flor Boyle ANTENNA ENGINEERYasmeenREAL ESTATE SALES MANAGER Work Phone: Start: 01-12-2022 Mri spinal canal lum bar w/o contrast material [facility] Provider Start: 04-20-2021 Adult depression screening assessment Mi Nurse Work Phone: Carpal tunnel syndro me (disorder) DR ETHEL OCHOA MD Plan of Treatment Date Care Activity Detail Author Start: 12-16-2023 Hepatitis B screening URINE ALBUMIN:CREATININE RATIO [facility] Start: 09-27-2023 Glaucoma screening Dilated Retinal Exam [facility] Start: 09-27-2023 Hepatitis C antibody, confirmatory test DILATED RETINAL EXAM [facility] Start: 09-01-2023 Hepatitis B surface antibody level LDL CHOLESTEROL [facility] Start: 06-12-2023 End: 08-12-2023 Hemoglobin A1c in Blood HGB A1C Lab Routine Type 2 diabetes mellitus 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 peripheral angiopathy without gangrene, without long-term current use of insulin (HCC) Type 2 diabetes mellitus with stage 3b chronic kidney disease, without long-term current use of insulin (HCC) Expected: 06/12/2023, Expires: 08/12/[address] [facility] Work Phone: Immunizations Immunization Date Immunization Notes Care Provider Betty kraus 10-20-2022 COVID-19 vaccine, ag e 12+ yr, bivalent (PFIZER-BIONTECH) Fito Saenz MD Work Phone: [facility] Work Phone: 02-24-2022 COVID-19 booster vaccine, age 12+ yr, bivalent (PFIZER-BIONTECH) Yadira Chaudhry MD Work Phone: [facility] Work Phone: 02-24-2022 influenza, high-dose , quadrivalent vaccine (FLUZONE HIGH DOSE QUADRIVALENT) Yadira Chaudhry MD Work Phone: [facility] Work Phone: 02-24-2022 influenza virus vacc ine, unspecified formulation Stefan Moore MD Work Phone: [facility] 03-29-2021 influenza, high-dose , quadrivalent vaccine (FLUZONE HIGH DOSE QUADRIVALENT) Wi Nurse Work Phone: [facility] 08-12-2020 COVID-19 vaccine, fu ll dose (MODERNA) Wi Nurse Work Phone: [facility] 07-16-2020 COVID-19 vaccine, fu ll dose (MODERNA) Wi Nurse Work Phone: [facility] 05-25-2020 zoster vaccine recombinant Stefan Moore MD Work Phone: [facility] 03-14-2020 influenza (aIIV4) vaccine, age 65+ yr, quadrivalent, PF (FLUAD QUADRIVALENT) Stefan Moore MD Work Phone: [facility] 03-14-2020 zoster vaccine recombinant Wi Nurse Work Phone: [facility] 03-05-2020 influenza, seasonal, injectable, preservative free Stefan Moore MD Work Phone: [facility] 02-18-2020 influenza, high dose seasonal, preservative-free Mi Nurse Work Phone: [facility] 03-11-2019 influenza, high dose seasonal, preservative-free Mi Nurse Work Phone: [facility] Work Phone: 02-26-2018 influenza, high dose seasonal, preservative-free Mi Nurse Work Phone: [facility] Work Phone: 05-09-2017 influenza, high dose seasonal, preservative-free Mi Nurse Work Phone: [facility] 03-05-2017 influenza, seasonal, injectable, preservative free Stefan Moore MD Work Phone: [facility] 04-07-2016 influenza, high dose seasonal, preservative-free Mi Nurse Work Phone: [facility] 04-06-2015 influenza, high dose seasonal, preservative-free Mi Nurse Work Phone: [facility] 10-07-2014 pneumococcal conjuga te vaccine, 13 valent Mi Nurse Work Phone: [facility] 03-14-2014 influenza, seasonal, injectable Mi Nurse Work Phone: [facility] 04-02-2013 influenza virus vacc ine, unspecified formulation Mi Nurse Work Phone: [facility] 03-05-2013 influenza, seasonal, injectable, preservative free Stefan Moore MD Work Phone: [facility] 04-02-2012 influenza virus vacc ine, unspecified formulation Mi Nurse Work Phone: [facility] 03-21-2012 zoster vaccine, live Mi Nurs e Work Phone: [facility] Work Phone: 06-03-2010 influenza virus vacc ine, unspecified formulation Mi Nurse Work Phone: [facility] 06-03-2010 pneumococcal polysaccharide vaccine, 23 valent Mi Nurse Work Phone: [facility] 05-13-2008 influenza virus vacc ine, unspecified formulation Mi Nurse Work Phone: [facility] Work Phone: 04-04-2007 influenza virus vacc ine, unspecified formulation Mi Nurse Work Phone: [facility] Work Phone: 03-15-2007 diphtheria and tetan us toxoids, adsorbed for pediatric use Mi Nurse Work Phone: [facility] Work Phone: 04-26-2005 influenza virus vacc ine, unspecified formulation Mi Nurse Work Phone: [facility] 05-17-2000 pneumococcal polysaccharide vaccine, 23 valent Mi Nurse Work Phone: [facility] Work Phone: 03-17-1997 diphtheria and tetan us toxoids, adsorbed for pediatric use Wi Nurse Work Phone: [facility] Work Phone: Payers Date Payer Category Payer Medicare A[employer]NA MEDICARE A ETNA MEDICARE PPO [id number] 2021-Present [phone] [address] [place] [address] O [id number] 2021 Medicare AETNA MEDICARE A ETNA MEDICARE PPO [id number] 2021-Present [phone] [address] [place] [address] PPO [id number] 2021 Private Health Insurance 101 [id number] 1940 Unknown [id number] Medicare [id number] Social History Date Type Detail Facility Start: 11-09-2010 End: 06-16-2023 Tobacco smoking status NHIS Never smoked tobacco [facility] Start: 08-02-2021 End: 05-11-2023 Alcohol intake Current non-drinker of alcohol (finding) [facility] Start: 1940 Sex Assigned At Not on file [facility] Start: 08-16-2021 End: 05-02-2022 Exposure to SARS-CoV-2 (event) Not sure [facility] Start: 11-09-2010 Tobacco use and exposure Smokeless tobacco non-user [facility] Work Phone: Start: 10-12-2022 End: 12-10-2022 History of Social function [facility] Work Phone: Start: 10-12-2022 End: 12-10-2022 Tobacco use panel [facility] Work Phone: Adult Depression Screening Assessment 2 [facility] Work Phone: Sex Assigned At Sex [facility] Medical Equipment Procedure Code Equipment Code Equipment Origin al Text Equipment Identifier Dates Start: 02-10-2015 End: 09-23-2022 Functional Status Date Assessment Result Facility 06-16-2023 Functional Status Sensory Deficits None A [facility] Clinical Notes 11-10-2017 to 06-15-2023 Telephone Encounter - Chacha Ferris - 05/18/2023 4:45 PM ESTTelephone Encounter - Chrissy Ardon - 05/18/2023 11:16 AM ESTTelephone Encounter - Chrissy Ardon - 05/16/2023 10:27 AM EST Note Date & Type Note Facility 06-15-2023 Note [facility] 05-18-2023 Miscellaneous Notes Patient called back and [...] OV Thank you! documented in this encounter [facility] 05-11-2023 Note [facility] 05-11-2023 Note [facility] 05-11-2023 Note [facility] 05-11-2023 Miscellaneous Notes Patient on 1st time treatment report-non oncology regimen (venofer) Patient holds medicare coverage and no FA available for this treatment. documented in this encounter [facility] 05-11-2023 History of Present illness Narrative [...] nail care. She currently is living at [facility] where she is receiving rehab for a tibia fx. She plans to return home once she can ambulate. She presents in wheelchair. documented in this encounter [facility] 05-11-2023 Instructions Dali Sepulveda - 05/11/2023 3:49 PM EST Diabetes Foot [...] (or decreased sensation in your feet) a program management manager should always cut your toenails. Be Careful [...] Go to your health care provider or program management manager to treat these conditions. documented in this encounter [facility] 05-11-2023 Note HNO ID: [id number] Author: Nadiya Lucas LPN Service: ? Author Type: LICENSED NURSE Type: Progress Notes Filed: 05/22/2023 9:30 AM Note Text: Est. Pt. OV prior to Venofer infusion today. Nadiya Lucas LPN [facility] 05-11-2023 History of Present illness Narrative Pt refused observation due to program management manager appt at 1500 today. States that she feels fine after the infusion and will be in the building if something were to happen. Denies ever having a reaction with prior iron infusions. Delmi Landrum RN documented in this encounter [facility] 05-11-2023 Note [facility] 05-01-2023 Note [facility] 05-01-2023 History of Present illness Narrative [...] received a small bowel capsule endoscopy at [facility] she was also negative. Her transferrin saturation [...] neg for blood per pt. .labs from [facility] reviewed, hgb low 8 range there. 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 Widttlc-Aln-Wqh Red* Other: See Comments myopathy Vytorin 10-10 [...] Sodium Chloride (Deep Sea Nasal) 0.65 % Aerosol,[place] Active 2 SPRAY NASAL EVERY 4 HOURS [...] (Patient not taking: Reported on 04/05/2023) Insulin [place], Disposable, (BD ULTRA-FINE HORTENCIA PEN NEEDLE) 32 [...] which included preparing to see the patient, jure-ez-wagt patient care, completing clinical documentation, obtaining and/or reviewing separately obtained history, performing a medically appropriate examination, counseling and educating the patient/family/caregiver, ordering medications, tests, or procedures, independently interpreting results (not separately reported), and communicating results to the patient/family/caregiver. Electronically Signed: Dion Chavarria MD May 01, 2023 documented in this encounter [facility] 04-05-2023 Note [facility] 04-05-2023 History of Present illness Narrative Patient presents with: Hospital F/U HPI: Patient presents today for office visit for hospital follow up. -was requested for surgical clearance by Ib[facility] cueva. Hospitalized for fracture of the right tibial shaft. Moved to tcu for rehab. Had labs done currently at [facility]. Discussed that her clearance should usually should come from her in house doctor at [facility]. They are monitoring labs. They were concerned about her renal function has had anemia of chronic disease and ckd and had seen nephrology, Dr. Benavidez at [facility] previously. She had elected to follow with us up until her accident instead of traveling to nephrology out of the area. Also seeing [facility] hematology for her anemia. Discussed that they may want to have nephrology see her before surgery since they have not see her in several years. Just saw [facility] in August. No chest pain [...] Sodium Chloride (Deep Sea Nasal) 0.65 % Aerosol,[place] Active 2 SPRAY NASAL EVERY 4 HOURS [...] mouth every 8 hours as needed. Insulin [place], Disposable, (BD ULTRA-FINE HORTENCIA PEN NEEDLE) 32 gauge x 532 ndle Use one needle for each dose. 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 Final clearance would also need to be obtained from her primary care physician currently in charge of her care at [facility], Dr. Sharpe. She would need clearance from Cardiology. If her renal function remains poor, she may need clearance from nephrology. She has previously seen Dr. Benavidez at [facility]. She also may need clearance from [facility] hematology here in [place]. She is on cpap so that will [...] Stefan Moore MD Rto once discharged from [facility]. documented in this encounter [facility] 03-30-2023 Miscellaneous Notes Spoke with pt and she is still at [facility]. a 40 min Hospital FU booked for 04-06-23. Pt is checking with [facility] regarding transportation. Brittany Colby LPN TC to pt, left message to return call to office. Yusuf You LPN Needs follow up visit.-40 minute hospital/ECF follow up Type of form: Surgery Clearance Form received via fax When form is completed, Fax form to [phone] Form has been forwarded to Physician Desk: Dr. Oscar Francis LPN Pt calls to report she had appt with [facility] today for fracture of tibia and fibula. Pt reports she fell at the beginning of Feb. Pt reports she did break the bone near the knee. Pt reports she has to have surgery and [facility] is going to send OV notes to pcp. HERO Rodriguez at [facility] advised pt that kidney function is not good and pt needs to f/u with kidney specialist. Pt wanted Dr. Moore to know what is going on. Kaycee Contreras LPN documented in this encounter [facility] 01-20-2023 Note [facility] 01-20-2023 Note [facility] 01-20-2023 Note [facility] 01-20-2023 History of Present illness Narrative [...] 2023 2:51 PM documented in this encounter [facility] 01-13-2023 Note [facility] 01-13-2023 History of Present illness Narrative Patient presents for B-12 injection. Denies any problems at this time. Patient instructed on any SE of medication, verbalized understanding and agreed to proceed with treatment. Tolerated injection well. Erica Colorado LPN documented in this encounter [facility] 01-10-2023 Note [facility] 01-10-2023 History of Present illness Narrative [...] received a small bowel capsule endoscopy at [facility] she was also negative. 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 ^Disp: ^Rfl: Insulin [place], Disposable, (BD ULTRA-FINE HORTENCIA PEN NEEDLE) 32 [...] which included preparing to see the patient, rire-pq-egwa patient care, completing clinical documentation, obtaining and/or reviewing separately obtained history, performing a medically appropriate examination, counseling and educating the patient/family/caregiver, ordering medications, tests, or procedures, independently interpreting results (not separately reported), and communicating results to the patient/family/caregiver. Electronically Signed: Dion Chavarria MD January 10, 2023 12:24 PM documented in this encounter [facility] 01-02-2023 Note [facility] 01-02-2023 Instructions Marii Ruiz, RD - 01/02/2023 1:25 PM EDT Change to soy milk in cereal Change to lower carb protein supplements, aim for 3 per day Premier, Corelife, Fair life, Equate Watch sodium intake aim for ~1500 mg sodium, refer to handout provided Consider seated exercises as available on Youtube Include protein in meals, meat, cheeses etc. documented in this encounter [facility] 01-02-2023 History of Present illness Narrative [...] been trying to lose weight, belongs to [employer]. Has a goal weight of 190. Intake [...] usually Lunch - sandwich roast beef and [place], or left overs and fruit; Boost Snack [...] TIME: 1:00 PM documented in this encounter [facility] 12-22-2022 Miscellaneous Notes Patient has been [...] Camryn Kumar, RN documented in this encounter [facility] 12-19-2022 Miscellaneous Notes Order was released for the urine micro. Will need a new order please. documented in this encounter [facility] 12-16-2022 Note [facility] 12-16-2022 History of Present illness Narrative Patient presents for B-12 injection. Denies any problems at this time. Patient instructed on any SE of medication, verbalized understanding and agreed to proceed with treatment. Tolerated injection well. Erica Colorado LPN documented in this encounter [facility] 12-12-2022 Miscellaneous Notes Faxed to [facility] Cue[facility]. Her labs are actually significantly better. Fax copy of labs to her ortho documented in this encounter [facility] 12-10-2022 Note [facility] 12-10-2022 History of Present illness Narrative [...] mouth every 8 hours as needed. 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 3. Cardiomyopathy, nonischemic [...] Stefan Moore MD documented in this encounter [facility] 11-17-2022 Note [facility] 06-15-2023 History of Present illness Narrative Patient presents for B-12 injection. Denies any problems at this time. Patient instructed on any SE of medication, verbalized understanding and agreed to proceed with treatment. Tolerated injection well. Erica Colorado LPN documented in this encounter [facility] 11-10-2022 Note [facility] 11-09-2022 Miscellaneous Notes Scheduled appointment with [...] less than 10. documented in this encounter [facility] 11-07-2022 Note [facility] 11-07-2022 Instructions Monae Bowser APRN.REAL ESTATE SALES MANAGER - 11/07/2022 2:03 PM EDT Get the labwork. Finish the prednisone. Continue to watch sugars. documented in this encounter [facility] 11-07-2022 History of Present illness Narrative This is a 82 year old female who presents today with: Patient presents with: ER F/U: [facility] ER f/u dx: weakness/shortness of breath HISTORY OF PRESENT ILLNESS: Coni Romero is a 82 year old female. Patient presents with: ER F/U: [facility] ER f/u dx: weakness/shortness of breath Pt [...] <AGE 12 Tonsillectomy ALLERGIES Iodine, Metformin, Simvastatin, Pebvney-Hha-Jgz Reductase Inhibitors, and Vytorin 10-10 [Ezetimibe-Simvastatin] MEDICATIONS [...] mouth every 8 hours as needed. Insulin [place], Disposable, (BD ULTRA-FINE HORTENCIA PEN NEEDLE) 32 [...] with the plan. documented in this encounter [facility] 10-31-2022 Note [facility] 10-31-2022 History of Present illness Narrative Virtualist Progress Note Triage Call Triage source: Triage Call (Nurse Fish Farm Laborer, [facility] Triage, [facility] Phone Triage) Was patient downgraded (i.e. disposition other than go to the ED was advised)? No Mode of contact (phone call, [employer]ku, [employer], [employer], Skype, other): phone History/Physical Exam: The patient was seen on October 25 for nasal congestion, sinus pressure, and headache. Chest x-ray was negative. Was prescribed prednisone and doxycycline. Last night, the patient developed severe weakness which has persisted. At this point, she is unable to walk. Her daughter called nurse money order clerk and was given a call 911 [phone]. [...] in as Primary Virtualist, Secondary Virtualist, or [facility] Telehealth provider: Secondary SIGNATURE: Fito Saenz MD PATIENT NAME: Coni Romero DATE: October 31, 2022 documented in this encounter [facility] 10-31-2022 Miscellaneous Notes Reason for Call: [...] prefers to have niece drive her to [facility] [facility]. Stone Trimmer called and spoke to Virtualist, Dr. Fito Saenz, who okayed niece driving patient to ER now. Notified patient of same, they will leave now. Reason for Disposition [1] SEVERE weakness (i.e., unable to walk or barely able to walk, requires support) AND [2] new-onset or worsening Protocols used: Weakness (Generalized) and Xnbgzyj-WYGEQ-OR documented in this encounter [facility] 2022 Note [facility] 2022 Note [facility] 10-20-2022 Note [facility] 10-14-2022 Miscellaneous Notes Pt notified. She verbalized understanding. Yusuf You LPN She was a little anemic on her labs, but appears stable. I would follow ortho's recommendations, as they want everything to be optimized prior to surgery. Monae Bowser APRN.REAL ESTATE SALES MANAGER Patient calls and states that she was supposed to have hip replacement with Dr. Ochoa on 11/09/2022. Patient states that surgery was cancelled due to lab values being low for nutrition. Patient states she was told to drink 2 ensures a day instead of 1 which she has been drinking. They had also mentioned patient taking more iron pills. Patient asking if provider can take a look at labs that were done at [facility] and advise on these? Patient was told that she will have labs retested again is six weeks and then she will be put on schedule again. Please review and advise, Chacha Smith RN documented in this encounter [facility] 10-12-2022 Note [facility] 10-12-2022 Note [facility] 10-12-2022 Note [facility] 10-12-2022 History of Present illness Narrative Per Dr. Sepulveda, [place] was provided with Tubigrip and instructed/educated in [...] problems to feet. documented in this encounter [facility] 10-06-2022 Miscellaneous Notes Patient has been identified by name and date of :YES Requested Prescriptions Pending Prescriptions Disp Refills levothyroxine (SYNTHROID) 137 mcg tablet 90 tablet 3 Sig: Take 1 tablet by mouth once daily. Take on empty stomach. For thyroid. RX INSTRUCTIONS: Patient aware RX will be sent to pharmacy. No need to notify patient. Annel Dash documented in this encounter [facility] 09-30-2022 Miscellaneous Notes Form received. Will complete at OV. Yusuf You LPN Type of form: Surgery Clearance Patient has appt on 10/19/2022 Form received via fax When form is completed, Fax form to [phone] Form has been forwarded to Physician Mailbox: OTIS Ramirez LPN documented in this encounter [facility] 09-23-2022 Miscellaneous Notes Patient has been identified by name and date of : Yes Requested Prescriptions Pending Prescriptions Disp Refills blood sugar diagnostic (BLOOD GLUCOSE TEST) test strip 50 Strip 11 Sig: Test blood sugar(s) onetimes daily. Dx: Other DM Code E11.49 Insulin: Yes RUSSEL-08/23/22 Labs-08/31/22Apr-02/23/23 RX INSTRUCTIONS: Patient is out of test strips, please send today. Patient aware RX will be sent to pharmacy. Please call once sent. Ebony Boyce documented in this encounter [facility] 09-22-2022 Note [facility] 09-22-2022 History of Present illness Narrative Patient presents for B-12 injection. Denies any problems at this time. Patient instructed on any SE of medication, verbalized understanding and agreed to proceed with treatment. Tolerated injection well. Erica Colorado LPN documented in this encounter [facility] 09-05-2022 Miscellaneous Notes Patient has been identified by name and date of : Yes Requested Prescriptions Pending Prescriptions Disp Refills Lancets lancets 100 Each 11 Sig: Test glucose 2x/daily, 250.02, insulin use: yes RUSSEL-08/23/22 Labs-08/31/22 NOV-02/23/23 RX INSTRUCTIONS: Patient aware RX will be sent to pharmacy. No need to notify patient. Meredith Earnestine Pss documented in this encounter [facility] 08-23-2022 Note [facility] 08-23-2022 Miscellaneous Notes Addended by: STEFAN MOORE on: 08/23/2022 03:49 PM Modules accepted: Orders documented in this encounter [facility] 08-23-2022 History of Present illness Narrative [...] 1.00 - 4.00 k/uL 0.93 (L) 1.48 Wise% % 7.0 5.7 Abs Wise <0.87 k/uL 0.35 0.37 Eosin% % 4.2 [...] mouth every 8 hours as needed. 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 Still with pain. Sees Dr Ochoa for her hip. All other reviewed and [...] use of insulin ([facility]) - ICD9: 250.60, 357.2, ICD10: E11.42 (primary diagnosis) - stable. - BASIC METABOLIC PNL - HGB A1C 2. Paroxysmal atrial fibrillation (HCC) - ICD9: 427.31, ICD10: I48.0 - doing well. 3. Pure hypercholesterolemia - ICD9: 272.0, ICD10: E78.00 - follow labs. 4. Type 2 diabetes mellitus 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 peripheral angiopathy without gangrene, without long-term current use of insulin ([facility]) - ICD9: 250.70, 443.81, ICD10: E11.51 - Controlled - Continue current medications - ALBUMIN/CREAT RATIO RND UR 5. DAYANA (obstructive sleep apnea) - ICD9: 327.23, ICD10: G47.33 - on cpap 6. B12 deficiency - ICD9: 266.2, ICD10: E53.8 - VITAMIN B12 BLOOD 7. Type 2 diabetes mellitus with stage 3b chronic kidney disease, without long-term current use of insulin ([facility]) - ICD9: 250.40, 585.3, ICD10: E11.22, N18.32 [...] Stefan Moore MD documented in this encounter [facility] 08-03-2022 Note [facility] 08-01-2022 Note [facility] 07-25-2022 Note [facility] 07-25-2022 History of Present illness Narrative Domingo Knutson MD Department of Orthopaedics [facility] [address] [facility] [address] Dept: [phone] Dept July 25, 2022 CHIEF COMPLAINT: New and Pain of the Left Hand HPI Patient here today for left middle finger. She denies any pain. States she fell about 6 weeks ago and put her hand out to catch herself. She was seen at the [facility] and x-ray taken. She states all of [...] DEGENERATIVE CHANGE, JOINT SPACE NARROWING AND OSTEOPHYTOSIS. Head Animal Keeper: TERESA Transcribe Date/Time: Jun 10 2022 12:09P Dictated [...] 1 MILLILITER INTRAMUSCULARLY ONCE A MONTH Insulin [place], Disposable, (BD ULTRA-FINE HORTENCIA PEN NEEDLE) 32 [...] q 4 WEEKS Allergies: Iodine, Metformin, Simvastatin, Hpdcrft-Owe-Ddi Reductase Inhibitors, and Vytorin 10-10 [Ezetimibe-Simvastatin] ROS: [...] physician via [place] mail. Chun Brewster [address] [facility] [address] Stefan Moore MD [address] [facility] [address] Domingo Knutson MD documented in this encounter [facility] 07-13-2022 Miscellaneous Notes Patient notified. Verbalized [...] Erica Colorado LPN documented in this encounter [facility] 07-13-2022 Note [facility] 07-13-2022 History of Present illness Narrative [...] Erica Colorado LPN documented in this encounter [facility] 07-01-2022 Note [facility] 07-01-2022 Note HNO ID: [id number] Author: Carly Landrum RN Service: ? Author Type: ? Type: Progress Notes Filed: 07/01/2022 3:06 PM Note Text: Patient presents with: Left Foot - Established Patient, Diabetic Foot Care Right Foot - Established Patient, Diabetic Foot Care [facility] 07-01-2022 History of Present illness Narrative [...] Objective: Patient presents to clinic ambulating in [facility] Vasc: DP and PT pulses are [...] Diabetic Foot Care documented in this encounter [facility] 07-01-2022 Instructions Dali Sepulveda - 07/01/2022 [...] (or decreased sensation in your feet) a program management manager should always cut your toenails. Be Careful [...] Go to your health care provider or program management manager to treat these conditions. documented in this encounter [facility] 06-29-2022 Miscellaneous Notes Spoke with patient. [...] Erica Colorado LPN documented in this encounter [facility] 06-28-2022 Note [facility] 06-28-2022 History of Present illness Narrative [...] Erica Colorado LPN documented in this encounter [facility] 06-10-2022 Miscellaneous Notes Called patient went over xray results. She will make her follow up appt now with ortho. Patient was okay with this. documented in this encounter [facility] 06-08-2022 History of Present illness Narrative Patient [...] 8 hours as needed. 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 Ibeth springer came to check her out everything was fine, but this am she is unable to bend her middle finger some swelling just does not know what hand. Nurse is going to have patient report to our [facility] care. documented in this encounter [facility] 06-07-2022 Miscellaneous Notes Letter set on [...] Chacha Smith RN documented in this encounter [facility] 05-24-2022 Miscellaneous Notes Addended by: STEFAN MOORE on: 05/24/2022 01:19 PM Modules accepted: Orders documented in this encounter [facility] 05-24-2022 History of Present illness Narrative [...] BP at home. Has home nurse from [facility] who comes weekly and checks it. Has [...] mouth every 8 hours as needed. 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 Denies any problems at this time. Patient instructed on any SE of medication, verbalized understanding and agreed to proceed with treatment. Tolerated injection well. Erica Colorado LPN documented in this encounter [facility] 05-02-2022 History of Present illness Narrative PATIENT NAME: Coni Romero. CLINIC NO: [id number]. ATTENDING PHYSICIAN: Yadira Chaudhry MD. DATE OF [...] her anemia and she was admitted to [facility] in July. She underwent both an upper and lower endoscopy which did not reveal any obvious bleeding source. She subsequently was sent to [facility] where she had a capsule endoscopy which [...] Lymph 1.00 - 4.00 k/uL 0.93 (L) Wise% % 7.0 Abs Wise <0.87 k/uL 0.35 Eosin% % 4.2 Abs [...] Dr. Stefan Moore documented in this encounter [facility] 04-08-2022 Miscellaneous Notes Patient is scheduled [...] would proceed with current medications. Pharmacist from [facility] calls and states that patient is on amiodarone which has a reaction with both Levaquin and fluconazole. These medications taken together and cause a prolong QT interval and can cause an arrhyhtmia. Please review and advise, Chacha Smith RN documented in this encounter [facility] 04-07-2022 Instructions Mason King PA-C - [...] in 10 days. 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 2 Diabetes Mellitus With Stage 3b Chronic Kidney Disease, Without Long-Term Current Use of Insulin ([facility]) Hyperparathyroidism Due to Vitamin D Deficiency ([facility]) Secondary Hypertension Due to Renal Disease Hypothyroidism Cardiomyopathy, Nonischemic ([facility]) Dayana (Obstructive Sleep Apnea) Type 2 Diabetes Mellitus With Diabetic Peripheral Angiopathy Without Gangrene, Without Long-Term Current Use of Insulin ([facility]) Anemia Due to Stage 3a Chronic Kidney Disease ([facility]) Iron Deficiency Anemia Anemia Due to Stage 3b Chronic Kidney Disease ([facility]) Anemia Due to Blood Loss Current Outpatient [...] mouth every 8 hours as needed. Insulin [place], Disposable, (BD ULTRA-FINE HORTENCIA PEN NEEDLE) 32 [...] Mason King PA-C documented in this encounter [facility] 04-06-2022 Miscellaneous Notes nurse calling on behalf of patient stating patient has persistent cough and possible oral thrush. Scheduled appointment for patient tomorrow AM. Karissa Harden, RN documented in this encounter [facility] 04-01-2022 Miscellaneous Notes See other mychart. [...] results of xray documented in this encounter [facility] 03-29-2022 Miscellaneous Notes Arlene with [facility] called for last office visit to be faxed to [phone]. Pt was identified by name and date of . Done. Brittany Colby LPN documented in this encounter [facility] 03-29-2022 Miscellaneous Notes Changed to TE documented in this encounter [facility] 03-29-2022 Miscellaneous Notes Patient has been [...] Darling Guo RN documented in this encounter [facility] 03-28-2022 Instructions M Tyree King PA-C - 03/28/2022 4:18 PM EDT Acute Bronchitis What is acute bronchitis? Acute bronchitis is an infection of the bronchial (say: xcens-iqm-aym ) tree. The bronchial tree is made [...] subject, talk to your family doctor. Copyright [id number] [employer] Permission is granted [...] its stimulant effects. documented in this encounter [facility] 03-28-2022 History of Present illness Narrative [...] blood or mucus. Patient took Imodium AD rpki-yzy-kljzpqn twice which seemed to slow it down. Today she has had approximately 3 smaller watery diarrhea stools. No vomiting. Presents home COVID testing x2 which were negative. Also identifies that she took DayQuil and Coricidin which did not seem to help. Last night she got concerned because she did not have the strength to stand called [facility], 03/27/[address] [facility] with, chills, body aches since yesterday as [...] mouth every 8 hours as needed. Insulin [place], Disposable, (BD ULTRA-FINE HORTENCIA PEN NEEDLE) 32 [...] Mason King PA-C documented in this encounter [facility] 03-24-2022 History of Present illness Narrative Patient presents for B-12 injection. Denies any problems at this time. Patient instructed on any SE of medication, verbalized understanding and agreed to proceed with treatment. Tolerated injection well. Erica Colorado LPN documented in this encounter [facility] 03-23-2022 History of Present illness Narrative [...] healing. Completed doxy. documented in this encounter [facility] 03-23-2022 Instructions Dali Sepulveda - 03/23/2022 [...] (or decreased sensation in your feet) a program management manager should always cut your toenails. Be Careful [...] Go to your health care provider or program management manager to treat these conditions. documented in this encounter [facility] 03-22-2022 Miscellaneous Notes Patient MyChart message requesting the following refill. Requested Prescriptions Pending Prescriptions Disp Refills gabapentin (NEURONTIN) 300 mg capsule 270 capsule 1 Sig: Take 1 capsule by mouth three times daily for 180 days. Patient last appointment: 02/14/2022 Patient Phone numbers: [phone] (home) Request is for script(s) to be escript to mail order [facility]. Chelle Watts documented in this encounter [facility] 03-07-2022 Miscellaneous Notes Brody Bermudez-a nurse with [facility] calling to state patient has been referred to them by Dr. Cortez in Cardiology. Brody asking for patient's recent OV note be faxed to [phone]. Contacted patient to verify consent, and verbal consent given. Information faxed as requested. Patricia Salazar RN documented in this encounter [facility] 03-03-2022 Miscellaneous Notes Patient has been [...] Lupe Vyas LPN documented in this encounter [facility] 03-01-2022 Miscellaneous Notes Lab appointment changed as directed below. Chrissy Horowitz Can you change lab appt. From 04/04/22 to 03/11/22 so orders will be in system when pt. Comes in on . Pt. Is aware. Nadiya Patterson LPN documented in this encounter [facility] 02-14-2022 History of Present illness Narrative [...] mouth every 8 hours as needed. Insulin [place], Disposable, (BD ULTRA-FINE HORTENCIA PEN NEEDLE) 32 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 Jntwtck-Aah-Cik Red* Other: See Comments myopathy Vytorin 10-10 [...] Stefan Moore MD documented in this encounter [facility] documented as of this encounter (statuses as of 02/14/2022) [facility] of Past illness Narrative* Problem [...] of this encounter (statuses as of 03/01/2022) [facility] Narrative* Problem Noted Date Resolved Date Cellulitis of left lower extremity 02/14/2022 02/14/2022 Obesity, Class I, BMI 30-34.9 11/10/2017 02 / Type 2 DM with CKD stage 4 [...] of this encounter (statuses as of 03/03/2022) [facility] Narrative* Problem [...] of this encounter (statuses as of 03/03/2022) [facility] Narrative* Problem [...] of this encounter (statuses as of 03/07/2022) [facility] Narrative* Problem [...] of this encounter (statuses as of 03/22/2022) [facility] Narrative* Problem [...] of this encounter (statuses as of 03/24/2022) [facility] Narrative* Problem [...] of this encounter (statuses as of 03/25/2022) [facility] Narrative* Problem [...] of this encounter (statuses as of 03/28/2022) [facility] Narrative* Problem [...] of this encounter (statuses as of 03/29/2022) [facility] Narrative* Problem [...] of this encounter (statuses as of 03/29/2022) [facility] Narrative* Problem [...] of this encounter (statuses as of 03/30/2022) [facility] Narrative* Problem [...] of this encounter (statuses as of 04/01/2022) [facility] Narrative* Problem [...] of this encounter (statuses as of 04/01/2022) [facility] Narrative* Problem [...] of this encounter (statuses as of 04/06/2022) [facility] N[facility]ative* Problem [...] of this encounter (statuses as of 04/07/2022) [facility] N[facility]ative* Problem [...] of this encounter (statuses as of 04/08/2022) [facility] Narrative* Problem [...] of this encounter (statuses as of 05/03/2022) [facility] N[facility]ative* Problem [...] of this encounter (statuses as of 05/24/2022) [facility] N[facility]ative* Problem [...] of this encounter (statuses as of 06/09/2022) [facility] Narrative* Problem [...] of this encounter (statuses as of 06/09/2022) [facility] Narrative* Problem [...] of this encounter (statuses as of 06/11/2022) [facility] Narrative* Problem [...] of this encounter (statuses as of 06/28/2022) [facility] Narrative* Problem [...] of this encounter (statuses as of 06/29/2022) [facility] Narrative* Problem [...] of this encounter (statuses as of 07/01/2022) [facility]* Problem [...] of this encounter (statuses as of 07/13/2022) [facility] Narrative* Problem [...] of this encounter (statuses as of 07/13/2022) [facility]* Problem [...] of this encounter (statuses as of 07/25/2022) [facility]* Problem [...] of this encounter (statuses as of 08/03/2022) [facility]* Problem [...] of this encounter (statuses as of 08/23/2022) [facility]* Problem [...] of this encounter (statuses as of 09/05/2022) [facility]* Problem [...] of this encounter (statuses as of 09/23/2022) [facility]arrative* Problem [...] of this encounter (statuses as of 09/23/2022) [facility]arrative* Problem [...] of this encounter (statuses as of 09/30/2022) [facility]* Problem [...] of this encounter (statuses as of 10/06/2022) [facility]* Problem [...] of this encounter (statuses as of 10/13/2022) [facility]* Problem [...] of this encounter (statuses as of 10/15/2022) [facility]* Problem [...] of this encounter (statuses as of 10/31/2022) [facility]* Problem [...] of this encounter (statuses as of 11/08/2022) [facility]* Problem [...] of this encounter (statuses as of 11/09/2022) [facility]* Problem [...] of this encounter (statuses as of 11/17/2022) [facility]* Problem [...] of this encounter (statuses as of 12/10/2022) [facility]* Problem [...] of this encounter (statuses as of 12/13/2022) [facility]* Problem [...] of this encounter (statuses as of 12/16/2022) [facility]* Problem [...] of this encounter (statuses as of 12/19/2022) [facility]* Problem [...] of this encounter (statuses as of 12/22/2022) [facility]* Problem [...] of this encounter (statuses as of 01/03/2023) [facility]* Problem [...] of this encounter (statuses as of 01/11/2023) [facility]* Problem [...] of this encounter (statuses as of 01/13/2023) [facility]* Problem [...] of this encounter (statuses as of 03/30/2023) [facility]* Problem [...] of this encounter (statuses as of 04/05/2023) [facility]* Problem [...] of this encounter (statuses as of 04/09/2023) [facility]* Problem [...] of this encounter (statuses as of 04/09/2023) [facility]* Problem [...] of this encounter (statuses as of 05/02/2023) [facility]* Problem [...] of this encounter (statuses as of 05/12/2023) [facility]* Problem [...] of this encounter (statuses as of 05/12/2023) [facility]* Problem [...] of this encounter (statuses as of 05/12/2023) [facility]* Problem [...] of this encounter (statuses as of 05/18/2023) [facility] Miscellaneous Notes* Telephone Encounter - Yusuf You LPN - 02/14/2022 8:41 AM EDT TC to pt, scheduled pt for appt later in the day. Yusuf You LPN [facility] Miscellaneous Notes* Telephone Encounter - Chelsea [...] advise, Chacha Smith RN [facility] History of Present illness Narrative* Stefan [...] mouth every 8 hours as needed. Insulin [place], Disposable, (BD ULTRA-FINE HORTENCIA PEN NEEDLE) 32 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 Huaftpd-Lzv-Opb Red* Other: See Comments myopathy Vytorin 10-10 [...] RTO in two weeks. [facility] History of Present illness Narrative* Erica Colorado LPN - 01/27/2022 1:31 PM EDT Patient presents for B-12 injection. Denies any problems at this time. Patient instructed on any SEof medication, verbalized understanding and agreed to proceed with treatment. Tolerated injection well. Erica Colorado LPN [facility] Miscellaneous Notes* Telephone Encounter - Darling Guo RN - 01/24/2022 4:09 PM EDT Pt called and is notified of providers results and instructions. Pt voices understanding. Darling Guo RN * Telephone Encounter - Flor Boyle APRN.OTIS - 01/24/2022 3:34 PM EDT Can [...] has any questions. Thank you. Flor Boyle APRN.REAL ESTATE SALES MANAGER [facility] History of Present illness Narrative* RT [...] IV DATA: Not applicable SIGNED BY: RT Scooter(R) January 24, 2022 2:04 PM documented in [facility] Instructions* Patient Instructions* Flor Boyle APRN.CNP - 01/24/2022 11:56 AM EDT 1.) Get Repeat chest xray and xray of right ankle. 2.) Schedule appointment for ultrasound of leg. 3.) Follow up pending test results or sooner as needed. May use Lasix for the next 2 days to help with leg swelling Continue to elevate the leg. documented in [facility] History of Present illness Narrative* Flor [...] for right leg swelling. Was seen in [facility] 01/14/2022 after injury. Initially toes very tender [...] <AGE 12 Tonsillectomy ALLERGIES Iodine, Metformin, Simvastatin, Gzyrmhn-Vmq-Shq Reductase Inhibitors, and Vytorin 10-10 [Ezetimibe-Simvastatin] MEDICATIONS [...] mouth every 8 hours as needed. Insulin [place], Disposable, (BD ULTRA-FINE HORTENCIA PEN NEEDLE) 32 [...] discussed and patient voices understanding. Flor Boyle APRN.CNP This note was partially generated using [employer] voice recognition system. Note was reviewed for accuracy. There may be minor misspellings or grammar miscues with [employer] voice recognition. [facility] Miscellaneous Notes* Telephone Encounter - Chelsea Cartwright LPN - 01/24/2022 9:16 AM EDT Patient scheduled. documented in this [facility] Instructions* Patient Instructions* Ana Bell APRN.CNP - 01/14/2022 12:55 PM EDT - RICE therapy - see patient instructions for further recommendations. - F/U with PCP in 5-7 days or before if worse. - Discussed Red Flag signs and when to go to ER. - Reviewed plan of care and DC papers with patient. Verbalized understanding. documented in [facility] History of Present illness Narrative* Ana Bell APRN.REAL ESTATE SALES MANAGER - 01/14/2022 12:16 PM EDT Images from [...] history is provided by the patient. No foreign language instructor was used. Review of Systems Constitutional: Negative. [...] <AGE 12 Tonsillectomy ALLERGIES Iodine, Metformin, Simvastatin, Kdwvood-Woi-Uzd Reductase Inhibitors, and Vytorin 10-10 [Ezetimibe-Simvastatin] MEDICATIONS [...] 8 hours as needed. ^Disp: ^Rfl: Insulin [place], Disposable, (BD ULTRA-FINE HORTENCIA PEN NEEDLE) 32 [...] No radiographic evidence of acute osseous injury. Head Animal Keeper: TERESA Transcribe Date/Time: Jan 14 2022 12:45P Dictated by : DEE DENG MD Rest and ice and elevate foot for comfort. Give it a week or two and if it does not seem to be getting better then follow up with ortho for further evaluation. Order was placed in case it is needed. Ana Bell APRN.REAL ESTATE SALES MANAGER documented [facility] Miscellaneous Notes* Telephone Encounter - Chelle Watts - 01/04/2022 12:52 PM EDT Patient informed and verbalized understanding. No questions at this time. Chelle Watts * Telephone Encounter - Stefan Moore MD - 01/04/2022 12:46 PM EDT Her gfr is a little lower. Push fluids a little more and recheck bmp in two weeks documented in [facility] History of Present illness Narrative* Stefan [...] 2 days and skipping a dose per method consultant. ) dulaglutide (TRULICITY) 1.5 mg/0.5 mL pen [...] mouth every 8 hours as needed. Insulin [place], Disposable, (BD ULTRA-FINE HORTENCIA PEN NEEDLE) 32 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 Yrggwrh-Yot-Nwn Red* Other: See Comments myopathy Vytorin 10-10 [...] METABOLIC PNL Stefan Moore documented [facility] encounter[facility] History of Present illness Narrative* Erica Colorado LPN - 12/30/2021 12:56 PM EDT Patient presents for B-12 injection. Denies any problems at this time. Patient instructed on any SEof medication, verbalized understanding and agreed to proceed with treatment. Tolerated injection well. Erica Colorado LPN documented in this encounterSouth[facility]07-21-2022 Instructions* Patient Instructions* Mason King PA-C - 12/23/2021 10:13 AM EDT Complete antibiotic. Push fluids, rest. Can alter lasix according the parameters: Monitor daily weight If weight > 3lbs increase + with shortness of breath or increase leg swelling take lasix 20mg documented in this encounterSouth[facility]07-21-2022 History of Present illness Narrative* Mason [...] or diarrhea? No Additional history follows with [facility]. Component Latest Ref Rng & Units [...] diabetes mellitus 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 neuropathy, unspecified whether senior care insulin use (hcc) Type 2 diabetes mellitus [...] 1.00 - 4.00 k/uL 0.91 (L) 1.19 Wise% % 6.9 5.4 Abs Wise <0.87 k/uL 0.33 0.48 Eosin% % 3.5 [...] PROBLEM LIST Esophageal Reflux Paroxysmal Atrial Fibrillation ([facility]) Anxiety State Osteoarthritis Dermatophytosis of Nail Type 2 Diabetes Mellitus With Diabetic Polyneuropathy, Without Long-Term Current Use of Insulin ([facility]) Osteopenia Thoracic Or Lumbosacral Neuritis Or Radiculitis, Unspecified Abnormality of Gait Statin Myopathy Pvd (Peripheral Vascular Disease) ([facility]) Gout With Manifestations B12 Deficiency Pure Hypercholesterolemia 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 2 Diabetes Mellitus With Stage 3b Chronic Kidney Disease, Without Long-Term Current Use of Insulin ([facility]) Hyperparathyroidism Due to Vitamin D Deficiency ([facility]) Secondary Hypertension Due to Renal Disease Hypothyroidism Cardiomyopathy, Nonischemic ([facility]) Dayana (Obstructive Sleep Apnea) Type 2 Diabetes Mellitus With Diabetic Peripheral Angiopathy Without Gangrene, Without Long-Term Current Use of Insulin ([facility]) Anemia Due to Stage 3a Chronic Kidney Disease (Hcc) Iron Deficiency Anemia Anemia Due to Stage 3b Chronic Kidney Disease ([facility]) Anemia Due to Blood Loss Current Outpatient [...] 2 days and skipping a dose per method consultant. ) 90 tablet 3 dulaglutide (TRULICITY) 1.5 [...] mouth every 8 hours as needed. Insulin [place], Disposable, (BD ULTRA-FINE HORTENCIA PEN NEEDLE) 32 [...] 425.4, ICD10: I42.8 4. Paroxysmal atrial fibrillation ([facility]) - ICD9: 427.31, ICD10: I48.0 Stable, follows with [facility] lasix prn orders: see d/c instructions. [facility] 5. 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 PVD (peripheral vascular disease) ([facility]) - ICD9: 443.9, ICD10: I73.9 No current sx 7. DAYANA (obstructive sleep apnea) - ICD9: 327.23, ICD10: G47.33 compliant with CPAP 8. Hyperparathyroidism due to vitamin D deficiency ([facility]) - ICD9: 252.02, ICD10: E21.1 resolved 9. 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 - Continue current medications - Ophthalmology referral for eval/management of diabetic eye changes: has appt - Encouraged regular aerobic exercise and weight loss 10. Type 2 diabetes mellitus with stage 3b chronic kidney disease, without long- term current use ofinsulin ([facility]) - ICD9: 250.40, 585.3, ICD10: E11.22, N18.32 [...] worsening. Mason King PA-C documented in this encounterSouthwest [facility]07-19-2022 Miscellaneous Notes* Telephone Encounter - Monika [...] scheduled. Dao Vieyra APRN.CNP documented in this encounterSouthwest [facility]07-14-2022 Miscellaneous Notes* Telephone Encounter - Stefan [...] since. Patient reports she forgot she has [employer] cough medicine and will take some of that to help her cough. 1. ONSET: 12/14/21Monday 2. SEVERITY: coughing mainly during day-moderate 3. SPUTUM:none 4. HEMOPTYSIS: No 5. DIFFICULTY BREATHING: No 6. FEVER: No 7. CARDIAC HISTORY: yes, a-fib 8. LUNG HISTORY: no 9. PE RISK FACTORS:no 10. OTHER SYMPTOMS: Denies SOB, wheezing or chest pain 12. TRAVEL:no Protocols used: COUGH - ACUTE [id number] documented in this encounterSouthwest [facility] Center07-14-2022 Miscellaneous Notes* Telephone Encounter - Flavia [...] to pharmacy. Flavia Tran documented in this encounterSouthwest [facility] Center07-07-2022 Miscellaneous Notes* Telephone Encounter - Darling [...] you. Darling Guo RN documented in this encounterSouthwest [facility] Center07-01-2022 History of Present illness Narrative* Dali [...] Patient, Diabetic Foot Care documented in this encounterSouthwest [facility] Center07-01-2022 Instructions* Patient Instructions* Dali Sepulveda - [...] (or decreased sensation in your feet) a program management manager should always cut your toenails. Be Careful [...] Go to your health care provider or program management manager to treat these conditions. documented in this encounterSouthwest General [facility] Center06-30-2022 History of Present illness Narrative* Erica [place] LPN - 12/02/2021 1:31 PM EDT Patient presents for B-12 injection. Denies any problems at this time. Patient instructed on any SEof medication, verbalized understanding and agreed to proceed with treatment. Tolerated injection well. Erica Colorado LPN documented in this encounterSouthwest [facility] Center06-03-2022 History of Present illness Narrative* Erica Colorado LPN - 11/05/2021 10:03 AM EDT Patient presents for B-12 injection. Denies any problems at this time. Patient instructed on any SEof medication, verbalized understanding and agreed to proceed with treatment. Tolerated injection well. Erica Colorado LPN documented in this encounterSouthwest [facility] Center05-27-2022 History of Present illness Narrative* Stefan [...] 2 days and skipping a dose per method consultant. ) dulaglutide (TRULICITY) 1.5 mg/0.5 mL pen [...] mouth every 8 hours as needed. Insulin [place], Disposable, (BD ULTRA-FINE HORTENCIA PEN NEEDLE) 32 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 Pehedzy-Ckd-Laq Red* Other: See Comments myopathy Vytorin 10-10 [...] re-assessment reviewed with patient in detail. - tesdaria dianen. Call with update on Monday Stefan Moore I spent 10 minutes in the visit, with more than 50% of the total [id number]-[id number] time of the visit in counseling / coordination of care. documented in this encounterSouthwest [facility] Center05-26-2022 Miscellaneous Notes* Telephone Encounter - Chelsea [...] if she can take them? Patient uses [facility] for her pharmacy. Please advise documented in this encounterSouthwest General [facility] Center05-24-2022 Miscellaneous Notes* Telephone Encounter - ÓSCAR [...] Yes, No ÓSCAR Stark documented in this encounterSouthwest General [facility] Center05-19-2022 Miscellaneous Notes* Telephone Encounter - Xochilt Watson Pss - 10/21/2021 12:58 PM EDT Patient called to speak with Flor regarding a shawl that she brought in last week. Please call when able. documented in this encounterSouthwest [facility] Center05-07-2022 Miscellaneous Notes* Telephone Encounter - Yusuf You LPN - 10/09/2021 9:24 AM EDT Patient phones requesting refills as follows: Pending Prescriptions Disp Refills CARVEDILOL 25 MG TABLET 360 tablet 0 Sig: Take 1 tablet by mouth twice daily. KP: No RUSSEL 08/02/21 NOV 01/31/22 Please review and advise. Yusuf You LPN documented in this encounterSouthwest General Health Center05-02-2022 Instructions* Patient Instructions* Yadira Chaudhry MD - 10/04/2021 4:33 PM EDT Stay on iron twice daily and vitamin B12 injection documented in this encounterSouthwest General Health Center05-02-2022 History of Present illness Narrative* Yadira Chaudhry MD - 10/04/2021 4:27 PM EDT PATIENT NAME: Coni Romero. CLINIC NO: [id number]. ATTENDING PHYSICIAN: Yadira Chaudhry MD. DATE OF [...] her anemia and she was admitted to [facility] in July. She underwent both an upper and lower endoscopy which did not reveal any obvious bleeding source. She subsequently was sent to [facility] where she had a capsule endoscopy which [...] Lymph 1.00 - 4.00 k/uL 0.91 (L) Wise% % 6.9 Abs Wise <0.87 k/uL 0.33 Eosin% % 3.5 Abs [...] Cc: Dr. Stefan Moore documented in this encounterSouthwest [facility] Center05-02-2022 Miscellaneous Notes* Telephone Encounter - Suad [...] MA. * Telephone Encounter - Sheree Johnson [facility] - 10/02/2021 8:24 AM EDT Patient has [...] advise. Sheree Johnson Pss documented in this encounterSouthwest General Health Center04-29-2022 History of Present illness Narrative* Erica Colorado LPN - 10/01/2021 9:59 AM EDT Patient presents for B-12 injection. Denies any problems at this time. Patient instructed on any SEof medication, verbalized understanding and agreed to proceed with treatment. Tolerated injection well. Erica Colorado LPN documented in this encounterSouthwest [facility] Center03-30-2022 History of Present illness Narrative* Dali [...] Established Patient, Nail Care documented in this encounterSouthwest General Health Center03-30-2022 Instructions* Patient Instructions* Dali Sepulveda - [...] (or decreased sensation in your feet) a program management manager should always cut your toenails. Be Careful [...] Go to your health care provider or program management manager to treat these conditions. documented in this encounterSouthwest General [facility] Center03-28-2022 History of Present illness Narrative* Erica Colorado LPN - 08/30/2021 9:07 AM EDT Patient presents for B-12 injection. Denies any problems at this time. Patient instructed on any SEof medication, verbalized understanding and agreed to proceed with treatment. Tolerated injection well. Erica Colorado LPN documented in this encounterSouthwest General [facility] Center03-24-2022 Miscellaneous Notes* Telephone Encounter - Ebony Manzano Pss - 08/26/2021 11:37 AM EDT Patient has [...] patient. Ebony Manzano Pss documented in this encounterSouthwest [facility] Center06-16-2021 History of Past illness Narrative* Problem [...] of this encounter (statuses as of 08/30/2021) [facility] of Past illness Narrative* Problem [...] of this encounter (statuses as of 09/01/2021) [facility] of Past illness Narrative* Problem [...] of this encounter (statuses as of 09/18/2021) [facility] of Past illness Narrative* Problem [...] of this encounter (statuses as of 09/24/2021) [facility] of Past illness Narrative* Problem [...] of this encounter (statuses as of 10/01/2021) [facility] of Past illness Narrative* Problem [...] of this encounter (statuses as of 10/04/2021) [facility] NoteHNO ID: [id number] Author: Esteban Mao MD Service: ? Author [...] and pill endoscopy. She has seen a district supervisor and has an appointment to follow-up with [...] 05/2014 left - COLONOSCOP W/ OR W/O [facility] SPEC 04/14/2005 Colonoscopy - COLONOSCOP W/ OR W/O [facility] SPEC 01/21/2016 Colonoscopy - COLONOSCOPY GEN ANES 07/31/2020 External/internal hemorrhoids - EGD 07/31/2020 Mild Gastritis - EGD W/O [facility] SPECIMEN W/BX 06/25/2007 - LAPAROSCOPIC [...] - Simvastatin Contraindication-Medical Surgical statin myopathy - Qfptymh-Uqh-Zio Red* Other: See Comments myopathy - Vytorin [...] per week. Discard Pen After - Insulin [place], Disposable, (BD ULTRA-FINE HORTENCIA PEN NEEDLE) 32 gauge x 532 ndle Use one needle for each dose. [...] glucose 2x/daily, 250.02, i (more content not included)...[facility] History of Past illness Narrative* Problem Noted [...] of this encounter (statuses as of 10/05/2021) [facility] Narrative* Problem [...] of this encounter (statuses as of 10/09/2021) [facility] Narrative* Problem [...] of this encounter (statuses as of 10/21/2021) [facility] Narrative* Problem [...] of this encounter (statuses as of 10/26/2021) [facility] Narrative* Problem [...] of this encounter (statuses as of 10/28/2021) [facility] Narrative* Problem [...] of this encounter (statuses as of 10/29/2021) [facility] Narrative* Problem [...] of this encounter (statuses as of 11/05/2021) [facility] Narrative* Problem [...] of this encounter (statuses as of 12/02/2021) [facility] Narrative* Problem [...] of this encounter (statuses as of 12/03/2021) [facility] Narrative* Problem [...] of this encounter (statuses as of 12/09/2021) [facility] Narrative* Problem [...] of this encounter (statuses as of 12/16/2021) [facility] Narrative* Problem [...] of this encounter (statuses as of 12/16/2021) [facility] Narrative* Problem [...] of this encounter (statuses as of 12/21/2021) [facility] Narrative* Problem [...] of this encounter (statuses as of 12/23/2021) [facility] Narrative* Problem [...] of this encounter (statuses as of 12/30/2021) [facility] Narrative* Problem [...] of this encounter (statuses as of 12/31/2021) [facility] N[facility]ative* Problem [...] of this encounter (statuses as of 01/04/2022) [facility] N[facility]* Problem [...] of this encounter (statuses as of 01/13/2022) [facility] N[facility]ative* Problem [...] of this encounter (statuses as of 01/14/2022) [facility] N[facility]ative* Problem [...] of this encounter (statuses as of 01/24/2022) [facility] Narrative* Problem [...] of this encounter (statuses as of 01/24/2022) [facility] N[facility]* Problem [...] of this encounter (statuses as of 01/24/2022) [facility] N[facility]ative* Problem [...] of this encounter (statuses as of 01/25/2022) [facility] N[facility]* Problem [...] of this encounter (statuses as of 01/27/2022) [facility] N[facility]* Problem [...] of this encounter (statuses as of 01/31/2022) [facility] Narrative* Problem [...] of this encounter (statuses as of 02/10/2022) [facility] Narrative* Problem [...] of this encounter (statuses as of 02/14/2022) [facility] Evaluation note* Diagnosis B12 deficiency- Primary Other B-complex deficiencies documented in this encounter [facility]* Diagnosis Onychomycosis- Primary Dermatophytosis of nail Pain in toe of right foot Pain in limb Pain in toe of left foot Pain in limb Diabetic polyneuropathy associated with type 2 diabetes mellitus (HCC) documented in this encounter [facility]* Diagnosis Type 2 diabetes mellitus 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 neuropathy, unspecified whether senior care insulin use (HCC) documented in this encounter [facility]* Diagnosis Anemia due to stage 3b chronic kidney disease (HCC)- Primary Iron deficiency anemia, unspecified iron deficiency anemia type [facility] Diagnosis B12 deficiency- Primary Other B-complex deficiencies documented [facility] this encounter [facility]* Diagnosis Anemia due to stage 3b chronic kidney disease (HCC)- Primary B12 deficiency Other B-complex deficiencies [facility]* Diagnosis Secondary hypertension due to renal disease Other secondary hypertension, unspecified documented [facility] this encounter [facility]* Diagnosis COVID-19- Primary documented [facility] this encounter [facility]* Diagnosis B12 deficiency- Primary Other B-complex deficiencies [facility] this encounter [facility]* Diagnosis B12 deficiency- Primary Other B-complex deficiencies [facility] this encounter [facility]* Diagnosis Onychomycosis- Primary Dermatophytosis of nail Pain in toe of right foot Pain in limb Pain in toe of left foot Pain in limb Diabetic polyneuropathy associated with type 2 diabetes mellitus (HCC) Hammer toes of both feet documented [facility]* Diagnosis Diabetes mellitus due to underlying condition 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 neuropathy, with long-term current use of insulin ([facility]) documented [facility] this encounter [facility]* Diagnosis Iron deficiency anemia, unspecified iron deficiency anemia type- Primary Secondary hypertension due to renal disease Other secondary hypertension, unspecified Cardiomyopathy, nonischemic (HCC) Other primary cardiomyopathies Paroxysmal atrial fibrillation (HCC) Atrial fibrillation Statin myopathy Toxic myopathy PVD (peripheral vascular disease) (HCC) Peripheral vascular disease, unspecified DAYANA (obstructive sleep apnea) Obstructive sleep apnea (adult) (pediatric) Hyperparathyroidism due to vitamin D deficiency ([facility]) Secondary hyperparathyroidism, non-renal Type 2 diabetes mellitus 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 neuropathy, 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) Type 2 diabetes mellitus with stage 3b chronic kidney disease, without long-term current use of insulin ([facility]) Other specified hypothyroidism Stress reaction Unspecified acute reaction to stress Anxiety state Anxiety state, unspecified B12 deficiency Other B-complex deficiencies Anemia due to stage 3b chronic kidney disease (HCC) Bronchitis Bronchitis, not specified as acute or chronic documented [facility] this encounter [facility]* Diagnosis B12 deficiency- Primary Other B-complex deficiencies [facility] Diagnosis Bacterial pneumonia- Primary Bacterial pneumonia, unspecified Type 2 diabetes mellitus 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 polyneuropathy, without long-term current use of insulin (HCC) Cardiomyopathy, nonischemic (HCC) Other primary cardiomyopathies Congestive heart failure, unspecified HF chronicity, unspecified heart failure type ([facility]) documented [facility] this encounter [facility]* Diagnosis Renal insufficiency- Primary Unspecified disorder of kidney and ureter [facility] Diagnosis Fall, initial encounter- Primary [facility]* Diagnosis Acute right ankle pain- Primary Leg swelling Swelling of limb [facility] Diagnosis Leg swelling Swelling of limb [facility]* Diagnosis B12 deficiency- Primary Other B-complex deficiencies [facility]* Diagnosis Type 2 diabetes mellitus [...] leg, except foot documented [facility] this encounter [facility]* Diagnosis Type 2 diabetes mellitus 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 polyneuropathy, without long-term current use of insulin (HCC)- Primary Pure hypercholesterolemia [facility]* Diagnosis Type 2 diabetes mellitus with stage 3b chronic kidney disease, without long-term current use of insulin (HCC)- Primary Cellulitis of left lower extremity Cellulitis and abscess of leg, except foot documented [facility] this encounter [facility]* Diagnosis Type 2 diabetes mellitus 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 polyneuropathy, without long-term current use of insulin ([facility]) documented in this encounter [facility]* Diagnosis Diabetes mellitus due to underlying condition 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 neuropathy, with long-term current use of insulin ([facility]) [facility]* Diagnosis Febrile illness, acute- Primary Fever, unspecified Bronchitis Bronchitis, not specified as acute or chronic documented [facility] this encounter [facility]* Diagnosis Anemia due to stage 3a chronic kidney disease (HCC) documented [facility] this encounter [facility]* Diagnosis Pneumonia of right lower lobe due to infectious organism- Primary Thrush (oral) Herpes labialis Herpes 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 documented [facility] this encounter [facility]* Diagnosis Anemia due to stage 3b chronic kidney disease (HCC)- Primary documented [facility] this encounter [facility]* Diagnosis Bacterial pneumonia- Primary Bacterial pneumonia, [...] Anxiety state, unspecified [facility] Diagnosis Finger pain, left- Primary Pain in limb [facility]* Diagnosis B12 deficiency- Primary Other B-complex deficiencies Secondary hypertension due to renal disease Other secondary hypertension, unspecified [facility]* Diagnosis Onychomycosis- Primary Dermatophytosis of nail Pain in toe of right foot Pain in limb Pain in toe of left foot Pain in limb Diabetic polyneuropathy associated with type 2 diabetes mellitus (HCC) Hammer toes of both feet [facility]* Diagnosis Secondary hypertension due to renal disease- Primary Other secondary hypertension, unspecified [facility]* Diagnosis Finger pain, left Pain in limb [facility]* Diagnosis Type 2 diabetes mellitus [...] Anemia, unspecified type [facility]* Diagnosis B12 deficiency- Primary Other B-complex deficiencies [facility] Diagnosis Type 2 diabetes mellitus 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 neuropathy, unspecified whether senior care insulin use (HCC) [facility] Diagnosis Onychomycosis- Primary Dermatophytosis of nail Pain in toe of right foot Pain in limb Pain in toe of left foot Pain in limb Diabetic polyneuropathy associated with type 2 diabetes mellitus (HCC) [facility] Diagnosis Anemia, unspecified type- Primary Bronchitis Bronchitis, not specified as acute or chronic [facility] Diagnosis Anemia, unspecified type- Primary [facility] Diagnosis B12 deficiency- Primary Other B-complex deficiencies [facility] Diagnosis Type 2 diabetes mellitus with [...] therapeutic drug monitoring documented in this encounter [facility] note* Diagnosis B12 deficiency- Primary Other B-complex deficiencies [facility] Diagnosis Low serum albumin- Primary [facility] Diagnosis Secondary hypertension due to renal disease Other secondary hypertension, unspecified [facility] Diagnosis Dietary counseling- Primary Dietary surveillance and counseling Low serum albumin Obesity, Class I, BMI 30-34.9 Obesity, unspecified [facility] Diagnosis Anemia, unspecified type Iron deficiency anemia, unspecified iron deficiency anemia type [facility] Diagnosis B12 deficiency- Primary Other B-complex deficiencies [facility] Diagnosis Closed nondisplaced transverse fracture of [...] of cerebral infarction [facility] Diagnosis Febrile illness, acute Fever, unspecified Bronchitis Bronchitis, not specified as acute or chronic [facility] Diagnosis Contusion of right great toe without damage to nail, initial encounter documented in this encounter [facility] note* Diagnosis Anemia, unspecified type- Primary documented in this encounter [facility] note* Diagnosis Anemia due to stage 3b chronic kidney disease (HCC)- Primary documented in this encounter [facility] note* Diagnosis Onychomycosis- Primary Dermatophytosis of nail Pain in toe of right foot Pain in limb Pain in toe of left foot Pain in limb Diabetic polyneuropathy associated with type 2 diabetes mellitus (HCC) documented in this encounter [facility] course Narrative No data available for this section [facility] Discharge instructions No data available for this section [facility] Progress note No data available for this section [facility] Reason for referral (narrative)* Diagnostic Procedure Only (Urgent) - Closed Specialty Diagnoses / Procedures Referred By Contac t Referred To Contact US IMAGING Diagnoses Leg swelling Procedures US DVT LOWER RT DUP-SCAN XTR VEINS UNILATERAL/LIMITED STUDY Flor Boyle, REAL ESTATE SALES MANAGER [address] [place] [address] Us Imaging Referral ID Status Reason Start Date Expiration Date V isits Requested Visits Authorized [id number] Closed Auto-Generate d Referral 01/24/2022 02/23/2023 1 1 * Diagnostic Procedure Only (Urgent) - Closed Specialty Diagnoses / Procedures Referred By Contac t Referred To Contact XR IMAGING Diagnoses Acute right ankle pain Procedures XR ANKLE GENERAL 3V AP/LAT/OBL RIGHT RADEX ANKLE COMPLETE MINIMUM 3 VIEWS Flor Boyle APRN.REAL ESTATE SALES MANAGER [address] [place] [address] Xr Imaging Referral ID Status Reason Start Date Expiration Date V isits Requested Visits Authorized [id number] Closed Auto-Generate d Referral 01/24/2022 02/23/2023 1 1 [facility] for referral (narrative)* Diagnostic Procedure Only (Urgent) - Closed Specialty Diagnoses / Procedures Referred By Contac t Referred To Contact US IMAGING Diagnoses Leg swelling Procedures US DVT LOWER RT DUP-SCAN XTR VEINS UNILATERAL/LIMITED STUDY Flor Boyle APRN.CNP [address] [place] [address] Us Imaging Referral ID Status Reason Start Date Expiration Date V isits Requested Visits Authorized [id number] Closed Auto-Generate d Referral 01/24/2022 02/23/2023 1 1 [facility] for referral (narrative)* Diagnostic Procedure Only (Urgent) - Closed Specialty Diagnoses / Procedures Referred By Contac t Referred To Contact XR IMAGING Diagnoses Contusion of right great toe without damage to nail, initial encounter Procedures XR TOE AP/LAT/OBL RIGHT RADEX TOE MINIMUM 2 VIEWS Dali Sepulveda [address] [place] [address] [place] [id number] Referral ID Status Reason Start Date Expiration Date V isits Requested Visits Authorized [id number] Closed Auto-Generate d Referral 01/20/2023 02/19/2024 1 1 [facility] for visit Narrative* Diagnostic Procedure Only (Urgent) - Closed Specialty Diagnoses / Procedures Referred By Contac t Referred To Contact XR IMAGING Diagnoses Contusion of right great toe without damage to nail, initial encounter Procedures XR TOE AP/LAT/OBL RIGHT RADEX TOE MINIMUM 2 VIEWS Dali Sepulveda[address] [place] [address] [place] [address] Referral ID Status Reason Start Date Expiration Date V isits Requested Visits Authorized [id number] Closed Auto-Generate d Referral 01/20/2023 02/19/2024 1 1 [facility] Summary Purpose Family History No Family History Records FoundNo Family History Records FoundNo Family History Records Found No data available for this section No Family History Records FoundNo Family History Records Found Advance Directives No Advanced Directives Records FoundDocuments on File Type Date Recorded Patient Boy'S Adviser Expl anation Advance Directive(s) 01/21/2016 7:59 AM Advance Directive(s) 03/30/2015 11:25 AM Documents on File Type Date Recorded Patient Boy'S Adviser Expl anation Advance Directive(s) 03/30/2015 11:25 AM Documents on File Type Date Recorded Patient Boy'S Adviser Expl anation Advance Directive(s) 03/30/2015 11:25 AM [...] 3 most recent administrations Medication Order MAR Dose Rate Site cyanocobalamin 1,000 mcg injection 1,000 mcg, INTRAMUSCULAR, EVERY 4 WEEKS, 12 doses, First dose on Mon08/30/21 at 0000, Last dose on Mon07/04/22 at 0000 Given 12/30/2021 1:02 PM EDT 1,000 mcg Deltoid, Left Active Administered Medications - up to 3 most recent administrations Medication Order MAR Dose Rate Site cyanocobalamin 1,000 mcg injection 1,000 mcg, INTRAMUSCULAR, EVERY 4 WEEKS, 12 doses, First dose on Mon08/30/21 at 0000, Last dose on Mon07/04/22 at 0000 Given 01/27/2022 1:36 PM EDT 1,000 mcg Deltoid, Right Active Administered Medications - up to 3 most recent administrations Medication Order MAR Dose Rate Site cyanocobalamin 1,000 mcg injection 1,000 mcg, INTRAMUSCULAR, EVERY 4 WEEKS, 12 doses, First dose on Mon08/30/21 at 0000, Last dose on Mon07/04/22 at 0000 Given 03/24/2022 1:46 PM EDT 1,000 mcg Deltoid, Right Active Administered Medications - up to 3 most recent administrations Medication Order MAR Dose Rate Site cyanocobalamin 1,000 mcg injection 1,000 mcg, INTRAMUSCULAR, EVERY 4 WEEKS, 12 doses, First dose on Mon08/30/21 at 0000, Last dose on Mon07/04/22 at 0000 Given 05/03/2022 1:51 PM EST 1,000 mcg Deltoid, Left Active Administered Medications - up to 3 most recent administrations Medication Order MAR Dose Rate Site cyanocobalamin 1,000 mcg injection [...] over 15 Minutes, ONCE, 1 dose, On Mon05/11/23 at 1500, Please conduct a 30 minute post dose observation. Refrigerate New Bag/Syringe/Bottle 05/11/2023 2:37 PM EST 200 mg 400 mL/hr Reason for Referral Specialty Diagnoses / Procedures Referred By Contac t Referred To Contact Orthopedics Diagnoses Fall, initial encounter Procedures CONSULT TO ORTHOPAEDICS OFFICE/OUTPATIENT [facility] 60-74 MINUTES Ana Bell APRN.REAL ESTATE SALES MANAGER [address] [place] [address] Referral ID Status Reason Start Date Expiration Date Visits Requested Visits Authorized [id number] Pending Review PCP Requested Referral 01/14/2022 01/14/2023 1 1 Specialty Diagnoses / Procedures Referred By Contac t Referred To Contact XR IMAGING Diagnoses Fall, initial encounter Procedures XR ANKLE GENERAL 3V AP/LAT/OBL RIGHT RADEX ANKLE COMPLETE MINIMUM 3 VIEWS Ana Bell APRN.REAL ESTATE SALES MANAGER [address] [place] [address] Xr Imaging Referral ID Status Reason Start Date Expiration Date V isits Requested Visits Authorized [id number] Closed Auto-Generate d Referral 01/14/2022 02/13/2023 1 1 Specialty Diagnoses / Procedures Referred By Contac t Referred To Contact XR IMAGING Diagnoses Fall, initial encounter Procedures XR FOOT GENERAL 3V AP/LAT/OBL RIGHT RADEX FOOT COMPLETE MINIMUM 3 VIEWS Ana Bell APRN.RE[employer] ESTATE SALES MANAGER [address] [place] [address] Xr Imaging Referral ID Status Reason Start Date Expiration Date V isits Requested Visits Authorized [id number] Closed Auto-Generate d Referral 01/14/2022 02/13/2023 1 1 Specialty Diagnoses / Procedures Referred By Contac t Referred To Contact Orthopedics Diagnoses Finger pain, left Procedures CONSULT TO ORTHOPAEDICS OFFICE/OUTPATIENT [facility] 60-74 MINUTES Chun Brewster MD [address] [place] [address] Referral ID Status Reason Start Date Expiration Date Visits Requested Visits Authorized [id number] Pending Review PCP Requested Referral 06/08/2022 06/08/2023 1 1 Specialty Diagnoses / Procedures Referred By Contac t Referred To Contact XR IMAGING Diagnoses Finger pain, left Procedures XR DIGIT GENERAL 3V FRONTAL/LAT/OBL LEFT RADEX FINGR MINIMUM 2 VIEWS Chun Brewster MD [address] [place] [address] Xr Imaging Referral ID Status Reason Start Date Expiration Date V isits Requested Visits Authorized [id number] Closed Auto-Generate d Referral 06/08/2022 07/08/2023 1 1 Specialty Diagnoses / Procedures Referred By Contac t Referred To Contact Diagnoses Anemia, unspecified type Procedures CONSULT TO HEMATOLOGY/ONCOLOGY OFFICE/OUTPATIENT [facility] 60-74 MINUTES Monae Bowser APRN.CNP [address] [place] [address] Referral ID Status Reason Start Date Expiration Date Visits Requested Visits Authorized [id number] Pending Review PCP Requested Referral 11/08/2022 11/08/2023 1 1 Specialty Diagnoses / Procedures Referred By Contac t Referred To Contact Hematology Diagnoses Iron deficiency anemia, unspecified iron deficiency anemia type Procedures CONSULT TO HEMATOLOGY OFFICE/OUTPATIENT [facility] 60-74 MINUTES Stefan Moore MD [address] [place] [address] Referral ID Status Reason Start Date Expiration Date Visits Requested Visits Authorized [id number] Pending Review PCP Requested Referral 12/10/2022 12/10/2023 1 1 Specialty Diagnoses / Procedures Referred By Contac t Referred To Contact Nutrition Diagnoses Low serum albumin Procedures CONSULT TO NUTRITION THERAPY MEDICAL NUTRITION ASSMT&IVNTJ INDIV EACH 15 OK MEDICAL NUTRITION ASSMT&IVNTJ INDIV EACH 15 [place] MEDICAL NUTRITION ASSMT&IVNTJ INDIV EACH 15 OK MEDICAL NUTRITION ASSMT&IVNTJ INDIV EACH 15 OK Stefan Moore MD [address] [facility] [place] [address] Referral ID Status Reason Start Date Expiration Date Visits Requested Visits Authorized [id number] Pending Review PCP Requested Referral 12/10/2022 12/10/2023 1 1 Additional Source Comments INFORMATION SOURCE (unrecogn ized section and content) DATE CREATED AUTHOR AUTHOR'S ORGANIZ ATION 11/29/2017 [facility] DATE CREATED AUTHOR AUTHOR'S ORGANIZ ATION 11/14/2020 [facility] DATE CREATED AUTHOR AUTHOR'S ORGANIZ ATION 06/19/[address] [facility] ([place]) DATE CREATED AUTHOR AUTHOR'S ORGANIZ ATION 06/20/2023 [facility] Source Comments (unrecognize d section and content) In the event this informatio n is protected by the Federal Confidentiality of Alcohol and Drug Abuse Patient Records regulations: The Federal rules restrict any use of the information to criminally investigate or prosecute any alcohol or drug abuse patient.[facility] the event this information is protected by the Federal Confidentiality of Alcohol and Drug Abuse Patient Records regulations: The Federal rules restrict any use of the information to criminally investigate or prosecute any alcohol or drug abuse patient.[facility] the event this information is protected by the Federal Confidentiality of Alcohol and Drug Abuse Patient Records regulations: The Federal rules restrict any use of the information to criminally investigate or prosecute any alcohol or drug abuse patient.[facility] the event this information is protected by the Federal Confidentiality of Alcohol and Drug Abuse Patient Records regulations: The Federal rules restrict any use of the information to criminally investigate or prosecute any alcohol or drug abuse patient.[facility] the event this information is protected by the Federal Confidentiality of Alcohol and Drug Abuse Patient Records regulations: The Federal rules restrict any use of the information to criminally investigate or prosecute any alcohol or drug abuse patient.[facility] the event this information is protected by the Federal Confidentiality of Alcohol and Drug Abuse Patient Records regulations: The Federal rules restrict any use of the information to criminally investigate or prosecute any alcohol or drug abuse patient.[facility] the event this information is protected by the Federal Confidentiality of Alcohol and Drug Abuse Patient Records regulations: The Federal rules restrict any use of the information to criminally investigate or prosecute any alcohol or drug abuse patient.[facility] the event this information is protected by the Federal Confidentiality of Alcohol and Drug Abuse Patient Records regulations: The Federal rules restrict any use of the information to criminally investigate or prosecute any alcohol or drug abuse patient.[facility] the event this information is protected by the Federal Confidentiality of Alcohol and Drug Abuse Patient Records regulations: The Federal rules restrict any use of the information to criminally investigate or prosecute any alcohol or drug abuse patient.[facility] the event this information is protected by the Federal Confidentiality of Alcohol and Drug Abuse Patient Records regulations: The Federal rules restrict any use of the information to criminally investigate or prosecute any alcohol or drug abuse patient.[facility] the event this information is protected by the Federal Confidentiality of Alcohol and Drug Abuse Patient Records regulations: The Federal rules restrict any use of the information to criminally investigate or prosecute any alcohol or drug abuse patient.[facility] the event this information is protected by the Federal Confidentiality of Alcohol and Drug Abuse Patient Records regulations: The Federal rules restrict any use of the information to criminally investigate or prosecute any alcohol or drug abuse patient.[facility] the event this information is protected by the Federal Confidentiality of Alcohol and Drug Abuse Patient Records regulations: The Federal rules restrict any use of the information to criminally investigate or prosecute any alcohol or drug abuse patient.[facility] the event this information is protected by the Federal Confidentiality of Alcohol and Drug Abuse Patient Records regulations: The Federal rules restrict any use of the information to criminally investigate or prosecute any alcohol or drug abuse patient.[facility] the event this information is protected by the Federal Confidentiality of Alcohol and Drug Abuse Patient Records regulations: The Federal rules restrict any use of the information to criminally investigate or prosecute any alcohol or drug abuse patient.[facility] Center[facility] the event this information is protected by the Federal Confidentiality of Alcohol and Drug Abuse Patient Records regulations: The Federal rules restrict any use of the information to criminally investigate or prosecute any alcohol or drug abuse patient.[facility] the event this information is protected by the Federal Confidentiality of Alcohol and Drug Abuse Patient Records regulations: The Federal rules restrict any use of the information to criminally investigate or prosecute any alcohol or drug abuse patient.[facility] the event this information is protected by the Federal Confidentiality of Alcohol and Drug Abuse Patient Records regulations: The Federal rules restrict any use of the information to criminally investigate or prosecute any alcohol or drug abuse patient.[facility] the event this information is protected by the Federal Confidentiality of Alcohol and Drug Abuse Patient Records regulations: The Federal rules restrict any use of the information to criminally investigate or prosecute any alcohol or drug abuse patient.[facility] Center[facility] the event this information is protected by the Federal Confidentiality of Alcohol and Drug Abuse Patient Records regulations: The Federal rules restrict any use of the information to criminally investigate or prosecute any alcohol or drug abuse patient.[facility] Center[facility] the event this information is protected by the Federal Confidentiality of Alcohol and Drug Abuse Patient Records regulations: The Federal rules restrict any use of the information to criminally investigate or prosecute any alcohol or drug abuse patient.[facility] Center[facility] the event this information is protected by the Federal Confidentiality of Alcohol and Drug Abuse Patient Records regulations: The Federal rules restrict any use of the information to criminally investigate or prosecute any alcohol or drug abuse patient.[facility] Center[facility] the event this information is protected by the Federal Confidentiality of Alcohol and Drug Abuse Patient Records regulations: The Federal rules restrict any use of the information to criminally investigate or prosecute any alcohol or drug abuse patient.[facility] Center[facility] the event this information is protected by the Federal Confidentiality of Alcohol and Drug Abuse Patient Records regulations: The Federal rules restrict any use of the information to criminally investigate or prosecute any alcohol or drug abuse patient.[facility] Center[facility] the event this information is protected by the Federal Confidentiality of Alcohol and Drug Abuse Patient Records regulations: The Federal rules restrict any use of the information to criminally investigate or prosecute any alcohol or drug abuse patient.[facility] CenterIn the event this information is protected by the Federal Confidentiality of Alcohol and Drug Abuse Patient Records regulations: The Federal rules restrict any use of the information to criminally investigate or prosecute any alcohol or drug abuse patient.[facility] the event this information is protected by the Federal Confidentiality of Alcohol and Drug Abuse Patient Records regulations: The Federal rules restrict any use of the information to criminally investigate or prosecute any alcohol or drug abuse patient.[facility] Center[facility] the event this information is protected by the Federal Confidentiality of Alcohol and Drug Abuse Patient Records regulations: The Federal rules restrict any use of the information to criminally investigate or prosecute any alcohol or drug abuse patient.[facility] Center[facility] the event this information is protected by the Federal Confidentiality of Alcohol and Drug Abuse Patient Records regulations: The Federal rules restrict any use of the information to criminally investigate or prosecute any alcohol or drug abuse patient.[facility] CenterIn the event this information is protected by the Federal Confidentiality of Alcohol and Drug Abuse Patient Records regulations: The Federal rules restrict any use of the information to criminally investigate or prosecute any alcohol or drug abuse patient.[facility] CenterIn the event this information is protected by the Federal Confidentiality of Alcohol and Drug Abuse Patient Records regulations: The Federal rules restrict any use of the information to criminally investigate or prosecute any alcohol or drug abuse patient.[facility] CenterIn the event this information is protected by the Federal Confidentiality of Alcohol and Drug Abuse Patient Records regulations: The Federal rules restrict any use of the information to criminally investigate or prosecute any alcohol or drug abuse patient.[facility] CenterIn the event this information is protected by the Federal Confidentiality of Alcohol and Drug Abuse Patient Records regulations: The Federal rules restrict any use of the information to criminally investigate or prosecute any alcohol or drug abuse patient.[facility] CenterIn the event this information is protected by the Federal Confidentiality of Alcohol and Drug Abuse Patient Records regulations: The Federal rules restrict any use of the information to criminally investigate or prosecute any alcohol or drug abuse patient.[facility] CenterIn the event this information is protected by the Federal Confidentiality of Alcohol and Drug Abuse Patient Records regulations: The Federal rules restrict any use of the information to criminally investigate or prosecute any alcohol or drug abuse patient.[facility] CenterIn the event this information is protected by the Federal Confidentiality of Alcohol and Drug Abuse Patient Records regulations: The Federal rules restrict any use of the information to criminally investigate or prosecute any alcohol or drug abuse patient.[facility] CenterIn the event this information is protected by the Federal Confidentiality of Alcohol and Drug Abuse Patient Records regulations: The Federal rules restrict any use of the information to criminally investigate or prosecute any alcohol or drug abuse patient.[facility] CenterIn the event this information is protected by the Federal Confidentiality of Alcohol and Drug Abuse Patient Records regulations: The Federal rules restrict any use of the information to criminally investigate or prosecute any alcohol or drug abuse patient.[facility] CenterIn the event this information is protected by the Federal Confidentiality of Alcohol and Drug Abuse Patient Records regulations: The Federal rules restrict any use of the information to criminally investigate or prosecute any alcohol or drug abuse patient.[facility] CenterIn the event this information is protected by the Federal Confidentiality of Alcohol and Drug Abuse Patient Records regulations: The Federal rules restrict any use of the information to criminally investigate or prosecute any alcohol or drug abuse patient.[facility] CenterIn the event this information is protected by the Federal Confidentiality of Alcohol and Drug Abuse Patient Records regulations: The Federal rules restrict any use of the information to criminally investigate or prosecute any alcohol or drug abuse patient.[facility] CenterIn the event this information is protected by the Federal Confidentiality of Alcohol and Drug Abuse Patient Records regulations: The Federal rules restrict any use of the information to criminally investigate or prosecute any alcohol or drug abuse patient.[facility] CenterIn the event this information is protected by the Federal Confidentiality of Alcohol and Drug Abuse Patient Records regulations: The Federal rules restrict any use of the information to criminally investigate or prosecute any alcohol or drug abuse patient.[facility] CenterIn the event this information is protected by the Federal Confidentiality of Alcohol and Drug Abuse Patient Records regulations: The Federal rules restrict any use of the information to criminally investigate or prosecute any alcohol or drug abuse patient.[facility] CenterIn the event this information is protected by the Federal Confidentiality of Alcohol and Drug Abuse Patient Records regulations: The Federal rules restrict any use of the information to criminally investigate or prosecute any alcohol or drug abuse patient.[facility] CenterIn the event this information is protected by the Federal Confidentiality of Alcohol and Drug Abuse Patient Records regulations: The Federal rules restrict any use of the information to criminally investigate or prosecute any alcohol or drug abuse patient.[facility] CenterIn the event this information is protected by the Federal Confidentiality of Alcohol and Drug Abuse Patient Records regulations: The Federal rules restrict any use of the information to criminally investigate or prosecute any alcohol or drug abuse patient.[facility] CenterIn the event this information is protected by the Federal Confidentiality of Alcohol and Drug Abuse Patient Records regulations: The Federal rules restrict any use of the information to criminally investigate or prosecute any alcohol or drug abuse patient.[facility] CenterIn the event this information is protected by the Federal Confidentiality of Alcohol and Drug Abuse Patient Records regulations: The Federal rules restrict any use of the information to criminally investigate or prosecute any alcohol or drug abuse patient.[facility] CenterIn the event this information is protected by the Federal Confidentiality of Alcohol and Drug Abuse Patient Records regulations: The Federal rules restrict any use of the information to criminally investigate or prosecute any alcohol or drug abuse patient.[facility] CenterIn the event this information is protected by the Federal Confidentiality of Alcohol and Drug Abuse Patient Records regulations: The Federal rules restrict any use of the information to criminally investigate or prosecute any alcohol or drug abuse patient.[facility] CenterIn the event this information is protected by the Federal Confidentiality of Alcohol and Drug Abuse Patient Records regulations: The Federal rules restrict any use of the information to criminally investigate or prosecute any alcohol or drug abuse patient.[facility] CenterIn the event this information is protected by the Federal Confidentiality of Alcohol and Drug Abuse Patient Records regulations: The Federal rules restrict any use of the information to criminally investigate or prosecute any alcohol or drug abuse patient.[facility] CenterIn the event this information is protected by the Federal Confidentiality of Alcohol and Drug Abuse Patient Records regulations: The Federal rules restrict any use of the information to criminally investigate or prosecute any alcohol or drug abuse patient.[facility] CenterIn the event this information is protected by the Federal Confidentiality of Alcohol and Drug Abuse Patient Records regulations: The Federal rules restrict any use of the information to criminally investigate or prosecute any alcohol or drug abuse patient.[facility] CenterIn the event this information is protected by the Federal Confidentiality of Alcohol and Drug Abuse Patient Records regulations: The Federal rules restrict any use of the information to criminally investigate or prosecute any alcohol or drug abuse patient.[facility] CenterIn the event this information is protected by the Federal Confidentiality of Alcohol and Drug Abuse Patient Records regulations: The Federal rules restrict any use of the information to criminally investigate or prosecute any alcohol or drug abuse patient.[facility] CenterIn the event this information is protected by the Federal Confidentiality of Alcohol and Drug Abuse Patient Records regulations: The Federal rules restrict any use of the information to criminally investigate or prosecute any alcohol or drug abuse patient.[facility] CenterIn the event this information is protected by the Federal Confidentiality of Alcohol and Drug Abuse Patient Records regulations: The Federal rules restrict any use of the information to criminally investigate or prosecute any alcohol or drug abuse patient.[facility] CenterIn the event this information is protected by the Federal Confidentiality of Alcohol and Drug Abuse Patient Records regulations: The Federal rules restrict any use of the information to criminally investigate or prosecute any alcohol or drug abuse patient.[facility] CenterIn the event this information is protected by the Federal Confidentiality of Alcohol and Drug Abuse Patient Records regulations: The Federal rules restrict any use of the information to criminally investigate or prosecute any alcohol or drug abuse patient.[facility] CenterIn the event this information is protected by the Federal Confidentiality of Alcohol and Drug Abuse Patient Records regulations: The Federal rules restrict any use of the information to criminally investigate or prosecute any alcohol or drug abuse patient.[facility] CenterIn the event this information is protected by the Federal Confidentiality of Alcohol and Drug Abuse Patient Records regulations: The Federal rules restrict any use of the information to criminally investigate or prosecute any alcohol or drug abuse patient.[facility] CenterIn the event this information is protected by the Federal Confidentiality of Alcohol and Drug Abuse Patient Records regulations: The Federal rules restrict any use of the information to criminally investigate or prosecute any alcohol or drug abuse patient.[facility] CenterIn the event this information is protected by the Federal Confidentiality of Alcohol and Drug Abuse Patient Records regulations: The Federal rules restrict any use of the information to criminally investigate or prosecute any alcohol or drug abuse patient.[facility] CenterIn the event this information is protected by the Federal Confidentiality of Alcohol and Drug Abuse Patient Records regulations: The Federal rules restrict any use of the information to criminally investigate or prosecute any alcohol or drug abuse patient.[facility] CenterIn the event this information is protected by the Federal Confidentiality of Alcohol and Drug Abuse Patient Records regulations: The Federal rules restrict any use of the information to criminally investigate or prosecute any alcohol or drug abuse patient.[facility] CenterIn the event this information is protected by the Federal Confidentiality of Alcohol and Drug Abuse Patient Records regulations: The Federal rules restrict any use of the information to criminally investigate or prosecute any alcohol or drug abuse patient.[facility] CenterIn the event this information is protected by the Federal Confidentiality of Alcohol and Drug Abuse Patient Records regulations: The Federal rules restrict any use of the information to criminally investigate or prosecute any alcohol or drug abuse patient.[facility] CenterIn the event this information is protected by the Federal Confidentiality of Alcohol and Drug Abuse Patient Records regulations: The Federal rules restrict any use of the information to criminally investigate or prosecute any alcohol or drug abuse patient.[facility] CenterIn the event this information is protected by the Federal Confidentiality of Alcohol and Drug Abuse Patient Records regulations: The Federal rules restrict any use of the information to criminally investigate or prosecute any alcohol or drug abuse patient.[facility] CenterIn the event this information is protected by the Federal Confidentiality of Alcohol and Drug Abuse Patient Records regulations: The Federal rules restrict any use of the information to criminally investigate or prosecute any alcohol or drug abuse patient.[facility] CenterIn the event this information is protected by the Federal Confidentiality of Alcohol and Drug Abuse Patient Records regulations: The Federal rules restrict any use of the information to criminally investigate or prosecute any alcohol or drug abuse patient.[facility] CenterIn the event this information is protected by the Federal Confidentiality of Alcohol and Drug Abuse Patient Records regulations: The Federal rules restrict any use of the information to criminally investigate or prosecute any alcohol or drug abuse patient.[facility] CenterIn the event this information is protected by the Federal Confidentiality of Alcohol and Drug Abuse Patient Records regulations: The Federal rules restrict any use of the information to criminally investigate or prosecute any alcohol or drug abuse patient.[facility] CenterIn the event this information is protected by the Federal Confidentiality of Alcohol and Drug Abuse Patient Records regulations: The Federal rules restrict any use of the information to criminally investigate or prosecute any alcohol or drug abuse patient.[facility] CenterIn the event this information is protected by the Federal Confidentiality of Alcohol and Drug Abuse Patient Records regulations: The Federal rules restrict any use of the information to criminally investigate or prosecute any alcohol or drug abuse patient.[facility] CenterIn the event this information is protected by the Federal Confidentiality of Alcohol and Drug Abuse Patient Records regulations: The Federal rules restrict any use of the information to criminally investigate or prosecute any alcohol or drug abuse patient.[facility] CenterIn the event this information is protected by the Federal Confidentiality of Alcohol and Drug Abuse Patient Records regulations: The Federal rules restrict any use of the information to criminally investigate or prosecute any alcohol or drug abuse patient.[facility] CenterIn the event this information is protected by the Federal Confidentiality of Alcohol and Drug Abuse Patient Records regulations: The Federal rules restrict any use of the information to criminally investigate or prosecute any alcohol or drug abuse patient.[facility] CenterIn the event this information is protected by the Federal Confidentiality of Alcohol and Drug Abuse Patient Records regulations: The Federal rules restrict any use of the information to criminally investigate or prosecute any alcohol or drug abuse patient.[facility] CenterIn the event this information is protected by the Federal Confidentiality of Alcohol and Drug Abuse Patient Records regulations: The Federal rules restrict any use of the information to criminally investigate or prosecute any alcohol or drug abuse patient.[facility] CenterIn the event this information is protected by the Federal Confidentiality of Alcohol and Drug Abuse Patient Records regulations: The Federal rules restrict any use of the information to criminally investigate or prosecute any alcohol or drug abuse patient.[facility] CenterIn the event this information is protected by the Federal Confidentiality of Alcohol and Drug Abuse Patient Records regulations: The Federal rules restrict any use of the information to criminally investigate or prosecute any alcohol or drug abuse patient.[facility] CenterIn the event this information is protected by the Federal Confidentiality of Alcohol and Drug Abuse Patient Records regulations: The Federal rules restrict any use of the information to criminally investigate or prosecute any alcohol or drug abuse patient.[facility] CenterIn the event this information is protected by the Federal Confidentiality of Alcohol and Drug Abuse Patient Records regulations: The Federal rules restrict any use of the information to criminally investigate or prosecute any alcohol or drug abuse patient.[facility] CenterIn the event this information is protected by the Federal Confidentiality of Alcohol and Drug Abuse Patient Records regulations: The Federal rules restrict any use of the information to criminally investigate or prosecute any alcohol or drug abuse patient.[facility] CenterIn the event this information is protected by the Federal Confidentiality of Alcohol and Drug Abuse Patient Records regulations: The Federal rules restrict any use of the information to criminally investigate or prosecute any alcohol or drug abuse patient.[facility] CenterIn the event this information is protected by the Federal Confidentiality of Alcohol and Drug Abuse Patient Records regulations: The Federal rules restrict any use of the information to criminally investigate or prosecute any alcohol or drug abuse patient.[facility] CenterIn the event this information is protected by the Federal Confidentiality of Alcohol and Drug Abuse Patient Records regulations: The Federal rules restrict any use of the information to criminally investigate or prosecute any alcohol or drug abuse patient.[facility] CenterIn the event this information is protected by the Federal Confidentiality of Alcohol and Drug Abuse Patient Records regulations: The Federal rules restrict any use of the information to criminally investigate or prosecute any alcohol or drug abuse patient.[facility] CenterIn the event this information is protected by the Federal Confidentiality of Alcohol and Drug Abuse Patient Records regulations: The Federal rules restrict any use of the information to criminally investigate or prosecute any alcohol or drug abuse patient.[facility] CenterIn the event this information is protected by the Federal Confidentiality of Alcohol and Drug Abuse Patient Records regulations: The Federal rules restrict any use of the information to criminally investigate or prosecute any alcohol or drug abuse patient.[facility] Reason for Visit (unrecogniz ed section and content) Specialty Diagnoses / Procedures Referred By Casey dugan Referred To Contact Diagnoses Anemia, unspecified type Procedures CONSULT TO HEMATOLOGY/ONCOLOGY OFFICE/OUTPATIENT [facility] MDM 60-74 MINUTES Monae Bowser, ANTENNA ENGINEER.REAL ESTATE SALES MANAGER [address] [place] [address] Referral ID Status Reason Start Date Expiration Date Visits Requested Visits Authorized [id number] Pending Review PCP Requested Referral 11/08/2022 11/08/2023 [...] Referred To Contact Radiology / RADIO MRI [facility] MOB Diagnoses MRI LUMBAR WO CONTRAST-ARTHROPATHY OF LUMBAR FACET, DEGENERATION OF LUMBOSACRAL INTERVERTEBRAL AUTH#[id number], VALID 12/29/2021-06/27/2022 OUTSIDE ORDER SCANNED AND PLACED IN SYNGO Procedures MRI WO MUKESH [address] ALL Prebish, Fabiola [address] [place] [address] Radio Mri Former[facility] [address] [place] [address] Referral ID Status Reason Start Date Expiration Date V isits Requested Visits Authorized [id number] Outside PCP 12/29/2021 06/27/2022 1 1 Reason Comments right foot and toe pain Fell last night Reason Comments Acute Visit right leg swelling Reason Comments Results Xray and US DVT Reason Comments Radiology US Specialty Diagnoses / Procedures Referred By Contac t Referred To Contact US IMAGING Diagnoses Leg swelling Procedures US DVT LOWER RT DUP-SCAN XTR VEINS UNILATERAL/LIMITED STUDY Flor Boyle, ANTENNA ENGINEER.REAL ESTATE SALES MANAGER [address] [place] [address] Us Imaging Referral ID Status Reason Start Date Expiration Date V isits Requested Visits Authorized [id number] Closed Auto-Generate d Referral 01/24/2022 02/23/2023 1 1 Reason Comments 6 Month Exam Reason Comments 2 week follow up - recheck legs Reason Comments lab appt. Reason Onset Date Comments Refill Request 03/03/2022 Reason Comments Patient Request Reason Comments ED Follow-up [facility] 03/27/22 DX:Rhea l. Started URI symptoms on 03/23/22. Cough,congestion, runny nose, fever TMAX 102.3, diarrhea, body aches. Reason Comments [facility] Reason Onset Date Comments Refill Request 03/29/2022 [...] HIGH MDM 60-74 MINUTES Chun Brewster MD [address] [place] [address] Referral ID Status Reason Start Date Expiration Date Visits Requested Visits Authorized [id number] Pending Review PCP Requested Referral 06/08/2022 06/08/2023 1 1 Reason Comments Refill Request Reason Onset Date Comments Refill Request 09/23/2022 OUT OF TEST STRI PS Reason Comments Medical Clearance Reason Comments Established Patient Follow Up Diabetic Foot Care Reason Comments Patient Update Patient Question Reason Comments Weakness Reason Onset Date Comments Virtualist 10/31/2022 Reason Comments ER F/U WC ER f/u dx: weakn ess/shortness of breath Reason Comments Results Reason Comments Follow Up Reason Comments Orders Reason Onset Date Comments Refill Request 12/22/2022 Reason Comments Patient Education Assessment Specialty Diagnoses / Procedures Referred By Contac t Referred To Contact Nutrition Diagnoses Low serum albumin Procedures CONSULT TO NUTRITION THERAPY MEDICAL NUTRITION ASSMT&IVNTJ INDIV EACH 15 [place] MEDICAL NUTRITION ASSMT&IVNTJ INDIV EACH 15 [place] MEDICAL NUTRITION ASSMT&IVNTJ INDIV EACH 15 [place] MEDICAL NUTRITION ASSMT&IVNTJ INDIV EACH 15 [place] Stefan Moore MD [address] [place] [address] Referral ID Status Reason Start Date Expiration Date Visits Requested Visits Authorized [id number] Pending Review PCP Requested Referral 12/10/2022 12/10/2023 1 1 Reason Comments fracture update Results Reason Comments Hospital F/U Reason Comments Non-Chemotherapy Treatment Specialty Diagnoses / Procedures Referred By Contac t Referred To Contact Diagnoses Anemia due to stage 3b chronic kidney disease (HCC) Procedures IRON SUCROSE INJECTION [place] [address] [place] [address] [place] [address] Hua [facility] [address] [place] [address] Referral ID Status Reason Start Date Expiration Date V isits Requested Visits Authorized [id number] Authorized 05/02/2023 06/04/2023 99 99 Reason Comments Benefits Investigation Reason Comments AVS 05/11 Care Teams (unrecognized sec tion and content) Barrel Lathe Operator Inside Relationship Specialty Start Date End Date Stefan Moore MD [address] [place] [address] PCP - General Family Practice 09/08/16 Barrel Lathe Operator Inside Relationship Specialty Start Date End Date Stefan Moore MD [address] [place] [id number] PCP - General Family Practice 09/08/16 Barrel Lathe Operator Inside Relationship Specialty Start Date End Date Stefan Moore MD [address] [place] [id number] PCP - General Family Practice 09/08/16 Barrel Lathe Operator Inside Relationship Specialty Start Date End Date Stefan Moore MD [address] [place] [id number] PCP - General Family Practice 09/08/16 Barrel Lathe Operator Inside Relationship Specialty Start Date End Date Stefan Moore MD [address] [place] [id number] PCP - General Family Practice 09/08/16 Barrel Lathe Operator Inside Relationship Specialty Start Date End Date Stefan Moore MD [facility] [place] [address] PCP - General Family Practice 09/08/16 Barrel Lathe Operator Inside Relationship Specialty Start Date End Date Stefan Moore MD [address] [place] [id number] PCP - General Family Practice 09/08/16 Barrel Lathe Operator Inside Relationship Specialty Start Date End Date Stefan Moore MD [address] [place] [address] PCP - General Family Practice 09/08/16 Barrel Lathe Operator Inside Relationship Specialty Start Date End Date Stefan Moore MD [address] [place] [address] PCP - General Family Practice 09/08/16 Barrel Lathe Operator Inside Relationship Specialty Start Date End Date Stefan Moore MD [address] [place] [address] PCP - General Family Practice 09/08/16 Barrel Lathe Operator Inside Relationship Specialty Start Date End Date Stefan Moore MD [address] [place] [address] PCP - General Family Practice 09/08/16 Barrel Lathe Operator Inside Relationship Specialty Start Date End Date Stefan Moore MD [address] [place] [address] PCP - General Family Practice 09/08/16 Barrel Lathe Operator Inside Relationship Specialty Start Date End Date Stefan Moore MD [address] [place] [address] PCP - General Family Practice 09/08/16 Barrel Lathe Operator Inside Relationship Specialty Start Date End Date Stefan Moore MD [address] [place] [address] PCP - General Family Practice 09/08/16 Barrel Lathe Operator Inside Relationship Specialty Start Date End Date Stefan Moore MD [address] [place] [address] PCP - General Family Practice 09/08/16 Barrel Lathe Operator Inside Relationship Specialty Start Date End Date Stefan Moore MD [address] [place] [address] PCP - General Family Practice 09/08/16 Barrel Lathe Operator Inside Relationship Specialty Start Date End Date Stefan Moore MD [address] [place] [address] PCP - General Family Medicine 09/08/16 Barrel Lathe Operator Inside Relationship Specialty Start Date End Date Stefan Moore MD [address] [place] [address] PCP - General Family Medicine 09/08/16 Barrel Lathe Operator Inside Relationship Specialty Start Date End Date Stefan Moore MD [address] [place] [address] PCP - General Family Medicine 09/08/16 Barrel Lathe Operator Inside Relationship Specialty Start Date End Date Stefan Moore MD [address] [place] [address] PCP - General Family Medicine 09/08/16 Barrel Lathe Operator Inside Relationship Specialty Start Date End Date Stefan Moore MD [address] [place] [address] PCP - General Family Medicine 09/08/16 Barrel Lathe Operator Inside Relationship Specialty Start Date End Date Stefan Moore MD [address] [place] [address] PCP - General Family Medicine 09/08/16 Barrel Lathe Operator Inside Relationship Specialty Start Date End Date Stefan Moore MD [address] [place] [address] PCP - General Family Medicine 09/08/16 Barrel Lathe Operator Inside Relationship Specialty Start Date End Date Stefan Moore MD [address] [place] [address] PCP - General Family Medicine 09/08/16 Barrel Lathe Operator Inside Relationship Specialty Start Date End Date Stefan Moore MD [address] [place] [address] PCP - General Family Medicine 09/08/16 Barrel Lathe Operator Inside Relationship Specialty Start Date End Date Stefan Moore MD [address] [place] [address] PCP - General Family Medicine 09/08/16 Barrel Lathe Operator Inside Relationship Specialty Start Date End Date Stefan Moore MD [address] [place] [address] PCP - General Family Medicine 09/08/16 Barrel Lathe Operator Inside Relationship Specialty Start Date End Date Stefan Moore MD [address] [place] [address] PCP - General Family Medicine 09/08/16 Barrel Lathe Operator Inside Relationship Specialty Start Date End Date Stefan Moore MD [address] [place] [address] PCP - General Family Medicine 09/08/16 Barrel Lathe Operator Inside Relationship Specialty Start Date End Date Stefan Moore MD [address] [place] [address] PCP - General Family Medicine 09/08/16 Barrel Lathe Operator Inside Relationship Specialty Start Date End Date Stefan Moore MD [address] [place] [address] PCP - General Family Medicine 09/08/16 Barrel Lathe Operator Inside Relationship Specialty Start Date End Date Stefan Moore MD [address] [place] [address] PCP - General Family Medicine 09/08/16 Barrel Lathe Operator Inside Relationship Specialty Start Date End Date Stefan Moore MD [address] [place] [address] PCP - General Family Medicine 09/08/16 Barrel Lathe Operator Inside Relationship Specialty Start Date End Date Stefan Moore MD [address] [place] [address] PCP - General Family Medicine 09/08/16 Barrel Lathe Operator Inside Relationship Specialty Start Date End Date Stefan Moore MD [address] [place] [address] PCP - General Family Medicine 09/08/16 Barrel Lathe Operator Inside Relationship Specialty Start Date End Date Stefan Moore MD [address] [place] [address] PCP - General Family Medicine 09/08/16 Barrel Lathe Operator Inside Relationship Specialty Start Date End Date Stefan Moore MD [address] [place] [address] PCP - General Family Medicine 09/08/16 Barrel Lathe Operator Inside Relationship Specialty Start Date End Date Stefan Moore MD [address] [place] [address] PCP - General Family Medicine 09/08/16 Barrel Lathe Operator Inside Relationship Specialty Start Date End Date Stefan Moore MD [address] [place] [address] PCP - General Family Medicine 09/08/16 Barrel Lathe Operator Inside Relationship Specialty Start Date End Date Stefan Moore MD [address] [place] [address] PCP - General Family Medicine 09/08/16 Barrel Lathe Operator Inside Relationship Specialty Start Date End Date Stefan Moore MD [address] [place] [address] PCP - General Family Medicine 09/08/16 Barrel Lathe Operator Inside Relationship Specialty Start Date End Date Stefan Moore MD [address] [place] [address] PCP - General Family Medicine 09/08/16 Barrel Lathe Operator Inside Relationship Specialty Start Date End Date Stefan Moore MD [address] [place] [address] PCP - General Family Medicine 09/08/16 Barrel Lathe Operator Inside Relationship Specialty Start Date End Date Stefan Moore MD [address] [place] [address] PCP - General Family Medicine 09/08/16 Barrel Lathe Operator Inside Relationship Specialty Start Date End Date Stefan Moore MD [address] [place] [address] PCP - General Family Medicine 09/08/16 Barrel Lathe Operator Inside Relationship Specialty Start Date End Date Stefan Moore MD [address] [place] [address] PCP - General Family Medicine 09/08/16 Dion Chavarria MD [address] [place] [address] Hematology/Oncology 01/10/23 Barrel Lathe Operator Inside Relationship Specialty Start Date End Date Stefan Moore MD [address] [place] [address] PCP - General Family Medicine 09/08/16 Dion Chavarria MD [address] [place] [address] Hematology/Oncology 01/10/23 Barrel Lathe Operator Inside Relationship Specialty Start Date End Date Stefan Moore MD [address] [facility] [place] [address] PCP - General Family Medicine 09/08/16 Dion Chavarria MD [address] [place] [address] Hematology/Oncology 01/10/23 Barrel Lathe Operator Inside Relationship Specialty Start Date End Date Stefan Moore MD [address] [place] [address] PCP - General Family Medicine 09/08/16 Dion Chavarria MD [address] [place] [address] Hematology/Oncology 01/10/23 Barrel Lathe Operator Inside Relationship Specialty Start Date End Date Stefan Moore MD [address] [facility] [place] [address] PCP - General Family Medicine 09/08/16 Barrel Lathe Operator Inside Relationship Specialty Start Date End Date Stefan Moore MD [address] [facility] [place] [address] PCP - General Family Medicine 09/08/16 Dion Chavarria MD [address] [place] [address] Hematology/Oncology 01/10/23 Barrel Lathe Operator Inside Relationship Specialty Start Date End Date Stefan Moore MD [address] [place] [address] PCP - General Family Medicine 09/08/16 Dion Chavarria MD [address] [place] [place] [address] Hematology/Oncology 01/10/23 Barrel Lathe Operator Inside Relationship Specialty Start Date End Date Stefan Moore MD [address] [facility] [place] [address] PCP - General Family Medicine 09/08/16 Dion Chavarria MD [address] [place] [address] Hematology/Oncology 01/10/23 Barrel Lathe Operator Inside Relationship Specialty Start Date End Date Stefan Moore MD [address] [place] [address] PCP - General Family Medicine 09/08/16 Dion Chavarria MD [address] [place] [address] Hematology/Oncology 01/10/23 Barrel Lathe Operator Inside Relationship Specialty Start Date End Date Stefan Moore MD [address] [place] [address] PCP - General Family Medicine 09/08/16 Dion Chavarria MD [address] [place] [address] Hematology/Oncology 01/10/23 Barrel Lathe Operator Inside Relationship Specialty Start Date End Date Stefan Moore MD [address] [place] [address] PCP - General Family Medicine 09/08/16 Dion Chavarria MD [address] [place] [address] Hematology/Oncology 01/10/23 FOR RECORDS PERTAINING TO PATIENTS [...] BE BASED ON THE PRIMARY CLINICAL RECORDS. [employer] [facility]. provides no warranty or guarantee of the accuracy or completeness of information in this document.
[2023-06-21 08:48] LABS: Absolute Lymphocyte Count 1.24 X10^3/uL (0.83-4.51); Absolute Neutrophil Count 2.9 X10^3/uL (2.0-7.7); Basophil# 0.04 X10^3/uL; Basophil% 0.8 % (0-1); Eosinophil# 0.28 X10^3/uL; Eosinophils% 5.7 % (0-5); Hematocrit 33.5 % (37-47); Hemoglobin 10.1 g/dL (12.0-15.0); Lymphocyte # 1.24 X10^3/ul (0.83-4.51); Lymphocyte % 25.3 % (19-41); Mean Corp Hgb Conc 30.1 g/dL (32-36); Mean Corpuscular Volume 89.6 fL (81-99); Mean Platelet Vol. 9.5 fl (6.2-12.0); Monocyte# 0.48 X10^3/uL; Monocyte% 9.8 % (0-10); NRBC Flagged by Analyzer 0 % (0-5); Neutrophil # 2.85 X10^3/uL (2.7-7.7); Neutrophil % 58.2 % (47-70); Platelet Count 223 K/mm3 (150-450); RBC Distribution Width CV 18.9 % (11.6-14.6); RBC Distribution Width SD 61.6 fl (35.1-43.9); Red Blood Count 3.74 M/mm3 (4.2-5.4); White Blood Count 4.9 K/mm3 (4.4-11.0)
[2023-06-21 09:15] LABS: AST(SGOT) 10 U/L (15-37); Alanine Aminotransfer ALT/SGPT 9 U/L (13-56); Albumin, Serum 2.9 g/dL (3.2-5.0); Alkaline Phosphatase 100 U/L (45-117); Bilirubin, Direct 0.12 mg/dL (0.00-0.30); Cholesterol 138 mg/dL (200); Globulin 3.5 g/dL (2.2-4.2); High Density Lipoprotein 41 mg/dL; Protein, Total 6.4 g/dL (6.4-8.2); Thyroid Stim Hormone (TSH) 1.49 uIU/mL (0.358-3.74); Triglycerides 100 mg/dL; Very Low Density Lipoprotein 20 mg/dL (5-40)
[2023-06-21 09:29] LABS: Hemoglobin A1c 5.4 % (3.8-5.6)
== END ==
LOC: OLS.WHLEAS 05:00
PROVIDERS: PCP Family Medicine; Visit Provider Internal Medicine
DX: D52.9 Folate deficiency anemia, unspecified (principal); E11.22 Type 2 diabetes mellitus 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 chronic kidney disease; I48.0 Paroxysmal atrial fibrillation; M62.561 Muscle wasting and atrophy, not elsewhere classified, right lower leg; S82.201D Unspecified fracture of shaft of right tibia, subsequent encounter for closed fracture with routine healing; N18.9 Chronic kidney disease, unspecified
CPT/HCPCS: 36415; 80061; 80076; 83036; 84443; 85025

== ENCOUNTER → 2023-06-28 | Outpatient (REF) | payer MEDICARE, SELFPAY ==
--- OUTSIDE RECORDS SUMMARY | 2023-06-28 06:36 | XMS RPT_ITS | CCD ---
Author Name Unknown Address [address] [place] [address] Organization [facility] Care Team Providers Care Special Inspector Name Role Phone LAWSON VARMA Unavailable Unavailable [...] MD Unavailable OSCAR ROTHMAN, STEFAN Primary Care Physician GABRIELA ROTHMAN, DR EHTEL Arellano Attending STEFAN Dave MD Primary Care [...] Care Unavailable OSCAR, STEFAN Hackett Referring Unavailable DION CHAVARRIA Referring [...] simvastatin; Translations: [EZETIMIBE-SIMV ASTATIN] Drug [facility] Hmg-Coa Reductase Inhibitors (Statins); Translations: [XTPXBCL-FRZ-DO A REDUCTASE INHIBITORS] Propensity to adverse reactions (disorder) 7 Other: See Comments [facility] Repository (20 sources) metFORMIN; Translations: [METFORMIN] Drug Allergy 4 Other: See Comments [facility] Repository (20 sources) simvastatin; Translations: [SIMVASTATIN] Drug Allergy 1 Contraindicatio [facility] Repository (20 sources) Iodine; Translations: [IODINE] Drug Allergy 1 Rash, Unknown, [facility] (1 source) HMG-CoA reductase inhibitor; Translations: [statins] Drug allergy [facility] (1 source) Shellfish 1 Food allergy [facility] Medications Current Medications Medication Drug Class(es) [...] to stage 3b chronic kidney disease (HCC) ([facility])] Onset: 3 Diabetes mellitus with complications (20 sources) Type 2 diabetes mellitus; Translations: [Type 2 diabetes mellitus 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 polyneuropathy] Onset: 8 07-22-2020 Chronic Diabetes mellitus without complication (1 source) Diabetes mellitus without complication; Translations: [Type 2 diabetes mellitus with stage 3b chronic kidney disease, without long-term current use of insulin ([facility])] Onset: 2 Disorders of lipid metabolism [...] height 172.[address] ETHEL OCHOA MD [facility] 06-16-2023 13:15-0500 Body weight [address] ETHEL OCHOA MD [facility] 05-01-2023 14:10-0500 Body temperature 97.5 [degF] Dion Chavarria MD Work Phone: [facility] 05-01-2023 14:10-0500 Diastolic blood pressure 57 mm[Hg] Dion Chavarria MD Work Phone: [facility] 05-01-2023 14:10-0500 Heart rate 87 /min Dion Chavarria MD Work Phone: [facility] 05-01-2023 14:10-0500 SaO2% (BldA) [Mass fraction] 96 % Dion Chavarria MD Work Phone: [facility] 05-01-2023 14:10-0500 Systolic blood pressure 105 mm[Hg] Dion Chavarria MD Work Phone: [facility] 04-05-2023 09:26-0400 Body height 172.7 cm Stefan Moore MD Work Phone: [facility] 04-05-2023 09:26-0400 Body weight 94.35 kg Stefan Moore MD Work Phone: [facility] 04-05-2023 09:26-0400 Diastolic blood pressure 48 mm[Hg] Stefan Moore MD Work Phone: [facility] 04-05-2023 09:26-0400 Heart rate 80 /min Stefan Moore MD Work Phone: [facility] 04-05-2023 09:26-0400 SaO2% (BldA) [Mass fraction] 95 % Stefan Moore MD Work Phone: [facility] 04-05-2023 09:26-0400 Systolic blood pressure 120 mm[Hg] Stefan Moore MD Work Phone: [facility] 01-10-2023 12:19-0400 Body temperature 97 [degF] Dion Chavarria MD Work Phone: [facility] 01-10-2023 12:19-0400 Body weight 90.27 kg Dion Chavarria MD Work Phone: [facility] 01-10-2023 12:19-0400 Diastolic blood pressure 66 mm[Hg] Dion Chavarria MD Work Phone: [facility] 01-10-2023 12:19-0400 Heart rate 75 /min Dion Chavarria MD Work Phone: [facility] 01-10-2023 12:19-0400 SaO2% (BldA) [Mass fraction] 97 % Dion Chavarria MD Work Phone: [facility] 01-10-2023 12:19-0400 Systolic blood pressure 128 mm[Hg] Dion Chavarria MD Work Phone: [facility] 01-02-2023 12:59-0400 Body height 172.[address] [facility] 01-02-2023 12:59-0400 Body weight 94.[address] [facility] 12-10-2022 10:50-0400 Body height 172.7 cm Stefan Moore MD Work Phone: [facility] 12-10-2022 10:50-0400 Body weight 92.53 kg Stefan Moore MD Work Phone: [facility] 12-10-2022 10:50-0400 Diastolic blood pressure 58 mm[Hg] Stefan Moore MD Work Phone: [facility] 12-10-2022 10:50-0400 Heart rate 80 /min Stefan Moore MD Work Phone: [facility] 12-10-2022 10:50-0400 SaO2% (BldA) [Mass fraction] 96 % Stefan Moore MD Work Phone: [facility] 12-10-2022 10:50-0400 Systolic blood pressure 140 mm[Hg] Stefan Moore MD Work Phone: [facility] 11-07-2022 13:35-0400 Diastolic blood pressure 60 mm[Hg] Monae Haagen TONSORIAL ARTIST.[employer] REMOVER Work Phone: [facility] 11-07-2022 13:35-0400 Heart rate 83 /min Monae Haagen TONSORIAL ARTIST.P[employer] REMOVER Work Phone: [facility] 11-07-2022 13:35-0400 Respiratory rate 16 /min Monae Haagen TONSORIAL ARTIST.P[employer] REMOVER Work Phone: [facility] 11-07-2022 13:35-0400 SaO2% (BldA) [Mass fraction] 96 % Monae Haagen TONSORIAL ARTIST.PICK REMOVER Work Phone: [facility] 11-07-2022 13:35-0400 Systolic blood pressure 132 mm[Hg] Monae Haagen TONSORIAL ARTIST.P[employer] REMOVER Work Phone: [facility] 08-23-2022 15:46-0400 Diastolic blood pressure 60 mm[Hg] Stefan Moore MD Work Phone: [facility] 08-23-2022 15:46-0400 Systolic blood pressure 138 mm[Hg] Stefan Moore MD Work Phone: [facility] 08-23-2022 15:23-0400 Body height 172.7 cm Stefan Moore MD Work Phone: [facility] 08-23-2022 15:23-0400 Body weight 94.89 kg Stefan Moore MD Work Phone: [facility] 08-23-2022 15:23-0400 Heart rate 84 /min Stefan Moore MD Work Phone: [facility] 08-23-2022 15:23-0400 SaO2% (BldA) [Mass fraction] 97 % Stefan Moore MD Work Phone: [facility] 07-13-2022 11:05-0500 Diastolic blood pressure 58 mm[Hg] Mi Nurse Work Phone: [facility] 07-13-2022 11:05-0500 Heart rate 70 /min Mi Nurse Work Phone: [facility] 07-13-2022 11:05-0500 Systolic blood pressure 128 mm[Hg] Mi Nurse Work Phone: [facility] 06-28-2022 14:06-0500 Diastolic blood pressure 75 mm[Hg] Mi Nurse Work Phone: [facility] 06-28-2022 14:06-0500 Heart rate 76 /min Mi Nurse Work Phone: [facility] 06-28-2022 14:06-0500 Systolic blood pressure 157 mm[Hg] Mi Nurse Work Phone: [facility] 06-08-2022 09:57-0500 Body temperature 96.01 [degF] Chun Brewster MD Work Phone: [facility] 06-08-2022 09:57-0500 Body weight 94.17 kg Chun Brewster MD Work Phone: [facility] 06-08-2022 09:57-0500 Diastolic blood pressure 84 mm[Hg] Chun Brewster MD Work Phone: [facility] 06-08-2022 09:57-0500 Heart rate 82 /min Chun Brewster MD Work Phone: [facility] 06-08-2022 09:57-0500 Respiratory rate 18 /min Chun Brewster MD Work Phone: [facility] 06-08-2022 09:57-0500 SaO2% (BldA) [Mass fraction] 96 % Chun Brewster MD Work Phone: [facility] 06-08-2022 09:57-0500 Systolic blood pressure 156 mm[Hg] Chun Brewster MD Work Phone: [facility] 05-24-2022 12:38-0500 Body height 172.7 cm Stefan Moore MD Work Phone: [facility] 05-24-2022 12:38-0500 Body weight 94.8 kg Stefan Moore MD Work Phone: [facility] 05-24-2022 12:38-0500 Diastolic blood pressure 58 mm[Hg] Stefan Moore MD Work Phone: [facility] 05-24-2022 12:38-0500 Heart rate 61 /min Stefan Moore MD Work Phone: [facility] 05-24-2022 12:38-0500 SaO2% (BldA) [Mass fraction] 97 % Stefan Moore MD Work Phone: [facility] 05-24-2022 12:38-0500 Systolic blood pressure 150 mm[Hg] Stefan Moore MD Work Phone: [facility] 05-02-2022 12:04-0500 Body temperature 97.81 [degF] Yadira Chaudhry MD Work Phone: [facility] 05-02-2022 12:04-0500 Body weight 96.62 kg Yadira Chaudhry MD Work Phone: [facility] 05-02-2022 12:04-0500 Diastolic blood pressure 67 mm[Hg] Yadira Chaudhry MD Work Phone: [facility] 05-02-2022 12:04-0500 Heart rate 85 /min Yadira Chaudhry MD Work Phone: [facility] 05-02-2022 12:04-0500 Systolic blood pressure 154 mm[Hg] Yadira Chaudhry MD Work Phone: [facility] 04-07-2022 10:09-0400 Body temperature 99.19 [degF] NA King PA-C Work Phone: [facility] 04-07-2022 10:09-0400 Diastolic blood pressure 58 mm[Hg] NA King PA-C Work Phone: [facility] 04-07-2022 10:09-0400 Heart rate 84 /min NA King PA-C Work Phone: [facility] 04-07-2022 10:09-0400 Respiratory rate 20 /min NA King PA-C Work Phone: [facility] 04-07-2022 10:09-0400 SaO2% (BldA) [Mass fraction] 94 % NA King PA-C Work Phone: [facility] 04-07-2022 10:09-0400 Systolic blood pressure 126 mm[Hg] NA King PA-C Work Phone: [facility] 03-28-2022 15:46-0400 Body temperature 98.4 [degF] NA King PA-C Work Phone: [facility] 03-28-2022 15:46-0400 Diastolic blood pressure 60 mm[Hg] NA King PA-C Work Phone: [facility] 03-28-2022 15:46-0400 Heart rate 84 /min NA King PA-C Work Phone: [facility] 03-28-2022 15:46-0400 Respiratory rate 20 /min NA King PA-C Work Phone: [facility] 03-28-2022 15:46-0400 SaO2% (BldA) [Mass fraction] 97 % NA King PA-C Work Phone: [facility] 03-28-2022 15:46-0400 Systolic blood pressure 130 mm[Hg] NA King PA-C Work Phone: [facility] 02-14-2022 14:37-0400 Body weight 97.98 kg Stefan Moore MD Work Phone: [facility] 02-14-2022 14:37-0400 Diastolic blood pressure 66 mm[Hg] Stefan Moore MD Work Phone: [facility] 02-14-2022 14:37-0400 Heart rate 83 /min Stefan Moore MD Work Phone: [facility] 02-14-2022 14:37-0400 Respiratory rate 16 /min Stefan Moore MD Work Phone: [facility] 02-14-2022 14:37-0400 SaO2% (BldA) [Mass fraction] 98 % Stefan Moore MD Work Phone: [facility] 02-14-2022 14:37-0400 Systolic blood pressure 132 mm[Hg] Stefan Moore MD Work Phone: [facility] 01-31-2022 13:46-0400 Body weight 102.06 kg Stefan Moore MD Work Phone: [facility] 01-31-2022 13:46-0400 Diastolic blood pressure 62 mm[Hg] Stefan Moore MD Work Phone: [facility] 01-31-2022 13:46-0400 Heart rate 68 /min Stefan Moore MD Work Phone: [facility] 01-31-2022 13:46-0400 Systolic blood pressure 124 mm[Hg] Stefan Moore MD Work Phone: [facility] 01-24-2022 11:41-0400 Diastolic blood pressure 60 mm[Hg] Flor Moorehof TONSORIAL ARTIST.PICK REMOVER Work Phone: [facility] 01-24-2022 11:41-0400 Heart rate 77 /min Flor Moorehof TONSORIAL ARTIST.P[employer] REMOVER Work Phone: [facility] 01-24-2022 11:41-0400 Respiratory rate 16 /min Florgeorgia Moorehof TONSORIAL ARTIST.P[employer] REMOVER Work Phone: [facility] 01-24-2022 11:41-0400 SaO2% (BldA) [Mass fraction] 98 % Flor Moorehof TONSORIAL ARTIST.P[employer] REMOVER Work Phone: [facility] 01-24-2022 11:41-0400 Systolic blood pressure 114 mm[Hg] Flor Moorehof TONSORIAL ARTIST.P[employer] REMOVER Work Phone: [facility] 01-14-2022 12:01-0400 Body temperature 97.2 [degF] Ana Bell TONSORIAL ARTIST.P[employer] REMOVER Work Phone: [facility] 01-14-2022 12:01-0400 Body weight 101.42 kg Ana Bell APRN.[employer]OVER Work Phone: [facility] 01-14-2022 12:01-0400 Diastolic blood pressure 72 mm[Hg] Ana Bell APRN.P[employer] REMOVER Work Phone: [facility] 01-14-2022 12:01-0400 Heart rate 79 /min Ana Bell APRN.[employer]OVER Work Phone: [facility] 01-14-2022 12:01-0400 Respiratory rate 18 /min Ana Ray MTZ.[employer] Work Phone: [facility] 01-14-2022 12:01-0400 SaO2% (BldA) [Mass fraction] 99 % Ana Bell APRN.P[employer] REMOVER Work Phone: [facility] 01-14-2022 12:01-0400 Systolic blood pressure 142 mm[Hg] Ana Bell APRN.P[employer] REMOVER Work Phone: [facility] 12-31-2021 09:46-0400 Body temperature 97.81 [degF] Stefan Moore MD Work Phone: [facility] 12-31-2021 09:46-0400 Diastolic blood pressure 58 mm[Hg] Stefan Moore MD Work Phone: [facility] 12-31-2021 09:46-0400 Heart rate 78 /min Stefan Moore MD Work Phone: [facility] 12-31-2021 09:46-0400 Respiratory rate 18 /min Stefan Moore MD Work Phone: [facility] 12-31-2021 09:46-0400 SaO2% (BldA) [Mass fraction] 97 % Stefan Moore MD Work Phone: [facility] 12-31-2021 09:46-0400 Systolic blood pressure 138 mm[Hg] Stefan Moore MD Work Phone: [facility] 12-23-2021 09:48-0400 Body temperature 97.2 [degF] CHANTE MONAHAN-C Work Phone: [facility] 12-23-2021 09:48-0400 Diastolic blood pressure 64 mm[Hg] NA King PA-C Work Phone: [facility] 12-23-2021 09:48-0400 Heart rate 84 /min NA King PA-C Work Phone: [facility] 12-23-2021 09:48-0400 Respiratory rate 20 /min NA King PA-C Work Phone: [facility] 12-23-2021 09:48-0400 SaO2% (BldA) [Mass fraction] 97 % NA King PA-C Work Phone: [facility] 12-23-2021 09:48-0400 Systolic blood pressure 136 mm[Hg] NA King PA-C Work Phone: [facility] 10-04-2021 16:04-0400 Body temperature 98.49 [degF] Yadira Chaudhry MD Work Phone: [facility] 10-04-2021 16:04-0400 Body weight 103.87 kg Yadira Chaudhry MD Work Phone: [facility] 10-04-2021 16:04-0400 Diastolic blood pressure 72 mm[Hg] Yadira Chaudhry MD Work Phone: [facility] 10-04-2021 16:04-0400 Heart rate 76 /min Yadira Chaudhry MD Work Phone: [facility] 10-04-2021 16:04-0400 SaO2% (BldA) [Mass fraction] 97 % Yadira Chaudhry MD Work Phone: [facility] 10-04-2021 16:04-0400 Systolic blood pressure 164 mm[Hg] Yadira Chaudhry MD Work Phone: [facility] Encounters Encounter Date Encounter Type Care Provider Facility Start: 06-16-2023 End: 06-17-[address] ETHEL OCHOA MD Facility:[facility] Start: 06-16-2023 End: 06-16-[address] ETHEL OCHOA MD [facility] Start: 06-15-2023 End: 06-16-2023 ambulatory [facility] Facility:[facility] Start: 06-08-2023 End: 06-08-2023 ambulatory [facility] Facility:[facility] Start: 06-01-2023 End: 06-01-2023 ambulatory [facility] Facility:[facility] Start: 05-25-2023 End: 05-25-2023 ambulatory [facility] Facility:[facility] Start: 05-11-2023 End: 05-11-2023 ambulatory Treatment Rm 12 [facility] Work Phone: Hematology/Oncology Procedures Date Procedure Procedure Detail Performing Clinician Start: 01-20-2023 Radex toe minimum 2 views Dali Sepulveda Work Phone: Start: 03-28-2022 Radiologic exam ches t 2 views M Tyree King PA-C Work Phone: Start: 01-24-2022 Dup-scan xtr veins unilateral/limited study Flor Boyle APRN.P[employer] REMOVER Work Phone: Start: 01-12-2022 Mri spinal canal lum bar w/o contrast material [facility] Provider Start: 04-20-2021 Adult depression screening assessment Mi Nurse Work Phone: Carpal tunnel syndro me (disorder) DR ETHEL OCHOA MD Plan of Treatment Date Care Activity Detail Author Start: 12-16-2023 Hepatitis B screening URINE ALBUMIN:CREATININE RATIO [facility] Start: 09-27-2023 Glaucoma screening Dilated Retinal Exam [facility] Start: 09-27-2023 Hepatitis C antibody, confirmatory test DILATED RETINAL EXAM [facility] Start: 09-01-2023 Hepatitis B surface antibody level LDL CHOLESTEROL [facility] Start: 06-12-2023 End: 08-12-2023 Hemoglobin A1c in Blood HGB A1C Lab Routine Type 2 diabetes mellitus 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 peripheral angiopathy without gangrene, without long-term current use of insulin (HCC) Type 2 diabetes mellitus with stage 3b chronic kidney disease, without long-term current use of insulin (HCC) Expected: 06/12/2023, Expires: 08/12/2023 [facility] Work Phone: Immunizations Immunization Date Immunization Notes Care Provider Betty kraus 10-20-2022 COVID-19 vaccine, ag e 12+ yr, bivalent (PFIZER-BIONTECH) Fito Saenz MD Work Phone: [facility] Work Phone: 02-24-2022 COVID-19 booster vaccine, age 12+ yr, bivalent (PFIZER-BIONTECH) Yadira Chaudhry MD Work Phone: [facility] Work Phone: 02-24-2022 influenza, high-dose , quadrivalent vaccine (FLUZONE HIGH DOSE QUADRIVALENT) Yadira Chaudhry MD Work Phone: [facility] Work Phone: 02-24-2022 influenza virus vacc ine, unspecified formulation Stefan Moore MD Work Phone: [facility] 03-29-2021 influenza, high-dose , quadrivalent vaccine (FLUZONE HIGH DOSE QUADRIVALENT) Vt Nurse Work Phone: [facility] 08-12-2020 COVID-19 vaccine, fu ll dose (MODERNA) Vt Nurse Work Phone: [facility] 07-16-2020 COVID-19 vaccine, fu ll dose (MODERNA) Vt Nurse Work Phone: [facility] 05-25-2020 zoster vaccine recombinant Stefan Moore MD Work Phone: [facility] 03-14-2020 influenza (aIIV4) vaccine, age 65+ yr, quadrivalent, PF (FLUAD QUADRIVALENT) Stefan Moore MD Work Phone: [facility] 03-14-2020 zoster vaccine recombinant Vt Nurse Work Phone: [facility] 03-05-2020 influenza, seasonal, injectable, preservative free Stefan Moore MD Work Phone: [facility] 02-18-2020 influenza, high dose seasonal, preservative-free Mi Nurse Work Phone: [facility] 03-11-2019 influenza, high dose seasonal, preservative-free Mi Nurse Work Phone: [facility] Work Phone: 02-26-2018 influenza, high dose seasonal, preservative-free Mi Nurse Work Phone: [facility] Work Phone: 05-09-2017 influenza, high dose seasonal, preservative-free Mi Nurse Work Phone: [facility] 03-05-2017 influenza, seasonal, injectable, preservative free Stefan Moore MD Work Phone: [facility] 04-07-2016 influenza, high dose seasonal, preservative-free Mi Nurse Work Phone: [facility] 04-06-2015 influenza, high dose seasonal, preservative-free Mi Nurse Work Phone: [facility] 10-07-2014 pneumococcal conjuga te vaccine, 13 valent Mi Nurse Work Phone: [facility] 03-14-2014 influenza, seasonal, injectable Mi Nurse Work Phone: [facility] 04-02-2013 influenza virus vacc ine, unspecified formulation Mi Nurse Work Phone: [facility] 03-05-2013 influenza, seasonal, injectable, preservative free Stefan Moore MD Work Phone: [facility] 04-02-2012 influenza virus vacc ine, unspecified formulation Mi Nurse Work Phone: [facility] 03-21-2012 zoster vaccine, live Mi Nurs e Work Phone: [facility] Work Phone: 06-03-2010 influenza virus vacc ine, unspecified formulation Mi Nurse Work Phone: [facility] 06-03-2010 pneumococcal polysaccharide vaccine, 23 valent Mi Nurse Work Phone: [facility] 05-13-2008 influenza virus vacc ine, unspecified formulation Vt Nurse Work Phone: [facility] Work Phone: 04-04-2007 influenza virus vacc ine, unspecified formulation Mi Nurse Work Phone: [facility] Work Phone: 03-15-2007 diphtheria and tetan us toxoids, adsorbed for pediatric use Mi Nurse Work Phone: [facility] Work Phone: 04-26-2005 influenza virus vacc ine, unspecified formulation Mi Nurse Work Phone: [facility] 05-17-2000 pneumococcal polysaccharide vaccine, 23 valent Mi Nurse Work Phone: [facility] Work Phone: 03-17-1997 diphtheria and tetan us toxoids, adsorbed for pediatric use Mi Nurse Work Phone: [facility] Work Phone: Payers Date Payer Category Payer Medicare [employer] MEDICARE A ETNA MEDICARE PPO [id number] 2021-Present [phone] [address] [place] [address] PPO [id number] 2021 Medicare [employer] MEDICARE A ETNA MEDICARE PPO [id number] 2021-Present [phone] [address] [place] [address] PPO [id number] 2021 Private Health Insurance 101 [id number] 1940 Unknown [id number] Medicare [id number] Social History Date Type Detail Facility Start: 11-09-2010 End: 06-16-2023 Tobacco smoking status RIIS Never smoked tobacco [facility] Start: 08-02-2021 End: 05-11-2023 Alcohol intake Current non-drinker of alcohol (finding) [facility] Start: 1940 Sex Assigned At Not on file [facility] Start: 08-16-2021 End: 05-02-2022 Exposure to SARS-CoV-2 (event) Not sure [facility] Start: 11-09-2010 Tobacco use and exposure Smokeless tobacco non-user [facility] Work Phone: Start: 10-12-2022 End: 12-10-2022 History of Social function [facility] Work Phone: Start: 10-12-2022 End: 12-10-2022 Tobacco use panel [facility] Work Phone: Adult Depression Screening Assessment 2 [facility] Work Phone: Sex Assigned At Sex [facility] Medical Equipment Procedure Code Equipment Code Equipment Origin al Text Equipment Identifier Dates Start: 02-10-2015 End: 09-23-2022 Functional Status Date Assessment Result Facility 06-16-2023 Functional Status Sensory Deficits None A [facility] Clinical Notes 11-10-2017 to 06-15-2023 Telephone Encounter - Chacha Ferris - 05/18/2023 4:45 PM ESTTelephone Encounter - Chrissy Ardon - 05/18/2023 11:16 AM ESTTelephone Encounter - Chrissy Ardon - 05/16/2023 10:27 AM EST Note Date & Type Note Facility 06-15-2023 Note [facility] 05-18-2023 Miscellaneous Notes Patient called back and [...] OV Thank you! documented in this encounter [facility] 05-11-2023 Note [facility] 05-11-2023 Note [facility] 05-11-2023 Note [facility] 05-11-2023 Miscellaneous Notes Patient on 1st time treatment report-non oncology regimen (venofer) Patient holds medicare coverage and no FA available for this treatment. documented in this encounter [facility] 05-11-2023 History of Present illness Narrative Last [...] nail care. She currently is living at [facility] where she is receiving rehab for a tibia fx. She plans to return home once she can ambulate. She presents in wheelchair. documented in this encounter [facility] 05-11-2023 Instructions Dali Sepulveda - 05/11/2023 3:49 [...] (or decreased sensation in your feet) a hand chain maker should always cut your toenails. Be Careful [...] Go to your health care provider or hand chain maker to treat these conditions. documented in this encounter [facility] 05-11-2023 Note HNO ID: [id number] Author: Nadiya Lucas LPN Service: ? Author Type: LICENSED NURSE Type: Progress Notes Filed: 05/22/2023 9:30 AM Note Text: Est. Pt. OV prior to Venofer infusion today. Nadiya Lucas LPN [facility] 05-11-2023 History of Present illness Narrative Pt refused observation due to hand chain maker appt at 1500 today. States that she feels fine after the infusion and will be in the building if something were to happen. Denies ever having a reaction with prior iron infusions. Delmi aLndrum RN documented in this encounter [facility] 05-11-2023 Note [facility] 05-01-2023 Note [facility] 05-01-2023 History of Present illness Narrative (Elements [...] received a small bowel capsule endoscopy at [place] she was also negative. Her transferrin saturation [...] neg for blood per pt. .labs from [facility] reviewed, hgb low 8 range there. 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 Lxdgikl-Waq-Uvs Red* Other: See Comments myopathy Vytorin 10-10 [...] Sodium Chloride (Deep Sea Nasal) 0.65 % Aerosol,Stella Active 2 SPRAY NASAL EVERY 4 HOURS [...] (Patient not taking: Reported on 04/05/2023) Insulin [place], Disposable, (BD ULTRA-FINE HORTENCIA PEN NEEDLE) 32 [...] which included preparing to see the patient, [id number] patient care, completing clinical documentation, obtaining and/or reviewing separately obtained history, performing a medically appropriate examination, counseling and educating the patient/family/caregiver, ordering medications, tests, or procedures, independently interpreting results (not separately reported), and communicating results to the patient/family/caregiver. Electronically Signed: Dion Chavarria MD May 01, 2023 documented in this encounter [facility] 04-05-2023 Note [facility] 04-05-2023 History of Present illness Narrative Patient presents with: Hospital F/U HPI: Patient presents today for office visit for hospital follow up. -was requested for surgical clearance by [facility]. Hospitalized for fracture of the right tibial shaft. Moved to tcu for rehab. Had labs done currently at [facility]. Discussed that her clearance should usually should come from her in house doctor at [facility]. They are monitoring labs. They were concerned about her renal function has had anemia of chronic disease and ckd and had seen nephrology, Dr. Benavidez at [facility] previously. She had elected to follow with us up until her accident instead of traveling to nephrology out of the area. Also seeing [facility] hematology for her anemia. Discussed that they may want to have nephrology see her before surgery since they have not see her in several years. Just saw [facility] in August. No chest pain [...] Sodium Chloride (Deep Sea Nasal) 0.65 % Aerosol,Stella Active 2 SPRAY NASAL EVERY 4 HOURS [...] mouth every 8 hours as needed. 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 Final clearance would also need to be obtained from her primary care physician currently in charge of her care at [facility], Dr. Sharpe. She would need clearance from Cardiology. If her renal function remains poor, she may need clearance from nephrology. She has previously seen Dr. Benavidez at [facility]. She also may need clearance from [facility] hematology here in [place]. She is on cpap so that will [...] Stefan Moore MD Rto once discharged from [facility]. documented in this encounter [facility] 03-30-2023 Miscellaneous Notes Spoke with pt and she is still at [facility]. a 40 min Hospital FU booked for 04-06-23. Pt is checking with [facility] regarding transportation. Brittany Colby LPN TC to pt, left message to return call to office. Yusuf You LPN Needs follow up visit.-40 minute hospital/ECF follow up Type of form: Surgery Clearance Form received via fax When form is completed, Fax form to [phone] Form has been forwarded to Physician Desk: Dr. Oscar Francis LPN Pt calls to report she had appt with [facility] today for fracture of tibia and fibula. Pt reports she fell at the beginning of Feb. Pt reports she did break the bone near the knee. Pt reports she has to have surgery and [facility] is going to send OV notes to pcp. HERO Rodriguez at [facility] advised pt that kidney function is not good and pt needs to f/u with kidney specialist. Pt wanted Dr. Moore to know what is going on. Kaycee Contreras LPN documented in this encounter [facility] 01-20-2023 Note [facility] 01-20-2023 Note [facility] 01-20-2023 Note [facility] 01-20-2023 History of Present illness Narrative Radiology [...] 2023 2:51 PM documented in this encounter [facility] 01-13-2023 Note [facility] 01-13-2023 History of Present illness Narrative Patient presents for B-12 injection. Denies any problems at this time. Patient instructed on any SE of medication, verbalized understanding and agreed to proceed with treatment. Tolerated injection well. Erica Colorado LPN documented in this encounter [facility] 01-10-2023 Note [facility] 01-10-2023 History of Present illness Narrative HISTORY OF PRESENT ILLNESS: Coni Romero is a 82 year old female chronic anemia, stage IIIb chronic kidney disease, and iron deficiency. Her Hgb was down to 6.3 g/DL on 10/21/2020. Reportedly she received 3 units RBC transfusion. Upper and lower GI endoscopy were negative for bleeding. She also had received a small bowel capsule endoscopy at [place] she was also negative. Her transferrin saturation 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 Stywhpj-Hdl-Ask Red* Other: See Comments myopathy Vytorin 10-10 [...] 8 hours as needed. ^Disp: ^Rfl: Insulin Malaga, Disposable, (BD ULTRA-FINE HORTENCIA PEN NEEDLE) 32 [...] which included preparing to see the patient, zfdu-jn-knii patient care, completing clinical documentation, obtaining and/or reviewing separately obtained history, performing a medically appropriate examination, counseling and educating the patient/family/caregiver, ordering medications, tests, or procedures, independently interpreting results (not separately reported), and communicating results to the patient/family/caregiver. Electronically Signed: Dion Chavarria MD January 10, 2023 12:24 PM documented in this encounter [facility] 01-02-2023 Note [facility] 01-02-2023 Instructions Marii Ruiz, RD - 01/02/2023 1:25 PM EDT Change to soy milk in cereal Change to lower carb protein supplements, aim for 3 per day Premier, Corelife, Fair life, Equate Watch sodium intake aim for ~1500 mg sodium, refer to handout provided Consider seated exercises as available on Youtube Include protein in meals, meat, cheeses etc. documented in this encounter [facility] 01-02-2023 History of Present illness Narrative Nutrition [...] been trying to lose weight, belongs to [employer]. Has a goal weight of 190. Intake [...] usually Lunch - sandwich roast beef and dutch, or left overs and fruit; Boost Snack [...] TIME: 1:00 PM documented in this encounter [facility] 12-22-2022 Miscellaneous Notes Patient has been identified [...] Camryn Kumar, RN documented in this encounter [facility] 12-19-2022 Miscellaneous Notes Order was released for the urine micro. Will need a new order please. documented in this encounter [facility] 12-16-2022 Note [facility] 12-16-2022 History of Present illness Narrative Patient presents for B-12 injection. Denies any problems at this time. Patient instructed on any SE of medication, verbalized understanding and agreed to proceed with treatment. Tolerated injection well. Erica Colorado LPN documented in this encounter [facility] 12-12-2022 Miscellaneous Notes Faxed to [facility]. Her labs are actually significantly better. Fax copy of labs to her ortho documented in this encounter [facility] 12-10-2022 Note [facility] 12-10-2022 History of Present illness Narrative Patient [...] mouth every 8 hours as needed. Insulin Malaga, Disposable, (BD ULTRA-FINE HORTENCIA PEN NEEDLE) 32 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 Qyycwjv-Zqi-Age Red* Other: See Comments myopathy Vytorin 10-10 [...] I48.0 - will need cardiac clearance per [facility] for surgery. 3. Cardiomyopathy, nonischemic [...] Stefan Moore MD documented in this encounter [facility] 11-17-2022 Note [facility] 11-17-2022 History of Present illness Narrative Patient presents for B-12 injection. Denies any problems at this time. Patient instructed on any SE of medication, verbalized understanding and agreed to proceed with treatment. Tolerated injection well. Erica Colorado LPN documented in this encounter [facility] 11-10-2022 Note [facility] 11-09-2022 Miscellaneous Notes Scheduled appointment with patient. [...] less than 10. documented in this encounter [facility] 11-07-2022 Note [facility] 11-07-2022 Instructions Monae Bowser APRN.PICK REMOVER - 11/07/2022 2:03 PM EDT Get the labwork. Finish the prednisone. Continue to watch sugars. documented in this encounter [facility] 11-07-2022 History of Present illness Narrative This is a 82 year old female who presents today with: Patient presents with: ER F/U: [facility] ER f/u dx: weakness/shortness of breath HISTORY OF PRESENT ILLNESS: Coni Romero is a 82 year old female. Patient presents with: ER F/U: [facility] ER f/u dx: weakness/shortness of breath Pt [...] <AGE 12 Tonsillectomy ALLERGIES Iodine, Metformin, Simvastatin, Ppamlmx-Lvo-Qie Reductase Inhibitors, and Vytorin 10-10 [Ezetimibe-Simvastatin] MEDICATIONS [...] mouth every 8 hours as needed. Insulin Malaga, Disposable, (BD ULTRA-FINE HORTENCIA PEN NEEDLE) 32 [...] with the plan. documented in this encounter [facility] 10-31-2022 Note [facility] 10-31-2022 History of Present illness Narrative Virtualist Progress Note Triage Call Triage source: Triage Call (Nurse Rn Interventional, [facility] Triage, [facility] Phone Triage) Was patient downgraded (i.e. disposition other than go to the ED was advised)? No Mode of contact (phone call, [employer], [email or web address], [employer], Skype, other): phone History/Physical Exam: The patient was seen on October 25 for nasal congestion, sinus pressure, and headache. Chest x-ray was negative. Was prescribed prednisone and doxycycline. Last night, the patient developed severe weakness which has persisted. At this point, she is unable to walk. Her daughter called nurse chief innovation officer and was given a call [phone]. [...] in as Primary Virtualist, Secondary Virtualist, or [facility] Telehealth provider: Secondary SIGNATURE: Fito Saenz MD PATIENT NAME: Coni Romero DATE: October 31, 2022 documented in this encounter [facility] 10-31-2022 Miscellaneous Notes Reason for Call: Patient [...] prefers to have niece drive her to [place] [facility]. Hr Clerk called and spoke to Virtualist, Dr. Fito Saenz, who okayed niece driving patient to ER now. Notified patient of same, they will leave now. Reason for Disposition [1] SEVERE weakness (i.e., unable to walk or barely able to walk, requires support) AND [2] new-onset or worsening Protocols used: Weakness (Generalized) and Edjhdfj-HWXNV-CY documented in this encounter [facility] 2022 Note [facility] 2022 Note [facility] 10-20-2022 Note [facility] 10-14-2022 Miscellaneous Notes Pt notified. She verbalized understanding. Yusuf You LPN She was a little anemic on her labs, but appears stable. I would follow ortho's recommendations, as they want everything to be optimized prior to surgery. Monae Bowser APRN.PICK REMOVER Patient calls and states that she was [...] look at labs that were done at [facility] and advise on these? Patient was told that she will have labs retested again is six weeks and then she will be put on schedule again. Please review and advise, Chacha Smith RN documented in this encounter [facility] 10-12-2022 Note [facility] 10-12-2022 Note [facility] 10-12-2022 Note [facility] 10-12-2022 History of Present illness Narrative Per Dr. Sepulveda, Coni was provided with Tubigrip and instructed/educated in [...] problems to feet. documented in this encounter [facility] 10-06-2022 Miscellaneous Notes Patient has been identified by name and date of :YES Requested Prescriptions Pending Prescriptions Disp Refills levothyroxine (SYNTHROID) 137 mcg tablet 90 tablet 3 Sig: Take 1 tablet by mouth once daily. Take on empty stomach. For thyroid. RX INSTRUCTIONS: Patient aware RX will be sent to pharmacy. No need to notify patient. Annel Dash documented in this encounter [facility] 09-30-2022 Miscellaneous Notes Form received. Will complete at OV. Yusuf You LPN Type of form: Surgery Clearance Patient has appt on 10/19/2022 Form received via fax When form is completed, Fax form to [phone] Form has been forwarded to Physician Mailbox: OTIS Ramirez LPN documented in this encounter [facility] 09-23-2022 Miscellaneous Notes Patient has been identified [...] sent. Ebony Boyce documented in this encounter [facility] 09-22-2022 Note [facility] 09-22-2022 History of Present illness Narrative Patient presents for B-12 injection. Denies any problems at this time. Patient instructed on any SE of medication, verbalized understanding and agreed to proceed with treatment. Tolerated injection well. Erica Colorado LPN documented in this encounter [facility] 09-05-2022 Miscellaneous Notes Patient has been identified by name and date of : Yes Requested Prescriptions Pending Prescriptions Disp Refills Lancets lancets 100 Each 11 Sig: Test glucose 2x/daily, 250.02, insulin use: yes RUSSEL-08/23/22 Labs-3/Apr-02/23/23 RX INSTRUCTIONS: Patient aware RX will be sent to pharmacy. No need to notify patient. Meredith Earnestine Pss documented in this encounter [facility] 08-23-2022 Note [facility] 08-23-2022 Miscellaneous Notes Addended by: STEFAN MOORE on: 08/23/2022 03:49 PM Modules accepted: Orders documented in this encounter [facility] 08-23-2022 History of Present illness Narrative Patient [...] 1.00 - 4.00 k/uL 0.93 (L) 1.48 Burt% % 7.0 5.7 Abs Burt <0.87 k/uL 0.35 0.37 Eosin% % 4.2 [...] mouth every 8 hours as needed. Insulin Malaga, Disposable, (BD ULTRA-FINE HORTENCIA PEN NEEDLE) 32 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 Flvujuc-Hqq-Jru Red* Other: See Comments myopathy Vytorin 10-10 [...] polyneuropathy, without long-term current use of insulin ([facility]) - ICD9: 250.60, 357.2, ICD10: E11.42 (primary diagnosis) - stable. - BASIC METABOLIC PNL - HGB A1C 2. Paroxysmal atrial fibrillation (HCC) - ICD9: 427.31, ICD10: I48.0 - doing well. 3. Pure hypercholesterolemia - ICD9: 272.0, ICD10: E78.00 - follow labs. 4. Type 2 diabetes mellitus 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 peripheral angiopathy without gangrene, without long-term current use of insulin ([facility]) - ICD9: 250.70, 443.81, ICD10: E11.51 - Controlled - Continue current medications - ALBUMIN/CREAT RATIO RND UR 5. DAYANA (obstructive sleep apnea) - ICD9: 327.23, ICD10: G47.33 - on cpap 6. B12 deficiency - ICD9: 266.2, ICD10: E53.8 - VITAMIN B12 BLOOD 7. Type 2 diabetes mellitus with stage 3b chronic kidney disease, without long-term current use of insulin ([facility]) - ICD9: 250.40, 585.3, ICD10: E11.22, [...] Stefan Moore MD documented in this encounter [facility] 08-03-2022 Note [facility] 08-01-2022 Note [facility] 07-25-2022 Note [facility] 07-25-2022 History of Present illness Narrative Domingo Knutson MD Department of Orthopaedics Orthopaedics [address] [facility] [address] Dept: [phone] Dept July 25, 2022 CHIEF COMPLAINT: New and Pain of the Left Hand HPI Patient here today for left middle finger. She denies any pain. States she fell about 6 weeks ago and put her hand out to catch herself. She was seen at the [facility] and x-ray taken. She states all [...] DEGENERATIVE CHANGE, JOINT SPACE NARROWING AND OSTEOPHYTOSIS. Acetylene Operator: TERESA Transcribe Date/Time: Jun 10 2022 12:09P [...] 1 MILLILITER INTRAMUSCULARLY ONCE A MONTH Insulin Malaga, Disposable, (BD ULTRA-FINE HORTENCIA PEN NEEDLE) 32 [...] q 4 WEEKS Allergies: Iodine, Metformin, Simvastatin, Ofbkhan-Nmc-Zoo Reductase Inhibitors, and Vytorin 10-10 [Ezetimibe-Simvastatin] ROS: [...] physician via US mail. Chun Brewster [address] [facility] [address] Stefan Moore MD [address] [facility] [address] Domingo Knutson MD documented in this encounter [facility] 07-13-2022 Miscellaneous Notes Patient notified. Verbalized understanding. [...] Erica Colorado LPN documented in this encounter [facility] 07-13-2022 Note [facility] 07-13-2022 History of Present illness Narrative Manual [...] continued to be elevated at nurse visit 1/24/23. Was started on Amlodipine 2.5mg daily. Tolerating [...] Erica Colorado LPN documented in this encounter [facility] 07-01-2022 Note [facility] 07-01-2022 Note HNO ID: [id number] Author: Carly Landrum RN Service: ? Author Type: ? Type: Progress Notes Filed: 07/01/2022 3:06 PM Note Text: Patient presents with: Left Foot - Established Patient, Diabetic Foot Care Right Foot - Established Patient, Diabetic Foot Care [facility] 07-01-2022 History of Present illness Narrative Last [...] Patient presents to clinic ambulating in [facility] Vasc: DP and PT pulses are [...] Diabetic Foot Care documented in this encounter [facility] 07-01-2022 Instructions Dali Sepulveda - 07/01/2022 2:50 [...] (or decreased sensation in your feet) a hand chain maker should always cut your toenails. Be Careful [...] Go to your health care provider or hand chain maker to treat these conditions. documented in this encounter [facility] 06-29-2022 Miscellaneous Notes Spoke with patient. Explained [...] Erica Colorado LPN documented in this encounter [facility] 06-28-2022 Note [facility] 06-28-2022 History of Present illness Narrative Patient [...] Erica Colorado LPN documented in this encounter [facility] 06-10-2022 Miscellaneous Notes Called patient went over xray results. She will make her follow up appt now with ortho. Patient was okay with this. documented in this encounter [facility] 06-08-2022 History of Present illness Narrative [...] 8 hours as needed. ^Disp: ^Rfl: Insulin Malaga, Disposable, (BD ULTRA-FINE HORTENCIA PEN NEEDLE) 32 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 Prherye-Svw-Tfi Red* Other: See Comments myopathy Vytorin 10-10 [...] Chun Brewster MD documented in this encounter [facility] 06-08-2022 Miscellaneous Notes Arlene from [facility] is calling to report patient fell going up the steps last night. [facility] came to check her out everything was fine, but this am she is unable to bend her middle finger some swelling just does not know what hand. Nurse is going to have patient report to our [facility] care. documented in this encounter [facility] 06-07-2022 Miscellaneous Notes Letter set on provider's [...] Chacha Smith RN documented in this encounter [facility] 05-24-2022 Miscellaneous Notes Addended by: STEFAN MOORE on: 05/24/2022 01:19 PM Modules accepted: Orders documented in this encounter [facility] 05-24-2022 History of Present illness Narrative Patient [...] BP at home. Has home nurse from [facility] who comes weekly and checks it. Has [...] mouth every 8 hours as needed. Insulin Malaga, Disposable, (BD ULTRA-FINE HORTENCIA PEN NEEDLE) 32 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 Gyfvzpg-Aws-Cek Red* Other: See Comments myopathy Vytorin 10-10 [...] LAPAROSCOPIC CHOLECYSTECTOMY 01/08/2018 PAST SURGICAL HISTORY OF 1966 right breast cyst benign PAST SURGICAL HISTORY [...] in one month documented in this encounter [facility] 05-03-2022 History of Present illness Narrative Patient presents for B-12 injection. Denies any problems at this time. Patient instructed on any SE of medication, verbalized understanding and agreed to proceed with treatment. Tolerated injection well. Erica Colorado LPN documented in this encounter [facility] 05-02-2022 History of Present illness Narrative PATIENT NAME: Coni Romero. CLINIC NO: [id number]. ATTENDING PHYSICIAN: Yadira Chaudhry MD. DATE OF [...] and she was admitted to [facility] in July. She underwent both an upper and lower endoscopy which did not reveal any obvious bleeding source. She subsequently was sent to [place] where she had a capsule endoscopy which [...] Lymph 1.00 - 4.00 k/uL 0.93 (L) Burt% % 7.0 Abs Burt <0.87 k/uL 0.35 Eosin% % 4.2 Abs [...] Dr. Stefan Moore documented in this encounter [facility] 04-08-2022 Miscellaneous Notes Patient is scheduled for [...] would proceed with current medications. Pharmacist from [facility] calls and states that patient is on amiodarone which has a reaction with both Levaquin and fluconazole. These medications taken together and cause a prolong QT interval and can cause an arrhyhtmia. Please review and advise, Chacha Smith RN documented in this encounter [facility] 04-07-2022 Instructions Mason King PA-C - 04/07/2022 [...] in 10 days. 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 2 Diabetes Mellitus With Stage 3b Chronic Kidney Disease, Without Long-Term Current Use of Insulin ([facility]) Hyperparathyroidism Due to Vitamin D Deficiency ([facility]) Secondary Hypertension Due to Renal Disease Hypothyroidism Cardiomyopathy, Nonischemic ([facility]) Dayana (Obstructive Sleep Apnea) Type 2 Diabetes Mellitus With Diabetic Peripheral Angiopathy Without Gangrene, Without Long-Term Current Use of Insulin ([facility]) Anemia Due to Stage 3a Chronic Kidney Disease ([facility]) Iron Deficiency Anemia Anemia Due to Stage 3b Chronic Kidney Disease ([facility]) Anemia Due to Blood Loss Current Outpatient [...] mouth every 8 hours as needed. Insulin Malaga, Disposable, (BD ULTRA-FINE HORTENCIA PEN NEEDLE) 32 [...] Mason King PA-C documented in this encounter [facility] 04-06-2022 Miscellaneous Notes nurse calling on behalf of patient stating patient has persistent cough and possible oral thrush. Scheduled appointment for patient tomorrow AM. Karissa Harden, RN documented in this encounter [facility] 04-01-2022 Miscellaneous Notes See other mychart. Pt [...] results of xray documented in this encounter [facility] 03-29-2022 Miscellaneous Notes Arlene with [facility] called for last office visit to be faxed to [phone]. Pt was identified by name and date of . Done. Brittany Colby LPN documented in this encounter [facility] 03-29-2022 Miscellaneous Notes Changed to TE documented in this encounter [facility] 03-29-2022 Miscellaneous Notes Patient has been identified [...] Darling Guo RN documented in this encounter [facility] 03-28-2022 Instructions M Tyree King PA-C - 03/28/2022 4:18 PM EDT Acute Bronchitis What is acute bronchitis? Acute bronchitis is an infection of the bronchial (say: rzivg-kys-ucq ) tree. The bronchial tree is made [...] subject, talk to your family doctor. Copyright [id number] [employer] Permission is granted [...] its stimulant effects. documented in this encounter [facility] 03-28-2022 History of Present illness Narrative 81 [...] blood or mucus. Patient took Imodium AD dseg-yhy-qgivymc twice which seemed to slow it down. Today she has had approximately 3 smaller watery diarrhea stools. No vomiting. Presents home COVID testing x2 which were negative. Also identifies that she took DayQuil and Coricidin which did not seem to help. Last night she got concerned because she did not have the strength to stand called [facility], 03/27/2022 presented to [facility] with, chills, body aches since yesterday as [...] mouth every 8 hours as needed. Insulin Malaga, Disposable, (BD ULTRA-FINE HORTENCIA PEN NEEDLE) 32 [...] Mason King PA-C documented in this encounter [facility] 03-24-2022 History of Present illness Narrative Patient presents for B-12 injection. Denies any problems at this time. Patient instructed on any SE of medication, verbalized understanding and agreed to proceed with treatment. Tolerated injection well. Erica Colorado LPN documented in this encounter [facility] 03-23-2022 History of Present illness Narrative Last [...] healing. Completed doxy. documented in this encounter [facility] 03-23-2022 Instructions Dali Sepulveda - 03/23/2022 8:23 [...] (or decreased sensation in your feet) a hand chain maker should always cut your toenails. Be Careful [...] Go to your health care provider or hand chain maker to treat these conditions. documented in this encounter [facility] 03-22-2022 Miscellaneous Notes Patient MyChart message requesting the following refill. Requested Prescriptions Pending Prescriptions Disp Refills gabapentin (NEURONTIN) 300 mg capsule 270 capsule 1 Sig: Take 1 capsule by mouth three times daily for 180 days. Patient last appointment: 02/14/2022 Patient Phone numbers: [phone] (home) Request is for script(s) to be escript to mail order [facility]. Chelle Watts documented in this encounter [facility] 03-07-2022 Miscellaneous Notes Brody Bermudez-a nurse with [facility] calling to state patient has been referred to them by Dr. Cortez in Cardiology. Brody asking for patient's recent OV note be faxed to [phone]. Contacted patient to verify consent, and verbal consent given. Information faxed as requested. Patricia Salazar RN documented in this encounter [facility] 03-03-2022 Miscellaneous Notes Patient has been identified [...] Lupe Vyas LPN documented in this encounter [facility] 03-01-2022 Miscellaneous Notes Lab appointment changed as directed below. Chrissy Horowitz Can you change lab appt. From 04/04/22 to 03/11/22 so orders will be in system when pt. Comes in on . Pt. Is aware. Nadiya Patterson LPN documented in this encounter [facility] 02-14-2022 History of Present illness Narrative Patient [...] mouth every 8 hours as needed. Insulin Malaga, Disposable, (BD ULTRA-FINE HORTENCIA PEN NEEDLE) 32 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 Omyspba-Vsd-Ejs Red* Other: See Comments myopathy Vytorin 10-10 [...] LAPAROSCOPIC CHOLECYSTECTOMY 01/08/2018 PAST SURGICAL HISTORY OF 1966 right breast cyst benign PAST SURGICAL HISTORY [...] Stefan Moore MD documented in this encounter [facility] documented as of this encounter (statuses as of 02/14/2022) [facility] History of Past illness Narrative* Problem Noted [...] of this encounter (statuses as of 03/01/2022) [facility] Narrative* Problem Noted [...] of this encounter (statuses as of 03/03/2022) [facility] N[facility]ative* Problem Noted [...] of this encounter (statuses as of 03/03/2022) [facility] N[facility]ative* Problem Noted [...] of this encounter (statuses as of 03/07/2022) [facility]* Problem Noted [...] of this encounter (statuses as of 03/22/2022) [facility] Narrative* Problem Noted [...] of this encounter (statuses as of 03/24/2022) [facility]* Problem Noted [...] of this encounter (statuses as of 03/25/2022) [facility]* Problem Noted [...] of this encounter (statuses as of 03/28/2022) [facility]* Problem Noted [...] of this encounter (statuses as of 03/29/2022) [facility]* Problem Noted [...] of this encounter (statuses as of 03/29/2022) [facility]* Problem Noted [...] of this encounter (statuses as of 03/30/2022) [facility]* Problem Noted [...] of this encounter (statuses as of 04/01/2022) [facility]* Problem Noted [...] of this encounter (statuses as of 04/01/2022) [facility]* Problem Noted [...] of this encounter (statuses as of 04/06/2022) [facility]* Problem Noted [...] of this encounter (statuses as of 04/07/2022) [facility]* Problem Noted [...] of this encounter (statuses as of 04/08/2022) [facility]* Problem Noted [...] of this encounter (statuses as of 05/03/2022) [facility] Problem Noted [...] of this encounter (statuses as of 05/24/2022) [facility]* Problem Noted [...] of this encounter (statuses as of 06/09/2022) [facility]* Problem Noted [...] of this encounter (statuses as of 06/09/2022) [facility]* Problem Noted [...] of this encounter (statuses as of 06/11/2022) [facility]* Problem Noted [...] of this encounter (statuses as of 06/28/2022) [facility]* Problem Noted [...] of this encounter (statuses as of 06/29/2022) [facility]* Problem Noted [...] of this encounter (statuses as of 07/01/2022) [facility]* Problem Noted [...] of this encounter (statuses as of 07/13/2022) [facility]* Problem Noted [...] of this encounter (statuses as of 07/13/2022) [facility]* Problem Noted [...] 12/26/2016 03/20/2017 Anemia of renal disease 12/26/2016 10/16/20 17 Chronic anticoagulation 09/29/2016 08/02/19 22 Colon [...] of this encounter (statuses as of 07/25/2022) [facility]* Problem Noted [...] of this encounter (statuses as of 08/03/2022) [facility]* Problem Noted Date Resolved Date Cellulitis of left lower extremity 02/14/2022 02/14/2022 Anemia due to blood loss 08/02/2021 022 Anemia due to stage 3a chronic kidney disease 05/24/2022 Obesity, Class I, BMI 30-34.9 11/10/2017 02 [...] of this encounter (statuses as of 08/23/2022) [facility]* Problem Noted [...] of this encounter (statuses as of 09/05/2022) [facility]* Problem Noted [...] of this encounter (statuses as of 09/23/2022) [facility]* Problem Noted [...] of this encounter (statuses as of 09/23/2022) [facility]* Problem Noted [...] of this encounter (statuses as of 09/30/2022) [facility]* Problem Noted [...] of this encounter (statuses as of 10/06/2022) [facility]* Problem Noted [...] of this encounter (statuses as of 10/13/2022) [facility]* Problem Noted [...] of this encounter (statuses as of 10/15/2022) [facility]* Problem Noted [...] of this encounter (statuses as of 10/31/2022) [facility]* Problem Noted [...] of this encounter (statuses as of 11/08/2022) [facility]* Problem Noted [...] of this encounter (statuses as of 11/09/2022) [facility]* Problem Noted [...] of this encounter (statuses as of 11/17/2022) [facility]* Problem Noted Date Diagnosed Date Resolved Date Cellulitis of left lower extremity 02/14/2022 02/14/2022 Anemia due to blood loss 08/02/2021 Anemia due to stage 3a chronic kidney disease 10/30/19 21 05/24/2022 Obesity, Class I, BMI 30-34.9 11/10/2017 07/22/2020 Type 2 DM with CKD stage 4 and hypertension 12/26/2016 03/20/2017 Metabolic acidosis 12/26/2016 10/16/201 7 Secondary hyperparathyroidism of renal origin 12/27/19 [...] of this encounter (statuses as of 12/10/2022) [facility]* Problem Noted [...] of this encounter (statuses as of 12/13/2022) [facility]* Problem Noted [...] of this encounter (statuses as of 12/16/2022) [facility]* Problem Noted [...] of this encounter (statuses as of 12/19/2022) [facility]* Problem Noted [...] of this encounter (statuses as of 12/22/2022) [facility]* Problem Noted [...] of this encounter (statuses as of 01/03/2023) [facility]* Problem Noted [...] of this encounter (statuses as of 01/11/2023) [facility]* Problem Noted [...] of this encounter (statuses as of 01/13/2023) [facility]* Problem Noted [...] of this encounter (statuses as of 03/30/2023) [facility]* Problem Noted [...] of this encounter (statuses as of 04/05/2023) [facility]* Problem Noted [...] of this encounter (statuses as of 04/09/2023) [facility]* Problem Noted [...] of this encounter (statuses as of 04/09/2023) [facility]* Problem Noted [...] of this encounter (statuses as of 05/02/2023) [facility]* Problem Noted [...] of this encounter (statuses as of 05/12/2023) [facility]* Problem Noted [...] of this encounter (statuses as of 05/12/2023) [facility]* Problem Noted [...] of this encounter (statuses as of 05/12/2023) [facility]* Problem Noted [...] of this encounter (statuses as of 05/18/2023) [facility] Miscellaneous Notes* Telephone Encounter - Yusuf You LPN - 02/14/2022 8:41 AM EDT TC to pt, scheduled pt for appt later in the day. Yusuf You LPN [facility] Misc[facility] Notes* Telephone Encounter - Chelsea Cartwright [...] advise, Chacha Smith RN [facility] History of Present illness Narrative* Stefan Moore [...] mouth every 8 hours as needed. Insulin Malaga, Disposable, (BD ULTRA-FINE HORTENCIA PEN NEEDLE) 32 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 Cgbxojy-Fhq-Hyb Red* Other: See Comments myopathy Vytorin 10-10 [...] RTO in two weeks. [facility] History of Present illness Narrative* Erica Colorado LPN - 01/27/2022 1:31 PM EDT Patient presents for B-12 injection. Denies any problems at this time. Patient instructed on any SEof medication, verbalized understanding and agreed to proceed with treatment. Tolerated injection well. Erica Colorado LPN [facility] Misc[facility] Notes* Telephone Encounter - Darling Guo RN - 01/24/2022 4:09 PM EDT Pt called and is notified of providers results and instructions. Pt voices understanding. Darling Guo RN * Telephone Encounter - Flor Boyle APRN.CNP - 01/24/2022 3:34 PM EDT Can you [...] has any questions. Thank you. Flor Boyle APRN.OTIS [facility] History of Present illness Narrative* RT Scooter(R) [...] 24, 2022 2:04 PM [facility] Instructions* Patient Instructions* Flor Boyle APRN.CNP - 01/24/2022 11:56 AM EDT 1.) Get Repeat chest xray and xray of right ankle. 2.) Schedule appointment for ultrasound of leg. 3.) Follow up pending test results or sooner as needed. May use Lasix for the next 2 days to help with leg swelling Continue to elevate the leg. [facility] History of Present illness Narrative* Flor Boyle [...] <AGE 12 Tonsillectomy ALLERGIES Iodine, Metformin, Simvastatin, Dxcaeeo-Vte-Aaw Reductase Inhibitors, and Vytorin 10-10 [Ezetimibe-Simvastatin] MEDICATIONS [...] mouth every 8 hours as needed. Insulin Malaga, Disposable, (BD ULTRA-FINE HORTENCIA PEN NEEDLE) 32 gauge x 32 ndle Use one needle for each dose. [...] APRN.CNP This note was partially generated using [employer]Hop voice recognition system. Note was reviewed for accuracy. There may be minor misspellings or grammar miscues with [employer] voice recognition. [facility] Miscellaneous Notes* Telephone Encounter - Chelsea Cartwright LPN - 01/24/2022 9:16 AM EDT Patient scheduled. [facility] Instructions* Patient Instructions* Ana Bell APRN.CNP - 01/14/2022 12:55 PM EDT - RICE therapy - see patient instructions for further recommendations. - F/U with PCP in 5-7 days or before if worse. - Discussed Red Flag signs and when to go to ER. - Reviewed plan of care and DC papers with patient. Verbalized understanding. [facility] History of Present illness Narrative* Ana Bell APRN.PICK REMOVER - 01/14/2022 12:16 PM EDT Images from [...] history is provided by the patient. No english language arts teacher was used. Review of Systems Constitutional: Negative. [...] <AGE 12 Tonsillectomy ALLERGIES Iodine, Metformin, Simvastatin, Mjlnuhe-Jno-Qnb Reductase Inhibitors, and Vytorin 10-10 [Ezetimibe-Simvastatin] MEDICATIONS [...] 8 hours as needed. ^Disp: ^Rfl: Insulin Malaga, Disposable, (BD ULTRA-FINE HORTENCIA PEN NEEDLE) 32 gauge x 532 ndle^Use one needle for each dose. 3x/day. [...] No radiographic evidence of acute osseous injury. Acetylene Operator: TERESA Transcribe Date/Time: Jan 14 2022 12:45P Dictated by : DEE DENG MD Rest and ice and elevate foot for comfort. Give it a week or two and if it does not seem to be getting better then follow up with ortho for further evaluation. Order was placed in case it is needed. Ana Bell APRN.PICK REMOVER [facility] Miscellaneous Notes* Telephone Encounter - Chelle Watts - 01/04/2022 12:52 PM EDT Patient informed and verbalized understanding. No questions at this time. Chelle Watts * Telephone Encounter - Stefan Moore MD - 01/04/2022 12:46 PM EDT Her gfr is a little lower. Push fluids a little more and recheck bmp in two weeks [facility] History of Present illness Narrative* Stfean Moore MD - 12/31/2021 9:41 AM EDT [...] 2 days and skipping a dose per crisis intervention specialist. ) dulaglutide (TRULICITY) 1.5 mg/0.5 mL pen [...] mouth every 8 hours as needed. Insulin Malaga, Disposable, (BD ULTRA-FINE HORTENCIA PEN NEEDLE) 32 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 Hgufrkn-Hgt-Nqo Red* Other: See Comments myopathy Vytorin 10-10 [...] METABOLIC PNL Stefan Moore [facility] History of Present illness Narrative* Erica Colorado LPN - 12/30/2021 12:56 PM EDT Patient presents for B-12 injection. Denies any problems at this time. Patient instructed on any SEof medication, verbalized understanding and agreed to proceed with treatment. Tolerated injection well. Erica Colorado LPN [facility] Instructions* Patient Instructions* Mason King PA-C - 12/23/2021 10:13 AM EDT Complete antibiotic. Push fluids, rest. Can alter lasix according the parameters: Monitor daily weight If weight > 3lbs increase + with shortness of breath or increase leg swelling take lasix 20mg [facility] History of Present illness Narrative* Mason King [...] or diarrhea? No Additional history follows with [facility]. Component Latest Ref Rng & Units [...] diabetes mellitus 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 neuropathy, unspecified whether jail insulin use (hcc) Type 2 diabetes mellitus [...] 1.00 - 4.00 k/uL 0.91 (L) 1.19 Burt% % 6.9 5.4 Abs Burt <0.87 k/uL 0.33 0.48 Eosin% % 3.5 [...] PROBLEM LIST Esophageal Reflux Paroxysmal Atrial Fibrillation ([facility]) Anxiety State Osteoarthritis Dermatophytosis of Nail Type 2 Diabetes Mellitus With Diabetic Polyneuropathy, Without Long-Term Current Use of Insulin ([facility]) Osteopenia Thoracic Or Lumbosacral Neuritis Or Radiculitis, Unspecified Abnormality of Gait Statin Myopathy Pvd (Peripheral Vascular Disease) ([facility]) Gout With Manifestations B12 Deficiency Pure Hypercholesterolemia 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 2 Diabetes Mellitus With Stage 3b Chronic Kidney Disease, Without Long-Term Current Use of Insulin ([facility]) Hyperparathyroidism Due to Vitamin D Deficiency ([facility]) Secondary Hypertension Due to Renal Disease Hypothyroidism Cardiomyopathy, Nonischemic ([facility]) Dayana (Obstructive Sleep Apnea) Type 2 Diabetes Mellitus With Diabetic Peripheral Angiopathy Without Gangrene, Without Long-Term Current Use of Insulin ([facility]) Anemia Due to Stage 3a Chronic Kidney Disease ([facility]) Iron Deficiency Anemia Anemia Due to Stage 3b Chronic Kidney Disease ([facility]) Anemia Due to Blood Loss Current Outpatient [...] 2 days and skipping a dose per crisis intervention specialist. ) 90 tablet 3 dulaglutide (TRULICITY) 1.5 [...] mouth every 8 hours as needed. Insulin Malaga, Disposable, (BD ULTRA-FINE HORTENCIA PEN NEEDLE) 32 [...] Aerobic exercisie to tolerance. 3. Cardiomyopathy, nonischemic ([facility]) - ICD9: 425.4, ICD10: I42.8 4. Paroxysmal atrial fibrillation ([facility]) - ICD9: 427.31, ICD10: I48.0 Stable, follows with [facility] lasix prn orders: see d/c instructions. To review with caridology.. 5. 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 PVD (peripheral vascular disease) ([facility]) - ICD9: 443.9, ICD10: I73.9 No current sx 7. DAYANA (obstructive sleep apnea) - ICD9: 327.23, ICD10: G47.33 compliant with CPAP 8. Hyperparathyroidism due to vitamin D deficiency ([facility]) - ICD9: 252.02, ICD10: E21.1 resolved 9. Type 2 diabetes mellitus 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 neuropathy, unspecified whether jail insulin use ([facility]) - ICD9: 250.60, 357.2, ICD10: E11.40 Controlled. - Continue current medications - Ophthalmology referral for eval/management of diabetic eye changes: has appt - Encouraged regular aerobic exercise and weight loss 10. Type 2 diabetes mellitus with stage 3b chronic kidney disease, without long- term current use ofinsulin ([facility]) - ICD9: 250.40, 585.3, ICD10: E11.22, [...] worsening. Mason King PA-C [facility] Miscellaneous Notes* Telephone Encounter - Monika Colby [...] scheduled. Dao Vieyra APRN.CNP [facility] Miscellaneous Notes* Telephone Encounter - Stefan Moore [...] since. Patient reports she forgot she has [employer] cough medicine and will take some of that to help her cough. 1. ONSET: 12/14/21Monday 2. SEVERITY: coughing mainly during day-moderate 3. SPUTUM:none 4. HEMOPTYSIS: No 5. DIFFICULTY BREATHING: No 6. FEVER: No 7. CARDIAC HISTORY: yes, a-fib 8. LUNG HISTORY: no 9. PE RISK FACTORS:no 10. OTHER SYMPTOMS: Denies SOB, wheezing or chest pain 12. TRAVEL:no Protocols used: COUGH - ACUTE [id number] [facility] Miscellaneous Notes* Telephone Encounter - Flavia Tran [...] to pharmacy. Flavia Tran [facility] Miscellaneous Notes* Telephone Encounter - Darling Guo [...] you. Darling Guo RN [facility] History of Present illness Narrative* Dali Sepulveda [...] Patient, Diabetic Foot Care documented [facility] encounter[facility] Instructions* Patient Instructions* Dali Sepulveda - 12/03/2021 [...] (or decreased sensation in your feet) a hand chain maker should always cut your toenails. Be Careful [...] Go to your health care provider or hand chain maker to treat these conditions. [facility] History of Present illness Narrative* Erica Colorado LPN - 12/02/2021 1:31 PM EDT Patient presents for B-12 injection. Denies any problems at this time. Patient instructed on any SEof medication, verbalized understanding and agreed to proceed with treatment. Tolerated injection well. Erica Colorado LPN [facility] History of Present illness Narrative* Erica Colorado LPN - 11/05/2021 10:03 AM EDT Patient presents for B-12 injection. Denies any problems at this time. Patient instructed on any SEof medication, verbalized understanding and agreed to proceed with treatment. Tolerated injection well. Erica Colorado LPN [facility] History of Present illness Narrative* Stefan Moore [...] 2 days and skipping a dose per crisis intervention specialist. ) dulaglutide (TRULICITY) 1.5 mg/0.5 mL pen [...] mouth every 8 hours as needed. Insulin Malaga, Disposable, (BD ULTRA-FINE HORTENCIA PEN NEEDLE) 32 gauge x 32 ndle Use one needle for each dose. 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 Ytvrajj-Jyn-Mhe Red* Other: See Comments myopathy Vytorin 10-10 [...] re-assessment reviewed with patient in detail. - tesshruiton prn. Call with update on Monday Stefan Moore I spent 10 minutes in the visit, with more than 50% of the total kiii-hj-mwtt time of the visit in counseling / coordination of care. [facility] Miscellaneous Notes* Telephone Encounter - Chelsea Cartwright [...] her pharmacy. Please advise documented in [facility] encounter[facility] Miscellaneous Notes* Telephone Encounter - ÓSCAR Stark [...] Yes, No ÓSCAR Stark documented in [facility] Miscellaneous Notes* Telephone Encounter - Xochilt Watson Pss - 10/21/2021 12:58 PM EDT Patient called to speak with Flor regarding a shawl that she brought in last week. Please call when able. [facility] Miscellaneous Notes* Telephone Encounter - Yusuf You LPN - 10/09/2021 9:24 AM EDT Patient phones requesting refills as follows: Pending Prescriptions Disp Refills CARVEDILOL 25 MG TABLET 360 tablet 0 Sig: Take 1 tablet by mouth twice daily. KP: No RUSSEL 08/02/21 NOV 01/31/22 Please review and advise. Yusuf You LPN [facility] Instructions* Patient Instructions* Yadira Chaudhry MD - 10/04/2021 4:33 PM EDT Stay on iron twice daily and vitamin B12 injection documented in this [facility]05-02-2022 History of Present illness Narrative* Yadira Chaudhry MD - 10/04/2021 4:27 PM EDT PATIENT NAME: Coni Romero. CLINIC NO: [id number]. ATTENDING PHYSICIAN: Yadira Chaudhry MD. DATE OF [...] and she was admitted to [facility] in July. She underwent both an upper and lower endoscopy which did not reveal any obvious bleeding source. She subsequently was sent to [place] where she had a capsule endoscopy which [...] Lymph 1.00 - 4.00 k/uL 0.91 (L) Burt% % 6.9 Abs Burt <0.87 k/uL 0.33 Eosin% % 3.5 Abs [...] Cc: Dr. Stefan Moore [facility] Miscellaneous Notes* Telephone Encounter - Suad Cheung [...] MA. * Telephone Encounter - Sheree Johnson [facility] - 10/02/2021 8:24 AM EDT [...] advise. Sheree Johnson Pss documented [facility] History of Present illness Narrative* Erica [place] LPN - 10/01/2021 9:59 AM EDT Patient presents for B-12 injection. Denies any problems at this time. Patient instructed on any SEof medication, verbalized understanding and agreed to proceed with treatment. Tolerated injection well. Erica [place] LPN [facility] History of Present illness Narrative* Dali Sepulveda [...] Established Patient, Nail Care documented in [facility] Instructions* Patient Instructions* Dali Sepulveda - 09/01/2021 [...] (or decreased sensation in your feet) a hand chain maker should always cut your toenails. Be Careful [...] Go to your health care provider or hand chain maker to treat these conditions. [facility] History of Present illness Narrative* Erica [place] LPN - 08/30/2021 9:07 AM EDT Patient presents for B-12 injection. Denies any problems at this time. Patient instructed on any SEof medication, verbalized understanding and agreed to proceed with treatment. Tolerated injection well. Erica [place] LPN documented in this [facility]The [facility] Miscellaneous Notes* Telephone Encounter - Ebony Manzano [...] pharmacy. No need to notify patient. Ebony [place] Pss documented in [facility] History of Past illness Narrative* Problem Noted [...] of this encounter (statuses as of 08/30/2021) [facility] Narrative* Problem Noted [...] of this encounter (statuses as of 09/01/2021) [facility] Narrative* Problem Noted [...] of this encounter (statuses as of 09/18/2021) [facility] Narrative* Problem Noted [...] of this encounter (statuses as of 09/24/2021) [facility] Narrative* Problem Noted [...] of this encounter (statuses as of 10/01/2021) [facility] Narrative* Problem Noted [...] of this encounter (statuses as of 10/04/2021) [facility] NoteHNO ID: [id number] Author: Esteban Mao MD Service: ? Author [...] and pill endoscopy. She has seen a assembly room supervisor and has an appointment to follow-up [...] 05/2014 left - COLONOSCOP W/ OR W/O [facility] SPEC 04/14/2005 Colonoscopy - COLONOSCOP W/ OR W/O [facility] SPEC 01/21/2016 Colonoscopy - COLONOSCOPY GEN ANES 07/31/2020 External/internal hemorrhoids - EGD 07/31/2020 Mild Gastritis - EGD W/O [facility] SPECIMEN W/BX 06/25/2007 - LAPAROSCOPIC [...] - Simvastatin Contraindication-Medical Surgical statin myopathy - Ziytvzm-Wxt-Tse Red* Other: See Comments myopathy - Vytorin [...] per week. Discard Pen After - Insulin [place], Disposable, (BD ULTRA-FINE HORTENCIA PEN NEEDLE) 32 [...] glucose 2x/daily, 250.02, i (more content not included)...[facility]06-08-[facility] History of Past illness Narrative* [...] of this encounter (statuses as of 10/05/2021) [facility] Narrative* Problem [...] of this encounter (statuses as of 10/09/2021) [facility] Narrative* Problem [...] of this encounter (statuses as of 10/21/2021) [facility] Narrative* Problem [...] of this encounter (statuses as of 10/26/2021) [facility] Narrative* Problem [...] of this encounter (statuses as of 10/28/2021) [facility] Narrative* Problem [...] of this encounter (statuses as of 10/29/2021) [facility] Narrative* Problem [...] of this encounter (statuses as of 11/05/2021) [facility] N[facility]ative* Problem [...] of this encounter (statuses as of 12/02/2021) [facility] Narrative* Problem [...] of this encounter (statuses as of 12/03/2021) [facility] Narrative* Problem [...] of this encounter (statuses as of 12/09/2021) [facility]* Problem [...] of this encounter (statuses as of 12/16/2021) [facility]* Problem [...] of this encounter (statuses as of 12/16/2021) [facility]* Problem [...] of this encounter (statuses as of 12/21/2021) [facility]* Problem [...] of this encounter (statuses as of 12/23/2021) [facility]ative* Problem [...] of this encounter (statuses as of 12/30/2021) [facility]* Problem [...] of this encounter (statuses as of 12/31/2021) [facility]* Problem [...] of this encounter (statuses as of 01/04/2022) [facility]* Problem [...] of this encounter (statuses as of 01/13/2022) [facility]* Problem [...] of this encounter (statuses as of 01/14/2022) [facility]* Problem [...] of this encounter (statuses as of 01/24/2022) [facility]* Problem [...] of this encounter (statuses as of 01/24/2022) [facility]* Problem [...] of this encounter (statuses as of 01/24/2022) [facility]* Problem [...] of this encounter (statuses as of 01/25/2022) [facility]* Problem [...] of this encounter (statuses as of 01/27/2022) [facility]* Problem [...] of this encounter (statuses as of 01/31/2022) [facility]* Problem [...] of this encounter (statuses as of 02/10/2022) [facility] N[facility]ative* Problem [...] of this encounter (statuses as of 02/14/2022) [facility] Future App[facility] Evaluation note* Diagnosis B12 deficiency- Primary Other B-complex deficiencies [facility] Diagnosis Onychomycosis- Primary Dermatophytosis of nail Pain in toe of right foot Pain in limb Pain in toe of left foot Pain in limb Diabetic polyneuropathy associated with type 2 diabetes mellitus (HCC) [facility] this [facility]* Diagnosis Type 2 diabetes mellitus 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 neuropathy, unspecified whether jail insulin use (HCC) [facility]* Diagnosis Anemia due to stage 3b chronic kidney disease (HCC)- Primary Iron deficiency anemia, unspecified iron deficiency anemia type [facility] Diagnosis B12 deficiency- Primary Other B-complex deficiencies [facility] Diagnosis Anemia due to stage 3b chronic kidney disease (HCC)- Primary B12 deficiency Other B-complex deficiencies [facility]* Diagnosis Secondary hypertension due to renal disease Other secondary hypertension, unspecified [facility]* Diagnosis COVID-19- Primary [facility]* Diagnosis B12 deficiency- Primary Other B-complex deficiencies [facility]* Diagnosis B12 deficiency- Primary Other B-complex deficiencies [facility]* Diagnosis Onychomycosis- Primary Dermatophytosis of nail Pain in toe of right foot Pain in limb Pain in toe of left foot Pain in limb Diabetic polyneuropathy associated with type 2 diabetes mellitus (HCC) Hammer toes of both feet [facility]* Diagnosis Diabetes mellitus due to underlying condition 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 neuropathy, with long-term current use of insulin ([facility]) [facility]* Diagnosis Iron deficiency anemia, unspecified iron deficiency anemia type- Primary Secondary hypertension due to renal disease Other secondary hypertension, unspecified Cardiomyopathy, nonischemic (HCC) Other primary cardiomyopathies Paroxysmal atrial fibrillation (HCC) Atrial fibrillation Statin myopathy Toxic myopathy PVD (peripheral vascular disease) (HCC) Peripheral vascular disease, unspecified DAY[place] (obstructive sleep apnea) Obstructive sleep apnea (adult) (pediatric) Hyperparathyroidism due to vitamin D deficiency ([facility]) Secondary hyperparathyroidism, non-renal Type 2 diabetes mellitus 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 neuropathy, unspecified whether jail insulin use (HCC) Type 2 diabetes mellitus with stage 3b chronic kidney disease, without long-term current use of insulin ([facility]) Other specified hypothyroidism Stress reaction Unspecified acute reaction to stress Anxiety state Anxiety state, unspecified B12 deficiency Other B-complex deficiencies Anemia due to stage 3b chronic kidney disease (HCC) Bronchitis Bronchitis, not specified as acute or chronic [facility]* Diagnosis B12 deficiency- Primary Other B-complex deficiencies [facility]* Diagnosis Bacterial pneumonia- Primary Bacterial pneumonia, unspecified Type 2 diabetes mellitus 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 polyneuropathy, without long-term current use of insulin (HCC) Cardiomyopathy, nonischemic (HCC) Other primary cardiomyopathies Congestive heart failure, unspecified HF chronicity, unspecified heart failure type ([facility]) [facility]* Diagnosis Renal insufficiency- Primary Unspecified disorder of kidney and ureter [facility]* Diagnosis Fall, initial encounter- Primary [facility]* Diagnosis Acute right ankle pain- Primary Leg swelling Swelling of limb [facility]* Diagnosis Leg swelling Swelling of limb [facility]* Diagnosis B12 deficiency- Primary Other B-complex deficiencies [facility]* Diagnosis Type 2 diabetes mellitus with [...] leg, except foot [facility]* Diagnosis Type 2 diabetes mellitus 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 polyneuropathy, without long-term current use of insulin (HCC)- Primary Pure hypercholesterolemia documented [facility]* Diagnosis Type 2 diabetes mellitus with stage 3b chronic kidney disease, without long-term current use of insulin (HCC)- Primary Cellulitis of left lower extremity Cellulitis and abscess of leg, except foot documented [facility]* Diagnosis Type 2 diabetes mellitus 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 polyneuropathy, without long-term current use of insulin ([facility]) [facility]* Diagnosis Diabetes mellitus due to underlying condition 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 neuropathy, with long-term current use of insulin ([facility]) [facility]* Diagnosis Febrile illness, acute- Primary Fever, unspecified Bronchitis Bronchitis, not specified as acute or chronic documented in this encounter [facility] note* Diagnosis Anemia due to stage 3a chronic kidney disease (HCC) [facility]* Diagnosis Pneumonia of right lower lobe due to infectious organism- Primary Thrush (oral) Herpes labialis Herpes 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 [facility]* Diagnosis Anemia due to stage 3b chronic kidney disease (HCC)- Primary [facility]* Diagnosis Bacterial pneumonia- Primary Bacterial pneumonia, [...] Anxiety state, unspecified [facility]* Diagnosis Finger pain, left- Primary Pain in limb [facility]* Diagnosis B12 deficiency- Primary Other B-complex deficiencies Secondary hypertension due to renal disease Other secondary hypertension, unspecified [facility]* Diagnosis Onychomycosis- Primary Dermatophytosis of nail Pain in toe of right foot Pain in limb Pain in toe of left foot Pain in limb Diabetic polyneuropathy associated with type 2 diabetes mellitus (HCC) Hammer toes of both feet [facility]* Diagnosis Secondary hypertension due to renal disease- Primary Other secondary hypertension, unspecified [facility]* Diagnosis Finger pain, left Pain in limb [facility]* Diagnosis Type 2 diabetes mellitus [...] Anemia, unspecified type [facility]* Diagnosis B12 deficiency- Primary Other B-complex deficiencies [facility]* Diagnosis Type 2 diabetes mellitus 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 neuropathy, unspecified whether jail insulin use (HCC) [facility]* Diagnosis Onychomycosis- Primary Dermatophytosis of nail Pain in toe of right foot Pain in limb Pain in toe of left foot Pain in limb Diabetic polyneuropathy associated with type 2 diabetes mellitus (HCC) [facility]* Diagnosis Anemia, unspecified type- Primary Bronchitis Bronchitis, not specified as acute or chronic documented [facility]* Diagnosis Anemia, unspecified type- Primary documented in [facility]* Diagnosis B12 deficiency- Primary Other B-complex deficiencies documented [facility]* Diagnosis Type 2 diabetes mellitus with [...] therapeutic drug monitoring documented in this encounter [facility] note* Diagnosis B12 deficiency- Primary Other B-complex deficiencies documented [facility]* Diagnosis Low serum albumin- Primary documented [facility]* Diagnosis Secondary hypertension due to renal disease Other secondary hypertension, unspecified [facility]* Diagnosis Dietary counseling- Primary Dietary surveillance and counseling Low serum albumin Obesity, Class I, BMI 30-34.9 Obesity, unspecified documented in this encounter [facility] note* Diagnosis Anemia, unspecified type Iron deficiency anemia, unspecified iron deficiency anemia type documented [facility]* Diagnosis B12 deficiency- Primary Other B-complex deficiencies documented in this encounter [facility] note* Diagnosis Closed nondisplaced transverse fracture of [...] of cerebral infarction documented [facility]* Diagnosis Febrile illness, acute Fever, unspecified Bronchitis Bronchitis, not specified as acute or chronic documented in this [facility]* Diagnosis Contusion of right great toe without damage to nail, initial encounter documented in this encounter [facility] note* Diagnosis Anemia, unspecified type- Primary documented in this encounter [facility] note* Diagnosis Anemia due to stage 3b chronic kidney disease (HCC)- Primary documented in this encounter [facility] note* Diagnosis Onychomycosis- Primary Dermatophytosis of nail Pain in toe of right foot Pain in limb Pain in toe of left foot Pain in limb Diabetic polyneuropathy associated with type 2 diabetes mellitus (HCC) [facility] N[facility] No data available for this section [facility] Discharge instructions No data available for this section [facility] Progress note No data available for this section [facility] Reason for referral (narrative)* Diagnostic Procedure Only (Urgent) - Closed Specialty Diagnoses / Procedures Referred By Contac t Referred To Contact US IMAGING Diagnoses Leg swelling Procedures US DVT LOWER RT DUP-SCAN XTR VEINS UNILATERAL/LIMITED STUDY Flor Boyle, P[employer] [address] [place] [address] Us Imaging Referral ID Status Reason Start Date Expiration Date V isits Requested Visits Authorized [id number] Closed Auto-Generate d Referral 01/24/2022 02/23/2023 1 1 * Diagnostic Procedure Only (Urgent) - Closed Specialty Diagnoses / Procedures Referred By Contac t Referred To Contact XR IMAGING Diagnoses Acute right ankle pain Procedures XR ANKLE GENERAL 3V AP/LAT/OBL RIGHT RADEX ANKLE COMPLETE MINIMUM 3 VIEWS Flor Boyle APRN.[employer] [address] [place] [address] Xr Imaging Referral ID Status Reason Start Date Expiration Date V isits Requested Visits Authorized [id number] Closed Auto-Generate d Referral 01/24/2022 02/23/2023 1 1 [facility] for referral (narrative)* Diagnostic Procedure Only (Urgent) - Closed Specialty Diagnoses / Procedures Referred By Contac t Referred To Contact US IMAGING Diagnoses Leg swelling Procedures US DVT LOWER RT DUP-SCAN XTR VEINS UNILATERAL/LIMITED STUDY Flor Boyle APRN.[employer] [address] [place] [address] Us Imaging Referral ID Status Reason Start Date Expiration Date V isits Requested Visits Authorized [id number] Closed Auto-Generate d Referral 01/24/2022 02/23/2023 1 1 [facility] for referral (narrative)* Diagnostic Procedure Only (Urgent) - Closed Specialty Diagnoses / Procedures Referred By Contac t Referred To Contact XR IMAGING Diagnoses Contusion of right great toe without damage to nail, initial encounter Procedures XR TOE AP/LAT/OBL RIGHT RADEX TOE MINIMUM 2 VIEWS Dali Sepulveda [address] [place] [address] [id number] [id number] Referral ID Status Reason Start Date Expiration Date V isits Requested Visits Authorized [id number] Closed Auto-Generate d Referral 01/20/2023 02/19/2024 1 1 [facility] for visit Narrative* Diagnostic Procedure Only (Urgent) - Closed Specialty Diagnoses / Procedures Referred By Contac t Referred To Contact XR IMAGING Diagnoses Contusion of right great toe without damage to nail, initial encounter Procedures XR TOE AP/LAT/OBL RIGHT RADEX TOE MINIMUM 2 VIEWS Testrake, Dali [address] [place] [address] [place] [id number] Referral ID Status Reason Start Date Expiration Date V isits Requested Visits Authorized [id number] Closed Auto-Generate d Referral 01/20/2023 02/19/2024 1 1 [facility] Summary Purpose Family History No Family History Records FoundNo Family History Records FoundNo Family History Records Found No data available for this section No Family History Records FoundNo Family History Records Found Advance Directives No Advanced Directives Records FoundDocuments on File Type Date Recorded 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 Advance Directive(s) 01/21/2016 7:59 AM Advance Directive(s) 03/30/2015 11:25 AM Documents on File Type Date Recorded 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 Advance Directive(s) 03/30/2015 11:25 AM Documents on File Type Date Recorded 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 Advance Directive(s) 03/30/2015 11:25 AM [...] initial encounter Procedures CONSULT TO ORTHOPAEDICS OFFICE/OUTPATIENT [facility] 60-74 MINUTES Ana Bell APRN.[employer] [address] [place] [address] Referral ID Status Reason Start Date Expiration Date Visits Requested Visits Authorized [id number] Pending Review PCP Requested Referral 01/14/2022 01/14/2023 1 1 Specialty Diagnoses / Procedures Referred By Contac t Referred To Contact XR IMAGING Diagnoses Fall, initial encounter Procedures XR ANKLE GENERAL 3V AP/LAT/OBL RIGHT RADEX ANKLE COMPLETE MINIMUM 3 VIEWS Ana Bell APRN.[employer] [address] [place] [address] Xr Imaging Referral ID Status Reason Start Date Expiration Date V isits Requested Visits Authorized [id number] Closed Auto-Generate d Referral 01/14/2022 02/13/2023 1 1 Specialty Diagnoses / Procedures Referred By Contac t Referred To Contact XR IMAGING Diagnoses Fall, initial encounter Procedures XR FOOT GENERAL 3V AP/LAT/OBL RIGHT RADEX FOOT COMPLETE MINIMUM 3 VIEWS Ana Bell APRN.[employer] [address] [place] [address] Xr Imaging Referral ID Status Reason Start Date Expiration Date V isits Requested Visits Authorized [id number] Closed Auto-Generate d Referral 01/14/2022 02/13/2023 1 1 Specialty Diagnoses / Procedures Referred By Contac t Referred To Contact Orthopedics Diagnoses Finger pain, left Procedures CONSULT TO ORTHOPAEDICS OFFICE/OUTPATIENT [facility] 60-74 MINUTES Chun Brewster MD [address] [place] [address] Referral ID Status Reason Start Date Expiration Date Visits Requested Visits Authorized [id number] Pending Review PCP Requested Referral 06/08/2022 06/08/2023 1 1 Specialty Diagnoses / Procedures Referred By Contac t Referred To Contact XR IMAGING Diagnoses Finger pain, left Procedures XR DIGIT GENERAL 3V FRONTAL/LAT/OBL LEFT RADEX FINGR [place]IMUM 2 [place] [address] [place] [id number] Xr Imaging Referral ID Status Reason Start Date Expiration Date V isits Requested Visits Authorized [id number] Closed Auto-Generate d Referral 06/08/2022 07/08/2023 1 1 Specialty Diagnoses / Procedures Referred By Contac t Referred To Contact Diagnoses Anemia, unspecified type Procedures CONSULT TO HEMATOLOGY/ONCOLOGY OFFICE/OUTPATIENT [facility] 60-74 MINUTES Monae Bowser APRN.CNP [address] [place] [address] Referral ID Status Reason Start Date Expiration Date Visits Requested Visits Authorized [id number] Pending Review PCP Requested Referral 11/08/2022 11/08/2023 1 1 Specialty Diagnoses / Procedures Referred By Contac t Referred To Contact Hematology Diagnoses Iron deficiency anemia, unspecified iron deficiency anemia type Procedures CONSULT TO HEMATOLOGY OFFICE/OUTPATIENT [facility] 60-74 MINUTES Stefan Moore MD [address] [place] [address] Referral ID Status Reason Start Date Expiration Date Visits Requested Visits Authorized [id number] Pending Review PCP Requested Referral 12/10/2022 12/10/2023 1 1 Specialty Diagnoses / Procedures Referred By Contac t Referred To Contact Nutrition Diagnoses Low serum albumin Procedures CONSULT TO NUTRITION THERAPY MEDICAL NUTRITION ASSMT&IVNTJ INDIV EACH 15 [place] MEDICAL NUTRITION ASSMT&IVNTJ INDIV EACH 15 [place] MEDICAL NUTRITION ASSMT&IVNTJ INDIV EACH 15 [place] MEDICAL NUTRITION ASSMT&IVNTJ INDIV EACH 15 [place] Stefan Moore MD [address] [facility] [place] [id number] Referral ID Status Reason Start Date Expiration Date Visits Requested Visits Authorized [id number] Pending Review PCP Requested Referral 12/10/2022 12/10/2023 1 1 Additional Source Comments INFORMATION SOURCE (unrecogn ized section and content) DATE CREATED AUTHOR AUTHOR'S ORGANIZ ATION 11/29/2017 [facility] DATE CREATED AUTHOR AUTHOR'S ORGANIZ ATION 11/14/2020 [facility] DATE CREATED AUTHOR AUTHOR'S ORGANIZ ATION 06/19/2023 [facility] ([place]) DATE CREATED AUTHOR AUTHOR'S ORGANIZ ATION 06/23/2023 [facility] Source Comments (unrecognize d section and content) In the event this informatio n is protected by the Federal Confidentiality of Alcohol and Drug Abuse Patient Records regulations: The Federal rules restrict any use of the information to criminally investigate or prosecute any alcohol or drug abuse patient.[facility] the event this information is protected by the Federal Confidentiality of Alcohol and Drug Abuse Patient Records regulations: The Federal rules restrict any use of the information to criminally investigate or prosecute any alcohol or drug abuse patient.[facility]In the event this information is protected by the Federal Confidentiality of Alcohol and Drug Abuse Patient Records regulations: The Federal rules restrict any use of the information to criminally investigate or prosecute any alcohol or drug abuse patient.[facility] the event this information is protected by the Federal Confidentiality of Alcohol and Drug Abuse Patient Records regulations: The Federal rules restrict any use of the information to criminally investigate or prosecute any alcohol or drug abuse patient.[facility]In the event this information is protected by the Federal Confidentiality of Alcohol and Drug Abuse Patient Records regulations: The Federal rules restrict any use of the information to criminally investigate or prosecute any alcohol or drug abuse patient.[facility]In the event this information is protected by the Federal Confidentiality of Alcohol and Drug Abuse Patient Records regulations: The Federal rules restrict any use of the information to criminally investigate or prosecute any alcohol or drug abuse patient.[facility]In the event this information is protected by the Federal Confidentiality of Alcohol and Drug Abuse Patient Records regulations: The Federal rules restrict any use of the information to criminally investigate or prosecute any alcohol or drug abuse patient.[facility]In the event this information is protected by the Federal Confidentiality of Alcohol and Drug Abuse Patient Records regulations: The Federal rules restrict any use of the information to criminally investigate or prosecute any alcohol or drug abuse patient.[facility]In the event this information is protected by the Federal Confidentiality of Alcohol and Drug Abuse Patient Records regulations: The Federal rules restrict any use of the information to criminally investigate or prosecute any alcohol or drug abuse patient.[facility]In the event this information is protected by the Federal Confidentiality of Alcohol and Drug Abuse Patient Records regulations: The Federal rules restrict any use of the information to criminally investigate or prosecute any alcohol or drug abuse patient.[facility]In the event this information is protected by the Federal Confidentiality of Alcohol and Drug Abuse Patient Records regulations: The Federal rules restrict any use of the information to criminally investigate or prosecute any alcohol or drug abuse patient.[facility]In the event this information is protected by the Federal Confidentiality of Alcohol and Drug Abuse Patient Records regulations: The Federal rules restrict any use of the information to criminally investigate or prosecute any alcohol or drug abuse patient.[facility]In the event this information is protected by the Federal Confidentiality of Alcohol and Drug Abuse Patient Records regulations: The Federal rules restrict any use of the information to criminally investigate or prosecute any alcohol or drug abuse patient.[facility]In the event this information is protected by the Federal Confidentiality of Alcohol and Drug Abuse Patient Records regulations: The Federal rules restrict any use of the information to criminally investigate or prosecute any alcohol or drug abuse patient.[facility]In the event this information is protected by the Federal Confidentiality of Alcohol and Drug Abuse Patient Records regulations: The Federal rules restrict any use of the information to criminally investigate or prosecute any alcohol or drug abuse patient.[facility] HospitalIn the event this information is protected by the Federal Confidentiality of Alcohol and Drug Abuse Patient Records regulations: The Federal rules restrict any use of the information to criminally investigate or prosecute any alcohol or drug abuse patient.[facility]In the event this information is protected by the Federal Confidentiality of Alcohol and Drug Abuse Patient Records regulations: The Federal rules restrict any use of the information to criminally investigate or prosecute any alcohol or drug abuse patient.[facility]In the event this information is protected by the Federal Confidentiality of Alcohol and Drug Abuse Patient Records regulations: The Federal rules restrict any use of the information to criminally investigate or prosecute any alcohol or drug abuse patient.[facility]In the event this information is protected by the Federal Confidentiality of Alcohol and Drug Abuse Patient Records regulations: The Federal rules restrict any use of the information to criminally investigate or prosecute any alcohol or drug abuse patient.[facility]In the event this information is protected by the Federal Confidentiality of Alcohol and Drug Abuse Patient Records regulations: The Federal rules restrict any use of the information to criminally investigate or prosecute any alcohol or drug abuse patient.[facility] HospitalIn the event this information is protected by the Federal Confidentiality of Alcohol and Drug Abuse Patient Records regulations: The Federal rules restrict any use of the information to criminally investigate or prosecute any alcohol or drug abuse patient.[facility]In the event this information is protected by the Federal Confidentiality of Alcohol and Drug Abuse Patient Records regulations: The Federal rules restrict any use of the information to criminally investigate or prosecute any alcohol or drug abuse patient.[facility]In the event this information is protected by the Federal Confidentiality of Alcohol and Drug Abuse Patient Records regulations: The Federal rules restrict any use of the information to criminally investigate or prosecute any alcohol or drug abuse patient.[facility]In the event this information is protected by the Federal Confidentiality of Alcohol and Drug Abuse Patient Records regulations: The Federal rules restrict any use of the information to criminally investigate or prosecute any alcohol or drug abuse patient.[facility]In the event this information is protected by the Federal Confidentiality of Alcohol and Drug Abuse Patient Records regulations: The Federal rules restrict any use of the information to criminally investigate or prosecute any alcohol or drug abuse patient.[facility]In the event this information is protected by the Federal Confidentiality of Alcohol and Drug Abuse Patient Records regulations: The Federal rules restrict any use of the information to criminally investigate or prosecute any alcohol or drug abuse patient.[facility]In the event this information is protected by the Federal Confidentiality of Alcohol and Drug Abuse Patient Records regulations: The Federal rules restrict any use of the information to criminally investigate or prosecute any alcohol or drug abuse patient.[facility]In the event this information is protected by the Federal Confidentiality of Alcohol and Drug Abuse Patient Records regulations: The Federal rules restrict any use of the information to criminally investigate or prosecute any alcohol or drug abuse patient.[facility]In the event this information is protected by the Federal Confidentiality of Alcohol and Drug Abuse Patient Records regulations: The Federal rules restrict any use of the information to criminally investigate or prosecute any alcohol or drug abuse patient.[facility]In the event this information is protected by the Federal Confidentiality of Alcohol and Drug Abuse Patient Records regulations: The Federal rules restrict any use of the information to criminally investigate or prosecute any alcohol or drug abuse patient.[facility]In the event this information is protected by the Federal Confidentiality of Alcohol and Drug Abuse Patient Records regulations: The Federal rules restrict any use of the information to criminally investigate or prosecute any alcohol or drug abuse patient.[facility]In the event this information is protected by the Federal Confidentiality of Alcohol and Drug Abuse Patient Records regulations: The Federal rules restrict any use of the information to criminally investigate or prosecute any alcohol or drug abuse patient.[facility]In the event this information is protected by the Federal Confidentiality of Alcohol and Drug Abuse Patient Records regulations: The Federal rules restrict any use of the information to criminally investigate or prosecute any alcohol or drug abuse patient.[facility]In the event this information is protected by the Federal Confidentiality of Alcohol and Drug Abuse Patient Records regulations: The Federal rules restrict any use of the information to criminally investigate or prosecute any alcohol or drug abuse patient.[facility]In the event this information is protected by the Federal Confidentiality of Alcohol and Drug Abuse Patient Records regulations: The Federal rules restrict any use of the information to criminally investigate or prosecute any alcohol or drug abuse patient.[facility]In the event this information is protected by the Federal Confidentiality of Alcohol and Drug Abuse Patient Records regulations: The Federal rules restrict any use of the information to criminally investigate or prosecute any alcohol or drug abuse patient.[facility]In the event this information is protected by the Federal Confidentiality of Alcohol and Drug Abuse Patient Records regulations: The Federal rules restrict any use of the information to criminally investigate or prosecute any alcohol or drug abuse patient.[facility]In the event this information is protected by the Federal Confidentiality of Alcohol and Drug Abuse Patient Records regulations: The Federal rules restrict any use of the information to criminally investigate or prosecute any alcohol or drug abuse patient.[facility]In the event this information is protected by the Federal Confidentiality of Alcohol and Drug Abuse Patient Records regulations: The Federal rules restrict any use of the information to criminally investigate or prosecute any alcohol or drug abuse patient.[facility]In the event this information is protected by the Federal Confidentiality of Alcohol and Drug Abuse Patient Records regulations: The Federal rules restrict any use of the information to criminally investigate or prosecute any alcohol or drug abuse patient.[facility]In the event this information is protected by the Federal Confidentiality of Alcohol and Drug Abuse Patient Records regulations: The Federal rules restrict any use of the information to criminally investigate or prosecute any alcohol or drug abuse patient.[facility]In the event this information is protected by the Federal Confidentiality of Alcohol and Drug Abuse Patient Records regulations: The Federal rules restrict any use of the information to criminally investigate or prosecute any alcohol or drug abuse patient.[facility]In the event this information is protected by the Federal Confidentiality of Alcohol and Drug Abuse Patient Records regulations: The Federal rules restrict any use of the information to criminally investigate or prosecute any alcohol or drug abuse patient.[facility]In the event this information is protected by the Federal Confidentiality of Alcohol and Drug Abuse Patient Records regulations: The Federal rules restrict any use of the information to criminally investigate or prosecute any alcohol or drug abuse patient.[facility]In the event this information is protected by the Federal Confidentiality of Alcohol and Drug Abuse Patient Records regulations: The Federal rules restrict any use of the information to criminally investigate or prosecute any alcohol or drug abuse patient.[facility]In the event this information is protected by the Federal Confidentiality of Alcohol and Drug Abuse Patient Records regulations: The Federal rules restrict any use of the information to criminally investigate or prosecute any alcohol or drug abuse patient.[facility]In the event this information is protected by the Federal Confidentiality of Alcohol and Drug Abuse Patient Records regulations: The Federal rules restrict any use of the information to criminally investigate or prosecute any alcohol or drug abuse patient.[facility]In the event this information is protected by the Federal Confidentiality of Alcohol and Drug Abuse Patient Records regulations: The Federal rules restrict any use of the information to criminally investigate or prosecute any alcohol or drug abuse patient.[facility]In the event this information is protected by the Federal Confidentiality of Alcohol and Drug Abuse Patient Records regulations: The Federal rules restrict any use of the information to criminally investigate or prosecute any alcohol or drug abuse patient.[facility]In the event this information is protected by the Federal Confidentiality of Alcohol and Drug Abuse Patient Records regulations: The Federal rules restrict any use of the information to criminally investigate or prosecute any alcohol or drug abuse patient.[facility]In the event this information is protected by the Federal Confidentiality of Alcohol and Drug Abuse Patient Records regulations: The Federal rules restrict any use of the information to criminally investigate or prosecute any alcohol or drug abuse patient.[facility]In the event this information is protected by the Federal Confidentiality of Alcohol and Drug Abuse Patient Records regulations: The Federal rules restrict any use of the information to criminally investigate or prosecute any alcohol or drug abuse patient.[facility]In the event this information is protected by the Federal Confidentiality of Alcohol and Drug Abuse Patient Records regulations: The Federal rules restrict any use of the information to criminally investigate or prosecute any alcohol or drug abuse patient.[facility]In the event this information is protected by the Federal Confidentiality of Alcohol and Drug Abuse Patient Records regulations: The Federal rules restrict any use of the information to criminally investigate or prosecute any alcohol or drug abuse patient.[facility]In the event this information is protected by the Federal Confidentiality of Alcohol and Drug Abuse Patient Records regulations: The Federal rules restrict any use of the information to criminally investigate or prosecute any alcohol or drug abuse patient.[facility]In the event this information is protected by the Federal Confidentiality of Alcohol and Drug Abuse Patient Records regulations: The Federal rules restrict any use of the information to criminally investigate or prosecute any alcohol or drug abuse patient.[facility]In the event this information is protected by the Federal Confidentiality of Alcohol and Drug Abuse Patient Records regulations: The Federal rules restrict any use of the information to criminally investigate or prosecute any alcohol or drug abuse patient.[facility]In the event this information is protected by the Federal Confidentiality of Alcohol and Drug Abuse Patient Records regulations: The Federal rules restrict any use of the information to criminally investigate or prosecute any alcohol or drug abuse patient.[facility]In the event this information is protected by the Federal Confidentiality of Alcohol and Drug Abuse Patient Records regulations: The Federal rules restrict any use of the information to criminally investigate or prosecute any alcohol or drug abuse patient.[facility]In the event this information is protected by the Federal Confidentiality of Alcohol and Drug Abuse Patient Records regulations: The Federal rules restrict any use of the information to criminally investigate or prosecute any alcohol or drug abuse patient.[facility]In the event this information is protected by the Federal Confidentiality of Alcohol and Drug Abuse Patient Records regulations: The Federal rules restrict any use of the information to criminally investigate or prosecute any alcohol or drug abuse patient.[facility]In the event this information is protected by the Federal Confidentiality of Alcohol and Drug Abuse Patient Records regulations: The Federal rules restrict any use of the information to criminally investigate or prosecute any alcohol or drug abuse patient.[facility]In the event this information is protected by the Federal Confidentiality of Alcohol and Drug Abuse Patient Records regulations: The Federal rules restrict any use of the information to criminally investigate or prosecute any alcohol or drug abuse patient.[facility]In the event this information is protected by the Federal Confidentiality of Alcohol and Drug Abuse Patient Records regulations: The Federal rules restrict any use of the information to criminally investigate or prosecute any alcohol or drug abuse patient.[facility]In the event this information is protected by the Federal Confidentiality of Alcohol and Drug Abuse Patient Records regulations: The Federal rules restrict any use of the information to criminally investigate or prosecute any alcohol or drug abuse patient.[facility]In the event this information is protected by the Federal Confidentiality of Alcohol and Drug Abuse Patient Records regulations: The Federal rules restrict any use of the information to criminally investigate or prosecute any alcohol or drug abuse patient.[facility]In the event this information is protected by the Federal Confidentiality of Alcohol and Drug Abuse Patient Records regulations: The Federal rules restrict any use of the information to criminally investigate or prosecute any alcohol or drug abuse patient.[facility]In the event this information is protected by the Federal Confidentiality of Alcohol and Drug Abuse Patient Records regulations: The Federal rules restrict any use of the information to criminally investigate or prosecute any alcohol or drug abuse patient.[facility]In the event this information is protected by the Federal Confidentiality of Alcohol and Drug Abuse Patient Records regulations: The Federal rules restrict any use of the information to criminally investigate or prosecute any alcohol or drug abuse patient.[facility]In the event this information is protected by the Federal Confidentiality of Alcohol and Drug Abuse Patient Records regulations: The Federal rules restrict any use of the information to criminally investigate or prosecute any alcohol or drug abuse patient.[facility]In the event this information is protected by the Federal Confidentiality of Alcohol and Drug Abuse Patient Records regulations: The Federal rules restrict any use of the information to criminally investigate or prosecute any alcohol or drug abuse patient.[facility]In the event this information is protected by the Federal Confidentiality of Alcohol and Drug Abuse Patient Records regulations: The Federal rules restrict any use of the information to criminally investigate or prosecute any alcohol or drug abuse patient.[facility]In the event this information is protected by the Federal Confidentiality of Alcohol and Drug Abuse Patient Records regulations: The Federal rules restrict any use of the information to criminally investigate or prosecute any alcohol or drug abuse patient.[facility]In the event this information is protected by the Federal Confidentiality of Alcohol and Drug Abuse Patient Records regulations: The Federal rules restrict any use of the information to criminally investigate or prosecute any alcohol or drug abuse patient.[facility]In the event this information is protected by the Federal Confidentiality of Alcohol and Drug Abuse Patient Records regulations: The Federal rules restrict any use of the information to criminally investigate or prosecute any alcohol or drug abuse patient.[facility]In the event this information is protected by the Federal Confidentiality of Alcohol and Drug Abuse Patient Records regulations: The Federal rules restrict any use of the information to criminally investigate or prosecute any alcohol or drug abuse patient.[facility]In the event this information is protected by the Federal Confidentiality of Alcohol and Drug Abuse Patient Records regulations: The Federal rules restrict any use of the information to criminally investigate or prosecute any alcohol or drug abuse patient.[facility]In the event this information is protected by the Federal Confidentiality of Alcohol and Drug Abuse Patient Records regulations: The Federal rules restrict any use of the information to criminally investigate or prosecute any alcohol or drug abuse patient.[facility]In the event this information is protected by the Federal Confidentiality of Alcohol and Drug Abuse Patient Records regulations: The Federal rules restrict any use of the information to criminally investigate or prosecute any alcohol or drug abuse patient.[facility] the event this information is protected by the Federal Confidentiality of Alcohol and Drug Abuse Patient Records regulations: The Federal rules restrict any use of the information to criminally investigate or prosecute any alcohol or drug abuse patient.[facility]In the event this information is protected by the Federal Confidentiality of Alcohol and Drug Abuse Patient Records regulations: The Federal rules restrict any use of the information to criminally investigate or prosecute any alcohol or drug abuse patient.[facility] the event this information is protected by the Federal Confidentiality of Alcohol and Drug Abuse Patient Records regulations: The Federal rules restrict any use of the information to criminally investigate or prosecute any alcohol or drug abuse patient.[facility] HospitalIn the event this information is protected by the Federal Confidentiality of Alcohol and Drug Abuse Patient Records regulations: The Federal rules restrict any use of the information to criminally investigate or prosecute any alcohol or drug abuse patient.[facility] HospitalIn the event this information is protected by the Federal Confidentiality of Alcohol and Drug Abuse Patient Records regulations: The Federal rules restrict any use of the information to criminally investigate or prosecute any alcohol or drug abuse patient.[facility] HospitalIn the event this information is protected by the Federal Confidentiality of Alcohol and Drug Abuse Patient Records regulations: The Federal rules restrict any use of the information to criminally investigate or prosecute any alcohol or drug abuse patient.[facility]In the event this information is protected by the Federal Confidentiality of Alcohol and Drug Abuse Patient Records regulations: The Federal rules restrict any use of the information to criminally investigate or prosecute any alcohol or drug abuse patient.[facility] HospitalIn the event this information is protected by the Federal Confidentiality of Alcohol and Drug Abuse Patient Records regulations: The Federal rules restrict any use of the information to criminally investigate or prosecute any alcohol or drug abuse patient.[facility] HospitalIn the event this information is protected by the Federal Confidentiality of Alcohol and Drug Abuse Patient Records regulations: The Federal rules restrict any use of the information to criminally investigate or prosecute any alcohol or drug abuse patient.[facility] HospitalIn the event this information is protected by the Federal Confidentiality of Alcohol and Drug Abuse Patient Records regulations: The Federal rules restrict any use of the information to criminally investigate or prosecute any alcohol or drug abuse patient.[facility] HospitalIn the event this information is protected by the Federal Confidentiality of Alcohol and Drug Abuse Patient Records regulations: The Federal rules restrict any use of the information to criminally investigate or prosecute any alcohol or drug abuse patient.[facility] HospitalIn the event this information is protected by the Federal Confidentiality of Alcohol and Drug Abuse Patient Records regulations: The Federal rules restrict any use of the information to criminally investigate or prosecute any alcohol or drug abuse patient.[facility] HospitalIn the event this information is protected by the Federal Confidentiality of Alcohol and Drug Abuse Patient Records regulations: The Federal rules restrict any use of the information to criminally investigate or prosecute any alcohol or drug abuse patient.[facility] HospitalIn the event this information is protected by the Federal Confidentiality of Alcohol and Drug Abuse Patient Records regulations: The Federal rules restrict any use of the information to criminally investigate or prosecute any alcohol or drug abuse patient.[facility] Reason for Visit (unrecogniz ed section and content) Specialty Diagnoses / Procedures Referred By Contgeorgia t Referred To Contact Diagnoses Anemia, unspecified type Procedures CONSULT TO HEMATOLOGY/ONCOLOGY OFFICE/OUTPATIENT [facility] MDM 60-74 MINUTES Monae Bowser, TONSORIAL ARTIST.PICK REMOVER [address] [place] [address] Referral ID Status Reason Start Date Expiration Date Visits Requested Visits Authorized [id number] Pending Review PCP Requested Referral 11/08/2022 11/08/2023 [...] Referred To Contact Radiology / RADIO MRI [facility] Diagnoses MRI LUMBAR WO CONTRAST-ARTHROPATHY OF LUMBAR FACET, DEGENERATION OF LUMBOSACRAL INTERVERTEBRAL AUTH#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, VALID 12/29/2021-06/27/2022 OUTSIDE ORDER SCANNED AND PLACED IN SYNGO Procedures MRI WO M[address]ESH [address] ALL Prebish, Fabiola [address] [place] [address] Radio Mri [facility] [address] [place] [address] Referral ID Status Reason Start Date Expiration Date V isits Requested Visits Authorized [id number] Outside PCP 12/29/2021 06/27/2022 1 1 Reason Comments right foot and toe pain Fell last night Reason Comments Acute Visit right leg swelling Reason Comments Results Xray and US DVT Reason Comments Radiology US Specialty Diagnoses / Procedures Referred By Contac t Referred To Contact US IMAGING Diagnoses Leg swelling Procedures US DVT LOWER RT DUP-SCAN XTR VEINS UNILATERAL/LIMITED STUDY Flor Boyle, TONSORIAL ARTIST.PICK REMOVER [address] [place] [phone] Us Imaging Referral ID Status Reason Start Date Expiration Date V isits Requested Visits Authorized [id number] Closed Auto-Generate d Referral 01/24/2022 02/23/2023 1 1 Reason Comments 6 Month Exam Reason Comments 2 week follow up - recheck legs Reason Comments lab appt. Reason Onset Date Comments Refill Request 03/03/2022 Reason Comments Patient Request Reason Comments ED Follow-up [facility] 03/27/22 DX:Rhea l. Started URI symptoms on 03/23/22. Cough,congestion, runny nose, fever TMAX 102.3, diarrhea, body aches. Reason Comments [facility] Reason Onset Date Comments Refill Request [...] HIGH MDM 60-74 MINUTES Chun Brewster MD [address] [place] [address] Referral ID Status Reason Start Date Expiration Date Visits Requested Visits Authorized [id number] Pending Review PCP Requested Referral 06/08/2022 06/08/2023 1 1 Reason Comments Refill Request Reason Onset Date Comments Refill Request 09/23/2022 OUT OF TEST STRI PS Reason Comments Medical Clearance Reason Comments Established Patient Follow Up Diabetic Foot Care Reason Comments Patient Update Patient Question Reason Comments Weakness Reason Onset Date Comments Virtualist 10/31/2022 Reason Comments ER F/U [facility] ER f/u dx: weakn ess/shortness of breath Reason Comments Results Reason Comments Follow Up Reason Comments Orders Reason Onset Date Comments Refill Request 12/22/2022 Reason Comments Patient Education Assessment Specialty Diagnoses / Procedures Referred By Contac t Referred To Contact Nutrition Diagnoses Low serum albumin Procedures CONSULT TO NUTRITION THERAPY MEDICAL NUTRITION ASSMT&IVNTJ INDIV EACH 15 LA MEDICAL NUTRITION ASSMT&IVNTJ INDIV EACH 15 [place] MEDICAL NUTRITION ASSMT&IVNTJ INDIV EACH 15 [place] MEDICAL NUTRITION ASSMT&IVNTJ INDIV EACH 15 LA Stefan Moore MD [address] [place] [address] Referral ID Status Reason Start Date Expiration Date Visits Requested Visits Authorized [id number] Pending Review PCP Requested Referral 12/10/2022 12/10/2023 1 1 Reason Comments fracture update Results Reason Comments Hospital F/U Reason Comments Non-Chemotherapy Treatment Specialty Diagnoses / Procedures Referred By Contac t Referred To Contact Diagnoses Anemia due to stage 3b chronic kidney disease (HCC) Procedures IRON SUCROSE INJECTION [place] 1 [place] [address] [place] [address] [facility] [address] [place] [address] Referral ID Status Reason Start Date Expiration Date V isits Requested Visits Authorized [id number] Authorized 05/02/2023 06/04/2023 99 99 Reason Comments Benefits Investigation Reason Comments AVS 05/11 Care Teams (unrecognized sec tion and content) Special Inspector Relationship Specialty Start Date End Date Stefan Moore MD [address] [place] [address] PCP - General Family Practice 09/08/16 Special Inspector Relationship Specialty Start Date End Date Stefan Moore MD [address] [place] [address] PCP - General Family Practice 09/08/16 Special Inspector Relationship Specialty Start Date End Date Stefan Moore MD [address] [place] [address] PCP - General Family Practice 09/08/16 Special Inspector Relationship Specialty Start Date End Date Stefan Moore MD [address] [place] [address] PCP - General Family Practice 09/08/16 Special Inspector Relationship Specialty Start Date End Date Stefan Moore MD [address] [place] [address] PCP - General Family Practice 09/08/16 Special Inspector Relationship Specialty Start Date End Date Stefan Moore MD [address] [place] [address] PCP - General Family Practice 09/08/16 Special Inspector Relationship Specialty Start Date End Date Stefan Moore MD [address] [place] [address] PCP - General Family Practice 09/08/16 Special Inspector Relationship Specialty Start Date End Date Stefan Moore MD [address] [facility] [address] PCP - General Family Practice 09/08/16 Special Inspector Relationship Specialty Start Date End Date Stefan Moore MD [address] [facility] [address] PCP - General Family Practice 09/08/16 Special Inspector Relationship Specialty Start Date End Date Stefan Moore MD [address] [facility] [address] PCP - General Family Practice 09/08/16 Special Inspector Relationship Specialty Start Date End Date Stefan Moore MD [address] [facility] [address] PCP - General Family Practice 09/08/16 Special Inspector Relationship Specialty Start Date End Date Stefan Moore MD [address] [facility] [address] PCP - General Family Practice 09/08/16 Special Inspector Relationship Specialty Start Date End Date Stefan Moore MD [address] [facility] [address] PCP - General Family Practice 09/08/16 Special Inspector Relationship Specialty Start Date End Date Stefan Moore MD [address] [facility] [address] PCP - General Family Practice 09/08/16 Special Inspector Relationship Specialty Start Date End Date Stefan Moore MD [address] [facility] [address] PCP - General Family Practice 09/08/16 Special Inspector Relationship Specialty Start Date End Date Stefan Moore MD [address] [facility] [address] PCP - General Family Practice 09/08/16 Special Inspector Relationship Specialty Start Date End Date Stefan Moore MD [address] [facility] [address] PCP - General Family Medicine 09/08/16 Special Inspector Relationship Specialty Start Date End Date Stefan Moore MD [address] [facility] [address] PCP - General Family Medicine 09/08/16 Special Inspector Relationship Specialty Start Date End Date Stefan Moore MD [address] [facility] [address] PCP - General Family Medicine 09/08/16 Special Inspector Relationship Specialty Start Date End Date Stefan Moore MD [address] [facility] [address] PCP - General Family Medicine 09/08/16 Special Inspector Relationship Specialty Start Date End Date Stefan Moore MD [address] [facility] [address] PCP - General Family Medicine 09/08/16 Special Inspector Relationship Specialty Start Date End Date Stefan Moore MD [address] [facility] [address] PCP - General Family Medicine 09/08/16 Special Inspector Relationship Specialty Start Date End Date Stefan Moore MD [address] [facility] [address] PCP - General Family Medicine 09/08/16 Special Inspector Relationship Specialty Start Date End Date Stefan Moore MD [address] [facility] [address] PCP - General Family Medicine 09/08/16 Special Inspector Relationship Specialty Start Date End Date Stefan Mooer MD [address] [facility] [address] PCP - General Family Medicine 09/08/16 Special Inspector Relationship Specialty Start Date End Date Stefan Moore MD [address] [facility] [address] PCP - General Family Medicine 09/08/16 Special Inspector Relationship Specialty Start Date End Date Stefan Moore MD [address] [facility] [address] PCP - General Family Medicine 09/08/16 Special Inspector Relationship Specialty Start Date End Date Stefan Moore MD [address] [facility] [address] PCP - General Family Medicine 09/08/16 Special Inspector Relationship Specialty Start Date End Date Stefan Moore MD [address] [facility] [address] PCP - General Family Medicine 09/08/16 Special Inspector Relationship Specialty Start Date End Date Stefan Moore MD [address] [facility] [address] PCP - General Family Medicine 09/08/16 Special Inspector Relationship Specialty Start Date End Date Stefan Moore MD [address] [facility] [address] PCP - General Family Medicine 09/08/16 Special Inspector Relationship Specialty Start Date End Date Stefan Moore MD [address] [facility] [address] PCP - General Family Medicine 09/08/16 Special Inspector Relationship Specialty Start Date End Date Stefan Moore MD [address] [facility] [address] PCP - General Family Medicine 09/08/16 Special Inspector Relationship Specialty Start Date End Date Stefan Moore MD [address] [facility] [address] PCP - General Family Medicine 09/08/16 Special Inspector Relationship Specialty Start Date End Date Stefan Moore MD [address] [facility] [address] PCP - General Family Medicine 09/08/16 Special Inspector Relationship Specialty Start Date End Date Stefan Moore MD [address] [facility] [address] PCP - General Family Medicine 09/08/16 Special Inspector Relationship Specialty Start Date End Date Stefan Moore MD [address] [facility] [address] PCP - General Family Medicine 09/08/16 Special Inspector Relationship Specialty Start Date End Date Stefan Moore MD [address] [facility] [address] PCP - General Family Medicine 09/08/16 Special Inspector Relationship Specialty Start Date End Date Stefan Moore MD [address] [facility] [address] PCP - General Family Medicine 09/08/16 Special Inspector Relationship Specialty Start Date End Date Stefan Moore MD [address] [facility] [address] PCP - General Family Medicine 09/08/16 Special Inspector Relationship Specialty Start Date End Date Stefan Moore MD [address] [facility] [address] PCP - General Family Medicine 09/08/16 Special Inspector Relationship Specialty Start Date End Date Stefan Moore MD [address] [facility] [address] PCP - General Family Medicine 09/08/16 Special Inspector Relationship Specialty Start Date End Date Stefan Moore MD [address] [place] [address] PCP - General Family Medicine 09/08/16 Special Inspector Relationship Specialty Start Date End Date Stefan Moore MD [address] [place] [address] PCP - General Family Medicine 09/08/16 Special Inspector Relationship Specialty Start Date End Date Stefan Moore MD [address] [place] [address] PCP - General Family Medicine 09/08/16 Special Inspector Relationship Specialty Start Date End Date Stefan Moore MD [address] [place] [address] PCP - General Family Medicine 09/08/16 Dion Chavarria MD [address] [address] Hematology/Oncology 01/10/23 Special Inspector Relationship Specialty Start Date End Date Stefan Moore MD [address] [place] [address] PCP - General Family Medicine 09/08/16 Dion Chavarria MD [address] [place] [address] Hematology/Oncology 01/10/23 Special Inspector Relationship Specialty Start Date End Date Stefan Moore MD [address] [place] [address] PCP - General Family Medicine 09/08/16 Dion Chavarria MD [address] [place] [address] Hematology/Oncology 01/10/23 Special Inspector Relationship Specialty Start Date End Date Stefan Moore MD [address] [place] [address] PCP - General Family Medicine 09/08/16 Dion Chavarria MD [address] [place] [address] Hematology/Oncology 01/10/23 Special Inspector Relationship Specialty Start Date End Date Stefan Moore MD [address] [place] [address] PCP - General Family Medicine 09/08/16 Special Inspector Relationship Specialty Start Date End Date Stefan Moore MD [address] [place] [address] PCP - General Family Medicine 09/08/16 Dion Chavarria MD [address] [place] [address] Hematology/Oncology 01/10/23 Special Inspector Relationship Specialty Start Date End Date Stefan Moore MD [address] [place] [address] PCP - General Family Medicine 09/08/16 Dion Chavarria MD [address] [place] [address] Hematology/Oncology 01/10/23 Special Inspector Relationship Specialty Start Date End Date Stefan Moore MD [address] [place] [address] PCP - General Family Medicine 09/08/16 Dion Chavarria MD [address] [place] [address] Hematology/Oncology 01/10/23 Special Inspector Relationship Specialty Start Date End Date Stefan Moore MD [address] [facility] [place] [place] [address] PCP - General Family Medicine 09/08/16 Dion Chavarria MD [address] [place] [address] Hematology/Oncology 01/10/23 Special Inspector Relationship Specialty Start Date End Date Stefan Moore MD [address] [place] [address] PCP - General Family Medicine 09/08/16 Dion Chavarria MD [address] [place] [address] Hematology/Oncology 01/10/23 Special Inspector Relationship Specialty Start Date End Date Stefan Moore MD [address] [facility] [place] [place] [address] PCP - General Family Medicine 09/08/16 Dion Chavarria MD [address] [place] [address] Hematology/Oncology 01/10/23 FOR RECORDS PERTAINING TO PATIENTS [...] BE BASED ON THE PRIMARY CLINICAL RECORDS. [facility]. provides no warranty or guarantee of the accuracy or completeness of information in this document.
[2023-06-28 07:00] LABS: Absolute Lymphocyte Count 1.12 X10^3/uL (0.83-4.51); Absolute Neutrophil Count 3.3 X10^3/uL (2.0-7.7); Basophil# 0.05 X10^3/uL; Eosinophil# 0.22 X10^3/uL; Eosinophils% 4.2 % (0-5); Hematocrit 31.5 % (37-47); Hemoglobin 9.5 g/dL (12.0-15.0); Lymphocyte # 1.12 X10^3/ul (0.83-4.51); Lymphocyte % 21.6 % (19-41); Mean Corp Hgb Conc 30.2 g/dL (32-36); Mean Corpuscular Hgb 26.5 pg (27.0-32.0); Mean Corpuscular Volume 87.7 fL (81-99); Monocyte# 0.46 X10^3/uL; Monocyte% 8.9 % (0-10); NRBC Flagged by Analyzer 0 % (0-5); Neutrophil # 3.33 X10^3/uL (2.7-7.7); Neutrophil % 64.1 % (47-70); Platelet Count 203 K/mm3 (150-450); RBC Distribution Width CV 17.8 % (11.6-14.6); Red Blood Count 3.59 M/mm3 (4.2-5.4); White Blood Count 5.2 K/mm3 (4.4-11.0)
[2023-06-28 07:14] LABS: Albumin, Serum 2.9 g/dL (3.2-5.0); Anion Gap 1 (5-15); BUN 40 mg/dL (7-18); BUN/Creat Ratio 35.1 RATIO (10-20); Chloride 107 mmol/L (98-107); Creatinine, Serum 1.14 mg/dL (0.55-1.02); EST Glomerular Filtration Rate 48 mL/min (>60); Est Glom Filt Rate - Afr Amer 59 mL/min (>60); Glucose 138 mg/dL (74-106); Potassium 4.1 mmol/L (3.5-5.1); Sodium Level 137 mmol/L (136-145)
== END ==
LOC: OLS.WHLEAS 05:20
PROVIDERS: PCP Family Medicine; Visit Provider Internal Medicine
DX: D50.9 Iron deficiency anemia, unspecified (principal); S82.201D Unspecified fracture of shaft of right tibia, subsequent encounter for closed fracture with routine healing; I48.0 Paroxysmal atrial fibrillation; M62.561 Muscle wasting and atrophy, not elsewhere classified, right lower leg; Z01.812 Encounter for preprocedural laboratory examination
CPT/HCPCS: 36415; 80048; 82040; 85025

== ENCOUNTER → 2023-07-03 | Outpatient (REF) | payer MEDICARE, MEDICAID, SELFPAY ==
--- OUTSIDE RECORDS SUMMARY | 2023-07-03 05:38 | XMS RPT_ITS | CCD ---
Author Name Unknown Address [address] [place] [address] Organization [facility] Care Team Providers Care Operation Manager Name Role Phone LAWSON VARMA Unavailable Unavailable IMCA Unavailable Unavailable Stefan Moore Unavailable Unavailable LAWSON VARMA Unavailable Unavailable LAWSON VARMA Unavailable Unavailable Stefan Moore Unavailable Unavailable TALDAVID LONNY Unavailable Unavailable JUNIOR SHAFERNATHAN Unavailable Unavailable Stefan Moore MD Primary Care Provider Stefan Moore MD Primary Care Provider Stefan Moore MD Primary Care Provider Stefan Moore MD Primary Care Provider Dion Chavarria MD Unavailable OSCAR ROTHMAN, STEFAN Primary Care Physician GABRIELA ROTHMAN, DR ETHEL Arellano Attending STEFAN Dave MD Primary Care Unavailable GABRIELA ROTHMAN, DR ETHEL Arellano Attending UnavailSTEFAN Parson MD Primary Care Unavailable STEFAN MOORE Primary Care Unavailable STEFAN MOORE Referring Unavailable DALI SEPULVEDA Attending Unavailable STEFAN MOORE [...] Referring Unavailable STEFAN MOORE Primary Care Unavailable STEFAN MOORE Primary Care Unavailable OSCAR, STEFAN Hackett Attending Unavailable TESTDALI SANDERS Attending Unavailable OSCAR, STEFAN Hackett Primary Care Unavailable OSCAR, STEFAN Hackett Primary Care Unavailable OSCAR, STEFAN Hackett Primary Care Unavailable MONAE BOWSER Attending Unavailable OSCAR, STEFAN Hackett Primary Care Unavailable MONAE BOWSER Attending Unavailable OSCAR, STEFAN Hackett Primary Care [...] STEFAN Hackett Primary Care Unavailable BRIJESH BOJORQUEZ Referring Unavailable [...] Unavailable OSCAR, STEFAN Hackett Primary Care Unavailable CHUN BREWSTER Referring Unavailable OSCAR, STEFAN Hackett Primary Care Unavailable DOMINGO KNUTSON Attending Unavailable OSCAR, STEFAN Hackett Primary Care Unavailable DION CHAVARRIA Referring Unavailable OSCAR, STEFAN Hcakett Primary Care Unavailable DION CHAVARRIA Referring Unavailable DION CHAVARRIA Attending Unavailable OSCAR, STEFAN Hackett Primary Care Unavailable OSCAR, STEFAN Hackett Primary Care Unavailable TESTDALI SANDERS Referring Unavailable TESTDALI SANDERS Attending Unavailable OSCAR, STEFAN Hackett Primary Care Unavailable TESTDALI SANDERS Referring Unavailable OSCAR, STEFAN Hackett Primary Care Unavailable OSCAR, STEFAN Hackett Primary Care Unavailable MONAE BOWSER Referring Unavailable DION CHAVARRIA Referring Unavailable OSCAR, [...] Unavailable OSCAR, STEFAN Hackett Primary Care Unavailable Allergies Allergy Classification Reported Allergen(s) Allergy Type Date of Onset Reaction(s) Facility (20 sources) ezetimibe / simvastatin; Translations: [EZETIMIBE-SIMV ASTATIN] Drug Allergy 1 Contraindicatio [facility] Repository (20 sources) Hmg-Coa Reductase Inhibitors (Statins); Translations: [SALXLMI-TQR-DQ A REDUCTASE INHIBITORS] Propensity to adverse reactions (disorder) 7 Other: See Comments [facility] Repository (20 sources) metFORMIN; Translations: [METFORMIN] Drug Allergy 4 Other: See Comments [facility] Repository (20 sources) simvastatin; Translations: [SIMVASTATIN] Drug Allergy 1 Contraindicatio [facility] Repository (20 sources) Iodine; Translations: [IODINE] Drug Allergy 1 Rash, Unknown, Hives [facility] (1 source) HMG-CoA reductase inhibitor; Translations: [statins] Drug allergy [facility] (1 source) Shellfish 1 Food allergy [facility] Medications Current Medications Medication Drug Class(es) [...] chronic kidney disease (HCC) (HCC)] Onset: 3 Diabetes mellitus with complications (20 sources) Type 2 diabetes mellitus; Translations: [Type 2 diabetes mellitus 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 polyneuropathy] Onset: 8 07-22-2020 Chronic Diabetes mellitus without complication (1 source) Diabetes mellitus without complication; Translations: [Type 2 diabetes mellitus with stage 3b chronic kidney disease, without long-term current use of insulin ([facility])] Onset: 2 Disorders of lipid metabolism (20 [...] not specified as acute or chronic] Onset: 2022 Episodic Deficiency and other anemia (20 sources) [...] height 172.[address] ETHEL OCHOA MD [facility] 06-16-2023 13:15-0500 Body weight [address] ETHEL OCHOA MD [facility] 05-01-2023 14:10-0500 Body temperature 97.5 [degF] Dion Chvaarria MD Work Phone: [facility] 05-01-2023 14:10-0500 Diastolic blood pressure 57 mm[Hg] Dion Chavarria MD Work Phone: [facility] 05-01-2023 14:10-0500 Heart rate 87 /min Dion Chavarria MD Work Phone: [facility] 05-01-2023 14:10-0500 SaO2% (BldA) [Mass fraction] 96 % Dion Chavarria MD Work Phone: [facility] 05-01-2023 14:10-0500 Systolic blood pressure 105 mm[Hg] Dion Chavarria MD Work Phone: [facility] 04-05-2023 09:26-0400 Body height 172.7 cm Stefan Moore MD Work Phone: [facility] 04-05-2023 09:26-0400 Body weight 94.35 kg Stefan Moore MD Work Phone: [facility] 04-05-2023 09:26-0400 Diastolic blood pressure 48 mm[Hg] Stefan Moore MD Work Phone: [facility] 04-05-2023 09:26-0400 Heart rate 80 /min Stefan Moore MD Work Phone: [facility] 04-05-2023 09:26-0400 SaO2% (BldA) [Mass fraction] 95 % Stefan Moore MD Work Phone: [facility] 04-05-2023 09:26-0400 Systolic blood pressure 120 mm[Hg] Stefan Moore MD Work Phone: [facility] 01-10-2023 12:19-0400 Body temperature 97 [degF] Dion Chavarria MD Work Phone: [facility] 01-10-2023 12:19-0400 Body weight 90.27 kg Dion Chavarria MD Work Phone: [facility] 01-10-2023 12:19-0400 Diastolic blood pressure 66 mm[Hg] Dion Chavarria MD Work Phone: [facility] 01-10-2023 12:19-0400 Heart rate 75 /min Dion Chavarria MD Work Phone: [facility] 01-10-2023 12:19-0400 SaO2% (BldA) [Mass fraction] 97 % Dion Chavarria MD Work Phone: [facility] 01-10-2023 12:19-0400 Systolic blood pressure 128 mm[Hg] Dion Chavarria MD Work Phone: [facility] 01-02-2023 12:59-0400 Body height 172.[address] [facility] 01-02-2023 12:59-0400 Body weight 94.[address] [facility] 12-10-2022 10:50-0400 Body height 172.7 cm Stefan Moore MD Work Phone: [facility] 12-10-2022 10:50-0400 Body weight 92.53 kg Stefan Moore MD Work Phone: [facility] 12-10-2022 10:50-0400 Diastolic blood pressure 58 mm[Hg] Stefan Moore MD Work Phone: [facility] 12-10-2022 10:50-0400 Heart rate 80 /min Stefan Moore MD Work Phone: [facility] 12-10-2022 10:50-0400 SaO2% (BldA) [Mass fraction] 96 % Stefna Moore MD Work Phone: [facility] 12-10-2022 10:50-0400 Systolic blood pressure 140 mm[Hg] Stefan Moore MD Work Phone: [facility] 11-07-2022 13:35-0400 Diastolic blood pressure 60 mm[Hg] Monae Haagen DIRECTOR OF EARLY CHILDHOOD EDUCATION.SPARMAKER Work Phone: [facility] 11-07-2022 13:35-0400 Heart rate 83 /min Monae Haagen DIRECTOR OF EARLY CHILDHOOD EDUCATION.SPARMAKER Work Phone: [facility] 11-07-2022 13:35-0400 Respiratory rate 16 /min Monae Haagen DIRECTOR OF EARLY CHILDHOOD EDUCATION.SPARMAKER Work Phone: [facility] 11-07-2022 13:35-0400 SaO2% (BldA) [Mass fraction] 96 % Monae Haagen DIRECTOR OF EARLY CHILDHOOD EDUCATION.SPARMAKER Work Phone: [facility] 11-07-2022 13:35-0400 Systolic blood pressure 132 mm[Hg] Monae Haagen DIRECTOR OF EARLY CHILDHOOD EDUCATION.SPARMAKER Work Phone: [facility] 08-23-2022 15:46-0400 Diastolic blood pressure 60 mm[Hg] Stefan Moore MD Work Phone: [facility] 08-23-2022 15:46-0400 Systolic blood pressure 138 mm[Hg] Stefan Moore MD Work Phone: [facility] 08-23-2022 15:23-0400 Body height 172.7 cm Stefan Moore MD Work Phone: [facility] 08-23-2022 15:23-0400 Body weight 94.89 kg Stefan Moore MD Work Phone: [facility] 08-23-2022 15:23-0400 Heart rate 84 /min Stefan Moore MD Work Phone: [facility] 08-23-2022 15:23-0400 SaO2% (BldA) [Mass fraction] 97 % Stefan Moore MD Work Phone: [facility] 07-13-2022 11:05-0500 Diastolic blood pressure 58 mm[Hg] Mi Nurse Work Phone: [facility] 07-13-2022 11:05-0500 Heart rate 70 /min Mi Nurse Work Phone: [facility] 07-13-2022 11:05-0500 Systolic blood pressure 128 mm[Hg] Mi Nurse Work Phone: [facility] 06-28-2022 14:06-0500 Diastolic blood pressure 75 mm[Hg] Mi Nurse Work Phone: [facility] 06-28-2022 14:06-0500 Heart rate 76 /min Mi Nurse Work Phone: [facility] 06-28-2022 14:06-0500 Systolic blood pressure 157 mm[Hg] Mi Nurse Work Phone: [facility] 06-08-2022 09:57-0500 Body temperature 96.01 [degF] Chun Brewster MD Work Phone: [facility] 06-08-2022 09:57-0500 Body weight 94.17 kg Chun Brewster MD Work Phone: [facility] 06-08-2022 09:57-0500 Diastolic blood pressure 84 mm[Hg] Chun Brewster MD Work Phone: [facility] 06-08-2022 09:57-0500 Heart rate 82 /min Chun Brewster MD Work Phone: [facility] 06-08-2022 09:57-0500 Respiratory rate 18 /min Chun Brewster MD Work Phone: [facility] 06-08-2022 09:57-0500 SaO2% (BldA) [Mass fraction] 96 % Chun Brewster MD Work Phone: [facility] 06-08-2022 09:57-0500 Systolic blood pressure 156 mm[Hg] Chun Brewster MD Work Phone: [facility] 05-24-2022 12:38-0500 Body height 172.7 cm Stefan Moore MD Work Phone: [facility] 05-24-2022 12:38-0500 Body weight 94.8 kg Stefan Moore MD Work Phone: [facility] 05-24-2022 12:38-0500 Diastolic blood pressure 58 mm[Hg] Stefan Moore MD Work Phone: [facility] 05-24-2022 12:38-0500 Heart rate 61 /min Stefan Moore MD Work Phone: [facility] 05-24-2022 12:38-0500 SaO2% (BldA) [Mass fraction] 97 % Stefan Moore MD Work Phone: [facility] 05-24-2022 12:38-0500 Systolic blood pressure 150 mm[Hg] Stefan Moore MD Work Phone: [facility] 05-02-2022 12:04-0500 Body temperature 97.81 [degF] Yadira Chaudhry MD Work Phone: [facility] 05-02-2022 12:04-0500 Body weight 96.62 kg Yadira Chaudhry MD Work Phone: [facility] 05-02-2022 12:04-0500 Diastolic blood pressure 67 mm[Hg] Yadira Chaudhry MD Work Phone: [facility] 05-02-2022 12:04-0500 Heart rate 85 /min Yadira Chaudhry MD Work Phone: [facility] 05-02-2022 12:04-0500 Systolic blood pressure 154 mm[Hg] Yadira Chaudhry MD Work Phone: [facility] 04-07-2022 10:09-0400 Body temperature 99.19 [degF] NA King PA-C Work Phone: [facility] 04-07-2022 10:09-0400 Diastolic blood pressure 58 mm[Hg] NA King PA-C Work Phone: [facility] 04-07-2022 10:09-0400 Heart rate 84 /min NA King PA-C Work Phone: [facility] 04-07-2022 10:09-0400 Respiratory rate 20 /min NA King PA-C Work Phone: [facility] 04-07-2022 10:09-0400 SaO2% (BldA) [Mass fraction] 94 % NA King PA-C Work Phone: [facility] 04-07-2022 10:09-0400 Systolic blood pressure 126 mm[Hg] NA King PA-C Work Phone: [facility] 03-28-2022 15:46-0400 Body temperature 98.4 [degF] NA King PA-C Work Phone: [facility] 03-28-2022 15:46-0400 Diastolic blood pressure 60 mm[Hg] NA King PA-C Work Phone: [facility] 03-28-2022 15:46-0400 Heart rate 84 /min NA King PA-C Work Phone: [facility] 03-28-2022 15:46-0400 Respiratory rate 20 /min NA King PA-C Work Phone: [facility] 03-28-2022 15:46-0400 SaO2% (BldA) [Mass fraction] 97 % NA King PA-C Work Phone: [facility] 03-28-2022 15:46-0400 Systolic blood pressure 130 mm[Hg] NA King PA-C Work Phone: [facility] 02-14-2022 14:37-0400 Body weight 97.98 kg Stefan Moore MD Work Phone: [facility] 02-14-2022 14:37-0400 Diastolic blood pressure 66 mm[Hg] Stefan Moore MD Work Phone: [facility] 02-14-2022 14:37-0400 Heart rate 83 /min Stefan Moore MD Work Phone: [facility] 02-14-2022 14:37-0400 Respiratory rate 16 /min Stefan Moore MD Work Phone: [facility] 02-14-2022 14:37-0400 SaO2% (BldA) [Mass fraction] 98 % Stefan Moore MD Work Phone: [facility] 02-14-2022 14:37-0400 Systolic blood pressure 132 mm[Hg] Stefan Moore MD Work Phone: [facility] 01-31-2022 13:46-0400 Body weight 102.06 kg Stefan Moore MD Work Phone: [facility] 01-31-2022 13:46-0400 Diastolic blood pressure 62 mm[Hg] Stefan Moore MD Work Phone: [facility] 01-31-2022 13:46-0400 Heart rate 68 /min Stefan Moore MD Work Phone: [facility] 01-31-2022 13:46-0400 Systolic blood pressure 124 mm[Hg] Stefan Moore MD Work Phone: [facility] 01-24-2022 11:41-0400 Diastolic blood pressure 60 mm[Hg] Flor Moorehof DIRECTOR OF EARLY CHILDHOOD EDUCATION.SPARMAKER Work Phone: [facility] 01-24-2022 11:41-0400 Heart rate 77 /min Flor Naiduf DIRECTOR OF EARLY CHILDHOOD EDUCATION.SPARMAKER Work Phone: [facility] 01-24-2022 11:41-0400 Respiratory rate 16 /min Flor Moorehof DIRECTOR OF EARLY CHILDHOOD EDUCATION.SPARMAKER Work Phone: [facility] 01-24-2022 11:41-0400 SaO2% (BldA) [Mass fraction] 98 % Flor Moorehof DIRECTOR OF EARLY CHILDHOOD EDUCATION.SPARMAKER Work Phone: [facility] 01-24-2022 11:41-0400 Systolic blood pressure 114 mm[Hg] Flor Moorehof DIRECTOR OF EARLY CHILDHOOD EDUCATION.SPARMAKER Work Phone: [facility] 01-14-2022 12:01-0400 Body temperature 97.2 [degF] Ana Bell DIRECTOR OF EARLY CHILDHOOD EDUCATION.SPARMAKER Work Phone: [facility] 01-14-2022 12:01-0400 Body weight 101.42 kg Ana Bell APRN.SPARMAKER Work Phone: [facility] 01-14-2022 12:01-0400 Diastolic blood pressure 72 mm[Hg] Ana Bell APRN.SPARMAKER Work Phone: [facility] 01-14-2022 12:01-0400 Heart rate 79 /min Ana Bell APRN.SPARMAKER Work Phone: [facility] 01-14-2022 12:01-0400 Respiratory rate 18 /min Ana Bell APRN.SPARMAKER Work Phone: [facility] 01-14-2022 12:01-0400 SaO2% (BldA) [Mass fraction] 99 % Ana Bell APRN.SPARMAKER Work Phone: [facility] 01-14-2022 12:01-0400 Systolic blood pressure 142 mm[Hg] Ana Bell APRN.SPARMAKER Work Phone: [facility] 12-31-2021 09:46-0400 Body temperature 97.81 [degF] Stefan Moore MD Work Phone: [facility] 12-31-2021 09:46-0400 Diastolic blood pressure 58 mm[Hg] Stefan Moore MD Work Phone: [facility] 12-31-2021 09:46-0400 Heart rate 78 /min Stefan Moore MD Work Phone: [facility] 12-31-2021 09:46-0400 Respiratory rate 18 /min Stefan Moore MD Work Phone: [facility] 12-31-2021 09:46-0400 SaO2% (BldA) [Mass fraction] 97 % Stefan Moore MD Work Phone: [facility] 12-31-2021 09:46-0400 Systolic blood pressure 138 mm[Hg] Stefan Moore MD Work Phone: [facility] 12-23-2021 09:48-0400 Body temperature 97.2 [degF] NA King PA-C Work Phone: [facility] 12-23-2021 09:48-0400 Diastolic blood pressure 64 mm[Hg] NA King PA-C Work Phone: [facility] 12-23-2021 09:48-0400 Heart rate 84 /min NA King PA-C Work Phone: [facility] 12-23-2021 09:48-0400 Respiratory rate 20 /min NA King PA-C Work Phone: [facility] 12-23-2021 09:48-0400 SaO2% (BldA) [Mass fraction] 97 % NA King PA-C Work Phone: [facility] 12-23-2021 09:48-0400 Systolic blood pressure 136 mm[Hg] NA King PA-C Work Phone: [facility] 10-04-2021 16:04-0400 Body temperature 98.49 [degF] Yadira Chaudhry MD Work Phone: [facility] 10-04-2021 16:04-0400 Body weight 103.87 kg Yadira Chaudhry MD Work Phone: [facility] 10-04-2021 16:04-0400 Diastolic blood pressure 72 mm[Hg] Yadira Chaudhry MD Work Phone: [facility] 10-04-2021 16:04-0400 Heart rate 76 /min Yadira Chaudhry MD Work Phone: [facility] 10-04-2021 16:04-0400 SaO2% (BldA) [Mass fraction] 97 % Yadira Chaudhry MD Work Phone: [facility] 10-04-2021 16:04-0400 Systolic blood pressure 164 mm[Hg] Yadira Chaudhry MD Work Phone: [facility] Encounters Encounter Date Encounter Type Care Provider Facility Start: 06-29-2023 End: 06-29-2023 [facility] DION CHAVARRIA Facility:[facility] Start: 06-16-2023 End: 06-17-[address] ETHEL OCHOA MD Facility:[facility] Start: 06-16-2023 End: 06-16-[address] ETHEL OCHOA MD [facility] Start: 06-15-2023 End: 06-16-2023 ambulatory [facility] Facility:[facility] Start: 06-08-2023 End: 06-08-2023 ambulatory [facility] Facility:[facility] Start: 06-01-2023 End: 06-01-2023 ambulatory [facility] Facility:[facility] Start: 05-25-2023 End: 05-25-2023 ambulatory [facility] Facility:[facility] Start: 05-11-2023 End: 05-11-2023 ambulatory Treatment Rm 12 Hua [facility] Work Phone: Hematology/Oncology Procedures Date Procedure Procedure Detail Performing Clinician Start: 01-20-2023 Radex toe minimum 2 views Dali Sepulveda Work Phone: Start: 03-28-2022 Radiologic exam ches t 2 views M Tyree King PA-C Work Phone: Start: 01-24-2022 Dup-scan xtr veins unilateral/limited study Flor Boyle DIRECTOR OF EARLY CHILDHOOD EDUCATION.SPARMAKER Work Phone: Start: 01-12-2022 Mri spinal canal lum bar w/o contrast material [facility] Provider Start: 04-20-2021 Adult depression screening assessment Mi Nurse Work Phone: Carpal tunnel syndro me (disorder) DR ETHEL OCHOA MD Plan of Treatment Date Care Activity Detail Author Start: 12-16-2023 Hepatitis B screening URINE ALBUMIN:CREATININE RATIO [facility] Start: 09-27-2023 Glaucoma screening Dilated Retinal Exam [facility] Start: 09-27-2023 Hepatitis C antibody, confirmatory test DILATED RETINAL EXAM [facility] Start: 09-01-2023 Hepatitis B surface antibody level LDL CHOLESTEROL [facility] Start: 06-12-2023 End: 08-12-2023 Hemoglobin A1c in Blood HGB A1C Lab Routine Type 2 diabetes mellitus 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 peripheral angiopathy without gangrene, without long-term current use of insulin (HCC) Type 2 diabetes mellitus with stage 3b chronic kidney disease, without long-term current use of insulin (HCC) Expected: 06/12/2023, Expires: 08/12/2023 [facility] Work Phone: Immunizations Immunization Date Immunization Notes Care Provider Fa [facility] 10-20-2022 COVID-19 vaccine, ag e 12+ yr, bivalent (PFIZER-BIONTECH) Fito Saenz MD Work Phone: [facility] Work Phone: 02-24-2022 COVID-19 booster vaccine, age 12+ yr, bivalent (PFIZER-BIONTECH) Yadira Chaudhry MD Work Phone: [facility] Work Phone: 02-24-2022 influenza, high-dose , quadrivalent vaccine (FLUZONE HIGH DOSE QUADRIVALENT) Yadira Chaudhry MD Work Phone: [facility] Work Phone: 02-24-2022 influenza virus vacc ine, unspecified formulation Stefan Moore MD Work Phone: [facility] 03-29-2021 influenza, high-dose , quadrivalent vaccine (FLUZONE HIGH DOSE QUADRIVALENT) Ia Nurse Work Phone: [facility] 08-12-2020 COVID-19 vaccine, fu ll dose (MODERNA) Ia Nurse Work Phone: [facility] 07-16-2020 COVID-19 vaccine, fu ll dose (MODERNA) Ia Nurse Work Phone: [facility] 05-25-2020 zoster vaccine recombinant Stefan Moore MD Work Phone: [facility] 03-14-2020 influenza (aIIV4) vaccine, age 65+ yr, quadrivalent, PF (FLUAD QUADRIVALENT) Stefan Moore MD Work Phone: [facility] 03-14-2020 zoster vaccine recombinant Ia Nurse Work Phone: [facility] 03-05-2020 influenza, seasonal, injectable, preservative free Stefan Moore MD Work Phone: [facility] 02-18-2020 influenza, high dose seasonal, preservative-free Mi Nurse Work Phone: [facility] 03-11-2019 influenza, high dose seasonal, preservative-free Mi Nurse Work Phone: [facility] Work Phone: 02-26-2018 influenza, high dose seasonal, preservative-free Mi Nurse Work Phone: [facility] Work Phone: 05-09-2017 influenza, high dose seasonal, preservative-free Mi Nurse Work Phone: [facility] 03-05-2017 influenza, seasonal, injectable, preservative free Stefan Moore MD Work Phone: [facility] 04-07-2016 influenza, high dose seasonal, preservative-free Mi Nurse Work Phone: [facility] 04-06-2015 influenza, high dose seasonal, preservative-free Mi Nurse Work Phone: [facility] 10-07-2014 pneumococcal conjuga te vaccine, 13 valent Mi Nurse Work Phone: [facility] 03-14-2014 influenza, seasonal, injectable Mi Nurse Work Phone: [facility] 04-02-2013 influenza virus vacc ine, unspecified formulation Mi Nurse Work Phone: [facility] 03-05-2013 influenza, seasonal, injectable, preservative free Stefan Moore MD Work Phone: [facility] 04-02-2012 influenza virus vacc ine, unspecified formulation Mi Nurse Work Phone: [facility] 03-21-2012 zoster vaccine, live Mi Nurs e Work Phone: [facility] Work Phone: 06-03-2010 influenza virus vacc ine, unspecified formulation Mi Nurse Work Phone: [facility] 06-03-2010 pneumococcal polysaccharide vaccine, 23 valent Ia Nurse Work Phone: [facility] 05-13-2008 influenza virus vacc ine, unspecified formulation Mi Nurse Work Phone: [facility] Work Phone: 04-04-2007 influenza virus vacc ine, unspecified formulation Mi Nurse Work Phone: [facility] Work Phone: 03-15-2007 diphtheria and tetan us toxoids, adsorbed for pediatric use Mi Nurse Work Phone: [facility] Work Phone: 04-26-2005 influenza virus vacc ine, unspecified formulation Mi Nurse Work Phone: [facility] 05-17-2000 pneumococcal polysaccharide vaccine, 23 valent Ia Nurse Work Phone: [facility] Work Phone: 03-17-1997 diphtheria and tetan us toxoids, adsorbed for pediatric use Ia Nurse Work Phone: [facility] Work Phone: Payers Date Payer Category Payer Medicaid [id number] 2021 Medicare [employer] MEDICARE A ETNA MEDICARE PPO [id number] 2021-Present [phone] [address] [place] [address] PPO [id number] 2021 Medicare [employer] MEDICARE A ETNA MEDICARE PPO [id number] 2021-Present [phone] [address] [place] [address] PPO [id number] 2021 Private Health Insurance 101 [id number] 1940 Unknown [id number] Medicare [id number] Social History Date Type Detail Facility Start: 11-09-2010 End: 06-16-2023 Tobacco smoking status NHIS Never smoked tobacco [facility] Start: 08-02-2021 End: 05-11-2023 Alcohol intake Current non-drinker of alcohol (finding) [facility] Start: 1940 Sex Assigned At Not on file C [facility] Start: 08-16-2021 End: 05-02-2022 Exposure to SARS-CoV-2 (event) Not sure [facility] Start: 11-09-2010 Tobacco use and exposure Smokeless tobacco non-user [facility] Work Phone: Start: 10-12-2022 End: 12-10-2022 History of Social function [facility] Work Phone: Start: 10-12-2022 End: 12-10-2022 Tobacco use panel [facility] Work Phone: Adult Depression Screening Assessment 2 [facility] Work Phone: Sex Assigned At Sex [facility] Medical Equipment Procedure Code Equipment Code Equipment Origin al Text Equipment Identifier Dates Start: 02-10-2015 End: 09-23-2022 Functional Status Date Assessment Result Facility 06-16-2023 Functional Status Sensory Deficits None A [facility] Clinical Notes 11-10-2017 to 06-15-2023 Telephone Encounter - Chacha Ferris - 05/18/2023 4:45 PM ESTTelephone Encounter - Goodman 05/18/2023 11:16 AM ESTTelephone Encounter - Goodman - 05/16/2023 10:27 AM EST Note Date & Type Note Facility 06-15-2023 Note [facility] 05-18-2023 Miscellaneous Notes Patient called back [...] to the 4th dose of Venofer. Flavia Chung, RN Check out comments: [Please set up venofer 200 mg infusions every 5-7 days x 4 doses scheduled Labs cbc and iron panel prior to 4th dose venofer scheduled After the venofer we can schedule aranesp injections every 2 weeks cbc prior to each aranesp SCHEDULED Please advise on when pt should have follow up OV Thank you! documented in this encounter [facility] 05-11-2023 Note [facility] 05-11-2023 Note [facility] 05-11-2023 Note [facility] 05-11-2023 Miscellaneous Notes Patient on 1st time treatment report-non oncology regimen (venofer) Patient holds medicare coverage and no FA available for this treatment. documented in this encounter [facility] 05-11-2023 History of Present illness Narrative Last [...] nail care. She currently is living at [facility] where she is receiving rehab for a tibia fx. She plans to return home once she can ambulate. She presents in wheelchair. documented in this encounter [facility] 05-11-2023 Instructions Dali Sepulveda - 05/11/2023 3:49 [...] (or decreased sensation in your feet) a bone crusher should always cut your toenails. Be Careful [...] Go to your health care provider or bone crusher to treat these conditions. documented in this encounter [facility] 05-11-2023 Note HNO ID: [id number] Author: Nadiya Lucas LPN Service: ? Author Type: LICENSED NURSE Type: Progress Notes Filed: 05/22/2023 9:30 AM Note Text: Est. Pt. OV prior to Venofer infusion today. Nadiya Lucas LPN [facility] 05-11-2023 History of Present illness Narrative Pt refused observation due to bone crusher appt at 1500 today. States that she feels fine after the infusion and will be in the building if something were to happen. Denies ever having a reaction with prior iron infusions. Delmi Landrum RN documented in this encounter [facility] 05-11-2023 Note [facility] 05-01-2023 Note [facility] 05-01-2023 History of Present illness Narrative [...] received a small bowel capsule endoscopy at [place] she was also negative. Her transferrin saturation [...] for blood per pt. .labs from [facility] reviewed, hgb low 8 range there. 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 Nvomelb-Vap-Urr Red* Other: See Comments myopathy Vytorin 10-10 [...] Sodium Chloride (Deep Sea Nasal) 0.65 % Aerosol,[place] Active 2 SPRAY NASAL EVERY 4 HOURS [...] (Patient not taking: Reported on 04/05/2023) Insulin [place], Disposable, (BD ULTRA-FINE HORTENCIA PEN NEEDLE) 32 [...] which included preparing to see the patient, lkit-qb-edgc patient care, completing clinical documentation, obtaining and/or reviewing separately obtained history, performing a medically appropriate examination, counseling and educating the patient/family/caregiver, ordering medications, tests, or procedures, independently interpreting results (not separately reported), and communicating results to the patient/family/caregiver. Electronically Signed: Dion Chavarria MD May 01, 2023 documented in this encounter [facility] 04-05-2023 Note [facility] 04-05-2023 History of Present illness Narrative Patient presents with: Hospital F/U HPI: Patient presents today for office visit for hospital follow up. -was requested for surgical clearance by [facility]. Hospitalized for fracture of the right tibial shaft. Moved to [facility] for rehab. Had labs done currently at [facility]. Discussed that her clearance should usually should come from her in house doctor at [facility]. They are monitoring labs. They were concerned about her renal function has had anemia of chronic disease and ckd and had seen nephrology, Dr. Benavidez at [facility] previously. She had elected to follow with us up until her accident instead of traveling to nephrology out of the area. Also seeing [facility] hematology for her anemia. Discussed [...] Sodium Chloride (Deep Sea Nasal) 0.65 % Aerosol,[place] Active 2 SPRAY NASAL EVERY 4 HOURS [...] mouth every 8 hours as needed. 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 Final clearance would also need to be obtained from her primary care physician currently in charge of her care at [place], Dr. Sharpe. She would need clearance from Cardiology. If her renal function remains poor, she may need clearance from nephrology. She has previously seen Dr. Benavidez at [facility]. She also may need clearance from [facility] hematology here in [place]. She is on cpap so that will [...] Stefan Moore MD Rto once discharged from [facility]. documented in this encounter [facility] 03-30-2023 Miscellaneous Notes Spoke with pt and she is still at [facility]. a 40 min Hospital FU booked for 04-06-23. Pt is checking with [place] regarding transportation. Brittany Colby LPN TC to pt, left message to return call to office. Yusuf You LPN Needs follow up visit.-40 minute hospital/ECF follow up Type of form: Surgery Clearance Form received via fax When form is completed, Fax form to [phone] Form has been forwarded to Physician Desk: Dr. Oscar Francis LPN Pt calls to report she had appt with [facility] today for fracture of tibia and fibula. Pt reports she fell at the beginning of Feb. Pt reports she did break the bone near the knee. Pt reports she has to have surgery and [facility] is going to send OV notes to pcp. HERO Rodriguez at [facility] advised pt that kidney function is not good and pt needs to f/u with kidney specialist. Pt wanted Dr. Moore to know what is going on. Kaycee Contreras LPN documented in this encounter [facility] 01-20-2023 Note [facility] 01-20-2023 Note [facility] 01-20-2023 Note [facility] 01-20-2023 History of Present illness Narrative [...] 2023 2:51 PM documented in this encounter [facility] 01-13-2023 Note [facility] 01-13-2023 History of Present illness Narrative Patient presents for B-12 injection. Denies any problems at this time. Patient instructed on any SE of medication, verbalized understanding and agreed to proceed with treatment. Tolerated injection well. Erica [place] LPN documented in this encounter [facility] 01-10-2023 Note [facility] 01-10-2023 History of Present illness Narrative [...] received a small bowel capsule endoscopy at [place] she was also negative. 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 ^Disp: ^Rfl: Insulin [place], Disposable, (BD ULTRA-FINE HORTENCIA PEN NEEDLE) 32 [...] which included preparing to see the patient, dwrt-er-onqh patient care, completing clinical documentation, obtaining and/or reviewing separately obtained history, performing a medically appropriate examination, counseling and educating the patient/family/caregiver, ordering medications, tests, or procedures, independently interpreting results (not separately reported), and communicating results to the patient/family/caregiver. Electronically Signed: Dion Chavarria MD January 10, 2023 12:24 PM documented in this encounter [facility] 01-02-2023 Note [facility] 01-02-2023 Instructions Marii Ruiz, DAREN - 01/02/2023 1:25 PM EDT Change to soy milk in cereal Change to lower carb protein supplements, aim for 3 per day Premier, Corelife, Fair life, Equate Watch sodium intake aim for ~1500 mg sodium, refer to handout provided Consider seated exercises as available on Youtube Include protein in meals, meat, cheeses etc. documented in this encounter [facility] 01-02-2023 History of Present illness Narrative Nutrition [...] been trying to lose weight, belongs to [employer]. Has a goal weight of 190. Intake [...] usually Lunch - sandwich roast beef and qatari, or left overs and fruit; Boost Snack [...] limitations affecting learning: None Referred/Supervised by: Oscar/Oscar VADLEZ Billing Type: Initial Assess/15 min 2 units SIGNATURE: Marii Ruiz RD PATIENT NAME: Coni Romero DATE: January 02, 2023 TIME: 1:00 PM documented in this encounter [facility] 12-22-2022 Miscellaneous Notes Patient has been identified [...] 12/10/2022 140/58 Please advise. Thank you. Camryn Kumar RN documented in this encounter [facility] 12-19-2022 Miscellaneous Notes Order was released for the urine micro. Will need a new order please. documented in this encounter [facility] 12-16-2022 Note [facility] 12-16-2022 History of Present illness Narrative Patient presents for B-12 injection. Denies any problems at this time. Patient instructed on any SE of medication, verbalized understanding and agreed to proceed with treatment. Tolerated injection well. Erica [place] LPN documented in this encounter [facility] 12-12-2022 Miscellaneous Notes Faxed to [facility]. Her labs are actually significantly better. Fax copy of labs to her ortho documented in this encounter [facility] 12-10-2022 Note [facility] 12-10-2022 History of Present illness Narrative [...] mouth every 8 hours as needed. 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 3. Cardiomyopathy, nonischemic [...] Stefan Moore MD documented in this encounter [facility] 11-17-2022 Note [facility] 11-17-2022 History of Present illness Narrative Patient presents for B-12 injection. Denies any problems at this time. Patient instructed on any SE of medication, verbalized understanding and agreed to proceed with treatment. Tolerated injection well. Erica [place] LPN documented in this encounter [facility] 11-10-2022 Note [facility] 11-09-2022 Miscellaneous Notes Scheduled appointment with [...] less than 10. documented in this encounter [facility] 11-07-2022 Note [facility] 11-07-2022 Instructions Monae Bowser APRN.OTIS - 11/07/2022 2:03 PM EDT Get the labwork. Finish the prednisone. Continue to watch sugars. documented in this encounter [facility] 11-07-2022 History of Present illness Narrative This [...] <AGE 12 Tonsillectomy ALLERGIES Iodine, Metformin, Simvastatin, Ttbizby-Mgu-Sca Reductase Inhibitors, and Vytorin 10-10 [Ezetimibe-Simvastatin] MEDICATIONS [...] mouth every 8 hours as needed. Insulin [place], Disposable, (BD ULTRA-FINE HORTENCIA PEN NEEDLE) 32 [...] with the plan. documented in this encounter [facility] 10-31-2022 Note [facility] 10-31-2022 History of Present illness Narrative Virtualist Progress Note Triage Call Triage source: Triage Call (Nurse Lead Web Developer, [facility] Triage, [facility] Phone Triage) Was patient downgraded (i.e. disposition other than go to the ED was advised)? No Mode of contact (phone call, [employer], Press, [employer], Skype, other): phone History/Physical Exam: The patient was seen on October 25 for nasal congestion, sinus pressure, and headache. Chest x-ray was negative. Was prescribed prednisone and doxycycline. Last night, the patient developed severe weakness which has persisted. At this point, she is unable to walk. Her daughter called nurse education associate and was given a call 911 disposition. Relative is home and willing to take her to the emergency room, so I told the nurse to advise the family that they can take her to the emergency room. Nurse Triage Disposition (If call is from [facility], [facility] nurse triage, or an Express Care, the disposition is Go to ED Now ): Call EMS ([phone]) Now Virtualist Recommended Disposition: Go to ED Signed in as Primary Virtualist, Secondary Virtualist, or [facility] Telehealth provider: Secondary SIGNATURE: Fito Saenz MD PATIENT NAME: Coni Romero DATE: October 31, 2022 documented in this encounter [facility] 10-31-2022 Miscellaneous Notes Reason for Call: Patient [...] prefers to have niece drive her to [place] ER. [facility] called and spoke to Virtualist, Dr. Fito Saenz, who okayed niece driving patient to ER now. Notified patient of same, they will leave now. Reason for Disposition [1] SEVERE weakness (i.e., unable to walk or barely able to walk, requires support) AND [2] new-onset or worsening Protocols used: Weakness (Generalized) and Foomura-KIGFB-DJ documented in this encounter [facility] 2022 Note [facility] 2022 Note [facility] 10-20-2022 Note [facility] 10-14-2022 Miscellaneous Notes Pt notified. She verbalized understanding. Yusuf oYu LPN She was a little anemic on her labs, but appears stable. I would follow ortho's recommendations, as they want everything to be optimized prior to surgery. Monae Bowser APRN.OTIS Patient calls and states that she was [...] Chacha Smith RN documented in this encounter [facility] 10-12-2022 Note [facility] 10-12-2022 Note [facility] 10-12-2022 Note [facility] 10-12-2022 History of Present illness Narrative [...] Objective: [facility] Vasc: DP and PT pulses are palpable [...] problems to feet. documented in this encounter [facility] 10-06-2022 Miscellaneous Notes Patient has been identified by name and date of :YES Requested Prescriptions Pending Prescriptions Disp Refills levothyroxine (SYNTHROID) 137 mcg tablet 90 tablet 3 Sig: Take 1 tablet by mouth once daily. Take on empty stomach. For thyroid. RX INSTRUCTIONS: Patient aware RX will be sent to pharmacy. No need to notify patient. Annel Willingham [employer] Electronically signed by [facility]illingham [facility] 10/06/2022 9:03 AM EDT documented in this encounter [facility] 09-30-2022 Miscellaneous Notes Form received. Will complete at OV. Yusuf You LPN Type of form: Surgery Clearance Patient has appt on 10/19/2022 Form received via fax When form is completed, Fax form to [phone] Form has been forwarded to Physician Mailbox: OTIS Ramirez LPN documented in this encounter [facility] 09-23-2022 Miscellaneous Notes Patient has been identified [...] to pharmacy. Please call once sent. Ebony Manzano [facility] documented in this encounter [facility] 09-22-2022 Note [facility] 09-22-2022 History of Present illness Narrative Patient presents for B-12 injection. Denies any problems at this time. Patient instructed on any SE of medication, verbalized understanding and agreed to proceed with treatment. Tolerated injection well. Erica [place] LPN documented in this encounter [facility] 09-05-2022 Miscellaneous Notes Patient has been identified by name and date of : Yes Requested Prescriptions Pending Prescriptions Disp Refills Lancets lancets 100 Each 11 Sig: Test glucose 2x/daily, 250.02, insulin use: yes RUSSEL-08/23/22 Labs-08/31/22 NOV-02/23/23 RX INSTRUCTIONS: Patient aware RX will be sent to pharmacy. No need to notify patient. Meredith Earnestine Pss documented in this encounter [facility] 08-23-2022 Note [facility] 08-23-2022 Miscellaneous Notes Addended by: STEFAN MOORE on: 08/23/2022 03:49 PM Modules accepted: Orders documented in this encounter [facility] 08-23-2022 History of Present illness Narrative Patient [...] 1.00 - 4.00 k/uL 0.93 (L) 1.48 [place]% % 7.0 5.7 Abs [place] <0.87 k/uL 0.35 0.37 Eosin% % 4.2 [...] mouth every 8 hours as needed. 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 - BASIC METABOLIC PNL - HGB A1C 2. Paroxysmal atrial fibrillation ([facility]) - ICD9: 427.31, ICD10: I48.0 - doing well. 3. Pure hypercholesterolemia - ICD9: 272.0, ICD10: E78.00 - follow labs. 4. Type 2 diabetes mellitus 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 peripheral angiopathy without gangrene, without long-term current use of insulin ([facility]) - ICD9: 250.70, 443.81, ICD10: E11.51 - Controlled - Continue current medications - ALBUMIN/CREAT RATIO RND UR 5. DAYANA (obstructive sleep apnea) - ICD9: 327.23, ICD10: G47.33 - on cpap 6. B12 deficiency - ICD9: 266.2, ICD10: E53.8 - VITAMIN B12 BLOOD 7. Type 2 diabetes mellitus with stage 3b chronic kidney disease, without long-term current use of insulin ([facility]) - ICD9: 250.40, 585.3, ICD10: E11.22, N18.32 - monitor labs. 8. Hyperparathyroidism due to vitamin D deficiency ([facility]) - ICD9: 252.02, ICD10: E21.1 - VITAMIN [...] Stefan Moore MD documented in this encounter [facility] 08-03-2022 Note [facility] 08-01-2022 Note [facility] 07-25-2022 Note [facility] 07-25-2022 History of Present illness Narrative Domingo Knutson MD Department of Orthopaedics Orthopaedics [address] [facility] [address] Dept: [phone] Dept July 25, 2022 CHIEF COMPLAINT: New and Pain of the Left Hand HPI Patient here today for left middle finger. She denies any pain. States she fell about 6 weeks ago and put her hand out to catch herself. She was seen at the [facility] and x-ray taken. She states all [...] DEGENERATIVE CHANGE, JOINT SPACE NARROWING AND OSTEOPHYTOSIS. Music Box Mechanic: TERESA Transcribe Date/Time: Jun 10 2022 12:09P [...] 1 MILLILITER INTRAMUSCULARLY ONCE A MONTH Insulin [place], Disposable, (BD ULTRA-FINE HORTENCIA PEN NEEDLE) 32 [...] q 4 WEEKS Allergies: Iodine, Metformin, Simvastatin, Rkxvlbd-Ddb-Wgm Reductase Inhibitors, and Vytorin 10-10 [Ezetimibe-Simvastatin] ROS: [...] requesting physician via [place] mail. Chun Brewster [address] [facility] [id number] Stefan Moore MD [address] [facility] [address] Domingo Knutson MD documented in this encounter [facility] 07-13-2022 Miscellaneous Notes Patient notified. Verbalized understanding. [...] Erica [place] LPN documented in this encounter [facility] 07-13-2022 Note [facility] 07-13-2022 History of Present illness Narrative [...] Erica [place] LPN documented in this encounter [facility] 07-01-2022 Note [facility] 07-01-2022 Note HNO ID: [id number] Author: Carly Landrum RN Service: ? Author Type: ? Type: Progress Notes Filed: 07/01/2022 3:06 PM Note Text: Patient presents with: Left Foot - Established Patient, Diabetic Foot Care Right Foot - Established Patient, Diabetic Foot Care [facility] 07-01-2022 History of Present illness Narrative [...] Objective: Patient presents to clinic ambulating in [facility] Vasc: DP and PT pulses are faintly [...] Diabetic Foot Care documented in this encounter [facility] 07-01-2022 Instructions Dali Sepulveda - 07/01/2022 2:50 [...] (or decreased sensation in your feet) a bone crusher should always cut your toenails. Be Careful [...] Go to your health care provider or bone crusher to treat these conditions. documented in this encounter [facility] 06-29-2022 Miscellaneous Notes Spoke with patient. Explained [...] Erica [place] LPN documented in this encounter [facility] 06-28-2022 History of Present illness Narrative Patient [...] Erica [place] LPN documented in this encounter [facility] 06-10-2022 Miscellaneous Notes Called patient went over xray results. She will make her follow up appt now with ortho. Patient was okay with this. documented in this encounter [facility] 06-08-2022 History of Present illness Narrative Patient [...] 8 hours as needed. 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 [place] [facility] came to check her out everything was fine, but this am she is unable to bend her middle finger some swelling just does not know what hand. Nurse is going to have patient report to our [facility] care. documented in this encounter [facility] 06-07-2022 Miscellaneous Notes Letter set on provider's [...] Chacha Smith RN documented in this encounter [facility] 05-24-2022 Miscellaneous Notes Addended by: STEFAN MOORE on: 05/24/2022 01:19 PM Modules accepted: Orders documented in this encounter [facility] 05-24-2022 History of Present illness Narrative Patient [...] mouth every 8 hours as needed. 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 Denies any problems at this time. Patient instructed on any SE of medication, verbalized understanding and agreed to proceed with treatment. Tolerated injection well. Erica [place] LPN documented in this encounter [facility] 05-02-2022 History of Present illness Narrative PATIENT NAME: Coni Romero. CLINIC NO: [id number]. ATTENDING PHYSICIAN: Yadira Chaudhry MD. DATE OF [...] her anemia and she was admitted to [place] in July. She underwent both an upper and lower endoscopy which did not reveal any obvious bleeding source. She subsequently was sent to [place] where she had a capsule endoscopy which [...] Lymph 1.00 - 4.00 k/uL 0.93 (L) [place]% % 7.0 Abs [place] <0.87 k/uL 0.35 Eosin% % 4.2 Abs [...] Dr. Stefan Moore documented in this encounter [facility] 04-08-2022 Miscellaneous Notes Patient is scheduled for [...] would proceed with current medications. Pharmacist from [facility] calls and states that patient is on amiodarone which has a reaction with both Levaquin and fluconazole. These medications taken together and cause a prolong QT interval and can cause an arrhyhtmia. Please review and advise, Chacha Smith RN documented in this encounter [facility] 04-07-2022 Instructions Mason King PA-C - 04/07/2022 [...] in 10 days. documented in this encounter [facility] 04-07-2022 History of Present illness Narrative 81 [...] Gait Statin Myopathy Pvd (Peripheral Vascular Disease) ([facility]) Gout With Manifestations B12 Deficiency Pure Hypercholesterolemia [...] mouth every 8 hours as needed. Insulin [place], Disposable, (BD ULTRA-FINE HORTENCIA PEN NEEDLE) 32 [...] Mason King PA-C documented in this encounter [facility] 04-06-2022 Miscellaneous Notes nurse calling on behalf of patient stating patient has persistent cough and possible oral thrush. Scheduled appointment for patient tomorrow AM. Karissa Harden, RN documented in this encounter [facility] 04-01-2022 Miscellaneous Notes See other mychart. Pt received message TC to pt, phone rings busy. Yusuf You LPN 03/30/2022 result note Bart Newberry, Your chest x-ray does show right lower [...] results of xray documented in this encounter [facility] 03-29-2022 Miscellaneous Notes Arlene with [facility] called for last office visit to be faxed to [phone]. Pt was identified by name and date of . Done. Brittany Colby LPN documented in this encounter [facility] 03-29-2022 Miscellaneous Notes Changed to TE documented in this encounter [facility] 03-29-2022 Miscellaneous Notes Patient has been identified [...] Darling Guo RN documented in this encounter [facility] 03-28-2022 Instructions M Tyree King PA-C - 03/28/2022 4:18 PM EDT Acute Bronchitis What is acute bronchitis? Acute bronchitis is an infection of the bronchial (say: dowcz-iqx-lso ) tree. The bronchial tree is made [...] subject, talk to your family doctor. Copyright [id number] [employer] Permission is granted [...] its stimulant effects. documented in this encounter [facility] 03-28-2022 History of Present illness Narrative 81 [...] blood or mucus. Patient took Imodium AD jaes-qhj-hdznofd twice which seemed to slow it down. Today she has had approximately 3 smaller watery diarrhea stools. No vomiting. Presents home COVID testing x2 which were negative. Also identifies that she took DayQuil and Coricidin which did not seem to help. Last night she got concerned because she did not have the strength to stand called racheal, 03/27/2022 presented to [place] with, chills, body aches since yesterday as [...] mouth every 8 hours as needed. Insulin [place], Disposable, (BD ULTRA-FINE HORTENCIA PEN NEEDLE) 32 [...] Mason King PA-C documented in this encounter [facility] 03-24-2022 History of Present illness Narrative Patient presents for B-12 injection. Denies any problems at this time. Patient instructed on any SE of medication, verbalized understanding and agreed to proceed with treatment. Tolerated injection well. Erica Colorado LPN documented in this encounter [facility] 03-23-2022 History of Present illness Narrative Last [...] healing. Completed doxy. documented in this encounter [facility] 03-23-2022 Instructions Dali Sepulveda - 03/23/2022 8:23 [...] (or decreased sensation in your feet) a bone crusher should always cut your toenails. Be Careful [...] Go to your health care provider or bone crusher to treat these conditions. documented in this encounter [facility] 03-22-2022 Miscellaneous Notes Patient MyChart message requesting the following refill. Requested Prescriptions Pending Prescriptions Disp Refills gabapentin (NEURONTIN) 300 mg capsule 270 capsule 1 Sig: Take 1 capsule by mouth three times daily for 180 days. Patient last appointment: 02/14/2022 Patient Phone numbers: [phone] (home) Request is for script(s) to be escript to mail order [facility]. Chelle Watts documented in this encounter [facility] 03-07-2022 Miscellaneous Notes Brody Bermudez-a nurse with [facility] calling to state patient has been referred to them by Dr. Cortez in Cardiology. Brody asking for patient's recent OV note be faxed to [phone]. Contacted patient to verify consent, and verbal consent given. Information faxed as requested. Patricia Salazar RN documented in this encounter [facility] 03-03-2022 Miscellaneous Notes Patient has been identified [...] Lupe Vyas LPN documented in this encounter [facility] 03-01-2022 Miscellaneous Notes Lab appointment changed as directed below. Chrissy Horowitz Can you change lab appt. From 04/04/22 to 03/11/22 so orders will be in system when pt. Comes in on . Pt. Is aware. Nadiya Patterson LPN documented in this encounter [facility] 02-14-2022 History of Present illness Narrative Patient [...] mouth every 8 hours as needed. 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 Aorooly-Xng-Hqh Red* Other: See Comments myopathy Vytorin 10-10 [...] Stefan Moore MD documented in this encounter [facility] documented as of this encounter (statuses as of 02/14/2022) [facility] Narrative* Problem Noted [...] of this encounter (statuses as of 03/01/2022) [facility] Narrative* Problem Noted [...] of this encounter (statuses as of 03/03/2022) [facility] Narrative* Problem Noted [...] of this encounter (statuses as of 03/03/2022) [facility]* Problem Noted [...] of this encounter (statuses as of 03/07/2022) [facility]* Problem Noted [...] of this encounter (statuses as of 03/22/2022) [facility]* Problem Noted [...] of this encounter (statuses as of 03/24/2022) [facility]* Problem Noted [...] of this encounter (statuses as of 03/25/2022) [facility]* Problem Noted [...] of this encounter (statuses as of 03/28/2022) [facility]* Problem Noted [...] of this encounter (statuses as of 03/29/2022) [facility]* Problem Noted [...] of this encounter (statuses as of 03/29/2022) [facility]* Problem Noted [...] of this encounter (statuses as of 03/30/2022) [facility]* Problem Noted [...] of this encounter (statuses as of 04/01/2022) [facility]* Problem Noted [...] of this encounter (statuses as of 04/01/2022) [facility]* Problem Noted [...] of this encounter (statuses as of 04/06/2022) [facility]* Problem Noted [...] of this encounter (statuses as of 04/07/2022) [facility]* Problem Noted [...] of this encounter (statuses as of 04/08/2022) [facility]* Problem Noted [...] of this encounter (statuses as of 05/03/2022) [facility]* Problem Noted [...] of this encounter (statuses as of 05/24/2022) [facility]* Problem Noted [...] of this encounter (statuses as of 06/09/2022) [facility]* Problem Noted [...] of this encounter (statuses as of 06/09/2022) [facility]* Problem Noted [...] of this encounter (statuses as of 06/11/2022) [facility]* Problem Noted [...] of this encounter (statuses as of 06/28/2022) [facility]* Problem Noted [...] of this encounter (statuses as of 06/29/2022) [facility]* Problem Noted [...] of this encounter (statuses as of 07/01/2022) [facility]* Problem Noted [...] of this encounter (statuses as of 07/13/2022) [facility]* Problem Noted [...] of this encounter (statuses as of 07/13/2022) [facility]* Problem Noted [...] of this encounter (statuses as of 07/25/2022) [facility]* Problem Noted [...] of this encounter (statuses as of 08/03/2022) [facility]* Problem Noted [...] of this encounter (statuses as of 08/23/2022) [facility]* Problem Noted [...] of this encounter (statuses as of 09/05/2022) [facility]* Problem Noted [...] of this encounter (statuses as of 09/23/2022) [facility]* Problem Noted [...] of this encounter (statuses as of 09/23/2022) [facility]* Problem Noted [...] of this encounter (statuses as of 09/30/2022) [facility]* Problem Noted [...] of this encounter (statuses as of 10/06/2022) [facility]* Problem Noted [...] of this encounter (statuses as of 10/13/2022) [facility]* Problem Noted [...] of this encounter (statuses as of 10/15/2022) [facility]* Problem Noted [...] of this encounter (statuses as of 10/31/2022) [facility]* Problem Noted [...] of this encounter (statuses as of 11/08/2022) [facility]* Problem Noted [...] of this encounter (statuses as of 11/09/2022) [facility]* Problem Noted [...] of this encounter (statuses as of 11/17/2022) [facility]* Problem Noted [...] of this encounter (statuses as of 12/10/2022) [facility]* Problem Noted [...] of this encounter (statuses as of 12/13/2022) [facility]* Problem Noted [...] of this encounter (statuses as of 12/16/2022) [facility]* Problem Noted [...] of this encounter (statuses as of 12/19/2022) [facility] Problem Noted [...] of this encounter (statuses as of 12/22/2022) [facility]* Problem Noted [...] of this encounter (statuses as of 01/03/2023) [facility] Problem Noted [...] of this encounter (statuses as of 01/11/2023) [facility]* Problem Noted [...] of this encounter (statuses as of 01/13/2023) [facility]* Problem Noted [...] of this encounter (statuses as of 03/30/2023) [facility]* Problem Noted [...] of this encounter (statuses as of 04/05/2023) [facility]* Problem Noted [...] of this encounter (statuses as of 04/09/2023) [facility]* Problem Noted [...] of this encounter (statuses as of 04/09/2023) [facility]* Problem Noted [...] of this encounter (statuses as of 05/02/2023) [facility]* Problem Noted [...] of this encounter (statuses as of 05/12/2023) [facility]* Problem Noted [...] of this encounter (statuses as of 05/12/2023) [facility]* Problem Noted [...] of this encounter (statuses as of 05/12/2023) [facility]* Problem Noted [...] of this encounter (statuses as of 05/18/2023) [facility]* Telephone Encounter - Yusuf You LPN - 02/14/2022 8:41 AM EDT TC to pt, scheduled pt for appt later in the day. Yusuf You LPN [facility] Miscellaneous Notes* Telephone Encounter - Chelsea Cartwright [...] advise, Chacha Smith RN documented in [facility] History of Present illness Narrative* Stefan Moore [...] mouth every 8 hours as needed. 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 Vouezci-Rwc-Ncu Red* Other: See Comments myopathy Vytorin 10-10 [...] RTO in two weeks. documented [facility] History of Present illness Narrative* Erica Colorado LPN - 01/27/2022 1:31 PM EDT Patient presents for B-12 injection. Denies any problems at this time. Patient instructed on any SEof medication, verbalized understanding and agreed to proceed with treatment. Tolerated injection well. Erica Colorado LPN documented in [facility] Miscellaneous Notes* Telephone Encounter - Darling Guo [...] you. Flor Boyle APRN.CNP documented in [facility] History of Present illness Narrative* RT Scooter(R) [...] 24, 2022 2:04 PM documented in this encounter[facility] Instructions* Patient Instructions* Flor Boyle APRN.CNP - 01/24/2022 11:56 AM EDT 1.) Get Repeat chest xray and xray of right ankle. 2.) Schedule appointment for ultrasound of leg. 3.) Follow up pending test results or sooner as needed. May use Lasix for the next 2 days to help with leg swelling Continue to elevate the leg. documented in this encounterMem[facility] History of Present illness Narrative* Flor Boyle APRN.CNP - 01/24/2022 11:40 AM EDT This is a 81 year old female who presents today with: Patient presents with: Acute Visit: right leg swelling HISTORY OF PRESENT ILLNESS: Coni Romero is a 81 year old female. Patient presents with: Acute Visit: right leg swelling Here in the office for right leg swelling. Was seen in [facility] 01/14/2022 after injury. Initially toes very [...] <AGE 12 Tonsillectomy ALLERGIES Iodine, Metformin, Simvastatin, Dwbhxrm-Bhv-Ksy Reductase Inhibitors, and Vytorin 10-10 [Ezetimibe-Simvastatin] MEDICATIONS [...] mouth every 8 hours as needed. Insulin [place], Disposable, (BD ULTRA-FINE HORTENCIA PEN NEEDLE) 32 [...] APRN.OTIS This note was partially generated using Netstory voice recognition system. Note was reviewed for accuracy. There may be minor misspellings or grammar miscues with Net[employer] voice recognition. documented in this encounterMem[facility]22 Miscellaneous Notes* Telephone Encounter - Chelsea Cartwright LPN - 01/24/2022 9:16 AM EDT Patient scheduled. documented in this encounterMem[facility]08[facility]22 Instructions* Patient Instructions* Ana Bell APRN.CNP - 01/14/2022 12:55 PM EDT - RICE therapy - see patient instructions for further recommendations. - F/U with PCP in 5-7 days or before if worse. - Discussed Red Flag signs and when to go to ER. - Reviewed plan of care and DC papers with patient. Verbalized understanding. documented in this encounterMem[facility]08[facility] History of Present illness Narrative* Ana Bell [...] history is provided by the patient. No office 365 consultant was used. Review of Systems Constitutional: Negative. [...] <AGE 12 Tonsillectomy ALLERGIES Iodine, Metformin, Simvastatin, Wumxyim-Fcd-Ynu Reductase Inhibitors, and Vytorin 10-10 [Ezetimibe-Simvastatin] MEDICATIONS [...] 8 hours as needed. ^Disp: ^Rfl: Insulin [place], Disposable, (BD ULTRA-FINE HORTENCIA PEN NEEDLE) 32 [...] No radiographic evidence of acute osseous injury. Music Box Mechanic: TERESA Transcribe Date/Time: Jan 14 2022 12:45P Dictated by : DEE DENG MD Rest and ice and elevate foot for comfort. Give it a week or two and if it does not seem to be getting better then follow up with ortho for further evaluation. Order was placed in case it is needed. Ana Bell APRN.SPARMAKER documented in this encounterMem[facility]08-[facility]22 Miscellaneous Notes* Telephone Encounter - Chelle Watts - 01/04/2022 12:52 PM EDT Patient informed and verbalized understanding. No questions at this time. Chelle Watts * Telephone Encounter - Stefan Moore MD - 01/04/2022 12:46 PM EDT Her gfr is a little lower. Push fluids a little more and recheck bmp in two weeks documented in this encounterMem[facility]07[facility]22 History of Present illness Narrative* Stefan Moore [...] 2 days and skipping a dose per desktop publisher. ) dulaglutide (TRULICITY) 1.5 mg/0.5 mL pen [...] mouth every 8 hours as needed. 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 Kkqnrss-Zkx-Okc Red* Other: See Comments myopathy Vytorin 10-10 [...] METABOLIC PNL Stefan Moore documented in this encounterMem[facility] System07-28-[facility]22 History of Present illness Narrative* Erica Colorado LPN - 12/30/2021 12:56 PM EDT Patient presents for B-12 injection. Denies any problems at this time. Patient instructed on any SEof medication, verbalized understanding and agreed to proceed with treatment. Tolerated injection well. Erica Colorado LPN documented in this encounterMem[facility] System07-21-2022 Instructions* Patient Instructions* Mason King PA-C - 12/23/2021 10:13 AM EDT Complete antibiotic. Push fluids, rest. Can alter lasix according the parameters: Monitor daily weight If weight > 3lbs increase + with shortness of breath or increase leg swelling take lasix 20mg documented in this encounterMemorial [facility] System07[facility]-2022 History of Present illness Narrative* Mason King [...] or diarrhea? No Additional history follows with [place]. Component Latest Ref Rng & Units [...] diabetes mellitus 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 neuropathy, unspecified whether superintendent container terminal insulin use (hcc) Type 2 diabetes mellitus [...] 1.00 - 4.00 k/uL 0.91 (L) 1.19 [place]% % 6.9 5.4 Abs [place] <0.87 k/uL 0.33 0.48 [place]% % 3.5 [...] Polyneuropathy, Without Long-Term Current Use of Insulin ([facility]) Osteopenia Thoracic Or Lumbosacral Neuritis Or Radiculitis, Unspecified Abnormality of Gait Statin Myopathy Pvd (Peripheral Vascular Disease) ([facility]) Gout With Manifestations B12 Deficiency Pure Hypercholesterolemia [...] 2 days and skipping a dose per desktop publisher. ) 90 tablet 3 dulaglutide (TRULICITY) 1.5 [...] mouth every 8 hours as needed. Insulin [place], Disposable, (BD ULTRA-FINE HORTENCIA PEN NEEDLE) 32 [...] ICD9: 427.31, ICD10: I48.0 Stable, follows with [facility] Discussed lasix prn orders: see d/c instructions. To review with caridology.. 5. 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 PVD (peripheral vascular disease) (HCC) - ICD9: 443.9, ICD10: I73.9 No current sx 7. DAYANA (obstructive sleep apnea) - ICD9: 327.23, ICD10: G47.33 compliant with CPAP 8. Hyperparathyroidism due to vitamin D deficiency (HCC) - ICD9: 252.02, ICD10: E21.1 resolved 9. Type 2 diabetes mellitus 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 neuropathy, unspecified whether skilled nursing insulin use (HCC) - ICD9: 250.60, 357.2, [...] worsening. Mason King PA-C documented in this encounterMemorial [facility] System07-19-2022 Miscellaneous Notes* Telephone Encounter - Monika Colby [...] scheduled. Dao Vieyra APRN.CNP documented in this encounterMem[facility] System07-14-2022 Miscellaneous Notes* Telephone Encounter - Stefan Moore [...] since. Patient reports she forgot she has [employer] Modality cough medicine and will take some of that to help her cough. 1. ONSET: 12/14/21Monday 2. SEVERITY: coughing mainly during day-moderate 3. SPUTUM:none 4. HEMOPTYSIS: No 5. DIFFICULTY BREATHING: No 6. FEVER: No 7. CARDIAC HISTORY: yes, a-fib 8. LUNG HISTORY: no 9. PE RISK FACTORS:no 10. OTHER SYMPTOMS: Denies SOB, wheezing or chest pain 12. TRAVEL:no Protocols used: COUGH - ACUTE [id number] documented in this encounterMemorial [facility] System07-14-2022 Miscellaneous Notes* Telephone Encounter - Flavia Tran [...] to pharmacy. Flavia Tran documented in this encounterMem[facility]07-[facility]-2022 Miscellaneous Notes* Telephone Encounter - Darling Guo [...] you. Darling Guo RN documented in this encounterMem[facility]07[facility]22 History of Present illness Narrative* Dali Derick - 12/03/2021 3:01 PM EDT Last saw [...] Patient, Diabetic Foot Care documented in this encounterMemorial Health System07-01-2022 Instructions* Patient Instructions* Dali Sepulveda - 12/03/2021 [...] (or decreased sensation in your feet) a bone crusher should always cut your toenails. Be Careful [...] Go to your health care provider or bone crusher to treat these conditions. documented in this encounterMemorial [facility] System06-30-[facility]22 History of Present illness Narrative* Erica Grullonelis GUPTA - 12/02/2021 1:31 PM EDT Patient presents for B-12 injection. Denies any problems at this time. Patient instructed on any SEof medication, verbalized understanding and agreed to proceed with treatment. Tolerated injection well. Erica Colorado LPN documented in this encounterMemorial [facility] System06-[facility]-2022 History of Present illness Narrative* Erica Colorado LPN - 11/05/2021 10:03 AM EDT Patient presents for B-12 injection. Denies any problems at this time. Patient instructed on any SEof medication, verbalized understanding and agreed to proceed with treatment. Tolerated injection well. Erica Colorado LPN documented in this encounterMemorial [facility] System05-27-2022 History of Present illness Narrative* Stefan Moore [...] 2 days and skipping a dose per desktop publisher. ) dulaglutide (TRULICITY) 1.5 mg/0.5 mL pen [...] mouth every 8 hours as needed. 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 Qeduetj-Eto-Oxj Red* Other: See Comments myopathy Vytorin 10-10 [...] reviewed with patient in detail. - emani dianen. Call with update on Monday Stefan Moore I spent 10 minutes in the visit, with more than 50% of the total raky-yh-ltsi time of the visit in counseling / coordination of care. documented in this encounterMemorial Health System05-26-2022 Miscellaneous Notes* Telephone Encounter - Chelesa Cartwright LPN - 10/28/2021 5:08 PM EDT [...] her pharmacy. Please advise documented in this encounterMemorial Health System05-24-2022 Miscellaneous Notes* Telephone Encounter - ÓSCAR Stark [...] Yes, No ÓSCAR Stark documented in this encounterMemorial Health System05-19-2022 Miscellaneous Notes* Telephone Encounter - Xochilt Watson Pss - 10/21/2021 12:58 PM EDT Patient called to speak with Flor regarding a shawl that she brought in last week. Please call when able. documented in this encounterMemorial Health System05-07-2022 Miscellaneous Notes* Telephone Encounter - Yusuf You LPN - 10/09/2021 9:24 AM EDT Patient phones requesting refills as follows: Pending Prescriptions Disp Refills CARVEDILOL 25 MG TABLET 360 tablet 0 Sig: Take 1 tablet by mouth twice daily. KP: No RUSSEL 08/02/21 NOV 01/31/22 Please review and advise. Yusuf You LPN documented in this encounterMem[facility] Health System05-02-2022 Instructions* Patient Instructions* Yadira Chaudhry MD - 10/04/2021 4:33 PM EDT Stay on iron twice daily and vitamin B12 injection [facility] History of Present illness Narrative* Yadira Chaudhry MD - 10/04/2021 4:27 PM EDT PATIENT NAME: Coni Romero. CLINIC NO: [id number]. ATTENDING PHYSICIAN: Yadira Chaudhry MD. DATE OF [...] her anemia and she was admitted to [place] in July. She underwent both an upper and lower endoscopy which did not reveal any obvious bleeding source. She subsequently was sent to [place] where she had a capsule endoscopy which [...] Lymph 1.00 - 4.00 k/uL 0.91 (L) [place]% % 6.9 Abs [place] <0.87 k/uL 0.33 Eosin% % 3.5 Abs [...] Cc: Dr. Stefan Moore documented in this encounter[facility]-2022 Miscellaneous Notes* Telephone Encounter - Suad Cheung [...] advise. Sheree Johnson Pss documented in this encounterMem[facility] System04-29-2022 History of Present illness Narrative* Erica Colorado LPN - 10/01/2021 9:59 AM EDT Patient presents for B-12 injection. Denies any problems at this time. Patient instructed on any SEof medication, verbalized understanding and agreed to proceed with treatment. Tolerated injection well. Erica Colorado LPN documented in this encounterMem[facility] System03-30-2022 History of Present illness Narrative* Dali Derick - 09/01/2021 9:53 AM EDT Last saw Dr. oMore: 08/02/21 Subjective: Patient presents to clinic c/o [...] Established Patient, Nail Care documented in this encounterMem[facility] System03-30-2022 Instructions* Patient Instructions* Dali Sepulveda - 09/01/2021 [...] (or decreased sensation in your feet) a bone crusher should always cut your toenails. Be Careful [...] Go to your health care provider or bone crusher to treat these conditions. documented in this encounterMem[facility] System03-28-2022 History of Present illness Narrative* Eriac [place] LPN - 08/30/2021 9:07 AM EDT Patient presents for B-12 injection. Denies any problems at this time. Patient instructed on any SEof medication, verbalized understanding and agreed to proceed with treatment. Tolerated injection well. Erica Colorado LPN documented in this encounterMemorial [facility] System03-24-2022 Miscellaneous Notes* Telephone Encounter - Ebony Boyce [...] patient. Ebony Manzano Pss documented in this encounterMem[facility] System06-16-[facility]21 History of Past illness Narrative* Problem Noted [...] of this encounter (statuses as of 08/30/2021) [facility] Narrative* Problem Noted [...] of this encounter (statuses as of 09/01/2021) [facility] Narrative* Problem Noted [...] of this encounter (statuses as of 09/18/2021) [facility] Narrative* Problem Noted [...] of this encounter (statuses as of 09/24/2021) [facility] Narrative* Problem Noted [...] of this encounter (statuses as of 10/01/2021) [facility] Narrative* Problem Noted [...] of this encounter (statuses as of 10/04/2021) [facility] NoteHNO ID: [id number] Author: Esteban Mao MD Service: ? Author [...] and pill endoscopy. She has seen a program trainer and has an appointment to follow-up with [...] 05/2014 left - COLONOSCOP W/ OR W/O [facility] SPEC 04/14/2005 Colonoscopy - COLONOSCOP W/ OR W/O [facility] SPE[facility] 01/21/2016 Colonoscopy - COLONOSCOPY GEN ANES 07/31/2020 External/internal hemorrhoids - EGD 07/31/2020 Mild Gastritis - EGD W/O [facility] SPECIMEN W/BX 06/25/2007 - LAPAROSCOPIC CHOLECYSTECTOMY 01/08/2018 [...] - Simvastatin Contraindication-Medical Surgical statin myopathy - Xzrhgqq-Pxh-Ebf Red* Other: See Comments myopathy - Vytorin [...] per week. Discard Pen After - Insulin [place], Disposable, (BD ULTRA-FINE HORTENCIA PEN NEEDLE) 32 [...] glucose 2x/daily, 250.02, i (more content not included)...[facility]06-08-2018 History of Past illness Narrative* Problem [...] of this encounter (statuses as of 10/05/2021) [facility] Narrative* Problem Noted [...] of this encounter (statuses as of 10/09/2021) [facility] Narrative* Problem Noted [...] of this encounter (statuses as of 10/21/2021) [facility] Narrative* Problem Noted [...] of this encounter (statuses as of 10/26/2021) [facility] Narrative* Problem Noted [...] of this encounter (statuses as of 10/28/2021) [facility] Narrative* Problem Noted [...] of this encounter (statuses as of 10/29/2021) [facility] N[facility]* Problem Noted [...] of this encounter (statuses as of 11/05/2021) [facility] N[facility]* Problem Noted [...] of this encounter (statuses as of 12/02/2021) [facility] N[facility]ative* Problem Noted [...] of this encounter (statuses as of 12/03/2021) [facility] N[facility]* Problem Noted [...] of this encounter (statuses as of 12/09/2021) [facility] N[facility]* Problem Noted [...] of this encounter (statuses as of 12/16/2021) [facility]* Problem Noted [...] of this encounter (statuses as of 12/16/2021) [facility] N[facility]* Problem Noted [...] of this encounter (statuses as of 12/21/2021) [facility] N[facility]* Problem Noted [...] of this encounter (statuses as of 12/23/2021) [facility]* Problem Noted [...] of this encounter (statuses as of 12/30/2021) [facility]* Problem Noted [...] of this encounter (statuses as of 12/31/2021) [facility]* Problem Noted [...] of this encounter (statuses as of 01/04/2022) [facility]* Problem Noted [...] of this encounter (statuses as of 01/13/2022) [facility]* Problem Noted [...] of this encounter (statuses as of 01/14/2022) [facility]* Problem Noted [...] of this encounter (statuses as of 01/24/2022) [facility]* Problem Noted [...] of this encounter (statuses as of 01/24/2022) [facility]* Problem Noted [...] of this encounter (statuses as of 01/24/2022) [facility]* Problem Noted [...] of this encounter (statuses as of 01/25/2022) [facility]* Problem Noted [...] of this encounter (statuses as of 01/27/2022) [facility]* Problem Noted [...] of this encounter (statuses as of 01/31/2022) [facility] N[facility]* Problem Noted [...] of this encounter (statuses as of 02/10/2022) [facility] N[facility]* Problem Noted [...] of this encounter (statuses as of 02/14/2022) [facility] Future Appointments [facility] Evaluation note* Diagnosis B12 deficiency- Primary Other B-complex deficiencies documented in this encounter [facility] note* Diagnosis Onychomycosis- Primary Dermatophytosis of nail Pain in toe of right foot Pain in limb Pain in toe of left foot Pain in limb Diabetic polyneuropathy associated with type 2 diabetes mellitus (HCC) documented [facility] this encounter [facility]* Diagnosis Type 2 diabetes mellitus 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 neuropathy, unspecified whether skilled nursing insulin use (HCC) documented [facility] encounter [facility]* Diagnosis Anemia due to stage 3b chronic kidney disease (HCC)- Primary Iron deficiency anemia, unspecified iron deficiency anemia type [facility]* Diagnosis B12 deficiency- Primary Other B-complex deficiencies [facility] Diagnosis Anemia due to stage 3b chronic kidney disease (HCC)- Primary B12 deficiency Other B-complex deficiencies [facility] Diagnosis Secondary hypertension due to renal disease Other secondary hypertension, unspecified [facility]* Diagnosis COVID-19- Primary [facility] Diagnosis B12 deficiency- Primary Other B-complex deficiencies [facility]* Diagnosis B12 deficiency- Primary Other B-complex deficiencies [facility]* Diagnosis Onychomycosis- Primary Dermatophytosis of nail Pain in toe of right foot Pain in limb Pain in toe of left foot Pain in limb Diabetic polyneuropathy associated with type 2 diabetes mellitus (HCC) Hammer toes of both feet [facility]* Diagnosis Diabetes mellitus due to underlying condition 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 neuropathy, with long-term current use of insulin ([facility]) [facility]* Diagnosis Iron deficiency anemia, unspecified iron deficiency anemia type- Primary Secondary hypertension due to renal disease Other secondary hypertension, unspecified Cardiomyopathy, nonischemic (HCC) Other primary cardiomyopathies Paroxysmal atrial fibrillation (HCC) Atrial fibrillation Statin myopathy Toxic myopathy PVD (peripheral vascular disease) ([facility]) Peripheral vascular disease, unspecified DAYANA (obstructive sleep apnea) Obstructive sleep apnea (adult) (pediatric) Hyperparathyroidism due to vitamin D deficiency ([facility]) Secondary hyperparathyroidism, non-renal Type 2 diabetes mellitus 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 neuropathy, unspecified whether skilled nursing insulin use ([facility]) Type 2 diabetes mellitus with stage 3b chronic kidney disease, without long-term current use of insulin ([facility]) Other specified hypothyroidism Stress reaction Unspecified acute reaction to stress Anxiety state Anxiety state, unspecified B12 deficiency Other B-complex deficiencies Anemia due to stage 3b chronic kidney disease ([facility]) Bronchitis Bronchitis, not specified as acute or chronic [facility]* Diagnosis B12 deficiency- Primary Other B-complex deficiencies [facility]* Diagnosis Bacterial pneumonia- Primary Bacterial pneumonia, unspecified Type 2 diabetes mellitus 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 polyneuropathy, without long-term current use of insulin ([facility]) Cardiomyopathy, nonischemic (HCC) Other primary cardiomyopathies Congestive heart failure, unspecified HF chronicity, unspecified heart failure type ([facility]) [facility]* Diagnosis Renal insufficiency- Primary Unspecified disorder of kidney and ureter [facility]* Diagnosis Fall, initial encounter- Primary [facility]* Diagnosis Acute right ankle pain- Primary Leg swelling Swelling of limb [facility] Diagnosis Leg swelling Swelling of limb [facility]* Diagnosis B12 deficiency- Primary Other B-complex deficiencies [facility]* Diagnosis Type 2 diabetes mellitus with [...] leg, except foot [facility]* Diagnosis Type 2 diabetes mellitus 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 polyneuropathy, without long-term current use of insulin (HCC)- Primary Pure hypercholesterolemia [facility]* Diagnosis Type 2 diabetes mellitus with stage 3b chronic kidney disease, without long-term current use of insulin (HCC)- Primary Cellulitis of left lower extremity Cellulitis and abscess of leg, except foot [facility]* Diagnosis Type 2 diabetes mellitus 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 polyneuropathy, without long-term current use of insulin ([facility]) documented [facility] encounter [facility]* Diagnosis Diabetes mellitus due to underlying condition 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 neuropathy, with long-term current use of insulin ([facility]) [facility]* Diagnosis Febrile illness, acute- Primary Fever, unspecified Bronchitis Bronchitis, not specified as acute or chronic documented [facility] this encounter [facility]* Diagnosis Anemia due to stage 3a chronic kidney disease (HCC) [facility]* Diagnosis Pneumonia of right lower lobe due to infectious organism- Primary Thrush (oral) Herpes labialis Herpes 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 [facility]* Diagnosis Anemia due to stage 3b chronic kidney disease (HCC)- Primary [facility]* Diagnosis Bacterial pneumonia- Primary [...] Pain in [facility] B12 deficiency- Primary Other B-complex deficiencies Secondary hypertension due to renal disease Other secondary hypertension, unspecified [facility] Diagnosis Onychomycosis- Primary Dermatophytosis of nail Pain in toe of right foot Pain in limb Pain in toe of left foot Pain in limb Diabetic polyneuropathy associated with type 2 diabetes mellitus ([facility]) Hammer toes of both feet [facility] Diagnosis Secondary hypertension due to renal disease- Primary Other secondary hypertension, unspecified [facility] Diagnosis Finger pain, left Pain in limb [facility]* Diagnosis Type 2 diabetes mellitus 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 polyneuropathy, without long-term current use of insulin ([facility])- Primary Paroxysmal atrial fibrillation (HCC) Atrial fibrillation Pure hypercholesterolemia Type 2 diabetes mellitus 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 peripheral angiopathy without gangrene, without long-term current use of insulin (HCC) DAYANA (obstructive sleep apnea) Obstructive sleep apnea (adult) (pediatric) B12 deficiency Other B-complex deficiencies Type 2 diabetes mellitus with stage 3b chronic kidney disease, without long-term current use of insulin (HCC) Hyperparathyroidism due to vitamin D deficiency ([facility]) Secondary hyperparathyroidism, non-renal Other specified hypothyroidism Anemia, unspecified type [facility] Diagnosis B12 deficiency- Primary Other B-complex deficiencies [facility]* Diagnosis Type 2 diabetes mellitus 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 neuropathy, unspecified whether skilled nursing insulin use ([facility]) [facility] Diagnosis Onychomycosis- Primary Dermatophytosis of nail Pain in toe of right foot Pain in limb Pain in toe of left foot Pain in limb Diabetic polyneuropathy associated with type 2 diabetes mellitus (HCC) [facility]* Diagnosis Anemia, unspecified type- Primary Bronchitis Bronchitis, not specified as acute or chronic [facility]* Diagnosis Anemia, unspecified type- Primary [facility]* Diagnosis B12 deficiency- Primary Other B-complex deficiencies documented in this encounter [facility] note* Diagnosis Type 2 diabetes mellitus with [...] therapeutic drug monitoring [facility]* Diagnosis B12 deficiency- Primary Other B-complex deficiencies [facility]* Diagnosis Low serum albumin- Primary [facility]* Diagnosis Secondary hypertension due to renal disease Other secondary hypertension, unspecified [facility]* Diagnosis Dietary counseling- Primary Dietary surveillance and counseling Low serum albumin Obesity, Class I, BMI 30-34.9 Obesity, unspecified [facility]* Diagnosis Anemia, unspecified type Iron deficiency anemia, unspecified iron deficiency anemia type [facility]* Diagnosis B12 deficiency- Primary Other B-complex deficiencies [facility]* Diagnosis Closed nondisplaced transverse [...] of cerebral infarction [facility]* Diagnosis Febrile illness, acute Fever, unspecified Bronchitis Bronchitis, not specified as acute or chronic documented in this encounter [facility] note* Diagnosis Contusion of right great toe without damage to nail, initial encounter documented in this encounter [facility] note* Diagnosis Anemia, unspecified type- Primary documented in this encounter [facility] note* Diagnosis Anemia due to stage 3b chronic kidney disease (HCC)- Primary documented in this encounter [facility] note* Diagnosis Onychomycosis- Primary Dermatophytosis of nail Pain in toe of right foot Pain in limb Pain in toe of left foot Pain in limb Diabetic polyneuropathy associated with type 2 diabetes mellitus (HCC) documented in this encounter [facility] course Narrative No data available for this section [facility] Hospital Discharge instructions No data available for this section [facility] Progress note No data available for this section [facility] Reason for referral (narrative)* Diagnostic Procedure Only (Urgent) - Closed Specialty Diagnoses / Procedures Referred By Casey dugan Referred To Contact US IMAGING Diagnoses Leg swelling Procedures US DVT LOWER RT DUP-SCAN XTR VEINS UNILATERAL/LIMITED STUDY Flor Boyle, SPARMAKER [address] [place] [address] Us Imaging Referral ID Status Reason Start Date Expiration Date V isits Requested Visits Authorized [id number] Closed Auto-Generate d Referral 01/24/2022 02/23/2023 1 1 * Diagnostic Procedure Only (Urgent) - Closed Specialty Diagnoses / Procedures Referred By Contac t Referred To Contact XR IMAGING Diagnoses Acute right ankle pain Procedures XR ANKLE GENERAL 3V AP/LAT/OBL RIGHT RADEX ANKLE COMPLETE MINIMUM 3 VIEWS Flor Boyle APRN.SPARMAKER [address] [place] [address] Xr Imaging Referral ID Status Reason Start Date Expiration Date V isits Requested Visits Authorized [id number] Closed Auto-Generate d Referral 01/24/2022 02/23/2023 1 1 [facility] for referral (narrative)* Diagnostic Procedure Only (Urgent) - Closed Specialty Diagnoses / Procedures Referred By Contac t Referred To Contact US IMAGING Diagnoses Leg swelling Procedures US DVT LOWER RT DUP-SCAN XTR VEINS UNILATERAL/LIMITED STUDY Flor Boyle APRN.SPARMAKER [address] [place] [address] Us Imaging Referral ID Status Reason Start Date Expiration Date V isits Requested Visits Authorized [id number] Closed Auto-Generate d Referral 01/24/2022 02/23/2023 1 1 [facility] for referral (narrative)* Diagnostic Procedure Only (Urgent) - Closed Specialty Diagnoses / Procedures Referred By Contac t Referred To Contact XR IMAGING Diagnoses Contusion of right great toe without damage to nail, initial encounter Procedures XR TOE AP/LAT/OBL RIGHT RADEX TOE MINIMUM 2 VIEWS Dali Sepulveda [address] [place] [address] [place] [address] Referral ID Status Reason Start Date Expiration Date V isits Requested Visits Authorized [id number] Closed Auto-Generate d Referral 01/20/2023 02/19/2024 1 1 [facility] for visit Narrative* Diagnostic Procedure Only (Urgent) - Closed Specialty Diagnoses / Procedures Referred By Contac t Referred To Contact XR IMAGING Diagnoses Contusion of right great toe without damage to nail, initial encounter Procedures XR TOE AP/LAT/OBL RIGHT RADEX TOE MINIMUM [address] [place] [address] [place] [address] Referral ID Status Reason Start Date Expiration Date V isits Requested Visits Authorized [id number] Closed Auto-Generate d Referral 01/20/2023 02/19/2024 1 1 [facility] Summary Purpose Family History No Family History Records FoundNo Family History Records FoundNo Family History Records Found No data available for this section No Family History Records FoundNo Family History Records Found Advance Directives No Advanced Directives Records FoundDocuments on File Type Date Recorded Patient Physical Director Expl anation Advance Directive(s) 01/21/2016 7:59 AM Advance Directive(s) 03/30/2015 11:25 AM Documents on File Type Date Recorded Patient Physical Director Expl anation Advance Directive(s) 03/30/2015 11:25 AM Documents on File Type Date Recorded Patient Physical Director Expl anation Advance Directive(s) 03/30/2015 11:25 AM [...] initial encounter Procedures CONSULT TO ORTHOPAEDICS OFFICE[facility] 60-74 MINUTES Ana Bell APRN.SPARMAKER [address] [id number] Referral ID Status Reason Start Date Expiration Date Visits Requested Visits Authorized [id number] Pending Review PCP Requested Referral 01/14/2022 01/14/2023 1 1 Specialty Diagnoses / Procedures Referred By Contac t Referred To Contact XR IMAGING Diagnoses Fall, initial encounter Procedures XR ANKLE GENERAL 3V AP/LAT/OBL RIGHT RADEX ANKLE COMPLETE MINIMUM 3 VIEWS Ana Bell APRN.SPARMAKER [address] [place] [address] Xr Imaging Referral ID Status Reason Start Date Expiration Date V isits Requested Visits Authorized [id number] Closed Auto-Generate d Referral 01/14/2022 02/13/2023 1 1 Specialty Diagnoses / Procedures Referred By Contac t Referred To Contact XR IMAGING Diagnoses Fall, initial encounter Procedures XR FOOT GENERAL 3V AP/LAT/OBL RIGHT RADEX FOOT COMPLETE MINIMUM 3 VIEWS Ana Bell APRN.SPARMAKER [address] [place] [address] Xr Imaging Referral ID Status Reason Start Date Expiration Date V isits Requested Visits Authorized [id number] Closed Auto-Generate d Referral 01/14/2022 02/13/2023 1 1 Specialty Diagnoses / Procedures Referred By Contac t Referred To Contact Orthopedics Diagnoses Finger pain, left Procedures CONSULT TO ORTHOPAEDICS OFFICE/OUTPATIENT [facility] 60-74 MINUTES Chun Brewster MD [address] [place] [address] Referral ID Status Reason Start Date Expiration Date Visits Requested Visits Authorized [id number] Pending Review PCP Requested Referral 06/08/2022 06/08/2023 1 1 Specialty Diagnoses / Procedures Referred By Contac t Referred To Contact XR IMAGING Diagnoses Finger pain, left Procedures XR DIGIT GENERAL 3V FRONTAL/LAT/OBL LEFT RADEX FINGR MINIMUM 2 VIEWS Chun Brewster MD [address] [place] [address] Xr Imaging Referral ID Status Reason Start Date Expiration Date V isits Requested Visits Authorized [id number] Closed Auto-Generate d Referral 06/08/2022 07/08/2023 1 1 Specialty Diagnoses / Procedures Referred By Contac t Referred To Contact Diagnoses Anemia, unspecified type Procedures CONSULT TO HEMATOLOGY/ONCOLOGY OFFICE/OUTPATIENT [facility] 60-74 MINUTES Monae Bowser APRN.CNP [address] [place] [address] Referral ID Status Reason Start Date Expiration Date Visits Requested Visits Authorized [id number] Pending Review PCP Requested Referral 11/08/2022 11/08/2023 1 1 Specialty Diagnoses / Procedures Referred By Contac t Referred To Contact Hematology Diagnoses Iron deficiency anemia, unspecified iron deficiency anemia type Procedures CONSULT TO HEMATOLOGY OFFICE/OUTPATIENT [facility] 60-74 MINUTES Stefan Moore MD [address] [place] [address] Referral ID Status Reason Start Date Expiration Date Visits Requested Visits Authorized [id number] Pending Review PCP Requested Referral 12/10/2022 12/10/2023 1 1 Specialty Diagnoses / Procedures Referred By Contac t Referred To Contact Nutrition Diagnoses Low serum albumin Procedures CONSULT TO NUTRITION THERAPY MEDICAL NUTRITION ASSMT&IVNTJ INDIV EACH 15 NM MEDICAL NUTRITION ASSMT&IVNTJ INDIV EACH 15 NM MEDICAL NUTRITION ASSMT&IVNTJ INDIV EACH 15 NM MEDICAL NUTRITION ASSMT&IVNTJ INDIV EACH 15 NM Stefan Moore MD [address] [place] [address] Referral ID Status Reason Start Date Expiration Date Visits Requested Visits Authorized [id number] Pending Review PCP Requested Referral 12/10/2022 12/10/2023 1 1 Additional Source Comments INFORMATION SOURCE (unrecogn ized section and content) DATE CREATED AUTHOR AUTHOR'S ORGANIZ ATION 11/29/2017 [facility] DATE CREATED AUTHOR AUTHOR'S ORGANIZ ATION 11/14/2020 [facility] DATE CREATED AUTHOR AUTHOR'S ORGANIZ ATION 06/19/2023 [facility] ([place]) DATE CREATED AUTHOR AUTHOR'S ORGANIZ ATION 06/30/2023 [facility] Source Comments (unrecognize d section and content) In the event this informatio n is protected by the Federal Confidentiality of Alcohol and Drug Abuse Patient Records regulations: The Federal rules restrict any use of the information to criminally investigate or prosecute any alcohol or drug abuse patient.[facility] System[facility] the event this information is protected by the Federal Confidentiality of Alcohol and Drug Abuse Patient Records regulations: The Federal rules restrict any use of the information to criminally investigate or prosecute any alcohol or drug abuse patient.[facility] SystemIn the event this information is protected by the Federal Confidentiality of Alcohol and Drug Abuse Patient Records regulations: The Federal rules restrict any use of the information to criminally investigate or prosecute any alcohol or drug abuse patient.[facility] SystemIn the event this information is protected by the Federal Confidentiality of Alcohol and Drug Abuse Patient Records regulations: The Federal rules restrict any use of the information to criminally investigate or prosecute any alcohol or drug abuse patient.[facility] SystemIn the event this information is protected by the Federal Confidentiality of Alcohol and Drug Abuse Patient Records regulations: The Federal rules restrict any use of the information to criminally investigate or prosecute any alcohol or drug abuse patient.[facility] SystemIn the event this information is protected by the Federal Confidentiality of Alcohol and Drug Abuse Patient Records regulations: The Federal rules restrict any use of the information to criminally investigate or prosecute any alcohol or drug abuse patient.[facility] SystemIn the event this information is protected by the Federal Confidentiality of Alcohol and Drug Abuse Patient Records regulations: The Federal rules restrict any use of the information to criminally investigate or prosecute any alcohol or drug abuse patient.[facility] SystemIn the event this information is protected by the Federal Confidentiality of Alcohol and Drug Abuse Patient Records regulations: The Federal rules restrict any use of the information to criminally investigate or prosecute any alcohol or drug abuse patient.[facility] SystemIn the event this information is protected by the Federal Confidentiality of Alcohol and Drug Abuse Patient Records regulations: The Federal rules restrict any use of the information to criminally investigate or prosecute any alcohol or drug abuse patient.[facility] SystemIn the event this information is protected by the Federal Confidentiality of Alcohol and Drug Abuse Patient Records regulations: The Federal rules restrict any use of the information to criminally investigate or prosecute any alcohol or drug abuse patient.[facility] SystemIn the event this information is protected by the Federal Confidentiality of Alcohol and Drug Abuse Patient Records regulations: The Federal rules restrict any use of the information to criminally investigate or prosecute any alcohol or drug abuse patient.[facility] SystemIn the event this information is protected by the Federal Confidentiality of Alcohol and Drug Abuse Patient Records regulations: The Federal rules restrict any use of the information to criminally investigate or prosecute any alcohol or drug abuse patient.[facility] SystemIn the event this information is protected by the Federal Confidentiality of Alcohol and Drug Abuse Patient Records regulations: The Federal rules restrict any use of the information to criminally investigate or prosecute any alcohol or drug abuse patient.[facility] SystemIn the event this information is protected by the Federal Confidentiality of Alcohol and Drug Abuse Patient Records regulations: The Federal rules restrict any use of the information to criminally investigate or prosecute any alcohol or drug abuse patient.[facility] SystemIn the event this information is protected by the Federal Confidentiality of Alcohol and Drug Abuse Patient Records regulations: The Federal rules restrict any use of the information to criminally investigate or prosecute any alcohol or drug abuse patient.[facility] SystemIn the event this information is protected by the Federal Confidentiality of Alcohol and Drug Abuse Patient Records regulations: The Federal rules restrict any use of the information to criminally investigate or prosecute any alcohol or drug abuse patient.[facility] SystemIn the event this information is protected by the Federal Confidentiality of Alcohol and Drug Abuse Patient Records regulations: The Federal rules restrict any use of the information to criminally investigate or prosecute any alcohol or drug abuse patient.[facility] SystemIn the event this information is protected by the Federal Confidentiality of Alcohol and Drug Abuse Patient Records regulations: The Federal rules restrict any use of the information to criminally investigate or prosecute any alcohol or drug abuse patient.[facility] SystemIn the event this information is protected by the Federal Confidentiality of Alcohol and Drug Abuse Patient Records regulations: The Federal rules restrict any use of the information to criminally investigate or prosecute any alcohol or drug abuse patient.[facility] SystemIn the event this information is protected by the Federal Confidentiality of Alcohol and Drug Abuse Patient Records regulations: The Federal rules restrict any use of the information to criminally investigate or prosecute any alcohol or drug abuse patient.[facility] SystemIn the event this information is protected by the Federal Confidentiality of Alcohol and Drug Abuse Patient Records regulations: The Federal rules restrict any use of the information to criminally investigate or prosecute any alcohol or drug abuse patient.[facility] SystemIn the event this information is protected by the Federal Confidentiality of Alcohol and Drug Abuse Patient Records regulations: The Federal rules restrict any use of the information to criminally investigate or prosecute any alcohol or drug abuse patient.[facility] SystemIn the event this information is protected by the Federal Confidentiality of Alcohol and Drug Abuse Patient Records regulations: The Federal rules restrict any use of the information to criminally investigate or prosecute any alcohol or drug abuse patient.[facility] SystemIn the event this information is protected by the Federal Confidentiality of Alcohol and Drug Abuse Patient Records regulations: The Federal rules restrict any use of the information to criminally investigate or prosecute any alcohol or drug abuse patient.[facility] SystemIn the event this information is protected by the Federal Confidentiality of Alcohol and Drug Abuse Patient Records regulations: The Federal rules restrict any use of the information to criminally investigate or prosecute any alcohol or drug abuse patient.[facility] SystemIn the event this information is protected by the Federal Confidentiality of Alcohol and Drug Abuse Patient Records regulations: The Federal rules restrict any use of the information to criminally investigate or prosecute any alcohol or drug abuse patient.[facility] SystemIn the event this information is protected by the Federal Confidentiality of Alcohol and Drug Abuse Patient Records regulations: The Federal rules restrict any use of the information to criminally investigate or prosecute any alcohol or drug abuse patient.[facility] SystemIn the event this information is protected by the Federal Confidentiality of Alcohol and Drug Abuse Patient Records regulations: The Federal rules restrict any use of the information to criminally investigate or prosecute any alcohol or drug abuse patient.[facility] SystemIn the event this information is protected by the Federal Confidentiality of Alcohol and Drug Abuse Patient Records regulations: The Federal rules restrict any use of the information to criminally investigate or prosecute any alcohol or drug abuse patient.[facility] SystemIn the event this information is protected by the Federal Confidentiality of Alcohol and Drug Abuse Patient Records regulations: The Federal rules restrict any use of the information to criminally investigate or prosecute any alcohol or drug abuse patient.[facility] SystemIn the event this information is protected by the Federal Confidentiality of Alcohol and Drug Abuse Patient Records regulations: The Federal rules restrict any use of the information to criminally investigate or prosecute any alcohol or drug abuse patient.[facility] SystemIn the event this information is protected by the Federal Confidentiality of Alcohol and Drug Abuse Patient Records regulations: The Federal rules restrict any use of the information to criminally investigate or prosecute any alcohol or drug abuse patient.[facility] SystemIn the event this information is protected by the Federal Confidentiality of Alcohol and Drug Abuse Patient Records regulations: The Federal rules restrict any use of the information to criminally investigate or prosecute any alcohol or drug abuse patient.[facility] SystemIn the event this information is protected by the Federal Confidentiality of Alcohol and Drug Abuse Patient Records regulations: The Federal rules restrict any use of the information to criminally investigate or prosecute any alcohol or drug abuse patient.[facility] SystemIn the event this information is protected by the Federal Confidentiality of Alcohol and Drug Abuse Patient Records regulations: The Federal rules restrict any use of the information to criminally investigate or prosecute any alcohol or drug abuse patient.[facility] SystemIn the event this information is protected by the Federal Confidentiality of Alcohol and Drug Abuse Patient Records regulations: The Federal rules restrict any use of the information to criminally investigate or prosecute any alcohol or drug abuse patient.[facility] SystemIn the event this information is protected by the Federal Confidentiality of Alcohol and Drug Abuse Patient Records regulations: The Federal rules restrict any use of the information to criminally investigate or prosecute any alcohol or drug abuse patient.[facility] SystemIn the event this information is protected by the Federal Confidentiality of Alcohol and Drug Abuse Patient Records regulations: The Federal rules restrict any use of the information to criminally investigate or prosecute any alcohol or drug abuse patient.[facility] SystemIn the event this information is protected by the Federal Confidentiality of Alcohol and Drug Abuse Patient Records regulations: The Federal rules restrict any use of the information to criminally investigate or prosecute any alcohol or drug abuse patient.[facility] SystemIn the event this information is protected by the Federal Confidentiality of Alcohol and Drug Abuse Patient Records regulations: The Federal rules restrict any use of the information to criminally investigate or prosecute any alcohol or drug abuse patient.[facility] SystemIn the event this information is protected by the Federal Confidentiality of Alcohol and Drug Abuse Patient Records regulations: The Federal rules restrict any use of the information to criminally investigate or prosecute any alcohol or drug abuse patient.[facility] SystemIn the event this information is protected by the Federal Confidentiality of Alcohol and Drug Abuse Patient Records regulations: The Federal rules restrict any use of the information to criminally investigate or prosecute any alcohol or drug abuse patient.[facility] SystemIn the event this information is protected by the Federal Confidentiality of Alcohol and Drug Abuse Patient Records regulations: The Federal rules restrict any use of the information to criminally investigate or prosecute any alcohol or drug abuse patient.[facility] SystemIn the event this information is protected by the Federal Confidentiality of Alcohol and Drug Abuse Patient Records regulations: The Federal rules restrict any use of the information to criminally investigate or prosecute any alcohol or drug abuse patient.[facility] SystemIn the event this information is protected by the Federal Confidentiality of Alcohol and Drug Abuse Patient Records regulations: The Federal rules restrict any use of the information to criminally investigate or prosecute any alcohol or drug abuse patient.[facility] SystemIn the event this information is protected by the Federal Confidentiality of Alcohol and Drug Abuse Patient Records regulations: The Federal rules restrict any use of the information to criminally investigate or prosecute any alcohol or drug abuse patient.[facility] SystemIn the event this information is protected by the Federal Confidentiality of Alcohol and Drug Abuse Patient Records regulations: The Federal rules restrict any use of the information to criminally investigate or prosecute any alcohol or drug abuse patient.[facility] SystemIn the event this information is protected by the Federal Confidentiality of Alcohol and Drug Abuse Patient Records regulations: The Federal rules restrict any use of the information to criminally investigate or prosecute any alcohol or drug abuse patient.[facility] SystemIn the event this information is protected by the Federal Confidentiality of Alcohol and Drug Abuse Patient Records regulations: The Federal rules restrict any use of the information to criminally investigate or prosecute any alcohol or drug abuse patient.[facility] SystemIn the event this information is protected by the Federal Confidentiality of Alcohol and Drug Abuse Patient Records regulations: The Federal rules restrict any use of the information to criminally investigate or prosecute any alcohol or drug abuse patient.[facility] SystemIn the event this information is protected by the Federal Confidentiality of Alcohol and Drug Abuse Patient Records regulations: The Federal rules restrict any use of the information to criminally investigate or prosecute any alcohol or drug abuse patient.[facility] SystemIn the event this information is protected by the Federal Confidentiality of Alcohol and Drug Abuse Patient Records regulations: The Federal rules restrict any use of the information to criminally investigate or prosecute any alcohol or drug abuse patient.[facility] SystemIn the event this information is protected by the Federal Confidentiality of Alcohol and Drug Abuse Patient Records regulations: The Federal rules restrict any use of the information to criminally investigate or prosecute any alcohol or drug abuse patient.[facility] SystemIn the event this information is protected by the Federal Confidentiality of Alcohol and Drug Abuse Patient Records regulations: The Federal rules restrict any use of the information to criminally investigate or prosecute any alcohol or drug abuse patient.[facility] SystemIn the event this information is protected by the Federal Confidentiality of Alcohol and Drug Abuse Patient Records regulations: The Federal rules restrict any use of the information to criminally investigate or prosecute any alcohol or drug abuse patient.[facility] SystemIn the event this information is protected by the Federal Confidentiality of Alcohol and Drug Abuse Patient Records regulations: The Federal rules restrict any use of the information to criminally investigate or prosecute any alcohol or drug abuse patient.[facility] SystemIn the event this information is protected by the Federal Confidentiality of Alcohol and Drug Abuse Patient Records regulations: The Federal rules restrict any use of the information to criminally investigate or prosecute any alcohol or drug abuse patient.[facility] SystemIn the event this information is protected by the Federal Confidentiality of Alcohol and Drug Abuse Patient Records regulations: The Federal rules restrict any use of the information to criminally investigate or prosecute any alcohol or drug abuse patient.[facility] SystemIn the event this information is protected by the Federal Confidentiality of Alcohol and Drug Abuse Patient Records regulations: The Federal rules restrict any use of the information to criminally investigate or prosecute any alcohol or drug abuse patient.[facility] SystemIn the event this information is protected by the Federal Confidentiality of Alcohol and Drug Abuse Patient Records regulations: The Federal rules restrict any use of the information to criminally investigate or prosecute any alcohol or drug abuse patient.[facility] SystemIn the event this information is protected by the Federal Confidentiality of Alcohol and Drug Abuse Patient Records regulations: The Federal rules restrict any use of the information to criminally investigate or prosecute any alcohol or drug abuse patient.[facility] SystemIn the event this information is protected by the Federal Confidentiality of Alcohol and Drug Abuse Patient Records regulations: The Federal rules restrict any use of the information to criminally investigate or prosecute any alcohol or drug abuse patient.[facility] SystemIn the event this information is protected by the Federal Confidentiality of Alcohol and Drug Abuse Patient Records regulations: The Federal rules restrict any use of the information to criminally investigate or prosecute any alcohol or drug abuse patient.[facility] SystemIn the event this information is protected by the Federal Confidentiality of Alcohol and Drug Abuse Patient Records regulations: The Federal rules restrict any use of the information to criminally investigate or prosecute any alcohol or drug abuse patient.[facility] SystemIn the event this information is protected by the Federal Confidentiality of Alcohol and Drug Abuse Patient Records regulations: The Federal rules restrict any use of the information to criminally investigate or prosecute any alcohol or drug abuse patient.[facility] SystemIn the event this information is protected by the Federal Confidentiality of Alcohol and Drug Abuse Patient Records regulations: The Federal rules restrict any use of the information to criminally investigate or prosecute any alcohol or drug abuse patient.[facility] SystemIn the event this information is protected by the Federal Confidentiality of Alcohol and Drug Abuse Patient Records regulations: The Federal rules restrict any use of the information to criminally investigate or prosecute any alcohol or drug abuse patient.[facility] SystemIn the event this information is protected by the Federal Confidentiality of Alcohol and Drug Abuse Patient Records regulations: The Federal rules restrict any use of the information to criminally investigate or prosecute any alcohol or drug abuse patient.[facility] SystemIn the event this information is protected by the Federal Confidentiality of Alcohol and Drug Abuse Patient Records regulations: The Federal rules restrict any use of the information to criminally investigate or prosecute any alcohol or drug abuse patient.[facility] SystemIn the event this information is protected by the Federal Confidentiality of Alcohol and Drug Abuse Patient Records regulations: The Federal rules restrict any use of the information to criminally investigate or prosecute any alcohol or drug abuse patient.[facility] SystemIn the event this information is protected by the Federal Confidentiality of Alcohol and Drug Abuse Patient Records regulations: The Federal rules restrict any use of the information to criminally investigate or prosecute any alcohol or drug abuse patient.[facility] SystemIn the event this information is protected by the Federal Confidentiality of Alcohol and Drug Abuse Patient Records regulations: The Federal rules restrict any use of the information to criminally investigate or prosecute any alcohol or drug abuse patient.[facility] SystemIn the event this information is protected by the Federal Confidentiality of Alcohol and Drug Abuse Patient Records regulations: The Federal rules restrict any use of the information to criminally investigate or prosecute any alcohol or drug abuse patient.[facility] SystemIn the event this information is protected by the Federal Confidentiality of Alcohol and Drug Abuse Patient Records regulations: The Federal rules restrict any use of the information to criminally investigate or prosecute any alcohol or drug abuse patient.[facility] SystemIn the event this information is protected by the Federal Confidentiality of Alcohol and Drug Abuse Patient Records regulations: The Federal rules restrict any use of the information to criminally investigate or prosecute any alcohol or drug abuse patient.[facility] SystemIn the event this information is protected by the Federal Confidentiality of Alcohol and Drug Abuse Patient Records regulations: The Federal rules restrict any use of the information to criminally investigate or prosecute any alcohol or drug abuse patient.[facility] SystemIn the event this information is protected by the Federal Confidentiality of Alcohol and Drug Abuse Patient Records regulations: The Federal rules restrict any use of the information to criminally investigate or prosecute any alcohol or drug abuse patient.[facility] SystemIn the event this information is protected by the Federal Confidentiality of Alcohol and Drug Abuse Patient Records regulations: The Federal rules restrict any use of the information to criminally investigate or prosecute any alcohol or drug abuse patient.[facility] SystemIn the event this information is protected by the Federal Confidentiality of Alcohol and Drug Abuse Patient Records regulations: The Federal rules restrict any use of the information to criminally investigate or prosecute any alcohol or drug abuse patient.[facility] SystemIn the event this information is protected by the Federal Confidentiality of Alcohol and Drug Abuse Patient Records regulations: The Federal rules restrict any use of the information to criminally investigate or prosecute any alcohol or drug abuse patient.[facility] SystemIn the event this information is protected by the Federal Confidentiality of Alcohol and Drug Abuse Patient Records regulations: The Federal rules restrict any use of the information to criminally investigate or prosecute any alcohol or drug abuse patient.[facility] SystemIn the event this information is protected by the Federal Confidentiality of Alcohol and Drug Abuse Patient Records regulations: The Federal rules restrict any use of the information to criminally investigate or prosecute any alcohol or drug abuse patient.[facility] SystemIn the event this information is protected by the Federal Confidentiality of Alcohol and Drug Abuse Patient Records regulations: The Federal rules restrict any use of the information to criminally investigate or prosecute any alcohol or drug abuse patient.[facility] SystemIn the event this information is protected by the Federal Confidentiality of Alcohol and Drug Abuse Patient Records regulations: The Federal rules restrict any use of the information to criminally investigate or prosecute any alcohol or drug abuse patient.[facility] SystemIn the event this information is protected by the Federal Confidentiality of Alcohol and Drug Abuse Patient Records regulations: The Federal rules restrict any use of the information to criminally investigate or prosecute any alcohol or drug abuse patient.[facility] SystemIn the event this information is protected by the Federal Confidentiality of Alcohol and Drug Abuse Patient Records regulations: The Federal rules restrict any use of the information to criminally investigate or prosecute any alcohol or drug abuse patient.[facility] SystemIn the event this information is protected by the Federal Confidentiality of Alcohol and Drug Abuse Patient Records regulations: The Federal rules restrict any use of the information to criminally investigate or prosecute any alcohol or drug abuse patient.[facility] SystemIn the event this information is protected by the Federal Confidentiality of Alcohol and Drug Abuse Patient Records regulations: The Federal rules restrict any use of the information to criminally investigate or prosecute any alcohol or drug abuse patient.[facility] SystemIn the event this information is protected by the Federal Confidentiality of Alcohol and Drug Abuse Patient Records regulations: The Federal rules restrict any use of the information to criminally investigate or prosecute any alcohol or drug abuse patient.[facility] SystemIn the event this information is protected by the Federal Confidentiality of Alcohol and Drug Abuse Patient Records regulations: The Federal rules restrict any use of the information to criminally investigate or prosecute any alcohol or drug abuse patient.[facility] SystemIn the event this information is protected by the Federal Confidentiality of Alcohol and Drug Abuse Patient Records regulations: The Federal rules restrict any use of the information to criminally investigate or prosecute any alcohol or drug abuse patient.[facility] SystemIn the event this information is protected by the Federal Confidentiality of Alcohol and Drug Abuse Patient Records regulations: The Federal rules restrict any use of the information to criminally investigate or prosecute any alcohol or drug abuse patient.[facility] SystemIn the event this information is protected by the Federal Confidentiality of Alcohol and Drug Abuse Patient Records regulations: The Federal rules restrict any use of the information to criminally investigate or prosecute any alcohol or drug abuse patient.[facility] Reason for Visit (unrecogniz ed section and content) Specialty Diagnoses / Procedures Referred By Casey dugan Referred To Contact Diagnoses Anemia, unspecified type Procedures CONSULT TO HEMATOLOGY/ONCOLOGY OFFICE/OUTPATIENT [facility] 60-74 MINUTES Monae Bowser, DIRECTOR OF EARLY CHILDHOOD EDUCATION.SPARMAKER [address] [place] [address] Referral ID Status Reason Start Date Expiration Date Visits Requested Visits Authorized [id number] Pending Review PCP Requested Referral 11/08/2022 11/08/2023 [...] Referred To Contact Radiology / RADIO MRI [facility] Diagnoses MRI LUMBAR WO CONTRAST-ARTHROPATHY OF LUMBAR FACET, 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, VALID 12/29/2021-06/27/2022 OUTSIDE ORDER SCANNED AND PLACED IN SYNGO Procedures MRI WO MUKESH [address] ALL Prebish, Fabiola [address] [place] [address] [facility] [address] [place] [address] Referral ID Status Reason Start Date Expiration Date V isits Requested Visits Authorized [id number] Outside PCP 12/29/2021 06/27/2022 1 1 Reason Comments right foot and toe pain Fell last night Reason Comments Acute Visit right leg swelling Reason Comments Results Xray and US DVT Reason Comments Radiology US Specialty Diagnoses / Procedures Referred By Contac t Referred To Contact US IMAGING Diagnoses Leg swelling Procedures US DVT LOWER RT DUP-SCAN XTR VEINS UNILATERAL/LIMITED STUDY Flor Boyle, SMITH.SPARMAKER [address] [place] [address] Us Imaging Referral ID Status Reason Start Date Expiration Date V isits Requested Visits Authorized [id number] Closed Auto-Generate d Referral 01/24/2022 02/23/2023 1 [...] TMAX 102.3, diarrhea, body aches. Reason Comments [facility] Reason Onset Date Comments Refill Request 03/29/2022 [...] HIGH MDM 60-74 MINUTES Chun Brewster MD [address] [place] [address] Referral ID Status Reason Start Date Expiration Date Visits Requested Visits Authorized [id number] Pending Review PCP Requested Referral 06/08/2022 06/08/2023 1 1 Reason Comments Refill Request Reason Onset Date Comments Refill Request 09/23/2022 OUT OF TEST STRI PS Reason Comments Medical Clearance Reason Comments Established Patient Follow Up Diabetic Foot Care Reason Comments Patient Update Patient Question Reason Comments Weakness Reason Onset Date Comments Virtualist 10/31/2022 Reason Comments ER F/U [facility] ER f/u dx: weakn ess/shortness of breath Reason Comments Results Reason Comments Follow Up Reason Comments Orders Reason Onset Date Comments Refill Request 12/22/2022 Reason Comments Patient Education Assessment Specialty Diagnoses / Procedures Referred By Contac t Referred To Contact Nutrition Diagnoses Low serum albumin Procedures CONSULT TO NUTRITION THERAPY MEDICAL NUTRITION ASSMT&IVNTJ INDIV EACH 15 NM MEDICAL NUTRITION ASSMT&IVNTJ INDIV EACH 15 NM MEDICAL NUTRITION ASSMT&IVNTJ INDIV EACH 15 NM MEDICAL NUTRITION ASSMT&IVNTJ INDIV EACH 15 NM Stefan Moore MD [address] [facility] [place] [address] Referral ID Status Reason Start Date Expiration Date Visits Requested Visits Authorized [id number] Pending Review PCP Requested Referral 12/10/2022 12/10/2023 1 1 Reason Comments fracture update Results Reason Comments Hospital F/U Reason Comments Non-Chemotherapy Treatment Specialty Diagnoses / Procedures Referred By Contac t Referred To Contact Diagnoses Anemia due to stage 3b chronic kidney disease (HCC) Procedures IRON SUCROSE INJECTION [place] 1 [place] [address] [place] [address] [facility] [address] [place] [address] Referral ID Status Reason Start Date Expiration Date V isits Requested Visits Authorized [id number] Authorized 05/02/2023 06/04/2023 99 99 Reason Comments Benefits Investigation Reason Comments AVS 05/11 Care Teams (unrecognized sec tion and content) Operation Manager Relationship Specialty Start Date End Date Stefan Moore MD [address] [place] [address] PCP - General Family Practice 09/08/16 Operation Manager Relationship Specialty Start Date End Date Stefan Moore MD [address] [place] [address] PCP - General Family Practice 09/08/16 Operation Manager Relationship Specialty Start Date End Date Stefan Moore MD [address] [place] [address] PCP - General Family Practice 09/08/16 Operation Manager Relationship Specialty [place] [address] [place] [address] PCP - General Family Practice 09/08/16 Operation Manager Relationship Specialty Start Date End Date Stefan Moore MD [address] [place] [address] PCP - General Family Practice 09/08/16 Operation Manager Relationship Specialty [place] [address] [place] [address] PCP - General Family Practice 09/08/16 Operation Manager Relationship Specialty Start Date End Date Stefan Moore MD [address] [place] [address] PCP - General Family Practice 09/08/16 Operation Manager Relationship Specialty Start Date End Date Stefan Moore MD [address] [place] [address] PCP - General Family Practice 09/08/16 Operation Manager Relationship Specialty Start Date End Date Stefan Moore MD [address] [place] [address] PCP - General Family Practice 09/08/16 Operation Manager Relationship Specialty Start Date End Date Stefan Moore MD [address] [place] [address] PCP - General Family Practice 09/08/16 Operation Manager Relationship Specialty Start Date End Date Stefan Moore MD [address] [place] [address] PCP - General Family Practice 09/08/16 Operation Manager Relationship Specialty Start Date End Date Stefan Moore MD [address] [place] [address] PCP - General Family Practice 09/08/16 Operation Manager Relationship Specialty Start Date End Date Stefan Moore MD [address] [place] [address] PCP - General Family Practice 09/08/16 Operation Manager Relationship Specialty Start Date End Date Stefan Moore MD [address] [place] [address] PCP - General Family Practice 09/08/16 Operation Manager Relationship Specialty Start Date End Date Stefan Moore MD [address] [place] [address] PCP - General Family Practice 09/08/16 Operation Manager Relationship Specialty Start Date End Date Stefan Moore MD [address] [place] [address] PCP - General Family Practice 09/08/16 Operation Manager Relationship Specialty Start Date End Date Stefan Moore MD [address] [place] [address] PCP - General Family Medicine 09/08/16 Operation Manager Relationship Specialty Start Date End Date Stefan Moore MD [address] [place] [address] PCP - General Family Medicine 09/08/16 Operation Manager Relationship Specialty Start Date End Date Stefan Moore MD [address] [place] [address] PCP - General Family Medicine 09/08/16 Operation Manager Relationship Specialty Start Date End Date Stefan Moore MD [address] [place] [address] PCP - General Family Medicine 09/08/16 Operation Manager Relationship Specialty Start Date End Date Stefan Moore MD [address] [place] [address] PCP - General Family Medicine 09/08/16 Operation Manager Relationship Specialty Start Date End Date Stefan Moore MD [address] [place] [address] PCP - General Family Medicine 09/08/16 Operation Manager Relationship Specialty Start Date End Date Stefan Moore MD [address] [place] [address] PCP - General Family Medicine 09/08/16 Operation Manager Relationship Specialty Start Date End Date Stefan Moore MD [address] [place] [address] PCP - General Family Medicine 09/08/16 Operation Manager Relationship Specialty Start Date End Date Stefan Moore MD [address] [place] [address] PCP - General Family Medicine 09/08/16 Operation Manager Relationship Specialty Start Date End Date Setfan Moore MD [address] [place] [address] PCP - General Family Medicine 09/08/16 Operation Manager Relationship Specialty Start Date End Date Stefan Moore MD [address] [place] [address] PCP - General Family Medicine 09/08/16 Operation Manager Relationship Specialty Start Date End Date Stefan Moore MD [address] [place] [address] PCP - General Family Medicine 09/08/16 Operation Manager Relationship Specialty Start Date End Date Stefan Moore MD [address] [place] [address] PCP - General Family Medicine 09/08/16 Operation Manager Relationship Specialty Start Date End Date Stefan Moore MD [address] [place] [address] PCP - General Family Medicine 09/08/16 Operation Manager Relationship Specialty Start Date End Date Stefan Moore MD [address] [place] [address] PCP - General Family Medicine 09/08/16 Operation Manager Relationship Specialty Start Date End Date Stefan Moore MD [address] [place] [address] PCP - General Family Medicine 09/08/16 Operation Manager Relationship Specialty Start Date End Date Stefan Moore MD [address] [place] [address] PCP - General Family Medicine 09/08/16 Operation Manager Relationship Specialty Start Date End Date [place], Stefan J, MD [address] [place] [address] PCP - General Family Medicine 09/08/16 Operation Manager Relationship Specialty Start Date End Date Stefan Moore MD [address] [place] [address] PCP - General Family Medicine 09/08/16 Operation Manager Relationship Specialty Start Date End Date Stefan Moore MD [address] [place] [address] PCP - General Family Medicine 09/08/16 Operation Manager Relationship Specialty Start Date End Date Stefan Moore MD [address] [place] [address] PCP - General Family Medicine 09/08/16 Operation Manager Relationship Specialty Start Date End Date Stefan Moore MD [address] [place] [address] PCP - General Family Medicine 09/08/16 Operation Manager Relationship Specialty Start Date End Date Stefan Moore MD [address] [place] [address] PCP - General Family Medicine 09/08/16 Operation Manager Relationship Specialty Start Date End Date Stefan Moore MD [address] [place] [address] PCP - General Family Medicine 09/08/16 Operation Manager Relationship Specialty Start Date End Date Stefan Moore MD [address] [place] [address] PCP - General Family Medicine 09/08/16 Operation Manager Relationship Specialty Start Date End Date Stefan Moore MD [address] [place] [address] PCP - General Family Medicine 09/08/16 Operation Manager Relationship Specialty Start Date End Date Stefan Moore MD [address] [facility] [place] [address] PCP - General Family Medicine 09/08/16 Operation Manager Relationship Specialty Start Date End Date Stefan Moore MD [address] [facility] [place] [address] PCP - General Family Medicine 09/08/16 Operation Manager Relationship Specialty Start Date End Date Stefan Moore MD [address] [facility] [place] [address] PCP - General Family Medicine 09/08/16 Operation Manager Relationship Specialty Start Date End Date Stefan Moore MD [address] [place] [address] PCP - General Family Medicine 09/08/16 Dion Chavarria MD [address] [place] [address] Hematology/Oncology 01/10/23 Operation Manager Relationship Specialty Start Date End Date Stefan Moore MD [address] [place] [address] PCP - General Family Medicine 09/08/16 Dion Chavarria MD [address] [place] [address] Hematology/Oncology 01/10/23 Operation Manager Relationship Specialty Start Date End Date Stefan Moore MD [address] [facility] [place] [address] PCP - General Family Medicine 09/08/16 Dion Chavarria MD [address] [place] [address] Hematology/Oncology 01/10/23 Operation Manager Relationship Specialty Start Date End Date Stefan Moore MD [address] [place] [address] PCP - General Family Medicine 09/08/16 Dion Chavarria MD [address] [place] [address] Hematology/Oncology 01/10/23 Operation Manager Relationship Specialty Start Date End Date Stefan Moore MD [address] [facility] [place] [address] PCP - General Family Medicine 09/08/16 Operation Manager Relationship Specialty Start Date End Date Stefan Moore MD [address] [facility] [place] [address] PCP - General Family Medicine 09/08/16 Dion Chavarria MD [address] [place] [address] Hematology/Oncology 01/10/23 Operation Manager Relationship Specialty Start Date End Date Stefan Moore MD [address] [place] [address] PCP - General Family Medicine 09/08/16 Dion Chavarria MD [address] [place] [address] Hematology/Oncology 01/10/23 Operation Manager Relationship Specialty Start Date End Date Stefan Moore MD [address] [place] [address] PCP - General Family Medicine 09/08/16 Dion Chavarria MD [address] [place] [address] Hematology/Oncology 01/10/23 Operation Manager Relationship Specialty Start Date End Date Stefan Moore MD [address] [facility] [place] [address] PCP - General Family Medicine 09/08/16 Dion Chavarria MD [address] [place] [address] Hematology/Oncology 01/10/23 Operation Manager Relationship Specialty Start Date End Date Stefan Moore MD [address] [place] [address] PCP - General Family Medicine 09/08/16 Dion Chavarria MD [address] [place] [address] Hematology/Oncology 01/10/23 Operation Manager Relationship Specialty Start Date End Date Stefan Moore MD [address] [place] [address] PCP - General Family Medicine 09/08/16 Dion Chavarria MD [address] [place] [address] Hematology/Oncology 01/10/23 FOR RECORDS PERTAINING TO PATIENTS [...] BE BASED ON THE PRIMARY CLINICAL RECORDS. [facility] [employer], [facility]. provides no warranty or guarantee of the accuracy or completeness of information in this document.
[2023-07-03 08:20] LABS: Absolute Lymphocyte Count 1.61 X10^3/uL (0.83-4.51); Absolute Neutrophil Count 2.8 X10^3/uL (2.0-7.7); Basophil# 0.04 X10^3/uL; Basophil% 0.8 % (0-1); Eosinophil# 0.27 X10^3/uL; Eosinophils% 5.3 % (0-5); Hematocrit 34.4 % (37-47); Lymphocyte # 1.61 X10^3/ul (0.83-4.51); Lymphocyte % 31.7 % (19-41); Mean Corp Hgb Conc 29.1 g/dL (32-36); Mean Corpuscular Hgb 26.2 pg (27.0-32.0); Mean Corpuscular Volume 90.1 fL (81-99); Mean Platelet Vol. 10.5 fl (6.2-12.0); Monocyte# 0.38 X10^3/uL; Monocyte% 7.5 % (0-10); NRBC Flagged by Analyzer 0 % (0-5); Neutrophil # 2.76 X10^3/uL (2.7-7.7); Neutrophil % 54.3 % (47-70); Platelet Count 210 K/mm3 (150-450); RBC Distribution Width CV 17.7 % (11.6-14.6); RBC Distribution Width SD 58.6 fl (35.1-43.9); Red Blood Count 3.82 M/mm3 (4.2-5.4); White Blood Count 5.1 K/mm3 (4.4-11.0)
== END ==
LOC: OLS.WHLEAS 04:00
PROVIDERS: PCP Family Medicine; Referring Provider Internal Medicine; Visit Provider Internal Medicine
DX: D51.9 Vitamin B12 deficiency anemia, unspecified (principal); I48.0 Paroxysmal atrial fibrillation; M62.561 Muscle wasting and atrophy, not elsewhere classified, right lower leg
CPT/HCPCS: 36415; 85025

== ENCOUNTER → 2023-08-02 | Outpatient (REF) | payer MEDICARE, MEDICAID, SELFPAY ==
[2023-08-02 07:21] LABS: Absolute Lymphocyte Count 1.43 X10^3/uL (0.83-4.51); Absolute Neutrophil Count 2.2 X10^3/uL (2.0-7.7); Basophil# 0.04 X10^3/uL; Basophil% 0.9 % (0-1); Eosinophil# 0.32 X10^3/uL; Eosinophils% 7.3 % (0-5); Hematocrit 35.8 % (37-47); Hemoglobin 10.5 g/dL (12.0-15.0); Lymphocyte # 1.43 X10^3/ul (0.83-4.51); Lymphocyte % 32.8 % (19-41); Mean Corp Hgb Conc 29.3 g/dL (32-36); Mean Corpuscular Hgb 26.3 pg (27.0-32.0); Mean Corpuscular Volume 89.7 fL (81-99); Monocyte# 0.39 X10^3/uL; Monocyte% 8.9 % (0-10); NRBC Flagged by Analyzer 0 % (0-5); Neutrophil # 2.15 X10^3/uL (2.7-7.7); Neutrophil % 49.4 % (47-70); Platelet Count 235 K/mm3 (150-450); RBC Distribution Width CV 19.9 % (11.6-14.6); RBC Distribution Width SD 63.4 fl (35.1-43.9); Red Blood Count 3.99 M/mm3 (4.2-5.4); White Blood Count 4.4 K/mm3 (4.4-11.0)
[2023-08-02 07:46] LABS: Ferritin 308 ng/mL (8-252); Iron 43 ug/dL (50-170); Iron Binding Capacity,Total 277 ug/dL (250-450)
== END ==
LOC: OLS.WHLEAS 04:00
PROVIDERS: PCP Family Medicine; Referring Provider Internal Medicine; Visit Provider Internal Medicine
DX: D50.9 Iron deficiency anemia, unspecified (principal)
CPT/HCPCS: 36415; 82728; 83540; 83550; 85025

== ENCOUNTER → 2023-08-09 | Outpatient (REF) | payer MEDICARE, MEDICAID, SELFPAY ==
[2023-08-09 07:49] LABS: Absolute Lymphocyte Count 1.15 X10^3/uL (0.83-4.51); Absolute Neutrophil Count 2.4 X10^3/uL (2.0-7.7); Basophil# 0.04 X10^3/uL; Eosinophil# 0.23 X10^3/uL; Eosinophils% 5.5 % (0-5); Hematocrit 35.7 % (37-47); Hemoglobin 10.6 g/dL (12.0-15.0); Lymphocyte # 1.15 X10^3/ul (0.83-4.51); Lymphocyte % 27.6 % (19-41); Mean Corp Hgb Conc 29.7 g/dL (32-36); Mean Corpuscular Hgb 26.6 pg (27.0-32.0); Mean Corpuscular Volume 89.7 fL (81-99); Mean Platelet Vol. 10.8 fl (6.2-12.0); Monocyte# 0.39 X10^3/uL; Monocyte% 9.4 % (0-10); NRBC Flagged by Analyzer 0 % (0-5); Neutrophil # 2.35 X10^3/uL (2.7-7.7); Neutrophil % 56.3 % (47-70); Platelet Count 180 K/mm3 (150-450); RBC Distribution Width CV 18.8 % (11.6-14.6); RBC Distribution Width SD 61.9 fl (35.1-43.9); Red Blood Count 3.98 M/mm3 (4.2-5.4); White Blood Count 4.2 K/mm3 (4.4-11.0)
[2023-08-09 08:00] LABS: Anion Gap 5 (5-15); BUN 43 mg/dL (7-18); BUN/Creat Ratio 31.2 RATIO (10-20); Calcium,Total 9.3 mg/dL (8.5-10.1); Chloride 105 mmol/L (98-107); Creatinine, Serum 1.38 mg/dL (0.55-1.02); EST Glomerular Filtration Rate 39 mL/min (>60); Est Glom Filt Rate - Afr Amer 47 mL/min (>60); Glucose 136 mg/dL (74-106); Potassium 4.4 mmol/L (3.5-5.1); Sodium Level 138 mmol/L (136-145)
== END ==
LOC: OLS.WHLEAS 05:00
PROVIDERS: PCP Family Medicine; Visit Provider Internal Medicine
DX: N18.9 Chronic kidney disease, unspecified (principal)
CPT/HCPCS: 36415; 80048; 85025

== ENCOUNTER → 2023-08-16 | Outpatient (REF) | payer MEDICARE, SELFPAY ==
[2023-08-16 07:50] LABS: Absolute Lymphocyte Count 1.32 X10^3/uL (0.83-4.51); Absolute Neutrophil Count 1.9 X10^3/uL (2.0-7.7); Basophil# 0.05 X10^3/uL; Basophil% 1.3 % (0-1); Eosinophil# 0.25 X10^3/uL; Eosinophils% 6.5 % (0-5); Hematocrit 34.5 % (37-47); Hemoglobin 10.4 g/dL (12.0-15.0); Lymphocyte # 1.32 X10^3/ul (0.83-4.51); Lymphocyte % 34.6 % (19-41); Mean Corp Hgb Conc 30.1 g/dL (32-36); Mean Corpuscular Hgb 26.4 pg (27.0-32.0); Mean Corpuscular Volume 87.6 fL (81-99); Mean Platelet Vol. 10.3 fl (6.2-12.0); Monocyte# 0.28 X10^3/uL; Monocyte% 7.3 % (0-10); NRBC Flagged by Analyzer 0 % (0-5); Neutrophil # 1.91 X10^3/uL (2.7-7.7); Platelet Count 179 K/mm3 (150-450); RBC Distribution Width CV 18.4 % (11.6-14.6); RBC Distribution Width SD 58.7 fl (35.1-43.9); Red Blood Count 3.94 M/mm3 (4.2-5.4); White Blood Count 3.8 K/mm3 (4.4-11.0)
== END ==
LOC: OLS.WHLEAS 05:00
PROVIDERS: PCP Family Medicine; Visit Provider Internal Medicine
DX: D52.9 Folate deficiency anemia, unspecified (principal)
CPT/HCPCS: 36415; 85025

== ENCOUNTER → 2023-08-23 | Outpatient (REF) | payer MEDICARE, SELFPAY ==
[2023-08-23 07:37] LABS: Absolute Lymphocyte Count 1.49 X10^3/uL (0.83-4.51); Absolute Neutrophil Count 2.6 X10^3/uL (2.0-7.7); Basophil# 0.03 X10^3/uL; Basophil% 0.7 % (0-1); Eosinophil# 0.17 X10^3/uL; Eosinophils% 3.7 % (0-5); Hematocrit 33.9 % (37-47); Hemoglobin 10.3 g/dL (12.0-15.0); Lymphocyte # 1.49 X10^3/ul (0.83-4.51); Lymphocyte % 32.7 % (19-41); Mean Corp Hgb Conc 30.4 g/dL (32-36); Mean Corpuscular Hgb 26.7 pg (27.0-32.0); Mean Corpuscular Volume 87.8 fL (81-99); Mean Platelet Vol. 10.3 fl (6.2-12.0); Monocyte# 0.28 X10^3/uL; Monocyte% 6.1 % (0-10); NRBC Flagged by Analyzer 0 % (0-5); Neutrophil # 2.58 X10^3/uL (2.7-7.7); Neutrophil % 56.6 % (47-70); Platelet Count 194 K/mm3 (150-450); RBC Distribution Width CV 18.5 % (11.6-14.6); RBC Distribution Width SD 58.8 fl (35.1-43.9); Red Blood Count 3.86 M/mm3 (4.2-5.4); White Blood Count 4.6 K/mm3 (4.4-11.0)
[2023-08-23 07:47] LABS: Anion Gap 6 (5-15); BUN 38 mg/dL (7-18); BUN/Creat Ratio 31.9 RATIO (10-20); Calcium,Total 9.1 mg/dL (8.5-10.1); Chloride 105 mmol/L (98-107); Creatinine, Serum 1.19 mg/dL (0.55-1.02); EST Glomerular Filtration Rate 46 mL/min (>60); Est Glom Filt Rate - Afr Amer 56 mL/min (>60); Glucose 120 mg/dL (74-106); Potassium 4.8 mmol/L (3.5-5.1); Sodium Level 139 mmol/L (136-145)
== END ==
LOC: OLS.WHLEAS 04:00
PROVIDERS: PCP Family Medicine; Referring Provider Internal Medicine; Visit Provider Internal Medicine
DX: N18.9 Chronic kidney disease, unspecified (principal); D52.9 Folate deficiency anemia, unspecified
CPT/HCPCS: 36415; 80048; 85025

== ENCOUNTER → 2023-08-29 | Outpatient (REF) | payer MEDICARE, SELFPAY ==
[2023-08-29 08:59] LABS: Absolute Lymphocyte Count 1.39 X10^3/uL (0.83-4.51); Absolute Neutrophil Count 3.7 X10^3/uL (2.0-7.7); Basophil# 0.04 X10^3/uL; Basophil% 0.7 % (0-1); Eosinophil# 0.19 X10^3/uL; Eosinophils% 3.2 % (0-5); Hematocrit 34.3 % (37-47); Hemoglobin 10.2 g/dL (12.0-15.0); Lymphocyte # 1.39 X10^3/ul (0.83-4.51); Lymphocyte % 23.5 % (19-41); Mean Corp Hgb Conc 29.7 g/dL (32-36); Mean Corpuscular Hgb 26.1 pg (27.0-32.0); Mean Corpuscular Volume 87.7 fL (81-99); Mean Platelet Vol. 10.9 fl (6.2-12.0); Monocyte# 0.53 X10^3/uL; NRBC Flagged by Analyzer 0 % (0-5); Neutrophil # 3.73 X10^3/uL (2.7-7.7); Neutrophil % 63.1 % (47-70); Platelet Count 204 K/mm3 (150-450); RBC Distribution Width CV 18.4 % (11.6-14.6); RBC Distribution Width SD 58.5 fl (35.1-43.9); Red Blood Count 3.91 M/mm3 (4.2-5.4); White Blood Count 5.9 K/mm3 (4.4-11.0)
[2023-08-29 09:24] LABS: Ferritin 413 ng/mL (8-252)
== END ==
LOC: OLS.WHLEAS 05:00
PROVIDERS: PCP Family Medicine; Visit Provider Internal Medicine
DX: D50.9 Iron deficiency anemia, unspecified (principal)
CPT/HCPCS: 36415; 82728; 83550; 85025

== ENCOUNTER → 2023-09-06 | Outpatient (REF) | payer MEDICARE, SELFPAY ==
[2023-09-06 08:30] LABS: Absolute Lymphocyte Count 1.56 X10^3/uL (0.83-4.51); Basophil# 0.03 X10^3/uL; Eosinophil# 0.15 X10^3/uL; Hematocrit 32.8 % (37-47); Lymphocyte # 1.56 X10^3/ul (0.83-4.51); Lymphocyte % 52.3 % (19-41); Mean Corp Hgb Conc 30.5 g/dL (32-36); Mean Corpuscular Hgb 26.6 pg (27.0-32.0); Mean Corpuscular Volume 87.2 fL (81-99); Mean Platelet Vol. 9.9 fl (6.2-12.0); Monocyte# 0.21 X10^3/uL; NRBC Flagged by Analyzer 0 % (0-5); Neutrophil # 1.01 X10^3/uL (2.7-7.7); POSITIVE MORPHOLOGY YES; Platelet Count 162 K/mm3 (150-450); RBC Distribution Width CV 17.9 % (11.6-14.6); RBC Distribution Width SD 57.5 fl (35.1-43.9); Red Blood Count 3.76 M/mm3 (4.2-5.4)
[2023-09-06 08:31] LABS: Differential Indicated SCAN CRITERIA MET
[2023-09-06 08:47] LABS: Anion Gap 6 (5-15); BUN 33 mg/dL (7-18); BUN/Creat Ratio 29.2 RATIO (10-20); Calcium,Total 8.7 mg/dL (8.5-10.1); Chloride 105 mmol/L (98-107); Creatinine, Serum 1.13 mg/dL (0.55-1.02); EST Glomerular Filtration Rate 49 mL/min (>60); Est Glom Filt Rate - Afr Amer 59 mL/min (>60); Glucose 112 mg/dL (74-106); Potassium 4.4 mmol/L (3.5-5.1); Sodium Level 138 mmol/L (136-145)
[2023-09-06 09:15] LABS: Differential Comment SCANNED; Reactive Lymphocyte 1+
== END ==
LOC: OLS.WHLEAS 04:00
PROVIDERS: PCP Family Medicine; Referring Provider Internal Medicine; Visit Provider Internal Medicine
DX: N18.9 Chronic kidney disease, unspecified (principal); D52.9 Folate deficiency anemia, unspecified
CPT/HCPCS: 36415; 80048; 85025

== ENCOUNTER → 2023-09-13 | Outpatient (REF) | payer MEDICARE, SELFPAY ==
[2023-09-13 06:45] LABS: Absolute Lymphocyte Count 1.42 X10^3/uL (0.83-4.51); Absolute Neutrophil Count 2.7 X10^3/uL (2.0-7.7); Basophil# 0.04 X10^3/uL; Basophil% 0.9 % (0-1); Eosinophil# 0.18 X10^3/uL; Eosinophils% 3.9 % (0-5); Hematocrit 32.2 % (37-47); Hemoglobin 9.7 g/dL (12.0-15.0); Lymphocyte # 1.42 X10^3/ul (0.83-4.51); Lymphocyte % 30.5 % (19-41); Mean Corp Hgb Conc 30.1 g/dL (32-36); Mean Corpuscular Hgb 26.2 pg (27.0-32.0); Monocyte# 0.26 X10^3/uL; Monocyte% 5.6 % (0-10); NRBC Flagged by Analyzer 0 % (0-5); Neutrophil # 2.73 X10^3/uL (2.7-7.7); Neutrophil % 58.5 % (47-70); Platelet Count 226 K/mm3 (150-450); RBC Distribution Width CV 18.3 % (11.6-14.6); White Blood Count 4.7 K/mm3 (4.4-11.0)
== END ==
LOC: OLS.WHLEAS 04:00
PROVIDERS: PCP Family Medicine; Referring Provider Internal Medicine; Visit Provider Internal Medicine
DX: D52.9 Folate deficiency anemia, unspecified (principal)
CPT/HCPCS: 36415; 85025

== ENCOUNTER → 2023-09-20 | Outpatient (REF) | payer MEDICARE, SELFPAY ==
[2023-09-20 08:28] LABS: Absolute Lymphocyte Count 1.37 X10^3/uL (0.83-4.51); Absolute Neutrophil Count 3.2 X10^3/uL (2.0-7.7); Basophil# 0.05 X10^3/uL; Basophil% 0.9 % (0-1); Eosinophils% 3.7 % (0-5); Hemoglobin 10.5 g/dL (12.0-15.0); Lymphocyte # 1.37 X10^3/ul (0.83-4.51); Lymphocyte % 25.6 % (19-41); Mean Corp Hgb Conc 29.2 g/dL (32-36); Mean Corpuscular Hgb 26.2 pg (27.0-32.0); Mean Corpuscular Volume 89.8 fL (81-99); Mean Platelet Vol. 9.7 fl (6.2-12.0); Monocyte# 0.51 X10^3/uL; Monocyte% 9.5 % (0-10); NRBC Flagged by Analyzer 0 % (0-5); Neutrophil # 3.16 X10^3/uL (2.7-7.7); Neutrophil % 59.2 % (47-70); Platelet Count 250 K/mm3 (150-450); RBC Distribution Width CV 19.7 % (11.6-14.6); RBC Distribution Width SD 62.9 fl (35.1-43.9); Red Blood Count 4.01 M/mm3 (4.2-5.4); White Blood Count 5.4 K/mm3 (4.4-11.0)
[2023-09-20 08:59] LABS: Anion Gap 5 (5-15); BUN 35 mg/dL (7-18); BUN/Creat Ratio 25.5 RATIO (10-20); Chloride 102 mmol/L (98-107); Creatinine, Serum 1.37 mg/dL (0.55-1.02); EST Glomerular Filtration Rate 39 mL/min (>60); Est Glom Filt Rate - Afr Amer 47 mL/min (>60); Glucose 128 mg/dL (74-106); Potassium 4.3 mmol/L (3.5-5.1); Sodium Level 137 mmol/L (136-145)
== END ==
LOC: OLS.WHLEAS 05:00
PROVIDERS: PCP Family Medicine; Visit Provider Internal Medicine
DX: N18.9 Chronic kidney disease, unspecified (principal)
CPT/HCPCS: 36415; 80048; 85025

== ENCOUNTER → 2023-09-27 | Outpatient (REF) | payer MEDICARE, SELFPAY ==
[2023-09-27 08:40] LABS: Absolute Lymphocyte Count 1.44 X10^3/uL (0.83-4.51); Absolute Neutrophil Count 2.4 X10^3/uL (2.0-7.7); Basophil# 0.04 X10^3/uL; Basophil% 0.9 % (0-1); Eosinophil# 0.22 X10^3/uL; Eosinophils% 4.8 % (0-5); Hematocrit 33.8 % (37-47); Hemoglobin 10.3 g/dL (12.0-15.0); Lymphocyte # 1.44 X10^3/ul (0.83-4.51); Lymphocyte % 31.6 % (19-41); Mean Corp Hgb Conc 30.5 g/dL (32-36); Mean Corpuscular Hgb 26.7 pg (27.0-32.0); Mean Corpuscular Volume 87.6 fL (81-99); Mean Platelet Vol. 9.7 fl (6.2-12.0); Monocyte# 0.39 X10^3/uL; Monocyte% 8.6 % (0-10); NRBC Flagged by Analyzer 0 % (0-5); Neutrophil # 2.44 X10^3/uL (2.7-7.7); Neutrophil % 53.7 % (47-70); Platelet Count 187 K/mm3 (150-450); RBC Distribution Width CV 19.6 % (11.6-14.6); RBC Distribution Width SD 62.5 fl (35.1-43.9); Red Blood Count 3.86 M/mm3 (4.2-5.4); White Blood Count 4.6 K/mm3 (4.4-11.0)
== END ==
LOC: OLS.WHLEAS 04:00
PROVIDERS: PCP Family Medicine; Referring Provider Internal Medicine; Visit Provider Internal Medicine
DX: D52.9 Folate deficiency anemia, unspecified (principal)
CPT/HCPCS: 36415; 85025

== ENCOUNTER → 2023-10-04 | Outpatient (REF) | payer MEDICARE, SELFPAY ==
[2023-10-04 07:40] LABS: Absolute Lymphocyte Count 1.32 X10^3/uL (0.83-4.51); Absolute Neutrophil Count 2.6 X10^3/uL (2.0-7.7); Basophil# 0.03 X10^3/uL; Basophil% 0.7 % (0-1); Eosinophil# 0.23 X10^3/uL; Hematocrit 34.1 % (37-47); Hemoglobin 10.3 g/dL (12.0-15.0); Lymphocyte # 1.32 X10^3/ul (0.83-4.51); Lymphocyte % 28.8 % (19-41); Mean Corp Hgb Conc 30.2 g/dL (32-36); Mean Corpuscular Hgb 26.8 pg (27.0-32.0); Mean Corpuscular Volume 88.6 fL (81-99); Mean Platelet Vol. 9.8 fl (6.2-12.0); Monocyte# 0.35 X10^3/uL; Monocyte% 7.6 % (0-10); NRBC Flagged by Analyzer 0 % (0-5); Neutrophil # 2.63 X10^3/uL (2.7-7.7); Neutrophil % 57.5 % (47-70); Platelet Count 196 K/mm3 (150-450); RBC Distribution Width CV 18.8 % (11.6-14.6); RBC Distribution Width SD 61.2 fl (35.1-43.9); Red Blood Count 3.85 M/mm3 (4.2-5.4); White Blood Count 4.6 K/mm3 (4.4-11.0)
[2023-10-04 07:51] LABS: Anion Gap 5 (5-15); BUN 44 mg/dL (7-18); BUN/Creat Ratio 34.1 RATIO (10-20); Calcium,Total 8.8 mg/dL (8.5-10.1); Chloride 103 mmol/L (98-107); Creatinine, Serum 1.29 mg/dL (0.55-1.02); EST Glomerular Filtration Rate 42 mL/min (>60); Est Glom Filt Rate - Afr Amer 51 mL/min (>60); Glucose 130 mg/dL (74-106); Potassium 4.4 mmol/L (3.5-5.1); Sodium Level 136 mmol/L (136-145)
== END ==
LOC: OLS.WHLEAS 05:00
PROVIDERS: PCP Family Medicine; Visit Provider Internal Medicine
DX: N18.9 Chronic kidney disease, unspecified (principal); D52.9 Folate deficiency anemia, unspecified
CPT/HCPCS: 36415; 80048; 85025

== ENCOUNTER → 2024-01-02 | Outpatient (CLI) | payer MEDICARE, SELFPAY ==
--- NOTE | 2024-01-02 14:50 | RAD_ITS ---
STUDY: X-RAY CHEST REASON FOR EXAM: Female, 83 years old. Amiodarone therapy fdc TECHNIQUE: PA and lateral views of the chest. COMPARISON: 02/13/2023 FINDINGS: The lungs are clear and expanded. There is no demonstrated pleural abnormality. Normal size heart. Normal mediastinum and radames. Normal visualized pulmonary arteries. Normal visualized aortic arch and descending thoracic aorta. Normal visualized thoracic spine. Normal visualized ribs, clavicles, and shoulders. There is no demonstrated abnormality of the visualized soft tissue structures of the upper abdomen. RAD/Chest PA and Lateral IMPRESSION: Normal x-ray examination of the chest. Electronically Signed: Aureilo Grossman MD at 8:34 EDT ,
[2024-01-02 17:05] LABS: AST(SGOT) 13 U/L (15-37); Alanine Aminotransfer ALT/SGPT 11 U/L (13-56); Albumin, Serum 3.7 g/dL (3.2-5.0); Alkaline Phosphatase 135 U/L (45-117); Bilirubin, Direct 0.11 mg/dL (0.00-0.30); Globulin 3.6 g/dL (2.2-4.2); Protein, Total 7.3 g/dL (6.4-8.2); T4 Total, Thyroxin 12.7 ug/dL (4.8-13.9); Thyroid Stim Hormone (TSH) 1.96 uIU/mL (0.358-3.74)
== END | disposition home or self-care (01) ==
LOC: RAD 14:46 → LAB 15:17
PROVIDERS: PCP Family Medicine; Referring Provider Internal Medicine Cardiovascular Disease; Visit Provider Internal Medicine Cardiovascular Disease
DX: Z51.81 Encounter for therapeutic drug level monitoring (principal); Z79.899 Other long term (current) drug therapy
CPT/HCPCS: 36415; 71046; 80076; 84436; 84443

== ENCOUNTER 2024-04-30 11:00 | Outpatient (RCR) | payer MEDICARE, SELFPAY ==
--- NOTE | 2024-01-30 15:04 | HP.PTEVAL ---
Patient's Visit Information Visit Information Visit Information: YENNIFER JARAMILLO is a 83 year old F referred to Physical Therapy by Dr. Stefan Gordon MD with a diagnosis of Ataxia. 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 Pt notes she had to have a T TKA revision performed at that time. Pt notes she had Home health after her surgery and was doing well. However, pt notes she has fallen 5 times in the past several months for various reasons, but usually occurs when she is walking and attempts to turn. Pt reports her feet are numb at this time. Pt reports she has never had outpatient PT for this case and is excited to be here today. Pt is able to negotiate small steps, one step at a time, but is not able to negotiate normal stairs at this time. 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 Pt reports no pain at this time. Pty is in no pain at this time Objective Objective: TU seconds Gait: Pt is able to ambulate approximately 120 feet until needing to rest secondary to fatigue. Pt ambulates with WW. Sit to stand: Pt must use hands, and is able to perform 2 sit to stand transfers in 30 sec MMT: B LE's are grossly 4/5 throughout and weak. Balance/Special Test Scores Lower Extremity Functional Score: 28 Goals Goal 1:: Pt will perform the TUG test in under 30 seconds to aid with community mobility Goal Time Frame: 4-6 Weeks Goal 2:: Pt will perform 6 sit to stand transfers in 30 sec to aid with I at home. Goal Time Frame: 4-6 Weeks Goal 3:: I with HEP Goal Time Frame: 4-6 Weeks Goal 4:: Pt will be able to ambulate 300 feet with CGAx1 to aid with community mobility Goal Time Frame: 4-6 Weeks Rehabilitation Potential Physical Therapy Diagnosis: Pt has B LE weakness, difficulty with gait, and a Hx of falls secondary to Rehabilitation Potential: Good Anticipated Interventions Patient/Client Instruction: Educate patient on: Condition and Plan of Care For the Purpose of:: To improve self management Therapeutic Exercise to Include: Strength training, Endurance training, Balance training, Gait and locomotor training and Dynamic Lumbar Stabilization For the Purpose of:: To decrease pain, To increase ROM and To improve muscle performance and motor function Text: Thank you for the opportunity to evaluate your patient. For Medicare and Medicare HMO plans, please review the plan of care and approve it. It will need to be FAXED BACK to us at [phone] for Medicare purposes. For Medicare only, by signing this I certify the plan of care. Please let me know if there are questions or concerns regarding this plan of care. Physician Signature: Date:
--- NOTE | 2024-04-30 11:58 | HP.PTDCSUM_ITS ---
Discharge Summary D/C summary: It has been my pleasure to treat YENNIFER JARAMILLO referred by Dr. Stefan Gordon MD, with the diagnosis of Ataxia for a total of 26 visit(s). Discharge Date: Please see the following information for a summary of their discharge status. Subjective Subjective: I am walking much better now and getting out of my chair easier. Overall Improvement % Improvement: 80 Objective Objective/Function: TU sec Sit to stands 5 in 30 sec Pt is I with HEP and all IADL's Goals Goal 1:: Pt will perform the TUG test in under 30 seconds to aid with community mobility Goal Progress: Progressing Goal 2:: Pt will perform 6 sit to stand transfers in 30 sec to aid with I at home. Goal Progress: Progressing Goal 3:: I with HEP Goal Progress: Goal Met Goal 4:: Pt will be able to ambulate 300 feet with CGAx1 to aid with community mobility Goal Progress: Goal Met Goal 5:: Pt will be able to perform IADL's without being limited secondary to unsteadiness Goal Progress: Goal Met Plan Plan: Discharge to [facility] D/C Information d/c sentence: If there are questions or concerns regarding this patient's physical therapy, please feel free to call me at [phone]. Thank you for the referral of this patient. Sincerely, Lior White, PT, ATC Balance/Gait/Functional tests Balance/Special Test Scores Lower Extremity Functional Score: 29 Improvement % Improvement: 80
== END 2024-04-30 19:00 | disposition home or self-care (01) ==
LOC: PT 11:00
PROVIDERS: PCP Family Medicine; Referring Provider Family Medicine; Visit Provider Family Medicine
DX: R27.0 Ataxia, unspecified (principal)
CPT/HCPCS: 97110; 97116; 97161; 97530

== ENCOUNTER → 2024-08-19 | Outpatient (CLI) | payer MEDICARE, SELFPAY ==
--- NOTE | 2024-08-19 07:32 | RAD_ITS ---
PROCEDURE: INJ/ASP LEROY JT SHOULD/HIP/KNEE REASON FOR EXAM: PRIMARY OSTEOARTHRITIS LEFT SHOULDER TECHNIQUE: The procedure as well as the benefits and possible complications including infection and bleeding were explained to the patient. Informed consent was obtained. The patient was in the supine position. The overlying skin was prepped and draped in usual sterile fashion. Following local anesthetic application and under direct fluoroscopic guidance, a 22 gauge spinal needle was placed into the shoulder joint. 2 cc of Isovue three hundred was injected for confirmation. Following this, 12 mg of betamethasone and 4 cc of 1% lidocaine was injected. The patient tolerated the procedure well. Fluoroscopy: 50 seconds. One image was obtained. COMPARISON: None FINDINGS: Successful left shoulder arthrogram RAD/Inj/Asp Leroy Jt Should/Hip/Knee IMPRESSION: Successful left shoulder arthrogram with injection of 12 mg of betamethasone an d 4 cc of 1% lidocaine. The patient tolerated the procedure well. No immediate complication was noted. Reading Location: [facility]-
[2024-08-19] MEDS: Lidocaine 2% (5ml sdv) 5 ML VIAL.MPF INFILT (08:07)
[2024-08-19] MEDS: Betamethasone/Betamethasone 30 MG/5 ML Vial 12 MG INTRAARTIC (08:08)
[2024-08-19] MEDS: Lidocaine 1% (5 ml sdv) 5 ML Vial 4 ML INFILT (08:09)
== END | disposition home or self-care (01) ==
PROVIDERS: PCP Family Medicine; Referring Provider Specialist; Visit Provider Specialist
DX: M19.012 Primary osteoarthritis, left shoulder (principal)
CPT/HCPCS: 23350; 20610; 77002; Q9967; J0702

== ENCOUNTER 2025-01-24 11:30 | Outpatient (RCR) | payer MEDICARE, SELFPAY ==
--- NOTE | 2024-11-25 12:46 | HP.PTEVAL ---
Patient's Visit Information Visit Information Visit Information: YENNIFER JARAMILLO is a 84 year old F referred to Physical Therapy by HERO Maynard with a diagnosis of L shoulder OA. Date of Evaluation: 11/25/24 Physical Therapist: Lior White, PT, ATC Visit Plan Frequency: 2-3x /Week Duration: 4-6 Weeks Plan: L shoulder rotator cuff strengthening, scap stab ex's, UBE, and HEP Subjective Subjective: Pt reports her L shoulder has been intermittently sore for a while. Pt reports her L shoulder usually hurts when she is sleeping. Pt also has pain when she attempts to reach forward with her L arm. Pt reports she has had x-rays which revealed a lot of degenerative changes. Pt also notes she hasd an injection into her L shoulder that did not help. Pt is R hand dominant. Pt reports she has sleep difficulty at this time secondary to pain. Pt denies any tingling or numbness in her L UE. Pt reports she is unable to reach over her head at this time which makes putting dishes away. L shoulder pain is 0/10 while sitting here in the clinic, but elevates to 2/10 at worst. Pain L shoulder: Pain Intensity (Out of 10): 0 Pain Intensity Range: 2 Objective Objective: Neuro: B UE sensation is WNL to light touch. Palpation: Pt is sore on the lateral aspect of L shoulder. Crepitus with AROM. No obvious deformity ROM: R shoulder flex= 105, abd= 70, ER= 60, IR= WFL;L shoulder flex= 105, abd= 90, ER= 55, IR= WFL MMT: R shoulder flex= 0, abd= 4, ER= 0, IR= 6 #F ;L shoulder flex= 6, abd= 11, ER= 7, IR= 9 #F Special tests: pos HK Balance/Special Test Scores Quick DASH Score: 63.6350 Goals Goal 1:: Decrease L shoulder pain x 50% to aid with sleep Goal Time Frame: 4-6 Weeks Goal 2:: Increase L shoulder flex and abd ROM x 20 degrees to aid with overhead reaching. Goal Time Frame: 4-6 Weeks Goal 3:: Increase L shoulder strength x 5#F to aid with IADL's Goal Time Frame: 4-6 Weeks Goal 4:: I with HEP Goal Time Frame: 4-6 Weeks Rehabilitation Potential Physical Therapy Diagnosis: Pt has L shoulder pain and weakness secondary to L shoulder OA Rehabilitation Potential: Good Anticipated Interventions Patient/Client Instruction: Educate patient on: Condition and Plan of Care For the Purpose of:: To improve self management Therapeutic Exercise to Include: Strength training, Endurance training, Postural training and Scapular Strength/Stabilization For the Purpose of:: To decrease pain, To increase ROM and To improve muscle performance and motor function Cryotherapy (ice pack, ice massage): Yes For the Purpose of:: To decrease pain Text: Thank you for the opportunity to evaluate your patient. For Medicare and Medicare HMO plans, please review the plan of care and approve it. It will need to be FAXED BACK to us at [phone] for Medicare purposes. For Medicare only, by signing this I certify the plan of care. Please let me know if there are questions or concerns regarding this plan of care. Physician Signature: Date:
--- NOTE | 2024-12-27 12:32 | HP.PTREVAL ---
Re-Evaluation Intro: HERO Maynard, It has been my pleasure to treat YENNIFER JARAMILLO over the last 8 visits for L shoulder OA. Please see the progress note below for an update on the physical therapy plan of care! Subjective Subjective: I dont have any pain today Objective Objective/Function: L shoulder pain 0/10, increases to 4/10 at worst L shoulder ROM: flex= 110, abd= 90, IR= WNL, ER= 30 degrees L shoulder MMT: flex= 5, abd= 11, IR= 12, ER= 9 #F Pt has made minimal improvements at this time, likely due to an extended illness in the middle of her sessions limiting her progress Plan Plan Plan: 12/27/24- Cont with L shoulder rotator cuff strengthening, scap stab ex's, UBE, and HEP Balance/Gait/Functional tests Balance/Special Test Scores Quick DASH Score: 63.6350 Goals Goals Goal 1:: Decrease L shoulder pain x 50% to aid with sleep Goal Time Frame: 4-6 Weeks Goal 2:: Increase L shoulder flex and abd ROM x 20 degrees to aid with overhead reaching. Goal Time Frame: 4-6 Weeks Goal 3:: Increase L shoulder strength x 5#F to aid with IADL's Goal Time Frame: 4-6 Weeks Goal 4:: I with HEP Goal Time Frame: 4-6 Weeks Anticipated Interventions Anticipated Interventions Patient/Client Instruction: Educate patient on: Condition and Plan of Care For the Purpose of:: To improve self management Therapeutic Exercise to Include: Strength training, Endurance training, Postural training and Scapular Strength/Stabilization For the Purpose of:: To decrease pain, To increase ROM and To improve muscle performance and motor function Cryotherapy (ice pack, ice massage): Yes For the Purpose of:: To decrease pain Re-Evaluation Ending Re-evaluation ending: Please do not hesitate to contact me at [phone] by phone or if you have questions or concerns regarding this new plan of care! Sincerely, Lior White, PT, ATC
== END 2025-01-24 19:00 | disposition home or self-care (01) ==
LOC: PT 11:30
PROVIDERS: PCP Family Medicine; Referring Provider Physician Assistant; Visit Provider Physician Assistant
DX: M19.012 Primary osteoarthritis, left shoulder (principal)
CPT/HCPCS: 97110; 97161; 97530